=== PATIENT | male | born 1940 | race Caucasian/White ===

== ENCOUNTER → 2017-02-28 | Outpatient (CLI) | payer MEDICARE, BC ==
--- NOTE | 2017-02-28 15:59 | XR ---
EXAMINATION TYPE: XR ribs RT DATE OF EXAM: 02/28/2017 COMPARISON: Chest x-ray March 25, 2013 HISTORY: Right lateral lower rib pain after fall injury. TECHNIQUE: A frontal and oblique images of the right-sided ribs are acquired. FINDINGS: No acute displaced right-sided rib fractures are evident. Visualized right lung is clear. O verlying soft tissue is unremarkable. Abdominal aortic metallic stent graft is partially imaged. IMPRESSION: No acute displaced right-sided rib fractures are seen.
--- NOTE | 2017-03-01 08:18 | XR ---
EXAMINATION TYPE: XR thoracic spine 2V DATE OF EXAM: 02/28/2017 COMPARISON: NONE HISTORY: Low back pain, pain after fall TECHNIQUE: 2 view thoracic spine FINDINGS: Vertebral body alignment appears preserved. Mild narrowing of disc space in the lower thora cic spine is present. Vertebral body heights appear preserved. Spondylosis is present. Some scoliosis is in the frontal projection. There are 12 thoracic type vertebral bodies. The pedicles are intact. IMPRESSION: 1. No acute osseous abnormality. 2. Mild degenerative disc changes.
== END | disposition home or self-care (01) ==
LOC: RADXRMAIN 15:22
PROVIDERS: ATTEND Physical Medicine & Rehabilitation
DX: M51.34 Other intervertebral disc degeneration, thoracic region (principal); M15.9 Polyosteoarthritis, unspecified; Q67.5 Congenital deformity of spine; M47.817 Spondylosis without myelopathy or radiculopathy, lumbosacral region; M54.16 Radiculopathy, lumbar region
CPT/HCPCS: 72070

== ENCOUNTER → 2017-10-02 | Outpatient (CLI) | payer MEDICARE, BC ==
--- NOTE | 2017-10-02 14:52 | XR ---
EXAMINATION TYPE: XR chest 2V DATE OF EXAM: 10/02/2017 COMPARISON: 03/25/2013 HISTORY: Shortness of breath TECHNIQUE: Frontal and lateral views of the chest are obtained. FINDINGS: Scattered senescent parenchymal changes noted. Hyperinflation compatible with COPD. No evidence for infiltrate. No evidence for atelectasis. Heart size is stable. Mediastinal structures are stable and grossly unremarkable. No evidence for hilar prominence. Degenerative changes dorsal spine. IMPRESSION: 1. No evidence for acute pulmonary disease.
== END | disposition home or self-care (01) ==
LOC: RADXRMAIN 14:35
PROVIDERS: ATTEND Pediatrics
DX: R07.82 Intercostal pain (principal)
CPT/HCPCS: 71046

== ENCOUNTER 2018-05-12 21:08 | Observation (INO) | payer MEDICARE, BC ==
[2018-05-12 21:23] LABS: Glucose,Whole Blood 133 mg/dL (75-99)
--- NOTE | 2018-05-12 21:25 | ED ---
Altered Mental Status HPI - General Chief Complaint: Altered Mental Status Stated Complaint: MED REACTION Time Seen by Provider: 05/12/18 21:20 Source: EMS Mode of arrival: EMS Limitations: no limitations - History of Present Illness Initial Comments: Jace is an 78-year-old male who is brought to the emergency department today by his son for evaluation of altered mental status. Son reports that he visited them on and his father was doing well. The patient reports that on Sunday he got in the shower but he got very dizzy and was unable to get out of the shower so he laid down on the bathtub. Son reports that he found his father in the bathtub today, he was covered in his own urine. The son helped him cleanup and brought him to the ER for evaluation. Son reports that his father seems to be very confused, seems to be hallucinating, is saying things that don't make sense and his speech seems very slurred. The patient and his son are also accompanied by the patient's however she has Alzheimer 's and offers no meaningful history. The patient seems confused, he doesn't understand why he is here. He states that he is not wearing his hearing aids but that he can hear all of the sound effects. He also reports that he was seeing people on the belle in his bathroom. - Related Data Home Medications Medication Instructions Recorded Confirmed Cyclobenzaprine [Flexeril] 10 mg PO HS 01/11/14 10/08/14 Glimepiride [Amaryl] 4 mg PO DAILY 01/11/14 10/08/14 Propranolol [Inderal] 40 mg PO BID 01/11/14 10/08/14 Simvastatin [Zocor] 40 mg PO DAILY 01/11/14 10/08/14 traZODone HCL 200 mg PO HS 01/11/14 10/08/14 Fluticasone Propionate [Flonase 1 spray EA NOSTRIL DAILY 10/06/14 10/08/14 Allergy Relief] metFORMIN HCL [Glucophage] 1,000 mg PO BID 10/06/14 10/08/14 Allergies Allergy/AdvReac Type Severity Reaction Status Date / Time amoxicillin [Amoxicillin] Allergy Nausea & Verified 10/06/14 15:42 Vomiting & Diarrhea Review of Systems ROS Statement: Those systems with pertinent positive or pertinent negative responses have been documented in the HPI. ROS Other: All systems not noted in ROS Statement are negative. Limitations: ROS unobtainable due to patients medical condition Past Medical History Past Medical History: Cancer, Diabetes Mellitus, Hearing Disorder / Deafness, Hypertension, Rheumatoid Arthritis (RA) Additional Past Medical History / Comment(s): chronic headaches due to head injury years ago, AAA-dr. gamez, DJD,back pain, skin cancer, blood in stool , History of Any Multi-Drug Resistant Organisms: MRSA, VRE Date of last positivie culture/infection: patient does not know MDRO Source:: patient does not know Past Surgical History: Adenoidectomy, Joint Replacement, Tonsillectomy Additional Past Surgical History / Comment(s): left hip, left knee replaced, Past Anesthesia/Blood Transfusion Reactions: No Reported Reaction Past Psychological History: No Psychological Hx Reported Smoking Status: Former smoker General Exam - General Exam Comments Initial Comments: Physical Exam GENERAL: Elderly male in no acute distress HENT: Normocephalic, Atraumatic. EYES: EOMI Right pupil is approximately 1 mm larger than left however both are reactive to light and accommodation PULMONARY: Unlabored respirations. No audible rales rhonchi or wheezing was noted. CARDIOVASCULAR: Bradycardic, regular, no murmurs Warm and well-perfused extremities ABDOMEN: Soft and nontender with normal bowel sounds. SKIN: Skin is clear with no lesions or rashes and otherwise unremarkable. : Deferred NEUROLOGIC: Patient is alert and oriented x3. Moving all extremities spontaneously MUSCULOSKELETAL: Normal extremities with adequate strength and full range of motion. No lower extremity swelling or edema. No calf tenderness. PSYCHIATRIC: Normal psychiatric evaluation. Limitations: no limitations Limitations: no limitations Course Vital Signs 05/12/18 05/12/18 21:10 22:48 Temperature 97.7 F Pulse Rate 59 L 58 L Respiratory 18 17 Rate Blood Pressure 184/70 144/70 O2 Sat by Pulse 95 100 Oximetry Medical Decision Making - Medical Decision Making The patient was seen and evaluated history is obtained from the patient as well as his son at bedside History is significantly limited as the patient appears to be confused, his with Alzheimer's offers no meaningful history, the son last saw the patient on and it is concerning that the patient may have been laying in a bathtub since Sunday Labs and imaging were ordered Labs with no significant abnormalities, creatinine kinase is mildly elevated which is consistent with the history of the patient laying in a single position for multiple days CT head with no abnormalities suggestive of acute intracranial process Patient has been unable to urinate, patient was straight cathed for urinalysis Urinalysis no evidence of acute infection Considering the patient's altered mental status, slurred speech and don't feel that he is safe to go home, I do feel he does warrant further evaluation. Patient and his son are agreeable to this. Admission orders were placed with a consult to neurology for the slurred speech and altered mental status. - Lab Data Result diagrams: 05/12/18 21:26 05/12/18 21:26 Lab Results 05/12/18 05/12/18 05/12/18 Range/Units 21:22 21:26 21:26 WBC 9.3 (3.8-10.6) k/uL RBC 5.11 (4.30-5.90) m/uL Hgb 15.9 (13.0-17.5) gm/dL Hct 47.6 (39.0-53.0) % MCV 93.2 (80.0-100.0) fL MCH 31.1 (25.0-35.0) pg MCHC 33.3 (31.0-37.0) g/dL RDW 12.4 (11.5-15.5) % Plt Count 235 (150-450) k/uL Neutrophils % 82 % Lymphocytes % 11 % Monocytes % 5 % Eosinophils % 1 % Basophils % 0 % Neutrophils # 7.7 (1.3-7.7) k/uL Lymphocytes # 1.0 (1.0-4.8) k/uL Monocytes # 0.4 (0-1.0) k/uL Eosinophils # 0.1 (0-0.7) k/uL Basophils # 0.0 (0-0.2) k/uL PT (9.0-12.0) sec INR (<1.2) APTT (22.0-30.0) sec Sodium 139 (137-145) mmol/L Potassium 4.3 (3.5-5.1) mmol/L Chloride 101 (98-107) mmol/L Carbon Dioxide 27 (22-30) mmol/L Anion Gap 11 mmol/L BUN 18 (9-20) mg/dL Creatinine 1.07 (0.66-1.25) mg/dL Est GFR (CKD-EPI)AfAm 76 (>60 ml/min/1.73 sqM) Est GFR (CKD-EPI)NonAf 66 (>60 ml/min/1.73 sqM) Glucose 136 H (74-99) mg/dL POC Glucose (mg/dL) 133 H (75-99) mg/dL POC Glu [employer] Marketing Specialist ID Linda Mortensen Plasma Lactic Acid Fredrick (0.7-2.0) mmol/L Calcium 9.5 (8.4-10.2) mg/dL Total Bilirubin 0.7 (0.2-1.3) mg/dL AST 23 (17-59) U/L ALT 17 L (21-72) U/L Alkaline Phosphatase 50 (38-126) U/L Creatine Kinase 279 H (55-170) U/L Troponin I (0.000-0.034) ng/mL Total Protein 7.6 (6.3-8.2) g/dL Albumin 4.4 (3.5-5.0) g/dL Urine Color Urine Appearance (Clear) Urine pH (5.0-8.0) Ur Specific [place] (1.001-1.035) Urine Protein (Negative) Urine Glucose (UA) (Negative) Urine Ketones (Negative) Urine Blood (Negative) Urine Nitrite (Negative) Urine Bilirubin (Negative) Urine Urobilinogen (<2.0) mg/dL Ur Leukocyte Esterase (Negative) 05/12/18 05/12/18 05/12/18 Range/Units 21:26 21:26 22:38 WBC (3.8-10.6) k/uL RBC (4.30-5.90) m/uL Hgb (13.0-17.5) gm/dL Hct (39.0-53.0) % MCV (80.0-100.0) fL MCH (25.0-35.0) pg MCHC (31.0-37.0) g/dL RDW (11.5-15.5) % Plt Count (150-450) k/uL Neutrophils % % Lymphocytes % % Monocytes % % Eosinophils % % Basophils % % Neutrophils # (1.3-7.7) k/uL Lymphocytes # (1.0-4.8) k/uL Monocytes # (0-1.0) k/uL Eosinophils # (0-0.7) k/uL Basophils # (0-0.2) k/uL PT 11.1 (9.0-12.0) sec INR 1.1 (<1.2) APTT 24.5 (22.0-30.0) sec Sodium (137-145) mmol/L Potassium (3.5-5.1) mmol/L Chloride (98-107) mmol/L Carbon Dioxide (22-30) mmol/L Anion Gap mmol/L BUN (9-20) mg/dL Creatinine (0.66-1.25) mg/dL Est GFR (CKD-EPI)AfAm (>60 ml/min/1.73 sqM) Est GFR (CKD-EPI)NonAf (>60 ml/min/1.73 sqM) Glucose (74-99) mg/dL POC Glucose (mg/dL) (75-99) mg/dL POC Glu [employer] Marketing Specialist ID Plasma Lactic Acid Fredrick 1.2 (0.7-2.0) mmol/L Calcium (8.4-10.2) mg/dL Total Bilirubin (0.2-1.3) mg/dL AST (17-59) U/L ALT (21-72) U/L Alkaline Phosphatase (38-126) U/L Creatine Kinase (55-170) U/L Troponin I <0.012 (0.000-0.034) ng/mL Total Protein (6.3-8.2) g/dL Albumin (3.5-5.0) g/dL Urine Color Urine Appearance (Clear) Urine pH (5.0-8.0) Ur Specific [place] (1.001-1.035) Urine Protein (Negative) Urine Glucose (UA) (Negative) Urine Ketones (Negative) Urine Blood (Negative) Urine Nitrite (Negative) Urine Bilirubin (Negative) Urine Urobilinogen (<2.0) mg/dL Ur Leukocyte Esterase (Negative) 05/12/18 Range/Units 23:10 WBC (3.8-10.6) k/uL RBC (4.30-5.90) m/uL Hgb (13.0-17.5) gm/dL Hct (39.0-53.0) % MCV (80.0-100.0) fL MCH (25.0-35.0) pg MCHC (31.0-37.0) g/dL RDW (11.5-15.5) % Plt Count (150-450) k/uL Neutrophils % % Lymphocytes % % Monocytes % % Eosinophils % % Basophils % % Neutrophils # (1.3-7.7) k/uL Lymphocytes # (1.0-4.8) k/uL Monocytes # (0-1.0) k/uL Eosinophils # (0-0.7) k/uL Basophils # (0-0.2) k/uL PT (9.0-12.0) sec INR (<1.2) APTT (22.0-30.0) sec Sodium (137-145) mmol/L Potassium (3.5-5.1) mmol/L Chloride (98-107) mmol/L Carbon Dioxide (22-30) mmol/L Anion Gap mmol/L BUN (9-20) mg/dL Creatinine (0.66-1.25) mg/dL Est GFR (CKD-EPI)AfAm (>60 ml/min/1.73 sqM) Est GFR (CKD-EPI)NonAf (>60 ml/min/1.73 sqM) Glucose (74-99) mg/dL POC Glucose (mg/dL) (75-99) mg/dL POC Glu [employer] Marketing Specialist ID Plasma Lactic Acid Fredrick (0.7-2.0) mmol/L Calcium (8.4-10.2) mg/dL Total Bilirubin (0.2-1.3) mg/dL AST (17-59) U/L ALT (21-72) U/L Alkaline Phosphatase (38-126) U/L Creatine Kinase (55-170) U/L Troponin I (0.000-0.034) ng/mL Total Protein (6.3-8.2) g/dL Albumin (3.5-5.0) g/dL Urine Color Light Yellow Urine Appearance Clear (Clear) Urine pH 5.0 (5.0-8.0) Ur Specific [place] 1.005 (1.001-1.035) Urine Protein Negative (Negative) Urine Glucose (UA) Negative (Negative) Urine Ketones Negative (Negative) Urine Blood Negative (Negative) Urine Nitrite Negative (Negative) Urine Bilirubin Negative (Negative) Urine Urobilinogen <2.0 (<2.0) mg/dL Ur Leukocyte Esterase Negative (Negative) - EKG Data -: EKG Interpreted by Me EKG Comments: EKG obtained at 9:47 PM, rate is 57, rhythm is sinus bradycardia, there is a normal axis, normal intervals, no acute ST elevations or depressions no evidence of acute ischemia or infarction. Disposition Clinical Impression: Hallucination, Altered mental state, Slurred speech, Elevated creatine kinase Disposition: ADMITTED IP TO THIS HOSP Condition: Serious Is patient prescribed a controlled substance at d/c from ED?: No Referrals: Robert Ellis MD [Primary Care Provider] - 1-2 days
[2018-05-12 21:55] LABS: Basophils % (A) 0 %; Eosinophils # (A) 0.1 k/uL (0-0.7); Eosinophils % (A) 1 %; HCT 47.6 % (39.0-53.0); HGB 15.9 gm/dL (13.0-17.5); Lymphocytes % (A) 11 %; MCH 31.1 pg (25.0-35.0); MCHC 33.3 g/dL (31.0-37.0); MCV 93.2 fL (80.0-100.0); Mean Platelet Volume 7.1; Monocytes # (A) 0.4 k/uL (0-1.0); Monocytes % (A) 5 %; Neutrophils # (A) 7.7 k/uL (1.3-7.7); Neutrophils % (A) 82 %; Platelet Count 235 k/uL (150-450); RBC 5.11 m/uL (4.30-5.90); RDW 12.4 % (11.5-15.5); WBC 9.3 k/uL (3.8-10.6)
[2018-05-12 21:59] LABS: INR 1.1 (<1.2); Partial Thromboplastin Time 24.5 sec (22.0-30.0); Prothrombin Time 11.1 sec (9.0-12.0)
[2018-05-12] MEDS: SODIUM CHLORIDE 0.9% 500 ML 500 ML IV SCH ×2 (22:00→22:47)
[2018-05-12 22:17] LABS: Albumin 4.4 g/dL (3.5-5.0); Calcium 9.5 mg/dL (8.4-10.2); Potassium 4.3 mmol/L (3.5-5.1); Total Bilirubin 0.7 mg/dL (0.2-1.3); Total Protein 7.6 g/dL (6.3-8.2)
--- NOTE | 2018-05-12 22:25 | CT ---
EXAMINATION TYPE: CT brain александр regalado DATE OF EXAM: 05/12/2018 COMPARISON: None HISTORY: CT DLP: mGycm Automated exposure control for dose reduction was used. TECHNIQUE: CT scan of the head and cervical spine are performed without contrast. FINDINGS: There is cerebral cortical atrophy. There is no mass effect nor midline shift. There is n o sign of intracranial hemorrhage. Calvarium is intact. There is mild straightening of the cervical spine. There is degenerative disc space narrowing at C5-6 with spurring. Posterior elements are intact. Skull base is intact. There is no evidence of a fractu re. There is no cervical paraspinal mass. IMPRESSION: Cerebral atrophy. No acute intracranial abnormality. Mild spondylotic changes in the cervical spine. No fracture seen.
[2018-05-12] MEDS ORDERED: NALOXONE 0.4 MG/ML 1 ML VIAL IV PRN (23:31)
[2018-05-12 23:40] LABS: Appearance,Urine Clear (Clear); Bilirubin,Urine Negative (Negative); Blood,Urine Negative (Negative); Color,Urine Light Yellow; Glucose,Urine (UA) Negative (Negative); Ketones,Urine Negative (Negative); Leukocyte Esterase,Urine Negative (Negative); Nitrite,Urine Negative (Negative); Protein,Urine Negative (Negative); Specific Gravity,Urine 1.005 (1.001-1.035); Urobilinogen,Urine <2.0 mg/dL (<2.0)
--- NOTE | 2018-05-13 00:28 | XR ---
EXAMINATION TYPE: XR elbow complete LT DATE OF EXAM: 05/13/2018 COMPARISON: NONE HISTORY: Elbow pain TECHNIQUE: 3 views FINDINGS: I see no fracture nor dislocation. There is spurring on the olecranon process of the ulna. There is no sign of elbow joint effusion. There is spurring at the coronoid process. IMPRESSION: No acute abnormality of the left elbow.
[2018-05-13 01:08] VITALS: BMI 22.3
[2018-05-13] MEDS: PROPRANOLOL 40 MG TAB PO SCH ×3 (01:13→20:58)
[2018-05-13] MEDS: SODIUM CHLORIDE 0.9% 1,000 ML IV SCH ×3 (01:14→20:58)
[2018-05-13 07:10] LABS: Glucose,Whole Blood 114 mg/dL (75-99)
[2018-05-13] MEDS: INSULIN ASPART 100 UNIT/ML 1 ML 10 ML VIAL SQ SCH ×4 (09:47→20:46)
[2018-05-13 11:31] LABS: Glucose,Whole Blood 119 mg/dL (75-99)
[2018-05-13 12:13] LABS: Hemoglobin A1C 7.4 % (4.0-6.0)
[2018-05-13 17:25] LABS: Glucose,Whole Blood 109 mg/dL (75-99)
--- NOTE | 2018-05-13 19:40 | P.CNNES ---
History of Present Illness Consult date: 05/13/18 History of Present Illness: The patient is an 78-year-old right-handed white male who was brought to the emergency room by his son for altered mental status. The patient lives at home with his who has Alzheimer's disease. According to the on the patient was found confused with slurred speech. The patient reports that he had fallen and slipped in the bathtub and he called his son with his portable phone to help calm help him. He bruised his elbows on his knees. He denied having had slurred speech. He denied any confusion. Apparently his son reported that he had been very confused and hallucinating. Patient states he did not hurt himself from his fall and he did not hit his head. He states he only bruised his knees and elbows. Owing to the ER record the patient was confused when he presented to the emergency room. He was admitted to the hospital with altered mental status. He had a CAT scan of the brain which showed atrophy. He had a CAT scan of the cervical spine which showed some mild spondylitic changes no fracture. Review of Systems Constitutional: Denies chills, Denies fever Eyes: denies blurred vision, denies pain Ears, nose, mouth and throat: Denies headache, Denies sore throat Cardiovascular: Reports as per HPI Respiratory: Reports as per HPI Gastrointestinal: Reports as per HPI Musculoskeletal: Denies myalgias Neurological: Denies numbness, Denies weakness Past Medical History Past Medical History: Cancer, Diabetes Mellitus, Hearing Disorder / Deafness, Hypertension, Rheumatoid Arthritis (RA) Additional Past Medical History / Comment(s): chronic headaches due to head injury years ago, MAYLIN-dr. gamez, YESENIA,back pain, skin cancer, blood in stool , History of Any Multi-Drug Resistant Organisms: None Reported Date of last positivie culture/infection: None MDRO Source:: None Past Surgical History: Adenoidectomy, Joint Replacement, Tonsillectomy Additional Past Surgical History / Comment(s): left hip, left knee replaced, Past Anesthesia/Blood Transfusion Reactions: No Reported Reaction Past Psychological History: No Psychological Hx Reported Smoking Status: Former smoker Past Alcohol Use History: None Reported Past Drug Use History: None Reported - Past Family History Son(s) Additional Family Medical History / Comment(s): unable to obtain patient not good historian Mother Additional Family Medical History / Comment(s): unable to obtain patient not a good historian Medications and Allergies Home Medications Medication Instructions Recorded Confirmed Type Cyclobenzaprine [Flexeril] 10 mg PO TID 01/11/14 05/13/18 History Propranolol [Inderal] 40 mg PO BID 01/11/14 05/13/18 History DULoxetine HCL [Cymbalta] 60 mg PO DAILY 05/13/18 05/13/18 History Hydrocodone/Acetaminophen [[place] 1 tab PO Q12H 05/13/18 05/13/18 History 10-325] Pregabalin [Lyrica] 100 mg PO TID 05/13/18 05/13/18 History metFORMIN HCL 1,000 mg PO BID 05/13/18 05/13/18 History traZODone HCL 300 mg PO HS 05/13/18 05/13/18 History Allergies Allergy/AdvReac Type Severity Reaction Status Date / Time amoxicillin [Amoxicillin] Allergy Nausea & Verified 05/13/18 10:52 Vomiting & Diarrhea Physical Examination - Vital Signs Vital Signs: Vital Signs Temp Pulse Pulse Resp BP BP BP 05/13/18 15:43 98.8 F 73 18 148/85 05/13/18 15:40 124/69 05/13/18 15:38 05/13/18 15:35 16 05/13/18 07:00 98.1 F 16 05/13/18 00:04 60 18 156/81 05/12/18 22:48 58 L 17 144/70 05/12/18 21:10 97.7 F 59 L 18 184/70 BP BP Pulse Ox 05/13/18 15:43 93 L 05/13/18 15:40 05/13/18 15:38 155/76 05/13/18 15:35 05/13/18 07:00 144/82 97 05/13/18 00:04 95 05/12/18 22:48 100 05/12/18 21:10 95 Intake and Output 05/13/18 05/13/18 05/13/18 06:59 14:59 22:59 Intake Total 400 800 Output Total 200 700 Balance 200 100 Intake: Intake, IV Titration 400 800 Amount Sodium Chloride 0.9% 1, 400 800 000 ml @ 100 mls/hr IV . Q10H [facility] Rx#:[id number] Output: Urine 200 700 Straight 200 Other: # Voids 1 Weight 72.575 kg 72.575 kg - Constitutional General appearance: average body habitus, cooperative - EENT EENT: PERRL - Respiratory Respiratory: lungs clear - Cardiovascular Cardiovascular: regular rate, normal S1 - Neurologic Neurologic examination: Mental status: He was awake he was alert he was oriented to the month and the year and the city and the place. He knew he was in the hospital but he thought it was [facility]. He was able to do simple addition and subtraction. He was able to spell world forward but had missed one letter when spelling it backwards. He was able to give his date of he had short-term memory loss to 2 out of 3 in 1 minute recall asymptomatic Cranial nerve examination pupils were 3 mm equal and reactive there was no facial asymmetry extraocular movements were intact visual flores were full he had reduced hearing Motor examination: 5 out of 5 throughout Sensory examination: Intact to light touch Coordination: Finger to nose intact Gait: Could not be tested Results - Laboratory Findings CBC and BMP: 05/12/18 21:26 05/12/18 21:26 Abnormal Lab Findings: Abnormal Labs 05/12/18 05/12/18 05/12/18 21:22 21:26 21:26 Glucose 136 H POC Glucose (mg/dL) 133 H Hemoglobin A1c 7.4 H ALT 17 L Creatine Kinase 279 H 05/13/18 05/13/18 05/13/18 07:08 11:30 17:21 Glucose POC Glucose (mg/dL) 114 H 119 H 109 H Hemoglobin A1c ALT Creatine Kinase Assessment and Plan (1) Altered mental state Current Visit: Yes Status: Acute SNOMED Code(s): 160705462 Plan: The patient is off 78-year-old man with some cognitive deficit who presents to the hospital with episode of altered mental status. Currently he is alert and oriented 3 but does have some mild cognitive deficit. There is no evidence of delirium or hallucinations at present. It is unclear whether the patient had passed out over the duration of time he had been in the tub. If he has passed out , he should not be operating a motorized vehicle until spell free for 6 months. Recommend EEG. The patient had a CT of the brain which was unremarkable. Recommend carotid ultrasound.
[2018-05-13 20:21] LABS: Glucose,Whole Blood 116 mg/dL (75-99)
[2018-05-13] MEDS: CYCLOBENZAPRINE 10 MG TAB PO SCH (20:59)
[2018-05-13] MEDS ORDERED: traZODone HCL 100 MG TAB PO SCH (21:00)
[2018-05-13] MEDS: PREGABALIN 100 MG CAP PO SCH (21:01)
[2018-05-13] MEDS: ENOXAPARIN 40 MG/0.4 ML SYRINGE SQ SCH (21:01)
[2018-05-13] MEDS: HYDROcodone/APAP 10-325MG 1 EACH TAB PO SCH (21:01)
--- NOTE | 2018-05-13 23:02 | HP ---
HISTORY AND PHYSICAL DATE OF ADMISSION: 05/13/2018. DATE OF SERVICE: 05/13/2018. PRESENTING COMPLAINT: Acute confusion. HISTORY OF PRESENTING COMPLAINT: This is a 78-year-old patient who follows with Dr. Ellis. Chronic stable medical conditions include diabetes, hard of hearing, hypertension, rheumatoid arthritis, osteoarthritis, and AAA that is being followed. History is obtained by the son at the bedside. The patient lives with his at home, latter of which has dementia and the patient is the caregiver. The patient is normally pretty sharp and able to get around. He takes many antipsychotics. The patient presented to the ER yesterday evening. The patient was visited by his son on and the patient does not remember how he got about exactly. The patient told the ER that he got in the shower, got dizzy, and was unable to get out of the shower. He laid down in the bathtub. The son found him in the bathtub on the day of presentation, yesterday. He was covered in his urine. The patient was brought in. Patient was rather confused, was hallucinating and saying things that did not make sense and speech was somewhat slurred. The patient did not know why he was in the ER. He was also seeing people in the bathroom wall. Earlier today when the nurse visited the patient was back to normal and was able to communicate. There was no trouble with swallowing. No focal weakness. No weakness in the arms or legs. Initial CT scan did not show any stroke. The patient's and [id number] were also present in the room. REVIEW OF SYSTEMS: CONSTITUTIONAL: None. HEENT: Decreased hearing. RESPIRATORY: None. CARDIOVASCULAR: None. GASTROINTESTINAL: None. MUSCULOSKELETAL: Arthritic pain in joints. DERMATOLOGICAL: None. HEMATOLOGICAL: None. LYMPHATICS: None. PSYCHIATRY: As above. NEUROLOGIC: As above. PAST MEDICAL HISTORY: Diabetes, hard of hearing, hypertension, rheumatoid arthritis, chronic headaches due to head injury years ago, AAA, being monitored, back pain for DJD. PAST SURGICAL HISTORY: Adenoidectomy, joint replacement, tonsillectomy, left hip surgery, left knee replaced. SOCIAL HISTORY: The patient stopped smoking 10 years ago. Smoked for several years. Alcohol occasionally. 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 Currently living with who has Alzheimer's. Does use a cane. FAMILY HISTORY: Unremarkable. MEDICATIONS: Home medications include: 1. Trazodone 300 mg at bedtime. 2. Metformin 1000 mg b.i.d. 3. Inderal 40 mg b.i.d. 4. Lyrica 100 mg b.i.d. 5. [place] 10 1 tablet every 12 hours. 6. Cymbalta 60 mg p.o. daily. 7. Flexeril 10 mg p.o. t.i.d. ALLERGIES: To AMOXICILLIN. PHYSICAL EXAMINATION: Temperature 98.8, pulse 73, respiratory 18, blood pressure 148/85, pulse ox 93 percent on room air. GENERAL APPEARANCE: Thin build, lying in bed, awake. EYES: Pupils equal. Conjunctivae normal. HEENT: External nose and ears normal. NECK: JVD not raised. Mass not palpable. Respiratory effort normal. LUNGS: Clear. CARDIOVASCULAR: 1st and 2nd heart sounds normal. No edema. ABDOMEN: Soft, nontender. Liver and spleen not palpable. LYMPHATICS: No lymph nodes palpable in the neck or axillae. PSYCHIATRY: Patient is answering questions appropriately. Alert, oriented x3. NEUROLOGIC: Pupils equal. Cranial nerves grossly intact. Power and sensation grossly intact. INVESTIGATIONS: White count 9.3, hemoglobin 15.9, platelets 235,000, potassium 4.3. BUN and creatinine normal. CT scan of the head and cervical spine shows some cerebral atrophy, nil acute. EKG tracing personally reviewed by me shows sinus rhythm. ASSESSMENT: 1. This is a patient who was found down in the tub, rather confused and hallucinating. This could be a side effect of his medications or combination thereof. The patient denies taking any extra medications. No obvious evidence of stroke. There are no focal symptoms. Seizure is still in the differential. 2. Diabetes type 2. 3. Essential hypertension. 4. Abdominal aortic aneurysm, being followed as an outpatient. 5. Primary osteoarthritis. PLAN: At this point, home medications are resumed. Neurology was consulted. EEG was ordered. We will also get a psychiatry opinion to evaluate the patient's antipsychotic medications, to see there is a significant effect from the same. Care was discussed with the patient and the son. Questions were answered. MMODL / IJN: [id number] /
[2018-05-14] MEDS: SODIUM CHLORIDE 0.9% 1,000 ML IV SCH ×2 (05:11→08:40)
[2018-05-14 06:53] LABS: Glucose,Whole Blood 142 mg/dL (75-99)
[2018-05-14] MEDS: metFORMIN 500 MG TAB PO SCH ×2 (08:31→18:16)
[2018-05-14] MEDS: CYCLOBENZAPRINE 10 MG TAB PO SCH (08:32)
[2018-05-14] MEDS: PROPRANOLOL 40 MG TAB PO SCH ×2 (08:32→20:33)
[2018-05-14] MEDS: DULoxetine HCL 60 MG CAPSULE.DR PO SCH (08:32)
[2018-05-14] MEDS: HYDROcodone/APAP 10-325MG 1 EACH TAB PO SCH ×2 (08:32→20:33)
[2018-05-14] MEDS: PREGABALIN 100 MG CAP PO SCH ×3 (08:32→20:33)
[2018-05-14] MEDS: INSULIN ASPART 100 UNIT/ML 1 ML 10 ML VIAL SQ SCH ×4 (08:33→20:29)
[2018-05-14] MEDS: ENOXAPARIN 40 MG/0.4 ML SYRINGE SQ SCH (08:34)
--- NOTE | 2018-05-14 08:45 | US ---
EXAMINATION TYPE: US carotid duplex BILAT DATE OF EXAM: 05/14/2018 COMPARISON: NONE CLINICAL HISTORY: Altered mental status. EXAM MEASUREMENTS: RIGHT: Peak Systolic Velocity (PSV) cm/sec ----- Right CCA: 51.9 ----- Right ICA: 60.1 ----- Right ECA: 116.7 ICA/CCA ratio: 1.2 RIGHT: End Diastole cm/sec ----- Right CCA: 4.6 ----- Right ICA: 16.5 ----- Right ECA: 8.3 LEFT: Peak Systolic Velocity (PSV) cm/sec ----- Left CCA: 64.6 ----- Left ICA: 62.0 ----- Left ECA: 112.7 ICA/CCA ratio: 1.0 LEFT: End Diastole cm/sec ----- Left CCA: 11.6 ----- Left ICA: 9.1 ----- Left ECA: 6.3 VERTEBRALS (direction of flow): Right Vertebral: Antegrade Left Vertebral: Antegrade Rhythm: Normal Moderate/severe amount of plaque visualized in bilateral bulbs. No elevated velocities visualized Grayscale, color Doppler, spectral Doppler imaging performed of the carotid arteries. Waveform analys is does not show significant stenosis of the proximal internal carotid arteries. IMPRESSION: No hemodynamic significant stenosis of the proximal internal carotid arteries bilaterall y by Doppler criteria, an indirect measurement of carotid stenosis.
[2018-05-14 11:29] LABS: Glucose,Whole Blood 164 mg/dL (75-99)
--- NOTE | 2018-05-14 14:30 | P.CN ---
Psychiatric Consult - . Consult date: 05/14/18 Consult:: 05/14/18 09:41 Evaluate psychiatric medication combinations?? Assessment and Plan Assessment: HPI: Jace is an 78-year-old male who is brought to the emergency department today by his son for evaluation of altered mental status. Son reports that he visited them on and his father was doing well. The patient reports that on Sunday he got in the shower but he got very dizzy and was unable to get out of the shower so he laid down on the bathtub. Son reports that he found his father in the bathtub today, he was covered in his own urine. The son helped him cleanup and brought him to the ER for evaluation. Son reports that his father seems to be very confused, seems to be hallucinating, is saying things that don't make sense and his speech seems very slurred. The patient and his son are also accompanied by the patient's however she has Alzheimer 's and offers no meaningful history. The patient seems confused, he doesn't understand why he is here. He states that he is not wearing his hearing aids but that he can hear all of the sound effects. He also reports that he was seeing people on the belle in his bathroom. - Related Data Home Medications Medication Instructions Recorded Confirmed Cyclobenzaprine [Flexeril] 10 mg PO HS 01/11/14 10/08/14 Glimepiride [Amaryl] 4 mg PO DAILY 01/11/14 10/08/14 Propranolol [Inderal] 40 mg PO BID 01/11/14 10/08/14 Simvastatin [Zocor] 40 mg PO DAILY 01/11/14 10/08/14 traZODone HCL 200 mg PO HS 01/11/14 10/08/14 Fluticasone Propionate [Flonase 1 spray EA NOSTRIL DAILY 10/06/14 10/08/14 Allergy Relief] metFORMIN HCL [Glucophage] 1,000 mg PO BID 10/06/14 10/08/14 Allergies Allergy/AdvReac Type Severity Reaction Status Date / Time amoxicillin [Amoxicillin] Allergy Nausea & Verified 10/06/14 15:42 Vomiting & Diarrhea Past Medical History Past Medical History: Cancer, Diabetes Mellitus, Hearing Disorder / Deafness, Hypertension, Rheumatoid Arthritis (RA) Additional Past Medical History / Comment(s): chronic headaches due to head injury years ago, AAA-dr. gamez, JULYD,back pain, skin cancer, blood in stool , History of Any Multi-Drug Resistant Organisms: MRSA, VRE Date of last positivie culture/infection: patient does not know MDRO Source:: patient does not know Past Surgical History: Adenoidectomy, Joint Replacement, Tonsillectomy Additional Past Surgical History / Comment(s): left hip, left knee replaced, Past Anesthesia/Blood Transfusion Reactions: No Reported Reaction Past Psychological History: No Psychological Hx Reported Smoking Status: Former smoker Mental Status Examination - General Appearance: [ casual,appears older than stated age Speech/Language: [slow, slurred, rambled, soft] Attitude/Behavior: [ guarded, irritable Mood: [anxious, elated, irritable, angry, fearful] Affect: incongruent, labile, blunted constricted] Orientation: [not time, person, place situation] Thought Content: [ obsessions] Risk Factors: [he is suicidal (ideations, plan), and/or Homicidal (ideations, plan), other] Perception: [wnl Thought Processes: concrete, circumstantial, tangential Concentration/Attention Span: [ impaired] [Per observation and interview with the patient] Recent Memory: [ impaired] [0 out of 3 in 3 minutes] Remote Memory: [wnl] [past events, as related history] Intelligence: [below average] [based on history, based on vocabulary, syntax, grammar, and content] Judgement: [poor] [per patient's behavior/history of present illness] Insight: [poor] [understanding severity of illness/history of present illness] Psychiatric impression: Combination of trazodone and Flexeril and elderly is on the beers last and not recommended. Especially Flexeril can make an octogenarian dizzy, postural hypertension, and cardiac arrhythmias since it is a tetracyclic compound summary to many of the tricyclic antidepressants.Stopped medications and added aricept. Psychiatric recommendations:he is unable to care himself and or his . He has early dementia and MRI/Neuropsych test for level of dementia Thank you for the consult Julian Cordoba D.O. PhD (1) Major depressive disorder with current active episode Current Visit: Yes Status: Acute Code(s): F32.9 - MAJOR DEPRESSIVE DISORDER , SINGLE EPISODE, UNSPECIFIED SNOMED Code(s): 562227668 (2) Dementia Current Visit: Yes Status: Acute Code(s): F03.90 - UNSPECIFIED DEMENTIA WITHOUT BEHAVIORAL DISTURBANCE SNOMED Code(s): 86777304 Time with Patient: Greater than 30
[2018-05-14 16:42] LABS: Glucose,Whole Blood 110 mg/dL (75-99)
[2018-05-14 20:20] LABS: Glucose,Whole Blood 93 mg/dL (75-99)
[2018-05-14] MEDS ORDERED: DONEPEZIL 5 MG TAB PO SCH (21:00)
--- NOTE | 2018-05-15 00:59 | PN ---
PROGRESS NOTE DATE OF SERVICE: 05/14/2018 PRESENTING COMPLAINT: Acute confusion. INTERVAL HISTORY: This patient presented with acute confusion, hallucinating. It is now felt to be a combination of his primary side effect of his medications, Flexeril and trazodone. The patient was seen by psychiatrist and these 2 medications were discontinued and patient was started on Aricept. The patient is feeling much better and rather normal communicating today. Stroke workup has otherwise been negative. REVIEW OF SYSTEMS: Done for constitutional, cardiovascular, GI, pulmonary; relevant findings as above. CURRENT MEDICATIONS: Reviewed. The patient was started on Aricept and patient's trazodone and Flexeril was discontinued. PHYSICAL EXAMINATION: VITAL SIGNS: Temperature 98, pulse 63, respiratory rate 16, blood pressure 178/82, pulse ox 93 percent on room air. GENERAL APPEARANCE: Lying in bed, more awake and communicative. EYES: Pupils equal. Conjunctivae normal. NECK: JVD not raised. Mass not palpable. RESPIRATORY: Effort normal. LUNGS: Clear. CARDIOVASCULAR: 1st and 2nd sounds, no edema. ABDOMEN: Soft, nontender. Liver and spleen not palpable. PSYCHIATRY: AO x3. Mood appropriate today. NEUROLOGICAL: No focal weakness. INVESTIGATIONS: Accu-Cheks are noted. Carotid Doppler negative. ASSESSMENT: 1. Acute delirium as a side effect of medications. The patient's Flexeril and trazodone was discontinued. 2. Diabetes mellitus type 2 on oral hypoglycemics. 3. Essential hypertension, uncontrolled. 4. Abdominal aortic aneurysm being followed as an outpatient. 5. Primary osteoarthritis. 6. Mild cognitive impairment. PLAN: Patient's trazodone and Flexeril have been discontinued. For better blood pressure control, we will stop the patient's Inderal and start the patient on lisinopril hydrochlorothiazide 20/12.5 one tab twice a day. I had a very lengthy discussion with the patient, his son and and the fact that the patient will have to have probably a more supervised setting and the son and the patient intense long discussion. Many questions were answered. The patient is somewhat adamant to the idea right now. We will see how the new change of medication takes place. Total time spent today was about 40 minutes with over 25 minutes of discussion. MMODL / IJN: [id number] /
[2018-05-15 01:52] VITALS: RESP 16
[2018-05-15] MEDS: LISINOPRIL-HCTZ 20-12.5 MG 1 EACH TAB PO SCH ×2 (05:44→07:45)
[2018-05-15 06:54] LABS: Glucose,Whole Blood 104 mg/dL (75-99)
[2018-05-15 07:25] VITALS: BP 142/78; PULSE 54; TEMP 96.4
[2018-05-15] MEDS: INSULIN ASPART 100 UNIT/ML 1 ML 10 ML VIAL SQ SCH ×2 (07:33→12:04)
[2018-05-15] MEDS: metFORMIN 500 MG TAB PO SCH (07:43)
[2018-05-15] MEDS: PREGABALIN 100 MG CAP PO SCH (07:44)
[2018-05-15] MEDS: DULoxetine HCL 60 MG CAPSULE.DR PO SCH (07:44)
[2018-05-15] MEDS: ENOXAPARIN 40 MG/0.4 ML SYRINGE SQ SCH ×2 (07:46→07:49)
[2018-05-15] MEDS: HYDROcodone/APAP 10-325MG 1 EACH TAB PO SCH (07:46)
[2018-05-15 11:16] LABS: Glucose,Whole Blood 106 mg/dL (75-99)
[2018-05-15 12:15] LABS: T4, Free (Free Thyroxine) 1.49 ng/dL (0.78-2.19)
--- NOTE | 2018-05-15 22:48 | DS ---
DISCHARGE SUMMARY FINAL DIAGNOSES: 1. Acute delirium with side effect of medications. 2. Diabetes mellitus type 2 on oral hypoglycemics. 3. Essential hypertension, uncontrolled. 4. Abdominal aortic aneurysm being followed as an outpatient. 5. Primary osteoarthritis. 6. 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 HOSPITAL COURSE: This patient presented with acute confusion, fell out, hallucinating, somewhat delirious as per the son. Stroke workup was negative. It was felt this is more of a side effect of medications. The patient is seen by Dr. Cordoba from Psychiatry. Patient's Flexeril and trazodone was discontinued. The patient did rather well after that. Small dose of Aricept was started. Care was discussed at length with the patient and the son and the the previous day and today again spoke to the patient at length about how to coordinate things at home with some support, which she is more agreeable to today. On examination, temperature 96.4, pulse 54, respirations 16, blood pressure 142/78, pulse ox 94 percent on room air. Lungs fair entry. CARDIOVASCULAR: First and second sounds normal. Free T4 is normal. UA was negative. The patient's carotid Doppler did not show any significant stenosis. CT scan of the head and spine was negative. CONSULTATION: Dr. Kirkpatrick from Neurology, Dr. Rosario from Psychiatry. DISCHARGE MEDICATIONS: 1. Cymbalta 60 mg p.o. daily. 2. [place] 10 1 tablet q.12h. 3. Lyrica 100 mg p.o. t.i.d. 4. Metformin 1000 mg b.i.d. 5. Aricept 5 mg q.h.s. 6. Zestoretic 30/05.5 one tab p.o. b.i.d. 7. Discontinued was Flexeril, Inderal and trazodone was discontinued. 8. New medications include Zestoretic and Aricept. The patient is cleared by Dr. Kirkpatrick and Dr. Cordoba. FOLLOWUP: Follow up with Dr. Ellis in 3 days, follow up with Dr. Letha Kirkpatrick in 2 weeks. Discussion and discharge planning more than [address] Ellis. MMODL / IJN: [id number] /
--- NOTE | 2018-05-17 17:36 | EEG ---
ELECTROENCEPHALOGRAM REPORT DATE OF EE05/14/2018 ELECTROENCEPHALOGRAPHIC EXAMINATION REPORT: INDICATION FOR EXAMINATION: This patient is an 78-year-old male being evaluated for altered mental status and confusion. Patient presents with slurred speech and weakness. AGE: [age]. EEG FINDINGS: A routine 21-channel awake digital EEG recording was accomplished utilizing the 10-20 international system with bipolar and referential montages. The background activity in the most alert resting state consists of a low to medium amplitude, poorly developed and poorly sustained 5-6 Hz activity over the posterior head regions. This posterior rhythm attenuates to eye opening. There is a small amount of low amplitude 18-20 Hz beta activity seen maximally over the anterior head regions. Muscle and movement artifact was observed on a few occasions during the tracing. Hyperventilation was not performed. Photic stimulation at flash frequencies of 2-30 Hz produced a minimal occipital driving response. No epileptiform discharges were seen. IMPRESSION: This EEG gives evidence of a severe widespread diffuse disturbance in cerebral function. The EEG failed to reveal any focal, lateralized, or epileptiform abnormalities. Clinical correlation is recommended. MMODL / IJN: [id number] /
== END 2018-05-15 15:57 | disposition home or self-care (01) ==
LOC: EC 21:08 → 4SSUR 05-13 00:10
PROVIDERS: ADMIT Hospitalist; ATTEND Hospitalist
DX: R41.0 Disorientation, unspecified (principal); T48.1X5A Adverse effect of skeletal muscle relaxants [neuromuscular blocking agents], initial encounter; M19.91 Primary osteoarthritis, unspecified site; G31.84 Mild cognitive impairment of uncertain or unknown etiology; T43.215A Adverse effect of selective serotonin and norepinephrine reuptake inhibitors, initial encounter; E11.9 Type 2 diabetes mellitus without complications; H91.90 Unspecified hearing loss, unspecified ear; M06.9 Rheumatoid arthritis, unspecified; I10 Essential (primary) hypertension; I71.4 Abdominal aortic aneurysm, without rupture; Z96.652 Presence of left artificial knee joint; Z90.49 Acquired absence of other specified parts of digestive tract; Z79.84 Long term (current) use of oral hypoglycemic drugs; Z79.899 Other long term (current) drug therapy; Z88.0 Allergy status to penicillin; W18.2XXA Fall in (into) shower or empty bathtub, initial encounter; Y92.002 Bathroom of unspecified non-institutional (private) residence as the place of occurrence of the external cause; Z85.828 Personal history of other malignant neoplasm of skin; Z87.891 Personal history of nicotine dependence
CPT/HCPCS: 96361 ×2; 96360; 99285; 36415; 95819; 93005; 84439; 80053; 84443; 82607; 82550; 83605; 84484; 85025; 85610; 85730; 81003; 87040; 87086; 83036; 73080; 93880; 72125; 70450; G0378 ×3

== ENCOUNTER 2018-07-27 12:33 | Observation (INO) | payer MEDICARE, BC ==
[2018-07-27] MEDS ORDERED: SODIUM CHLORIDE 0.9% 1,000 ML IV STA (13:49)
--- NOTE | 2018-07-27 14:14 | ED ---
Arrhythmia/Palpitations HPI - General Chief Complaint: Arrhythmia/Palpitations Stated Complaint: syncope/chest pain/sweats Time Seen by Provider: 07/27/18 13:28 Source: patient, RN notes reviewed Mode of arrival: wheelchair Limitations: no limitations - History of Present Illness Initial Comments: Is a 78-year-old male who states he had the onset yesterday of palpitations sweats. He states today he had a recurrent episode. He states he had difficulty, while trying he breakfast , of swallowing he developed palpitations sweats. He states he try to go the bathroom and trouble getting air neck could not get off the toilet. He believes he may have passed out. He denies any chest pain headache blurry vision. He states he has similar episodes several months ago. Also additionally he's had diarrhea and/or loose stools for past 2 weeks intermittently. This have a history of diabetes hypertension he is hard of hearing. MD Complaint: rapid heart beat, palpitations - Related Data Home Medications Medication Instructions Recorded Confirmed DULoxetine HCL [Cymbalta] 60 mg PO DAILY 05/13/18 07/27/18 Pregabalin [Lyrica] 100 mg PO TID 05/13/18 07/27/18 metFORMIN HCL 1,000 mg PO BID 05/13/18 07/27/18 Cholecalciferol [Vitamin D3] 5,000 unit PO DAILY 07/27/18 07/27/18 Lisinopril-Hctz 20-12.5 mg 1 tab PO BID 07/27/18 07/27/18 [Zestoretic 20-12.5] Tamsulosin [Flomax] 0.4 mg PO DAILY 07/27/18 07/27/18 Zolpidem [Ambien] 10 mg PO HS 07/27/18 07/27/18 Previous Rx's Medication Instructions Recorded Donepezil [Aricept] 5 mg PO HS #30 tab 05/15/18 Allergies Allergy/AdvReac Type Severity Reaction Status Date / Time amoxicillin [Amoxicillin] Allergy Nausea & Verified 07/27/18 13:17 Vomiting & Diarrhea morphine Allergy Unknown Verified 07/27/18 13:17 Review of Systems ROS Statement: Those systems with pertinent positive or pertinent negative responses have been documented in the HPI. ROS Other: All systems not noted in ROS Statement are negative. Past Medical History Past Medical History: Cancer, Diabetes Mellitus, Hearing Disorder / Deafness, Hypertension, Rheumatoid Arthritis (RA) Additional Past Medical History / Comment(s): chronic headaches due to head injury years ago, AAA-dr. gamez, YESENIA,back pain, skin cancer, blood in stool , History of Any Multi-Drug Resistant Organisms: None Reported Date of last positivie culture/infection: None MDRO Source:: None Past Surgical History: Adenoidectomy, Joint Replacement, Tonsillectomy Additional Past Surgical History / Comment(s): left hip, left knee replaced, Past Anesthesia/Blood Transfusion Reactions: No Reported Reaction Past Psychological History: No Psychological Hx Reported Smoking Status: Former smoker Past Alcohol Use History: None Reported Past Drug Use History: None Reported - Past Family History Son(s) Additional Family Medical History / Comment(s): unable to obtain patient not good historian Mother Additional Family Medical History / Comment(s): unable to obtain patient not a good historian General Exam - General Exam Comments Initial Comments: This is a well-developed well-nourished awake alert oriented times 3 male Limitations: no limitations General appearance: alert, in no apparent distress Head exam: Present: atraumatic, normocephalic, normal inspection Eye exam: Present: normal appearance, PERRL, EOMI. Absent: scleral icterus, conjunctival injection, periorbital swelling ENT exam: Present: normal exam, mucous membranes moist Neck exam: Present: normal inspection. Absent: tenderness, meningismus, lymphadenopathy Respiratory exam: Present: normal lung sounds bilaterally. Absent: respiratory distress, wheezes, rales, rhonchi, stridor Cardiovascular Exam: Present: regular rate, normal rhythm, normal heart sounds. Absent: systolic murmur, diastolic murmur, rubs, gallop, clicks GI/Abdominal exam: Present: soft, normal bowel sounds. Absent: distended, tenderness, guarding, rebound, rigid Extremities exam: Present: normal inspection, full ROM, normal capillary refill. Absent: tenderness, pedal edema, joint swelling, calf tenderness Back exam: Present: normal inspection Neurological exam: Present: alert, oriented X3, CN II-XII intact Psychiatric exam: Present: normal affect, normal mood Skin exam: Present: warm, dry, intact, normal color. Absent: rash Course Vital Signs 07/27/18 07/27/18 12:46 14:54 Temperature 97.5 F L Pulse Rate 67 70 Respiratory 18 16 Rate Blood Pressure 102/62 135/74 O2 Sat by Pulse 98 95 Oximetry Medical Decision Making - Medical Decision Making Did discuss [employer] the patient family. Patient's been asymptomatic since he been here the concern is for dysrhythmias. He also does demonstrate an elevated d-dimer but because of the renal insufficiency a VQ scan will be ordered. Patient will be admitted. I did discuss the case with Dr. Wick. - Lab Data Result diagrams: 07/27/18 14:15 07/27/18 14:15 Lab Results 07/27/18 07/27/18 07/27/18 Range/Units 14:15 14:15 14:15 WBC 11.5 H (3.8-10.6) k/uL RBC 5.11 (4.30-5.90) m/uL Hgb 16.0 (13.0-17.5) gm/dL Hct 49.3 (39.0-53.0) % MCV 96.3 (80.0-100.0) fL MCH 31.2 (25.0-35.0) pg MCHC 32.4 (31.0-37.0) g/dL RDW 14.4 (11.5-15.5) % Plt Count 279 (150-450) k/uL Neutrophils % 79 % Lymphocytes % 11 % Monocytes % 7 % Eosinophils % 1 % Basophils % 0 % Neutrophils # 9.1 H (1.3-7.7) k/uL Lymphocytes # 1.3 (1.0-4.8) k/uL Monocytes # 0.8 (0-1.0) k/uL Eosinophils # 0.1 (0-0.7) k/uL Basophils # 0.1 (0-0.2) k/uL PT 10.3 (9.0-12.0) sec INR 1.0 (<1.2) APTT 22.9 (22.0-30.0) sec D-Dimer 6.27 H (<0.60) mg/L FEU Sodium 137 (137-145) mmol/L Potassium 5.3 H (3.5-5.1) mmol/L Chloride 100 (98-107) mmol/L Carbon Dioxide 26 (22-30) mmol/L Anion Gap 11 mmol/L BUN 46 H (9-20) mg/dL Creatinine 1.69 H (0.66-1.25) mg/dL Est GFR (CKD-EPI)AfAm 44 (>60 ml/min/1.73 sqM) Est GFR (CKD-EPI)NonAf 38 (>60 ml/min/1.73 sqM) Glucose 340 H (74-99) mg/dL Calcium 10.2 (8.4-10.2) mg/dL Magnesium 1.6 (1.6-2.3) mg/dL Total Bilirubin 0.8 (0.2-1.3) mg/dL AST 13 L (17-59) U/L ALT 28 (21-72) U/L Alkaline Phosphatase 97 (38-126) U/L Total Creatine Kinase (55-170) U/L CK-MB (CK-2) (0.0-2.4) ng/mL CK-MB (CK-2) Rel Index Troponin I (0.000-0.034) ng/mL Total Protein 7.7 (6.3-8.2) g/dL Albumin 4.6 (3.5-5.0) g/dL TSH 0.592 (0.465-4.680) mIU/L Urine Color Urine Appearance (Clear) Urine pH (5.0-8.0) Ur Specific Bennett (1.001-1.035) Urine Protein (Negative) Urine Glucose (UA) (Negative) Urine Ketones (Negative) Urine Blood (Negative) Urine Nitrite (Negative) Urine Bilirubin (Negative) Urine Urobilinogen (<2.0) mg/dL Ur Leukocyte Esterase (Negative) 07/27/18 07/27/18 Range/Units 14:15 16:40 WBC (3.8-10.6) k/uL RBC (4.30-5.90) m/uL Hgb (13.0-17.5) gm/dL Hct (39.0-53.0) % MCV (80.0-100.0) fL MCH (25.0-35.0) pg MCHC (31.0-37.0) g/dL RDW (11.5-15.5) % Plt Count (150-450) k/uL Neutrophils % % Lymphocytes % % Monocytes % % Eosinophils % % Basophils % % Neutrophils # (1.3-7.7) k/uL Lymphocytes # (1.0-4.8) k/uL Monocytes # (0-1.0) k/uL Eosinophils # (0-0.7) k/uL Basophils # (0-0.2) k/uL PT (9.0-12.0) sec INR (<1.2) APTT (22.0-30.0) sec D-Dimer (<0.60) mg/L FEU Sodium (137-145) mmol/L Potassium (3.5-5.1) mmol/L Chloride (98-107) mmol/L Carbon Dioxide (22-30) mmol/L Anion Gap mmol/L BUN (9-20) mg/dL Creatinine (0.66-1.25) mg/dL Est GFR (CKD-EPI)AfAm (>60 ml/min/1.73 sqM) Est GFR (CKD-EPI)NonAf (>60 ml/min/1.73 sqM) Glucose (74-99) mg/dL Calcium (8.4-10.2) mg/dL Magnesium (1.6-2.3) mg/dL Total Bilirubin (0.2-1.3) mg/dL AST (17-59) U/L ALT (21-72) U/L Alkaline Phosphatase (38-126) U/L Total Creatine Kinase 22 L (55-170) U/L CK-MB (CK-2) 0.4 (0.0-2.4) ng/mL CK-MB (CK-2) Rel Index 1.8 Troponin I <0.012 (0.000-0.034) ng/mL Total Protein (6.3-8.2) g/dL Albumin (3.5-5.0) g/dL TSH (0.465-4.680) mIU/L Urine Color Light Yellow Urine Appearance Clear (Clear) Urine pH 5.0 (5.0-8.0) Ur Specific Bennett 1.009 (1.001-1.035) Urine Protein Negative (Negative) Urine Glucose (UA) 3+ H (Negative) Urine Ketones Negative (Negative) Urine Blood Negative (Negative) Urine Nitrite Negative (Negative) Urine Bilirubin Negative (Negative) Urine Urobilinogen <2.0 (<2.0) mg/dL Ur Leukocyte Esterase Negative (Negative) - EKG Data -: EKG Interpreted by Me EKG shows normal: sinus rhythm (Sinus rhythm a 66. 134 QRS duration 92 QT since QTC 388/406 nonspecific anterior changes.) - Radiology Data Radiology results: report reviewed (I did review the imaging and report no acute findings.), image reviewed Disposition Clinical Impression: Heart palpitations, Renal insufficiency syndrome, Elevated d-dimer Disposition: ADMITTED IP TO THIS [facility] Condition: Stable Referrals: Robert Ellis MD [Primary Care Provider] - 1-2 days
--- NOTE | 2018-07-27 14:43 | XR ---
EXAMINATION TYPE: XR chest 2V DATE OF EXAM: 07/27/2018 COMPARISON: 10/02/2017 HISTORY: Dysrhythmia TECHNIQUE: Frontal and lateral views of the chest are obtained. FINDINGS: There is no heart failure nor confluent pneumonic infiltrate. Costophrenic angles are holly r. There are chest leads. There is minor spurring in the thoracic spine. IMPRESSION: No active cardiopulmonary disease. Normal heart. No change.
[2018-07-27 14:48] LABS: Basophils # (A) 0.1 k/uL (0-0.2); Basophils % (A) 0 %; Eosinophils # (A) 0.1 k/uL (0-0.7); Eosinophils % (A) 1 %; HCT 49.3 % (39.0-53.0); Lymphocytes # (A) 1.3 k/uL (1.0-4.8); Lymphocytes % (A) 11 %; MCH 31.2 pg (25.0-35.0); MCHC 32.4 g/dL (31.0-37.0); MCV 96.3 fL (80.0-100.0); Mean Platelet Volume 7.1; Monocytes # (A) 0.8 k/uL (0-1.0); Monocytes % (A) 7 %; Neutrophils # (A) 9.1 k/uL (1.3-7.7); Neutrophils % (A) 79 %; Platelet Count 279 k/uL (150-450); RBC 5.11 m/uL (4.30-5.90); RDW 14.4 % (11.5-15.5); WBC 11.5 k/uL (3.8-10.6)
[2018-07-27 15:01] LABS: Albumin 4.6 g/dL (3.5-5.0); Calcium 10.2 mg/dL (8.4-10.2); Magnesium 1.6 mg/dL (1.6-2.3); Potassium 5.3 mmol/L (3.5-5.1); Total Bilirubin 0.8 mg/dL (0.2-1.3); Total Protein 7.7 g/dL (6.3-8.2)
[2018-07-27 15:07] LABS: Creatine Kinase 22 U/L (55-170)
[2018-07-27 15:12] LABS: Partial Thromboplastin Time 22.9 sec (22.0-30.0); Prothrombin Time 10.3 sec (9.0-12.0)
[2018-07-27 15:22] LABS: Creatine Kinase MB 0.4 ng/mL (0.0-2.4); Troponin I <0.012 ng/mL (0.000-0.034)
[2018-07-27] MEDS ORDERED: MAGNESIUM SULFATE-D5W PMX 1 GM in DEXTROSE/WATER 1 100ML.BAG IVPB ONE (15:23)
[2018-07-27 15:24] LABS: D-Dimer 6.27 mg/L FEU (<0.60)
--- NOTE | 2018-07-27 16:46 | CT ---
EXAMINATION TYPE: CT brain wo con DATE OF EXAM: 07/27/2018 COMPARISON: May 12, 2020 HISTORY: Syncopal episodes. CT DLP: 1119.4 mGycm Automated exposure control for dose reduction was used. FINDINGS: There is cerebral cortical atrophy. There is no mass effect nor midline shift. There is no sign of in tracranial hemorrhage. Calvarium is intact. IMPRESSION: CEREBRAL ATROPHY. NO ACUTE INTRACRANIAL ABNORMALITY. NO CHANGE.
[2018-07-27 16:54] LABS: Appearance,Urine Clear (Clear); Bilirubin,Urine Negative (Negative); Blood,Urine Negative (Negative); Color,Urine Light Yellow; Glucose,Urine (UA) 3+ (Negative); Ketones,Urine Negative (Negative); Leukocyte Esterase,Urine Negative (Negative); Nitrite,Urine Negative (Negative); Protein,Urine Negative (Negative); Specific Gravity,Urine 1.009 (1.001-1.035); Urobilinogen,Urine <2.0 mg/dL (<2.0)
[2018-07-27] MEDS ORDERED: NALOXONE 0.4 MG/ML 1 ML VIAL IV PRN (17:02)
[2018-07-27] MEDS ORDERED: HEPARIN SODIUM,PORCINE 5,000 UNIT/ML 1 ML VIAL IV PRN (17:05)
[2018-07-27] MEDS ORDERED: HEPARIN SODIUM,PORCINE 10,000 UNIT/ML 1 ML VIAL IV ONE (17:05)
[2018-07-27] MEDS ORDERED: HEPARIN SOD,PORK IN 0.45% NACL 25,000 UNIT in 0.45% NACL 1 250ML.BAG IV SCH (17:15)
[2018-07-27] MEDS ORDERED: metFORMIN 500 MG TAB PO SCH (18:00)
--- NOTE | 2018-07-27 19:02 | NM ---
EXAMINATION TYPE: NM pul vent and perfuse DATE OF EXAM: 07/27/2018 COMPARISON: NONE HISTORY: TECHNIQUE: Utilizing inhalation of 68.3 mCi Tc 99m DTPA aerosol and intravenous injection of 5.29 mC i of Tc 99m MAA, ventilation and perfusion images are acquired post injection in multiple projections . FINDINGS: There are matching segmental type defects in the posterior left lung. There is no ventilation/perfusi on mismatch. There is fairly normal perfusion of the right lung. The remainder of the exam is unremar kable. IMPRESSION: Matching defects in the left lower lobe suggestive of airway disease. There is a low probability of p ulmonary embolism.
[2018-07-27 19:08] LABS: Glucose,Whole Blood 229 mg/dL (75-99)
[2018-07-27 20:18] VITALS: BMI 22.3
[2018-07-27 20:49] LABS: Glucose,Whole Blood 312 mg/dL (75-99)
[2018-07-27] MEDS ORDERED: ALPRAZolam 0.25 MG TAB PO PRN (20:57)
[2018-07-27] MEDS ORDERED: TEMAZEPAM 15 MG CAP PO PRN (20:57)
[2018-07-27] MEDS ORDERED: ACETAMINOPHEN TAB 500 MG TAB PO PRN (20:57)
[2018-07-27] MEDS ORDERED: ZOLPIDEM 10 MG TAB PO SCH (21:00)
[2018-07-27] MEDS ORDERED: DONEPEZIL 5 MG TAB PO SCH (21:00)
[2018-07-27 21:32] LABS: Basophils # (A) 0.1 k/uL (0-0.2); Basophils % (A) 0 %; Eosinophils # (A) 0.2 k/uL (0-0.7); Eosinophils % (A) 1 %; HCT 51.8 % (39.0-53.0); HGB 16.8 gm/dL (13.0-17.5); Lymphocytes # (A) 1.5 k/uL (1.0-4.8); Lymphocytes % (A) 11 %; MCH 31.4 pg (25.0-35.0); MCHC 32.4 g/dL (31.0-37.0); MCV 97.1 fL (80.0-100.0); Mean Platelet Volume 6.6; Monocytes # (A) 0.8 k/uL (0-1.0); Monocytes % (A) 6 %; Neutrophils # (A) 10.7 k/uL (1.3-7.7); Neutrophils % (A) 80 %; Platelet Count 323 k/uL (150-450); RBC 5.34 m/uL (4.30-5.90); RDW 14.6 % (11.5-15.5); WBC 13.4 k/uL (3.8-10.6)
[2018-07-27 21:36] LABS: Anion Gap 9 mmol/L; Blood Urea Nitrogen 46 mg/dL (9-20); Calcium 9.3 mg/dL (8.4-10.2); Carbon Dioxide 26 mmol/L (22-30); Chloride 102 mmol/L (98-107); Glucose 352 mg/dL (74-99); Potassium 5.1 mmol/L (3.5-5.1); Sodium 137 mmol/L (137-145)
[2018-07-27] MEDS: IOPAMIDOL-300 CONTRAST 30 ML VIAL (ORAL USE) PO PRN ×2 (21:42→22:28)
[2018-07-27] MEDS: SODIUM CHLORIDE 0.9% 1,000 ML IV SCH (21:46)
[2018-07-27] MEDS: INSULIN ASPART (NovoLOG) 100 UNIT/ML VIAL SQ SCH (22:29)
--- NOTE | 2018-07-27 22:57 | US ---
EXAM: US Duplex Bilateral Lower Extremity Veins CLINICAL HISTORY: Reason: high d dimer TECHNIQUE: Real-time duplex ultrasound scan of the bilateral lower extremity veins integrating B-mode two-dimensional vascular structure, Doppler spectral analysis, color flow Doppler imaging and compression. COMPARISON: None available FINDINGS: Right deep veins: Unremarkable. No DVT in the right common femoral, femoral, proximal deep femoral or popliteal veins. The veins demonstrate normal color flow, are normally compressible, with normal phasic flow and/or augmentation response. Right superficial veins: Unremarkable. No thrombus in the visualized right great saphenous vein. Left deep veins: Unremarkable. No DVT in the left common femoral, femoral, proximal deep femoral or popliteal veins. The veins demonstrate normal color flow, are normally compressible, with normal phasic flow and/or augmentation response. Left superficial veins: Unremarkable. No thrombus in the visualized left great saphenous vein. IMPRESSION: No evidence of deep venous thrombosis.
--- NOTE | 2018-07-27 23:25 | HP ---
HISTORY AND PHYSICAL DATE OF SERVICE: 07/27/2018 CHIEF COMPLAINT: Syncope, chest pain, palpitations, vomiting. HISTORY OF PRESENT ILLNESS: This 78-year-old gentleman with a past medical history of multiple medical issues including diabetes history, DJD, rheumatoid arthritis, history of adenoidectomy, history of joint replacement, being followed by Dr. Ellis in the outpatient setting, was admitted with multiple symptomatology. The patient apparently tried to eat over the last few days and the patient had palpitations and patient was sweating profusely. The patient was complaining of weakness and the patient might have passed out in the bathroom also. The patient came to [facility] and was admitted for further evaluation and treatment. There is no history of fevers or rigors, no history of headache at this time. The patient also had history of abdominal aortic aneurysm. There is no history of fever, rigors, chills at this time. PAST MEDICAL HISTORY: History of diabetes, hearing defect, hypertension, DJD, rheumatoid arthritis. MEDICATIONS: Prior to admission include: 1. Metformin 1000 mg p.o. b.i.d. 2. Ambien 10 mg at bedtime. 3. Flomax 0.4 daily. 4. Lyrica 200 mg p.o. t.i.d. 6. Aricept 5 mg at bedtime. 7. Cymbalta 60 mg daily. 8. Vitamin D3, 5000 daily. ALLERGIES: AMOXICILLIN, MORPHINE. FAMILY HISTORY: Unable to obtain. SOCIAL HISTORY: Previous history of smoking. No history of current smoking or alcohol intake. REVIEW OF SYSTEMS: ENT: No diminished vision. CARDIOVASCULAR: As mentioned. GI: As mentioned. : No dysuria. ALLERGY/IMMUNOLOGY: No history of asthma or hayfever. MUSCULOSKELETAL: As mentioned. ENDOCRINE: As mentioned. NERVOUS SYSTEM: No numbness or weakness. CONSTITUTIONAL: As mentioned earlier. PHYSICAL EXAM: Patient is alert, oriented x3. The pulse is 73, blood pressure 97/54, respirations 18, temperature 97.4, pulse ox 98% on room air. HEENT: Conjunctivae normal. Oral mucosa moist. NECK: No jugular venous distention. No lymph node enlargement. CARDIOVASCULAR: S1 and S2 muffled. LUNGS: Breat sounds diminished in the bases. Few scattered rhonchi. ABDOMEN: Soft, nontender. No mass palpable. LEGS: No edema. No swelling. NERVOUS SYSTEM: Higher functions as mentioned. Moves all 4 limbs equally. No focal motor deficits. LYMPHATIC: No lymph nodes palpable in the neck, axillae or groin. SKIN: No ulcers or rashes. JOINTS: No active arthropathy. LABS: WBC 7.5, D-dimer 6.27. Sodium is 137, potassium is 5.3 and creatinine is 1.69. Chest x-ray, no acute abnormality. CT brain showing cerebellar atrophy. V/Q scan , low probability. ASSESSMENT: 1. Chest pain and palpitations, for evaluation. Rule out coronary artery disease. 2. Rule out GERD or dysphagia. 3. Increased creatinine with chronic kidney disease stage III. 4. Hypokalemia, mild. 5. Diabetes mellitus type 2. 6. Increased WBC. 7. History of abdominal aortic aneurysm. 8. History of gait deficits. 9. Hypertension. 10.History of rheumatoid arthritis. 11.History of degenerative joint disease. 12.History of joint replacement. 13.History of tonsillectomy. 14.Remote history of nicotine dependence. 15.High D-dimer. 16.FULL CODE. RECOMMENDATIONS: This 78-year-old gentleman presented with multiple complex medical issues as mentioned earlier. Recommend to continue current management and symptomatic treatment. At this time recommend proton pump inhibitors. I would also recommend 2D echo with Doppler and cardiology evaluation. I would also recommend Gastroenterology evaluation to evaluate GI symptoms. A CT scan of the chest and abdomen without any IV contrast because of renal failure is also recommended. Resume the home medications. Cautious IV fluids. The prognosis is guarded because of multiple complex medical issues. IV heparin has been initiated. Further recommendations to follow. There is no evidence of any pulmonary embolism from the V/Q scan, however, overall prognosis extremely guarded. Further recommendations to follow. Blood sugar is elevated. I would also recommend hemoglobin A1c as well. MMODL / IJN: [id number] / JEANIE
[2018-07-27] MEDS: PREGABALIN 100 MG CAP PO SCH (23:43)
[2018-07-27] MEDS: LISINOPRIL-HCTZ 20-12.5 MG 1 EACH TAB PO SCH (23:43)
[2018-07-27] MEDS: PANTOPRAZOLE 40 MG/10 ML VIAL IVP SCH (23:44)
--- NOTE | 2018-07-28 00:32 | CT ---
ADDENDUM - Added by El Chin MD on 07/28/2018 12:34 AM (-05:00) Correction of voice recognition typographical error: Apparent wall thickening involving cecum may be related to incomplete distention BUT cannot exclude cecal mass/neoplasm. Colonoscopy should be considered for further evaluation. No evidence of bowel obstruction or pneumoperitoneum. EXAM: CT Chest Without Intravenous Contrast CLINICAL HISTORY: Reason: abd pain TECHNIQUE: Axial computed tomography images of the chest without intravenous contrast. CTDI is 6.7 mGy and DLP is 495.3 mGy-cm. This CT exam was performed using one or more of the following dose reduction techniques: automated exposure control, adjustment of the mA and/or kV according to patient size, and/or use of iterative reconstruction technique. COMPARISON: None available FINDINGS: Lungs: Mild pleural-parenchymal opacity along posterior right lung apex most suggestive of scarring. 4 mm left upper lobe pulmonary nodule. Scattered mild subsegmental atelectasis or scarring. Right lower lobe opacity which may reflect dependent atelectasis or mild infiltrate. No focal pulmonary consolidations. Pleural space: No evidence of pneumothorax or pleural effusion. Heart: Heart size within normal limits. Coronary arterial calcifications. No evidence of pericardial effusion Bones/joints: Multilevel thoracic spine degenerative changes. Vasculature: No thoracic aortic aneurysm. Lymph nodes: No pathologically enlarged lymphadenopathy. IMPRESSION: Right lower lobe opacity which may reflect dependent atelectasis or possible mild infiltrate. No focal pulmonary consolidations. No thoracic aortic aneurysm. 4 mm left upper lobe pulmonary nodule. Short-term CT follow-up recommended as per Fleischner criteria. EXAM: CT Abdomen and Pelvis Without Intravenous Contrast CLINICAL HISTORY: Reason: abd pain TECHNIQUE: Axial computed tomography images of the abdomen and pelvis without intravenous contrast. CTDI is 6.7 mGy and DLP is 495.3 mGy-cm. This CT exam was performed using one or more of the following dose reduction techniques: automated exposure control, adjustment of the mA and/or kV according to patient size, and/or use of iterative reconstruction technique. COMPARISON: None available FINDINGS: ABDOMEN: Liver: Liver is unremarkable. Gallbladder and bile ducts: Gallbladder radiodensities suggesting very small gallstones or radiodense sludge. No evidence of biliary dilatation. Pancreas: Pancreas is unremarkable. Spleen: Spleen is unremarkable. Adrenals: No adrenal masses. Kidneys and ureters: Small nonobstructing right renal calculus. No evidence of hydronephrosis. Bilateral nonspecific perinephric stranding. Multiple bilateral renal low-density lesions suggesting probable renal cysts, largest of which measuring 3 cm inferior pole right kidney. Stomach and bowel: No evidence of bowel obstruction or pneumoperitoneum. Colonic diverticulosis. Rectosigmoid colon nondistended limiting colonic evaluation. Wall thickening involving cecum may be related to incomplete distention, but cannot exclude cecal mass/neoplasm. PELVIS: Appendix: No evidence of appendicitis. Bladder: Urinary bladder is unremarkable. No bladder calculi. Reproductive: Mild prostatic enlargement. ABDOMEN and PELVIS: Intraperitoneal space: See above. Bones/joints: Status post previous left hip arthroplasty with associated metallic artifact. Advanced right hip osteoarthritis. Multilevel lumbar disc disease and spondylosis. Vasculature: Moderate calcific sclerotic disease. Distal abdominal aortic aneurysm measuring 4.6 cm AP by 4.4 cm transverse extending to aortic bifurcation with dilatation of common iliac arteries bilaterally. Right common artery measures 1.9 cm and left common iliac artery measures 2.1 cm. Indwelling aortobiiliac endoluminal vascular graft. Vascular evaluation limited without IV contrast administration. No periaortic or retroperitoneal hemorrhage. Lymph nodes: No evidence of lymphadenopathy. IMPRESSION: 4.6 cm distal abdominal aortic aneurysm extending to aortic bifurcation and involving common iliac arteries with indwelling aortobiiliac endoluminal stent graft. No evidence of periaortic hemorrhage. Multiple small gallstones or radiodense sludge. Apparent wall thickening involving cecum may be related to incomplete distention cannot exclude cecal mass/neoplasm. Colonoscopy should be considered for further evaluation. No evidence of bowel obstruction or pneumoperitoneum. Small nonobstructing right renal calculus. Multiple probable bilateral renal cysts.
[2018-07-28 04:23] LABS: Basophils # (A) 0.1 k/uL (0-0.2); Basophils % (A) 0 %; Eosinophils # (A) 0.3 k/uL (0-0.7); Eosinophils % (A) 3 %; HCT 46.7 % (39.0-53.0); HGB 15.5 gm/dL (13.0-17.5); Lymphocytes # (A) 2.2 k/uL (1.0-4.8); Lymphocytes % (A) 21 %; MCH 31.7 pg (25.0-35.0); MCHC 33.2 g/dL (31.0-37.0); MCV 95.3 fL (80.0-100.0); Mean Platelet Volume 7.1; Monocytes # (A) 0.6 k/uL (0-1.0); Monocytes % (A) 6 %; Neutrophils % (A) 67 %; Platelet Count 270 k/uL (150-450); RDW 14.4 % (11.5-15.5); WBC 10.4 k/uL (3.8-10.6)
[2018-07-28 04:47] LABS: Albumin 3.8 g/dL (3.5-5.0); Calcium 9.6 mg/dL (8.4-10.2); Potassium 4.1 mmol/L (3.5-5.1); Total Bilirubin 0.9 mg/dL (0.2-1.3); Total Protein 6.8 g/dL (6.3-8.2)
[2018-07-28 04:49] VITALS: RESP 16
[2018-07-28 06:20] LABS: Glucose,Whole Blood 195 mg/dL (75-99)
[2018-07-28] MEDS: INSULIN ASPART (NovoLOG) 100 UNIT/ML VIAL SQ SCH ×2 (06:33→12:16)
[2018-07-28] MEDS: SODIUM CHLORIDE 0.9% 1,000 ML IV SCH (06:33)
[2018-07-28 08:44] VITALS: TEMP 97.6
[2018-07-28] MEDS ORDERED: CHOLECALCIFEROL 1,000 UNIT TAB PO SCH (09:00)
[2018-07-28] MEDS ORDERED: DULoxetine HCL 60 MG CAPSULE.DR PO SCH (09:00)
[2018-07-28] MEDS ORDERED: TAMSULOSIN 0.4 MG CAP.ER.24H PO SCH (09:00)
[2018-07-28] MEDS: LISINOPRIL-HCTZ 20-12.5 MG 1 EACH TAB PO SCH (09:13)
[2018-07-28] MEDS: PANTOPRAZOLE 40 MG/10 ML VIAL IVP SCH (09:13)
[2018-07-28] MEDS: PREGABALIN 100 MG CAP PO SCH (09:14)
[2018-07-28 11:31] VITALS: BP 147/67; PULSE 74
[2018-07-28 12:06] LABS: Glucose,Whole Blood 201 mg/dL (75-99)
--- NOTE | 2018-07-28 12:32 | P.CRDCN ---
History of Present Illness Consult date: 07/28/18 Requesting physician: Jim Wick Reason for Consult (text): Palpitations and syncope Chief complaint: Palpitations and syncope History of present illness: This is an 78-year-old gentleman with history of hypertension, diabetes, rheumatoid arthritis, who presented to the hospital following 2 separate syncopal episodes. According to the patient, he had something to eat, shortly thereafter became profusely diaphoretic and weak, states that he felt his heart racing fast. He passed out. The following day, the exact same symptoms presented themselves, and he again passed out. On both occasions he had just eaten something, again became diaphoretic, developed palpitations and passed out. On his first episode, he did lose bowel and bladder function. 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 According to the patient, he also had 1 episode here after eating a tuna sandwich, he became extremely diaphoretic and developed palpitations, he was lying in bed, he did not pass out. There were no documented tachyarrhythmias on the monitor. Chest x-ray on presentation here did not reveal any active cardiopulmonary disease. CAT scan of the brain revealed cerebral atrophy with no intracranial abnormality. VQ scan was performed which did show matching defects in the left lower lobe suggestive of airway disease with low probability for pulmonary embolism. EKG showed normal sinus rhythm with nonspecific ST-T wave changes. A CAT scan of the abdomen and pelvis was performed which revealed a 4.6 abdominal aortic aneurysm extending to the aortic bifurcation and involving the common iliac arteries with indwelling aorta by iliac stent graft. No evidence of periaortic hemorrhage. Multiple small gallstones. Apparent wall thickening involving the cecum which may be related to incomplete distention, cannot exclude cecal mass or neoplasm. Recommend colonoscopy. Small nonobstructing right renal calculus. 4 mm left upper lobe pulmonary nodule noted. Blood pressure 146/60 with a heart rate in the 70s. Orthostatics were checked here, 176/76 lying down , 133/60 sitting and 140/60 standing. Heart rate remained in the 60s to 70s. White blood cell count on admission 13.4, 10.4 this morning, hemoglobin 15.5, platelet count 270. Sodium 137, potassium 4.1, BUN 42 creatinine 1.3, BUN yesterday was 46 and creatinine 1.5. Magnesium level I.9. Past Medical History Past Medical History: Cancer, Diabetes Mellitus, Hearing Disorder / Deafness, Hypertension, Osteoarthritis (OA), Rheumatoid Arthritis (RA) Additional Past Medical History / Comment(s): chronic headaches due to head injury years ago, MAYLIN-YESENIA maria,back pain, skin cancer, blood in stool , History of Any Multi-Drug Resistant Organisms: None Reported Date of last positivie culture/infection: None MDRO Source:: None Past Surgical History: Adenoidectomy, Joint Replacement, Tonsillectomy Additional Past Surgical History / Comment(s): left hip, left knee replaced, Past Anesthesia/Blood Transfusion Reactions: No Reported Reaction Past Psychological History: No Psychological Hx Reported Smoking Status: Former smoker Past Alcohol Use History: None Reported Past Drug Use History: None Reported - Past Family History Son(s) Additional Family Medical History / Comment(s): unable to obtain patient not good historian Mother Additional Family Medical History / Comment(s): unable to obtain patient not a good historian Medications and Allergies Home Medications Medication Instructions Recorded Confirmed Type DULoxetine HCL [Cymbalta] 60 mg PO DAILY 05/13/18 07/27/18 History Pregabalin [Lyrica] 100 mg PO TID 05/13/18 07/27/18 History metFORMIN HCL 1,000 mg PO BID 05/13/18 07/27/18 History Donepezil [Aricept] 5 mg PO HS #30 tab 05/15/18 07/27/18 Rx Cholecalciferol [Vitamin D3] 5,000 unit PO DAILY 07/27/18 07/27/18 History Lisinopril-Hctz 20-12.5 mg 1 tab PO BID 07/27/18 07/27/18 History [Zestoretic 20-12.5] Tamsulosin [Flomax] 0.4 mg PO DAILY 07/27/18 07/27/18 History Zolpidem [Ambien] 10 mg PO HS 07/27/18 07/27/18 History Allergies Allergy/AdvReac Type Severity Reaction Status Date / Time amoxicillin [Amoxicillin] Allergy Nausea & Verified 07/27/18 13:17 Vomiting & Diarrhea morphine Allergy Unknown Verified 07/27/18 13:17 Physical Exam Vitals: Vital Signs Temp Pulse Pulse Pulse Pulse Pulse Resp 07/28/18 11:20 74 16 07/28/18 07:50 97.6 F 67 80 70 16 07/28/18 04:00 98.4 F 70 16 07/28/18 00:00 98.5 F 61 18 07/27/18 20:00 97.4 F L 73 18 07/27/18 19:48 97.4 F L 73 18 07/27/18 19:23 60 16 07/27/18 17:30 66 16 07/27/18 16:30 61 18 07/27/18 16:00 89 16 07/27/18 15:30 71 16 07/27/18 15:00 63 18 07/27/18 14:54 66 24 07/27/18 12:46 97.5 F L 67 18 BP BP BP BP BP Pulse Ox 07/28/18 11:20 147/67 92 L 07/28/18 07:50 133/67 141/65 176/77 97 07/28/18 04:00 123/59 97 07/28/18 00:00 138/66 96 07/27/18 20:00 97/54 96 07/27/18 19:48 97/54 96 07/27/18 19:23 187/84 95 07/27/18 17:30 158/75 97 07/27/18 16:30 134/74 92 L 07/27/18 16:00 134/74 07/27/18 15:30 124/70 96 07/27/18 15:00 133/80 95 07/27/18 14:54 135/74 93 L 07/27/18 12:46 102/62 98 Intake and Output 07/27/18 07/28/18 07/28/18 22:59 06:59 14:59 Intake Total 80.838 240 Output Total 1 801 Balance -1 -720.162 240 Intake: Intake, IV Titration 80.838 Amount Heparin Sod,Pork in 0.45% 80.838 NaCl 25,000 unit In 0.45 % NaCl 1 250ml.bag @ 18 UNITS/KG/HR 11.83 mls/hr IV .Q21H8M [facility] Rx#: [id number] Oral 240 Output: Urine 800 Stool 1 1 Other: Voiding Method Urinal Urinal Urinal # Voids 1 2 # Bowel Movements 1 PHYSICAL EXAMINATION: GENERAL: 78-year-old gentleman in no acute distress at the time of my examination HEENT: Head is atraumatic, normocephalic. Pupils equal, round. Sclera anicteric. Conjunctiva are clear. Mucous membranes of the mouth are moist. Neck is supple. There is no elevated jugular venous pressure. No carotid bruit is heard. HEART EXAMINATION: S1 and S2 systolic murmur is heard. CHEST EXAMINATION: Lungs are clear to auscultation and precussion. No chest wall tenderness is noted on palpation or with deep breathing. ABDOMEN: Soft, nontender. Bowel sounds are heard. No organomegaly noted. EXTREMITIES: 2+ peripheral pulses with no evidence of peripheral edema and no calf tenderness noted. NEUROLOGIC patient is awake, alert and oriented 3 . . Results 07/28/18 03:55 07/28/18 03:55 Cardiac Enzymes 07/27/18 07/27/18 07/28/18 Range/Units 14:15 14:15 03:55 AST 13 L 12 L (17-59) U/L CK-MB (CK-2) 0.4 (0.0-2.4) ng/mL Troponin I <0.012 (0.000-0.034) ng/mL Coagulation 07/27/18 07/28/18 07/28/18 Range/Units 14:15 03:55 10:26 PT 10.3 (9.0-12.0) sec APTT 22.9 28.6 67.5 H (22.0-30.0) sec CBC 07/27/18 07/27/18 07/28/18 Range/Units 14:15 21:11 03:55 WBC 11.5 H 13.4 H 10.4 (3.8-10.6) k/uL RBC 5.11 5.34 4.90 (4.30-5.90) m/uL Hgb 16.0 16.8 15.5 (13.0-17.5) gm/dL Hct 49.3 51.8 46.7 (39.0-53.0) % Plt Count 279 323 270 (150-450) k/uL Comprehensive Metabolic Panel 07/27/18 07/27/18 07/28/18 Range/Units 14:15 21:11 03:55 Sodium 137 137 137 (137-145) mmol/L Potassium 5.3 H 5.1 4.1 (3.5-5.1) mmol/L Chloride 100 102 104 (98-107) mmol/L Carbon Dioxide 26 26 22 (22-30) mmol/L BUN 46 H 46 H 42 H (9-20) mg/dL Creatinine 1.69 H 1.52 H 1.31 H (0.66-1.25) mg/dL Glucose 340 H 352 H 194 H (74-99) mg/dL Calcium 10.2 9.3 9.6 (8.4-10.2) mg/dL AST 13 L 12 L (17-59) U/L ALT 28 25 (21-72) U/L Alkaline Phosphatase 97 85 (38-126) U/L Total Protein 7.7 6.8 (6.3-8.2) g/dL Albumin 4.6 3.8 (3.5-5.0) g/dL Current Medications Generic Name Dose Route Start Last Admin Trade Name Freq PRN Reason Stop Dose Admin Acetaminophen 500 mg 07/27/18 20:57 Tylenol Tab PO Q6HR PRN Fever and/ or Pain Alprazolam 0.25 mg 07/27/18 20:57 Xanax PO TID PRN Anxiety Cholecalciferol 5,000 unit 07/28/18 09:00 07/28/18 09:13 Vitamin D3 PO 5,000 unit DAILY [facility] Administration Donepezil HCl 5 mg 07/27/18 21:00 07/27/18 23:43 Aricept PO 5 mg HS IN[facility] Administration Duloxetine HCl 60 mg 07/28/18 09:00 07/28/18 09:13 Cymbalta PO 60 mg DAILY [facility] Administration Lisinopril/HCTZ 1 each 07/27/18 21:00 07/28/18 09:13 Zestoretic 20-12.5 PO 1 each BID IN[facility] Administration Heparin Sodium (Porcine) 0 unit 07/27/18 17:05 Heparin IV PER PROTOCOL PRN Low PTT Protocol Heparin Sodium/Sodium Chloride 250 mls @ 11.83 mls/hr 07/27/18 17:15 04:35 25,000 unit/ Sodium Chloride IV 24.07 units/kg/hr .Q21H8M [facility] 15.83 mls/hr Titration Protocol 18 UNITS/KG/HR Sodium Chloride 1,000 mls @ 80 mls/hr 07/27/18 17:15 07/28/18 06:33 Saline 0.9% IV 80 mls/hr .[id number] [facility] Administration Insulin Aspart 0 unit 07/27/18 22:25 07/28/18 06:33 Novolog SQ 2 unit ACHS INDU Administration Protocol Naloxone HCl 0.2 mg 07/27/18 17:02 Narcan IV Q2M PRN Opioid Reversal Pantoprazole Sodium 40 mg 07/27/18 21:00 07/28/18 09:13 Protonix IVP 40 mg BID INDU Administration Pregabalin 100 mg 07/27/18 22:00 07/28/18 09:14 Lyrica PO 100 mg TID IN[facility] Administration Tamsulosin HCl 0.4 mg 07/28/18 09:00 07/28/18 09:13 Flomax PO 0.4 mg DAILY [facility] Administration Temazepam 15 mg 07/27/18 20:57 Restoril PO HS PRN Insomnia Zolpidem Tartrate 10 mg 07/27/18 21:00 07/27/18 23:43 Ambien PO 10 mg HS INDU Administration Intake and Output 07/27/18 07/28/18 07/28/18 22:59 06:59 14:59 Intake Total 80.838 240 Output Total 1 801 Balance -1 -720.162 240 Intake: Intake, IV Titration 80.838 Amount Heparin Sod,Pork in 0.45% 80.838 NaCl 25,000 unit In 0.45 % NaCl 1 250ml.bag @ 18 UNITS/KG/HR 11.83 mls/hr IV .Q21H8M [facility] Rx#: [id number] Oral 240 Output: Urine 800 Stool 1 1 Other: Voiding Method Urinal Urinal Urinal # Voids 1 2 # Bowel Movements 1 07/28/18 03:55 07/28/18 03:55 EKG Interpretations (text) EKG shows a normal sinus rhythm with nonspecific ST-T wave changes Assessment and Plan Plan: Assessment and plan #1 symptoms of palpitations with associated diaphoresis and subsequent syncope. No documentation of any tachycardia arrhythmias noted here. Orthostaticsnegative. Possibly vasovagal. #2 acute on chronic renal insufficiency, could be secondary to dehydration. #3 diabetes #4 history of abdominal aortic aneurysm #5 hypertension #6 history of rheumatoid arthritis Plan We will continue to monitor the patient for any tachycardia or bradycardia arrhythmias continue to monitor orthostatics. Obtain an echocardiogram with Doppler study. If there are no documented arrhythmias here we would recommend discharging the patient home with an event monitor. Further recommendations to follow. DNP note has been reviewed, I agree with a documented findings and plan of care. Patient was seen and examined.
[2018-07-28 12:57] LABS: Basophils # (A) 0.1 k/uL (0-0.2); Basophils % (A) 1 %; Eosinophils # (A) 0.2 k/uL (0-0.7); Eosinophils % (A) 2 %; HCT 48.7 % (39.0-53.0); HGB 15.5 gm/dL (13.0-17.5); Lymphocytes # (A) 1.4 k/uL (1.0-4.8); Lymphocytes % (A) 13 %; MCH 31.1 pg (25.0-35.0); MCHC 31.8 g/dL (31.0-37.0); MCV 97.7 fL (80.0-100.0); Mean Platelet Volume 7.5; Monocytes # (A) 0.7 k/uL (0-1.0); Monocytes % (A) 7 %; Neutrophils # (A) 8.4 k/uL (1.3-7.7); Neutrophils % (A) 77 %; Platelet Count 275 k/uL (150-450); RBC 4.99 m/uL (4.30-5.90); RDW 14.4 % (11.5-15.5); WBC 10.9 k/uL (3.8-10.6)
[2018-07-28 13:38] LABS: Albumin 4.2 g/dL (3.5-5.0); Calcium 9.8 mg/dL (8.4-10.2); Potassium 4.3 mmol/L (3.5-5.1); Total Bilirubin 0.7 mg/dL (0.2-1.3); Total Protein 7.3 g/dL (6.3-8.2)
[2018-07-28] MEDS ORDERED: PANTOPRAZOLE 40 MG TABLET PO SCH (17:30)
--- NOTE | 2018-07-28 17:59 | DS ---
DISCHARGE SUMMARY DATE OF SERVICE: 07/28/2018 FINAL DIAGNOSES: 1. Chest pain, palpitation, myocardial infarction ruled out. 2. Syncope, possibly cardiac arrhythmia. 3. Rule out cardiac arrhythmia. 4. Possible gastroesophageal reflux disease. 5. Increased creatinine with chronic kidney stage III. 6. Hypokalemia, mild. 7. Diabetes mellitus type 2. 8. History of abdominal aortic aneurysm and stenting. 9. Increased WBC. 10.History of gait deficits. 11.Hypertension. 12.History of rheumatoid arthritis. 13.History of degenerative joint disease. 14.History of joint replacement. 15.History of tonsillectomy. 16.Remote history of nicotine dependence. 17.High D-dimer. 18.FULL CODE. DISCHARGE DISPOSITION: The patient is being discharged in stable condition with guarded prognosis. HISTORY OF PRESENT ILLNESS: This 78-year-old gentleman with past medical history of multiple medical problems was admitted with possible syncope, chest pain, palpitation, vomiting. Otherwise, the patient was treated symptomatically. Cardiology saw the patient and CT scan of the abdomen showed abdominal aortic aneurysm as well as stenting with no acute findings and Vascular Surgery and Cardiology were consulted and recommended outpatient followup. The patient is extremely keen on going home because the patient's elderly has dementia and some change in mental status, which is in the text messages as shown to me by the patient. Otherwise, on exam vitals are stable. Cardiovascular: S1, S2. Abdomen: Soft. Nervous System: No focal deficit. DISCHARGE ADVICE: 1. Diet is cardiac. 2. Activity limited until followup. 3. Follow up with Dr. Ellis in 2-3 days. 4. Follow with Gastroenterology and as well as Vascular and Cardiology as mentioned earlier. Dr. Harrison, Dr. Mckeon and Dr. Dickens as mentioned earlier. MEDICATIONS: 1. Vitamin D3 5000 daily. 2. Cymbalta 60 mg. 3. Zestril 10/12.5 mg daily. 4. Metformin 1000 mg p.o. b.i.d. 5. Lyrica 100 mg p.o. t.i.d. 6. Flomax 0.4 daily. 7. Ambien 10 mg at bedtime. 8. Aricept 5 mg q.h.s. 9. Protonix 40 mg p.o. daily. Event monitoring from Cardiology office. MMODL / IJN: [id number] /
[2018-07-29 12:15] LABS: Hemoglobin A1C 8.1 % (4.0-6.0)
[2018-07-30] MEDS ORDERED: metFORMIN 500 MG TAB PO SCH (07:30)
== END 2018-07-28 17:57 | disposition home or self-care (01) ==
LOC: EC 12:33 → 3SCARD 17:05
PROVIDERS: ADMIT Hospitalist; ATTEND Hospitalist
DX: R00.2 Palpitations (principal); R07.9 Chest pain, unspecified; D72.829 Elevated white blood cell count, unspecified; E87.6 Hypokalemia; H91.90 Unspecified hearing loss, unspecified ear; E11.22 Type 2 diabetes mellitus with diabetic chronic kidney disease; I12.9 Hypertensive chronic kidney disease with stage 1 through stage 4 chronic kidney disease, or unspecified chronic kidney disease; I71.4 Abdominal aortic aneurysm, without rupture; K80.20 Calculus of gallbladder without cholecystitis without obstruction; M06.9 Rheumatoid arthritis, unspecified; N18.3 Chronic kidney disease, stage 3 (moderate); N20.0 Calculus of kidney; R91.1 Solitary pulmonary nodule; Z79.84 Long term (current) use of oral hypoglycemic drugs; Z79.899 Other long term (current) drug therapy; Z88.5 Allergy status to narcotic agent; Z88.0 Allergy status to penicillin; R79.1 Abnormal coagulation profile; Z85.828 Personal history of other malignant neoplasm of skin; Z87.891 Personal history of nicotine dependence; Z98.890 Other specified postprocedural states; Z96.652 Presence of left artificial knee joint; Z96.642 Presence of left artificial hip joint
CPT/HCPCS: 96376 ×2; 96366 ×2; 96367; 96375; 96361; 96365; 99285; 36415; 93005; 85379; 80053 ×2; 80048; 82550; 82553; 82009; 83735 ×2; 84443; 84484; 85025 ×2; 85610; 85730 ×2; 82272; 81003; 87324; 83036; 71046; 93970; 70450; 71250; 74176; 78582; G0378 ×2; A9540; A9567; J1644 ×2; J3475; C9113 ×2

== ENCOUNTER → 2019-02-03 | Outpatient (CLI) | payer MEDICARE, BC ==
--- NOTE | 2019-02-03 16:32 | XR ---
EXAMINATION TYPE: XR ribs LT DATE OF EXAM: 02/03/2019 COMPARISON: 07/27/2018 HISTORY: Pain TECHNIQUE: Left ribs are examined in 2 projections. FINDINGS: No displaced rib fractures are evident. No pneumothorax is evident. IMPRESSION: 1. Normal left ribs
== END | disposition home or self-care (01) ==
LOC: RADXRMAIN 15:33
PROVIDERS: ATTEND Internal Medicine
DX: R07.81 Pleurodynia (principal)

== ENCOUNTER 2019-10-21 13:33 | Inpatient (IN) | payer BC, MEDICARE ==
[2019-10-21] MEDS ORDERED: INSULIN REGULAR BOLUS (FROM DRIP BAG) IV ONE (13:40)
[2019-10-21] MEDS ORDERED: Magnesium Replacement Protocol 1 EACH MISC MISCELLANE PRN (13:40)
[2019-10-21] MEDS ORDERED: Potassium Replacement Protocol 1 EACH MISC MISCELLANE PRN ×2 (13:40→23:39)
[2019-10-21] MEDS ORDERED: SODIUM CHLORIDE 0.9% 2,000 ML IV ONE (13:42)
[2019-10-21] MEDS ORDERED: SODIUM CHLORIDE 0.9% 1,000 ML IV SCH ×2 (13:45→17:15)
--- NOTE | 2019-10-21 13:46 | ED ---
General Adult HPI - General Source: EMS, RN notes reviewed, old records reviewed Limitations: altered mental status <Jai Garcia - Last Filed: 10/21/19 15:20> <Keaton Love - Last Filed: 10/21/19 17:11> - General Stated complaint: Altered Mental Time Seen by Provider: 10/21/19 13:33 - History of Present Illness Initial comments: This is an 79-year-old male who is a diabetic. According to the paramedics the family states the patient has been altered for 24 hours and his been drinking a regular pop and quite a bit of it since yesterday. Patient is unable to give any history is unsure whether patient has been taking his insulin or not but they did a blood sugar at the scene and the patient's blood sugar was over 500. Patient is very confused he is oriented to self which is not his baseline. There is no other information at this time from the senior operations manager and no family has arrived currently (Jai Garcia) - Related Data Home Medications Medication Instructions Recorded Confirmed DULoxetine HCL [Cymbalta] 60 mg PO DAILY 05/13/18 07/27/18 Pregabalin [Lyrica] 100 mg PO TID 05/13/18 07/27/18 metFORMIN HCL 1,000 mg PO BID 05/13/18 07/27/18 Cholecalciferol [Vitamin D3 (25 5,000 unit PO DAILY 07/27/18 07/27/18 Mcg = 1000 Iu)] Lisinopril-Hctz 20-12.5 mg 1 tab PO BID 07/27/18 07/27/18 [Zestoretic 20-12.5] Tamsulosin [Flomax] 0.4 mg PO DAILY 07/27/18 07/27/18 Zolpidem [Ambien] 10 mg PO HS 07/27/18 07/27/18 Previous Rx's Medication Instructions Recorded Donepezil [Aricept] 5 mg PO HS #30 tab 05/15/18 Pantoprazole [Protonix] 40 mg PO DAILY #30 tablet. 07/28/18 Allergies Allergy/AdvReac Type Severity Reaction Status Date / Time amoxicillin [Amoxicillin] Allergy Nausea & Verified 07/27/18 13:17 Vomiting & Diarrhea morphine Allergy Unknown Verified 07/27/18 13:17 Review of Systems ROS Other: All systems not noted in ROS Statement are negative. <Jai Garcia - Last Filed: 10/21/19 15:20> ROS Other: All systems not noted in ROS Statement are negative. <IvanKeaton - Last Filed: 10/21/19 17:11> ROS Statement: Those systems with pertinent positive or pertinent negative responses have been documented in the HPI. 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, YESENIA,back pain, skin cancer, blood in stool, History of Any Multi-Drug Resistant Organisms: None Reported Date of last positivie culture/infection: None MDRO Source:: None Past Surgical History: Adenoidectomy, Joint Replacement, Tonsillectomy Additional Past Surgical History / Comment(s): left hip, left knee replaced, Past Anesthesia/Blood Transfusion Reactions: No Reported Reaction Past Psychological History: No Psychological Hx Reported Smoking Status: Former smoker Past Alcohol Use History: None Reported Past Drug Use History: None Reported - Past Family History Son(s) Additional Family Medical History / Comment(s): unable to obtain patient not good historian Mother Additional Family Medical History / Comment(s): unable to obtain patient not a good historian <Jai Garcia - Last Filed: 10/21/19 15:20> General Exam <Jai Garcia - Last Filed: 10/21/19 15:20> - General Exam Comments Initial Comments: GENERAL: Patient is well-developed and well-nourished. Patient is nontoxic and well- hydrated and is in mild distress. ENT: Neck is soft and supple. No significant lymphadenopathy is noted. Oropharynx is clear. Dry mucous membranes. Neck has full range of motion without eliciting any pain. EYES: The sclera were anicteric and conjunctiva were pink and moist. Extraocular movements were intact and pupils were equal round and reactive to light. Eyelids were unremarkable. PULMONARY: Unlabored respirations. Good breath sounds bilaterally. No audible rales rhonchi or wheezing was noted. CARDIOVASCULAR: There is a regular rate and rhythm without any murmurs gallops or rubs. ABDOMEN: Soft and nontender with normal bowel sounds. SKIN: Skin is clear with no lesions or rashes and otherwise unremarkable. NEUROLOGIC: Patient is alert and oriented 1. Cranial nerves II through XII are grossly intact. Motor and sensory are also intact. Normal speech, volume and content. Symmetrical smile. MUSCULOSKELETAL: Normal extremities with adequate strength and full range of motion. No lower extremity swelling or edema. No calf tenderness. LYMPHATICS: No significant lymphadenopathy is noted PSYCHIATRIC: Unable to assess (Jai Garcia) Course Vital Signs 10/21/19 10/21/19 10/21/19 13:43 14:43 15:17 Temperature 97.5 F L Pulse Rate 102 H 101 H 98 Respiratory 26 H 28 H 27 H Rate Blood Pressure 85/49 114/72 115/63 O2 Sat by Pulse 89 L 96 93 L Oximetry 10/21/19 15:58 Temperature Pulse Rate 100 Respiratory 27 H Rate Blood Pressure 110/69 O2 Sat by Pulse 96 Oximetry Medical Decision Making - Lab Data Result diagrams: 10/21/19 14:00 10/21/19 14:00 <Jai Garcia - Last Filed: 10/21/19 15:20> - Lab Data Result diagrams: 10/21/19 14:00 10/21/19 14:00 - Radiology Data Radiology results: report reviewed (Chest x-ray shows right lower lobe infiltrate or atelectasis.), image reviewed (Computed tomography scan of the brain shows no hemorrhage. Degenerative changes. Hyperdense left MCA that may be related to partial volume averaging.) <Keaton Love - Last Filed: 10/21/19 17:11> - Medical Decision Making EKG shows sinus tachycardia at 102 bpm MA interval 264 116 QT Interval 392 QTC Is 510. Patient's EKG Shows No ST Segment Elevation or Depression. Dr. oLve be taking over the care of this patient at 3 PM (Jai Garcia) Patient was reevaluated and reexamined by myself, Dr. Love. Patient was updated on results. Case was discussed in detail with Dr. Russell, who will admit covered for Dr. Hermosillo. Case also discussed with Dr. Shell, who will admit. Patient does have questionable infiltrate on x-ray and antibiotics will be started. Patient will go to ICU. (Keaton Love) - Lab Data Lab Results 10/21/19 10/21/19 10/21/19 Range/Units 14:00 14:00 14:00 WBC 11.0 H (3.8-10.6) k/uL RBC 4.23 L (4.30-5.90) m/uL Hgb 13.7 (13.0-17.5) gm/dL Hct 52.5 (39.0-53.0) % MCV 124.1 H (80.0-100.0) fL MCH 32.5 (25.0-35.0) pg MCHC 26.2 L (31.0-37.0) g/dL RDW 12.9 (11.5-15.5) % Plt Count 383 (150-450) k/uL Neutrophils % 91 % Lymphocytes % 4 % Monocytes % 4 % Eosinophils % 0 % Basophils % 0 % Neutrophils # 10.0 H (1.3-7.7) k/uL Lymphocytes # 0.4 L (1.0-4.8) k/uL Monocytes # 0.5 (0-1.0) k/uL Eosinophils # 0.0 (0-0.7) k/uL Basophils # 0.0 (0-0.2) k/uL Manual Slide Review Performed Hypochromasia Marked Poikilocytosis (manual Present Anisocytosis (manual) Present Macrocytosis Marked A Sample Site ABG pH (7.35-7.45) ABG pCO2 (35-45) mmHg ABG pO2 (83-108) mmHg ABG HCO3 (21-25) mmol/L ABG Total CO2 (19-24) mmol/L ABG O2 Saturation (94-97) % ABG Base Excess mmol/L Raulito Test VBG pH (7.31-7.41) VBG pCO2 (37-51) mmHg VBG HCO3 (24-28) mmol/L FiO2 % Sodium 116 L* (137-145) mmol/L Potassium 5.7 H (3.5-5.1) mmol/L Chloride 74 L* (98-107) mmol/L Carbon Dioxide 8 L* (22-30) mmol/L Anion Gap 34 mmol/L BUN 33 H (9-20) mg/dL Creatinine 2.18 H (0.66-1.25) mg/dL Est GFR (CKD-EPI)AfAm 32 (>60 ml/min/1.73 sqM) Est GFR (CKD-EPI)NonAf 27 (>60 ml/min/1.73 sqM) Glucose >1875 H* (74-99) mg/dL POC Glucose (mg/dL) (75-99) mg/dL POC Glu Silverer ID Phosphorus (2.5-4.5) mg/dL Troponin I 0.881 H* (0.000-0.034) ng/mL Urine Color Urine Appearance (Clear) Urine pH (5.0-8.0) Ur Specific [place] (1.001-1.035) Urine Protein (Negative) Urine Glucose (UA) (Negative) Urine Ketones (Negative) Urine Blood (Negative) Urine Nitrite (Negative) Urine Bilirubin (Negative) Urine Urobilinogen (<2.0) mg/dL Ur Leukocyte Esterase (Negative) Urine RBC (0-5) /hpf Urine WBC (0-5) /hpf Urine Bacteria (None) /hpf Urine Mucus (None) /hpf Acetone, Qual Negative (Negative) 10/21/19 10/21/19 10/21/19 Range/Units 14:00 14:02 14:34 WBC (3.8-10.6) k/uL RBC (4.30-5.90) m/uL Hgb (13.0-17.5) gm/dL Hct (39.0-53.0) % MCV (80.0-100.0) fL MCH (25.0-35.0) pg MCHC (31.0-37.0) g/dL RDW (11.5-15.5) % Plt Count (150-450) k/uL Neutrophils % % Lymphocytes % % Monocytes % % Eosinophils % % Basophils % % Neutrophils # (1.3-7.7) k/uL Lymphocytes # (1.0-4.8) k/uL Monocytes # (0-1.0) k/uL Eosinophils # (0-0.7) k/uL Basophils # (0-0.2) k/uL Manual Slide Review Hypochromasia Poikilocytosis (manual Anisocytosis (manual) Macrocytosis Sample Site ABG pH (7.35-7.45) ABG pCO2 (35-45) mmHg ABG pO2 (83-108) mmHg ABG HCO3 (21-25) mmol/L ABG Total CO2 (19-24) mmol/L ABG O2 Saturation (94-97) % ABG Base Excess mmol/L Raulito Test VBG pH (7.31-7.41) VBG pCO2 (37-51) mmHg VBG HCO3 (24-28) mmol/L FiO2 % Sodium (137-145) mmol/L Potassium (3.5-5.1) mmol/L Chloride (98-107) mmol/L Carbon Dioxide (22-30) mmol/L Anion Gap mmol/L BUN (9-20) mg/dL Creatinine (0.66-1.25) mg/dL Est GFR (CKD-EPI)AfAm (>60 ml/min/1.73 sqM) Est GFR (CKD-EPI)NonAf (>60 ml/min/1.73 sqM) Glucose (74-99) mg/dL POC Glucose (mg/dL) >600 H (75-99) mg/dL POC Glu Silverer ID [place], Linda Phosphorus 8.8 H (2.5-4.5) mg/dL Troponin I (0.000-0.034) ng/mL Urine Color Light Yellow Urine Appearance Clear (Clear) Urine pH 5.0 (5.0-8.0) Ur Specific [place] 1.025 (1.001-1.035) Urine Protein Negative (Negative) Urine Glucose (UA) 4+ H (Negative) Urine Ketones Negative (Negative) Urine Blood Trace H (Negative) Urine Nitrite Negative (Negative) Urine Bilirubin Negative (Negative) Urine Urobilinogen <2.0 (<2.0) mg/dL Ur Leukocyte Esterase Negative (Negative) Urine RBC 1 (0-5) /hpf Urine WBC 1 (0-5) /hpf Urine Bacteria Rare H (None) /hpf Urine Mucus Rare H (None) /hpf Acetone, Qual (Negative) 10/21/19 10/21/19 10/21/19 Range/Units 14:34 15:06 15:25 WBC (3.8-10.6) k/uL RBC (4.30-5.90) m/uL Hgb (13.0-17.5) gm/dL Hct (39.0-53.0) % MCV (80.0-100.0) fL MCH (25.0-35.0) pg MCHC (31.0-37.0) g/dL RDW (11.5-15.5) % Plt Count (150-450) k/uL Neutrophils % % Lymphocytes % % Monocytes % % Eosinophils % % Basophils % % Neutrophils # (1.3-7.7) k/uL Lymphocytes # (1.0-4.8) k/uL Monocytes # (0-1.0) k/uL Eosinophils # (0-0.7) k/uL Basophils # (0-0.2) k/uL Manual Slide Review Hypochromasia Poikilocytosis (manual Anisocytosis (manual) Macrocytosis Sample Site L radial ABG pH 7.00 L* (7.35-7.45) ABG pCO2 19 L* (35-45) mmHg ABG pO2 125 H (83-108) mmHg ABG HCO3 5 L* (21-25) mmol/L ABG Total CO2 5 L (19-24) mmol/L ABG O2 Saturation 97.0 (94-97) % ABG Base Excess -26.4 mmol/L Rauilto Test Yes VBG pH 7.03 L* (7.31-7.41) VBG pCO2 31 L (37-51) mmHg VBG HCO3 8 L* (24-28) mmol/L FiO2 28 % Sodium (137-145) mmol/L Potassium (3.5-5.1) mmol/L Chloride (98-107) mmol/L Carbon Dioxide (22-30) mmol/L Anion Gap mmol/L BUN (9-20) mg/dL Creatinine (0.66-1.25) mg/dL Est GFR (CKD-EPI)AfAm (>60 ml/min/1.73 sqM) Est GFR (CKD-EPI)NonAf (>60 ml/min/1.73 sqM) Glucose (74-99) mg/dL POC Glucose (mg/dL) >600 H (75-99) mg/dL POC Glu Silverer ID [place], Linda Phosphorus (2.5-4.5) mg/dL Troponin I (0.000-0.034) ng/mL Urine Color Urine Appearance (Clear) Urine pH (5.0-8.0) Ur Specific [place] (1.001-1.035) Urine Protein (Negative) Urine Glucose (UA) (Negative) Urine Ketones (Negative) Urine Blood (Negative) Urine Nitrite (Negative) Urine Bilirubin (Negative) Urine Urobilinogen (<2.0) mg/dL Ur Leukocyte Esterase (Negative) Urine RBC (0-5) /hpf Urine WBC (0-5) /hpf Urine Bacteria (None) /hpf Urine Mucus (None) /hpf Acetone, Qual (Negative) 10/21/19 Range/Units 16:02 WBC (3.8-10.6) k/uL RBC (4.30-5.90) m/uL Hgb (13.0-17.5) gm/dL Hct (39.0-53.0) % MCV (80.0-100.0) fL MCH (25.0-35.0) pg MCHC (31.0-37.0) g/dL RDW (11.5-15.5) % Plt Count (150-450) k/uL Neutrophils % % Lymphocytes % % Monocytes % % Eosinophils % % Basophils % % Neutrophils # (1.3-7.7) k/uL Lymphocytes # (1.0-4.8) k/uL Monocytes # (0-1.0) k/uL Eosinophils # (0-0.7) k/uL Basophils # (0-0.2) k/uL Manual Slide Review Hypochromasia Poikilocytosis (manual Anisocytosis (manual) Macrocytosis Sample Site ABG pH (7.35-7.45) ABG pCO2 (35-45) mmHg ABG pO2 (83-108) mmHg ABG HCO3 (21-25) mmol/L ABG Total CO2 (19-24) mmol/L ABG O2 Saturation (94-97) % ABG Base Excess mmol/L Raulito Test VBG pH (7.31-7.41) VBG pCO2 (37-51) mmHg VBG HCO3 (24-28) mmol/L FiO2 % Sodium (137-145) mmol/L Potassium (3.5-5.1) mmol/L Chloride (98-107) mmol/L Carbon Dioxide (22-30) mmol/L Anion Gap mmol/L BUN (9-20) mg/dL Creatinine (0.66-1.25) mg/dL Est GFR (CKD-EPI)AfAm (>60 ml/min/1.73 sqM) Est GFR (CKD-EPI)NonAf (>60 ml/min/1.73 sqM) Glucose (74-99) mg/dL POC Glucose (mg/dL) >600 H (75-99) mg/dL POC Glu Silverer ID [place] Phosphorus (2.5-4.5) mg/dL Troponin I (0.000-0.034) ng/mL Urine Color Urine Appearance (Clear) Urine pH (5.0-8.0) Ur Specific [place] (1.001-1.035) Urine Protein (Negative) Urine Glucose (UA) (Negative) Urine Ketones (Negative) Urine Blood (Negative) Urine Nitrite (Negative) Urine Bilirubin (Negative) Urine Urobilinogen (<2.0) mg/dL Ur Leukocyte Esterase (Negative) Urine RBC (0-5) /hpf Urine WBC (0-5) /hpf Urine Bacteria (None) /hpf Urine Mucus (None) /hpf Acetone, Qual (Negative) Critical Care Time Critical Care Time: Yes Total Critical Care Time: 32 <Keaton Love - Last Filed: 10/21/19 17:11> Disposition <Jai Garcia - Last Filed: 10/21/19 15:20> Is patient prescribed a controlled substance at d/c from ED?: No Decision Time: 17:07 <Keaton Love - Last Filed: 10/21/19 17:11> Clinical Impression: Hyperosmolar syndrome, Pneumonia, Sepsis Narrative: [facility] (Keaton Love) Disposition: ADMITTED IP TO THIS HOSP Referrals: Adelso Riggs MD [Primary Care Provider] - 1-2 days
[2019-10-21 14:04] LABS: Glucose,Whole Blood >600 mg/dL (75-99)
[2019-10-21 14:24] LABS: African American GFR (CKD) 32 (>60 ml/min/1.73 sqM); Anion Gap 34 mmol/L; Blood Urea Nitrogen 33 mg/dL (9-20); Non-African American GFR(CKD) 27 (>60 ml/min/1.73 sqM); Potassium 5.7 mmol/L (3.5-5.1)
--- NOTE | 2019-10-21 14:27 | XR ---
EXAMINATION TYPE: XR chest 1V portable DATE OF EXAM: 10/21/2019 COMPARISON: 07/27/2018 HISTORY: Shortness of breath TECHNIQUE: Single frontal view of the chest is obtained. FINDINGS: Hyperinflation noted. Exam limited due to rotation. Basilar subsegmental consolidation are noted. No pneumothorax. Diffuse osteopenia. Subsegmental consolidation right lower lobe. IMPRESSION: 1. Right lower lobe subsegmental infiltrate or atelectasis. Correlate clinically.
[2019-10-21] MEDS: INSULIN REGULAR 100 UNIT in SODIUM CHLORIDE 0.9% 100 ML IV SCH (14:40)
[2019-10-21 14:43] LABS: VBG PH 7.03 (7.31-7.41)
[2019-10-21] MEDS ORDERED: MIDAZOLAM 1 MG/ML 5 ML VIAL IV STA (14:48)
[2019-10-21 14:52] LABS: Sodium 116 mmol/L (137-145)
[2019-10-21 14:53] LABS: Carbon Dioxide 8 mmol/L (22-30); Chloride 74 mmol/L (98-107)
[2019-10-21 14:55] LABS: Glucose >1875 mg/dL (74-99)
[2019-10-21 15:08] LABS: Glucose,Whole Blood >600 mg/dL (75-99)
[2019-10-21 15:09] LABS: Appearance,Urine Clear (Clear); Bacteria,Urine Rare /hpf; Bilirubin,Urine Negative (Negative); Blood,Urine Trace (Negative); Color,Urine Light Yellow; Glucose,Urine (UA) 4+ (Negative); Ketones,Urine Negative (Negative); Leukocyte Esterase,Urine Negative (Negative); Mucus,Urine Rare /hpf; Nitrite,Urine Negative (Negative); Protein,Urine Negative (Negative); RBC,Urine 1 /hpf (0-5); Specific Gravity,Urine 1.025 (1.001-1.035); Urobilinogen,Urine <2.0 mg/dL (<2.0); WBC,Urine 1 /hpf (0-5)
[2019-10-21 15:13] LABS: Basophils % (A) 0 %; Eosinophils % (A) 0 %; HCT 52.5 % (39.0-53.0); HGB 13.7 gm/dL (13.0-17.5); Hypochromasia Marked; Lymphocytes # (A) 0.4 k/uL (1.0-4.8); Lymphocytes % (A) 4 %; MCH 32.5 pg (25.0-35.0); MCHC 26.2 g/dL (31.0-37.0); MCV 124.1 fL (80.0-100.0); Macrocytosis Marked; Monocytes # (A) 0.5 k/uL (0-1.0); Monocytes % (A) 4 %; Neutrophils % (A) 91 %; Platelet Count 383 k/uL (150-450); RBC 4.23 m/uL (4.30-5.90); RDW 12.9 % (11.5-15.5)
[2019-10-21] MEDS ORDERED: SODIUM CHLORIDE 0.9% 1,000 ML IV ONE (15:19)
[2019-10-21] MEDS ORDERED: SODIUM CHLORIDE 0.9% 500 ML 500 ML IV ONE (15:19)
--- NOTE | 2019-10-21 15:24 | CT ---
EXAMINATION TYPE: CT brain wo con DATE OF EXAM: 10/21/2019 COMPARISON: 07/27/2018 HISTORY: Altered mental status. CT DLP: 1098.4 mGycm Automated exposure control for dose reduction was used. FINDINGS: Moderate degenerative change of the greater frontal lobe component. Low-attenuation the white matter is nonspecific but most typical remote ischemic change. Calvarium intact. No midline shift or mass ef fect. Slightly asymmetric density to the left distal ICA and proximal M1 segment left MCA. IMPRESSION: No acute hemorrhage. DEGENERATIVE AND NONSPECIFIC WHITE MATTER CHANGES MOST TYPICAL REMOTE ISCHEMIA. PROXIMAL LEFT MCA SLIGHTLY HYPERDENSE RELATIVE TO THE RIGHT WHICH COULD BE RELATED TO PARTIAL VOLUME AVERAGING. IF THERE IS RIGHT-SIDED SYMPTOMS CORRELATE WITH POSTCONTRAST EXAM..
[2019-10-21 15:28] LABS: ABG Base Excess -26.4 mmol/L; ABG PO2 125 mmHg (83-108); ABG TCO2 5 mmol/L (19-24); Allen Test Performed? Yes
[2019-10-21 15:32] LABS: ABG HCO3 5 mmol/L (21-25); ABG PCO2 19 mmHg (35-45)
[2019-10-21 15:39] LABS: Anisocytosis (M) Present; Poikilocytosis (M) Present
[2019-10-21 16:04] LABS: Glucose,Whole Blood >600 mg/dL (75-99)
[2019-10-21] MEDS ORDERED: LORazepam 2 MG/ML INJ IV STA (16:05)
[2019-10-21] MEDS ORDERED: PNEUMONIA PROTOCOL UTILIZED 1 EACH MISC PO PRN (17:11)
[2019-10-21] MEDS ORDERED: LEVOFLOXACIN 750MG-D5W PMX 750 MG in DEXTROSE/WATER 1 150ML.BAG IVPB STA (17:11)
[2019-10-21] MEDS ORDERED: NALOXONE 0.4 MG/ML 1 ML VIAL IV PRN (17:11)
[2019-10-21] MEDS ORDERED: ASPIRIN 81 MG PO STA (17:13)
[2019-10-21] MEDS ORDERED: NITROGLYCERIN SL TABS 0.4 MG TAB SUBLINGUAL PRN (17:13)
[2019-10-21] MEDS ORDERED: HEPARIN SODIUM,PORCINE 5,000 UNIT/ML 1 ML VIAL IV PRN (17:13)
[2019-10-21] MEDS ORDERED: HEPARIN SODIUM,PORCINE 5,000 UNIT/ML 1 ML VIAL IV ONE (17:13)
[2019-10-21] MEDS ORDERED: ACETAMINOPHEN TAB 325 MG TAB PO PRN (17:14)
[2019-10-21] MEDS ORDERED: HEPARIN SOD,PORK IN 0.45% NACL 25,000 UNIT in 0.45% NACL 1 250ML.BAG IV SCH (17:15)
[2019-10-21 17:29] LABS: Calcium 7.9 mg/dL (8.4-10.2); Potassium 4.3 mmol/L (3.5-5.1)
--- NOTE | 2019-10-21 18:06 | ED ---
Medical Decision Making - Lab Data Result diagrams: 10/21/19 14:00 10/21/19 16:48 Lab Results 10/21/19 10/21/19 10/21/19 Range/Units 14:00 14:00 14:00 WBC 11.0 H (3.8-10.6) k/uL RBC 4.23 L (4.30-5.90) m/uL Hgb 13.7 (13.0-17.5) gm/dL Hct 52.5 (39.0-53.0) % MCV 124.1 H (80.0-100.0) fL MCH 32.5 (25.0-35.0) pg MCHC 26.2 L (31.0-37.0) g/dL RDW 12.9 (11.5-15.5) % Plt Count 383 (150-450) k/uL Neutrophils % 91 % Lymphocytes % 4 % Monocytes % 4 % Eosinophils % 0 % Basophils % 0 % Neutrophils # 10.0 H (1.3-7.7) k/uL Lymphocytes # 0.4 L (1.0-4.8) k/uL Monocytes # 0.5 (0-1.0) k/uL Eosinophils # 0.0 (0-0.7) k/uL Basophils # 0.0 (0-0.2) k/uL Manual Slide Review Performed Hypochromasia Marked Poikilocytosis (manual Present Anisocytosis (manual) Present Macrocytosis Marked A Sample Site ABG pH (7.35-7.45) ABG pCO2 (35-45) mmHg ABG pO2 (83-108) mmHg ABG HCO3 (21-25) mmol/L ABG Total CO2 (19-24) mmol/L ABG O2 Saturation (94-97) % ABG Base Excess mmol/L Raulito Test VBG pH (7.31-7.41) VBG pCO2 (37-51) mmHg VBG HCO3 (24-28) mmol/L FiO2 % Sodium 116 L* (137-145) mmol/L Potassium 5.7 H (3.5-5.1) mmol/L Chloride 74 L* (98-107) mmol/L Carbon Dioxide 8 L* (22-30) mmol/L Anion Gap 34 mmol/L BUN 33 H (9-20) mg/dL Creatinine 2.18 H (0.66-1.25) mg/dL Est GFR (CKD-EPI)AfAm 32 (>60 ml/min/1.73 sqM) Est GFR (CKD-EPI)NonAf 27 (>60 ml/min/1.73 sqM) Glucose >1875 H* (74-99) mg/dL POC Glucose (mg/dL) (75-99) mg/dL POC Glu Glue Jointer Operator ID Calcium (8.4-10.2) mg/dL Phosphorus (2.5-4.5) mg/dL Troponin I 0.881 H* (0.000-0.034) ng/mL Urine Color Urine Appearance (Clear) Urine pH (5.0-8.0) Ur Specific [place] (1.001-1.035) Urine Protein (Negative) Urine Glucose (UA) (Negative) Urine Ketones (Negative) Urine Blood (Negative) Urine Nitrite (Negative) Urine Bilirubin (Negative) Urine Urobilinogen (<2.0) mg/dL Ur Leukocyte Esterase (Negative) Urine RBC (0-5) /hpf Urine WBC (0-5) /hpf Urine Bacteria (None) /hpf Urine Mucus (None) /hpf Acetone, Qual Negative (Negative) 10/21/19 10/21/19 10/21/19 Range/Units 14:00 14:02 14:34 WBC (3.8-10.6) k/uL RBC (4.30-5.90) m/uL Hgb (13.0-17.5) gm/dL Hct (39.0-53.0) % MCV (80.0-100.0) fL MCH (25.0-35.0) pg MCHC (31.0-37.0) g/dL RDW (11.5-15.5) % Plt Count (150-450) k/uL Neutrophils % % Lymphocytes % % Monocytes % % Eosinophils % % Basophils % % Neutrophils # (1.3-7.7) k/uL Lymphocytes # (1.0-4.8) k/uL Monocytes # (0-1.0) k/uL Eosinophils # (0-0.7) k/uL Basophils # (0-0.2) k/uL Manual Slide Review Hypochromasia Poikilocytosis (manual Anisocytosis (manual) Macrocytosis Sample Site ABG pH (7.35-7.45) ABG pCO2 (35-45) mmHg ABG pO2 (83-108) mmHg ABG HCO3 (21-25) mmol/L ABG Total CO2 (19-24) mmol/L ABG O2 Saturation (94-97) % ABG Base Excess mmol/L Raulito Test VBG pH (7.31-7.41) VBG pCO2 (37-51) mmHg VBG HCO3 (24-28) mmol/L FiO2 % Sodium (137-145) mmol/L Potassium (3.5-5.1) mmol/L Chloride (98-107) mmol/L Carbon Dioxide (22-30) mmol/L Anion Gap mmol/L BUN (9-20) mg/dL Creatinine (0.66-1.25) mg/dL Est GFR (CKD-EPI)AfAm (>60 ml/min/1.73 sqM) Est GFR (CKD-EPI)NonAf (>60 ml/min/1.73 sqM) Glucose (74-99) mg/dL POC Glucose (mg/dL) >600 H (75-99) mg/dL POC Glu Glue Jointer Operator ID [place], Linda Calcium (8.4-10.2) mg/dL Phosphorus 8.8 H (2.5-4.5) mg/dL Troponin I (0.000-0.034) ng/mL Urine Color Light Yellow Urine Appearance Clear (Clear) Urine pH 5.0 (5.0-8.0) Ur Specific [place] 1.025 (1.001-1.035) Urine Protein Negative (Negative) Urine Glucose (UA) 4+ H (Negative) Urine Ketones Negative (Negative) Urine Blood Trace H (Negative) Urine Nitrite Negative (Negative) Urine Bilirubin Negative (Negative) Urine Urobilinogen <2.0 (<2.0) mg/dL Ur Leukocyte Esterase Negative (Negative) Urine RBC 1 (0-5) /hpf Urine WBC 1 (0-5) /hpf Urine Bacteria Rare H (None) /hpf Urine Mucus Rare H (None) /hpf Acetone, Qual (Negative) 10/21/19 10/21/19 10/21/19 Range/Units 14:34 15:06 15:25 WBC (3.8-10.6) k/uL RBC (4.30-5.90) m/uL Hgb (13.0-17.5) gm/dL Hct (39.0-53.0) % MCV (80.0-100.0) fL MCH (25.0-35.0) pg MCHC (31.0-37.0) g/dL RDW (11.5-15.5) % Plt Count (150-450) k/uL Neutrophils % % Lymphocytes % % Monocytes % % Eosinophils % % Basophils % % Neutrophils # (1.3-7.7) k/uL Lymphocytes # (1.0-4.8) k/uL Monocytes # (0-1.0) k/uL Eosinophils # (0-0.7) k/uL Basophils # (0-0.2) k/uL Manual Slide Review Hypochromasia Poikilocytosis (manual Anisocytosis (manual) Macrocytosis Sample Site L radial ABG pH 7.00 L* (7.35-7.45) ABG pCO2 19 L* (35-45) mmHg ABG pO2 125 H (83-108) mmHg ABG HCO3 5 L* (21-25) mmol/L ABG Total CO2 5 L (19-24) mmol/L ABG O2 Saturation 97.0 (94-97) % ABG Base Excess -26.4 mmol/L Raulito Test Yes VBG pH 7.03 L* (7.31-7.41) VBG pCO2 31 L (37-51) mmHg VBG HCO3 8 L* (24-28) mmol/L FiO2 28 % Sodium (137-145) mmol/L Potassium (3.5-5.1) mmol/L Chloride (98-107) mmol/L Carbon Dioxide (22-30) mmol/L Anion Gap mmol/L BUN (9-20) mg/dL Creatinine (0.66-1.25) mg/dL Est GFR (CKD-EPI)AfAm (>60 ml/min/1.73 sqM) Est GFR (CKD-EPI)NonAf (>60 ml/min/1.73 sqM) Glucose (74-99) mg/dL POC Glucose (mg/dL) >600 H (75-99) mg/dL POC Glu Glue Jointer Operator ID Bulgar[place], Linda Calcium (8.4-10.2) mg/dL Phosphorus (2.5-4.5) mg/dL Troponin I (0.000-0.034) ng/mL Urine Color Urine Appearance (Clear) Urine pH (5.0-8.0) Ur Specific [place] (1.001-1.035) Urine Protein (Negative) Urine Glucose (UA) (Negative) Urine Ketones (Negative) Urine Blood (Negative) Urine Nitrite (Negative) Urine Bilirubin (Negative) Urine Urobilinogen (<2.0) mg/dL Ur Leukocyte Esterase (Negative) Urine RBC (0-5) /hpf Urine WBC (0-5) /hpf Urine Bacteria (None) /hpf Urine Mucus (None) /hpf Acetone, Qual (Negative) 10/21/19 10/21/19 Range/Units 16:02 16:48 WBC (3.8-10.6) k/uL RBC (4.30-5.90) m/uL Hgb (13.0-17.5) gm/dL Hct (39.0-53.0) % MCV (80.0-100.0) fL MCH (25.0-35.0) pg MCHC (31.0-37.0) g/dL RDW (11.5-15.5) % Plt Count (150-450) k/uL Neutrophils % % Lymphocytes % % Monocytes % % Eosinophils % % Basophils % % Neutrophils # (1.3-7.7) k/uL Lymphocytes # (1.0-4.8) k/uL Monocytes # (0-1.0) k/uL Eosinophils # (0-0.7) k/uL Basophils # (0-0.2) k/uL Manual Slide Review Hypochromasia Poikilocytosis (manual Anisocytosis (manual) Macrocytosis Sample Site ABG pH (7.35-7.45) ABG pCO2 (35-45) mmHg ABG pO2 (83-108) mmHg ABG HCO3 (21-25) mmol/L ABG Total CO2 (19-24) mmol/L ABG O2 Saturation (94-97) % ABG Base Excess mmol/L [place] Test VBG pH (7.31-7.41) VBG pCO2 (37-51) mmHg VBG HCO3 (24-28) mmol/L FiO2 % Sodium 129 L (137-145) mmol/L Potassium 4.3 (3.5-5.1) mmol/L Chloride 96 L (98-107) mmol/L Carbon Dioxide 6 L* (22-30) mmol/L Anion Gap 27 mmol/L BUN 30 H (9-20) mg/dL Creatinine 1.91 H (0.66-1.25) mg/dL Est GFR (CKD-EPI)AfAm 37 (>60 ml/min/1.73 sqM) Est GFR (CKD-EPI)NonAf 32 (>60 ml/min/1.73 sqM) Glucose 1509 H* (74-99) mg/dL POC Glucose (mg/dL) >600 H (75-99) mg/dL POC Glu Glue Jointer Operator ID BulgarianLinda Calcium 7.9 L (8.4-10.2) mg/dL Phosphorus (2.5-4.5) mg/dL Troponin I (0.000-0.034) ng/mL Urine Color Urine Appearance (Clear) Urine pH (5.0-8.0) Ur Specific [place] (1.001-1.035) Urine Protein (Negative) Urine Glucose (UA) (Negative) Urine Ketones (Negative) Urine Blood (Negative) Urine Nitrite (Negative) Urine Bilirubin (Negative) Urine Urobilinogen (<2.0) mg/dL Ur Leukocyte Esterase (Negative) Urine RBC (0-5) /hpf Urine WBC (0-5) /hpf Urine Bacteria (None) /hpf Urine Mucus (None) /hpf Acetone, Qual (Negative) Disposition Clinical Impression: Hyperosmolar syndrome, Pneumonia, Sepsis Disposition: ADMITTED IP TO THIS HOSP Is patient prescribed a controlled substance at d/c from ED?: No Procedures - [place] Protocol (Time Out) Nurse: Linda Villa R - Sepsis Sepsis Focused Exam #1 Time Sepsis Criteria Met: 17:00 Sepsis Focused Exam Date: 10/21/19 Sepsis Focused Exam Time: 18:05 Sepsis Focused Exam Complete: Yes Vital Signs & RN Notes Reviewed: Yes Capillary Refill: < 2 Seconds: Fingers, Toes Peripheral Pulses: Normal: Radial (R), Radial (L) Skin Color: Normal for Patient Respiratory Exam: normal lung sounds, other (Increased respiratory rate) Cardiovascular Exam: regular rate, normal rhythm
[2019-10-21 18:07] LABS: Glucose,Whole Blood >600 mg/dL (75-99)
[2019-10-21] MEDS ORDERED: SODIUM CHLORIDE 0.9% 1,000 ML with POTASSIUM CHLORIDE 20 MEQ IV SCH ×2 (18:16)
[2019-10-21] MEDS ORDERED: 0.9% NACL WITH KCL 20 MEQ/L 1,000 ML IV SCH (18:30)
[2019-10-21] MEDS ORDERED: ASPIRIN 300 MG SUPP RECTAL STA (18:41)
[2019-10-21] MEDS ORDERED: SODIUM CHLORIDE 0.45% 1,000 ML with POTASSIUM CHLORIDE 40 MEQ IV SCH ×2 (18:45)
[2019-10-21 18:53] LABS: Partial Thromboplastin Time 22.9 sec (22.0-30.0); Prothrombin Time 10.1 sec (9.0-12.0)
[2019-10-21 18:55] LABS: Calcium 8.8 mg/dL (8.4-10.2); Potassium 3.8 mmol/L (3.5-5.1)
[2019-10-21 19:26] LABS: ABG Base Excess -20.8 mmol/L; ABG Oxygen Saturation 98.8 % (94-97); ABG PCO2 26 mmHg (35-45); ABG PO2 138 mmHg (83-108); ABG TCO2 9 mmol/L (19-24); Allen Test Performed? Yes
--- NOTE | 2019-10-21 19:50 | P.HPIM ---
History of Present Illness H&P Date: 10/21/19 Chief Complaint: Altered mentation 79-year-old male with PMH of diabetes mellitus on oral hypoglycemics, hypertension presents the ED for altered mentation. Apparently, patient was visited by his nurse who noted an extremely high blood glucose which prompted his hospital visit. Patient is altered and he is unable to provide any meaningful history. Majority of documentation was obtained from chart review and discussion with his son. Apparently, patient has been confused and disoriented which is progressively been worsening over the past 2 weeks. His son reports that the patient fell a week ago and did not seek medical attention. Patient lives with his who is suffering from advanced Alzheimer's dementia and is currently in hospice. According to the son, patient drinks 4 L of soda on a daily basis. Son reports that patient is noncompliant with her diabetic diet. In the ED, vital signs showed a T low of 97.5 Fahrenheit, pulse of 102, tachypnea with respiratory rate of 28, BP of 85/49 and 89% on room air. CBC showed leukocytosis of 11 and MCV of 124.1. ABG showed pH of 7, pCO2 19, bicarbonate of 8. CMP showed sodium of 116, potassium of 5.7, chloride of 74, bicarbonate of 8, BUN 33, creatinine 2.18, glucose greater than 1875. Troponin was 0.881 with EKG showing sinus tachycardia. Urinalysis shows 4+ glucose and trace blood. Acetone was negative. CT brain was negative for hemorrhage but showed slightly hyperdense left MCA compared to right. Chest x-ray showed possible right lower lobe infiltrate. Patient is admitted to ICU for sepsis, troponin elevation and diabetic ketoacidosis. 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 gamez, YESENIA,back pain, skin cancer, blood in stool, History of Any Multi-Drug Resistant Organisms: None Reported Date of last positivie culture/infection: None MDRO Source:: None Past Surgical History: Adenoidectomy, Joint Replacement, Tonsillectomy Additional Past Surgical History / Comment(s): left hip, left knee replaced, Past Anesthesia/Blood Transfusion Reactions: No Reported Reaction Past Psychological History: No Psychological Hx Reported Smoking Status: Former smoker Past Alcohol Use History: None Reported Past Drug Use History: None Reported - Past Family History Son(s) Additional Family Medical History / Comment(s): unable to obtain patient not good historian Mother Additional Family Medical History / Comment(s): unable to obtain patient not a good historian Medications and Allergies Home Medications Medication Instructions Recorded Confirmed Type DULoxetine HCL [Cymbalta] 60 mg PO DAILY 05/13/18 07/27/18 History Pregabalin [Lyrica] 100 mg PO TID 05/13/18 07/27/18 History metFORMIN HCL 1,000 mg PO BID 05/13/18 07/27/18 History Donepezil [Aricept] 5 mg PO HS #30 tab 05/15/18 07/27/18 Rx Cholecalciferol [Vitamin D3 (25 5,000 unit PO DAILY 07/27/18 07/27/18 History Mcg = 1000 Iu)] Lisinopril-Hctz 20-12.5 mg 1 tab PO BID 07/27/18 07/27/18 History [Zestoretic 20-12.5] Tamsulosin [Flomax] 0.4 mg PO DAILY 07/27/18 07/27/18 History Zolpidem [Ambien] 10 mg PO HS 07/27/18 07/27/18 History Pantoprazole [Protonix] 40 mg PO DAILY #30 tablet. 07/28/18 Rx Allergies Allergy/AdvReac Type Severity Reaction Status Date / Time amoxicillin [Amoxicillin] Allergy Nausea & Verified 07/27/18 13:17 Vomiting & Diarrhea morphine Allergy Unknown Verified 07/27/18 13:17 Physical Exam Vitals: Vital Signs Temp Pulse Resp BP Pulse Ox 10/21/19 15:58 100 27 H 110/69 96 10/21/19 15:17 98 27 H 115/63 93 L 10/21/19 14:43 101 H 28 H 114/72 96 10/21/19 13:43 97.5 F L 102 H 26 H 85/49 89 L Intake and Output 10/21/19 10/21/19 10/21/19 06:59 14:59 22:59 Other: Weight 68.6 kg General: [non toxic], [no distress], [appears at stated age] Derm: [warm], [dry], [mottled skin] Head: [atraumatic], [normocephalic], [symmetric] Eyes: [EOMI], [no lid lag], [anicteric sclera] Mouth: [no lip lesion], [mucus membranes moist] Cardiovascular: [S1S2 reg], [tachycardia], [positive DP pulse bilateral], Lungs: [Decreased breath sounds bilateral], [no rhonchi, no rales] , [no accessory muscle use] Abdominal: [soft], [ nontender to palpation], [no guarding], [no appreciable organomegaly] Ext: [no gross muscle atrophy], [no edema], [no contractures] Neuro: [Unable to determine] Psych: [Unable to determine] Results CBC & Chem 7: 10/21/19 14:00 10/21/19 18:30 Labs: Abnormal Lab Results - Last 24 Hours (Table) 10/21/19 10/21/19 10/21/19 Range/Units 14:00 14:00 14:00 WBC 11.0 H (3.8-10.6) k/uL RBC 4.23 L (4.30-5.90) m/uL MCV 124.1 H (80.0-100.0) fL MCHC 26.2 L (31.0-37.0) g/dL Neutrophils # 10.0 H (1.3-7.7) k/uL Lymphocytes # 0.4 L (1.0-4.8) k/uL Macrocytosis Marked A ABG pH (7.35-7.45) ABG pCO2 (35-45) mmHg ABG pO2 (83-108) mmHg ABG HCO3 (21-25) mmol/L ABG Total CO2 (19-24) mmol/L VBG pH (7.31-7.41) VBG pCO2 (37-51) mmHg VBG HCO3 (24-28) mmol/L Sodium 116 L* (137-145) mmol/L Potassium 5.7 H (3.5-5.1) mmol/L Chloride 74 L* (98-107) mmol/L Carbon Dioxide 8 L* (22-30) mmol/L BUN 33 H (9-20) mg/dL Creatinine 2.18 H (0.66-1.25) mg/dL Glucose >1875 H* (74-99) mg/dL POC Glucose (mg/dL) (75-99) mg/dL Phosphorus (2.5-4.5) mg/dL Troponin I 0.881 H* (0.000-0.034) ng/mL Urine Glucose (UA) (Negative) Urine Blood (Negative) Urine Bacteria (None) /hpf Urine Mucus (None) /hpf 10/21/19 10/21/19 10/21/19 Range/Units 14:00 14:02 14:34 WBC (3.8-10.6) k/uL RBC (4.30-5.90) m/uL MCV (80.0-100.0) fL MCHC (31.0-37.0) g/dL Neutrophils # (1.3-7.7) k/uL Lymphocytes # (1.0-4.8) k/uL Macrocytosis ABG pH (7.35-7.45) ABG pCO2 (35-45) mmHg ABG pO2 (83-108) mmHg ABG HCO3 (21-25) mmol/L ABG Total CO2 (19-24) mmol/L VBG pH (7.31-7.41) VBG pCO2 (37-51) mmHg VBG HCO3 (24-28) mmol/L Sodium (137-145) mmol/L Potassium (3.5-5.1) mmol/L Chloride (98-107) mmol/L Carbon Dioxide (22-30) mmol/L BUN (9-20) mg/dL Creatinine (0.66-1.25) mg/dL Glucose (74-99) mg/dL POC Glucose (mg/dL) >600 H (75-99) mg/dL Phosphorus 8.8 H (2.5-4.5) mg/dL Troponin I (0.000-0.034) ng/mL Urine Glucose (UA) 4+ H (Negative) Urine Blood Trace H (Negative) Urine Bacteria Rare H (None) /hpf Urine Mucus Rare H (None) /hpf 10/21/19 10/21/19 10/21/19 Range/Units 14:34 15:06 15:25 WBC (3.8-10.6) k/uL RBC (4.30-5.90) m/uL MCV (80.0-100.0) fL MCHC (31.0-37.0) g/dL Neutrophils # (1.3-7.7) k/uL Lymphocytes # (1.0-4.8) k/uL Macrocytosis ABG pH 7.00 L* (7.35-7.45) ABG pCO2 19 L* (35-45) mmHg ABG pO2 125 H (83-108) mmHg ABG HCO3 5 L* (21-25) mmol/L ABG Total CO2 5 L (19-24) mmol/L VBG pH 7.03 L* (7.31-7.41) VBG pCO2 31 L (37-51) mmHg VBG HCO3 8 L* (24-28) mmol/L Sodium (137-145) mmol/L Potassium (3.5-5.1) mmol/L Chloride (98-107) mmol/L Carbon Dioxide (22-30) mmol/L BUN (9-20) mg/dL Creatinine (0.66-1.25) mg/dL Glucose (74-99) mg/dL POC Glucose (mg/dL) >600 H (75-99) mg/dL Phosphorus (2.5-4.5) mg/dL Troponin I (0.000-0.034) ng/mL Urine Glucose (UA) (Negative) Urine Blood (Negative) Urine Bacteria (None) /hpf Urine Mucus (None) /hpf 10/21/19 Range/Units 16:02 WBC (3.8-10.6) k/uL RBC (4.30-5.90) m/uL MCV (80.0-100.0) fL MCHC (31.0-37.0) g/dL Neutrophils # (1.3-7.7) k/uL Lymphocytes # (1.0-4.8) k/uL Macrocytosis ABG pH (7.35-7.45) ABG pCO2 (35-45) mmHg ABG pO2 (83-108) mmHg ABG HCO3 (21-25) mmol/L ABG Total CO2 (19-24) mmol/L VBG pH (7.31-7.41) VBG pCO2 (37-51) mmHg VBG HCO3 (24-28) mmol/L Sodium (137-145) mmol/L Potassium (3.5-5.1) mmol/L Chloride (98-107) mmol/L Carbon Dioxide (22-30) mmol/L BUN (9-20) mg/dL Creatinine (0.66-1.25) mg/dL Glucose (74-99) mg/dL POC Glucose (mg/dL) >600 H (75-99) mg/dL Phosphorus (2.5-4.5) mg/dL Troponin I (0.000-0.034) ng/mL Urine Glucose (UA) (Negative) Urine Blood (Negative) Urine Bacteria (None) /hpf Urine Mucus (None) /hpf Assessment and Plan Assessment: Diabetic ketoacidosis Sepsis, possible community acquired pneumonia Metabolic encephalopathy likely due to the above Troponin elevation likely demand ischemia Acute kidney injury and probable chronic kidney disease Hyponatremia Leukocytosis Macrocytosis History of hypertension ABG shows pH 7, pCO2 19, bicarbonate 8. Initial blood glucose > 1875. Suspect dietary non compliance. Plans: Start 1/2 normal saline with 40 mEq potassium chloride at 150 mL per hour. Regular IV insulin at 0.1 unit per kilogram per hour. Repeat serum glucose every hour. Repeat BMP every 4 hours. Patient needs diabetic education. Nothing by mouth. Protonix IV. Patient meets sepsis criteria. He is hypothermic. Patient is tachycardic and tachypneic. He has a leukocytosis of 11 with neutrophilia on admission. He was hypotensive in the ED responded to fluid bolus. Chest x-ray shows possible right lower lobe infiltrate. Plans: Follow blood culture. Follow lactic acid. Follow sputum culture. Tylenol as needed for fever or chills. Levofloxacin by mouth. IVF as above. Repeat chest x-ray tomorrow morning. Follow pulmonology consultation. CT brain shows degenerative and nonspecific white matter changes, left MCA slightly hyperdense relative to right. Plans: Likely due to the above. Follow B12 and folic acid. Troponin 0.881 with EKG showing sinus tachycardia. Plans: Start aspirin. Hold heparin drip pending second troponin. Trend troponin/EKG to rule out ACS. Telemetry monitoring. Follow cardiology recommendations. Creatinine 2.18-1.91. Likely related to the above. Plans: IVF as above. Repea t BMP tomorrow. Sodium 116-129. Likely pseudo-hyponatremia from hyperglycemia. Repeat BMP shows corrected sodium of 152. Plans: IVF as above. Repeat BMP every 4 hours. Leukocytosis of 11 with neutrophilia. Likely reactive. Possible right lower lobe infiltrate on chest x-ray. Plans: Repeat CBC tomorrow morning. Continue antibiotics as above. MCV 124.1. Plans: Follow B12 and folic acid. Plans: Hold all antihypertensive medication. DVT prophylaxis: [Heparin drip] Discussed with: [Patient and son] Anticipated discharge: [3-4 days] Anticipated discharge place: [Home versus [facility]] A total of [45] minutes was spent on the care of this complex patient more than 50% of the time was spent in counseling and care coordination. Case was discussed with his son Jace. Jace is the POA. Jace states that his father would like to be full code. Patient is admitted for anticipated greater than 48 hours admission for diabetic ketoacidosis and sepsis possibly related to community-acquired pneumonia. He also has troponin elevation likely from demand ischemia. Pulmonology/child care director consulted for ICU management. Cardiology on board. Prognosis is guarded.
[2019-10-21 19:53] LABS: Glucose,Whole Blood >600 mg/dL (75-99)
[2019-10-21 20:04] LABS: ABG HCO3 8 mmol/L (21-25); ABG PH 7.13 (7.35-7.45)
[2019-10-21] MEDS ORDERED: SODIUM BICARB 8.4% 50 ML SYR (1 MEQ/ML) IV STA (20:52)
[2019-10-21 20:58] LABS: Glucose,Whole Blood >600 mg/dL (75-99)
[2019-10-21] MEDS: 0.45% NACL WITH KCL 20 MEQ/L 1,000 ML IV SCH (21:30)
[2019-10-21] MEDS ORDERED: FLUCONAZOLE IN NACL,ISO-OSM 100 MG in SALINE 1 50ML.BAG IVPB SCH (22:00)
[2019-10-21 22:06] LABS: Glucose,Whole Blood >600 mg/dL (75-99)
[2019-10-21 22:48] LABS: Calcium 8.9 mg/dL (8.4-10.2); Potassium 3.4 mmol/L (3.5-5.1)
[2019-10-21 23:15] LABS: Glucose,Whole Blood >600 mg/dL (75-99)
[2019-10-22] MEDS: POTASSIUM CHLORIDE 10 MEQ in WATER FOR INJECTION 1 100ML.BAG IVPB SCH ×4 (00:09→03:12)
[2019-10-22] MEDS: HEPARIN SODIUM,PORCINE 5,000 UNIT/ML 1 ML VIAL SQ SCH ×4 (00:11→20:25)
[2019-10-22 00:35] LABS: Glucose,Whole Blood >600 mg/dL (75-99)
[2019-10-22 01:51] LABS: Glucose,Whole Blood >600 mg/dL (75-99)
[2019-10-22 02:42] LABS: Calcium 9.1 mg/dL (8.4-10.2)
[2019-10-22 02:53] LABS: Potassium 4.9 mmol/L (3.5-5.1)
[2019-10-22] MEDS: 0.45% NACL WITH KCL 20 MEQ/L 1,000 ML IV SCH ×2 (03:12→03:15)
[2019-10-22] MEDS: INSULIN REGULAR 100 UNIT in SODIUM CHLORIDE 0.9% 100 ML IV SCH ×2 (03:13→22:37)
[2019-10-22 04:01] LABS: Glucose,Whole Blood 510 mg/dL (75-99)
[2019-10-22] MEDS ORDERED: Phosphorus Replacement Protoco 1 EACH MISC MISCELLANE PRN (04:25)
[2019-10-22] MEDS: POTASSIUM PHOSPHATE 10 MMOL in SODIUM CHLORIDE 0.9% 250 ML IV SCH ×2 (04:59→07:04)
[2019-10-22 05:00] LABS: Glucose,Whole Blood 512 mg/dL (75-99)
[2019-10-22 06:04] LABS: Glucose,Whole Blood 404 mg/dL (75-99)
[2019-10-22 06:33] LABS: Basophils % (A) 0 %; Eosinophils # (A) 0.1 k/uL (0-0.7); Eosinophils % (A) 1 %; HCT 48.4 % (39.0-53.0); HGB 16.3 gm/dL (13.0-17.5); Lymphocytes # (A) 0.7 k/uL (1.0-4.8); Lymphocytes % (A) 4 %; MCHC 33.7 g/dL (31.0-37.0); Mean Platelet Volume 8.3; Monocytes # (A) 0.5 k/uL (0-1.0); Monocytes % (A) 3 %; Neutrophils # (A) 14.1 k/uL (1.3-7.7); Neutrophils % (A) 91 %; Platelet Count 248 k/uL (150-450); RBC 4.93 m/uL (4.30-5.90); RDW 13.4 % (11.5-15.5); WBC 15.4 k/uL (3.8-10.6)
[2019-10-22 06:53] LABS: Glucose,Whole Blood 407 mg/dL (75-99)
[2019-10-22 06:58] LABS: Albumin 3.4 g/dL (3.5-5.0); Calcium 8.9 mg/dL (8.4-10.2); Potassium 4.7 mmol/L (3.5-5.1); Total Bilirubin 0.5 mg/dL (0.2-1.3); Total Protein 6.4 g/dL (6.3-8.2)
--- NOTE | 2019-10-22 07:05 | XR ---
EXAMINATION TYPE: XR chest 1V portable DATE OF EXAM: 10/22/2019 HISTORY: Shortness of breath. COMPARISON: 10/21/2019 TECHNIQUE: Single view of the chest is submitted. FINDINGS: Demonstrated are scattered senescent parenchymal change. Persistent but improving right lower lobe atelectasis and/or infiltrate. The heart is stable. Hilar and mediastinal structures are within normal limits. Degenerative changes are seen of the dorsal spine. IMPRESSION: 1. Persistent but improving right lower lobe atelectasis and/or infiltrate.
[2019-10-22 07:13] LABS: MCV 98.1 fL (80.0-100.0)
[2019-10-22 08:10] LABS: Glucose,Whole Blood 401 mg/dL (75-99)
[2019-10-22] MEDS ORDERED: SODIUM CHLORIDE 0.9% 2,000 ML IV ONE (08:21)
[2019-10-22] MEDS: PANTOPRAZOLE 40 MG/10 ML VIAL IV SCH (08:44)
[2019-10-22] MEDS ORDERED: ASPIRIN 325 MG TAB PO SCH (09:00)
[2019-10-22 09:13] LABS: Glucose,Whole Blood 331 mg/dL (75-99)
[2019-10-22 10:14] LABS: Glucose,Whole Blood 235 mg/dL (75-99)
[2019-10-22 10:29] LABS: Calcium 7.9 mg/dL (8.4-10.2)
--- NOTE | 2019-10-22 11:09 | P.NPCON ---
History of Present Illness - Reason for Consult acute renal failure, hyponatremia - History of Present Illness Reason for consultation: Acute kidney injury and hyponatremia History of present illness: Patient is a 79-year-old male seen in renal consultation for acute kidney injury and hyponatremia. Patient was brought to the hospital but the EMS due to altered mental status. Patient has history of diabetes mellitus. He had been drinking quite a bit of pop for 1-2 days prior to admission. When his blood sugar was checked it was over 500. At the time of presentation in the ER. His blood sugar was greater than 1875. He was initially started on incentive drip. He did receive a total of 5 L of normal saline since admission. He is currently maintained on D5 half-normal saline with potassium supplementation running at 1 50 mL an hour. Most recent blood sugar was 230. Patient is resting in bed. Sitter is present at bedside. He remains confused. No edema. No vomiting or diarrhea. Acidosis has improved. He is not on any vasopressors. Urine output about 50-30 mL an hour for the last few hours. He was on lisinopril, hydrochlorothiazide as well as oral meds for diabetes including metformin at home. I don't see any nonsteroidals and his home medications. Creatinine was 2.18 on admission and is 1.89 this morning. Creatinine in July 2018 was in the range of 1.2-1.5. Vital signs are stable. General: The patient appeared well nourished and normally developed. HEENT: Head exam is unremarkable. Neck is without jugular venous distension. LUNGS: Lungs are clear to auscultation and percussion. Breath sounds decreased. HEART: Rate and Rhythm are regular. ABDOMEN: Soft, nontender. EXTREMITITES: No clubbing, cyanosis, or edema. 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 years ago, AAA-extending to the iliacs measuring 4.6 cm based on the previous computed tomography scan imaging, DJD,back pain, skin cancer, History of Any Multi-Drug Resistant Organisms: None Reported Date of last positivie culture/infection: None MDRO Source:: None Past Surgical History: Adenoidectomy, Joint Replacement, Tonsillectomy Additional Past Surgical History / Comment(s): left hip, left knee replaced, Past Anesthesia/Blood Transfusion Reactions: No Reported Reaction Past Psychological History: No Psychological Hx Reported Smoking Status: Former smoker Past Alcohol Use History: None Reported Past Drug Use History: None Reported - Past Family History Son(s) Additional Family Medical History / Comment(s): unable to obtain patient not good historian Mother Additional Family Medical History / Comment(s): unable to obtain patient not a good historian Medications and Allergies Home Medications Medication Instructions Recorded Confirmed Type DULoxetine HCL [Cymbalta] 60 mg PO DAILY 05/13/18 10/21/19 History Donepezil [Aricept] 5 mg PO HS #30 tab 05/15/18 10/21/19 Rx Cholecalciferol [Vitamin D3 (25 1,000 unit PO DAILY 07/27/18 10/21/19 History Mcg = 1000 Iu)] Lisinopril-Hctz 20-12.5 mg 1 tab PO BID 07/27/18 10/21/19 History [Zestoretic 20-12.5] Pantoprazole [Protonix] 40 mg PO DAILY #30 tablet. 07/28/18 10/21/19 Rx Cyanocobalamin (Vitamin B-12) 1,000 mcg PO DAILY 10/21/19 10/21/19 History [Vitamin B-12] Diclofenac Sodium [Voltaren Gel] 2 gram TOPICAL QID 10/21/19 10/21/19 History HYDROcodone/APAP 5-325MG [[place] 1 tab PO TID PRN 10/21/19 10/21/19 History 5-325] Linagliptin [Tradjenta] 5 mg PO DAILY 10/21/19 10/21/19 History Pravastatin Sodium [Pravachol] 40 mg PO DAILY 10/21/19 10/21/19 History Zolpidem [Ambien] 5 mg PO HS PRN 10/21/19 10/21/19 History glipiZIDE [Glucotrol] 5 mg PO AC-BID 10/21/19 10/21/19 History metFORMIN HCL [metFORMIN HCL ER 500 mg PO BID 10/21/19 10/21/19 History Osmotic] Allergies Allergy/AdvReac Type Severity Reaction Status Date / Time amoxicillin [Amoxicillin] Allergy Nausea & Verified 10/21/19 20:36 Vomiting & Diarrhea morphine Allergy Unknown Verified 10/21/19 20:36 Physical Exam Vitals: Vital Signs Temp Pulse Pulse Resp BP Pulse Ox 10/22/19 09:00 107 H 32 H 104/77 97 10/22/19 08:00 96.3 F L 115 H 34 H 107/72 97 10/22/19 07:00 116 H 17 94/66 94 L 10/22/19 06:00 115 H 47 H 96/65 98 10/22/19 05:00 117 H 11 L 94/61 97 10/22/19 04:00 100 F H 120 H 11 L 98/70 72 L 10/22/19 03:00 117 H 24 92/80 95 10/22/19 02:50 118 H 33 H 92/80 95 10/22/19 02:40 116 H 46 H 92/80 96 10/22/19 02:30 117 H 43 H 90/71 93 L 10/22/19 02:20 116 H 17 90/71 88 L 10/22/19 02:10 115 H 9 L 90/71 91 L 10/22/19 02:00 113 H 45 H 90/60 84 L 10/22/19 01:50 116 H 44 H 90/60 78 L 10/22/19 01:40 116 H 15 90/60 10/22/19 01:30 115 H 40 H 106/74 10/22/19 01:20 114 H 26 H 106/74 10/22/19 01:10 115 H 27 H 106/74 100 10/22/19 01:00 114 H 45 H 88/67 10/22/19 00:50 117 H 44 H 88/67 10/22/19 00:40 114 H 10 L 88/67 82 L 10/22/19 00:30 115 H 29 H 106/69 10/22/19 00:20 115 H 22 106/69 99 10/22/19 00:10 114 H 29 H 106/69 70 L 10/22/19 00:04 113 H 30 H 106/69 95 10/22/19 00:00 114 H 31 H 92/57 10/21/19 23:50 114 H 8 L 92/57 94 L 10/21/19 23:40 114 H 36 H 92/57 98 10/21/19 23:30 116 H 13 92/76 81 L 10/21/19 23:20 116 H 17 92/76 10/21/19 23:10 113 H 36 H 92/76 97 10/21/19 23:00 110 H 42 H 89/65 96 10/21/19 22:50 98.4 F 112 H 31 H 89/65 96 20 22:40 113 H 9 L 89/65 97 10/21/19 22:30 111 H 24 91/65 96 10/21/19 22:20 110 H 42 H 91/65 96 10/21/19 22:10 112 H 47 H 91/65 94 L 10/21/19 22:00 109 H 33 H 96/70 97 10/21/19 21:50 105 H 32 H 96/70 96 10/21/19 21:40 121 H 46 H 96/70 91 L 10/21/19 21:30 105 H 35 H 106/71 98 10/21/19 21:20 95.6 F L 105 H 43 H 106/71 97 10/21/19 21:10 107 H 30 H 106/71 98 10/21/19 21:00 103 H 20 105/64 10/21/19 20:50 105 H 13 105/64 10/21/19 20:40 101 H 37 H 105/64 97 10/21/19 20:30 101 H 17 90/53 99 10/21/19 20:20 100 46 H 90/53 98 10/21/19 20:10 100 42 H 90/53 76 L 10/21/19 20:07 95 10/21/19 20:00 96 110 H 41 H 119/78 10/21/19 19:50 98 28 H 119/78 92 L 10/21/19 19:40 96 32 H 119/78 97 10/21/19 19:30 95 30 H 119/78 88 L 10/21/19 19:20 96 36 H 119/78 98 10/21/19 19:10 96 23 111/73 97 10/21/19 18:15 94.9 F L 80 27 H 133/94 94 L 10/21/19 17:38 95 28 H 123/71 94 L 10/21/19 15:58 100 27 H 110/69 96 10/21/19 15:17 98 27 H 115/63 93 L 10/21/19 14:43 101 H 28 H 114/72 96 05/12/20 13:43 97.5 F L 102 H 26 H 85/49 89 L Intake and Output 10/21/19 10/22/19 10/22/19 22:59 06:59 14:59 Intake Total 706.92 6734.151 4654 Output Total 755 848 60 Balance -48.08 829.004 8512 Intake: IV 600 1200 450 0.45% NaCl with KCl 20 300 1200 450 Meq/l 1,000 ml @ 150 mls/ hr IV .[id number] [facility] Rx#: [id number] Levofloxacin 750Mg-D5w 100 Pmx 750 mg In Dextrose/ Water 1 150ml.bag @ 100 mls/hr IVPB ONCE STA Rx#: [id number] Sodium Chloride 0.9% 1, 200 000 ml @ 200 mls/hr IV . Q5H [facility] Rx#:[id number] Intake, IV Titration 106.92 239.064 8850 Amount Fluconazole in NaCl,Iso- 50 Osm 100 mg In Saline 1 50ml.bag @ 50 mls/hr IVPB Q24H [facility] Rx#:[id number] Insulin Regular 100 unit 6.92 81.701 In Sodium Chloride 0.9% 100 ml @ 0.1 UNITS/KG/HR 6.929 mls/hr IV .[id number] [facility] Rx#:[id number] Potassium Chloride 10 meq 300 In Water For Injection 1 100ml.bag @ 100 mls/hr IVPB Q1HR [facility] Rx#: [id number] Potassium Phosphate 10 200 200 mmol In Sodium Chloride 0 .9% 250 ml @ 125 mls/hr IV Q2H [facility] Rx#:[id number] Sodium Chloride 0.9% 2, 2000 000 ml @ 999 mls/hr IV . Q2H1M [facility] Rx#:[id number] cefTRIAXone 1 gm In 50 Sodium Chloride 0.9% 50 ml @ 100 mls/hr IVPB Q24H [facility] Rx#:[id number] Output: Urine 755 848 60 Other: Voiding Method Indwelling Catheter Indwelling Catheter Indwelling Catheter Weight 67.5 kg 67.5 kg Results - Lab Results Most recent lab results ABG pH 7.13 (7.35-7.45) L* 10/21/19 19:23 ABG pCO2 26 mmHg (35-45) L 10/21/19 19:23 ABG pO2 138 mmHg (83-108) H 10/21/19 19:23 ABG HCO3 8 mmol/L (21-25) L* 10/21/19 19:23 ABG O2 Saturation 98.8 % (94-97) H 10/21/19 19:23 Calcium 7.9 mg/dL (8.4-10.2) L 10/22/19 09:59 Phosphorus 2.0 mg/dL (2.5-4.5) L 10/22/19 02:19 Magnesium 2.0 mg/dL (1.6-2.3) 10/22/19 02:19 10/22/19 06:06 10/22/19 09:59 Assessment and Plan Plan: Assessment: 1. Acute kidney injury secondary to ATN secondary to severe intravascular volume depletion due to hyperglycemia and further worsened with the use of lisinopril and hydrocodone thiazide. Creatinine was 2.1 on admission and is 1.89 today. 2. Rule out chronic any disease. Creatinine was in the range of 1.2-1.5 in July 2018. No proteinuria on UA. 3. Severe metabolic acidosis secondary to DKA. 4. DKA maintained on insulin drip. 5. Hypertonic hyponatremia. Improving with improved blood sugars. In fact patient's corrected sodium was actually 154. 6. Possible pneumonia maintained on antibiotics. Plan: Maintain D5 half-normal saline with potassium supplementation running at 1 50 mL an hour. Monitor electrolytes closely. Avoid nephrotoxins. Continue to hold lisinopril and diuretics at this time. Continue to monitor renal function and urine output. Thank you for the consultation. I will continue to follow the patient with you during his hospital stay.
[2019-10-22 11:11] LABS: Glucose,Whole Blood 226 mg/dL (75-99)
[2019-10-22] MEDS ORDERED: D5-0.45% NACL WITH KCL 20MEQ/L 1,000 ML IV SCH (12:00)
--- NOTE | 2019-10-22 12:00 | ECHOF ---
Referral Reason:Trop elevation MEASUREMENTS -------- HEIGHT: 182.9 cm WEIGHT: 67.1 kg BP: 96/65 IVSd: 0.9 cm (0.6 - 1.1) LVIDd: 3.8 cm (3.9 - 5.3) LVPWd: 1.1 cm (0.6 - 1.1) IVSs: 1.2 cm LVIDs: 1.9 cm LVPWs: 1.0 cm LAESV Index (A-L): 13.97 ml/m Ao Diam: 3.4 cm (2.0 - 3.7) FINDINGS -------- Sinus rhythm. This was a technically difficult study with suboptimal views. Pt. Non Compliant test stopped at api cals. Left ventricular wall thickness is normal. Overall left ventricular systolic function is moderate-s everely impaired with, an EF between 30 - 35 %. Anteroapical septal hypokinesia. The RV was not well visualized. Normal LA size by volume 22+/-6 ml/m2. The right atrium was not well visualized. 5.0mg of Lumason was utilized for enhancement of images The aortic valve was not well visualized. There is no evidence of aortic regurgitation. There is no evidence of aortic stenosis. The mitral valve was not well visualized. No mitral regurgitation. The tricuspid valve was not well visualized. Unable to estimate RVSP due to inadequate TR jet spect ral doppler profile. The pulmonic valve was not well visualized. The aortic root size is normal. IVC Not well visulized. There is no pericardial effusion. CONCLUSIONS -------- 1. Sinus rhythm. 2. This was a technically difficult study with suboptimal views. 3. Pt. Non Compliant test stopped at apicals. 4. Left ventricular wall thickness is normal. 5. The RV was not well visualized. 6. Normal LA size by volume 22+/-6 ml/m2. 7. The right atrium was not well visualized. 8. 5.0mg of Lumason was utilized for enhancement of images 9. The aortic valve was not well visualized. 10. There is no evidence of aortic regurgitation. 11. There is no evidence of aortic stenosis. 12. The mitral valve was not well visualized. 13. No mitral regurgitation. 14. The tricuspid valve was not well visualized. 15. Unable to estimate RVSP due to inadequate TR jet spectral doppler profile. 16. The pulmonic valve was not well visualized. 17. The aortic root size is normal. 18. IVC Not well visulized. 19. There is no pericardial effusion. REHAB SPECIALIST: Jessica Serna RDCS
[2019-10-22 12:02] LABS: Glucose,Whole Blood 375 mg/dL (75-99)
[2019-10-22 12:04] LABS: Creatine Kinase MB 7.3 ng/mL (0.0-2.4)
[2019-10-22 12:06] LABS: Troponin I 2.25 ng/mL (0.000-0.034)
--- NOTE | 2019-10-22 12:35 | P.PN ---
Subjective Progress Note Date: 10/22/19 Principal diagnosis: Diabetic ketoacidosis, metabolic encephalopathy, non-ST elevation MA Patient was seen and examined. No acute events overnight. Sitter is at bedside. Patient is more awake today and more alert but is very confused. He is able to say his name but seems to be confused when answering other questions. Patient reports chronic lower back and hip pain. He continues to be on insulin drip along with D5 half-normal saline at 150 mL per hour. T-max 100 Fahrenheit at 4:00AM today. Objective - Vital Signs Vital signs: Vital Signs Temp 98.8 F 10/22/19 12:00 Pulse 115 H 10/22/19 12:00 Resp 32 H 10/22/19 12:00 BP 94/66 10/22/19 12:00 Pulse Ox 98 10/22/19 12:00 Intake & Output 10/21/19 10/22/19 10/22/19 18:59 06:59 18:59 Intake Total 2488.621 3130.917 Output Total 1603 140 Balance 039.221 5585.917 Weight 67.5 kg 67.5 kg Intake: IV 1800 600 0.45% NaCl with KCl 20 1500 600 Meq/l 1,000 ml @ 150 mls/ hr IV .Q6H40M [facility] Rx#: [id number] Levofloxacin 750Mg-D5w 100 Pmx 750 mg In Dextrose/ Water 1 150ml.bag @ 100 mls/hr IVPB ONCE STA Rx#: [id number] Sodium Chloride 0.9% 1, 200 000 ml @ 200 mls/hr IV . Q5H [facility] Rx#:[id number] Intake, IV Titration 725.469 4077.917 Amount D5-0.45% NaCl with KCl 300 20Meq/l 1,000 ml @ 150 mls/hr IV .Q6H40M [facility] Rx# :[id number] Fluconazole in NaCl,Iso- 50 Osm 100 mg In Saline 1 50ml.bag @ 50 mls/hr IVPB Q24H [facility] Rx#:[id number] Insulin Regular 100 unit 88.621 30.917 In Sodium Chloride 0.9% 100 ml @ 0.1 UNITS/KG/HR 6.929 mls/hr IV .[id number] [facility] Rx#:[id number] Potassium Chloride 10 meq 300 In Water For Injection 1 100ml.bag @ 100 mls/hr IVPB Q1HR [facility] Rx#: [id number] Potassium Phosphate 10 200 200 mmol In Sodium Chloride 0 .9% 250 ml @ 125 mls/hr IV Q2H [facility] Rx#:[id number] Sodium Chloride 0.9% 2, 2000 000 ml @ 999 mls/hr IV . Q2H1M [facility] Rx#:[id number] cefTRIAXone 1 gm In 50 Sodium Chloride 0.9% 50 ml @ 100 mls/hr IVPB Q24H [facility] Rx#:[id number] Output: Urine 1603 140 Other: Voiding Method Indwelling Catheter Indwelling Catheter - Exam General: [non toxic], [no distress bear hugger in place], [appears at stated age] Derm: [warm], [dry], [mottled skin] Head: [atraumatic], [normocephalic], [symmetric] Eyes: [EOMI], [no lid lag], [anicteric sclera] Mouth: [no lip lesion], [mucus membranes moist] Cardiovascular: [S1S2 reg], [tachycardia], [positive DP pulse bilateral], Lungs: [Decreased breath sounds bilateral], [no rhonchi, no rales] , [no accessory muscle use] Abdominal: [soft], [grimace with palapation of the abdomen], [no guarding], [no appreciable organomegaly] Ext: [no gross muscle atrophy], [no edema], [no contractures] Neuro: [Unable to determine] Psych: [Alert and oriented x 1] - Labs CBC & Chem 7: 10/22/19 06:06 10/22/19 09:59 Labs: Abnormal Lab Results - Last 24 Hours (Table) 10/21/19 10/21/19 10/21/19 Range/Units 14:00 14:00 14:00 WBC 11.0 H (3.8-10.6) k/uL RBC 4.23 L (4.30-5.90) m/uL MCV 124.1 H (80.0-100.0) fL MCHC 26.2 L (31.0-37.0) g/dL Neutrophils # 10.0 H (1.3-7.7) k/uL Lymphocytes # 0.4 L (1.0-4.8) k/uL Macrocytosis Marked A ABG pH (7.35-7.45) ABG pCO2 (35-45) mmHg ABG pO2 (83-108) mmHg ABG HCO3 (21-25) mmol/L ABG Total CO2 (19-24) mmol/L ABG O2 Saturation (94-97) % VBG pH (7.31-7.41) VBG pCO2 (37-51) mmHg VBG HCO3 (24-28) mmol/L Sodium 116 L* (137-145) mmol/L Potassium 5.7 H (3.5-5.1) mmol/L Chloride 74 L* (98-107) mmol/L Carbon Dioxide 8 L* (22-30) mmol/L BUN 33 H (9-20) mg/dL Creatinine 2.18 H (0.66-1.25) mg/dL Glucose >1875 H* (74-99) mg/dL POC Glucose (mg/dL) (75-99) mg/dL Plasma Lactic Acid Fredrick (0.7-2.0) mmol/L Calcium (8.4-10.2) mg/dL Phosphorus (2.5-4.5) mg/dL AST (17-59) U/L ALT (4-49) U/L Alkaline Phosphatase (38-126) U/L Total Creatine Kinase (55-170) U/L CK-MB (CK-2) (0.0-2.4) ng/mL Troponin I 0.881 H* (0.000-0.034) ng/mL Albumin (3.5-5.0) g/dL Triglycerides (<150) mg/dL HDL Cholesterol (40-60) mg/dL Urine Glucose (UA) (Negative) Urine Blood (Negative) Urine Bacteria (None) /hpf Urine Mucus (None) /hpf 10/21/19 10/21/19 10/21/19 Range/Units 14:00 14:02 14:34 WBC (3.8-10.6) k/uL RBC (4.30-5.90) m/uL MCV (80.0-100.0) fL MCHC (31.0-37.0) g/dL Neutrophils # (1.3-7.7) k/uL Lymphocytes # (1.0-4.8) k/uL Macrocytosis ABG pH (7.35-7.45) ABG pCO2 (35-45) mmHg ABG pO2 (83-108) mmHg ABG HCO3 (21-25) mmol/L ABG Total CO2 (19-24) mmol/L ABG O2 Saturation (94-97) % VBG pH (7.31-7.41) VBG pCO2 (37-51) mmHg VBG HCO3 (24-28) mmol/L Sodium (137-145) mmol/L Potassium (3.5-5.1) mmol/L Chloride (98-107) mmol/L Carbon Dioxide (22-30) mmol/L BUN (9-20) mg/dL Creatinine (0.66-1.25) mg/dL Glucose (74-99) mg/dL POC Glucose (mg/dL) >600 H (75-99) mg/dL Plasma Lactic Acid Fredrick (0.7-2.0) mmol/L Calcium (8.4-10.2) mg/dL Phosphorus 8.8 H (2.5-4.5) mg/dL AST (17-59) U/L ALT (4-49) U/L Alkaline Phosphatase (38-126) U/L Total Creatine Kinase (55-170) U/L CK-MB (CK-2) (0.0-2.4) ng/mL Troponin I (0.000-0.034) ng/mL Albumin (3.5-5.0) g/dL Triglycerides (<150) mg/dL HDL Cholesterol (40-60) mg/dL Urine Glucose (UA) 4+ H (Negative) Urine Blood Trace H (Negative) Urine Bacteria Rare H (None) /hpf Urine Mucus Rare H (None) /hpf 10/21/19 10/21/19 10/21/19 Range/Units 14:34 15:06 15:25 WBC (3.8-10.6) k/uL RBC (4.30-5.90) m/uL MCV (80.0-100.0) fL MCHC (31.0-37.0) g/dL Neutrophils # (1.3-7.7) k/uL Lymphocytes # (1.0-4.8) k/uL Macrocytosis ABG pH 7.00 L* (7.35-7.45) ABG pCO2 19 L* (35-45) mmHg ABG pO2 125 H (83-108) mmHg ABG HCO3 5 L* (21-25) mmol/L ABG Total CO2 5 L (19-24) mmol/L ABG O2 Saturation (94-97) % VBG pH 7.03 L* (7.31-7.41) VBG pCO2 31 L (37-51) mmHg VBG HCO3 8 L* (24-28) mmol/L Sodium (137-145) mmol/L Potassium (3.5-5.1) mmol/L Chloride (98-107) mmol/L Carbon Dioxide (22-30) mmol/L BUN (9-20) mg/dL Creatinine (0.66-1.25) mg/dL Glucose (74-99) mg/dL POC Glucose (mg/dL) >600 H (75-99) mg/dL Plasma Lactic Acid Fredrick (0.7-2.0) mmol/L Calcium (8.4-10.2) mg/dL Phosphorus (2.5-4.5) mg/dL AST (17-59) U/L ALT (4-49) U/L Alkaline Phosphatase (38-126) U/L Total Creatine Kinase (55-170) U/L CK-MB (CK-2) (0.0-2.4) ng/mL Troponin I (0.000-0.034) ng/mL Albumin (3.5-5.0) g/dL Triglycerides (<150) mg/dL HDL Cholesterol (40-60) mg/dL Urine Glucose (UA) (Negative) Urine Blood (Negative) Urine Bacteria (None) /hpf Urine Mucus (None) /hpf 10/21/19 10/21/19 10/21/19 Range/Units 16:02 16:48 18:06 WBC (3.8-10.6) k/uL RBC (4.30-5.90) m/uL MCV (80.0-100.0) fL MCHC (31.0-37.0) g/dL Neutrophils # (1.3-7.7) k/uL Lymphocytes # (1.0-4.8) k/uL Macrocytosis ABG pH (7.35-7.45) ABG pCO2 (35-45) mmHg ABG pO2 (83-108) mmHg ABG HCO3 (21-25) mmol/L ABG Total CO2 (19-24) mmol/L ABG O2 Saturation (94-97) % VBG pH (7.31-7.41) VBG pCO2 (37-51) mmHg VBG HCO3 (24-28) mmol/L Sodium 129 L (137-145) mmol/L Potassium (3.5-5.1) mmol/L Chloride 96 L (98-107) mmol/L Carbon Dioxide 6 L* (22-30) mmol/L BUN 30 H (9-20) mg/dL Creatinine 1.91 H (0.66-1.25) mg/dL Glucose 1509 H* (74-99) mg/dL POC Glucose (mg/dL) >600 H >600 H (75-99) mg/dL Plasma Lactic Acid Fredrick (0.7-2.0) mmol/L Calcium 7.9 L (8.4-10.2) mg/dL Phosphorus (2.5-4.5) mg/dL AST (17-59) U/L ALT (4-49) U/L Alkaline Phosphatase (38-126) U/L Total Creatine Kinase (55-170) U/L CK-MB (CK-2) (0.0-2.4) ng/mL Troponin I (0.000-0.034) ng/mL Albumin (3.5-5.0) g/dL Triglycerides (<150) mg/dL HDL Cholesterol (40-60) mg/dL Urine Glucose (UA) (Negative) Urine Blood (Negative) Urine Bacteria (None) /hpf Urine Mucus (None) /hpf 10/21/19 10/21/19 10/21/19 Range/Units 18:20 18:30 19:23 WBC (3.8-10.6) k/uL RBC (4.30-5.90) m/uL MCV (80.0-100.0) fL MCHC (31.0-37.0) g/dL Neutrophils # (1.3-7.7) k/uL Lymphocytes # (1.0-4.8) k/uL Macrocytosis ABG pH 7.13 L* (7.35-7.45) ABG pCO2 26 L (35-45) mmHg ABG pO2 138 H (83-108) mmHg ABG HCO3 8 L* (21-25) mmol/L ABG Total CO2 9 L (19-24) mmol/L ABG O2 Saturation 98.8 H (94-97) % VBG pH (7.31-7.41) VBG pCO2 (37-51) mmHg VBG HCO3 (24-28) mmol/L Sodium 131 L (137-145) mmol/L Potassium (3.5-5.1) mmol/L Chloride 95 L (98-107) mmol/L Carbon Dioxide 8 L* (22-30) mmol/L BUN 30 H (9-20) mg/dL Creatinine 2.10 H (0.66-1.25) mg/dL Glucose 1422 H* (74-99) mg/dL POC Glucose (mg/dL) (75-99) mg/dL Plasma Lactic Acid Fredrick 11.7 H* (0.7-2.0) mmol/L Calcium (8.4-10.2) mg/dL Phosphorus (2.5-4.5) mg/dL AST (17-59) U/L ALT (4-49) U/L Alkaline Phosphatase (38-126) U/L Total Creatine Kinase (55-170) U/L CK-MB (CK-2) (0.0-2.4) ng/mL Troponin I (0.000-0.034) ng/mL Albumin (3.5-5.0) g/dL Triglycerides (<150) mg/dL HDL Cholesterol (40-60) mg/dL Urine Glucose (UA) (Negative) Urine Blood (Negative) Urine Bacteria (None) /hpf Urine Mucus (None) /hpf 10/21/19 10/21/19 10/21/19 Range/Units 19:51 20:28 20:28 WBC (3.8-10.6) k/uL RBC (4.30-5.90) m/uL MCV (80.0-100.0) fL MCHC (31.0-37.0) g/dL Neutrophils # (1.3-7.7) k/uL Lymphocytes # (1.0-4.8) k/uL Macrocytosis ABG pH (7.35-7.45) ABG pCO2 (35-45) mmHg ABG pO2 (83-108) mmHg ABG HCO3 (21-25) mmol/L ABG Total CO2 (19-24) mmol/L ABG O2 Saturation (94-97) % VBG pH (7.31-7.41) VBG pCO2 (37-51) mmHg VBG HCO3 (24-28) mmol/L Sodium (137-145) mmol/L Potassium (3.5-5.1) mmol/L Chloride (98-107) mmol/L Carbon Dioxide (22-30) mmol/L BUN (9-20) mg/dL Creatinine (0.66-1.25) mg/dL Glucose 1230 H* (74-99) mg/dL POC Glucose (mg/dL) >600 H (75-99) mg/dL Plasma Lactic Acid Fredrick (0.7-2.0) mmol/L Calcium (8.4-10.2) mg/dL Phosphorus (2.5-4.5) mg/dL AST (17-59) U/L ALT (4-49) U/L Alkaline Phosphatase (38-126) U/L Total Creatine Kinase (55-170) U/L CK-MB (CK-2) (0.0-2.4) ng/mL Troponin I 1.600 H* (0.000-0.034) ng/mL Albumin (3.5-5.0) g/dL Triglycerides (<150) mg/dL HDL Cholesterol (40-60) mg/dL Urine Glucose (UA) (Negative) Urine Blood (Negative) Urine Bacteria (None) /hpf Urine Mucus (None) /hpf 10/21/19 10/21/19 10/21/19 Range/Units 20:56 22:04 22:20 WBC (3.8-10.6) k/uL RBC (4.30-5.90) m/uL MCV (80.0-100.0) fL MCHC (31.0-37.0) g/dL Neutrophils # (1.3-7.7) k/uL Lymphocytes # (1.0-4.8) k/uL Macrocytosis ABG pH (7.35-7.45) ABG pCO2 (35-45) mmHg ABG pO2 (83-108) mmHg ABG HCO3 (21-25) mmol/L ABG Total CO2 (19-24) mmol/L ABG O2 Saturation (94-97) % VBG pH (7.31-7.41) VBG pCO2 (37-51) mmHg VBG HCO3 (24-28) mmol/L Sodium (137-145) mmol/L Potassium 3.4 L (3.5-5.1) mmol/L Chloride (98-107) mmol/L Carbon Dioxide 17 L (22-30) mmol/L BUN 31 H (9-20) mg/dL Creatinine 1.78 H (0.66-1.25) mg/dL Glucose 967 H* (74-99) mg/dL POC Glucose (mg/dL) >600 H >600 H (75-99) mg/dL Plasma Lactic Acid Fredrick (0.7-2.0) mmol/L Calcium (8.4-10.2) mg/dL Phosphorus (2.5-4.5) mg/dL AST (17-59) U/L ALT (4-49) U/L Alkaline Phosphatase (38-126) U/L Total Creatine Kinase (55-170) U/L CK-MB (CK-2) (0.0-2.4) ng/mL Troponin I (0.000-0.034) ng/mL Albumin (3.5-5.0) g/dL Triglycerides (<150) mg/dL HDL Cholesterol (40-60) mg/dL Urine Glucose (UA) (Negative) Urine Blood (Negative) Urine Bacteria (None) /hpf Urine Mucus (None) /hpf 10/21/19 10/21/19 10/22/19 Range/Units 22:20 23:13 00:31 WBC (3.8-10.6) k/uL RBC (4.30-5.90) m/uL MCV (80.0-100.0) fL MCHC (31.0-37.0) g/dL Neutrophils # (1.3-7.7) k/uL Lymphocytes # (1.0-4.8) k/uL Macrocytosis ABG pH (7.35-7.45) ABG pCO2 (35-45) mmHg ABG pO2 (83-108) mmHg ABG HCO3 (21-25) mmol/L ABG Total CO2 (19-24) mmol/L ABG O2 Saturation (94-97) % VBG pH (7.31-7.41) VBG pCO2 (37-51) mmHg VBG HCO3 (24-28) mmol/L Sodium (137-145) mmol/L Potassium (3.5-5.1) mmol/L Chloride (98-107) mmol/L Carbon Dioxide (22-30) mmol/L BUN (9-20) mg/dL Creatinine (0.66-1.25) mg/dL Glucose (74-99) mg/dL POC Glucose (mg/dL) >600 H >600 H (75-99) mg/dL Plasma Lactic Acid Fredrick 8.8 H* (0.7-2.0) mmol/L Calcium (8.4-10.2) mg/dL Phosphorus (2.5-4.5) mg/dL AST (17-59) U/L ALT (4-49) U/L Alkaline Phosphatase (38-126) U/L Total Creatine Kinase (55-170) U/L CK-MB (CK-2) (0.0-2.4) ng/mL Troponin I (0.000-0.034) ng/mL Albumin (3.5-5.0) g/dL Triglycerides (<150) mg/dL HDL Cholesterol (40-60) mg/dL Urine Glucose (UA) (Negative) Urine Blood (Negative) Urine Bacteria (None) /hpf Urine Mucus (None) /hpf 10/22/19 10/22/19 10/22/19 Range/Units 01:49 02:19 02:19 WBC (3.8-10.6) k/uL RBC (4.30-5.90) m/uL MCV (80.0-100.0) fL MCHC (31.0-37.0) g/dL Neutrophils # (1.3-7.7) k/uL Lymphocytes # (1.0-4.8) k/uL Macrocytosis ABG pH (7.35-7.45) ABG pCO2 (35-45) mmHg ABG pO2 (83-108) mmHg ABG HCO3 (21-25) mmol/L ABG Total CO2 (19-24) mmol/L ABG O2 Saturation (94-97) % VBG pH (7.31-7.41) VBG pCO2 (37-51) mmHg VBG HCO3 (24-28) mmol/L Sodium (137-145) mmol/L Potassium (3.5-5.1) mmol/L Chloride (98-107) mmol/L Carbon Dioxide 20 L (22-30) mmol/L BUN 31 H (9-20) mg/dL Creatinine 1.75 H (0.66-1.25) mg/dL Glucose 600 H* (74-99) mg/dL POC Glucose (mg/dL) >600 H (75-99) mg/dL Plasma Lactic Acid Fredrick 6.7 H* (0.7-2.0) mmol/L Calcium (8.4-10.2) mg/dL Phosphorus 2.0 L (2.5-4.5) mg/dL AST (17-59) U/L ALT (4-49) U/L Alkaline Phosphatase (38-126) U/L Total Creatine Kinase (55-170) U/L CK-MB (CK-2) (0.0-2.4) ng/mL Troponin I (0.000-0.034) ng/mL Albumin (3.5-5.0) g/dL Triglycerides (<150) mg/dL HDL Cholesterol (40-60) mg/dL Urine Glucose (UA) (Negative) Urine Blood (Negative) Urine Bacteria (None) /hpf Urine Mucus (None) /hpf 10/22/19 10/22/19 10/22/19 Range/Units 03:58 04:58 06:02 WBC (3.8-10.6) k/uL RBC (4.30-5.90) m/uL MCV (80.0-100.0) fL MCHC (31.0-37.0) g/dL Neutrophils # (1.3-7.7) k/uL Lymphocytes # (1.0-4.8) k/uL Macrocytosis ABG pH (7.35-7.45) ABG pCO2 (35-45) mmHg ABG pO2 (83-108) mmHg ABG HCO3 (21-25) mmol/L ABG Total CO2 (19-24) mmol/L ABG O2 Saturation (94-97) % VBG pH (7.31-7.41) VBG pCO2 (37-51) mmHg VBG HCO3 (24-28) mmol/L Sodium (137-145) mmol/L Potassium (3.5-5.1) mmol/L Chloride (98-107) mmol/L Carbon Dioxide (22-30) mmol/L BUN (9-20) mg/dL Creatinine (0.66-1.25) mg/dL Glucose (74-99) mg/dL POC Glucose (mg/dL) 510 H 512 H 404 H (75-99) mg/dL Plasma Lactic Acid Fredrick (0.7-2.0) mmol/L Calcium (8.4-10.2) mg/dL Phosphorus (2.5-4.5) mg/dL AST (17-59) U/L ALT (4-49) U/L Alkaline Phosphatase (38-126) U/L Total Creatine Kinase (55-170) U/L CK-MB (CK-2) (0.0-2.4) ng/mL Troponin I (0.000-0.034) ng/mL Albumin (3.5-5.0) g/dL Triglycerides (<150) mg/dL HDL Cholesterol (40-60) mg/dL Urine Glucose (UA) (Negative) Urine Blood (Negative) Urine Bacteria (None) /hpf Urine Mucus (None) /hpf 10/22/19 10/22/19 10/22/19 Range/Units 06:06 06:06 06:06 WBC 15.4 H (3.8-10.6) k/uL RBC (4.30-5.90) m/uL MCV (80.0-100.0) fL MCHC (31.0-37.0) g/dL Neutrophils # 14.1 H (1.3-7.7) k/uL Lymphocytes # 0.7 L (1.0-4.8) k/uL Macrocytosis ABG pH (7.35-7.45) ABG pCO2 (35-45) mmHg ABG pO2 (83-108) mmHg ABG HCO3 (21-25) mmol/L ABG Total CO2 (19-24) mmol/L ABG O2 Saturation (94-97) % VBG pH (7.31-7.41) VBG pCO2 (37-51) mmHg VBG HCO3 (24-28) mmol/L Sodium (137-145) mmol/L Potassium (3.5-5.1) mmol/L Chloride 109 H (98-107) mmol/L Carbon Dioxide 19 L (22-30) mmol/L BUN 32 H (9-20) mg/dL Creatinine 1.99 H (0.66-1.25) mg/dL Glucose 390 H (74-99) mg/dL POC Glucose (mg/dL) (75-99) mg/dL Plasma Lactic Acid Fredrick 5.6 H* (0.7-2.0) mmol/L Calcium (8.4-10.2) mg/dL Phosphorus (2.5-4.5) mg/dL AST 143 H (17-59) U/L ALT 76 H (4-49) U/L Alkaline Phosphatase 129 H (38-126) U/L Total Creatine Kinase (55-170) U/L CK-MB (CK-2) (0.0-2.4) ng/mL Troponin I (0.000-0.034) ng/mL Albumin 3.4 L (3.5-5.0) g/dL Triglycerides 512 H (<150) mg/dL HDL Cholesterol 33 L (40-60) mg/dL Urine Glucose (UA) (Negative) Urine Blood (Negative) Urine Bacteria (None) /hpf Urine Mucus (None) /hpf 10/22/19 10/22/19 10/22/19 Range/Units 06:51 08:07 09:12 WBC (3.8-10.6) k/uL RBC (4.30-5.90) m/uL MCV (80.0-100.0) fL MCHC (31.0-37.0) g/dL Neutrophils # (1.3-7.7) k/uL Lymphocytes # (1.0-4.8) k/uL Macrocytosis ABG pH (7.35-7.45) ABG pCO2 (35-45) mmHg ABG pO2 (83-108) mmHg ABG HCO3 (21-25) mmol/L ABG Total CO2 (19-24) mmol/L ABG O2 Saturation (94-97) % VBG pH (7.31-7.41) VBG pCO2 (37-51) mmHg VBG HCO3 (24-28) mmol/L Sodium (137-145) mmol/L Potassium (3.5-5.1) mmol/L Chloride (98-107) mmol/L Carbon Dioxide (22-30) mmol/L BUN (9-20) mg/dL Creatinine (0.66-1.25) mg/dL Glucose (74-99) mg/dL POC Glucose (mg/dL) 407 H 401 H 331 H (75-99) mg/dL Plasma Lactic Acid Fredrick (0.7-2.0) mmol/L Calcium (8.4-10.2) mg/dL Phosphorus (2.5-4.5) mg/dL AST (17-59) U/L ALT (4-49) U/L Alkaline Phosphatase (38-126) U/L Total Creatine Kinase (55-170) U/L CK-MB (CK-2) (0.0-2.4) ng/mL Troponin I (0.000-0.034) ng/mL Albumin (3.5-5.0) g/dL Triglycerides (<150) mg/dL HDL Cholesterol (40-60) mg/dL Urine Glucose (UA) (Negative) Urine Blood (Negative) Urine Bacteria (None) /hpf Urine Mucus (None) /hpf 10/22/19 10/22/19 10/22/19 Range/Units 09:59 09:59 09:59 WBC (3.8-10.6) k/uL RBC (4.30-5.90) m/uL MCV (80.0-100.0) fL MCHC (31.0-37.0) g/dL Neutrophils # (1.3-7.7) k/uL Lymphocytes # (1.0-4.8) k/uL Macrocytosis ABG pH (7.35-7.45) ABG pCO2 (35-45) mmHg ABG pO2 (83-108) mmHg ABG HCO3 (21-25) mmol/L ABG Total CO2 (19-24) mmol/L ABG O2 Saturation (94-97) % VBG pH (7.31-7.41) VBG pCO2 (37-51) mmHg VBG HCO3 (24-28) mmol/L Sodium (137-145) mmol/L Potassium (3.5-5.1) mmol/L Chloride 117 H (98-107) mmol/L Carbon Dioxide 18 L (22-30) mmol/L BUN 32 H (9-20) mg/dL Creatinine 1.89 H (0.66-1.25) mg/dL Glucose 230 H (74-99) mg/dL POC Glucose (mg/dL) (75-99) mg/dL Plasma Lactic Acid Fredrick 6.0 H* (0.7-2.0) mmol/L Calcium 7.9 L (8.4-10.2) mg/dL Phosphorus (2.5-4.5) mg/dL AST (17-59) U/L ALT (4-49) U/L Alkaline Phosphatase (38-126) U/L Total Creatine Kinase 191 H (55-170) U/L CK-MB (CK-2) 7.3 H (0.0-2.4) ng/mL Troponin I 2.250 H* (0.000-0.034) ng/mL Albumin (3.5-5.0) g/dL Triglycerides (<150) mg/dL HDL Cholesterol (40-60) mg/dL Urine Glucose (UA) (Negative) Urine Blood (Negative) Urine Bacteria (None) /hpf Urine Mucus (None) /hpf 10/22/19 10/22/19 10/22/19 Range/Units 10:12 11:10 12:00 WBC (3.8-10.6) k/uL RBC (4.30-5.90) m/uL MCV (80.0-100.0) fL MCHC (31.0-37.0) g/dL Neutrophils # (1.3-7.7) k/uL Lymphocytes # (1.0-4.8) k/uL Macrocytosis ABG pH (7.35-7.45) ABG pCO2 (35-45) mmHg ABG pO2 (83-108) mmHg ABG HCO3 (21-25) mmol/L ABG Total CO2 (19-24) mmol/L ABG O2 Saturation (94-97) % VBG pH (7.31-7.41) VBG pCO2 (37-51) mmHg VBG HCO3 (24-28) mmol/L Sodium (137-145) mmol/L Potassium (3.5-5.1) mmol/L Chloride (98-107) mmol/L Carbon Dioxide (22-30) mmol/L BUN (9-20) mg/dL Creatinine (0.66-1.25) mg/dL Glucose (74-99) mg/dL POC Glucose (mg/dL) 235 H 226 H 375 H (75-99) mg/dL Plasma Lactic Acid Fredrick (0.7-2.0) mmol/L Calcium (8.4-10.2) mg/dL Phosphorus (2.5-4.5) mg/dL AST (17-59) U/L ALT (4-49) U/L Alkaline Phosphatase (38-126) U/L Total Creatine Kinase (55-170) U/L CK-MB (CK-2) (0.0-2.4) ng/mL Troponin I (0.000-0.034) ng/mL Albumin (3.5-5.0) g/dL Triglycerides (<150) mg/dL HDL Cholesterol (40-60) mg/dL Urine Glucose (UA) (Negative) Urine Blood (Negative) Urine Bacteria (None) /hpf Urine Mucus (None) /hpf Assessment and Plan Assessment: Diabetic ketoacidosis Sepsis, possible community acquired pneumonia Metabolic encephalopathy likely due to the above Non-ST elevation MA likely type II from demand ischemia Acute kidney injury and probable chronic kidney disease Leukocytosis Macrocytosis History of hypertension Resolved: Hyponatremia ABG shows pH 7, pCO2 19, bicarbonate 8. Initial blood glucose > 1875. Suspect dietary non compliance. Plans: Continue 1/2 normal saline with 20 mEq potassium chloride at 150 mL per hour (switch to D5 NS when blood glucose < 250). Regular IV insulin at 0.1 unit per kilogram per hour until bicarbonate normalizes. Repeat accucheck every hour. Repeat BMP every 4 hours. Patient needs diabetic education. Nothing by mouth. Protonix IV. Patient meets sepsis criteria. He is hypothermic. Patient is tachycardic and tachypneic. He has a leukocytosis of 11-15.4 with neutrophilia on admission. He was hypotensive in the ED responded to fluid bolus. Chest x-ray shows possible right lower lobe infiltrate. Plans: Follow blood culture. Follow lactic acid. Follow sputum culture. Tylenol as needed for fever or chills. Continue Rocephin and add azithromycin. IVF as above. Repeat chest x-ray tomorrow morning. Follow pulmonology consultation. CT brain shows degenerative and nonspecific white matter changes, left MCA slightly hyperdense relative to right. Plans: Likely due to the above. Follow B12 and folic acid. Troponin 0.881, 1.6, 2.25 with EKG showing sinus tachycardia. Echocardiogram shows EF 30-35% with hypokinetic wall motion. Plans: Start aspirin. Will discuss with cardiology regarding start of heparin drip. Telemetry monitoring. Follow cardiology recommendations. Creatinine 2.18-1.91-1.89. Likely related to the above. Plans: IVF as above. Repeat BMP tomorrow. Leukocytosis of 11-15.4 with neutrophilia. Likely reactive. Possible right lower lobe infiltrate on chest x-ray. Plans: Repeat CBC tomorrow morning. Continue antibiotics as above. MCV 98.1. Plans: Follow B12 and folic acid. Plans: Hold all antihypertensive medication. [Diabetic ketoacidosis resolving. Confusion continued but improved. On IV Abx for pneumonia and sepsis. His Troponins continue to uptrend for which Cardiology is consulted. Pulmonology/hand i blocker consulted for ICU management. Prognosis is guarded.]
--- NOTE | 2019-10-22 13:18 | P.CNPUL ---
History of Present Illness Consult date: 10/21/19 Chief complaint: hyperglycemia, generalized weakness, altered mentation History of present illness: 80-year-old male patient known history of dementia, diabetes hypertension osteoarthritis in addition to abdominal aortic aneurysm, presented to the ED with altered mentation and severe dehydration. The patient's was noted to have elevated blood sugars at home which prompted this hospital visit. He was unable to provide any history at time of admission. He was confused and disoriented and his condition was progressively getting worse over this past few weeks. He apparently had generalized weakness, falls, and he was not seeking any medical attention. He has Alzheimer's dementia. His has Alzheimer's dementia also. Apparently his oral intake has been minimal and the patient was drinking only 4 L of soda on a daily basis. He has been noncompliant his diabetic medications also. A blood sugar of more than 1800. Sodium was 116. Potassium was 5.7 with a chloride of 74 and a serum bicarbonate 8 with an anion gap of 34. Creatinine was 2.4 with a BUN of 33. The serum lactate was 11.7. Troponin was 0.8. Phosphorus was 8.8. Lipase was 229. UA showed +4 glucose and the serum acetone was negative. The patient received a total of 4 L of IV fluids in the emergency department. He was started on an insulin drip. Currently the patient is on half-normal saline with 20 mEq of potassium. The patient metabolic acidosis improving. Based on the follow-up blood gases the pH was 7.0 and septal 7.13. Serum bicarb is also on the rise. The serum pCO2 is 26. Troponin 38. This was done and FiO2 of 36%. Sodium level improved and septal 131 and a potassium level is at 3.8. Anion gap is improving is down to 28. Creatinine is still at 2.1. Most recent blood sugar shows that the sugar is still elevated above 600 with a serum measurement of 1230. The chest x-ray shows some subsegmental atelectasis in the right lower lobe. CAT scan of the brain shows no evidence of any acute hemorrhage. There is some degenerative changes and nonspecific white matter changes consistent with remote ischemia. EKG showing sinus tachycardia along with Q waves over the anteroseptal leads consistent with an old infarct. Heart rate is around 102. Review of Systems ROS unobtainable: due to mental status 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 years ago, AAA-extending to the iliacs measuring 4.6 cm based on the previous computed tomography scan imaging, DJD,back pain, skin cancer, History of Any Multi-Drug Resistant Organisms: None Reported Date of last positivie culture/infection: None MDRO Source:: None Past Surgical History: Adenoidectomy, Joint Replacement, Tonsillectomy Additional Past Surgical History / Comment(s): left hip, left knee replaced, Past Anesthesia/Blood Transfusion Reactions: No Reported Reaction Past Psychological History: No Psychological Hx Reported Smoking Status: Former smoker Past Alcohol Use History: None Reported Past Drug Use History: None Reported - Past Family History Son(s) Additional Family Medical History / Comment(s): unable to obtain patient not good historian Mother Additional Family Medical History / Comment(s): unable to obtain patient not a good historian Medications and Allergies Home Medications Medication Instructions Recorded Confirmed Type DULoxetine HCL [Cymbalta] 60 mg PO DAILY 05/13/18 10/21/19 History Donepezil [Aricept] 5 mg PO HS #30 tab 05/15/18 10/21/19 Rx Cholecalciferol [Vitamin D3 (25 1,000 unit PO DAILY 07/27/18 10/21/19 History Mcg = 1000 Iu)] Lisinopril-Hctz 20-12.5 mg 1 tab PO BID 07/27/18 10/21/19 History [Zestoretic 20-12.5] Pantoprazole [Protonix] 40 mg PO DAILY #30 tablet. 07/28/18 10/21/19 Rx Cyanocobalamin (Vitamin B-12) 1,000 mcg PO DAILY 10/21/19 10/21/19 History [Vitamin B-12] Diclofenac Sodium [Voltaren Gel] 2 gram TOPICAL QID 10/21/19 10/21/19 History HYDROcodone/APAP 5-325MG [[place] 1 tab PO TID PRN 10/21/19 10/21/19 History 5-325] Linagliptin [Tradjenta] 5 mg PO DAILY 10/21/19 10/21/19 History Pravastatin Sodium [Pravachol] 40 mg PO DAILY 10/21/19 10/21/19 History Zolpidem [Ambien] 5 mg PO HS PRN 10/21/19 10/21/19 History glipiZIDE [Glucotrol] 5 mg PO AC-BID 10/21/19 10/21/19 History metFORMIN HCL [metFORMIN HCL ER 500 mg PO BID 10/21/19 10/21/19 History Osmotic] Allergies Allergy/AdvReac Type Severity Reaction Status Date / Time amoxicillin [Amoxicillin] Allergy Nausea & Verified 10/21/19 20:36 Vomiting & Diarrhea morphine Allergy Unknown Verified 10/21/19 20:36 Physical Exam Vitals: Vital Signs Temp Pulse Resp BP Pulse Ox 10/21/19 21:20 95.6 F L 105 H 43 H 106/71 97 10/21/19 21:10 107 H 30 H 106/71 98 10/21/19 21:00 103 H 20 105/64 10/21/19 20:50 105 H 13 105/64 10/21/19 20:40 101 H 37 H 105/64 97 10/21/19 20:30 101 H 17 90/53 99 10/21/19 20:20 100 46 H 90/53 98 10/21/19 20:10 100 42 H 90/53 76 L 10/21/19 20:07 95 10/21/19 20:00 96 41 H 119/78 10/21/19 19:50 98 28 H 119/78 92 L 10/21/19 19:40 96 32 H 119/78 97 10/21/19 19:30 95 30 H 119/78 88 L 10/21/19 19:20 96 36 H 119/78 98 10/21/19 19:10 96 23 111/73 97 10/21/19 18:15 94.9 F L 80 27 H 133/94 94 L 10/21/19 17:38 95 28 H 123/71 94 L 10/21/19 15:58 100 27 H 110/69 96 10/21/19 15:17 98 27 H 115/63 93 L 10/21/19 14:43 101 H 28 H 114/72 96 10/21/19 13:43 97.5 F L 102 H 26 H 85/49 89 L Intake and Output 10/21/19 10/21/19 10/21/19 06:59 14:59 22:59 Intake Total 456.92 Output Total 505 Balance -48.08 Intake: IV 450 0.45% NaCl with KCl 20 150 Meq/l 1,000 ml @ 150 mls/ hr IV .[id number] ON LICENSE OF [facility] Rx#: [id number] Levofloxacin 750Mg-D5w 100 Pmx 750 mg In Dextrose/ Water 1 150ml.bag @ 100 mls/hr IVPB ONCE [facility] Rx#: [id number] Sodium Chloride 0.9% 1, 200 000 ml @ 200 mls/hr IV . Q5H [facility] Rx#:[id number] Intake, IV Titration 6.92 Amount Insulin Regular 100 unit 6.92 In Sodium Chloride 0.9% 100 ml @ 0.1 UNITS/KG/HR 6.929 mls/hr IV .[id number] ON LICENSE OF [facility] Rx#:[id number] Output: Urine 505 Other: Weight 68.6 kg Gen. appearance the patient is lethargic, comfortable no agitation and Acute respiratory distress. Head exam was generally normal. There was no scleral icterus or corneal arcus. Mucous membranes were dry Neck was supple and without jugular venous distension, thyromegaly, or carotid bruits. Carotids were easily palpable bilaterally. There was no adenopathy. Lungs were clear to auscultation and percussion, and with normal diaphragmatic excursion. No wheezes or rales were noted. Cardiac exam revealed the PMI to be normally situated and sized. The rhythm was regular and no extrasystoles were noted during several minutes of auscultation. The first and second heart sounds were normal and physiologic splitting of the second heart sound was noted. There were no murmurs, rubs, clicks, or gallops. Abdominal exam revealed normal bowel sounds. The abdomen was soft, non-tender, and without masses, organomegaly, or appreciable enlargement of the abdominal aorta. The patient is sensitive to touch in his abdominal wall. He has bowel sounds. No organomegaly. Abdomen itself is quite soft. Extremities reveal chronic ulceration lower extremities bilaterally with diminished pulses. No cyanosis or clubbing. Neurologic the patient is confused and oriented 1 only. Cranial nerves are grossly intact. He is moving all 4 extremities. Neurologic exam is nonfocal. Results - Laboratory Findings CBC and BMP: 10/22/19 06:06 10/22/19 09:59 ABG WBC 11.0 k/uL (3.8-10.6) H 10/21/19 14:00 RBC 4.23 m/uL (4.30-5.90) L 10/21/19 14:00 Hgb 13.7 gm/dL (13.0-17.5) 10/21/19 14:00 Hct 52.5 % (39.0-53.0) 10/21/19 14:00 MCV 124.1 fL (80.0-100.0) H 10/21/19 14:00 MCH 32.5 pg (25.0-35.0) 10/21/19 14:00 MCHC 26.2 g/dL (31.0-37.0) L 10/21/19 14:00 RDW 12.9 % (11.5-15.5) 10/21/19 14:00 Plt Count 383 k/uL (150-450) 10/21/19 14:00 Neutrophils % 91 % 10/21/19 14:00 Lymphocytes % 4 % 10/21/19 14:00 Monocytes % 4 % 10/21/19 14:00 Eosinophils % 0 % 10/21/19 14:00 Basophils % 0 % 10/21/19 14:00 Neutrophils # 10.0 k/uL (1.3-7.7) H 10/21/19 14:00 Lymphocytes # 0.4 k/uL (1.0-4.8) L 10/21/19 14:00 Monocytes # 0.5 k/uL (0-1.0) 10/21/19 14:00 Eosinophils # 0.0 k/uL (0-0.7) 10/21/19 14:00 Basophils # 0.0 k/uL (0-0.2) 10/21/19 14:00 Manual Slide Review Performed 10/21/19 14:00 Hypochromasia Marked 10/21/19 14:00 Poikilocytosis (manual Present 10/21/19 14:00 Anisocytosis (manual) Present 10/21/19 14:00 Macrocytosis Marked A 10/21/19 14:00 PT 10.1 sec (9.0-12.0) 10/21/19 14:00 INR 1.0 (<1.2) 10/21/19 14:00 APTT 22.9 sec (22.0-30.0) 10/21/19 14:00 Sample Site L radial 10/21/19 19: ABG pH 7.13 (7.35-7.45) L* 10/21/19 19:23 ABG pCO2 26 mmHg (35-45) L 10/21/19 19: ABG pO2 138 mmHg (83-108) H 10/21/19 19:23 ABG HCO3 8 mmol/L (21-25) L* 10/21/19 19: ABG Total CO2 9 mmol/L (19-24) L 10/21/19 19: ABG O2 Saturation 98.8 % (94-97) H 10/21/19 19: ABG Base Excess -20.8 mmol/L 10/21/19 19: Raulito Test Yes 10/21/19 19: VBG pH 7.03 (7.31-7.41) L* 10/21/19 14:34 VBG pCO2 31 mmHg (37-51) L 10/21/19 14:34 VBG HCO3 8 mmol/L (24-28) L* 10/21/19 14:34 FiO2 36 % 10/21/19 19: Sodium 131 mmol/L (137-145) L 10/21/19 18:30 Potassium 3.8 mmol/L (3.5-5.1) 10/21/19 18:30 Chloride 95 mmol/L (98-107) L 10/21/19 18:30 Carbon Dioxide 8 mmol/L (22-30) L* 10/21/19 18:30 Anion Gap 28 mmol/L 10/21/19 18:30 BUN 30 mg/dL (9-20) H 10/21/19 18:30 Creatinine 2.10 mg/dL (0.66-1.25) H 10/21/19 18:30 Est GFR (CKD-EPI)AfAm 33 (>60 ml/min/1.73 sqM) 10/21/19 18:30 Est GFR (CKD-EPI)NonAf 29 (>60 ml/min/1.73 sqM) 10/21/19 18:30 Glucose 1230 mg/dL (74-99) H* 10/21/19 20:28 POC Glucose (mg/dL) >600 mg/dL (75-99) H 10/21/19 20:56 POC Glu [employer] Teacher ID Marshal Alatorre 10/21/19 20:56 Plasma Lactic Acid Fredrick 11.7 mmol/L (0.7-2.0) H* 10/21/19 18:20 Calcium 8.8 mg/dL (8.4-10.2) 10/21/19 18:30 Phosphorus 8.8 mg/dL (2.5-4.5) H 10/21/19 14:00 Troponin I 1.600 ng/mL (0.000-0.034) H* 10/21/19 20:28 Lipase 229 U/L (23-300) 10/21/19 19:06 Urine Color Light Yellow 10/21/19 14:34 Urine Appearance Clear (Clear) 10/21/19 14:34 Urine pH 5.0 (5.0-8.0) 10/21/19 14:34 Ur Specific [place] 1.025 (1.001-1.035) 10/21/19 14:34 Urine Protein Negative (Negative) 10/21/19 14:34 Urine Glucose (UA) 4+ (Negative) H 10/21/19 14:34 Urine Ketones Negative (Negative) 10/21/19 14:34 Urine Blood Trace (Negative) H 10/21/19 14:34 Urine Nitrite Negative (Negative) 10/21/19 14:34 Urine Bilirubin Negative (Negative) 10/21/19 14:34 Urine Urobilinogen <2.0 mg/dL (<2.0) 10/21/19 14:34 Ur Leukocyte Esterase Negative (Negative) 10/21/19 14:34 Urine RBC 1 /hpf (0-5) 10/21/19 14:34 Urine WBC 1 /hpf (0-5) 10/21/19 14:34 Urine Bacteria Rare /hpf (None) H 10/21/19 14:34 Urine Mucus Rare /hpf (None) H 10/21/19 14:34 Acetone, Qual Negative (Negative) 10/21/19 14:00 PT/INR, D-dimer PT 10.1 sec (9.0-12.0) 10/21/19 14:00 INR 1.0 (<1.2) 10/21/19 14:00 Abnormal lab findings: Abnormal Labs 10/21/19 10/21/19 10/21/19 14:00 14:00 14:00 WBC 11.0 H RBC 4.23 L MCV 124.1 H MCHC 26.2 L Neutrophils # 10.0 H Lymphocytes # 0.4 L Macrocytosis Marked A ABG pH ABG pCO2 ABG pO2 ABG HCO3 ABG Total CO2 ABG O2 Saturation VBG pH VBG pCO2 VBG HCO3 Sodium 116 L* Potassium 5.7 H Chloride 74 L* Carbon Dioxide 8 L* BUN 33 H Creatinine 2.18 H Glucose >1875 H* POC Glucose (mg/dL) Plasma Lactic Acid Fredrick Calcium Phosphorus Troponin I 0.881 H* Urine Glucose (UA) Urine Blood Urine Bacteria Urine Mucus 10/21/19 10/21/19 10/21/19 14:00 14:02 14:34 WBC RBC MCV MCHC Neutrophils # Lymphocytes # Macrocytosis ABG pH ABG pCO2 ABG pO2 ABG HCO3 ABG Total CO2 ABG O2 Saturation VBG pH VBG pCO2 VBG HCO3 Sodium Potassium Chloride Carbon Dioxide BUN Creatinine Glucose POC Glucose (mg/dL) >600 H Plasma Lactic Acid Fredrick Calcium Phosphorus 8.8 H Troponin I Urine Glucose (UA) 4+ H Urine Blood Trace H Urine Bacteria Rare H Urine Mucus Rare H 10/21/19 10/21/19 10/21/19 14:34 15:06 15:25 WBC RBC MCV MCHC Neutrophils # Lymphocytes # Macrocytosis ABG pH 7.00 L* ABG pCO2 19 L* ABG pO2 125 H ABG HCO3 5 L* ABG Total CO2 5 L ABG O2 Saturation VBG pH 7.03 L* VBG pCO2 31 L VBG HCO3 8 L* Sodium Potassium Chloride Carbon Dioxide BUN Creatinine Glucose POC Glucose (mg/dL) >600 H Plasma Lactic Acid Fredrick Calcium Phosphorus Troponin I Urine Glucose (UA) Urine Blood Urine Bacteria Urine Mucus 10/21/19 10/21/19 10/21/19 16:02 16:48 18:06 WBC RBC MCV MCHC Neutrophils # Lymphocytes # Macrocytosis ABG pH ABG pCO2 ABG pO2 ABG HCO3 ABG Total CO2 ABG O2 Saturation VBG pH VBG pCO2 VBG HCO3 Sodium 129 L Potassium Chloride 96 L Carbon Dioxide 6 L* BUN 30 H Creatinine 1.91 H Glucose 1509 H* POC Glucose (mg/dL) >600 H >600 H Plasma Lactic Acid Fredrick Calcium 7.9 L Phosphorus Troponin I Urine Glucose (UA) Urine Blood Urine Bacteria Urine Mucus 10/21/19 10/21/19 10/21/19 18:20 18:30 19:23 WBC RBC MCV MCHC Neutrophils # Lymphocytes # Macrocytosis ABG pH 7.13 L* ABG pCO2 26 L ABG pO2 138 H ABG HCO3 8 L* ABG Total CO2 9 L ABG O2 Saturation 98.8 H VBG pH VBG pCO2 VBG HCO3 Sodium 131 L Potassium Chloride 95 L Carbon Dioxide 8 L* BUN 30 H Creatinine 2.10 H Glucose POC Glucose (mg/dL) Plasma Lactic Acid Fredrick 11.7 H* Calcium Phosphorus Troponin I Urine Glucose (UA) Urine Blood Urine Bacteria Urine Mucus 10/21/19 10/21/19 10/21/19 19:51 20:28 20:28 WBC RBC MCV MCHC Neutrophils # Lymphocytes # Macrocytosis ABG pH ABG pCO2 ABG pO2 ABG HCO3 ABG Total CO2 ABG O2 Saturation VBG pH VBG pCO2 VBG HCO3 Sodium Potassium Chloride Carbon Dioxide BUN Creatinine Glucose 1230 H* POC Glucose (mg/dL) >600 H Plasma Lactic Acid Fredrick Calcium Phosphorus Troponin I 1.600 H* Urine Glucose (UA) Urine Blood Urine Bacteria Urine Mucus 10/21/19 20:56 WBC RBC MCV MCHC Neutrophils # Lymphocytes # Macrocytosis ABG pH ABG pCO2 ABG pO2 ABG HCO3 ABG Total CO2 ABG O2 Saturation VBG pH VBG pCO2 VBG HCO3 Sodium Potassium Chloride Carbon Dioxide BUN Creatinine Glucose POC Glucose (mg/dL) >600 H Plasma Lactic Acid Fredrick Calcium Phosphorus Troponin I Urine Glucose (UA) Urine Blood Urine Bacteria Urine Mucus - Diagnostic Findings Chest x-ray: image reviewed Assessment and Plan Plan: 1 acute hyperosmolar nonketotic diabetic syndrome with severe hyperglycemia and intravascular volume depletion/dehydration 2 severe dehydration 3 severe lactic acidosis secondary to dehydration 4 acute kidney injury secondary to above 5 acute anion gap metabolic acidosis secondary to above 6 altered mentaltatus secondary to above 7 diabetes mellitus maternal hyperglycemics on ount basis with poor compliance he 8 alzheimer's dementia 9 pseudohyponatremia, related to severe hyperglycemia, improved 10 History of hypertension 11 penile erythema, consistent with a fungal infection in the setting of diabetes mellitus,, consider bacterial infection, less likely possibilities are viral infections or dermatitis 12 4.6 cm distal abdominal aortic aneurysm extending to the aortic bifurcation and involving the common iliac arteries with indwelling BILATERAL ILIAC ENDOLUMINAL STENT GRAFT 13 peripheral vascular disease 14 troponin leak, consider Ischemia type 2 15 abdominal pain without evidence of any acute abdomen on evaluation. Plan Continue insulin drip and titrate according to the protocol for [facility]HS Half-normal saline along with 20 mg of potassium Monitor electrolytes every 4 hours Monitor metabolic acidosis Follow-up lactic acid level The antibiotic coverage with a combination of Diflucan and IV Rocephin Silvadene cream to the lower extremities This continued IV heparin and put the patient also DVT prophylaxis Monitor renal function Monitor mental status Keep the patient ICU We'll continue to follow
[2019-10-22 13:22] LABS: Glucose,Whole Blood 278 mg/dL (75-99)
--- NOTE | 2019-10-22 13:26 | P.PN ---
Subjective Progress Note Date: 10/22/19 80-year-old male patient known history of dementia, diabetes hypertension osteoarthritis in addition to abdominal aortic aneurysm, presented to the ED with altered mentation and severe dehydration. The patient's was noted to have elevated blood sugars at home which prompted this hospital visit. He was unable to provide any history at time of admission. He was confused and disoriented and his condition was progressively getting worse over this past few weeks. He apparently had generalized weakness, falls, and he was not seeking any medical attention. He has Alzheimer's dementia. His has Alzheimer's dementia also. Apparently his oral intake has been minimal and the patient was drinking only 4 L of soda on a daily basis. He has been noncompliant his diabetic medications also. A blood sugar of more than 1800. Sodium was 116. Potassium was 5.7 with a chloride of 74 and a serum bicarbonate 8 with an anion gap of 34. Creatinine was 2.4 with a BUN of 33. The serum lactate was 11.7. Troponin was 0.8. Phosphorus was 8.8. Lipase was 229. UA showed +4 glucose and the serum acetone was negative. The patient received a total of 4 L of IV fluids in the emergency department. He was started on an insulin drip. Currently the patient is on half-normal saline with 20 mEq of potassium. The patient metabolic acidosis improving. Based on the follow-up blood gases the pH was 7.0 and septal 7.13. Serum bicarb is also on the rise. The serum pCO2 is 26. Troponin 38. This was done and FiO2 of 36%. Sodium level improved and septal 131 and a potassium level is at 3.8. Anion gap is improving is down to 28. Creatinine is still at 2.1. Most recent blood sugar shows that the sugar is still elevated above 600 with a serum measurement of 1230. The chest x-ray shows some sub segmental atelectasis in the right lower lobe. CAT scan of the brain shows no evidence of any acute hemorrhage. There is some degenerative changes and nonspecific white matter changes consistent with remote ischemia. EKG showing sinus tachycardia along with Q waves over the anteroseptal leads consistent with an old infarct. Heart rate is around 102. On today's evaluation of 10/22/2019, the patient is still lethargic and somnolent and encephalopathic. He is unable to volunteer any history. He has dementia. Furthermore there has been significant metabolic disturbances, leading to his impaired mentation. In terms of his blood sugar control, the patient has been on insulin drip at 3 units an hour. His IV fluids have been running in the form of D5 half-normal saline along with 20 mEq of potassium at the rate of 150 mL an hour. The patient was receiving another 2 L of IV fluid bolus based on the fact that it looks quite dry with very dry mucosal membranes on today's evaluation. In terms of his blood sugar control, the blood sugar was steadily going down and after the blood sugar went down below 300 was switched him to a D5 half-normal saline solution. His anion gap is at 10. The serum bicarb is at 18. His lactic acid level has dropped down to 6.0. His troponin peaked at 2.2. Denies having any chest pain. Note that his based on troponin was at 0.8. His EKG showed old Q-wave changes over the anteroseptal leads and echocardiac Tito was done today and the patient was found to have a ejection fraction estimated to be around 30-35% along with anteroseptal and apical hypokinesis. No evidence of an aortic valve stenosis. Unable to estimate the right-sided pressures. Unable to have a good visualization of the rest of the valves. His white cell count of 15.4. His antibiotic coverage includes a combination of Rocephin and Zithromax and Diflucan for now. There is some erythema along the penile tip and the Maradiaga catheter is in place. Repeat chest x-ray from today shows atelectatic changes in the right lower lobe. No other significant abnormalities have been noted. The patient is currently on 4 L of oxygen by nasal cannula with a pulse ox of 98%. He still has some underlying sinus tachycardia. Objective - Vital Signs Vital signs: Vital Signs Temp 98.8 F 10/22/19 12:00 Pulse 115 H 10/22/19 12:00 Resp 32 H 10/22/19 12:00 BP 94/66 10/22/19 12:00 Pulse Ox 98 10/22/19 12:00 Intake & Output 10/21/19 10/22/19 10/22/19 18:59 06:59 18:59 Intake Total 2488.621 3130.917 Output Total 1603 140 Balance 869.959 3182.917 Weight 67.5 kg 67.5 kg Intake: IV 1800 600 0.45% NaCl with KCl 20 1500 600 Meq/l 1,000 ml @ 150 mls/ hr IV .Q6H40M [facility] Rx#: [id number] Levofloxacin 750Mg-D5w 100 Pmx 750 mg In Dextrose/ Water 1 150ml.bag @ 100 mls/hr IVPB ONCE STA Rx#: [id number] Sodium Chloride 0.9% 1, 200 000 ml @ 200 mls/hr IV . Q5H [facility] Rx#:[id number] Intake, IV Titration 735.819 4085.917 Amount D5-0.45% NaCl with KCl 300 20Meq/l 1,000 ml @ 150 mls/hr IV .Q6H40M [facility] Rx# :[id number] Fluconazole in NaCl,Iso- 50 Osm 100 mg In Saline 1 50ml.bag @ 50 mls/hr IVPB Q24H [facility] Rx#:[id number] Insulin Regular 100 unit 88.621 30.917 In Sodium Chloride 0.9% 100 ml @ 0.1 UNITS/KG/HR 6.929 mls/hr IV .[id number] [facility] Rx#:[id number] Potassium Chloride 10 meq 300 In Water For Injection 1 100ml.bag @ 100 mls/hr IVPB Q1HR [facility] Rx#: [id number] Potassium Phosphate 10 200 200 mmol In Sodium Chloride 0 .9% 250 ml @ 125 mls/hr IV Q2H [facility] Rx#:[id number] Sodium Chloride 0.9% 2, 2000 000 ml @ 999 mls/hr IV . Q2H1M [facility] Rx#:[id number] cefTRIAXone 1 gm In 50 Sodium Chloride 0.9% 50 ml @ 100 mls/hr IVPB Q24H [facility] Rx#:[id number] Output: Urine 1603 140 Other: Voiding Method Indwelling Catheter Indwelling Catheter - Exam Gen. appearance the patient is lethargic, comfortable no agitation and Acute respiratory distress. Head exam was generally normal. There was no scleral icterus or corneal arcus. Mucous membranes were dry Neck was supple and without jugular venous distension, thyromegaly, or carotid bruits. Carotids were easily palpable bilaterally. There was no adenopathy. Lungs were clear to auscultation and percussion, and with normal diaphragmatic excursion. No wheezes or rales were noted. Cardiac exam revealed the PMI to be normally situated and sized. The rhythm was regular and no extrasystoles were noted during several minutes of auscultation. The first and second heart sounds were normal and physiologic splitting of the second heart sound was noted. There were no murmurs, rubs, clicks, or gallops. Abdominal exam revealed normal bowel sounds. The abdomen was soft, non-tender, and without masses, organomegaly, or appreciable enlargement of the abdominal aorta. The patient is sensitive to touch in his abdominal wall. He has bowel sounds. No organomegaly. Abdomen itself is quite soft. Extremities reveal chronic ulceration lower extremities bilaterally with dimin ished pulses. No cyanosis or clubbing. There is no open wounds or cellulitis in the lower extremities. Neurologic the patient is confused and oriented 1 only. Cranial nerves are grossly intact. He is moving all 4 extremities. Neurologic exam is nonfocal. Skin examination of the skin shows some penile tip erythema and a Mraadiaga catheter is in place. - Labs CBC & Chem 7: 10/22/19 06:06 10/22/19 09:59 Labs: Abnormal Lab Results - Last 24 Hours (Table) 10/21/19 10/21/19 10/21/19 Range/Units 14:00 14:00 14:00 WBC 11.0 H (3.8-10.6) k/uL RBC 4.23 L (4.30-5.90) m/uL MCV 124.1 H (80.0-100.0) fL MCHC 26.2 L (31.0-37.0) g/dL Neutrophils # 10.0 H (1.3-7.7) k/uL Lymphocytes # 0.4 L (1.0-4.8) k/uL Macrocytosis Marked A ABG pH (7.35-7.45) ABG pCO2 (35-45) mmHg ABG pO2 (83-108) mmHg ABG HCO3 (21-25) mmol/L ABG Total CO2 (19-24) mmol/L ABG O2 Saturation (94-97) % VBG pH (7.31-7.41) VBG pCO2 (37-51) mmHg VBG HCO3 (24-28) mmol/L Sodium 116 L* (137-145) mmol/L Potassium 5.7 H (3.5-5.1) mmol/L Chloride 74 L* (98-107) mmol/L Carbon Dioxide 8 L* (22-30) mmol/L BUN 33 H (9-20) mg/dL Creatinine 2.18 H (0.66-1.25) mg/dL Glucose >1875 H* (74-99) mg/dL POC Glucose (mg/dL) (75-99) mg/dL Plasma Lactic Acid Fredrick (0.7-2.0) mmol/L Calcium (8.4-10.2) mg/dL Phosphorus (2.5-4.5) mg/dL AST (17-59) U/L ALT (4-49) U/L Alkaline Phosphatase (38-126) U/L Total Creatine Kinase (55-170) U/L CK-MB (CK-2) (0.0-2.4) ng/mL Troponin I 0.881 H* (0.000-0.034) ng/mL Albumin (3.5-5.0) g/dL Triglycerides (<150) mg/dL HDL Cholesterol (40-60) mg/dL Urine Glucose (UA) (Negative) Urine Blood (Negative) Urine Bacteria (None) /hpf Urine Mucus (None) /hpf 10/21/19 10/21/19 10/21/19 Range/Units 14:00 14:02 14:34 WBC (3.8-10.6) k/uL RBC (4.30-5.90) m/uL MCV (80.0-100.0) fL MCHC (31.0-37.0) g/dL Neutrophils # (1.3-7.7) k/uL Lymphocytes # (1.0-4.8) k/uL Macrocytosis ABG pH (7.35-7.45) ABG pCO2 (35-45) mmHg ABG pO2 (83-108) mmHg ABG HCO3 (21-25) mmol/L ABG Total CO2 (19-24) mmol/L ABG O2 Saturation (94-97) % VBG pH (7.31-7.41) VBG pCO2 (37-51) mmHg VBG HCO3 (24-28) mmol/L Sodium (137-145) mmol/L Potassium (3.5-5.1) mmol/L Chloride (98-107) mmol/L Carbon Dioxide (22-30) mmol/L BUN (9-20) mg/dL Creatinine (0.66-1.25) mg/dL Glucose (74-99) mg/dL POC Glucose (mg/dL) >600 H (75-99) mg/dL Plasma Lactic Acid Fredrick (0.7-2.0) mmol/L Calcium (8.4-10.2) mg/dL Phosphorus 8.8 H (2.5-4.5) mg/dL AST (17-59) U/L ALT (4-49) U/L Alkaline Phosphatase (38-126) U/L Total Creatine Kinase (55-170) U/L CK-MB (CK-2) (0.0-2.4) ng/mL Troponin I (0.000-0.034) ng/mL Albumin (3.5-5.0) g/dL Triglycerides (<150) mg/dL HDL Cholesterol (40-60) mg/dL Urine Glucose (UA) 4+ H (Negative) Urine Blood Trace H (Negative) Urine Bacteria Rare H (None) /hpf Urine Mucus Rare H (None) /hpf 10/21/19 10/21/19 10/21/19 Range/Units 14:34 15:06 15:25 WBC (3.8-10.6) k/uL RBC (4.30-5.90) m/uL MCV (80.0-100.0) fL MCHC (31.0-37.0) g/dL Neutrophils # (1.3-7.7) k/uL Lymphocytes # (1.0-4.8) k/uL Macrocytosis ABG pH 7.00 L* (7.35-7.45) ABG pCO2 19 L* (35-45) mmHg ABG pO2 125 H (83-108) mmHg ABG HCO3 5 L* (21-25) mmol/L ABG Total CO2 5 L (19-24) mmol/L ABG O2 Saturation (94-97) % VBG pH 7.03 L* (7.31-7.41) VBG pCO2 31 L (37-51) mmHg VBG HCO3 8 L* (24-28) mmol/L Sodium (137-145) mmol/L Potassium (3.5-5.1) mmol/L Chloride (98-107) mmol/L Carbon Dioxide (22-30) mmol/L BUN (9-20) mg/dL Creatinine (0.66-1.25) mg/dL Glucose (74-99) mg/dL POC Glucose (mg/dL) >600 H (75-99) mg/dL Plasma Lactic Acid Fredrick (0.7-2.0) mmol/L Calcium (8.4-10.2) mg/dL Phosphorus (2.5-4.5) mg/dL AST (17-59) U/L ALT (4-49) U/L Alkaline Phosphatase (38-126) U/L Total Creatine Kinase (55-170) U/L CK-MB (CK-2) (0.0-2.4) ng/mL Troponin I (0.000-0.034) ng/mL Albumin (3.5-5.0) g/dL Triglycerides (<150) mg/dL HDL Cholesterol (40-60) mg/dL Urine Glucose (UA) (Negative) Urine Blood (Negative) Urine Bacteria (None) /hpf Urine Mucus (None) /hpf 10/21/19 10/21/19 10/21/19 Range/Units 16:02 16:48 18:06 WBC (3.8-10.6) k/uL RBC (4.30-5.90) m/uL MCV (80.0-100.0) fL MCHC (31.0-37.0) g/dL Neutrophils # (1.3-7.7) k/uL Lymphocytes # (1.0-4.8) k/uL Macrocytosis ABG pH (7.35-7.45) ABG pCO2 (35-45) mmHg ABG pO2 (83-108) mmHg ABG HCO3 (21-25) mmol/L ABG Total CO2 (19-24) mmol/L ABG O2 Saturation (94-97) % VBG pH (7.31-7.41) VBG pCO2 (37-51) mmHg VBG HCO3 (24-28) mmol/L Sodium 129 L (137-145) mmol/L Potassium (3.5-5.1) mmol/L Chloride 96 L (98-107) mmol/L Carbon Dioxide 6 L* (22-30) mmol/L BUN 30 H (9-20) mg/dL Creatinine 1.91 H (0.66-1.25) mg/dL Glucose 1509 H* (74-99) mg/dL POC Glucose (mg/dL) >600 H >600 H (75-99) mg/dL Plasma Lactic Acid Fredrick (0.7-2.0) mmol/L Calcium 7.9 L (8.4-10.2) mg/dL Phosphorus (2.5-4.5) mg/dL AST (17-59) U/L ALT (4-49) U/L Alkaline Phosphatase (38-126) U/L Total Creatine Kinase (55-170) U/L CK-MB (CK-2) (0.0-2.4) ng/mL Troponin I (0.000-0.034) ng/mL Albumin (3.5-5.0) g/dL Triglycerides (<150) mg/dL HDL Cholesterol (40-60) mg/dL Urine Glucose (UA) (Negative) Urine Blood (Negative) Urine Bacteria (None) /hpf Urine Mucus (None) /hpf 10/21/19 10/21/19 10/21/19 Range/Units 18:20 18:30 19:23 WBC (3.8-10.6) k/uL RBC (4.30-5.90) m/uL MCV (80.0-100.0) fL MCHC (31.0-37.0) g/dL Neutrophils # (1.3-7.7) k/uL Lymphocytes # (1.0-4.8) k/uL Macrocytosis ABG pH 7.13 L* (7.35-7.45) ABG pCO2 26 L (35-45) mmHg ABG pO2 138 H (83-108) mmHg ABG HCO3 8 L* (21-25) mmol/L ABG Total CO2 9 L (19-24) mmol/L ABG O2 Saturation 98.8 H (94-97) % VBG pH (7.31-7.41) VBG pCO2 (37-51) mmHg VBG HCO3 (24-28) mmol/L Sodium 131 L (137-145) mmol/L Potassium (3.5-5.1) mmol/L Chloride 95 L (98-107) mmol/L Carbon Dioxide 8 L* (22-30) mmol/L BUN 30 H (9-20) mg/dL Creatinine 2.10 H (0.66-1.25) mg/dL Glucose 1422 H* (74-99) mg/dL POC Glucose (mg/dL) (75-99) mg/dL Plasma Lactic Acid Fredrick 11.7 H* (0.7-2.0) mmol/L Calcium (8.4-10.2) mg/dL Phosphorus (2.5-4.5) mg/dL AST (17-59) U/L ALT (4-49) U/L Alkaline Phosphatase (38-126) U/L Total Creatine Kinase (55-170) U/L CK-MB (CK-2) (0.0-2.4) ng/mL Troponin I (0.000-0.034) ng/mL Albumin (3.5-5.0) g/dL Triglycerides (<150) mg/dL HDL Cholesterol (40-60) mg/dL Urine Glucose (UA) (Negative) Urine Blood (Negative) Urine Bacteria (None) /hpf Urine Mucus (None) /hpf 10/21/19 10/21/19 10/21/19 Range/Units 19:51 20:28 20:28 WBC (3.8-10.6) k/uL RBC (4.30-5.90) m/uL MCV (80.0-100.0) fL MCHC (31.0-37.0) g/dL Neutrophils # (1.3-7.7) k/uL Lymphocytes # (1.0-4.8) k/uL Macrocytosis ABG pH (7.35-7.45) ABG pCO2 (35-45) mmHg ABG pO2 (83-108) mmHg ABG HCO3 (21-25) mmol/L ABG Total CO2 (19-24) mmol/L ABG O2 Saturation (94-97) % VBG pH (7.31-7.41) VBG pCO2 (37-51) mmHg VBG HCO3 (24-28) mmol/L Sodium (137-145) mmol/L Potassium (3.5-5.1) mmol/L Chloride (98-107) mmol/L Carbon Dioxide (22-30) mmol/L BUN (9-20) mg/dL Creatinine (0.66-1.25) mg/dL Glucose 1230 H* (74-99) mg/dL POC Glucose (mg/dL) >600 H (75-99) mg/dL Plasma Lactic Acid Fredrick (0.7-2.0) mmol/L Calcium (8.4-10.2) mg/dL Phosphorus (2.5-4.5) mg/dL AST (17-59) U/L ALT (4-49) U/L Alkaline Phosphatase (38-126) U/L Total Creatine Kinase (55-170) U/L CK-MB (CK-2) (0.0-2.4) ng/mL Troponin I 1.600 H* (0.000-0.034) ng/mL Albumin (3.5-5.0) g/dL Triglycerides (<150) mg/dL HDL Cholesterol (40-60) mg/dL Urine Glucose (UA) (Negative) Urine Blood (Negative) Urine Bacteria (None) /hpf Urine Mucus (None) /hpf 10/21/19 10/21/19 10/21/19 Range/Units 20:56 22:04 22:20 WBC (3.8-10.6) k/uL RBC (4.30-5.90) m/uL MCV (80.0-100.0) fL MCHC (31.0-37.0) g/dL Neutrophils # (1.3-7.7) k/uL Lymphocytes # (1.0-4.8) k/uL Macrocytosis ABG pH (7.35-7.45) ABG pCO2 (35-45) mmHg ABG pO2 (83-108) mmHg ABG HCO3 (21-25) mmol/L ABG Total CO2 (19-24) mmol/L ABG O2 Saturation (94-97) % VBG pH (7.31-7.41) VBG pCO2 (37-51) mmHg VBG HCO3 (24-28) mmol/L Sodium (137-145) mmol/L Potassium 3.4 L (3.5-5.1) mmol/L Chloride (98-107) mmol/L Carbon Dioxide 17 L (22-30) mmol/L BUN 31 H (9-20) mg/dL Creatinine 1.78 H (0.66-1.25) mg/dL Glucose 967 H* (74-99) mg/dL POC Glucose (mg/dL) >600 H >600 H (75-99) mg/dL Plasma Lactic Acid Fredrick (0.7-2.0) mmol/L Calcium (8.4-10.2) mg/dL Phosphorus (2.5-4.5) mg/dL AST (17-59) U/L ALT (4-49) U/L Alkaline Phosphatase (38-126) U/L Total Creatine Kinase (55-170) U/L CK-MB (CK-2) (0.0-2.4) ng/mL Troponin I (0.000-0.034) ng/mL Albumin (3.5-5.0) g/dL Triglycerides (<150) mg/dL HDL Cholesterol (40-60) mg/dL Urine Glucose (UA) (Negative) Urine Blood (Negative) Urine Bacteria (None) /hpf Urine Mucus (None) /hpf 10/21/19 10/21/19 10/22/19 Range/Units 22:20 23:13 00:31 WBC (3.8-10.6) k/uL RBC (4.30-5.90) m/uL MCV (80.0-100.0) fL MCHC (31.0-37.0) g/dL Neutrophils # (1.3-7.7) k/uL Lymphocytes # (1.0-4.8) k/uL Macrocytosis ABG pH (7.35-7.45) ABG pCO2 (35-45) mmHg ABG pO2 (83-108) mmHg ABG HCO3 (21-25) mmol/L ABG Total CO2 (19-24) mmol/L ABG O2 Saturation (94-97) % VBG pH (7.31-7.41) VBG pCO2 (37-51) mmHg VBG HCO3 (24-28) mmol/L Sodium (137-145) mmol/L Potassium (3.5-5.1) mmol/L Chloride (98-107) mmol/L Carbon Dioxide (22-30) mmol/L BUN (9-20) mg/dL Creatinine (0.66-1.25) mg/dL Glucose (74-99) mg/dL POC Glucose (mg/dL) >600 H >600 H (75-99) mg/dL Plasma Lactic Acid Fredrick 8.8 H* (0.7-2.0) mmol/L Calcium (8.4-10.2) mg/dL Phosphorus (2.5-4.5) mg/dL AST (17-59) U/L ALT (4-49) U/L Alkaline Phosphatase (38-126) U/L Total Creatine Kinase (55-170) U/L CK-MB (CK-2) (0.0-2.4) ng/mL Troponin I (0.000-0.034) ng/mL Albumin (3.5-5.0) g/dL Triglycerides (<150) mg/dL HDL Cholesterol (40-60) mg/dL Urine Glucose (UA) (Negative) Urine Blood (Negative) Urine Bacteria (None) /hpf Urine Mucus (None) /hpf 10/22/19 10/22/19 10/22/19 Range/Units 01:49 02:19 02:19 WBC (3.8-10.6) k/uL RBC (4.30-5.90) m/uL MCV (80.0-100.0) fL MCHC (31.0-37.0) g/dL Neutrophils # (1.3-7.7) k/uL Lymphocytes # (1.0-4.8) k/uL Macrocytosis ABG pH (7.35-7.45) ABG pCO2 (35-45) mmHg ABG pO2 (83-108) mmHg ABG HCO3 (21-25) mmol/L ABG Total CO2 (19-24) mmol/L ABG O2 Saturation (94-97) % VBG pH (7.31-7.41) VBG pCO2 (37-51) mmHg VBG HCO3 (24-28) mmol/L Sodium (137-145) mmol/L Potassium (3.5-5.1) mmol/L Chloride (98-107) mmol/L Carbon Dioxide 20 L (22-30) mmol/L BUN 31 H (9-20) mg/dL Creatinine 1.75 H (0.66-1.25) mg/dL Glucose 600 H* (74-99) mg/dL POC Glucose (mg/dL) >600 H (75-99) mg/dL Plasma Lactic Acid Fredrick 6.7 H* (0.7-2.0) mmol/L Calcium (8.4-10.2) mg/dL Phosphorus 2.0 L (2.5-4.5) mg/dL AST (17-59) U/L ALT (4-49) U/L Alkaline Phosphatase (38-126) U/L Total Creatine Kinase (55-170) U/L CK-MB (CK-2) (0.0-2.4) ng/mL Troponin I (0.000-0.034) ng/mL Albumin (3.5-5.0) g/dL Triglycerides (<150) mg/dL HDL Cholesterol (40-60) mg/dL Urine Glucose (UA) (Negative) Urine Blood (Negative) Urine Bacteria (None) /hpf Urine Mucus (None) /hpf 10/22/19 10/22/19 10/22/19 Range/Units 03:58 04:58 06:02 WBC (3.8-10.6) k/uL RBC (4.30-5.90) m/uL MCV (80.0-100.0) fL MCHC (31.0-37.0) g/dL Neutrophils # (1.3-7.7) k/uL Lymphocytes # (1.0-4.8) k/uL Macrocytosis ABG pH (7.35-7.45) ABG pCO2 (35-45) mmHg ABG pO2 (83-108) mmHg ABG HCO3 (21-25) mmol/L ABG Total CO2 (19-24) mmol/L ABG O2 Saturation (94-97) % VBG pH (7.31-7.41) VBG pCO2 (37-51) mmHg VBG HCO3 (24-28) mmol/L Sodium (137-145) mmol/L Potassium (3.5-5.1) mmol/L Chloride (98-107) mmol/L Carbon Dioxide (22-30) mmol/L BUN (9-20) mg/dL Creatinine (0.66-1.25) mg/dL Glucose (74-99) mg/dL POC Glucose (mg/dL) 510 H 512 H 404 H (75-99) mg/dL Plasma Lactic Acid Fredrick (0.7-2.0) mmol/L Calcium (8.4-10.2) mg/dL Phosphorus (2.5-4.5) mg/dL AST (17-59) U/L ALT (4-49) U/L Alkaline Phosphatase (38-126) U/L Total Creatine Kinase (55-170) U/L CK-MB (CK-2) (0.0-2.4) ng/mL Troponin I (0.000-0.034) ng/mL Albumin (3.5-5.0) g/dL Triglycerides (<150) mg/dL HDL Cholesterol (40-60) mg/dL Urine Glucose (UA) (Negative) Urine Blood (Negative) Urine Bacteria (None) /hpf Urine Mucus (None) /hpf 10/22/19 10/22/19 10/22/19 Range/Units 06:06 06:06 06:06 WBC 15.4 H (3.8-10.6) k/uL RBC (4.30-5.90) m/uL MCV (80.0-100.0) fL MCHC (31.0-37.0) g/dL Neutrophils # 14.1 H (1.3-7.7) k/uL Lymphocytes # 0.7 L (1.0-4.8) k/uL Macrocytosis ABG pH (7.35-7.45) ABG pCO2 (35-45) mmHg ABG pO2 (83-108) mmHg ABG HCO3 (21-25) mmol/L ABG Total CO2 (19-24) mmol/L ABG O2 Saturation (94-97) % VBG pH (7.31-7.41) VBG pCO2 (37-51) mmHg VBG HCO3 (24-28) mmol/L Sodium (137-145) mmol/L Potassium (3.5-5.1) mmol/L Chloride 109 H (98-107) mmol/L Carbon Dioxide 19 L (22-30) mmol/L BUN 32 H (9-20) mg/dL Creatinine 1.99 H (0.66-1.25) mg/dL Glucose 390 H (74-99) mg/dL POC Glucose (mg/dL) (75-99) mg/dL Plasma Lactic Acid Fredrick 5.6 H* (0.7-2.0) mmol/L Calcium (8.4-10.2) mg/dL Phosphorus (2.5-4.5) mg/dL AST 143 H (17-59) U/L ALT 76 H (4-49) U/L Alkaline Phosphatase 129 H (38-126) U/L Total Creatine Kinase (55-170) U/L CK-MB (CK-2) (0.0-2.4) ng/mL Troponin I (0.000-0.034) ng/mL Albumin 3.4 L (3.5-5.0) g/dL Triglycerides 512 H (<150) mg/dL HDL Cholesterol 33 L (40-60) mg/dL Urine Glucose (UA) (Negative) Urine Blood (Negative) Urine Bacteria (None) /hpf Urine Mucus (None) /hpf 10/22/19 10/22/19 10/22/19 Range/Units 06:51 08:07 09:12 WBC (3.8-10.6) k/uL RBC (4.30-5.90) m/uL MCV (80.0-100.0) fL MCHC (31.0-37.0) g/dL Neutrophils # (1.3-7.7) k/uL Lymphocytes # (1.0-4.8) k/uL Macrocytosis ABG pH (7.35-7.45) ABG pCO2 (35-45) mmHg ABG pO2 (83-108) mmHg ABG HCO3 (21-25) mmol/L ABG Total CO2 (19-24) mmol/L ABG O2 Saturation (94-97) % VBG pH (7.31-7.41) VBG pCO2 (37-51) mmHg VBG HCO3 (24-28) mmol/L Sodium (137-145) mmol/L Potassium (3.5-5.1) mmol/L Chloride (98-107) mmol/L Carbon Dioxide (22-30) mmol/L BUN (9-20) mg/dL Creatinine (0.66-1.25) mg/dL Glucose (74-99) mg/dL POC Glucose (mg/dL) 407 H 401 H 331 H (75-99) mg/dL Plasma Lactic Acid Fredrick (0.7-2.0) mmol/L Calcium (8.4-10.2) mg/dL Phosphorus (2.5-4.5) mg/dL AST (17-59) U/L ALT (4-49) U/L Alkaline Phosphatase (38-126) U/L Total Creatine Kinase (55-170) U/L CK-MB (CK-2) (0.0-2.4) ng/mL Troponin I (0.000-0.034) ng/mL Albumin (3.5-5.0) g/dL Triglycerides (<150) mg/dL HDL Cholesterol (40-60) mg/dL Urine Glucose (UA) (Negative) Urine Blood (Negative) Urine Bacteria (None) /hpf Urine Mucus (None) /hpf 10/22/19 10/22/19 10/22/19 Range/Units 09:59 09:59 09:59 WBC (3.8-10.6) k/uL RBC (4.30-5.90) m/uL MCV (80.0-100.0) fL MCHC (31.0-37.0) g/dL Neutrophils # (1.3-7.7) k/uL Lymphocytes # (1.0-4.8) k/uL Macrocytosis ABG pH (7.35-7.45) ABG pCO2 (35-45) mmHg ABG pO2 (83-108) mmHg ABG HCO3 (21-25) mmol/L ABG Total CO2 (19-24) mmol/L ABG O2 Saturation (94-97) % VBG pH (7.31-7.41) VBG pCO2 (37-51) mmHg VBG HCO3 (24-28) mmol/L Sodium (137-145) mmol/L Potassium (3.5-5.1) mmol/L Chloride 117 H (98-107) mmol/L Carbon Dioxide 18 L (22-30) mmol/L BUN 32 H (9-20) mg/dL Creatinine 1.89 H (0.66-1.25) mg/dL Glucose 230 H (74-99) mg/dL POC Glucose (mg/dL) (75-99) mg/dL Plasma Lactic Acid Fredrick 6.0 H* (0.7-2.0) mmol/L Calcium 7.9 L (8.4-10.2) mg/dL Phosphorus (2.5-4.5) mg/dL AST (17-59) U/L ALT (4-49) U/L Alkaline Phosphatase (38-126) U/L Total Creatine Kinase 191 H (55-170) U/L CK-MB (CK-2) 7.3 H (0.0-2.4) ng/mL Troponin I 2.250 H* (0.000-0.034) ng/mL Albumin (3.5-5.0) g/dL Triglycerides (<150) mg/dL HDL Cholesterol (40-60) mg/dL Urine Glucose (UA) (Negative) Urine Blood (Negative) Urine Bacteria (None) /hpf Urine Mucus (None) /hpf 10/22/19 10/22/19 10/22/19 Range/Units 10:12 11:10 12:00 WBC (3.8-10.6) k/uL RBC (4.30-5.90) m/uL MCV (80.0-100.0) fL MCHC (31.0-37.0) g/dL Neutrophils # (1.3-7.7) k/uL Lymphocytes # (1.0-4.8) k/uL Macrocytosis ABG pH (7.35-7.45) ABG pCO2 (35-45) mmHg ABG pO2 (83-108) mmHg ABG HCO3 (21-25) mmol/L ABG Total CO2 (19-24) mmol/L ABG O2 Saturation (94-97) % VBG pH (7.31-7.41) VBG pCO2 (37-51) mmHg VBG HCO3 (24-28) mmol/L Sodium (137-145) mmol/L Potassium (3.5-5.1) mmol/L Chloride (98-107) mmol/L Carbon Dioxide (22-30) mmol/L BUN (9-20) mg/dL Creatinine (0.66-1.25) mg/dL Glucose (74-99) mg/dL POC Glucose (mg/dL) 235 H 226 H 375 H (75-99) mg/dL Plasma Lactic Acid Fredrick (0.7-2.0) mmol/L Calcium (8.4-10.2) mg/dL Phosphorus (2.5-4.5) mg/dL AST (17-59) U/L ALT (4-49) U/L Alkaline Phosphatase (38-126) U/L Total Creatine Kinase (55-170) U/L CK-MB (CK-2) (0.0-2.4) ng/mL Troponin I (0.000-0.034) ng/mL Albumin (3.5-5.0) g/dL Triglycerides (<150) mg/dL HDL Cholesterol (40-60) mg/dL Urine Glucose (UA) (Negative) Urine Blood (Negative) Urine Bacteria (None) /hpf Urine Mucus (None) /hpf Assessment and Plan Plan: 1 acute hyperosmolar nonketotic diabetic syndrome with severe hyperglycemia and intravascular volume depletion/dehydration, improving and the patient was started on an insulin drip in addition to IV fluids and currently is on D5 half- normal with 20 mg of potassium. Additional 2 L of IV fluid bolus was given to him today. 2 severe dehydration, improving 3 severe lactic acidosis secondary to dehydration, improving and the lactic acid level is down to 6 4 acute kidney injury secondary to above versus chronic renal failure 5 acute anion gap metabolic acidosis secondary to above, improving and the anion gap is 10 with a serum bicarb of 18 6 altered mentaltatus secondary to above 7 diabetes mellitus maternal hyperglycemics on ount basis with poor compliance 8 alzheimer's dementia 9 pseudohyponatremia, related to severe hyperglycemia, improved 10 History of hypertension 11 penile erythema, consistent with a fungal infection in the setting of diabetes mellitus,, consider bacterial infection, less likely possibilities are viral infections or dermatitis 12 4.6 cm distal abdominal aortic aneurysm extending to the aortic bifurcation and involving the common iliac arteries with indwelling BILATERAL ILIAC EN DOLUMINAL STENT GRAFT 13 peripheral vascular disease 14 troponin leak, consider Ischemia type 2, the troponin peaked at 2.25 15 abdominal pain without evidence of any acute abdomen on evaluation. 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 Plan Continue insulin drip and titrate according to the protocol for [facility] IV fluids has been switched to D5 half-normal saline along with potassium supplements Monitor electrolytes Monitor lactic acid level Echo of the heart was noted Maintain IV fluids at the rate of 150 mL an hour and watch for any signs of fluid overload Continue same antibiotic coverage Consult nephrology Monitor mental status CAT scan of the abdomen till later stage to follow-up on the abdominal aortic aneurysm and this will be preferred ventilator status once the patient's renal function stabilizes. The patient's creatinine has been ranging to 1.2 and 1.5 in July 2018. No proteinuria on the urinalysis. DVT prophylaxis Monitor renal function Monitor mental status Keep the patient ICU We'll continue to follow
[2019-10-22 14:05] LABS: Glucose,Whole Blood 236 mg/dL (75-99)
--- NOTE | 2019-10-22 14:05 | US ---
EXAMINATION TYPE: US kidneys/renal and bladder DATE OF EXAM: 10/22/2019 COMPARISON: CT 07/27/2018 CLINICAL HISTORY: MITA. Difficult and very limited exam. ICU patient, patient is confused, unable to t urn onto his side, unable to take a deep breath in and hold EXAM MEASUREMENTS: Right Kidney: 8.7 x 3.9 x 4.7 cm Left Kidney: 8.8 x 4.3 x 3.7 cm Right Kidney: Very limited evaluation. No hydronephrosis visualized. Unable to visualize cysts seen on CT previously Left Kidney: Very limited evaluation, possible cystic area visualized mid pole measuring 1.6 cm Bladder: Not distended, patient has goetz IMPRESSION: Suspected cyst left kidney. This cannot be classified as simple based on the limitations due to body habitus.
--- NOTE | 2019-10-22 14:06 | P.CRDCN ---
History of Present Illness History of present illness: HISTORY OF PRESENTING ILLNESS This is a pleasant 79-year-old male past medical history significant for abdominal aortic aneurysm, skin cancer, hypertension, diabetes mellitus and dementia. He is alert however disoriented and mumbling incoherently. Information is obtained from nursing staff and medical record. We have been asked to see in consultation for elevated troponin. He presented to the hospital with family for symptoms of altered mental status and hyperglycemia. Initial laboratory investigation revealed significant abnormalities. Blood sugar greater than 1875, sodium 116, potassium 5.7, chloride 74, bicarb 8 with an anion gap of 34, creatinine 2.4, lactic acid 11.7, troponin 0.8, lipase 229, pH 7 pCO2 26. He received 4 L of fluids in the emergency department and was initiated on an insulin infusion. He is seen and examined resting comfortably in the ICU, he is confused and has a public safety director at the bedside. He has no complaints of chest pain or shortness of breath at this time however he is mildly tachypneic with conversation. He is also complaining of significant abdominal tenderness. Repeat blood work this morning reveals a white count of 15.4, hemoglobin 16.3, platelets 248, sodium 144, potassium 4.7, creatinine 1.99, lactic acid 5.6, AST 143, ALT 76, alkaline phosphate 129, triglycerides 512 and repeat troponin 2.25. Currently maintained on aspirin 325 mg daily, insulin infusion, antibiotics and electrolyte replacement. EKG on arrival r eveals sinus tachycardia with poor R-wave progression. Chest x-ray reveals persistent but improving right lower lobe atelectasis. CT of the brain reveals no acute hemorrhage. Echocardiogram obtained reveals impaired LV systolic function with ejection fraction 30-35% with anterior apical septal hypokinesia. Review of office records reveal back in 2014 he underwent echocardiography and stress test in the office. Echo revealed preserved LV systolic function with ejection fraction 60%, no wall motion abnormalities and grade 1 diastolic dysfunction. Persantine stress test at that time was negative for stress- induced reversible ischemia. Telemetry tracings show intermittent episodes of sinus tachycardia. REVIEW OF SYSTEMS At the time of my exam he is confused, alert and conversing: CONSTITUTIONAL: Denies fever or chills. CARDIOVASCULAR: Denies chest pain, shortness of breath, orthopnea, PND or palpitations. RESPIRATORY: Denies cough. GASTROINTESTINAL: Complains of abdominal pain and tenderness. Denies diarrhea, constipation, nausea or vomiting. MUSCULOSKELETAL: Denies myalgias. NEUROLOGIC: Denies numbness, tingling or weakness. ENDOCRINE: Denies fatigue, weight change, polydipsia or polyurina. GENITOURINARY: Denies burning, hematuria or urgency with micturation. HEMATOLOGIC: Denies history of anemia or bleeding. PHYSICAL EXAMINATION Blood pressure 95/69 heart rate 115 afebrile and maintaining oxygen saturation on nasal cannula. CONSTITUTIONAL: Mildy tachypneic HEENT: Head is normocephalic. Pupils are equal, round. Sclerae anicteric. Mucous membranes of the mouth are dry. Poor dentition. No JVD. No carotid bruit. CHEST EXAMINATION: Lungs are clear to auscultation. No chest wall tenderness is noted on palpation or with deep breathing. HEART EXAMINATION: Regular rate and rhythm. S1, S2 heard. No murmurs, gallops or rub. ABDOMEN: Soft, nontender. Positive bowel sounds. EXTREMITIES: 2+ peripheral pulses, no lower extremity edema and no calf tenderness. NEUROLOGIC EXAMINATION: Patient is awake, alert and disoriented. ASSESSMENT Troponin elevation secondary hypoxia and sepsis. Type II myocardial injury from supply demand mismatch Cardiomyopathy, no history of previous CAD and normal stress test in 2015 Systolic heart failure, clinically not in overt heart failure Abdominal pain/tenderness Hyperglycemia and diabetic syndrome Acute kidney injury Lactic acidosis Febrile illness Hypoxia Metabolic acidosis Encephalopathy Leukocytosis Hyponatremia, resolved Hyperkalemia, resolved History of abdominal aortic aneurysm s/p stent graft Hypertension Diabetes mellitus Dementia Non-compliance secondary to dementia PLAN Decrease aspirin to 81 mg daily. Initiate a small dose of beta duane, will increase if blood pressure can tolerate. Resume pravastatin. Hold BRIDGETT inhibitor given acute kidney injury. We will continue to follow closely. Thank you kindly for this consultation. Nurse Practitioner note has been reviewed, I agree with a documented findings and plan of care. Patient was seen and examined. 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 years ago, AAA-extending to the iliacs measuring 4.6 cm based on the previous computed tomography scan imaging, DJD,back pain, skin cancer, History of Any Multi-Drug Resistant Organisms: None Reported Date of last positivie culture/infection: None MDRO Source:: None Past Surgical History: Adenoidectomy, Joint Replacement, Tonsillectomy Additional Past Surgical History / Comment(s): left hip, left knee replaced, Past Anesthesia/Blood Transfusion Reactions: No Reported Reaction Past Psychological History: No Psychological Hx Reported Smoking Status: Former smoker Past Alcohol Use History: None Reported Past Drug Use History: None Reported - Past Family History Son(s) Additional Family Medical History / Comment(s): unable to obtain patient not good historian Mother Additional Family Medical History / Comment(s): unable to obtain patient not a good historian Medications and Allergies Home Medications Medication Instructions Recorded Confirmed Type DULoxetine HCL [Cymbalta] 60 mg PO DAILY 05/13/18 10/21/19 History Donepezil [Aricept] 5 mg PO HS #30 tab 05/15/18 10/21/19 Rx Cholecalciferol [Vitamin D3 (25 1,000 unit PO DAILY 07/27/18 10/21/19 History Mcg = 1000 Iu)] Lisinopril-Hctz 20-12.5 mg 1 tab PO BID 07/27/18 10/21/19 History [Zestoretic 20-12.5] Pantoprazole [Protonix] 40 mg PO DAILY #30 tablet. 07/28/18 10/21/19 Rx Cyanocobalamin (Vitamin B-12) 1,000 mcg PO DAILY 10/21/19 10/21/19 History [Vitamin B-12] Diclofenac Sodium [Voltaren Gel] 2 gram TOPICAL QID 10/21/19 10/21/19 History HYDROcodone/APAP 5-325MG [[place] 1 tab PO TID PRN 10/21/19 10/21/19 History 5-325] Linagliptin [Tradjenta] 5 mg PO DAILY 10/21/19 10/21/19 History Pravastatin Sodium [Pravachol] 40 mg PO DAILY 10/21/19 10/21/19 History Zolpidem [Ambien] 5 mg PO HS PRN 10/21/19 10/21/19 History glipiZIDE [Glucotrol] 5 mg PO AC-BID 10/21/19 10/21/19 History metFORMIN HCL [metFORMIN HCL ER 500 mg PO BID 05/12/20 05/12/20 History Osmotic] Allergies Allergy/AdvReac Type Severity Reaction Status Date / Time amoxicillin [Amoxicillin] Allergy Nausea & Verified 10/21/19 20:36 Vomiting & Diarrhea morphine Allergy Unknown Verified 10/21/19 20:36 Physical Exam Vitals: Vital Signs Temp Pulse Pulse Resp BP Pulse Ox 10/22/19 12:00 98.8 F 115 H 32 H 94/66 98 10/22/19 11:00 113 H 42 H 100/56 99 10/22/19 10:00 110 H 16 91/74 98 10/22/19 09:00 107 H 32 H 104/77 97 10/22/19 08:00 96.3 F L 115 H 34 H 107/72 97 10/22/19 07:00 116 H 17 94/66 94 L 10/22/19 06:00 115 H 47 H 96/65 98 10/22/19 05:00 117 H 11 L 94/61 97 10/22/19 04:00 100 F H 120 H 11 L 98/70 72 L 10/22/19 03:00 117 H 24 92/80 95 10/22/19 02:50 118 H 33 H 92/80 95 10/22/19 02:40 116 H 46 H 92/80 96 10/22/19 02:30 117 H 43 H 90/71 93 L 10/22/19 02:20 116 H 17 90/71 88 L 10/22/19 02:10 115 H 9 L 90/71 91 L 10/22/19 02:00 113 H 45 H 90/60 84 L 10/22/19 01:50 116 H 44 H 90/60 78 L 10/22/19 01:40 116 H 15 90/60 10/22/19 01:30 115 H 40 H 106/74 10/22/19 01:20 114 H 26 H 106/74 10/22/19 01:10 115 H 27 H 106/74 100 10/22/19 01:00 114 H 45 H 88/67 10/22/19 00:50 117 H 44 H 88/67 10/22/19 00:40 114 H 10 L 88/67 82 L 10/22/19 00:30 115 H 29 H 106/69 10/22/19 00:20 115 H 22 106/69 99 10/22/19 00:10 114 H 29 H 106/69 70 L 10/22/19 00:04 113 H 30 H 106/69 95 10/22/19 00:00 114 H 31 H 92/57 10/21/19 23:50 114 H 8 L 92/57 94 L 10/21/19 23:40 114 H 36 H 92/57 98 10/21/19 23:30 116 H 13 92/76 81 L 10/21/19 23:20 116 H 17 92/76 10/21/19 23:10 113 H 36 H 92/76 97 10/21/19 23:00 110 H 42 H 89/65 96 10/21/19 22:50 98.4 F 112 H 31 H 89/65 96 10/21/19 22:40 113 H 9 L 89/65 97 10/21/19 22:30 111 H 24 91/65 96 10/21/19 22:20 110 H 42 H 91/65 96 10/21/19 22:10 112 H 47 H 91/65 94 L 10/21/19 22:00 109 H 33 H 96/70 97 10/21/19 21:50 105 H 32 H 96/70 96 10/21/19 21:40 121 H 46 H 96/70 91 L 10/21/19 21:30 105 H 35 H 106/71 98 10/21/19 21:20 95.6 F L 105 H 43 H 106/71 97 10/21/19 21:10 107 H 30 H 106/71 98 10/21/19 21:00 103 H 20 105/64 10/21/19 20:50 105 H 13 105/64 10/21/19 20:40 101 H 37 H 105/64 97 10/21/19 20:30 101 H 17 90/53 99 10/21/19 20:20 100 46 H 90/53 98 10/21/19 20:10 100 42 H 90/53 76 L 10/21/19 20:07 95 10/21/19 20:00 96 110 H 41 H 119/78 10/21/19 19:50 98 28 H 119/78 92 L 10/21/19 19:40 96 32 H 119/78 97 10/21/19 19:30 95 30 H 119/78 88 L 10/21/19 19:20 96 36 H 119/78 98 10/21/19 19:10 96 23 111/73 97 10/21/19 18:15 94.9 F L 80 27 H 133/94 94 L 10/21/19 17:38 95 28 H 123/71 94 L 10/21/19 15:58 100 27 H 110/69 96 10/21/19 15:17 98 27 H 115/63 93 L 10/21/19 14:43 101 H 28 H 114/72 96 10/21/19 13:43 97.5 F L 102 H 26 H 85/49 89 L Intake and Output 10/21/19 10/22/19 10/22/19 22:59 06:59 14:59 Intake Total 706.92 8230.094 2980.917 Output Total 755 848 140 Balance -48.08 527.196 8423.917 Intake: IV 600 1200 600 0.45% NaCl with KCl 20 300 1200 600 Meq/l 1,000 ml @ 150 mls/ hr IV .Q6H40M [facility] Rx#: [id number] Levofloxacin 750Mg-D5w 100 Pmx 750 mg In Dextrose/ Water 1 150ml.bag @ 100 mls/hr IVPB ONCE STA Rx#: [id number] Sodium Chloride 0.9% 1, 200 000 ml @ 200 mls/hr IV . Q5H [facility] Rx#:[id number] Intake, IV Titration 106.92 485.996 1085.917 Amount D5-0.45% NaCl with KCl 300 20Meq/l 1,000 ml @ 150 mls/hr IV .Q6H40M [facility] Rx# :[id number] Fluconazole in NaCl,Iso- 50 Osm 100 mg In Saline 1 50ml.bag @ 50 mls/hr IVPB Q24H [facility] Rx#:[id number] Insulin Regular 100 unit 6.92 81.701 30.917 In Sodium Chloride 0.9% 100 ml @ 0.1 UNITS/KG/HR 6.929 mls/hr IV .[id number] [facility] Rx#:[id number] Potassium Chloride 10 meq 300 In Water For Injection 1 100ml.bag @ 100 mls/hr IVPB Q1HR [facility] Rx#: [id number] Potassium Phosphate 10 200 200 mmol In Sodium Chloride 0 .9% 250 ml @ 125 mls/hr IV Q2H [facility] Rx#:[id number] Sodium Chloride 0.9% 2, 2000 000 ml @ 999 mls/hr IV . Q2H1M ONE Rx#:[id number] cefTRIAXone 1 gm In 50 Sodium Chloride 0.9% 50 ml @ 100 mls/hr IVPB Q24H [facility] Rx#:[id number] Output: Urine 755 848 140 Other: Voiding Method Indwelling Catheter Indwelling Catheter Indwelling Catheter Weight 67.5 kg 67.5 kg Results 10/22/19 06:06 10/22/19 09:59 Cardiac Enzymes 10/21/19 10/21/19 10/22/19 Range/Units 14:00 20:28 06:06 AST 143 H (17-59) U/L CK-MB (CK-2) (0.0-2.4) ng/mL Troponin I 0.881 H* 1.600 H* (0.000-0.034) ng/mL 10/22/19 Range/Units 09:59 AST (17-59) U/L CK-MB (CK-2) 7.3 H (0.0-2.4) ng/mL Troponin I 2.250 H* (0.000-0.034) ng/mL Coagulation 10/21/19 Range/Units 14:00 PT 10.1 (9.0-12.0) sec APTT 22.9 (22.0-30.0) sec Lipids 10/22/19 Range/Units 06:06 Triglycerides 512 H (<150) mg/dL Cholesterol 183 (<200) mg/dL HDL Cholesterol 33 L (40-60) mg/dL CBC 10/21/19 10/22/19 Range/Units 14:00 06:06 WBC 11.0 H 15.4 H (3.8-10.6) k/uL RBC 4.23 L 4.93 (4.30-5.90) m/uL Hgb 13.7 16.3 (13.0-17.5) gm/dL Hct 52.5 48.4 (39.0-53.0) % Plt Count 383 248 (150-450) k/uL Comprehensive Metabolic Panel 10/21/19 10/21/19 10/21/19 Range/Units 14:00 16:48 18:30 Sodium 116 L* 129 L 131 L (137-145) mmol/L Potassium 5.7 H 4.3 3.8 (3.5-5.1) mmol/L Chloride 74 L* 96 L 95 L (98-107) mmol/L Carbon Dioxide 8 L* 6 L* 8 L* (22-30) mmol/L BUN 33 H 30 H 30 H (9-20) mg/dL Creatinine 2.18 H 1.91 H 2.10 H (0.66-1.25) mg/dL Glucose >1875 H* 1509 H* 1422 H* (74-99) mg/dL Calcium 7.9 L 8.8 (8.4-10.2) mg/dL AST (17-59) U/L ALT (4-49) U/L Alkaline Phosphatase (38-126) U/L Total Protein (6.3-8.2) g/dL Albumin (3.5-5.0) g/dL 10/21/19 10/21/19 10/22/19 Range/Units 20:28 22:20 02:19 Sodium 139 141 (137-145) mmol/L Potassium 3.4 L 4.9 (3.5-5.1) mmol/L Chloride 101 106 (98-107) mmol/L Carbon Dioxide 17 L 20 L (22-30) mmol/L BUN 31 H 31 H (9-20) mg/dL Creatinine 1.78 H 1.75 H (0.66-1.25) mg/dL Glucose 1230 H* 967 H* 600 H* (74-99) mg/dL Calcium 8.9 9.1 (8.4-10.2) mg/dL AST (17-59) U/L ALT (4-49) U/L Alkaline Phosphatase (38-126) U/L Total Protein (6.3-8.2) g/dL Albumin (3.5-5.0) g/dL 10/22/19 10/22/19 Range/Units 06:06 09:59 Sodium 144 145 (137-145) mmol/L Potassium 4.7 5.0 (3.5-5.1) mmol/L Chloride 109 H 117 H (98-107) mmol/L Carbon Dioxide 19 L 18 L (22-30) mmol/L BUN 32 H 32 H (9-20) mg/dL Creatinine 1.99 H 1.89 H (0.66-1.25) mg/dL Glucose 390 H 230 H (74-99) mg/dL Calcium 8.9 7.9 L (8.4-10.2) mg/dL AST 143 H (17-59) U/L ALT 76 H (4-49) U/L Alkaline Phosphatase 129 H (38-126) U/L Total Protein 6.4 (6.3-8.2) g/dL Albumin 3.4 L (3.5-5.0) g/dL Current Medications Generic Name Dose Route Start Last Admin Trade Name Freq PRN Reason Stop Dose Admin Acetaminophen 650 mg 10/21/19 17:14 Tylenol Tab PO Q6HR PRN Mild Pain or Fever > 100.5 Aspirin 325 mg 10/22/19 09:00 10/22/19 08:44 Aspirin PO 325 mg DAILY [facility] Administration Heparin Sodium (Porcine) 5,000 unit 10/22/19 00:00 10/22/19 08:44 Heparin SQ 5,000 unit Q8HR [facility] Administration Insulin Human Regular 100 unit 101 mls @ 6.929 mls/hr 10/21/19 14:10 10/22/19 12:03 / Sodium Chloride IV 0.06 units/kg/hr .[id number] [facility] 4.5 mls/hr Titration Protocol 0.1 UNITS/KG/HR Fluconazole/Sodium Chloride 50 mls @ 50 mls/hr 10/21/19 22:00 10/21/19 23:20 100 mg/ IV Solution IVPB 50 mls/hr Q24H [facility] Administration Ceftriaxone Sodium 1 gm/ 50 mls @ 100 mls/hr 10/21/19 22:00 10/21/19 22:27 Sodium Chloride IVPB 100 mls/hr Q24H [facility] Administration Potassium Chloride/Dextrose/Sod Cl 1,000 mls @ 150 mls/hr 10/22/19 12:00 10/22/19 11:16 D5%-1/2ns-Kcl 20 Meq/L Iv Solution IV 150 mls/hr .Q6H40M [facility] Administration Miscellaneous Information 1 each 10/21/19 13:40 Magnesium Per Protocol MISCELLANE DAILY PRN Per Protocol Protocol Miscellaneous Information 1 each 10/21/19 17:11 Pneumonia Protocol Utilized PO ONCE PRN Per Protocol Miscellaneous Information 1 each 10/21/19 23:39 Potassium Per Protocol MISCELLANE DAILY PRN Per Protocol Protocol Miscellaneous Information 1 each 10/22/19 04:25 Phosphorus Per Protocol MISCELLANE DAILY PRN Per Protocol Protocol Naloxone HCl 0.2 mg 10/21/19 17:11 Narcan IV Q2M PRN Opioid Reversal Nitroglycerin 0.4 mg 10/21/19 17:13 Nitrostat SUBLINGUAL Q5M PRN Chest Pain Pantoprazole Sodium 40 mg 10/22/19 09:00 10/22/19 08:44 Protonix IV 40 mg DAILY INDU Administration Intake and Output 10/21/19 10/22/19 10/22/19 22:59 06:59 14:59 Intake Total 706.92 0935.785 4343.917 Output Total 755 848 140 Balance -48.08 656.599 8198.917 Intake: IV 600 1200 600 0.45% NaCl with KCl 20 300 1200 600 Meq/l 1,000 ml @ 150 mls/ hr IV .Q6H40M [facility] Rx#: [id number] Levofloxacin 750Mg-D5w 100 Pmx 750 mg In Dextrose/ Water 1 150ml.bag @ 100 mls/hr IVPB ONCE STA Rx#: [id number] Sodium Chloride 0.9% 1, 200 000 ml @ 200 mls/hr IV . Q5H [facility] Rx#:[id number] Intake, IV Titration 106.92 066.710 5497.917 Amount D5-0.45% NaCl with KCl 300 20Meq/l 1,000 ml @ 150 mls/hr IV .Q6H40M [facility] Rx# :[id number] Fluconazole in NaCl,Iso- 50 Osm 100 mg In Saline 1 50ml.bag @ 50 mls/hr IVPB Q24H [facility] Rx#:[id number] Insulin Regular 100 unit 6.92 81.701 30.917 In Sodium Chloride 0.9% 100 ml @ 0.1 UNITS/KG/HR 6.929 mls/hr IV .[id number] [facility] Rx#:[id number] Potassium Chloride 10 meq 300 In Water For Injection 1 100ml.bag @ 100 mls/hr IVPB Q1HR [facility] Rx#: [id number] Potassium Phosphate 10 200 200 mmol In Sodium Chloride 0 .9% 250 ml @ 125 mls/hr IV Q2H [facility] Rx#:[id number] Sodium Chloride 0.9% 2, 2000 000 ml @ 999 mls/hr IV . Q2H1M [facility] Rx#:[id number] cefTRIAXone 1 gm In 50 Sodium Chloride 0.9% 50 ml @ 100 mls/hr IVPB Q24H [facility] Rx#:[id number] Output: Urine 755 848 140 Other: Voiding Method Indwelling Catheter Indwelling Catheter Indwelling Catheter Weight 67.5 kg 67.5 kg 10/22/19 06:06 10/22/19 09:59
[2019-10-22] MEDS: AZITHROMYCIN 500 MG in SODIUM CHLORIDE 0.9% 250 ML IVPB SCH (14:25)
[2019-10-22] MEDS: METOPROLOL TARTRATE 12.5 MG TAB PO SCH ×2 (14:27→22:38)
[2019-10-22 14:43] LABS: Calcium 7.5 mg/dL (8.4-10.2); Potassium 5.7 mmol/L (3.5-5.1)
[2019-10-22 14:55] LABS: Hemoglobin A1C 14.3 % (4.0-6.0)
[2019-10-22 15:06] LABS: Glucose,Whole Blood 193 mg/dL (75-99)
[2019-10-22 16:14] LABS: Glucose,Whole Blood 188 mg/dL (75-99)
[2019-10-22 17:02] LABS: Glucose,Whole Blood 178 mg/dL (75-99)
[2019-10-22] MEDS: DEXTROSE 5%-0.45% NACL 1,000 ML IV SCH (17:05)
[2019-10-22] MEDS ORDERED: LEVOFLOXACIN 750 MG TAB PO SCH (18:00)
[2019-10-22 18:13] LABS: Glucose,Whole Blood 315 mg/dL (75-99)
[2019-10-22] MEDS ORDERED: SODIUM CHLORIDE 0.9% 1,000 ML IV ONE ×2 (18:23→22:09)
[2019-10-22 18:27] LABS: Calcium 7.4 mg/dL (8.4-10.2); Potassium 5.9 mmol/L (3.5-5.1)
[2019-10-22 19:10] LABS: Glucose,Whole Blood 334 mg/dL (75-99)
[2019-10-22] MEDS ORDERED: NOREPINEPHRIN 4 MG-0.9% NS PMX 4 MG/250 ML ML IV ONE (19:51)
[2019-10-22] MEDS: NOREPINEPHRINE 4 MG in SODIUM CHLORIDE 0.9% 250 ML IV SCH (20:05)
[2019-10-22] MEDS ORDERED: FUROSEMIDE 10 MG/ML 10 ML VIAL IV STA (20:10)
--- NOTE | 2019-10-22 20:15 | XR ---
EXAMINATION TYPE: XR chest 1V DATE OF EXAM: 10/22/2019 COMPARISON: Today HISTORY: Check tube placement TECHNIQUE: FINDINGS: There is nasogastric tube in the stomach and the tip is in the distal stomach. There is kal e infiltrate and atelectasis right lung base. There is no heart failure. There is elevated right diap hragm. There are chest leads. There is no heart failure. Heart size is normal. IMPRESSION: There is new infiltrate and atelectasis right lung base compared to exam this morning.
[2019-10-22] MEDS ORDERED: ETOMIDATE 2 MG/ML 10 ML VIAL ONE (20:45)
[2019-10-22] MEDS ORDERED: ROCURONIUM BROMIDE 10 MG/ML 5 ML VIAL IV ONE (20:45)
[2019-10-22] MEDS ORDERED: PHENYLEPHRINE 10 MG/ML VIAL ONE (20:45)
[2019-10-22 20:52] LABS: Glucose,Whole Blood 345 mg/dL (75-99)
[2019-10-22] MEDS: PIPERACILLIN-TAZOBACTAM 3.375 GM in SODIUM CHLORIDE 0.9% 100 ML IVPB SCH (21:06)
--- NOTE | 2019-10-22 21:06 | XR ---
EXAMINATION TYPE: XR chest 1V DATE OF EXAM: 10/22/2019 COMPARISON: Today HISTORY: Check tube placement TECHNIQUE: FINDINGS: There is nasogastric tube in the stomach. There is endotracheal tube with the tip 5 cm from the akbar. There is some mild atelectasis at the lung bases. There is no heart failure. Heart size is normal. IMPRESSION: Mild atelectasis at the lung bases improved compared to exam one hour ago.
[2019-10-22 21:17] LABS: ABG Base Excess -14.5 mmol/L; ABG HCO3 13 mmol/L (21-25); ABG PCO2 27 mmHg (35-45); ABG PH 7.27 (7.35-7.45); ABG PO2 101 mmHg (83-108); ABG TCO2 13 mmol/L (19-24)
[2019-10-22 21:24] LABS: Allen Test Performed? no
--- NOTE | 2019-10-22 22:11 | CT ---
EXAMINATION TYPE: CT abdomen pelvis wo con DATE OF EXAM: 10/22/2019 COMPARISON: 07/27/2018 HISTORY: ABDOMINAL DISTENTION CT DLP: 761.1 mGycm Automated exposure control for dose reduction was used. There is some infiltrate and atelectasis at the posterior lung bases. Heart size is normal. There is no pericardial effusion. There is diffuse fatty infiltration of the liver. Spleen is intact. There is no pancreatic mass. There are multiple calcified gallstones. The bile ducts are not dilated. There i s no adrenal mass. There are multiple cortical cysts in both kidneys that measure up to 3 cm. There i s no hydronephrosis. Ureters are not dilated. There is aorto iliac endograft. There is fusiform 4.4 c m lower abdominal aortic aneurysm. There is no retroperitoneal adenopathy. There is mild fat strandin g in the paracolic gutters and mild free fluid. There is some free fluid in the pelvis. There is Fole y catheter in the urinary bladder. There is no inguinal hernia. There is left hip prosthesis. There are multiple diverticula of the sigmoid colon. There are multiple mildly dilated air and fluid- filled loops of small bowel. Small bowel is dilated up to 4 cm. There is mild wall thickening of the ascending colon. There is minimal fat stranding around the sigmoid colon. The lumbar vertebra have no rmal alignment. There is disc space narrowing. There is no compression fracture. Bony pelvis is intac t. There is osteoarthritis in the right hip joint. IMPRESSION: Dilated multiple loops of small bowel suggestive of ileus or partial mechanical obstruction that is a change compared to old exam. Lower abdominal aortic aneurysm unchanged. There is free fluid in the paracolic gutters and in the pelvis that is a change compared to old exam. There is evidence for some mild sigmoid diverticulitis. No definite abscess seen. Inflammatory butler es are new compared to old exam. There is bilateral lower lobe pulmonary infiltrates and atelectasis significantly increased compared to old exam.
[2019-10-22 22:18] LABS: Glucose,Whole Blood 363 mg/dL (75-99)
[2019-10-22] MEDS: PROPOFOL 1,000 MG in EMPTY BAG 1 BAG IV SCH (22:36)
[2019-10-22 23:06] LABS: HCT 39.1 % (39.0-53.0); MCH 33.6 pg (25.0-35.0); MCHC 33.3 g/dL (31.0-37.0); MCV 100.9 fL (80.0-100.0); Macrocytosis Slight; Mean Platelet Volume 10.2; RBC 3.87 m/uL (4.30-5.90)
[2019-10-22 23:09] LABS: Platelet Count 118 k/uL (150-450)
[2019-10-22 23:46] LABS: Albumin 2.4 g/dL (3.5-5.0); Band Neutrophils % 77 %; Calcium 6.9 mg/dL (8.4-10.2); Lymphocytes # (M) 0.27 k/uL (1.0-4.8); Metamyelocytes # (M) 0.27 k/uL (0); Metamyelocytes % 2 %; Monocytes # (M) 0.27 k/uL (0-1.0); Neutrophils % (M) 17 %; Nucleated Red Blood Cells 2 /100 WBC (0-0); Total Bilirubin 0.5 mg/dL (0.2-1.3); Total Cells Counted 200; Total Protein 4.9 g/dL (6.3-8.2)
[2019-10-22 23:47] LABS: WBC 13.3 k/uL (3.8-10.6)
[2019-10-22 23:48] LABS: Toxic Granulation Present; Toxic Vacuolation Present
[2019-10-22 23:53] LABS: Glucose,Whole Blood 381 mg/dL (75-99)
[2019-10-22 23:59] LABS: Potassium 6.2 mmol/L (3.5-5.1)
[2019-10-23] MEDS ORDERED: SODIUM BICARB 8.4% 50 ML SYR (1 MEQ/ML) IV STA ×3 (00:30→20:48)
[2019-10-23] MEDS: DEXTROSE 5%-0.45% NACL 1,000 ML IV SCH ×2 (00:47→08:07)
[2019-10-23 00:59] LABS: Glucose,Whole Blood 344 mg/dL (75-99)
[2019-10-23] MEDS: PROPOFOL 1,000 MG in EMPTY BAG 1 BAG IV SCH ×4 (00:59→12:49)
[2019-10-23] MEDS: NOREPINEPHRINE 4 MG in SODIUM CHLORIDE 0.9% 250 ML IV SCH ×3 (01:00→05:46)
[2019-10-23 02:01] LABS: Glucose,Whole Blood 328 mg/dL (75-99)
[2019-10-23] MEDS: ACETAMINOPHEN IV (For NPO) 1,000 MG in EMPTY BAG 1 BAG IVPB PRN ×2 (02:17→14:10)
[2019-10-23 03:03] LABS: Glucose,Whole Blood 290 mg/dL (75-99)
[2019-10-23 03:24] LABS: HCT 38.3 % (39.0-53.0); HGB 13.1 gm/dL (13.0-17.5); MCH 34.1 pg (25.0-35.0); MCHC 34.3 g/dL (31.0-37.0); MCV 99.6 fL (80.0-100.0); Macrocytosis Slight; Mean Platelet Volume 10.4; Platelet Count 110 k/uL (150-450); RBC 3.84 m/uL (4.30-5.90); WBC 11.7 k/uL (3.8-10.6)
[2019-10-23 03:30] LABS: Albumin 2.2 g/dL (3.5-5.0); Calcium 6.7 mg/dL (8.4-10.2); Potassium 4.7 mmol/L (3.5-5.1); Total Bilirubin 0.4 mg/dL (0.2-1.3); Total Protein 4.6 g/dL (6.3-8.2)
[2019-10-23] MEDS: PIPERACILLIN-TAZOBACTAM 3.375 GM in SODIUM CHLORIDE 0.9% 100 ML IVPB SCH ×3 (03:46→20:01)
[2019-10-23 04:09] LABS: Glucose,Whole Blood 249 mg/dL (75-99)
[2019-10-23 04:23] LABS: Band Neutrophils % 72 %; Lymphocytes # (M) 0.94 k/uL (1.0-4.8); Metamyelocytes # (M) 1.05 k/uL (0); Metamyelocytes % 9 %; Monocytes # (M) 0.23 k/uL (0-1.0); Neutrophils % (M) 9 %; Nucleated Red Blood Cells 0 /100 WBC (0-0); Total Cells Counted 200; Toxic Granulation Present; Toxic Vacuolation Present
[2019-10-23 05:02] LABS: ABG Base Excess -9.2 mmol/L; ABG HCO3 16 mmol/L (21-25); ABG Oxygen Saturation 99.9 % (94-97); ABG PCO2 26 mmHg (35-45); ABG PH 7.39 (7.35-7.45); ABG PO2 185 mmHg (83-108); ABG TCO2 17 mmol/L (19-24)
[2019-10-23 05:09] LABS: Glucose,Whole Blood 236 mg/dL (75-99)
[2019-10-23 05:09] LABS: Allen Test Performed? no
[2019-10-23] MEDS: INSULIN REGULAR 100 UNIT in SODIUM CHLORIDE 0.9% 100 ML IV SCH ×2 (05:34→13:34)
[2019-10-23 06:06] LABS: Glucose,Whole Blood 341 mg/dL (75-99)
[2019-10-23 07:11] LABS: Glucose,Whole Blood 204 mg/dL (75-99)
[2019-10-23 07:13] LABS: Glucose,Whole Blood 198 mg/dL (75-99)
--- NOTE | 2019-10-23 07:44 | XR ---
EXAMINATION TYPE: XR chest 1V portable DATE OF EXAM: 10/23/2019 COMPARISON: Prior chest x-ray dated 10/22/2019 HISTORY: Intubated TECHNIQUE: Single frontal view of the chest is obtained. FINDINGS: Endotracheal tube and NG tube are overlying appropriate positions. There is been interval development of airspace disease at the right lung base, the right hemidiaphragm is obscured. There is no evident pneumothorax. There are overlying cardiac leads. Aorta is dense. Heart size is stable. Pr ominent pulmonary artery could be indicative of pulmonary artery hypertension. There are overlying ca rdiac leads. IMPRESSION: Correlate for possible basilar pneumonia versus atelectasis. Follow-up recommended.
[2019-10-23] MEDS: SODIUM CHLORIDE 0.9% 1,000 ML IV SCH ×2 (08:07→17:25)
[2019-10-23 08:11] LABS: Glucose,Whole Blood 167 mg/dL (75-99)
[2019-10-23] MEDS: HEPARIN SODIUM,PORCINE 5,000 UNIT/ML 1 ML VIAL SQ SCH ×2 (08:25→16:48)
[2019-10-23] MEDS: AZITHROMYCIN 500 MG in SODIUM CHLORIDE 0.9% 250 ML IVPB SCH (09:38)
[2019-10-23] MEDS: ASPIRIN 81 MG PO SCH (09:43)
[2019-10-23] MEDS: CHLORHEXIDINE GLUCONATE 15 ML CUP MUCOUS MEM SCH ×2 (09:46→20:01)
[2019-10-23] MEDS: PRAVASTATIN SODIUM 40 MG TAB PO SCH (09:47)
[2019-10-23] MEDS: PANTOPRAZOLE 40 MG/10 ML VIAL IV SCH (09:47)
--- NOTE | 2019-10-23 09:54 | XR ---
EXAMINATION TYPE: XR chest 1V portable DATE OF EXAM: 10/23/2019 COMPARISON: Prior chest 10/23/2019 HISTORY: Status post central venous catheter placement TECHNIQUE: Single frontal view of the chest is obtained. FINDINGS: There is been interval placement of a left subclavian central venous catheter, distal tip is overlying the cavoatrial junction. Interval improved aeration in the right lung base, the right he midiaphragm is now better seen. No evident pneumothorax. IMPRESSION: No evident complication status post central venous catheter placement.
[2019-10-23 10:07] LABS: Glucose,Whole Blood 119 mg/dL (75-99)
[2019-10-23] MEDS: NOREPINEPHRINE 32 MG in SODIUM CHLORIDE 0.9% 218 ML IV SCH (10:15)
[2019-10-23 11:05] LABS: Glucose,Whole Blood 97 mg/dL (75-99)
[2019-10-23] MEDS: MIDAZOLAM HCL 50 MG in SODIUM CHLORIDE 0.9% 40 ML IV SCH (11:08)
--- NOTE | 2019-10-23 11:24 | P.PN ---
Subjective Patient is seen in follow-up for acute kidney injury. Patient became hypotensive last night and was started on Levophed. Renal function worsened. He was also quite tachypneic and more restless last night and was subsequently intubated. He is currently on 60% FiO2. Nonoliguric. He is also on 30 mics of Levophed. Vital signs are stable. Currently on Levophed. General: The patient appeared well nourished and normally developed. HEENT: Head exam is unremarkable. Neck is without jugular venous distension.intubated. LUNGS: Lungs are clear to auscultation and percussion. Breath sounds decreased. HEART: Rate and Rhythm are regular. ABDOMEN: Soft. Distention noted. EXTREMITITES: No clubbing, cyanosis, or edema. Objective - Vital Signs Vital signs: Vital Signs Temp 100.3 F H 10/23/19 08:00 Pulse 107 H 10/23/19 11:00 Resp 33 H 10/23/19 11:00 BP 96/68 10/23/19 09:00 Pulse Ox 99 10/23/19 11:00 Intake & Output 10/22/19 10/23/19 10/23/19 18:59 06:59 18:59 Intake Total 5050.506 3346.114 708.244 Output Total 255 2817 830 Balance 4795.506 529.114 -121.756 Weight 75.2 kg Intake: IV 600 2350 600 0.45% NaCl with KCl 20 600 Meq/l 1,000 ml @ 150 mls/ hr IV .Q6H40M [facility] Rx#: [id number] ACETAMINOPHEN IV (For NPO 100 ) 1,000 mg In Empty Bag 1 bag @ 400 mls/hr IVPB Q6H PRN Rx#:[id number] Dextrose 5%-0.45% NaCl 1, 1050 150 000 ml @ 150 mls/hr IV . Q6H40M [facility] Rx#:[id number] Piperacillin-Tazobactam 3 200 .375 gm In Sodium Chloride 0.9% 100 ml @ 25 mls/hr IVPB Q8H [facility] Rx#: [id number] Sodium Chloride 0.9% 1, 1000 450 000 ml @ 999 mls/hr IV . Q1H1M [facility] Rx#:[id number] Intake, IV Titration 4450.506 996.114 108.244 Amount D5-0.45% NaCl with KCl 300 20Meq/l 1,000 ml @ 150 mls/hr IV .Q6H40M [facility] Rx# :[id number] Dextrose 5%-0.45% NaCl 1, 900 150 000 ml @ 150 mls/hr IV . Q6H40M [facility] Rx#:[id number] Insulin Regular 100 unit 50.506 68.697 17.024 In Sodium Chloride 0.9% 100 ml @ 0.1 UNITS/KG/HR 6.929 mls/hr IV .[id number] [facility] Rx#:[id number] Norepinephrine 32 mg In 13.865 Sodium Chloride 0.9% 218 ml @ 0.42 MCG/KG/MIN 14. 805 mls/hr IV .[id number] [facility] Rx#:[id number] Norepinephrine 4 mg In 637.794 Sodium Chloride 0.9% 250 ml @ 0.05 MCG/KG/MIN 12. 859 mls/hr IV .[id number] [facility] Rx#:[id number] Potassium Phosphate 10 200 mmol In Sodium Chloride 0 .9% 250 ml @ 125 mls/hr IV Q2H [facility] Rx#:[id number] Propofol 1,000 mg In 139.623 77.355 Empty Bag 1 bag @ Titrate IV .Q0M [facility] Rx#: [id number] Sodium Chloride 0.9% 1, 1000 000 ml @ 999 mls/hr IV . Q1H1M [facility] Rx#:[id number] Sodium Chloride 0.9% 2, 2000 000 ml @ 999 mls/hr IV . Q2H1M [facility] Rx#:[id number] Output: Gastric Drainage 1300 100 Urine 255 1367 730 Emesis 150 Other: Voiding Method Indwelling Catheter Indwelling Catheter ABP, PAP, CO, CI - Last Documented Arterial Blood Pressure 76/43 - Labs CBC & Chem 7: 10/23/19 03:00 10/23/19 03:00 Labs: Abnormal Lab Results - Last 24 Hours (Table) 10/21/19 10/21/19 10/22/19 Range/Units 18:30 22:20 09:59 WBC (3.8-10.6) k/uL RBC (4.30-5.90) m/uL Hct (39.0-53.0) % MCV (80.0-100.0) fL Plt Count (150-450) k/uL Neutrophils # (Manual) (1.3-7.7) k/uL Lymphocytes # (Manual) (1.0-4.8) k/uL Metamyelocytes # (Man) (0) k/uL Nucleated RBCs (0-0) /100 WBC ABG pH (7.35-7.45) ABG pCO2 (35-45) mmHg ABG pO2 (83-108) mmHg ABG HCO3 (21-25) mmol/L ABG Total CO2 (19-24) mmol/L ABG O2 Saturation (94-97) % Potassium (3.5-5.1) mmol/L Chloride (98-107) mmol/L Carbon Dioxide (22-30) mmol/L BUN (9-20) mg/dL Creatinine (0.66-1.25) mg/dL Glucose 1422 H* (74-99) mg/dL POC Glucose (mg/dL) (75-99) mg/dL Hemoglobin A1c 14.3 H (4.0-6.0) % Plasma Lactic Acid Fredrick (0.7-2.0) mmol/L Calcium (8.4-10.2) mg/dL AST (17-59) U/L ALT (4-49) U/L Total Creatine Kinase 191 H (55-170) U/L CK-MB (CK-2) 7.3 H (0.0-2.4) ng/mL Troponin I 2.250 H* (0.000-0.034) ng/mL Total Protein (6.3-8.2) g/dL Albumin (3.5-5.0) g/dL 10/22/19 10/22/19 10/22/19 Range/Units 12:00 13:20 14:03 WBC (3.8-10.6) k/uL RBC (4.30-5.90) m/uL Hct (39.0-53.0) % MCV (80.0-100.0) fL Plt Count (150-450) k/uL Neutrophils # (Manual) (1.3-7.7) k/uL Lymphocytes # (Manual) (1.0-4.8) k/uL Metamyelocytes # (Man) (0) k/uL Nucleated RBCs (0-0) /100 WBC ABG pH (7.35-7.45) ABG pCO2 (35-45) mmHg ABG pO2 (83-108) mmHg ABG HCO3 (21-25) mmol/L ABG Total CO2 (19-24) mmol/L ABG O2 Saturation (94-97) % Potassium (3.5-5.1) mmol/L Chloride (98-107) mmol/L Carbon Dioxide (22-30) mmol/L BUN (9-20) mg/dL Creatinine (0.66-1.25) mg/dL Glucose (74-99) mg/dL POC Glucose (mg/dL) 375 H 278 H 236 H (75-99) mg/dL Hemoglobin A1c (4.0-6.0) % Plasma Lactic Acid Fredrick (0.7-2.0) mmol/L Calcium (8.4-10.2) mg/dL AST (17-59) U/L ALT (4-49) U/L Total Creatine Kinase (55-170) U/L CK-MB (CK-2) (0.0-2.4) ng/mL Troponin I (0.000-0.034) ng/mL Total Protein (6.3-8.2) g/dL Albumin (3.5-5.0) g/dL 10/22/19 10/22/19 10/22/19 Range/Units 14:21 14:21 15:04 WBC (3.8-10.6) k/uL RBC (4.30-5.90) m/uL Hct (39.0-53.0) % MCV (80.0-100.0) fL Plt Count (150-450) k/uL Neutrophils # (Manual) (1.3-7.7) k/uL Lymphocytes # (Manual) (1.0-4.8) k/uL Metamyelocytes # (Man) (0) k/uL Nucleated RBCs (0-0) /100 WBC ABG pH (7.35-7.45) ABG pCO2 (35-45) mmHg ABG pO2 (83-108) mmHg ABG HCO3 (21-25) mmol/L ABG Total CO2 (19-24) mmol/L ABG O2 Saturation (94-97) % Potassium 5.7 H (3.5-5.1) mmol/L Chloride 115 H (98-107) mmol/L Carbon Dioxide 21 L (22-30) mmol/L BUN 35 H (9-20) mg/dL Creatinine 2.04 H (0.66-1.25) mg/dL Glucose 173 H (74-99) mg/dL POC Glucose (mg/dL) 193 H (75-99) mg/dL Hemoglobin A1c (4.0-6.0) % Plasma Lactic Acid Fredrick 4.0 H* (0.7-2.0) mmol/L Calcium 7.5 L (8.4-10.2) mg/dL AST (17-59) U/L ALT (4-49) U/L Total Creatine Kinase (55-170) U/L CK-MB (CK-2) (0.0-2.4) ng/mL Troponin I (0.000-0.034) ng/mL Total Protein (6.3-8.2) g/dL Albumin (3.5-5.0) g/dL 10/22/19 10/22/19 10/22/19 Range/Units 16:12 17:01 18:05 WBC (3.8-10.6) k/uL RBC (4.30-5.90) m/uL Hct (39.0-53.0) % MCV (80.0-100.0) fL Plt Count (150-450) k/uL Neutrophils # (Manual) (1.3-7.7) k/uL Lymphocytes # (Manual) (1.0-4.8) k/uL Metamyelocytes # (Man) (0) k/uL Nucleated RBCs (0-0) /100 WBC ABG pH (7.35-7.45) ABG pCO2 (35-45) mmHg ABG pO2 (83-108) mmHg ABG HCO3 (21-25) mmol/L ABG Total CO2 (19-24) mmol/L ABG O2 Saturation (94-97) % Potassium 5.9 H (3.5-5.1) mmol/L Chloride 115 H (98-107) mmol/L Carbon Dioxide 21 L (22-30) mmol/L BUN 36 H (9-20) mg/dL Creatinine 2.41 H (0.66-1.25) mg/dL Glucose 288 H (74-99) mg/dL POC Glucose (mg/dL) 188 H 178 H (75-99) mg/dL Hemoglobin A1c (4.0-6.0) % Plasma Lactic Acid Fredrick (0.7-2.0) mmol/L Calcium 7.4 L (8.4-10.2) mg/dL AST (17-59) U/L ALT (4-49) U/L Total Creatine Kinase (55-170) U/L CK-MB (CK-2) (0.0-2.4) ng/mL Troponin I (0.000-0.034) ng/mL Total Protein (6.3-8.2) g/dL Albumin (3.5-5.0) g/dL 10/22/19 10/22/19 10/22/19 Range/Units 18:05 18:12 19:09 WBC (3.8-10.6) k/uL RBC (4.30-5.90) m/uL Hct (39.0-53.0) % MCV (80.0-100.0) fL Plt Count (150-450) k/uL Neutrophils # (Manual) (1.3-7.7) k/uL Lymphocytes # (Manual) (1.0-4.8) k/uL Metamyelocytes # (Man) (0) k/uL Nucleated RBCs (0-0) /100 WBC ABG pH (7.35-7.45) ABG pCO2 (35-45) mmHg ABG pO2 (83-108) mmHg ABG HCO3 (21-25) mmol/L ABG Total CO2 (19-24) mmol/L ABG O2 Saturation (94-97) % Potassium (3.5-5.1) mmol/L Chloride (98-107) mmol/L Carbon Dioxide (22-30) mmol/L BUN (9-20) mg/dL Creatinine (0.66-1.25) mg/dL Glucose (74-99) mg/dL POC Glucose (mg/dL) 315 H 334 H (75-99) mg/dL Hemoglobin A1c (4.0-6.0) % Plasma Lactic Acid Fredrick 3.2 H* (0.7-2.0) mmol/L Calcium (8.4-10.2) mg/dL AST (17-59) U/L ALT (4-49) U/L Total Creatine Kinase (55-170) U/L CK-MB (CK-2) (0.0-2.4) ng/mL Troponin I (0.000-0.034) ng/mL Total Protein (6.3-8.2) g/dL Albumin (3.5-5.0) g/dL 10/22/19 10/22/19 10/22/19 Range/Units 20:50 21:15 22:15 WBC (3.8-10.6) k/uL RBC (4.30-5.90) m/uL Hct (39.0-53.0) % MCV (80.0-100.0) fL Plt Count (150-450) k/uL Neutrophils # (Manual) (1.3-7.7) k/uL Lymphocytes # (Manual) (1.0-4.8) k/uL Metamyelocytes # (Man) (0) k/uL Nucleated RBCs (0-0) /100 WBC ABG pH 7.27 L (7.35-7.45) ABG pCO2 27 L (35-45) mmHg ABG pO2 (83-108) mmHg ABG HCO3 13 L (21-25) mmol/L ABG Total CO2 13 L (19-24) mmol/L ABG O2 Saturation (94-97) % Potassium (3.5-5.1) mmol/L Chloride (98-107) mmol/L Carbon Dioxide (22-30) mmol/L BUN (9-20) mg/dL Creatinine (0.66-1.25) mg/dL Glucose (74-99) mg/dL POC Glucose (mg/dL) 345 H (75-99) mg/dL Hemoglobin A1c (4.0-6.0) % Plasma Lactic Acid Fredrick 3.6 H* (0.7-2.0) mmol/L Calcium (8.4-10.2) mg/dL AST (17-59) U/L ALT (4-49) U/L Total Creatine Kinase (55-170) U/L CK-MB (CK-2) (0.0-2.4) ng/mL Troponin I (0.000-0.034) ng/mL Total Protein (6.3-8.2) g/dL Albumin (3.5-5.0) g/dL 10/22/19 10/22/19 10/22/19 Range/Units 22:15 22:15 22:17 WBC 13.3 H (3.8-10.6) k/uL RBC 3.87 L (4.30-5.90) m/uL Hct (39.0-53.0) % MCV 100.9 H (80.0-100.0) fL Plt Count 118 L D (150-450) k/uL Neutrophils # (Manual) 12.50 H (1.3-7.7) k/uL Lymphocytes # (Manual) 0.27 L (1.0-4.8) k/uL Metamyelocytes # (Man) 0.27 H (0) k/uL Nucleated RBCs 2 H (0-0) /100 WBC ABG pH (7.35-7.45) ABG pCO2 (35-45) mmHg ABG pO2 (83-108) mmHg ABG HCO3 (21-25) mmol/L ABG Total CO2 (19-24) mmol/L ABG O2 Saturation (94-97) % Potassium 6.2 H* (3.5-5.1) mmol/L Chloride 118 H (98-107) mmol/L Carbon Dioxide 13 L (22-30) mmol/L BUN 39 H (9-20) mg/dL Creatinine 2.72 H (0.66-1.25) mg/dL Glucose 368 H (74-99) mg/dL POC Glucose (mg/dL) 363 H (75-99) mg/dL Hemoglobin A1c (4.0-6.0) % Plasma Lactic Acid Fredrick (0.7-2.0) mmol/L Calcium 6.9 L (8.4-10.2) mg/dL AST 3665 H (17-59) U/L ALT 1334 H (4-49) U/L Total Creatine Kinase (55-170) U/L CK-MB (CK-2) (0.0-2.4) ng/mL Troponin I (0.000-0.034) ng/mL Total Protein 4.9 L (6.3-8.2) g/dL Albumin 2.4 L (3.5-5.0) g/dL 10/22/19 10/23/19 10/23/19 Range/Units 23:52 00:58 02:00 WBC (3.8-10.6) k/uL RBC (4.30-5.90) m/uL Hct (39.0-53.0) % MCV (80.0-100.0) fL Plt Count (150-450) k/uL Neutrophils # (Manual) (1.3-7.7) k/uL Lymphocytes # (Manual) (1.0-4.8) k/uL Metamyelocytes # (Man) (0) k/uL Nucleated RBCs (0-0) /100 WBC ABG pH (7.35-7.45) ABG pCO2 (35-45) mmHg ABG pO2 (83-108) mmHg ABG HCO3 (21-25) mmol/L ABG Total CO2 (19-24) mmol/L ABG O2 Saturation (94-97) % Potassium (3.5-5.1) mmol/L Chloride (98-107) mmol/L Carbon Dioxide (22-30) mmol/L BUN (9-20) mg/dL Creatinine (0.66-1.25) mg/dL Glucose (74-99) mg/dL POC Glucose (mg/dL) 381 H 344 H 328 H (75-99) mg/dL Hemoglobin A1c (4.0-6.0) % Plasma Lactic Acid Fredrick (0.7-2.0) mmol/L Calcium (8.4-10.2) mg/dL AST (17-59) U/L ALT (4-49) U/L Total Creatine Kinase (55-170) U/L CK-MB (CK-2) (0.0-2.4) ng/mL Troponin I (0.000-0.034) ng/mL Total Protein (6.3-8.2) g/dL Albumin (3.5-5.0) g/dL 10/23/19 10/23/19 10/23/19 Range/Units 03:00 03:00 03:00 WBC 11.7 H (3.8-10.6) k/uL RBC 3.84 L (4.30-5.90) m/uL Hct 38.3 L (39.0-53.0) % MCV (80.0-100.0) fL Plt Count 110 L (150-450) k/uL Neutrophils # (Manual) 9.40 H (1.3-7.7) k/uL Lymphocytes # (Manual) 0.94 L (1.0-4.8) k/uL Metamyelocytes # (Man) 1.05 H (0) k/uL Nucleated RBCs (0-0) /100 WBC ABG pH (7.35-7.45) ABG pCO2 (35-45) mmHg ABG pO2 (83-108) mmHg ABG HCO3 (21-25) mmol/L ABG Total CO2 (19-24) mmol/L ABG O2 Saturation (94-97) % Potassium (3.5-5.1) mmol/L Chloride 116 H (98-107) mmol/L Carbon Dioxide 16 L (22-30) mmol/L BUN 40 H (9-20) mg/dL Creatinine 2.58 H (0.66-1.25) mg/dL Glucose 287 H (74-99) mg/dL POC Glucose (mg/dL) (75-99) mg/dL Hemoglobin A1c (4.0-6.0) % Plasma Lactic Acid Fredrick 3.7 H* (0.7-2.0) mmol/L Calcium 6.7 L (8.4-10.2) mg/dL AST 3453 H (17-59) U/L ALT 1264 H (4-49) U/L Total Creatine Kinase (55-170) U/L CK-MB (CK-2) (0.0-2.4) ng/mL Troponin I (0.000-0.034) ng/mL Total Protein 4.6 L (6.3-8.2) g/dL Albumin 2.2 L (3.5-5.0) g/dL 10/23/19 10/23/19 10/23/19 Range/Units 03:02 04:08 05:01 WBC (3.8-10.6) k/uL RBC (4.30-5.90) m/uL Hct (39.0-53.0) % MCV (80.0-100.0) fL Plt Count (150-450) k/uL Neutrophils # (Manual) (1.3-7.7) k/uL Lymphocytes # (Manual) (1.0-4.8) k/uL Metamyelocytes # (Man) (0) k/uL Nucleated RBCs (0-0) /100 WBC ABG pH (7.35-7.45) ABG pCO2 26 L (35-45) mmHg ABG pO2 185 H (83-108) mmHg ABG HCO3 16 L (21-25) mmol/L ABG Total CO2 17 L (19-24) mmol/L ABG O2 Saturation 99.9 H (94-97) % Potassium (3.5-5.1) mmol/L Chloride (98-107) mmol/L Carbon Dioxide (22-30) mmol/L BUN (9-20) mg/dL Creatinine (0.66-1.25) mg/dL Glucose (74-99) mg/dL POC Glucose (mg/dL) 290 H 249 H (75-99) mg/dL Hemoglobin A1c (4.0-6.0) % Plasma Lactic Acid Fredrick (0.7-2.0) mmol/L Calcium (8.4-10.2) mg/dL AST (17-59) U/L ALT (4-49) U/L Total Creatine Kinase (55-170) U/L CK-MB (CK-2) (0.0-2.4) ng/mL Troponin I (0.000-0.034) ng/mL Total Protein (6.3-8.2) g/dL Albumin (3.5-5.0) g/dL 10/23/19 10/23/19 10/23/19 Range/Units 05:07 06:05 07:10 WBC (3.8-10.6) k/uL RBC (4.30-5.90) m/uL Hct (39.0-53.0) % MCV (80.0-100.0) fL Plt Count (150-450) k/uL Neutrophils # (Manual) (1.3-7.7) k/uL Lymphocytes # (Manual) (1.0-4.8) k/uL Metamyelocytes # (Man) (0) k/uL Nucleated RBCs (0-0) /100 WBC ABG pH (7.35-7.45) ABG pCO2 (35-45) mmHg ABG pO2 (83-108) mmHg ABG HCO3 (21-25) mmol/L ABG Total CO2 (19-24) mmol/L ABG O2 Saturation (94-97) % Potassium (3.5-5.1) mmol/L Chloride (98-107) mmol/L Carbon Dioxide (22-30) mmol/L BUN (9-20) mg/dL Creatinine (0.66-1.25) mg/dL Glucose (74-99) mg/dL POC Glucose (mg/dL) 236 H 341 H 204 H (75-99) mg/dL Hemoglobin A1c (4.0-6.0) % Plasma Lactic Acid Fredrick (0.7-2.0) mmol/L Calcium (8.4-10.2) mg/dL AST (17-59) U/L ALT (4-49) U/L Total Creatine Kinase (55-170) U/L CK-MB (CK-2) (0.0-2.4) ng/mL Troponin I (0.000-0.034) ng/mL Total Protein (6.3-8.2) g/dL Albumin (3.5-5.0) g/dL 10/23/19 10/23/19 10/23/19 Range/Units 07:12 07:29 08:00 WBC (3.8-10.6) k/uL RBC (4.30-5.90) m/uL Hct (39.0-53.0) % MCV (80.0-100.0) fL Plt Count (150-450) k/uL Neutrophils # (Manual) (1.3-7.7) k/uL Lymphocytes # (Manual) (1.0-4.8) k/uL Metamyelocytes # (Man) (0) k/uL Nucleated RBCs (0-0) /100 WBC ABG pH (7.35-7.45) ABG pCO2 (35-45) mmHg ABG pO2 (83-108) mmHg ABG HCO3 (21-25) mmol/L ABG Total CO2 (19-24) mmol/L ABG O2 Saturation (94-97) % Potassium (3.5-5.1) mmol/L Chloride (98-107) mmol/L Carbon Dioxide (22-30) mmol/L BUN (9-20) mg/dL Creatinine (0.66-1.25) mg/dL Glucose (74-99) mg/dL POC Glucose (mg/dL) 198 H 167 H (75-99) mg/dL Hemoglobin A1c (4.0-6.0) % Plasma Lactic Acid Fredrick 4.8 H* (0.7-2.0) mmol/L Calcium (8.4-10.2) mg/dL AST (17-59) U/L ALT (4-49) U/L Total Creatine Kinase (55-170) U/L CK-MB (CK-2) (0.0-2.4) ng/mL Troponin I (0.000-0.034) ng/mL Total Protein (6.3-8.2) g/dL Albumin (3.5-5.0) g/dL 10/23/19 Range/Units 09:46 WBC (3.8-10.6) k/uL RBC (4.30-5.90) m/uL Hct (39.0-53.0) % MCV (80.0-100.0) fL Plt Count (150-450) k/uL Neutrophils # (Manual) (1.3-7.7) k/uL Lymphocytes # (Manual) (1.0-4.8) k/uL Metamyelocytes # (Man) (0) k/uL Nucleated RBCs (0-0) /100 WBC ABG pH (7.35-7.45) ABG pCO2 (35-45) mmHg ABG pO2 (83-108) mmHg ABG HCO3 (21-25) mmol/L ABG Total CO2 (19-24) mmol/L ABG O2 Saturation (94-97) % Potassium (3.5-5.1) mmol/L Chloride (98-107) mmol/L Carbon Dioxide (22-30) mmol/L BUN (9-20) mg/dL Creatinine (0.66-1.25) mg/dL Glucose (74-99) mg/dL POC Glucose (mg/dL) 119 H (75-99) mg/dL Hemoglobin A1c (4.0-6.0) % Plasma Lactic Acid Fredrick (0.7-2.0) mmol/L Calcium (8.4-10.2) mg/dL AST (17-59) U/L ALT (4-49) U/L Total Creatine Kinase (55-170) U/L CK-MB (CK-2) (0.0-2.4) ng/mL Troponin I (0.000-0.034) ng/mL Total Protein (6.3-8.2) g/dL Albumin (3.5-5.0) g/dL Microbiology - Last 24 Hours (Table) 10/21/19 18:20 Blood Culture - Preliminary Blood No Growth after 24 hours Assessment and Plan Plan: Assessment: 1. Acute kidney injury secondary to ATN secondary to severe intravascular v olume depletion due to hyperglycemia and further worsened with hypotension. Creatinine peaked at 2.7 this admission and is 2.58 today. 2. Rule out chronic any disease. Creatinine was in the range of 1.2-1.5 in July 2018. No proteinuria on UA. 3. Severe metabolic acidosis secondary to DKA. 4. DKA s/p insulin drip. 5. Hypertonic hyponatremia. Improving with improved blood sugars. In fact patient's corrected sodium was actually 154 on admission. Resolved. 6. Possible pneumonia maintained on antibiotics. 7. Hyperkalemia secondary to metabolic acidosis and acute kidney injury. Impro zainab. 8. Ileus. Surgery following. 9. Hypophosphatemia due to poor oral intake. Replace per protocol. Plan: Maintain normal saline at 100 mL an hour. Avoid nephrotoxins. 2 A of sodium bicarbonate IV push now. Wean FiO2 and vasopressors. Repeat BMP this evening.
--- NOTE | 2019-10-23 11:38 | P.GSCN ---
History of Present Illness Consult date: 10/23/19 History of present illness: CHIEF COMPLAINT: Abnormal computed tomography scan HISTORY OF PRESENT ILLNESS: The patient is a 79 year old male who presented acutely to the hospital October 20 with altered mental status changes. He presented with severe metabolic derangements including severe hyponatremia sodium 116, elevated potassium 5.7, glucose greater than 1875 including elevated troponins. Patient has baseline dementia. He was brought to the intensive care unit. He is currently in intensive care unit for mechanical ventilation. He is currently full code. Secondary to leukocytosis and workup for sepsis, abdominal computed tomography scan was obtained. Findings were consistent with ileus versus small bowel obstruction hence general surgery consultation. Additional information obtained from the patient's chart. Pat PAST MEDICAL HISTORY: See list. PAST SURGICAL HISTORY: See list. MEDICATIONS: See list. ALLERGIES: See list. SOCIAL HISTORY: See list. FAMILY HISTORY: See list. REVIEW OF ORGAN SYSTEMS: Unable to obtain due to patient mechanical ventilation and sedation PHYSICAL EXAM: VITALS: Reviewed CONSTITUTIONAL: Well developed and in no acute distress. EYES: Conjuctivae without sclera icterus. Pupils are equally round and reactive to light. Extraocular movements grossly intact. HEAD, EARS, NOSE, THROAT: Moist buccal mucosa. Head is atraumatic, normocephalic. No nasal drainage. Nasogastric tube present and functioning NECK: Supple. No thyroidomegaly. RESPIRATORY: Mechanical ventilation. No gross wheezes. CARDIOVASCULAR: Tachycardic. Extremities without edema. Palpable 2+ radial pulses. ABDOMEN: Soft. Mild distention. No peritonitis. LYMPH: No neck lymphadenopathy. MUSCULOSKELETAL: Nail and fingers with good capillary refill. SKIN: Warm and well perfused with good skin turgor. NEUROLOGIC: Patient sedated. PSYCH: Patient sedated CLINCAL LABS: Reviewed. Lactate on presentation 11.2 down to 4.8. WBC down from 15,400-11 700 IMAGING: Independently reviewed CT of the abdomen and pelvis with diffuse small bowel dilation including air within the colon consistent with ileus. No free air identified. No transition point identified. Evidence of diverticulosis sigmoid colon confirmed. RADIOLOGY: Report reviewed CT of the abdomen and pelvis demonstrating ascites, mild and mild diverticulitis and small bowel dilation as well. ASSESSMENT: 1. Abnormal computed tomography scan 2. Small bowel ileus due to multiple electrolyte dyscrasias 3. Uncontrolled diabetes type 2 with hyperglycemia 4. Lactic acidosis 5. Acute respiratory failure 6. Dementia PLAN: 1. Recommend placement of nasogastric tube for small bowel distention until correction of electrolyte dyscrasias and bowel movements. Ileus, and due to hypernatremia, hypo-or hyperkalemia. 2. Management of hyperglycemia with continuous insulin drip protocol per ICU 3. Clinically abdomen is stable. May repeat abdominal x-ray in 24-48 hours 4. Currently patient started on antibiotics for presumptive mild diverticulitis per computed tomography scan 5. Patient overall high surgical risk with hyperglycemia, vent dependent respi ratory failure, lactic acidosis for any surgical intervention 6. Recommend bowel regimen his abdominal x-rays improved 7. Overall prognosis guarded Thank you for this kind consultation. 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 years ago, AAA-extending to the iliacs measuring 4.6 cm based on the previous computed tomography scan imaging, DJD,back pain, skin cancer, History of Any Multi-Drug Resistant Organisms: None Reported Year Discovered:: None MDRO Source:: None Past Surgical History: Adenoidectomy, Joint Replacement, Tonsillectomy Additional Past Surgical History / Comment(s): left hip, left knee replaced, Past Anesthesia/Blood Transfusion Reactions: No Reported Reaction Past Psychological History: No Psychological Hx Reported Smoking Status: Former smoker Past Alcohol Use History: None Reported Past Drug Use History: None Reported - Past Family History Son(s) Additional Family Medical History / Comment(s): unable to obtain patient not good historian Mother Additional Family Medical History / Comment(s): unable to obtain patient not a good historian Medications and Allergies Home Medications Medication Instructions Recorded Confirmed Type DULoxetine HCL [Cymbalta] 60 mg PO DAILY 05/13/18 10/21/19 History Donepezil [Aricept] 5 mg PO HS #30 tab 05/15/18 10/21/19 Rx Cholecalciferol [Vitamin D3 (25 1,000 unit PO DAILY 07/27/18 10/21/19 History Mcg = 1000 Iu)] Lisinopril-Hctz 20-12.5 mg 1 tab PO BID 07/27/18 10/21/19 History [Zestoretic 20-12.5] Pantoprazole [Protonix] 40 mg PO DAILY #30 tablet. 07/28/18 10/21/19 Rx Cyanocobalamin (Vitamin B-12) 1,000 mcg PO DAILY 10/21/19 10/21/19 History [Vitamin B-12] Diclofenac Sodium [Voltaren Gel] 2 gram TOPICAL QID 10/21/19 10/21/19 History HYDROcodone/APAP 5-325MG [[place] 1 tab PO TID PRN 10/21/19 10/21/19 History 5-325] Linagliptin [Tradjenta] 5 mg PO DAILY 10/21/19 10/21/19 History Pravastatin Sodium [Pravachol] 40 mg PO DAILY 10/21/19 10/21/19 History Zolpidem [Ambien] 5 mg PO HS PRN 10/21/19 10/21/19 History glipiZIDE [Glucotrol] 5 mg PO AC-BID 10/21/19 10/21/19 History metFORMIN HCL [metFORMIN HCL ER 500 mg PO BID 10/21/19 10/21/19 History Osmotic] Allergies Allergy/AdvReac Type Severity Reaction Status Date / Time amoxicillin [Amoxicillin] Allergy Nausea & Verified 10/21/19 20:36 Vomiting & Diarrhea morphine Allergy Unknown Verified 10/21/19 20:36 Surgical - Exam Vital Signs Temp Pulse Resp BP Pulse Ox 97.5 F L 102 H 26 H 85/49 89 L 10/21/19 13:43 10/21/19 13:43 10/21/19 13:43 10/21/19 13:43 10/21/19 13:43 Results - Labs 10/23/19 03:00 10/23/19 03:00 Abnormal Lab Results - Last 24 Hours (Table) 10/21/19 10/21/19 10/22/19 Range/Units 18:30 22:20 09:59 WBC (3.8-10.6) k/uL RBC (4.30-5.90) m/uL Hct (39.0-53.0) % MCV (80.0-100.0) fL Plt Count (150-450) k/uL Neutrophils # (Manual) (1.3-7.7) k/uL Lymphocytes # (Manual) (1.0-4.8) k/uL Metamyelocytes # (Man) (0) k/uL Nucleated RBCs (0-0) /100 WBC ABG pH (7.35-7.45) ABG pCO2 (35-45) mmHg ABG pO2 (83-108) mmHg ABG HCO3 (21-25) mmol/L ABG Total CO2 (19-24) mmol/L ABG O2 Saturation (94-97) % Potassium (3.5-5.1) mmol/L Chloride (98-107) mmol/L Carbon Dioxide (22-30) mmol/L BUN (9-20) mg/dL Creatinine (0.66-1.25) mg/dL Glucose 1422 H* (74-99) mg/dL POC Glucose (mg/dL) (75-99) mg/dL Hemoglobin A1c 14.3 H (4.0-6.0) % Plasma Lactic Acid Fredrick (0.7-2.0) mmol/L Calcium (8.4-10.2) mg/dL AST (17-59) U/L ALT (4-49) U/L Total Creatine Kinase 191 H (55-170) U/L CK-MB (CK-2) 7.3 H (0.0-2.4) ng/mL Troponin I 2.250 H* (0.000-0.034) ng/mL Total Protein (6.3-8.2) g/dL Albumin (3.5-5.0) g/dL 10/22/19 10/22/19 10/22/19 Range/Units 11:10 12:00 13:20 WBC (3.8-10.6) k/uL RBC (4.30-5.90) m/uL Hct (39.0-53.0) % MCV (80.0-100.0) fL Plt Count (150-450) k/uL Neutrophils # (Manual) (1.3-7.7) k/uL Lymphocytes # (Manual) (1.0-4.8) k/uL Metamyelocytes # (Man) (0) k/uL Nucleated RBCs (0-0) /100 WBC ABG pH (7.35-7.45) ABG pCO2 (35-45) mmHg ABG pO2 (83-108) mmHg ABG HCO3 (21-25) mmol/L ABG Total CO2 (19-24) mmol/L ABG O2 Saturation (94-97) % Potassium (3.5-5.1) mmol/L Chloride (98-107) mmol/L Carbon Dioxide (22-30) mmol/L BUN (9-20) mg/dL Creatinine (0.66-1.25) mg/dL Glucose (74-99) mg/dL POC Glucose (mg/dL) 226 H 375 H 278 H (75-99) mg/dL Hemoglobin A1c (4.0-6.0) % Plasma Lactic Acid Fredrick (0.7-2.0) mmol/L Calcium (8.4-10.2) mg/dL AST (17-59) U/L ALT (4-49) U/L Total Creatine Kinase (55-170) U/L CK-MB (CK-2) (0.0-2.4) ng/mL Troponin I (0.000-0.034) ng/mL Total Protein (6.3-8.2) g/dL Albumin (3.5-5.0) g/dL 10/22/19 10/22/19 10/22/19 Range/Units 14:03 14:21 14:21 WBC (3.8-10.6) k/uL RBC (4.30-5.90) m/uL Hct (39.0-53.0) % MCV (80.0-100.0) fL Plt Count (150-450) k/uL Neutrophils # (Manual) (1.3-7.7) k/uL Lymphocytes # (Manual) (1.0-4.8) k/uL Metamyelocytes # (Man) (0) k/uL Nucleated RBCs (0-0) /100 WBC ABG pH (7.35-7.45) ABG pCO2 (35-45) mmHg ABG pO2 (83-108) mmHg ABG HCO3 (21-25) mmol/L ABG Total CO2 (19-24) mmol/L ABG O2 Saturation (94-97) % Potassium 5.7 H (3.5-5.1) mmol/L Chloride 115 H (98-107) mmol/L Carbon Dioxide 21 L (22-30) mmol/L BUN 35 H (9-20) mg/dL Creatinine 2.04 H (0.66-1.25) mg/dL Glucose 173 H (74-99) mg/dL POC Glucose (mg/dL) 236 H (75-99) mg/dL Hemoglobin A1c (4.0-6.0) % Plasma Lactic Acid Fredrick 4.0 H* (0.7-2.0) mmol/L Calcium 7.5 L (8.4-10.2) mg/dL AST (17-59) U/L ALT (4-49) U/L Total Creatine Kinase (55-170) U/L CK-MB (CK-2) (0.0-2.4) ng/mL Troponin I (0.000-0.034) ng/mL Total Protein (6.3-8.2) g/dL Albumin (3.5-5.0) g/dL 10/22/19 10/22/19 10/22/19 Range/Units 15:04 16:12 17:01 WBC (3.8-10.6) k/uL RBC (4.30-5.90) m/uL Hct (39.0-53.0) % MCV (80.0-100.0) fL Plt Count (150-450) k/uL Neutrophils # (Manual) (1.3-7.7) k/uL Lymphocytes # (Manual) (1.0-4.8) k/uL Metamyelocytes # (Man) (0) k/uL Nucleated RBCs (0-0) /100 WBC ABG pH (7.35-7.45) ABG pCO2 (35-45) mmHg ABG pO2 (83-108) mmHg ABG HCO3 (21-25) mmol/L ABG Total CO2 (19-24) mmol/L ABG O2 Saturation (94-97) % Potassium (3.5-5.1) mmol/L Chloride (98-107) mmol/L Carbon Dioxide (22-30) mmol/L BUN (9-20) mg/dL Creatinine (0.66-1.25) mg/dL Glucose (74-99) mg/dL POC Glucose (mg/dL) 193 H 188 H 178 H (75-99) mg/dL Hemoglobin A1c (4.0-6.0) % Plasma Lactic Acid Fredrick (0.7-2.0) mmol/L Calcium (8.4-10.2) mg/dL AST (17-59) U/L ALT (4-49) U/L Total Creatine Kinase (55-170) U/L CK-MB (CK-2) (0.0-2.4) ng/mL Troponin I (0.000-0.034) ng/mL Total Protein (6.3-8.2) g/dL Albumin (3.5-5.0) g/dL 10/22/19 10/22/19 10/22/19 Range/Units 18:05 18:05 18:12 WBC (3.8-10.6) k/uL RBC (4.30-5.90) m/uL Hct (39.0-53.0) % MCV (80.0-100.0) fL Plt Count (150-450) k/uL Neutrophils # (Manual) (1.3-7.7) k/uL Lymphocytes # (Manual) (1.0-4.8) k/uL Metamyelocytes # (Man) (0) k/uL Nucleated RBCs (0-0) /100 WBC ABG pH (7.35-7.45) ABG pCO2 (35-45) mmHg ABG pO2 (83-108) mmHg ABG HCO3 (21-25) mmol/L ABG Total CO2 (19-24) mmol/L ABG O2 Saturation (94-97) % Potassium 5.9 H (3.5-5.1) mmol/L Chloride 115 H (98-107) mmol/L Carbon Dioxide 21 L (22-30) mmol/L BUN 36 H (9-20) mg/dL Creatinine 2.41 H (0.66-1.25) mg/dL Glucose 288 H (74-99) mg/dL POC Glucose (mg/dL) 315 H (75-99) mg/dL Hemoglobin A1c (4.0-6.0) % Plasma Lactic Acid Fredrick 3.2 H* (0.7-2.0) mmol/L Calcium 7.4 L (8.4-10.2) mg/dL AST (17-59) U/L ALT (4-49) U/L Total Creatine Kinase (55-170) U/L CK-MB (CK-2) (0.0-2.4) ng/mL Troponin I (0.000-0.034) ng/mL Total Protein (6.3-8.2) g/dL Albumin (3.5-5.0) g/dL 10/22/19 10/22/19 10/22/19 Range/Units 19:09 20:50 21:15 WBC (3.8-10.6) k/uL RBC (4.30-5.90) m/uL Hct (39.0-53.0) % MCV (80.0-100.0) fL Plt Count (150-450) k/uL Neutrophils # (Manual) (1.3-7.7) k/uL Lymphocytes # (Manual) (1.0-4.8) k/uL Metamyelocytes # (Man) (0) k/uL Nucleated RBCs (0-0) /100 WBC ABG pH 7.27 L (7.35-7.45) ABG pCO2 27 L (35-45) mmHg ABG pO2 (83-108) mmHg ABG HCO3 13 L (21-25) mmol/L ABG Total CO2 13 L (19-24) mmol/L ABG O2 Saturation (94-97) % Potassium (3.5-5.1) mmol/L Chloride (98-107) mmol/L Carbon Dioxide (22-30) mmol/L BUN (9-20) mg/dL Creatinine (0.66-1.25) mg/dL Glucose (74-99) mg/dL POC Glucose (mg/dL) 334 H 345 H (75-99) mg/dL Hemoglobin A1c (4.0-6.0) % Plasma Lactic Acid Fredrick (0.7-2.0) mmol/L Calcium (8.4-10.2) mg/dL AST (17-59) U/L ALT (4-49) U/L Total Creatine Kinase (55-170) U/L CK-MB (CK-2) (0.0-2.4) ng/mL Troponin I (0.000-0.034) ng/mL Total Protein (6.3-8.2) g/dL Albumin (3.5-5.0) g/dL 10/22/19 10/22/19 10/22/19 Range/Units 22:15 22:15 22:15 WBC 13.3 H (3.8-10.6) k/uL RBC 3.87 L (4.30-5.90) m/uL Hct (39.0-53.0) % MCV 100.9 H (80.0-100.0) fL Plt Count 118 L D (150-450) k/uL Neutrophils # (Manual) 12.50 H (1.3-7.7) k/uL Lymphocytes # (Manual) 0.27 L (1.0-4.8) k/uL Metamyelocytes # (Man) 0.27 H (0) k/uL Nucleated RBCs 2 H (0-0) /100 WBC ABG pH (7.35-7.45) ABG pCO2 (35-45) mmHg ABG pO2 (83-108) mmHg ABG HCO3 (21-25) mmol/L ABG Total CO2 (19-24) mmol/L ABG O2 Saturation (94-97) % Potassium 6.2 H* (3.5-5.1) mmol/L Chloride 118 H (98-107) mmol/L Carbon Dioxide 13 L (22-30) mmol/L BUN 39 H (9-20) mg/dL Creatinine 2.72 H (0.66-1.25) mg/dL Glucose 368 H (74-99) mg/dL POC Glucose (mg/dL) (75-99) mg/dL Hemoglobin A1c (4.0-6.0) % Plasma Lactic Acid Fredrick 3.6 H* (0.7-2.0) mmol/L Calcium 6.9 L (8.4-10.2) mg/dL AST 3665 H (17-59) U/L ALT 1334 H (4-49) U/L Total Creatine Kinase (55-170) U/L CK-MB (CK-2) (0.0-2.4) ng/mL Troponin I (0.000-0.034) ng/mL Total Protein 4.9 L (6.3-8.2) g/dL Albumin 2.4 L (3.5-5.0) g/dL 10/22/19 10/22/19 10/23/19 Range/Units 22:17 23:52 00:58 WBC (3.8-10.6) k/uL RBC (4.30-5.90) m/uL Hct (39.0-53.0) % MCV (80.0-100.0) fL Plt Count (150-450) k/uL Neutrophils # (Manual) (1.3-7.7) k/uL Lymphocytes # (Manual) (1.0-4.8) k/uL Metamyelocytes # (Man) (0) k/uL Nucleated RBCs (0-0) /100 WBC ABG pH (7.35-7.45) ABG pCO2 (35-45) mmHg ABG pO2 (83-108) mmHg ABG HCO3 (21-25) mmol/L ABG Total CO2 (19-24) mmol/L ABG O2 Saturation (94-97) % Potassium (3.5-5.1) mmol/L Chloride (98-107) mmol/L Carbon Dioxide (22-30) mmol/L BUN (9-20) mg/dL Creatinine (0.66-1.25) mg/dL Glucose (74-99) mg/dL POC Glucose (mg/dL) 363 H 381 H 344 H (75-99) mg/dL Hemoglobin A1c (4.0-6.0) % Plasma Lactic Acid Fredrick (0.7-2.0) mmol/L Calcium (8.4-10.2) mg/dL AST (17-59) U/L ALT (4-49) U/L Total Creatine Kinase (55-170) U/L CK-MB (CK-2) (0.0-2.4) ng/mL Troponin I (0.000-0.034) ng/mL Total Protein (6.3-8.2) g/dL Albumin (3.5-5.0) g/dL 10/23/19 10/23/19 10/23/19 Range/Units 02:00 03:00 03:00 WBC 11.7 H (3.8-10.6) k/uL RBC 3.84 L (4.30-5.90) m/uL Hct 38.3 L (39.0-53.0) % MCV (80.0-100.0) fL Plt Count 110 L (150-450) k/uL Neutrophils # (Manual) 9.40 H (1.3-7.7) k/uL Lymphocytes # (Manual) 0.94 L (1.0-4.8) k/uL Metamyelocytes # (Man) 1.05 H (0) k/uL Nucleated RBCs (0-0) /100 WBC ABG pH (7.35-7.45) ABG pCO2 (35-45) mmHg ABG pO2 (83-108) mmHg ABG HCO3 (21-25) mmol/L ABG Total CO2 (19-24) mmol/L ABG O2 Saturation (94-97) % Potassium (3.5-5.1) mmol/L Chloride 116 H (98-107) mmol/L Carbon Dioxide 16 L (22-30) mmol/L BUN 40 H (9-20) mg/dL Creatinine 2.58 H (0.66-1.25) mg/dL Glucose 287 H (74-99) mg/dL POC Glucose (mg/dL) 328 H (75-99) mg/dL Hemoglobin A1c (4.0-6.0) % Plasma Lactic Acid Fredrick (0.7-2.0) mmol/L Calcium 6.7 L (8.4-10.2) mg/dL AST 3453 H (17-59) U/L ALT 1264 H (4-49) U/L Total Creatine Kinase (55-170) U/L CK-MB (CK-2) (0.0-2.4) ng/mL Troponin I (0.000-0.034) ng/mL Total Protein 4.6 L (6.3-8.2) g/dL Albumin 2.2 L (3.5-5.0) g/dL 10/23/19 10/23/19 10/23/19 Range/Units 03:00 03:02 04:08 WBC (3.8-10.6) k/uL RBC (4.30-5.90) m/uL Hct (39.0-53.0) % MCV (80.0-100.0) fL Plt Count (150-450) k/uL Neutrophils # (Manual) (1.3-7.7) k/uL Lymphocytes # (Manual) (1.0-4.8) k/uL Metamyelocytes # (Man) (0) k/uL Nucleated RBCs (0-0) /100 WBC ABG pH (7.35-7.45) ABG pCO2 (35-45) mmHg ABG pO2 (83-108) mmHg ABG HCO3 (21-25) mmol/L ABG Total CO2 (19-24) mmol/L ABG O2 Saturation (94-97) % Potassium (3.5-5.1) mmol/L Chloride (98-107) mmol/L Carbon Dioxide (22-30) mmol/L BUN (9-20) mg/dL Creatinine (0.66-1.25) mg/dL Glucose (74-99) mg/dL POC Glucose (mg/dL) 290 H 249 H (75-99) mg/dL Hemoglobin A1c (4.0-6.0) % Plasma Lactic Acid Fredrick 3.7 H* (0.7-2.0) mmol/L Calcium (8.4-10.2) mg/dL AST (17-59) U/L ALT (4-49) U/L Total Creatine Kinase (55-170) U/L CK-MB (CK-2) (0.0-2.4) ng/mL Troponin I (0.000-0.034) ng/mL Total Protein (6.3-8.2) g/dL Albumin (3.5-5.0) g/dL 10/23/19 10/23/19 10/23/19 Range/Units 05:01 05:07 06:05 WBC (3.8-10.6) k/uL RBC (4.30-5.90) m/uL Hct (39.0-53.0) % MCV (80.0-100.0) fL Plt Count (150-450) k/uL Neutrophils # (Manual) (1.3-7.7) k/uL Lymphocytes # (Manual) (1.0-4.8) k/uL Metamyelocytes # (Man) (0) k/uL Nucleated RBCs (0-0) /100 WBC ABG pH (7.35-7.45) ABG pCO2 26 L (35-45) mmHg ABG pO2 185 H (83-108) mmHg ABG HCO3 16 L (21-25) mmol/L ABG Total CO2 17 L (19-24) mmol/L ABG O2 Saturation 99.9 H (94-97) % Potassium (3.5-5.1) mmol/L Chloride (98-107) mmol/L Carbon Dioxide (22-30) mmol/L BUN (9-20) mg/dL Creatinine (0.66-1.25) mg/dL Glucose (74-99) mg/dL POC Glucose (mg/dL) 236 H 341 H (75-99) mg/dL Hemoglobin A1c (4.0-6.0) % Plasma Lactic Acid Fredrick (0.7-2.0) mmol/L Calcium (8.4-10.2) mg/dL AST (17-59) U/L ALT (4-49) U/L Total Creatine Kinase (55-170) U/L CK-MB (CK-2) (0.0-2.4) ng/mL Troponin I (0.000-0.034) ng/mL Total Protein (6.3-8.2) g/dL Albumin (3.5-5.0) g/dL 10/23/19 10/23/19 10/23/19 Range/Units 07:10 07:12 07:29 WBC (3.8-10.6) k/uL RBC (4.30-5.90) m/uL Hct (39.0-53.0) % MCV (80.0-100.0) fL Plt Count (150-450) k/uL Neutrophils # (Manual) (1.3-7.7) k/uL Lymphocytes # (Manual) (1.0-4.8) k/uL Metamyelocytes # (Man) (0) k/uL Nucleated RBCs (0-0) /100 WBC ABG pH (7.35-7.45) ABG pCO2 (35-45) mmHg ABG pO2 (83-108) mmHg ABG HCO3 (21-25) mmol/L ABG Total CO2 (19-24) mmol/L ABG O2 Saturation (94-97) % Potassium (3.5-5.1) mmol/L Chloride (98-107) mmol/L Carbon Dioxide (22-30) mmol/L BUN (9-20) mg/dL Creatinine (0.66-1.25) mg/dL Glucose (74-99) mg/dL POC Glucose (mg/dL) 204 H 198 H (75-99) mg/dL Hemoglobin A1c (4.0-6.0) % Plasma Lactic Acid Fredrick 4.8 H* (0.7-2.0) mmol/L Calcium (8.4-10.2) mg/dL AST (17-59) U/L ALT (4-49) U/L Total Creatine Kinase (55-170) U/L CK-MB (CK-2) (0.0-2.4) ng/mL Troponin I (0.000-0.034) ng/mL Total Protein (6.3-8.2) g/dL Albumin (3.5-5.0) g/dL 10/23/19 10/23/19 Range/Units 08:00 09:46 WBC (3.8-10.6) k/uL RBC (4.30-5.90) m/uL Hct (39.0-53.0) % MCV (80.0-100.0) fL Plt Count (150-450) k/uL Neutrophils # (Manual) (1.3-7.7) k/uL Lymphocytes # (Manual) (1.0-4.8) k/uL Metamyelocytes # (Man) (0) k/uL Nucleated RBCs (0-0) /100 WBC ABG pH (7.35-7.45) ABG pCO2 (35-45) mmHg ABG pO2 (83-108) mmHg ABG HCO3 (21-25) mmol/L ABG Total CO2 (19-24) mmol/L ABG O2 Saturation (94-97) % Potassium (3.5-5.1) mmol/L Chloride (98-107) mmol/L Carbon Dioxide (22-30) mmol/L BUN (9-20) mg/dL Creatinine (0.66-1.25) mg/dL Glucose (74-99) mg/dL POC Glucose (mg/dL) 167 H 119 H (75-99) mg/dL Hemoglobin A1c (4.0-6.0) % Plasma Lactic Acid Fredrick (0.7-2.0) mmol/L Calcium (8.4-10.2) mg/dL AST (17-59) U/L ALT (4-49) U/L Total Creatine Kinase (55-170) U/L CK-MB (CK-2) (0.0-2.4) ng/mL Troponin I (0.000-0.034) ng/mL Total Protein (6.3-8.2) g/dL Albumin (3.5-5.0) g/dL Microbiology - Last 24 Hours (Table) 10/21/19 18:20 Blood Culture - Preliminary Blood No Growth after 24 hours Diabetes panel 10/21/19 10/21/19 10/22/19 Range/Units 18:30 22:20 14:21 Sodium 144 (137-145) mmol/L Potassium 5.7 H (3.5-5.1) mmol/L Chloride 115 H (98-107) mmol/L Carbon Dioxide 21 L (22-30) mmol/L BUN 35 H (9-20) mg/dL Creatinine 2.04 H (0.66-1.25) mg/dL Glucose 1422 H* 173 H (74-99) mg/dL Hemoglobin A1c 14.3 H (4.0-6.0) % Calcium 7.5 L (8.4-10.2) mg/dL AST (17-59) U/L ALT (4-49) U/L Alkaline Phosphatase (38-126) U/L Total Protein (6.3-8.2) g/dL Albumin (3.5-5.0) g/dL 10/22/19 10/22/19 10/23/19 Range/Units 18:05 22:15 03:00 Sodium 142 141 142 (137-145) mmol/L Potassium 5.9 H 6.2 H* 4.7 (3.5-5.1) mmol/L Chloride 115 H 118 H 116 H (98-107) mmol/L Carbon Dioxide 21 L 13 L 16 L (22-30) mmol/L BUN 36 H 39 H 40 H (9-20) mg/dL Creatinine 2.41 H 2.72 H 2.58 H (0.66-1.25) mg/dL Glucose 288 H 368 H 287 H (74-99) mg/dL Hemoglobin A1c (4.0-6.0) % Calcium 7.4 L 6.9 L 6.7 L (8.4-10.2) mg/dL AST 3665 H 3453 H (17-59) U/L ALT 1334 H 1264 H (4-49) U/L Alkaline Phosphatase 81 73 (38-126) U/L Total Protein 4.9 L 4.6 L (6.3-8.2) g/dL Albumin 2.4 L 2.2 L (3.5-5.0) g/dL Calcium panel 10/22/19 10/22/19 10/22/19 Range/Units 14:21 18:05 22:15 Calcium 7.5 L 7.4 L 6.9 L (8.4-10.2) mg/dL Albumin 2.4 L (3.5-5.0) g/dL 10/23/19 Range/Units 03:00 Calcium 6.7 L (8.4-10.2) mg/dL Albumin 2.2 L (3.5-5.0) g/dL Pituitary panel 10/21/19 10/22/19 10/22/19 Range/Units 18:30 14:21 18:05 Sodium 144 142 (137-145) mmol/L Potassium 5.7 H 5.9 H (3.5-5.1) mmol/L Chloride 115 H 115 H (98-107) mmol/L Carbon Dioxide 21 L 21 L (22-30) mmol/L BUN 35 H 36 H (9-20) mg/dL Creatinine 2.04 H 2.41 H (0.66-1.25) mg/dL Glucose 1422 H* 173 H 288 H (74-99) mg/dL Calcium 7.5 L 7.4 L (8.4-10.2) mg/dL 10/22/19 10/23/19 Range/Units 22:15 03:00 Sodium 141 142 (137-145) mmol/L Potassium 6.2 H* 4.7 (3.5-5.1) mmol/L Chloride 118 H 116 H (98-107) mmol/L Carbon Dioxide 13 L 16 L (22-30) mmol/L BUN 39 H 40 H (9-20) mg/dL Creatinine 2.72 H 2.58 H (0.66-1.25) mg/dL Glucose 368 H 287 H (74-99) mg/dL Calcium 6.9 L 6.7 L (8.4-10.2) mg/dL Adrenal panel 10/21/19 10/22/19 10/22/19 Range/Units 18:30 14:21 18:05 Sodium 144 142 (137-145) mmol/L Potassium 5.7 H 5.9 H (3.5-5.1) mmol/L Chloride 115 H 115 H (98-107) mmol/L Carbon Dioxide 21 L 21 L (22-30) mmol/L BUN 35 H 36 H (9-20) mg/dL Creatinine 2.04 H 2.41 H (0.66-1.25) mg/dL Glucose 1422 H* 173 H 288 H (74-99) mg/dL Calcium 7.5 L 7.4 L (8.4-10.2) mg/dL Total Bilirubin (0.2-1.3) mg/dL AST (17-59) U/L ALT (4-49) U/L Alkaline Phosphatase (38-126) U/L Total Protein (6.3-8.2) g/dL Albumin (3.5-5.0) g/dL 10/22/19 10/23/19 Range/Units 22:15 03:00 Sodium 141 142 (137-145) mmol/L Potassium 6.2 H* 4.7 (3.5-5.1) mmol/L Chloride 118 H 116 H (98-107) mmol/L Carbon Dioxide 13 L 16 L (22-30) mmol/L BUN 39 H 40 H (9-20) mg/dL Creatinine 2.72 H 2.58 H (0.66-1.25) mg/dL Glucose 368 H 287 H (74-99) mg/dL Calcium 6.9 L 6.7 L (8.4-10.2) mg/dL Total Bilirubin 0.5 0.4 (0.2-1.3) mg/dL AST 3665 H 3453 H (17-59) U/L ALT 1334 H 1264 H (4-49) U/L Alkaline Phosphatase 81 73 (38-126) U/L Total Protein 4.9 L 4.6 L (6.3-8.2) g/dL Albumin 2.4 L 2.2 L (3.5-5.0) g/dL Assessment and Plan (1) Hyponatremia Current Visit: Yes Status: Acute Code(s): E87.1 - HYPO-OSMOLALITY AND HYPONATREMIA SNOMED Code(s): 09817853 (2) Hyperkalemia Current Visit: Yes Status: Acute Code(s): E87.5 - HYPERKALEMIA SNOMED Code(s): 71995633 (3) Sigmoid diverticulitis Current Visit: Yes Status: Acute Code(s): K57.32 - DVTRCLI OF LG INT W/O PERFORATION OR ABSCESS W/O BLEEDING SNOMED Code(s): 737406287 (4) Dynamic ileus Current Visit: Yes Status: Acute Code(s): K56.7 - ILEUS, UNSPECIFIED SNOMED Code(s): 41653701 (5) Hyperosmolar syndrome Current Visit: Yes Status: Acute Code(s): E87.0 - HYPEROSMOLALITY AND HYPERNATREMIA SNOMED Code(s): 32511175 (6) Hyperosmolarity due to secondary diabetes mellitus Current Visit: Yes Status: Acute Code(s): E13.00 - OTH DIAB W HYPROSM W/O NONKET HYPRGLY-HYPROS COMA ([facility]) SNOMED Code(s): 05327697 (7) Altered mental state Current Visit: No Status: Acute Code(s): R41.82 - ALTERED MENTAL STATUS, UNSPECIFIED SNOMED Code(s): 206199454 (8) Dementia Current Visit: No Status: Acute Code(s): F03.90 - UNSPECIFIED DEMENTIA WITHOUT BEHAVIORAL DISTURBANCE SNOMED Code(s): 37974383 (9) Renal insufficiency syndrome Current Visit: No Status: Acute Code(s): N28.9 - DISORDER OF KIDNEY AND URETER, UNSPECIFIED SNOMED Code(s): 604455868
--- NOTE | 2019-10-23 12:59 | P.PN ---
Subjective Progress Note Date: 10/23/19 80-year-old male patient known history of dementia, diabetes hypertension osteoarthritis in addition to abdominal aortic aneurysm, presented to the ED with altered mentation and severe dehydration. The patient's was noted to have elevated blood sugars at home which prompted this hospital visit. He was unable to provide any history at time of admission. He was confused and disoriented and his condition was progressively getting worse over this past few weeks. He apparently had generalized weakness, falls, and he was not seeking any medical attention. He has Alzheimer's dementia. His has Alzheimer's dementia also. Apparently his oral intake has been minimal and the patient was drinking only 4 L of soda on a daily basis. He has been noncompliant his diabetic medications also. A blood sugar of more than 1800. Sodium was 116. Potassium was 5.7 with a chloride of 74 and a serum bicarbonate 8 with an anion gap of 34. Creatinine was 2.4 with a BUN of 33. The serum lactate was 11.7. Troponin was 0.8. Phosphorus was 8.8. Lipase was 229. UA showed +4 glucose and the serum acetone was negative. The patient received a total of 4 L of IV fluids in the emergency department. He was started on an insulin drip. Currently the patient is on half-normal saline with 20 mEq of potassium. The patient metabolic acidosis improving. Based on the follow-up blood gases the pH was 7.0 and septal 7.13. Serum bicarb is also on the rise. The serum pCO2 is 26. Troponin 38. This was done and FiO2 of 36%. Sodium level improved and septal 131 and a potassium level is at 3.8. Anion gap is improving is down to 28. Creatinine is still at 2.1. Most recent blood sugar shows that the sugar is still elevated above 600 with a serum measurement of 1230. The chest x-ray shows some sub segmental atelectasis in the right lower lobe. CAT scan of the brain shows no evidence of any acute hemorrhage. There is some degenerative changes and nonspecific white matter changes consistent with remote ischemia. EKG showing sinus tachycardia along with Q waves over the anteroseptal leads consistent with an old infarct. Heart rate is around 102. On today's evaluation of 10/22/2019, the patient is still lethargic and somnolent and encephalopathic. He is unable to volunteer any history. He has dementia. Furthermore there has been significant metabolic disturbances, leading to his impaired mentation. In terms of his blood sugar control, the patient has been on insulin drip at 3 units an hour. His IV fluids have been running in the form of D5 half-normal saline along with 20 mEq of potassium at the rate of 150 mL an hour. The patient was receiving another 2 L of IV fluid bolus based on the fact that it looks quite dry with very dry mucosal membranes on today's evaluation. In terms of his blood sugar control, the blood sugar was steadily going down and after the blood sugar went down below 300 was switched him to a D5 half-normal saline solution. His anion gap is at 10. The serum bicarb is at 18. His lactic acid level has dropped down to 6.0. His troponin peaked at 2.2. Denies having any chest pain. Note that his based on troponin was at 0.8. His EKG showed old Q-wave changes over the anteroseptal leads and echocardiac Tito was done today and the patient was found to have a ejection fraction estimated to be around 30-35% along with anteroseptal and apical hypokinesis. No evidence of an aortic valve stenosis. Unable to estimate the right-sided pressures. Unable to have a good visualization of the rest of the valves. His white cell count of 15.4. His antibiotic coverage includes a combination of Rocephin and Zithromax and Diflucan for now. There is some erythema along the penile tip and the Maradiaga catheter is in place. Repeat chest x-ray from today shows atelectatic changes in the right lower lobe. No other significant abnormalities have been noted. The patient is currently on 4 L of oxygen by nasal cannula with a pulse ox of 98%. He still has some underlying sinus tachycardia. On today's evaluation of 10/23/2019 the patient's condition decompensated. I have already contacted the son and updated them on his father's condition. Note that by yesterday afternoon, the patient became progressively more restless, agitated, shortness of breath, and he was also indicating the possibility of abdominal distention and pain. He was hard to communicate with him as the patient was not providing any meaningful information and he was altered mentally. Nevertheless, we suspected that the patient was having increased abdominal pain and discomfort. At that point, decided to insert an NG tube and immediately approximately a liter of gastric juice was obtained as a return. Abdomen remained quite tender and distended. At that point, the patient was also becoming more hypotensive. He was given more IV fluids. He was intubated and placed on a mechanical ventilator. Post intubation, the patient became hypotensive and he was started on IV pressors. Blood gases was noted. Chest x- ray was noted. The patient was developing a right lower lobe pulmonary infiltration. He was taken down for a CAT scan of the abdomen and pelvis and the CAT scan showed evidence of a infiltrate in the right lung base and fatty infiltration of the liver and some multiple calcified gallstones and the bile ducts were not dilated. At the same time, the CAT scan showed a fusiform 4.4 cm lower abdominal aortic aneurysm. There was no evidence of any retroperitoneal lymphadenopathy. There was multiple diverticula in the sigmoid colon and multiple dilated air fluid filled loops of the small bowel and the small bowel was dilated up to 4 cm in size. There was also mild wall thickening of the ascending colon. There was also minimal fat stranding around the sigmoid colon. There was osteoarthritis of the right hip. Antibiotics were modified and the patient was started on IV Zosyn. This morning, the patient is sedated with propofol at 20 g. This is to be switched to Versed at the patient's triglyceride level came up above 500. The patient is receiving IV fluids in the form of normal saline at rate of 100 mL an hour. His urine output is diminished and the patient's creatinine is at 2.5. The neck fluid balance over the past 24 hours has been +5.3 L. The patient is currently on norepinephrine infusion running at 0.4 mcg/kg per minute. The patient is also on insulin drip at 9 units an hour. Noted the blood sugar control is improved and the patient's lactic acid level was also improving it was down to 3.7. During the course of this treatment, the patient developed also a shock liver with elevated AST and ALP. He developed an acute kidney injury on top of his chronic kidney failure with a creatinine maxing at 2.7 down to 2.5. The patient is currently on a mechanical ventilator on assist control mode at the rate of 28 with tidal volume of 500 and FiO2 of 60% with a PEEP of 5. Morning blood gases showed a pH of 7.39 with a pCO2 of 26 and pO2 of 185. Morning chest x-ray showed right lower lobe pulmonary infiltration and subsequently a triple-lumen catheter was inserted and the supportive living catheter was inserted without any complications. Surgical consultation was also obtained regarding the abdominal findings. Objective - Vital Signs Vital signs: Vital Signs Temp 100.3 F H 10/23/19 08:00 Pulse 112 H 10/23/19 11:45 Resp 33 H 10/23/19 11:45 BP 96/68 10/23/19 09:00 Pulse Ox 97 10/23/19 11:45 Intake & Output 10/22/19 10/23/19 10/23/19 18:59 06:59 18:59 Intake Total 5050.506 3346.114 821.712 Output Total 255 2817 830 Balance 4795.506 529.114 -8.288 Weight 75.2 kg 75.2 kg Intake: IV 600 2350 600 0.45% NaCl with KCl 20 600 Meq/l 1,000 ml @ 150 mls/ hr IV .Q6H40M [facility] Rx#: [id number] ACETAMINOPHEN IV (For NPO 100 ) 1,000 mg In Empty Bag 1 bag @ 400 mls/hr IVPB Q6H [facility] Rx#:[id number] Dextrose 5%-0.45% NaCl 1, 1050 150 000 ml @ 150 mls/hr IV . Q6H40M [facility] Rx#:[id number] Piperacillin-Tazobactam 3 200 .375 gm In Sodium Chloride 0.9% 100 ml @ 25 mls/hr IVPB Q8H [facility] Rx#: [id number] Sodium Chloride 0.9% 1, 1000 450 000 ml @ 999 mls/hr IV . Q1H1M [facility] Rx#:[id number] Intake, IV Titration 4450.506 996.114 221.712 Amount D5-0.45% NaCl with KCl 300 20Meq/l 1,000 ml @ 150 mls/hr IV .Q6H40M [facility] Rx# :[id number] Dextrose 5%-0.45% NaCl 1, 900 150 000 ml @ 150 mls/hr IV . Q6H40M [facility] Rx#:[id number] Insulin Regular 100 unit 50.506 68.697 17.024 In Sodium Chloride 0.9% 100 ml @ 0.1 UNITS/KG/HR 6.929 mls/hr IV .[id number] [facility] Rx#:[id number] Midazolam HCl 50 mg In 1.8 Sodium Chloride 0.9% 40 ml @ 1 MG/HR 1 mls/hr IV .Q24H [facility] Rx#:[id number] Norepinephrine 32 mg In 25.533 Sodium Chloride 0.9% 218 ml @ 0.42 MCG/KG/MIN 14. 805 mls/hr IV .[id number] [facility] Rx#:[id number] Norepinephrine 4 mg In 637.794 Sodium Chloride 0.9% 250 ml @ 0.05 MCG/KG/MIN 12. 859 mls/hr IV .[id number] [facility] Rx#:[id number] Potassium Phosphate 10 200 mmol In Sodium Chloride 0 .9% 250 ml @ 125 mls/hr IV Q2H [facility] Rx#:[id number] Propofol 1,000 mg In 139.623 177.355 Empty Bag 1 bag @ Titrate IV .Q0M [facility] Rx#: [id number] Sodium Chloride 0.9% 1, 1000 000 ml @ 999 mls/hr IV . Q1H1M [facility] Rx#:[id number] Sodium Chloride 0.9% 2, 2000 000 ml @ 999 mls/hr IV . Q2H1M [facility] Rx#:[id number] Output: Gastric Drainage 1300 100 Urine 255 1367 730 Emesis 150 Other: Voiding Method Indwelling Catheter Indwelling Catheter ABP, PAP, CO, CI - Last Documented Arterial Blood Pressure 122/56 - Exam Gen. appearance the patient is sedated, comfortable likely distress currently on a propofol drip running at 20 mg per KG per minute. The patient is withdrawing to deep painful stimulation. No signs of respiratory distress. The patient has an orogastric and orotracheal tube are both of them are in place. Head exam was generally normal. There was no scleral icterus or corneal arcus. Mucous membranes were dry Neck was supple and without jugular venous distension, thyromegaly, or carotid bruits. Carotids were easily palpable bilaterally. There was no adenopathy. Lungs were clear to auscultation and percussion, and with normal diaphragmatic excursion. No wheezes or rales were noted. Cardiac exam revealed the PMI to be normally situated and sized. The rhythm was regular and no extrasystoles were noted during several minutes of auscultation. The first and second heart sounds were normal and physiologic splitting of the second heart sound was noted. There were no murmurs, rubs, clicks, or gallops. Abdominal exam revealed normal bowel sounds. The patient has hypoactive bowel sounds. The patient's abdomen is slightly distended. No direct tenderness or rebound tensile guarding at this point in time. NG tube is in place. Organ enlargement cannot be palpated on today's evaluation. Extremities reveal chronic ulceration lower extremities bilaterally with diminished pulses. No cyanosis or clubbing. There is no open wounds or cellulitis in the lower extremities. Neurologic the patient is sedated, comfortable and no focal neurological deficits have been noted. - Labs CBC & Chem 7: 10/23/19 03:00 10/23/19 03:00 Labs: Abnormal Lab Results - Last 24 Hours (Table) 10/21/19 10/22/19 10/22/19 Range/Units 22:20 13:20 14:03 WBC (3.8-10.6) k/uL RBC (4.30-5.90) m/uL Hct (39.0-53.0) % MCV (80.0-100.0) fL Plt Count (150-450) k/uL Neutrophils # (Manual) (1.3-7.7) k/uL Lymphocytes # (Manual) (1.0-4.8) k/uL Metamyelocytes # (Man) (0) k/uL Nucleated RBCs (0-0) /100 WBC ABG pH (7.35-7.45) ABG pCO2 (35-45) mmHg ABG pO2 (83-108) mmHg ABG HCO3 (21-25) mmol/L ABG Total CO2 (19-24) mmol/L ABG O2 Saturation (94-97) % Potassium (3.5-5.1) mmol/L Chloride (98-107) mmol/L Carbon Dioxide (22-30) mmol/L BUN (9-20) mg/dL Creatinine (0.66-1.25) mg/dL Glucose (74-99) mg/dL POC Glucose (mg/dL) 278 H 236 H (75-99) mg/dL Hemoglobin A1c 14.3 H (4.0-6.0) % Plasma Lactic Acid Fredrick (0.7-2.0) mmol/L Calcium (8.4-10.2) mg/dL AST (17-59) U/L ALT (4-49) U/L Total Protein (6.3-8.2) g/dL Albumin (3.5-5.0) g/dL 10/22/19 10/22/19 10/22/19 Range/Units 14:21 14:21 15:04 WBC (3.8-10.6) k/uL RBC (4.30-5.90) m/uL Hct (39.0-53.0) % MCV (80.0-100.0) fL Plt Count (150-450) k/uL Neutrophils # (Manual) (1.3-7.7) k/uL Lymphocytes # (Manual) (1.0-4.8) k/uL Metamyelocytes # (Man) (0) k/uL Nucleated RBCs (0-0) /100 WBC ABG pH (7.35-7.45) ABG pCO2 (35-45) mmHg ABG pO2 (83-108) mmHg ABG HCO3 (21-25) mmol/L ABG Total CO2 (19-24) mmol/L ABG O2 Saturation (94-97) % Potassium 5.7 H (3.5-5.1) mmol/L Chloride 115 H (98-107) mmol/L Carbon Dioxide 21 L (22-30) mmol/L BUN 35 H (9-20) mg/dL Creatinine 2.04 H (0.66-1.25) mg/dL Glucose 173 H (74-99) mg/dL POC Glucose (mg/dL) 193 H (75-99) mg/dL Hemoglobin A1c (4.0-6.0) % Plasma Lactic Acid Fredrick 4.0 H* (0.7-2.0) mmol/L Calcium 7.5 L (8.4-10.2) mg/dL AST (17-59) U/L ALT (4-49) U/L Total Protein (6.3-8.2) g/dL Albumin (3.5-5.0) g/dL 10/22/19 10/22/19 10/22/19 Range/Units 16:12 17:01 18:05 WBC (3.8-10.6) k/uL RBC (4.30-5.90) m/uL Hct (39.0-53.0) % MCV (80.0-100.0) fL Plt Count (150-450) k/uL Neutrophils # (Manual) (1.3-7.7) k/uL Lymphocytes # (Manual) (1.0-4.8) k/uL Metamyelocytes # (Man) (0) k/uL Nucleated RBCs (0-0) /100 WBC ABG pH (7.35-7.45) ABG pCO2 (35-45) mmHg ABG pO2 (83-108) mmHg ABG HCO3 (21-25) mmol/L ABG Total CO2 (19-24) mmol/L ABG O2 Saturation (94-97) % Potassium 5.9 H (3.5-5.1) mmol/L Chloride 115 H (98-107) mmol/L Carbon Dioxide 21 L (22-30) mmol/L BUN 36 H (9-20) mg/dL Creatinine 2.41 H (0.66-1.25) mg/dL Glucose 288 H (74-99) mg/dL POC Glucose (mg/dL) 188 H 178 H (75-99) mg/dL Hemoglobin A1c (4.0-6.0) % Plasma Lactic Acid Fredrick (0.7-2.0) mmol/L Calcium 7.4 L (8.4-10.2) mg/dL AST (17-59) U/L ALT (4-49) U/L Total Protein (6.3-8.2) g/dL Albumin (3.5-5.0) g/dL 10/22/19 10/22/19 10/22/19 Range/Units 18:05 18:12 19:09 WBC (3.8-10.6) k/uL RBC (4.30-5.90) m/uL Hct (39.0-53.0) % MCV (80.0-100.0) fL Plt Count (150-450) k/uL Neutrophils # (Manual) (1.3-7.7) k/uL Lymphocytes # (Manual) (1.0-4.8) k/uL Metamyelocytes # (Man) (0) k/uL Nucleated RBCs (0-0) /100 WBC ABG pH (7.35-7.45) ABG pCO2 (35-45) mmHg ABG pO2 (83-108) mmHg ABG HCO3 (21-25) mmol/L ABG Total CO2 (19-24) mmol/L ABG O2 Saturation (94-97) % Potassium (3.5-5.1) mmol/L Chloride (98-107) mmol/L Carbon Dioxide (22-30) mmol/L BUN (9-20) mg/dL Creatinine (0.66-1.25) mg/dL Glucose (74-99) mg/dL POC Glucose (mg/dL) 315 H 334 H (75-99) mg/dL Hemoglobin A1c (4.0-6.0) % Plasma Lactic Acid Fredrick 3.2 H* (0.7-2.0) mmol/L Calcium (8.4-10.2) mg/dL AST (17-59) U/L ALT (4-49) U/L Total Protein (6.3-8.2) g/dL Albumin (3.5-5.0) g/dL 10/22/19 10/22/19 10/22/19 Range/Units 20:50 21:15 22:15 WBC (3.8-10.6) k/uL RBC (4.30-5.90) m/uL Hct (39.0-53.0) % MCV (80.0-100.0) fL Plt Count (150-450) k/uL Neutrophils # (Manual) (1.3-7.7) k/uL Lymphocytes # (Manual) (1.0-4.8) k/uL Metamyelocytes # (Man) (0) k/uL Nucleated RBCs (0-0) /100 WBC ABG pH 7.27 L (7.35-7.45) ABG pCO2 27 L (35-45) mmHg ABG pO2 (83-108) mmHg ABG HCO3 13 L (21-25) mmol/L ABG Total CO2 13 L (19-24) mmol/L ABG O2 Saturation (94-97) % Potassium (3.5-5.1) mmol/L Chloride (98-107) mmol/L Carbon Dioxide (22-30) mmol/L BUN (9-20) mg/dL Creatinine (0.66-1.25) mg/dL Glucose (74-99) mg/dL POC Glucose (mg/dL) 345 H (75-99) mg/dL Hemoglobin A1c (4.0-6.0) % Plasma Lactic Acid Fredrick 3.6 H* (0.7-2.0) mmol/L Calcium (8.4-10.2) mg/dL AST (17-59) U/L ALT (4-49) U/L Total Protein (6.3-8.2) g/dL Albumin (3.5-5.0) g/dL 10/22/19 10/22/19 10/22/19 Range/Units 22:15 22:15 22:17 WBC 13.3 H (3.8-10.6) k/uL RBC 3.87 L (4.30-5.90) m/uL Hct (39.0-53.0) % MCV 100.9 H (80.0-100.0) fL Plt Count 118 L D (150-450) k/uL Neutrophils # (Manual) 12.50 H (1.3-7.7) k/uL Lymphocytes # (Manual) 0.27 L (1.0-4.8) k/uL Metamyelocytes # (Man) 0.27 H (0) k/uL Nucleated RBCs 2 H (0-0) /100 WBC ABG pH (7.35-7.45) ABG pCO2 (35-45) mmHg ABG pO2 (83-108) mmHg ABG HCO3 (21-25) mmol/L ABG Total CO2 (19-24) mmol/L ABG O2 Saturation (94-97) % Potassium 6.2 H* (3.5-5.1) mmol/L Chloride 118 H (98-107) mmol/L Carbon Dioxide 13 L (22-30) mmol/L BUN 39 H (9-20) mg/dL Creatinine 2.72 H (0.66-1.25) mg/dL Glucose 368 H (74-99) mg/dL POC Glucose (mg/dL) 363 H (75-99) mg/dL Hemoglobin A1c (4.0-6.0) % Plasma Lactic Acid Fredrick (0.7-2.0) mmol/L Calcium 6.9 L (8.4-10.2) mg/dL AST 3665 H (17-59) U/L ALT 1334 H (4-49) U/L Total Protein 4.9 L (6.3-8.2) g/dL Albumin 2.4 L (3.5-5.0) g/dL 10/22/19 10/23/19 10/23/19 Range/Units 23:52 00:58 02:00 WBC (3.8-10.6) k/uL RBC (4.30-5.90) m/uL Hct (39.0-53.0) % MCV (80.0-100.0) fL Plt Count (150-450) k/uL Neutrophils # (Manual) (1.3-7.7) k/uL Lymphocytes # (Manual) (1.0-4.8) k/uL Metamyelocytes # (Man) (0) k/uL Nucleated RBCs (0-0) /100 WBC ABG pH (7.35-7.45) ABG pCO2 (35-45) mmHg ABG pO2 (83-108) mmHg ABG HCO3 (21-25) mmol/L ABG Total CO2 (19-24) mmol/L ABG O2 Saturation (94-97) % Potassium (3.5-5.1) mmol/L Chloride (98-107) mmol/L Carbon Dioxide (22-30) mmol/L BUN (9-20) mg/dL Creatinine (0.66-1.25) mg/dL Glucose (74-99) mg/dL POC Glucose (mg/dL) 381 H 344 H 328 H (75-99) mg/dL Hemoglobin A1c (4.0-6.0) % Plasma Lactic Acid Fredrick (0.7-2.0) mmol/L Calcium (8.4-10.2) mg/dL AST (17-59) U/L ALT (4-49) U/L Total Protein (6.3-8.2) g/dL Albumin (3.5-5.0) g/dL 10/23/19 10/23/19 10/23/19 Range/Units 03:00 03:00 03:00 WBC 11.7 H (3.8-10.6) k/uL RBC 3.84 L (4.30-5.90) m/uL Hct 38.3 L (39.0-53.0) % MCV (80.0-100.0) fL Plt Count 110 L (150-450) k/uL Neutrophils # (Manual) 9.40 H (1.3-7.7) k/uL Lymphocytes # (Manual) 0.94 L (1.0-4.8) k/uL Metamyelocytes # (Man) 1.05 H (0) k/uL Nucleated RBCs (0-0) /100 WBC ABG pH (7.35-7.45) ABG pCO2 (35-45) mmHg ABG pO2 (83-108) mmHg ABG HCO3 (21-25) mmol/L ABG Total CO2 (19-24) mmol/L ABG O2 Saturation (94-97) % Potassium (3.5-5.1) mmol/L Chloride 116 H (98-107) mmol/L Carbon Dioxide 16 L (22-30) mmol/L BUN 40 H (9-20) mg/dL Creatinine 2.58 H (0.66-1.25) mg/dL Glucose 287 H (74-99) mg/dL POC Glucose (mg/dL) (75-99) mg/dL Hemoglobin A1c (4.0-6.0) % Plasma Lactic Acid Fredrick 3.7 H* (0.7-2.0) mmol/L Calcium 6.7 L (8.4-10.2) mg/dL AST 3453 H (17-59) U/L ALT 1264 H (4-49) U/L Total Protein 4.6 L (6.3-8.2) g/dL Albumin 2.2 L (3.5-5.0) g/dL 10/23/19 10/23/19 10/23/19 Range/Units 03:02 04:08 05:01 WBC (3.8-10.6) k/uL RBC (4.30-5.90) m/uL Hct (39.0-53.0) % MCV (80.0-100.0) fL Plt Count (150-450) k/uL Neutrophils # (Manual) (1.3-7.7) k/uL Lymphocytes # (Manual) (1.0-4.8) k/uL Metamyelocytes # (Man) (0) k/uL Nucleated RBCs (0-0) /100 WBC ABG pH (7.35-7.45) ABG pCO2 26 L (35-45) mmHg ABG pO2 185 H (83-108) mmHg ABG HCO3 16 L (21-25) mmol/L ABG Total CO2 17 L (19-24) mmol/L ABG O2 Saturation 99.9 H (94-97) % Potassium (3.5-5.1) mmol/L Chloride (98-107) mmol/L Carbon Dioxide (22-30) mmol/L BUN (9-20) mg/dL Creatinine (0.66-1.25) mg/dL Glucose (74-99) mg/dL POC Glucose (mg/dL) 290 H 249 H (75-99) mg/dL Hemoglobin A1c (4.0-6.0) % Plasma Lactic Acid Fredrick (0.7-2.0) mmol/L Calcium (8.4-10.2) mg/dL AST (17-59) U/L ALT (4-49) U/L Total Protein (6.3-8.2) g/dL Albumin (3.5-5.0) g/dL 10/23/19 10/23/19 10/23/19 Range/Units 05:07 06:05 07:10 WBC (3.8-10.6) k/uL RBC (4.30-5.90) m/uL Hct (39.0-53.0) % MCV (80.0-100.0) fL Plt Count (150-450) k/uL Neutrophils # (Manual) (1.3-7.7) k/uL Lymphocytes # (Manual) (1.0-4.8) k/uL Metamyelocytes # (Man) (0) k/uL Nucleated RBCs (0-0) /100 WBC ABG pH (7.35-7.45) ABG pCO2 (35-45) mmHg ABG pO2 (83-108) mmHg ABG HCO3 (21-25) mmol/L ABG Total CO2 (19-24) mmol/L ABG O2 Saturation (94-97) % Potassium (3.5-5.1) mmol/L Chloride (98-107) mmol/L Carbon Dioxide (22-30) mmol/L BUN (9-20) mg/dL Creatinine (0.66-1.25) mg/dL Glucose (74-99) mg/dL POC Glucose (mg/dL) 236 H 341 H 204 H (75-99) mg/dL Hemoglobin A1c (4.0-6.0) % Plasma Lactic Acid Fredrick (0.7-2.0) mmol/L Calcium (8.4-10.2) mg/dL AST (17-59) U/L ALT (4-49) U/L Total Protein (6.3-8.2) g/dL Albumin (3.5-5.0) g/dL 10/23/19 10/23/19 10/23/19 Range/Units 07:12 07:29 08:00 WBC (3.8-10.6) k/uL RBC (4.30-5.90) m/uL Hct (39.0-53.0) % MCV (80.0-100.0) fL Plt Count (150-450) k/uL Neutrophils # (Manual) (1.3-7.7) k/uL Lymphocytes # (Manual) (1.0-4.8) k/uL Metamyelocytes # (Man) (0) k/uL Nucleated RBCs (0-0) /100 WBC ABG pH (7.35-7.45) ABG pCO2 (35-45) mmHg ABG pO2 (83-108) mmHg ABG HCO3 (21-25) mmol/L ABG Total CO2 (19-24) mmol/L ABG O2 Saturation (94-97) % Potassium (3.5-5.1) mmol/L Chloride (98-107) mmol/L Carbon Dioxide (22-30) mmol/L BUN (9-20) mg/dL Creatinine (0.66-1.25) mg/dL Glucose (74-99) mg/dL POC Glucose (mg/dL) 198 H 167 H (75-99) mg/dL Hemoglobin A1c (4.0-6.0) % Plasma Lactic Acid Fredrick 4.8 H* (0.7-2.0) mmol/L Calcium (8.4-10.2) mg/dL AST (17-59) U/L ALT (4-49) U/L Total Protein (6.3-8.2) g/dL Albumin (3.5-5.0) g/dL 10/23/19 Range/Units 09:46 WBC (3.8-10.6) k/uL RBC (4.30-5.90) m/uL Hct (39.0-53.0) % MCV (80.0-100.0) fL Plt Count (150-450) k/uL Neutrophils # (Manual) (1.3-7.7) k/uL Lymphocytes # (Manual) (1.0-4.8) k/uL Metamyelocytes # (Man) (0) k/uL Nucleated RBCs (0-0) /100 WBC ABG pH (7.35-7.45) ABG pCO2 (35-45) mmHg ABG pO2 (83-108) mmHg ABG HCO3 (21-25) mmol/L ABG Total CO2 (19-24) mmol/L ABG O2 Saturation (94-97) % Potassium (3.5-5.1) mmol/L Chloride (98-107) mmol/L Carbon Dioxide (22-30) mmol/L BUN (9-20) mg/dL Creatinine (0.66-1.25) mg/dL Glucose (74-99) mg/dL POC Glucose (mg/dL) 119 H (75-99) mg/dL Hemoglobin A1c (4.0-6.0) % Plasma Lactic Acid Fredrick (0.7-2.0) mmol/L Calcium (8.4-10.2) mg/dL AST (17-59) U/L ALT (4-49) U/L Total Protein (6.3-8.2) g/dL Albumin (3.5-5.0) g/dL Microbiology - Last 24 Hours (Table) 10/21/19 18:20 Blood Culture - Preliminary Blood No Growth after 24 hours Assessment and Plan Plan: 1 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 The patient was taken off the D5 half-normal solution. The positive fluid balance his daughter of 8 L. 2 acute abdominal distention/pain with further workup indicating small bowel ileus/obstruction in addition the possibility of ascending and sigmoid colitis. The patient is currently on IV Zosyn. NG tube is in place and the patient is placed into a bowel rest. 3 shock with profound hypotension and the patient has been aggressively res uscitated IV fluids and currently patient is also on pressors. Initially, the presentation was mainly hypovolemic shock and subsequently there is concern about septic shock due to the above-mentioned comorbidities. The patient may have an abdominal source of ischemia for which he just surgery This has been obtained and the patient was started on IV Zosyn. The patient has a small bowel obstruction and possible ischemic large bowel involving the ascending and sigmoid colon/colitis. 4 acute kidney injury secondary to above versus chronic renal failure 5 acut hypoxic respiratory failure, currently intubated on a mechanical ventilator. There is a possibility of a developing right lower lobe pneumonia as the patient's most recent chest x-ray and the CAT scan of the abdomen showed infiltration in consult inflammation of the right lower lobe. 6 altered mental status secondary to above, And the patient is currently intubated on a mechanical ventilator and was sedated 7 diabetes mellitusmaintaineds on ount basis with poor compliance 8 alzheimer's dementia 9 pseudohyponatremia, related to severe hyperglycemia, improved 10 History of hypertension 11 penile erythema, consistent with a fungal infection in the setting of diabetes mellitus,, consider bacterial infection, less likely possibilities are viral infections or dermatitis 12 4.6 cm distal abdominal aortic aneurysm extending to the aortic bifurcation and involving the common iliac arteries with indwelling BILATERAL ILIAC ENDOLUMINAL STENT GRAFT, Unchanged in the most recent CAT scan of the abdomen and pelvis 13 peripheral vascular disease 14 troponin leak, consider Ischemia type 2, the troponin peaked at 2.25 15 acute shock liver secondary to hypotension 16 CHF with ischemic cardiomyopathy and ejection fraction of 3035% in addition to old IN involving the anteroseptal and apical segments of the heart and left ventricle consistent with EKG findings. 17 severe lactic acidosis secondary to dehydration, with possible sepsis and the patient's lactic acid level is gradually improving is down to 3.7 Plan Continue IV fluids normal saline at the rate of 100 mL an hour Continue insulin drip and titrate the dose Continue IV Zosyn Keep the patient sedated with propofol Triple lumen catheter was inserted and the a CVP measurement will be done every shift Continue pressors with norepinephrine dose of 0.4 g per KG per minute Monitor lactic acid levels Echocardiogram showed impaired LV function with an ejection fraction of 3035% with segmental wall motion abnormalities CAT scan of the abdomen was noted Chest surgical consultation is pending Keep the patient nothing by mouth and keep the most arrest with an NG tube in place Monitor renal function Wean down the FiO2 as tolerated to maintain a saturation above 90% Chest x-ray was noted Blood gases was noted Monitor liver function tests that the patient is currently shock liver Contacted the son and informed him of the above-mentioned conditions. His condition is critical and this evaluation was on a more than 30 minutes. Time with Patient: Greater than 30
--- NOTE | 2019-10-23 13:05 | P.PCN ---
Date of Procedure: 10/23/19 Preoperative Diagnosis: Shock, hypotension Postoperative Diagnosis: Shock, hypotension Procedure(s) Performed: Triple-lumen catheter insertion Anesthesia: local Surgeon: Bella Shell Estimated Blood Loss (ml): 0 Pathology: none sent Condition: critical Disposition: ICU Operative Findings: Indication: Hemodynamic monitoring/Intravenous access. A time-out was completed verifying correct patient, procedure, site, positioning, and implant(s) or special equipment if applicable. The patient was placed in a dependent position appropriate for central line placement based on the vein to be cannulated. The patient's left shoulder was prepped and draped in sterile fashion. 1% Lidocaine was used to anesthetize the surrounding skin area. A triple lumen 9F Cordis catheter was introduced into the left subclavian vein using Seldinger technique. The catheter was threaded smoothly over the guide wire and appropriate blood return was obtained. Each lumen of the catheter was evacuated of air and flushed with sterile saline. The catheter was then sutured in place to the skin and a sterile dressing applied. Perfusion to the extremity distal to the point of catheter insertion was checked and found to be adequate. The patient tolerated the procedure well and there were no complications.
[2019-10-23 13:24] LABS: Glucose,Whole Blood 164 mg/dL (75-99)
--- NOTE | 2019-10-23 13:34 | PN ---
PROGRESS NOTE Jace is an 79-year-old gentleman who is admitted to the hospital with confusional state, renal insufficiency, lactic acidosis and was in respiratory distress. His echocardiogram shows an ejection fraction of 35%. He has a history of chronic systolic heart failure. He had a recent stress test in the office that was negative for ischemia, had mild troponin elevation that we thought was related to the acute systemic illness. His ejection fraction was normal prior to coming in on this admission. The LV function has deteriorated. The patient developed worsening shortness of breath through yesterday and required to be intubated and placed on vent. PHYSICAL EXAMINATION: On exam today, heart rate is 110 beats a minute. Blood pressure is 73/40. Respiratory rate 35. Chest exam reveals diminished air entry bilaterally. Heart exam reveals first and second heart sounds. No gallop. Exam of extremities did not reveal any edema. LAB: Show that the lactic acid is still elevated. Potassium is high yesterday. Potassium is 4 7, BUN is 40, creatinine is 3.5. AST, ALT are elevated. ASSESSMENT: 1. Elevated troponin secondary to chronic renal failure. 2. The patient is not in congestive heart failure. 3. New onset cardiomyopathy probably secondary to acute illness. 4. Sepsis. PLAN: Continue with supportive care, we will follow the patient with interest. MMODL / IJN: [id number] /
[2019-10-23] MEDS ORDERED: SODIUM CHLORIDE 0.9% 1,000 ML IV ONE ×3 (13:43→20:52)
[2019-10-23 14:14] LABS: Glucose,Whole Blood 163 mg/dL (75-99)
[2019-10-23] MEDS: METOPROLOL TARTRATE 12.5 MG TAB PO SCH (15:05)
[2019-10-23 15:08] LABS: Glucose,Whole Blood 146 mg/dL (75-99)
[2019-10-23] MEDS: SODIUM CHLORIDE 0.9% 150 ML with VASOPRESSIN 60 UNIT IV SCH ×2 (15:14)
--- NOTE | 2019-10-23 15:51 | P.PN ---
Progress Note - Text Progress Note Date: 10/23/19 Interval history: 79-year-old male with PMH of diabetes mellitus on oral hypoglycemics, con pascual presents the ED for altered mentation. Apparently, patient was visited by his nurse who noted an extremely high blood glucose which prompted his hospital visit. Patient is altered and he is unable to provide any meaningful history. Majority of documentation was obtained from chart review and discussion with his son. Apparently, patient has been confused and disoriented which is progressive ly been worsening over the past 2 weeks. His son reports that the patient fell a week ago and did not seek medical attention. Patient lives with his who is suffering from advanced Alzheimer's dementia and is currently in hospice. According to the son, patient drinks 4 L of soda on a daily basis. Son reports that patient is noncompliant with her diabetic diet. In the ED, vital signs showed a T low of 97.5 Fahrenheit, pulse of 102, tachypnea with respiratory rate of 28, BP of 85/49 and 89% on room air. CBC showed leukocytosis of 11 and MCV of 124.1. ABG showed pH of 7, pCO2 19, bica rbonate of 8. CMP showed sodium of 116, potassium of 5.7, chloride of 74, bicarbonate of 8, BUN 33, creatinine 2.18, glucose greater than 1875. Troponin was 0.881 with EKG showing sinus tachycardia. Urinalysis shows 4+ glucose and trace blood. Acetone was negative. CT brain was negative for hemorrhage but showed slightly hyperdense left MCA compared to right. Chest x-ray showed possible right lower lobe infiltrate. Patient is admitted to ICU for sepsis, troponin elevation and diabetic ketoacidosis. today-ICU. On the ventilator. FiO2 50 and PEEP of 5. Has of NG tube and endotracheal tube. Drips include norepinephrine, propofol, insulin, midazolam. Telemetry shows sinus rhythm. Patient is intubated earlier today. Review of systems cannot be done patient intubated Active Medications Aspirin (Aspirin) 81 mg PO DAILY [facility] Last Admin: 10/23/19 09:43 Dose: 81 mg Documented by: Chlorhexidine Gluconate (Peridex) 15 ml MUCOUS MEM BID [facility] Last Admin: 10/23/19 09:46 Dose: 15 ml Documented by: Heparin Sodium (Porcine) (Heparin) 5,000 unit SQ Q8HR [facility] Last Admin: 10/23/19 08:25 Dose: 5,000 unit Documented by: Hydromorphone HCl (Dilaudid) 1 mg IVP Q4HR PRN PRN Reason: Pain Azithromycin 500 mg/ Sodium (Chloride) 250 mls @ 250 mls/hr IVPB DAILY [facility] Last Admin: 10/23/19 09:38 Dose: 250 mls/hr Documented by: Piperacillin Sod/Tazobactam (Sod 3.375 gm/ Sodium Chloride) 100 mls @ 25 mls/hr IVPB Q8H [facility] Last Admin: 10/23/19 12:45 Dose: 25 mls/hr Documented by: Propofol 1,000 mg/ IV Solution 100 mls @ 0 mls/hr IV .Q0M [facility]; Protocol Last Admin: 10/23/19 12:49 Dose: 40 mcg/kg/min, 18.048 mls/hr Documented by: Acetaminophen 1,000 mg/ IV (Solution) 100 mls @ 400 mls/hr IVPB Q6H PRN PRN Reason: Fever Stop: 10/24/19 02:16 Last Admin: 10/23/19 14:10 Dose: 400 mls/hr Documented by: Sodium Chloride (Saline 0.9%) 1,000 mls @ 100 mls/hr IV .Q10H [facility] Last Admin: 10/23/19 08:07 Dose: 100 mls/hr Documented by: Midazolam HCl 50 mg/ Sodium (Chloride) 50 mls @ 1 mls/hr IV .Q24H [facility]; Protocol Last Titration: 10/23/19 12:30 Dose: 5 mg/hr, 5 mls/hr Documented by: Norepinephrine Bitartrate 32 (mg/ Sodium Chloride) 250 mls @ 14.805 mls/hr IV .[id number] [facility]; Protocol Last Titration: 10/23/19 14:35 Dose: 0.48 mcg/kg/min, 16.92 mls/hr Documented by: Insulin Human Regular 100 unit (/ Sodium Chloride) 101 mls @ 0 mls/hr IV .Q0M [facility]; Protocol Last Titration: 10/23/19 15:08 Dose: 1.5 unit/hr, 1.515 mls/hr Documented by: Vasopressin 60 unit/ Sodium (Chloride) 153 mls @ 4.59 mls/hr IV .Q24H [facility] Last Admin: 10/23/19 15:14 Dose: 4.59 mls/hr Documented by: Sodium Chloride (Saline 0.9%) 1,000 mls @ 999 mls/hr IV .Q1H1M [facility] Stop: 10/23/19 16:13 Miscellaneous Information (Magnesium Per Protocol) 1 each MISCELLANE DAILY PRN; Protocol PRN Reason: Per Protocol Miscellaneous Information (Pneumonia Protocol Utilized) 1 each PO ONCE PRN PRN Reason: Per Protocol Miscellaneous Information (Potassium Per Protocol) 1 each MISCELLANE DAILY PRN; Protocol PRN Reason: Per Protocol Miscellaneous Information (Phosphorus Per Protocol) 1 each MISCELLANE DAILY PRN; Protocol PRN Reason: Per Protocol Naloxone HCl (Narcan) 0.2 mg IV Q2M PRN PRN Reason: Opioid Reversal Nitroglycerin (Nitrostat) 0.4 mg SUBLINGUAL Q5M PRN PRN Reason: Chest Pain Pantoprazole Sodium (Protonix) 40 mg IV DAILY [facility] Last Admin: 10/23/19 09:47 Dose: 40 mg Documented by: Pravastatin Sodium (Pravachol) 40 mg PO DAILY [facility] Last Admin: 10/23/19 09:47 Dose: 40 mg Documented by: On examination: VITAL SIGNS: [101.7, 112, 35, 79/52, 98% on the ventilator] GENERAL APPEARANCE: laying in bed, sedated, intubated. HEENT: Normal external appearance of nose and ear. Oral cavity -endotracheal tube EYES: Pupils equal. Conjunctiva normal. NECK: JVD unable to assess. Mass not palpable. RESPIRATORY: Respiratory effort increased. Lungs -decreased breath sounds CARDIOVASCULAR: First and second sounds normal. No edema. ABDOMEN: Soft. Liver and spleen not palpable. No tenderness. No mass palpable. PSYCHIATRY: unable to assess, patient sedated INVESTIGATIONS, reviewed in the clinical context: white count 11.7 hemoglobin 13.1 platelets 110 potassium 4.7 bun 40 creatine 2.58 AST 3453, ALT 1264, albumin 2.2 computed tomography scan of the abdomen and pelvis without contrast-dilated multiple loops of small bowel some free fluid in the paracolic gutter bilateral lower lobe pulmonary infiltrates, fusiform 4.4 cm lower abdominal aortic aneurysm with aortoiliac endograft multiple diverticula of the sigmoid colon. Mild wall thickening of the ascending colon. Previous testing: White count 11 hemoglobin 13.7 platelets 383 Sodium 116, bicarb 8, bun 33, creatinine 2.18 glucose 1875 troponin I 0.88 1 Rusty-19 PCR-not detected computed tomography scan of the brain without contrast-no acute degenerative changes Ultrasound kidney-limited exam 2-D echocardiogram-EF 30-35%, anteroseptal apical hypokinesia Assessment: -acute nonketotic hyperosmolar diabetes with severe hyperglycemia, POA -Acute small bowel obstruction, possibly ileus -Acute hypoxic respiratory failure requiring mechanical ventilator support -Acute metabolic encephalopathy from above -Alzheimer's dementia -Pseudohyponatremia from severe hyperglycemia -4.4 cm distal abdominal aortic aneurysm with the endoluminal stent graft -Peripheral arterial disease -Acute shock liver secondary to hypotensive shock -Chronic congestive heart failure from systolic dysfunction EF 30-35% -Sepsis with septic shock, possible community acquired pneumonia -Metabolic encephalopathy likely due to the above -Non-ST elevation [place] likely type II from demand ischemia, POA -Acute kidney injury likely ATN -Possibly chronic kidney disease -essential hypertension Plan: Patient remains rather ill. In the ICU. Current drips include norepinephrine, propofol, insulin and midazolam.antibiotics include azithromycin, insulin,prognosis guarded.patient has an NG tube. attached to suction.
[2019-10-23 16:39] LABS: Glucose,Whole Blood 170 mg/dL (75-99)
[2019-10-23 17:09] LABS: Glucose,Whole Blood 166 mg/dL (75-99)
[2019-10-23] MEDS ORDERED: LEVOFLOXACIN 750 MG TAB PO SCH (18:00)
[2019-10-23 18:17] LABS: Glucose,Whole Blood 161 mg/dL (75-99)
[2019-10-23 18:53] LABS: Glucose,Whole Blood 160 mg/dL (75-99)
[2019-10-23 19:59] LABS: Potassium 4.8 mmol/L (3.5-5.1)
[2019-10-23] MEDS: HYDROmorphone 1 MG/ML 1 ML SYRINGE IVP PRN (20:06)
[2019-10-23 20:08] LABS: Calcium 6.4 mg/dL (8.4-10.2)
[2019-10-23 20:29] LABS: Glucose,Whole Blood 182 mg/dL (75-99)
[2019-10-23] MEDS ORDERED: CALCIUM GLUCONATE 1 GM in SODIUM CHLORIDE 0.9% 100 ML IVPB ONE (20:48)
[2019-10-23] MEDS ORDERED: VANCOMYCIN 1,000 MG in SODIUM CHLORIDE 0.9% 250 ML IVPB STA (20:53)
[2019-10-23 21:30] LABS: Glucose,Whole Blood 178 mg/dL (75-99)
[2019-10-23 22:16] LABS: Glucose,Whole Blood 173 mg/dL (75-99)
[2019-10-23 23:18] LABS: Glucose,Whole Blood 162 mg/dL (75-99)
[2019-10-23] MEDS: metroNIDAZOLE-NS PMX 500 MG in SALINE 1 100ML.BAG IVPB SCH (23:35)
[2019-10-24] MEDS: HEPARIN SODIUM,PORCINE 5,000 UNIT/ML 1 ML VIAL SQ SCH ×4 (00:05→23:44)
[2019-10-24 00:12] LABS: Glucose,Whole Blood 167 mg/dL (75-99)
[2019-10-24] MEDS: MIDAZOLAM HCL 50 MG in SODIUM CHLORIDE 0.9% 40 ML IV SCH ×4 (00:15→23:42)
[2019-10-24] MEDS: ACETAMINOPHEN IV (For NPO) 1,000 MG in EMPTY BAG 1 BAG IVPB PRN (01:28)
[2019-10-24] MEDS: HYDROmorphone 1 MG/ML 1 ML SYRINGE IVP PRN ×2 (01:40→14:51)
[2019-10-24] MEDS: NOREPINEPHRINE 32 MG in SODIUM CHLORIDE 0.9% 218 ML IV SCH ×2 (02:07→17:26)
[2019-10-24 02:11] LABS: Glucose,Whole Blood 175 mg/dL (75-99)
[2019-10-24] MEDS: SODIUM CHLORIDE 0.9% 1,000 ML IV SCH ×2 (03:22→10:20)
[2019-10-24] MEDS: PIPERACILLIN-TAZOBACTAM 3.375 GM in SODIUM CHLORIDE 0.9% 100 ML IVPB SCH ×3 (03:37→19:52)
[2019-10-24 04:12] LABS: Glucose,Whole Blood 177 mg/dL (75-99)
[2019-10-24 04:35] LABS: HCT 37.4 % (39.0-53.0); HGB 12.5 gm/dL (13.0-17.5); Hypochromasia Slight; MCH 33.9 pg (25.0-35.0); MCHC 33.5 g/dL (31.0-37.0); MCV 101.3 fL (80.0-100.0); Macrocytosis Slight; Mean Platelet Volume 10.4; RDW 13.7 % (11.5-15.5)
[2019-10-24 04:56] LABS: ABG Base Excess -9.9 mmol/L; ABG HCO3 15 mmol/L (21-25); ABG Oxygen Saturation 93.4 % (94-97); ABG PCO2 25 mmHg (35-45); ABG PH 7.39 (7.35-7.45); ABG PO2 67 mmHg (83-108); ABG TCO2 16 mmol/L (19-24)
[2019-10-24 05:05] LABS: Allen Test Performed? no
[2019-10-24 05:26] LABS: Albumin 1.9 g/dL (3.5-5.0); Calcium 6.7 mg/dL (8.4-10.2); Potassium 4.5 mmol/L (3.5-5.1); Total Bilirubin 0.9 mg/dL (0.2-1.3); Total Protein 4.1 g/dL (6.3-8.2)
[2019-10-24 05:43] LABS: Band Neutrophils % 33 %; Lymphocytes # (M) 0.62 k/uL (1.0-4.8); Metamyelocytes # (M) 0.21 k/uL (0); Metamyelocytes % 2 %; Neutrophils % (M) 59 %; Nucleated Red Blood Cells 3 /100 WBC (0-0); Total Cells Counted 200; WBC 10.3 k/uL (3.8-10.6)
[2019-10-24 05:44] LABS: Anisocytosis (M) Present; Polychromasia Present
[2019-10-24 05:47] LABS: Platelet Count 89 k/uL (150-450)
[2019-10-24 05:54] LABS: Glucose,Whole Blood 153 mg/dL (75-99)
[2019-10-24 06:56] LABS: Glucose,Whole Blood 167 mg/dL (75-99)
--- NOTE | 2019-10-24 07:14 | XR ---
EXAMINATION TYPE: XR chest 1V portable DATE OF EXAM: 10/24/2019 COMPARISON: 10/23/2019 HISTORY: Post central line placement TECHNIQUE: Single frontal view of the chest is obtained. FINDINGS: ET and NG tube and central line stable. Bilateral areas of consolidation are unchanged. No sizable pneumothorax. Arthropathy shoulders. Heart size stable. Limited inspiration. IMPRESSION: 1. Stable bilateral infiltrate or atelectasis correlate clinically.
[2019-10-24 07:56] LABS: Glucose,Whole Blood 171 mg/dL (75-99)
[2019-10-24] MEDS: metroNIDAZOLE-NS PMX 500 MG in SALINE 1 100ML.BAG IVPB SCH ×3 (08:12→23:43)
[2019-10-24] MEDS: CHLORHEXIDINE GLUCONATE 15 ML CUP MUCOUS MEM SCH ×2 (08:42→20:28)
[2019-10-24] MEDS: AZITHROMYCIN 500 MG in SODIUM CHLORIDE 0.9% 250 ML IVPB SCH (08:43)
[2019-10-24] MEDS: PANTOPRAZOLE 40 MG/10 ML VIAL IV SCH (08:43)
[2019-10-24] MEDS: PRAVASTATIN SODIUM 40 MG TAB PO SCH (08:43)
[2019-10-24] MEDS: ASPIRIN 81 MG PO SCH (08:43)
[2019-10-24] MEDS: IOPAMIDOL CONTRAST (ORAL USE) VIAL PO PRN ×2 (09:54→10:53)
[2019-10-24 10:10] LABS: Glucose,Whole Blood 182 mg/dL (75-99)
[2019-10-24 11:00] LABS: Glucose,Whole Blood 186 mg/dL (75-99)
--- NOTE | 2019-10-24 12:05 | P.PN ---
Subjective Patient is seen in follow-up for acute kidney injury. Remains intubated on 40% FiO2. Requiring high doses of Levophed and also on vasopressin. Nonoliguric. Renal function a little better today. Going for CAT scan of the abdomen and pelvis today. Vital signs are stable. Currently on vasopressor support. General: The patient appeared well nourished and normally developed. HEENT: Head exam is unremarkable. Neck is without jugular venous distension. Intubated. LUNGS: Lungs are clear to auscultation and percussion. Breath sounds decreased. HEART: Rate and Rhythm are regular. ABDOMEN: Soft. Distention noted. EXTREMITITES: No clubbing, cyanosis, or edema. Objective - Vital Signs Vital signs: Vital Signs Temp 99.8 F H 10/24/19 08:00 Pulse 97 10/24/19 11:00 Resp 34 H 10/24/19 11:00 BP 92/57 10/24/19 11:00 Pulse Ox 94 L 10/24/19 11:00 Intake & Output 10/23/19 10/24/19 10/24/19 18:59 06:59 18:59 Intake Total 4688.155 3475.834 568.611 Output Total 2430 2140 1200 Balance 2258.155 1335.834 -631.389 Weight 75.2 kg 81.9 kg 81.9 kg Intake: IV 4250 1400 ACETAMINOPHEN IV (For NPO 400 100 ) 1,000 mg In Empty Bag 1 bag @ 400 mls/hr IVPB Q6H PRN Rx#:[id number] Dextrose 5%-0.45% NaCl 1, 150 000 ml @ 150 mls/hr IV . Q6H40M [facility] Rx#:[id number] Piperacillin-Tazobactam 3 150 200 .375 gm In Sodium Chloride 0.9% 100 ml @ 25 mls/hr IVPB Q8H [facility] Rx#: [id number] Sodium Bicarb (amps) 100 Sodium Chloride 0.9% 1, 1550 000 ml @ 999 mls/hr IV . Q1H1M [facility] Rx#:[id number] Sodium Chloride 0.9% 1, 1000 000 ml @ 999 mls/hr IV . Q1H1M [facility] Rx#:[id number] Sodium Chloride 0.9% 1, 1000 1000 000 ml @ 999 mls/hr IV . Q1H1M [facility] Rx#:[id number] Intake, IV Titration 100.392 5314.834 568.611 Amount Calcium Gluconate 1 gm In 100 Sodium Chloride 0.9% 100 ml @ 100 mls/hr IVPB ONCE [facility] Rx#:[id number] Insulin Regular 100 unit 17.024 In Sodium Chloride 0.9% 100 ml @ 0.1 UNITS/KG/HR 6.929 mls/hr IV .[id number] [facility] Rx#:[id number] Insulin Regular 100 unit 9.334 30.324 8.164 In Sodium Chloride 0.9% 100 ml @ Per Protocol IV .Q0M [facility] Rx#:[id number] Midazolam HCl 50 mg In 2.4 55.833 37.417 Sodium Chloride 0.9% 40 ml @ 1 MG/HR 1 mls/hr IV .Q24H [facility] Rx#:[id number] Norepinephrine 32 mg In 132.042 139.677 23.03 Sodium Chloride 0.9% 218 ml @ 0.42 MCG/KG/MIN 14. 805 mls/hr IV .[id number] [facility] Rx#:[id number] Piperacillin-Tazobactam 3 100 .375 gm In Sodium Chloride 0.9% 100 ml @ 25 mls/hr IVPB Q8H [facility] Rx#: [id number] Propofol 1,000 mg In 177.355 Empty Bag 1 bag @ Titrate IV .Q0M [facility] Rx#: [id number] Sodium Chloride 0.9% 1, 1400 500 000 ml @ 100 mls/hr IV . Q10H [facility] Rx#:[id number] Vancomycin 1,000 mg In 250 Sodium Chloride 0.9% 250 ml @ 125 mls/hr IVPB ONCE [facility] Rx#:[id number] metroNIDAZOLE-NS PMX 500 100 mg In Saline 1 100ml.bag @ 100 mls/hr IVPB Q8HR [facility] Rx#:[id number] Output: Gastric Drainage 100 450 Urine 2330 2140 750 Other: Voiding Method Indwelling Catheter Indwelling Catheter Indwelling Catheter ABP, PAP, CO, CI - Last Documented Arterial Blood Pressure 102/51 - Labs CBC & Chem 7: 10/24/19 04:10 10/24/19 04:10 Labs: Abnormal Lab Results - Last 24 Hours (Table) 10/23/19 10/23/19 10/23/19 Range/Units 07:29 13:21 14:12 RBC (4.30-5.90) m/uL Hgb (13.0-17.5) gm/dL Hct (39.0-53.0) % MCV (80.0-100.0) fL Plt Count (150-450) k/uL Neutrophils # (Manual) (1.3-7.7) k/uL Lymphocytes # (Manual) (1.0-4.8) k/uL Metamyelocytes # (Man) (0) k/uL Nucleated RBCs (0-0) /100 WBC ABG pCO2 (35-45) mmHg ABG pO2 (83-108) mmHg ABG HCO3 (21-25) mmol/L ABG Total CO2 (19-24) mmol/L ABG O2 Saturation (94-97) % ABG Lactic Acid (0.5-1.6) mmol/L Sodium (137-145) mmol/L Chloride (98-107) mmol/L Carbon Dioxide (22-30) mmol/L BUN (9-20) mg/dL Creatinine (0.66-1.25) mg/dL Glucose (74-99) mg/dL POC Glucose (mg/dL) 164 H 163 H (75-99) mg/dL Plasma Lactic Acid Fredrick (0.7-2.0) mmol/L Calcium (8.4-10.2) mg/dL AST (17-59) U/L ALT (4-49) U/L Total Protein (6.3-8.2) g/dL Albumin (3.5-5.0) g/dL Procalcitonin 10.64 H (0.02-0.09) ng/mL 10/23/19 10/23/19 10/23/19 Range/Units 15:06 16:35 17:07 RBC (4.30-5.90) m/uL Hgb (13.0-17.5) gm/dL Hct (39.0-53.0) % MCV (80.0-100.0) fL Plt Count (150-450) k/uL Neutrophils # (Manual) (1.3-7.7) k/uL Lymphocytes # (Manual) (1.0-4.8) k/uL Metamyelocytes # (Man) (0) k/uL Nucleated RBCs (0-0) /100 WBC ABG pCO2 (35-45) mmHg ABG pO2 (83-108) mmHg ABG HCO3 (21-25) mmol/L ABG Total CO2 (19-24) mmol/L ABG O2 Saturation (94-97) % ABG Lactic Acid (0.5-1.6) mmol/L Sodium (137-145) mmol/L Chloride (98-107) mmol/L Carbon Dioxide (22-30) mmol/L BUN (9-20) mg/dL Creatinine (0.66-1.25) mg/dL Glucose (74-99) mg/dL POC Glucose (mg/dL) 146 H 170 H 166 H (75-99) mg/dL Plasma Lactic Acid Fredrick (0.7-2.0) mmol/L Calcium (8.4-10.2) mg/dL AST (17-59) U/L ALT (4-49) U/L Total Protein (6.3-8.2) g/dL Albumin (3.5-5.0) g/dL Procalcitonin (0.02-0.09) ng/mL 10/23/19 10/23/19 10/23/19 Range/Units 18:15 18:52 19:28 RBC (4.30-5.90) m/uL Hgb (13.0-17.5) gm/dL Hct (39.0-53.0) % MCV (80.0-100.0) fL Plt Count (150-450) k/uL Neutrophils # (Manual) (1.3-7.7) k/uL Lymphocytes # (Manual) (1.0-4.8) k/uL Metamyelocytes # (Man) (0) k/uL Nucleated RBCs (0-0) /100 WBC ABG pCO2 (35-45) mmHg ABG pO2 (83-108) mmHg ABG HCO3 (21-25) mmol/L ABG Total CO2 (19-24) mmol/L ABG O2 Saturation (94-97) % ABG Lactic Acid (0.5-1.6) mmol/L Sodium 146 H (137-145) mmol/L Chloride 119 H (98-107) mmol/L Carbon Dioxide 15 L (22-30) mmol/L BUN 39 H (9-20) mg/dL Creatinine 2.44 H (0.66-1.25) mg/dL Glucose 176 H (74-99) mg/dL POC Glucose (mg/dL) 161 H 160 H (75-99) mg/dL Plasma Lactic Acid Fredrick (0.7-2.0) mmol/L Calcium 6.4 L* (8.4-10.2) mg/dL AST (17-59) U/L ALT (4-49) U/L Total Protein (6.3-8.2) g/dL Albumin (3.5-5.0) g/dL Procalcitonin (0.02-0.09) ng/mL 10/23/19 10/23/19 10/23/19 Range/Units 20:23 20:25 21:28 RBC (4.30-5.90) m/uL Hgb (13.0-17.5) gm/dL Hct (39.0-53.0) % MCV (80.0-100.0) fL Plt Count (150-450) k/uL Neutrophils # (Manual) (1.3-7.7) k/uL Lymphocytes # (Manual) (1.0-4.8) k/uL Metamyelocytes # (Man) (0) k/uL Nucleated RBCs (0-0) /100 WBC ABG pCO2 (35-45) mmHg ABG pO2 (83-108) mmHg ABG HCO3 (21-25) mmol/L ABG Total CO2 (19-24) mmol/L ABG O2 Saturation (94-97) % ABG Lactic Acid (0.5-1.6) mmol/L Sodium (137-145) mmol/L Chloride (98-107) mmol/L Carbon Dioxide (22-30) mmol/L BUN (9-20) mg/dL Creatinine (0.66-1.25) mg/dL Glucose (74-99) mg/dL POC Glucose (mg/dL) 182 H 178 H (75-99) mg/dL Plasma Lactic Acid Fredrick 3.4 H* (0.7-2.0) mmol/L Calcium (8.4-10.2) mg/dL AST (17-59) U/L ALT (4-49) U/L Total Protein (6.3-8.2) g/dL Albumin (3.5-5.0) g/dL Procalcitonin (0.02-0.09) ng/mL 10/23/19 10/23/19 10/24/19 Range/Units 22:15 23:16 00:10 RBC (4.30-5.90) m/uL Hgb (13.0-17.5) gm/dL Hct (39.0-53.0) % MCV (80.0-100.0) fL Plt Count (150-450) k/uL Neutrophils # (Manual) (1.3-7.7) k/uL Lymphocytes # (Manual) (1.0-4.8) k/uL Metamyelocytes # (Man) (0) k/uL Nucleated RBCs (0-0) /100 WBC ABG pCO2 (35-45) mmHg ABG pO2 (83-108) mmHg ABG HCO3 (21-25) mmol/L ABG Total CO2 (19-24) mmol/L ABG O2 Saturation (94-97) % ABG Lactic Acid (0.5-1.6) mmol/L Sodium (137-145) mmol/L Chloride (98-107) mmol/L Carbon Dioxide (22-30) mmol/L BUN (9-20) mg/dL Creatinine (0.66-1.25) mg/dL Glucose (74-99) mg/dL POC Glucose (mg/dL) 173 H 162 H 167 H (75-99) mg/dL Plasma Lactic Acid Fredrick (0.7-2.0) mmol/L Calcium (8.4-10.2) mg/dL AST (17-59) U/L ALT (4-49) U/L Total Protein (6.3-8.2) g/dL Albumin (3.5-5.0) g/dL Procalcitonin (0.02-0.09) ng/mL 10/24/19 10/24/19 10/24/19 Range/Units 00:20 02:09 04:10 RBC 3.70 L (4.30-5.90) m/uL Hgb 12.5 L (13.0-17.5) gm/dL Hct 37.4 L (39.0-53.0) % MCV 101.3 H (80.0-100.0) fL Plt Count 89 L (150-450) k/uL Neutrophils # (Manual) 9.40 H (1.3-7.7) k/uL Lymphocytes # (Manual) 0.62 L (1.0-4.8) k/uL Metamyelocytes # (Man) 0.21 H (0) k/uL Nucleated RBCs 3 H (0-0) /100 WBC ABG pCO2 (35-45) mmHg ABG pO2 (83-108) mmHg ABG HCO3 (21-25) mmol/L ABG Total CO2 (19-24) mmol/L ABG O2 Saturation (94-97) % ABG Lactic Acid (0.5-1.6) mmol/L Sodium (137-145) mmol/L Chloride (98-107) mmol/L Carbon Dioxide (22-30) mmol/L BUN (9-20) mg/dL Creatinine (0.66-1.25) mg/dL Glucose (74-99) mg/dL POC Glucose (mg/dL) 175 H (75-99) mg/dL Plasma Lactic Acid Fredrick 3.2 H* (0.7-2.0) mmol/L Calcium (8.4-10.2) mg/dL AST (17-59) U/L ALT (4-49) U/L Total Protein (6.3-8.2) g/dL Albumin (3.5-5.0) g/dL Procalcitonin (0.02-0.09) ng/mL 10/24/19 10/24/19 10/24/19 Range/Units 04:10 04:10 04:11 RBC (4.30-5.90) m/uL Hgb (13.0-17.5) gm/dL Hct (39.0-53.0) % MCV (80.0-100.0) fL Plt Count (150-450) k/uL Neutrophils # (Manual) (1.3-7.7) k/uL Lymphocytes # (Manual) (1.0-4.8) k/uL Metamyelocytes # (Man) (0) k/uL Nucleated RBCs (0-0) /100 WBC ABG pCO2 (35-45) mmHg ABG pO2 (83-108) mmHg ABG HCO3 (21-25) mmol/L ABG Total CO2 (19-24) mmol/L ABG O2 Saturation (94-97) % ABG Lactic Acid 3.0 H* (0.5-1.6) mmol/L Sodium 146 H (137-145) mmol/L Chloride 120 H (98-107) mmol/L Carbon Dioxide 15 L (22-30) mmol/L BUN 39 H (9-20) mg/dL Creatinine 2.38 H (0.66-1.25) mg/dL Glucose 180 H (74-99) mg/dL POC Glucose (mg/dL) 177 H (75-99) mg/dL Plasma Lactic Acid Fredrick (0.7-2.0) mmol/L Calcium 6.7 L (8.4-10.2) mg/dL AST 2153 H (17-59) U/L ALT 1107 H (4-49) U/L Total Protein 4.1 L (6.3-8.2) g/dL Albumin 1.9 L (3.5-5.0) g/dL Procalcitonin (0.02-0.09) ng/mL 10/24/19 10/24/19 10/24/19 Range/Units 04:55 05:52 06:55 RBC (4.30-5.90) m/uL Hgb (13.0-17.5) gm/dL Hct (39.0-53.0) % MCV (80.0-100.0) fL Plt Count (150-450) k/uL Neutrophils # (Manual) (1.3-7.7) k/uL Lymphocytes # (Manual) (1.0-4.8) k/uL Metamyelocytes # (Man) (0) k/uL Nucleated RBCs (0-0) /100 WBC ABG pCO2 25 L (35-45) mmHg ABG pO2 67 L (83-108) mmHg ABG HCO3 15 L (21-25) mmol/L ABG Total CO2 16 L (19-24) mmol/L ABG O2 Saturation 93.4 L (94-97) % ABG Lactic Acid (0.5-1.6) mmol/L Sodium (137-145) mmol/L Chloride (98-107) mmol/L Carbon Dioxide (22-30) mmol/L BUN (9-20) mg/dL Creatinine (0.66-1.25) mg/dL Glucose (74-99) mg/dL POC Glucose (mg/dL) 153 H 167 H (75-99) mg/dL Plasma Lactic Acid Fredrick (0.7-2.0) mmol/L Calcium (8.4-10.2) mg/dL AST (17-59) U/L ALT (4-49) U/L Total Protein (6.3-8.2) g/dL Albumin (3.5-5.0) g/dL Procalcitonin (0.02-0.09) ng/mL 10/24/19 10/24/19 10/24/19 Range/Units 07:55 10:08 10:59 RBC (4.30-5.90) m/uL Hgb (13.0-17.5) gm/dL Hct (39.0-53.0) % MCV (80.0-100.0) fL Plt Count (150-450) k/uL Neutrophils # (Manual) (1.3-7.7) k/uL Lymphocytes # (Manual) (1.0-4.8) k/uL Metamyelocytes # (Man) (0) k/uL Nucleated RBCs (0-0) /100 WBC ABG pCO2 (35-45) mmHg ABG pO2 (83-108) mmHg ABG HCO3 (21-25) mmol/L ABG Total CO2 (19-24) mmol/L ABG O2 Saturation (94-97) % ABG Lactic Acid (0.5-1.6) mmol/L Sodium (137-145) mmol/L Chloride (98-107) mmol/L Carbon Dioxide (22-30) mmol/L BUN (9-20) mg/dL Creatinine (0.66-1.25) mg/dL Glucose (74-99) mg/dL POC Glucose (mg/dL) 171 H 182 H 186 H (75-99) mg/dL Plasma Lactic Acid Fredrick (0.7-2.0) mmol/L Calcium (8.4-10.2) mg/dL AST (17-59) U/L ALT (4-49) U/L Total Protein (6.3-8.2) g/dL Albumin (3.5-5.0) g/dL Procalcitonin (0.02-0.09) ng/mL Microbiology - Last 24 Hours (Table) 10/21/19 18:20 Blood Culture - Preliminary Blood No Growth after 48 hours Assessment and Plan Plan: Assessment: 1. Acute kidney injury secondary to ATN secondary to severe intravascular volume depletion due to hyperglycemia and further worsened with hypotension. Creatinine peaked at 2.7 this admission and is 2.38 today. 2. Rule out chronic any disease. Creatinine was in the range of 1.2-1.5 in July 2018. No proteinuria on UA. 3. Severe metabolic acidosis secondary to DKA. 4. DKA s/p insulin drip. 5. Hypertonic hyponatremia. Improving with improved blood sugars. In fact patient's corrected sodium was actually 154 on admission. Better. 6. Possible pneumonia maintained on antibiotics. 7. Hyperkalemia secondary to metabolic acidosis and acute kidney injury. Improved. 8. Ileus. Surgery following. Scheduled for CAT scan of the abdomen and pelvis today. 9. Hypophosphatemia due to poor oral intake. Better post replacement. Plan: Discontinue normal saline and start sodium bicarbonate drip to be run at 75 mL an hour for 24 hours. Avoid nephrotoxins. Wean FiO2 and vasopressors. Continue to monitor renal function and urine output. Follow-up CAT scan results.
--- NOTE | 2019-10-24 12:09 | P.PN ---
Subjective Progress Note Date: 10/24/19 80-year-old male patient known history of dementia, diabetes hypertension osteoarthritis in addition to abdominal aortic aneurysm, presented to the ED with altered mentation and severe dehydration. The patient's was noted to have elevated blood sugars at home which prompted this hospital visit. He was unable to provide any history at time of admission. He was confused and disoriented and his condition was progressively getting worse over this past few weeks. He apparently had generalized weakness, falls, and he was not seeking any medical attention. He has Alzheimer's dementia. His has Alzheimer's dementia also. Apparently his oral intake has been minimal and the patient was drinking only 4 L of soda on a daily basis. He has been noncompliant his diabetic medications also. A blood sugar of more than 1800. Sodium was 116. Potassium was 5.7 with a chloride of 74 and a serum bicarbonate 8 with an anion gap of 34. Creatinine was 2.4 with a BUN of 33. The serum lactate was 11.7. Troponin was 0.8. Phosphorus was 8.8. Lipase was 229. UA showed +4 glucose and the serum acetone was negative. The patient received a total of 4 L of IV fluids in the emergency department. He was started on an insulin drip. Currently the patient is on half-normal saline with 20 mEq of potassium. The patient metabolic acidosis improving. Based on the follow-up blood gases the pH was 7.0 and septal 7.13. Serum bicarb is also on the rise. The serum pCO2 is 26. Troponin 38. This was done and FiO2 of 36%. Sodium level improved and septal 131 and a potassium level is at 3.8. Anion gap is improving is down to 28. Creatinine is still at 2.1. Most recent blood sugar shows that the sugar is still elevated above 600 with a serum measurement of 1230. The chest x-ray shows some sub segmental atelectasis in the right lower lobe. CAT scan of the brain shows no evidence of any acute hemorrhage. There is some degenerative changes and nonspecific white matter changes consistent with remote ischemia. EKG showing sinus tachycardia along with Q waves over the anteroseptal leads consistent with an old infarct. Heart rate is around 102. On today's evaluation of 10/22/2019, the patient is still lethargic and somnolent and encephalopathic. He is unable to volunteer any history. He has dementia. Furthermore there has been significant metabolic disturbances, leading to his impaired mentation. In terms of his blood sugar control, the patient has been on insulin drip at 3 units an hour. His IV fluids have been running in the form of D5 half-normal saline along with 20 mEq of potassium at the rate of 150 mL an hour. The patient was receiving another 2 L of IV fluid bolus based on the fact that it looks quite dry with very dry mucosal membranes on today's evaluation. In terms of his blood sugar control, the blood sugar was steadily going down and after the blood sugar went down below 300 was switched him to a D5 half-normal saline solution. His anion gap is at 10. The serum bicarb is at 18. His lactic acid level has dropped down to 6.0. His troponin peaked at 2.2. Denies having any chest pain. Note that his based on troponin was at 0.8. His EKG showed old Q-wave changes over the anteroseptal leads and echocardiac Tito was done today and the patient was found to have a ejection fraction estimated to be around 30-35% along with anteroseptal and apical hypokinesis. No evidence of an aortic valve stenosis. Unable to estimate the right-sided pressures. Unable to have a good visualization of the rest of the valves. His white cell count of 15.4. His antibiotic coverage includes a combination of Rocephin and Zithromax and Diflucan for now. There is some erythema along the penile tip and the Maradiaga catheter is in place. Repeat chest x-ray from today shows atelectatic changes in the right lower lobe. No other significant abnormalities have been noted. The patient is currently on 4 L of oxygen by nasal cannula with a pulse ox of 98%. He still has some underlying sinus tachycardia. On today's evaluation of 10/23/2019 the patient's condition decompensated. I have already contacted the son and updated them on his father's condition. Note that by yesterday afternoon, the patient became progressively more restless, agitated, shortness of breath, and he was also indicating the possibility of abdominal distention and pain. He was hard to communicate with him as the patient was not providing any meaningful information and he was altered mentally. Nevertheless, we suspected that the patient was having increased abdominal pain and discomfort. At that point, decided to insert an NG tube and immediately approximately a liter of gastric juice was obtained as a return. Abdomen remained quite tender and distended. At that point, the patient was also becoming more hypotensive. He was given more IV fluids. He was intubated and placed on a mechanical ventilator. Post intubation, the patient became hypotensive and he was started on IV pressors. Blood gases was noted. Chest x- ray was noted. The patient was developing a right lower lobe pulmonary infiltration. He was taken down for a CAT scan of the abdomen and pelvis and the CAT scan showed evidence of a infiltrate in the right lung base and fatty infiltration of the liver and some multiple calcified gallstones and the bile ducts were not dilated. At the same time, the CAT scan showed a fusiform 4.4 cm lower abdominal aortic aneurysm. There was no evidence of any retroperitoneal lymphadenopathy. There was multiple diverticula in the sigmoid colon and multiple dilated air fluid filled loops of the small bowel and the small bowel was dilated up to 4 cm in size. There was also mild wall thickening of the ascending colon. There was also minimal fat stranding around the sigmoid colon. There was osteoarthritis of the right hip. Antibiotics were modified and the patient was started on IV Zosyn. This morning, the patient is sedated with propofol at 20 g. This is to be switched to Versed at the patient's triglyceride level came up above 500. The patient is receiving IV fluids in the form of normal saline at rate of 100 mL an hour. His urine output is diminished and the patient's creatinine is at 2.5. The neck fluid balance over the past 24 hours has been +5.3 L. The patient is currently on norepinephrine infusion running at 0.4 mcg/kg per minute. The patient is also on insulin drip at 9 units an hour. Noted the blood sugar control is improved and the patient's lactic acid level was also improving it was down to 3.7. During the course of this treatment, the patient developed also a shock liver with elevated AST and ALT. He developed an acute kidney injury on top of his chronic kidney failure with a creatinine maxing at 2.7 down to 2.5. The patient is currently on a mechanical ventilator on assist control mode at the rate of 28 with tidal volume of 500 and FiO2 of 60% with a PEEP of 5. Morning blood gases showed a pH of 7.39 with a pCO2 of 26 and pO2 of 185. Morning chest x-ray showed right lower lobe pulmonary infiltration and subsequently a triple-lumen catheter was inserted and the supportive living catheter was inserted without any complications. Surgical consultation was also obtained regarding the abdominal findings. On 10/24/2019, the patient remains critically ill. The patient remains in shock and this is most likely a septic shock following an acute hypovolemic shock. The patient initially presented with HHS. Subsequently the patient started acting septic and the source is most likely the abdomen. The patient had a elevated TROPONIN level. Lactic acid levels were elevated and the patient had abdominal pain and distention. NG tube was inserted and a CAT scan of the abdomen was done that showed findings suggesting small bowel obstruction and some inflammatory changes involving the ascending colon and the sigmoid. Nevertheless, there was no evidence of any acute abdomen or pneumoperitoneum with ischemic bowel. The patient was kept on Zosyn and Flagyl was added. He did have difficulties with his hemodynamics and the patient was on and off becoming hypotensive and he was getting IV fluids to maintain a CVP above 10. The patient is currently receiving normal saline at the rate of 100 mL an hour. He is also on vasopressin at physiologic dose of 0.03 units per minute and the patient is on norepinephrine running at 0.38 g per KG per minute. Abdomen is still slightly distended and the patient is a bit tender and he can grimace upon abdominal [id number] white him being sedated with Versed which is running at 6 mg an hour. Gen. surgery will be asked to evaluate this patient. NG tube is in place and output over the past 24 hours has been in the order of 400 mL of gastric material. No bowel movements yet. He is having episodes of fever and the patient has had a temperature max of 11.1 and a temperature is down to 99.8. The patient had 2 additional sets of blood cultures sent patient was given a dose of vancomycin yesterday. This was done pending further cultur es. Meanwhile, the patient remains on a mechanical ventilator. This morning, he remained on assist control mode with a tidal volume of 500 and FiO2 of 40% with a PEEP of 5. Chest x-ray is showing stable bilateral pulmonary infiltrates and atelectatic changes in lung bases. ET tube in good location so in the OG- tube. Her blood gases showed a pH of 7.39 with a pCO2 of 25 and pO2 of 67 and this was on above-mentioned ventilator setting. Lactic acid level is gradually dropped down to 3.0. The patient has shock liver. LFTs are considerably abnormal and the numbers are improving. AST is down to 2153 and ALT is down to 1107. As stated, neck yesterday dropped down to 3.2, the creatinine is still elevated at 2.2 with a BUN of 39 and the patient has a mild anion gap metabolic acidosis with a gap of 11 which is improved and his serum bicarbonate of 15. Objective - Vital Signs Vital signs: Vital Signs Temp 99.8 F H 10/24/19 08:00 Pulse 97 10/24/19 11:00 Resp 34 H 10/24/19 11:00 BP 92/57 10/24/19 11:00 Pulse Ox 94 L 10/24/19 11:00 Intake & Output 10/23/19 10/24/19 10/24/19 18:59 06:59 18:59 Intake Total 4688.155 3475.834 568.611 Output Total 2430 2140 1200 Balance 2258.155 1335.834 -631.389 Weight 75.2 kg 81.9 kg 81.9 kg Intake: IV 4250 1400 ACETAMINOPHEN IV (For NPO 400 100 ) 1,000 mg In Empty Bag 1 bag @ 400 mls/hr IVPB Q6H PRN Rx#:[id number] Dextrose 5%-0.45% NaCl 1, 150 000 ml @ 150 mls/hr IV . Q6H40M [facility] Rx#:[id number] Piperacillin-Tazobactam 3 150 200 .375 gm In Sodium Chloride 0.9% 100 ml @ 25 mls/hr IVPB Q8H [facility] Rx#: [id number] Sodium Bicarb (amps) 100 Sodium Chloride 0.9% 1, 1550 000 ml @ 999 mls/hr IV . Q1H1M [facility] Rx#:[id number] Sodium Chloride 0.9% 1, 1000 000 ml @ 999 mls/hr IV . Q1H1M [facility] Rx#:[id number] Sodium Chloride 0.9% 1, 1000 1000 000 ml @ 999 mls/hr IV . Q1H1M [facility] Rx#:[id number] Intake, IV Titration 222.912 2905.834 568.611 Amount Calcium Gluconate 1 gm In 100 Sodium Chloride 0.9% 100 ml @ 100 mls/hr IVPB ONCE ONE Rx#:[id number] Insulin Regular 100 unit 17.024 In Sodium Chloride 0.9% 100 ml @ 0.1 UNITS/KG/HR 6.929 mls/hr IV .[id number] [facility] Rx#:[id number] Insulin Regular 100 unit 9.334 30.324 8.164 In Sodium Chloride 0.9% 100 ml @ Per Protocol IV .Q0M [facility] Rx#:[id number] Midazolam HCl 50 mg In 2.4 55.833 37.417 Sodium Chloride 0.9% 40 ml @ 1 MG/HR 1 mls/hr IV .Q24H [facility] Rx#:[id number] Norepinephrine 32 mg In 132.042 139.677 23.03 Sodium Chloride 0.9% 218 ml @ 0.42 MCG/KG/MIN 14. 805 mls/hr IV .[id number] [facility] Rx#:[id number] Piperacillin-Tazobactam 3 100 .375 gm In Sodium Chloride 0.9% 100 ml @ 25 mls/hr IVPB Q8H [facility] Rx#: [id number] Propofol 1,000 mg In 177.355 Empty Bag 1 bag @ Titrate IV .Q0M [facility] Rx#: [id number] Sodium Chloride 0.9% 1, 1400 500 000 ml @ 100 mls/hr IV . Q10H [facility] Rx#:[id number] Vancomycin 1,000 mg In 250 Sodium Chloride 0.9% 250 ml @ 125 mls/hr IVPB ONCE [facility] Rx#:[id number] metroNIDAZOLE-NS PMX 500 100 mg In Saline 1 100ml.bag @ 100 mls/hr IVPB Q8HR [facility] Rx#:[id number] Output: Gastric Drainage 100 450 Urine 2330 2140 750 Other: Voiding Method Indwelling Catheter Indwelling Catheter Indwelling Catheter ABP, PAP, CO, CI - Last Documented Arterial Blood Pressure 102/51 - Exam Gen. appearance the patient is sedated, comfortable likely distress currently on burst sad running at 6 mg an hour. The patient is withdrawing to deep painful stimulation. No signs of respiratory distress. The patient has an orogastric and orotracheal tube are both of them are in place. Head exam was generally normal. There was no scleral icterus or corneal arcus. Mucous membranes were dry Neck was supple and without jugular venous distension, thyromegaly, or carotid bruits. Carotids were easily palpable bilaterally. There was no adenopathy. The patient has a left subclavian triple-lumen catheter in place Lungs were clear to auscultation and percussion, and with normal diaphragmatic e xcursion. No wheezes or rales were noted. Cardiac exam revealed the PMI to be normally situated and sized. The rhythm was regular and no extrasystoles were noted during several minutes of auscultation. The first and second heart sounds were normal and physiologic splitting of the second heart sound was noted. There were no murmurs, rubs, clicks, or gallops. Abdominal exam revealed normal bowel sounds. The patient has hypoactive bowel sounds. The patient's abdomen is slightly distended. No direct tenderness or rebound tensile guarding at this point in time. NG tube is in place. Organ enlargement cannot be palpated on today's evaluation. I feel that there is some direct tenderness upon examination although the examination itself is limited as the patient is currently sedated with Versed. Extremities reveal chronic ulceration lower extremities bilaterally with diminished pulses. No cyanosis or clubbing. There is no open wounds or cellulitis in the lower extremities. Neurologic the patient is sedated, comfortable and no focal neurological deficits have been noted. - Labs CBC & Chem 7: 10/24/19 04:10 10/24/19 04:10 Labs: Abnormal Lab Results - Last 24 Hours (Table) 10/23/19 10/23/19 10/23/19 Range/Units 07:29 13:21 14:12 RBC (4.30-5.90) m/uL Hgb (13.0-17.5) gm/dL Hct (39.0-53.0) % MCV (80.0-100.0) fL Plt Count (150-450) k/uL Neutrophils # (Manual) (1.3-7.7) k/uL Lymphocytes # (Manual) (1.0-4.8) k/uL Metamyelocytes # (Man) (0) k/uL Nucleated RBCs (0-0) /100 WBC ABG pCO2 (35-45) mmHg ABG pO2 (83-108) mmHg ABG HCO3 (21-25) mmol/L ABG Total CO2 (19-24) mmol/L ABG O2 Saturation (94-97) % ABG Lactic Acid (0.5-1.6) mmol/L Sodium (137-145) mmol/L Chloride (98-107) mmol/L Carbon Dioxide (22-30) mmol/L BUN (9-20) mg/dL Creatinine (0.66-1.25) mg/dL Glucose (74-99) mg/dL POC Glucose (mg/dL) 164 H 163 H (75-99) mg/dL Plasma Lactic Acid Fredrick (0.7-2.0) mmol/L Calcium (8.4-10.2) mg/dL AST (17-59) U/L ALT (4-49) U/L Total Protein (6.3-8.2) g/dL Albumin (3.5-5.0) g/dL Procalcitonin 10.64 H (0.02-0.09) ng/mL 10/23/19 10/23/19 10/23/19 Range/Units 15:06 16:35 17:07 RBC (4.30-5.90) m/uL Hgb (13.0-17.5) gm/dL Hct (39.0-53.0) % MCV (80.0-100.0) fL Plt Count (150-450) k/uL Neutrophils # (Manual) (1.3-7.7) k/uL Lymphocytes # (Manual) (1.0-4.8) k/uL Metamyelocytes # (Man) (0) k/uL Nucleated RBCs (0-0) /100 WBC ABG pCO2 (35-45) mmHg ABG pO2 (83-108) mmHg ABG HCO3 (21-25) mmol/L ABG Total CO2 (19-24) mmol/L ABG O2 Saturation (94-97) % ABG Lactic Acid (0.5-1.6) mmol/L Sodium (137-145) mmol/L Chloride (98-107) mmol/L Carbon Dioxide (22-30) mmol/L BUN (9-20) mg/dL Creatinine (0.66-1.25) mg/dL Glucose (74-99) mg/dL POC Glucose (mg/dL) 146 H 170 H 166 H (75-99) mg/dL Plasma Lactic Acid Fredrick (0.7-2.0) mmol/L Calcium (8.4-10.2) mg/dL AST (17-59) U/L ALT (4-49) U/L Total Protein (6.3-8.2) g/dL Albumin (3.5-5.0) g/dL Procalcitonin (0.02-0.09) ng/mL 10/23/19 10/23/19 10/23/19 Range/Units 18:15 18:52 19:28 RBC (4.30-5.90) m/uL Hgb (13.0-17.5) gm/dL Hct (39.0-53.0) % MCV (80.0-100.0) fL Plt Count (150-450) k/uL Neutrophils # (Manual) (1.3-7.7) k/uL Lymphocytes # (Manual) (1.0-4.8) k/uL Metamyelocytes # (Man) (0) k/uL Nucleated RBCs (0-0) /100 WBC ABG pCO2 (35-45) mmHg ABG pO2 (83-108) mmHg ABG HCO3 (21-25) mmol/L ABG Total CO2 (19-24) mmol/L ABG O2 Saturation (94-97) % ABG Lactic Acid (0.5-1.6) mmol/L Sodium 146 H (137-145) mmol/L Chloride 119 H (98-107) mmol/L Carbon Dioxide 15 L (22-30) mmol/L BUN 39 H (9-20) mg/dL Creatinine 2.44 H (0.66-1.25) mg/dL Glucose 176 H (74-99) mg/dL POC Glucose (mg/dL) 161 H 160 H (75-99) mg/dL Plasma Lactic Acid Fredrick (0.7-2.0) mmol/L Calcium 6.4 L* (8.4-10.2) mg/dL AST (17-59) U/L ALT (4-49) U/L Total Protein (6.3-8.2) g/dL Albumin (3.5-5.0) g/dL Procalcitonin (0.02-0.09) ng/mL 10/23/19 10/23/19 10/23/19 Range/Units 20:23 20:25 21:28 RBC (4.30-5.90) m/uL Hgb (13.0-17.5) gm/dL Hct (39.0-53.0) % MCV (80.0-100.0) fL Plt Count (150-450) k/uL Neutrophils # (Manual) (1.3-7.7) k/uL Lymphocytes # (Manual) (1.0-4.8) k/uL Metamyelocytes # (Man) (0) k/uL Nucleated RBCs (0-0) /100 WBC ABG pCO2 (35-45) mmHg ABG pO2 (83-108) mmHg ABG HCO3 (21-25) mmol/L ABG Total CO2 (19-24) mmol/L ABG O2 Saturation (94-97) % ABG Lactic Acid (0.5-1.6) mmol/L Sodium (137-145) mmol/L Chloride (98-107) mmol/L Carbon Dioxide (22-30) mmol/L BUN (9-20) mg/dL Creatinine (0.66-1.25) mg/dL Glucose (74-99) mg/dL POC Glucose (mg/dL) 182 H 178 H (75-99) mg/dL Plasma Lactic Acid Fredrick 3.4 H* (0.7-2.0) mmol/L Calcium (8.4-10.2) mg/dL AST (17-59) U/L ALT (4-49) U/L Total Protein (6.3-8.2) g/dL Albumin (3.5-5.0) g/dL Procalcitonin (0.02-0.09) ng/mL 10/23/19 10/23/19 10/24/19 Range/Units 22:15 23:16 00:10 RBC (4.30-5.90) m/uL Hgb (13.0-17.5) gm/dL Hct (39.0-53.0) % MCV (80.0-100.0) fL Plt Count (150-450) k/uL Neutrophils # (Manual) (1.3-7.7) k/uL Lymphocytes # (Manual) (1.0-4.8) k/uL Metamyelocytes # (Man) (0) k/uL Nucleated RBCs (0-0) /100 WBC ABG pCO2 (35-45) mmHg ABG pO2 (83-108) mmHg ABG HCO3 (21-25) mmol/L ABG Total CO2 (19-24) mmol/L ABG O2 Saturation (94-97) % ABG Lactic Acid (0.5-1.6) mmol/L Sodium (137-145) mmol/L Chloride (98-107) mmol/L Carbon Dioxide (22-30) mmol/L BUN (9-20) mg/dL Creatinine (0.66-1.25) mg/dL Glucose (74-99) mg/dL POC Glucose (mg/dL) 173 H 162 H 167 H (75-99) mg/dL Plasma Lactic Acid Fredrick (0.7-2.0) mmol/L Calcium (8.4-10.2) mg/dL AST (17-59) U/L ALT (4-49) U/L Total Protein (6.3-8.2) g/dL Albumin (3.5-5.0) g/dL Procalcitonin (0.02-0.09) ng/mL 10/24/19 10/24/19 10/24/19 Range/Units 00:20 02:09 04:10 RBC 3.70 L (4.30-5.90) m/uL Hgb 12.5 L (13.0-17.5) gm/dL Hct 37.4 L (39.0-53.0) % MCV 101.3 H (80.0-100.0) fL Plt Count 89 L (150-450) k/uL Neutrophils # (Manual) 9.40 H (1.3-7.7) k/uL Lymphocytes # (Manual) 0.62 L (1.0-4.8) k/uL Metamyelocytes # (Man) 0.21 H (0) k/uL Nucleated RBCs 3 H (0-0) /100 WBC ABG pCO2 (35-45) mmHg ABG pO2 (83-108) mmHg ABG HCO3 (21-25) mmol/L ABG Total CO2 (19-24) mmol/L ABG O2 Saturation (94-97) % ABG Lactic Acid (0.5-1.6) mmol/L Sodium (137-145) mmol/L Chloride (98-107) mmol/L Carbon Dioxide (22-30) mmol/L BUN (9-20) mg/dL Creatinine (0.66-1.25) mg/dL Glucose (74-99) mg/dL POC Glucose (mg/dL) 175 H (75-99) mg/dL Plasma Lactic Acid Fredrick 3.2 H* (0.7-2.0) mmol/L Calcium (8.4-10.2) mg/dL AST (17-59) U/L ALT (4-49) U/L Total Protein (6.3-8.2) g/dL Albumin (3.5-5.0) g/dL Procalcitonin (0.02-0.09) ng/mL 10/24/19 10/24/19 10/24/19 Range/Units 04:10 04:10 04:11 RBC (4.30-5.90) m/uL Hgb (13.0-17.5) gm/dL Hct (39.0-53.0) % MCV (80.0-100.0) fL Plt Count (150-450) k/uL Neutrophils # (Manual) (1.3-7.7) k/uL Lymphocytes # (Manual) (1.0-4.8) k/uL Metamyelocytes # (Man) (0) k/uL Nucleated RBCs (0-0) /100 WBC ABG pCO2 (35-45) mmHg ABG pO2 (83-108) mmHg ABG HCO3 (21-25) mmol/L ABG Total CO2 (19-24) mmol/L ABG O2 Saturation (94-97) % ABG Lactic Acid 3.0 H* (0.5-1.6) mmol/L Sodium 146 H (137-145) mmol/L Chloride 120 H (98-107) mmol/L Carbon Dioxide 15 L (22-30) mmol/L BUN 39 H (9-20) mg/dL Creatinine 2.38 H (0.66-1.25) mg/dL Glucose 180 H (74-99) mg/dL POC Glucose (mg/dL) 177 H (75-99) mg/dL Plasma Lactic Acid Fredrick (0.7-2.0) mmol/L Calcium 6.7 L (8.4-10.2) mg/dL AST 2153 H (17-59) U/L ALT 1107 H (4-49) U/L Total Protein 4.1 L (6.3-8.2) g/dL Albumin 1.9 L (3.5-5.0) g/dL Procalcitonin (0.02-0.09) ng/mL 10/24/19 10/24/19 10/24/19 Range/Units 04:55 05:52 06:55 RBC (4.30-5.90) m/uL Hgb (13.0-17.5) gm/dL Hct (39.0-53.0) % MCV (80.0-100.0) fL Plt Count (150-450) k/uL Neutrophils # (Manual) (1.3-7.7) k/uL Lymphocytes # (Manual) (1.0-4.8) k/uL Metamyelocytes # (Man) (0) k/uL Nucleated RBCs (0-0) /100 WBC ABG pCO2 25 L (35-45) mmHg ABG pO2 67 L (83-108) mmHg ABG HCO3 15 L (21-25) mmol/L ABG Total CO2 16 L (19-24) mmol/L ABG O2 Saturation 93.4 L (94-97) % ABG Lactic Acid (0.5-1.6) mmol/L Sodium (137-145) mmol/L Chloride (98-107) mmol/L Carbon Dioxide (22-30) mmol/L BUN (9-20) mg/dL Creatinine (0.66-1.25) mg/dL Glucose (74-99) mg/dL POC Glucose (mg/dL) 153 H 167 H (75-99) mg/dL Plasma Lactic Acid Fredrick (0.7-2.0) mmol/L Calcium (8.4-10.2) mg/dL AST (17-59) U/L ALT (4-49) U/L Total Protein (6.3-8.2) g/dL Albumin (3.5-5.0) g/dL Procalcitonin (0.02-0.09) ng/mL 10/24/19 10/24/19 10/24/19 Range/Units 07:55 10:08 10:59 RBC (4.30-5.90) m/uL Hgb (13.0-17.5) gm/dL Hct (39.0-53.0) % MCV (80.0-100.0) fL Plt Count (150-450) k/uL Neutrophils # (Manual) (1.3-7.7) k/uL Lymphocytes # (Manual) (1.0-4.8) k/uL Metamyelocytes # (Man) (0) k/uL Nucleated RBCs (0-0) /100 WBC ABG pCO2 (35-45) mmHg ABG pO2 (83-108) mmHg ABG HCO3 (21-25) mmol/L ABG Total CO2 (19-24) mmol/L ABG O2 Saturation (94-97) % ABG Lactic Acid (0.5-1.6) mmol/L Sodium (137-145) mmol/L Chloride (98-107) mmol/L Carbon Dioxide (22-30) mmol/L BUN (9-20) mg/dL Creatinine (0.66-1.25) mg/dL Glucose (74-99) mg/dL POC Glucose (mg/dL) 171 H 182 H 186 H (75-99) mg/dL Plasma Lactic Acid Fredrick (0.7-2.0) mmol/L Calcium (8.4-10.2) mg/dL AST (17-59) U/L ALT (4-49) U/L Total Protein (6.3-8.2) g/dL Albumin (3.5-5.0) g/dL Procalcitonin (0.02-0.09) ng/mL Microbiology - Last 24 Hours (Table) 10/21/19 18:20 Blood Culture - Preliminary Blood No Growth after 48 hours Assessment and Plan Plan: 1 acute hyperosmolar nonketotic diabetic syndrome with severe hyperglycemia and intravascular volume depletion/dehydration, and the patient was resuscitated aggressively with IV fluids and the patient is currently on insulin drip at 2.5 units an hour and the blood sugars under better control for now. Most recent blood sugars in the order of 118 the patient is currently receiving normal saline. 2 acute abdominal distention/pain with further workup indicating small bowel ileus/obstruction in addition the possibility of ascending and sigmoid colitis. The patient is currently on IV Zosyn. NG tube is in place and the patient is placed into a bowel rest. The abdomen is slightly distended on today's evaluation. I think there is some direct tenderness. I may consider repeating another CAT scan of the abdomen as a follow-up. General surgeries on the case. The patient had developed shock, which is probably septic shock related to an intra-abdominal source of infection/bowel ischemia/bowel obstruction. The patient had shock liver with seems to be improving at this point in time. 3 shock with profound hypotension and the patient has been aggressively resuscitated IV fluids and currently patient is also on pressors. Initially, the presentation was mainly hypovolemic shock and subsequently there is concern about septic shock due to the above-mentioned comorbidities. The patient may have an abdominal source of ischemia for which he just surgery This has been obtained and the patient was started on IV Zosyn. The patient has a small bowel obstruction and possible ischemic large bowel involving the ascending and sigmoid colon/colitis. Note that the lactic acid level is improved. Nevertheless, the patient remains in shock requiring high doses of pressors including norepinephrine and the patient is also physiologic dose of vasopressin. Antibiotic coverage including a combination of Zosyn and Flagyl and the patient was given a dose of vancomycin pending further cultures. Fever is present episodically throughout the day yesterday and the patient does have some bandemia along with some limited leukocytosis on indicating septic shock. 4 acute kidney injury secondary to above versus chronic renal failure, creatinine stable at 2.38 on today's evaluation 5 acut hypoxic respiratory failure, currently intubated on a mechanical ventilator. There is a possibility of a developing right lower lobe pneumonia as the patient's most recent chest x-ray and the CAT scan of the abdomen showed infiltration in consult inflammation of the right lower lobe. 6 altered mental status secondary to above, And the patient is currently intubated on a mechanical ventilator and was sedated 7 diabetes mellitus, maintained oral hypoglycemics with poor compliance 8 alzheimer's dementia 9 pseudohyponatremia, related to severe hyperglycemia, improved 10 History of hypertension 11 penile erythema, consistent with a fungal infection in the setting of diabetes mellitus,, consider bacterial infection, less likely possibilities are viral infections or dermatitis 12 4.6 cm distal abdominal aortic aneurysm extending to the aortic bifurcation and involving the common iliac arteries with indwelling BILATERAL ILIAC ENDOLUMINAL STENT GRAFT, Unchanged in the most recent CAT scan of the abdomen and pelvis 13 peripheral vascular disease 14 troponin leak, consider Ischemia type 2, the troponin peaked at 2.25 15 acute shock liver secondary to hypotension 16 CHF with ischemic cardiomyopathy and ejection fraction of 30-35% in addition to old PA involving the anteroseptal and apical segments of the heart and left ventricle consistent with EKG findings. 17 severe lactic acidosis secondary to dehydration, with possible sepsis and the patient's lactic acid level is gradually improving is down to 3.0 Plan Continue IV fluids normal saline at the rate of 100 mL an hour Continue insulin drip and titrate the dose Continue IV Zosyn and Flagyl was added in addition to a dose of vancomycin. Repeat cultures were sent. Monitor CVP and keep him above 10 Continue physiologic dose of vasopressin Continue pressors with norepinephrine dose of 0.38 g per KG per minute Monitor lactic acid levels, which is improved for now Echocardiogram showed impaired LV function with an ejection fraction of 3035% with segmental wall motion abnormalities CAT scan of the abdomen may be repeated if the patient is stable enough to go to CAT scan Chest surgical consultation has been done and the input is appreciated Keep the patient nothing by mouth and keep the most arrest with an NG tube in place Monitor renal function Chest x-ray was noted Blood gases was noted Monitor liver function tests that the patient is currently shock liver Contacted the son and informed him of the above-mentioned conditions. His condition is critical and this evaluation was on a more than 30 minutes. Time with Patient: Greater than 30
[2019-10-24 12:21] LABS: Glucose,Whole Blood 204 mg/dL (75-99)
--- NOTE | 2019-10-24 12:31 | CT ---
EXAMINATION TYPE: CT abdomen pelvis wo con DATE OF EXAM: 10/24/2019 COMPARISON: 10/22/2019 HISTORY: abdominal pain, septic shock Unenhanced CT abdomen pelvis admitted. GI contrast administered. Examination of the solid viscera is limited given the lack of contrast. FINDINGS: LUNG BASES: Increasing basilar atelectasis and pleural effusions. Underlying infiltrates difficult to exclude. LIVER/GB: Hepatomegaly with underlying hepatic steatosis. Small gallstones are noted. No space-occupy ing hepatic lesion. PANCREAS: No pancreatic mass identified. No inflammatory process seen. SPLEEN: No evidence for splenomegaly. No intrasplenic lesions seen. ADRENALS: No adrenal nodules identified. No evidence for thickening. KIDNEYS: Hypoattenuating right renal lesion may reflect a cyst. 2 mm nonobstructing calculus right ki dney. No hydronephrosis. Maradiaga balloon catheter is noted in place. BOWEL: There are dilated loops of small bowel measuring up to 3.7 cm with normalized loops seen withi n the pelvis. Findings may reflect complete versus partial obstruction. Contrast is not identified wi thin distal small bowel loops were of the colon at this time. Increasing free fluid is about the para colic gutters and within the pelvis. Severe sigmoid diverticulosis. Diverticulitis difficult to exclu de. No visible abscess identified. Lymph nodes: No evidence for adenopathy greater than 1 cm. Abdominal aorta: Aortic stent graft and aneurysm are unchanged. Genital organs: No significant abnorm ality. Other: Streak artifact from left hip prosthesis limits evaluation of the pelvis. No evidence of free air or abscess. IMPRESSION: 1. Gain noted are dilated loops of small bowel without contrast identified within normalized distal s mall bowel loops or colon. The findings may be on the basis of mechanical small bowel obstruction. No evidence for abscess or free air. 2. Increasing basilar atelectasis and/or infiltrates and effusions. 3. Cardiomegaly with underlying hepatic steatosis and cholelithiasis. 4. Increasing ascites. 5. Severe sigmoid diverticulosis. Mild diverticulitis difficult to exclude.
[2019-10-24] MEDS: DEXTROSE 5% IN WATER 1,000 ML with SODIUM BICARB (1 MEQ/ML) 150 ML IV SCH (12:34)
[2019-10-24 13:30] LABS: Glucose,Whole Blood 205 mg/dL (75-99)
[2019-10-24 13:58] LABS: Glucose,Whole Blood 187 mg/dL (75-99)
[2019-10-24] MEDS: SODIUM CHLORIDE 0.9% 150 ML with VASOPRESSIN 60 UNIT IV SCH ×2 (14:40)
--- NOTE | 2019-10-24 14:59 | PN ---
PROGRESS NOTE Jace is an 79-year-old gentleman who was admitted to hospital with confusional state, renal insufficiency, lactic acidosis, and respiratory distress. The patient has a history of chronic systolic heart failure. Developed progressively worsening shortness of breath and confusion and was ultimately intubated and placed on vent. This morning, patient is on large doses of pressors. He is on subcu heparin and antibiotics. On exam, heart rate is 97 beats per minute. Blood pressure is 92/57, respiratory rate is 8. He is mechanically ventilated with an FiO2 of 40%, O2 sat is 94%. Chest exam reveals diminished air entry bilaterally. Heart exam reveals first and second heart sounds. No gallop. Exam of extremities did not reveal any edema. Peripheral pulses are palpable. LABS: Labs show that potassium is 4.5, BUN is 39, creatinine is 2.38, hemoglobin is 12.5. ASSESSMENT: 1. Respiratory failure. 2. Cough. 3. New onset cardiomyopathy. 4. Sepsis. 5. Paroxysmal atrial fibrillation. PLAN: Continue with supportive care. Prognosis is guarded. MMODL / IJN: [id number] /
[2019-10-24 15:54] LABS: Glucose,Whole Blood 226 mg/dL (75-99)
[2019-10-24 17:03] LABS: Glucose,Whole Blood 250 mg/dL (75-99)
--- NOTE | 2019-10-24 17:47 | P.PN ---
Subjective Progress Note Date: 10/24/19 CHIEF COMPLAINT: Sepsis HISTORY OF PRESENT ILLNESS: The patient is a 79 year old male who presented juan dia to the hospital October 20 with altered mental status changes and blood sugar glucose over 1875. He has baseline dementia as well. Since admission, patient's been in intensive care unit on full mechanical ventilation for acute respiratory distress. Separately, patient presents with sepsis with fevers over 101. He did develop liver shock with AST ALT over 1440-1207. Separately, multiple CT of the abdomen and pelvis shows dilated loops of small bowel. He is acute on chronic renal failure. He also presented with elevated troponins. Secondary to abnormal computed tomography scan of dilated small bowel loops, Gen. surgery is following. Patient's overall condition continues to decline w ith need of high-dose pressors. White count is now normal since admission from 15,000-10,000. REVIEW OF ORGAN SYSTEMS: Unable to obtain due to patient mechanical ventilation and sedation PHYSICAL EXAM: VITALS: Reviewed CONSTITUTIONAL: Well developed and in no acute distress. EYES: Conjuctivae without sclera icterus. HEAD, EARS, NOSE, THROAT: Moist buccal mucosa. Head is atraumatic, normocep halic. No nasal drainage. Nasogastric tube present and functioning NECK: Supple. No thyroidomegaly. RESPIRATORY: Mechanical ventilation. No gross wheezes. CARDIOVASCULAR: Tachycardic. Extremities without edema. Palpable 2+ radial pulses. ABDOMEN: Soft. Mild distention. No peritonitis. No guarding or rigidity. Nasogastric tube bilious output, over 500 in 24 hours. MUSCULOSKELETAL: Nail and fingers with good capillary refill. Toes are cool to touch. SKIN: Warm and well perfused with good skin turgor. NEUROLOGIC: Patient sedated. PSYCH: Patient sedated CLINCAL LABS: Reviewed. Lactate on presentation 11.2 down to 2.8. WBC down from 15,400-10,400 IMAGING: Repeat imaging CT of the abdomen and pelvis today also reviewed demonstrating contrast through the mid small intestine. Lack of contrast distally. No transition point identified. No free air identified. No small bowel edema identified. Gallbladder is moderately distended. Intra-abdominal ascites identified. This is my personal interpretation. RADIOLOGY: Report reviewed CT of the abdomen and pelvis confirms graft for abdominal aortic aneurysm. Also bilateral atelectasis. Diverticulosis moderate to severe identified. Small bowel dilation less than 4 cm identified. Also confirms lack of contrast distally in the pelvis. MEDICAL REPORT: Echo report reviewed with ejection fraction 30-35% ASSESSMENT: 1. Abnormal computed tomography scan with small bowel distention 2. Abdominal aortic aneurysm 3. Uncontrolled diabetes type 2 with hyperglycemia 4. Lactic acidosis 5. Acute respiratory failure 6. Dementia PLAN: 1. I personally discussed with intensive care service regarding CT of the abdomen and pelvis findings. Patient is extremely high surgical risk with high chance of mortality for any surgical intervention. 2. For definitive identification of small bowel obstruction, recommend small bowel follow through. Again patient is high surgical risk including risk of mortality for any surgical intervention. 3. Agree with continued IV antibiotics. 4. May benefit from additional consultants such as infectious disease. 5. Continue nasogastric tube. Critical care time 32 minutes. Objective - Vital Signs Vital signs: Vital Signs Temp 101.1 F H 10/24/19 16:00 Pulse 99 10/24/19 17:00 Resp 29 H 10/24/19 17:00 BP 92/57 10/24/19 14:00 Pulse Ox 99 10/24/19 17:00 Intake & Output 10/23/19 10/24/19 10/24/19 18:59 06:59 18:59 Intake Total 4688.155 3475.834 1160.299 Output Total 2430 2140 1925 Balance 2258.155 1335.834 -764.701 Weight 75.2 kg 81.9 kg 81.9 kg Intake: IV 4250 1400 ACETAMINOPHEN IV (For NPO 400 100 ) 1,000 mg In Empty Bag 1 bag @ 400 mls/hr IVPB Q6H PRN Rx#:[id number] Dextrose 5%-0.45% NaCl 1, 150 000 ml @ 150 mls/hr IV . Q6H40M [facility] Rx#:[id number] Piperacillin-Tazobactam 3 150 200 .375 gm In Sodium Chloride 0.9% 100 ml @ 25 mls/hr IVPB Q8H [facility] Rx#: [id number] Sodium Bicarb (amps) 100 Sodium Chloride 0.9% 1, 1550 000 ml @ 999 mls/hr IV . Q1H1M ONE Rx#:[id number] Sodium Chloride 0.9% 1, 1000 000 ml @ 999 mls/hr IV . Q1H1M ONE Rx#:[id number] Sodium Chloride 0.9% 1, 1000 1000 000 ml @ 999 mls/hr IV . Q1H1M ONE Rx#:[id number] Intake, IV Titration 715.509 5048.834 1160.299 Amount Calcium Gluconate 1 gm In 100 Sodium Chloride 0.9% 100 ml @ 100 mls/hr IVPB ONCE ONE Rx#:[id number] Insulin Regular 100 unit 17.024 In Sodium Chloride 0.9% 100 ml @ 0.1 UNITS/KG/HR 6.929 mls/hr IV .[id number] [facility] Rx#:[id number] Insulin Regular 100 unit 9.334 30.324 30.671 In Sodium Chloride 0.9% 100 ml @ Per Protocol IV .Q0M [facility] Rx#:[id number] Midazolam HCl 50 mg In 2.4 55.833 82.517 Sodium Chloride 0.9% 40 ml @ 1 MG/HR 1 mls/hr IV .Q24H [facility] Rx#:[id number] Norepinephrine 32 mg In 132.042 139.677 147.111 Sodium Chloride 0.9% 218 ml @ 0.42 MCG/KG/MIN 14. 805 mls/hr IV .[id number] [facility] Rx#:[id number] Piperacillin-Tazobactam 3 100 .375 gm In Sodium Chloride 0.9% 100 ml @ 25 mls/hr IVPB Q8H [facility] Rx#: [id number] Propofol 1,000 mg In 177.355 Empty Bag 1 bag @ Titrate IV .Q0M [facility] Rx#: [id number] Sodium Chloride 0.9% 1, 1400 900 000 ml @ 100 mls/hr IV . Q10H [facility] Rx#:[id number] Vancomycin 1,000 mg In 250 Sodium Chloride 0.9% 250 ml @ 125 mls/hr IVPB ONCE [facility] Rx#:[id number] metroNIDAZOLE-NS PMX 500 100 mg In Saline 1 100ml.bag @ 100 mls/hr IVPB Q8HR [facility] Rx#:[id number] Output: Gastric Drainage 100 450 Urine 2330 2140 1475 Other: Voiding Method Indwelling Catheter Indwelling Catheter Indwelling Catheter ABP, PAP, CO, CI - Last Documented Arterial Blood Pressure 91/47 - Labs CBC & Chem 7: 10/24/19 04:10 10/24/19 04:10 Labs: Abnormal Lab Results - Last 24 Hours (Table) 05/14/20 05/14/20 05/14/20 Range/Units 18:15 18:52 19:28 RBC (4.30-5.90) m/uL Hgb (13.0-17.5) gm/dL Hct (39.0-53.0) % MCV (80.0-100.0) fL Plt Count (150-450) k/uL Neutrophils # (Manual) (1.3-7.7) k/uL Lymphocytes # (Manual) (1.0-4.8) k/uL Metamyelocytes # (Man) (0) k/uL Nucleated RBCs (0-0) /100 WBC ABG pCO2 (35-45) mmHg ABG pO2 (83-108) mmHg ABG HCO3 (21-25) mmol/L ABG Total CO2 (19-24) mmol/L ABG O2 Saturation (94-97) % ABG Lactic Acid (0.5-1.6) mmol/L Sodium 146 H (137-145) mmol/L Chloride 119 H (98-107) mmol/L Carbon Dioxide 15 L (22-30) mmol/L BUN 39 H (9-20) mg/dL Creatinine 2.44 H (0.66-1.25) mg/dL Glucose 176 H (74-99) mg/dL POC Glucose (mg/dL) 161 H 160 H (75-99) mg/dL Plasma Lactic Acid Fredrick (0.7-2.0) mmol/L Calcium 6.4 L* (8.4-10.2) mg/dL AST (17-59) U/L ALT (4-49) U/L Total Protein (6.3-8.2) g/dL Albumin (3.5-5.0) g/dL Procalcitonin (0.02-0.09) ng/mL 10/23/19 10/23/19 10/23/19 Range/Units 20:23 20:25 21:28 RBC (4.30-5.90) m/uL Hgb (13.0-17.5) gm/dL Hct (39.0-53.0) % MCV (80.0-100.0) fL Plt Count (150-450) k/uL Neutrophils # (Manual) (1.3-7.7) k/uL Lymphocytes # (Manual) (1.0-4.8) k/uL Metamyelocytes # (Man) (0) k/uL Nucleated RBCs (0-0) /100 WBC ABG pCO2 (35-45) mmHg ABG pO2 (83-108) mmHg ABG HCO3 (21-25) mmol/L ABG Total CO2 (19-24) mmol/L ABG O2 Saturation (94-97) % ABG Lactic Acid (0.5-1.6) mmol/L Sodium (137-145) mmol/L Chloride (98-107) mmol/L Carbon Dioxide (22-30) mmol/L BUN (9-20) mg/dL Creatinine (0.66-1.25) mg/dL Glucose (74-99) mg/dL POC Glucose (mg/dL) 182 H 178 H (75-99) mg/dL Plasma Lactic Acid Fredrick 3.4 H* (0.7-2.0) mmol/L Calcium (8.4-10.2) mg/dL AST (17-59) U/L ALT (4-49) U/L Total Protein (6.3-8.2) g/dL Albumin (3.5-5.0) g/dL Procalcitonin (0.02-0.09) ng/mL 10/23/19 10/23/19 10/24/19 Range/Units 22:15 23:16 00:10 RBC (4.30-5.90) m/uL Hgb (13.0-17.5) gm/dL Hct (39.0-53.0) % MCV (80.0-100.0) fL Plt Count (150-450) k/uL Neutrophils # (Manual) (1.3-7.7) k/uL Lymphocytes # (Manual) (1.0-4.8) k/uL Metamyelocytes # (Man) (0) k/uL Nucleated RBCs (0-0) /100 WBC ABG pCO2 (35-45) mmHg ABG pO2 (83-108) mmHg ABG HCO3 (21-25) mmol/L ABG Total CO2 (19-24) mmol/L ABG O2 Saturation (94-97) % ABG Lactic Acid (0.5-1.6) mmol/L Sodium (137-145) mmol/L Chloride (98-107) mmol/L Carbon Dioxide (22-30) mmol/L BUN (9-20) mg/dL Creatinine (0.66-1.25) mg/dL Glucose (74-99) mg/dL POC Glucose (mg/dL) 173 H 162 H 167 H (75-99) mg/dL Plasma Lactic Acid Fredrick (0.7-2.0) mmol/L Calcium (8.4-10.2) mg/dL AST (17-59) U/L ALT (4-49) U/L Total Protein (6.3-8.2) g/dL Albumin (3.5-5.0) g/dL Procalcitonin (0.02-0.09) ng/mL 10/24/19 10/24/19 10/24/19 Range/Units 00:20 02:09 04:10 RBC (4.30-5.90) m/uL Hgb (13.0-17.5) gm/dL Hct (39.0-53.0) % MCV (80.0-100.0) fL Plt Count (150-450) k/uL Neutrophils # (Manual) (1.3-7.7) k/uL Lymphocytes # (Manual) (1.0-4.8) k/uL Metamyelocytes # (Man) (0) k/uL Nucleated RBCs (0-0) /100 WBC ABG pCO2 (35-45) mmHg ABG pO2 (83-108) mmHg ABG HCO3 (21-25) mmol/L ABG Total CO2 (19-24) mmol/L ABG O2 Saturation (94-97) % ABG Lactic Acid (0.5-1.6) mmol/L Sodium (137-145) mmol/L Chloride (98-107) mmol/L Carbon Dioxide (22-30) mmol/L BUN (9-20) mg/dL Creatinine (0.66-1.25) mg/dL Glucose (74-99) mg/dL POC Glucose (mg/dL) 175 H (75-99) mg/dL Plasma Lactic Acid Fredrick 3.2 H* (0.7-2.0) mmol/L Calcium (8.4-10.2) mg/dL AST (17-59) U/L ALT (4-49) U/L Total Protein (6.3-8.2) g/dL Albumin (3.5-5.0) g/dL Procalcitonin 17.88 H (0.02-0.09) ng/mL 10/24/19 10/24/19 10/24/19 Range/Units 04:10 04:10 04:10 RBC 3.70 L (4.30-5.90) m/uL Hgb 12.5 L (13.0-17.5) gm/dL Hct 37.4 L (39.0-53.0) % MCV 101.3 H (80.0-100.0) fL Plt Count 89 L (150-450) k/uL Neutrophils # (Manual) 9.40 H (1.3-7.7) k/uL Lymphocytes # (Manual) 0.62 L (1.0-4.8) k/uL Metamyelocytes # (Man) 0.21 H (0) k/uL Nucleated RBCs 3 H (0-0) /100 WBC ABG pCO2 (35-45) mmHg ABG pO2 (83-108) mmHg ABG HCO3 (21-25) mmol/L ABG Total CO2 (19-24) mmol/L ABG O2 Saturation (94-97) % ABG Lactic Acid 3.0 H* (0.5-1.6) mmol/L Sodium 146 H (137-145) mmol/L Chloride 120 H (98-107) mmol/L Carbon Dioxide 15 L (22-30) mmol/L BUN 39 H (9-20) mg/dL Creatinine 2.38 H (0.66-1.25) mg/dL Glucose 180 H (74-99) mg/dL POC Glucose (mg/dL) (75-99) mg/dL Plasma Lactic Acid Fredrick (0.7-2.0) mmol/L Calcium 6.7 L (8.4-10.2) mg/dL AST 2153 H (17-59) U/L ALT 1107 H (4-49) U/L Total Protein 4.1 L (6.3-8.2) g/dL Albumin 1.9 L (3.5-5.0) g/dL Procalcitonin (0.02-0.09) ng/mL 10/24/19 10/24/1910/23/20 Range/Units 04:11 04:55 05:52 RBC (4.30-5.90) m/uL Hgb (13.0-17.5) gm/dL Hct (39.0-53.0) % MCV (80.0-100.0) fL Plt Count (150-450) k/uL Neutrophils # (Manual) (1.3-7.7) k/uL Lymphocytes # (Manual) (1.0-4.8) k/uL Metamyelocytes # (Man) (0) k/uL Nucleated RBCs (0-0) /100 WBC ABG pCO2 25 L (35-45) mmHg ABG pO2 67 L (83-108) mmHg ABG HCO3 15 L (21-25) mmol/L ABG Total CO2 16 L (19-24) mmol/L ABG O2 Saturation 93.4 L (94-97) % ABG Lactic Acid (0.5-1.6) mmol/L Sodium (137-145) mmol/L Chloride (98-107) mmol/L Carbon Dioxide (22-30) mmol/L BUN (9-20) mg/dL Creatinine (0.66-1.25) mg/dL Glucose (74-99) mg/dL POC Glucose (mg/dL) 177 H 153 H (75-99) mg/dL Plasma Lactic Acid Fredrick (0.7-2.0) mmol/L Calcium (8.4-10.2) mg/dL AST (17-59) U/L ALT (4-49) U/L Total Protein (6.3-8.2) g/dL Albumin (3.5-5.0) g/dL Procalcitonin (0.02-0.09) ng/mL 10/24/19 10/24/19 10/24/19 Range/Units 06:55 07:55 10:08 RBC (4.30-5.90) m/uL Hgb (13.0-17.5) gm/dL Hct (39.0-53.0) % MCV (80.0-100.0) fL Plt Count (150-450) k/uL Neutrophils # (Manual) (1.3-7.7) k/uL Lymphocytes # (Manual) (1.0-4.8) k/uL Metamyelocytes # (Man) (0) k/uL Nucleated RBCs (0-0) /100 WBC ABG pCO2 (35-45) mmHg ABG pO2 (83-108) mmHg ABG HCO3 (21-25) mmol/L ABG Total CO2 (19-24) mmol/L ABG O2 Saturation (94-97) % ABG Lactic Acid (0.5-1.6) mmol/L Sodium (137-145) mmol/L Chloride (98-107) mmol/L Carbon Dioxide (22-30) mmol/L BUN (9-20) mg/dL Creatinine (0.66-1.25) mg/dL Glucose (74-99) mg/dL POC Glucose (mg/dL) 167 H 171 H 182 H (75-99) mg/dL Plasma Lactic Acid Fredrick (0.7-2.0) mmol/L Calcium (8.4-10.2) mg/dL AST (17-59) U/L ALT (4-49) U/L Total Protein (6.3-8.2) g/dL Albumin (3.5-5.0) g/dL Procalcitonin (0.02-0.09) ng/mL 10/24/19 10/24/19 10/24/19 Range/Units 10:59 12:19 13:21 RBC (4.30-5.90) m/uL Hgb (13.0-17.5) gm/dL Hct (39.0-53.0) % MCV (80.0-100.0) fL Plt Count (150-450) k/uL Neutrophils # (Manual) (1.3-7.7) k/uL Lymphocytes # (Manual) (1.0-4.8) k/uL Metamyelocytes # (Man) (0) k/uL Nucleated RBCs (0-0) /100 WBC ABG pCO2 (35-45) mmHg ABG pO2 (83-108) mmHg ABG HCO3 (21-25) mmol/L ABG Total CO2 (19-24) mmol/L ABG O2 Saturation (94-97) % ABG Lactic Acid (0.5-1.6) mmol/L Sodium (137-145) mmol/L Chloride (98-107) mmol/L Carbon Dioxide (22-30) mmol/L BUN (9-20) mg/dL Creatinine (0.66-1.25) mg/dL Glucose (74-99) mg/dL POC Glucose (mg/dL) 186 H 204 H 205 H (75-99) mg/dL Plasma Lactic Acid Fredrick (0.7-2.0) mmol/L Calcium (8.4-10.2) mg/dL AST (17-59) U/L ALT (4-49) U/L Total Protein (6.3-8.2) g/dL Albumin (3.5-5.0) g/dL Procalcitonin (0.02-0.09) ng/mL 10/24/19 10/24/19 10/24/19 Range/Units 13:56 15:52 16:05 RBC (4.30-5.90) m/uL Hgb (13.0-17.5) gm/dL Hct (39.0-53.0) % MCV (80.0-100.0) fL Plt Count (150-450) k/uL Neutrophils # (Manual) (1.3-7.7) k/uL Lymphocytes # (Manual) (1.0-4.8) k/uL Metamyelocytes # (Man) (0) k/uL Nucleated RBCs (0-0) /100 WBC ABG pCO2 (35-45) mmHg ABG pO2 (83-108) mmHg ABG HCO3 (21-25) mmol/L ABG Total CO2 (19-24) mmol/L ABG O2 Saturation (94-97) % ABG Lactic Acid (0.5-1.6) mmol/L Sodium (137-145) mmol/L Chloride (98-107) mmol/L Carbon Dioxide (22-30) mmol/L BUN (9-20) mg/dL Creatinine (0.66-1.25) mg/dL Glucose (74-99) mg/dL POC Glucose (mg/dL) 187 H 226 H (75-99) mg/dL Plasma Lactic Acid Fredrick 2.9 H* (0.7-2.0) mmol/L Calcium (8.4-10.2) mg/dL AST (17-59) U/L ALT (4-49) U/L Total Protein (6.3-8.2) g/dL Albumin (3.5-5.0) g/dL Procalcitonin (0.02-0.09) ng/mL 10/24/19 Range/Units 17:02 RBC (4.30-5.90) m/uL Hgb (13.0-17.5) gm/dL Hct (39.0-53.0) % MCV (80.0-100.0) fL Plt Count (150-450) k/uL Neutrophils # (Manual) (1.3-7.7) k/uL Lymphocytes # (Manual) (1.0-4.8) k/uL Metamyelocytes # (Man) (0) k/uL Nucleated RBCs (0-0) /100 WBC ABG pCO2 (35-45) mmHg ABG pO2 (83-108) mmHg ABG HCO3 (21-25) mmol/L ABG Total CO2 (19-24) mmol/L ABG O2 Saturation (94-97) % ABG Lactic Acid (0.5-1.6) mmol/L Sodium (137-145) mmol/L Chloride (98-107) mmol/L Carbon Dioxide (22-30) mmol/L BUN (9-20) mg/dL Creatinine (0.66-1.25) mg/dL Glucose (74-99) mg/dL POC Glucose (mg/dL) 250 H (75-99) mg/dL Plasma Lactic Acid Fredrick (0.7-2.0) mmol/L Calcium (8.4-10.2) mg/dL AST (17-59) U/L ALT (4-49) U/L Total Protein (6.3-8.2) g/dL Albumin (3.5-5.0) g/dL Procalcitonin (0.02-0.09) ng/mL Microbiology - Last 24 Hours (Table) 10/21/19 18:20 Blood Culture - Preliminary Blood No Growth after 48 hours Assessment and Plan (1) Hyponatremia Current Visit: Yes Status: Acute Code(s): E87.1 - HYPO-OSMOLALITY AND HYPONATREMIA SNOMED Code(s): 96935009 (2) Hyperkalemia Current Visit: Yes Status: Acute Code(s): E87.5 - HYPERKALEMIA SNOMED Code(s): 97163840 (3) Sigmoid diverticulitis Current Visit: Yes Status: Acute Code(s): K57.32 - DVTRCLI OF LG INT W/O PERFORATION OR ABSCESS W/O BLEEDING SNOMED Code(s): 623214780 (4) Dynamic ileus Current Visit: Yes Status: Acute Code(s): K56.7 - ILEUS, UNSPECIFIED SNOMED Code(s): 28547022 (5) Hyperosmolar syndrome Current Visit: Yes Status: Acute Code(s): E87.0 - HYPEROSMOLALITY AND HYPERNATREMIA SNOMED Code(s): 59226718 (6) Hyperosmolarity due to secondary diabetes mellitus Current Visit: Yes Status: Acute Code(s): E13.00 - OTH DIAB W HYPROSM W/O NONKET HYPRGLY-HYPROS COMA ([facility]) SNOMED Code(s): 45228555 (7) Altered mental state Current Visit: No Status: Acute Code(s): R41.82 - ALTERED MENTAL STATUS, UNSPECIFIED SNOMED Code(s): 366839221 (8) Dementia Current Visit: No Status: Acute Code(s): F03.90 - UNSPECIFIED DEMENTIA WITHOUT BEHAVIORAL DISTURBANCE SNOMED Code(s): 72707696 (9) Renal insufficiency syndrome Current Visit: No Status: Acute Code(s): N28.9 - DISORDER OF KIDNEY AND URETER, UNSPECIFIED SNOMED Code(s): 265117207 (10) Shock liver Current Visit: Yes Status: Acute Code(s): K72.00 - ACUTE AND SUBACUTE HEP ATIC FAILURE WITHOUT COMA SNOMED Code(s): 304689113
[2019-10-24 17:56] LABS: Glucose,Whole Blood 256 mg/dL (75-99)
--- NOTE | 2019-10-24 18:05 | P.PN ---
Progress Note - Text Progress Note Date: 10/24/19 Interval history: 79-year-old male with PMH of diabetes mellitus on oral hypoglycemics, con pascual presents the ED for altered mentation. Apparently, patient was visited by his nurse who noted an extremely high blood glucose which prompted his hospital visit. Patient is altered and he is unable to provide any meaningful history. Majority of documentation was obtained from chart review and discussion with his son. Apparently, patient has been confused and disoriented which is progressive ly been worsening over the past 2 weeks. His son reports that the patient fell a week ago and did not seek medical attention. Patient lives with his who is suffering from advanced Alzheimer's dementia and is currently in hospice. According to the son, patient drinks 4 L of soda on a daily basis. Son reports that patient is noncompliant with her diabetic diet. In the ED, vital signs showed a T low of 97.5 Fahrenheit, pulse of 102, tachypnea with respiratory rate of 28, BP of 85/49 and 89% on room air. CBC showed leukocytosis of 11 and MCV of 124.1. ABG showed pH of 7, pCO2 19, bica rbonate of 8. CMP showed sodium of 116, potassium of 5.7, chloride of 74, bicarbonate of 8, BUN 33, creatinine 2.18, glucose greater than 1875. Troponin was 0.881 with EKG showing sinus tachycardia. Urinalysis shows 4+ glucose and trace blood. Acetone was negative. CT brain was negative for hemorrhage but showed slightly hyperdense left MCA compared to right. Chest x-ray showed possible right lower lobe infiltrate. Patient is admitted to ICU for sepsis, troponin elevation and diabetic ketoacidosis. Intubated. today-ICU. Drips include levo fed, vasopressin, insulin, Versed. Also IV bi carbonate drip. FiO2 40% and PEEP of 5. NG tube and last 24 hours as probable 600 mL. Telemetry shows some paroxysmal atrial fibrillation and controlled. -short-lived.. Spiking fevers Review of systems cannot be done patient intubated Active Medications Aspirin (Aspirin) 81 mg PO DAILY [facility] Last Admin: 10/24/19 08:43 Dose: 81 mg Documented by: Chlorhexidine Gluconate (Peridex) 15 ml MUCOUS MEM BID [facility] Last Admin: 10/24/19 08:42 Dose: 15 ml Documented by: Heparin Sodium (Porcine) (Heparin) 5,000 unit SQ Q8HR [facility] Last Admin: 10/24/19 16:37 Dose: 5,000 unit Documented by: Hydromorphone HCl (Dilaudid) 1 mg IVP Q4HR PRN PRN Reason: Pain Last Admin: 10/24/19 14:51 Dose: 1 mg Documented by: Piperacillin Sod/Tazobactam (Sod 3.375 gm/ Sodium Chloride) 100 mls @ 25 mls/hr IVPB Q8H INDU Last Admin: 10/24/19 12:33 Dose: 25 mls/hr Documented by: Midazolam HCl 50 mg/ Sodium (Chloride) 50 mls @ 1 mls/hr IV .Q24H INDU; Protocol Last Admin: 10/24/19 16:16 Dose: 6 mg/hr, 6 mls/hr Documented by: Norepinephrine Bitartrate 32 (mg/ Sodium Chloride) 250 mls @ 14.805 mls/hr IV .[id number] [facility]; Protocol Last Admin: 10/24/19 17:26 Dose: 0.33 mcg/kg/min, 11.633 mls/hr Documented by: Insulin Human Regular 100 unit (/ Sodium Chloride) 101 mls @ 0 mls/hr IV .Q0M [facility]; Protocol Last Titration: 10/24/19 17:03 Dose: 5 unit/hr, 5.05 mls/hr Documented by: Vasopressin 60 unit/ Sodium (Chloride) 153 mls @ 4.59 mls/hr IV .Q24H [facility] Last Admin: 10/24/19 14:40 Dose: 4.59 mls/hr Documented by: Metronidazole 500 mg/ IV (Solution) 100 mls @ 100 mls/hr IVPB Q8HR [facility] Last Admin: 10/24/19 16:37 Dose: 100 mls/hr Documented by: Sodium Bicarbonate 150 ml/ (Dextrose/Water) 1,150 mls @ 75 mls/hr IV .[id number] [facility] Last Admin: 10/24/19 12:34 Dose: 75 mls/hr Documented by: Miscellaneous Information (Magnesium Per Protocol) 1 each MISCELLANE DAILY PRN; Protocol PRN Reason: Per Protocol Miscellaneous Information (Pneumonia Protocol Utilized) 1 each PO ONCE PRN PRN Reason: Per Protocol Miscellaneous Information (Potassium Per Protocol) 1 each MISCELLANE DAILY PRN; Protocol PRN Reason: Per Protocol Miscellaneous Information (Phosphorus Per Protocol) 1 each MISCELLANE DAILY PRN; Protocol PRN Reason: Per Protocol Naloxone HCl (Narcan) 0.2 mg IV Q2M PRN PRN Reason: Opioid Reversal Nitroglycerin (Nitrostat) 0.4 mg SUBLINGUAL Q5M PRN PRN Reason: Chest Pain Pantoprazole Sodium (Protonix) 40 mg IV DAILY [facility] Last Admin: 10/24/19 08:43 Dose: 40 mg Documented by: Pravastatin Sodium (Pravachol) 40 mg PO DAILY [facility] Last Admin: 10/24/19 08:43 Dose: 40 mg Documented by: On examination: VITAL SIGNS: 101.1, 109, 35, 9257, 95% on the ventilator GENERAL APPEARANCE: laying in bed, sedated, intubated. HEENT: Normal external appearance of nose and ear. Oral cavity -endotracheal tube EYES: Pupils equal. Conjunctiva normal. NECK: JVD unable to assess. Mass not palpable. RESPIRATORY: Respiratory effort increased. Lungs -decreased breath sounds CARDIOVASCULAR: First and second sounds normal. No edema. ABDOMEN: Soft. Liver and spleen not palpable. No tenderness. No mass palpable. PSYCHIATRY: unable to assess, patient sedated INVESTIGATIONS, reviewed in the clinical context: White count 10.3 hemoglobin 12.5 platelets 89 potassium 4.5 bun 39 creatinine 2.38. Total bilirubin 0.9 AST 2153 ALT 1107 Chest [id number] bilateral infiltrates Previous testing: White count 11 hemoglobin 13.7 platelets 383 Sodium 116, bicarb 8, bun 33, creatinine 2.18 glucose 1875 troponin I 0.88 1 Rusty-19 PCR-not detected computed tomography scan of the brain without contrast-no acute degenerative changes Ultrasound kidney-limited exam 2-D echocardiogram-EF 30-35%, anteroseptal apical hypokinesia AST 3453, ALT 1264, computed tomography scan of the abdomen and pelvis without contrast-dilated multiple loops of small bowel some free fluid in the paracolic gutter bilateral lower lobe pulmonary infiltrates, fusiform 4.4 cm lower abdominal aortic aneurysm with aortoiliac endograft multiple diverticula of the sigmoid colon. Mild wall thickening of the ascending colon. Blood cultures from October 20-negative Assessment: -acute nonketotic hyperosmolar diabetes with severe hyperglycemia, POA -Acute small bowel obstruction, possibly ileus-NG tube to suction -Acute hypoxic respiratory failure requiring mechanical ventilator support-slow to respond -Acute metabolic encephalopathy from above-slow to respond -Alzheimer's dementia -Pseudohyponatremia from severe hyperglycemia -4.4 cm distal abdominal aortic aneurysm with the endoluminal stent graft -Peripheral arterial disease -Acute shock liver secondary to hypotensive shock-slow to respond -Chronic congestive heart failure from systolic dysfunction EF 30-35% -Sepsis with septic shock, possible community acquired pneumonia -Metabolic encephalopathy likely due to the above -Non-ST elevation TN likely type II from demand ischemia, POA -Acute kidney injury likely ATN -Possibly chronic kidney disease -essential hypertension -Pneumonia suspect gram-negative organism Plan: Patient is on IV heparin, IV Flagyl, IV Versed, IV levo fed, IV Zosyn. Because of ischemic hepatitis greatly elevated LFTs we'll DC Pravachol. Prognosis guarded. Also started and IV Flagyl today.
[2019-10-24 19:20] LABS: Glucose,Whole Blood 265 mg/dL (75-99)
--- NOTE | 2019-10-24 19:48 | US ---
EXAMINATION TYPE: US gallbladder DATE OF EXAM: 10/24/2019 COMPARISON: NONE CLINICAL HISTORY: gallstones. recent CT exam showed gallstones EXAM MEASUREMENTS: Liver Length: 16.0 cm Gallbladder Wall: 0.4 cm Right Kidney: 10.0 x 4.5 x 4.9 cm Extremely limited exam - Intubated ICU patient, unable to rotate from supine position or take breat h in and hold. Large amount of overlying bowel content Pancreas: Obscured by bowel gas Liver: limited evaluation. Attenuating, unable to penetrate, best seen intercostally Gallbladder: multiple stones, thickened wall CBD: Obscured by overlying bowel gas Right Kidney: cystic area lower pole = 3.5 x 2.6 x 3.2cm *Small amount of free fluid adjacent to liver IMPRESSION: 1. Cholelithiasis with thickened gallbladder wall. Correlate for acute cholecystitis. 2. Small amount of free fluid adjacent to the liver. 3. Complex cyst on the right kidney with septations. 4. Exam is limited due to the patient's condition at this time.
[2019-10-24 20:29] LABS: Glucose,Whole Blood 331 mg/dL (75-99)
[2019-10-24 22:01] LABS: Glucose,Whole Blood 256 mg/dL (75-99)
[2019-10-24 23:10] LABS: Glucose,Whole Blood 232 mg/dL (75-99)
[2019-10-25] MEDS: INSULIN REGULAR 100 UNIT in SODIUM CHLORIDE 0.9% 100 ML IV SCH (00:14)
[2019-10-25 00:19] LABS: Glucose,Whole Blood 189 mg/dL (75-99)
[2019-10-25 01:15] LABS: Glucose,Whole Blood 238 mg/dL (75-99)
[2019-10-25 02:05] LABS: Glucose,Whole Blood 221 mg/dL (75-99)
[2019-10-25 02:57] LABS: Basophils % (A) 0 %; Eosinophils # (A) 0.1 k/uL (0-0.7); Eosinophils % (A) 1 %; HCT 37.1 % (39.0-53.0); HGB 12.1 gm/dL (13.0-17.5); Lymphocytes # (A) 0.8 k/uL (1.0-4.8); Lymphocytes % (A) 7 %; MCH 33.1 pg (25.0-35.0); MCHC 32.7 g/dL (31.0-37.0); Macrocytosis Slight; Mean Platelet Volume 10.6; Monocytes # (A) 0.2 k/uL (0-1.0); Monocytes % (A) 2 %; Neutrophils # (A) 9.6 k/uL (1.3-7.7); Neutrophils % (A) 89 %; RBC 3.67 m/uL (4.30-5.90); RDW 14.4 % (11.5-15.5); WBC 10.7 k/uL (3.8-10.6)
[2019-10-25 02:59] LABS: Platelet Count 94 k/uL (150-450)
[2019-10-25 03:10] LABS: Albumin 1.9 g/dL (3.5-5.0); Calcium 6.6 mg/dL (8.4-10.2); Potassium 3.3 mmol/L (3.5-5.1); Total Protein 4.2 g/dL (6.3-8.2)
[2019-10-25 03:17] LABS: Glucose,Whole Blood 259 mg/dL (75-99)
[2019-10-25 04:10] LABS: Glucose,Whole Blood 214 mg/dL (75-99)
[2019-10-25] MEDS: PIPERACILLIN-TAZOBACTAM 3.375 GM in SODIUM CHLORIDE 0.9% 100 ML IVPB SCH ×3 (04:13→20:21)
[2019-10-25] MEDS: DEXTROSE 5% IN WATER 1,000 ML with SODIUM BICARB (1 MEQ/ML) 150 ML IV SCH (04:16)
[2019-10-25] MEDS ORDERED: ACETAMINOPHEN SUPPOSITORY 650 MG SUPP RECTAL STA (04:31)
[2019-10-25 05:21] LABS: ABG Base Excess -0.9 mmol/L; ABG HCO3 22 mmol/L (21-25); ABG Oxygen Saturation 94.7 % (94-97); ABG PCO2 28 mmHg (35-45); ABG PH 7.51 (7.35-7.45); ABG PO2 65 mmHg (83-108); ABG TCO2 23 mmol/L (19-24); Allen Test Performed? Yes
[2019-10-25] MEDS ORDERED: Magnesium Replacement Protocol 1 EACH MISC MISCELLANE PRN (05:27)
[2019-10-25] MEDS ORDERED: Potassium Replacement Protocol 1 EACH MISC MISCELLANE PRN ×2 (05:27→13:10)
[2019-10-25 05:31] LABS: Glucose,Whole Blood 190 mg/dL (75-99)
[2019-10-25] MEDS: POTASSIUM CHLORIDE 20 MEQ in WATER FOR INJECTION 1 100ML.BAG IVPB SCH ×4 (06:02→17:51)
[2019-10-25] MEDS: MAGNESIUM SULFATE-D5W PMX 1 GM in DEXTROSE/WATER 1 100ML.BAG IVPB SCH ×2 (06:04→07:06)
[2019-10-25 06:15] LABS: Glucose,Whole Blood 186 mg/dL (75-99)
--- NOTE | 2019-10-25 06:30 | XR ---
EXAMINATION TYPE: XR chest 1V portable DATE OF EXAM: 10/25/2019 HISTORY: Tube placement. REFERENCE: Previous study dated 10/24/2019. FINDINGS: The patient's ET tube and NG tube remain in place, unchanged in appearance. A left subclavi an catheter remains in place. Its tip is in the superior vena cava. There is apparent elevation of the right hemidiaphragm. There is patchy, bilateral airspace disease. There is blunting of the left CP angle. I could not exclude a small effusion. The heart is not enlarg ed. IMPRESSION: NO SIGNIFICANT INTERVAL CHANGE IN APPEARANCE OF THE CHEST.
[2019-10-25 07:01] LABS: Glucose,Whole Blood 213 mg/dL (75-99)
[2019-10-25] MEDS: MIDAZOLAM HCL 50 MG in SODIUM CHLORIDE 0.9% 40 ML IV SCH (07:17)
[2019-10-25] MEDS ORDERED: SODIUM CHLORIDE 0.9% 1,000 ML IV SCH (08:00)
[2019-10-25] MEDS: HEPARIN SODIUM,PORCINE 5,000 UNIT/ML 1 ML VIAL SQ SCH ×3 (08:20→23:21)
[2019-10-25] MEDS: metroNIDAZOLE-NS PMX 500 MG in SALINE 1 100ML.BAG IVPB SCH ×3 (08:21→23:21)
[2019-10-25 08:27] LABS: Glucose,Whole Blood 196 mg/dL (75-99)
[2019-10-25] MEDS: SODIUM CHLORIDE 0.45% 1,000 ML IV SCH ×2 (08:29→20:09)
[2019-10-25 09:31] LABS: Glucose,Whole Blood 198 mg/dL (75-99)
[2019-10-25 10:11] LABS: Glucose,Whole Blood 184 mg/dL (75-99)
[2019-10-25] MEDS: CHLORHEXIDINE GLUCONATE 15 ML CUP MUCOUS MEM SCH ×2 (10:25→23:21)
[2019-10-25] MEDS: ASPIRIN 81 MG PO SCH (10:25)
[2019-10-25] MEDS: PANTOPRAZOLE 40 MG/10 ML VIAL IV SCH (10:25)
--- NOTE | 2019-10-25 10:45 | P.PN ---
Subjective Progress Note Date: 10/25/19 CHIEF COMPLAINT: Sepsis HISTORY OF PRESENT ILLNESS: The patient is a 79 year old male who presented juan dia to the hospital October 20 with altered mental status changes, dehydration, blood sugar glucose over 1875, baseline dementia and elevated troponins. During hospitalization, he developed vent dependent respiratory failure, acute on chronic renal failure as well as liver shock syndrome and sepsis. He continues to have fevers which is now improved in the last 24 hours from 101.7-100.0. He had additional studies including repeat computed tomography scan for further evaluation of small bowel obstruction. He is presently undergoing a small bowel follow-through to confirm complete versus partial small bowel obstruction. He is currently on pressors however improved. Fever curve is improving. I ordered an ultrasound of the abdomen with presence of gallstones found on CT scan including fevers and elevated LFTs. After 2 hrs, contrast going through the small bowel. He had clearance of contrast from his CT. REVIEW OF ORGAN SYSTEMS: Temperature curve improved from 11.7-100.0. He is on full mechanical ventilation. PHYSICAL EXAM: VITALS: Reviewed CONSTITUTIONAL: Well developed and in no acute distress. EYES: Conjuctivae without sclera icterus. HEAD, EARS, NOSE, THROAT: Moist buccal mucosa. Head is atraumatic, normocephalic. No nasal drainage. Nasogastric tube present and functioning. NECK: Supple. No thyroidomegaly. RESPIRATORY: Mechanical ventilation. No gross wheezes. CARDIOVASCULAR: Tachycardic. Extremities without edema. Palpable 2+ radial pulses. ABDOMEN: Soft. Mild distention. No peritonitis. No guarding or rigidity. Nasogastric tube bilious output, over 850 in 24 hours yesterday. MUSCULOSKELETAL: Nail and fingers with good capillary refill. SKIN: Warm and well perfused with good skin turgor. NEUROLOGIC: Patient sedated. PSYCH: Patient sedated CLINCAL LABS: Reviewed. Lactate on presentation 11.2 down to 2.8. Yesterday lactate was 2.9. WBC down from 15,400-10,700. WBC up from 10,400. Lipase normal. LFTs improving. IMAGING: Small bowel follow-through shows contrast from stomach into small intestine and after 2 hours. Previous contrast and CT cleared. This is my personal interpretation. RADIOLOGY: Full complete small bowel follow-through still pending. MEDICAL REPORT: Echo report reviewed with ejection fraction 30-35% ASSESSMENT: 1. Abnormal computed tomography scan with small bowel distention 2. Abdominal aortic aneurysm 3. Uncontrolled diabetes type 2 with hyperglycemia 4. Lactic acidosis 5. Acute respiratory failure 6. Dementia PLAN: 1. I personally spoke to managed care analyst of small bowel follow-through. With his high surgical risk, small bowel follow-through will help to elucidate closed- loop bowel obstruction versus partial small bowel obstruction. 2. Patient overall in guarded prognosis and high surgical risk for mortality in the intraoperative and perioperative with multiple comorbidities present. 3. Please continue nasogastric tube decompression and interim. 4. Will recheck later on today including poor results for small bowel follow- through. Critical care time 34 minutes. Objective - Vital Signs Vital signs: Vital Signs Temp 100 F H 10/25/19 08:00 Pulse 100 10/25/19 10:00 Resp 30 H 10/25/19 10:00 BP 114/67 10/25/19 08:30 Pulse Ox 96 10/25/19 10:00 Intake & Output 10/24/19 10/25/19 10/25/19 18:59 06:59 18:59 Intake Total 5757.536 4432.169 695.908 Output Total 2150 1855 705 Balance -839.701 -398.831 -9.092 Weight 81.9 kg 80.1 kg Intake: IV 1150 468 Magnesium Sulfate-D5w Pmx 100 1 gm In Dextrose/Water 1 100ml.bag @ 100 mls/hr IVPB Q1H [facility] Rx#: [id number] Piperacillin-Tazobactam 3 200 .375 gm In Sodium Chloride 0.9% 100 ml @ 25 mls/hr IVPB Q8H IN[facility] Rx#: [id number] Potassium Chloride 20 meq 100 In Water For Injection 1 100ml.bag @ 50 mls/hr IVPB Q2H IN[facility] Rx#: [id number] Pressure Bag 18 Sodium Bicarb (amps) 750 150 Sodium Chloride 0.45% 1, 200 000 ml @ 100 mls/hr IV . Q10H INDU Rx#:[id number] metroNIDAZOLE-NS PMX 500 100 mg In Saline 1 100ml.bag @ 100 mls/hr IVPB Q8HR IN[facility] Rx#:[id number] Intake, IV Titration 1310.299 306.169 227.908 Amount Dextrose 5% in Water 1, 75 000 ml @ 75 mls/hr IV . [id number] INDU with Sodium Bicarb (1 Meq/ml) 150 ml Rx#:[id number] Dextrose 5%-0.45% NaCl 1, 150 000 ml @ 150 mls/hr IV . Q6H40M [facility] Rx#:[id number] Insulin Regular 100 unit 30.671 62.334 15.865 In Sodium Chloride 0.9% 100 ml @ Per Protocol IV .Q0M INDU Rx#:[id number] Midazolam HCl 50 mg In 82.517 44.6 63.817 Sodium Chloride 0.9% 40 ml @ 1 MG/HR 1 mls/hr IV .Q24H IN[facility] Rx#:[id number] Norepinephrine 32 mg In 147.111 24.235 148.226 Sodium Chloride 0.9% 218 ml @ 0.42 MCG/KG/MIN 14. 805 mls/hr IV .[id number] [facility] Rx#:[id number] Sodium Chloride 0.9% 1, 900 000 ml @ 100 mls/hr IV . Q10H IN[facility] Rx#:[id number] metroNIDAZOLE-NS PMX 500 100 mg In Saline 1 100ml.bag @ 100 mls/hr IVPB Q8HR [facility] Rx#:[id number] Output: Gastric Drainage 450 750 300 Urine 1700 1105 405 Other: Voiding Method Indwelling Catheter Indwelling Catheter ABP, PAP, CO, CI - Last Documented Arterial Blood Pressure 105/46 - Labs CBC & Chem 7: 10/25/19 02:00 10/25/19 11:35 Labs: Abnormal Lab Results - Last 24 Hours (Table) 10/24/19 10/24/19 10/24/19 Range/Units 04:10 10:59 12:19 WBC (3.8-10.6) k/uL RBC (4.30-5.90) m/uL Hgb (13.0-17.5) gm/dL Hct (39.0-53.0) % MCV (80.0-100.0) fL Plt Count (150-450) k/uL Neutrophils # (1.3-7.7) k/uL Lymphocytes # (1.0-4.8) k/uL ABG pH (7.35-7.45) ABG pCO2 (35-45) mmHg ABG pO2 (83-108) mmHg Sodium (137-145) mmol/L Potassium (3.5-5.1) mmol/L Chloride (98-107) mmol/L Carbon Dioxide (22-30) mmol/L BUN (9-20) mg/dL Creatinine (0.66-1.25) mg/dL Glucose (74-99) mg/dL POC Glucose (mg/dL) 186 H 204 H (75-99) mg/dL Plasma Lactic Acid Fredrick (0.7-2.0) mmol/L Calcium (8.4-10.2) mg/dL Magnesium (1.6-2.3) mg/dL AST (17-59) U/L ALT (4-49) U/L Total Protein (6.3-8.2) g/dL Albumin (3.5-5.0) g/dL Procalcitonin 17.88 H (0.02-0.09) ng/mL 10/24/19 10/24/19 10/24/19 Range/Units 13:21 13:56 15:52 WBC (3.8-10.6) k/uL RBC (4.30-5.90) m/uL Hgb (13.0-17.5) gm/dL Hct (39.0-53.0) % MCV (80.0-100.0) fL Plt Count (150-450) k/uL Neutrophils # (1.3-7.7) k/uL Lymphocytes # (1.0-4.8) k/uL ABG pH (7.35-7.45) ABG pCO2 (35-45) mmHg ABG pO2 (83-108) mmHg Sodium (137-145) mmol/L Potassium (3.5-5.1) mmol/L Chloride (98-107) mmol/L Carbon Dioxide (22-30) mmol/L BUN (9-20) mg/dL Creatinine (0.66-1.25) mg/dL Glucose (74-99) mg/dL POC Glucose (mg/dL) 205 H 187 H 226 H (75-99) mg/dL Plasma Lactic Acid Fredrick (0.7-2.0) mmol/L Calcium (8.4-10.2) mg/dL Magnesium (1.6-2.3) mg/dL AST (17-59) U/L ALT (4-49) U/L Total Protein (6.3-8.2) g/dL Albumin (3.5-5.0) g/dL Procalcitonin (0.02-0.09) ng/mL 10/24/19 10/24/19 10/24/19 Range/Units 16:05 17:02 17:54 WBC (3.8-10.6) k/uL RBC (4.30-5.90) m/uL Hgb (13.0-17.5) gm/dL Hct (39.0-53.0) % MCV (80.0-100.0) fL Plt Count (150-450) k/uL Neutrophils # (1.3-7.7) k/uL Lymphocytes # (1.0-4.8) k/uL ABG pH (7.35-7.45) ABG pCO2 (35-45) mmHg ABG pO2 (83-108) mmHg Sodium (137-145) mmol/L Potassium (3.5-5.1) mmol/L Chloride (98-107) mmol/L Carbon Dioxide (22-30) mmol/L BUN (9-20) mg/dL Creatinine (0.66-1.25) mg/dL Glucose (74-99) mg/dL POC Glucose (mg/dL) 250 H 256 H (75-99) mg/dL Plasma Lactic Acid Fredrick 2.9 H* (0.7-2.0) mmol/L Calcium (8.4-10.2) mg/dL Magnesium (1.6-2.3) mg/dL AST (17-59) U/L ALT (4-49) U/L Total Protein (6.3-8.2) g/dL Albumin (3.5-5.0) g/dL Procalcitonin (0.02-0.09) ng/mL 10/24/19 10/24/19 10/24/19 Range/Units 19:19 20:23 21:58 WBC (3.8-10.6) k/uL RBC (4.30-5.90) m/uL Hgb (13.0-17.5) gm/dL Hct (39.0-53.0) % MCV (80.0-100.0) fL Plt Count (150-450) k/uL Neutrophils # (1.3-7.7) k/uL Lymphocytes # (1.0-4.8) k/uL ABG pH (7.35-7.45) ABG pCO2 (35-45) mmHg ABG pO2 (83-108) mmHg Sodium (137-145) mmol/L Potassium (3.5-5.1) mmol/L Chloride (98-107) mmol/L Carbon Dioxide (22-30) mmol/L BUN (9-20) mg/dL Creatinine (0.66-1.25) mg/dL Glucose (74-99) mg/dL POC Glucose (mg/dL) 265 H 331 H 256 H (75-99) mg/dL Plasma Lactic Acid Fredrick (0.7-2.0) mmol/L Calcium (8.4-10.2) mg/dL Magnesium (1.6-2.3) mg/dL AST (17-59) U/L ALT (4-49) U/L Total Protein (6.3-8.2) g/dL Albumin (3.5-5.0) g/dL Procalcitonin (0.02-0.09) ng/mL 10/24/19 10/25/19 10/25/19 Range/Units 23:08 00:18 01:10 WBC (3.8-10.6) k/uL RBC (4.30-5.90) m/uL Hgb (13.0-17.5) gm/dL Hct (39.0-53.0) % MCV (80.0-100.0) fL Plt Count (150-450) k/uL Neutrophils # (1.3-7.7) k/uL Lymphocytes # (1.0-4.8) k/uL ABG pH (7.35-7.45) ABG pCO2 (35-45) mmHg ABG pO2 (83-108) mmHg Sodium (137-145) mmol/L Potassium (3.5-5.1) mmol/L Chloride (98-107) mmol/L Carbon Dioxide (22-30) mmol/L BUN (9-20) mg/dL Creatinine (0.66-1.25) mg/dL Glucose (74-99) mg/dL POC Glucose (mg/dL) 232 H 189 H 238 H (75-99) mg/dL Plasma Lactic Acid Fredrick (0.7-2.0) mmol/L Calcium (8.4-10.2) mg/dL Magnesium (1.6-2.3) mg/dL AST (17-59) U/L ALT (4-49) U/L Total Protein (6.3-8.2) g/dL Albumin (3.5-5.0) g/dL Procalcitonin (0.02-0.09) ng/mL 10/25/19 10/25/19 10/25/19 Range/Units 02:00 02:00 02:00 WBC 10.7 H (3.8-10.6) k/uL RBC 3.67 L (4.30-5.90) m/uL Hgb 12.1 L (13.0-17.5) gm/dL Hct 37.1 L (39.0-53.0) % MCV 101.0 H (80.0-100.0) fL Plt Count 94 L (150-450) k/uL Neutrophils # 9.6 H (1.3-7.7) k/uL Lymphocytes # 0.8 L (1.0-4.8) k/uL ABG pH (7.35-7.45) ABG pCO2 (35-45) mmHg ABG pO2 (83-108) mmHg Sodium 149 H (137-145) mmol/L Potassium 3.3 L (3.5-5.1) mmol/L Chloride 118 H (98-107) mmol/L Carbon Dioxide 21 L (22-30) mmol/L BUN 43 H (9-20) mg/dL Creatinine 2.19 H (0.66-1.25) mg/dL Glucose 218 H (74-99) mg/dL POC Glucose (mg/dL) (75-99) mg/dL Plasma Lactic Acid Fredrick (0.7-2.0) mmol/L Calcium 6.6 L (8.4-10.2) mg/dL Magnesium 1.5 L (1.6-2.3) mg/dL AST 635 H (17-59) U/L ALT 777 H (4-49) U/L Total Protein 4.2 L (6.3-8.2) g/dL Albumin 1.9 L (3.5-5.0) g/dL Procalcitonin (0.02-0.09) ng/mL 10/25/19 10/25/19 10/25/19 Range/Units 02:04 03:15 04:08 WBC (3.8-10.6) k/uL RBC (4.30-5.90) m/uL Hgb (13.0-17.5) gm/dL Hct (39.0-53.0) % MCV (80.0-100.0) fL Plt Count (150-450) k/uL Neutrophils # (1.3-7.7) k/uL Lymphocytes # (1.0-4.8) k/uL ABG pH (7.35-7.45) ABG pCO2 (35-45) mmHg ABG pO2 (83-108) mmHg Sodium (137-145) mmol/L Potassium (3.5-5.1) mmol/L Chloride (98-107) mmol/L Carbon Dioxide (22-30) mmol/L BUN (9-20) mg/dL Creatinine (0.66-1.25) mg/dL Glucose (74-99) mg/dL POC Glucose (mg/dL) 221 H 259 H 214 H (75-99) mg/dL Plasma Lactic Acid Fredrick (0.7-2.0) mmol/L Calcium (8.4-10.2) mg/dL Magnesium (1.6-2.3) mg/dL AST (17-59) U/L ALT (4-49) U/L Total Protein (6.3-8.2) g/dL Albumin (3.5-5.0) g/dL Procalcitonin (0.02-0.09) ng/mL 10/25/19 10/25/19 10/25/19 Range/Units 05:17 05:29 05:40 WBC (3.8-10.6) k/uL RBC (4.30-5.90) m/uL Hgb (13.0-17.5) gm/dL Hct (39.0-53.0) % MCV (80.0-100.0) fL Plt Count (150-450) k/uL Neutrophils # (1.3-7.7) k/uL Lymphocytes # (1.0-4.8) k/uL ABG pH 7.51 H (7.35-7.45) ABG pCO2 28 L (35-45) mmHg ABG pO2 65 L (83-108) mmHg Sodium (137-145) mmol/L Potassium (3.5-5.1) mmol/L Chloride (98-107) mmol/L Carbon Dioxide (22-30) mmol/L BUN (9-20) mg/dL Creatinine (0.66-1.25) mg/dL Glucose (74-99) mg/dL POC Glucose (mg/dL) 190 H (75-99) mg/dL Plasma Lactic Acid Fredrick 2.8 H* (0.7-2.0) mmol/L Calcium (8.4-10.2) mg/dL Magnesium (1.6-2.3) mg/dL AST (17-59) U/L ALT (4-49) U/L Total Protein (6.3-8.2) g/dL Albumin (3.5-5.0) g/dL Procalcitonin (0.02-0.09) ng/mL 10/25/19 10/25/19 10/25/19 Range/Units 06:13 06:59 08:25 WBC (3.8-10.6) k/uL RBC (4.30-5.90) m/uL Hgb (13.0-17.5) gm/dL Hct (39.0-53.0) % MCV (80.0-100.0) fL Plt Count (150-450) k/uL Neutrophils # (1.3-7.7) k/uL Lymphocytes # (1.0-4.8) k/uL ABG pH (7.35-7.45) ABG pCO2 (35-45) mmHg ABG pO2 (83-108) mmHg Sodium (137-145) mmol/L Potassium (3.5-5.1) mmol/L Chloride (98-107) mmol/L Carbon Dioxide (22-30) mmol/L BUN (9-20) mg/dL Creatinine (0.66-1.25) mg/dL Glucose (74-99) mg/dL POC Glucose (mg/dL) 186 H 213 H 196 H (75-99) mg/dL Plasma Lactic Acid Fredrick (0.7-2.0) mmol/L Calcium (8.4-10.2) mg/dL Magnesium (1.6-2.3) mg/dL AST (17-59) U/L ALT (4-49) U/L Total Protein (6.3-8.2) g/dL Albumin (3.5-5.0) g/dL Procalcitonin (0.02-0.09) ng/mL 10/25/19 10/25/19 Range/Units 09:29 10:10 WBC (3.8-10.6) k/uL RBC (4.30-5.90) m/uL Hgb (13.0-17.5) gm/dL Hct (39.0-53.0) % MCV (80.0-100.0) fL Plt Count (150-450) k/uL Neutrophils # (1.3-7.7) k/uL Lymphocytes # (1.0-4.8) k/uL ABG pH (7.35-7.45) ABG pCO2 (35-45) mmHg ABG pO2 (83-108) mmHg Sodium (137-145) mmol/L Potassium (3.5-5.1) mmol/L Chloride (98-107) mmol/L Carbon Dioxide (22-30) mmol/L BUN (9-20) mg/dL Creatinine (0.66-1.25) mg/dL Glucose (74-99) mg/dL POC Glucose (mg/dL) 198 H 184 H (75-99) mg/dL Plasma Lactic Acid Fredrick (0.7-2.0) mmol/L Calcium (8.4-10.2) mg/dL Magnesium (1.6-2.3) mg/dL AST (17-59) U/L ALT (4-49) U/L Total Protein (6.3-8.2) g/dL Albumin (3.5-5.0) g/dL Procalcitonin (0.02-0.09) ng/mL Microbiology - Last 24 Hours (Table) 10/25/19 04:45 Urine Culture - Preliminary Urine,Catheterized 10/24/19 19:42 Gram Stain - Preliminary Sputum Sputum Culture - Preliminary 10/23/19 21:45 Blood Culture - Preliminary Blood No Growth after 24 hours 10/23/19 21:30 Blood Culture - Preliminary Blood No Growth after 24 hours 10/21/19 18:20 Blood Culture - Preliminary Blood No Growth after 72 hours Assessment and Plan (1) Hyponatremia Current Visit: Yes Status: Acute Code(s): E87.1 - HYPO-OSMOLALITY AND HYPONATREMIA SNOMED Code(s): 01394525 (2) Hyperkalemia Current Visit: Yes Status: Acute Code(s): E87.5 - HYPERKALEMIA SNOMED Code(s): 88284755 (3) Sigmoid diverticulitis Current Visit: Yes Status: Acute Code(s): K57.32 - DVTRCLI OF LG INT W/O PERFORATION OR ABSCESS W/O BLEEDING SNOMED Code(s): 477911950 (4) Dynamic ileus Current Visit: Yes Status: Acute Code(s): K56.7 - ILEUS, UNSPECIFIED SNOMED Code(s): 18705032 (5) Hyperosmolar syndrome Current Visit: Yes Status: Acute Code(s): E87.0 - HYPEROSMOLALITY AND HYPERNATREMIA SNOMED Code(s): 22817967 (6) Hyperosmolarity due to secondary diabetes mellitus Current Visit: Yes Status: Acute Code(s): E13.00 - OTH DIAB W HYPROSM W/O NONKET HYPRGLY-HYPROS COMA ([facility]) SNOMED Code(s): 21611064 (7) Altered mental state Current Visit: No Status: Acute Code(s): R41.82 - ALTERED MENTAL STATUS, UNSPECIFIED SNOMED Code(s): 988528297 (8) Dementia Current Visit: No Status: Acute Code(s): F03.90 - UNSPECIFIED DEMENTIA WITHOUT BEHAVIORAL DISTURBANCE SNOMED Code(s): 93028399 (9) Renal insufficiency syndrome Current Visit: No Status: Acute Code(s): N28.9 - DISORDER OF KIDNEY AND URETER, UNSPECIFIED SNOMED Code(s): 298032512 (10) Shock liver Current Visit: Yes Status: Acute Code(s): K72.00 - ACUTE AND SUBACUTE HEPATIC FAILURE WITHOUT COMA SNOMED Code(s): 146748177 (11) Sepsis Current Visit: Yes Status: Acute Code(s): A41.9 - SEPSIS, UNSPECIFIED ORGANISM SNOMED Code(s): 89837836
--- NOTE | 2019-10-25 11:27 | P.PN ---
Subjective Progress Note Date: 10/25/19 80-year-old male patient known history of dementia, diabetes hypertension osteoarthritis in addition to abdominal aortic aneurysm, presented to the ED with altered mentation and severe dehydration. The patient's was noted to have elevated blood sugars at home which prompted this hospital visit. He was unable to provide any history at time of admission. He was confused and disoriented and his condition was progressively getting worse over this past few weeks. He apparently had generalized weakness, falls, and he was not seeking any medical attention. He has Alzheimer's dementia. His has Alzheimer's dementia also. Apparently his oral intake has been minimal and the patient was drinking only 4 L of soda on a daily basis. He has been noncompliant his diabetic medications also. A blood sugar of more than 1800. Sodium was 116. Potassium was 5.7 with a chloride of 74 and a serum bicarbonate 8 with an anion gap of 34. Creatinine was 2.4 with a BUN of 33. The serum lactate was 11.7. Troponin was 0.8. Phosphorus was 8.8. Lipase was 229. UA showed +4 glucose and the serum acetone was negative. The patient received a total of 4 L of IV fluids in the emergency department. He was started on an insulin drip. Currently the patient is on half-normal saline with 20 mEq of potassium. The patient metabolic acidosis improving. Based on the follow-up blood gases the pH was 7.0 and septal 7.13. Serum bicarb is also on the rise. The serum pCO2 is 26. Troponin 38. This was done and FiO2 of 36%. Sodium level improved and septal 131 and a potassium level is at 3.8. Anion gap is improving is down to 28. Creatinine is still at 2.1. Most recent blood sugar shows that the sugar is still elevated above 600 with a serum measurement of 1230. The chest x-ray shows some sub segmental atelectasis in the right lower lobe. CAT scan of the brain shows no evidence of any acute hemorrhage. There is some degenerative changes and nonspecific white matter changes consistent with remote ischemia. EKG showing sinus tachycardia along with Q waves over the anteroseptal leads consistent with an old infarct. Heart rate is around 102. On today's evaluation of 10/22/2019, the patient is still lethargic and somnolent and encephalopathic. He is unable to volunteer any history. He has dementia. Furthermore there has been significant metabolic disturbances, leading to his impaired mentation. In terms of his blood sugar control, the patient has been on insulin drip at 3 units an hour. His IV fluids have been running in the form of D5 half-normal saline along with 20 mEq of potassium at the rate of 150 mL an hour. The patient was receiving another 2 L of IV fluid bolus based on the fact that it looks quite dry with very dry mucosal membranes on today's evaluation. In terms of his blood sugar control, the blood sugar was steadily going down and after the blood sugar went down below 300 was switched him to a D5 half-normal saline solution. His anion gap is at 10. The serum bicarb is at 18. His lactic acid level has dropped down to 6.0. His troponin peaked at 2.2. Denies having any chest pain. Note that his based on troponin was at 0.8. His EKG showed old Q-wave changes over the anteroseptal leads and echocardiac Tito was done today and the patient was found to have a ejection fraction estimated to be around 30-35% along with anteroseptal and apical hypokinesis. No evidence of an aortic valve stenosis. Unable to estimate the right-sided pressures. Unable to have a good visualization of the rest of the valves. His white cell count of 15.4. His antibiotic coverage includes a combination of Rocephin and Zithromax and Diflucan for now. There is some erythema along the penile tip and the Maradiaga catheter is in place. Repeat chest x-ray from today shows atelectatic changes in the right lower lobe. No other significant abnormalities have been noted. The patient is currently on 4 L of oxygen by nasal cannula with a pulse ox of 98%. He still has some underlying sinus tachycardia. On today's evaluation of 10/23/2019 the patient's condition decompensated. I have already contacted the son and updated them on his father's condition. Note that by yesterday afternoon, the patient became progressively more restless, agitated, shortness of breath, and he was also indicating the possibility of abdominal distention and pain. He was hard to communicate with him as the patient was not providing any meaningful information and he was altered mentally. Nevertheless, we suspected that the patient was having increased abdominal pain and discomfort. At that point, decided to insert an NG tube and immediately approximately a liter of gastric juice was obtained as a return. Abdomen remained quite tender and distended. At that point, the patient was also becoming more hypotensive. He was given more IV fluids. He was intubated and placed on a mechanical ventilator. Post intubation, the patient became hypotensive and he was started on IV pressors. Blood gases was noted. Chest x- ray was noted. The patient was developing a right lower lobe pulmonary infiltration. He was taken down for a CAT scan of the abdomen and pelvis and the CAT scan showed evidence of a infiltrate in the right lung base and fatty infiltration of the liver and some multiple calcified gallstones and the bile ducts were not dilated. At the same time, the CAT scan showed a fusiform 4.4 cm lower abdominal aortic aneurysm. There was no evidence of any retroperitoneal lymphadenopathy. There was multiple diverticula in the sigmoid colon and multiple dilated air fluid filled loops of the small bowel and the small bowel was dilated up to 4 cm in size. There was also mild wall thickening of the ascending colon. There was also minimal fat stranding around the sigmoid colon. There was osteoarthritis of the right hip. Antibiotics were modified and the patient was started on IV Zosyn. This morning, the patient is sedated with propofol at 20 g. This is to be switched to Versed at the patient's triglyceride level came up above 500. The patient is receiving IV fluids in the form of normal saline at rate of 100 mL an hour. His urine output is diminished and the patient's creatinine is at 2.5. The neck fluid balance over the past 24 hours has been +5.3 L. The patient is currently on norepinephrine infusion running at 0.4 mcg/kg per minute. The patient is also on insulin drip at 9 units an hour. Noted the blood sugar control is improved and the patient's lactic acid level was also improving it was down to 3.7. During the course of this treatment, the patient developed also a shock liver with elevated AST and ALT. He developed an acute kidney injury on top of his chronic kidney failure with a creatinine maxing at 2.7 down to 2.5. The patient is currently on a mechanical ventilator on assist control mode at the rate of 28 with tidal volume of 500 and FiO2 of 60% with a PEEP of 5. Morning blood gases showed a pH of 7.39 with a pCO2 of 26 and pO2 of 185. Morning chest x-ray showed right lower lobe pulmonary infiltration and subsequently a triple-lumen catheter was inserted and the supportive living catheter was inserted without any complications. Surgical consultation was also obtained regarding the abdominal findings. On 10/24/2019, the patient remains critically ill. The patient remains in shock and this is most likely a septic shock following an acute hypovolemic shock. The patient initially presented with HHS. Subsequently the patient started acting septic and the source is most likely the abdomen. The patient had a elevated TROPONIN level. Lactic acid levels were elevated and the patient had abdominal pain and distention. NG tube was inserted and a CAT scan of the abdomen was done that showed findings suggesting small bowel obstruction and some inflammatory changes involving the ascending colon and the sigmoid. Nevertheless, there was no evidence of any acute abdomen or pneumoperitoneum with ischemic bowel. The patient was kept on Zosyn and Flagyl was added. He did have difficulties with his hemodynamics and the patient was on and off becoming hypotensive and he was getting IV fluids to maintain a CVP above 10. The patient is currently receiving normal saline at the rate of 100 mL an hour. He is also on vasopressin at physiologic dose of 0.03 units per minute and the patient is on norepinephrine running at 0.38 g per KG per minute. Abdomen is still slightly distended and the patient is a bit tender and he can grimace upon abdominal [id number] white him being sedated with Versed which is running at 6 mg an hour. Gen. surgery will be asked to evaluate this patient. NG tube is in place and output over the past 24 hours has been in the order of 400 mL of gastric material. No bowel movements yet. He is having episodes of fever and the patient has had a temperature max of 11.1 and a temperature is down to 99.8. The patient had 2 additional sets of blood cultures sent patient was given a dose of vancomycin yesterday. This was done pending further cultur es. Meanwhile, the patient remains on a mechanical ventilator. This morning, he remained on assist control mode with a tidal volume of 500 and FiO2 of 40% with a PEEP of 5. Chest x-ray is showing stable bilateral pulmonary infiltrates and atelectatic changes in lung bases. ET tube in good location so in the OG- tube. Her blood gases showed a pH of 7.39 with a pCO2 of 25 and pO2 of 67 and this was on above-mentioned ventilator setting. Lactic acid level is gradually dropped down to 3.0. The patient has shock liver. LFTs are considerably abnormal and the numbers are improving. AST is down to 2153 and ALT is down to 1107. As stated, neck yesterday dropped down to 3.2, the creatinine is still elevated at 2.2 with a BUN of 39 and the patient has a mild anion gap metabolic acidosis with a gap of 11 which is improved and his serum bicarbonate of 15. On today's evaluation of 10/25/2019, the patient remains critically ill. Remains intubated on a mechanical ventilator and remains sedated. On today's evaluation, he had an assist-control mode of ventilation and the patient is at the rate of 28 with a tidal volume of 500 and FiO2 of 50% with a PEEP of 5. The blood gases Show a pH of 7.51 with a pCO2 of 28 and pO2 of 65 and I think this is a essentially respiratory alkalosis as the patient's metabolic acidosis has recovered and the patient's serum bicarbonate was up to 22 while being given a bicarb infusion. The chest x-ray from today shows no significant interval change compared to yesterday's chest x-ray. There is a elevation of the right hemidiaphragm. The ET tube and NG tube remains in place. There is a left subclavian triple-lumen catheter in place. In my opinion, the patient remains quite septic. The patient is still having episodes of fever. The patient rem ains in shock and pressor dependent. Vasopressin is running at physiologic dose and the norepinephrine infusion has been drop down to 0.3 g per KG per minute. I had a discussion with the general surgeon and will going to continue the conservative approach. Patient is considered to be a high surgical risk for even exploration. Meanwhile, NG tube is in place and has drained approximately 900 mL of gastric material over the past 24 hours. Abdomen is slightly improved and less distended compared to yesterday. There is some mild direct tenderness without rebound tenderness. The patient is hypoactive in terms of his bowel sounds. Extremities abdomen is being done for a small bowel follow-through. The patient remains on insulin which is running at 2.5 units an hour for blood sugar control. The patient is on bicarb drip that he'll be taken off and this will decision to half-normal saline as the patient has also developed some hypernatremia. Serum bicarb is up to 21. He is having episodes of fever still. All of the repeat blood cultures came back negative. Hemoglobin is at 12.5. White cell count is at 10.7. Platelet count has dropped down to 94% is stable compared to yesterday. Objective - Vital Signs Vital signs: Vital Signs Temp 100 F H 10/25/19 08:00 Pulse 100 10/25/19 10:00 Resp 30 H 10/25/19 10:00 BP 114/67 10/25/19 08:30 Pulse Ox 96 10/25/19 10:00 Intake & Output 10/24/19 10/25/19 10/25/19 18:59 06:59 18:59 Intake Total 0096.619 7494.169 695.908 Output Total 2150 1855 705 Balance -839.701 -398.831 -9.092 Weight 81.9 kg 80.1 kg Intake: IV 1150 468 Magnesium Sulfate-D5w Pmx 100 1 gm In Dextrose/Water 1 100ml.bag @ 100 mls/hr IVPB Q1H IN[facility] Rx#: [id number] Piperacillin-Tazobactam 3 200 .375 gm In Sodium Chloride 0.9% 100 ml @ 25 mls/hr IVPB Q8H IN[facility] Rx#: [id number] Potassium Chloride 20 meq 100 In Water For Injection 1 100ml.bag @ 50 mls/hr IVPB Q2H IDNU Rx#: [id number] Pressure Bag 18 Sodium Bicarb (amps) 750 150 Sodium Chloride 0.45% 1, 200 000 ml @ 100 mls/hr IV . Q10H INDU Rx#:[id number] metroNIDAZOLE-NS PMX 500 100 mg In Saline 1 100ml.bag @ 100 mls/hr IVPB Q8HR INDU Rx#:[id number] Intake, IV Titration 1310.299 306.169 227.908 Amount Dextrose 5% in Water 1, 75 000 ml @ 75 mls/hr IV . [id number] INDU with Sodium Bicarb (1 Meq/ml) 150 ml Rx#:[id number] Dextrose 5%-0.45% NaCl 1, 150 000 ml @ 150 mls/hr IV . Q6H40M INDU Rx#:[id number] Insulin Regular 100 unit 30.671 62.334 15.865 In Sodium Chloride 0.9% 100 ml @ Per Protocol IV .Q0M INDU Rx#:[id number] Midazolam HCl 50 mg In 82.517 44.6 63.817 Sodium Chloride 0.9% 40 ml @ 1 MG/HR 1 mls/hr IV .Q24H INDU Rx#:[id number] Norepinephrine 32 mg In 147.111 24.235 148.226 Sodium Chloride 0.9% 218 ml @ 0.42 MCG/KG/MIN 14. 805 mls/hr IV .[id number] IN[facility] Rx#:[id number] Sodium Chloride 0.9% 1, 900 000 ml @ 100 mls/hr IV . Q10H INDU Rx#:[id number] metroNIDAZOLE-NS PMX 500 100 mg In Saline 1 100ml.bag @ 100 mls/hr IVPB Q8HR INDU Rx#:[id number] Output: Gastric Drainage 450 750 300 Urine 1700 1105 405 Other: Voiding Method Indwelling Catheter Indwelling Catheter ABP, PAP, CO, CI - Last Documented Arterial Blood Pressure 105/46 - Exam Gen. appearance the patient is sedated, comfortable likely distress currently on versed running at 6 mg an hour. The patient is withdrawing to deep painful stimulation. No signs of respiratory distress. The patient has an orogastric and orotracheal tube are both of them are in place. Head exam was generally normal. There was no scleral icterus or corneal arcus. Mucous membranes were dry Neck was supple and without jugular venous distension, thyromegaly, or carotid bruits. Carotids were easily palpable bilaterally. There was no adenopathy. The patient has a left subclavian triple-lumen catheter in place Lungs were clear to auscultation and percussion, and with normal diaphragmatic excursion. No wheezes or rales were noted. Cardiac exam revealed the PMI to be normally situated and sized. The rhythm was regular and no extrasystoles were noted during several minutes of auscultation. The first and second heart sounds were normal and physiologic splitting of the second heart sound was noted. There were no murmurs, rubs, clicks, or gallops. Abdominal exam revealed normal bowel sounds. The patient has hypoactive bowel sounds. The patient's abdomen is slightly distended. No direct tenderness or rebound tensile guarding at this point in time. NG tube is in place. Organ enlargement cannot be palpated on today's evaluation. I feel that there is some direct tenderness upon examination although the examination itself is limited as the patient is currently sedated with Versed. Extremities reveal chronic ulceration lower extremities bilaterally with diminished pulses. No cyanosis or clubbing. There is no open wounds or cellulitis in the lower extremities. Neurologic the patient is sedated, comfortable and no focal neurological deficits have been noted. - Labs CBC & Chem 7: 10/25/19 02:00 10/25/19 02:00 Labs: Abnormal Lab Results - Last 24 Hours (Table) 10/24/19 10/24/19 10/24/19 Range/Units 04:10 12:19 13:21 WBC (3.8-10.6) k/uL RBC (4.30-5.90) m/uL Hgb (13.0-17.5) gm/dL Hct (39.0-53.0) % MCV (80.0-100.0) fL Plt Count (150-450) k/uL Neutrophils # (1.3-7.7) k/uL Lymphocytes # (1.0-4.8) k/uL ABG pH (7.35-7.45) ABG pCO2 (35-45) mmHg ABG pO2 (83-108) mmHg Sodium (137-145) mmol/L Potassium (3.5-5.1) mmol/L Chloride (98-107) mmol/L Carbon Dioxide (22-30) mmol/L BUN (9-20) mg/dL Creatinine (0.66-1.25) mg/dL Glucose (74-99) mg/dL POC Glucose (mg/dL) 204 H 205 H (75-99) mg/dL Plasma Lactic Acid Fredrick (0.7-2.0) mmol/L Calcium (8.4-10.2) mg/dL Magnesium (1.6-2.3) mg/dL AST (17-59) U/L ALT (4-49) U/L Total Protein (6.3-8.2) g/dL Albumin (3.5-5.0) g/dL Procalcitonin 17.88 H (0.02-0.09) ng/mL 10/24/19 10/24/19 10/24/19 Range/Units 13:56 15:52 16:05 WBC (3.8-10.6) k/uL RBC (4.30-5.90) m/uL Hgb (13.0-17.5) gm/dL Hct (39.0-53.0) % MCV (80.0-100.0) fL Plt Count (150-450) k/uL Neutrophils # (1.3-7.7) k/uL Lymphocytes # (1.0-4.8) k/uL ABG pH (7.35-7.45) ABG pCO2 (35-45) mmHg ABG pO2 (83-108) mmHg Sodium (137-145) mmol/L Potassium (3.5-5.1) mmol/L Chloride (98-107) mmol/L Carbon Dioxide (22-30) mmol/L BUN (9-20) mg/dL Creatinine (0.66-1.25) mg/dL Glucose (74-99) mg/dL POC Glucose (mg/dL) 187 H 226 H (75-99) mg/dL Plasma Lactic Acid Fredrick 2.9 H* (0.7-2.0) mmol/L Calcium (8.4-10.2) mg/dL Magnesium (1.6-2.3) mg/dL AST (17-59) U/L ALT (4-49) U/L Total Protein (6.3-8.2) g/dL Albumin (3.5-5.0) g/dL Procalcitonin (0.02-0.09) ng/mL 10/24/19 10/24/19 10/24/19 Range/Units 17:02 17:54 19:19 WBC (3.8-10.6) k/uL RBC (4.30-5.90) m/uL Hgb (13.0-17.5) gm/dL Hct (39.0-53.0) % MCV (80.0-100.0) fL Plt Count (150-450) k/uL Neutrophils # (1.3-7.7) k/uL Lymphocytes # (1.0-4.8) k/uL ABG pH (7.35-7.45) ABG pCO2 (35-45) mmHg ABG pO2 (83-108) mmHg Sodium (137-145) mmol/L Potassium (3.5-5.1) mmol/L Chloride (98-107) mmol/L Carbon Dioxide (22-30) mmol/L BUN (9-20) mg/dL Creatinine (0.66-1.25) mg/dL Glucose (74-99) mg/dL POC Glucose (mg/dL) 250 H 256 H 265 H (75-99) mg/dL Plasma Lactic Acid Fredrick (0.7-2.0) mmol/L Calcium (8.4-10.2) mg/dL Magnesium (1.6-2.3) mg/dL AST (17-59) U/L ALT (4-49) U/L Total Protein (6.3-8.2) g/dL Albumin (3.5-5.0) g/dL Procalcitonin (0.02-0.09) ng/mL 10/24/19 10/24/19 10/24/19 Range/Units 20:23 21:58 23:08 WBC (3.8-10.6) k/uL RBC (4.30-5.90) m/uL Hgb (13.0-17.5) gm/dL Hct (39.0-53.0) % MCV (80.0-100.0) fL Plt Count (150-450) k/uL Neutrophils # (1.3-7.7) k/uL Lymphocytes # (1.0-4.8) k/uL ABG pH (7.35-7.45) ABG pCO2 (35-45) mmHg ABG pO2 (83-108) mmHg Sodium (137-145) mmol/L Potassium (3.5-5.1) mmol/L Chloride (98-107) mmol/L Carbon Dioxide (22-30) mmol/L BUN (9-20) mg/dL Creatinine (0.66-1.25) mg/dL Glucose (74-99) mg/dL POC Glucose (mg/dL) 331 H 256 H 232 H (75-99) mg/dL Plasma Lactic Acid Fredrick (0.7-2.0) mmol/L Calcium (8.4-10.2) mg/dL Magnesium (1.6-2.3) mg/dL AST (17-59) U/L ALT (4-49) U/L Total Protein (6.3-8.2) g/dL Albumin (3.5-5.0) g/dL Procalcitonin (0.02-0.09) ng/mL 10/25/19 10/25/19 10/25/19 Range/Units 00:18 01:10 02:00 WBC 10.7 H (3.8-10.6) k/uL RBC 3.67 L (4.30-5.90) m/uL Hgb 12.1 L (13.0-17.5) gm/dL Hct 37.1 L (39.0-53.0) % MCV 101.0 H (80.0-100.0) fL Plt Count 94 L (150-450) k/uL Neutrophils # 9.6 H (1.3-7.7) k/uL Lymphocytes # 0.8 L (1.0-4.8) k/uL ABG pH (7.35-7.45) ABG pCO2 (35-45) mmHg ABG pO2 (83-108) mmHg Sodium (137-145) mmol/L Potassium (3.5-5.1) mmol/L Chloride (98-107) mmol/L Carbon Dioxide (22-30) mmol/L BUN (9-20) mg/dL Creatinine (0.66-1.25) mg/dL Glucose (74-99) mg/dL POC Glucose (mg/dL) 189 H 238 H (75-99) mg/dL Plasma Lactic Acid Fredrick (0.7-2.0) mmol/L Calcium (8.4-10.2) mg/dL Magnesium (1.6-2.3) mg/dL AST (17-59) U/L ALT (4-49) U/L Total Protein (6.3-8.2) g/dL Albumin (3.5-5.0) g/dL Procalcitonin (0.02-0.09) ng/mL 10/25/19 10/25/19 10/25/19 Range/Units 02:00 02:00 02:04 WBC (3.8-10.6) k/uL RBC (4.30-5.90) m/uL Hgb (13.0-17.5) gm/dL Hct (39.0-53.0) % MCV (80.0-100.0) fL Plt Count (150-450) k/uL Neutrophils # (1.3-7.7) k/uL Lymphocytes # (1.0-4.8) k/uL ABG pH (7.35-7.45) ABG pCO2 (35-45) mmHg ABG pO2 (83-108) mmHg Sodium 149 H (137-145) mmol/L Potassium 3.3 L (3.5-5.1) mmol/L Chloride 118 H (98-107) mmol/L Carbon Dioxide 21 L (22-30) mmol/L BUN 43 H (9-20) mg/dL Creatinine 2.19 H (0.66-1.25) mg/dL Glucose 218 H (74-99) mg/dL POC Glucose (mg/dL) 221 H (75-99) mg/dL Plasma Lactic Acid Fredrick (0.7-2.0) mmol/L Calcium 6.6 L (8.4-10.2) mg/dL Magnesium 1.5 L (1.6-2.3) mg/dL AST 635 H (17-59) U/L ALT 777 H (4-49) U/L Total Protein 4.2 L (6.3-8.2) g/dL Albumin 1.9 L (3.5-5.0) g/dL Procalcitonin (0.02-0.09) ng/mL 10/25/19 10/25/19 10/25/19 Range/Units 03:15 04:08 05:17 WBC (3.8-10.6) k/uL RBC (4.30-5.90) m/uL Hgb (13.0-17.5) gm/dL Hct (39.0-53.0) % MCV (80.0-100.0) fL Plt Count (150-450) k/uL Neutrophils # (1.3-7.7) k/uL Lymphocytes # (1.0-4.8) k/uL ABG pH 7.51 H (7.35-7.45) ABG pCO2 28 L (35-45) mmHg ABG pO2 65 L (83-108) mmHg Sodium (137-145) mmol/L Potassium (3.5-5.1) mmol/L Chloride (98-107) mmol/L Carbon Dioxide (22-30) mmol/L BUN (9-20) mg/dL Creatinine (0.66-1.25) mg/dL Glucose (74-99) mg/dL POC Glucose (mg/dL) 259 H 214 H (75-99) mg/dL Plasma Lactic Acid Fredrick (0.7-2.0) mmol/L Calcium (8.4-10.2) mg/dL Magnesium (1.6-2.3) mg/dL AST (17-59) U/L ALT (4-49) U/L Total Protein (6.3-8.2) g/dL Albumin (3.5-5.0) g/dL Procalcitonin (0.02-0.09) ng/mL 10/25/19 10/25/19 10/25/19 Range/Units 05:29 05:40 06:13 WBC (3.8-10.6) k/uL RBC (4.30-5.90) m/uL Hgb (13.0-17.5) gm/dL Hct (39.0-53.0) % MCV (80.0-100.0) fL Plt Count (150-450) k/uL Neutrophils # (1.3-7.7) k/uL Lymphocytes # (1.0-4.8) k/uL ABG pH (7.35-7.45) ABG pCO2 (35-45) mmHg ABG pO2 (83-108) mmHg Sodium (137-145) mmol/L Potassium (3.5-5.1) mmol/L Chloride (98-107) mmol/L Carbon Dioxide (22-30) mmol/L BUN (9-20) mg/dL Creatinine (0.66-1.25) mg/dL Glucose (74-99) mg/dL POC Glucose (mg/dL) 190 H 186 H (75-99) mg/dL Plasma Lactic Acid Fredrick 2.8 H* (0.7-2.0) mmol/L Calcium (8.4-10.2) mg/dL Magnesium (1.6-2.3) mg/dL AST (17-59) U/L ALT (4-49) U/L Total Protein (6.3-8.2) g/dL Albumin (3.5-5.0) g/dL Procalcitonin (0.02-0.09) ng/mL 10/25/19 10/25/19 10/25/19 Range/Units 06:59 08:25 09:29 WBC (3.8-10.6) k/uL RBC (4.30-5.90) m/uL Hgb (13.0-17.5) gm/dL Hct (39.0-53.0) % MCV (80.0-100.0) fL Plt Count (150-450) k/uL Neutrophils # (1.3-7.7) k/uL Lymphocytes # (1.0-4.8) k/uL ABG pH (7.35-7.45) ABG pCO2 (35-45) mmHg ABG pO2 (83-108) mmHg Sodium (137-145) mmol/L Potassium (3.5-5.1) mmol/L Chloride (98-107) mmol/L Carbon Dioxide (22-30) mmol/L BUN (9-20) mg/dL Creatinine (0.66-1.25) mg/dL Glucose (74-99) mg/dL POC Glucose (mg/dL) 213 H 196 H 198 H (75-99) mg/dL Plasma Lactic Acid Fredrick (0.7-2.0) mmol/L Calcium (8.4-10.2) mg/dL Magnesium (1.6-2.3) mg/dL AST (17-59) U/L ALT (4-49) U/L Total Protein (6.3-8.2) g/dL Albumin (3.5-5.0) g/dL Procalcitonin (0.02-0.09) ng/mL 10/25/19 Range/Units 10:10 WBC (3.8-10.6) k/uL RBC (4.30-5.90) m/uL Hgb (13.0-17.5) gm/dL Hct (39.0-53.0) % MCV (80.0-100.0) fL Plt Count (150-450) k/uL Neutrophils # (1.3-7.7) k/uL Lymphocytes # (1.0-4.8) k/uL ABG pH (7.35-7.45) ABG pCO2 (35-45) mmHg ABG pO2 (83-108) mmHg Sodium (137-145) mmol/L Potassium (3.5-5.1) mmol/L Chloride (98-107) mmol/L Carbon Dioxide (22-30) mmol/L BUN (9-20) mg/dL Creatinine (0.66-1.25) mg/dL Glucose (74-99) mg/dL POC Glucose (mg/dL) 184 H (75-99) mg/dL Plasma Lactic Acid Fredrick (0.7-2.0) mmol/L Calcium (8.4-10.2) mg/dL Magnesium (1.6-2.3) mg/dL AST (17-59) U/L ALT (4-49) U/L Total Protein (6.3-8.2) g/dL Albumin (3.5-5.0) g/dL Procalcitonin (0.02-0.09) ng/mL Microbiology - Last 24 Hours (Table) 10/25/19 04:45 Urine Culture - Preliminary Urine,Catheterized 10/24/19 19:42 Gram Stain - Preliminary Sputum Sputum Culture - Preliminary 10/23/19 21:45 Blood Culture - Preliminary Blood No Growth after 24 hours 10/23/19 21:30 Blood Culture - Preliminary Blood No Growth after 24 hours 10/21/19 18:20 Blood Culture - Preliminary Blood No Growth after 72 hours Assessment and Plan Plan: 1 shock with profound hypotension and the patient has been aggressively resuscitated IV fluids and currently patient is also on pressors. Initially, the presentation was mainly hypovolemic shock and subsequently there is concern about septic shock due to the above-mentioned comorbidities. The patient may have an abdominal source of ischemia for which he just surgery This has been obtained and the patient was started on IV Zosyn. The patient has a small bowel obstruction and possible ischemic large bowel involving the ascending and sig moid colon/colitis. Note that the lactic acid level is improved. Nevertheless, the patient remains in shock requiring high doses of pressors including norepinephrine and the patient is also physiologic dose of vasopressin. Antibiotic coverage including a combination of Zosyn and Flagyl and the patient was given a dose of vancomycin pending further cultures. The patient remains pressor dependent. The patient remains on a combination of norepinephrine and vasopressin for now. The cultures are all negative. The patient has an NG tube in place and output has been noted. A small bowel follow-through is in progress. He remains hemodynamically unstable. He remains in shock. He remains critically ill. 2 acute abdominal distention/pain with further workup indicating small bowel ileus/obstruction in addition the possibility of ascending and sigmoid colitis. The patient is currently on IV Zosyn and Flagyl.. NG tube is in place and the patient is placed into a bowel rest. The abdomen is slightly distended on today's evaluation. I think there is some direct tenderness. Ultrasound abdomen was done and showed some gallstones with some thickening of the gallbladder. An follow-through abdominal x-rays being done to evaluate the contrast within its passing the small bowel. According to the surgeon, there is a picture of ileus/bowel obstruction and she is going to follow-up on the small bowel follow-through x-ray images. 3 acute hyperosmolar nonketotic diabetic syndrome with severe hyperglycemia and intravascular volume depletion/dehydration, and the patient was resuscitated aggressively with IV fluids and the patient is currently on insulin drip at 2.5 units an hour and the blood sugars under better control for now. 4 acute kidney injury secondary to above versus chronic renal failure, creis slightly improved compared to yesterday 5 acut hypoxic respiratory failure, currently intubated on a mechanical ventilator. 6 altered mental status secondary to above, And the patient is currently intubated on a mechanical ventilator and was sedated 7 diabetes mellitus, maintained oral hypoglycemics with poor compliance, currently on insulin drip 8 alzheimer's dementia 9 pseudohyponatremia, related to severe hyperglycemia, improved 10 History of hypertension 11 penile erythema 12 4.6 cm distal abdominal aortic aneurysm extending to the aortic bifurcation and involving the common iliac arteries with indwelling BILATERAL ILIAC ENDOLUMINAL STENT GRAFT, Unchanged in the most recent CAT scan of the abdomen and pelvis 13 peripheral vascular disease 14 troponin leak, consider Ischemia type 2, the troponin peaked at 2.25 15 acute shock liver secondary to hypotension , improving 16 CHF with ischemic cardiomyopathy and ejection fraction of 30-35% in addition to 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 17 severe lactic acidosis secondary to to above, improving Plan Continue IV fluand switch this patient to half-normal saline at the rate of 100 mL an hour Continue insulin drip and titrate the dose Continue IV Zosyn and Flagyl and the cultures of been negative Monitor CVP and keep him above 10 Continue physiologic dose of vasopressin Continue pressors with norepinephrine dose of 0.3 g per KG per minute Monitor lactic acid levels, which is improved for now Echocardiogram showed impaired LV function with an ejection fraction of 3035% with segmental wall motion abnormalities Awaiting the results of the small bowel follow-through Chest surgical consultation has been done and the input is appreciated Keep the patient nothing by mouth and keep the most arrest with an NG tube in place Monitor renal function Chest x-ray was noted Blood gases was noted Monitor liver function tests that the patient is currently shock liver Carries a high mortality risk Contacted the son and informed him of the above-mentioned conditions. His condition is critical and this evaluation was on a more than 30 minutes. Time with Patient: Greater than 30
[2019-10-25 11:36] LABS: Glucose,Whole Blood 162 mg/dL (75-99)
[2019-10-25 13:08] LABS: Glucose,Whole Blood 159 mg/dL (75-99)
--- NOTE | 2019-10-25 13:22 | FL ---
EXAMINATION TYPE: FL small bowel follow through DATE OF EXAM: 10/25/2019 COMPARISON: CT abdomen 10/24/2019 HISTORY: Small bowel obstruction TECHNIQUE: Oral administration of 200 mL of water-soluble contrast. An additional 50 mL water-soluble contrast was placed at approximately 2 hours. Contrast was placed through the NG tube. Multiple over head radiographs were obtained. FINDINGS: Key Carrier view: Preliminary abdominal film was obtained. Small amount contrast may be within the colon fr om prior exam. Prior abdominal aortic aneurysm repair is evident. There is some air within the colon. Following the oral administration of contrast contrast fills the proximal jejunum. Loops are somewhat prominent. At 35 minutes the area in the right mid abdomen is evident which because of subsequent im ages is likely the obstruction. This is more definitive at 85 minute image and 90 minute image. This area is monitored for severe stenosis versus complete obstruction. This area appears to remain stable without additional contrast passing at 240 minutes. Complete obstruction in the right midabdomen dis david jejunal region is felt to be present. A corresponding abnormality on the CT examination cannot be identified. Contrast passing beyond this level is not identified to suggest high-grade obstruction w hich was likely present previously. Report was called and case discussed with the surgeon, Dr. Brit larios, by Dr. Escobar by telephone at 1305 hours 10/25/2019. IMPRESSION: 1. Early complete obstruction felt to be present in the distal jejunum which is in the right midabdo men just above the iliac crest level on these images.
--- NOTE | 2019-10-25 14:21 | P.PN ---
Progress Note - Text Progress Note Date: 10/25/19 Notified by radiology regarding results of small bowel follow-through. Findings consistent with complete small bowel obstruction within the mid small intestine. I personally spoke to advanced manufacturing engineer Dr. Shell regarding results. Patient overall deemed high surgical risk for mortality with current multiple comorbidities including recent liver shock, lactic acidemia, severe hyperglycemia, acute and chronic renal failure, dementia as well. The patient's nurse contacted his son. Speaker conference performed with nurse as witness. I spoke to the son that complete small bowel obstruction does require surgical intervention with exploratory laparotomy and small bowel resection; however with his father's current condition, the patient is high risk of mortality during intraoperative and perioperative period. Additionally hospice was discussed. He made mention that his mother is also on hospice secondary to severe dementia. His son will also speak to other family members. Surgery on hold today per family wishes. He also voiced understanding that surgery may lead to his father's demise. He is agreeable with repeating studies for tomorrow with final decision. He was made aware that closed loop small bowel obstruction is time sensitive within 24 to 48 hrs and will need surgical intervention during hospital stay not delayed by weeks.
[2019-10-25 15:19] LABS: Glucose,Whole Blood 131 mg/dL (75-99)
[2019-10-25 16:13] LABS: Glucose,Whole Blood 138 mg/dL (75-99)
--- NOTE | 2019-10-25 16:41 | P.PN ---
Progress Note - Text Progress Note Date: 10/25/19 Interval history: 79-year-old male with PMH of diabetes mellitus on oral hypoglycemics, con pascual presents the ED for altered mentation. Apparently, patient was visited by his nurse who noted an extremely high blood glucose which prompted his hospital visit. Patient is altered and he is unable to provide any meaningful history. Majority of documentation was obtained from chart review and discussion with his son. Apparently, patient has been confused and disoriented which is progressive ly been worsening over the past 2 weeks. His son reports that the patient fell a week ago and did not seek medical attention. Patient lives with his who is suffering from advanced Alzheimer's dementia and is currently in hospice. According to the son, patient drinks 4 L of soda on a daily basis. Son reports that patient is noncompliant with her diabetic diet. In the ED, vital signs showed a T low of 97.5 Fahrenheit, pulse of 102, tachypnea with respiratory rate of 28, BP of 85/49 and 89% on room air. CBC showed leukocytosis of 11 and MCV of 124.1. ABG showed pH of 7, pCO2 19, bica rbonate of 8. CMP showed sodium of 116, potassium of 5.7, chloride of 74, bicarbonate of 8, BUN 33, creatinine 2.18, glucose greater than 1875. Troponin was 0.881 with EKG showing sinus tachycardia. Urinalysis shows 4+ glucose and trace blood. Acetone was negative. CT brain was negative for hemorrhage but showed slightly hyperdense left MCA compared to right. Chest x-ray showed possible right lower lobe infiltrate. Patient is admitted to ICU for sepsis, troponin elevation and diabetic ketoacidosis. Intubated. Patient developed ischemic hepatitis. Sepsis. today-ICU. Patient is drips include IV vasopressin, norepinephrine, does 11, insulin. NG tube is still hooked up to suction. For about 100 mL an hour. Patient scheduled for small bowel follow-through this afternoon. Telemetry shows sinus rhythm. Patient sedated Review of systems cannot be done patient intubated Active Medications Aspirin (Aspirin) 81 mg PO DAILY [facility] Last Admin: 10/25/19 10:25 Dose: 81 mg Documented by: Chlorhexidine Gluconate (Peridex) 15 ml MUCOUS MEM BID [facility] Last Admin: 10/25/19 10:25 Dose: 15 ml Documented by: Heparin Sodium (Porcine) (Heparin) 5,000 unit SQ Q8HR INDU Last Admin: 10/25/19 15:39 Dose: 5,000 unit Documented by: Hydromorphone HCl (Dilaudid) 1 mg IVP Q4HR PRN PRN Reason: Pain Last Admin: 10/24/19 14:51 Dose: 1 mg Documented by: Piperacillin Sod/Tazobactam (Sod 3.375 gm/ Sodium Chloride) 100 mls @ 25 mls/hr IVPB Q8H INDU Last Admin: 10/25/19 12:52 Dose: 25 mls/hr Documented by: Midazolam HCl 50 mg/ Sodium (Chloride) 50 mls @ 1 mls/hr IV .Q24H INDU; Protocol Last Titration: 10/25/19 13:08 Dose: 3 mg/hr, 3 mls/hr Documented by: Norepinephrine Bitartrate 32 (mg/ Sodium Chloride) 250 mls @ 14.805 mls/hr IV .[id number] INDU; Protocol Last Titration: 10/25/19 13:30 Dose: 0.23 mcg/kg/min, 8.108 mls/hr Documented by: Insulin Human Regular 100 unit (/ Sodium Chloride) 101 mls @ 0 mls/hr IV .Q0M INDU; Protocol Last Titration: 10/25/19 15:20 Dose: 3 unit/hr, 3.03 mls/hr Documented by: Vasopressin 60 unit/ Sodium (Chloride) 153 mls @ 4.59 mls/hr IV .Q24H INDU Last Admin: 10/24/19 14:40 Dose: 4.59 mls/hr Documented by: Metronidazole 500 mg/ IV (Solution) 100 mls @ 100 mls/hr IVPB Q8HR INDU Last Admin: 10/25/19 15:38 Dose: 100 mls/hr Documented by: Sodium Chloride (Saline 0.45%) 1,000 mls @ 100 mls/hr IV .Q10H INDU Last Admin: 10/25/19 08:29 Dose: 100 mls/hr Documented by: Potassium Chloride 20 meq/ IV (Solution) 100 mls @ 50 mls/hr IVPB Q2H INDU; Protocol Stop: 10/25/19 17:59 Last Admin: 10/25/19 15:38 Dose: 50 mls/hr Documented by: Miscellaneous Information (Pneumonia Protocol Utilized) 1 each PO ONCE PRN PRN Reason: Per Protocol Miscellaneous Information (Phosphorus Per Protocol) 1 each MISCELLANE DAILY PRN; Protocol PRN Reason: Per Protocol Miscellaneous Information (Magnesium Per Protocol) 1 each MISCELLANE DAILY PRN; Protocol PRN Reason: Per Protocol Miscellaneous Information (Potassium Per Protocol) 1 each MISCELLANE DAILY PRN; Protocol PRN Reason: Per Protocol Miscellaneous Information (Potassium Per Protocol) 1 each MISCELLANE DAILY PRN; Protocol PRN Reason: Per Protocol Naloxone HCl (Narcan) 0.2 mg IV Q2M PRN PRN Reason: Opioid Reversal Nitroglycerin (Nitrostat) 0.4 mg SUBLINGUAL Q5M PRN PRN Reason: Chest Pain Pantoprazole Sodium (Protonix) 40 mg IV DAILY INDU Last Admin: 10/25/19 10:25 Dose: 40 mg Documented by: On examination: VITAL SIGNS: r 100, 90, 26, 121/52, 97% GENERAL APPEARANCE: laying in bed, sedated, intubated. HEENT: Normal external appearance of nose and ear. Oral cavity -endotracheal tube, NG tube to suction EYES: Pupils equal. Conjunctiva normal. NECK: JVD unable to assess. Mass not palpable. RESPIRATORY: Respiratory effort increased. Lungs -decreased breath sounds CARDIOVASCULAR: First and second sounds normal. No edema. ABDOMEN: Soft. Liver and spleen not palpable. No tenderness. No mass palpable. PSYCHIATRY: unable to assess, patient sedated INVESTIGATIONS, reviewed in the clinical context: White count 10.7 hemoglobin 12.1 platelets 94 sodium 149 potassium 3.3 bun 43 creatinine 2.19 AST 635 ALT 777 albumin 1.9 Small bowel follow-through showing early complete obstruction in the distal jejunum Previous testing: White count 11 hemoglobin 13.7 platelets 383 Sodium 116, bicarb 8, bun 33, creatinine 2.18 glucose 1875 troponin I 0.88 1 Rusty-19 PCR-not detected computed tomography scan of the brain without contrast-no acute degenerative changes Ultrasound kidney-limited exam 2-D echocardiogram-EF 30-35%, anteroseptal apical hypokinesia AST 3453, ALT 1264, computed tomography scan of the abdomen and pelvis without contrast-dilated multiple loops of small bowel some free fluid in the paracolic gutter bilateral lower lobe pulmonary infiltrates, fusiform 4.4 cm lower abdominal aortic aneurysm with aortoiliac endograft multiple diverticula of the sigmoid colon. Mild wall thickening of the ascending colon. Blood cultures from October 20-negative Assessment: -acute nonketotic hyperosmolar diabetes with severe hyperglycemia, POA -Acute small bowel obstruction, and distal jejunal obstruction-NG tube to suction -Acute hypoxic respiratory failure requiring mechanical ventilator support-slow to respond -Acute metabolic encephalopathy from above-slow to respond -Alzheimer's dementia -Pseudohyponatremia from severe hyperglycemia -4.4 cm distal abdominal aortic aneurysm with the endoluminal stent graft -Peripheral arterial disease -Acute shock liver secondary to hypotensive improving -Chronic congestive heart failure from systolic dysfunction EF 30-35% -Sepsis with septic shock, possible community acquired pneumonia -Metabolic encephalopathy likely due to the above -Non-ST elevation HI likely type II from demand ischemia, POA -Acute kidney injury likely ATN -Possibly chronic kidney disease -essential hypertension -Pneumonia suspect gram-negative organism Plan: Patient's current medications include insulin drip, IV Vasotec present, norepinephrine, midazolam, insulin drip. Antibodies include IV Flagyl and IV Zosyn. Patient now on small bowel shows distal jejunal bowel obstruction. Foll ow with Dr. Dhaliwal.
--- NOTE | 2019-10-25 16:43 | PN ---
PROGRESS NOTE Patient is seen for followup for acute kidney injury. Patient's renal function has been improving. Serum creatinine is down to 2.1 from 2.7 at peak. He currently has good urine output. The patient is on the vent. He is sedated. Levophed is being weaned down. FiO2 is at 40%. Blood pressure this morning was 106/53, heart rate of 102 per minute. Patient is afebrile. Examination shows bilateral breath sounds are heard. Patient is sedated, he is on the vent. Abdomen is soft. Examination of lower extremities shows no significant edema. LIFESTYLE DIRECTOR exam cannot be performed. The patient has an NG tube in place. LAB: Show sodium 149, potassium 3.3, chloride 118, CO2 is 21, BUN 43, creatinine 2.19, calcium 6.6, magnesium 1.5. ASSESSMENT: 1. Acute kidney injury, acute tubular necrosis, nonoliguric. Currently improving. Etiology is hypotension, hypoperfusion. 2. Possible chronic kidney disease with creatinine 1.2-1.5 in July of 2018. 3. Severe metabolic acidosis secondary to diabetic ketoacidosis. 4. Diabetic ketoacidosis status post insulin drip. 5. Ileus, being followed by surgery, currently with an NG tube in place. 6. Acute hypoxic respiratory failure, currently on the vent. 7. Hyperkalemia on initial admission, currently improved, now hypokalemic. 8. Hypernatremia associated with free water deficit, maintained on half-normal saline. PLAN: Continue half-normal saline. If serum sodium does not improve will change to D5W tomorrow. Replace potassium and magnesium. Repeat labs in a.m. Continue to avoid nephrotoxic agents. MMODL / IJN: [id number] /
[2019-10-25 17:11] LABS: Glucose,Whole Blood 138 mg/dL (75-99)
[2019-10-25] MEDS: NOREPINEPHRINE 32 MG in SODIUM CHLORIDE 0.9% 218 ML IV SCH (17:53)
[2019-10-25 17:57] LABS: Glucose,Whole Blood 144 mg/dL (75-99)
[2019-10-25] MEDS: SODIUM CHLORIDE 0.9% 150 ML with VASOPRESSIN 60 UNIT IV SCH ×2 (20:10)
[2019-10-25 20:16] LABS: Glucose,Whole Blood 118 mg/dL (75-99)
[2019-10-25] MEDS: HYDROmorphone 1 MG/ML 1 ML SYRINGE IVP PRN (20:22)
[2019-10-25 21:17] LABS: Glucose,Whole Blood 164 mg/dL (75-99)
[2019-10-25 22:05] LABS: Phosphorus 2.6 mg/dL (2.5-4.5); Potassium 3.6 mmol/L (3.5-5.1)
[2019-10-25 22:45] LABS: Glucose,Whole Blood 157 mg/dL (75-99)
[2019-10-25 23:19] LABS: Glucose,Whole Blood 155 mg/dL (75-99)
[2019-10-26 00:14] LABS: Glucose,Whole Blood 155 mg/dL (75-99)
[2019-10-26] MEDS: POTASSIUM CHLORIDE 10 MEQ in WATER FOR INJECTION 1 100ML.BAG IVPB SCH ×4 (01:06→12:56)
[2019-10-26 01:12] LABS: Glucose,Whole Blood 126 mg/dL (75-99)
[2019-10-26 02:08] LABS: Glucose,Whole Blood 132 mg/dL (75-99)
[2019-10-26] MEDS: HYDROmorphone 1 MG/ML 1 ML SYRINGE IVP PRN ×3 (02:46→18:56)
[2019-10-26 04:19] LABS: Glucose,Whole Blood 210 mg/dL (75-99)
[2019-10-26] MEDS: INSULIN REGULAR 100 UNIT in SODIUM CHLORIDE 0.9% 100 ML IV SCH (04:22)
[2019-10-26 04:58] LABS: Glucose,Whole Blood 196 mg/dL (75-99)
[2019-10-26 05:26] LABS: ABG Base Excess -6.4 mmol/L; ABG HCO3 19 mmol/L (21-25); ABG Oxygen Saturation 95.2 % (94-97); ABG PCO2 32 mmHg (35-45); ABG PH 7.38 (7.35-7.45); ABG PO2 79 mmHg (83-108); ABG TCO2 20 mmol/L (19-24); Allen Test Performed? Yes
[2019-10-26 06:05] LABS: Glucose,Whole Blood 234 mg/dL (75-99)
[2019-10-26] MEDS: PIPERACILLIN-TAZOBACTAM 3.375 GM in SODIUM CHLORIDE 0.9% 100 ML IVPB SCH ×3 (06:26→20:13)
[2019-10-26] MEDS: SODIUM CHLORIDE 0.45% 1,000 ML IV SCH (06:26)
--- NOTE | 2019-10-26 06:39 | XR ---
EXAMINATION TYPE: XR chest 1V portable DATE OF EXAM: 10/26/2019 HISTORY: Tube placement. REFERENCE: Previous study dated 10/25/2019. FINDINGS: There is worsening opacity of both lung bases. I suspect effusions. Heart size is obscured. IMPRESSION: WORSENING BILATERAL PNEUMONIA.
--- NOTE | 2019-10-26 06:41 | XR ---
EXAMINATION TYPE: XR abdomen 2V , 3 VIEWS DATE OF EXAM ORDERED: 10/26/2019 HISTORY: bowel obstruction. COMPARISON: Previous study dated 10/25/2019. FINDINGS: Contrast has dilated and moved into the colon. The abdominal gas pattern is within normal limits. There is no obstruction or free air. There is bibasilar airspace disease. There are small, bi lateral effusions. There is a left hip arthroplasty in place. IMPRESSION: CONTRAST HAS MADE IT INTO THE COLON AND THERE IS NO EVIDENCE OF BOWEL OBSTRUCTION AT THIS TIME.
[2019-10-26 07:14] LABS: Glucose,Whole Blood 156 mg/dL (75-99)
[2019-10-26 07:15] LABS: Phosphorus 2.8 mg/dL (2.5-4.5)
[2019-10-26] MEDS: metroNIDAZOLE-NS PMX 500 MG in SALINE 1 100ML.BAG IVPB SCH ×2 (08:01→17:30)
[2019-10-26] MEDS: HEPARIN SODIUM,PORCINE 5,000 UNIT/ML 1 ML VIAL SQ SCH ×2 (08:05→17:30)
[2019-10-26] MEDS: CHLORHEXIDINE GLUCONATE 15 ML CUP MUCOUS MEM SCH ×2 (08:05→20:13)
[2019-10-26] MEDS: PANTOPRAZOLE 40 MG/10 ML VIAL IV SCH (08:07)
[2019-10-26 08:08] LABS: Calcium 6.6 mg/dL (8.4-10.2); Potassium 3.6 mmol/L (3.5-5.1)
[2019-10-26 08:12] LABS: Glucose,Whole Blood 201 mg/dL (75-99)
[2019-10-26 08:36] LABS: Basophils % (A) 0 %; Eosinophils # (A) 0.1 k/uL (0-0.7); Eosinophils % (A) 1 %; HCT 34.7 % (39.0-53.0); Hypochromasia Slight; Lymphocytes # (A) 0.7 k/uL (1.0-4.8); Lymphocytes % (A) 8 %; MCH 32.8 pg (25.0-35.0); MCHC 31.7 g/dL (31.0-37.0); MCV 103.5 fL (80.0-100.0); Macrocytosis Slight; Monocytes # (A) 0.3 k/uL (0-1.0); Monocytes % (A) 3 %; Neutrophils # (A) 8.4 k/uL (1.3-7.7); Neutrophils % (A) 87 %; RBC 3.35 m/uL (4.30-5.90); WBC 9.6 k/uL (3.8-10.6)
[2019-10-26 08:46] LABS: Platelet Count 84 k/uL (150-450)
[2019-10-26] MEDS ORDERED: Potassium Replacement Protocol 1 EACH MISC MISCELLANE PRN (08:47)
[2019-10-26] MEDS: SODIUM CHLORIDE 0.9% 500 ML 500 ML IV SCH (09:05)
--- NOTE | 2019-10-26 09:27 | P.PN ---
Subjective Progress Note Date: 10/26/19 CHIEF COMPLAINT: Sepsis HISTORY OF PRESENT ILLNESS: The patient is a 79 year old male who presented [facility] [facility] to the hospital October 20 with altered mental status changes, dehydration, blood sugar glucose over 1875, baseline dementia and elevated troponins. During his hospitalization, he developed bowel obstruction per small bowel follow through. He is on less pressors today. Moderate decrease output from his NGT. No bowel movement. NO FEVER OVER 100! REVIEW OF ORGAN SYSTEMS: Temperature curve improved from 101.7 down to 99.2. He is on full mechanical ventilation. PHYSICAL EXAM: VITALS: Reviewed CONSTITUTIONAL: Well developed and in no acute distress. EYES: Conjuctivae without sclera icterus. HEAD, EARS, NOSE, THROAT: Moist buccal mucosa. Head is atraumatic, normocephalic. No nasal drainage. Nasogastric tube present and functioning. NECK: Supple. No thyroidomegaly. RESPIRATORY: Mechanical ventilation. No gross wheezes. CARDIOVASCULAR: Tachycardic. Extremities without edema. Palpable 2+ radial pulses. ABDOMEN: Soft. Mild distention. No peritonitis. No guarding or rigidity. Nasogastric tube bilious output, less than 260 mL today in last 8 hrs. MUSCULOSKELETAL: Nail and fingers with good capillary refill. SKIN: Warm and well perfused with good skin turgor. NEUROLOGIC: Patient sedated. PSYCH: Patient sedated CLINCAL LABS: Reviewed. WBC down from 15,400-9600, now normal. IMAGING: Abdominal xray shows contrast in colon including gas in rectum. This is my personal interpretation. ASSESSMENT: 1. Abnormal computed tomography scan with small bowel distention, resolving 2. Abdominal aortic aneurysm 3. Uncontrolled diabetes type 2 with hyperglycemia 4. Lactic acidosis 5. Acute respiratory failure 6. Dementia PLAN: 1. I personally spoke to his son on the phone with his nurse as witness via speaker conference. Resolution of small bowel confirmed clinically with decrease NGT output and abdominal xray. No surgery needed with resolution of bowel obs truction. 2. Dulcolax suppository today. 3. Please do not start diet until 1st bowel movement. 4. Surgery cancelled for exploratory laparotomy. Objective - Vital Signs Vital signs: Vital Signs Temp 99.2 F 10/26/19 08:00 Pulse 92 10/26/19 09:00 Resp 22 10/26/19 09:00 BP 105/61 10/26/19 09:00 Pulse Ox 98 10/26/19 09:00 Intake & Output 10/25/19 10/26/19 10/26/19 18:59 06:59 18:59 Intake Total 5441.348 8275.335 647.563 Output Total 3005 2087 230 Balance -1029.174 -393.665 417.563 Weight 82.4 kg Intake: IV 1616 1672 527.18 Piperacillin-Tazobactam 3 100 100 100 .375 gm In Sodium Chloride 0.9% 100 ml @ 25 mls/hr IVPB Q8H INDU Rx#: [id number] Potassium Chloride 10 meq 200 In Water For Injection 1 100ml.bag @ 100 mls/hr IVPB Q1H INDU Rx#: [id number] Potassium Chloride 20 meq 100 In Water For Injection 1 100ml.bag @ 50 mls/hr IVPB Q2H INDU Rx#: [id number] Pressure Bag 66 72 18 Sodium Bicarb (amps) 150 Sodium Chloride 0.45% 1, 1000 1200 300 000 ml @ 100 mls/hr IV . Q10H INDU Rx#:[id number] Sodium Chloride 0.9% 150 9.18 ml @ 0.03 UNITS/MIN 4.59 mls/hr IV .Q24H INDU with Vasopressin 60 unit Rx#: [id number] metroNIDAZOLE-NS PMX 500 200 100 100 mg In Saline 1 100ml.bag @ 100 mls/hr IVPB Q8HR INDU Rx#:[id number] Intake, IV Titration 359.826 21.335 120.383 Amount Insulin Regular 100 unit 51.502 21.335 11.042 In Sodium Chloride 0.9% 100 ml @ Per Protocol IV .Q0M INDU Rx#:[id number] Midazolam HCl 50 mg In 86.100 9.4 Sodium Chloride 0.9% 40 ml @ 1 MG/HR 1 mls/hr IV .Q24H INDU Rx#:[id number] Norepinephrine 32 mg In 222.224 99.941 Sodium Chloride 0.9% 218 ml @ 0.42 MCG/KG/MIN 14. 805 mls/hr IV .[id number] INDU Rx#:[id number] Output: Gastric Drainage 2100 1275 40 Urine 905 812 190 Other: Voiding Method Indwelling Catheter Indwelling Catheter Indwelling Catheter ABP, PAP, CO, CI - Last Documented Arterial Blood Pressure 121/51 - Labs CBC & Chem 7: 10/26/19 08:20 10/26/19 06:05 Labs: Abnormal Lab Results - Last 24 Hours (Table) 10/25/19 10/25/19 10/25/19 Range/Units 02:00 09:29 10:10 RBC (4.30-5.90) m/uL Hgb (13.0-17.5) gm/dL Hct (39.0-53.0) % MCV (80.0-100.0) fL Plt Count (150-450) k/uL Neutrophils # (1.3-7.7) k/uL Lymphocytes # (1.0-4.8) k/uL ABG pCO2 (35-45) mmHg ABG pO2 (83-108) mmHg ABG HCO3 (21-25) mmol/L Sodium (137-145) mmol/L Potassium (3.5-5.1) mmol/L Chloride (98-107) mmol/L Carbon Dioxide (22-30) mmol/L BUN (9-20) mg/dL Creatinine (0.66-1.25) mg/dL Glucose (74-99) mg/dL POC Glucose (mg/dL) 198 H 184 H (75-99) mg/dL Calcium (8.4-10.2) mg/dL Procalcitonin 15.24 H (0.02-0.09) ng/mL 10/25/19 10/25/19 10/25/19 Range/Units 11:34 11:35 13:07 RBC (4.30-5.90) m/uL Hgb (13.0-17.5) gm/dL Hct (39.0-53.0) % MCV (80.0-100.0) fL Plt Count (150-450) k/uL Neutrophils # (1.3-7.7) k/uL Lymphocytes # (1.0-4.8) k/uL ABG pCO2 (35-45) mmHg ABG pO2 (83-108) mmHg ABG HCO3 (21-25) mmol/L Sodium (137-145) mmol/L Potassium 3.4 L (3.5-5.1) mmol/L Chloride (98-107) mmol/L Carbon Dioxide (22-30) mmol/L BUN (9-20) mg/dL Creatinine (0.66-1.25) mg/dL Glucose (74-99) mg/dL POC Glucose (mg/dL) 162 H 159 H (75-99) mg/dL Calcium (8.4-10.2) mg/dL Procalcitonin (0.02-0.09) ng/mL 10/25/19 10/25/19 10/25/19 Range/Units 14:59 16:11 17:10 RBC (4.30-5.90) m/uL Hgb (13.0-17.5) gm/dL Hct (39.0-53.0) % MCV (80.0-100.0) fL Plt Count (150-450) k/uL Neutrophils # (1.3-7.7) k/uL Lymphocytes # (1.0-4.8) k/uL ABG pCO2 (35-45) mmHg ABG pO2 (83-108) mmHg ABG HCO3 (21-25) mmol/L Sodium (137-145) mmol/L Potassium (3.5-5.1) mmol/L Chloride (98-107) mmol/L Carbon Dioxide (22-30) mmol/L BUN (9-20) mg/dL Creatinine (0.66-1.25) mg/dL Glucose (74-99) mg/dL POC Glucose (mg/dL) 131 H 138 H 138 H (75-99) mg/dL Calcium (8.4-10.2) mg/dL Procalcitonin (0.02-0.09) ng/mL 10/25/19 10/25/19 10/25/19 Range/Units 17:56 20:15 21:16 RBC (4.30-5.90) m/uL Hgb (13.0-17.5) gm/dL Hct (39.0-53.0) % MCV (80.0-100.0) fL Plt Count (150-450) k/uL Neutrophils # (1.3-7.7) k/uL Lymphocytes # (1.0-4.8) k/uL ABG pCO2 (35-45) mmHg ABG pO2 (83-108) mmHg ABG HCO3 (21-25) mmol/L Sodium (137-145) mmol/L Potassium (3.5-5.1) mmol/L Chloride (98-107) mmol/L Carbon Dioxide (22-30) mmol/L BUN (9-20) mg/dL Creatinine (0.66-1.25) mg/dL Glucose (74-99) mg/dL POC Glucose (mg/dL) 144 H 118 H 164 H (75-99) mg/dL Calcium (8.4-10.2) mg/dL Procalcitonin (0.02-0.09) ng/mL 10/25/19 10/25/19 10/26/19 Range/Units 22:45 23:19 00:12 RBC (4.30-5.90) m/uL Hgb (13.0-17.5) gm/dL Hct (39.0-53.0) % MCV (80.0-100.0) fL Plt Count (150-450) k/uL Neutrophils # (1.3-7.7) k/uL Lymphocytes # (1.0-4.8) k/uL ABG pCO2 (35-45) mmHg ABG pO2 (83-108) mmHg ABG HCO3 (21-25) mmol/L Sodium (137-145) mmol/L Potassium (3.5-5.1) mmol/L Chloride (98-107) mmol/L Carbon Dioxide (22-30) mmol/L BUN (9-20) mg/dL Creatinine (0.66-1.25) mg/dL Glucose (74-99) mg/dL POC Glucose (mg/dL) 157 H 155 H 155 H (75-99) mg/dL Calcium (8.4-10.2) mg/dL Procalcitonin (0.02-0.09) ng/mL 10/26/19 10/26/19 10/26/19 Range/Units 01:11 02:06 04:18 RBC (4.30-5.90) m/uL Hgb (13.0-17.5) gm/dL Hct (39.0-53.0) % MCV (80.0-100.0) fL Plt Count (150-450) k/uL Neutrophils # (1.3-7.7) k/uL Lymphocytes # (1.0-4.8) k/uL ABG pCO2 (35-45) mmHg ABG pO2 (83-108) mmHg ABG HCO3 (21-25) mmol/L Sodium (137-145) mmol/L Potassium (3.5-5.1) mmol/L Chloride (98-107) mmol/L Carbon Dioxide (22-30) mmol/L BUN (9-20) mg/dL Creatinine (0.66-1.25) mg/dL Glucose (74-99) mg/dL POC Glucose (mg/dL) 126 H 132 H 210 H (75-99) mg/dL Calcium (8.4-10.2) mg/dL Procalcitonin (0.02-0.09) ng/mL 10/26/19 10/26/19 10/26/19 Range/Units 04:57 05:15 06:03 RBC (4.30-5.90) m/uL Hgb (13.0-17.5) gm/dL Hct (39.0-53.0) % MCV (80.0-100.0) fL Plt Count (150-450) k/uL Neutrophils # (1.3-7.7) k/uL Lymphocytes # (1.0-4.8) k/uL ABG pCO2 32 L (35-45) mmHg ABG pO2 79 L (83-108) mmHg ABG HCO3 19 L (21-25) mmol/L Sodium (137-145) mmol/L Potassium (3.5-5.1) mmol/L Chloride (98-107) mmol/L Carbon Dioxide (22-30) mmol/L BUN (9-20) mg/dL Creatinine (0.66-1.25) mg/dL Glucose (74-99) mg/dL POC Glucose (mg/dL) 196 H 234 H (75-99) mg/dL Calcium (8.4-10.2) mg/dL Procalcitonin (0.02-0.09) ng/mL 10/26/19 10/26/19 10/26/19 Range/Units 06:05 07:13 08:11 RBC (4.30-5.90) m/uL Hgb (13.0-17.5) gm/dL Hct (39.0-53.0) % MCV (80.0-100.0) fL Plt Count (150-450) k/uL Neutrophils # (1.3-7.7) k/uL Lymphocytes # (1.0-4.8) k/uL ABG pCO2 (35-45) mmHg ABG pO2 (83-108) mmHg ABG HCO3 (21-25) mmol/L Sodium 149 H (137-145) mmol/L Potassium (3.5-5.1) mmol/L Chloride 119 H (98-107) mmol/L Carbon Dioxide 20 L (22-30) mmol/L BUN 44 H (9-20) mg/dL Creatinine 1.83 H (0.66-1.25) mg/dL Glucose 210 H (74-99) mg/dL POC Glucose (mg/dL) 156 H 201 H (75-99) mg/dL Calcium 6.6 L (8.4-10.2) mg/dL Procalcitonin (0.02-0.09) ng/mL 10/26/19 Range/Units 08:20 RBC 3.35 L (4.30-5.90) m/uL Hgb 11.0 L (13.0-17.5) gm/dL Hct 34.7 L (39.0-53.0) % MCV 103.5 H (80.0-100.0) fL Plt Count 84 L (150-450) k/uL Neutrophils # 8.4 H (1.3-7.7) k/uL Lymphocytes # 0.7 L (1.0-4.8) k/uL ABG pCO2 (35-45) mmHg ABG pO2 (83-108) mmHg ABG HCO3 (21-25) mmol/L Sodium (137-145) mmol/L Potassium (3.5-5.1) mmol/L Chloride (98-107) mmol/L Carbon Dioxide (22-30) mmol/L BUN (9-20) mg/dL Creatinine (0.66-1.25) mg/dL Glucose (74-99) mg/dL POC Glucose (mg/dL) (75-99) mg/dL Calcium (8.4-10.2) mg/dL Procalcitonin (0.02-0.09) ng/mL Microbiology - Last 24 Hours (Table) 10/23/19 21:45 Blood Culture - Preliminary Blood No Growth after 48 hours 10/23/19 21:30 Blood Culture - Preliminary Blood No Growth after 48 hours 10/21/19 18:20 Blood Culture - Preliminary Blood No Growth after 96 hours 10/25/19 11:35 Blood Fungal Culture - Preliminary Blood 10/25/19 04:45 Urine Culture - Preliminary Urine,Catheterized Assessment and Plan (1) Hyponatremia Current Visit: Yes Status: Acute Code(s): E87.1 - HYPO-OSMOLALITY AND HYPONATREMIA SNOMED Code(s): 15835462 (2) Hyperkalemia Current Visit: Yes Status: Acute Code(s): E87.5 - HYPERKALEMIA SNOMED Code(s): 85161856 (3) Sigmoid diverticulitis Current Visit: Yes Status: Acute Code(s): K57.32 - DVTRCLI OF LG INT W/O PERFORATION OR ABSCESS W/O BLEEDING SNOMED Code(s): 774081695 (4) Dynamic ileus Current Visit: Yes Status: Acute Code(s): K56.7 - ILEUS, UNSPECIFIED SNOMED Code(s): 06179284 (5) Hyperosmolar syndrome Current Visit: Yes Status: Acute Code(s): E87.0 - HYPEROSMOLALITY AND HYPERNATREMIA SNOMED Code(s): 91141384 (6) Hyperosmolarity due to secondary diabetes mellitus Current Visit: Yes Status: Acute Code(s): E13.00 - OTH DIAB W HYPROSM W/O NONKET HYPRGLY-HYPROS COMA ([facility]) SNOMED Code(s): 57781021 (7) Altered mental state Current Visit: No Status: Acute Code(s): R41.82 - ALTERED MENTAL STATUS, UNS PECIFIED SNOMED Code(s): 112372095 (8) Dementia Current Visit: No Status: Acute Code(s): F03.90 - UNSPECIFIED DEMENTIA WITHOUT BEHAVIORAL DISTURBANCE SNOMED Code(s): 68151478 (9) Renal insufficiency syndrome Current Visit: No Status: Acute Code(s): N28.9 - DISORDER OF KIDNEY AND URETER, UNSPECIFIED SNOMED Code(s): 693450979 (10) Shock liver Current Visit: Yes Status: Acute Code(s): K72.00 - ACUTE AND SUBACUTE HEPATIC FAILURE WITHOUT COMA SNOMED Code(s): 433021272 (11) Sepsis Current Visit: Yes Status: Acute Code(s): A41.9 - SEPSIS, UNSPECIFIED ORGANISM SNOMED Code(s): 39474284
[2019-10-26 10:28] LABS: Glucose,Whole Blood 152 mg/dL (75-99)
[2019-10-26] MEDS: ASPIRIN 300 MG SUPP RECTAL SCH (10:39)
[2019-10-26 11:14] LABS: Glucose,Whole Blood 142 mg/dL (75-99)
--- NOTE | 2019-10-26 12:21 | P.PN ---
Subjective Progress Note Date: 10/26/19 80-year-old male patient known history of dementia, diabetes hypertension osteoarthritis in addition to abdominal aortic aneurysm, presented to the ED with altered mentation and severe dehydration. The patient's was noted to have elevated blood sugars at home which prompted this hospital visit. He was unable to provide any history at time of admission. He was confused and disoriented and his condition was progressively getting worse over this past few weeks. He apparently had generalized weakness, falls, and he was not seeking any medical attention. He has Alzheimer's dementia. His has Alzheimer's dementia also. Apparently his oral intake has been minimal and the patient was drinking only 4 L of soda on a daily basis. He has been noncompliant his diabetic medications also. A blood sugar of more than 1800. Sodium was 116. Potassium was 5.7 with a chloride of 74 and a serum bicarbonate 8 with an anion gap of 34. Creatinine was 2.4 with a BUN of 33. The serum lactate was 11.7. Troponin was 0.8. Phosphorus was 8.8. Lipase was 229. UA showed +4 glucose and the serum acetone was negative. The patient received a total of 4 L of IV fluids in the emergency department. He was started on an insulin drip. Currently the patient is on half-normal saline with 20 mEq of potassium. The patient metabolic acidosis improving. Based on the follow-up blood gases the pH was 7.0 and septal 7.13. Serum bicarb is also on the rise. The serum pCO2 is 26. Troponin 38. This was done and FiO2 of 36%. Sodium level improved and septal 131 and a potassium level is at 3.8. Anion gap is improving is down to 28. Creatinine is still at 2.1. Most recent blood sugar shows that the sugar is still elevated above 600 with a serum measurement of 1230. The chest x-ray shows some sub segmental atelectasis in the right lower lobe. CAT scan of the brain shows no evidence of any acute hemorrhage. There is some degenerative changes and nonspecific white matter changes consistent with remote ischemia. EKG showing sinus tachycardia along with Q waves over the anteroseptal leads consistent with an old infarct. Heart rate is around 102. On today's evaluation of 10/22/2019, the patient is still lethargic and somnolent and encephalopathic. He is unable to volunteer any history. He has dementia. Furthermore there has been significant metabolic disturbances, leading to his impaired mentation. In terms of his blood sugar control, the patient has been on insulin drip at 3 units an hour. His IV fluids have been running in the form of D5 half-normal saline along with 20 mEq of potassium at the rate of 150 mL an hour. The patient was receiving another 2 L of IV fluid bolus based on the fact that it looks quite dry with very dry mucosal membranes on today's evaluation. In terms of his blood sugar control, the blood sugar was steadily going down and after the blood sugar went down below 300 was switched him to a D5 half-normal saline solution. His anion gap is at 10. The serum bicarb is at 18. His lactic acid level has dropped down to 6.0. His troponin peaked at 2.2. Denies having any chest pain. Note that his based on troponin was at 0.8. His EKG showed old Q-wave changes over the anteroseptal leads and echocardiac Tito was done today and the patient was found to have a ejection fraction estimated to be around 30-35% along with anteroseptal and apical hypokinesis. No evidence of an aortic valve stenosis. Unable to estimate the right-sided pressures. Unable to have a good visualization of the rest of the valves. His white cell count of 15.4. His antibiotic coverage includes a combination of Rocephin and Zithromax and Diflucan for now. There is some erythema along the penile tip and the Maradiaga catheter is in place. Repeat chest x-ray from today shows atelectatic changes in the right lower lobe. No other significant abnormalities have been noted. The patient is currently on 4 L of oxygen by nasal cannula with a pulse ox of 98%. He still has some underlying sinus tachycardia. On today's evaluation of 10/23/2019 the patient's condition decompensated. I have already contacted the son and updated them on his father's condition. Note that by yesterday afternoon, the patient became progressively more restless, agitated, shortness of breath, and he was also indicating the possibility of abdominal distention and pain. He was hard to communicate with him as the patient was not providing any meaningful information and he was altered mentally. Nevertheless, we suspected that the patient was having increased abdominal pain and discomfort. At that point, decided to insert an NG tube and immediately approximately a liter of gastric juice was obtained as a return. Abdomen remained quite tender and distended. At that point, the patient was also becoming more hypotensive. He was given more IV fluids. He was intubated and placed on a mechanical ventilator. Post intubation, the patient became hypotensive and he was started on IV pressors. Blood gases was noted. Chest x- ray was noted. The patient was developing a right lower lobe pulmonary infiltration. He was taken down for a CAT scan of the abdomen and pelvis and the CAT scan showed evidence of a infiltrate in the right lung base and fatty infiltration of the liver and some multiple calcified gallstones and the bile ducts were not dilated. At the same time, the CAT scan showed a fusiform 4.4 cm lower abdominal aortic aneurysm. There was no evidence of any retroperitoneal lymphadenopathy. There was multiple diverticula in the sigmoid colon and multiple dilated air fluid filled loops of the small bowel and the small bowel was dilated up to 4 cm in size. There was also mild wall thickening of the ascending colon. There was also minimal fat stranding around the sigmoid colon. There was osteoarthritis of the right hip. Antibiotics were modified and the patient was started on IV Zosyn. This morning, the patient is sedated with propofol at 20 g. This is to be switched to Versed at the patient's triglyceride level came up above 500. The patient is receiving IV fluids in the form of normal saline at rate of 100 mL an hour. His urine output is diminished and the patient's creatinine is at 2.5. The neck fluid balance over the past 24 hours has been +5.3 L. The patient is currently on norepinephrine infusion running at 0.4 mcg/kg per minute. The patient is also on insulin drip at 9 units an hour. Noted the blood sugar control is improved and the patient's lactic acid level was also improving it was down to 3.7. During the course of this treatment, the patient developed also a shock liver with elevated AST and ALT. He developed an acute kidney injury on top of his chronic kidney failure with a creatinine maxing at 2.7 down to 2.5. The patient is currently on a mechanical ventilator on assist control mode at the rate of 28 with tidal volume of 500 and FiO2 of 60% with a PEEP of 5. Morning blood gases showed a pH of 7.39 with a pCO2 of 26 and pO2 of 185. Morning chest x-ray showed right lower lobe pulmonary infiltration and subsequently a triple-lumen catheter was inserted and the supportive living catheter was inserted without any complications. Surgical consultation was also obtained regarding the abdominal findings. On 10/24/2019, the patient remains critically ill. The patient remains in shock and this is most likely a septic shock following an acute hypovolemic shock. The patient initially presented with HHS. Subsequently the patient started acting septic and the source is most likely the abdomen. The patient had a elevated TROPONIN level. Lactic acid levels were elevated and the patient had abdominal pain and distention. NG tube was inserted and a CAT scan of the abdomen was done that showed findings suggesting small bowel obstruction and some inflammatory changes involving the ascending colon and the sigmoid. Nevertheless, there was no evidence of any acute abdomen or pneumoperitoneum with ischemic bowel. The patient was kept on Zosyn and Flagyl was added. He did have difficulties with his hemodynamics and the patient was on and off becoming hypotensive and he was getting IV fluids to maintain a CVP above 10. The patient is currently receiving normal saline at the rate of 100 mL an hour. He is also on vasopressin at physiologic dose of 0.03 units per minute and the patient is on norepinephrine running at 0.38 g per KG per minute. Abdomen is still slightly distended and the patient is a bit tender and he can grimace upon abdominal [id number] white him being sedated with Versed which is running at 6 mg an hour. Gen. surgery will be asked to evaluate this patient. NG tube is in place and output over the past 24 hours has been in the order of 400 mL of gastric material. No bowel movements yet. He is having episodes of fever and the patient has had a temperature max of 11.1 and a temperature is down to 99.8. The patient had 2 additional sets of blood cultures sent patient was given a dose of vancomycin yesterday. This was done pending further cultur es. Meanwhile, the patient remains on a mechanical ventilator. This morning, he remained on assist control mode with a tidal volume of 500 and FiO2 of 40% with a PEEP of 5. Chest x-ray is showing stable bilateral pulmonary infiltrates and atelectatic changes in lung bases. ET tube in good location so in the OG- tube. Her blood gases showed a pH of 7.39 with a pCO2 of 25 and pO2 of 67 and this was on above-mentioned ventilator setting. Lactic acid level is gradually dropped down to 3.0. The patient has shock liver. LFTs are considerably abnormal and the numbers are improving. AST is down to 2153 and ALT is down to 1107. As stated, neck yesterday dropped down to 3.2, the creatinine is still elevated at 2.2 with a BUN of 39 and the patient has a mild anion gap metabolic acidosis with a gap of 11 which is improved and his serum bicarbonate of 15. On today's evaluation of 10/25/2019, the patient remains critically ill. Remains intubated on a mechanical ventilator and remains sedated. On today's evaluation, he had an assist-control mode of ventilation and the patient is at the rate of 28 with a tidal volume of 500 and FiO2 of 50% with a PEEP of 5. The blood gases Show a pH of 7.51 with a pCO2 of 28 and pO2 of 65 and I think this is a essentially respiratory alkalosis as the patient's metabolic acidosis has recovered and the patient's serum bicarbonate was up to 22 while being given a bicarb infusion. The chest x-ray from today shows no significant interval change compared to yesterday's chest x-ray. There is a elevation of the right hemidiaphragm. The ET tube and NG tube remains in place. There is a left subclavian triple-lumen catheter in place. In my opinion, the patient remains quite septic. The patient is still having episodes of fever. The patient rem ains in shock and pressor dependent. Vasopressin is running at physiologic dose and the norepinephrine infusion has been drop down to 0.3 g per KG per minute. I had a discussion with the general surgeon and will going to continue the conservative approach. Patient is considered to be a high surgical risk for even exploration. Meanwhile, NG tube is in place and has drained approximately 900 mL of gastric material over the past 24 hours. Abdomen is slightly improved and less distended compared to yesterday. There is some mild direct tenderness without rebound tenderness. The patient is hypoactive in terms of his bowel sounds. Extremities abdomen is being done for a small bowel follow-through. The patient remains on insulin which is running at 2.5 units an hour for blood sugar control. The patient is on bicarb drip that he'll be taken off and this will decision to half-normal saline as the patient has also developed some hypernatremia. Serum bicarb is up to 21. He is having episodes of fever still. All of the repeat blood cultures came back negative. Hemoglobin is at 12.5. White cell count is at 10.7. Platelet count has dropped down to 94% is stable compared to yesterday. On 10/26/2019, the patient is currently being seen for a follow-up intubated on a mechanical ventilator in the intensive care unit. The patient remains sedated with Versed running at 6 mg an hour. While sedated and calm and comfortable and episodically requiring Dilaudid for pain control. He is on assist control rate of 22 with a tidal volume of 500 and FiO2 of 40% with a PEEP of 5. Blood gases showed a pH of 7.30 with a pCO2 of 32 and pO2 of 79 and the chest x-ray shows moderate-sized bilateral pleural effusions right more than left. ET tube is in a good location. NG tube is in good location. Output from the NG has slowed down and the patient is producing approximately 300-400 mL of NG output over the past 24 hours. The initial small bowel follow-through was consistent with small bowel obstruction as there was no passage of contrast past the jejunum. Subsequent x-ray of the abdomen was done this morning and contrast has made it to the colon and as such there is probably there is no evidence of anatomic obstruction and this could be essentially an ileus. The patient remains nothing by mouth. The patient will be started on TPN for nutritional support. White cell count of 9.6. The sodium is at 149. BNP is 44 with a creatinine of 1.8 which is improved compared to yesterday. Most recent lactic acid level is down to 2.8. The patient was a shock liver and the AST/ALT levels are also improving based on yesterday's lab. No significant fever episodes since yesterday evening and the patient is not spiking any further temperature. Cultures are negative and the patient remains on a combination of Zosyn and Flagyl. Objective - Vital Signs Vital signs: Vital Signs Temp 99.2 F 10/26/19 08:00 Pulse 93 10/26/19 11:00 Resp 22 10/26/19 11:00 BP 101/63 10/26/19 10:30 Pulse Ox 97 10/26/19 11:00 Intake & Output 10/25/19 10/26/19 10/26/19 18:59 06:59 18:59 Intake Total 5696.558 2057.335 923.678 Output Total 3006 0095 365 Balance -1029.174 -393.665 558.678 Weight 82.4 kg Intake: IV 1616 1672 773.36 Piperacillin-Tazobactam 3 100 100 100 .375 gm In Sodium Chloride 0.9% 100 ml @ 25 mls/hr IVPB Q8H INDU Rx#: [id number] Potassium Chloride 10 meq 200 100 In Water For Injection 1 100ml.bag @ 100 mls/hr IVPB Q1H INDU Rx#: [id number] Potassium Chloride 20 meq 100 In Water For Injection 1 100ml.bag @ 50 mls/hr IVPB Q2H INDU Rx#: [id number] Pressure Bag 66 72 30 Sodium Bicarb (amps) 150 Sodium Chloride 0.45% 1, 1000 1200 400 000 ml @ 100 mls/hr IV . Q10H INDU Rx#:[id number] Sodium Chloride 0.9% 150 18.36 ml @ 0.03 UNITS/MIN 4.59 mls/hr IV .Q24H INDU with Vasopressin 60 unit Rx#: [id number] Sodium Chloride 0.9% 500 25 ml 500 ml @ 20 mls/hr IV .Q24H INDU Rx#:[id number] metroNIDAZOLE-NS PMX 500 200 100 100 mg In Saline 1 100ml.bag @ 100 mls/hr IVPB Q8HR INDU Rx#:[id number] Intake, IV Titration 359.826 21.335 150.318 Amount Insulin Regular 100 unit 51.502 21.335 22.236 In Sodium Chloride 0.9% 100 ml @ Per Protocol IV .Q0M INDU Rx#:[id number] Midazolam HCl 50 mg In 86.100 9.4 Sodium Chloride 0.9% 40 ml @ 1 MG/HR 1 mls/hr IV .Q24H INDU Rx#:[id number] Norepinephrine 32 mg In 222.224 118.682 Sodium Chloride 0.9% 218 ml @ 0.42 MCG/KG/MIN 14. 805 mls/hr IV .[id number] INDU Rx#:[id number] Output: Gastric Drainage 2100 1275 40 Urine 905 812 325 Other: Voiding Method Indwelling Catheter Indwelling Catheter Indwelling Catheter ABP, PAP, CO, CI - Last Documented Arterial Blood Pressure 135/58 - Exam Gen. appearance the patient is sedated, comfortable likely distress currently on versed running at 6 mg an hour. The patient is withdrawing to deep painful stimulation. No signs of respiratory distress. The patient has an orogastric and orotracheal tube are both of them are in place. Head exam was generally normal. There was no scleral icterus or corneal arcus. M ucous membranes were dry Neck was supple and without jugular venous distension, thyromegaly, or carotid bruits. Carotids were easily palpable bilaterally. There was no adenopathy. The patient has a left subclavian triple-lumen catheter in place Lungs were clear to auscultation and percussion, and with normal diaphragmatic excursion. No wheezes or rales were noted. Cardiac exam revealed the PMI to be normally situated and sized. The rhythm was regular and no extrasystoles were noted during several minutes of auscultation. The first and second heart sounds were normal and physiologic splitting of the second heart sound was noted. There were no murmurs, rubs, clicks, or gallops. Abdominal exam revealed normal bowel sounds. The patient has hypoactive bowel sounds. The patient's abdomen is slightly distended. No direct tenderness or rebound tensile guarding at this point in time. NG tube is in place. Organ enlargement cannot be palpated on today's evaluation. I feel that there is some direct tenderness upon examination although the examination itself is limited as the patient is currently sedated with Versed. Extremities reveal chronic ulceration lower extremities bilaterally with diminished pulses. No cyanosis or clubbing. There is no open wounds or cellulitis in the lower extremities. Neurologic the patient is sedated, comfortable and no focal neurological deficits have been noted. - Labs CBC & Chem 7: 10/26/19 08:20 10/26/19 06:05 Labs: Abnormal Lab Results - Last 24 Hours (Table) 10/25/19 10/25/19 10/25/19 Range/Units 02:00 11:35 13:07 RBC (4.30-5.90) m/uL Hgb (13.0-17.5) gm/dL Hct (39.0-53.0) % MCV (80.0-100.0) fL Plt Count (150-450) k/uL Neutrophils # (1.3-7.7) k/uL Lymphocytes # (1.0-4.8) k/uL ABG pCO2 (35-45) mmHg ABG pO2 (83-108) mmHg ABG HCO3 (21-25) mmol/L Sodium (137-145) mmol/L Potassium 3.4 L (3.5-5.1) mmol/L Chloride (98-107) mmol/L Carbon Dioxide (22-30) mmol/L BUN (9-20) mg/dL Creatinine (0.66-1.25) mg/dL Glucose (74-99) mg/dL POC Glucose (mg/dL) 159 H (75-99) mg/dL Calcium (8.4-10.2) mg/dL Procalcitonin 15.24 H (0.02-0.09) ng/mL 10/25/19 10/25/19 10/25/19 Range/Units 14:59 16:11 17:10 RBC (4.30-5.90) m/uL Hgb (13.0-17.5) gm/dL Hct (39.0-53.0) % MCV (80.0-100.0) fL Plt Count (150-450) k/uL Neutrophils # (1.3-7.7) k/uL Lymphocytes # (1.0-4.8) k/uL ABG pCO2 (35-45) mmHg ABG pO2 (83-108) mmHg ABG HCO3 (21-25) mmol/L Sodium (137-145) mmol/L Potassium (3.5-5.1) mmol/L Chloride (98-107) mmol/L Carbon Dioxide (22-30) mmol/L BUN (9-20) mg/dL Creatinine (0.66-1.25) mg/dL Glucose (74-99) mg/dL POC Glucose (mg/dL) 131 H 138 H 138 H (75-99) mg/dL Calcium (8.4-10.2) mg/dL Procalcitonin (0.02-0.09) ng/mL 10/25/19 10/25/19 10/25/19 Range/Units 17:56 20:15 21:16 RBC (4.30-5.90) m/uL Hgb (13.0-17.5) gm/dL Hct (39.0-53.0) % MCV (80.0-100.0) fL Plt Count (150-450) k/uL Neutrophils # (1.3-7.7) k/uL Lymphocytes # (1.0-4.8) k/uL ABG pCO2 (35-45) mmHg ABG pO2 (83-108) mmHg ABG HCO3 (21-25) mmol/L Sodium (137-145) mmol/L Potassium (3.5-5.1) mmol/L Chloride (98-107) mmol/L Carbon Dioxide (22-30) mmol/L BUN (9-20) mg/dL Creatinine (0.66-1.25) mg/dL Glucose (74-99) mg/dL POC Glucose (mg/dL) 144 H 118 H 164 H (75-99) mg/dL Calcium (8.4-10.2) mg/dL Procalcitonin (0.02-0.09) ng/mL 10/25/19 10/25/19 10/26/19 Range/Units 22:45 23:19 00:12 RBC (4.30-5.90) m/uL Hgb (13.0-17.5) gm/dL Hct (39.0-53.0) % MCV (80.0-100.0) fL Plt Count (150-450) k/uL Neutrophils # (1.3-7.7) k/uL Lymphocytes # (1.0-4.8) k/uL ABG pCO2 (35-45) mmHg ABG pO2 (83-108) mmHg ABG HCO3 (21-25) mmol/L Sodium (137-145) mmol/L Potassium (3.5-5.1) mmol/L Chloride (98-107) mmol/L Carbon Dioxide (22-30) mmol/L BUN (9-20) mg/dL Creatinine (0.66-1.25) mg/dL Glucose (74-99) mg/dL POC Glucose (mg/dL) 157 H 155 H 155 H (75-99) mg/dL Calcium (8.4-10.2) mg/dL Procalcitonin (0.02-0.09) ng/mL 10/26/19 10/26/19 10/26/19 Range/Units 01:11 02:06 04:18 RBC (4.30-5.90) m/uL Hgb (13.0-17.5) gm/dL Hct (39.0-53.0) % MCV (80.0-100.0) fL Plt Count (150-450) k/uL Neutrophils # (1.3-7.7) k/uL Lymphocytes # (1.0-4.8) k/uL ABG pCO2 (35-45) mmHg ABG pO2 (83-108) mmHg ABG HCO3 (21-25) mmol/L Sodium (137-145) mmol/L Potassium (3.5-5.1) mmol/L Chloride (98-107) mmol/L Carbon Dioxide (22-30) mmol/L BUN (9-20) mg/dL Creatinine (0.66-1.25) mg/dL Glucose (74-99) mg/dL POC Glucose (mg/dL) 126 H 132 H 210 H (75-99) mg/dL Calcium (8.4-10.2) mg/dL Procalcitonin (0.02-0.09) ng/mL 10/26/19 10/26/19 10/26/19 Range/Units 04:57 05:15 06:03 RBC (4.30-5.90) m/uL Hgb (13.0-17.5) gm/dL Hct (39.0-53.0) % MCV (80.0-100.0) fL Plt Count (150-450) k/uL Neutrophils # (1.3-7.7) k/uL Lymphocytes # (1.0-4.8) k/uL ABG pCO2 32 L (35-45) mmHg ABG pO2 79 L (83-108) mmHg ABG HCO3 19 L (21-25) mmol/L Sodium (137-145) mmol/L Potassium (3.5-5.1) mmol/L Chloride (98-107) mmol/L Carbon Dioxide (22-30) mmol/L BUN (9-20) mg/dL Creatinine (0.66-1.25) mg/dL Glucose (74-99) mg/dL POC Glucose (mg/dL) 196 H 234 H (75-99) mg/dL Calcium (8.4-10.2) mg/dL Procalcitonin (0.02-0.09) ng/mL 10/26/19 10/26/19 10/26/19 Range/Units 06:05 07:13 08:11 RBC (4.30-5.90) m/uL Hgb (13.0-17.5) gm/dL Hct (39.0-53.0) % MCV (80.0-100.0) fL Plt Count (150-450) k/uL Neutrophils # (1.3-7.7) k/uL Lymphocytes # (1.0-4.8) k/uL ABG pCO2 (35-45) mmHg ABG pO2 (83-108) mmHg ABG HCO3 (21-25) mmol/L Sodium 149 H (137-145) mmol/L Potassium (3.5-5.1) mmol/L Chloride 119 H (98-107) mmol/L Carbon Dioxide 20 L (22-30) mmol/L BUN 44 H (9-20) mg/dL Creatinine 1.83 H (0.66-1.25) mg/dL Glucose 210 H (74-99) mg/dL POC Glucose (mg/dL) 156 H 201 H (75-99) mg/dL Calcium 6.6 L (8.4-10.2) mg/dL Procalcitonin (0.02-0.09) ng/mL 10/26/19 10/26/19 10/26/19 Range/Units 08:20 10:17 11:04 RBC 3.35 L (4.30-5.90) m/uL Hgb 11.0 L (13.0-17.5) gm/dL Hct 34.7 L (39.0-53.0) % MCV 103.5 H (80.0-100.0) fL Plt Count 84 L (150-450) k/uL Neutrophils # 8.4 H (1.3-7.7) k/uL Lymphocytes # 0.7 L (1.0-4.8) k/uL ABG pCO2 (35-45) mmHg ABG pO2 (83-108) mmHg ABG HCO3 (21-25) mmol/L Sodium (137-145) mmol/L Potassium (3.5-5.1) mmol/L Chloride (98-107) mmol/L Carbon Dioxide (22-30) mmol/L BUN (9-20) mg/dL Creatinine (0.66-1.25) mg/dL Glucose (74-99) mg/dL POC Glucose (mg/dL) 152 H 142 H (75-99) mg/dL Calcium (8.4-10.2) mg/dL Procalcitonin (0.02-0.09) ng/mL Microbiology - Last 24 Hours (Table) 10/25/19 04:45 Urine Culture - Final Urine,Catheterized 10/23/19 21:45 Blood Culture - Preliminary Blood No Growth after 48 hours 10/23/19 21:30 Blood Culture - Preliminary Blood No Growth after 48 hours 10/21/19 18:20 Blood Culture - Preliminary Blood No Growth after 96 hours 10/25/19 11:35 Blood Fungal Culture - Preliminary Blood Assessment and Plan Plan: 1 shock with profound hypotension and the patient has been aggressively resuscitated IV fluids and currently patient is also on pressors. Initially, the presentation was mainly hypovolemic shock and subsequently there is concern about septic shock due to the above-mentioned comorbidities. The patient may have an abdominal source of ischemia. The patient has a small bowel obstruction and possible ischemic large bowel involving the ascending and sigmoid colon/colitis. The patient continues to be on pressors including physiologic dose of vasopressin and norepinephrine 0.28 g per KG per minute. 2 acute abdominal distention/pain with further workup indicating small bowel ileus/obstruction in addition the possibility of ascending and sigmoid colitis. The patient is currently on IV Zosyn and Flagyl. NG tube is in place and the patient is placed into a bowel rest. There was a suspicion for a small bowel obstruction as the patient's small bowel follow-through did not show any passage of contrast material. Subsequent x-ray of the abdomen showed improvement and passage of contrast into the large bowel. Angina with a still elevated and considerably high although improved compared to yesterday. The patient remains on a combination of Zosyn and Flagyl. Lactic acid level is improved. Shock liver is improved. Renal function is also improving. 3 acute hyperosmolar nonketotic diabetic syndrome with severe hyperglycemia and intravascular volume depletion/dehydration, and the patient was resuscitated aggressively with IV fluids and the patient is currently on insulin drip at 2.5 units an hour and the blood sugars under better control for now. 4 acute kidney injury secondary to above versus chronic renal failure, the renal function slightly improved compared to yesterday 5 acut hypoxic respiratory failure, currently intubated on a mechanical ventilator. 6 altered mental status secondary to above, And the patient is currently intubated on a mechanical ventilator and was sedated 7 diabetes mellitus, maintained oral hypoglycemics with poor compliance, currently on insulin drip 8 alzheimer's dementia 9 pseudohyponatremia, related to severe hyperglycemia, improved 10 History of hypertension 11 penile erythema 12 4.6 cm distal abdominal aortic aneurysm extending to the aortic bifurcation and involving the common iliac arteries with indwelling BILATERAL ILIAC ENDOLUMINAL STENT GRAFT, Unchanged in the most recent CAT scan of the abdomen and pelvis 13 peripheral vascular disease 14 troponin leak, consider Ischemia type 2, the troponin peaked at 2.25 15 acute shock liver secondary to hypotension , improving 16 CHF with ischemic cardiomyopathy and ejection fraction of 30-35% in addition to 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 17 severe lactic acidosis secondary to to above, improving Plan Continue ventilator support, no change in the ventilator setting for now Continue insulin drip and titrate the dose Continue IV Zosyn and Flagyl and the cultures of been negative IV fluids to KVO Start TPN for nutritional support Continue physiologic dose of vasopressin Continue pressors with norepinephrine dose of 0.26 g per KG per minute Monitor lactic acid levels, which is improved for now Echocardiogram showed impaired LV function with an ejection fraction of 30-35% with segmental wall motion abnormalities Keep the NG tube in place and the keep the patient nothing by mouth for now. General surgeries on the case regarding bowel obstruction/ileus Chest surgical consultation has been done and the input is appreciated Monitor renal function Chest x-ray was noted Blood gases was noted Monitor liver function tests that the patient is currently shock liver Carries a high mortality risk Surgery Contacted the son and informed him of the above-mentioned conditions. His condition is critical and this evaluation was on a more than 30 minutes. Time with Patient: Greater than 30
[2019-10-26] MEDS ORDERED: BISACODYL 10 MG SUPP RECTAL STA (13:00)
[2019-10-26 13:04] LABS: Glucose,Whole Blood 139 mg/dL (75-99)
[2019-10-26] MEDS ORDERED: MAGNESIUM SULFATE IV ONE ×6 (15:00)
[2019-10-26] MEDS ORDERED: POTASSIUM ACETATE IV ONE ×6 (15:00)
[2019-10-26] MEDS ORDERED: MVI IV ONE ×6 (15:00)
[2019-10-26] MEDS ORDERED: CALCIUM GLUCONATE IV ONE ×6 (15:00)
[2019-10-26] MEDS ORDERED: [UNRECOGNIZED DRUG - OTHER] IV ONE ×6 (15:00)
[2019-10-26] MEDS: FAT EMULSION 20% 250 ML IV SCH (15:14)
--- NOTE | 2019-10-26 15:25 | PN ---
PROGRESS NOTE The patient is seen for followup for acute kidney injury. Renal function continues to improve. Creatinine is down to 1.8 today. Patient has good urine output. He remains on the vent, currently stable with FiO2 at 40%. Levophed is currently being weaned down. PHYSICAL EXAMINATION: On examination today patient is sedated, he is on the vent. Blood pressure this morning was 135/58, he is afebrile. Heart rate about 89 per minute. Examination shows 1+ edema bilateral lower extremities. Abdomen is soft, nontender. A[employer]ICULT[employer] RESEARCH DIRECTOR exam cannot be performed. LABS: Sodium 149, potassium 3.6, chloride 119, CO2 is 20, BUN 44, creatinine 1.83. ASSESSMENT: 1. Acute kidney injury, currently improving, acute tubular necrosis. 2. Hypernatremia associated with free water deficit. Add D5W. Patient is maintained on TPN also. 3. Acute hypoxic respiratory failure, currently on the vent. 4. Possible chronic kidney disease, baseline creatinine 1.2-1.5, July of 2018. 5. Ileus, being followed by Surgery. PLAN: Add D5W and repeat labs in a.m. Continue to avoid nephrotoxic agents. MMODL / IJN: [id number] /
[2019-10-26 15:30] LABS: Glucose,Whole Blood 177 mg/dL (75-99)
--- NOTE | 2019-10-26 15:43 | P.PN ---
Progress Note - Text Progress Note Date: 10/26/19 Interval history: 79-year-old male with PMH of diabetes mellitus on oral hypoglycemics, con pascual presents the ED for altered mentation. Apparently, patient was visited by his nurse who noted an extremely high blood glucose which prompted his hospital visit. Patient is altered and he is unable to provide any meaningful history. Majority of documentation was obtained from chart review and discussion with his son. Apparently, patient has been confused and disoriented which is progressive ly been worsening over the past 2 weeks. His son reports that the patient fell a week ago and did not seek medical attention. Patient lives with his who is suffering from advanced Alzheimer's dementia and is currently in hospice. According to the son, patient drinks 4 L of soda on a daily basis. Son reports that patient is noncompliant with her diabetic diet. In the ED, vital signs showed a T low of 97.5 Fahrenheit, pulse of 102, tachypnea with respiratory rate of 28, BP of 85/49 and 89% on room air. CBC showed leukocytosis of 11 and MCV of 124.1. ABG showed pH of 7, pCO2 19, bica rbonate of 8. CMP showed sodium of 116, potassium of 5.7, chloride of 74, bicarbonate of 8, BUN 33, creatinine 2.18, glucose greater than 1875. Troponin was 0.881 with EKG showing sinus tachycardia. Urinalysis shows 4+ glucose and trace blood. Acetone was negative. CT brain was negative for hemorrhage but showed slightly hyperdense left MCA compared to right. Chest x-ray showed possible right lower lobe infiltrate. Patient is admitted to ICU for sepsis, troponin elevation and diabetic ketoacidosis. Intubated. Patient developed ischemic hepatitis. Sepsis. today-ICU. drips include IV vasopressin, norepinephrine, midazolam, insulin. NG tube is still hooked up to suction-output is decreased. X-ray showed today showed the oral contrast directly passed through. Dulcolax suppositories been ordered. Telemetry shows sinus rhythm. Getting TPN-lipids Review of systems cannot be done patient intubated Active Medications Aspirin (Aspirin) 81 mg RECTAL DAILY [facility] Last Admin: 10/26/19 10:39 Dose: 81 mg Documented by: Chlorhexidine Gluconate (Peridex) 15 ml MUCOUS MEM BID [facility] Last Admin: 05/17/20 08:05 Dose: 15 ml Documented by: Heparin Sodium (Porcine) (Heparin) 5,000 unit SQ Q8HR [facility] Last Admin: 10/26/19 08:05 Dose: 5,000 unit Documented by: Hydromorphone HCl (Dilaudid) 1 mg IVP Q4HR PRN PRN Reason: Pain Last Admin: 10/26/19 10:25 Dose: 1 mg Documented by: Piperacillin Sod/Tazobactam (Sod 3.375 gm/ Sodium Chloride) 100 mls @ 25 mls/hr IVPB Q8H [facility] Last Admin: 10/26/19 06:31 Dose: 25 mls/hr Documented by: Midazolam HCl 50 mg/ Sodium (Chloride) 50 mls @ 1 mls/hr IV .Q24H [facility]; Protocol Last Titration: 10/26/19 07:33 Dose: Infused Documented by: Norepinephrine Bitartrate 32 (mg/ Sodium Chloride) 250 mls @ 14.805 mls/hr IV .[id number] [facility]; Protocol Last Titration: 10/26/19 13:01 Dose: 0.21 mcg/kg/min, 7.403 mls/hr Documented by: Insulin Human Regular 100 unit (/ Sodium Chloride) 101 mls @ 0 mls/hr IV .Q0M [facility]; Protocol Last Titration: 10/26/19 15:29 Dose: 2.5 unit/hr, 2.525 mls/hr Documented by: Vasopressin 60 unit/ Sodium (Chloride) 153 mls @ 4.59 mls/hr IV .Q24H [facility] Last Admin: 10/25/19 20:10 Dose: 4.59 mls/hr Documented by: Metronidazole 500 mg/ IV (Solution) 100 mls @ 100 mls/hr IVPB Q8HR [facility] Last Admin: 10/26/19 08:01 Dose: 100 mls/hr Documented by: Sodium Chloride (Saline 0.9%) 500 mls @ 20 mls/hr IV .Q24H [facility] Last Admin: 10/26/19 09:05 Dose: 20 mls/hr Documented by: Potassium Acetate 30 meq/Magnesium Sulfate 1 gm/Calcium Gluconate 2 gm/Parenteral Vitamin Supplement 10 ml/ Chromium/Copper/Manganese/Seleni/Zn 1 ml/Amino Acids/Dextrose 1,048 mls @ 30 mls/hr IV .Q24H [facility]: 10/27/19 14:59 Last Admin: 10/26/19 15:13 Dose: 30 mls/hr Documented by: Potassium Acetate 20 meq/Magnesium Sulfate 1 gm/Calcium Gluconate 1 gm/Parenteral Vitamin Supplement 10 ml/ Chromium/Copper/Manganese/Seleni/Zn 1 ml/Amino Acids/Dextrose 1,033 mls @ 105 mls/hr IV .BY DURATION [facility] Potassium Acetate 20 meq/Magnesium Sulfate 1 gm/Calcium Gluconate 1 gm/ Amino Acids/Dextrose 1,022 mls @ 105 mls/hr IV .BY DURATION [facility] Fat Emulsion Intravenous (Lipids 20%) 250 mls @ 20.833 mls/hr IV DAILY@1500 [facility] Last Admin: 10/26/19 15:14 Dose: 20.833 mls/hr Documented by: Dextrose/Water (Dextrose 5%-Water Iv Soln) 1,000 mls @ 50 mls/hr IV .Q20H [facility] Miscellaneous Information (Pneumonia Protocol Utilized) 1 each PO ONCE PRN PRN Reason: Per Protocol Miscellaneous Information (Phosphorus Per Protocol) 1 each MISCELLANE DAILY PRN; Protocol PRN Reason: Per Protocol Miscellaneous Information (Magnesium Per Protocol) 1 each MISCELLANE DAILY PRN; Protocol PRN Reason: Per Protocol Miscellaneous Information (Potassium Per Protocol) 1 each MISCELLANE DAILY PRN; Protocol PRN Reason: Per Protocol Naloxone HCl (Narcan) 0.2 mg IV Q2M PRN PRN Reason: Opioid Reversal Nitroglycerin (Nitrostat) 0.4 mg SUBLINGUAL Q5M PRN PRN Reason: Chest Pain Pantoprazole Sodium (Protonix) 40 mg IV DAILY [facility] Last Admin: 10/26/19 08:07 Dose: 40 mg Documented by: On examination: VITAL SIGNS: 99.9, 87, 22, 105/47, 98% GENERAL APPEARANCE: laying in bed, sedated, intubated. HEENT: Normal external appearance of nose and ear. Oral cavity -endotracheal tube, NG tube to suction EYES: Pupils equal. Conjunctiva normal. NECK: JVD unable to assess. Mass not palpable. RESPIRATORY: Respiratory effort increased. Lungs -decreased breath sounds CARDIOVASCULAR: First and second sounds normal. No edema. ABDOMEN: Soft. Liver and spleen not palpable. No tenderness. No mass palpable. PSYCHIATRY: unable to assess, patient sedated INVESTIGATIONS, reviewed in the clinical context: White count 9.6 hemoglobin 11 platelet 84 sodium 149 potassium 3.6 bun 44 creatinine 1.83 Abdominal [id number] has passed through to thecolon Previous testing: White count 11 hemoglobin 13.7 platelets 383 Sodium 116, bicarb 8, bun 33, creatinine 2.18 glucose 1875 troponin I 0.88 1 Rusty-19 PCR-not detected computed tomography scan of the brain without contrast-no acute degenerative changes Ultrasound kidney-limited exam 2-D echocardiogram-EF 30-35%, anteroseptal apical hypokinesia AST 3453, ALT 1264, computed tomography scan of the abdomen and pelvis without contrast-dilated multiple loops of small bowel some free fluid in the paracolic gutter bilateral lower lobe pulmonary infiltrates, fusiform 4.4 cm lower abdominal aortic aneurysm with aortoiliac endograft multiple diverticula of the sigmoid colon. Mild wall thickening of the ascending colon. Blood cultures from October 20-negative Assessment: -acute nonketotic hyperosmolar diabetes with severe hyperglycemia, POA -Acute small bowel obstruction, and distal jejunal obstruction-radiologically improved, NG tube output is coming down -Acute hypoxic respiratory failure requiring mechanical ventilator support-slow to respond -Acute metabolic encephalopathy from above-slow to respond -Alzheimer's dementia -Pseudohyponatremia from severe hyperglycemia -4.4 cm distal abdominal aortic aneurysm with the endoluminal stent graft -Peripheral arterial disease -Acute shock liver secondary to hypotensive improving -Chronic congestive heart failure from systolic dysfunction EF 30-35% -Sepsis with septic shock, possible community acquired pneumonia -Metabolic encephalopathy likely due to the above -Non-ST elevation PR likely type II from demand ischemia, POA -Acute kidney injury likely ATN -Possibly chronic kidney disease -essential hypertension -Pneumonia suspect gram-negative organism Plan: -insulin drip, IV vasopressin, norepinephrine, midazolam,.; IV Flagyl and IV Zosyn. Patient be getting a Dulcolax suppository. Prognosis is guarded.
[2019-10-26 16:32] LABS: Glucose,Whole Blood 200 mg/dL (75-99)
[2019-10-26 17:30] LABS: Glucose,Whole Blood 192 mg/dL (75-99)
[2019-10-26] MEDS: MIDAZOLAM HCL 50 MG in SODIUM CHLORIDE 0.9% 40 ML IV SCH (18:41)
[2019-10-26] MEDS: DEXTROSE 5% IN WATER 1,000 ML IV SCH (18:44)
[2019-10-26 18:53] LABS: Glucose,Whole Blood 204 mg/dL (75-99)
[2019-10-26 19:16] LABS: Glucose,Whole Blood 202 mg/dL (75-99)
[2019-10-26] MEDS: SODIUM CHLORIDE 0.9% 150 ML with VASOPRESSIN 60 UNIT IV SCH ×2 (19:18)
[2019-10-26 19:55] LABS: Glucose,Whole Blood 253 mg/dL (75-99)
[2019-10-26] MEDS: NOREPINEPHRINE 32 MG in SODIUM CHLORIDE 0.9% 218 ML IV SCH (20:14)
[2019-10-26 20:53] LABS: Glucose,Whole Blood 169 mg/dL (75-99)
[2019-10-26 22:04] LABS: Glucose,Whole Blood 249 mg/dL (75-99)
[2019-10-26 23:10] LABS: Glucose,Whole Blood 225 mg/dL (75-99)
[2019-10-26] MEDS: POTASSIUM CHLORIDE 20 MEQ in WATER FOR INJECTION 1 100ML.BAG IVPB SCH (23:23)
[2019-10-27 00:03] LABS: Glucose,Whole Blood 213 mg/dL (75-99)
[2019-10-27] MEDS: HEPARIN SODIUM,PORCINE 5,000 UNIT/ML 1 ML VIAL SQ SCH ×4 (00:25→23:59)
[2019-10-27] MEDS: HYDROmorphone 1 MG/ML 1 ML SYRINGE IVP PRN ×3 (00:25→21:05)
[2019-10-27] MEDS: metroNIDAZOLE-NS PMX 500 MG in SALINE 1 100ML.BAG IVPB SCH ×4 (00:25→23:59)
[2019-10-27] MEDS: INSULIN REGULAR 100 UNIT in SODIUM CHLORIDE 0.9% 100 ML IV SCH ×2 (00:35→20:09)
[2019-10-27 01:07] LABS: Glucose,Whole Blood 222 mg/dL (75-99)
[2019-10-27] MEDS: POTASSIUM CHLORIDE 20 MEQ in WATER FOR INJECTION 1 100ML.BAG IVPB SCH (01:18)
[2019-10-27 02:06] LABS: Glucose,Whole Blood 152 mg/dL (75-99)
[2019-10-27 03:03] LABS: Glucose,Whole Blood 163 mg/dL (75-99)
[2019-10-27 04:02] LABS: Glucose,Whole Blood 173 mg/dL (75-99)
[2019-10-27 05:04] LABS: Glucose,Whole Blood 174 mg/dL (75-99)
[2019-10-27] MEDS: PIPERACILLIN-TAZOBACTAM 3.375 GM in SODIUM CHLORIDE 0.9% 100 ML IVPB SCH ×3 (05:09→20:42)
[2019-10-27 05:24] LABS: ABG Base Excess -1.2 mmol/L; ABG HCO3 23 mmol/L (21-25); ABG Oxygen Saturation 96.8 % (94-97); ABG PCO2 34 mmHg (35-45); ABG PH 7.44 (7.35-7.45); ABG PO2 80 mmHg (83-108); ABG TCO2 24 mmol/L (19-24)
[2019-10-27 05:38] LABS: HGB 10.4 gm/dL (13.0-17.5); Hypochromasia Moderate; MCH 33.5 pg (25.0-35.0); MCHC 32.4 g/dL (31.0-37.0); MCV 103.4 fL (80.0-100.0); Macrocytosis Slight; Mean Platelet Volume 10.4; RDW 13.9 % (11.5-15.5); WBC 10.1 k/uL (3.8-10.6)
[2019-10-27 05:41] LABS: Platelet Count 88 k/uL (150-450)
[2019-10-27 05:53] LABS: Ionized Calcium 4.9 mg/dL (4.5-5.3)
[2019-10-27 05:59] LABS: Glucose,Whole Blood 174 mg/dL (75-99)
[2019-10-27 06:21] LABS: Albumin 1.8 g/dL (3.5-5.0); Magnesium 2.1 mg/dL (1.6-2.3); Potassium 3.7 mmol/L (3.5-5.1); Total Bilirubin 0.6 mg/dL (0.2-1.3); Total Protein 4.1 g/dL (6.3-8.2)
[2019-10-27] MEDS ORDERED: Phosphorus Replacement Protoco 1 EACH MISC MISCELLANE PRN (06:45)
[2019-10-27 06:57] LABS: Glucose,Whole Blood 180 mg/dL (75-99)
[2019-10-27] MEDS: POTASSIUM CHLORIDE 10 MEQ in WATER FOR INJECTION 1 100ML.BAG IVPB SCH ×2 (07:09→08:20)
[2019-10-27 08:11] LABS: Glucose,Whole Blood 140 mg/dL (75-99)
--- NOTE | 2019-10-27 08:14 | XR ---
EXAMINATION TYPE: XR chest 1V portable DATE OF EXAM: 10/27/2019 COMPARISON: 10/26/2019 HISTORY: SOB, Follow Up FINDINGS: Indwelling tubes and catheters are unchanged. No change in bibasilar opacities. Stable appearance of the cardio-mediastinal structures at this time. Pleural effusion unchanged. IMPRESSION: 1. Stable portable chest. Clinical correlation and follow up until resolution is recommended.
[2019-10-27] MEDS: NOREPINEPHRINE 32 MG in SODIUM CHLORIDE 0.9% 218 ML IV SCH ×3 (08:15→20:08)
[2019-10-27] MEDS: CHLORHEXIDINE GLUCONATE 15 ML CUP MUCOUS MEM SCH ×2 (08:22→20:42)
[2019-10-27] MEDS: PANTOPRAZOLE 40 MG/10 ML VIAL IV SCH (08:22)
[2019-10-27 09:21] LABS: Glucose,Whole Blood 170 mg/dL (75-99)
[2019-10-27] MEDS: ASPIRIN 300 MG SUPP RECTAL SCH (09:36)
[2019-10-27] MEDS: POTASSIUM PHOSPHATE 10 MMOL in SODIUM CHLORIDE 0.9% 100 ML IV SCH ×2 (09:48→11:44)
[2019-10-27 10:15] LABS: Glucose,Whole Blood 177 mg/dL (75-99)
[2019-10-27 11:43] LABS: Glucose,Whole Blood 168 mg/dL (75-99)
[2019-10-27] MEDS: SODIUM CHLORIDE 0.9% 500 ML 500 ML IV SCH (11:47)
[2019-10-27] MEDS: DEXTROSE 5% IN WATER 1,000 ML IV SCH (11:47)
[2019-10-27 13:15] LABS: Glucose,Whole Blood 168 mg/dL (75-99)
--- NOTE | 2019-10-27 13:41 | P.PN ---
<Jodie Garcia Melvin - Last Filed: 10/27/19 13:59> Subjective Progress Note Date: 10/27/19 CHIEF COMPLAINT: Sepsis HISTORY OF PRESENT ILLNESS: Patient examined in the intensive care unit with Dr. Quintero. Patient remains sedated on mechanical ventilation. NG tube to low intermittent suction. Patient had a mucousy bowel movement overnight and a small brown bowel movement today per nursing. PHYSICAL EXAM: VITAL SIGNS: Reviewed GENERAL: Well-developed in no acute distress. HEENT: No sclera icterus. Extraocular movements grossly intact. Moist buccal mucosa. Head is atraumatic, normocephalic. No nasal drainage. NECK: Supple without lymphadenopathy. CHEST: Non-labored respirations and equal bilateral excursions. CARDIOVASCULAR: Regular rate with regular rhythm. Palpable 2+ radial pulses. ABDOMEN: Soft. Nondistended. Nontender. NG tube to LIS MUSCULOSKELETAL: No clubbing or cyanosis. NEUROLOGIC: Sedated on mechanical ventilation PSYCH: Sedated on mechanical ventilation SKIN: Well perfused. Good skin turgor. ASSESSMENT: 1. Abnormal computed tomography scan with small bowel distention, resolving PLAN: Patient with a soft brown bowel movement today per nursing May begin tube feedings from a surgical standpoint per Dr. Quintero. Will defer to escalator operator Nurse practitioner note has been reviewed by physician. Signing provider agrees with the documented findings, assessment, and plan of care. Objective - Vital Signs Vital signs: Vital Signs Temp 99.3 F 10/27/19 12:00 Pulse 79 10/27/19 13:00 Resp 22 10/27/19 13:00 BP 130/62 10/27/19 10:00 Pulse Ox 98 10/27/19 13:00 Intake & Output 10/26/19 10/27/19 10/27/19 18:59 06:59 18:59 Intake Total 8425.719 5387.364 847.861 Output Total 1155 995 430 Balance 170.973 454.364 417.861 Weight 82.4 kg 81.7 kg Intake: IV 1092.49 1357.08 650.59 Dextrose 5% in Water 1, 550 300 000 ml @ 50 mls/hr IV . Q20H [facility] Rx#:[id number] Piperacillin-Tazobactam 3 100 150 50 .375 gm In Sodium Chloride 0.9% 100 ml @ 25 mls/hr IVPB Q8H INDU Rx#: [id number] Potassium Chloride 10 meq 200 In Water For Injection 1 100ml.bag @ 100 mls/hr IVPB Q1H INUD Rx#: [id number] Potassium Chloride 20 meq 300 100 In Water For Injection 1 100ml.bag @ 50 mls/hr IVPB Q2H INDU Rx#: [id number] Pressure Bag 72 72 36 Sodium Chloride 0.45% 1, 400 000 ml @ 100 mls/hr IV . Q10H INDU Rx#:[id number] Sodium Chloride 0.9% 150 50.49 55.08 4.59 ml @ 0.03 UNITS/MIN 4.59 mls/hr IV .Q24H INDU with Vasopressin 60 unit Rx#: [id number] Sodium Chloride 0.9% 500 170 130 60 ml 500 ml @ 20 mls/hr IV .Q24H INDU Rx#:[id number] metroNIDAZOLE-NS PMX 500 100 100 100 mg In Saline 1 100ml.bag @ 100 mls/hr IVPB Q8HR [facility] Rx#:[id number] Intake, IV Titration 233.483 92.284 197.271 Amount Insulin Regular 100 unit 39.945 52.319 34.138 In Sodium Chloride 0.9% 100 ml @ Per Protocol IV .Q0M INDU Rx#:[id number] Midazolam HCl 50 mg In 9.4 Sodium Chloride 0.9% 40 ml @ 1 MG/HR 1 mls/hr IV .Q24H INDU Rx#:[id number] Norepinephrine 32 mg In 184.138 39.965 63.133 Sodium Chloride 0.9% 218 ml @ 0.42 MCG/KG/MIN 14. 805 mls/hr IV .[id number] [facility] Rx#:[id number] Potassium Phosphate 10 100 mmol In Sodium Chloride 0 .9% 100 ml @ 50 mls/hr IV Q2H INDU Rx#:[id number] Output: Gastric Drainage 390 250 Urine 765 745 430 Other: Voiding Method Indwelling Catheter Indwelling Catheter # Voids 50 # Bowel Movements 1 ABP, PAP, CO, CI - Last Documented Arterial Blood Pressure 116/47 - Labs CBC & Chem 7: 10/27/19 05:00 10/27/19 05:00 Labs: Abnormal Lab Results - Last 24 Hours (Table) 10/26/19 10/26/19 10/26/19 Range/Units 15:28 16:31 17:29 RBC (4.30-5.90) m/uL Hgb (13.0-17.5) gm/dL Hct (39.0-53.0) % MCV (80.0-100.0) fL Plt Count (150-450) k/uL ABG pCO2 (35-45) mmHg ABG pO2 (83-108) mmHg Sodium (137-145) mmol/L Potassium (3.5-5.1) mmol/L Chloride (98-107) mmol/L BUN (9-20) mg/dL Creatinine (0.66-1.25) mg/dL Glucose (74-99) mg/dL POC Glucose (mg/dL) 177 H 200 H 192 H (75-99) mg/dL Calcium (8.4-10.2) mg/dL Phosphorus (2.5-4.5) mg/dL AST (17-59) U/L ALT (4-49) U/L Total Protein (6.3-8.2) g/dL Albumin (3.5-5.0) g/dL Triglycerides (<150) mg/dL 10/26/19 10/26/19 10/26/19 Range/Units 18:49 19:14 19:33 RBC (4.30-5.90) m/uL Hgb (13.0-17.5) gm/dL Hct (39.0-53.0) % MCV (80.0-100.0) fL Plt Count (150-450) k/uL ABG pCO2 (35-45) mmHg ABG pO2 (83-108) mmHg Sodium (137-145) mmol/L Potassium 3.4 L (3.5-5.1) mmol/L Chloride (98-107) mmol/L BUN (9-20) mg/dL Creatinine (0.66-1.25) mg/dL Glucose (74-99) mg/dL POC Glucose (mg/dL) 204 H 202 H (75-99) mg/dL Calcium (8.4-10.2) mg/dL Phosphorus (2.5-4.5) mg/dL AST (17-59) U/L ALT (4-49) U/L Total Protein (6.3-8.2) g/dL Albumin (3.5-5.0) g/dL Triglycerides (<150) mg/dL 10/26/19 10/26/19 10/26/19 Range/Units 19:54 20:52 22:03 RBC (4.30-5.90) m/uL Hgb (13.0-17.5) gm/dL Hct (39.0-53.0) % MCV (80.0-100.0) fL Plt Count (150-450) k/uL ABG pCO2 (35-45) mmHg ABG pO2 (83-108) mmHg Sodium (137-145) mmol/L Potassium (3.5-5.1) mmol/L Chloride (98-107) mmol/L BUN (9-20) mg/dL Creatinine (0.66-1.25) mg/dL Glucose (74-99) mg/dL POC Glucose (mg/dL) 253 H 169 H 249 H (75-99) mg/dL Calcium (8.4-10.2) mg/dL Phosphorus (2.5-4.5) mg/dL AST (17-59) U/L ALT (4-49) U/L Total Protein (6.3-8.2) g/dL Albumin (3.5-5.0) g/dL Triglycerides (<150) mg/dL 10/26/19 10/27/19 10/27/19 Range/Units 23:09 00:02 01:05 RBC (4.30-5.90) m/uL Hgb (13.0-17.5) gm/dL Hct (39.0-53.0) % MCV (80.0-100.0) fL Plt Count (150-450) k/uL ABG pCO2 (35-45) mmHg ABG pO2 (83-108) mmHg Sodium (137-145) mmol/L Potassium (3.5-5.1) mmol/L Chloride (98-107) mmol/L BUN (9-20) mg/dL Creatinine (0.66-1.25) mg/dL Glucose (74-99) mg/dL POC Glucose (mg/dL) 225 H 213 H 222 H (75-99) mg/dL Calcium (8.4-10.2) mg/dL Phosphorus (2.5-4.5) mg/dL AST (17-59) U/L ALT (4-49) U/L Total Protein (6.3-8.2) g/dL Albumin (3.5-5.0) g/dL Triglycerides (<150) mg/dL 10/27/19 10/27/19 10/27/19 Range/Units 02:04 03:00 04:00 RBC (4.30-5.90) m/uL Hgb (13.0-17.5) gm/dL Hct (39.0-53.0) % MCV (80.0-100.0) fL Plt Count (150-450) k/uL ABG pCO2 (35-45) mmHg ABG pO2 (83-108) mmHg Sodium (137-145) mmol/L Potassium (3.5-5.1) mmol/L Chloride (98-107) mmol/L BUN (9-20) mg/dL Creatinine (0.66-1.25) mg/dL Glucose (74-99) mg/dL POC Glucose (mg/dL) 152 H 163 H 173 H (75-99) mg/dL Calcium (8.4-10.2) mg/dL Phosphorus (2.5-4.5) mg/dL AST (17-59) U/L ALT (4-49) U/L Total Protein (6.3-8.2) g/dL Albumin (3.5-5.0) g/dL Triglycerides (<150) mg/dL 10/27/19 10/27/19 10/27/19 Range/Units 05:00 05:00 05:02 RBC 3.10 L (4.30-5.90) m/uL Hgb 10.4 L (13.0-17.5) gm/dL Hct 32.0 L (39.0-53.0) % MCV 103.4 H (80.0-100.0) fL Plt Count 88 L (150-450) k/uL ABG pCO2 (35-45) mmHg ABG pO2 (83-108) mmHg Sodium 147 H (137-145) mmol/L Potassium (3.5-5.1) mmol/L Chloride 118 H (98-107) mmol/L BUN 42 H (9-20) mg/dL Creatinine 1.54 H (0.66-1.25) mg/dL Glucose 174 H (74-99) mg/dL POC Glucose (mg/dL) 174 H (75-99) mg/dL Calcium 7.0 L (8.4-10.2) mg/dL Phosphorus 2.0 L (2.5-4.5) mg/dL AST 71 H (17-59) U/L ALT 207 H (4-49) U/L Total Protein 4.1 L (6.3-8.2) g/dL Albumin 1.8 L (3.5-5.0) g/dL Triglycerides 337 H (<150) mg/dL 10/27/19 10/27/19 10/27/19 Range/Units 05:21 05:57 06:56 RBC (4.30-5.90) m/uL Hgb (13.0-17.5) gm/dL Hct (39.0-53.0) % MCV (80.0-100.0) fL Plt Count (150-450) k/uL ABG pCO2 34 L (35-45) mmHg ABG pO2 80 L (83-108) mmHg Sodium (137-145) mmol/L Potassium (3.5-5.1) mmol/L Chloride (98-107) mmol/L BUN (9-20) mg/dL Creatinine (0.66-1.25) mg/dL Glucose (74-99) mg/dL POC Glucose (mg/dL) 174 H 180 H (75-99) mg/dL Calcium (8.4-10.2) mg/dL Phosphorus (2.5-4.5) mg/dL AST (17-59) U/L ALT (4-49) U/L Total Protein (6.3-8.2) g/dL Albumin (3.5-5.0) g/dL Triglycerides (<150) mg/dL 10/27/19 10/27/19 10/27/19 Range/Units 08:09 09:19 10:12 RBC (4.30-5.90) m/uL Hgb (13.0-17.5) gm/dL Hct (39.0-53.0) % MCV (80.0-100.0) fL Plt Count (150-450) k/uL ABG pCO2 (35-45) mmHg ABG pO2 (83-108) mmHg Sodium (137-145) mmol/L Potassium (3.5-5.1) mmol/L Chloride (98-107) mmol/L BUN (9-20) mg/dL Creatinine (0.66-1.25) mg/dL Glucose (74-99) mg/dL POC Glucose (mg/dL) 140 H 170 H 177 H (75-99) mg/dL Calcium (8.4-10.2) mg/dL Phosphorus (2.5-4.5) mg/dL AST (17-59) U/L ALT (4-49) U/L Total Protein (6.3-8.2) g/dL Albumin (3.5-5.0) g/dL Triglycerides (<150) mg/dL 10/27/19 10/27/19 Range/Units 11:41 13:13 RBC (4.30-5.90) m/uL Hgb (13.0-17.5) gm/dL Hct (39.0-53.0) % MCV (80.0-100.0) fL Plt Count (150-450) k/uL ABG pCO2 (35-45) mmHg ABG pO2 (83-108) mmHg Sodium (137-145) mmol/L Potassium (3.5-5.1) mmol/L Chloride (98-107) mmol/L BUN (9-20) mg/dL Creatinine (0.66-1.25) mg/dL Glucose (74-99) mg/dL POC Glucose (mg/dL) 168 H 168 H (75-99) mg/dL Calcium (8.4-10.2) mg/dL Phosphorus (2.5-4.5) mg/dL AST (17-59) U/L ALT (4-49) U/L Total Protein (6.3-8.2) g/dL Albumin (3.5-5.0) g/dL Triglycerides (<150) mg/dL Microbiology - Last 24 Hours (Table) 10/24/19 19:42 Gram Stain - Final Sputum Sputum Culture - Final Layne albicans 10/23/19 21:45 Blood Culture - Preliminary Blood No Growth after 72 hours 10/23/19 21:30 Blood Culture - Preliminary Blood No Growth after 72 hours 10/21/19 18:20 Blood Culture - Preliminary Blood No Growth after 120 hours 10/25/19 04:45 Urine Culture - Final Urine,Catheterized <Leon,Bess N - Last Filed: 10/31/19 12:57> Subjective Patient seen and evaluated with nurse practitioner. HISTORY OF PRESENT ILLNESS: The patient is a 79 year old male who presented with multiple medical comorbidities including alternate status, multiple electrolyte dyscrasias as well as bowel obstruction. He is now having bowel movements. He has been intubated beyond 5 days. Pressures requirement has improved. REVIEW OF ORGAN SYSTEMS: Still having temperatures. T-max 100.5. He is on full mechanical ventilation. PHYSICAL EXAM: VITALS: Reviewed CONSTITUTIONAL: Well developed and in no acute distress. EYES: Conjuctivae without sclera icterus. HEAD, EARS, NOSE, THROAT: Moist buccal mucosa. Head is atraumatic, normocephalic. No nasal drainage. Nasogastric tube present and functioning. NECK: Supple. No thyroidomegaly. RESPIRATORY: Mechanical ventilation. No gross wheezes. CARDIOVASCULAR: Regular rate. Regular rhythm. Extremities without edema. Palpable 2+ radial pulses. ABDOMEN: Soft. Mild distention. No peritonitis. MUSCULOSKELETAL: Edema of the bilateral hands and knees 1+. SKIN: Warm and well perfused with good skin turgor. NEUROLOGIC: Patient sedated. PSYCH: Patient sedated CLINCAL LABS: Reviewed. WBC normal, 10,100 from 9600, yesterday. Repeat covert testing negative. IMAGING: Chest x-ray independently reviewed demonstrating bilateral pleural effusions. This is my personal interpretation. ASSESSMENT: 1. Abnormal computed tomography scan with small bowel distention, resolved 2. Abdominal aortic aneurysm 3. Uncontrolled diabetes type 2 with hyperglycemia 4. Lactic acidosis 5. Acute respiratory failure 6. Dementia PLAN: 1. Agree with above with start of tube feeds. 2. Overall improvement and resolution of small bowel obstruction identified Objective - Vital Signs Vital signs: Vital Signs Temp 98.1 F 10/31/19 12:00 Pulse 92 10/31/19 12:00 Resp 26 H 10/31/19 12:00 BP 123/57 10/31/19 12:00 Pulse Ox 98 10/31/19 12:00 Intake & Output 10/30/19 10/31/19 10/31/19 18:59 06:59 18:59 Intake Total 2663.725 3037.237 822 Output Total 2170 1850 390 Balance 237.960 8495.237 432 Weight 87.4 kg Intake: IV 269 256 52 .9 Sodium Chloride @ 10ml 130 120 40 /hr Piperacillin-Tazobactam 3 100 100 .375 gm In Sodium Chloride 0.9% 100 ml @ 25 mls/hr IVPB Q8H INDU Rx#: [id number] Pressure Bag 39 36 12 Intake, IV Titration 414.725 431.237 150 Amount Amiodarone 300 mg In 250 250 Dextrose 5% in Water 250 ml @ 0.5 MG/MIN 25 mls/hr IV .Q10H INDU Rx#: [id number] Insulin Regular 100 unit 64.725 81.237 In Sodium Chloride 0.9% 100 ml @ Per Protocol IV .Q0M INDU Rx#:[id number] metroNIDAZOLE-NS PMX 500 100 100 150 mg In Saline 1 100ml.bag @ 100 mls/hr IVPB Q8HR INDU Rx#:[id number] Tube Feeding 980 1050 420 Other 1000 1300 200 Output: Urine 2170 850 390 Stool 1000 Other: Voiding Method Indwelling Catheter Indwelling Catheter Indwelling Catheter # Voids 1 1 ABP, PAP, CO, CI - Last Documented Arterial Blood Pressure 156/57 - Labs CBC & Chem 7: 10/31/19 04:24 10/31/19 04:24 Labs: Abnormal Lab Results - Last 24 Hours (Table) 10/30/19 10/30/19 10/30/19 Range/Units 13:07 14:18 15:13 WBC (3.8-10.6) k/uL RBC (4.30-5.90) m/uL Hgb (13.0-17.5) gm/dL Hct (39.0-53.0) % MCV (80.0-100.0) fL Plt Count (150-450) k/uL Neutrophils # (Manual) (1.3-7.7) k/uL Lymphocytes # (Manual) (1.0-4.8) k/uL ABG pCO2 (35-45) mmHg ABG HCO3 (21-25) mmol/L ABG O2 Saturation (94-97) % Sodium (137-145) mmol/L Potassium (3.5-5.1) mmol/L Chloride (98-107) mmol/L Carbon Dioxide (22-30) mmol/L BUN (9-20) mg/dL Glucose (74-99) mg/dL POC Glucose (mg/dL) 208 H 194 H 129 H (75-99) mg/dL Calcium (8.4-10.2) mg/dL 10/30/19 10/30/19 10/30/19 Range/Units 16:10 16:58 17:57 WBC (3.8-10.6) k/uL RBC (4.30-5.90) m/uL Hgb (13.0-17.5) gm/dL Hct (39.0-53.0) % MCV (80.0-100.0) fL Plt Count (150-450) k/uL Neutrophils # (Manual) (1.3-7.7) k/uL Lymphocytes # (Manual) (1.0-4.8) k/uL ABG pCO2 (35-45) mmHg ABG HCO3 (21-25) mmol/L ABG O2 Saturation (94-97) % Sodium (137-145) mmol/L Potassium (3.5-5.1) mmol/L Chloride (98-107) mmol/L Carbon Dioxide (22-30) mmol/L BUN (9-20) mg/dL Glucose (74-99) mg/dL POC Glucose (mg/dL) 203 H 196 H 194 H (75-99) mg/dL Calcium (8.4-10.2) mg/dL 10/30/19 10/30/19 10/30/19 Range/Units 18:58 20:09 21:06 WBC (3.8-10.6) k/uL RBC (4.30-5.90) m/uL Hgb (13.0-17.5) gm/dL Hct (39.0-53.0) % MCV (80.0-100.0) fL Plt Count (150-450) k/uL Neutrophils # (Manual) (1.3-7.7) k/uL Lymphocytes # (Manual) (1.0-4.8) k/uL ABG pCO2 (35-45) mmHg ABG HCO3 (21-25) mmol/L ABG O2 Saturation (94-97) % Sodium (137-145) mmol/L Potassium (3.5-5.1) mmol/L Chloride (98-107) mmol/L Carbon Dioxide (22-30) mmol/L BUN (9-20) mg/dL Glucose (74-99) mg/dL POC Glucose (mg/dL) 190 H 201 H 185 H (75-99) mg/dL Calcium (8.4-10.2) mg/dL 10/30/19 10/30/19 10/31/19 Range/Units 21:57 22:59 00:06 WBC (3.8-10.6) k/uL RBC (4.30-5.90) m/uL Hgb (13.0-17.5) gm/dL Hct (39.0-53.0) % MCV (80.0-100.0) fL Plt Count (150-450) k/uL Neutrophils # (Manual) (1.3-7.7) k/uL Lymphocytes # (Manual) (1.0-4.8) k/uL ABG pCO2 (35-45) mmHg ABG HCO3 (21-25) mmol/L ABG O2 Saturation (94-97) % Sodium (137-145) mmol/L Potassium (3.5-5.1) mmol/L Chloride (98-107) mmol/L Carbon Dioxide (22-30) mmol/L BUN (9-20) mg/dL Glucose (74-99) mg/dL POC Glucose (mg/dL) 139 H 144 H 148 H (75-99) mg/dL Calcium (8.4-10.2) mg/dL 10/31/19 10/31/19 10/31/19 Range/Units 01:20 02:08 03:04 WBC (3.8-10.6) k/uL RBC (4.30-5.90) m/uL Hgb (13.0-17.5) gm/dL Hct (39.0-53.0) % MCV (80.0-100.0) fL Plt Count (150-450) k/uL Neutrophils # (Manual) (1.3-7.7) k/uL Lymphocytes # (Manual) (1.0-4.8) k/uL ABG pCO2 (35-45) mmHg ABG HCO3 (21-25) mmol/L ABG O2 Saturation (94-97) % Sodium (137-145) mmol/L Potassium (3.5-5.1) mmol/L Chloride (98-107) mmol/L Carbon Dioxide (22-30) mmol/L BUN (9-20) mg/dL Glucose (74-99) mg/dL POC Glucose (mg/dL) 145 H 155 H 155 H (75-99) mg/dL Calcium (8.4-10.2) mg/dL 10/31/19 10/31/19 10/31/19 Range/Units 03:55 04:24 04:24 WBC 14.4 H (3.8-10.6) k/uL RBC 2.98 L (4.30-5.90) m/uL Hgb 9.8 L (13.0-17.5) gm/dL Hct 30.8 L (39.0-53.0) % MCV 103.5 H (80.0-100.0) fL Plt Count 467 H (150-450) k/uL Neutrophils # (Manual) 12.80 H (1.3-7.7) k/uL Lymphocytes # (Manual) 0.72 L (1.0-4.8) k/uL ABG pCO2 (35-45) mmHg ABG HCO3 (21-25) mmol/L ABG O2 Saturation (94-97) % Sodium 146 H (137-145) mmol/L Potassium 3.3 L (3.5-5.1) mmol/L Chloride 119 H (98-107) mmol/L Carbon Dioxide 21 L (22-30) mmol/L BUN 35 H (9-20) mg/dL Glucose 165 H (74-99) mg/dL POC Glucose (mg/dL) 149 H (75-99) mg/dL Calcium 7.3 L (8.4-10.2) mg/dL 10/31/19 10/31/19 10/31/19 Range/Units 04:57 06:10 06:55 WBC (3.8-10.6) k/uL RBC (4.30-5.90) m/uL Hgb (13.0-17.5) gm/dL Hct (39.0-53.0) % MCV (80.0-100.0) fL Plt Count (150-450) k/uL Neutrophils # (Manual) (1.3-7.7) k/uL Lymphocytes # (Manual) (1.0-4.8) k/uL ABG pCO2 (35-45) mmHg ABG HCO3 (21-25) mmol/L ABG O2 Saturation (94-97) % Sodium (137-145) mmol/L Potassium (3.5-5.1) mmol/L Chloride (98-107) mmol/L Carbon Dioxide (22-30) mmol/L BUN (9-20) mg/dL Glucose (74-99) mg/dL POC Glucose (mg/dL) 167 H 130 H 126 H (75-99) mg/dL Calcium (8.4-10.2) mg/dL 10/31/19 10/31/19 10/31/19 Range/Units 07:39 08:54 10:06 WBC (3.8-10.6) k/uL RBC (4.30-5.90) m/uL Hgb (13.0-17.5) gm/dL Hct (39.0-53.0) % MCV (80.0-100.0) fL Plt Count (150-450) k/uL Neutrophils # (Manual) (1.3-7.7) k/uL Lymphocytes # (Manual) (1.0-4.8) k/uL ABG pCO2 29 L (35-45) mmHg ABG HCO3 20 L (21-25) mmol/L ABG O2 Saturation 98.8 H (94-97) % Sodium (137-145) mmol/L Potassium (3.5-5.1) mmol/L Chloride (98-107) mmol/L Carbon Dioxide (22-30) mmol/L BUN (9-20) mg/dL Glucose (74-99) mg/dL POC Glucose (mg/dL) 183 H 223 H (75-99) mg/dL Calcium (8.4-10.2) mg/dL 10/31/19 10/31/19 Range/Units 11:05 11:59 WBC (3.8-10.6) k/uL RBC (4.30-5.90) m/uL Hgb (13.0-17.5) gm/dL Hct (39.0-53.0) % MCV (80.0-100.0) fL Plt Count (150-450) k/uL Neutrophils # (Manual) (1.3-7.7) k/uL Lymphocytes # (Manual) (1.0-4.8) k/uL ABG pCO2 (35-45) mmHg ABG HCO3 (21-25) mmol/L ABG O2 Saturation (94-97) % Sodium (137-145) mmol/L Potassium (3.5-5.1) mmol/L Chloride (98-107) mmol/L Carbon Dioxide (22-30) mmol/L BUN (9-20) mg/dL Glucose (74-99) mg/dL POC Glucose (mg/dL) 203 H 212 H (75-99) mg/dL Calcium (8.4-10.2) mg/dL Microbiology - Last 24 Hours (Table) 10/28/19 14:00 Blood Culture - Preliminary Blood No Growth after 48 hours 10/28/19 13:55 Gram Stain - Final Sputum Sputum Culture - Final Layne albicans Assessment and Plan (1) Hyponatremia Current Visit: Yes Status: Acute Code(s): E87.1 - HYPO-OSMOLALITY AND HYPONATREMIA SNOMED Code(s): 36159935 (2) Hyperkalemia Current Visit: Yes Status: Acute Code(s): E87.5 - HYPERKALEMIA SNOMED Code(s): 66000535 (3) Sigmoid diverticulitis Current Visit: Yes Status: Acute Code(s): K57.32 - DVTRCLI OF LG INT W/O PERFORATION OR ABSCESS W/O BLEEDING SNOMED Code(s): 730809498 (4) Dynamic ileus Current Visit: Yes Status: Acute Code(s): K56.7 - ILEUS, UNSPECIFIED SNOME D Code(s): 49166365 (5) Hyperosmolar syndrome Current Visit: Yes Status: Acute Code(s): E87.0 - HYPEROSMOLALITY AND HYPERNATREMIA SNOMED Code(s): 45777909 (6) Hyperosmolarity due to secondary diabetes mellitus Current Visit: Yes Status: Acute Code(s): E13.00 - OTH DIAB W HYPROSM W/O NONKET HYPRGLY-HYPROS COMA ([facility]) SNOMED Code(s): 00744052 (7) Altered mental state Current Visit: No Status: Acute Code(s): R41.82 - ALTERED MENTAL STATUS, U NSPECIFIED SNOMED Code(s): 078502014 (8) Dementia Current Visit: No Status: Acute Code(s): F03.90 - UNSPECIFIED DEMENTIA WITHOUT BEHAVIORAL DISTURBANCE SNOMED Code(s): 24456831 (9) Renal insufficiency syndrome Current Visit: No Status: Acute Code(s): N28.9 - DISORDER OF KIDNEY AND URETER, UNSPECIFIED SNOMED Code(s): 484360275 (10) Shock liver Current Visit: Yes Status: Acute Code(s): K72.00 - ACUTE AND SUBACUTE HEPATIC FAILURE WITHOUT COMA SNOMED Code(s): 896361820 (11) Sepsis Current Visit: Yes Status: Acute Code(s): A41.9 - SEPSIS, UNSPECIFIED ORGANISM SNOMED Code(s): 29065525
[2019-10-27 14:08] LABS: Glucose,Whole Blood 168 mg/dL (75-99)
[2019-10-27 15:10] LABS: Glucose,Whole Blood 168 mg/dL (75-99)
--- NOTE | 2019-10-27 15:26 | P.PN ---
Subjective Progress Note Date: 10/27/19 Principal diagnosis: Hypovolemic shock, possible septic shock secondary to abdominal sepsis. 80-year-old male patient known history of dementia, diabetes hypertension osteoarthritis in addition to abdominal aortic aneurysm, presented to the ED with altered mentation and severe dehydration. The patient's was noted to have elevated blood sugars at home which prompted this hospital visit. He was unable to provide any history at time of admission. He was confused and disoriented and his condition was progressively getting worse over this past few weeks. He apparently had generalized weakness, falls, and he was not seeking any medical attention. He has Alzheimer's dementia. His has Alzheimer's dementia also. Apparently his oral intake has been minimal and the patient was drinking only 4 L of soda on a daily basis. He has been noncompliant his diabetic medications also. A blood sugar of more than 1800. Sodium was 116. Potassium was 5.7 with a chloride of 74 and a serum bicarbonate 8 with an anion gap of 34. Creatinine was 2.4 with a BUN of 33. The serum lactate was 11.7. Troponin was 0.8. Phosphorus was 8.8. Lipase was 229. UA showed +4 glucose and the serum acetone was negative. The patient received a total of 4 L of IV fluids in the emergency department. He was started on an insulin drip. Currently the patient is on half-normal saline with 20 mEq of potassium. The patient metabolic acidosis improving. Based on the follow-up blood gases the pH was 7.0 and septal 7.13. Serum bicarb is also on the rise. The serum pCO2 is 26. Troponin 38. This was done and FiO2 of 36%. Sodium level improved and septal 131 and a potassium level is at 3.8. Anion gap is improving is down to 28. Creatinine is still at 2.1. Most recent blood sugar shows that the sugar is still elevated above 600 with a serum measurement of 1230. The chest x-ray shows some subsegmental atelectasis in the right lower lobe. CAT scan of the brain shows no evidence of any acute hemorrhage. There is some degenerative changes and nonspecific white matter changes consistent with remote ischemia. EKG showing sinus tachycardia along with Q waves over the anteroseptal leads consistent with an old infarct. Heart rate is around 102. On today's evaluation of 10/22/2019, the patient is still lethargic and somnolent and encephalopathic. He is unable to volunteer any history. He has dementia. Furthermore there has been significant metabolic disturbances, leading to his impaired mentation. In terms of his blood sugar control, the patient has been on insulin drip at 3 units an hour. His IV fluids have been running in the form of D5 half-normal saline along with 20 mEq of potassium at the rate of 150 mL an hour. The patient was receiving another 2 L of IV fluid bolus based on the fact that it looks quite dry with very dry mucosal membranes on today's evaluation. In terms of his blood sugar control, the blood sugar was steadily going down and after the blood sugar went down below 300 was switched him to a D5 half-normal saline solution. His anion gap is at 10. The serum bicarb is at 18. His lactic acid level has dropped down to 6.0. His troponin peaked at 2.2. Denies having any chest pain. Note that his based on troponin was at 0.8. His EKG showed old Q-wave changes over the anteroseptal leads and echocardiac Tito was done today and the patient was found to have a ejection fraction estimated to be around 30-35% along with anteroseptal and apical hypokinesis. No evidence of an aortic valve stenosis. Unable to estimate the right-sided pressures. Unable to have a good visualization of the rest of the valves. His white cell count of 15.4. His antibiotic coverage includes a combination of Rocephin and Zithromax and Diflucan for now. There is some erythema along the penile tip and the Maradiaga catheter is in place. Repeat chest x-ray from today shows atelectatic changes in the right lower lobe. No other significant abnormalities have been noted. The patient is currently on 4 L of oxygen by nasal cannula with a pulse ox of 98%. He still has some underlying sinus tachycardia. On today's evaluation of 10/23/2019 the patient's condition decompensated. I have already contacted the son and updated them on his father's condition. Note that by yesterday afternoon, the patient became progressively more restless, agitated, shortness of breath, and he was also indicating the possibility of abdominal distention and pain. He was hard to communicate with him as the patient was not providing any meaningful information and he was altered mentally. Nevertheless, we suspected that the patient was having increased abdominal pain and discomfort. At that point, decided to insert an NG tube and immediately approximately a liter of gastric juice was obtained as a return. Abdomen remained quite tender and distended. At that point, the patient was also becoming more hypotensive. He was given more IV fluids. He was intubated and placed on a mechanical ventilator. Post intubation, the patient became hypotensive and he was started on IV pressors. Blood gases was noted. Chest x- ray was noted. The patient was developing a right lower lobe pulmonary infiltration. He was taken down for a CAT scan of the abdomen and pelvis and the CAT scan showed evidence of a infiltrate in the right lung base and fatty i nfiltration of the liver and some multiple calcified gallstones and the bile ducts were not dilated. At the same time, the CAT scan showed a fusiform 4.4 cm lower abdominal aortic aneurysm. There was no evidence of any retroperitoneal lymphadenopathy. There was multiple diverticula in the sigmoid colon and multiple dilated air fluid filled loops of the small bowel and the small bowel was dilated up to 4 cm in size. There was also mild wall thickening of the ascending colon. There was also minimal fat stranding around the sigmoid colon. There was osteoarthritis of the right hip. Antibiotics were modified and the patient was started on IV Zosyn. This morning, the patient is sedated with propofol at 20 g. This is to be switched to Versed at the patient's triglyceride level came up above 500. The patient is receiving IV fluids in the form of normal saline at rate of 100 mL an hour. His urine output is diminished and the patient's creatinine is at 2.5. The neck fluid balance over the past 24 hours has been +5.3 L. The patient is currently on norepinephrine infusion running at 0.4 mcg/kg per minute. The patient is also on insulin drip at 9 units an hour. Noted the blood sugar control is improved and the patient's lactic acid level was also improving it was down to 3.7. During the course of this treatment, the patient developed also a shock liver with elevated AST and ALT. He developed an acute kidney injury on top of his chronic kidney failure with a creatinine maxing at 2.7 down to 2.5. The patient is currently on a mechanical ventilator on assist control mode at the rate of 28 with tidal volume of 500 and FiO2 of 60% with a PEEP of 5. Morning blood gases showed a pH of 7.39 with a pCO2 of 26 and pO2 of 185. Morning chest x-ray showed right lower lobe pulmonary infiltration and subsequently a triple-lumen catheter was inserted and the supportive living catheter was inserted without any complications. Surgical consultation was also obtained regarding the abdominal findings. On 10/24/2019, the patient remains critically ill. The patient remains in shock and this is most likely a septic shock following an acute hypovolemic shock. The patient initially presented with HHS. Subsequently the patient started acting septic and the source is most likely the abdomen. The patient had a elevated TROPONIN level. Lactic acid levels were elevated and the patient had abdominal pain and distention. NG tube was inserted and a CAT scan of the abdomen was done that showed findings suggesting small bowel obstruction and some inflammatory changes involving the ascending colon and the sigmoid. Nevertheless, there was no evidence of any acute abdomen or pneumoperitoneum with ischemic bowel. The patient was kept on Zosyn and Flagyl was added. He did have difficulties with his hemodynamics and the patient was on and off becoming hypotensive and he was getting IV fluids to maintain a CVP above 10. The patient is currently receiving normal saline at the rate of 100 mL an hour. He is also on vasopressin at physiologic dose of 0.03 units per minute and the patient is on norepinephrine running at 0.38 g per KG per minute. Abdomen is still slightly distended and the patient is a bit tender and he can grimace upon abdominal [id number] white him being sedated with Versed which is running at 6 mg an hour. Gen. surgery will be asked to evaluate this patient. NG tube is in place and output over the past 24 hours has been in the order of 400 mL of gastric material. No bowel movements yet. He is having episodes of fever and the patient has had a temperature max of 11.1 and a temperature is down to 99.8. The patient had 2 additional sets of blood cultures sent patient was given a dose of vancomycin yesterday. This was done pending further cultures. Meanwhile, the patient remains on a mechanical ventilator. This morning, he remained on assist control mode with a tidal volume of 500 and FiO2 of 40% with a PEEP of 5. Chest x-ray is showing stable bilateral pulmonary infiltrates and atelectatic changes in lung bases. ET tube in good location so in the OG-tube. Her blood gases showed a pH of 7.39 with a pCO2 of 25 and pO2 of 67 and this was on above-mentioned ventilator setting. Lactic acid level is gradually dropped down to 3.0. The patient has shock liver. LFTs are considerably abnormal and the numbers are improving. AST is down to 2153 and ALT is down to 1107. As stated, neck yesterday dropped down to 3.2, the creatinine is still elevated at 2.2 with a BUN of 39 and the patient has a mild anion gap metabolic acidosis with a gap of 11 which is improved and his serum bicarbonate of 15. On today's evaluation of 10/25/2019, the patient remains critically ill. Remains intubated on a mechanical ventilator and remains sedated. On today's evaluation, he had an assist-control mode of ventilation and the patient is at the rate of 28 with a tidal volume of 500 and FiO2 of 50% with a PEEP of 5. The blood gases Show a pH of 7.51 with a pCO2 of 28 and pO2 of 65 and I think this is a essentially respiratory alkalosis as the patient's metabolic acidosis has recovered and the patient's serum bicarbonate was up to 22 while being given a bicarb infusion. The chest x-ray from today shows no significant interval change compared to yesterday's chest x-ray. There is a elevation of the right hemidiaphragm. The ET tube and NG tube remains in place. There is a left subclavian triple-lumen catheter in place. In my opinion, the patient remains quite septic. The patient is still having episodes of fever. The patient remains in shock and pressor dependent. Vasopressin is running at physiologic dose and the norepinephrine infusion has been drop down to 0.3 g per KG per minute. I had a discussion with the general surgeon and will going to continue the conservative approach. Patient is considered to be a high surgical risk for even exploration. Meanwhile, NG tube is in place and has drained approximately 900 mL of gastric material over the past 24 hours. Abdomen is slightly improved and less distended compared to yesterday. There is some mild direct tenderness without rebound tenderness. The patient is hypoactive in terms of his bowel sounds. Extremities abdomen is being done for a small bowel follow-through. The patient remains on insulin which is running at 2.5 units an hour for blood sugar control. The patient is on bicarb drip that he'll be taken off and this will decision to half-normal saline as the patient has also developed some hypernatremia. Serum bicarb is up to 21. He is having episodes of fever still. All of the repeat blood cultures came back negative. Hemoglobin is at 12.5. White cell count is at 10.7. Platelet count has dropped down to 94% is stable compared to yesterday. On 10/26/2019, the patient is currently being seen for a follow-up intubated on a mechanical ventilator in the intensive care unit. The patient remains sedated with Versed running at 6 mg an hour. While sedated and calm and comfortable and episodically requiring Dilaudid for pain control. He is on assist control rate of 22 with a tidal volume of 500 and FiO2 of 40% with a PEEP of 5. Blood gases showed a pH of 7.30 with a pCO2 of 32 and pO2 of 79 and the chest x-ray shows moderate-sized bilateral pleural effusions right more than left. ET tube is in a good location. NG tube is in good location. Output from the NG has slowed down and the patient is producing approximately 300-400 mL of NG output over the past 24 hours. The initial small bowel follow-through was consistent with small bowel obstruction as there was no passage of contrast past the jejunum. S ubsequent x-ray of the abdomen was done this morning and contrast has made it to the colon and as such there is probably there is no evidence of anatomic obstruction and this could be essentially an ileus. The patient remains nothing by mouth. The patient will be started on TPN for nutritional support. White cell count of 9.6. The sodium is at 149. BNP is 44 with a creatinine of 1.8 which is improved compared to yesterday. Most recent lactic acid level is down to 2.8. The patient was a shock liver and the AST/ALT levels are also improving based on yesterday's lab. No significant fever episodes since yesterday evening and the patient is not spiking any further temperature. Cultures are negative and the patient remains on a combination of Zosyn and Flagyl. Patient was reevaluated today on 10/27/19, remains in the ICU, intubated and mechanically ventilated. Patient's ventilator settings are assist control rate of 22 tidal volume is 500, FiO2 is 40%, PEEP is 5. ABG showed a pO2 of 80 pCO2 of 34 pH of 7.44. His drips include IV fluid at D5W 50 mL/h, TPN, Versed at 2 mg per hour, insulin at 5 units per hour, vasopressin at 0.03 units per minute. He is also on norepinephrine. 13 mcg/kg/m. Patient remains on Flagyl and Zosyn for presumptive abdominal sepsis. His CVP today is 5. Patient did have a mucoid bowel movement last night. Chest x-ray shows bilateral pleural ef fusions, right more so than left. Labs today showed relatively normal CBC, WBC count is 10.1 hemoglobin is 10.4. Electrolytes are normal sodium is improving down to 147 BUN is 42 creatinine is 1.54. Pro-calcitonin remains elevated at 8.54. Liver enzymes are improving. Objective - Vital Signs Vital signs: Vital Signs Temp 99.3 F 10/27/19 12:00 Pulse 80 10/27/19 14:00 Resp 22 10/27/19 14:00 BP 130/62 10/27/19 10:00 Pulse Ox 96 10/27/19 14:00 Intake & Output 10/26/19 10/27/19 10/27/19 18:59 06:59 18:59 Intake Total 0462.624 7287.364 1120.861 Output Total 1155 995 630 Balance 170.973 454.364 490.861 Weight 82.4 kg 81.7 kg 81.7 kg Intake: IV 1092.49 1357.08 873.59 Dextrose 5% in Water 1, 550 450 000 ml @ 50 mls/hr IV . Q20H [facility] Rx#:[id number] Piperacillin-Tazobactam 3 100 150 75 .375 gm In Sodium Chloride 0.9% 100 ml @ 25 mls/hr IVPB Q8H [facility] Rx#: [id number] Potassium Chloride 10 meq 200 In Water For Injection 1 100ml.bag @ 100 mls/hr IVPB Q1H [facility] Rx#: [id number] Potassium Chloride 20 meq 300 100 In Water For Injection 1 100ml.bag @ 50 mls/hr IVPB Q2H IN[facility] Rx#: [id number] Pressure Bag 72 72 54 Sodium Chloride 0.45% 1, 400 000 ml @ 100 mls/hr IV . Q10H IN[facility] Rx#:[id number] Sodium Chloride 0.9% 150 50.49 55.08 4.59 ml @ 0.03 UNITS/MIN 4.59 mls/hr IV .Q24H IN[facility] with Vasopressin 60 unit Rx#: [id number] Sodium Chloride 0.9% 500 170 130 90 ml 500 ml @ 20 mls/hr IV .Q24H IN[facility] Rx#:[id number] metroNIDAZOLE-NS PMX 500 100 100 100 mg In Saline 1 100ml.bag @ 100 mls/hr IVPB Q8HR IN[facility] Rx#:[id number] Intake, IV Titration 233.483 92.284 247.271 Amount Insulin Regular 100 unit 39.945 52.319 34.138 In Sodium Chloride 0.9% 100 ml @ Per Protocol IV .Q0M IN[facility] Rx#:[id number] Midazolam HCl 50 mg In 9.4 Sodium Chloride 0.9% 40 ml @ 1 MG/HR 1 mls/hr IV .Q24H IN[facility] Rx#:[id number] Norepinephrine 32 mg In 184.138 39.965 63.133 Sodium Chloride 0.9% 218 ml @ 0.42 MCG/KG/MIN 14. 805 mls/hr IV .[id number] [facility] Rx#:[id number] Potassium Phosphate 10 150 mmol In Sodium Chloride 0 .9% 100 ml @ 50 mls/hr IV Q2H IN[facility] Rx#:[id number] Output: Gastric Drainage 390 250 Urine 765 745 630 Other: Voiding Method Indwelling Catheter Indwelling Catheter Indwelling Catheter # Voids 50 # Bowel Movements 1 ABP, PAP, CO, CI - Last Documented Arterial Blood Pressure 111/44 - Exam Physical Exam: Revealed an 79-year-old white male sedated, intubated, in no distress. Head: Atraumatic, normocephalic. HEENT:[Neck is supple.] [No neck masses.] [No thyromegaly.] [No JVD.] PERRLA, EOMI, no icterus, intact orogastric tube and endotracheal tube. Chest: [Symmetrical chest expansion, diminished breath sounds at the bases, no rhonchi and no wheezes.] Cardiac Exam: [Normal S1 and S2, no S3 gallop, no murmur.] Abdomen: [Flat, soft, nontender, diminished bowel sounds. No rebound, no guarding.] Extremities: [No clubbing, 1+ bipedal edema and chronic venous stasis changes bilaterally. Chronic superficial ulcerations of lower extremities noted. Neurological Exam: Could not be assessed, patient is intubated mechanically ventilated and on versed Skin: Superficial ulcerations lower extremities and chronic venous stasis changes. - Labs CBC & Chem 7: 10/27/19 05:00 10/27/19 05:00 Labs: Abnormal Lab Results - Last 24 Hours (Table) 10/26/19 10/26/19 10/26/19 Range/Units 06:05 15:28 16:31 RBC (4.30-5.90) m/uL Hgb (13.0-17.5) gm/dL Hct (39.0-53.0) % MCV (80.0-100.0) fL Plt Count (150-450) k/uL ABG pCO2 (35-45) mmHg ABG pO2 (83-108) mmHg Sodium (137-145) mmol/L Potassium (3.5-5.1) mmol/L Chloride (98-107) mmol/L BUN (9-20) mg/dL Creatinine (0.66-1.25) mg/dL Glucose (74-99) mg/dL POC Glucose (mg/dL) 177 H 200 H (75-99) mg/dL Calcium (8.4-10.2) mg/dL Phosphorus (2.5-4.5) mg/dL AST (17-59) U/L ALT (4-49) U/L Total Protein (6.3-8.2) g/dL Albumin (3.5-5.0) g/dL Triglycerides (<150) mg/dL Procalcitonin 8.54 H (0.02-0.09) ng/mL 10/26/19 10/26/19 10/26/19 Range/Units 17:29 18:49 19:14 RBC (4.30-5.90) m/uL Hgb (13.0-17.5) gm/dL Hct (39.0-53.0) % MCV (80.0-100.0) fL Plt Count (150-450) k/uL ABG pCO2 (35-45) mmHg ABG pO2 (83-108) mmHg Sodium (137-145) mmol/L Potassium (3.5-5.1) mmol/L Chloride (98-107) mmol/L BUN (9-20) mg/dL Creatinine (0.66-1.25) mg/dL Glucose (74-99) mg/dL POC Glucose (mg/dL) 192 H 204 H 202 H (75-99) mg/dL Calcium (8.4-10.2) mg/dL Phosphorus (2.5-4.5) mg/dL AST (17-59) U/L ALT (4-49) U/L Total Protein (6.3-8.2) g/dL Albumin (3.5-5.0) g/dL Triglycerides (<150) mg/dL Procalcitonin (0.02-0.09) ng/mL 10/26/19 10/26/19 10/26/19 Range/Units 19:33 19:54 20:52 RBC (4.30-5.90) m/uL Hgb (13.0-17.5) gm/dL Hct (39.0-53.0) % MCV (80.0-100.0) fL Plt Count (150-450) k/uL ABG pCO2 (35-45) mmHg ABG pO2 (83-108) mmHg Sodium (137-145) mmol/L Potassium 3.4 L (3.5-5.1) mmol/L Chloride (98-107) mmol/L BUN (9-20) mg/dL Creatinine (0.66-1.25) mg/dL Glucose (74-99) mg/dL POC Glucose (mg/dL) 253 H 169 H (75-99) mg/dL Calcium (8.4-10.2) mg/dL Phosphorus (2.5-4.5) mg/dL AST (17-59) U/L ALT (4-49) U/L Total Protein (6.3-8.2) g/dL Albumin (3.5-5.0) g/dL Triglycerides (<150) mg/dL Procalcitonin (0.02-0.09) ng/mL 10/26/19 10/26/19 10/27/19 Range/Units 22:03 23:09 00:02 RBC (4.30-5.90) m/uL Hgb (13.0-17.5) gm/dL Hct (39.0-53.0) % MCV (80.0-100.0) fL Plt Count (150-450) k/uL ABG pCO2 (35-45) mmHg ABG pO2 (83-108) mmHg Sodium (137-145) mmol/L Potassium (3.5-5.1) mmol/L Chloride (98-107) mmol/L BUN (9-20) mg/dL Creatinine (0.66-1.25) mg/dL Glucose (74-99) mg/dL POC Glucose (mg/dL) 249 H 225 H 213 H (75-99) mg/dL Calcium (8.4-10.2) mg/dL Phosphorus (2.5-4.5) mg/dL AST (17-59) U/L ALT (4-49) U/L Total Protein (6.3-8.2) g/dL Albumin (3.5-5.0) g/dL Triglycerides (<150) mg/dL Procalcitonin (0.02-0.09) ng/mL 10/27/19 10/27/19 10/27/19 Range/Units 01:05 02:04 03:00 RBC (4.30-5.90) m/uL Hgb (13.0-17.5) gm/dL Hct (39.0-53.0) % MCV (80.0-100.0) fL Plt Count (150-450) k/uL ABG pCO2 (35-45) mmHg ABG pO2 (83-108) mmHg Sodium (137-145) mmol/L Potassium (3.5-5.1) mmol/L Chloride (98-107) mmol/L BUN (9-20) mg/dL Creatinine (0.66-1.25) mg/dL Glucose (74-99) mg/dL POC Glucose (mg/dL) 222 H 152 H 163 H (75-99) mg/dL Calcium (8.4-10.2) mg/dL Phosphorus (2.5-4.5) mg/dL AST (17-59) U/L ALT (4-49) U/L Total Protein (6.3-8.2) g/dL Albumin (3.5-5.0) g/dL Triglycerides (<150) mg/dL Procalcitonin (0.02-0.09) ng/mL 10/27/19 10/27/19 10/27/19 Range/Units 04:00 05:00 05:00 RBC 3.10 L (4.30-5.90) m/uL Hgb 10.4 L (13.0-17.5) gm/dL Hct 32.0 L (39.0-53.0) % MCV 103.4 H (80.0-100.0) fL Plt Count 88 L (150-450) k/uL ABG pCO2 (35-45) mmHg ABG pO2 (83-108) mmHg Sodium 147 H (137-145) mmol/L Potassium (3.5-5.1) mmol/L Chloride 118 H (98-107) mmol/L BUN 42 H (9-20) mg/dL Creatinine 1.54 H (0.66-1.25) mg/dL Glucose 174 H (74-99) mg/dL POC Glucose (mg/dL) 173 H (75-99) mg/dL Calcium 7.0 L (8.4-10.2) mg/dL Phosphorus 2.0 L (2.5-4.5) mg/dL AST 71 H (17-59) U/L ALT 207 H (4-49) U/L Total Protein 4.1 L (6.3-8.2) g/dL Albumin 1.8 L (3.5-5.0) g/dL Triglycerides 337 H (<150) mg/dL Procalcitonin (0.02-0.09) ng/mL 10/27/19 10/27/19 10/27/19 Range/Units 05:02 05:21 05:57 RBC (4.30-5.90) m/uL Hgb (13.0-17.5) gm/dL Hct (39.0-53.0) % MCV (80.0-100.0) fL Plt Count (150-450) k/uL ABG pCO2 34 L (35-45) mmHg ABG pO2 80 L (83-108) mmHg Sodium (137-145) mmol/L Potassium (3.5-5.1) mmol/L Chloride (98-107) mmol/L BUN (9-20) mg/dL Creatinine (0.66-1.25) mg/dL Glucose (74-99) mg/dL POC Glucose (mg/dL) 174 H 174 H (75-99) mg/dL Calcium (8.4-10.2) mg/dL Phosphorus (2.5-4.5) mg/dL AST (17-59) U/L ALT (4-49) U/L Total Protein (6.3-8.2) g/dL Albumin (3.5-5.0) g/dL Triglycerides (<150) mg/dL Procalcitonin (0.02-0.09) ng/mL 10/27/19 10/27/19 10/27/19 Range/Units 06:56 08:09 09:19 RBC (4.30-5.90) m/uL Hgb (13.0-17.5) gm/dL Hct (39.0-53.0) % MCV (80.0-100.0) fL Plt Count (150-450) k/uL ABG pCO2 (35-45) mmHg ABG pO2 (83-108) mmHg Sodium (137-145) mmol/L Potassium (3.5-5.1) mmol/L Chloride (98-107) mmol/L BUN (9-20) mg/dL Creatinine (0.66-1.25) mg/dL Glucose (74-99) mg/dL POC Glucose (mg/dL) 180 H 140 H 170 H (75-99) mg/dL Calcium (8.4-10.2) mg/dL Phosphorus (2.5-4.5) mg/dL AST (17-59) U/L ALT (4-49) U/L Total Protein (6.3-8.2) g/dL Albumin (3.5-5.0) g/dL Triglycerides (<150) mg/dL Procalcitonin (0.02-0.09) ng/mL 10/27/19 10/27/19 10/27/19 Range/Units 10:12 11:41 13:13 RBC (4.30-5.90) m/uL Hgb (13.0-17.5) gm/dL Hct (39.0-53.0) % MCV (80.0-100.0) fL Plt Count (150-450) k/uL ABG pCO2 (35-45) mmHg ABG pO2 (83-108) mmHg Sodium (137-145) mmol/L Potassium (3.5-5.1) mmol/L Chloride (98-107) mmol/L BUN (9-20) mg/dL Creatinine (0.66-1.25) mg/dL Glucose (74-99) mg/dL POC Glucose (mg/dL) 177 H 168 H 168 H (75-99) mg/dL Calcium (8.4-10.2) mg/dL Phosphorus (2.5-4.5) mg/dL AST (17-59) U/L ALT (4-49) U/L Total Protein (6.3-8.2) g/dL Albumin (3.5-5.0) g/dL Triglycerides (<150) mg/dL Procalcitonin (0.02-0.09) ng/mL 10/27/19 10/27/19 Range/Units 14:06 15:08 RBC (4.30-5.90) m/uL Hgb (13.0-17.5) gm/dL Hct (39.0-53.0) % MCV (80.0-100.0) fL Plt Count (150-450) k/uL ABG pCO2 (35-45) mmHg ABG pO2 (83-108) mmHg Sodium (137-145) mmol/L Potassium (3.5-5.1) mmol/L Chloride (98-107) mmol/L BUN (9-20) mg/dL Creatinine (0.66-1.25) mg/dL Glucose (74-99) mg/dL POC Glucose (mg/dL) 168 H 168 H (75-99) mg/dL Calcium (8.4-10.2) mg/dL Phosphorus (2.5-4.5) mg/dL AST (17-59) U/L ALT (4-49) U/L Total Protein (6.3-8.2) g/dL Albumin (3.5-5.0) g/dL Triglycerides (<150) mg/dL Procalcitonin (0.02-0.09) ng/mL Microbiology - Last 24 Hours (Table) 10/24/19 19:42 Gram Stain - Final Sputum Sputum Culture - Final Layne albicans 10/23/19 21:45 Blood Culture - Preliminary Blood No Growth after 72 hours 10/23/19 21:30 Blood Culture - Preliminary Blood No Growth after 72 hours 10/21/19 18:20 Blood Culture - Preliminary Blood No Growth after 120 hours 10/25/19 04:45 Urine Culture - Final Urine,Catheterized Assessment and Plan Assessment: Impression: Acute hypoxic respiratory failure secondary to hypovolemic and septic shock. Acute abdominal sepsis, small bowel ileus/obstruction, remains on Zosyn and Flagyl. Acute hyperosmolar nonketotic diabetic syndrome with profound hypovolemia and volume depletion/dehydration. Acute kidney injury secondary to hypovolemia and possible septic shock with acute tubular necrosis. Altered mental status on presentation secondary to hyperosmolar nonketotic state. History of Alzheimer's dementia Type 2 diabetes Pseudohyponatremia on presentation secondary to severe hyperglycemia. Benign essential hypertension Peripheral vessel occlusive disease mostly involving lower extremities. History of 4.6 cm distal abdominal aortic aneurysm and previous iliac stent the graft placement. Acute shock liver secondary to hypotension on presentation. History of ischemic cardiomyopathy and LV dysfunction, ejection fraction of 30%. Severe lactic acidosis on presentation most likely secondary to abdominal sepsis and ischemic bowel. Recommendation: Continue ventilatory support. Continue GI and DVT prophylaxis. Continue insulin. Continue antibiotics/Zosyn and Flagyl. Continue IV fluid at KVO. Continue TPN. Consider thoracentesis if no improvement with the pleural effusions by medical treatment. Continue to monitor liver enzymes. Overall prognosis is extremely poor and guarded. Critical care time is 40 minutes. We'll continue to follow Time with Patient: Greater than 30
[2019-10-27] MEDS: FAT EMULSION 20% 250 ML IV SCH (15:34)
[2019-10-27] MEDS: SODIUM CHLORIDE 0.9% 150 ML with VASOPRESSIN 60 UNIT IV SCH ×4 (15:54→20:09)
[2019-10-27 15:55] LABS: Glucose,Whole Blood 171 mg/dL (75-99)
[2019-10-27 17:01] LABS: Glucose,Whole Blood 136 mg/dL (75-99)
[2019-10-27 17:03] LABS: Glucose,Whole Blood 212 mg/dL (75-99)
[2019-10-27] MEDS: MAGNESIUM SULFATE IV SCH ×6 (17:55)
[2019-10-27] MEDS: [UNRECOGNIZED DRUG - OTHER] IV SCH ×6 (17:55)
[2019-10-27] MEDS: POTASSIUM ACETATE IV SCH ×6 (17:55)
[2019-10-27] MEDS: CALCIUM GLUCONATE IV SCH ×6 (17:55)
[2019-10-27] MEDS: MVI IV SCH ×6 (17:55)
[2019-10-27] MEDS: MIDAZOLAM HCL 50 MG in SODIUM CHLORIDE 0.9% 40 ML IV SCH (17:56)
[2019-10-27 18:04] LABS: Glucose,Whole Blood 229 mg/dL (75-99)
--- NOTE | 2019-10-27 18:14 | P.PN ---
Progress Note - Text Progress Note Date: 10/27/19 Interval history: 79-year-old male with PMH of diabetes mellitus on oral hypoglycemics, con pascual presents the ED for altered mentation. Apparently, patient was visited by his nurse who noted an extremely high blood glucose which prompted his hospital visit. Patient is altered and he is unable to provide any meaningful history. Majority of documentation was obtained from chart review and discussion with his son. Apparently, patient has been confused and disoriented which is progressive ly been worsening over the past 2 weeks. His son reports that the patient fell a week ago and did not seek medical attention. Patient lives with his who is suffering from advanced Alzheimer's dementia and is currently in hospice. According to the son, patient drinks 4 L of soda on a daily basis. Son reports that patient is noncompliant with her diabetic diet. In the ED, vital signs showed a T low of 97.5 Fahrenheit, pulse of 102, tachypnea with respiratory rate of 28, BP of 85/49 and 89% on room air. CBC showed leukocytosis of 11 and MCV of 124.1. ABG showed pH of 7, pCO2 19, bica rbonate of 8. CMP showed sodium of 116, potassium of 5.7, chloride of 74, bicarbonate of 8, BUN 33, creatinine 2.18, glucose greater than 1875. Troponin was 0.881 with EKG showing sinus tachycardia. Urinalysis shows 4+ glucose and trace blood. Acetone was negative. CT brain was negative for hemorrhage but showed slightly hyperdense left MCA compared to right. Chest x-ray showed possible right lower lobe infiltrate. Patient is admitted to ICU for sepsis, troponin elevation and diabetic ketoacidosis. Intubated. Patient developed ischemic hepatitis. Sepsis. today-ICU. drips include IV vasopressin, norepinephrine, midazolam, insulin. Patient is a small bowel movement yesterday and also this morning. Tube feeding is being started. Review of systems cannot be done patient intubated Active Medications Aspirin (Aspirin) 81 mg RECTAL DAILY [facility] Last Admin: 10/27/19 09:36 Dose: 81 mg Documented by: Chlorhexidine Gluconate (Peridex) 15 ml MUCOUS MEM BID [facility] Last Admin: 10/27/19 08:22 Dose: 15 ml Documented by: Heparin Sodium (Porcine) (Heparin) 5,000 unit SQ Q8HR [facility] Last Admin: 10/27/19 16:43 Dose: 5,000 unit Documented by: Hydromorphone HCl (Dilaudid) 1 mg IVP Q4HR PRN PRN Reason: Pain Last Admin: 10/27/19 06:16 Dose: 1 mg Documented by: Piperacillin Sod/Tazobactam (Sod 3.375 gm/ Sodium Chloride) 100 mls @ 25 mls/hr IVPB Q8H [facility] Last Admin: 10/27/19 12:23 Dose: 25 mls/hr Documented by: Midazolam HCl 50 mg/ Sodium (Chloride) 50 mls @ 1 mls/hr IV .Q24H [facility]; Protocol Last Admin: 10/27/19 17:56 Dose: 2 mg/hr, 2 mls/hr Documented by: Norepinephrine Bitartrate 32 (mg/ Sodium Chloride) 250 mls @ 14.805 mls/hr IV .[id number] [facility]; Protocol Last Titration: 10/27/19 15:00 Dose: 0.12 mcg/kg/min, 4.23 mls/hr Documented by: Insulin Human Regular 100 unit (/ Sodium Chloride) 101 mls @ 0 mls/hr IV .Q0M [facility]; Protocol Last Titration: 10/27/19 18:04 Dose: 7 unit/hr, 7.07 mls/hr Documented by: Vasopressin 60 unit/ Sodium (Chloride) 153 mls @ 4.59 mls/hr IV .Q24H [facility] Last Admin: 10/27/19 15:54 Dose: Not Given Documented by: Metronidazole 500 mg/ IV (Solution) 100 mls @ 100 mls/hr IVPB Q8HR [facility] Last Admin: 10/27/19 15:34 Dose: 100 mls/hr Documented by: Sodium Chloride (Saline 0.9%) 500 mls @ 20 mls/hr IV .Q24H [facility] Last Admin: 10/27/19 11:47 Dose: 20 mls/hr Documented by: Potassium Acetate 20 meq/Magnesium Sulfate 1 gm/Calcium Gluconate 1 gm/Parenteral Vitamin Supplement 10 ml/ Chromium/Copper/Manganese/Seleni/Zn 1 ml/Amino Acids/Dextrose 1,033 mls @ 105 mls/hr IV .BY DURATION [facility] Last Admin: 10/27/19 17:55 Dose: 105 mls/hr Documented by: Potassium Acetate 20 meq/Magnesium Sulfate 1 gm/Calcium Gluconate 1 gm/ Amino Acids/Dextrose 1,022 mls @ 105 mls/hr IV .BY DURATION [facility] Fat Emulsion Intravenous (Lipids 20%) 250 mls @ 20.833 mls/hr IV DAILY@1500 [facility] Last Admin: 10/27/19 15:34 Dose: 20.833 mls/hr Documented by: Dextrose/Water (Dextrose 5%-Water Iv Soln) 1,000 mls @ 25 mls/hr IV .Q24H [facility] Last Admin: 10/27/19 11:47 Dose: 50 mls/hr Documented by: Miscellaneous Information (Pneumonia Protocol Utilized) 1 each PO ONCE PRN PRN Reason: Per Protocol Miscellaneous Information (Magnesium Per Protocol) 1 each MISCELLANE DAILY PRN; Protocol PRN Reason: Per Protocol Miscellaneous Information (Potassium Per Protocol) 1 each MISCELLANE DAILY PRN; Protocol PRN Reason: Per Protocol Miscellaneous Information (Phosphorus Per Protocol) 1 each MISCELLANE DAILY PRN; Protocol PRN Reason: Per Protocol Naloxone HCl (Narcan) 0.2 mg IV Q2M PRN PRN Reason: Opioid Reversal Nitroglycerin (Nitrostat) 0.4 mg SUBLINGUAL Q5M PRN PRN Reason: Chest Pain Pantoprazole Sodium (Protonix) 40 mg IV DAILY [facility] Last Admin: 10/27/19 08:22 Dose: 40 mg Documented by: On examination: VITAL SIGNS: T-max 100.5, 80, 22, 127/50, 97% on the ventilator GENERAL APPEARANCE: laying in bed, sedated, intubated. HEENT: Normal external appearance of nose and ear. Oral cavity -endotracheal tube, NG tube to suction EYES: Pupils equal. Conjunctiva normal. NECK: JVD unable to assess. Mass not palpable. RESPIRATORY: Respiratory effort increased. Lungs -decreased breath sounds CARDIOVASCULAR: First and second sounds normal. No edema. ABDOMEN: Soft. Liver and spleen not palpable. No tenderness. No mass palpable. PSYCHIATRY: unable to assess, patient sedated INVESTIGATIONS, reviewed in the clinical context: White count 10.1 hemoglobin 10.4 potassium 3.7 bun 42 creatinine 1.54 Previous testing: White count 11 hemoglobin 13.7 platelets 383 Sodium 116, bicarb 8, bun 33, creatinine 2.18 glucose 1875 troponin I 0.88 1 Rusty-19 PCR-not detected computed tomography scan of the brain without contrast-no acute degenerative changes Ultrasound kidney-limited exam 2-D echocardiogram-EF 30-35%, anteroseptal apical hypokinesia AST 3453, ALT 1264, computed tomography scan of the abdomen and pelvis without contrast-dilated multiple loops of small bowel some free fluid in the paracolic gutter bilateral lower lobe pulmonary infiltrates, fusiform 4.4 cm lower abdominal aortic aneurysm with aortoiliac endograft multiple diverticula of the sigmoid colon. Mild wall thickening of the ascending colon. Blood cultures from October 20-negative Abdominal x-ray-October 25--contrast has passed through to thecolon Assessment: -acute nonketotic hyperosmolar diabetes with severe hyperglycemia, POA -Acute small bowel obstruction, and distal jejunal obstruction-radiologically improved, NG tube suction discontinued.-2 feeding started -Acute hypoxic respiratory failure requiring mechanical ventilator support-slow to respond -Acute metabolic encephalopathy from above-slow to respond -Alzheimer's dementia -Pseudohyponatremia from severe hyperglycemia -4.4 cm distal abdominal aortic aneurysm with the endoluminal stent graft -Peripheral arterial disease -Acute shock liver secondary to hypotensive improving -Chronic congestive heart failure from systolic dysfunction EF 30-35% -Sepsis with septic shock, possible community acquired pneumonia -Metabolic encephalopathy likely due to the above -Non-ST elevation GA likely type II from demand ischemia, POA -Acute kidney injury likely ATN -Possibly chronic kidney disease -essential hypertension -Pneumonia suspect gram-negative organism Plan: -insulin drip, IV vasopressin, norepinephrine, midazolam,.; IV Flagyl and IV Zosyn. On TPN. 2 feeding being started. Prognosis guarded.
[2019-10-27 19:08] LABS: Glucose,Whole Blood 247 mg/dL (75-99)
[2019-10-27 20:00] LABS: Glucose,Whole Blood 283 mg/dL (75-99)
--- NOTE | 2019-10-27 20:27 | PN ---
PROGRESS NOTE Patient is seen for followup for acute kidney injury. He currently remains on the vent. FiO2 is at 40%. Patient did have a bowel movement. His urine output is adequate. Serum creatinine continues to improve. He is maintained on TPN. Patient was started on D5W for hypernatremia and sodium has improved to 147. On examination today, patient remains on the vent. Blood pressure 123/45, heart rate 87 per minute. He has low-grade temperature at 99.8. He had a temperature of 100.5 earlier this morning. EXAMINATION OF THE HEART: Heart sounds are heard. EXAMINATION OF LUNGS: Bilateral breath sounds are heard. ABDOMEN: Soft, non-tender. Examination of lower extremities shows edema 1+ bilaterally. [employer] exam cannot be performed. Labs show sodium 147, potassium 3.7, chloride 118, BUN 42, creatinine 1.54. ASSESSMENT: 1. Acute kidney injury, acute tubular necrosis, currently improving. 2. Hypernatremia associated with free water deficit, now improved, maintained on D5W at 50 mL/hour, which we can continue for now. 3. Bowel obstruction from ileus, currently with a bowel movement. 4. Diabetic ketoacidosis initially, status post insulin drip. 5. Possible chronic kidney disease; creatinine baseline 1.2 to 1.5 in July of 2018. 6. Hyperkalemia on initial admission, currently improved. 7. Acute hypoxic respiratory failure, maintained on the vent. PLAN: Continue D5W. Repeat labs in a.m. MMSOULEYMANEL / GRICELN: [id number] /
[2019-10-27 20:59] LABS: Glucose,Whole Blood 310 mg/dL (75-99)
[2019-10-27 22:04] LABS: Glucose,Whole Blood 314 mg/dL (75-99)
[2019-10-27 22:54] LABS: Glucose,Whole Blood 326 mg/dL (75-99)
[2019-10-27 23:52] LABS: Glucose,Whole Blood 315 mg/dL (75-99)
[2019-10-28] MEDS: HYDROmorphone 1 MG/ML 1 ML SYRINGE IVP PRN ×3 (00:15→21:52)
[2019-10-28 00:56] LABS: Glucose,Whole Blood 299 mg/dL (75-99)
[2019-10-28 01:53] LABS: Glucose,Whole Blood 295 mg/dL (75-99)
[2019-10-28 02:57] LABS: Glucose,Whole Blood 295 mg/dL (75-99)
[2019-10-28] MEDS: CALCIUM GLUCONATE IV SCH ×12 (03:53→15:36)
[2019-10-28] MEDS: MVI IV SCH ×12 (03:53→15:36)
[2019-10-28] MEDS: POTASSIUM ACETATE IV SCH ×12 (03:53→15:36)
[2019-10-28] MEDS: MAGNESIUM SULFATE IV SCH ×12 (03:53→15:36)
[2019-10-28] MEDS: [UNRECOGNIZED DRUG - OTHER] IV SCH ×12 (03:53→15:36)
[2019-10-28] MEDS: INSULIN REGULAR 100 UNIT in SODIUM CHLORIDE 0.9% 100 ML IV SCH ×3 (03:54→13:41)
[2019-10-28] MEDS: PIPERACILLIN-TAZOBACTAM 3.375 GM in SODIUM CHLORIDE 0.9% 100 ML IVPB SCH ×3 (03:57→21:47)
[2019-10-28 04:04] LABS: Glucose,Whole Blood 290 mg/dL (75-99)
[2019-10-28 04:12] LABS: HCT 29.9 % (39.0-53.0); HGB 9.5 gm/dL (13.0-17.5); Hypochromasia Marked; MCH 33.2 pg (25.0-35.0); MCHC 31.7 g/dL (31.0-37.0); MCV 104.9 fL (80.0-100.0); Macrocytosis Moderate; Mean Platelet Volume 10.6; RBC 2.85 m/uL (4.30-5.90); RDW 14.1 % (11.5-15.5); WBC 11.8 k/uL (3.8-10.6)
[2019-10-28 04:35] LABS: Albumin 1.7 g/dL (3.5-5.0); Calcium 7.2 mg/dL (8.4-10.2); Phosphorus 1.6 mg/dL (2.5-4.5); Potassium 3.4 mmol/L (3.5-5.1); Total Bilirubin 0.7 mg/dL (0.2-1.3); Total Protein 3.9 g/dL (6.3-8.2)
[2019-10-28] MEDS ORDERED: Potassium Replacement Protocol 1 EACH MISC MISCELLANE PRN (04:45)
[2019-10-28 04:58] LABS: Glucose,Whole Blood 296 mg/dL (75-99)
[2019-10-28] MEDS: POTASSIUM BICARBONATE/CIT AC 20 MEQ TABLET.EFF NG-TUBE SCH ×2 (04:59→06:08)
[2019-10-28] MEDS: MAGNESIUM SULFATE-D5W PMX 1 GM in DEXTROSE/WATER 1 100ML.BAG IVPB SCH ×2 (05:00→06:08)
[2019-10-28 05:01] LABS: Platelet Count 144 k/uL (150-450)
[2019-10-28 06:05] LABS: Glucose,Whole Blood 283 mg/dL (75-99)
[2019-10-28] MEDS: DEXTROSE 5% IN WATER 1,000 ML IV SCH (06:14)
--- NOTE | 2019-10-28 06:20 | XR ---
EXAMINATION TYPE: XR chest 1V portable DATE OF EXAM: 10/28/2019 CLINICAL HISTORY: Difficulty breathing progress study. TECHNIQUE: Single AP portable semiupright view of the chest is obtained. COMPARISON: Chest x-ray from one day earlier and older studies. CT July 27, 2018. FINDINGS: Stable-appearing endotracheal and orogastric tubes along with left subclavian central veno us catheter. Persistent slight elevated right hemidiaphragm and bibasilar opacities. Overlying device left midlung region redemonstrated causing central density and surrounding lucency in region of the left posterior seventh rib. Osseous structures remain demineralized cardiac silhouette size remains w ithin normal limits. Some persistent right-sided rotation redemonstrated. IMPRESSION: Overall stable findings, low lung volumes with bibasilar acute infiltrate and/or atelec tasis and likely tiny bilateral pleural effusions are all redemonstrated.
[2019-10-28 06:53] LABS: Glucose,Whole Blood 287 mg/dL (75-99)
[2019-10-28 07:34] LABS: ABG Base Excess -3.3 mmol/L; ABG HCO3 21 mmol/L (21-25); ABG Oxygen Saturation 96.2 % (94-97); ABG PCO2 31 mmHg (35-45); ABG PH 7.44 (7.35-7.45); ABG PO2 74 mmHg (83-108); ABG TCO2 22 mmol/L (19-24); Allen Test Performed? Yes
[2019-10-28] MEDS: metroNIDAZOLE-NS PMX 500 MG in SALINE 1 100ML.BAG IVPB SCH ×2 (07:52→15:38)
[2019-10-28] MEDS: HEPARIN SODIUM,PORCINE 5,000 UNIT/ML 1 ML VIAL SQ SCH ×2 (07:52→15:39)
[2019-10-28 07:56] LABS: Glucose,Whole Blood 233 mg/dL (75-99)
[2019-10-28] MEDS: PANTOPRAZOLE 40 MG/10 ML VIAL IV SCH (08:41)
[2019-10-28] MEDS: SODIUM CHLORIDE 0.9% 500 ML 500 ML IV SCH (08:42)
[2019-10-28] MEDS: CHLORHEXIDINE GLUCONATE 15 ML CUP MUCOUS MEM SCH ×2 (08:42→21:47)
[2019-10-28 09:06] LABS: Glucose,Whole Blood 244 mg/dL (75-99)
[2019-10-28] MEDS ORDERED: ASPIRIN 81 MG PO STA (09:11)
--- NOTE | 2019-10-28 10:30 | P.PN ---
<Jodie Garcia Melvin - Last Filed: 10/28/19 10:27> Subjective Progress Note Date: 10/28/19 CHIEF COMPLAINT: Sepsis HISTORY OF PRESENT ILLNESS: Patient examined in the intensive care. Patient remains sedated on mechanical ventilation. Nursing reports patient is having bowel movements. Tube feedings have been started. Currently infusing at 20cc/hr. PHYSICAL EXAM: VITAL SIGNS: Reviewed GENERAL: Well-developed in no acute distress. HEENT: No sclera icterus. Extraocular movements grossly intact. Moist buccal mucosa. Head is atraumatic, normocephalic. No nasal drainage. NECK: Supple without lymphadenopathy. CHEST: Non-labored respirations and equal bilateral excursions. CARDIOVASCULAR: Regular rate with regular rhythm. Palpable 2+ radial pulses. ABDOMEN: Soft. Nondistended. Nontender. NG tube noted with tube feeding infusing. MUSCULOSKELETAL: No clubbing or cyanosis. NEUROLOGIC: Sedated on mechanical ventilation PSYCH: Sedated on mechanical ventilation SKIN: Well perfused. Good skin turgor. ASSESSMENT: 1. Abnormal computed tomography scan with small bowel distention, resolving PLAN: Continue tube feedings as tolerated. Advance per dietary recommendations. Nurse practitioner note has been reviewed by physician. Signing provider agrees with the documented findings, assessment, and plan of care. Objective - Vital Signs Vital signs: Vital Signs Temp 101.3 F H 10/28/19 08:00 Pulse 105 H 10/28/19 09:30 Resp 35 H 10/28/19 09:30 BP 101/52 10/28/19 09:30 Pulse Ox 95 10/28/19 09:30 Intake & Output 10/27/19 10/28/19 10/28/19 18:59 06:59 18:59 Intake Total 0104.870 0468.095 122.267 Output Total 785 1400 150 Balance 1933.237 4096.095 -27.733 Weight 81.7 kg 84 kg Intake: IV 1071.59 2461 41 .9 Sodium Chloride @ 10ml 120 10 /hr Dextrose 5% in Water 1, 550 325 25 000 ml @ 25 mls/hr IV . Q24H [facility] Rx#:[id number] Fat Emulsion 20% 250 ml @ 168 20.833 mls/hr IV DAILY@ 1500 [facility] Rx#:[id number] Magnesium Sulfate-D5w Pmx 200 1 gm In Dextrose/Water 1 100ml.bag @ 100 mls/hr IVPB Q1H [facility] Rx#: [id number] Piperacillin-Tazobactam 3 125 200 .375 gm In Sodium Chloride 0.9% 100 ml @ 25 mls/hr IVPB Q8H [facility] Rx#: [id number] Potassium Acetate 20 meq 1260 Magnesium Sulfate gm 1 gm Calcium Gluconate 1 gm In Amino Acid 5%-D15w 1, 000 ml @ 105 mls/hr IV . BY DURATION [facility] Rx#: [id number] Potassium Chloride 20 meq 100 In Water For Injection 1 100ml.bag @ 50 mls/hr IVPB Q2H [facility] Rx#: [id number] Pressure Bag 72 78 6 Sodium Chloride 0.9% 150 4.59 ml @ 0.03 UNITS/MIN 4.59 mls/hr IV .Q24H [facility] with Vasopressin 60 unit Rx#: [id number] Sodium Chloride 0.9% 500 120 10 ml 500 ml @ 20 mls/hr IV .Q24H [facility] Rx#:[id number] metroNIDAZOLE-NS PMX 500 100 100 mg In Saline 1 100ml.bag @ 100 mls/hr IVPB Q8HR [facility] Rx#:[id number] Intake, IV Titration 890.078 325.095 61.267 Amount Fat Emulsion 20% 250 ml @ 21 21 20.833 mls/hr IV DAILY@ 1500 [facility] Rx#:[id number] Insulin Regular 100 unit 64.084 179.082 30.334 In Sodium Chloride 0.9% 100 ml @ Per Protocol IV .Q0M [facility] Rx#:[id number] Midazolam HCl 50 mg In 46.5 30.933 Sodium Chloride 0.9% 40 ml @ 1 MG/HR 1 mls/hr IV .Q24H [facility] Rx#:[id number] Norepinephrine 32 mg In 103.494 20.013 Sodium Chloride 0.9% 218 ml @ 0.42 MCG/KG/MIN 14. 805 mls/hr IV .[id number] [facility] Rx#:[id number] Potassium Acetate 20 meq 105 Magnesium Sulfate gm 1 gm Calcium Gluconate 1 gm Mvi, Adult No.4 with Vit K 10 ml Trace (Conc-1Ml/ Dose) 1 ml In Amino Acid 5%-D15w 1,000 ml @ 105 mls/hr IV .BY DURATION [facility] Rx#:[id number] Potassium Acetate 30 meq 405 Magnesium Sulfate gm 1 gm Calcium Gluconate 2 gm Mvi, Adult No.4 with Vit K 10 ml Trace (Conc-1Ml/ Dose) 1 ml In Amino Acid 5%-D15w 1,000 ml @ 30 mls /hr IV .Q24H [facility] Rx#: [id number] Potassium Phosphate 10 150 mmol In Sodium Chloride 0 .9% 100 ml @ 50 mls/hr IV Q2H [facility] Rx#:[id number] metroNIDAZOLE-NS PMX 500 100 mg In Saline 1 100ml.bag @ 100 mls/hr IVPB Q8HR [facility] Rx#:[id number] Tube Feeding 180 20 Other 90 Output: Urine 785 1400 150 Other: Voiding Method Indwelling Catheter Indwelling Catheter # Bowel Movements 1 ABP, PAP, CO, CI - Last Documented Arterial Blood Pressure 147/49 - Labs CBC & Chem 7: 10/28/19 04:00 10/28/19 04:00 Labs: Abnormal Lab Results - Last 24 Hours (Table) 10/26/19 10/27/19 10/27/19 Range/Units 06:05 11:41 13:13 WBC (3.8-10.6) k/uL RBC (4.30-5.90) m/uL Hgb (13.0-17.5) gm/dL Hct (39.0-53.0) % MCV (80.0-100.0) fL Plt Count (150-450) k/uL ABG pCO2 (35-45) mmHg ABG pO2 (83-108) mmHg Potassium (3.5-5.1) mmol/L Chloride (98-107) mmol/L Carbon Dioxide (22-30) mmol/L BUN (9-20) mg/dL Creatinine (0.66-1.25) mg/dL Glucose (74-99) mg/dL POC Glucose (mg/dL) 168 H 168 H (75-99) mg/dL Calcium (8.4-10.2) mg/dL Phosphorus (2.5-4.5) mg/dL ALT (4-49) U/L Total Protein (6.3-8.2) g/dL Albumin (3.5-5.0) g/dL Procalcitonin 8.54 H (0.02-0.09) ng/mL 10/27/19 10/27/19 10/27/19 Range/Units 14:06 15:08 15:52 WBC (3.8-10.6) k/uL RBC (4.30-5.90) m/uL Hgb (13.0-17.5) gm/dL Hct (39.0-53.0) % MCV (80.0-100.0) fL Plt Count (150-450) k/uL ABG pCO2 (35-45) mmHg ABG pO2 (83-108) mmHg Potassium (3.5-5.1) mmol/L Chloride (98-107) mmol/L Carbon Dioxide (22-30) mmol/L BUN (9-20) mg/dL Creatinine (0.66-1.25) mg/dL Glucose (74-99) mg/dL POC Glucose (mg/dL) 168 H 168 H 171 H (75-99) mg/dL Calcium (8.4-10.2) mg/dL Phosphorus (2.5-4.5) mg/dL ALT (4-49) U/L Total Protein (6.3-8.2) g/dL Albumin (3.5-5.0) g/dL Procalcitonin (0.02-0.09) ng/mL 10/27/19 10/27/19 10/27/19 Range/Units 16:59 17:01 18:03 WBC (3.8-10.6) k/uL RBC (4.30-5.90) m/uL Hgb (13.0-17.5) gm/dL Hct (39.0-53.0) % MCV (80.0-100.0) fL Plt Count (150-450) k/uL ABG pCO2 (35-45) mmHg ABG pO2 (83-108) mmHg Potassium (3.5-5.1) mmol/L Chloride (98-107) mmol/L Carbon Dioxide (22-30) mmol/L BUN (9-20) mg/dL Creatinine (0.66-1.25) mg/dL Glucose (74-99) mg/dL POC Glucose (mg/dL) 136 H 212 H 229 H (75-99) mg/dL Calcium (8.4-10.2) mg/dL Phosphorus (2.5-4.5) mg/dL ALT (4-49) U/L Total Protein (6.3-8.2) g/dL Albumin (3.5-5.0) g/dL Procalcitonin (0.02-0.09) ng/mL 10/27/19 10/27/19 10/27/19 Range/Units 19:06 19:59 20:57 WBC (3.8-10.6) k/uL RBC (4.30-5.90) m/uL Hgb (13.0-17.5) gm/dL Hct (39.0-53.0) % MCV (80.0-100.0) fL Plt Count (150-450) k/uL ABG pCO2 (35-45) mmHg ABG pO2 (83-108) mmHg Potassium (3.5-5.1) mmol/L Chloride (98-107) mmol/L Carbon Dioxide (22-30) mmol/L BUN (9-20) mg/dL Creatinine (0.66-1.25) mg/dL Glucose (74-99) mg/dL POC Glucose (mg/dL) 247 H 283 H 310 H (75-99) mg/dL Calcium (8.4-10.2) mg/dL Phosphorus (2.5-4.5) mg/dL ALT (4-49) U/L Total Protein (6.3-8.2) g/dL Albumin (3.5-5.0) g/dL Procalcitonin (0.02-0.09) ng/mL 10/27/19 10/27/19 10/27/19 Range/Units 22:02 22:53 23:50 WBC (3.8-10.6) k/uL RBC (4.30-5.90) m/uL Hgb (13.0-17.5) gm/dL Hct (39.0-53.0) % MCV (80.0-100.0) fL Plt Count (150-450) k/uL ABG pCO2 (35-45) mmHg ABG pO2 (83-108) mmHg Potassium (3.5-5.1) mmol/L Chloride (98-107) mmol/L Carbon Dioxide (22-30) mmol/L BUN (9-20) mg/dL Creatinine (0.66-1.25) mg/dL Glucose (74-99) mg/dL POC Glucose (mg/dL) 314 H 326 H 315 H (75-99) mg/dL Calcium (8.4-10.2) mg/dL Phosphorus (2.5-4.5) mg/dL ALT (4-49) U/L Total Protein (6.3-8.2) g/dL Albumin (3.5-5.0) g/dL Procalcitonin (0.02-0.09) ng/mL 10/28/19 10/28/19 10/28/19 Range/Units 00:54 01:52 02:55 WBC (3.8-10.6) k/uL RBC (4.30-5.90) m/uL Hgb (13.0-17.5) gm/dL Hct (39.0-53.0) % MCV (80.0-100.0) fL Plt Count (150-450) k/uL ABG pCO2 (35-45) mmHg ABG pO2 (83-108) mmHg Potassium (3.5-5.1) mmol/L Chloride (98-107) mmol/L Carbon Dioxide (22-30) mmol/L BUN (9-20) mg/dL Creatinine (0.66-1.25) mg/dL Glucose (74-99) mg/dL POC Glucose (mg/dL) 299 H 295 H 295 H (75-99) mg/dL Calcium (8.4-10.2) mg/dL Phosphorus (2.5-4.5) mg/dL ALT (4-49) U/L Total Protein (6.3-8.2) g/dL Albumin (3.5-5.0) g/dL Procalcitonin (0.02-0.09) ng/mL 10/28/19 10/28/19 10/28/19 Range/Units 04:00 04:00 04:02 WBC 11.8 H (3.8-10.6) k/uL RBC 2.85 L (4.30-5.90) m/uL Hgb 9.5 L (13.0-17.5) gm/dL Hct 29.9 L (39.0-53.0) % MCV 104.9 H (80.0-100.0) fL Plt Count 144 L D (150-450) k/uL ABG pCO2 (35-45) mmHg ABG pO2 (83-108) mmHg Potassium 3.4 L (3.5-5.1) mmol/L Chloride 117 H (98-107) mmol/L Carbon Dioxide 21 L (22-30) mmol/L BUN 43 H (9-20) mg/dL Creatinine 1.38 H (0.66-1.25) mg/dL Glucose 259 H (74-99) mg/dL POC Glucose (mg/dL) 290 H (75-99) mg/dL Calcium 7.2 L (8.4-10.2) mg/dL Phosphorus 1.6 L (2.5-4.5) mg/dL ALT 107 H (4-49) U/L Total Protein 3.9 L (6.3-8.2) g/dL Albumin 1.7 L (3.5-5.0) g/dL Procalcitonin (0.02-0.09) ng/mL 10/28/19 10/28/19 10/28/19 Range/Units 04:56 06:03 06:51 WBC (3.8-10.6) k/uL RBC (4.30-5.90) m/uL Hgb (13.0-17.5) gm/dL Hct (39.0-53.0) % MCV (80.0-100.0) fL Plt Count (150-450) k/uL ABG pCO2 (35-45) mmHg ABG pO2 (83-108) mmHg Potassium (3.5-5.1) mmol/L Chloride (98-107) mmol/L Carbon Dioxide (22-30) mmol/L BUN (9-20) mg/dL Creatinine (0.66-1.25) mg/dL Glucose (74-99) mg/dL POC Glucose (mg/dL) 296 H 283 H 287 H (75-99) mg/dL Calcium (8.4-10.2) mg/dL Phosphorus (2.5-4.5) mg/dL ALT (4-49) U/L Total Protein (6.3-8.2) g/dL Albumin (3.5-5.0) g/dL Procalcitonin (0.02-0.09) ng/mL 10/28/19 10/28/19 10/28/19 Range/Units 07:28 07:55 09:04 WBC (3.8-10.6) k/uL RBC (4.30-5.90) m/uL Hgb (13.0-17.5) gm/dL Hct (39.0-53.0) % MCV (80.0-100.0) fL Plt Count (150-450) k/uL ABG pCO2 31 L (35-45) mmHg ABG pO2 74 L (83-108) mmHg Potassium (3.5-5.1) mmol/L Chloride (98-107) mmol/L Carbon Dioxide (22-30) mmol/L BUN (9-20) mg/dL Creatinine (0.66-1.25) mg/dL Glucose (74-99) mg/dL POC Glucose (mg/dL) 233 H 244 H (75-99) mg/dL Calcium (8.4-10.2) mg/dL Phosphorus (2.5-4.5) mg/dL ALT (4-49) U/L Total Protein (6.3-8.2) g/dL Albumin (3.5-5.0) g/dL Procalcitonin (0.02-0.09) ng/mL Microbiology - Last 24 Hours (Table) 10/23/19 21:45 Blood Culture - Preliminary Blood No Growth after 96 hours 10/23/19 21:30 Blood Culture - Preliminary Blood No Growth after 96 hours 10/21/19 18:20 Blood Culture - Final Blood No Growth after 144 hours 10/24/19 19:42 Gram Stain - Final Sputum Sputum Culture - Final Layne albicans <Bess Quintero N - Last Filed: 10/31/19 12:59> Subjective Agree with above. Overall patient presented with small bowel obstruction that is now resolving. Patient had presented with altered mental status. Imaging studies initially showed possible small bowel obstruction that resolved. Will likely need further evaluation of mental status. Overall he has clinical improvement regarding gastrointestinal systems. Recommend continued intensive care unit assessment. Overall, prognosis guarded Objective - Vital Signs Vital signs: Vital Signs Temp 98.1 F 10/31/19 12:00 Pulse 92 10/31/19 12:00 Resp 26 H 10/31/19 12:00 BP 123/57 05/22/20 12:00 Pulse Ox 98 10/31/19 12:00 Intake & Output 10/30/19 10/31/19 10/31/19 18:59 06:59 18:59 Intake Total 2663.725 3037.237 948 Output Total 2170 1850 550 Balance 557.871 2701.237 398 Weight 87.4 kg Intake: IV 269 256 178 .9 Sodium Chloride @ 10ml 130 120 60 /hr Piperacillin-Tazobactam 3 100 100 100 .375 gm In Sodium Chloride 0.9% 100 ml @ 25 mls/hr IVPB Q8H [facility] Rx#: [id number] Pressure Bag 39 36 18 Intake, IV Titration 414.725 431.237 150 Amount Amiodarone 300 mg In 250 250 Dextrose 5% in Water 250 ml @ 0.5 MG/MIN 25 mls/hr IV .Q10H [facility] Rx#: [id number] Insulin Regular 100 unit 64.725 81.237 In Sodium Chloride 0.9% 100 ml @ Per Protocol IV .Q0M [facility] Rx#:[id number] metroNIDAZOLE-NS PMX 500 100 100 150 mg In Saline 1 100ml.bag @ 100 mls/hr IVPB Q8HR [facility] Rx#:[id number] Tube Feeding 980 1050 420 Other 1000 1300 200 Output: Urine 2170 850 550 Stool 1000 Other: Voiding Method Indwelling Catheter Indwelling Catheter Indwelling Catheter # Voids 1 1 ABP, PAP, CO, CI - Last Documented Arterial Blood Pressure 156/57 - Labs CBC & Chem 7: 10/31/19 04:24 10/31/19 04:24 Labs: Abnormal Lab Results - Last 24 Hours (Table) 10/30/19 10/30/19 10/30/19 Range/Units 13:07 14:18 15:13 WBC (3.8-10.6) k/uL RBC (4.30-5.90) m/uL Hgb (13.0-17.5) gm/dL Hct (39.0-53.0) % MCV (80.0-100.0) fL Plt Count (150-450) k/uL Neutrophils # (Manual) (1.3-7.7) k/uL Lymphocytes # (Manual) (1.0-4.8) k/uL ABG pCO2 (35-45) mmHg ABG HCO3 (21-25) mmol/L ABG O2 Saturation (94-97) % Sodium (137-145) mmol/L Potassium (3.5-5.1) mmol/L Chloride (98-107) mmol/L Carbon Dioxide (22-30) mmol/L BUN (9-20) mg/dL Glucose (74-99) mg/dL POC Glucose (mg/dL) 208 H 194 H 129 H (75-99) mg/dL Calcium (8.4-10.2) mg/dL 10/30/19 10/30/19 10/30/19 Range/Units 16:10 16:58 17:57 WBC (3.8-10.6) k/uL RBC (4.30-5.90) m/uL Hgb (13.0-17.5) gm/dL Hct (39.0-53.0) % MCV (80.0-100.0) fL Plt Count (150-450) k/uL Neutrophils # (Manual) (1.3-7.7) k/uL Lymphocytes # (Manual) (1.0-4.8) k/uL ABG pCO2 (35-45) mmHg ABG HCO3 (21-25) mmol/L ABG O2 Saturation (94-97) % Sodium (137-145) mmol/L Potassium (3.5-5.1) mmol/L Chloride (98-107) mmol/L Carbon Dioxide (22-30) mmol/L BUN (9-20) mg/dL Glucose (74-99) mg/dL POC Glucose (mg/dL) 203 H 196 H 194 H (75-99) mg/dL Calcium (8.4-10.2) mg/dL 10/30/19 10/30/19 10/30/19 Range/Units 18:58 20:09 21:06 WBC (3.8-10.6) k/uL RBC (4.30-5.90) m/uL Hgb (13.0-17.5) gm/dL Hct (39.0-53.0) % MCV (80.0-100.0) fL Plt Count (150-450) k/uL Neutrophils # (Manual) (1.3-7.7) k/uL Lymphocytes # (Manual) (1.0-4.8) k/uL ABG pCO2 (35-45) mmHg ABG HCO3 (21-25) mmol/L ABG O2 Saturation (94-97) % Sodium (137-145) mmol/L Potassium (3.5-5.1) mmol/L Chloride (98-107) mmol/L Carbon Dioxide (22-30) mmol/L BUN (9-20) mg/dL Glucose (74-99) mg/dL POC Glucose (mg/dL) 190 H 201 H 185 H (75-99) mg/dL Calcium (8.4-10.2) mg/dL 10/30/19 10/30/19 10/31/19 Range/Units 21:57 22:59 00:06 WBC (3.8-10.6) k/uL RBC (4.30-5.90) m/uL Hgb (13.0-17.5) gm/dL Hct (39.0-53.0) % MCV (80.0-100.0) fL Plt Count (150-450) k/uL Neutrophils # (Manual) (1.3-7.7) k/uL Lymphocytes # (Manual) (1.0-4.8) k/uL ABG pCO2 (35-45) mmHg ABG HCO3 (21-25) mmol/L ABG O2 Saturation (94-97) % Sodium (137-145) mmol/L Potassium (3.5-5.1) mmol/L Chloride (98-107) mmol/L Carbon Dioxide (22-30) mmol/L BUN (9-20) mg/dL Glucose (74-99) mg/dL POC Glucose (mg/dL) 139 H 144 H 148 H (75-99) mg/dL Calcium (8.4-10.2) mg/dL 10/31/19 10/31/19 10/31/19 Range/Units 01:20 02:08 03:04 WBC (3.8-10.6) k/uL RBC (4.30-5.90) m/uL Hgb (13.0-17.5) gm/dL Hct (39.0-53.0) % MCV (80.0-100.0) fL Plt Count (150-450) k/uL Neutrophils # (Manual) (1.3-7.7) k/uL Lymphocytes # (Manual) (1.0-4.8) k/uL ABG pCO2 (35-45) mmHg ABG HCO3 (21-25) mmol/L ABG O2 Saturation (94-97) % Sodium (137-145) mmol/L Potassium (3.5-5.1) mmol/L Chloride (98-107) mmol/L Carbon Dioxide (22-30) mmol/L BUN (9-20) mg/dL Glucose (74-99) mg/dL POC Glucose (mg/dL) 145 H 155 H 155 H (75-99) mg/dL Calcium (8.4-10.2) mg/dL 10/31/19 10/31/19 10/31/19 Range/Units 03:55 04:24 04:24 WBC 14.4 H (3.8-10.6) k/uL RBC 2.98 L (4.30-5.90) m/uL Hgb 9.8 L (13.0-17.5) gm/dL Hct 30.8 L (39.0-53.0) % MCV 103.5 H (80.0-100.0) fL Plt Count 467 H (150-450) k/uL Neutrophils # (Manual) 12.80 H (1.3-7.7) k/uL Lymphocytes # (Manual) 0.72 L (1.0-4.8) k/uL ABG pCO2 (35-45) mmHg ABG HCO3 (21-25) mmol/L ABG O2 Saturation (94-97) % Sodium 146 H (137-145) mmol/L Potassium 3.3 L (3.5-5.1) mmol/L Chloride 119 H (98-107) mmol/L Carbon Dioxide 21 L (22-30) mmol/L BUN 35 H (9-20) mg/dL Glucose 165 H (74-99) mg/dL POC Glucose (mg/dL) 149 H (75-99) mg/dL Calcium 7.3 L (8.4-10.2) mg/dL 10/31/19 10/31/19 10/31/19 Range/Units 04:57 06:10 06:55 WBC (3.8-10.6) k/uL RBC (4.30-5.90) m/uL Hgb (13.0-17.5) gm/dL Hct (39.0-53.0) % MCV (80.0-100.0) fL Plt Count (150-450) k/uL Neutrophils # (Manual) (1.3-7.7) k/uL Lymphocytes # (Manual) (1.0-4.8) k/uL ABG pCO2 (35-45) mmHg ABG HCO3 (21-25) mmol/L ABG O2 Saturation (94-97) % Sodium (137-145) mmol/L Potassium (3.5-5.1) mmol/L Chloride (98-107) mmol/L Carbon Dioxide (22-30) mmol/L BUN (9-20) mg/dL Glucose (74-99) mg/dL POC Glucose (mg/dL) 167 H 130 H 126 H (75-99) mg/dL Calcium (8.4-10.2) mg/dL 10/31/19 10/31/19 10/31/19 Range/Units 07:39 08:54 10:06 WBC (3.8-10.6) k/uL RBC (4.30-5.90) m/uL Hgb (13.0-17.5) gm/dL Hct (39.0-53.0) % MCV (80.0-100.0) fL Plt Count (150-450) k/uL Neutrophils # (Manual) (1.3-7.7) k/uL Lymphocytes # (Manual) (1.0-4.8) k/uL ABG pCO2 29 L (35-45) mmHg ABG HCO3 20 L (21-25) mmol/L ABG O2 Saturation 98.8 H (94-97) % Sodium (137-145) mmol/L Potassium (3.5-5.1) mmol/L Chloride (98-107) mmol/L Carbon Dioxide (22-30) mmol/L BUN (9-20) mg/dL Glucose (74-99) mg/dL POC Glucose (mg/dL) 183 H 223 H (75-99) mg/dL Calcium (8.4-10.2) mg/dL 10/31/19 10/31/19 Range/Units 11:05 11:59 WBC (3.8-10.6) k/uL RBC (4.30-5.90) m/uL Hgb (13.0-17.5) gm/dL Hct (39.0-53.0) % MCV (80.0-100.0) fL Plt Count (150-450) k/uL Neutrophils # (Manual) (1.3-7.7) k/uL Lymphocytes # (Manual) (1.0-4.8) k/uL ABG pCO2 (35-45) mmHg ABG HCO3 (21-25) mmol/L ABG O2 Saturation (94-97) % Sodium (137-145) mmol/L Potassium (3.5-5.1) mmol/L Chloride (98-107) mmol/L Carbon Dioxide (22-30) mmol/L BUN (9-20) mg/dL Glucose (74-99) mg/dL POC Glucose (mg/dL) 203 H 212 H (75-99) mg/dL Calcium (8.4-10.2) mg/dL Microbiology - Last 24 Hours (Table) 10/28/19 14:00 Blood Culture - Preliminary Blood No Growth after 48 hours 10/28/19 13:55 Gram Stain - Final Sputum Sputum Culture - Final Layne albicans Assessment and Plan (1) Hyponatremia Current Visit: Yes Status: Acute Code(s): E87.1 - HYPO-OSMOLALITY AND HYPONATREMIA SNOMED Code(s): 99135149 (2) Hyperkalemia Current Visit: Yes Status: Acute Code(s): E87.5 - HYPERKALEMIA SNOMED Code(s): 44895416 (3) Sigmoid diverticulitis Current Visit: Yes Status: Acute Code(s): K57.32 - DVTRCLI OF LG INT W/O PERFORATION OR ABSCESS W/O BLEEDING SNOMED Code(s): 975334162 (4) Dynamic ileus Current Visit: Yes Status: Acute Code(s): K56.7 - ILEUS, UNSPECIFIED SNOMED Code(s): 40733916 (5) Hyperosmolar syndrome Current Visit: Yes Status: Acute Code(s): E87.0 - HYPEROSMOLALITY AND HYPERNATREMIA SNOMED Code(s): 19128959 (6) Hyperosmolarity due to secondary diabetes mellitus Current Visit: Yes Status: Acute Code(s): E13.00 - OTH DIAB W HYPROSM W/O NONKET HYPRGLY-HYPROS COMA ([facility]) SNOMED Code(s): 59428902 (7) Altered mental state Current Visit: No Status: Acute Code(s): R41.82 - ALTERED MENTAL STATUS, UNSPECIFIED SNOMED Code(s): 530400460 (8) Dementia Current Visit: No Status: Acute Code(s): F03.90 - UNSPECIFIED DEMENTIA WITHOUT BEHAVIORAL DISTURBANCE SNOMED Code(s): 39779119 (9) Renal insufficiency syndrome Current Visit: No Status: Acute Code(s): N28.9 - DISORDER OF KIDNEY AND URETER, UNSPECIFIED SNOMED Code(s): 827866043 (10) Shock liver Current Visit: Yes Status: Acute Code(s): K72.00 - ACUTE AND SUBACUTE HEPATIC FAILURE WITHOUT COMA SNOMED Code(s): 771387384 (11) Sepsis Current Visit: Yes Status: Acute Code(s): A41.9 - SEPSIS, UNSPECIFIED ORGANI SM SNOMED Code(s): 15624871
[2019-10-28 10:47] LABS: Glucose,Whole Blood 195 mg/dL (75-99)
[2019-10-28] MEDS: POTASSIUM PHOSPHATE 10 MMOL in SODIUM CHLORIDE 0.9% 100 ML IV SCH ×2 (11:02→11:59)
[2019-10-28 11:49] LABS: Glucose,Whole Blood 184 mg/dL (75-99)
[2019-10-28] MEDS ORDERED: ACETAMINOPHEN IV (For NPO) 1,000 MG in EMPTY BAG 1 BAG IVPB PRN (12:37)
[2019-10-28 13:03] LABS: Glucose,Whole Blood 177 mg/dL (75-99)
[2019-10-28 13:21] LABS: Basophils # (A) 0.1 k/uL (0-0.2); Basophils % (A) 1 %; Eosinophils # (A) 0.1 k/uL (0-0.7); Eosinophils % (A) 1 %; HCT 30.1 % (39.0-53.0); HGB 9.4 gm/dL (13.0-17.5); Hypochromasia Moderate; Lymphocytes # (A) 0.6 k/uL (1.0-4.8); Lymphocytes % (A) 5 %; MCH 32.5 pg (25.0-35.0); MCHC 31.2 g/dL (31.0-37.0); MCV 104.4 fL (80.0-100.0); Macrocytosis Moderate; Mean Platelet Volume 10.5; Monocytes # (A) 0.4 k/uL (0-1.0); Monocytes % (A) 3 %; Neutrophils # (A) 11.4 k/uL (1.3-7.7); Neutrophils % (A) 90 %; Platelet Count 166 k/uL (150-450); RBC 2.88 m/uL (4.30-5.90); RDW 14.1 % (11.5-15.5); WBC 12.7 k/uL (3.8-10.6)
--- NOTE | 2019-10-28 13:45 | P.PN ---
Subjective Progress Note Date: 10/28/19 Principal diagnosis: Hypovolemic shock, possible septic shock secondary to abdominal sepsis. 80-year-old male patient known history of dementia, diabetes hypertension osteoarthritis in addition to abdominal aortic aneurysm, presented to the ED with altered mentation and severe dehydration. The patient's was noted to have elevated blood sugars at home which prompted this hospital visit. He was unable to provide any history at time of admission. He was confused and disoriented and his condition was progressively getting worse over this past few weeks. He apparently had generalized weakness, falls, and he was not seeking any medical attention. He has Alzheimer's dementia. His has Alzheimer's dementia also. Apparently his oral intake has been minimal and the patient was drinking only 4 L of soda on a daily basis. He has been noncompliant his diabetic medications also. A blood sugar of more than 1800. Sodium was 116. Potassium was 5.7 with a chloride of 74 and a serum bicarbonate 8 with an anion gap of 34. Creatinine was 2.4 with a BUN of 33. The serum lactate was 11.7. Troponin was 0.8. Phosphorus was 8.8. Lipase was 229. UA showed +4 glucose and the serum acetone was negative. The patient received a total of 4 L of IV fluids in the emergency department. He was started on an insulin drip. Currently the patient is on half-normal saline with 20 mEq of potassium. The patient metabolic acidosis improving. Based on the follow-up blood gases the pH was 7.0 and septal 7.13. Serum bicarb is also on the rise. The serum pCO2 is 26. Troponin 38. This was done and FiO2 of 36%. Sodium level improved and septal 131 and a potassium level is at 3.8. Anion gap is improving is down to 28. Creatinine is still at 2.1. Most recent blood sugar shows that the sugar is still elevated above 600 with a serum measurement of 1230. The chest x-ray shows some subsegmental atelectasis in the right lower lobe. CAT scan of the brain shows no evidence of any acute hemorrhage. There is some degenerative changes and nonspecific white matter changes consistent with remote ischemia. EKG showing sinus tachycardia along with Q waves over the anteroseptal leads consistent with an old infarct. Heart rate is around 102. On today's evaluation of 10/22/2019, the patient is still lethargic and somnolent and encephalopathic. He is unable to volunteer any history. He has dementia. Furthermore there has been significant metabolic disturbances, leading to his impaired mentation. In terms of his blood sugar control, the patient has been on insulin drip at 3 units an hour. His IV fluids have been running in the form of D5 half-normal saline along with 20 mEq of potassium at the rate of 150 mL an hour. The patient was receiving another 2 L of IV fluid bolus based on the fact that it looks quite dry with very dry mucosal membranes on today's evaluation. In terms of his blood sugar control, the blood sugar was steadily going down and after the blood sugar went down below 300 was switched him to a D5 half-normal saline solution. His anion gap is at 10. The serum bicarb is at 18. His lactic acid level has dropped down to 6.0. His troponin peaked at 2.2. Denies having any chest pain. Note that his based on troponin was at 0.8. His EKG showed old Q-wave changes over the anteroseptal leads and echocardiac Tito was done today and the patient was found to have a ejection fraction estimated to be around 30-35% along with anteroseptal and apical hypokinesis. No evidence of an aortic valve stenosis. Unable to estimate the right-sided pressures. Unable to have a good visualization of the rest of the valves. His white cell count of 15.4. His antibiotic coverage includes a combination of Rocephin and Zithromax and Diflucan for now. There is some erythema along the penile tip and the Maradiaga catheter is in place. Repeat chest x-ray from today shows atelectatic changes in the right lower lobe. No other significant abnormalities have been noted. The patient is currently on 4 L of oxygen by nasal cannula with a pulse ox of 98%. He still has some underlying sinus tachycardia. On today's evaluation of 10/23/2019 the patient's condition decompensated. I have already contacted the son and updated them on his father's condition. Note that by yesterday afternoon, the patient became progressively more restless, agitated, shortness of breath, and he was also indicating the possibility of abdominal distention and pain. He was hard to communicate with him as the patient was not providing any meaningful information and he was altered mentally. Nevertheless, we suspected that the patient was having increased abdominal pain and discomfort. At that point, decided to insert an NG tube and immediately approximately a liter of gastric juice was obtained as a return. Abdomen remained quite tender and distended. At that point, the patient was also becoming more hypotensive. He was given more IV fluids. He was intubated and placed on a mechanical ventilator. Post intubation, the patient became hypotensive and he was started on IV pressors. Blood gases was noted. Chest x- ray was noted. The patient was developing a right lower lobe pulmonary infiltration. He was taken down for a CAT scan of the abdomen and pelvis and the CAT scan showed evidence of a infiltrate in the right lung base and fatty i nfiltration of the liver and some multiple calcified gallstones and the bile ducts were not dilated. At the same time, the CAT scan showed a fusiform 4.4 cm lower abdominal aortic aneurysm. There was no evidence of any retroperitoneal lymphadenopathy. There was multiple diverticula in the sigmoid colon and multiple dilated air fluid filled loops of the small bowel and the small bowel was dilated up to 4 cm in size. There was also mild wall thickening of the ascending colon. There was also minimal fat stranding around the sigmoid colon. There was osteoarthritis of the right hip. Antibiotics were modified and the patient was started on IV Zosyn. This morning, the patient is sedated with propofol at 20 g. This is to be switched to Versed at the patient's triglyceride level came up above 500. The patient is receiving IV fluids in the form of normal saline at rate of 100 mL an hour. His urine output is diminished and the patient's creatinine is at 2.5. The neck fluid balance over the past 24 hours has been +5.3 L. The patient is currently on norepinephrine infusion running at 0.4 mcg/kg per minute. The patient is also on insulin drip at 9 units an hour. Noted the blood sugar control is improved and the patient's lactic acid level was also improving it was down to 3.7. During the course of this treatment, the patient developed also a shock liver with elevated AST and ALT. He developed an acute kidney injury on top of his chronic kidney failure with a creatinine maxing at 2.7 down to 2.5. The patient is currently on a mechanical ventilator on assist control mode at the rate of 28 with tidal volume of 500 and FiO2 of 60% with a PEEP of 5. Morning blood gases showed a pH of 7.39 with a pCO2 of 26 and pO2 of 185. Morning chest x-ray showed right lower lobe pulmonary infiltration and subsequently a triple-lumen catheter was inserted and the supportive living catheter was inserted without any complications. Surgical consultation was also obtained regarding the abdominal findings. On 10/24/2019, the patient remains critically ill. The patient remains in shock and this is most likely a septic shock following an acute hypovolemic shock. The patient initially presented with HHS. Subsequently the patient started acting septic and the source is most likely the abdomen. The patient had a elevated TROPONIN level. Lactic acid levels were elevated and the patient had abdominal pain and distention. NG tube was inserted and a CAT scan of the abdomen was done that showed findings suggesting small bowel obstruction and some inflammatory changes involving the ascending colon and the sigmoid. Nevertheless, there was no evidence of any acute abdomen or pneumoperitoneum with ischemic bowel. The patient was kept on Zosyn and Flagyl was added. He did have difficulties with his hemodynamics and the patient was on and off becoming hypotensive and he was getting IV fluids to maintain a CVP above 10. The patient is currently receiving normal saline at the rate of 100 mL an hour. He is also on vasopressin at physiologic dose of 0.03 units per minute and the patient is on norepinephrine running at 0.38 g per KG per minute. Abdomen is still slightly distended and the patient is a bit tender and he can grimace upon abdominal [id number] white him being sedated with Versed which is running at 6 mg an hour. Gen. surgery will be asked to evaluate this patient. NG tube is in place and output over the past 24 hours has been in the order of 400 mL of gastric material. No bowel movements yet. He is having episodes of fever and the patient has had a temperature max of 11.1 and a temperature is down to 99.8. The patient had 2 additional sets of blood cultures sent patient was given a dose of vancomycin yesterday. This was done pending further cultures. Meanwhile, the patient remains on a mechanical ventilator. This morning, he remained on assist control mode with a tidal volume of 500 and FiO2 of 40% with a PEEP of 5. Chest x-ray is showing stable bilateral pulmonary infiltrates and atelectatic changes in lung bases. ET tube in good location so in the OG-tube. Her blood gases showed a pH of 7.39 with a pCO2 of 25 and pO2 of 67 and this was on above-mentioned ventilator setting. Lactic acid level is gradually dropped down to 3.0. The patient has shock liver. LFTs are considerably abnormal and the numbers are improving. AST is down to 2153 and ALT is down to 1107. As stated, neck yesterday dropped down to 3.2, the creatinine is still elevated at 2.2 with a BUN of 39 and the patient has a mild anion gap metabolic acidosis with a gap of 11 which is improved and his serum bicarbonate of 15. On today's evaluation of 10/25/2019, the patient remains critically ill. Remains intubated on a mechanical ventilator and remains sedated. On today's evaluation, he had an assist-control mode of ventilation and the patient is at the rate of 28 with a tidal volume of 500 and FiO2 of 50% with a PEEP of 5. The blood gases Show a pH of 7.51 with a pCO2 of 28 and pO2 of 65 and I think this is a essentially respiratory alkalosis as the patient's metabolic acidosis has recovered and the patient's serum bicarbonate was up to 22 while being given a bicarb infusion. The chest x-ray from today shows no significant interval change compared to yesterday's chest x-ray. There is a elevation of the right hemidiaphragm. The ET tube and NG tube remains in place. There is a left subclavian triple-lumen catheter in place. In my opinion, the patient remains quite septic. The patient is still having episodes of fever. The patient remains in shock and pressor dependent. Vasopressin is running at physiologic dose and the norepinephrine infusion has been drop down to 0.3 g per KG per minute. I had a discussion with the general surgeon and will going to continue the conservative approach. Patient is considered to be a high surgical risk for even exploration. Meanwhile, NG tube is in place and has drained approximately 900 mL of gastric material over the past 24 hours. Abdomen is slightly improved and less distended compared to yesterday. There is some mild direct tenderness without rebound tenderness. The patient is hypoactive in terms of his bowel sounds. Extremities abdomen is being done for a small bowel follow-through. The patient remains on insulin which is running at 2.5 units an hour for blood sugar control. The patient is on bicarb drip that he'll be taken off and this will decision to half-normal saline as the patient has also developed some hypernatremia. Serum bicarb is up to 21. He is having episodes of fever still. All of the repeat blood cultures came back negative. Hemoglobin is at 12.5. White cell count is at 10.7. Platelet count has dropped down to 94% is stable compared to yesterday. On 10/26/2019, the patient is currently being seen for a follow-up intubated on a mechanical ventilator in the intensive care unit. The patient remains sedated with Versed running at 6 mg an hour. While sedated and calm and comfortable and episodically requiring Dilaudid for pain control. He is on assist control rate of 22 with a tidal volume of 500 and FiO2 of 40% with a PEEP of 5. Blood gases showed a pH of 7.30 with a pCO2 of 32 and pO2 of 79 and the chest x-ray shows moderate-sized bilateral pleural effusions right more than left. ET tube is in a good location. NG tube is in good location. Output from the NG has slowed down and the patient is producing approximately 300-400 mL of NG output over the past 24 hours. The initial small bowel follow-through was consistent with small bowel obstruction as there was no passage of contrast past the jejunum. S ubsequent x-ray of the abdomen was done this morning and contrast has made it to the colon and as such there is probably there is no evidence of anatomic obstruction and this could be essentially an ileus. The patient remains nothing by mouth. The patient will be started on TPN for nutritional support. White cell count of 9.6. The sodium is at 149. BNP is 44 with a creatinine of 1.8 which is improved compared to yesterday. Most recent lactic acid level is down to 2.8. The patient was a shock liver and the AST/ALT levels are also improving based on yesterday's lab. No significant fever episodes since yesterday evening and the patient is not spiking any further temperature. Cultures are negative and the patient remains on a combination of Zosyn and Flagyl. Patient was reevaluated today on 10/27/19, remains in the ICU, intubated and mechanically ventilated. Patient's ventilator settings are assist control rate of 22 tidal volume is 500, FiO2 is 40%, PEEP is 5. ABG showed a pO2 of 80 pCO2 of 34 pH of 7.44. His drips include IV fluid at D5W 50 mL/h, TPN, Versed at 2 mg per hour, insulin at 5 units per hour, vasopressin at 0.03 units per minute. He is also on norepinephrine. 13 mcg/kg/m. Patient remains on Flagyl and Zosyn for presumptive abdominal sepsis. His CVP today is 5. Patient did have a mucoid bowel movement last night. Chest x-ray shows bilateral pleural ef fusions, right more so than left. Labs today showed relatively normal CBC, WBC count is 10.1 hemoglobin is 10.4. Electrolytes are normal sodium is improving down to 147 BUN is 42 creatinine is 1.54. Pro-calcitonin remains elevated at 8.54. Liver enzymes are improving. Patient was reevaluated today on 10/28/19, remains in the ICU, intubated and mechanically ventilated. His ventilator settings are assist control rate of 22 tidal volume is 500 FiO2 is 40% PEEP is 5. ABG showed a pO2 of 76 pCO2 of 31 and pH of 7.44 patient is on multiple drips including TPN at 10 5 mL per hour, and I cut it down to 80 mL per hour. He is on D5W which I have discontinued. He is also on insulin 21 units per hour. Vasopressin at 0.03 units per minute. Norepinephrine at 0.03 mcg/kg/MIN. Renal functioning is improving. And his urine output seems to be about 100 mL per hour. Chest x-ray continues to show right lower lobe atelectasis, consolidation, and possibly a small right-sided pleural effusion. Patient is sedated, however I have instructed the nurses to hold Versed, and assess his mental status today. Patient remains on Versed at 2 mg per hour. CBC is basically unremarkable hemoglobin is 9.4 WBC count is 12.7. BUN is 43 creatinine 1.38, steadily improving. Potassium is a bit low at 3.4, being corrected as per protocol. Pro-calcitonin remains high, and his chest x- ray is suggestive of right lower lobe consolidation. Blood cultures and urine cultures remain negative so far. Objective - Vital Signs Vital signs: Vital Signs Temp 101.1 F H 10/28/19 12:00 Pulse 92 10/28/19 13:00 Resp 31 H 10/28/19 13:00 BP 120/56 10/28/19 12:30 Pulse Ox 97 10/28/19 13:00 Intake & Output 10/27/19 10/28/19 10/28/19 18:59 06:59 18:59 Intake Total 2871.464 2462.095 1093.135 Output Total 785 1400 870 Balance 2609.919 7385.095 223.135 Weight 81.7 kg 84 kg 84 kg Intake: IV 1071.59 2461 206 .9 Sodium Chloride @ 10ml 120 120 /hr Dextrose 5% in Water 1, 550 325 50 000 ml @ 25 mls/hr IV . Q24H [facility] Rx#:[id number] Fat Emulsion 20% 250 ml @ 168 20.833 mls/hr IV DAILY@ 1500 [facility] Rx#:[id number] Magnesium Sulfate-D5w Pmx 200 1 gm In Dextrose/Water 1 100ml.bag @ 100 mls/hr IVPB Q1H [facility] Rx#: [id number] Piperacillin-Tazobactam 3 125 200 .375 gm In Sodium Chloride 0.9% 100 ml @ 25 mls/hr IVPB Q8H [facility] Rx#: [id number] Potassium Acetate 20 meq 1260 Magnesium Sulfate gm 1 gm Calcium Gluconate 1 gm In Amino Acid 5%-D15w 1, 000 ml @ 105 mls/hr IV . BY DURATION INDU Rx#: [id number] Potassium Chloride 20 meq 100 In Water For Injection 1 100ml.bag @ 50 mls/hr IVPB Q2H [facility] Rx#: [id number] Pressure Bag 72 78 36 Sodium Chloride 0.9% 150 4.59 ml @ 0.03 UNITS/MIN 4.59 mls/hr IV .Q24H IN[facility] with Vasopressin 60 unit Rx#: [id number] Sodium Chloride 0.9% 500 120 10 ml 500 ml @ 20 mls/hr IV .Q24H [facility] Rx#:[id number] metroNIDAZOLE-NS PMX 500 100 100 mg In Saline 1 100ml.bag @ 100 mls/hr IVPB Q8HR [facility] Rx#:[id number] Intake, IV Titration 890.078 325.095 667.135 Amount ACETAMINOPHEN IV (For NPO 400 ) 1,000 mg In Empty Bag 1 bag @ 400 mls/hr IVPB Q6HR PRN Rx#:[id number] Fat Emulsion 20% 250 ml @ 21 21 20.833 mls/hr IV DAILY@ 1500 [facility] Rx#:[id number] Insulin Regular 100 unit 64.084 179.082 127.598 In Sodium Chloride 0.9% 100 ml @ Per Protocol IV .Q0M [facility] Rx#:[id number] Midazolam HCl 50 mg In 46.5 30.933 Sodium Chloride 0.9% 40 ml @ 1 MG/HR 1 mls/hr IV .Q24H [facility] Rx#:[id number] Norepinephrine 32 mg In 103.494 20.013 8.604 Sodium Chloride 0.9% 218 ml @ 0.42 MCG/KG/MIN 14. 805 mls/hr IV .[id number] [facility] Rx#:[id number] Piperacillin-Tazobactam 3 100 .375 gm In Sodium Chloride 0.9% 100 ml @ 25 mls/hr IVPB Q8H [facility] Rx#: [id number] Potassium Acetate 20 meq 105 Magnesium Sulfate gm 1 gm Calcium Gluconate 1 gm Mvi, Adult No.4 with Vit K 10 ml Trace (Conc-1Ml/ Dose) 1 ml In Amino Acid 5%-D15w 1,000 ml @ 105 mls/hr IV .BY DURATION [facility] Rx#:[id number] Potassium Acetate 30 meq 405 Magnesium Sulfate gm 1 gm Calcium Gluconate 2 gm Mvi, Adult No.4 with Vit K 10 ml Trace (Conc-1Ml/ Dose) 1 ml In Amino Acid 5%-D15w 1,000 ml @ 30 mls /hr IV .Q24H ONE Rx#: [id number] Potassium Phosphate 10 150 mmol In Sodium Chloride 0 .9% 100 ml @ 50 mls/hr IV Q2H [facility] Rx#:[id number] metroNIDAZOLE-NS PMX 500 100 mg In Saline 1 100ml.bag @ 100 mls/hr IVPB Q8HR [facility] Rx#:[id number] Tube Feeding 180 220 Other 90 Output: Urine 785 1400 870 Other: Voiding Method Indwelling Catheter Indwelling Catheter Indwelling Catheter # Voids 50 # Bowel Movements 1 ABP, PAP, CO, CI - Last Documented Arterial Blood Pressure 104/47 - Exam Physical Exam: Revealed an 79-year-old white male sedated, intubated, in no distress. Head: Atraumatic, normocephalic. HEENT:[Neck is supple.] [No neck masses.] [No thyromegaly.] [No JVD.] PERRLA, EOMI, no icterus, intact orogastric tube and endotracheal tube. Chest: [Symmetrical chest expansion, diminished breath sounds at the bases, no rhonchi and no wheezes.] Cardiac Exam: [Normal S1 and S2, no S3 gallop, no murmur.] Abdomen: [Flat, soft, nontender, diminished bowel sounds. No rebound, no guarding.] Extremities: [No clubbing, 1+ bipedal edema and chronic venous stasis changes bilaterally. Chronic superficial ulcerations of lower extremities noted. Neurological Exam: Could not be assessed, patient is intubated mechanically ventilated and on versed, plan to hold Versed and assess mental status if possib le today. Skin: Superficial ulcerations lower extremities and chronic venous stasis changes. - Labs CBC & Chem 7: 10/28/19 12:50 10/28/19 04:00 Labs: Abnormal Lab Results - Last 24 Hours (Table) 10/26/19 10/27/19 10/27/19 Range/Units 06:05 14:06 15:08 WBC (3.8-10.6) k/uL RBC (4.30-5.90) m/uL Hgb (13.0-17.5) gm/dL Hct (39.0-53.0) % MCV (80.0-100.0) fL Plt Count (150-450) k/uL Neutrophils # (1.3-7.7) k/uL Lymphocytes # (1.0-4.8) k/uL ABG pCO2 (35-45) mmHg ABG pO2 (83-108) mmHg Potassium (3.5-5.1) mmol/L Chloride (98-107) mmol/L Carbon Dioxide (22-30) mmol/L BUN (9-20) mg/dL Creatinine (0.66-1.25) mg/dL Glucose (74-99) mg/dL POC Glucose (mg/dL) 168 H 168 H (75-99) mg/dL Calcium (8.4-10.2) mg/dL Phosphorus (2.5-4.5) mg/dL ALT (4-49) U/L Total Protein (6.3-8.2) g/dL Albumin (3.5-5.0) g/dL Procalcitonin 8.54 H (0.02-0.09) ng/mL 10/27/19 10/27/19 10/27/19 Range/Units 15:52 16:59 17:01 WBC (3.8-10.6) k/uL RBC (4.30-5.90) m/uL Hgb (13.0-17.5) gm/dL Hct (39.0-53.0) % MCV (80.0-100.0) fL Plt Count (150-450) k/uL Neutrophils # (1.3-7.7) k/uL Lymphocytes # (1.0-4.8) k/uL ABG pCO2 (35-45) mmHg ABG pO2 (83-108) mmHg Potassium (3.5-5.1) mmol/L Chloride (98-107) mmol/L Carbon Dioxide (22-30) mmol/L BUN (9-20) mg/dL Creatinine (0.66-1.25) mg/dL Glucose (74-99) mg/dL POC Glucose (mg/dL) 171 H 136 H 212 H (75-99) mg/dL Calcium (8.4-10.2) mg/dL Phosphorus (2.5-4.5) mg/dL ALT (4-49) U/L Total Protein (6.3-8.2) g/dL Albumin (3.5-5.0) g/dL Procalcitonin (0.02-0.09) ng/mL 10/27/19 10/27/19 10/27/19 Range/Units 18:03 19:06 19:59 WBC (3.8-10.6) k/uL RBC (4.30-5.90) m/uL Hgb (13.0-17.5) gm/dL Hct (39.0-53.0) % MCV (80.0-100.0) fL Plt Count (150-450) k/uL Neutrophils # (1.3-7.7) k/uL Lymphocytes # (1.0-4.8) k/uL ABG pCO2 (35-45) mmHg ABG pO2 (83-108) mmHg Potassium (3.5-5.1) mmol/L Chloride (98-107) mmol/L Carbon Dioxide (22-30) mmol/L BUN (9-20) mg/dL Creatinine (0.66-1.25) mg/dL Glucose (74-99) mg/dL POC Glucose (mg/dL) 229 H 247 H 283 H (75-99) mg/dL Calcium (8.4-10.2) mg/dL Phosphorus (2.5-4.5) mg/dL ALT (4-49) U/L Total Protein (6.3-8.2) g/dL Albumin (3.5-5.0) g/dL Procalcitonin (0.02-0.09) ng/mL 10/27/19 10/27/19 10/27/19 Range/Units 20:57 22:02 22:53 WBC (3.8-10.6) k/uL RBC (4.30-5.90) m/uL Hgb (13.0-17.5) gm/dL Hct (39.0-53.0) % MCV (80.0-100.0) fL Plt Count (150-450) k/uL Neutrophils # (1.3-7.7) k/uL Lymphocytes # (1.0-4.8) k/uL ABG pCO2 (35-45) mmHg ABG pO2 (83-108) mmHg Potassium (3.5-5.1) mmol/L Chloride (98-107) mmol/L Carbon Dioxide (22-30) mmol/L BUN (9-20) mg/dL Creatinine (0.66-1.25) mg/dL Glucose (74-99) mg/dL POC Glucose (mg/dL) 310 H 314 H 326 H (75-99) mg/dL Calcium (8.4-10.2) mg/dL Phosphorus (2.5-4.5) mg/dL ALT (4-49) U/L Total Protein (6.3-8.2) g/dL Albumin (3.5-5.0) g/dL Procalcitonin (0.02-0.09) ng/mL 10/27/19 10/28/19 10/28/19 Range/Units 23:50 00:54 01:52 WBC (3.8-10.6) k/uL RBC (4.30-5.90) m/uL Hgb (13.0-17.5) gm/dL Hct (39.0-53.0) % MCV (80.0-100.0) fL Plt Count (150-450) k/uL Neutrophils # (1.3-7.7) k/uL Lymphocytes # (1.0-4.8) k/uL ABG pCO2 (35-45) mmHg ABG pO2 (83-108) mmHg Potassium (3.5-5.1) mmol/L Chloride (98-107) mmol/L Carbon Dioxide (22-30) mmol/L BUN (9-20) mg/dL Creatinine (0.66-1.25) mg/dL Glucose (74-99) mg/dL POC Glucose (mg/dL) 315 H 299 H 295 H (75-99) mg/dL Calcium (8.4-10.2) mg/dL Phosphorus (2.5-4.5) mg/dL ALT (4-49) U/L Total Protein (6.3-8.2) g/dL Albumin (3.5-5.0) g/dL Procalcitonin (0.02-0.09) ng/mL 10/28/19 10/28/19 10/28/19 Range/Units 02:55 04:00 04:00 WBC 11.8 H (3.8-10.6) k/uL RBC 2.85 L (4.30-5.90) m/uL Hgb 9.5 L (13.0-17.5) gm/dL Hct 29.9 L (39.0-53.0) % MCV 104.9 H (80.0-100.0) fL Plt Count 144 L D (150-450) k/uL Neutrophils # (1.3-7.7) k/uL Lymphocytes # (1.0-4.8) k/uL ABG pCO2 (35-45) mmHg ABG pO2 (83-108) mmHg Potassium 3.4 L (3.5-5.1) mmol/L Chloride 117 H (98-107) mmol/L Carbon Dioxide 21 L (22-30) mmol/L BUN 43 H (9-20) mg/dL Creatinine 1.38 H (0.66-1.25) mg/dL Glucose 259 H (74-99) mg/dL POC Glucose (mg/dL) 295 H (75-99) mg/dL Calcium 7.2 L (8.4-10.2) mg/dL Phosphorus 1.6 L (2.5-4.5) mg/dL ALT 107 H (4-49) U/L Total Protein 3.9 L (6.3-8.2) g/dL Albumin 1.7 L (3.5-5.0) g/dL Procalcitonin (0.02-0.09) ng/mL 10/28/19 10/28/19 10/28/19 Range/Units 04:02 04:56 06:03 WBC (3.8-10.6) k/uL RBC (4.30-5.90) m/uL Hgb (13.0-17.5) gm/dL Hct (39.0-53.0) % MCV (80.0-100.0) fL Plt Count (150-450) k/uL Neutrophils # (1.3-7.7) k/uL Lymphocytes # (1.0-4.8) k/uL ABG pCO2 (35-45) mmHg ABG pO2 (83-108) mmHg Potassium (3.5-5.1) mmol/L Chloride (98-107) mmol/L Carbon Dioxide (22-30) mmol/L BUN (9-20) mg/dL Creatinine (0.66-1.25) mg/dL Glucose (74-99) mg/dL POC Glucose (mg/dL) 290 H 296 H 283 H (75-99) mg/dL Calcium (8.4-10.2) mg/dL Phosphorus (2.5-4.5) mg/dL ALT (4-49) U/L Total Protein (6.3-8.2) g/dL Albumin (3.5-5.0) g/dL Procalcitonin (0.02-0.09) ng/mL 10/28/19 10/28/19 10/28/19 Range/Units 06:51 07:28 07:55 WBC (3.8-10.6) k/uL RBC (4.30-5.90) m/uL Hgb (13.0-17.5) gm/dL Hct (39.0-53.0) % MCV (80.0-100.0) fL Plt Count (150-450) k/uL Neutrophils # (1.3-7.7) k/uL Lymphocytes # (1.0-4.8) k/uL ABG pCO2 31 L (35-45) mmHg ABG pO2 74 L (83-108) mmHg Potassium (3.5-5.1) mmol/L Chloride (98-107) mmol/L Carbon Dioxide (22-30) mmol/L BUN (9-20) mg/dL Creatinine (0.66-1.25) mg/dL Glucose (74-99) mg/dL POC Glucose (mg/dL) 287 H 233 H (75-99) mg/dL Calcium (8.4-10.2) mg/dL Phosphorus (2.5-4.5) mg/dL ALT (4-49) U/L Total Protein (6.3-8.2) g/dL Albumin (3.5-5.0) g/dL Procalcitonin (0.02-0.09) ng/mL 10/28/19 10/28/19 10/28/19 Range/Units 09:04 10:46 11:47 WBC (3.8-10.6) k/uL RBC (4.30-5.90) m/uL Hgb (13.0-17.5) gm/dL Hct (39.0-53.0) % MCV (80.0-100.0) fL Plt Count (150-450) k/uL Neutrophils # (1.3-7.7) k/uL Lymphocytes # (1.0-4.8) k/uL ABG pCO2 (35-45) mmHg ABG pO2 (83-108) mmHg Potassium (3.5-5.1) mmol/L Chloride (98-107) mmol/L Carbon Dioxide (22-30) mmol/L BUN (9-20) mg/dL Creatinine (0.66-1.25) mg/dL Glucose (74-99) mg/dL POC Glucose (mg/dL) 244 H 195 H 184 H (75-99) mg/dL Calcium (8.4-10.2) mg/dL Phosphorus (2.5-4.5) mg/dL ALT (4-49) U/L Total Protein (6.3-8.2) g/dL Albumin (3.5-5.0) g/dL Procalcitonin (0.02-0.09) ng/mL 10/28/19 10/28/19 Range/Units 12:50 12:56 WBC 12.7 H (3.8-10.6) k/uL RBC 2.88 L (4.30-5.90) m/uL Hgb 9.4 L (13.0-17.5) gm/dL Hct 30.1 L (39.0-53.0) % MCV 104.4 H (80.0-100.0) fL Plt Count (150-450) k/uL Neutrophils # 11.4 H (1.3-7.7) k/uL Lymphocytes # 0.6 L (1.0-4.8) k/uL ABG pCO2 (35-45) mmHg ABG pO2 (83-108) mmHg Potassium (3.5-5.1) mmol/L Chloride (98-107) mmol/L Carbon Dioxide (22-30) mmol/L BUN (9-20) mg/dL Creatinine (0.66-1.25) mg/dL Glucose (74-99) mg/dL POC Glucose (mg/dL) 177 H (75-99) mg/dL Calcium (8.4-10.2) mg/dL Phosphorus (2.5-4.5) mg/dL ALT (4-49) U/L Total Protein (6.3-8.2) g/dL Albumin (3.5-5.0) g/dL Procalcitonin (0.02-0.09) ng/mL Microbiology - Last 24 Hours (Table) 10/23/19 21:45 Blood Culture - Preliminary Blood No Growth after 96 hours 10/23/19 21:30 Blood Culture - Preliminary Blood No Growth after 96 hours 10/21/19 18:20 Blood Culture - Final Blood No Growth after 144 hours Assessment and Plan Assessment: Impression: Acute hypoxic respiratory failure secondary to hypovolemic and septic shock. Acute abdominal sepsis, small bowel ileus/obstruction, remains on Zosyn and Flagyl. Possible right lower lobe pneumonia, hospital-acquired or could be aspiration related. Acute hyperosmolar nonketotic diabetic syndrome with profound hypovolemia and volume depletion/dehydration. Acute kidney injury secondary to hypovolemia and possible septic shock with acute tubular necrosis. Improving. Altered mental status on presentation secondary to hyperosmolar nonketotic state. History of Alzheimer's dementia Type 2 diabetes Pseudohyponatremia on presentation secondary to severe hyperglycemia. 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 History of 4.6 cm distal abdominal aortic aneurysm and previous iliac stent the graft placement. Acute shock liver secondary to hypotension on presentation. Improving. History of ischemic cardiomyopathy and LV dysfunction, ejection fraction of 30%. Severe lactic acidosis on presentation most likely secondary to abdominal sepsis and ischemic bowel. Recommendation: Continue ventilatory support. Continue GI and DVT prophylaxis. Continue insulin. Continue antibiotics/Zosyn and Flagyl. Continue IV fluid at KVO. Continue TPN. In the meantime advanced enteral feeding as tolerated. Sedation interruption and assessment of mental status daily. Continue to monitor liver enzymes. Overall prognosis is extremely poor and guarded. Critical care time is 33 minutes. We'll continue to follow Time with Patient: Greater than 30
[2019-10-28] MEDS ORDERED: [UNRECOGNIZED DRUG - OTHER] IV SCH ×7 (14:00)
[2019-10-28] MEDS ORDERED: MAGNESIUM SULFATE IV SCH ×7 (14:00)
[2019-10-28] MEDS ORDERED: POTASSIUM ACETATE IV SCH ×7 (14:00)
[2019-10-28] MEDS ORDERED: CALCIUM GLUCONATE IV SCH ×7 (14:00)
[2019-10-28 14:10] LABS: Glucose,Whole Blood 152 mg/dL (75-99)
[2019-10-28 15:02] LABS: Glucose,Whole Blood 118 mg/dL (75-99)
--- NOTE | 2019-10-28 15:18 | PN ---
PROGRESS NOTE Patient is seen for followup for acute kidney injury. His renal function continues to improve. Patient has been having bowel movements. Levophed is significantly decreased. Patient remains on TPN. FiO2 is at 40%. On examination today, blood pressure was 120/56, heart rate about 90 per minute. He is afebrile. Examination shows edema 1+ bilaterally. Abdomen is soft, nontender. Bilateral breath sounds are heard. Patient remains on the vent. FiO2 is at 40%. Labs show sodium 143, potassium 3.4, chloride 117. CO2 is 21, BUN 43, creatinine 1.38, phosphorus 1.6. ASSESSMENT: 1. Acute kidney injury associated with hypotension, hypoperfusion, acute tubular necrosis, currently nonoliguric and improving. 2. Hypernatremia, now resolved. We can discontinue the D5W. 3. Bowel obstruction with ileus, currently improved. 4. Hypophosphatemia, currently being replaced. 5. Possible chronic kidney disease with baseline creatinine 1.2 to 1.5 as of July of 2018; etiology likely nephrosclerosis. 6. Acute hypoxic respiratory failure, currently maintained on the vent. PLAN: Discontinue D5W. Continue to monitor labs. Continue to avoid nephrotoxic agents. MMODL / IJN: [id number] /
[2019-10-28] MEDS: ASPIRIN 300 MG SUPP RECTAL SCH (15:48)
[2019-10-28 16:01] LABS: Glucose,Whole Blood 107 mg/dL (75-99)
[2019-10-28 17:08] LABS: Glucose,Whole Blood 91 mg/dL (75-99)
[2019-10-28 18:01] LABS: Glucose,Whole Blood 137 mg/dL (75-99)
[2019-10-28 18:53] LABS: Glucose,Whole Blood 116 mg/dL (75-99)
--- NOTE | 2019-10-28 19:44 | P.PN ---
Progress Note - Text Progress Note Date: 10/28/19 Interval history: 79-year-old male with PMH of diabetes mellitus on oral hypoglycemics, con pascual presents the ED for altered mentation. Apparently, patient was visited by his nurse who noted an extremely high blood glucose which prompted his hospital visit. Patient is altered and he is unable to provide any meaningful history. Majority of documentation was obtained from chart review and discussion with his son. Apparently, patient has been confused and disoriented which is progressive ly been worsening over the past 2 weeks. His son reports that the patient fell a week ago and did not seek medical attention. Patient lives with his who is suffering from advanced Alzheimer's dementia and is currently in hospice. According to the son, patient drinks 4 L of soda on a daily basis. Son reports that patient is noncompliant with her diabetic diet. In the ED, vital signs showed a T low of 97.5 Fahrenheit, pulse of 102, tachypnea with respiratory rate of 28, BP of 85/49 and 89% on room air. CBC showed leukocytosis of 11 and MCV of 124.1. ABG showed pH of 7, pCO2 19, bica rbonate of 8. CMP showed sodium of 116, potassium of 5.7, chloride of 74, bicarbonate of 8, BUN 33, creatinine 2.18, glucose greater than 1875. Troponin was 0.881 with EKG showing sinus tachycardia. Urinalysis shows 4+ glucose and trace blood. Acetone was negative. CT brain was negative for hemorrhage but showed slightly hyperdense left MCA compared to right. Chest x-ray showed possible right lower lobe infiltrate. Patient is admitted to ICU for sepsis, troponin elevation and diabetic ketoacidosis. Intubated. Patient developed ischemic hepatitis. Sepsis. Also developed bowel obstruction-that corrected on its own. today-ICU. Having good bowel movements. FiO2 14 and PEEP of 5. Telemetry shows sinus rhythm. 2 feeding at 30 mL an hour. TPN been weaned off. Patient would IV vasopressin, norepinephrine. Patient's been taken off Versed Review of systems cannot be done patient intubated Active Medications Aspirin (Aspirin) 81 mg PO DAILY [facility] Chlorhexidine Gluconate (Peridex) 15 ml MUCOUS MEM BID [facility] Last Admin: 10/28/19 08:42 Dose: 15 ml Documented by: Heparin Sodium (Porcine) (Heparin) 5,000 unit SQ Q8HR [facility] Last Admin: 10/28/19 15:39 Dose: 5,000 unit Documented by: Hydromorphone HCl (Dilaudid) 1 mg IVP Q4HR PRN PRN Reason: Pain Last Admin: 10/28/19 12:33 Dose: 1 mg Documented by: Piperacillin Sod/Tazobactam (Sod 3.375 gm/ Sodium Chloride) 100 mls @ 25 mls/hr IVPB Q8H [facility] Last Admin: 10/28/19 11:35 Dose: 25 mls/hr Documented by: Midazolam HCl 50 mg/ Sodium (Chloride) 50 mls @ 1 mls/hr IV .Q24H [facility]; Protocol Last Titration: 10/28/19 09:24 Dose: 0 mg/hr, 0 mls/hr Documented by: Norepinephrine Bitartrate 32 (mg/ Sodium Chloride) 250 mls @ 14.805 mls/hr IV .[id number] [facility]; Protocol Last Titration: 10/28/19 18:05 Dose: 0.1 mcg/kg/min, 3.525 mls/hr Documented by: Insulin Human Regular 100 unit (/ Sodium Chloride) 101 mls @ 0 mls/hr IV .Q0M [facility]; Protocol Last Titration: 10/28/19 18:52 Dose: 15.5 unit/hr, 15.655 mls/hr Documented by: Vasopressin 60 unit/ Sodium (Chloride) 153 mls @ 4.59 mls/hr IV .Q24H [facility] Last Admin: 10/27/19 20:09 Dose: 4.59 mls/hr Documented by: Metronidazole 500 mg/ IV (Solution) 100 mls @ 100 mls/hr IVPB Q8HR [facility] Last Admin: 10/28/19 15:38 Dose: 100 mls/hr Documented by: Sodium Chloride (Saline 0.9%) 500 mls @ 20 mls/hr IV .Q24H [facility] Last Admin: 10/28/19 08:42 Dose: 20 mls/hr Documented by: Acetaminophen 1,000 mg/ IV (Solution) 100 mls @ 400 mls/hr IVPB Q6HR PRN PRN Reason: Fever Stop: 10/29/19 12:14 Last Admin: 10/28/19 12:52 Dose: 400 mls/hr Documented by: Miscellaneous Information (Pneumonia Protocol Utilized) 1 each PO ONCE PRN PRN Reason: Per Protocol Miscellaneous Information (Magnesium Per Protocol) 1 each MISCELLANE DAILY PRN; Protocol PRN Reason: Per Protocol Miscellaneous Information (Phosphorus Per Protocol) 1 each MISCELLANE DAILY PRN; Protocol PRN Reason: Per Protocol Miscellaneous Information (Potassium Per Protocol) 1 each MISCELLANE DAILY PRN; Protocol PRN Reason: Per Protocol Naloxone HCl (Narcan) 0.2 mg IV Q2M PRN PRN Reason: Opioid Reversal Nitroglycerin (Nitrostat) 0.4 mg SUBLINGUAL Q5M PRN PRN Reason: Chest Pain Pantoprazole Sodium (Protonix) 40 mg IV DAILY [facility] Last Admin: 10/28/19 08:41 Dose: 40 mg Documented by: On examination: VITAL SIGNS: At 8.9, 78, 26, 106/54, 98% on the ventilator GENERAL APPEARANCE: laying in bed, sedated, intubated. HEENT: Normal external appearance of nose and ear. Oral cavity -endotracheal tube, NG tube to suction EYES: Pupils equal. Conjunctiva normal. NECK: JVD unable to assess. Mass not palpable. RESPIRATORY: Respiratory effort increased. Lungs -decreased breath sounds CARDIOVASCULAR: First and second sounds normal. No edema. ABDOMEN: Soft. Liver and spleen not palpable. No tenderness. No mass palpable. PSYCHIATRY: unable to assess, patient sedated INVESTIGATIONS, reviewed in the clinical context: White count 11.8 hemoglobin 9.5 potassium 3.4 bun 43 creatinine 1.38 Previous testing: White count 11 hemoglobin 13.7 platelets 383 Sodium 116, bicarb 8, bun 33, creatinine 2.18 glucose 1875 troponin I 0.88 1 Rusty-19 PCR-not detected computed tomography scan of the brain without contrast-no acute degenerative changes Ultrasound kidney-limited exam 2-D echocardiogram-EF 30-35%, anteroseptal apical hypokinesia AST 3453, ALT 1264, computed tomography scan of the abdomen and pelvis without contrast-dilated multiple loops of small bowel some free fluid in the paracolic gutter bilateral lower lobe pulmonary infiltrates, fusiform 4.4 cm lower abdominal aortic aneurysm with aortoiliac endograft multiple diverticula of the sigmoid colon. Mild wall thickening of the ascending colon. Blood cultures from October 20-negative Abdominal x-ray-October 25--contrast has passed through to thecolon Assessment: -acute nonketotic hyperosmolar diabetes with severe hyperglycemia, POA -Acute small bowel obstruction, and distal jejunal clinically improved, NG tube suction discontinued.- tube feeding started -Acute hypoxic respiratory failure requiring mechanical ventilator support-slow to respond -Acute metabolic encephalopathy from above-slow to respond -Alzheimer's dementia -Pseudohyponatremia from severe hyperglycemia -4.4 cm distal abdominal aortic aneurysm with the endoluminal stent graft -Peripheral arterial disease -Acute shock liver secondary to hypotensive improving -Chronic congestive heart failure from systolic dysfunction EF 30-35% -Sepsis with septic shock, possible community acquired pneumonia -Metabolic encephalopathy likely due to the above -Non-ST elevation AL likely type II from demand ischemia, POA -Acute kidney injury likely ATN-some improvement -Possibly chronic kidney disease -essential hypertension -Pneumonia suspect gram-negative organism Plan: -insulin drip, IV vasopressin, norepinephrine,. Taken off midazolam,. Also on IV Flagyl and IV Zosyn. On TPN-being weaned off. Prognosis guarded.
[2019-10-28 20:44] LABS: Glucose,Whole Blood 104 mg/dL (75-99)
[2019-10-28 21:04] LABS: Glucose,Whole Blood 84 mg/dL (75-99)
[2019-10-28 21:40] LABS: Glucose,Whole Blood 102 mg/dL (75-99)
[2019-10-28 22:49] LABS: Glucose,Whole Blood 138 mg/dL (75-99)
[2019-10-29 00:04] LABS: Glucose,Whole Blood 190 mg/dL (75-99)
[2019-10-29] MEDS: INSULIN REGULAR 100 UNIT in SODIUM CHLORIDE 0.9% 100 ML IV SCH ×3 (00:04→18:22)
[2019-10-29] MEDS: HEPARIN SODIUM,PORCINE 5,000 UNIT/ML 1 ML VIAL SQ SCH ×3 (00:06→17:33)
[2019-10-29] MEDS: metroNIDAZOLE-NS PMX 500 MG in SALINE 1 100ML.BAG IVPB SCH ×3 (00:12→18:06)
[2019-10-29 01:05] LABS: Glucose,Whole Blood 194 mg/dL (75-99)
[2019-10-29 02:05] LABS: Glucose,Whole Blood 172 mg/dL (75-99)
[2019-10-29 03:03] LABS: Glucose,Whole Blood 146 mg/dL (75-99)
[2019-10-29] MEDS: PIPERACILLIN-TAZOBACTAM 3.375 GM in SODIUM CHLORIDE 0.9% 100 ML IVPB SCH ×3 (03:32→21:06)
[2019-10-29] MEDS: SODIUM CHLORIDE 0.9% 150 ML with VASOPRESSIN 60 UNIT IV SCH ×2 (03:49)
[2019-10-29 03:56] LABS: Glucose,Whole Blood 113 mg/dL (75-99)
[2019-10-29 04:07] LABS: HCT 29.8 % (39.0-53.0); HGB 9.5 gm/dL (13.0-17.5); Hypochromasia Moderate; MCH 33.2 pg (25.0-35.0); MCHC 31.8 g/dL (31.0-37.0); MCV 104.4 fL (80.0-100.0); Macrocytosis Moderate; Mean Platelet Volume 11.1; Platelet Count 230 k/uL (150-450); RBC 2.86 m/uL (4.30-5.90); WBC 14.2 k/uL (3.8-10.6)
[2019-10-29 04:16] LABS: Albumin 1.7 g/dL (3.5-5.0); Calcium 7.2 mg/dL (8.4-10.2); Magnesium 2.2 mg/dL (1.6-2.3); Phosphorus 1.7 mg/dL (2.5-4.5); Potassium 3.6 mmol/L (3.5-5.1); Total Bilirubin 1.1 mg/dL (0.2-1.3); Total Protein 4.2 g/dL (6.3-8.2)
[2019-10-29] MEDS: POTASSIUM PHOSPHATE 10 MMOL in SODIUM CHLORIDE 0.9% 250 ML IV SCH ×2 (04:35→06:46)
[2019-10-29 05:12] LABS: Glucose,Whole Blood 153 mg/dL (75-99)
[2019-10-29 06:01] LABS: Glucose,Whole Blood 148 mg/dL (75-99)
[2019-10-29 06:49] LABS: Glucose,Whole Blood 138 mg/dL (75-99)
[2019-10-29] MEDS: HYDROmorphone 1 MG/ML 1 ML SYRINGE IVP PRN (07:18)
--- NOTE | 2019-10-29 07:18 | XR ---
EXAMINATION TYPE: XR chest 1V DATE OF EXAM: 10/29/2019 COMPARISON: 10/28/2019 HISTORY: Ventilatory dependent respiratory failure. TECHNIQUE: Single frontal view of the chest is obtained. FINDINGS: Endotracheal and enteric tubes as well as left-sided PICC line are similar in position. Ri ght hemidiaphragm elevation is redemonstrated. Minimal bibasilar patchy airspace disease. Partially o bscured but overall stable cardiomediastinal silhouette. Diffuse osseous demineralization. Trace pleu ral effusions. IMPRESSION: Persistent and overall stable trace pleural effusions and bibasilar airspace disease, at electasis versus pneumonia.
[2019-10-29 07:48] LABS: ABG Base Excess -4.1 mmol/L; ABG HCO3 21 mmol/L (21-25); ABG Oxygen Saturation 96.7 % (94-97); ABG PCO2 33 mmHg (35-45); ABG PO2 78 mmHg (83-108); ABG TCO2 22 mmol/L (19-24); Allen Test Performed? Yes
[2019-10-29 08:09] LABS: Glucose,Whole Blood 126 mg/dL (75-99)
[2019-10-29] MEDS: NOREPINEPHRINE 32 MG in SODIUM CHLORIDE 0.9% 218 ML IV SCH ×2 (08:20→17:33)
[2019-10-29] MEDS: ASPIRIN 81 MG PO SCH (08:21)
[2019-10-29] MEDS: PANTOPRAZOLE 40 MG/10 ML VIAL IV SCH (08:26)
[2019-10-29] MEDS: CHLORHEXIDINE GLUCONATE 15 ML CUP MUCOUS MEM SCH ×2 (08:26→21:06)
[2019-10-29] MEDS: SODIUM CHLORIDE 0.9% 500 ML 500 ML IV SCH (08:26)
[2019-10-29] MEDS: MIDAZOLAM HCL 50 MG in SODIUM CHLORIDE 0.9% 40 ML IV SCH (08:27)
--- NOTE | 2019-10-29 09:24 | CDI ---
Documentation Clarification Form Date: 10/29/2019 08:35:12 AM From: Cristiane Bermudez RN, CCDS Admit Date: 10/21/2019 05:11:00 PM Patient Name: Jace Hernandez Visit Number: [id number] Discharge Date: ATTENTION: The Clinical Documentation Specialists (CDI) and [facility] Coding Staff appreciate your assistance in clarifying documentation. Please respond to the clarification below the line at the bottom and electronically sign. The CDI & [facility] Coding staff will review the response and follow-up if needed. Please note: Queries are made part of the Legal Health Record. If you have any questions, please contact the author of this message via ITS. Dr. Mony Jhaveri Please render your opinion on the clinical significance of the patients BUN/Creatinine/GFR levels. History/Risk Factors: Diabetes Mellitus, Hypertension Alzheimers dementia, 07/28/18 Baseline: BUN 42, CR 1.31, GFR 51 (in your ongoing progress notes starting 10/21 baseline Cr 1.2-1.5 July 2018) 10/21/19 BUN 34, Cr 2.18, GFR 32 Clinical Indicators: 79 year-old male present on 10/20 with confusion, elevated blood sugar. Nephrology consult for acute kidney injury and hyponatremia. Possible chronic kidney disease in documented and further clarification is requested. 10/28/19 Current: BUN 43, Cr 1.38 GFR 48 Treatment: 10/20 .9 Saline bolus x 3 10/21D51/2 normal saline with potassium supplementation running at 150 hr on initial admission (dc 10/22) 10/25 TPN (per orders) dc 10/27 Monitor electrolytes closely Aviod nephrotoxins Monitor renal function and urine output In order to capture the severity of condition, please clarify if the labs/clinical indicators signify: CKD Stage 1 (GFR > 90) CKD Stage 2 (GFR 60-89) CKD Stage 3 (GFR 30-59) CKD Stage 4 (GFR 15-29) CKD Stage 5 (GFR <15) Other, please specify Unable to determine (Last Revision: July 2019) Stage 3 MTDD
--- NOTE | 2019-10-29 10:10 | P.PN ---
<Jodie Garcia Melvin - Last Filed: 10/29/19 10:09> Subjective Progress Note Date: 10/29/19 CHIEF COMPLAINT: Sepsis HISTORY OF PRESENT ILLNESS: Patient examined in the intensive care. Patient remains on mechanical ventilation. Nursing reports patient is having bowel movements. Tube feedings are infusing at 50 mL an hour. Patient's goal is 70 mL. He is tolerating well with minimal residuals. PHYSICAL EXAM: VITAL SIGNS: Reviewed GENERAL: Well-developed in no acute distress. HEENT: No sclera icterus. Extraocular movements grossly intact. Moist buccal mucosa. Head is atraumatic, normocephalic. No nasal drainage. NECK: Supple without lymphadenopathy. CHEST: Non-labored respirations and equal bilateral excursions. CARDIOVASCULAR: Regular rate with regular rhythm. Palpable 2+ radial pulses. ABDOMEN: Soft. Nondistended. Nontender. NG tube noted with tube feeding infusing. MUSCULOSKELETAL: No clubbing or cyanosis. NEUROLOGIC: Remains on mechanical ventilation PSYCH: Remains on mechanical ventilation. Sedation has been turned off. SKIN: Well perfused. Good skin turgor. ASSESSMENT: 1. Abnormal computed tomography scan with small bowel distention, resolving PLAN: Continue tube feedings as tolerated. Advance per dietary recommendations. Nurse practitioner note has been reviewed by physician. Signing provider agrees with the documented findings, assessment, and plan of care. Objective - Vital Signs Vital signs: Vital Signs Temp 98.6 F 10/29/19 08:00 Pulse 89 10/29/19 09:00 Resp 22 10/29/19 09:00 BP 94/49 10/29/19 09:00 Pulse Ox 98 10/29/19 09:00 Intake & Output 10/28/19 10/29/19 10/29/19 18:59 06:59 18:59 Intake Total 8836.602 4907.664 205.287 Output Total 1305 1005 205 Balance 650.055 901.664 0.287 Weight 84 kg 86.6 kg Intake: IV 512 1175 54 .9 Sodium Chloride @ 10ml 270 310 40 /hr Dextrose 5% in Water 1, 50 000 ml @ 25 mls/hr IV . Q24H [facility] Rx#:[id number] Fat Emulsion 20% 250 ml @ 120 20.833 mls/hr IV DAILY@ 1500 [facility] Rx#:[id number] Piperacillin-Tazobactam 3 200 .375 gm In Sodium Chloride 0.9% 100 ml @ 25 mls/hr IVPB Q8H [facility] Rx#: [id number] Potassium Phosphate 10 500 mmol In Sodium Chloride 0 .9% 250 ml @ 125 mls/hr IV Q2H [facility] Rx#:[id number] Pressure Bag 72 65 9 Sodium Chloride 0.9% 150 5 ml @ 0.03 UNITS/MIN 4.59 mls/hr IV .Q24H [facility] with Vasopressin 60 unit Rx#: [id number] metroNIDAZOLE-NS PMX 500 100 mg In Saline 1 100ml.bag @ 100 mls/hr IVPB Q8HR [facility] Rx#:[id number] Intake, IV Titration 1053.055 151.664 1.287 Amount ACETAMINOPHEN IV (For NPO 400 ) 1,000 mg In Empty Bag 1 bag @ 400 mls/hr IVPB Q6HR PRN Rx#:[id number] Insulin Regular 100 unit 185.782 122.075 0 In Sodium Chloride 0.9% 100 ml @ Per Protocol IV .Q0M [facility] Rx#:[id number] Midazolam HCl 50 mg In 30.933 Sodium Chloride 0.9% 40 ml @ 1 MG/HR 1 mls/hr IV .Q24H [facility] Rx#:[id number] Norepinephrine 32 mg In 36.340 29.589 1.287 Sodium Chloride 0.9% 218 ml @ 0.42 MCG/KG/MIN 14. 805 mls/hr IV .[id number] [facility] Rx#:[id number] Piperacillin-Tazobactam 3 200 .375 gm In Sodium Chloride 0.9% 100 ml @ 25 mls/hr IVPB Q8H [facility] Rx#: [id number] Potassium Phosphate 10 100 mmol In Sodium Chloride 0 .9% 100 ml @ 50 mls/hr IV Q2H [facility] Rx#:[id number] metroNIDAZOLE-NS PMX 500 100 mg In Saline 1 100ml.bag @ 100 mls/hr IVPB Q8HR [facility] Rx#:[id number] Tube Feeding 390 490 150 Other 90 Output: Urine 1305 1005 205 Other: Voiding Method Indwelling Catheter Indwelling Catheter Indwelling Catheter # Voids 50 ABP, PAP, CO, CI - Last Documented Arterial Blood Pressure 116/42 - Labs CBC & Chem 7: 10/29/19 04:00 10/29/19 04:00 Labs: Abnormal Lab Results - Last 24 Hours (Table) 10/28/19 10/28/19 10/28/19 Range/Units 10:46 11:47 12:50 WBC 12.7 H (3.8-10.6) k/uL RBC 2.88 L (4.30-5.90) m/uL Hgb 9.4 L (13.0-17.5) gm/dL Hct 30.1 L (39.0-53.0) % MCV 104.4 H (80.0-100.0) fL Neutrophils # 11.4 H (1.3-7.7) k/uL Lymphocytes # 0.6 L (1.0-4.8) k/uL ABG pCO2 (35-45) mmHg ABG pO2 (83-108) mmHg Sodium (137-145) mmol/L Chloride (98-107) mmol/L BUN (9-20) mg/dL Creatinine (0.66-1.25) mg/dL Glucose (74-99) mg/dL POC Glucose (mg/dL) 195 H 184 H (75-99) mg/dL Calcium (8.4-10.2) mg/dL Phosphorus (2.5-4.5) mg/dL ALT (4-49) U/L Total Protein (6.3-8.2) g/dL Albumin (3.5-5.0) g/dL 10/28/19 10/28/19 10/28/19 Range/Units 12:56 14:07 15:00 WBC (3.8-10.6) k/uL RBC (4.30-5.90) m/uL Hgb (13.0-17.5) gm/dL Hct (39.0-53.0) % MCV (80.0-100.0) fL Neutrophils # (1.3-7.7) k/uL Lymphocytes # (1.0-4.8) k/uL ABG pCO2 (35-45) mmHg ABG pO2 (83-108) mmHg Sodium (137-145) mmol/L Chloride (98-107) mmol/L BUN (9-20) mg/dL Creatinine (0.66-1.25) mg/dL Glucose (74-99) mg/dL POC Glucose (mg/dL) 177 H 152 H 118 H (75-99) mg/dL Calcium (8.4-10.2) mg/dL Phosphorus (2.5-4.5) mg/dL ALT (4-49) U/L Total Protein (6.3-8.2) g/dL Albumin (3.5-5.0) g/dL 10/28/19 10/28/19 10/28/19 Range/Units 15:59 18:00 18:51 WBC (3.8-10.6) k/uL RBC (4.30-5.90) m/uL Hgb (13.0-17.5) gm/dL Hct (39.0-53.0) % MCV (80.0-100.0) fL Neutrophils # (1.3-7.7) k/uL Lymphocytes # (1.0-4.8) k/uL ABG pCO2 (35-45) mmHg ABG pO2 (83-108) mmHg Sodium (137-145) mmol/L Chloride (98-107) mmol/L BUN (9-20) mg/dL Creatinine (0.66-1.25) mg/dL Glucose (74-99) mg/dL POC Glucose (mg/dL) 107 H 137 H 116 H (75-99) mg/dL Calcium (8.4-10.2) mg/dL Phosphorus (2.5-4.5) mg/dL ALT (4-49) U/L Total Protein (6.3-8.2) g/dL Albumin (3.5-5.0) g/dL 10/28/19 10/28/19 10/28/19 Range/Units 20:42 21:38 22:47 WBC (3.8-10.6) k/uL RBC (4.30-5.90) m/uL Hgb (13.0-17.5) gm/dL Hct (39.0-53.0) % MCV (80.0-100.0) fL Neutrophils # (1.3-7.7) k/uL Lymphocytes # (1.0-4.8) k/uL ABG pCO2 (35-45) mmHg ABG pO2 (83-108) mmHg Sodium (137-145) mmol/L Chloride (98-107) mmol/L BUN (9-20) mg/dL Creatinine (0.66-1.25) mg/dL Glucose (74-99) mg/dL POC Glucose (mg/dL) 104 H 102 H 138 H (75-99) mg/dL Calcium (8.4-10.2) mg/dL Phosphorus (2.5-4.5) mg/dL ALT (4-49) U/L Total Protein (6.3-8.2) g/dL Albumin (3.5-5.0) g/dL 10/29/19 10/29/19 10/29/19 Range/Units 00:03 01:03 02:04 WBC (3.8-10.6) k/uL RBC (4.30-5.90) m/uL Hgb (13.0-17.5) gm/dL Hct (39.0-53.0) % MCV (80.0-100.0) fL Neutrophils # (1.3-7.7) k/uL Lymphocytes # (1.0-4.8) k/uL ABG pCO2 (35-45) mmHg ABG pO2 (83-108) mmHg Sodium (137-145) mmol/L Chloride (98-107) mmol/L BUN (9-20) mg/dL Creatinine (0.66-1.25) mg/dL Glucose (74-99) mg/dL POC Glucose (mg/dL) 190 H 194 H 172 H (75-99) mg/dL Calcium (8.4-10.2) mg/dL Phosphorus (2.5-4.5) mg/dL ALT (4-49) U/L Total Protein (6.3-8.2) g/dL Albumin (3.5-5.0) g/dL 10/29/19 10/29/19 10/29/19 Range/Units 03:01 03:54 04:00 WBC (3.8-10.6) k/uL RBC (4.30-5.90) m/uL Hgb (13.0-17.5) gm/dL Hct (39.0-53.0) % MCV (80.0-100.0) fL Neutrophils # (1.3-7.7) k/uL Lymphocytes # (1.0-4.8) k/uL ABG pCO2 (35-45) mmHg ABG pO2 (83-108) mmHg Sodium 146 H (137-145) mmol/L Chloride 118 H (98-107) mmol/L BUN 45 H (9-20) mg/dL Creatinine 1.30 H (0.66-1.25) mg/dL Glucose 116 H (74-99) mg/dL POC Glucose (mg/dL) 146 H 113 H (75-99) mg/dL Calcium 7.2 L (8.4-10.2) mg/dL Phosphorus 1.7 L (2.5-4.5) mg/dL ALT 68 H (4-49) U/L Total Protein 4.2 L (6.3-8.2) g/dL Albumin 1.7 L (3.5-5.0) g/dL 10/29/19 10/29/19 10/29/19 Range/Units 04:00 05:11 05:59 WBC 14.2 H (3.8-10.6) k/uL RBC 2.86 L (4.30-5.90) m/uL Hgb 9.5 L (13.0-17.5) gm/dL Hct 29.8 L (39.0-53.0) % MCV 104.4 H (80.0-100.0) fL Neutrophils # (1.3-7.7) k/uL Lymphocytes # (1.0-4.8) k/uL ABG pCO2 (35-45) mmHg ABG pO2 (83-108) mmHg Sodium (137-145) mmol/L Chloride (98-107) mmol/L BUN (9-20) mg/dL Creatinine (0.66-1.25) mg/dL Glucose (74-99) mg/dL POC Glucose (mg/dL) 153 H 148 H (75-99) mg/dL Calcium (8.4-10.2) mg/dL Phosphorus (2.5-4.5) mg/dL ALT (4-49) U/L Total Protein (6.3-8.2) g/dL Albumin (3.5-5.0) g/dL 10/29/19 10/29/19 10/29/19 Range/Units 06:48 07:46 08:07 WBC (3.8-10.6) k/uL RBC (4.30-5.90) m/uL Hgb (13.0-17.5) gm/dL Hct (39.0-53.0) % MCV (80.0-100.0) fL Neutrophils # (1.3-7.7) k/uL Lymphocytes # (1.0-4.8) k/uL ABG pCO2 33 L (35-45) mmHg ABG pO2 78 L (83-108) mmHg Sodium (137-145) mmol/L Chloride (98-107) mmol/L BUN (9-20) mg/dL Creatinine (0.66-1.25) mg/dL Glucose (74-99) mg/dL POC Glucose (mg/dL) 138 H 126 H (75-99) mg/dL Calcium (8.4-10.2) mg/dL Phosphorus (2.5-4.5) mg/dL ALT (4-49) U/L Total Protein (6.3-8.2) g/dL Albumin (3.5-5.0) g/dL Microbiology - Last 24 Hours (Table) 10/28/19 13:55 Gram Stain - Preliminary Sputum Sputum Culture - Preliminary 10/23/19 21:45 Blood Culture - Preliminary Blood No Growth after 120 hours 10/23/19 21:30 Blood Culture - Preliminary Blood No Growth after 120 hours 10/28/19 12:10 Urine Culture - Preliminary Urine,Catheterized <Bess Quintero N - Last Filed: 10/31/19 13:07> Subjective Patient seen and evaluated with nurse practitioner and agree with above. HISTORY OF PRESENT ILLNESS: The patient is a 79 year old male who presented with altered mental status changes, small bowel obstruction, liver shock, hypovolemic shock who has been on full mechanical ventilatory support. In the last 2-3 days, small bowel obstruction had resolved. He is currently on tube feeds. He is stooling. REVIEW OF ORGAN SYSTEMS: He had multiple bouts of fevers yesterday. Earlier, T- max 100.5. He is still on full mechanical support. He is off sedation. PHYSICAL EXAM: VITALS: Reviewed CONSTITUTIONAL: Well developed and in no acute distress. EYES: Conjuctivae without sclera icterus. HEAD, EARS, NOSE, THROAT: Moist buccal mucosa. Head is atraumatic, normocephalic. No nasal drainage. NECK: Supple. No thyroidomegaly. RESPIRATORY: Mechanical ventilation. No gross wheezes. CARDIOVASCULAR: Intermittent tachycardia. Extremities with edema. Palpable 2+ radial pulses. ABDOMEN: Soft. Mild distention. No peritonitis. MUSCULOSKELETAL: Toes cool to touch. No gross abnormalities. SKIN: Warm and well perfused with good skin turgor. NEUROLOGIC: Patient sedated. PSYCH: Patient sedated CLINCAL LABS: Reviewed. WBC elevated to over 14,000. RADIOLOGY: Chest x-ray report confirms bilateral pleural effusions, atelectasis versus pneumonia. ASSESSMENT: 1. Small bowel obstruction resolved 2. Abdominal aortic aneurysm 3. Uncontrolled diabetes type 2 with hyperglycemia 4. Lactic acidosis 5. Acute respiratory failure 6. Dementia PLAN: 1. Agree with tube feeds as described. 2. May benefit from C. diff study regarding diarrhea, fevers and elevated white count 3. Agree with neurology consultation Objective - Vital Signs Vital signs: Vital Signs Temp 98.1 F 10/31/19 12:00 Pulse 92 10/31/19 12:00 Resp 26 H 10/31/19 12:00 BP 123/57 10/31/19 12:00 Pulse Ox 98 10/31/19 12:00 Intake & Output 10/30/19 10/31/19 10/31/19 18:59 06:59 18:59 Intake Total 2663.725 3037.237 1488 Output Total 2170 1850 550 Balance 555.375 1514.237 938 Weight 87.4 kg Intake: IV 269 256 178 .9 Sodium Chloride @ 10ml 130 120 60 /hr Piperacillin-Tazobactam 3 100 100 100 .375 gm In Sodium Chloride 0.9% 100 ml @ 25 mls/hr IVPB Q8H [facility] Rx#: [id number] Pressure Bag 39 36 18 Intake, IV Titration 414.725 431.237 150 Amount Amiodarone 300 mg In 250 250 Dextrose 5% in Water 250 ml @ 0.5 MG/MIN 25 mls/hr IV .Q10H [facility] Rx#: [id number] Insulin Regular 100 unit 64.725 81.237 In Sodium Chloride 0.9% 100 ml @ Per Protocol IV .Q0M [facility] Rx#:[id number] metroNIDAZOLE-NS PMX 500 100 100 150 mg In Saline 1 100ml.bag @ 100 mls/hr IVPB Q8HR [facility] Rx#:[id number] Tube Feeding 980 1050 560 Other 1000 1300 600 Output: Urine 2170 850 550 Stool 1000 Other: Voiding Method Indwelling Catheter Indwelling Catheter Indwelling Catheter # Voids 1 1 ABP, PAP, CO, CI - Last Documented Arterial Blood Pressure 156/57 - Labs CBC & Chem 7: 10/31/19 04:24 10/31/19 04:24 Labs: Abnormal Lab Results - Last 24 Hours (Table) 10/30/19 10/30/19 10/30/19 Range/Units 13:07 14:18 15:13 WBC (3.8-10.6) k/uL RBC (4.30-5.90) m/uL Hgb (13.0-17.5) gm/dL Hct (39.0-53.0) % MCV (80.0-100.0) fL Plt Count (150-450) k/uL Neutrophils # (Manual) (1.3-7.7) k/uL Lymphocytes # (Manual) (1.0-4.8) k/uL ABG pCO2 (35-45) mmHg ABG HCO3 (21-25) mmol/L ABG O2 Saturation (94-97) % Sodium (137-145) mmol/L Potassium (3.5-5.1) mmol/L Chloride (98-107) mmol/L Carbon Dioxide (22-30) mmol/L BUN (9-20) mg/dL Glucose (74-99) mg/dL POC Glucose (mg/dL) 208 H 194 H 129 H (75-99) mg/dL Calcium (8.4-10.2) mg/dL 10/30/19 10/30/19 10/30/19 Range/Units 16:10 16:58 17:57 WBC (3.8-10.6) k/uL RBC (4.30-5.90) m/uL Hgb (13.0-17.5) gm/dL Hct (39.0-53.0) % MCV (80.0-100.0) fL Plt Count (150-450) k/uL Neutrophils # (Manual) (1.3-7.7) k/uL Lymphocytes # (Manual) (1.0-4.8) k/uL ABG pCO2 (35-45) mmHg ABG HCO3 (21-25) mmol/L ABG O2 Saturation (94-97) % Sodium (137-145) mmol/L Potassium (3.5-5.1) mmol/L Chloride (98-107) mmol/L Carbon Dioxide (22-30) mmol/L BUN (9-20) mg/dL Glucose (74-99) mg/dL POC Glucose (mg/dL) 203 H 196 H 194 H (75-99) mg/dL Calcium (8.4-10.2) mg/dL 10/30/19 10/30/19 10/30/19 Range/Units 18:58 20:09 21:06 WBC (3.8-10.6) k/uL RBC (4.30-5.90) m/uL Hgb (13.0-17.5) gm/dL Hct (39.0-53.0) % MCV (80.0-100.0) fL Plt Count (150-450) k/uL Neutrophils # (Manual) (1.3-7.7) k/uL Lymphocytes # (Manual) (1.0-4.8) k/uL ABG pCO2 (35-45) mmHg ABG HCO3 (21-25) mmol/L ABG O2 Saturation (94-97) % Sodium (137-145) mmol/L Potassium (3.5-5.1) mmol/L Chloride (98-107) mmol/L Carbon Dioxide (22-30) mmol/L BUN (9-20) mg/dL Glucose (74-99) mg/dL POC Glucose (mg/dL) 190 H 201 H 185 H (75-99) mg/dL Calcium (8.4-10.2) mg/dL 10/30/19 10/30/19 10/31/19 Range/Units 21:57 22:59 00:06 WBC (3.8-10.6) k/uL RBC (4.30-5.90) m/uL Hgb (13.0-17.5) gm/dL Hct (39.0-53.0) % MCV (80.0-100.0) fL Plt Count (150-450) k/uL Neutrophils # (Manual) (1.3-7.7) k/uL Lymphocytes # (Manual) (1.0-4.8) k/uL ABG pCO2 (35-45) mmHg ABG HCO3 (21-25) mmol/L ABG O2 Saturation (94-97) % Sodium (137-145) mmol/L Potassium (3.5-5.1) mmol/L Chloride (98-107) mmol/L Carbon Dioxide (22-30) mmol/L BUN (9-20) mg/dL Glucose (74-99) mg/dL POC Glucose (mg/dL) 139 H 144 H 148 H (75-99) mg/dL Calcium (8.4-10.2) mg/dL 10/31/19 10/31/19 10/31/19 Range/Units 01:20 02:08 03:04 WBC (3.8-10.6) k/uL RBC (4.30-5.90) m/uL Hgb (13.0-17.5) gm/dL Hct (39.0-53.0) % MCV (80.0-100.0) fL Plt Count (150-450) k/uL Neutrophils # (Manual) (1.3-7.7) k/uL Lymphocytes # (Manual) (1.0-4.8) k/uL ABG pCO2 (35-45) mmHg ABG HCO3 (21-25) mmol/L ABG O2 Saturation (94-97) % Sodium (137-145) mmol/L Potassium (3.5-5.1) mmol/L Chloride (98-107) mmol/L Carbon Dioxide (22-30) mmol/L BUN (9-20) mg/dL Glucose (74-99) mg/dL POC Glucose (mg/dL) 145 H 155 H 155 H (75-99) mg/dL Calcium (8.4-10.2) mg/dL 10/31/19 10/31/19 10/31/19 Range/Units 03:55 04:24 04:24 WBC 14.4 H (3.8-10.6) k/uL RBC 2.98 L (4.30-5.90) m/uL Hgb 9.8 L (13.0-17.5) gm/dL Hct 30.8 L (39.0-53.0) % MCV 103.5 H (80.0-100.0) fL Plt Count 467 H (150-450) k/uL Neutrophils # (Manual) 12.80 H (1.3-7.7) k/uL Lymphocytes # (Manual) 0.72 L (1.0-4.8) k/uL ABG pCO2 (35-45) mmHg ABG HCO3 (21-25) mmol/L ABG O2 Saturation (94-97) % Sodium 146 H (137-145) mmol/L Potassium 3.3 L (3.5-5.1) mmol/L Chloride 119 H (98-107) mmol/L Carbon Dioxide 21 L (22-30) mmol/L BUN 35 H (9-20) mg/dL Glucose 165 H (74-99) mg/dL POC Glucose (mg/dL) 149 H (75-99) mg/dL Calcium 7.3 L (8.4-10.2) mg/dL 10/31/19 10/31/19 10/31/19 Range/Units 04:57 06:10 06:55 WBC (3.8-10.6) k/uL RBC (4.30-5.90) m/uL Hgb (13.0-17.5) gm/dL Hct (39.0-53.0) % MCV (80.0-100.0) fL Plt Count (150-450) k/uL Neutrophils # (Manual) (1.3-7.7) k/uL Lymphocytes # (Manual) (1.0-4.8) k/uL ABG pCO2 (35-45) mmHg ABG HCO3 (21-25) mmol/L ABG O2 Saturation (94-97) % Sodium (137-145) mmol/L Potassium (3.5-5.1) mmol/L Chloride (98-107) mmol/L Carbon Dioxide (22-30) mmol/L BUN (9-20) mg/dL Glucose (74-99) mg/dL POC Glucose (mg/dL) 167 H 130 H 126 H (75-99) mg/dL Calcium (8.4-10.2) mg/dL 10/31/19 10/31/19 10/31/19 Range/Units 07:39 08:54 10:06 WBC (3.8-10.6) k/uL RBC (4.30-5.90) m/uL Hgb (13.0-17.5) gm/dL Hct (39.0-53.0) % MCV (80.0-100.0) fL Plt Count (150-450) k/uL Neutrophils # (Manual) (1.3-7.7) k/uL Lymphocytes # (Manual) (1.0-4.8) k/uL ABG pCO2 29 L (35-45) mmHg ABG HCO3 20 L (21-25) mmol/L ABG O2 Saturation 98.8 H (94-97) % Sodium (137-145) mmol/L Potassium (3.5-5.1) mmol/L Chloride (98-107) mmol/L Carbon Dioxide (22-30) mmol/L BUN (9-20) mg/dL Glucose (74-99) mg/dL POC Glucose (mg/dL) 183 H 223 H (75-99) mg/dL Calcium (8.4-10.2) mg/dL 10/31/19 10/31/19 Range/Units 11:05 11:59 WBC (3.8-10.6) k/uL RBC (4.30-5.90) m/uL Hgb (13.0-17.5) gm/dL Hct (39.0-53.0) % MCV (80.0-100.0) fL Plt Count (150-450) k/uL Neutrophils # (Manual) (1.3-7.7) k/uL Lymphocytes # (Manual) (1.0-4.8) k/uL ABG pCO2 (35-45) mmHg ABG HCO3 (21-25) mmol/L ABG O2 Saturation (94-97) % Sodium (137-145) mmol/L Potassium (3.5-5.1) mmol/L Chloride (98-107) mmol/L Carbon Dioxide (22-30) mmol/L BUN (9-20) mg/dL Glucose (74-99) mg/dL POC Glucose (mg/dL) 203 H 212 H (75-99) mg/dL Calcium (8.4-10.2) mg/dL Microbiology - Last 24 Hours (Table) 10/28/19 14:00 Blood Culture - Preliminary Blood No Growth after 48 hours 10/28/19 13:55 Gram Stain - Final Sputum Sputum Culture - Final Layne albicans Assessment and Plan (1) Hyponatremia Current Visit: Yes Status: Acute Code(s): E87.1 - HYPO-OSMOLALITY AND HYPONATREMIA SNOMED Code(s): 70971128 (2) Hyperkalemia Current Visit: Yes Status: Acute Code(s): E87.5 - HYPERKALEMIA SNOMED Code(s): 01361074 (3) Sigmoid diverticulitis Current Visit: Yes Status: Acute Code(s): K57.32 - DVTRCLI OF LG INT W/O PERFORATION OR ABSCESS W/O BLEEDING SNOMED Code(s): 374438945 (4) Dynamic ileus Current Visit: Yes Status: Acute Code(s): K56.7 - ILEUS, UNSPECIFIED SNOMED Code(s): 16581290 (5) Hyperosmolar syndrome Current Visit: Yes Status: Acute Code(s): E87.0 - HYPEROSMOLALITY AND HYPERNATREMIA SNOMED Code(s): 41047347 (6) Hyperosmolarity due to secondary diabetes mellitus Current Visit: Yes Status: Acute Code(s): E13.00 - OTH DIAB W HYPROSM W/O NONKET HYPRGLY-HYPROS COMA ([facility]) SNOMED Code(s): 03428652 (7) Altered mental state Current Visit: No Status: Acute Code(s): R41.82 - ALTERED MENTAL STATUS, UNSPECIFIED SNOMED Code(s): 476099589 (8) Dementia Current Visit: No Status: Acute Code(s): F03.90 - UNSPECIFIED DEMENTIA WITHOUT BEHAVIORAL DISTURBANCE SNOMED Code(s): 19254539 (9) Renal insufficiency syndrome Current Visit: No Status: Acute Code(s): N28.9 - DISORDER OF KIDNEY AND URETER, UNSPECIFIED SNOMED Code(s): 271819051 (10) Shock liver Current Visit: Yes Status: Acute Code(s): K72.00 - ACUTE AND SUBACUTE HEPATIC FAILURE WITHOUT COMA SNOMED Code(s): 416519756 (11) Sepsis Current Visit: Yes Status: Acute Code(s): A41.9 - SEPSIS, UNSPECIFIED ORGANISM SNOMED Code(s): 16542739
[2019-10-29 10:29] LABS: Glucose,Whole Blood 210 mg/dL (75-99)
[2019-10-29 11:30] LABS: Glucose,Whole Blood 209 mg/dL (75-99)
--- NOTE | 2019-10-29 13:21 | P.PN ---
Subjective Progress Note Date: 10/29/19 Principal diagnosis: Hypovolemic shock, possible septic shock secondary to abdominal sepsis. 80-year-old male patient known history of dementia, diabetes hypertension osteoarthritis in addition to abdominal aortic aneurysm, presented to the ED with altered mentation and severe dehydration. The patient's was noted to have elevated blood sugars at home which prompted this hospital visit. He was unable to provide any history at time of admission. He was confused and disoriented and his condition was progressively getting worse over this past few weeks. He apparently had generalized weakness, falls, and he was not seeking any medical attention. He has Alzheimer's dementia. His has Alzheimer's dementia also. Apparently his oral intake has been minimal and the patient was drinking only 4 L of soda on a daily basis. He has been noncompliant his diabetic medications also. A blood sugar of more than 1800. Sodium was 116. Potassium was 5.7 with a chloride of 74 and a serum bicarbonate 8 with an anion gap of 34. Creatinine was 2.4 with a BUN of 33. The serum lactate was 11.7. Troponin was 0.8. Phosphorus was 8.8. Lipase was 229. UA showed +4 glucose and the serum acetone was negative. The patient received a total of 4 L of IV fluids in the emergency department. He was started on an insulin drip. Currently the patient is on half-normal saline with 20 mEq of potassium. The patient metabolic acidosis improving. Based on the follow-up blood gases the pH was 7.0 and septal 7.13. Serum bicarb is also on the rise. The serum pCO2 is 26. Troponin 38. This was done and FiO2 of 36%. Sodium level improved and septal 131 and a potassium level is at 3.8. Anion gap is improving is down to 28. Creatinine is still at 2.1. Most recent blood sugar shows that the sugar is still elevated above 600 with a serum measurement of 1230. The chest x-ray shows some subsegmental atelectasis in the right lower lobe. CAT scan of the brain shows no evidence of any acute hemorrhage. There is some degenerative changes and nonspecific white matter changes consistent with remote ischemia. EKG showing sinus tachycardia along with Q waves over the anteroseptal leads consistent with an old infarct. Heart rate is around 102. On today's evaluation of 10/22/2019, the patient is still lethargic and somnolent and encephalopathic. He is unable to volunteer any history. He has dementia. Furthermore there has been significant metabolic disturbances, leading to his impaired mentation. In terms of his blood sugar control, the patient has been on insulin drip at 3 units an hour. His IV fluids have been running in the form of D5 half-normal saline along with 20 mEq of potassium at the rate of 150 mL an hour. The patient was receiving another 2 L of IV fluid bolus based on the fact that it looks quite dry with very dry mucosal membranes on today's evaluation. In terms of his blood sugar control, the blood sugar was steadily going down and after the blood sugar went down below 300 was switched him to a D5 half-normal saline solution. His anion gap is at 10. The serum bicarb is at 18. His lactic acid level has dropped down to 6.0. His troponin peaked at 2.2. Denies having any chest pain. Note that his based on troponin was at 0.8. His EKG showed old Q-wave changes over the anteroseptal leads and echocardiac Tito was done today and the patient was found to have a ejection fraction estimated to be around 30-35% along with anteroseptal and apical hypokinesis. No evidence of an aortic valve stenosis. Unable to estimate the right-sided pressures. Unable to have a good visualization of the rest of the valves. His white cell count of 15.4. His antibiotic coverage includes a combination of Rocephin and Zithromax and Diflucan for now. There is some erythema along the penile tip and the Maradiaga catheter is in place. Repeat chest x-ray from today shows atelectatic changes in the right lower lobe. No other significant abnormalities have been noted. The patient is currently on 4 L of oxygen by nasal cannula with a pulse ox of 98%. He still has some underlying sinus tachycardia. On today's evaluation of 10/23/2019 the patient's condition decompensated. I have already contacted the son and updated them on his father's condition. Note that by yesterday afternoon, the patient became progressively more restless, agitated, shortness of breath, and he was also indicating the possibility of abdominal distention and pain. He was hard to communicate with him as the patient was not providing any meaningful information and he was altered mentally. Nevertheless, we suspected that the patient was having increased abdominal pain and discomfort. At that point, decided to insert an NG tube and immediately approximately a liter of gastric juice was obtained as a return. Abdomen remained quite tender and distended. At that point, the patient was also becoming more hypotensive. He was given more IV fluids. He was intubated and placed on a mechanical ventilator. Post intubation, the patient became hypotensive and he was started on IV pressors. Blood gases was noted. Chest x- ray was noted. The patient was developing a right lower lobe pulmonary infiltration. He was taken down for a CAT scan of the abdomen and pelvis and the CAT scan showed evidence of a infiltrate in the right lung base and fatty i nfiltration of the liver and some multiple calcified gallstones and the bile ducts were not dilated. At the same time, the CAT scan showed a fusiform 4.4 cm lower abdominal aortic aneurysm. There was no evidence of any retroperitoneal lymphadenopathy. There was multiple diverticula in the sigmoid colon and multiple dilated air fluid filled loops of the small bowel and the small bowel was dilated up to 4 cm in size. There was also mild wall thickening of the ascending colon. There was also minimal fat stranding around the sigmoid colon. There was osteoarthritis of the right hip. Antibiotics were modified and the patient was started on IV Zosyn. This morning, the patient is sedated with propofol at 20 g. This is to be switched to Versed at the patient's triglyceride level came up above 500. The patient is receiving IV fluids in the form of normal saline at rate of 100 mL an hour. His urine output is diminished and the patient's creatinine is at 2.5. The neck fluid balance over the past 24 hours has been +5.3 L. The patient is currently on norepinephrine infusion running at 0.4 mcg/kg per minute. The patient is also on insulin drip at 9 units an hour. Noted the blood sugar control is improved and the patient's lactic acid level was also improving it was down to 3.7. During the course of this treatment, the patient developed also a shock liver with elevated AST and ALT. He developed an acute kidney injury on top of his chronic kidney failure with a creatinine maxing at 2.7 down to 2.5. The patient is currently on a mechanical ventilator on assist control mode at the rate of 28 with tidal volume of 500 and FiO2 of 60% with a PEEP of 5. Morning blood gases showed a pH of 7.39 with a pCO2 of 26 and pO2 of 185. Morning chest x-ray showed right lower lobe pulmonary infiltration and subsequently a triple-lumen catheter was inserted and the supportive living catheter was inserted without any complications. Surgical consultation was also obtained regarding the abdominal findings. On 10/24/2019, the patient remains critically ill. The patient remains in shock and this is most likely a septic shock following an acute hypovolemic shock. The patient initially presented with HHS. Subsequently the patient started acting septic and the source is most likely the abdomen. The patient had a elevated TROPONIN level. Lactic acid levels were elevated and the patient had abdominal pain and distention. NG tube was inserted and a CAT scan of the abdomen was done that showed findings suggesting small bowel obstruction and some inflammatory changes involving the ascending colon and the sigmoid. Nevertheless, there was no evidence of any acute abdomen or pneumoperitoneum with ischemic bowel. The patient was kept on Zosyn and Flagyl was added. He did have difficulties with his hemodynamics and the patient was on and off becoming hypotensive and he was getting IV fluids to maintain a CVP above 10. The patient is currently receiving normal saline at the rate of 100 mL an hour. He is also on vasopressin at physiologic dose of 0.03 units per minute and the patient is on norepinephrine running at 0.38 g per KG per minute. Abdomen is still slightly distended and the patient is a bit tender and he can grimace upon abdominal [id number] white him being sedated with Versed which is running at 6 mg an hour. Gen. surgery will be asked to evaluate this patient. NG tube is in place and output over the past 24 hours has been in the order of 400 mL of gastric material. No bowel movements yet. He is having episodes of fever and the patient has had a temperature max of 11.1 and a temperature is down to 99.8. The patient had 2 additional sets of blood cultures sent patient was given a dose of vancomycin yesterday. This was done pending further cultures. Meanwhile, the patient remains on a mechanical ventilator. This morning, he remained on assist control mode with a tidal volume of 500 and FiO2 of 40% with a PEEP of 5. Chest x-ray is showing stable bilateral pulmonary infiltrates and atelectatic changes in lung bases. ET tube in good location so in the OG-tube. Her blood gases showed a pH of 7.39 with a pCO2 of 25 and pO2 of 67 and this was on above-mentioned ventilator setting. Lactic acid level is gradually dropped down to 3.0. The patient has shock liver. LFTs are considerably abnormal and the numbers are improving. AST is down to 2153 and ALT is down to 1107. As stated, neck yesterday dropped down to 3.2, the creatinine is still elevated at 2.2 with a BUN of 39 and the patient has a mild anion gap metabolic acidosis with a gap of 11 which is improved and his serum bicarbonate of 15. On today's evaluation of 10/25/2019, the patient remains critically ill. Remains intubated on a mechanical ventilator and remains sedated. On today's evaluation, he had an assist-control mode of ventilation and the patient is at the rate of 28 with a tidal volume of 500 and FiO2 of 50% with a PEEP of 5. The blood gases Show a pH of 7.51 with a pCO2 of 28 and pO2 of 65 and I think this is a essentially respiratory alkalosis as the patient's metabolic acidosis has recovered and the patient's serum bicarbonate was up to 22 while being given a bicarb infusion. The chest x-ray from today shows no significant interval change compared to yesterday's chest x-ray. There is a elevation of the right hemidiaphragm. The ET tube and NG tube remains in place. There is a left subclavian triple-lumen catheter in place. In my opinion, the patient remains quite septic. The patient is still having episodes of fever. The patient remains in shock and pressor dependent. Vasopressin is running at physiologic dose and the norepinephrine infusion has been drop down to 0.3 g per KG per minute. I had a discussion with the general surgeon and will going to continue the conservative approach. Patient is considered to be a high surgical risk for even exploration. Meanwhile, NG tube is in place and has drained approximately 900 mL of gastric material over the past 24 hours. Abdomen is slightly improved and less distended compared to yesterday. There is some mild direct tenderness without rebound tenderness. The patient is hypoactive in terms of his bowel sounds. Extremities abdomen is being done for a small bowel follow-through. The patient remains on insulin which is running at 2.5 units an hour for blood sugar control. The patient is on bicarb drip that he'll be taken off and this will decision to half-normal saline as the patient has also developed some hypernatremia. Serum bicarb is up to 21. He is having episodes of fever still. All of the repeat blood cultures came back negative. Hemoglobin is at 12.5. White cell count is at 10.7. Platelet count has dropped down to 94% is stable compared to yesterday. On 10/26/2019, the patient is currently being seen for a follow-up intubated on a mechanical ventilator in the intensive care unit. The patient remains sedated with Versed running at 6 mg an hour. While sedated and calm and comfortable and episodically requiring Dilaudid for pain control. He is on assist control rate of 22 with a tidal volume of 500 and FiO2 of 40% with a PEEP of 5. Blood gases showed a pH of 7.30 with a pCO2 of 32 and pO2 of 79 and the chest x-ray shows moderate-sized bilateral pleural effusions right more than left. ET tube is in a good location. NG tube is in good location. Output from the NG has slowed down and the patient is producing approximately 300-400 mL of NG output over the past 24 hours. The initial small bowel follow-through was consistent with small bowel obstruction as there was no passage of contrast past the jejunum. S ubsequent x-ray of the abdomen was done this morning and contrast has made it to the colon and as such there is probably there is no evidence of anatomic obstruction and this could be essentially an ileus. The patient remains nothing by mouth. The patient will be started on TPN for nutritional support. White cell count of 9.6. The sodium is at 149. BNP is 44 with a creatinine of 1.8 which is improved compared to yesterday. Most recent lactic acid level is down to 2.8. The patient was a shock liver and the AST/ALT levels are also improving based on yesterday's lab. No significant fever episodes since yesterday evening and the patient is not spiking any further temperature. Cultures are negative and the patient remains on a combination of Zosyn and Flagyl. Patient was reevaluated today on 10/27/19, remains in the ICU, intubated and mechanically ventilated. Patient's ventilator settings are assist control rate of 22 tidal volume is 500, FiO2 is 40%, PEEP is 5. ABG showed a pO2 of 80 pCO2 of 34 pH of 7.44. His drips include IV fluid at D5W 50 mL/h, TPN, Versed at 2 mg per hour, insulin at 5 units per hour, vasopressin at 0.03 units per minute. He is also on norepinephrine. 13 mcg/kg/m. Patient remains on Flagyl and Zosyn for presumptive abdominal sepsis. His CVP today is 5. Patient did have a mucoid bowel movement last night. Chest x-ray shows bilateral pleural ef fusions, right more so than left. Labs today showed relatively normal CBC, WBC count is 10.1 hemoglobin is 10.4. Electrolytes are normal sodium is improving down to 147 BUN is 42 creatinine is 1.54. Pro-calcitonin remains elevated at 8.54. Liver enzymes are improving. Patient was reevaluated today on 10/28/19, remains in the ICU, intubated and mechanically ventilated. His ventilator settings are assist control rate of 22 tidal volume is 500 FiO2 is 40% PEEP is 5. ABG showed a pO2 of 76 pCO2 of 31 and pH of 7.44 patient is on multiple drips including TPN at 10 5 mL per hour, and I cut it down to 80 mL per hour. He is on D5W which I have discontinued. He is also on insulin 21 units per hour. Vasopressin at 0.03 units per minute. Norepinephrine at 0.03 mcg/kg/MIN. Renal functioning is improving. And his urine output seems to be about 100 mL per hour. Chest x-ray continues to show right lower lobe atelectasis, consolidation, and possibly a small right-sided pleural effusion. Patient is sedated, however I have instructed the nurses to hold Versed, and assess his mental status today. Patient remains on Versed at 2 mg per hour. CBC is basically unremarkable hemoglobin is 9.4 WBC count is 12.7. BUN is 43 creatinine 1.38, steadily improving. Potassium is a bit low at 3.4, being corrected as per protocol. Pro-calcitonin remains high, and his chest x- ray is suggestive of right lower lobe consolidation. Blood cultures and urine cultures remain negative so far. Reevaluated today on 10/29/19, patient remains in the ICU, intubated and mechanically ventilated. Patient is on assist control rate of 22 tidal volume is 500 FiO2 is 40% and PEEP is 5. ABG showed a pO2 of 78 pCO2 of 33 and pH of 7.40. Patient has been off sedation for the last 24 hours. He only received 2 doses of Dilaudid last night, and he is off propofol. Remains on vasopressin at 0.03 units per minute, he is off norepinephrine, and his blood pressures seems to be holding nicely. IV fluid is at KVO. Patient is now on enteral feeding and off TPN completely. Patient had some bloody mucoid bowel movement, and it could be tested for C. diff, chest x-ray continues to show stable bibasilar ate lectasis or airspace disease with pleural effusions/small . Labs were reviewed WBC count is 14.2 hemoglobin is 9.5 electrolytes are relatively normal except for slight elevated sodium of 146. BUN continues to improve it is 45 today, and creatinine is 1.30 better compared to the last few days. Last pro-calcitonin was 8.54. Objective - Vital Signs Vital signs: Vital Signs Temp 98.6 F 10/29/19 08:00 Pulse 99 10/29/19 12:00 Resp 29 H 10/29/19 12:00 BP 105/55 10/29/19 12:00 Pulse Ox 95 10/29/19 12:00 Intake & Output 10/28/19 10/29/19 10/29/19 18:59 06:59 18:59 Intake Total 8586.076 8442.664 527.287 Output Total 1305 1005 565 Balance 650.055 901.664 -37.713 Weight 84 kg 86.6 kg Intake: IV 512 1175 326 .9 Sodium Chloride @ 10ml 270 310 80 /hr Dextrose 5% in Water 1, 50 000 ml @ 25 mls/hr IV . Q24H [facility] Rx#:[id number] Fat Emulsion 20% 250 ml @ 120 20.833 mls/hr IV DAILY@ 1500 [facility] Rx#:[id number] Piperacillin-Tazobactam 3 200 100 .375 gm In Sodium Chloride 0.9% 100 ml @ 25 mls/hr IVPB Q8H [facility] Rx#: [id number] Potassium Phosphate 10 500 mmol In Sodium Chloride 0 .9% 250 ml @ 125 mls/hr IV Q2H [facility] Rx#:[id number] Pressure Bag 72 65 21 Sodium Chloride 0.9% 150 25 ml @ 0.03 UNITS/MIN 4.59 mls/hr IV .Q24H [facility] with Vasopressin 60 unit Rx#: [id number] metroNIDAZOLE-NS PMX 500 100 100 mg In Saline 1 100ml.bag @ 100 mls/hr IVPB Q8HR [facility] Rx#:[id number] Intake, IV Titration 1053.055 151.664 1.287 Amount ACETAMINOPHEN IV (For NPO 400 ) 1,000 mg In Empty Bag 1 bag @ 400 mls/hr IVPB Q6HR PRN Rx#:[id number] Insulin Regular 100 unit 185.782 122.075 0 In Sodium Chloride 0.9% 100 ml @ Per Protocol IV .Q0M [facility] Rx#:[id number] Midazolam HCl 50 mg In 30.933 Sodium Chloride 0.9% 40 ml @ 1 MG/HR 1 mls/hr IV .Q24H [facility] Rx#:[id number] Norepinephrine 32 mg In 36.340 29.589 1.287 Sodium Chloride 0.9% 218 ml @ 0.42 MCG/KG/MIN 14. 805 mls/hr IV .[id number] [facility] Rx#:[id number] Piperacillin-Tazobactam 3 200 .375 gm In Sodium Chloride 0.9% 100 ml @ 25 mls/hr IVPB Q8H [facility] Rx#: [id number] Potassium Phosphate 10 100 mmol In Sodium Chloride 0 .9% 100 ml @ 50 mls/hr IV Q2H [facility] Rx#:[id number] metroNIDAZOLE-NS PMX 500 100 mg In Saline 1 100ml.bag @ 100 mls/hr IVPB Q8HR [facility] Rx#:[id number] Tube Feeding 390 490 200 Other 90 Output: Urine 1305 1005 565 Other: Voiding Method Indwelling Catheter Indwelling Catheter Indwelling Catheter # Voids 50 ABP, PAP, CO, CI - Last Documented Arterial Blood Pressure 103/50 - Exam Physical Exam: Revealed an 79-year-old white male sedated, intubated, not responding to any deep painful stimuli. Head: Atraumatic, normocephalic. Endotracheal tube and orogastric tube are intact. HEENT:[Neck is supple.] [No neck masses.] [No thyromegaly.] [No JVD.] PERRLA, EOMI, no icterus, intact orogastric tube and endotracheal tube. Chest: [Symmetrical chest expansion, diminished breath sounds at the bases, no rhonchi and no wheezes.] Cardiac Exam: [Normal S1 and S2, no S3 gallop, no murmur.] Abdomen: [Flat, soft, nontender, positive bowel sounds. No rebound, no guarding.] Extremities: [No clubbing, 1+ bipedal edema and chronic venous stasis changes bilaterally. Chronic superficial ulcerations of lower extremities noted. Neurological Exam: Patient is comatose, on responsive to deep painful stimuli, pupils are equally reactive to light. Patient has been off propofol for the last 24 hours. Psychiatric: Could not be assessed. Skin: Superficial ulcerations lower extremities and chronic venous stasis changes. - Labs CBC & Chem 7: 10/29/19 04:00 10/29/19 04:00 Labs: Abnormal Lab Results - Last 24 Hours (Table) 10/28/19 10/28/19 10/28/19 Range/Units 12:50 14:07 15:00 WBC 12.7 H (3.8-10.6) k/uL RBC 2.88 L (4.30-5.90) m/uL Hgb 9.4 L (13.0-17.5) gm/dL Hct 30.1 L (39.0-53.0) % MCV 104.4 H (80.0-100.0) fL Neutrophils # 11.4 H (1.3-7.7) k/uL Lymphocytes # 0.6 L (1.0-4.8) k/uL ABG pCO2 (35-45) mmHg ABG pO2 (83-108) mmHg Sodium (137-145) mmol/L Chloride (98-107) mmol/L BUN (9-20) mg/dL Creatinine (0.66-1.25) mg/dL Glucose (74-99) mg/dL POC Glucose (mg/dL) 152 H 118 H (75-99) mg/dL Calcium (8.4-10.2) mg/dL Phosphorus (2.5-4.5) mg/dL ALT (4-49) U/L Total Protein (6.3-8.2) g/dL Albumin (3.5-5.0) g/dL 10/28/19 10/28/19 10/28/19 Range/Units 15:59 18:00 18:51 WBC (3.8-10.6) k/uL RBC (4.30-5.90) m/uL Hgb (13.0-17.5) gm/dL Hct (39.0-53.0) % MCV (80.0-100.0) fL Neutrophils # (1.3-7.7) k/uL Lymphocytes # (1.0-4.8) k/uL ABG pCO2 (35-45) mmHg ABG pO2 (83-108) mmHg Sodium (137-145) mmol/L Chloride (98-107) mmol/L BUN (9-20) mg/dL Creatinine (0.66-1.25) mg/dL Glucose (74-99) mg/dL POC Glucose (mg/dL) 107 H 137 H 116 H (75-99) mg/dL Calcium (8.4-10.2) mg/dL Phosphorus (2.5-4.5) mg/dL ALT (4-49) U/L Total Protein (6.3-8.2) g/dL Albumin (3.5-5.0) g/dL 10/28/19 10/28/19 10/28/19 Range/Units 20:42 21:38 22:47 WBC (3.8-10.6) k/uL RBC (4.30-5.90) m/uL Hgb (13.0-17.5) gm/dL Hct (39.0-53.0) % MCV (80.0-100.0) fL Neutrophils # (1.3-7.7) k/uL Lymphocytes # (1.0-4.8) k/uL ABG pCO2 (35-45) mmHg ABG pO2 (83-108) mmHg Sodium (137-145) mmol/L Chloride (98-107) mmol/L BUN (9-20) mg/dL Creatinine (0.66-1.25) mg/dL Glucose (74-99) mg/dL POC Glucose (mg/dL) 104 H 102 H 138 H (75-99) mg/dL Calcium (8.4-10.2) mg/dL Phosphorus (2.5-4.5) mg/dL ALT (4-49) U/L Total Protein (6.3-8.2) g/dL Albumin (3.5-5.0) g/dL 10/29/19 10/29/19 10/29/19 Range/Units 00:03 01:03 02:04 WBC (3.8-10.6) k/uL RBC (4.30-5.90) m/uL Hgb (13.0-17.5) gm/dL Hct (39.0-53.0) % MCV (80.0-100.0) fL Neutrophils # (1.3-7.7) k/uL Lymphocytes # (1.0-4.8) k/uL ABG pCO2 (35-45) mmHg ABG pO2 (83-108) mmHg Sodium (137-145) mmol/L Chloride (98-107) mmol/L BUN (9-20) mg/dL Creatinine (0.66-1.25) mg/dL Glucose (74-99) mg/dL POC Glucose (mg/dL) 190 H 194 H 172 H (75-99) mg/dL Calcium (8.4-10.2) mg/dL Phosphorus (2.5-4.5) mg/dL ALT (4-49) U/L Total Protein (6.3-8.2) g/dL Albumin (3.5-5.0) g/dL 10/29/19 10/29/19 10/29/19 Range/Units 03:01 03:54 04:00 WBC (3.8-10.6) k/uL RBC (4.30-5.90) m/uL Hgb (13.0-17.5) gm/dL Hct (39.0-53.0) % MCV (80.0-100.0) fL Neutrophils # (1.3-7.7) k/uL Lymphocytes # (1.0-4.8) k/uL ABG pCO2 (35-45) mmHg ABG pO2 (83-108) mmHg Sodium 146 H (137-145) mmol/L Chloride 118 H (98-107) mmol/L BUN 45 H (9-20) mg/dL Creatinine 1.30 H (0.66-1.25) mg/dL Glucose 116 H (74-99) mg/dL POC Glucose (mg/dL) 146 H 113 H (75-99) mg/dL Calcium 7.2 L (8.4-10.2) mg/dL Phosphorus 1.7 L (2.5-4.5) mg/dL ALT 68 H (4-49) U/L Total Protein 4.2 L (6.3-8.2) g/dL Albumin 1.7 L (3.5-5.0) g/dL 10/29/19 10/29/19 10/29/19 Range/Units 04:00 05:11 05:59 WBC 14.2 H (3.8-10.6) k/uL RBC 2.86 L (4.30-5.90) m/uL Hgb 9.5 L (13.0-17.5) gm/dL Hct 29.8 L (39.0-53.0) % MCV 104.4 H (80.0-100.0) fL Neutrophils # (1.3-7.7) k/uL Lymphocytes # (1.0-4.8) k/uL ABG pCO2 (35-45) mmHg ABG pO2 (83-108) mmHg Sodium (137-145) mmol/L Chloride (98-107) mmol/L BUN (9-20) mg/dL Creatinine (0.66-1.25) mg/dL Glucose (74-99) mg/dL POC Glucose (mg/dL) 153 H 148 H (75-99) mg/dL Calcium (8.4-10.2) mg/dL Phosphorus (2.5-4.5) mg/dL ALT (4-49) U/L Total Protein (6.3-8.2) g/dL Albumin (3.5-5.0) g/dL 10/29/19 10/29/19 10/29/19 Range/Units 06:48 07:46 08:07 WBC (3.8-10.6) k/uL RBC (4.30-5.90) m/uL Hgb (13.0-17.5) gm/dL Hct (39.0-53.0) % MCV (80.0-100.0) fL Neutrophils # (1.3-7.7) k/uL Lymphocytes # (1.0-4.8) k/uL ABG pCO2 33 L (35-45) mmHg ABG pO2 78 L (83-108) mmHg Sodium (137-145) mmol/L Chloride (98-107) mmol/L BUN (9-20) mg/dL Creatinine (0.66-1.25) mg/dL Glucose (74-99) mg/dL POC Glucose (mg/dL) 138 H 126 H (75-99) mg/dL Calcium (8.4-10.2) mg/dL Phosphorus (2.5-4.5) mg/dL ALT (4-49) U/L Total Protein (6.3-8.2) g/dL Albumin (3.5-5.0) g/dL 10/29/19 10/29/19 Range/Units 10:27 11:28 WBC (3.8-10.6) k/uL RBC (4.30-5.90) m/uL Hgb (13.0-17.5) gm/dL Hct (39.0-53.0) % MCV (80.0-100.0) fL Neutrophils # (1.3-7.7) k/uL Lymphocytes # (1.0-4.8) k/uL ABG pCO2 (35-45) mmHg ABG pO2 (83-108) mmHg Sodium (137-145) mmol/L Chloride (98-107) mmol/L BUN (9-20) mg/dL Creatinine (0.66-1.25) mg/dL Glucose (74-99) mg/dL POC Glucose (mg/dL) 210 H 209 H (75-99) mg/dL Calcium (8.4-10.2) mg/dL Phosphorus (2.5-4.5) mg/dL ALT (4-49) U/L Total Protein (6.3-8.2) g/dL Albumin (3.5-5.0) g/dL Microbiology - Last 24 Hours (Table) 10/28/19 13:55 Gram Stain - Preliminary Sputum Sputum Culture - Preliminary 10/23/19 21:45 Blood Culture - Preliminary Blood No Growth after 120 hours 10/23/19 21:30 Blood Culture - Preliminary Blood No Growth after 120 hours 10/28/19 12:10 Urine Culture - Preliminary Urine,Catheterized Assessment and Plan Assessment: Impression: Acute hypoxic respiratory failure secondary to hypovolemic and septic shock. Acute abdominal sepsis, small bowel ileus/obstruction, remains on Zosyn and Flagyl. Possible right lower lobe pneumonia, hospital-acquired or could be aspiration related. Acute hyperosmolar nonketotic diabetic syndrome with profound hypovolemia and volume depletion/dehydration. Acute kidney injury secondary to hypovolemia and possible septic shock with acute tubular necrosis. Improving. Altered mental status on presentation secondary to hyperosmolar nonketotic sta te. History of Alzheimer's dementia Type 2 diabetes Pseudohyponatremia on presentation secondary to severe hyperglycemia. 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 History of 4.6 cm distal abdominal aortic aneurysm and previous iliac stent the graft placement. Acute shock liver secondary to hypotension on presentation. Improving. History of ischemic cardiomyopathy and LV dysfunction, ejection fraction of 30%. Severe lactic acidosis on presentation most likely secondary to abdominal sepsis and ischemic bowel. Recommendation: Continue ventilatory support. Continue to hold sedatives and narcotics as much as possible CT of the brain is to be considered, his last CT was done about a week ago, and it was unremarkable. Neurological consultation. To assess mental status and his comatose state. Continue GI and DVT prophylaxis. Continue insulin. Continue antibiotics/Zosyn and Flagyl. Continue IV fluid at KVO. Continue enteral feeding, discontinue TPN. Overall prognosis is extremely poor and guarded. Critical care time is 35 minutes. We'll continue to follow Time with Patient: Greater than 30
[2019-10-29 13:52] LABS: Glucose,Whole Blood 176 mg/dL (75-99)
[2019-10-29 15:30] LABS: Glucose,Whole Blood 146 mg/dL (75-99)
--- NOTE | 2019-10-29 15:45 | PN ---
PROGRESS NOTE Patient is seen for followup for acute kidney injury. Patient's renal function has been improving. However, he is not waking up, after sedation has been held. Neurology consult has been placed. Patient continues to have good urine output. He has had some bowel movements which have been mucusy and slightly bloody. FiO2 remains at 40%. Patient is off of pressors. PHYSICAL EXAMINATION: Blood pressure was 103/50, heart rate 99 per minute, he is afebrile. Examination of the heart S1, S2. Examination of the lungs, bilateral breath sounds are heard. Abdomen is soft, nontender. Examination of the lower extremities shows edema 1+ bilaterally. [employer] exam cannot be performed. LABS: Show sodium 146, potassium 3.6, chloride 118, CO2 is 22, BUN 45, creatinine 1.3. ASSESSMENT: 1. Acute kidney injury, ATN currently improved. 2. Bowel obstruction, ileus with improvement and ongoing bowel movements. 3. Hypernatremia associated with free water deficit, improved. D5W has been discontinued. Patient is now maintained on tube feedings and the free water has been increased. 4. Hypoxic respiratory failure. Patient is maintained on the vent. 5. Encephalopathy. Patient has been off sedation with no improvement in mentation. Neurology has been consulted. 6. Acute hyperosmolar non ketotic diabetic state on admission, currently resolved. 7. Ischemic cardiomyopathy with ejection fraction 30%. PLAN: Continue the D5. Continue the free water down the feeding tube. Repeat labs in a.m. MMODL / IJN: [id number] /
[2019-10-29] MEDS ORDERED: AMIODARONE 360 MG in DEXTROSE 5% IN WATER 200 ML IV ONE ×2 (17:52)
[2019-10-29] MEDS ORDERED: DEXTROSE 5% IN WATER 100 ML with AMIODARONE 150 MG IV ONE (17:52)
[2019-10-29 17:57] LABS: Glucose,Whole Blood 133 mg/dL (75-99)
[2019-10-29 18:19] LABS: Calcium 7.2 mg/dL (8.4-10.2); Potassium 3.9 mmol/L (3.5-5.1)
[2019-10-29 18:46] LABS: Basophils # (A) 0.1 k/uL (0-0.2); Basophils % (A) 1 %; Eosinophils # (A) 0.1 k/uL (0-0.7); Eosinophils % (A) 1 %; HCT 31.6 % (39.0-53.0); HGB 10.1 gm/dL (13.0-17.5); Hypochromasia Moderate; Lymphocytes # (A) 0.9 k/uL (1.0-4.8); Lymphocytes % (A) 6 %; MCH 33.3 pg (25.0-35.0); MCHC 31.9 g/dL (31.0-37.0); MCV 104.4 fL (80.0-100.0); Macrocytosis Slight; Mean Platelet Volume 10.2; Monocytes # (A) 0.3 k/uL (0-1.0); Monocytes % (A) 2 %; Neutrophils # (A) 13.8 k/uL (1.3-7.7); Neutrophils % (A) 90 %; Platelet Count 320 k/uL (150-450); RBC 3.03 m/uL (4.30-5.90); RDW 14.1 % (11.5-15.5); WBC 15.4 k/uL (3.8-10.6)
[2019-10-29 19:59] LABS: Glucose,Whole Blood 164 mg/dL (75-99)
--- NOTE | 2019-10-29 19:59 | P.PN ---
Progress Note - Text Progress Note Date: 10/29/19 Interval history: 79-year-old male with PMH of diabetes mellitus on oral hypoglycemics, con pascual presents the ED for altered mentation. Apparently, patient was visited by his nurse who noted an extremely high blood glucose which prompted his hospital visit. Patient is altered and he is unable to provide any meaningful history. Majority of documentation was obtained from chart review and discussion with his son. Apparently, patient has been confused and disoriented which is progressive ly been worsening over the past 2 weeks. His son reports that the patient fell a week ago and did not seek medical attention. Patient lives with his who is suffering from advanced Alzheimer's dementia and is currently in hospice. According to the son, patient drinks 4 L of soda on a daily basis. Son reports that patient is noncompliant with her diabetic diet. In the ED, vital signs showed a T low of 97.5 Fahrenheit, pulse of 102, tachypnea with respiratory rate of 28, BP of 85/49 and 89% on room air. CBC showed leukocytosis of 11 and MCV of 124.1. ABG showed pH of 7, pCO2 19, bica rbonate of 8. CMP showed sodium of 116, potassium of 5.7, chloride of 74, bicarbonate of 8, BUN 33, creatinine 2.18, glucose greater than 1875. Troponin was 0.881 with EKG showing sinus tachycardia. Urinalysis shows 4+ glucose and trace blood. Acetone was negative. CT brain was negative for hemorrhage but showed slightly hyperdense left MCA compared to right. Chest x-ray showed possible right lower lobe infiltrate. Patient is admitted to ICU for sepsis, troponin elevation and diabetic ketoacidosis. Intubated. Patient developed ischemic hepatitis. Sepsis. Also developed bowel obstruction-that corrected on its own. today-ICU. Patient remains off sedation since yesterday. Taken off levo fed earlier today. Drips include vasopressin and insulin. 2 feeding at 50 mL an hour. Telemetry shows sinus rhythm. Nurse reports the stool more like a gel a bit of blood mucousy. Went into atrial fibrillation today. Started on IV amiodarone. Review of systems cannot be done patient intubated Active Medications Aspirin (Aspirin) 81 mg PO DAILY [facility] Last Admin: 10/29/19 08:21 Dose: Not Given Documented by: Chlorhexidine Gluconate (Peridex) 15 ml MUCOUS MEM BID [facility] Last Admin: 10/29/19 08:26 Dose: 15 ml Documented by: Heparin Sodium (Porcine) (Heparin) 5,000 unit SQ Q8HR [facility] Last Admin: 10/29/19 17:33 Dose: Not Given Documented by: Piperacillin Sod/Tazobactam (Sod 3.375 gm/ Sodium Chloride) 100 mls @ 25 mls/hr IVPB Q8H [facility] Last Admin: 10/29/19 11:20 Dose: 25 mls/hr Documented by: Midazolam HCl 50 mg/ Sodium (Chloride) 50 mls @ 1 mls/hr IV .Q24H [facility]; Protocol Last Admin: 10/29/19 08:27 Dose: Not Given Documented by: Norepinephrine Bitartrate 32 (mg/ Sodium Chloride) 250 mls @ 14.805 mls/hr IV .[id number] [facility]; Protocol Last Admin: 10/29/19 17:33 Dose: Not Given Documented by: Insulin Human Regular 100 unit (/ Sodium Chloride) 101 mls @ 0 mls/hr IV .Q0M [facility]; Protocol Last Admin: 10/29/19 18:22 Dose: 7.92 unit/hr, 8 mls/hr Documented by: Vasopressin 60 unit/ Sodium (Chloride) 153 mls @ 4.59 mls/hr IV .Q24H [facility] Last Admin: 10/29/19 03:49 Dose: 4.59 mls/hr Documented by: Metronidazole 500 mg/ IV (Solution) 100 mls @ 100 mls/hr IVPB Q8HR [facility] Last Admin: 10/29/19 18:06 Dose: 100 mls/hr Documented by: Sodium Chloride (Saline 0.9%) 500 mls @ 20 mls/hr IV .Q24H [facility] Last Admin: 10/29/19 08:26 Dose: 20 mls/hr Documented by: Amiodarone HCl 360 mg/ (Dextrose/Water) 200 mls @ 33.333 mls/hr IV .Q6H [facility]; Protocol Stop: 10/29/19 23:51 Last Admin: 10/29/19 18:09 Dose: 1 mg/min, 33.333 mls/hr Documented by: Amiodarone HCl 300 mg/ (Dextrose/Water) 250 mls @ 25 mls/hr IV .Q10H [facility]; Protocol Stop: 10/30/19 17:52 Miscellaneous Information (Pneumonia Protocol Utilized) 1 each PO ONCE PRN PRN Reason: Per Protocol Miscellaneous Information (Magnesium Per Protocol) 1 each MISCELLANE DAILY PRN; Protocol PRN Reason: Per Protocol Miscellaneous Information (Phosphorus Per Protocol) 1 each MISCELLANE DAILY PRN; Protocol PRN Reason: Per Protocol Miscellaneous Information (Potassium Per Protocol) 1 each MISCELLANE DAILY PRN; Protocol PRN Reason: Per Protocol Naloxone HCl (Narcan) 0.2 mg IV Q2M PRN PRN Reason: Opioid Reversal Nitroglycerin (Nitrostat) 0.4 mg SUBLINGUAL Q5M PRN PRN Reason: Chest Pain Pantoprazole Sodium (Protonix) 40 mg IV DAILY [facility] Last Admin: 10/29/19 08:26 Dose: 40 mg Documented by: On examination: VITAL SIGNS: 98.6, 93, 22, 100 and several 34, 97% on the ventilator GENERAL APPEARANCE: laying in bed, sedated, intubated. HEENT: Normal external appearance of nose and ear. Oral cavity -endotracheal tube, NG tube to suction EYES: Pupils equal. Conjunctiva normal. NECK: JVD unable to assess. Mass not palpable. RESPIRATORY: Respiratory effort increased. Lungs -decreased breath sounds CARDIOVASCULAR: First and second sounds normal. No edema. ABDOMEN: Soft. Liver and spleen not palpable. No tenderness. No mass palpable. PSYCHIATRY: unable to assess, patient sedated INVESTIGATIONS, reviewed in the clinical context: White count 15.4 hemoglobin 10.1 platelets 320 potassium 3.9 bun 45% creatinine 1.19 Previous testing: White count 11 hemoglobin 13.7 platelets 383 Sodium 116, bicarb 8, bun 33, creatinine 2.18 glucose 1875 troponin I 0.88 1 Rusty-19 PCR-not detected computed tomography scan of the brain without contrast-no acute degenerative ch anges Ultrasound kidney-limited exam 2-D echocardiogram-EF 30-35%, anteroseptal apical hypokinesia AST 3453, ALT 1264, computed tomography scan of the abdomen and pelvis without contrast-dilated multiple loops of small bowel some free fluid in the paracolic gutter bilateral lower lobe pulmonary infiltrates, fusiform 4.4 cm lower abdominal aortic aneurysm with aortoiliac endograft multiple diverticula of the sigmoid colon. Mild wall thickening of the ascending colon. Blood cultures from October 20-negative Abdominal x-ray-October 25--contrast has passed through to thecolon Assessment: -acute nonketotic hyperosmolar diabetes with severe hyperglycemia, POA -Acute small bowel obstruction, and distal jejunal clinically improved, NG tube suction discontinued.- tube feeding started -Acute hypoxic respiratory failure requiring mechanical ventilator support-slow to respond -Acute metabolic encephalopathy from above-slow to respond -Alzheimer's dementia -Pseudohyponatremia from severe hyperglycemia -4.4 cm distal abdominal aortic aneurysm with the endoluminal stent graft -Peripheral arterial disease -Acute shock liver secondary to hypotensive improving -Chronic congestive heart failure from systolic dysfunction EF 30-35% -Sepsis with septic shock, possible community acquired pneumonia -Metabolic encephalopathy likely due to the above -Non-ST elevation MO likely type II from demand ischemia, POA -Acute kidney injury likely ATN-some improvement -Possibly chronic kidney disease -essential hypertension -Pneumonia suspect gram-negative organism -New onset atrial fibrillation today uncontrolled Plan: -insulin drip, IV vasopressin, patient is off norepinephrine, and midazolam,. Also on IV Flagyl and IV Zosyn. TPN was discontinued yesterday.. Started on IV amiodarone
--- NOTE | 2019-10-29 20:32 | P.CNNES ---
History of Present Illness Consult date: 10/29/19 Reason for Consult: Not responding to being off sedation from ventilator. Chief complaint: Coma History of Present Illness: This is a new neurology consult requested for further advice and recommendations for an elderly 79-year-old gentleman who came in with acute nonketotic hyperosmolar diabetes with severe hyperglycemia and POA. This patient lives with his elderly who is in hospice. He has been the sole caregiver for her and according to the history his son reports he has been hav ing increasing episodes of altered mental status prior to admission. One week prior to admission he reportedly also fell. His son describes the diabetes is very poorly controlled, his father will drink excessive amounts of soda through the day. The patient required intubation and now is not responding to being off sedation. There is concern that the patient could have undergone anoxic brain injury. Review of his chart indicates that he had a computed tomography scan on admission which did not show any area of acute infarct but hyperdense sign possibly in the left MCA. No further imaging studies have been since this initial computed tomography scan. The current problems involve: Sepsis Troponin elevation,. Ischemic Hepatitis. Bowel obstruction which has converted on its own. Today he went into atrial fibrillation controlled. EEG was attempted today but there was excessive technical artifact that will be repeated tomorrow. 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 years ago, AAA-extending to the iliacs measuring 4.6 cm based on the previous computed tomography scan imaging, DJD,back pain, skin cancer, History of Any Multi-Drug Resistant Organisms: None Reported Date of last positivie culture/infection: None MDRO Source:: None Past Surgical History: Adenoidectomy, Joint Replacement, Tonsillectomy Additional Past Surgical History / Comment(s): left hip, left knee replaced, Past Anesthesia/Blood Transfusion Reactions: No Reported Reaction Past Psychological History: No Psychological Hx Reported Smoking Status: Former smoker Past Alcohol Use History: None Reported Past Drug Use History: None Reported - Past Family History Son(s) Additional Family Medical History / Comment(s): unable to obtain patient not good historian Mother Additional Family Medical History / Comment(s): unable to obtain patient not a good historian Medications and Allergies Home Medications Medication Instructions Recorded Confirmed Type DULoxetine HCL [Cymbalta] 60 mg PO DAILY 05/13/18 10/21/19 History Donepezil [Aricept] 5 mg PO HS #30 tab 05/15/18 10/21/19 Rx Cholecalciferol [Vitamin D3 (25 1,000 unit PO DAILY 07/27/18 10/21/19 History Mcg = 1000 Iu)] Lisinopril-Hctz 20-12.5 mg 1 tab PO BID 07/27/18 10/21/19 History [Zestoretic 20-12.5] Pantoprazole [Protonix] 40 mg PO DAILY #30 tablet.dr 07/28/18 10/21/19 Rx Cyanocobalamin (Vitamin B-12) 1,000 mcg PO DAILY 10/21/19 10/21/19 History [Vitamin B-12] Diclofenac Sodium [Voltaren Gel] 2 gram TOPICAL QID 10/21/19 10/21/19 History HYDROcodone/APAP 5-325MG [Stevens 1 tab PO TID PRN 10/21/19 10/21/19 History 5-325] Linagliptin [Tradjenta] 5 mg PO DAILY 10/21/19 10/21/19 History Pravastatin Sodium [Pravachol] 40 mg PO DAILY 10/21/19 10/21/19 History Zolpidem [Ambien] 5 mg PO HS PRN 10/21/19 10/21/19 History glipiZIDE [Glucotrol] 5 mg PO AC-BID 10/21/19 10/21/19 History metFORMIN HCL [metFORMIN HCL ER 500 mg PO BID 10/21/19 10/21/19 History Osmotic] Allergies Allergy/AdvReac Type Severity Reaction Status Date / Time amoxicillin [Amoxicillin] Allergy Nausea & Verified 10/21/19 20:36 Vomiting & Diarrhea morphine Allergy Unknown Verified 10/21/19 20:36 Physical Examination - Vital Signs Vital Signs: Vital Signs Temp Pulse Resp BP Pulse Ox 10/29/19 19:00 101 H 30 H 138/56 96 10/29/19 18:30 103 H 20 112/62 96 10/29/19 18:00 110 H 28 H 110/58 96 10/29/19 17:30 120 H 29 H 116/56 98 10/29/19 17:00 102 H 31 H 115/61 98 05/20/20 16:30 105 H 33 H 102/50 97 05/20/20 16:00 106 H 31 H 119/60 97 05/20/20 15:30 103 H 33 H 110/59 96 05/20/20 15:00 101 H 22 107/60 96 05/20/20 14:30 99 31 H 98/55 96 05/20/20 14:00 101 H 32 H 112/54 96 05/20/20 13:30 99 26 H 104/58 96 05/20/20 13:00 99 31 H 99/54 96 05/20/20 12:30 108 H 30 H 93/56 96 05/20/20 12:00 99 29 H 105/55 95 05/20/20 11:30 101 H 22 102/50 95 05/20/20 11:00 93 25 H 107/53 96 05/20/20 10:30 90 22 107/55 98 05/20/20 10:00 85 22 99/54 97 05/20/20 09:30 90 22 96/51 96 05/20/20 09:00 89 22 94/49 98 05/20/20 08:30 89 22 107/34 97 05/20/20 08:00 98.6 F 93 6 L 90/56 94 L 05/20/20 07:30 91 22 114/59 99 05/20/20 07:00 96 26 H 110/59 98 05/20/20 06:30 92 23 116/54 99 05/20/20 06:00 92 24 127/58 99 05/20/20 05:30 90 28 H 112/50 100 05/20/20 05:00 89 25 H 112/54 100 05/20/20 04:30 90 25 H 110/52 100 05/20/20 04:00 98.7 F 88 25 H 110/58 100 05/20/20 03:30 93 25 H 105/48 100 05/20/20 03:00 93 25 H 107/52 99 05/20/20 02:30 85 28 H 102/57 100 05/20/20 02:00 87 25 H 101/55 100 05/20/20 01:30 94 28 H 99/50 100 05/20/20 01:00 99 26 H 100/50 99 05/20/20 00:30 99 25 H 104/53 99 05/20/20 00:16 100 24 104/53 98 10/29/19 00:00 100.5 F H 98 25 H 117/63 99 10/28/19 23:30 100 27 H 116/65 99 10/28/19 23:00 95 22 96/51 98 10/28/19 22:30 92 22 102/56 98 10/28/19 22:00 90 22 98 10/28/19 21:30 98 40 H 98/53 10/28/19 21:00 84 24 113/54 97 10/28/19 20:30 84 25 H 115/53 98 Intake and Output 10/29/19 10/29/19 10/29/19 06:59 14:59 22:59 Intake Total 7694.631 3317.287 823.341 Output Total 705 705 370 Balance 802.325 458.287 453.341 Intake: IV 967 362 85 .9 Sodium Chloride @ 10ml 220 100 50 /hr Piperacillin-Tazobactam 3 100 100 .375 gm In Sodium Chloride 0.9% 100 ml @ 25 mls/hr IVPB Q8H INDU Rx#: [id number] Potassium Phosphate 10 500 mmol In Sodium Chloride 0 .9% 250 ml @ 125 mls/hr IV Q2H INDU Rx#:[id number] Pressure Bag 47 27 15 Sodium Chloride 0.9% 150 35 20 ml @ 0.03 UNITS/MIN 4.59 mls/hr IV .Q24H INDU with Vasopressin 60 unit Rx#: [id number] [id number]-NS PMX 500 100 100 mg In Saline 1 100ml.bag @ 100 mls/hr IVPB Q8HR INDU Rx#:[id number] Intake, IV Titration 110.325 1.287 88.341 Amount Insulin Regular 100 unit 93.896 0 88.341 In Sodium Chloride 0.9% 100 ml @ Per Protocol IV .Q0M INDU Rx#:[id number] Norepinephrine 32 mg In 16.429 1.287 Sodium Chloride 0.9% 218 ml @ 0.42 MCG/KG/MIN 14. 805 mls/hr IV .[id number] INDU Rx#:[id number] Tube Feeding 370 600 450 Other 60 200 200 Output: Urine 705 705 370 Other: Voiding Method Indwelling Catheter Indwelling Catheter Indwelling Catheter Weight 86.6 kg ABP, PAP, CO, CI - Last 8 Hours Arterial Blood Pressure 146/50 Arterial Blood Pressure 137/54 Arterial Blood Pressure 137/55 Arterial Blood Pressure 131/47 Arterial Blood Pressure 62/51 Arterial Blood Pressure 139/51 Arterial Blood Pressure 121/50 Arterial Blood Pressure 137/56 Arterial Blood Pressure 127/52 Arterial Blood Pressure 121/50 Arterial Blood Pressure 109/49 Arterial Blood Pressure 131/51 Arterial Blood Pressure 68/56 Arterial Blood Pressure 100/50 Examination: 1. No withdrawal to tactile stimulation. 2. Grimacing noted with infrequent eye twitching when the endotracheal tube was moved around and suctioning occurred. 3. Pupils are asymmetric 3 mm on the right 2 mm on the left minimally reactive to light 4. Severely diminished gag reflex 5. No corneal eye reflex noted. 6. Absent deep tendon reflexes. 7. Plantar response mute bilaterally. No ankle clonus is elicited. 8. +2 nonpitting edema noted in the hands bilaterally. MONTY COMA SCALE (3) Eye opening response: No response (one point) Verbal response: No response (one point) Motor response: No response (one point) Results - Laboratory Findings CBC and BMP: 10/29/19 17:55 10/29/19 17:55 Abnormal Lab Findings: Abnormal Labs 10/21/19 10/21/19 10/21/19 14:00 14:00 14:00 WBC 11.0 H RBC 4.23 L Hgb Hct MCV 124.1 H MCHC 26.2 L Plt Count Neutrophils # 10.0 H Neutrophils # (Manual) Lymphocytes # 0.4 L Lymphocytes # (Manual) Metamyelocytes # (Man) Nucleated RBCs Macrocytosis Marked A ABG pH ABG pCO2 ABG pO2 ABG HCO3 ABG Total CO2 ABG O2 Saturation ABG Lactic Acid VBG pH VBG pCO2 VBG HCO3 Sodium 116 L* Potassium 5.7 H Chloride 74 L* Carbon Dioxide 8 L* BUN 33 H Creatinine 2.18 H Glucose >1875 H* POC Glucose (mg/dL) Hemoglobin A1c Plasma Lactic Acid Fredrick Calcium Phosphorus Magnesium AST ALT Alkaline Phosphatase Total Creatine Kinase CK-MB (CK-2) Troponin I 0.881 H* Total Protein Albumin Triglycerides HDL Cholesterol Procalcitonin Urine Glucose (UA) Urine Blood Urine Bacteria Urine Mucus 10/21/19 10/21/19 10/21/19 14:00 14:02 14:34 WBC RBC Hgb Hct MCV MCHC Plt Count Neutrophils # Neutrophils # (Manual) Lymphocytes # Lymphocytes # (Manual) Metamyelocytes # (Man) Nucleated RBCs Macrocytosis ABG pH ABG pCO2 ABG pO2 ABG HCO3 ABG Total CO2 ABG O2 Saturation ABG Lactic Acid VBG pH VBG pCO2 VBG HCO3 Sodium Potassium Chloride Carbon Dioxide BUN Creatinine Glucose POC Glucose (mg/dL) >600 H Hemoglobin A1c Plasma Lactic Acid Fredrick Calcium Phosphorus 8.8 H Magnesium AST ALT Alkaline Phosphatase Total Creatine Kinase CK-MB (CK-2) Troponin I Total Protein Albumin Triglycerides HDL Cholesterol Procalcitonin Urine Glucose (UA) 4+ H Urine Blood Trace H Urine Bacteria Rare H Urine Mucus Rare H 10/21/19 10/21/19 10/21/19 14:34 15:06 15:25 WBC RBC Hgb Hct MCV MCHC Plt Count Neutrophils # Neutrophils # (Manual) Lymphocytes # Lymphocytes # (Manual) Metamyelocytes # (Man) Nucleated RBCs Macrocytosis ABG pH 7.00 L* ABG pCO2 19 L* ABG pO2 125 H ABG HCO3 5 L* ABG Total CO2 5 L ABG O2 Saturation ABG Lactic Acid VBG pH 7.03 L* VBG pCO2 31 L VBG HCO3 8 L* Sodium Potassium Chloride Carbon Dioxide BUN Creatinine Glucose POC Glucose (mg/dL) >600 H Hemoglobin A1c Plasma Lactic Acid Fredrick Calcium Phosphorus Magnesium AST ALT Alkaline Phosphatase Total Creatine Kinase CK-MB (CK-2) Troponin I Total Protein Albumin Triglycerides HDL Cholesterol Procalcitonin Urine Glucose (UA) Urine Blood Urine Bacteria Urine Mucus 10/21/19 10/21/19 10/21/19 16:02 16:48 18:06 WBC RBC Hgb Hct MCV MCHC Plt Count Neutrophils # Neutrophils # (Manual) Lymphocytes # Lymphocytes # (Manual) Metamyelocytes # (Man) Nucleated RBCs Macrocytosis ABG pH ABG pCO2 ABG pO2 ABG HCO3 ABG Total CO2 ABG O2 Saturation ABG Lactic Acid VBG pH VBG pCO2 VBG HCO3 Sodium 129 L Potassium Chloride 96 L Carbon Dioxide 6 L* BUN 30 H Creatinine 1.91 H Glucose 1509 H* POC Glucose (mg/dL) >600 H >600 H Hemoglobin A1c Plasma Lactic Acid Fredrick Calcium 7.9 L Phosphorus Magnesium AST ALT Alkaline Phosphatase Total Creatine Kinase CK-MB (CK-2) Troponin I Total Protein Albumin Triglycerides HDL Cholesterol Procalcitonin Urine Glucose (UA) Urine Blood Urine Bacteria Urine Mucus 10/21/19 10/21/19 10/21/19 18:20 18:30 19:23 WBC RBC Hgb Hct MCV MCHC Plt Count Neutrophils # Neutrophils # (Manual) Lymphocytes # Lymphocytes # (Manual) Metamyelocytes # (Man) Nucleated RBCs Macrocytosis ABG pH 7.13 L* ABG pCO2 26 L ABG pO2 138 H ABG HCO3 8 L* ABG Total CO2 9 L ABG O2 Saturation 98.8 H ABG Lactic Acid VBG pH VBG pCO2 VBG HCO3 Sodium 131 L Potassium Chloride 95 L Carbon Dioxide 8 L* BUN 30 H Creatinine 2.10 H Glucose 1422 H* POC Glucose (mg/dL) Hemoglobin A1c Plasma Lactic Acid Fredrick 11.7 H* Calcium Phosphorus Magnesium AST ALT Alkaline Phosphatase Total Creatine Kinase CK-MB (CK-2) Troponin I Total Protein Albumin Triglycerides HDL Cholesterol Procalcitonin Urine Glucose (UA) Urine Blood Urine Bacteria Urine Mucus 10/21/19 10/21/19 10/21/19 19:51 20:28 20:28 WBC RBC Hgb Hct MCV MCHC Plt Count Neutrophils # Neutrophils # (Manual) Lymphocytes # Lymphocytes # (Manual) Metamyelocytes # (Man) Nucleated RBCs Macrocytosis ABG pH ABG pCO2 ABG pO2 ABG HCO3 ABG Total CO2 ABG O2 Saturation ABG Lactic Acid VBG pH VBG pCO2 VBG HCO3 Sodium Potassium Chloride Carbon Dioxide BUN Creatinine Glucose 1230 H* POC Glucose (mg/dL) >600 H Hemoglobin A1c Plasma Lactic Acid Fredrick Calcium Phosphorus Magnesium AST ALT Alkaline Phosphatase Total Creatine Kinase CK-MB (CK-2) Troponin I 1.600 H* Total Protein Albumin Triglycerides HDL Cholesterol Procalcitonin Urine Glucose (UA) Urine Blood Urine Bacteria Urine Mucus 10/21/19 10/21/19 10/21/19 20:56 22:04 22:20 WBC RBC Hgb Hct MCV MCHC Plt Count Neutrophils # Neutrophils # (Manual) Lymphocytes # Lymphocytes # (Manual) Metamyelocytes # (Man) Nucleated RBCs Macrocytosis ABG pH ABG pCO2 ABG pO2 ABG HCO3 ABG Total CO2 ABG O2 Saturation ABG Lactic Acid VBG pH VBG pCO2 VBG HCO3 Sodium Potassium 3.4 L Chloride Carbon Dioxide 17 L BUN 31 H Creatinine 1.78 H Glucose 967 H* POC Glucose (mg/dL) >600 H >600 H Hemoglobin A1c Plasma Lactic Acid Fredrick Calcium Phosphorus Magnesium AST ALT Alkaline Phosphatase Total Creatine Kinase CK-MB (CK-2) Troponin I Total Protein Albumin Triglycerides HDL Cholesterol Procalcitonin Urine Glucose (UA) Urine Blood Urine Bacteria Urine Mucus 10/21/19 10/21/19 10/21/19 22:20 22:20 23:13 WBC RBC Hgb Hct MCV MCHC Plt Count Neutrophils # Neutrophils # (Manual) Lymphocytes # Lymphocytes # (Manual) Metamyelocytes # (Man) Nucleated RBCs Macrocytosis ABG pH ABG pCO2 ABG pO2 ABG HCO3 ABG Total CO2 ABG O2 Saturation ABG Lactic Acid VBG pH VBG pCO2 VBG HCO3 Sodium Potassium Chloride Carbon Dioxide BUN Creatinine Glucose POC Glucose (mg/dL) >600 H Hemoglobin A1c 14.3 H Plasma Lactic Acid Fredrick 8.8 H* Calcium Phosphorus Magnesium AST ALT Alkaline Phosphatase Total Creatine Kinase CK-MB (CK-2) Troponin I Total Protein Albumin Triglycerides HDL Cholesterol Procalcitonin Urine Glucose (UA) Urine Blood Urine Bacteria Urine Mucus 10/22/19 10/22/19 10/22/19 00:31 01:49 02:19 WBC RBC Hgb Hct MCV MCHC Plt Count Neutrophils # Neutrophils # (Manual) Lymphocytes # Lymphocytes # (Manual) Metamyelocytes # (Man) Nucleated RBCs Macrocytosis ABG pH ABG pCO2 ABG pO2 ABG HCO3 ABG Total CO2 ABG O2 Saturation ABG Lactic Acid VBG pH VBG pCO2 VBG HCO3 Sodium Potassium Chloride Carbon Dioxide 20 L BUN 31 H Creatinine 1.75 H Glucose 600 H* POC Glucose (mg/dL) >600 H >600 H Hemoglobin A1c Plasma Lactic Acid Fredrick Calcium Phosphorus 2.0 L Magnesium AST ALT Alkaline Phosphatase Total Creatine Kinase CK-MB (CK-2) Troponin I Total Protein Albumin Triglycerides HDL Cholesterol Procalcitonin Urine Glucose (UA) Urine Blood Urine Bacteria Urine Mucus 10/22/19 10/22/19 10/22/19 02:19 03:58 04:58 WBC RBC Hgb Hct MCV MCHC Plt Count Neutrophils # Neutrophils # (Manual) Lymphocytes # Lymphocytes # (Manual) Metamyelocytes # (Man) Nucleated RBCs Macrocytosis ABG pH ABG pCO2 ABG pO2 ABG HCO3 ABG Total CO2 ABG O2 Saturation ABG Lactic Acid VBG pH VBG pCO2 VBG HCO3 Sodium Potassium Chloride Carbon Dioxide BUN Creatinine Glucose POC Glucose (mg/dL) 510 H 512 H Hemoglobin A1c Plasma Lactic Acid Fredrick 6.7 H* Calcium Phosphorus Magnesium AST ALT Alkaline Phosphatase Total Creatine Kinase CK-MB (CK-2) Troponin I Total Protein Albumin Triglycerides HDL Cholesterol Procalcitonin Urine Glucose (UA) Urine Blood Urine Bacteria Urine Mucus 10/22/19 10/22/19 10/22/19 06:02 06:06 06:06 WBC 15.4 H RBC Hgb Hct MCV MCHC Plt Count Neutrophils # 14.1 H Neutrophils # (Manual) Lymphocytes # 0.7 L Lymphocytes # (Manual) Metamyelocytes # (Man) Nucleated RBCs Macrocytosis ABG pH ABG pCO2 ABG pO2 ABG HCO3 ABG Total CO2 ABG O2 Saturation ABG Lactic Acid VBG pH VBG pCO2 VBG HCO3 Sodium Potassium Chloride 109 H Carbon Dioxide 19 L BUN 32 H Creatinine 1.99 H Glucose 390 H POC Glucose (mg/dL) 404 H Hemoglobin A1c Plasma Lactic Acid Fredrick Calcium Phosphorus Magnesium AST 143 H ALT 76 H Alkaline Phosphatase 129 H Total Creatine Kinase CK-MB (CK-2) Troponin I Total Protein Albumin 3.4 L Triglycerides 512 H HDL Cholesterol 33 L Procalcitonin Urine Glucose (UA) Urine Blood Urine Bacteria Urine Mucus 10/22/19 10/22/19 10/22/19 06:06 06:51 08:07 WBC RBC Hgb Hct MCV MCHC Plt Count Neutrophils # Neutrophils # (Manual) Lymphocytes # Lymphocytes # (Manual) Metamyelocytes # (Man) Nucleated RBCs Macrocytosis ABG pH ABG pCO2 ABG pO2 ABG HCO3 ABG Total CO2 ABG O2 Saturation ABG Lactic Acid VBG pH VBG pCO2 VBG HCO3 Sodium Potassium Chloride Carbon Dioxide BUN Creatinine Glucose POC Glucose (mg/dL) 407 H 401 H Hemoglobin A1c Plasma Lactic Acid Fredrick 5.6 H* Calcium Phosphorus Magnesium AST ALT Alkaline Phosphatase Total Creatine Kinase CK-MB (CK-2) Troponin I Total Protein Albumin Triglycerides HDL Cholesterol Procalcitonin Urine Glucose (UA) Urine Blood Urine Bacteria Urine Mucus 10/22/19 10/22/19 10/22/19 09:12 09:59 09:59 WBC RBC Hgb Hct MCV MCHC Plt Count Neutrophils # Neutrophils # (Manual) Lymphocytes # Lymphocytes # (Manual) Metamyelocytes # (Man) Nucleated RBCs Macrocytosis ABG pH ABG pCO2 ABG pO2 ABG HCO3 ABG Total CO2 ABG O2 Saturation ABG Lactic Acid VBG pH VBG pCO2 VBG HCO3 Sodium Potassium Chloride 117 H Carbon Dioxide 18 L BUN 32 H Creatinine 1.89 H Glucose 230 H POC Glucose (mg/dL) 331 H Hemoglobin A1c Plasma Lactic Acid Fredrick 6.0 H* Calcium 7.9 L Phosphorus Magnesium AST ALT Alkaline Phosphatase Total Creatine Kinase CK-MB (CK-2) Troponin I Total Protein Albumin Triglycerides HDL Cholesterol Procalcitonin Urine Glucose (UA) Urine Blood Urine Bacteria Urine Mucus 10/22/19 10/22/19 10/22/19 09:59 10:12 11:10 WBC RBC Hgb Hct MCV MCHC Plt Count Neutrophils # Neutrophils # (Manual) Lymphocytes # Lymphocytes # (Manual) Metamyelocytes # (Man) Nucleated RBCs Macrocytosis ABG pH ABG pCO2 ABG pO2 ABG HCO3 ABG Total CO2 ABG O2 Saturation ABG Lactic Acid VBG pH VBG pCO2 VBG HCO3 Sodium Potassium Chloride Carbon Dioxide BUN Creatinine Glucose POC Glucose (mg/dL) 235 H 226 H Hemoglobin A1c Plasma Lactic Acid Fredrick Calcium Phosphorus Magnesium AST ALT Alkaline Phosphatase Total Creatine Kinase 191 H CK-MB (CK-2) 7.3 H Troponin I 2.250 H* Total Protein Albumin Triglycerides HDL Cholesterol Procalcitonin Urine Glucose (UA) Urine Blood Urine Bacteria Urine Mucus 10/22/19 10/22/19 10/22/19 12:00 13:20 14:03 WBC RBC Hgb Hct MCV MCHC Plt Count Neutrophils # Neutrophils # (Manual) Lymphocytes # Lymphocytes # (Manual) Metamyelocytes # (Man) Nucleated RBCs Macrocytosis ABG pH ABG pCO2 ABG pO2 ABG HCO3 ABG Total CO2 ABG O2 Saturation ABG Lactic Acid VBG pH VBG pCO2 VBG HCO3 Sodium Potassium Chloride Carbon Dioxide BUN Creatinine Glucose POC Glucose (mg/dL) 375 H 278 H 236 H Hemoglobin A1c Plasma Lactic Acid Fredrick Calcium Phosphorus Magnesium AST ALT Alkaline Phosphatase Total Creatine Kinase CK-MB (CK-2) Troponin I Total Protein Albumin Triglycerides HDL Cholesterol Procalcitonin Urine Glucose (UA) Urine Blood Urine Bacteria Urine Mucus 10/22/19 10/22/19 10/22/19 14:21 14:21 15:04 WBC RBC Hgb Hct MCV MCHC Plt Count Neutrophils # Neutrophils # (Manual) Lymphocytes # Lymphocytes # (Manual) Metamyelocytes # (Man) Nucleated RBCs Macrocytosis ABG pH ABG pCO2 ABG pO2 ABG HCO3 ABG Total CO2 ABG O2 Saturation ABG Lactic Acid VBG pH VBG pCO2 VBG HCO3 Sodium Potassium 5.7 H Chloride 115 H Carbon Dioxide 21 L BUN 35 H Creatinine 2.04 H Glucose 173 H POC Glucose (mg/dL) 193 H Hemoglobin A1c Plasma Lactic Acid Fredrick 4.0 H* Calcium 7.5 L Phosphorus Magnesium AST ALT Alkaline Phosphatase Total Creatine Kinase CK-MB (CK-2) Troponin I Total Protein Albumin Triglycerides HDL Cholesterol Procalcitonin Urine Glucose (UA) Urine Blood Urine Bacteria Urine Mucus 10/22/19 10/22/19 10/22/19 16:12 17:01 18:05 WBC RBC Hgb Hct MCV MCHC Plt Count Neutrophils # Neutrophils # (Manual) Lymphocytes # Lymphocytes # (Manual) Metamyelocytes # (Man) Nucleated RBCs Macrocytosis ABG pH ABG pCO2 ABG pO2 ABG HCO3 ABG Total CO2 ABG O2 Saturation ABG Lactic Acid VBG pH VBG pCO2 VBG HCO3 Sodium Potassium 5.9 H Chloride 115 H Carbon Dioxide 21 L BUN 36 H Creatinine 2.41 H Glucose 288 H POC Glucose (mg/dL) 188 H 178 H Hemoglobin A1c Plasma Lactic Acid Fredrick Calcium 7.4 L Phosphorus Magnesium AST ALT Alkaline Phosphatase Total Creatine Kinase CK-MB (CK-2) Troponin I Total Protein Albumin Triglycerides HDL Cholesterol Procalcitonin Urine Glucose (UA) Urine Blood Urine Bacteria Urine Mucus 10/22/19 10/22/19 10/22/19 18:05 18:12 19:09 WBC RBC Hgb Hct MCV MCHC Plt Count Neutrophils # Neutrophils # (Manual) Lymphocytes # Lymphocytes # (Manual) Metamyelocytes # (Man) Nucleated RBCs Macrocytosis ABG pH ABG pCO2 ABG pO2 ABG HCO3 ABG Total CO2 ABG O2 Saturation ABG Lactic Acid VBG pH VBG pCO2 VBG HCO3 Sodium Potassium Chloride Carbon Dioxide BUN Creatinine Glucose POC Glucose (mg/dL) 315 H 334 H Hemoglobin A1c Plasma Lactic Acid Fredrick 3.2 H* Calcium Phosphorus Magnesium AST ALT Alkaline Phosphatase Total Creatine Kinase CK-MB (CK-2) Troponin I Total Protein Albumin Triglycerides HDL Cholesterol Procalcitonin Urine Glucose (UA) Urine Blood Urine Bacteria Urine Mucus 10/22/19 10/22/19 10/22/19 20:50 21:15 22:15 WBC RBC Hgb Hct MCV MCHC Plt Count Neutrophils # Neutrophils # (Manual) Lymphocytes # Lymphocytes # (Manual) Metamyelocytes # (Man) Nucleated RBCs Macrocytosis ABG pH 7.27 L ABG pCO2 27 L ABG pO2 ABG HCO3 13 L ABG Total CO2 13 L ABG O2 Saturation ABG Lactic Acid VBG pH VBG pCO2 VBG HCO3 Sodium Potassium Chloride Carbon Dioxide BUN Creatinine Glucose POC Glucose (mg/dL) 345 H Hemoglobin A1c Plasma Lactic Acid Fredrick 3.6 H* Calcium Phosphorus Magnesium AST ALT Alkaline Phosphatase Total Creatine Kinase CK-MB (CK-2) Troponin I Total Protein Albumin Triglycerides HDL Cholesterol Procalcitonin Urine Glucose (UA) Urine Blood Urine Bacteria Urine Mucus 10/22/19 10/22/19 10/22/19 22:15 22:15 22:17 WBC 13.3 H RBC 3.87 L Hgb Hct MCV 100.9 H MCHC Plt Count 118 L D Neutrophils # Neutrophils # (Manual) 12.50 H Lymphocytes # Lymphocytes # (Manual) 0.27 L Metamyelocytes # (Man) 0.27 H Nucleated RBCs 2 H Macrocytosis ABG pH ABG pCO2 ABG pO2 ABG HCO3 ABG Total CO2 ABG O2 Saturation ABG Lactic Acid VBG pH VBG pCO2 VBG HCO3 Sodium Potassium 6.2 H* Chloride 118 H Carbon Dioxide 13 L BUN 39 H Creatinine 2.72 H Glucose 368 H POC Glucose (mg/dL) 363 H Hemoglobin A1c Plasma Lactic Acid Fredrick Calcium 6.9 L Phosphorus Magnesium AST 3665 H ALT 1334 H Alkaline Phosphatase Total Creatine Kinase CK-MB (CK-2) Troponin I Total Protein 4.9 L Albumin 2.4 L Triglycerides HDL Cholesterol Procalcitonin Urine Glucose (UA) Urine Blood Urine Bacteria Urine Mucus 10/22/19 10/23/19 10/23/19 23:52 00:58 02:00 WBC RBC Hgb Hct MCV MCHC Plt Count Neutrophils # Neutrophils # (Manual) Lymphocytes # Lymphocytes # (Manual) Metamyelocytes # (Man) Nucleated RBCs Macrocytosis ABG pH ABG pCO2 ABG pO2 ABG HCO3 ABG Total CO2 ABG O2 Saturation ABG Lactic Acid VBG pH VBG pCO2 VBG HCO3 Sodium Potassium Chloride Carbon Dioxide BUN Creatinine Glucose POC Glucose (mg/dL) 381 H 344 H 328 H Hemoglobin A1c Plasma Lactic Acid Fredrick Calcium Phosphorus Magnesium AST ALT Alkaline Phosphatase Total Creatine Kinase CK-MB (CK-2) Troponin I Total Protein Albumin Triglycerides HDL Cholesterol Procalcitonin Urine Glucose (UA) Urine Blood Urine Bacteria Urine Mucus 10/23/19 10/23/19 10/23/19 03:00 03:00 03:00 WBC 11.7 H RBC 3.84 L Hgb Hct 38.3 L MCV MCHC Plt Count 110 L Neutrophils # Neutrophils # (Manual) 9.40 H Lymphocytes # Lymphocytes # (Manual) 0.94 L Metamyelocytes # (Man) 1.05 H Nucleated RBCs Macrocytosis ABG pH ABG pCO2 ABG pO2 ABG HCO3 ABG Total CO2 ABG O2 Saturation ABG Lactic Acid VBG pH VBG pCO2 VBG HCO3 Sodium Potassium Chloride 116 H Carbon Dioxide 16 L BUN 40 H Creatinine 2.58 H Glucose 287 H POC Glucose (mg/dL) Hemoglobin A1c Plasma Lactic Acid Fredrick 3.7 H* Calcium 6.7 L Phosphorus Magnesium AST 3453 H ALT 1264 H Alkaline Phosphatase Total Creatine Kinase CK-MB (CK-2) Troponin I Total Protein 4.6 L Albumin 2.2 L Triglycerides HDL Cholesterol Procalcitonin Urine Glucose (UA) Urine Blood Urine Bacteria Urine Mucus 10/23/19 10/23/19 10/23/19 03:02 04:08 05:01 WBC RBC Hgb Hct MCV MCHC Plt Count Neutrophils # Neutrophils # (Manual) Lymphocytes # Lymphocytes # (Manual) Metamyelocytes # (Man) Nucleated RBCs Macrocytosis ABG pH ABG pCO2 26 L ABG pO2 185 H ABG HCO3 16 L ABG Total CO2 17 L ABG O2 Saturation 99.9 H ABG Lactic Acid VBG pH VBG pCO2 VBG HCO3 Sodium Potassium Chloride Carbon Dioxide BUN Creatinine Glucose POC Glucose (mg/dL) 290 H 249 H Hemoglobin A1c Plasma Lactic Acid Fredrick Calcium Phosphorus Magnesium AST ALT Alkaline Phosphatase Total Creatine Kinase CK-MB (CK-2) Troponin I Total Protein Albumin Triglycerides HDL Cholesterol Procalcitonin Urine Glucose (UA) Urine Blood Urine Bacteria Urine Mucus 10/23/19 10/23/19 10/23/19 05:07 06:05 07:10 WBC RBC Hgb Hct MCV MCHC Plt Count Neutrophils # Neutrophils # (Manual) Lymphocytes # Lymphocytes # (Manual) Metamyelocytes # (Man) Nucleated RBCs Macrocytosis ABG pH ABG pCO2 ABG pO2 ABG HCO3 ABG Total CO2 ABG O2 Saturation ABG Lactic Acid VBG pH VBG pCO2 VBG HCO3 Sodium Potassium Chloride Carbon Dioxide BUN Creatinine Glucose POC Glucose (mg/dL) 236 H 341 H 204 H Hemoglobin A1c Plasma Lactic Acid Fredrick Calcium Phosphorus Magnesium AST ALT Alkaline Phosphatase Total Creatine Kinase CK-MB (CK-2) Troponin I Total Protein Albumin Triglycerides HDL Cholesterol Procalcitonin Urine Glucose (UA) Urine Blood Urine Bacteria Urine Mucus 10/23/19 10/23/19 10/23/19 07:12 07:29 07:29 WBC RBC Hgb Hct MCV MCHC Plt Count Neutrophils # Neutrophils # (Manual) Lymphocytes # Lymphocytes # (Manual) Metamyelocytes # (Man) Nucleated RBCs Macrocytosis ABG pH ABG pCO2 ABG pO2 ABG HCO3 ABG Total CO2 ABG O2 Saturation ABG Lactic Acid VBG pH VBG pCO2 VBG HCO3 Sodium Potassium Chloride Carbon Dioxide BUN Creatinine Glucose POC Glucose (mg/dL) 198 H Hemoglobin A1c Plasma Lactic Acid Fredrick 4.8 H* Calcium Phosphorus Magnesium AST ALT Alkaline Phosphatase Total Creatine Kinase CK-MB (CK-2) Troponin I Total Protein Albumin Triglycerides HDL Cholesterol Procalcitonin 10.64 H Urine Glucose (UA) Urine Blood Urine Bacteria Urine Mucus 10/23/19 10/23/19 10/23/19 08:00 09:46 13:21 WBC RBC Hgb Hct MCV MCHC Plt Count Neutrophils # Neutrophils # (Manual) Lymphocytes # Lymphocytes # (Manual) Metamyelocytes # (Man) Nucleated RBCs Macrocytosis ABG pH ABG pCO2 ABG pO2 ABG HCO3 ABG Total CO2 ABG O2 Saturation ABG Lactic Acid VBG pH VBG pCO2 VBG HCO3 Sodium Potassium Chloride Carbon Dioxide BUN Creatinine Glucose POC Glucose (mg/dL) 167 H 119 H 164 H Hemoglobin A1c Plasma Lactic Acid Fredrick Calcium Phosphorus Magnesium AST ALT Alkaline Phosphatase Total Creatine Kinase CK-MB (CK-2) Troponin I Total Protein Albumin Triglycerides HDL Cholesterol Procalcitonin Urine Glucose (UA) Urine Blood Urine Bacteria Urine Mucus 10/23/19 10/23/19 10/23/19 14:12 15:06 16:35 WBC RBC Hgb Hct MCV MCHC Plt Count Neutrophils # Neutrophils # (Manual) Lymphocytes # Lymphocytes # (Manual) Metamyelocytes # (Man) Nucleated RBCs Macrocytosis ABG pH ABG pCO2 ABG pO2 ABG HCO3 ABG Total CO2 ABG O2 Saturation ABG Lactic Acid VBG pH VBG pCO2 VBG HCO3 Sodium Potassium Chloride Carbon Dioxide BUN Creatinine Glucose POC Glucose (mg/dL) 163 H 146 H 170 H Hemoglobin A1c Plasma Lactic Acid Fredrick Calcium Phosphorus Magnesium AST ALT Alkaline Phosphatase Total Creatine Kinase CK-MB (CK-2) Troponin I Total Protein Albumin Triglycerides HDL Cholesterol Procalcitonin Urine Glucose (UA) Urine Blood Urine Bacteria Urine Mucus 10/23/19 10/23/19 10/23/19 17:07 18:15 18:52 WBC RBC Hgb Hct MCV MCHC Plt Count Neutrophils # Neutrophils # (Manual) Lymphocytes # Lymphocytes # (Manual) Metamyelocytes # (Man) Nucleated RBCs Macrocytosis ABG pH ABG pCO2 ABG pO2 ABG HCO3 ABG Total CO2 ABG O2 Saturation ABG Lactic Acid VBG pH VBG pCO2 VBG HCO3 Sodium Potassium Chloride Carbon Dioxide BUN Creatinine Glucose POC Glucose (mg/dL) 166 H 161 H 160 H Hemoglobin A1c Plasma Lactic Acid Fredrick Calcium Phosphorus Magnesium AST ALT Alkaline Phosphatase Total Creatine Kinase CK-MB (CK-2) Troponin I Total Protein Albumin Triglycerides HDL Cholesterol Procalcitonin Urine Glucose (UA) Urine Blood Urine Bacteria Urine Mucus 10/23/19 10/23/19 10/23/19 19:28 20:23 20:25 WBC RBC Hgb Hct MCV MCHC Plt Count Neutrophils # Neutrophils # (Manual) Lymphocytes # Lymphocytes # (Manual) Metamyelocytes # (Man) Nucleated RBCs Macrocytosis ABG pH ABG pCO2 ABG pO2 ABG HCO3 ABG Total CO2 ABG O2 Saturation ABG Lactic Acid VBG pH VBG pCO2 VBG HCO3 Sodium 146 H Potassium Chloride 119 H Carbon Dioxide 15 L BUN 39 H Creatinine 2.44 H Glucose 176 H POC Glucose (mg/dL) 182 H Hemoglobin A1c Plasma Lactic Acid Fredrick 3.4 H* Calcium 6.4 L* Phosphorus Magnesium AST ALT Alkaline Phosphatase Total Creatine Kinase CK-MB (CK-2) Troponin I Total Protein Albumin Triglycerides HDL Cholesterol Procalcitonin Urine Glucose (UA) Urine Blood Urine Bacteria Urine Mucus 10/23/19 10/23/19 10/23/19 21:28 22:15 23:16 WBC RBC Hgb Hct MCV MCHC Plt Count Neutrophils # Neutrophils # (Manual) Lymphocytes # Lymphocytes # (Manual) Metamyelocytes # (Man) Nucleated RBCs Macrocytosis ABG pH ABG pCO2 ABG pO2 ABG HCO3 ABG Total CO2 ABG O2 Saturation ABG Lactic Acid VBG pH VBG pCO2 VBG HCO3 Sodium Potassium Chloride Carbon Dioxide BUN Creatinine Glucose POC Glucose (mg/dL) 178 H 173 H 162 H Hemoglobin A1c Plasma Lactic Acid Fredrick Calcium Phosphorus Magnesium AST ALT Alkaline Phosphatase Total Creatine Kinase CK-MB (CK-2) Troponin I Total Protein Albumin Triglycerides HDL Cholesterol Procalcitonin Urine Glucose (UA) Urine Blood Urine Bacteria Urine Mucus 10/24/19 10/24/19 10/24/19 00:10 00:20 02:09 WBC RBC Hgb Hct MCV MCHC Plt Count Neutrophils # Neutrophils # (Manual) Lymphocytes # Lymphocytes # (Manual) Metamyelocytes # (Man) Nucleated RBCs Macrocytosis ABG pH ABG pCO2 ABG pO2 ABG HCO3 ABG Total CO2 ABG O2 Saturation ABG Lactic Acid VBG pH VBG pCO2 VBG HCO3 Sodium Potassium Chloride Carbon Dioxide BUN Creatinine Glucose POC Glucose (mg/dL) 167 H 175 H Hemoglobin A1c Plasma Lactic Acid Fredrick 3.2 H* Calcium Phosphorus Magnesium AST ALT Alkaline Phosphatase Total Creatine Kinase CK-MB (CK-2) Troponin I Total Protein Albumin Triglycerides HDL Cholesterol Procalcitonin Urine Glucose (UA) Urine Blood Urine Bacteria Urine Mucus 10/24/19 10/24/19 10/24/19 04:10 04:10 04:10 WBC RBC 3.70 L Hgb 12.5 L Hct 37.4 L MCV 101.3 H MCHC Plt Count 89 L Neutrophils # Neutrophils # (Manual) 9.40 H Lymphocytes # Lymphocytes # (Manual) 0.62 L Metamyelocytes # (Man) 0.21 H Nucleated RBCs 3 H Macrocytosis ABG pH ABG pCO2 ABG pO2 ABG HCO3 ABG Total CO2 ABG O2 Saturation ABG Lactic Acid VBG pH VBG pCO2 VBG HCO3 Sodium 146 H Potassium Chloride 120 H Carbon Dioxide 15 L BUN 39 H Creatinine 2.38 H Glucose 180 H POC Glucose (mg/dL) Hemoglobin A1c Plasma Lactic Acid Fredrick Calcium 6.7 L Phosphorus Magnesium AST 2153 H ALT 1107 H Alkaline Phosphatase Total Creatine Kinase CK-MB (CK-2) Troponin I Total Protein 4.1 L Albumin 1.9 L Triglycerides HDL Cholesterol Procalcitonin 17.88 H Urine Glucose (UA) Urine Blood Urine Bacteria Urine Mucus 10/24/19 10/24/19 10/24/19 04:10 04:11 04:55 WBC RBC Hgb Hct MCV MCHC Plt Count Neutrophils # Neutrophils # (Manual) Lymphocytes # Lymphocytes # (Manual) Metamyelocytes # (Man) Nucleated RBCs Macrocytosis ABG pH ABG pCO2 25 L ABG pO2 67 L ABG HCO3 15 L ABG Total CO2 16 L ABG O2 Saturation 93.4 L ABG Lactic Acid 3.0 H* VBG pH VBG pCO2 VBG HCO3 Sodium Potassium Chloride Carbon Dioxide BUN Creatinine Glucose POC Glucose (mg/dL) 177 H Hemoglobin A1c Plasma Lactic Acid Fredrick Calcium Phosphorus Magnesium AST ALT Alkaline Phosphatase Total Creatine Kinase CK-MB (CK-2) Troponin I Total Protein Albumin Triglycerides HDL Cholesterol Procalcitonin Urine Glucose (UA) Urine Blood Urine Bacteria Urine Mucus 10/24/19 10/24/19 10/24/19 05:52 06:55 07:55 WBC RBC Hgb Hct MCV MCHC Plt Count Neutrophils # Neutrophils # (Manual) Lymphocytes # Lymphocytes # (Manual) Metamyelocytes # (Man) Nucleated RBCs Macrocytosis ABG pH ABG pCO2 ABG pO2 ABG HCO3 ABG Total CO2 ABG O2 Saturation ABG Lactic Acid VBG pH VBG pCO2 VBG HCO3 Sodium Potassium Chloride Carbon Dioxide BUN Creatinine Glucose POC Glucose (mg/dL) 153 H 167 H 171 H Hemoglobin A1c Plasma Lactic Acid Fredrick Calcium Phosphorus Magnesium AST ALT Alkaline Phosphatase Total Creatine Kinase CK-MB (CK-2) Troponin I Total Protein Albumin Triglycerides HDL Cholesterol Procalcitonin Urine Glucose (UA) Urine Blood Urine Bacteria Urine Mucus 10/24/19 10/24/19 10/24/19 10:08 10:59 12:19 WBC RBC Hgb Hct MCV MCHC Plt Count Neutrophils # Neutrophils # (Manual) Lymphocytes # Lymphocytes # (Manual) Metamyelocytes # (Man) Nucleated RBCs Macrocytosis ABG pH ABG pCO2 ABG pO2 ABG HCO3 ABG Total CO2 ABG O2 Saturation ABG Lactic Acid VBG pH VBG pCO2 VBG HCO3 Sodium Potassium Chloride Carbon Dioxide BUN Creatinine Glucose POC Glucose (mg/dL) 182 H 186 H 204 H Hemoglobin A1c Plasma Lactic Acid Fredrick Calcium Phosphorus Magnesium AST ALT Alkaline Phosphatase Total Creatine Kinase CK-MB (CK-2) Troponin I Total Protein Albumin Triglycerides HDL Cholesterol Procalcitonin Urine Glucose (UA) Urine Blood Urine Bacteria Urine Mucus 10/24/19 10/24/19 10/24/19 13:21 13:56 15:52 WBC RBC Hgb Hct MCV MCHC Plt Count Neutrophils # Neutrophils # (Manual) Lymphocytes # Lymphocytes # (Manual) Metamyelocytes # (Man) Nucleated RBCs Macrocytosis ABG pH ABG pCO2 ABG pO2 ABG HCO3 ABG Total CO2 ABG O2 Saturation ABG Lactic Acid VBG pH VBG pCO2 VBG HCO3 Sodium Potassium Chloride Carbon Dioxide BUN Creatinine Glucose POC Glucose (mg/dL) 205 H 187 H 226 H Hemoglobin A1c Plasma Lactic Acid Fredrick Calcium Phosphorus Magnesium AST ALT Alkaline Phosphatase Total Creatine Kinase CK-MB (CK-2) Troponin I Total Protein Albumin Triglycerides HDL Cholesterol Procalcitonin Urine Glucose (UA) Urine Blood Urine Bacteria Urine Mucus 10/24/19 10/24/19 10/24/19 16:05 17:02 17:54 WBC RBC Hgb Hct MCV MCHC Plt Count Neutrophils # Neutrophils # (Manual) Lymphocytes # Lymphocytes # (Manual) Metamyelocytes # (Man) Nucleated RBCs Macrocytosis ABG pH ABG pCO2 ABG pO2 ABG HCO3 ABG Total CO2 ABG O2 Saturation ABG Lactic Acid VBG pH VBG pCO2 VBG HCO3 Sodium Potassium Chloride Carbon Dioxide BUN Creatinine Glucose POC Glucose (mg/dL) 250 H 256 H Hemoglobin A1c Plasma Lactic Acid Fredrick 2.9 H* Calcium Phosphorus Magnesium AST ALT Alkaline Phosphatase Total Creatine Kinase CK-MB (CK-2) Troponin I Total Protein Albumin Triglycerides HDL Cholesterol Procalcitonin Urine Glucose (UA) Urine Blood Urine Bacteria Urine Mucus 10/24/19 10/24/19 10/24/19 19:19 20:23 21:58 WBC RBC Hgb Hct MCV MCHC Plt Count Neutrophils # Neutrophils # (Manual) Lymphocytes # Lymphocytes # (Manual) Metamyelocytes # (Man) Nucleated RBCs Macrocytosis ABG pH ABG pCO2 ABG pO2 ABG HCO3 ABG Total CO2 ABG O2 Saturation ABG Lactic Acid VBG pH VBG pCO2 VBG HCO3 Sodium Potassium Chloride Carbon Dioxide BUN Creatinine Glucose POC Glucose (mg/dL) 265 H 331 H 256 H Hemoglobin A1c Plasma Lactic Acid Fredrick Calcium Phosphorus Magnesium AST ALT Alkaline Phosphatase Total Creatine Kinase CK-MB (CK-2) Troponin I Total Protein Albumin Triglycerides HDL Cholesterol Procalcitonin Urine Glucose (UA) Urine Blood Urine Bacteria Urine Mucus 10/24/19 10/25/19 10/25/19 23:08 00:18 01:10 WBC RBC Hgb Hct MCV MCHC Plt Count Neutrophils # Neutrophils # (Manual) Lymphocytes # Lymphocytes # (Manual) Metamyelocytes # (Man) Nucleated RBCs Macrocytosis ABG pH ABG pCO2 ABG pO2 ABG HCO3 ABG Total CO2 ABG O2 Saturation ABG Lactic Acid VBG pH VBG pCO2 VBG HCO3 Sodium Potassium Chloride Carbon Dioxide BUN Creatinine Glucose POC Glucose (mg/dL) 232 H 189 H 238 H Hemoglobin A1c Plasma Lactic Acid Fredrick Calcium Phosphorus Magnesium AST ALT Alkaline Phosphatase Total Creatine Kinase CK-MB (CK-2) Troponin I Total Protein Albumin Triglycerides HDL Cholesterol Procalcitonin Urine Glucose (UA) Urine Blood Urine Bacteria Urine Mucus 10/25/19 10/25/19 10/25/19 02:00 02:00 02:00 WBC 10.7 H RBC 3.67 L Hgb 12.1 L Hct 37.1 L MCV 101.0 H MCHC Plt Count 94 L Neutrophils # 9.6 H Neutrophils # (Manual) Lymphocytes # 0.8 L Lymphocytes # (Manual) Metamyelocytes # (Man) Nucleated RBCs Macrocytosis ABG pH ABG pCO2 ABG pO2 ABG HCO3 ABG Total CO2 ABG O2 Saturation ABG Lactic Acid VBG pH VBG pCO2 VBG HCO3 Sodium 149 H Potassium 3.3 L Chloride 118 H Carbon Dioxide 21 L BUN 43 H Creatinine 2.19 H Glucose 218 H POC Glucose (mg/dL) Hemoglobin A1c Plasma Lactic Acid Fredrick Calcium 6.6 L Phosphorus Magnesium AST 635 H ALT 777 H Alkaline Phosphatase Total Creatine Kinase CK-MB (CK-2) Troponin I Total Protein 4.2 L Albumin 1.9 L Triglycerides HDL Cholesterol Procalcitonin 15.24 H Urine Glucose (UA) Urine Blood Urine Bacteria Urine Mucus 10/25/19 10/25/19 10/25/19 02:00 02:04 03:15 WBC RBC Hgb Hct MCV MCHC Plt Count Neutrophils # Neutrophils # (Manual) Lymphocytes # Lymphocytes # (Manual) Metamyelocytes # (Man) Nucleated RBCs Macrocytosis ABG pH ABG pCO2 ABG pO2 ABG HCO3 ABG Total CO2 ABG O2 Saturation ABG Lactic Acid VBG pH VBG pCO2 VBG HCO3 Sodium Potassium Chloride Carbon Dioxide BUN Creatinine Glucose POC Glucose (mg/dL) 221 H 259 H Hemoglobin A1c Plasma Lactic Acid Fredrick Calcium Phosphorus Magnesium 1.5 L AST ALT Alkaline Phosphatase Total Creatine Kinase CK-MB (CK-2) Troponin I Total Protein Albumin Triglycerides HDL Cholesterol Procalcitonin Urine Glucose (UA) Urine Blood Urine Bacteria Urine Mucus 10/25/19 10/25/19 10/25/19 04:08 05:17 05:29 WBC RBC Hgb Hct MCV MCHC Plt Count Neutrophils # Neutrophils # (Manual) Lymphocytes # Lymphocytes # (Manual) Metamyelocytes # (Man) Nucleated RBCs Macrocytosis ABG pH 7.51 H ABG pCO2 28 L ABG pO2 65 L ABG HCO3 ABG Total CO2 ABG O2 Saturation ABG Lactic Acid VBG pH VBG pCO2 VBG HCO3 Sodium Potassium Chloride Carbon Dioxide BUN Creatinine Glucose POC Glucose (mg/dL) 214 H 190 H Hemoglobin A1c Plasma Lactic Acid Fredrick Calcium Phosphorus Magnesium AST ALT Alkaline Phosphatase Total Creatine Kinase CK-MB (CK-2) Troponin I Total Protein Albumin Triglycerides HDL Cholesterol Procalcitonin Urine Glucose (UA) Urine Blood Urine Bacteria Urine Mucus 10/25/19 10/25/19 10/25/19 05:40 06:13 06:59 WBC RBC Hgb Hct MCV MCHC Plt Count Neutrophils # Neutrophils # (Manual) Lymphocytes # Lymphocytes # (Manual) Metamyelocytes # (Man) Nucleated RBCs Macrocytosis ABG pH ABG pCO2 ABG pO2 ABG HCO3 ABG Total CO2 ABG O2 Saturation ABG Lactic Acid VBG pH VBG pCO2 VBG HCO3 Sodium Potassium Chloride Carbon Dioxide BUN Creatinine Glucose POC Glucose (mg/dL) 186 H 213 H Hemoglobin A1c Plasma Lactic Acid Fredrick 2.8 H* Calcium Phosphorus Magnesium AST ALT Alkaline Phosphatase Total Creatine Kinase CK-MB (CK-2) Troponin I Total Protein Albumin Triglycerides HDL Cholesterol Procalcitonin Urine Glucose (UA) Urine Blood Urine Bacteria Urine Mucus 10/25/19 10/25/19 10/25/19 08:25 09:29 10:10 WBC RBC Hgb Hct MCV MCHC Plt Count Neutrophils # Neutrophils # (Manual) Lymphocytes # Lymphocytes # (Manual) Metamyelocytes # (Man) Nucleated RBCs Macrocytosis ABG pH ABG pCO2 ABG pO2 ABG HCO3 ABG Total CO2 ABG O2 Saturation ABG Lactic Acid VBG pH VBG pCO2 VBG HCO3 Sodium Potassium Chloride Carbon Dioxide BUN Creatinine Glucose POC Glucose (mg/dL) 196 H 198 H 184 H Hemoglobin A1c Plasma Lactic Acid Fredrick Calcium Phosphorus Magnesium AST ALT Alkaline Phosphatase Total Creatine Kinase CK-MB (CK-2) Troponin I Total Protein Albumin Triglycerides HDL Cholesterol Procalcitonin Urine Glucose (UA) Urine Blood Urine Bacteria Urine Mucus 10/25/19 10/25/19 10/25/19 11:34 11:35 13:07 WBC RBC Hgb Hct MCV MCHC Plt Count Neutrophils # Neutrophils # (Manual) Lymphocytes # Lymphocytes # (Manual) Metamyelocytes # (Man) Nucleated RBCs Macrocytosis ABG pH ABG pCO2 ABG pO2 ABG HCO3 ABG Total CO2 ABG O2 Saturation ABG Lactic Acid VBG pH VBG pCO2 VBG HCO3 Sodium Potassium 3.4 L Chloride Carbon Dioxide BUN Creatinine Glucose POC Glucose (mg/dL) 162 H 159 H Hemoglobin A1c Plasma Lactic Acid Fredrick Calcium Phosphorus Magnesium AST ALT Alkaline Phosphatase Total Creatine Kinase CK-MB (CK-2) Troponin I Total Protein Albumin Triglycerides HDL Cholesterol Procalcitonin Urine Glucose (UA) Urine Blood Urine Bacteria Urine Mucus 10/25/19 10/25/19 10/25/19 14:59 16:11 17:10 WBC RBC Hgb Hct MCV MCHC Plt Count Neutrophils # Neutrophils # (Manual) Lymphocytes # Lymphocytes # (Manual) Metamyelocytes # (Man) Nucleated RBCs Macrocytosis ABG pH ABG pCO2 ABG pO2 ABG HCO3 ABG Total CO2 ABG O2 Saturation ABG Lactic Acid VBG pH VBG pCO2 VBG HCO3 Sodium Potassium Chloride Carbon Dioxide BUN Creatinine Glucose POC Glucose (mg/dL) 131 H 138 H 138 H Hemoglobin A1c Plasma Lactic Acid Fredrick Calcium Phosphorus Magnesium AST ALT Alkaline Phosphatase Total Creatine Kinase CK-MB (CK-2) Troponin I Total Protein Albumin Triglycerides HDL Cholesterol Procalcitonin Urine Glucose (UA) Urine Blood Urine Bacteria Urine Mucus 10/25/19 10/25/19 10/25/19 17:56 20:15 21:16 WBC RBC Hgb Hct MCV MCHC Plt Count Neutrophils # Neutrophils # (Manual) Lymphocytes # Lymphocytes # (Manual) Metamyelocytes # (Man) Nucleated RBCs Macrocytosis ABG pH ABG pCO2 ABG pO2 ABG HCO3 ABG Total CO2 ABG O2 Saturation ABG Lactic Acid VBG pH VBG pCO2 VBG HCO3 Sodium Potassium Chloride Carbon Dioxide BUN Creatinine Glucose POC Glucose (mg/dL) 144 H 118 H 164 H Hemoglobin A1c Plasma Lactic Acid Fredrick Calcium Phosphorus Magnesium AST ALT Alkaline Phosphatase Total Creatine Kinase CK-MB (CK-2) Troponin I Total Protein Albumin Triglycerides HDL Cholesterol Procalcitonin Urine Glucose (UA) Urine Blood Urine Bacteria Urine Mucus 10/25/19 10/25/19 10/26/19 22:45 23:19 00:12 WBC RBC Hgb Hct MCV MCHC Plt Count Neutrophils # Neutrophils # (Manual) Lymphocytes # Lymphocytes # (Manual) Metamyelocytes # (Man) Nucleated RBCs Macrocytosis ABG pH ABG pCO2 ABG pO2 ABG HCO3 ABG Total CO2 ABG O2 Saturation ABG Lactic Acid VBG pH VBG pCO2 VBG HCO3 Sodium Potassium Chloride Carbon Dioxide BUN Creatinine Glucose POC Glucose (mg/dL) 157 H 155 H 155 H Hemoglobin A1c Plasma Lactic Acid Fredrick Calcium Phosphorus Magnesium AST ALT Alkaline Phosphatase Total Creatine Kinase CK-MB (CK-2) Troponin I Total Protein Albumin Triglycerides HDL Cholesterol Procalcitonin Urine Glucose (UA) Urine Blood Urine Bacteria Urine Mucus 10/26/19 10/26/19 10/26/19 01:11 02:06 04:18 WBC RBC Hgb Hct MCV MCHC Plt Count Neutrophils # Neutrophils # (Manual) Lymphocytes # Lymphocytes # (Manual) Metamyelocytes # (Man) Nucleated RBCs Macrocytosis ABG pH ABG pCO2 ABG pO2 ABG HCO3 ABG Total CO2 ABG O2 Saturation ABG Lactic Acid VBG pH VBG pCO2 VBG HCO3 Sodium Potassium Chloride Carbon Dioxide BUN Creatinine Glucose POC Glucose (mg/dL) 126 H 132 H 210 H Hemoglobin A1c Plasma Lactic Acid Fredrick Calcium Phosphorus Magnesium AST ALT Alkaline Phosphatase Total Creatine Kinase CK-MB (CK-2) Troponin I Total Protein Albumin Triglycerides HDL Cholesterol Procalcitonin Urine Glucose (UA) Urine Blood Urine Bacteria Urine Mucus 10/26/19 10/26/19 10/26/19 04:57 05:15 06:03 WBC RBC Hgb Hct MCV MCHC Plt Count Neutrophils # Neutrophils # (Manual) Lymphocytes # Lymphocytes # (Manual) Metamyelocytes # (Man) Nucleated RBCs Macrocytosis ABG pH ABG pCO2 32 L ABG pO2 79 L ABG HCO3 19 L ABG Total CO2 ABG O2 Saturation ABG Lactic Acid VBG pH VBG pCO2 VBG HCO3 Sodium Potassium Chloride Carbon Dioxide BUN Creatinine Glucose POC Glucose (mg/dL) 196 H 234 H Hemoglobin A1c Plasma Lactic Acid Fredrick Calcium Phosphorus Magnesium AST ALT Alkaline Phosphatase Total Creatine Kinase CK-MB (CK-2) Troponin I Total Protein Albumin Triglycerides HDL Cholesterol Procalcitonin Urine Glucose (UA) Urine Blood Urine Bacteria Urine Mucus 10/26/19 10/26/19 10/26/19 06:05 06:05 07:13 WBC RBC Hgb Hct MCV MCHC Plt Count Neutrophils # Neutrophils # (Manual) Lymphocytes # Lymphocytes # (Manual) Metamyelocytes # (Man) Nucleated RBCs Macrocytosis ABG pH ABG pCO2 ABG pO2 ABG HCO3 ABG Total CO2 ABG O2 Saturation ABG Lactic Acid VBG pH VBG pCO2 VBG HCO3 Sodium 149 H Potassium Chloride 119 H Carbon Dioxide 20 L BUN 44 H Creatinine 1.83 H Glucose 210 H POC Glucose (mg/dL) 156 H Hemoglobin A1c Plasma Lactic Acid Fredrick Calcium 6.6 L Phosphorus Magnesium AST ALT Alkaline Phosphatase Total Creatine Kinase CK-MB (CK-2) Troponin I Total Protein Albumin Triglycerides HDL Cholesterol Procalcitonin 8.54 H Urine Glucose (UA) Urine Blood Urine Bacteria Urine Mucus 10/26/19 10/26/19 10/26/19 08:11 08:20 10:17 WBC RBC 3.35 L Hgb 11.0 L Hct 34.7 L MCV 103.5 H MCHC Plt Count 84 L Neutrophils # 8.4 H Neutrophils # (Manual) Lymphocytes # 0.7 L Lymphocytes # (Manual) Metamyelocytes # (Man) Nucleated RBCs Macrocytosis ABG pH ABG pCO2 ABG pO2 ABG HCO3 ABG Total CO2 ABG O2 Saturation ABG Lactic Acid VBG pH VBG pCO2 VBG HCO3 Sodium Potassium Chloride Carbon Dioxide BUN Creatinine Glucose POC Glucose (mg/dL) 201 H 152 H Hemoglobin A1c Plasma Lactic Acid Fredrick Calcium Phosphorus Magnesium AST ALT Alkaline Phosphatase Total Creatine Kinase CK-MB (CK-2) Troponin I Total Protein Albumin Triglycerides HDL Cholesterol Procalcitonin Urine Glucose (UA) Urine Blood Urine Bacteria Urine Mucus 10/26/19 10/26/19 10/26/19 11:04 13:03 15:28 WBC RBC Hgb Hct MCV MCHC Plt Count Neutrophils # Neutrophils # (Manual) Lymphocytes # Lymphocytes # (Manual) Metamyelocytes # (Man) Nucleated RBCs Macrocytosis ABG pH ABG pCO2 ABG pO2 ABG HCO3 ABG Total CO2 ABG O2 Saturation ABG Lactic Acid VBG pH VBG pCO2 VBG HCO3 Sodium Potassium Chloride Carbon Dioxide BUN Creatinine Glucose POC Glucose (mg/dL) 142 H 139 H 177 H Hemoglobin A1c Plasma Lactic Acid Fredrick Calcium Phosphorus Magnesium AST ALT Alkaline Phosphatase Total Creatine Kinase CK-MB (CK-2) Troponin I Total Protein Albumin Triglycerides HDL Cholesterol Procalcitonin Urine Glucose (UA) Urine Blood Urine Bacteria Urine Mucus 10/26/19 10/26/19 10/26/19 16:31 17:29 18:49 WBC RBC Hgb Hct MCV MCHC Plt Count Neutrophils # Neutrophils # (Manual) Lymphocytes # Lymphocytes # (Manual) Metamyelocytes # (Man) Nucleated RBCs Macrocytosis ABG pH ABG pCO2 ABG pO2 ABG HCO3 ABG Total CO2 ABG O2 Saturation ABG Lactic Acid VBG pH VBG pCO2 VBG HCO3 Sodium Potassium Chloride Carbon Dioxide BUN Creatinine Glucose POC Glucose (mg/dL) 200 H 192 H 204 H Hemoglobin A1c Plasma Lactic Acid Fredrick Calcium Phosphorus Magnesium AST ALT Alkaline Phosphatase Total Creatine Kinase CK-MB (CK-2) Troponin I Total Protein Albumin Triglycerides HDL Cholesterol Procalcitonin Urine Glucose (UA) Urine Blood Urine Bacteria Urine Mucus 10/26/19 10/26/19 10/26/19 19:14 19:33 19:54 WBC RBC Hgb Hct MCV MCHC Plt Count Neutrophils # Neutrophils # (Manual) Lymphocytes # Lymphocytes # (Manual) Metamyelocytes # (Man) Nucleated RBCs Macrocytosis ABG pH ABG pCO2 ABG pO2 ABG HCO3 ABG Total CO2 ABG O2 Saturation ABG Lactic Acid VBG pH VBG pCO2 VBG HCO3 Sodium Potassium 3.4 L Chloride Carbon Dioxide BUN Creatinine Glucose POC Glucose (mg/dL) 202 H 253 H Hemoglobin A1c Plasma Lactic Acid Fredrick Calcium Phosphorus Magnesium AST ALT Alkaline Phosphatase Total Creatine Kinase CK-MB (CK-2) Troponin I Total Protein Albumin Triglycerides HDL Cholesterol Procalcitonin Urine Glucose (UA) Urine Blood Urine Bacteria Urine Mucus 10/26/19 10/26/19 10/26/19 20:52 22:03 23:09 WBC RBC Hgb Hct MCV MCHC Plt Count Neutrophils # Neutrophils # (Manual) Lymphocytes # Lymphocytes # (Manual) Metamyelocytes # (Man) Nucleated RBCs Macrocytosis ABG pH ABG pCO2 ABG pO2 ABG HCO3 ABG Total CO2 ABG O2 Saturation ABG Lactic Acid VBG pH VBG pCO2 VBG HCO3 Sodium Potassium Chloride Carbon Dioxide BUN Creatinine Glucose POC Glucose (mg/dL) 169 H 249 H 225 H Hemoglobin A1c Plasma Lactic Acid Fredrick Calcium Phosphorus Magnesium AST ALT Alkaline Phosphatase Total Creatine Kinase CK-MB (CK-2) Troponin I Total Protein Albumin Triglycerides HDL Cholesterol Procalcitonin Urine Glucose (UA) Urine Blood Urine Bacteria Urine Mucus 10/27/19 10/27/19 10/27/19 00:02 01:05 02:04 WBC RBC Hgb Hct MCV MCHC Plt Count Neutrophils # Neutrophils # (Manual) Lymphocytes # Lymphocytes # (Manual) Metamyelocytes # (Man) Nucleated RBCs Macrocytosis ABG pH ABG pCO2 ABG pO2 ABG HCO3 ABG Total CO2 ABG O2 Saturation ABG Lactic Acid VBG pH VBG pCO2 VBG HCO3 Sodium Potassium Chloride Carbon Dioxide BUN Creatinine Glucose POC Glucose (mg/dL) 213 H 222 H 152 H Hemoglobin A1c Plasma Lactic Acid Fredrick Calcium Phosphorus Magnesium AST ALT Alkaline Phosphatase Total Creatine Kinase CK-MB (CK-2) Troponin I Total Protein Albumin Triglycerides HDL Cholesterol Procalcitonin Urine Glucose (UA) Urine Blood Urine Bacteria Urine Mucus 10/27/19 10/27/19 10/27/19 03:00 04:00 05:00 WBC RBC Hgb Hct MCV MCHC Plt Count Neutrophils # Neutrophils # (Manual) Lymphocytes # Lymphocytes # (Manual) Metamyelocytes # (Man) Nucleated RBCs Macrocytosis ABG pH ABG pCO2 ABG pO2 ABG HCO3 ABG Total CO2 ABG O2 Saturation ABG Lactic Acid VBG pH VBG pCO2 VBG HCO3 Sodium 147 H Potassium Chloride 118 H Carbon Dioxide BUN 42 H Creatinine 1.54 H Glucose 174 H POC Glucose (mg/dL) 163 H 173 H Hemoglobin A1c Plasma Lactic Acid Fredrick Calcium 7.0 L Phosphorus 2.0 L Magnesium AST 71 H ALT 207 H Alkaline Phosphatase Total Creatine Kinase CK-MB (CK-2) Troponin I Total Protein 4.1 L Albumin 1.8 L Triglycerides 337 H HDL Cholesterol Procalcitonin Urine Glucose (UA) Urine Blood Urine Bacteria Urine Mucus 10/27/19 10/27/19 10/27/19 05:00 05:02 05:21 WBC RBC 3.10 L Hgb 10.4 L Hct 32.0 L MCV 103.4 H MCHC Plt Count 88 L Neutrophils # Neutrophils # (Manual) Lymphocytes # Lymphocytes # (Manual) Metamyelocytes # (Man) Nucleated RBCs Macrocytosis ABG pH ABG pCO2 34 L ABG pO2 80 L ABG HCO3 ABG Total CO2 ABG O2 Saturation ABG Lactic Acid VBG pH VBG pCO2 VBG HCO3 Sodium Potassium Chloride Carbon Dioxide BUN Creatinine Glucose POC Glucose (mg/dL) 174 H Hemoglobin A1c Plasma Lactic Acid Fredrick Calcium Phosphorus Magnesium AST ALT Alkaline Phosphatase Total Creatine Kinase CK-MB (CK-2) Troponin I Total Protein Albumin Triglycerides HDL Cholesterol Procalcitonin Urine Glucose (UA) Urine Blood Urine Bacteria Urine Mucus 10/27/19 10/27/19 10/27/19 05:57 06:56 08:09 WBC RBC Hgb Hct MCV MCHC Plt Count Neutrophils # Neutrophils # (Manual) Lymphocytes # Lymphocytes # (Manual) Metamyelocytes # (Man) Nucleated RBCs Macrocytosis ABG pH ABG pCO2 ABG pO2 ABG HCO3 ABG Total CO2 ABG O2 Saturation ABG Lactic Acid VBG pH VBG pCO2 VBG HCO3 Sodium Potassium Chloride Carbon Dioxide BUN Creatinine Glucose POC Glucose (mg/dL) 174 H 180 H 140 H Hemoglobin A1c Plasma Lactic Acid Fredrick Calcium Phosphorus Magnesium AST ALT Alkaline Phosphatase Total Creatine Kinase CK-MB (CK-2) Troponin I Total Protein Albumin Triglycerides HDL Cholesterol Procalcitonin Urine Glucose (UA) Urine Blood Urine Bacteria Urine Mucus 10/27/19 10/27/19 10/27/19 09:19 10:12 11:41 WBC RBC Hgb Hct MCV MCHC Plt Count Neutrophils # Neutrophils # (Manual) Lymphocytes # Lymphocytes # (Manual) Metamyelocytes # (Man) Nucleated RBCs Macrocytosis ABG pH ABG pCO2 ABG pO2 ABG HCO3 ABG Total CO2 ABG O2 Saturation ABG Lactic Acid VBG pH VBG pCO2 VBG HCO3 Sodium Potassium Chloride Carbon Dioxide BUN Creatinine Glucose POC Glucose (mg/dL) 170 H 177 H 168 H Hemoglobin A1c Plasma Lactic Acid Fredrick Calcium Phosphorus Magnesium AST ALT Alkaline Phosphatase Total Creatine Kinase CK-MB (CK-2) Troponin I Total Protein Albumin Triglycerides HDL Cholesterol Procalcitonin Urine Glucose (UA) Urine Blood Urine Bacteria Urine Mucus 10/27/19 10/27/19 10/27/19 13:13 14:06 15:08 WBC RBC Hgb Hct MCV MCHC Plt Count Neutrophils # Neutrophils # (Manual) Lymphocytes # Lymphocytes # (Manual) Metamyelocytes # (Man) Nucleated RBCs Macrocytosis ABG pH ABG pCO2 ABG pO2 ABG HCO3 ABG Total CO2 ABG O2 Saturation ABG Lactic Acid VBG pH VBG pCO2 VBG HCO3 Sodium Potassium Chloride Carbon Dioxide BUN Creatinine Glucose POC Glucose (mg/dL) 168 H 168 H 168 H Hemoglobin A1c Plasma Lactic Acid Fredrick Calcium Phosphorus Magnesium AST ALT Alkaline Phosphatase Total Creatine Kinase CK-MB (CK-2) Troponin I Total Protein Albumin Triglycerides HDL Cholesterol Procalcitonin Urine Glucose (UA) Urine Blood Urine Bacteria Urine Mucus 10/27/19 10/27/19 10/27/19 15:52 16:59 17:01 WBC RBC Hgb Hct MCV MCHC Plt Count Neutrophils # Neutrophils # (Manual) Lymphocytes # Lymphocytes # (Manual) Metamyelocytes # (Man) Nucleated RBCs Macrocytosis ABG pH ABG pCO2 ABG pO2 ABG HCO3 ABG Total CO2 ABG O2 Saturation ABG Lactic Acid VBG pH VBG pCO2 VBG HCO3 Sodium Potassium Chloride Carbon Dioxide BUN Creatinine Glucose POC Glucose (mg/dL) 171 H 136 H 212 H Hemoglobin A1c Plasma Lactic Acid Fredrick Calcium Phosphorus Magnesium AST ALT Alkaline Phosphatase Total Creatine Kinase CK-MB (CK-2) Troponin I Total Protein Albumin Triglycerides HDL Cholesterol Procalcitonin Urine Glucose (UA) Urine Blood Urine Bacteria Urine Mucus 10/27/19 10/27/19 10/27/19 18:03 19:06 19:59 WBC RBC Hgb Hct MCV MCHC Plt Count Neutrophils # Neutrophils # (Manual) Lymphocytes # Lymphocytes # (Manual) Metamyelocytes # (Man) Nucleated RBCs Macrocytosis ABG pH ABG pCO2 ABG pO2 ABG HCO3 ABG Total CO2 ABG O2 Saturation ABG Lactic Acid VBG pH VBG pCO2 VBG HCO3 Sodium Potassium Chloride Carbon Dioxide BUN Creatinine Glucose POC Glucose (mg/dL) 229 H 247 H 283 H Hemoglobin A1c Plasma Lactic Acid Fredrick Calcium Phosphorus Magnesium AST ALT Alkaline Phosphatase Total Creatine Kinase CK-MB (CK-2) Troponin I Total Protein Albumin Triglycerides HDL Cholesterol Procalcitonin Urine Glucose (UA) Urine Blood Urine Bacteria Urine Mucus 10/27/19 10/27/19 10/27/19 20:57 22:02 22:53 WBC RBC Hgb Hct MCV MCHC Plt Count Neutrophils # Neutrophils # (Manual) Lymphocytes # Lymphocytes # (Manual) Metamyelocytes # (Man) Nucleated RBCs Macrocytosis ABG pH ABG pCO2 ABG pO2 ABG HCO3 ABG Total CO2 ABG O2 Saturation ABG Lactic Acid VBG pH VBG pCO2 VBG HCO3 Sodium Potassium Chloride Carbon Dioxide BUN Creatinine Glucose POC Glucose (mg/dL) 310 H 314 H 326 H Hemoglobin A1c Plasma Lactic Acid Fredrick Calcium Phosphorus Magnesium AST ALT Alkaline Phosphatase Total Creatine Kinase CK-MB (CK-2) Troponin I Total Protein Albumin Triglycerides HDL Cholesterol Procalcitonin Urine Glucose (UA) Urine Blood Urine Bacteria Urine Mucus 10/27/19 10/28/19 10/28/19 23:50 00:54 01:52 WBC RBC Hgb Hct MCV MCHC Plt Count Neutrophils # Neutrophils # (Manual) Lymphocytes # Lymphocytes # (Manual) Metamyelocytes # (Man) Nucleated RBCs Macrocytosis ABG pH ABG pCO2 ABG pO2 ABG HCO3 ABG Total CO2 ABG O2 Saturation ABG Lactic Acid VBG pH VBG pCO2 VBG HCO3 Sodium Potassium Chloride Carbon Dioxide BUN Creatinine Glucose POC Glucose (mg/dL) 315 H 299 H 295 H Hemoglobin A1c Plasma Lactic Acid Fredrick Calcium Phosphorus Magnesium AST ALT Alkaline Phosphatase Total Creatine Kinase CK-MB (CK-2) Troponin I Total Protein Albumin Triglycerides HDL Cholesterol Procalcitonin Urine Glucose (UA) Urine Blood Urine Bacteria Urine Mucus 10/28/19 10/28/19 10/28/19 02:55 04:00 04:00 WBC 11.8 H RBC 2.85 L Hgb 9.5 L Hct 29.9 L MCV 104.9 H MCHC Plt Count 144 L D Neutrophils # Neutrophils # (Manual) Lymphocytes # Lymphocytes # (Manual) Metamyelocytes # (Man) Nucleated RBCs Macrocytosis ABG pH ABG pCO2 ABG pO2 ABG HCO3 ABG Total CO2 ABG O2 Saturation ABG Lactic Acid VBG pH VBG pCO2 VBG HCO3 Sodium Potassium 3.4 L Chloride 117 H Carbon Dioxide 21 L BUN 43 H Creatinine 1.38 H Glucose 259 H POC Glucose (mg/dL) 295 H Hemoglobin A1c Plasma Lactic Acid Fredrick Calcium 7.2 L Phosphorus 1.6 L Magnesium AST ALT 107 H Alkaline Phosphatase Total Creatine Kinase CK-MB (CK-2) Troponin I Total Protein 3.9 L Albumin 1.7 L Triglycerides HDL Cholesterol Procalcitonin Urine Glucose (UA) Urine Blood Urine Bacteria Urine Mucus 10/28/19 10/28/19 10/28/19 04:02 04:56 06:03 WBC RBC Hgb Hct MCV MCHC Plt Count Neutrophils # Neutrophils # (Manual) Lymphocytes # Lymphocytes # (Manual) Metamyelocytes # (Man) Nucleated RBCs Macrocytosis ABG pH ABG pCO2 ABG pO2 ABG HCO3 ABG Total CO2 ABG O2 Saturation ABG Lactic Acid VBG pH VBG pCO2 VBG HCO3 Sodium Potassium Chloride Carbon Dioxide BUN Creatinine Glucose POC Glucose (mg/dL) 290 H 296 H 283 H Hemoglobin A1c Plasma Lactic Acid Fredrick Calcium Phosphorus Magnesium AST ALT Alkaline Phosphatase Total Creatine Kinase CK-MB (CK-2) Troponin I Total Protein Albumin Triglycerides HDL Cholesterol Procalcitonin Urine Glucose (UA) Urine Blood Urine Bacteria Urine Mucus 10/28/19 10/28/19 10/28/19 06:51 07:28 07:55 WBC RBC Hgb Hct MCV MCHC Plt Count Neutrophils # Neutrophils # (Manual) Lymphocytes # Lymphocytes # (Manual) Metamyelocytes # (Man) Nucleated RBCs Macrocytosis ABG pH ABG pCO2 31 L ABG pO2 74 L ABG HCO3 ABG Total CO2 ABG O2 Saturation ABG Lactic Acid VBG pH VBG pCO2 VBG HCO3 Sodium Potassium Chloride Carbon Dioxide BUN Creatinine Glucose POC Glucose (mg/dL) 287 H 233 H Hemoglobin A1c Plasma Lactic Acid Fredrick Calcium Phosphorus Magnesium AST ALT Alkaline Phosphatase Total Creatine Kinase CK-MB (CK-2) Troponin I Total Protein Albumin Triglycerides HDL Cholesterol Procalcitonin Urine Glucose (UA) Urine Blood Urine Bacteria Urine Mucus 10/28/19 10/28/19 10/28/19 09:04 10:46 11:47 WBC RBC Hgb Hct MCV MCHC Plt Count Neutrophils # Neutrophils # (Manual) Lymphocytes # Lymphocytes # (Manual) Metamyelocytes # (Man) Nucleated RBCs Macrocytosis ABG pH ABG pCO2 ABG pO2 ABG HCO3 ABG Total CO2 ABG O2 Saturation ABG Lactic Acid VBG pH VBG pCO2 VBG HCO3 Sodium Potassium Chloride Carbon Dioxide BUN Creatinine Glucose POC Glucose (mg/dL) 244 H 195 H 184 H Hemoglobin A1c Plasma Lactic Acid Fredrick Calcium Phosphorus Magnesium AST ALT Alkaline Phosphatase Total Creatine Kinase CK-MB (CK-2) Troponin I Total Protein Albumin Triglycerides HDL Cholesterol Procalcitonin Urine Glucose (UA) Urine Blood Urine Bacteria Urine Mucus 10/28/19 10/28/19 10/28/19 12:50 12:56 14:07 WBC 12.7 H RBC 2.88 L Hgb 9.4 L Hct 30.1 L MCV 104.4 H MCHC Plt Count Neutrophils # 11.4 H Neutrophils # (Manual) Lymphocytes # 0.6 L Lymphocytes # (Manual) Metamyelocytes # (Man) Nucleated RBCs Macrocytosis ABG pH ABG pCO2 ABG pO2 ABG HCO3 ABG Total CO2 ABG O2 Saturation ABG Lactic Acid VBG pH VBG pCO2 VBG HCO3 Sodium Potassium Chloride Carbon Dioxide BUN Creatinine Glucose POC Glucose (mg/dL) 177 H 152 H Hemoglobin A1c Plasma Lactic Acid Fredrick Calcium Phosphorus Magnesium AST ALT Alkaline Phosphatase Total Creatine Kinase CK-MB (CK-2) Troponin I Total Protein Albumin Triglycerides HDL Cholesterol Procalcitonin Urine Glucose (UA) Urine Blood Urine Bacteria Urine Mucus 10/28/19 10/28/19 10/28/19 15:00 15:59 18:00 WBC RBC Hgb Hct MCV MCHC Plt Count Neutrophils # Neutrophils # (Manual) Lymphocytes # Lymphocytes # (Manual) Metamyelocytes # (Man) Nucleated RBCs Macrocytosis ABG pH ABG pCO2 ABG pO2 ABG HCO3 ABG Total CO2 ABG O2 Saturation ABG Lactic Acid VBG pH VBG pCO2 VBG HCO3 Sodium Potassium Chloride Carbon Dioxide BUN Creatinine Glucose POC Glucose (mg/dL) 118 H 107 H 137 H Hemoglobin A1c Plasma Lactic Acid Fredrick Calcium Phosphorus Magnesium AST ALT Alkaline Phosphatase Total Creatine Kinase CK-MB (CK-2) Troponin I Total Protein Albumin Triglycerides HDL Cholesterol Procalcitonin Urine Glucose (UA) Urine Blood Urine Bacteria Urine Mucus 10/28/19 10/28/19 10/28/19 18:51 20:42 21:38 WBC RBC Hgb Hct MCV MCHC Plt Count Neutrophils # Neutrophils # (Manual) Lymphocytes # Lymphocytes # (Manual) Metamyelocytes # (Man) Nucleated RBCs Macrocytosis ABG pH ABG pCO2 ABG pO2 ABG HCO3 ABG Total CO2 ABG O2 Saturation ABG Lactic Acid VBG pH VBG pCO2 VBG HCO3 Sodium Potassium Chloride Carbon Dioxide BUN Creatinine Glucose POC Glucose (mg/dL) 116 H 104 H 102 H Hemoglobin A1c Plasma Lactic Acid Fredrick Calcium Phosphorus Magnesium AST ALT Alkaline Phosphatase Total Creatine Kinase CK-MB (CK-2) Troponin I Total Protein Albumin Triglycerides HDL Cholesterol Procalcitonin Urine Glucose (UA) Urine Blood Urine Bacteria Urine Mucus 10/28/19 10/29/19 10/29/19 22:47 00:03 01:03 WBC RBC Hgb Hct MCV MCHC Plt Count Neutrophils # Neutrophils # (Manual) Lymphocytes # Lymphocytes # (Manual) Metamyelocytes # (Man) Nucleated RBCs Macrocytosis ABG pH ABG pCO2 ABG pO2 ABG HCO3 ABG Total CO2 ABG O2 Saturation ABG Lactic Acid VBG pH VBG pCO2 VBG HCO3 Sodium Potassium Chloride Carbon Dioxide BUN Creatinine Glucose POC Glucose (mg/dL) 138 H 190 H 194 H Hemoglobin A1c Plasma Lactic Acid Fredrick Calcium Phosphorus Magnesium AST ALT Alkaline Phosphatase Total Creatine Kinase CK-MB (CK-2) Troponin I Total Protein Albumin Triglycerides HDL Cholesterol Procalcitonin Urine Glucose (UA) Urine Blood Urine Bacteria Urine Mucus 10/29/19 10/29/19 10/29/19 02:04 03:01 03:54 WBC RBC Hgb Hct MCV MCHC Plt Count Neutrophils # Neutrophils # (Manual) Lymphocytes # Lymphocytes # (Manual) Metamyelocytes # (Man) Nucleated RBCs Macrocytosis ABG pH ABG pCO2 ABG pO2 ABG HCO3 ABG Total CO2 ABG O2 Saturation ABG Lactic Acid VBG pH VBG pCO2 VBG HCO3 Sodium Potassium Chloride Carbon Dioxide BUN Creatinine Glucose POC Glucose (mg/dL) 172 H 146 H 113 H Hemoglobin A1c Plasma Lactic Acid Fredrick Calcium Phosphorus Magnesium AST ALT Alkaline Phosphatase Total Creatine Kinase CK-MB (CK-2) Troponin I Total Protein Albumin Triglycerides HDL Cholesterol Procalcitonin Urine Glucose (UA) Urine Blood Urine Bacteria Urine Mucus 10/29/19 10/29/19 10/29/19 04:00 04:00 05:11 WBC 14.2 H RBC 2.86 L Hgb 9.5 L Hct 29.8 L MCV 104.4 H MCHC Plt Count Neutrophils # Neutrophils # (Manual) Lymphocytes # Lymphocytes # (Manual) Metamyelocytes # (Man) Nucleated RBCs Macrocytosis ABG pH ABG pCO2 ABG pO2 ABG HCO3 ABG Total CO2 ABG O2 Saturation ABG Lactic Acid VBG pH VBG pCO2 VBG HCO3 Sodium 146 H Potassium Chloride 118 H Carbon Dioxide BUN 45 H Creatinine 1.30 H Glucose 116 H POC Glucose (mg/dL) 153 H Hemoglobin A1c Plasma Lactic Acid Fredrick Calcium 7.2 L Phosphorus 1.7 L Magnesium AST ALT 68 H Alkaline Phosphatase Total Creatine Kinase CK-MB (CK-2) Troponin I Total Protein 4.2 L Albumin 1.7 L Triglycerides HDL Cholesterol Procalcitonin Urine Glucose (UA) Urine Blood Urine Bacteria Urine Mucus 10/29/19 10/29/19 10/29/19 05:59 06:48 07:46 WBC RBC Hgb Hct MCV MCHC Plt Count Neutrophils # Neutrophils # (Manual) Lymphocytes # Lymphocytes # (Manual) Metamyelocytes # (Man) Nucleated RBCs Macrocytosis ABG pH ABG pCO2 33 L ABG pO2 78 L ABG HCO3 ABG Total CO2 ABG O2 Saturation ABG Lactic Acid VBG pH VBG pCO2 VBG HCO3 Sodium Potassium Chloride Carbon Dioxide BUN Creatinine Glucose POC Glucose (mg/dL) 148 H 138 H Hemoglobin A1c Plasma Lactic Acid Fredrick Calcium Phosphorus Magnesium AST ALT Alkaline Phosphatase Total Creatine Kinase CK-MB (CK-2) Troponin I Total Protein Albumin Triglycerides HDL Cholesterol Procalcitonin Urine Glucose (UA) Urine Blood Urine Bacteria Urine Mucus 05/10/29/19 10/29/19 08:07 10:27 11:28 WBC RBC Hgb Hct MCV MCHC Plt Count Neutrophils # Neutrophils # (Manual) Lymphocytes # Lymphocytes # (Manual) Metamyelocytes # (Man) Nucleated RBCs Macrocytosis ABG pH ABG pCO2 ABG pO2 ABG HCO3 ABG Total CO2 ABG O2 Saturation ABG Lactic Acid VBG pH VBG pCO2 VBG HCO3 Sodium Potassium Chloride Carbon Dioxide BUN Creatinine Glucose POC Glucose (mg/dL) 126 H 210 H 209 H Hemoglobin A1c Plasma Lactic Acid Fredrick Calcium Phosphorus Magnesium AST ALT Alkaline Phosphatase Total Creatine Kinase CK-MB (CK-2) Troponin I Total Protein Albumin Triglycerides HDL Cholesterol Procalcitonin Urine Glucose (UA) Urine Blood Urine Bacteria Urine Mucus 10/29/19 10/29/19 10/29/19 13:32 15:29 17:54 WBC RBC Hgb Hct MCV MCHC Plt Count Neutrophils # Neutrophils # (Manual) Lymphocytes # Lymphocytes # (Manual) Metamyelocytes # (Man) Nucleated RBCs Macrocytosis ABG pH ABG pCO2 ABG pO2 ABG HCO3 ABG Total CO2 ABG O2 Saturation ABG Lactic Acid VBG pH VBG pCO2 VBG HCO3 Sodium Potassium Chloride Carbon Dioxide BUN Creatinine Glucose POC Glucose (mg/dL) 176 H 146 H 133 H Hemoglobin A1c Plasma Lactic Acid Fredrick Calcium Phosphorus Magnesium AST ALT Alkaline Phosphatase Total Creatine Kinase CK-MB (CK-2) Troponin I Total Protein Albumin Triglycerides HDL Cholesterol Procalcitonin Urine Glucose (UA) Urine Blood Urine Bacteria Urine Mucus 10/29/19 10/29/19 10/29/19 17:55 17:55 19:57 WBC 15.4 H RBC 3.03 L Hgb 10.1 L Hct 31.6 L MCV 104.4 H MCHC Plt Count Neutrophils # 13.8 H Neutrophils # (Manual) Lymphocytes # 0.9 L Lymphocytes # (Manual) Metamyelocytes # (Man) Nucleated RBCs Macrocytosis ABG pH ABG pCO2 ABG pO2 ABG HCO3 ABG Total CO2 ABG O2 Saturation ABG Lactic Acid VBG pH VBG pCO2 VBG HCO3 Sodium 146 H Potassium Chloride 120 H Carbon Dioxide 21 L BUN 45 H Creatinine Glucose 131 H POC Glucose (mg/dL) 164 H Hemoglobin A1c Plasma Lactic Acid Fredrick Calcium 7.2 L Phosphorus Magnesium AST ALT Alkaline Phosphatase Total Creatine Kinase CK-MB (CK-2) Troponin I Total Protein Albumin Triglycerides HDL Cholesterol Procalcitonin Urine Glucose (UA) Urine Blood Urine Bacteria Urine Mucus Assessment and Plan Assessment: This is a 79-year-old gentleman poorly controlled diabetic admitted in acute nonketotic hyperosmolar diabetes with severe hyperglycemia POA. The patient carr ffered acute hypoxic respiratory failure requiring intubation and now not responding off sedation. His course was complicated with sepsis and septic shock along with kidney failure and ischemic hepatitis. Today he went into atrial fibrillation/ controlled. His examination shows a very poor prognosis with only a [place] Coma Scale of 3. This patient however did receive DILAUDID this morning at 6 AM. Would strongly recommend that all types of opioids narcotics medications that can cause sedation be avoided if at all possible. The patient only had a minimal grimacing noted when the ET tube was moved around with some eye twitching. Other than this there was very minimal on his examination. We will repeat the EEG morning due to technical problems and a stat computed tomography scan of the head will be obtained today to see if there is any progression or evidence that the patient has had an ischemic infarct. I would recommend we have family meeting tomorrow to discuss long-term pepe gement and care. Overall this patient's prognosis remains very poor in light of all his comorbidities. Plan: 1. Repeat EEG tomorrow morning. 2. Computed tomography scan of the head tonight. 3. JAEL Orozco Thank you for this consultation. Neurology will follow closely throughout this admission. Further recommendations will be made as this case evolves.
[2019-10-29 21:07] LABS: Glucose,Whole Blood 172 mg/dL (75-99)
[2019-10-29 22:01] LABS: Glucose,Whole Blood 202 mg/dL (75-99)
[2019-10-29 23:14] LABS: Glucose,Whole Blood 211 mg/dL (75-99)
--- NOTE | 2019-10-29 23:14 | CT ---
EXAMINATION TYPE: CT brain wo con DATE OF EXAM: 10/29/2019 COMPARISON: 10/21/2019 HISTORY: AMS CT DLP: 1142.4 mGycm Automated exposure control for dose reduction was used. There is cerebral atrophy. There is no mass effect nor midline shift. There is no sign of intracrania l hemorrhage. There is enlargement of the ventricles. The calvarium is intact. IMPRESSION: Cerebral atrophy. No acute intracranial abnormality. No change compared to old exam.
[2019-10-29 23:56] LABS: Glucose,Whole Blood 232 mg/dL (75-99)
[2019-10-30] MEDS: AMIODARONE 300 MG in DEXTROSE 5% IN WATER 250 ML IV SCH ×8 (00:03→20:26)
[2019-10-30] MEDS: metroNIDAZOLE-NS PMX 500 MG in SALINE 1 100ML.BAG IVPB SCH ×4 (00:06→23:08)
[2019-10-30] MEDS: HEPARIN SODIUM,PORCINE 5,000 UNIT/ML 1 ML VIAL SQ SCH ×4 (00:06→23:08)
[2019-10-30 00:59] LABS: Glucose,Whole Blood 228 mg/dL (75-99)
[2019-10-30 02:07] LABS: Glucose,Whole Blood 188 mg/dL (75-99)
[2019-10-30 03:06] LABS: Glucose,Whole Blood 164 mg/dL (75-99)
[2019-10-30 04:18] LABS: Glucose,Whole Blood 151 mg/dL (75-99)
[2019-10-30] MEDS: PIPERACILLIN-TAZOBACTAM 3.375 GM in SODIUM CHLORIDE 0.9% 100 ML IVPB SCH ×3 (04:18→20:22)
[2019-10-30 05:12] LABS: Glucose,Whole Blood 149 mg/dL (75-99)
[2019-10-30 05:39] LABS: Calcium 7.2 mg/dL (8.4-10.2); Magnesium 1.9 mg/dL (1.6-2.3); Phosphorus 2.5 mg/dL (2.5-4.5); Potassium 3.4 mmol/L (3.5-5.1)
[2019-10-30] MEDS ORDERED: POTASSIUM CHLORIDE ER 20 MEQ TAB.ER PO SCH (06:00)
[2019-10-30 06:09] LABS: Glucose,Whole Blood 129 mg/dL (75-99)
[2019-10-30] MEDS: POTASSIUM BICARBONATE/CIT AC 20 MEQ TABLET.EFF NG-TUBE SCH ×2 (06:14→08:03)
[2019-10-30 06:51] LABS: Glucose,Whole Blood 160 mg/dL (75-99)
[2019-10-30] MEDS: INSULIN REGULAR 100 UNIT in SODIUM CHLORIDE 0.9% 100 ML IV SCH ×2 (06:53→20:23)
[2019-10-30 07:37] LABS: ABG Base Excess -4.6 mmol/L; ABG HCO3 20 mmol/L (21-25); ABG Oxygen Saturation 98.8 % (94-97); ABG PCO2 30 mmHg (35-45); ABG PH 7.43 (7.35-7.45); ABG PO2 108 mmHg (83-108); ABG TCO2 21 mmol/L (19-24); Allen Test Performed? Yes
[2019-10-30 08:07] LABS: Glucose,Whole Blood 172 mg/dL (75-99)
--- NOTE | 2019-10-30 08:15 | XR ---
EXAMINATION TYPE: XR chest 1V DATE OF EXAM: 10/30/2019 COMPARISON: 10/29/2019 INDICATION: Tube placement TECHNIQUE: Single frontal view of the chest is obtained. FINDINGS: The heart size is normal. The pulmonary vasculature is normal. Mild platelike atelectasis at the right base. Endotracheal tube tip is above akbar. Nasogastric tube transverses the thorax. Left central venous c atheter is tip in the superior vena cava region IMPRESSION: 1. Mild right basilar plate atelectasis, lung infiltrates are improving from comparison. 2. Lines and catheters discussed above.
[2019-10-30] MEDS ORDERED: FUROSEMIDE 10 MG/ML 2 ML VIAL IV ONE (08:30)
[2019-10-30] MEDS: CHLORHEXIDINE GLUCONATE 15 ML CUP MUCOUS MEM SCH ×2 (08:50→20:22)
[2019-10-30] MEDS: PANTOPRAZOLE 40 MG/10 ML VIAL IV SCH (08:50)
[2019-10-30] MEDS: ASPIRIN 81 MG PO SCH (08:50)
[2019-10-30 09:39] LABS: Glucose,Whole Blood 176 mg/dL (75-99)
[2019-10-30 10:58] LABS: Glucose,Whole Blood 123 mg/dL (75-99)
[2019-10-30 12:04] LABS: Glucose,Whole Blood 170 mg/dL (75-99)
--- NOTE | 2019-10-30 12:40 | P.PN ---
Subjective Progress Note Date: 10/30/19 Principal diagnosis: Hypovolemic shock, possible septic shock secondary to abdominal sepsis. 80-year-old male patient known history of dementia, diabetes hypertension osteoarthritis in addition to abdominal aortic aneurysm, presented to the ED with altered mentation and severe dehydration. The patient's was noted to have elevated blood sugars at home which prompted this hospital visit. He was unable to provide any history at time of admission. He was confused and disoriented and his condition was progressively getting worse over this past few weeks. He apparently had generalized weakness, falls, and he was not seeking any medical attention. He has Alzheimer's dementia. His has Alzheimer's dementia also. Apparently his oral intake has been minimal and the patient was drinking only 4 L of soda on a daily basis. He has been noncompliant his diabetic medications also. A blood sugar of more than 1800. Sodium was 116. Potassium was 5.7 with a chloride of 74 and a serum bicarbonate 8 with an anion gap of 34. Creatinine was 2.4 with a BUN of 33. The serum lactate was 11.7. Troponin was 0.8. Phosphorus was 8.8. Lipase was 229. UA showed +4 glucose and the serum acetone was negative. The patient received a total of 4 L of IV fluids in the emergency department. He was started on an insulin drip. Currently the patient is on half-normal saline with 20 mEq of potassium. The patient metabolic acidosis improving. Based on the follow-up blood gases the pH was 7.0 and septal 7.13. Serum bicarb is also on the rise. The serum pCO2 is 26. Troponin 38. This was done and FiO2 of 36%. Sodium level improved and septal 131 and a potassium level is at 3.8. Anion gap is improving is down to 28. Creatinine is still at 2.1. Most recent blood sugar shows that the sugar is still elevated above 600 with a serum measurement of 1230. The chest x-ray shows some subsegmental atelectasis in the right lower lobe. CAT scan of the brain shows no evidence of any acute hemorrhage. There is some degenerative changes and nonspecific white matter changes consistent with remote ischemia. EKG showing sinus tachycardia along with Q waves over the anteroseptal leads consistent with an old infarct. Heart rate is around 102. On today's evaluation of 10/22/2019, the patient is still lethargic and somnolent and encephalopathic. He is unable to volunteer any history. He has dementia. Furthermore there has been significant metabolic disturbances, leading to his impaired mentation. In terms of his blood sugar control, the patient has been on insulin drip at 3 units an hour. His IV fluids have been running in the form of D5 half-normal saline along with 20 mEq of potassium at the rate of 150 mL an hour. The patient was receiving another 2 L of IV fluid bolus based on the fact that it looks quite dry with very dry mucosal membranes on today's evaluation. In terms of his blood sugar control, the blood sugar was steadily going down and after the blood sugar went down below 300 was switched him to a D5 half-normal saline solution. His anion gap is at 10. The serum bicarb is at 18. His lactic acid level has dropped down to 6.0. His troponin peaked at 2.2. Denies having any chest pain. Note that his based on troponin was at 0.8. His EKG showed old Q-wave changes over the anteroseptal leads and echocardiac Tito was done today and the patient was found to have a ejection fraction estimated to be around 30-35% along with anteroseptal and apical hypokinesis. No evidence of an aortic valve stenosis. Unable to estimate the right-sided pressures. Unable to have a good visualization of the rest of the valves. His white cell count of 15.4. His antibiotic coverage includes a combination of Rocephin and Zithromax and Diflucan for now. There is some erythema along the penile tip and the Maradiaga catheter is in place. Repeat chest x-ray from today shows atelectatic changes in the right lower lobe. No other significant abnormalities have been noted. The patient is currently on 4 L of oxygen by nasal cannula with a pulse ox of 98%. He still has some underlying sinus tachycardia. On today's evaluation of 10/23/2019 the patient's condition decompensated. I have already contacted the son and updated them on his father's condition. Note that by yesterday afternoon, the patient became progressively more restless, agitated, shortness of breath, and he was also indicating the possibility of abdominal distention and pain. He was hard to communicate with him as the patient was not providing any meaningful information and he was altered mentally. Nevertheless, we suspected that the patient was having increased abdominal pain and discomfort. At that point, decided to insert an NG tube and immediately approximately a liter of gastric juice was obtained as a return. Abdomen remained quite tender and distended. At that point, the patient was also becoming more hypotensive. He was given more IV fluids. He was intubated and placed on a mechanical ventilator. Post intubation, the patient became hypotensive and he was started on IV pressors. Blood gases was noted. Chest x- ray was noted. The patient was developing a right lower lobe pulmonary infiltration. He was taken down for a CAT scan of the abdomen and pelvis and the CAT scan showed evidence of a infiltrate in the right lung base and fatty i nfiltration of the liver and some multiple calcified gallstones and the bile ducts were not dilated. At the same time, the CAT scan showed a fusiform 4.4 cm lower abdominal aortic aneurysm. There was no evidence of any retroperitoneal lymphadenopathy. There was multiple diverticula in the sigmoid colon and multiple dilated air fluid filled loops of the small bowel and the small bowel was dilated up to 4 cm in size. There was also mild wall thickening of the ascending colon. There was also minimal fat stranding around the sigmoid colon. There was osteoarthritis of the right hip. Antibiotics were modified and the patient was started on IV Zosyn. This morning, the patient is sedated with propofol at 20 g. This is to be switched to Versed at the patient's triglyceride level came up above 500. The patient is receiving IV fluids in the form of normal saline at rate of 100 mL an hour. His urine output is diminished and the patient's creatinine is at 2.5. The neck fluid balance over the past 24 hours has been +5.3 L. The patient is currently on norepinephrine infusion running at 0.4 mcg/kg per minute. The patient is also on insulin drip at 9 units an hour. Noted the blood sugar control is improved and the patient's lactic acid level was also improving it was down to 3.7. During the course of this treatment, the patient developed also a shock liver with elevated AST and ALT. He developed an acute kidney injury on top of his chronic kidney failure with a creatinine maxing at 2.7 down to 2.5. The patient is currently on a mechanical ventilator on assist control mode at the rate of 28 with tidal volume of 500 and FiO2 of 60% with a PEEP of 5. Morning blood gases showed a pH of 7.39 with a pCO2 of 26 and pO2 of 185. Morning chest x-ray showed right lower lobe pulmonary infiltration and subsequently a triple-lumen catheter was inserted and the supportive living catheter was inserted without any complications. Surgical consultation was also obtained regarding the abdominal findings. On 10/24/2019, the patient remains critically ill. The patient remains in shock and this is most likely a septic shock following an acute hypovolemic shock. The patient initially presented with HHS. Subsequently the patient started acting septic and the source is most likely the abdomen. The patient had a elevated TROPONIN level. Lactic acid levels were elevated and the patient had abdominal pain and distention. NG tube was inserted and a CAT scan of the abdomen was done that showed findings suggesting small bowel obstruction and some inflammatory changes involving the ascending colon and the sigmoid. Nevertheless, there was no evidence of any acute abdomen or pneumoperitoneum with ischemic bowel. The patient was kept on Zosyn and Flagyl was added. He did have difficulties with his hemodynamics and the patient was on and off becoming hypotensive and he was getting IV fluids to maintain a CVP above 10. The patient is currently receiving normal saline at the rate of 100 mL an hour. He is also on vasopressin at physiologic dose of 0.03 units per minute and the patient is on norepinephrine running at 0.38 g per KG per minute. Abdomen is still slightly distended and the patient is a bit tender and he can grimace upon abdominal [id number] white him being sedated with Versed which is running at 6 mg an hour. Gen. surgery will be asked to evaluate this patient. NG tube is in place and output over the past 24 hours has been in the order of 400 mL of gastric material. No bowel movements yet. He is having episodes of fever and the patient has had a temperature max of 11.1 and a temperature is down to 99.8. The patient had 2 additional sets of blood cultures sent patient was given a dose of vancomycin yesterday. This was done pending further cultures. Meanwhile, the patient remains on a mechanical ventilator. This morning, he remained on assist control mode with a tidal volume of 500 and FiO2 of 40% with a PEEP of 5. Chest x-ray is showing stable bilateral pulmonary infiltrates and atelectatic changes in lung bases. ET tube in good location so in the OG-tube. Her blood gases showed a pH of 7.39 with a pCO2 of 25 and pO2 of 67 and this was on above-mentioned ventilator setting. Lactic acid level is gradually dropped down to 3.0. The patient has shock liver. LFTs are considerably abnormal and the numbers are improving. AST is down to 2153 and ALT is down to 1107. As stated, neck yesterday dropped down to 3.2, the creatinine is still elevated at 2.2 with a BUN of 39 and the patient has a mild anion gap metabolic acidosis with a gap of 11 which is improved and his serum bicarbonate of 15. On today's evaluation of 10/25/2019, the patient remains critically ill. Remains intubated on a mechanical ventilator and remains sedated. On today's evaluation, he had an assist-control mode of ventilation and the patient is at the rate of 28 with a tidal volume of 500 and FiO2 of 50% with a PEEP of 5. The blood gases Show a pH of 7.51 with a pCO2 of 28 and pO2 of 65 and I think this is a essentially respiratory alkalosis as the patient's metabolic acidosis has recovered and the patient's serum bicarbonate was up to 22 while being given a bicarb infusion. The chest x-ray from today shows no significant interval change compared to yesterday's chest x-ray. There is a elevation of the right hemidiaphragm. The ET tube and NG tube remains in place. There is a left subclavian triple-lumen catheter in place. In my opinion, the patient remains quite septic. The patient is still having episodes of fever. The patient remains in shock and pressor dependent. Vasopressin is running at physiologic dose and the norepinephrine infusion has been drop down to 0.3 g per KG per minute. I had a discussion with the general surgeon and will going to continue the conservative approach. Patient is considered to be a high surgical risk for even exploration. Meanwhile, NG tube is in place and has drained approximately 900 mL of gastric material over the past 24 hours. Abdomen is slightly improved and less distended compared to yesterday. There is some mild direct tenderness without rebound tenderness. The patient is hypoactive in terms of his bowel sounds. Extremities abdomen is being done for a small bowel follow-through. The patient remains on insulin which is running at 2.5 units an hour for blood sugar control. The patient is on bicarb drip that he'll be taken off and this will decision to half-normal saline as the patient has also developed some hypernatremia. Serum bicarb is up to 21. He is having episodes of fever still. All of the repeat blood cultures came back negative. Hemoglobin is at 12.5. White cell count is at 10.7. Platelet count has dropped down to 94% is stable compared to yesterday. On 10/26/2019, the patient is currently being seen for a follow-up intubated on a mechanical ventilator in the intensive care unit. The patient remains sedated with Versed running at 6 mg an hour. While sedated and calm and comfortable and episodically requiring Dilaudid for pain control. He is on assist control rate of 22 with a tidal volume of 500 and FiO2 of 40% with a PEEP of 5. Blood gases showed a pH of 7.30 with a pCO2 of 32 and pO2 of 79 and the chest x-ray shows moderate-sized bilateral pleural effusions right more than left. ET tube is in a good location. NG tube is in good location. Output from the NG has slowed down and the patient is producing approximately 300-400 mL of NG output over the past 24 hours. The initial small bowel follow-through was consistent with small bowel obstruction as there was no passage of contrast past the jejunum. S ubsequent x-ray of the abdomen was done this morning and contrast has made it to the colon and as such there is probably there is no evidence of anatomic obstruction and this could be essentially an ileus. The patient remains nothing by mouth. The patient will be started on TPN for nutritional support. White cell count of 9.6. The sodium is at 149. BNP is 44 with a creatinine of 1.8 which is improved compared to yesterday. Most recent lactic acid level is down to 2.8. The patient was a shock liver and the AST/ALT levels are also improving based on yesterday's lab. No significant fever episodes since yesterday evening and the patient is not spiking any further temperature. Cultures are negative and the patient remains on a combination of Zosyn and Flagyl. Patient was reevaluated today on 10/27/19, remains in the ICU, intubated and mechanically ventilated. Patient's ventilator settings are assist control rate of 22 tidal volume is 500, FiO2 is 40%, PEEP is 5. ABG showed a pO2 of 80 pCO2 of 34 pH of 7.44. His drips include IV fluid at D5W 50 mL/h, TPN, Versed at 2 mg per hour, insulin at 5 units per hour, vasopressin at 0.03 units per minute. He is also on norepinephrine. 13 mcg/kg/m. Patient remains on Flagyl and Zosyn for presumptive abdominal sepsis. His CVP today is 5. Patient did have a mucoid bowel movement last night. Chest x-ray shows bilateral pleural ef fusions, right more so than left. Labs today showed relatively normal CBC, WBC count is 10.1 hemoglobin is 10.4. Electrolytes are normal sodium is improving down to 147 BUN is 42 creatinine is 1.54. Pro-calcitonin remains elevated at 8.54. Liver enzymes are improving. Patient was reevaluated today on 10/28/19, remains in the ICU, intubated and mechanically ventilated. His ventilator settings are assist control rate of 22 tidal volume is 500 FiO2 is 40% PEEP is 5. ABG showed a pO2 of 76 pCO2 of 31 and pH of 7.44 patient is on multiple drips including TPN at 10 5 mL per hour, and I cut it down to 80 mL per hour. He is on D5W which I have discontinued. He is also on insulin 21 units per hour. Vasopressin at 0.03 units per minute. Norepinephrine at 0.03 mcg/kg/MIN. Renal functioning is improving. And his urine output seems to be about 100 mL per hour. Chest x-ray continues to show right lower lobe atelectasis, consolidation, and possibly a small right-sided pleural effusion. Patient is sedated, however I have instructed the nurses to hold Versed, and assess his mental status today. Patient remains on Versed at 2 mg per hour. CBC is basically unremarkable hemoglobin is 9.4 WBC count is 12.7. BUN is 43 creatinine 1.38, steadily improving. Potassium is a bit low at 3.4, being corrected as per protocol. Pro-calcitonin remains high, and his chest x- ray is suggestive of right lower lobe consolidation. Blood cultures and urine cultures remain negative so far. Reevaluated today on 10/29/19, patient remains in the ICU, intubated and mechanically ventilated. Patient is on assist control rate of 22 tidal volume is 500 FiO2 is 40% and PEEP is 5. ABG showed a pO2 of 78 pCO2 of 33 and pH of 7.40. Patient has been off sedation for the last 24 hours. He only received 2 doses of Dilaudid last night, and he is off propofol. Remains on vasopressin at 0.03 units per minute, he is off norepinephrine, and his blood pressures seems to be holding nicely. IV fluid is at KVO. Patient is now on enteral feeding and off TPN completely. Patient had some bloody mucoid bowel movement, and it could be tested for C. diff, chest x-ray continues to show stable bibasilar ate lectasis or airspace disease with pleural effusions/small . Labs were reviewed WBC count is 14.2 hemoglobin is 9.5 electrolytes are relatively normal except for slight elevated sodium of 146. BUN continues to improve it is 45 today, and creatinine is 1.30 better compared to the last few days. Last pro-calcitonin was 8.54. Patient was reevaluated today on 10/30/19, remains in the intensive care unit, off sedation for the last 48 hours, continues to have no significant neurological response. CT of the brain was nondiagnostic. EEG was attempted yesterday, but there was excessive technical artifact. Hence it would be repeated today. Patient has a Glascow coma scale of 3. Obviously the patient is in profound coma. His narcotics and sedatives remain on hold, and he'll be reassessed again by neurology, may have to consider comfort care measures on this patient if he continues to have no significant neurological recovery. Patient is on assist control rate of 22 tidal volume is 500 FiO2 is 40% PEEP is 5. ABG showed a pO2 of 108 pCO2 of 30 pH of 7.43. Drips-medrano he is on insulin at 7.5 units per hour, he is off vasopressin and off norepinephrine he is on amiodarone 0.5 mg/m. WBC count is 15.4 hemoglobin is 10.1, BUN is 40 creatinine is 1.15 steadily improving. Objective - Vital Signs Vital signs: Vital Signs Temp 98.0 F 10/30/19 08:00 Pulse 98 10/30/19 12:00 Resp 28 H 10/30/19 12:00 BP 104/63 10/30/19 12:00 Pulse Ox 100 10/30/19 12:00 Intake & Output 10/29/19 10/30/19 10/30/19 18:59 06:59 18:59 Intake Total 8722.991 3966.000 416.058 Output Total 1025 1425 1120 Balance 818.628 903.000 -703.942 Weight 85.9 kg Intake: IV 434 347 65 .9 Sodium Chloride @ 10ml 140 111 50 /hr Piperacillin-Tazobactam 3 100 200 .375 gm In Sodium Chloride 0.9% 100 ml @ 25 mls/hr IVPB Q8H [facility] Rx#: [id number] Pressure Bag 39 36 15 Sodium Chloride 0.9% 150 55 ml @ 0.03 UNITS/MIN 4.59 mls/hr IV .Q24H INDU with Vasopressin 60 unit Rx#: [id number] metroNIDAZOLE-NS PMX 500 100 mg In Saline 1 100ml.bag @ 100 mls/hr IVPB Q8HR [facility] Rx#:[id number] Intake, IV Titration 89.628 201.000 281.058 Amount Amiodarone 300 mg In 250 Dextrose 5% in Water 250 ml @ 0.5 MG/MIN 25 mls/hr IV .Q10H [facility] Rx#: [id number] Insulin Regular 100 unit 88.341 101.000 31.058 In Sodium Chloride 0.9% 100 ml @ Per Protocol IV .Q0M [facility] Rx#:[id number] Norepinephrine 32 mg In 1.287 Sodium Chloride 0.9% 218 ml @ 0.42 MCG/KG/MIN 14. 805 mls/hr IV .[id number] [facility] Rx#:[id number] metroNIDAZOLE-NS PMX 500 100 mg In Saline 1 100ml.bag @ 100 mls/hr IVPB Q8HR [facility] Rx#:[id number] Tube Feeding 920 1180 70 Other 400 600 Output: Urine 1025 1425 1120 Other: Voiding Method Indwelling Catheter Indwelling Catheter ABP, PAP, CO, CI - Last Documented Arterial Blood Pressure 114/47 - Exam Physical Exam: Revealed an 79-year-old white male on responsive to any stimuli. Comatose. On mechanical ventilation. Head: Atraumatic, normocephalic. Endotracheal tube and orogastric tube are intact. HEENT:[Neck is supple.] [No neck masses.] [No thyromegaly.] [No JVD.] Left pupil is pinpoint, right pupil is 3 mm, reactive to light. Chest: [Symmetrical chest expansion, diminished breath sounds at the bases, no rhonchi and no wheezes.] Cardiac Exam: [Normal S1 and S2, no S3 gallop, no murmur.] Abdomen: [Flat, soft, nontender, positive bowel sounds. No rebound, no guarding.] Extremities: [No clubbing, 1+ bipedal edema and chronic venous stasis changes bilaterally. Chronic superficial ulcerations of lower extremities noted. Neurological Exam: Patient is comatose, on responsive to deep painful stimuli, pupils as noted above.. Felisha Coma Scale score is 3 Psychiatric: Could not be assessed. Skin: Superficial ulcerations lower extremities and chronic venous stasis changes. - Labs CBC & Chem 7: 10/29/19 17:55 10/30/19 05:15 Labs: Abnormal Lab Results - Last 24 Hours (Table) 10/29/19 10/29/19 10/29/19 Range/Units 13:32 15:29 17:54 WBC (3.8-10.6) k/uL RBC (4.30-5.90) m/uL Hgb (13.0-17.5) gm/dL Hct (39.0-53.0) % MCV (80.0-100.0) fL Neutrophils # (1.3-7.7) k/uL Lymphocytes # (1.0-4.8) k/uL ABG pCO2 (35-45) mmHg ABG HCO3 (21-25) mmol/L ABG O2 Saturation (94-97) % Sodium (137-145) mmol/L Potassium (3.5-5.1) mmol/L Chloride (98-107) mmol/L Carbon Dioxide (22-30) mmol/L BUN (9-20) mg/dL Glucose (74-99) mg/dL POC Glucose (mg/dL) 176 H 146 H 133 H (75-99) mg/dL Calcium (8.4-10.2) mg/dL 10/29/19 10/29/19 10/29/19 Range/Units 17:55 17:55 19:57 WBC 15.4 H (3.8-10.6) k/uL RBC 3.03 L (4.30-5.90) m/uL Hgb 10.1 L (13.0-17.5) gm/dL Hct 31.6 L (39.0-53.0) % MCV 104.4 H (80.0-100.0) fL Neutrophils # 13.8 H (1.3-7.7) k/uL Lymphocytes # 0.9 L (1.0-4.8) k/uL ABG pCO2 (35-45) mmHg ABG HCO3 (21-25) mmol/L ABG O2 Saturation (94-97) % Sodium 146 H (137-145) mmol/L Potassium (3.5-5.1) mmol/L Chloride 120 H (98-107) mmol/L Carbon Dioxide 21 L (22-30) mmol/L BUN 45 H (9-20) mg/dL Glucose 131 H (74-99) mg/dL POC Glucose (mg/dL) 164 H (75-99) mg/dL Calcium 7.2 L (8.4-10.2) mg/dL 10/29/19 10/29/19 10/29/19 Range/Units 21:06 21:59 23:13 WBC (3.8-10.6) k/uL RBC (4.30-5.90) m/uL Hgb (13.0-17.5) gm/dL Hct (39.0-53.0) % MCV (80.0-100.0) fL Neutrophils # (1.3-7.7) k/uL Lymphocytes # (1.0-4.8) k/uL ABG pCO2 (35-45) mmHg ABG HCO3 (21-25) mmol/L ABG O2 Saturation (94-97) % Sodium (137-145) mmol/L Potassium (3.5-5.1) mmol/L Chloride (98-107) mmol/L Carbon Dioxide (22-30) mmol/L BUN (9-20) mg/dL Glucose (74-99) mg/dL POC Glucose (mg/dL) 172 H 202 H 211 H (75-99) mg/dL Calcium (8.4-10.2) mg/dL 10/29/19 10/30/19 10/30/19 Range/Units 23:54 00:58 02:05 WBC (3.8-10.6) k/uL RBC (4.30-5.90) m/uL Hgb (13.0-17.5) gm/dL Hct (39.0-53.0) % MCV (80.0-100.0) fL Neutrophils # (1.3-7.7) k/uL Lymphocytes # (1.0-4.8) k/uL ABG pCO2 (35-45) mmHg ABG HCO3 (21-25) mmol/L ABG O2 Saturation (94-97) % Sodium (137-145) mmol/L Potassium (3.5-5.1) mmol/L Chloride (98-107) mmol/L Carbon Dioxide (22-30) mmol/L BUN (9-20) mg/dL Glucose (74-99) mg/dL POC Glucose (mg/dL) 232 H 228 H 188 H (75-99) mg/dL Calcium (8.4-10.2) mg/dL 10/30/19 10/30/19 10/30/19 Range/Units 03:04 04:16 05:10 WBC (3.8-10.6) k/uL RBC (4.30-5.90) m/uL Hgb (13.0-17.5) gm/dL Hct (39.0-53.0) % MCV (80.0-100.0) fL Neutrophils # (1.3-7.7) k/uL Lymphocytes # (1.0-4.8) k/uL ABG pCO2 (35-45) mmHg ABG HCO3 (21-25) mmol/L ABG O2 Saturation (94-97) % Sodium (137-145) mmol/L Potassium (3.5-5.1) mmol/L Chloride (98-107) mmol/L Carbon Dioxide (22-30) mmol/L BUN (9-20) mg/dL Glucose (74-99) mg/dL POC Glucose (mg/dL) 164 H 151 H 149 H (75-99) mg/dL Calcium (8.4-10.2) mg/dL 10/30/19 10/30/19 10/30/19 Range/Units 05:15 06:07 06:49 WBC (3.8-10.6) k/uL RBC (4.30-5.90) m/uL Hgb (13.0-17.5) gm/dL Hct (39.0-53.0) % MCV (80.0-100.0) fL Neutrophils # (1.3-7.7) k/uL Lymphocytes # (1.0-4.8) k/uL ABG pCO2 (35-45) mmHg ABG HCO3 (21-25) mmol/L ABG O2 Saturation (94-97) % Sodium 148 H (137-145) mmol/L Potassium 3.4 L (3.5-5.1) mmol/L Chloride 122 H (98-107) mmol/L Carbon Dioxide 20 L (22-30) mmol/L BUN 40 H (9-20) mg/dL Glucose 158 H (74-99) mg/dL POC Glucose (mg/dL) 129 H 160 H (75-99) mg/dL Calcium 7.2 L (8.4-10.2) mg/dL 10/30/19 10/30/19 10/30/19 Range/Units 07:26 08:06 09:38 WBC (3.8-10.6) k/uL RBC (4.30-5.90) m/uL Hgb (13.0-17.5) gm/dL Hct (39.0-53.0) % MCV (80.0-100.0) fL Neutrophils # (1.3-7.7) k/uL Lymphocytes # (1.0-4.8) k/uL ABG pCO2 30 L (35-45) mmHg ABG HCO3 20 L (21-25) mmol/L ABG O2 Saturation 98.8 H (94-97) % Sodium (137-145) mmol/L Potassium (3.5-5.1) mmol/L Chloride (98-107) mmol/L Carbon Dioxide (22-30) mmol/L BUN (9-20) mg/dL Glucose (74-99) mg/dL POC Glucose (mg/dL) 172 H 176 H (75-99) mg/dL Calcium (8.4-10.2) mg/dL 10/30/19 10/30/19 Range/Units 10:57 12:03 WBC (3.8-10.6) k/uL RBC (4.30-5.90) m/uL Hgb (13.0-17.5) gm/dL Hct (39.0-53.0) % MCV (80.0-100.0) fL Neutrophils # (1.3-7.7) k/uL Lymphocytes # (1.0-4.8) k/uL ABG pCO2 (35-45) mmHg ABG HCO3 (21-25) mmol/L ABG O2 Saturation (94-97) % Sodium (137-145) mmol/L Potassium (3.5-5.1) mmol/L Chloride (98-107) mmol/L Carbon Dioxide (22-30) mmol/L BUN (9-20) mg/dL Glucose (74-99) mg/dL POC Glucose (mg/dL) 123 H 170 H (75-99) mg/dL Calcium (8.4-10.2) mg/dL Microbiology - Last 24 Hours (Table) 10/28/19 13:55 Gram Stain - Final Sputum Sputum Culture - Final Layne albicans 10/23/19 21:30 Blood Culture - Final Blood No Growth after 144 hours 10/23/19 21:45 Blood Culture - Final Blood No Growth after 144 hours 10/28/19 12:10 Urine Culture - Final Urine,Catheterized 10/28/19 14:00 Blood Culture - Preliminary Blood No Growth after 24 hours Assessment and Plan Assessment: Impression: Acute hypoxic respiratory failure secondary to hypovolemic and septic shock. Acute abdominal sepsis, small bowel ileus/obstruction, remains on Zosyn and Flagyl. Possible right lower lobe pneumonia, hospital-acquired or could be aspiration related. Acute hyperosmolar nonketotic diabetic syndrome with profound hypovolemia and volume depletion/dehydration. Acute kidney injury secondary to hypovolemia and possible septic shock with acute tubular necrosis. Improving. Altered mental status on presentation secondary to hyperosmolar nonketotic state. History of Alzheimer's dementia Type 2 diabetes Pseudohyponatremia on presentation secondary to severe hyperglycemia. 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 History of 4.6 cm distal abdominal aortic aneurysm and previous iliac stent the graft placement. Acute shock liver secondary to hypotension on presentation. Improving. History of ischemic cardiomyopathy and LV dysfunction, ejection fraction of 30%. Severe lactic acidosis on presentation most likely secondary to abdominal sepsis and ischemic bowel. Coma with a Baldwin scale of 3, EEG is pending, CT of the brain is nondiagnostic. Recommendation: Continue ventilatory support. Continue to hold sedatives and narcotics Awaiting further neurological input, may have to consider comfort care measures on this patient. Continue GI and DVT prophylaxis. Continue insulin. Continue antibiotics/Zosyn and Flagyl. Continue IV fluid at KVO. Continue enteral feeding Overall prognosis is extremely poor and guarded. May have to seriously consider addressing his condition with the family and proceed with comfort care measures if family is agreeable. Critical care time is 33 minutes. We'll continue to follow Time with Patient: Greater than 30
--- NOTE | 2019-10-30 12:56 | PN ---
PROGRESS NOTE Patient is seen for followup for acute kidney injury and hypernatremia. His sodium is again edging up. Patient is maintained on free water down the feeding tube. Sedation has been off since 10/26. Patient has not been waking up. Neurology has been consulted. An EEG is planned for today. Patient is off of Levophed. His urine output is at about 100-150 mL an hour. Renal function continues to improve with serum creatinine down to 1.15 now. PHYSICAL EXAMINATION: Today, patient remains on the vent. Blood pressure was 122/62 this morning, heart rate 93 per minute, he is afebrile. FiO2 is at 40%. Examination of the heart S1, S2. Examination of the lungs, bilateral breath sounds are heard. Abdomen is soft. Examination of the lower extremities shows edema 2+ bilaterally upper and lower extremities. LABS: Show sodium 148, potassium 3.4, chloride 122, CO2 is 20, BUN 40, creatinine 1.15, calcium 7.2. ASSESSMENT: 1. Acute kidney injury secondary to hypotension, hypoperfusion, ATN nonoliguric, currently improved. 2. Mild hypervolemia. I will give a dose of IV Lasix. 3. Hypokalemia, currently being replaced. 4. Hypernatremia associated with free water deficit, maintained on free water down the feeding tube, increased to 400 mL q.4 hours. 5. Bowel obstruction, ileus currently improved. 6. Encephalopathy. EEG to be performed today. 7. Acute hypoxic respiratory failure. Patient remains on the vent. 8. Ischemic cardiomyopathy, ejection fraction 30%. 9. Acute hyperosmolar nonketotic diabetic state on admission, now resolved. PLAN: Increase free water orally. Replace potassium. Lasix 20 mg IV push x1 today. MMODL / IJN: [id number] /
[2019-10-30 13:09] LABS: Glucose,Whole Blood 208 mg/dL (75-99)
[2019-10-30 14:23] LABS: Glucose,Whole Blood 194 mg/dL (75-99)
--- NOTE | 2019-10-30 14:23 | EEG ---
ELECTROENCEPHALOGRAM REPORT DATE OF SERVICE: 10/30/2019 This is an EEG performed on an 79-year-old gentleman who was admitted with a nonketotic hyperosmolar diabetes and has been unresponsive on the ventilator. This EEG is performed to rule out possible subclinical seizure activity. The CT scan of the head does not show any evidence of ischemic infarct, cerebral edema. TECHNICAL REPORT: This is an inpatient EEG performed on the [employer] EEG monitor with electrodes placed according to the International 10-20 system and a single EKG channel. Simultaneous video EEG monitoring was performed. This EEG was reviewed in both the longitudinal bipolar, common average referential and transverse montages. Photic stimulation was performed. Hyperventilation was not performed. The recording begins with the background suppressed with intermittent periods of 5-10 seconds of a low-voltage background rhythm that appears at 7-8 Hz and appears symmetric. Often during the EEG, initially the T4 electrode placement was interfering causing muscle artifact. At 10:11:30 tactile stimulation is provided. There is reactivity to the background. There is minimal movement noted of the patient spontaneously by video EEG. Photic stimulation was performed at various flash frequencies and failed to elicit a consistent driving response. During photic stimulation, the background continued to be suppressed with intermittent periods of up to 6 - 10 seconds of a background rhythm consistent with an alpha rhythm appearing symmetrically in the posterior head region. The EKG electrode appeared to have difficulty technically, but at times did appear irregular. It is noted that when the nurse is in the room that there is increased activity occurring in the T4 electrode placement to do with muscle artifact. The maximum frequencies of the posterior dominant rhythm appears to achieve it is up to 9 Hz and appears symmetric. IMPRESSION: This is an abnormal EEG due to prolonged periods of background suppression intermixed with 3 of the 10 seconds of electrographically wake architecture. The background during the periods of suppression is prolonged without any reactivity. During the periods where the patient assumes an 8 to maximum 10 hertz posterior dominant rhythm this background is reactive. Clinically, the patient still is not moving, maintains eyes closed. No electrographic seizures were noted. No evidence of focal slowing or clinical seizures was observed. CLINICAL CORRELATION: The overall EEG does suggest cerebral dysfunction consistent with encephalopathy. These periods described as brief wakefulness, however, could represent the patient having episodes of breakthrough wakefulness/ alerting response. However, in his setting in history of potentially anoxic brain injury this could also represent an alpha coma. This does not exclude what is termed as an alpha coma. This EEG does not rule out underlying seizure tendency thus further clinical correlation is needed. Serial EEGs are recommended and/or clinically available at a more prolonged overnight study. This EEG does suggest there are episodes throughout the recording where there is generalized suppression consistent with generalized diffuse cerebral dysfunction. However, there are also brief periods where the patient may be alerting and could be showing normal wakefulness versus an alpha coma. Further clinical correlation is needed. MMSOULEYMANEL / IJN: [id number] / JEANIE
[2019-10-30 15:15] LABS: Glucose,Whole Blood 129 mg/dL (75-99)
--- NOTE | 2019-10-30 15:53 | P.PN ---
Progress Note - Text Progress Note Date: 10/30/19 Interval history: 79-year-old male with PMH of diabetes mellitus on oral hypoglycemics, hyperte nsion presents the ED for altered mentation. Apparently, patient was visited by his nurse who noted an extremely high blood glucose which prompted his hospital visit. Patient is altered and he is unable to provide any meaningful history. Majority of documentation was obtained from chart review and discussion with his son. Apparently, patient has been confused and disoriented which is progressiv ifeoma been worsening over the past 2 weeks. His son reports that the patient fell a week ago and did not seek medical attention. Patient lives with his who is suffering from advanced Alzheimer's dementia and is currently in hospice. According to the son, patient drinks 4 L of soda on a daily basis. Son reports that patient is noncompliant with her diabetic diet. In the ED, vital signs showed a T low of 97.5 Fahrenheit, pulse of 102, tachypnea with respiratory rate of 28, BP of 85/49 and 89% on room air. CBC showed leukocytosis of 11 and MCV of 124.1. ABG showed pH of 7, pCO2 19, bic arbonate of 8. CMP showed sodium of 116, potassium of 5.7, chloride of 74, bicarbonate of 8, BUN 33, creatinine 2.18, glucose greater than 1875. Troponin was 0.881 with EKG showing sinus tachycardia. Urinalysis shows 4+ glucose and trace blood. Acetone was negative. CT brain was negative for hemorrhage but showed slightly hyperdense left MCA compared to right. Chest x-ray showed possible right lower lobe infiltrate. Patient is admitted to ICU for sepsis, troponin elevation and diabetic ketoacidosis. Intubated. Patient developed ischemic hepatitis. Sepsis. Also developed bowel obstruction-that corrected on its own. today-ICU. Patient remains rather sedated even after propofol and sedation has been off. Not really waking up. EKG was done that was pending. FiO2 40 and PEEP of 5. Telemetry shows atrial fibrillation and patient remains on IV amiodarone. Stool was negative for C. diff. Remains on IV insulin. Patient has unstageable sacral decubitus ulcer. Neurology was consulted.. Review of systems cannot be done patient intubated Active Medications Aspirin (Aspirin) 81 mg PO DAILY [facility] Last Admin: 10/30/19 08:50 Dose: 81 mg Documented by: Chlorhexidine Gluconate (Peridex) 15 ml MUCOUS MEM BID [facility] Last Admin: 10/30/19 08:50 Dose: 15 ml Documented by: Heparin Sodium (Porcine) (Heparin) 5,000 unit SQ Q8HR [facility] Last Admin: 10/30/19 07:49 Dose: 5,000 unit Documented by: Piperacillin Sod/Tazobactam (Sod 3.375 gm/ Sodium Chloride) 100 mls @ 25 mls/hr IVPB Q8H [facility] Last Admin: 10/30/19 12:34 Dose: 25 mls/hr Documented by: Norepinephrine Bitartrate 32 (mg/ Sodium Chloride) 250 mls @ 14.805 mls/hr IV .[id number] [facility]; Protocol Last Admin: 10/29/19 17:33 Dose: Not Given Documented by: Insulin Human Regular 100 unit (/ Sodium Chloride) 101 mls @ 0 mls/hr IV .Q0M [facility]; Protocol Last Titration: 10/30/19 15:20 Dose: 0 unit/hr, 0 mls/hr Documented by: Vasopressin 60 unit/ Sodium (Chloride) 153 mls @ 4.59 mls/hr IV .Q24H [facility] Last Admin: 10/29/19 03:49 Dose: 4.59 mls/hr Documented by: Metronidazole 500 mg/ IV (Solution) 100 mls @ 100 mls/hr IVPB Q8HR [facility] Last Admin: 10/30/19 07:49 Dose: 100 mls/hr Documented by: Sodium Chloride (Saline 0.9%) 500 mls @ 20 mls/hr IV .Q24H [facility] Last Admin: 10/29/19 08:26 Dose: 20 mls/hr Documented by: Amiodarone HCl 300 mg/ (Dextrose/Water) 250 mls @ 25 mls/hr IV .Q10H [facility]; Protocol Stop: 10/30/19 17:52 Last Admin: 10/30/19 10:23 Dose: 0.5 mg/min, 25 mls/hr Documented by: Miscellaneous Information (Pneumonia Protocol Utilized) 1 each PO ONCE PRN PRN Reason: Per Protocol Miscellaneous Information (Magnesium Per Protocol) 1 each MISCELLANE DAILY PRN; Protocol PRN Reason: Per Protocol Miscellaneous Information (Phosphorus Per Protocol) 1 each MISCELLANE DAILY PRN; Protocol PRN Reason: Per Protocol Miscellaneous Information (Potassium Per Protocol) 1 each MISCELLANE DAILY PRN; Protocol PRN Reason: Per Protocol Naloxone HCl (Narcan) 0.2 mg IV Q2M PRN PRN Reason: Opioid Reversal Nitroglycerin (Nitrostat) 0.4 mg SUBLINGUAL Q5M PRN PRN Reason: Chest Pain Pantoprazole Sodium (Protonix) 40 mg IV DAILY IN[facility] Last Admin: 10/30/19 08:50 Dose: 40 mg Documented by: On examination: VITAL SIGNS: 97.9, 99, 33, 118/61, 96% on the ventilator GENERAL APPEARANCE: laying in bed, sedated, intubated. HEENT: Normal external appearance of nose and ear. Oral cavity -endotracheal tube, NG tube to suction EYES: Pupils equal. Conjunctiva normal. NECK: JVD unable to assess. Mass not palpable. RESPIRATORY: Respiratory effort increased. Lungs -decreased breath sounds CARDIOVASCULAR: First and second sounds normal. No edema. ABDOMEN: Soft. Liver and spleen not palpable. No tenderness. No mass palpable. PSYCHIATRY: unable to assess, patient sedated INVESTIGATIONS, reviewed in the clinical context: Sodium 148 potassium 3.4 creatinine 1.15 EEG suggestive of encephalopathy, computed tomography scan of the brain-on October 28-chronic changes Previous testing: White count 11 hemoglobin 13.7 platelets 383 Sodium 116, bicarb 8, bun 33, creatinine 2.18 glucose 1875 troponin I 0.88 1 Rusty-19 PCR-not detected computed tomography scan of the brain without contrast-no acute degenerative changes Ultrasound kidney-limited exam 2-D echocardiogram-EF 30-35%, anteroseptal apical hypokinesia AST 3453, ALT 1264, computed tomography scan of the abdomen and pelvis without contrast-dilated multiple loops of small bowel some free fluid in the paracolic gutter bilateral lower lobe pulmonary infiltrates, fusiform 4.4 cm lower abdominal aortic aneurysm with aortoiliac endograft multiple diverticula of the sigmoid colon. Mild wall thickening of the ascending colon. Blood cultures from October 20-negative Abdominal x-ray-October 25--contrast has passed through to thecolon Assessment: -acute nonketotic hyperosmolar diabetes with severe hyperglycemia, POA -Acute small bowel obstruction, and distal jejunal clinically improved, NG tube suction discontinued.- tube feeding started -Acute hypoxic respiratory failure requiring mechanical ventilator support-slow to respond -Acute metabolic encephalopathy from above-slow to respond -Alzheimer's dementia -Pseudohyponatremia from severe hyperglycemia -4.4 cm distal abdominal aortic aneurysm with the endoluminal stent graft -Peripheral arterial disease -Acute shock liver secondary to hypotensive improving -Chronic congestive heart failure from systolic dysfunction EF 30-35% -Sepsis with septic shock, possible community acquired pneumonia -Metabolic encephalopathy likely due to the above -Non-ST elevation CA likely type II from demand ischemia, POA -Acute kidney injury likely ATN-some improvement -Possibly chronic kidney disease -essential hypertension -Pneumonia suspect gram-negative organism -New onset atrial fibrillation today uncontrolled Plan: Patient IV amiodarone, IV insulin drip, IV Flagyl, IV levo fed, IV Zosyn. No obvious seizure activity on EEG. Prognosis guarded.
--- NOTE | 2019-10-30 16:02 | P.PN ---
Subjective Progress Note Date: 10/30/19 Principal diagnosis: hyperosmolar nonketotic acidosis possible anoxic brain injury Metabolic encephalopathy no acute events overnight. Nursing describes no evidence of any clinical seizures. Patient still isn't comatose no spontaneous movement or spontaneous eye opening. Patient appears to still be totally dependent on the ventilator. Objective - Vital Signs Vital signs: Vital Signs Temp 97.9 F 10/30/19 13:00 Pulse 93 10/30/19 15:00 Resp 39 H 10/30/19 15:00 BP 123/64 10/30/19 14:30 Pulse Ox 97 10/30/19 15:00 Intake & Output 10/29/19 10/30/19 10/30/19 18:59 06:59 18:59 Intake Total 2587.825 4793.000 731.389 Output Total 1025 1425 1695 Balance 818.628 903.000 -963.611 Weight 85.9 kg Intake: IV 434 347 217 .9 Sodium Chloride @ 10ml 140 111 90 /hr Piperacillin-Tazobactam 3 100 200 100 .375 gm In Sodium Chloride 0.9% 100 ml @ 25 mls/hr IVPB Q8H INDU Rx#: [id number] Pressure Bag 39 36 27 Sodium Chloride 0.9% 150 55 ml @ 0.03 UNITS/MIN 4.59 mls/hr IV .Q24H INDU with Vasopressin 60 unit Rx#: [id number] metroNIDAZOLE-NS PMX 500 100 mg In Saline 1 100ml.bag @ 100 mls/hr IVPB Q8HR IDNU Rx#:[id number] Intake, IV Titration 89.628 201.000 304.389 Amount Amiodarone 300 mg In 250 Dextrose 5% in Water 250 ml @ 0.5 MG/MIN 25 mls/hr IV .Q10H INDU Rx#: [id number] Insulin Regular 100 unit 88.341 101.000 54.389 In Sodium Chloride 0.9% 100 ml @ Per Protocol IV .Q0M INDU Rx#:[id number] Norepinephrine 32 mg In 1.287 Sodium Chloride 0.9% 218 ml @ 0.42 MCG/KG/MIN 14. 805 mls/hr IV .[id number] INDU Rx#:[id number] metroNIDAZOLE-NS PMX 500 100 mg In Saline 1 100ml.bag @ 100 mls/hr IVPB Q8HR [facility] Rx#:[id number] Tube Feeding 920 1180 210 Other 400 600 Output: Urine 1025 1425 1695 Other: Voiding Method Indwelling Catheter Indwelling Catheter Indwelling Catheter # Voids 50 ABP, PAP, CO, CI - Last Documented Arterial Blood Pressure 138/62 - Exam patient examined chart reviewed. Pertinent labs: Positive for Layne in the sputum Gen. exam: No acute distress ventilator. HEENT: Clear sclera pupils 2 mm millimeter minimally reactive to light but symmetric. Oropharynx shows poor dental hygiene. Neck supple. Chest clear to auscultation throughout. Pulses: Radial pedal pulses equal and symmetric. Neurologic exam mental status: No spontaneous eye opening nonverbal. Cranial nerves: L5 movement intact. Occasional twitching of the eyelids noted. With stimulation. Face appears symmetric. Gag reflex is severely depressed. Motor examination: No movement noted no spontaneous movement noted no fasciculations or tremor noted. Deep tendon reflexes: Absent throughout. Plantar responses are mute bilaterally. No ankle clonus is elicited. Glascow coma scale (3) - Labs CBC & Chem 7: 10/29/19 17:55 10/30/19 05:15 Labs: Abnormal Lab Results - Last 24 Hours (Table) 10/29/19 10/29/19 10/29/19 Range/Units 15:29 17:54 17:55 WBC (3.8-10.6) k/uL RBC (4.30-5.90) m/uL Hgb (13.0-17.5) gm/dL Hct (39.0-53.0) % MCV (80.0-100.0) fL Neutrophils # (1.3-7.7) k/uL Lymphocytes # (1.0-4.8) k/uL ABG pCO2 (35-45) mmHg ABG HCO3 (21-25) mmol/L ABG O2 Saturation (94-97) % Sodium 146 H (137-145) mmol/L Potassium (3.5-5.1) mmol/L Chloride 120 H (98-107) mmol/L Carbon Dioxide 21 L (22-30) mmol/L BUN 45 H (9-20) mg/dL Glucose 131 H (74-99) mg/dL POC Glucose (mg/dL) 146 H 133 H (75-99) mg/dL Calcium 7.2 L (8.4-10.2) mg/dL 10/29/19 10/29/19 10/29/19 Range/Units 17:55 19:57 21:06 WBC 15.4 H (3.8-10.6) k/uL RBC 3.03 L (4.30-5.90) m/uL Hgb 10.1 L (13.0-17.5) gm/dL Hct 31.6 L (39.0-53.0) % MCV 104.4 H (80.0-100.0) fL Neutrophils # 13.8 H (1.3-7.7) k/uL Lymphocytes # 0.9 L (1.0-4.8) k/uL ABG pCO2 (35-45) mmHg ABG HCO3 (21-25) mmol/L ABG O2 Saturation (94-97) % Sodium (137-145) mmol/L Potassium (3.5-5.1) mmol/L Chloride (98-107) mmol/L Carbon Dioxide (22-30) mmol/L BUN (9-20) mg/dL Glucose (74-99) mg/dL POC Glucose (mg/dL) 164 H 172 H (75-99) mg/dL Calcium (8.4-10.2) mg/dL 10/29/19 10/29/19 10/29/19 Range/Units 21:59 23:13 23:54 WBC (3.8-10.6) k/uL RBC (4.30-5.90) m/uL Hgb (13.0-17.5) gm/dL Hct (39.0-53.0) % MCV (80.0-100.0) fL Neutrophils # (1.3-7.7) k/uL Lymphocytes # (1.0-4.8) k/uL ABG pCO2 (35-45) mmHg ABG HCO3 (21-25) mmol/L ABG O2 Saturation (94-97) % Sodium (137-145) mmol/L Potassium (3.5-5.1) mmol/L Chloride (98-107) mmol/L Carbon Dioxide (22-30) mmol/L BUN (9-20) mg/dL Glucose (74-99) mg/dL POC Glucose (mg/dL) 202 H 211 H 232 H (75-99) mg/dL Calcium (8.4-10.2) mg/dL 10/30/19 10/30/19 10/30/19 Range/Units 00:58 02:05 03:04 WBC (3.8-10.6) k/uL RBC (4.30-5.90) m/uL Hgb (13.0-17.5) gm/dL Hct (39.0-53.0) % MCV (80.0-100.0) fL Neutrophils # (1.3-7.7) k/uL Lymphocytes # (1.0-4.8) k/uL ABG pCO2 (35-45) mmHg ABG HCO3 (21-25) mmol/L ABG O2 Saturation (94-97) % Sodium (137-145) mmol/L Potassium (3.5-5.1) mmol/L Chloride (98-107) mmol/L Carbon Dioxide (22-30) mmol/L BUN (9-20) mg/dL Glucose (74-99) mg/dL POC Glucose (mg/dL) 228 H 188 H 164 H (75-99) mg/dL Calcium (8.4-10.2) mg/dL 10/30/19 10/30/19 10/30/19 Range/Units 04:16 05:10 05:15 WBC (3.8-10.6) k/uL RBC (4.30-5.90) m/uL Hgb (13.0-17.5) gm/dL Hct (39.0-53.0) % MCV (80.0-100.0) fL Neutrophils # (1.3-7.7) k/uL Lymphocytes # (1.0-4.8) k/uL ABG pCO2 (35-45) mmHg ABG HCO3 (21-25) mmol/L ABG O2 Saturation (94-97) % Sodium 148 H (137-145) mmol/L Potassium 3.4 L (3.5-5.1) mmol/L Chloride 122 H (98-107) mmol/L Carbon Dioxide 20 L (22-30) mmol/L BUN 40 H (9-20) mg/dL Glucose 158 H (74-99) mg/dL POC Glucose (mg/dL) 151 H 149 H (75-99) mg/dL Calcium 7.2 L (8.4-10.2) mg/dL 10/30/19 10/30/19 10/30/19 Range/Units 06:07 06:49 07:26 WBC (3.8-10.6) k/uL RBC (4.30-5.90) m/uL Hgb (13.0-17.5) gm/dL Hct (39.0-53.0) % MCV (80.0-100.0) fL Neutrophils # (1.3-7.7) k/uL Lymphocytes # (1.0-4.8) k/uL ABG pCO2 30 L (35-45) mmHg ABG HCO3 20 L (21-25) mmol/L ABG O2 Saturation 98.8 H (94-97) % Sodium (137-145) mmol/L Potassium (3.5-5.1) mmol/L Chloride (98-107) mmol/L Carbon Dioxide (22-30) mmol/L BUN (9-20) mg/dL Glucose (74-99) mg/dL POC Glucose (mg/dL) 129 H 160 H (75-99) mg/dL Calcium (8.4-10.2) mg/dL 10/30/19 10/30/19 10/30/19 Range/Units 08:06 09:38 10:57 WBC (3.8-10.6) k/uL RBC (4.30-5.90) m/uL Hgb (13.0-17.5) gm/dL Hct (39.0-53.0) % MCV (80.0-100.0) fL Neutrophils # (1.3-7.7) k/uL Lymphocytes # (1.0-4.8) k/uL ABG pCO2 (35-45) mmHg ABG HCO3 (21-25) mmol/L ABG O2 Saturation (94-97) % Sodium (137-145) mmol/L Potassium (3.5-5.1) mmol/L Chloride (98-107) mmol/L Carbon Dioxide (22-30) mmol/L BUN (9-20) mg/dL Glucose (74-99) mg/dL POC Glucose (mg/dL) 172 H 176 H 123 H (75-99) mg/dL Calcium (8.4-10.2) mg/dL 10/30/19 10/30/19 10/30/19 Range/Units 12:03 13:07 14:18 WBC (3.8-10.6) k/uL RBC (4.30-5.90) m/uL Hgb (13.0-17.5) gm/dL Hct (39.0-53.0) % MCV (80.0-100.0) fL Neutrophils # (1.3-7.7) k/uL Lymphocytes # (1.0-4.8) k/uL ABG pCO2 (35-45) mmHg ABG HCO3 (21-25) mmol/L ABG O2 Saturation (94-97) % Sodium (137-145) mmol/L Potassium (3.5-5.1) mmol/L Chloride (98-107) mmol/L Carbon Dioxide (22-30) mmol/L BUN (9-20) mg/dL Glucose (74-99) mg/dL POC Glucose (mg/dL) 170 H 208 H 194 H (75-99) mg/dL Calcium (8.4-10.2) mg/dL 10/30/19 Range/Units 15:13 WBC (3.8-10.6) k/uL RBC (4.30-5.90) m/uL Hgb (13.0-17.5) gm/dL Hct (39.0-53.0) % MCV (80.0-100.0) fL Neutrophils # (1.3-7.7) k/uL Lymphocytes # (1.0-4.8) k/uL ABG pCO2 (35-45) mmHg ABG HCO3 (21-25) mmol/L ABG O2 Saturation (94-97) % Sodium (137-145) mmol/L Potassium (3.5-5.1) mmol/L Chloride (98-107) mmol/L Carbon Dioxide (22-30) mmol/L BUN (9-20) mg/dL Glucose (74-99) mg/dL POC Glucose (mg/dL) 129 H (75-99) mg/dL Calcium (8.4-10.2) mg/dL Microbiology - Last 24 Hours (Table) 10/28/19 13:55 Gram Stain - Final Sputum Sputum Culture - Final Layne albicans 10/23/19 21:30 Blood Culture - Final Blood No Growth after 144 hours 10/23/19 21:45 Blood Culture - Final Blood No Growth after 144 hours 10/28/19 12:10 Urine Culture - Final Urine,Catheterized 10/28/19 14:00 Blood Culture - Preliminary Blood No Growth after 24 hours Assessment and Plan Assessment: This is a 79-year-old gentleman poorly controlled diabetic admitted in acute nonketotic hyperosmolar diabetes with severe hyperglycemia POA. The patient suffered acute hypoxic respiratory failure requiring intubation and now not responding off sedation. His course was complicated with sepsis and septic shock along with kidney failure and ischemic hepatitis. Now the patient has been found to have layne growth in sputum. The EEG study today showed periods of severe suppression intermixed with periods of what could be alerting response close to and awake background rhythm versus an alpha coma. His neurological exam is unchanged. There was only minimum eye twitching noted when cold icepack was placed to his face. Otherwise he has no spontaneous eye opening movement or response to pain such as withdrawal. I would recommend we have family meeting tomorrow to discuss long-term management and care. Overall this patient's prognosis remains very poor in light of all his co-morbidities. Plan: 1. Continue with supportive care and neuro checks every 2 hours while awake. 2. Consider a follow-up computed tomography scan by the end of the week or early next week. 3. No reason at this time to consider antiepileptic medications. No electrographic seizures or clinical seizures have been observed. 4. Plan for family meeting to discuss long-term prognosis. 5. Avoid all narcotics and sedatives such as Diludid, benzos This patient's prognosis remains very poor due to the extensive comorbidities this patient had before the event. Neurology will continue to follow on a daily basis providing recommendations as this case evolves. Thank you for allowing me to participate in the care of your patient. Please note that there will not be neurology reproduction order processor officially this weekend but if there are any questions please fill free to contact me at [phone] Thank you for this consultation. Neurology will follow closely throughout this admission. Further recommendations will be made as this case evolves. Shilpa Jose M.D. Board Certified in Neurology and Sleep Medicine
[2019-10-30 16:12] LABS: Glucose,Whole Blood 203 mg/dL (75-99)
[2019-10-30 16:59] LABS: Glucose,Whole Blood 196 mg/dL (75-99)
[2019-10-30 17:59] LABS: Glucose,Whole Blood 194 mg/dL (75-99)
[2019-10-30 18:59] LABS: Glucose,Whole Blood 190 mg/dL (75-99)
[2019-10-30 20:10] LABS: Glucose,Whole Blood 201 mg/dL (75-99)
[2019-10-30] MEDS: NOREPINEPHRINE 32 MG in SODIUM CHLORIDE 0.9% 218 ML IV SCH (20:13)
[2019-10-30] MEDS: SODIUM CHLORIDE 0.9% 500 ML 500 ML IV SCH (20:13)
[2019-10-30 21:07] LABS: Glucose,Whole Blood 185 mg/dL (75-99)
[2019-10-30 21:58] LABS: Glucose,Whole Blood 139 mg/dL (75-99)
[2019-10-30 23:01] LABS: Glucose,Whole Blood 144 mg/dL (75-99)
[2019-10-31 00:08] LABS: Glucose,Whole Blood 148 mg/dL (75-99)
[2019-10-31 01:23] LABS: Glucose,Whole Blood 145 mg/dL (75-99)
[2019-10-31 02:10] LABS: Glucose,Whole Blood 155 mg/dL (75-99)
[2019-10-31 03:06] LABS: Glucose,Whole Blood 155 mg/dL (75-99)
[2019-10-31 03:56] LABS: Glucose,Whole Blood 149 mg/dL (75-99)
[2019-10-31] MEDS: PIPERACILLIN-TAZOBACTAM 3.375 GM in SODIUM CHLORIDE 0.9% 100 ML IVPB SCH ×3 (04:04→20:24)
[2019-10-31 04:53] LABS: Calcium 7.3 mg/dL (8.4-10.2); Magnesium 1.7 mg/dL (1.6-2.3); Phosphorus 2.8 mg/dL (2.5-4.5); Potassium 3.3 mmol/L (3.5-5.1)
[2019-10-31 04:58] LABS: Glucose,Whole Blood 167 mg/dL (75-99)
[2019-10-31 05:00] LABS: HCT 30.8 % (39.0-53.0); HGB 9.8 gm/dL (13.0-17.5); Hypochromasia Moderate; MCH 32.9 pg (25.0-35.0); MCHC 31.8 g/dL (31.0-37.0); MCV 103.5 fL (80.0-100.0); Macrocytosis Slight; Mean Platelet Volume 10.2; Platelet Count 467 k/uL (150-450); RBC 2.98 m/uL (4.30-5.90); RDW 14.3 % (11.5-15.5); WBC 14.4 k/uL (3.8-10.6)
[2019-10-31 05:20] LABS: Band Neutrophils % 3 %; Eosinophils # (M) 0.14 k/uL (0-0.7); Lymphocytes # (M) 0.72 k/uL (1.0-4.8); Monocytes # (M) 0.72 k/uL (0-1.0); Neutrophils % (M) 86 %; Nucleated Red Blood Cells 0 /100 WBC (0-0); Polychromasia Present; Total Cells Counted 100
[2019-10-31] MEDS: AMIODARONE 300 MG in DEXTROSE 5% IN WATER 250 ML IV SCH ×2 (06:04)
[2019-10-31] MEDS: NOREPINEPHRINE 32 MG in SODIUM CHLORIDE 0.9% 218 ML IV SCH (06:04)
[2019-10-31 06:11] LABS: Glucose,Whole Blood 130 mg/dL (75-99)
[2019-10-31] MEDS: POTASSIUM BICARBONATE/CIT AC 20 MEQ TABLET.EFF NG-TUBE SCH ×2 (06:20→07:57)
[2019-10-31 06:57] LABS: Glucose,Whole Blood 126 mg/dL (75-99)
--- NOTE | 2019-10-31 07:25 | XR ---
EXAMINATION TYPE: XR chest 1V DATE OF EXAM: 10/31/2019 COMPARISON: 10/30/2019 HISTORY: Ventilatory dependent respiratory failure TECHNIQUE: Single frontal view of the chest is obtained. FINDINGS: Endotracheal tube, enteric tube, and left subclavian approach central venous catheter are similar in position to the prior. There is redemonstration of right hemidiaphragm elevation and small right pleural effusion with bibasilar platelike atelectasis. Cardiomediastinal silhouette is nonenla rged and rotated secondary to patient positioning. Diffuse osseous demineralization. IMPRESSION: Stable small right pleural effusion and bibasilar atelectasis.
[2019-10-31 07:42] LABS: ABG Base Excess -4.4 mmol/L; ABG HCO3 20 mmol/L (21-25); ABG Oxygen Saturation 98.8 % (94-97); ABG PCO2 29 mmHg (35-45); ABG PH 7.44 (7.35-7.45); ABG PO2 104 mmHg (83-108); ABG TCO2 21 mmol/L (19-24)
[2019-10-31 07:44] LABS: Allen Test Performed? no
--- NOTE | 2019-10-31 07:44 | P.PN ---
<Jodie Garcia Melvin - Last Filed: 10/31/19 07:43> Subjective Progress Note Date: 10/30/19 CHIEF COMPLAINT: Sepsis HISTORY OF PRESENT ILLNESS: Patient examined in the intensive care. Patient remains on mechanical ventilation. Tube feedings are infusing. He is tolerating well. PHYSICAL EXAM: VITAL SIGNS: Reviewed GENERAL: Well-developed in no acute distress. HEENT: No sclera icterus. Extraocular movements grossly intact. Moist buccal mucosa. Head is atraumatic, normocephalic. No nasal drainage. NECK: Supple without lymphadenopathy. CHEST: Non-labored respirations and equal bilateral excursions. CARDIOVASCULAR: Regular rate with regular rhythm. Palpable 2+ radial pulses. ABDOMEN: Soft. Nondistended. Nontender. NG tube noted with tube feeding infusing. MUSCULOSKELETAL: No clubbing or cyanosis. NEUROLOGIC: Remains on mechanical ventilation PSYCH: Remains on mechanical ventilation. Sedation has been turned off. SKIN: Well perfused. Good skin turgor. ASSESSMENT: 1. Abnormal computed tomography scan with small bowel distention, resolving PLAN: Continue tube feedings as tolerated Nurse practitioner note has been reviewed by physician. Signing provider agrees with the documented findings, assessment, and plan of care. Objective - Vital Signs Vital signs: Vital Signs Temp 97.9 F 10/30/19 13:00 Pulse 99 10/30/19 13:00 Resp 33 H 10/30/19 13:00 BP 118/61 10/30/19 13:00 Pulse Ox 96 10/30/19 13:00 Intake & Output 10/29/19 10/30/19 10/30/19 18:59 06:59 18:59 Intake Total 3647.902 7551.000 689.061 Output Total 1025 1425 1520 Balance 818.628 903.000 -830.939 Weight 85.9 kg Intake: IV 434 347 191 .9 Sodium Chloride @ 10ml 140 111 70 /hr Piperacillin-Tazobactam 3 100 200 100 .375 gm In Sodium Chloride 0.9% 100 ml @ 25 mls/hr IVPB Q8H INDU Rx#: [id number] Pressure Bag 39 36 21 Sodium Chloride 0.9% 150 55 ml @ 0.03 UNITS/MIN 4.59 mls/hr IV .Q24H INDU with Vasopressin 60 unit Rx#: [id number] metroNIDAZOLE-NS PMX 500 100 mg In Saline 1 100ml.bag @ 100 mls/hr IVPB Q8HR INDU Rx#:[id number] Intake, IV Titration 89.628 201.000 288.061 Amount Amiodarone 300 mg In 250 Dextrose 5% in Water 250 ml @ 0.5 MG/MIN 25 mls/hr IV .Q10H INDU Rx#: [id number] Insulin Regular 100 unit 88.341 101.000 38.061 In Sodium Chloride 0.9% 100 ml @ Per Protocol IV .Q0M INDU Rx#:[id number] Norepinephrine 32 mg In 1.287 Sodium Chloride 0.9% 218 ml @ 0.42 MCG/KG/MIN 14. 805 mls/hr IV .[id number] INDU Rx#:[id number] metroNIDAZOLE-NS PMX 500 100 mg In Saline 1 100ml.bag @ 100 mls/hr IVPB Q8HR INDU Rx#:[id number] Tube Feeding 920 1180 210 Other 400 600 Output: Urine 1025 1425 1520 Other: Voiding Method Indwelling Catheter Indwelling Catheter Indwelling Catheter # Voids 50 ABP, PAP, CO, CI - Last Documented Arterial Blood Pressure 140/55 - Labs CBC & Chem 7: 10/29/19 17:55 10/30/19 05:15 Labs: Abnormal Lab Results - Last 24 Hours (Table) 10/29/19 10/29/19 10/29/19 Range/Units 15:29 17:54 17:55 WBC (3.8-10.6) k/uL RBC (4.30-5.90) m/uL Hgb (13.0-17.5) gm/dL Hct (39.0-53.0) % MCV (80.0-100.0) fL Neutrophils # (1.3-7.7) k/uL Lymphocytes # (1.0-4.8) k/uL ABG pCO2 (35-45) mmHg ABG HCO3 (21-25) mmol/L ABG O2 Saturation (94-97) % Sodium 146 H (137-145) mmol/L Potassium (3.5-5.1) mmol/L Chloride 120 H (98-107) mmol/L Carbon Dioxide 21 L (22-30) mmol/L BUN 45 H (9-20) mg/dL Glucose 131 H (74-99) mg/dL POC Glucose (mg/dL) 146 H 133 H (75-99) mg/dL Calcium 7.2 L (8.4-10.2) mg/dL 10/29/19 10/29/19 10/29/19 Range/Units 17:55 19:57 21:06 WBC 15.4 H (3.8-10.6) k/uL RBC 3.03 L (4.30-5.90) m/uL Hgb 10.1 L (13.0-17.5) gm/dL Hct 31.6 L (39.0-53.0) % MCV 104.4 H (80.0-100.0) fL Neutrophils # 13.8 H (1.3-7.7) k/uL Lymphocytes # 0.9 L (1.0-4.8) k/uL ABG pCO2 (35-45) mmHg ABG HCO3 (21-25) mmol/L ABG O2 Saturation (94-97) % Sodium (137-145) mmol/L Potassium (3.5-5.1) mmol/L Chloride (98-107) mmol/L Carbon Dioxide (22-30) mmol/L BUN (9-20) mg/dL Glucose (74-99) mg/dL POC Glucose (mg/dL) 164 H 172 H (75-99) mg/dL Calcium (8.4-10.2) mg/dL 10/29/19 10/29/19 10/29/19 Range/Units 21:59 23:13 23:54 WBC (3.8-10.6) k/uL RBC (4.30-5.90) m/uL Hgb (13.0-17.5) gm/dL Hct (39.0-53.0) % MCV (80.0-100.0) fL Neutrophils # (1.3-7.7) k/uL Lymphocytes # (1.0-4.8) k/uL ABG pCO2 (35-45) mmHg ABG HCO3 (21-25) mmol/L ABG O2 Saturation (94-97) % Sodium (137-145) mmol/L Potassium (3.5-5.1) mmol/L Chloride (98-107) mmol/L Carbon Dioxide (22-30) mmol/L BUN (9-20) mg/dL Glucose (74-99) mg/dL POC Glucose (mg/dL) 202 H 211 H 232 H (75-99) mg/dL Calcium (8.4-10.2) mg/dL 10/30/19 10/30/19 10/30/19 Range/Units 00:58 02:05 03:04 WBC (3.8-10.6) k/uL RBC (4.30-5.90) m/uL Hgb (13.0-17.5) gm/dL Hct (39.0-53.0) % MCV (80.0-100.0) fL Neutrophils # (1.3-7.7) k/uL Lymphocytes # (1.0-4.8) k/uL ABG pCO2 (35-45) mmHg ABG HCO3 (21-25) mmol/L ABG O2 Saturation (94-97) % Sodium (137-145) mmol/L Potassium (3.5-5.1) mmol/L Chloride (98-107) mmol/L Carbon Dioxide (22-30) mmol/L BUN (9-20) mg/dL Glucose (74-99) mg/dL POC Glucose (mg/dL) 228 H 188 H 164 H (75-99) mg/dL Calcium (8.4-10.2) mg/dL 10/30/19 10/30/19 10/30/19 Range/Units 04:16 05:10 05:15 WBC (3.8-10.6) k/uL RBC (4.30-5.90) m/uL Hgb (13.0-17.5) gm/dL Hct (39.0-53.0) % MCV (80.0-100.0) fL Neutrophils # (1.3-7.7) k/uL Lymphocytes # (1.0-4.8) k/uL ABG pCO2 (35-45) mmHg ABG HCO3 (21-25) mmol/L ABG O2 Saturation (94-97) % Sodium 148 H (137-145) mmol/L Potassium 3.4 L (3.5-5.1) mmol/L Chloride 122 H (98-107) mmol/L Carbon Dioxide 20 L (22-30) mmol/L BUN 40 H (9-20) mg/dL Glucose 158 H (74-99) mg/dL POC Glucose (mg/dL) 151 H 149 H (75-99) mg/dL Calcium 7.2 L (8.4-10.2) mg/dL 10/30/19 10/30/19 10/30/19 Range/Units 06:07 06:49 07:26 WBC (3.8-10.6) k/uL RBC (4.30-5.90) m/uL Hgb (13.0-17.5) gm/dL Hct (39.0-53.0) % MCV (80.0-100.0) fL Neutrophils # (1.3-7.7) k/uL Lymphocytes # (1.0-4.8) k/uL ABG pCO2 30 L (35-45) mmHg ABG HCO3 20 L (21-25) mmol/L ABG O2 Saturation 98.8 H (94-97) % Sodium (137-145) mmol/L Potassium (3.5-5.1) mmol/L Chloride (98-107) mmol/L Carbon Dioxide (22-30) mmol/L BUN (9-20) mg/dL Glucose (74-99) mg/dL POC Glucose (mg/dL) 129 H 160 H (75-99) mg/dL Calcium (8.4-10.2) mg/dL 10/30/19 10/30/19 10/30/19 Range/Units 08:06 09:38 10:57 WBC (3.8-10.6) k/uL RBC (4.30-5.90) m/uL Hgb (13.0-17.5) gm/dL Hct (39.0-53.0) % MCV (80.0-100.0) fL Neutrophils # (1.3-7.7) k/uL Lymphocytes # (1.0-4.8) k/uL ABG pCO2 (35-45) mmHg ABG HCO3 (21-25) mmol/L ABG O2 Saturation (94-97) % Sodium (137-145) mmol/L Potassium (3.5-5.1) mmol/L Chloride (98-107) mmol/L Carbon Dioxide (22-30) mmol/L BUN (9-20) mg/dL Glucose (74-99) mg/dL POC Glucose (mg/dL) 172 H 176 H 123 H (75-99) mg/dL Calcium (8.4-10.2) mg/dL 10/30/19 10/30/19 Range/Units 12:03 13:07 WBC (3.8-10.6) k/uL RBC (4.30-5.90) m/uL Hgb (13.0-17.5) gm/dL Hct (39.0-53.0) % MCV (80.0-100.0) fL Neutrophils # (1.3-7.7) k/uL Lymphocytes # (1.0-4.8) k/uL ABG pCO2 (35-45) mmHg ABG HCO3 (21-25) mmol/L ABG O2 Saturation (94-97) % Sodium (137-145) mmol/L Potassium (3.5-5.1) mmol/L Chloride (98-107) mmol/L Carbon Dioxide (22-30) mmol/L BUN (9-20) mg/dL Glucose (74-99) mg/dL POC Glucose (mg/dL) 170 H 208 H (75-99) mg/dL Calcium (8.4-10.2) mg/dL Microbiology - Last 24 Hours (Table) 10/28/19 13:55 Gram Stain - Final Sputum Sputum Culture - Final Layne albicans 10/23/19 21:30 Blood Culture - Final Blood No Growth after 144 hours 10/23/19 21:45 Blood Culture - Final Blood No Growth after 144 hours 10/28/19 12:10 Urine Culture - Final Urine,Catheterized 10/28/19 14:00 Blood Culture - Preliminary Blood No Growth after 24 hours <Bess Quintero N - Last Filed: 10/31/19 13:13> Subjective Agree with nurse practitioner's note. Patient still in the intensive care unit on full ventilatory support. He is off sedation. Neurology is assessing. In the interim, no further reports of abdominal pain or bowel obstruction. Overall prognosis guarded Objective - Vital Signs Vital signs: Vital Signs Temp 98.1 F 10/31/19 12:00 Pulse 93 10/31/19 13:00 Resp 24 10/31/19 13:00 BP 134/62 10/31/19 13:00 Pulse Ox 100 10/31/19 13:00 Intake & Output 10/30/19 10/31/19 10/31/19 18:59 06:59 18:59 Intake Total 2663.725 3037.237 1488 Output Total 2170 1850 550 Balance 335.259 6253.237 938 Weight 87.4 kg Intake: IV 269 256 178 .9 Sodium Chloride @ 10ml 130 120 60 /hr Piperacillin-Tazobactam 3 100 100 100 .375 gm In Sodium Chloride 0.9% 100 ml @ 25 mls/hr IVPB Q8H INDU Rx#: [id number] Pressure Bag 39 36 18 Intake, IV Titration 414.725 431.237 150 Amount Amiodarone 300 mg In 250 250 Dextrose 5% in Water 250 ml @ 0.5 MG/MIN 25 mls/hr IV .Q10H INDU Rx#: [id number] Insulin Regular 100 unit 64.725 81.237 In Sodium Chloride 0.9% 100 ml @ Per Protocol IV .Q0M INDU Rx#:[id number] metroNIDAZOLE-NS PMX 500 100 100 150 mg In Saline 1 100ml.bag @ 100 mls/hr IVPB Q8HR INDU Rx#:[id number] Tube Feeding 980 1050 560 Other 1000 1300 600 Output: Urine 2170 850 550 Stool 1000 Other: Voiding Method Indwelling Catheter Indwelling Catheter Indwelling Catheter # Voids 1 1 ABP, PAP, CO, CI - Last Documented Arterial Blood Pressure 154/56 - Labs CBC & Chem 7: 10/31/19 04:24 10/31/19 04:24 Labs: Abnormal Lab Results - Last 24 Hours (Table) 10/30/19 10/30/19 10/30/19 Range/Units 14:18 15:13 16:10 WBC (3.8-10.6) k/uL RBC (4.30-5.90) m/uL Hgb (13.0-17.5) gm/dL Hct (39.0-53.0) % MCV (80.0-100.0) fL Plt Count (150-450) k/uL Neutrophils # (Manual) (1.3-7.7) k/uL Lymphocytes # (Manual) (1.0-4.8) k/uL ABG pCO2 (35-45) mmHg ABG HCO3 (21-25) mmol/L ABG O2 Saturation (94-97) % Sodium (137-145) mmol/L Potassium (3.5-5.1) mmol/L Chloride (98-107) mmol/L Carbon Dioxide (22-30) mmol/L BUN (9-20) mg/dL Glucose (74-99) mg/dL POC Glucose (mg/dL) 194 H 129 H 203 H (75-99) mg/dL Calcium (8.4-10.2) mg/dL 10/30/19 10/30/19 10/30/19 Range/Units 16:58 17:57 18:58 WBC (3.8-10.6) k/uL RBC (4.30-5.90) m/uL Hgb (13.0-17.5) gm/dL Hct (39.0-53.0) % MCV (80.0-100.0) fL Plt Count (150-450) k/uL Neutrophils # (Manual) (1.3-7.7) k/uL Lymphocytes # (Manual) (1.0-4.8) k/uL ABG pCO2 (35-45) mmHg ABG HCO3 (21-25) mmol/L ABG O2 Saturation (94-97) % Sodium (137-145) mmol/L Potassium (3.5-5.1) mmol/L Chloride (98-107) mmol/L Carbon Dioxide (22-30) mmol/L BUN (9-20) mg/dL Glucose (74-99) mg/dL POC Glucose (mg/dL) 196 H 194 H 190 H (75-99) mg/dL Calcium (8.4-10.2) mg/dL 10/30/19 10/30/19 10/30/19 Range/Units 20:09 21:06 21:57 WBC (3.8-10.6) k/uL RBC (4.30-5.90) m/uL Hgb (13.0-17.5) gm/dL Hct (39.0-53.0) % MCV (80.0-100.0) fL Plt Count (150-450) k/uL Neutrophils # (Manual) (1.3-7.7) k/uL Lymphocytes # (Manual) (1.0-4.8) k/uL ABG pCO2 (35-45) mmHg ABG HCO3 (21-25) mmol/L ABG O2 Saturation (94-97) % Sodium (137-145) mmol/L Potassium (3.5-5.1) mmol/L Chloride (98-107) mmol/L Carbon Dioxide (22-30) mmol/L BUN (9-20) mg/dL Glucose (74-99) mg/dL POC Glucose (mg/dL) 201 H 185 H 139 H (75-99) mg/dL Calcium (8.4-10.2) mg/dL 10/30/19 10/31/19 10/31/19 Range/Units 22:59 00:06 01:20 WBC (3.8-10.6) k/uL RBC (4.30-5.90) m/uL Hgb (13.0-17.5) gm/dL Hct (39.0-53.0) % MCV (80.0-100.0) fL Plt Count (150-450) k/uL Neutrophils # (Manual) (1.3-7.7) k/uL Lymphocytes # (Manual) (1.0-4.8) k/uL ABG pCO2 (35-45) mmHg ABG HCO3 (21-25) mmol/L ABG O2 Saturation (94-97) % Sodium (137-145) mmol/L Potassium (3.5-5.1) mmol/L Chloride (98-107) mmol/L Carbon Dioxide (22-30) mmol/L BUN (9-20) mg/dL Glucose (74-99) mg/dL POC Glucose (mg/dL) 144 H 148 H 145 H (75-99) mg/dL Calcium (8.4-10.2) mg/dL 10/31/19 10/31/19 10/31/19 Range/Units 02:08 03:04 03:55 WBC (3.8-10.6) k/uL RBC (4.30-5.90) m/uL Hgb (13.0-17.5) gm/dL Hct (39.0-53.0) % MCV (80.0-100.0) fL Plt Count (150-450) k/uL Neutrophils # (Manual) (1.3-7.7) k/uL Lymphocytes # (Manual) (1.0-4.8) k/uL ABG pCO2 (35-45) mmHg ABG HCO3 (21-25) mmol/L ABG O2 Saturation (94-97) % Sodium (137-145) mmol/L Potassium (3.5-5.1) mmol/L Chloride (98-107) mmol/L Carbon Dioxide (22-30) mmol/L BUN (9-20) mg/dL Glucose (74-99) mg/dL POC Glucose (mg/dL) 155 H 155 H 149 H (75-99) mg/dL Calcium (8.4-10.2) mg/dL 10/31/19 10/31/19 10/31/19 Range/Units 04:24 04:24 04:57 WBC 14.4 H (3.8-10.6) k/uL RBC 2.98 L (4.30-5.90) m/uL Hgb 9.8 L (13.0-17.5) gm/dL Hct 30.8 L (39.0-53.0) % MCV 103.5 H (80.0-100.0) fL Plt Count 467 H (150-450) k/uL Neutrophils # (Manual) 12.80 H (1.3-7.7) k/uL Lymphocytes # (Manual) 0.72 L (1.0-4.8) k/uL ABG pCO2 (35-45) mmHg ABG HCO3 (21-25) mmol/L ABG O2 Saturation (94-97) % Sodium 146 H (137-145) mmol/L Potassium 3.3 L (3.5-5.1) mmol/L Chloride 119 H (98-107) mmol/L Carbon Dioxide 21 L (22-30) mmol/L BUN 35 H (9-20) mg/dL Glucose 165 H (74-99) mg/dL POC Glucose (mg/dL) 167 H (75-99) mg/dL Calcium 7.3 L (8.4-10.2) mg/dL 10/31/19 10/31/19 10/31/19 Range/Units 06:10 06:55 07:39 WBC (3.8-10.6) k/uL RBC (4.30-5.90) m/uL Hgb (13.0-17.5) gm/dL Hct (39.0-53.0) % MCV (80.0-100.0) fL Plt Count (150-450) k/uL Neutrophils # (Manual) (1.3-7.7) k/uL Lymphocytes # (Manual) (1.0-4.8) k/uL ABG pCO2 29 L (35-45) mmHg ABG HCO3 20 L (21-25) mmol/L ABG O2 Saturation 98.8 H (94-97) % Sodium (137-145) mmol/L Potassium (3.5-5.1) mmol/L Chloride (98-107) mmol/L Carbon Dioxide (22-30) mmol/L BUN (9-20) mg/dL Glucose (74-99) mg/dL POC Glucose (mg/dL) 130 H 126 H (75-99) mg/dL Calcium (8.4-10.2) mg/dL 10/31/19 10/31/19 10/31/19 Range/Units 08:54 10:06 11:05 WBC (3.8-10.6) k/uL RBC (4.30-5.90) m/uL Hgb (13.0-17.5) gm/dL Hct (39.0-53.0) % MCV (80.0-100.0) fL Plt Count (150-450) k/uL Neutrophils # (Manual) (1.3-7.7) k/uL Lymphocytes # (Manual) (1.0-4.8) k/uL ABG pCO2 (35-45) mmHg ABG HCO3 (21-25) mmol/L ABG O2 Saturation (94-97) % Sodium (137-145) mmol/L Potassium (3.5-5.1) mmol/L Chloride (98-107) mmol/L Carbon Dioxide (22-30) mmol/L BUN (9-20) mg/dL Glucose (74-99) mg/dL POC Glucose (mg/dL) 183 H 223 H 203 H (75-99) mg/dL Calcium (8.4-10.2) mg/dL 10/31/19 10/31/19 Range/Units 11:59 13:01 WBC (3.8-10.6) k/uL RBC (4.30-5.90) m/uL Hgb (13.0-17.5) gm/dL Hct (39.0-53.0) % MCV (80.0-100.0) fL Plt Count (150-450) k/uL Neutrophils # (Manual) (1.3-7.7) k/uL Lymphocytes # (Manual) (1.0-4.8) k/uL ABG pCO2 (35-45) mmHg ABG HCO3 (21-25) mmol/L ABG O2 Saturation (94-97) % Sodium (137-145) mmol/L Potassium (3.5-5.1) mmol/L Chloride (98-107) mmol/L Carbon Dioxide (22-30) mmol/L BUN (9-20) mg/dL Glucose (74-99) mg/dL POC Glucose (mg/dL) 212 H 199 H (75-99) mg/dL Calcium (8.4-10.2) mg/dL Microbiology - Last 24 Hours (Table) 10/28/19 14:00 Blood Culture - Preliminary Blood No Growth after 48 hours 10/28/19 13:55 Gram Stain - Final Sputum Sputum Culture - Final Layne albicans Assessment and Plan (1) Hyponatremia Current Visit: Yes Status: Acute Code(s): E87.1 - HYPO-OSMOLALITY AND HYPONATREMIA SNOMED Code(s): 77974458 (2) Hyperkalemia Current Visit: Yes Status: Acute Code(s): E87.5 - HYPERKALEMIA SNOMED Code(s): 69308454 (3) Sigmoid diverticulitis Current Visit: Yes Status: Acute Code(s): K57.32 - DVTRCLI OF LG INT W/O PERFORATION OR ABSCESS W/O BLEEDING SNOMED Code(s): 720371193 (4) Dynamic ileus Current Visit: Yes Status: Acute Code(s): K56.7 - ILEUS, UNSPECIFIED SNOMED Code(s): 49688854 (5) Hyperosmolar syndrome Current Visit: Yes Status: Acute Code(s): E87.0 - HYPEROSMOLALITY AND HYPERNATREMIA SNOMED Code(s): 64827366 (6) Hyperosmolarity due to secondary diabetes mellitus Current Visit: Yes Status: Acute Code(s): E13.00 - OTH DIAB W HYPROSM W/O NONKET HYPRGLY-HYPROS COMA ([facility]) SNOMED Code(s): 09711885 (7) Altered mental state Current Visit: No Status: Acute Code(s): R41.82 - ALTERED MENTAL STATUS, UNSPECIFIED SNOMED Code(s): 255043539 (8) Dementia Current Visit: No Status: Acute Code(s): F03.90 - UNSPECIFIED DEMENTIA WIT HOUT BEHAVIORAL DISTURBANCE SNOMED Code(s): 33180898 (9) Renal insufficiency syndrome Current Visit: No Status: Acute Code(s): N28.9 - DISORDER OF KIDNEY AND URETER, UNSPECIFIED SNOMED Code(s): 994396874 (10) Shock liver Current Visit: Yes Status: Acute Code(s): K72.00 - ACUTE AND SUBACUTE HEPATIC FAILURE WITHOUT COMA SNOMED Code(s): 570967249 (11) Sepsis Current Visit: Yes Status: Acute Code(s): A41.9 - SEPSIS, UNSPECIFIED ORGANISM SNOMED Code(s): 89443672
[2019-10-31] MEDS: metroNIDAZOLE-NS PMX 500 MG in SALINE 1 100ML.BAG IVPB SCH ×2 (07:57→16:21)
[2019-10-31] MEDS: HEPARIN SODIUM,PORCINE 5,000 UNIT/ML 1 ML VIAL SQ SCH ×2 (07:57→16:21)
[2019-10-31 08:55] LABS: Glucose,Whole Blood 183 mg/dL (75-99)
[2019-10-31] MEDS: CHLORHEXIDINE GLUCONATE 15 ML CUP MUCOUS MEM SCH ×2 (09:57→21:59)
[2019-10-31] MEDS: PANTOPRAZOLE 40 MG/10 ML VIAL IV SCH (09:57)
[2019-10-31] MEDS: ASPIRIN 81 MG PO SCH (09:57)
[2019-10-31 10:08] LABS: Glucose,Whole Blood 223 mg/dL (75-99)
[2019-10-31 11:06] LABS: Glucose,Whole Blood 203 mg/dL (75-99)
[2019-10-31 12:00] LABS: Glucose,Whole Blood 212 mg/dL (75-99)
[2019-10-31] MEDS: AMIODARONE 200 MG TAB PO SCH ×2 (12:40→21:59)
--- NOTE | 2019-10-31 12:57 | P.PN ---
Subjective Progress Note Date: 10/31/19 Principal diagnosis: Hypovolemic shock, possible septic shock secondary to abdominal sepsis. 80-year-old male patient known history of dementia, diabetes hypertension osteoarthritis in addition to abdominal aortic aneurysm, presented to the ED with altered mentation and severe dehydration. The patient's was noted to have elevated blood sugars at home which prompted this hospital visit. He was unable to provide any history at time of admission. He was confused and disoriented and his condition was progressively getting worse over this past few weeks. He apparently had generalized weakness, falls, and he was not seeking any medical attention. He has Alzheimer's dementia. His has Alzheimer's dementia also. Apparently his oral intake has been minimal and the patient was drinking only 4 L of soda on a daily basis. He has been noncompliant his diabetic medications also. A blood sugar of more than 1800. Sodium was 116. Potassium was 5.7 with a chloride of 74 and a serum bicarbonate 8 with an anion gap of 34. Creatinine was 2.4 with a BUN of 33. The serum lactate was 11.7. Troponin was 0.8. Phosphorus was 8.8. Lipase was 229. UA showed +4 glucose and the serum acetone was negative. The patient received a total of 4 L of IV fluids in the emergency department. He was started on an insulin drip. Currently the patient is on half-normal saline with 20 mEq of potassium. The patient metabolic acidosis improving. Based on the follow-up blood gases the pH was 7.0 and septal 7.13. Serum bicarb is also on the rise. The serum pCO2 is 26. Troponin 38. This was done and FiO2 of 36%. Sodium level improved and septal 131 and a potassium level is at 3.8. Anion gap is improving is down to 28. Creatinine is still at 2.1. Most recent blood sugar shows that the sugar is still elevated above 600 with a serum measurement of 1230. The chest x-ray shows some subsegmental atelectasis in the right lower lobe. CAT scan of the brain shows no evidence of any acute hemorrhage. There is some degenerative changes and nonspecific white matter changes consistent with remote ischemia. EKG showing sinus tachycardia along with Q waves over the anteroseptal leads consistent with an old infarct. Heart rate is around 102. On today's evaluation of 10/22/2019, the patient is still lethargic and somnolent and encephalopathic. He is unable to volunteer any history. He has dementia. Furthermore there has been significant metabolic disturbances, leading to his impaired mentation. In terms of his blood sugar control, the patient has been on insulin drip at 3 units an hour. His IV fluids have been running in the form of D5 half-normal saline along with 20 mEq of potassium at the rate of 150 mL an hour. The patient was receiving another 2 L of IV fluid bolus based on the fact that it looks quite dry with very dry mucosal membranes on today's evaluation. In terms of his blood sugar control, the blood sugar was steadily going down and after the blood sugar went down below 300 was switched him to a D5 half-normal saline solution. His anion gap is at 10. The serum bicarb is at 18. His lactic acid level has dropped down to 6.0. His troponin peaked at 2.2. Denies having any chest pain. Note that his based on troponin was at 0.8. His EKG showed old Q-wave changes over the anteroseptal leads and echocardiac Tito was done today and the patient was found to have a ejection fraction estimated to be around 30-35% along with anteroseptal and apical hypokinesis. No evidence of an aortic valve stenosis. Unable to estimate the right-sided pressures. Unable to have a good visualization of the rest of the valves. His white cell count of 15.4. His antibiotic coverage includes a combination of Rocephin and Zithromax and Diflucan for now. There is some erythema along the penile tip and the Maradiaga catheter is in place. Repeat chest x-ray from today shows atelectatic changes in the right lower lobe. No other significant abnormalities have been noted. The patient is currently on 4 L of oxygen by nasal cannula with a pulse ox of 98%. He still has some underlying sinus tachycardia. On today's evaluation of 10/23/2019 the patient's condition decompensated. I have already contacted the son and updated them on his father's condition. Note that by yesterday afternoon, the patient became progressively more restless, agitated, shortness of breath, and he was also indicating the possibility of abdominal distention and pain. He was hard to communicate with him as the patient was not providing any meaningful information and he was altered mentally. Nevertheless, we suspected that the patient was having increased abdominal pain and discomfort. At that point, decided to insert an NG tube and immediately approximately a liter of gastric juice was obtained as a return. Abdomen remained quite tender and distended. At that point, the patient was also becoming more hypotensive. He was given more IV fluids. He was intubated and placed on a mechanical ventilator. Post intubation, the patient became hypotensive and he was started on IV pressors. Blood gases was noted. Chest x- ray was noted. The patient was developing a right lower lobe pulmonary infiltration. He was taken down for a CAT scan of the abdomen and pelvis and the CAT scan showed evidence of a infiltrate in the right lung base and fatty i nfiltration of the liver and some multiple calcified gallstones and the bile ducts were not dilated. At the same time, the CAT scan showed a fusiform 4.4 cm lower abdominal aortic aneurysm. There was no evidence of any retroperitoneal lymphadenopathy. There was multiple diverticula in the sigmoid colon and multiple dilated air fluid filled loops of the small bowel and the small bowel was dilated up to 4 cm in size. There was also mild wall thickening of the ascending colon. There was also minimal fat stranding around the sigmoid colon. There was osteoarthritis of the right hip. Antibiotics were modified and the patient was started on IV Zosyn. This morning, the patient is sedated with propofol at 20 g. This is to be switched to Versed at the patient's triglyceride level came up above 500. The patient is receiving IV fluids in the form of normal saline at rate of 100 mL an hour. His urine output is diminished and the patient's creatinine is at 2.5. The neck fluid balance over the past 24 hours has been +5.3 L. The patient is currently on norepinephrine infusion running at 0.4 mcg/kg per minute. The patient is also on insulin drip at 9 units an hour. Noted the blood sugar control is improved and the patient's lactic acid level was also improving it was down to 3.7. During the course of this treatment, the patient developed also a shock liver with elevated AST and ALT. He developed an acute kidney injury on top of his chronic kidney failure with a creatinine maxing at 2.7 down to 2.5. The patient is currently on a mechanical ventilator on assist control mode at the rate of 28 with tidal volume of 500 and FiO2 of 60% with a PEEP of 5. Morning blood gases showed a pH of 7.39 with a pCO2 of 26 and pO2 of 185. Morning chest x-ray showed right lower lobe pulmonary infiltration and subsequently a triple-lumen catheter was inserted and the supportive living catheter was inserted without any complications. Surgical consultation was also obtained regarding the abdominal findings. On 10/24/2019, the patient remains critically ill. The patient remains in shock and this is most likely a septic shock following an acute hypovolemic shock. The patient initially presented with HHS. Subsequently the patient started acting septic and the source is most likely the abdomen. The patient had a elevated TROPONIN level. Lactic acid levels were elevated and the patient had abdominal pain and distention. NG tube was inserted and a CAT scan of the abdomen was done that showed findings suggesting small bowel obstruction and some inflammatory changes involving the ascending colon and the sigmoid. Nevertheless, there was no evidence of any acute abdomen or pneumoperitoneum with ischemic bowel. The patient was kept on Zosyn and Flagyl was added. He did have difficulties with his hemodynamics and the patient was on and off becoming hypotensive and he was getting IV fluids to maintain a CVP above 10. The patient is currently receiving normal saline at the rate of 100 mL an hour. He is also on vasopressin at physiologic dose of 0.03 units per minute and the patient is on norepinephrine running at 0.38 g per KG per minute. Abdomen is still slightly distended and the patient is a bit tender and he can grimace upon abdominal [id number] white him being sedated with Versed which is running at 6 mg an hour. Gen. surgery will be asked to evaluate this patient. NG tube is in place and output over the past 24 hours has been in the order of 400 mL of gastric material. No bowel movements yet. He is having episodes of fever and the patient has had a temperature max of 11.1 and a temperature is down to 99.8. The patient had 2 additional sets of blood cultures sent patient was given a dose of vancomycin yesterday. This was done pending further cultures. Meanwhile, the patient remains on a mechanical ventilator. This morning, he remained on assist control mode with a tidal volume of 500 and FiO2 of 40% with a PEEP of 5. Chest x-ray is showing stable bilateral pulmonary infiltrates and atelectatic changes in lung bases. ET tube in good location so in the OG-tube. Her blood gases showed a pH of 7.39 with a pCO2 of 25 and pO2 of 67 and this was on above-mentioned ventilator setting. Lactic acid level is gradually dropped down to 3.0. The patient has shock liver. LFTs are considerably abnormal and the numbers are improving. AST is down to 2153 and ALT is down to 1107. As stated, neck yesterday dropped down to 3.2, the creatinine is still elevated at 2.2 with a BUN of 39 and the patient has a mild anion gap metabolic acidosis with a gap of 11 which is improved and his serum bicarbonate of 15. On today's evaluation of 10/25/2019, the patient remains critically ill. Remains intubated on a mechanical ventilator and remains sedated. On today's evaluation, he had an assist-control mode of ventilation and the patient is at the rate of 28 with a tidal volume of 500 and FiO2 of 50% with a PEEP of 5. The blood gases Show a pH of 7.51 with a pCO2 of 28 and pO2 of 65 and I think this is a essentially respiratory alkalosis as the patient's metabolic acidosis has recovered and the patient's serum bicarbonate was up to 22 while being given a bicarb infusion. The chest x-ray from today shows no significant interval change compared to yesterday's chest x-ray. There is a elevation of the right hemidiaphragm. The ET tube and NG tube remains in place. There is a left subclavian triple-lumen catheter in place. In my opinion, the patient remains quite septic. The patient is still having episodes of fever. The patient remains in shock and pressor dependent. Vasopressin is running at physiologic dose and the norepinephrine infusion has been drop down to 0.3 g per KG per minute. I had a discussion with the general surgeon and will going to continue the conservative approach. Patient is considered to be a high surgical risk for even exploration. Meanwhile, NG tube is in place and has drained approximately 900 mL of gastric material over the past 24 hours. Abdomen is slightly improved and less distended compared to yesterday. There is some mild direct tenderness without rebound tenderness. The patient is hypoactive in terms of his bowel sounds. Extremities abdomen is being done for a small bowel follow-through. The patient remains on insulin which is running at 2.5 units an hour for blood sugar control. The patient is on bicarb drip that he'll be taken off and this will decision to half-normal saline as the patient has also developed some hypernatremia. Serum bicarb is up to 21. He is having episodes of fever still. All of the repeat blood cultures came back negative. Hemoglobin is at 12.5. White cell count is at 10.7. Platelet count has dropped down to 94% is stable compared to yesterday. On 10/26/2019, the patient is currently being seen for a follow-up intubated on a mechanical ventilator in the intensive care unit. The patient remains sedated with Versed running at 6 mg an hour. While sedated and calm and comfortable and episodically requiring Dilaudid for pain control. He is on assist control rate of 22 with a tidal volume of 500 and FiO2 of 40% with a PEEP of 5. Blood gases showed a pH of 7.30 with a pCO2 of 32 and pO2 of 79 and the chest x-ray shows moderate-sized bilateral pleural effusions right more than left. ET tube is in a good location. NG tube is in good location. Output from the NG has slowed down and the patient is producing approximately 300-400 mL of NG output over the past 24 hours. The initial small bowel follow-through was consistent with small bowel obstruction as there was no passage of contrast past the jejunum. S ubsequent x-ray of the abdomen was done this morning and contrast has made it to the colon and as such there is probably there is no evidence of anatomic obstruction and this could be essentially an ileus. The patient remains nothing by mouth. The patient will be started on TPN for nutritional support. White cell count of 9.6. The sodium is at 149. BNP is 44 with a creatinine of 1.8 which is improved compared to yesterday. Most recent lactic acid level is down to 2.8. The patient was a shock liver and the AST/ALT levels are also improving based on yesterday's lab. No significant fever episodes since yesterday evening and the patient is not spiking any further temperature. Cultures are negative and the patient remains on a combination of Zosyn and Flagyl. Patient was reevaluated today on 10/27/19, remains in the ICU, intubated and mechanically ventilated. Patient's ventilator settings are assist control rate of 22 tidal volume is 500, FiO2 is 40%, PEEP is 5. ABG showed a pO2 of 80 pCO2 of 34 pH of 7.44. His drips include IV fluid at D5W 50 mL/h, TPN, Versed at 2 mg per hour, insulin at 5 units per hour, vasopressin at 0.03 units per minute. He is also on norepinephrine. 13 mcg/kg/m. Patient remains on Flagyl and Zosyn for presumptive abdominal sepsis. His CVP today is 5. Patient did have a mucoid bowel movement last night. Chest x-ray shows bilateral pleural ef fusions, right more so than left. Labs today showed relatively normal CBC, WBC count is 10.1 hemoglobin is 10.4. Electrolytes are normal sodium is improving down to 147 BUN is 42 creatinine is 1.54. Pro-calcitonin remains elevated at 8.54. Liver enzymes are improving. Patient was reevaluated today on 10/28/19, remains in the ICU, intubated and mechanically ventilated. His ventilator settings are assist control rate of 22 tidal volume is 500 FiO2 is 40% PEEP is 5. ABG showed a pO2 of 76 pCO2 of 31 and pH of 7.44 patient is on multiple drips including TPN at 10 5 mL per hour, and I cut it down to 80 mL per hour. He is on D5W which I have discontinued. He is also on insulin 21 units per hour. Vasopressin at 0.03 units per minute. Norepinephrine at 0.03 mcg/kg/MIN. Renal functioning is improving. And his urine output seems to be about 100 mL per hour. Chest x-ray continues to show right lower lobe atelectasis, consolidation, and possibly a small right-sided pleural effusion. Patient is sedated, however I have instructed the nurses to hold Versed, and assess his mental status today. Patient remains on Versed at 2 mg per hour. CBC is basically unremarkable hemoglobin is 9.4 WBC count is 12.7. BUN is 43 creatinine 1.38, steadily improving. Potassium is a bit low at 3.4, being corrected as per protocol. Pro-calcitonin remains high, and his chest x- ray is suggestive of right lower lobe consolidation. Blood cultures and urine cultures remain negative so far. Reevaluated today on 10/29/19, patient remains in the ICU, intubated and mechanically ventilated. Patient is on assist control rate of 22 tidal volume is 500 FiO2 is 40% and PEEP is 5. ABG showed a pO2 of 78 pCO2 of 33 and pH of 7.40. Patient has been off sedation for the last 24 hours. He only received 2 doses of Dilaudid last night, and he is off propofol. Remains on vasopressin at 0.03 units per minute, he is off norepinephrine, and his blood pressures seems to be holding nicely. IV fluid is at KVO. Patient is now on enteral feeding and off TPN completely. Patient had some bloody mucoid bowel movement, and it could be tested for C. diff, chest x-ray continues to show stable bibasilar ate lectasis or airspace disease with pleural effusions/small . Labs were reviewed WBC count is 14.2 hemoglobin is 9.5 electrolytes are relatively normal except for slight elevated sodium of 146. BUN continues to improve it is 45 today, and creatinine is 1.30 better compared to the last few days. Last pro-calcitonin was 8.54. Patient was reevaluated today on 10/30/19, remains in the intensive care unit, off sedation for the last 48 hours, continues to have no significant neurological response. CT of the brain was nondiagnostic. EEG was attempted yesterday, but there was excessive technical artifact. Hence it would be repeated today. Patient has a Glascow coma scale of 3. Obviously the patient is in profound coma. His narcotics and sedatives remain on hold, and he'll be reassessed again by neurology, may have to consider comfort care measures on this patient if he continues to have no significant neurological recovery. Patient is on assist control rate of 22 tidal volume is 500 FiO2 is 40% PEEP is 5. ABG showed a pO2 of 108 pCO2 of 30 pH of 7.43. Drips-medrano he is on insulin at 7.5 units per hour, he is off vasopressin and off norepinephrine he is on amiodarone 0.5 mg/m. WBC count is 15.4 hemoglobin is 10.1, BUN is 40 creatinine is 1.15 steadily improving. Reevaluated today on 10/31/19, patient remains in the intensive care unit. Remains intubated and mechanically ventilated. He is on assist control rate of 22, tidal volume is 500 FiO2 is 40% PEEP is 5. Patient remains comatose, unresponsive to any stimuli. Sedation and narcotics have been on hold for the last 3 days. And again no evidence of any neurological recovery noted in this patient. Pupils remain reactive. And sluggish. Patient does not respond to pain except occasional grimacing. Remains on insulin drip at 9 units per hour he is also on amiodarone 0.5 mg/m, and his IV fluid at KVO. WBC count is 14.4 hemoglobin is 9.8. ABG showed a pO2 of 104 pCO2 of 29 pH of 7.44 Objective - Vital Signs Vital signs: Vital Signs Temp 98.1 F 10/31/19 12:00 Pulse 92 10/31/19 12:00 Resp 26 H 10/31/19 12:00 BP 123/57 10/31/19 12:00 Pulse Ox 98 10/31/19 12:00 Intake & Output 10/30/19 10/31/19 10/31/19 18:59 06:59 18:59 Intake Total 2663.725 3037.237 935 Output Total 2170 1850 480 Balance 992.029 9430.237 455 Weight 87.4 kg Intake: IV 269 256 165 .9 Sodium Chloride @ 10ml 130 120 50 /hr Piperacillin-Tazobactam 3 100 100 100 .375 gm In Sodium Chloride 0.9% 100 ml @ 25 mls/hr IVPB Q8H INDU Rx#: [id number] Pressure Bag 39 36 15 Intake, IV Titration 414.725 431.237 150 Amount Amiodarone 300 mg In 250 250 Dextrose 5% in Water 250 ml @ 0.5 MG/MIN 25 mls/hr IV .Q10H INDU Rx#: [id number] Insulin Regular 100 unit 64.725 81.237 In Sodium Chloride 0.9% 100 ml @ Per Protocol IV .Q0M INDU Rx#:[id number] metroNIDAZOLE-NS PMX 500 100 100 150 mg In Saline 1 100ml.bag @ 100 mls/hr IVPB Q8HR INDU Rx#:[id number] Tube Feeding 980 1050 420 Other 1000 1300 200 Output: Urine 2170 850 480 Stool 1000 Other: Voiding Method Indwelling Catheter Indwelling Catheter Indwelling Catheter # Voids 1 1 ABP, PAP, CO, CI - Last Documented Arterial Blood Pressure 156/57 - Exam Physical Exam: Revealed an 79-year-old white male on responsive to any stimuli. Comatose. On mechanical ventilation. Head: Atraumatic, normocephalic. Endotracheal tube and orogastric tube are intact. HEENT:[Neck is supple.] [No neck masses.] [No thyromegaly.] [No JVD.] Left pupil is pinpoint, right pupil is 3 mm, reactive to light. Chest: [Symmetrical chest expansion, diminished breath sounds at the bases, no rhonchi and no wheezes.] Cardiac Exam: [Normal S1 and S2, no S3 gallop, no murmur.] Abdomen: [Flat, soft, nontender, positive bowel sounds. No rebound, no guarding.] Extremities: [No clubbing, 1+ bipedal edema and chronic venous stasis changes bilaterally. Chronic superficial ulcerations of lower extremities noted. Neurological Exam: Patient is comatose, grimaces to deep painful stimuli.. Glas wendy Coma Scale score is 3 Psychiatric: Could not be assessed. Skin: Superficial ulcerations lower extremities and chronic venous stasis changes. - Labs CBC & Chem 7: 10/31/19 04:24 10/31/19 04:24 Labs: Abnormal Lab Results - Last 24 Hours (Table) 10/30/19 10/30/19 10/30/19 Range/Units 13:07 14:18 15:13 WBC (3.8-10.6) k/uL RBC (4.30-5.90) m/uL Hgb (13.0-17.5) gm/dL Hct (39.0-53.0) % MCV (80.0-100.0) fL Plt Count (150-450) k/uL Neutrophils # (Manual) (1.3-7.7) k/uL Lymphocytes # (Manual) (1.0-4.8) k/uL ABG pCO2 (35-45) mmHg ABG HCO3 (21-25) mmol/L ABG O2 Saturation (94-97) % Sodium (137-145) mmol/L Potassium (3.5-5.1) mmol/L Chloride (98-107) mmol/L Carbon Dioxide (22-30) mmol/L BUN (9-20) mg/dL Glucose (74-99) mg/dL POC Glucose (mg/dL) 208 H 194 H 129 H (75-99) mg/dL Calcium (8.4-10.2) mg/dL 10/30/19 10/30/19 10/30/19 Range/Units 16:10 16:58 17:57 WBC (3.8-10.6) k/uL RBC (4.30-5.90) m/uL Hgb (13.0-17.5) gm/dL Hct (39.0-53.0) % MCV (80.0-100.0) fL Plt Count (150-450) k/uL Neutrophils # (Manual) (1.3-7.7) k/uL Lymphocytes # (Manual) (1.0-4.8) k/uL ABG pCO2 (35-45) mmHg ABG HCO3 (21-25) mmol/L ABG O2 Saturation (94-97) % Sodium (137-145) mmol/L Potassium (3.5-5.1) mmol/L Chloride (98-107) mmol/L Carbon Dioxide (22-30) mmol/L BUN (9-20) mg/dL Glucose (74-99) mg/dL POC Glucose (mg/dL) 203 H 196 H 194 H (75-99) mg/dL Calcium (8.4-10.2) mg/dL 10/30/19 10/30/19 10/30/19 Range/Units 18:58 20:09 21:06 WBC (3.8-10.6) k/uL RBC (4.30-5.90) m/uL Hgb (13.0-17.5) gm/dL Hct (39.0-53.0) % MCV (80.0-100.0) fL Plt Count (150-450) k/uL Neutrophils # (Manual) (1.3-7.7) k/uL Lymphocytes # (Manual) (1.0-4.8) k/uL ABG pCO2 (35-45) mmHg ABG HCO3 (21-25) mmol/L ABG O2 Saturation (94-97) % Sodium (137-145) mmol/L Potassium (3.5-5.1) mmol/L Chloride (98-107) mmol/L Carbon Dioxide (22-30) mmol/L BUN (9-20) mg/dL Glucose (74-99) mg/dL POC Glucose (mg/dL) 190 H 201 H 185 H (75-99) mg/dL Calcium (8.4-10.2) mg/dL 10/30/19 10/30/19 10/31/19 Range/Units 21:57 22:59 00:06 WBC (3.8-10.6) k/uL RBC (4.30-5.90) m/uL Hgb (13.0-17.5) gm/dL Hct (39.0-53.0) % MCV (80.0-100.0) fL Plt Count (150-450) k/uL Neutrophils # (Manual) (1.3-7.7) k/uL Lymphocytes # (Manual) (1.0-4.8) k/uL ABG pCO2 (35-45) mmHg ABG HCO3 (21-25) mmol/L ABG O2 Saturation (94-97) % Sodium (137-145) mmol/L Potassium (3.5-5.1) mmol/L Chloride (98-107) mmol/L Carbon Dioxide (22-30) mmol/L BUN (9-20) mg/dL Glucose (74-99) mg/dL POC Glucose (mg/dL) 139 H 144 H 148 H (75-99) mg/dL Calcium (8.4-10.2) mg/dL 10/31/19 10/31/19 10/31/19 Range/Units 01:20 02:08 03:04 WBC (3.8-10.6) k/uL RBC (4.30-5.90) m/uL Hgb (13.0-17.5) gm/dL Hct (39.0-53.0) % MCV (80.0-100.0) fL Plt Count (150-450) k/uL Neutrophils # (Manual) (1.3-7.7) k/uL Lymphocytes # (Manual) (1.0-4.8) k/uL ABG pCO2 (35-45) mmHg ABG HCO3 (21-25) mmol/L ABG O2 Saturation (94-97) % Sodium (137-145) mmol/L Potassium (3.5-5.1) mmol/L Chloride (98-107) mmol/L Carbon Dioxide (22-30) mmol/L BUN (9-20) mg/dL Glucose (74-99) mg/dL POC Glucose (mg/dL) 145 H 155 H 155 H (75-99) mg/dL Calcium (8.4-10.2) mg/dL 10/31/19 10/31/19 10/31/19 Range/Units 03:55 04:24 04:24 WBC 14.4 H (3.8-10.6) k/uL RBC 2.98 L (4.30-5.90) m/uL Hgb 9.8 L (13.0-17.5) gm/dL Hct 30.8 L (39.0-53.0) % MCV 103.5 H (80.0-100.0) fL Plt Count 467 H (150-450) k/uL Neutrophils # (Manual) 12.80 H (1.3-7.7) k/uL Lymphocytes # (Manual) 0.72 L (1.0-4.8) k/uL ABG pCO2 (35-45) mmHg ABG HCO3 (21-25) mmol/L ABG O2 Saturation (94-97) % Sodium 146 H (137-145) mmol/L Potassium 3.3 L (3.5-5.1) mmol/L Chloride 119 H (98-107) mmol/L Carbon Dioxide 21 L (22-30) mmol/L BUN 35 H (9-20) mg/dL Glucose 165 H (74-99) mg/dL POC Glucose (mg/dL) 149 H (75-99) mg/dL Calcium 7.3 L (8.4-10.2) mg/dL 10/31/19 10/31/19 10/31/19 Range/Units 04:57 06:10 06:55 WBC (3.8-10.6) k/uL RBC (4.30-5.90) m/uL Hgb (13.0-17.5) gm/dL Hct (39.0-53.0) % MCV (80.0-100.0) fL Plt Count (150-450) k/uL Neutrophils # (Manual) (1.3-7.7) k/uL Lymphocytes # (Manual) (1.0-4.8) k/uL ABG pCO2 (35-45) mmHg ABG HCO3 (21-25) mmol/L ABG O2 Saturation (94-97) % Sodium (137-145) mmol/L Potassium (3.5-5.1) mmol/L Chloride (98-107) mmol/L Carbon Dioxide (22-30) mmol/L BUN (9-20) mg/dL Glucose (74-99) mg/dL POC Glucose (mg/dL) 167 H 130 H 126 H (75-99) mg/dL Calcium (8.4-10.2) mg/dL 10/31/19 10/31/19 10/31/19 Range/Units 07:39 08:54 10:06 WBC (3.8-10.6) k/uL RBC (4.30-5.90) m/uL Hgb (13.0-17.5) gm/dL Hct (39.0-53.0) % MCV (80.0-100.0) fL Plt Count (150-450) k/uL Neutrophils # (Manual) (1.3-7.7) k/uL Lymphocytes # (Manual) (1.0-4.8) k/uL ABG pCO2 29 L (35-45) mmHg ABG HCO3 20 L (21-25) mmol/L ABG O2 Saturation 98.8 H (94-97) % Sodium (137-145) mmol/L Potassium (3.5-5.1) mmol/L Chloride (98-107) mmol/L Carbon Dioxide (22-30) mmol/L BUN (9-20) mg/dL Glucose (74-99) mg/dL POC Glucose (mg/dL) 183 H 223 H (75-99) mg/dL Calcium (8.4-10.2) mg/dL 10/31/19 10/31/19 Range/Units 11:05 11:59 WBC (3.8-10.6) k/uL RBC (4.30-5.90) m/uL Hgb (13.0-17.5) gm/dL Hct (39.0-53.0) % MCV (80.0-100.0) fL Plt Count (150-450) k/uL Neutrophils # (Manual) (1.3-7.7) k/uL Lymphocytes # (Manual) (1.0-4.8) k/uL ABG pCO2 (35-45) mmHg ABG HCO3 (21-25) mmol/L ABG O2 Saturation (94-97) % Sodium (137-145) mmol/L Potassium (3.5-5.1) mmol/L Chloride (98-107) mmol/L Carbon Dioxide (22-30) mmol/L BUN (9-20) mg/dL Glucose (74-99) mg/dL POC Glucose (mg/dL) 203 H 212 H (75-99) mg/dL Calcium (8.4-10.2) mg/dL Microbiology - Last 24 Hours (Table) 10/28/19 14:00 Blood Culture - Preliminary Blood No Growth after 48 hours 10/28/19 13:55 Gram Stain - Final Sputum Sputum Culture - Final Layne albicans Assessment and Plan Assessment: Impression: Acute hypoxic respiratory failure secondary to hypovolemic and septic shock. Acute abdominal sepsis, small bowel ileus/obstruction, remains on Zosyn and Flagyl. Possible right lower lobe pneumonia, hospital-acquired or could be aspiration related. Acute hyperosmolar nonketotic diabetic syndrome with profound hypovolemia and volume depletion/dehydration. Acute kidney injury secondary to hypovolemia and possible septic shock with acute tubular necrosis. Improving. Altered mental status on presentation secondary to hyperosmolar nonketotic state. History of Alzheimer's dementia Type 2 diabetes Pseudohyponatremia on presentation secondary to severe hyperglycemia. 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 History of 4.6 cm distal abdominal aortic aneurysm and previous iliac stent the graft placement. Acute shock liver secondary to hypotension on presentation. Improving. History of ischemic cardiomyopathy and LV dysfunction, ejection fraction of 30%. Severe lactic acidosis on presentation most likely secondary to abdominal sepsis and ischemic bowel. Coma with a Felisha scale of 3, EEG is pending, CT of the brain is nondiagnostic. Recommendation: Continue ventilatory support. Continue to hold sedatives and narcotics Based on the neurological input, may have to approach family about comfort care measures. Continue GI and DVT prophylaxis. Continue insulin. Continue antibiotics/Zosyn and Flagyl. Continue IV fluid at KVO. Continue enteral feeding Overall prognosis is extremely poor and guarded. Critical care time is 34 minutes. We'll continue to follow Time with Patient: Greater than 30
[2019-10-31 13:02] LABS: Glucose,Whole Blood 199 mg/dL (75-99)
--- NOTE | 2019-10-31 13:19 | P.PN ---
<Jodie Garcia A - Last Filed: 10/31/19 13:17> Subjective Progress Note Date: 10/31/19 CHIEF COMPLAINT: Sepsis HISTORY OF PRESENT ILLNESS: Patient examined in the intensive care. Patient remains on mechanical ventilation. Tube feedings are infusing. He is tolerating well. Patient has a FMS which brown liquid stool. PHYSICAL EXAM: VITAL SIGNS: Reviewed GENERAL: Well-developed in no acute distress. HEENT: No sclera icterus. Extraocular movements grossly intact. Moist buccal mucosa. Head is atraumatic, normocephalic. No nasal drainage. NECK: Supple without lymphadenopathy. CHEST: Non-labored respirations and equal bilateral excursions. CARDIOVASCULAR: Regular rate with regular rhythm. Palpable 2+ radial pulses. ABDOMEN: Soft. Nondistended. Nontender. NG tube noted with tube feeding infusing. MUSCULOSKELETAL: No clubbing or cyanosis. NEUROLOGIC: Remains on mechanical ventilation PSYCH: Remains on mechanical ventilation. Sedation has been turned off. SKIN: Well perfused. Good skin turgor. ASSESSMENT: 1. Abnormal computed tomography scan with small bowel distention, resolving PLAN: Continue tube feedings as tolerated Patient has been off sedation with no meaningful neurological response. Patient not a candidate for trach/peg. Possible comfort care measures if family agreeabl e. Nurse practitioner note has been reviewed by physician. Signing provider agrees with the documented findings, assessment, and plan of care. Objective - Vital Signs Vital signs: Vital Signs Temp 98.1 F 10/31/19 12:00 Pulse 93 10/31/19 13:00 Resp 24 10/31/19 13:00 BP 134/62 10/31/19 13:00 Pulse Ox 100 10/31/19 13:00 Intake & Output 10/30/19 10/31/19 10/31/19 18:59 06:59 18:59 Intake Total 2663.725 3037.237 1497.62 Output Total 2170 1850 550 Balance 466.018 2361.237 947.62 Weight 87.4 kg Intake: IV 269 256 178 .9 Sodium Chloride @ 10ml 130 120 60 /hr Piperacillin-Tazobactam 3 100 100 100 .375 gm In Sodium Chloride 0.9% 100 ml @ 25 mls/hr IVPB Q8H [facility] Rx#: [id number] Pressure Bag 39 36 18 Intake, IV Titration 414.725 431.237 159.62 Amount Amiodarone 300 mg In 250 250 Dextrose 5% in Water 250 ml @ 0.5 MG/MIN 25 mls/hr IV .Q10H [facility] Rx#: [id number] Insulin Regular 100 unit 64.725 81.237 9.62 In Sodium Chloride 0.9% 100 ml @ Per Protocol IV .Q0M [facility] Rx#:[id number] metroNIDAZOLE-NS PMX 500 100 100 150 mg In Saline 1 100ml.bag @ 100 mls/hr IVPB Q8HR [facility] Rx#:[id number] Tube Feeding 980 1050 560 Other 1000 1300 600 Output: Urine 2170 850 550 Stool 1000 Other: Voiding Method Indwelling Catheter Indwelling Catheter Indwelling Catheter # Voids 1 1 ABP, PAP, CO, CI - Last Documented Arterial Blood Pressure 154/56 - Labs CBC & Chem 7: 10/31/19 04:24 10/31/19 04:24 Labs: Abnormal Lab Results - Last 24 Hours (Table) 10/30/19 10/30/19 10/30/19 Range/Units 14:18 15:13 16:10 WBC (3.8-10.6) k/uL RBC (4.30-5.90) m/uL Hgb (13.0-17.5) gm/dL Hct (39.0-53.0) % MCV (80.0-100.0) fL Plt Count (150-450) k/uL Neutrophils # (Manual) (1.3-7.7) k/uL Lymphocytes # (Manual) (1.0-4.8) k/uL ABG pCO2 (35-45) mmHg ABG HCO3 (21-25) mmol/L ABG O2 Saturation (94-97) % Sodium (137-145) mmol/L Potassium (3.5-5.1) mmol/L Chloride (98-107) mmol/L Carbon Dioxide (22-30) mmol/L BUN (9-20) mg/dL Glucose (74-99) mg/dL POC Glucose (mg/dL) 194 H 129 H 203 H (75-99) mg/dL Calcium (8.4-10.2) mg/dL 10/30/19 10/30/19 10/30/19 Range/Units 16:58 17:57 18:58 WBC (3.8-10.6) k/uL RBC (4.30-5.90) m/uL Hgb (13.0-17.5) gm/dL Hct (39.0-53.0) % MCV (80.0-100.0) fL Plt Count (150-450) k/uL Neutrophils # (Manual) (1.3-7.7) k/uL Lymphocytes # (Manual) (1.0-4.8) k/uL ABG pCO2 (35-45) mmHg ABG HCO3 (21-25) mmol/L ABG O2 Saturation (94-97) % Sodium (137-145) mmol/L Potassium (3.5-5.1) mmol/L Chloride (98-107) mmol/L Carbon Dioxide (22-30) mmol/L BUN (9-20) mg/dL Glucose (74-99) mg/dL POC Glucose (mg/dL) 196 H 194 H 190 H (75-99) mg/dL Calcium (8.4-10.2) mg/dL 10/30/19 10/30/19 10/30/19 Range/Units 20:09 21:06 21:57 WBC (3.8-10.6) k/uL RBC (4.30-5.90) m/uL Hgb (13.0-17.5) gm/dL Hct (39.0-53.0) % MCV (80.0-100.0) fL Plt Count (150-450) k/uL Neutrophils # (Manual) (1.3-7.7) k/uL Lymphocytes # (Manual) (1.0-4.8) k/uL ABG pCO2 (35-45) mmHg ABG HCO3 (21-25) mmol/L ABG O2 Saturation (94-97) % Sodium (137-145) mmol/L Potassium (3.5-5.1) mmol/L Chloride (98-107) mmol/L Carbon Dioxide (22-30) mmol/L BUN (9-20) mg/dL Glucose (74-99) mg/dL POC Glucose (mg/dL) 201 H 185 H 139 H (75-99) mg/dL Calcium (8.4-10.2) mg/dL 10/30/19 10/31/19 10/31/19 Range/Units 22:59 00:06 01:20 WBC (3.8-10.6) k/uL RBC (4.30-5.90) m/uL Hgb (13.0-17.5) gm/dL Hct (39.0-53.0) % MCV (80.0-100.0) fL Plt Count (150-450) k/uL Neutrophils # (Manual) (1.3-7.7) k/uL Lymphocytes # (Manual) (1.0-4.8) k/uL ABG pCO2 (35-45) mmHg ABG HCO3 (21-25) mmol/L ABG O2 Saturation (94-97) % Sodium (137-145) mmol/L Potassium (3.5-5.1) mmol/L Chloride (98-107) mmol/L Carbon Dioxide (22-30) mmol/L BUN (9-20) mg/dL Glucose (74-99) mg/dL POC Glucose (mg/dL) 144 H 148 H 145 H (75-99) mg/dL Calcium (8.4-10.2) mg/dL 10/31/19 10/31/19 10/31/19 Range/Units 02:08 03:04 03:55 WBC (3.8-10.6) k/uL RBC (4.30-5.90) m/uL Hgb (13.0-17.5) gm/dL Hct (39.0-53.0) % MCV (80.0-100.0) fL Plt Count (150-450) k/uL Neutrophils # (Manual) (1.3-7.7) k/uL Lymphocytes # (Manual) (1.0-4.8) k/uL ABG pCO2 (35-45) mmHg ABG HCO3 (21-25) mmol/L ABG O2 Saturation (94-97) % Sodium (137-145) mmol/L Potassium (3.5-5.1) mmol/L Chloride (98-107) mmol/L Carbon Dioxide (22-30) mmol/L BUN (9-20) mg/dL Glucose (74-99) mg/dL POC Glucose (mg/dL) 155 H 155 H 149 H (75-99) mg/dL Calcium (8.4-10.2) mg/dL 10/31/19 10/31/19 10/31/19 Range/Units 04:24 04:24 04:57 WBC 14.4 H (3.8-10.6) k/uL RBC 2.98 L (4.30-5.90) m/uL Hgb 9.8 L (13.0-17.5) gm/dL Hct 30.8 L (39.0-53.0) % MCV 103.5 H (80.0-100.0) fL Plt Count 467 H (150-450) k/uL Neutrophils # (Manual) 12.80 H (1.3-7.7) k/uL Lymphocytes # (Manual) 0.72 L (1.0-4.8) k/uL ABG pCO2 (35-45) mmHg ABG HCO3 (21-25) mmol/L ABG O2 Saturation (94-97) % Sodium 146 H (137-145) mmol/L Potassium 3.3 L (3.5-5.1) mmol/L Chloride 119 H (98-107) mmol/L Carbon Dioxide 21 L (22-30) mmol/L BUN 35 H (9-20) mg/dL Glucose 165 H (74-99) mg/dL POC Glucose (mg/dL) 167 H (75-99) mg/dL Calcium 7.3 L (8.4-10.2) mg/dL 10/31/19 10/31/19 10/31/19 Range/Units 06:10 06:55 07:39 WBC (3.8-10.6) k/uL RBC (4.30-5.90) m/uL Hgb (13.0-17.5) gm/dL Hct (39.0-53.0) % MCV (80.0-100.0) fL Plt Count (150-450) k/uL Neutrophils # (Manual) (1.3-7.7) k/uL Lymphocytes # (Manual) (1.0-4.8) k/uL ABG pCO2 29 L (35-45) mmHg ABG HCO3 20 L (21-25) mmol/L ABG O2 Saturation 98.8 H (94-97) % Sodium (137-145) mmol/L Potassium (3.5-5.1) mmol/L Chloride (98-107) mmol/L Carbon Dioxide (22-30) mmol/L BUN (9-20) mg/dL Glucose (74-99) mg/dL POC Glucose (mg/dL) 130 H 126 H (75-99) mg/dL Calcium (8.4-10.2) mg/dL 10/31/19 10/31/19 10/31/19 Range/Units 08:54 10:06 11:05 WBC (3.8-10.6) k/uL RBC (4.30-5.90) m/uL Hgb (13.0-17.5) gm/dL Hct (39.0-53.0) % MCV (80.0-100.0) fL Plt Count (150-450) k/uL Neutrophils # (Manual) (1.3-7.7) k/uL Lymphocytes # (Manual) (1.0-4.8) k/uL ABG pCO2 (35-45) mmHg ABG HCO3 (21-25) mmol/L ABG O2 Saturation (94-97) % Sodium (137-145) mmol/L Potassium (3.5-5.1) mmol/L Chloride (98-107) mmol/L Carbon Dioxide (22-30) mmol/L BUN (9-20) mg/dL Glucose (74-99) mg/dL POC Glucose (mg/dL) 183 H 223 H 203 H (75-99) mg/dL Calcium (8.4-10.2) mg/dL 10/31/19 10/31/19 Range/Units 11:59 13:01 WBC (3.8-10.6) k/uL RBC (4.30-5.90) m/uL Hgb (13.0-17.5) gm/dL Hct (39.0-53.0) % MCV (80.0-100.0) fL Plt Count (150-450) k/uL Neutrophils # (Manual) (1.3-7.7) k/uL Lymphocytes # (Manual) (1.0-4.8) k/uL ABG pCO2 (35-45) mmHg ABG HCO3 (21-25) mmol/L ABG O2 Saturation (94-97) % Sodium (137-145) mmol/L Potassium (3.5-5.1) mmol/L Chloride (98-107) mmol/L Carbon Dioxide (22-30) mmol/L BUN (9-20) mg/dL Glucose (74-99) mg/dL POC Glucose (mg/dL) 212 H 199 H (75-99) mg/dL Calcium (8.4-10.2) mg/dL Microbiology - Last 24 Hours (Table) 10/28/19 14:00 Blood Culture - Preliminary Blood No Growth after 48 hours 10/28/19 13:55 Gram Stain - Final Sputum Sputum Culture - Final Layne albicans <Bess Quintero - Last Filed: 11/03/19 21:22> Subjective Patient seen and evaluated with nurse practitioner and agree with above. HISTORY OF PRESENT ILLNESS: The patient is a 79 year old male who has been intubated for over 2 weeks. He had multiple comorbidities including liver shock, sepsis, small bowel obstruction now resolved, elevated troponins, uncontrolled diabetes, dehydration, and now little neurological activity. He is tolerating tube feeds and having bowel movements. REVIEW OF ORGAN SYSTEMS: He is still on full mechanical support. No blood in stools. PHYSICAL EXAM: VITALS: Reviewed CONSTITUTIONAL: Well developed and in no acute distress. EYES: Conjuctivae without sclera icterus. HEAD, EARS, NOSE, THROAT: Moist buccal mucosa. Head is atraumatic, normocephalic. No nasal drainage. NECK: Supple. No thyroidomegaly. RESPIRATORY: Mechanical ventilation. No gross wheezes. CARDIOVASCULAR: Palpable 2+ radial pulses. ABDOMEN: Soft. No peritonitis. MUSCULOSKELETAL: Toes cool to touch. No gross abnormalities. SKIN: Warm and well perfused with good skin turgor. NEUROLOGIC: No focal or lateralizing signs. PSYCH: Impaired CLINCAL LABS: Reviewed. ASSESSMENT: 1. Small bowel obstruction resolved 2. Abdominal aortic aneurysm 3. Uncontrolled diabetes type 2 with hyperglycemia 4. Lactic acidosis 5. Acute respiratory failure 6. Dementia PLAN: 1. With the patient's poor neurological status, recommend evaluation for comfort care 2. No surgical intervention advised Objective - Vital Signs Vital signs: Vital Signs Temp 100.2 F H 11/03/19 20:00 Pulse 98 11/03/19 20:00 Resp 25 H 11/03/19 20:00 BP 121/65 10/31/19 23:00 Pulse Ox 96 11/03/19 20:00 Intake & Output 11/03/19 11/03/19 11/04/19 06:59 18:59 06:59 Intake Total 2427.126 2371.111 113 Output Total 1950 1840 125 Balance 477.126 531.111 -12 Weight 88.2 kg Intake: IV 248 181 13 .9 Sodium Chloride @ 10ml 40 120 10 /hr Piperacillin-Tazobactam 3 175 25 .375 gm In Sodium Chloride 0.9% 100 ml @ 25 mls/hr IVPB Q8H [facility] Rx#: [id number] Pressure Bag 33 36 3 Intake, IV Titration 69.126 80.111 Amount Insulin Regular 100 unit 69.126 80.111 In Sodium Chloride 0.9% 100 ml @ Per Protocol IV .Q0M [facility] Rx#:[id number] Tube Feeding 910 910 70 Other 1200 1200 30 Output: Urine 750 840 125 Stool 1200 1000 Other: Voiding Method Indwelling Catheter Indwelling Catheter ABP, PAP, CO, CI - Last Documented Arterial Blood Pressure 146/41 - Labs CBC & Chem 7: 11/03/19 04:10 11/03/19 13:00 Labs: Abnormal Lab Results - Last 24 Hours (Table) 11/02/19 11/02/19 11/02/19 Range/Units 21:23 22:15 23:20 WBC (3.8-10.6) k/uL RBC (4.30-5.90) m/uL Hgb (13.0-17.5) gm/dL Hct (39.0-53.0) % MCV (80.0-100.0) fL MCHC (31.0-37.0) g/dL Plt Count (150-450) k/uL ABG pCO2 (35-45) mmHg ABG pO2 (83-108) mmHg ABG HCO3 (21-25) mmol/L ABG Total CO2 (19-24) mmol/L ABG O2 Saturation (94-97) % Potassium (3.5-5.1) mmol/L Chloride (98-107) mmol/L Carbon Dioxide (22-30) mmol/L BUN (9-20) mg/dL Glucose (74-99) mg/dL POC Glucose (mg/dL) 218 H 224 H 181 H (75-99) mg/dL Calcium (8.4-10.2) mg/dL 11/03/19 11/03/19 11/03/19 Range/Units 00:02 00:59 02:55 WBC (3.8-10.6) k/uL RBC (4.30-5.90) m/uL Hgb (13.0-17.5) gm/dL Hct (39.0-53.0) % MCV (80.0-100.0) fL MCHC (31.0-37.0) g/dL Plt Count (150-450) k/uL ABG pCO2 (35-45) mmHg ABG pO2 (83-108) mmHg ABG HCO3 (21-25) mmol/L ABG Total CO2 (19-24) mmol/L ABG O2 Saturation (94-97) % Potassium (3.5-5.1) mmol/L Chloride (98-107) mmol/L Carbon Dioxide (22-30) mmol/L BUN (9-20) mg/dL Glucose (74-99) mg/dL POC Glucose (mg/dL) 178 H 195 H 142 H (75-99) mg/dL Calcium (8.4-10.2) mg/dL 11/03/19 11/03/19 11/03/19 Range/Units 04:10 04:10 04:15 WBC 11.4 H (3.8-10.6) k/uL RBC 2.60 L (4.30-5.90) m/uL Hgb 8.3 L (13.0-17.5) gm/dL Hct 27.1 L (39.0-53.0) % MCV 104.4 H (80.0-100.0) fL MCHC 30.6 L (31.0-37.0) g/dL Plt Count 783 H (150-450) k/uL ABG pCO2 (35-45) mmHg ABG pO2 (83-108) mmHg ABG HCO3 (21-25) mmol/L ABG Total CO2 (19-24) mmol/L ABG O2 Saturation (94-97) % Potassium 3.3 L (3.5-5.1) mmol/L Chloride 121 H (98-107) mmol/L Carbon Dioxide 18 L (22-30) mmol/L BUN 25 H (9-20) mg/dL Glucose 123 H (74-99) mg/dL POC Glucose (mg/dL) 130 H (75-99) mg/dL Calcium 7.0 L (8.4-10.2) mg/dL 11/03/19 11/03/19 11/03/19 Range/Units 05:07 06:18 07:11 WBC (3.8-10.6) k/uL RBC (4.30-5.90) m/uL Hgb (13.0-17.5) gm/dL Hct (39.0-53.0) % MCV (80.0-100.0) fL MCHC (31.0-37.0) g/dL Plt Count (150-450) k/uL ABG pCO2 (35-45) mmHg ABG pO2 (83-108) mmHg ABG HCO3 (21-25) mmol/L ABG Total CO2 (19-24) mmol/L ABG O2 Saturation (94-97) % Potassium (3.5-5.1) mmol/L Chloride (98-107) mmol/L Carbon Dioxide (22-30) mmol/L BUN (9-20) mg/dL Glucose (74-99) mg/dL POC Glucose (mg/dL) 140 H 197 H 193 H (75-99) mg/dL Calcium (8.4-10.2) mg/dL 11/03/19 11/03/19 11/03/19 Range/Units 07:16 08:01 10:40 WBC (3.8-10.6) k/uL RBC (4.30-5.90) m/uL Hgb (13.0-17.5) gm/dL Hct (39.0-53.0) % MCV (80.0-100.0) fL MCHC (31.0-37.0) g/dL Plt Count (150-450) k/uL ABG pCO2 24 L (35-45) mmHg ABG pO2 128 H (83-108) mmHg ABG HCO3 16 L (21-25) mmol/L ABG Total CO2 16 L (19-24) mmol/L ABG O2 Saturation 99.1 H (94-97) % Potassium (3.5-5.1) mmol/L Chloride (98-107) mmol/L Carbon Dioxide (22-30) mmol/L BUN (9-20) mg/dL Glucose (74-99) mg/dL POC Glucose (mg/dL) 203 H 129 H (75-99) mg/dL Calcium (8.4-10.2) mg/dL 11/03/19 11/03/19 11/03/19 Range/Units 12:09 12:27 13:00 WBC (3.8-10.6) k/uL RBC (4.30-5.90) m/uL Hgb (13.0-17.5) gm/dL Hct (39.0-53.0) % MCV (80.0-100.0) fL MCHC (31.0-37.0) g/dL Plt Count (150-450) k/uL ABG pCO2 28 L (35-45) mmHg ABG pO2 (83-108) mmHg ABG HCO3 18 L (21-25) mmol/L ABG Total CO2 (19-24) mmol/L ABG O2 Saturation 97.8 H (94-97) % Potassium 3.4 L (3.5-5.1) mmol/L Chloride (98-107) mmol/L Carbon Dioxide (22-30) mmol/L BUN (9-20) mg/dL Glucose (74-99) mg/dL POC Glucose (mg/dL) 179 H (75-99) mg/dL Calcium (8.4-10.2) mg/dL 11/03/19 11/03/19 11/03/19 Range/Units 13:06 15:18 16:01 WBC (3.8-10.6) k/uL RBC (4.30-5.90) m/uL Hgb (13.0-17.5) gm/dL Hct (39.0-53.0) % MCV (80.0-100.0) fL MCHC (31.0-37.0) g/dL Plt Count (150-450) k/uL ABG pCO2 (35-45) mmHg ABG pO2 (83-108) mmHg ABG HCO3 (21-25) mmol/L ABG Total CO2 (19-24) mmol/L ABG O2 Saturation (94-97) % Potassium (3.5-5.1) mmol/L Chloride (98-107) mmol/L Carbon Dioxide (22-30) mmol/L BUN (9-20) mg/dL Glucose (74-99) mg/dL POC Glucose (mg/dL) 225 H 140 H 136 H (75-99) mg/dL Calcium (8.4-10.2) mg/dL 11/03/19 11/03/19 11/03/19 Range/Units 17:04 18:08 18:56 WBC (3.8-10.6) k/uL RBC (4.30-5.90) m/uL Hgb (13.0-17.5) gm/dL Hct (39.0-53.0) % MCV (80.0-100.0) fL MCHC (31.0-37.0) g/dL Plt Count (150-450) k/uL ABG pCO2 (35-45) mmHg ABG pO2 (83-108) mmHg ABG HCO3 (21-25) mmol/L ABG Total CO2 (19-24) mmol/L ABG O2 Saturation (94-97) % Potassium (3.5-5.1) mmol/L Chloride (98-107) mmol/L Carbon Dioxide (22-30) mmol/L BUN (9-20) mg/dL Glucose (74-99) mg/dL POC Glucose (mg/dL) 150 H 127 H 147 H (75-99) mg/dL Calcium (8.4-10.2) mg/dL 11/03/19 Range/Units 20:25 WBC (3.8-10.6) k/uL RBC (4.30-5.90) m/uL Hgb (13.0-17.5) gm/dL Hct (39.0-53.0) % MCV (80.0-100.0) fL MCHC (31.0-37.0) g/dL Plt Count (150-450) k/uL ABG pCO2 (35-45) mmHg ABG pO2 (83-108) mmHg ABG HCO3 (21-25) mmol/L ABG Total CO2 (19-24) mmol/L ABG O2 Saturation (94-97) % Potassium (3.5-5.1) mmol/L Chloride (98-107) mmol/L Carbon Dioxide (22-30) mmol/L BUN (9-20) mg/dL Glucose (74-99) mg/dL POC Glucose (mg/dL) 153 H (75-99) mg/dL Calcium (8.4-10.2) mg/dL Microbiology - Last 24 Hours (Table) 10/28/19 14:00 Blood Culture - Final Blood No Growth after 144 hours Assessment and Plan (1) Hyponatremia Current Visit: Yes Status: Acute Code(s): E87.1 - HYPO-OSMOLALITY AND HYPONATREMIA SNOMED Code(s): 77580866 (2) Hyperkalemia Current Visit: Yes Status: Acute Code(s): E87.5 - HYPERKALEMIA SNOMED Code(s): 78798478 (3) Sigmoid diverticulitis Current Visit: Yes Status: Acute Code(s): K57.32 - DVTRCLI OF LG INT W/O PERFORATION OR ABSCESS W/O BLEEDING SNOMED Code(s): 775944059 (4) Dynamic ileus Current Visit: Yes Status: Acute Code(s): K56.7 - ILEUS, UNSPECIFIED S NOMED Code(s): 71711812 (5) Hyperosmolar syndrome Current Visit: Yes Status: Acute Code(s): E87.0 - HYPEROSMOLALITY AND HYPERNATREMIA SNOMED Code(s): 84272333 (6) Hyperosmolarity due to secondary diabetes mellitus Current Visit: Yes Status: Acute Code(s): E13.00 - OTH DIAB W HYPROSM W/O NONKET HYPRGLY-HYPROS COMA ([facility]) SNOMED Code(s): 10807064 (7) Altered mental state Current Visit: No Status: Acute Code(s): R41.82 - ALTERED MENTAL STATUS, UNSPECIFIED SNOMED Code(s): 136472875 (8) Dementia Current Visit: No Status: Acute Code(s): F03.90 - UNSPECIFIED DEMENTIA WITHOUT BEHAVIORAL DISTURBANCE SNOMED Code(s): 67782402 (9) Renal insufficiency syndrome Current Visit: No Status: Acute Code(s): N28.9 - DISORDER OF KIDNEY AND URETER, UNSPECIFIED SNOMED Code(s): 553207337 (10) Shock liver Current Visit: Yes Status: Acute Code(s): K72.00 - ACUTE AND SUBACUTE HEPATIC FAILURE WITHOUT COMA SNOMED Code(s): 414897930 (11) Sepsis Current Visit: Yes Status: Acute Code(s): A41.9 - SEPSIS, UNSPECIFIED ORGANISM SNOMED Code(s): 00979873
[2019-10-31 14:04] LABS: Glucose,Whole Blood 178 mg/dL (75-99)
[2019-10-31] MEDS: INSULIN REGULAR 100 UNIT in SODIUM CHLORIDE 0.9% 100 ML IV SCH (14:10)
--- NOTE | 2019-10-31 14:42 | P.PN ---
Progress Note - Text Progress Note Date: 10/31/19 Interval history: 79-year-old male with PMH of diabetes mellitus on oral hypoglycemics, con pascual presents the ED for altered mentation. Apparently, patient was visited by his nurse who noted an extremely high blood glucose which prompted his hospital visit. Patient is altered and he is unable to provide any meaningful history. Majority of documentation was obtained from chart review and discussion with his son. Apparently, patient has been confused and disoriented which is progressive ly been worsening over the past 2 weeks. His son reports that the patient fell a week ago and did not seek medical attention. Patient lives with his who is suffering from advanced Alzheimer's dementia and is currently in hospice. According to the son, patient drinks 4 L of soda on a daily basis. Son reports that patient is noncompliant with her diabetic diet. In the ED, vital signs showed a T low of 97.5 Fahrenheit, pulse of 102, tachypnea with respiratory rate of 28, BP of 85/49 and 89% on room air. CBC showed leukocytosis of 11 and MCV of 124.1. ABG showed pH of 7, pCO2 19, bica rbonate of 8. CMP showed sodium of 116, potassium of 5.7, chloride of 74, bicarbonate of 8, BUN 33, creatinine 2.18, glucose greater than 1875. Troponin was 0.881 with EKG showing sinus tachycardia. Urinalysis shows 4+ glucose and trace blood. Acetone was negative. CT brain was negative for hemorrhage but showed slightly hyperdense left MCA compared to right. Chest x-ray showed possible right lower lobe infiltrate. Patient is admitted to ICU for sepsis, troponin elevation and diabetic ketoacidosis. Intubated. Patient developed ischemic hepatitis. Sepsis. Also developed bowel obstruction-that corrected on its own. Seen by neurology. Patient's felt to have anoxic brain injury. today-ICU. Patient showing minimal response. On the ventilator. FiO2 40 and PEEP of 5. Drips include insulin and amiodarone. Patient has a fecal management system with liquid stools... Review of systems cannot be done patient intubated Active Medications Amiodarone HCl (Cordarone) 200 mg PO BID [facility] Last Admin: 10/31/19 12:40 Dose: 200 mg Documented by: Aspirin (Aspirin) 81 mg PO DAILY [facility] Last Admin: 10/31/19 09:57 Dose: 81 mg Documented by: Chlorhexidine Gluconate (Peridex) 15 ml MUCOUS MEM BID [facility] Last Admin: 10/31/19 09:57 Dose: 15 ml Documented by: Heparin Sodium (Porcine) (Heparin) 5,000 unit SQ Q8HR [facility] Last Admin: 10/31/19 07:57 Dose: 5,000 unit Documented by: Piperacillin Sod/Tazobactam (Sod 3.375 gm/ Sodium Chloride) 100 mls @ 25 mls/hr IVPB Q8H [facility] Last Admin: 10/31/19 12:39 Dose: 25 mls/hr Documented by: Norepinephrine Bitartrate 32 (mg/ Sodium Chloride) 250 mls @ 14.805 mls/hr IV .[id number] [facility]; Protocol Last Admin: 10/31/19 06:04 Dose: Not Given Documented by: Insulin Human Regular 100 unit (/ Sodium Chloride) 101 mls @ 0 mls/hr IV .Q0M [facility]; Protocol Last Admin: 10/31/19 14:10 Dose: 6 unit/hr, 6.06 mls/hr Documented by: Metronidazole 500 mg/ IV (Solution) 100 mls @ 100 mls/hr IVPB Q8HR [facility] Last Admin: 10/31/19 07:57 Dose: 100 mls/hr Documented by: Sodium Chloride (Saline 0.9%) 500 mls @ 20 mls/hr IV .Q24H [facility] Last Admin: 10/30/19 20:13 Dose: Not Given Documented by: Miscellaneous Information (Pneumonia Protocol Utilized) 1 each PO ONCE PRN PRN Reason: Per Protocol Miscellaneous Information (Magnesium Per Protocol) 1 each MISCELLANE DAILY PRN; Protocol PRN Reason: Per Protocol Miscellaneous Information (Phosphorus Per Protocol) 1 each MISCELLANE DAILY PRN; Protocol PRN Reason: Per Protocol Miscellaneous Information (Potassium Per Protocol) 1 each MISCELLANE DAILY PRN; Protocol PRN Reason: Per Protocol Naloxone HCl (Narcan) 0.2 mg IV Q2M PRN PRN Reason: Opioid Reversal Nitroglycerin (Nitrostat) 0.4 mg SUBLINGUAL Q5M PRN PRN Reason: Chest Pain Pantoprazole Sodium (Protonix) 40 mg IV DAILY [facility] Last Admin: 10/31/19 09:57 Dose: 40 mg Documented by: On examination: VITAL SIGNS: 98.1, 92, 26, 123/57 98% on the ventilator GENERAL APPEARANCE: laying in bed, sedated, intubated. HEENT: Normal external appearance of nose and ear. Oral cavity -endotracheal tube, NG tube to suction EYES: Pupils equal. Conjunctiva normal. NECK: JVD unable to assess. Mass not palpable. RESPIRATORY: Respiratory effort increased. Lungs -decreased breath sounds CARDIOVASCULAR: First and second sounds normal. No edema. ABDOMEN: Soft. Liver and spleen not palpable. No tenderness. No mass palpable. PSYCHIATRY: unable to assess, patient sedated NEUROLOGICAL: No response to pain INVESTIGATIONS, reviewed in the clinical context: White count 14.4 hemoglobin 9.8 potassium 3.3 creatinine 1.14 Previous testing: White count 11 hemoglobin 13.7 platelets 383 Sodium 116, bicarb 8, bun 33, creatinine 2.18 glucose 1875 troponin I 0.88 1 Rusty-19 PCR-not detected computed tomography scan of the brain without contrast-no acute degenerative changes Ultrasound kidney-limited exam 2-D echocardiogram-EF 30-35%, anteroseptal apical hypokinesia AST 3453, ALT 1264, computed tomography scan of the abdomen and pelvis without contrast-dilated multiple loops of small bowel some free fluid in the paracolic gutter bilateral lower lobe pulmonary infiltrates, fusiform 4.4 cm lower abdominal aortic aneurysm with aortoiliac endograft multiple diverticula of the sigmoid colon. Mild wall thickening of the ascending colon. Blood cultures from October 20-negative Abdominal x-ray-October 25--contrast has passed through to thecolon EEG suggestive of encephalopathy, computed tomography scan of the brain-on October 28-chronic changes Assessment: -acute nonketotic hyperosmolar diabetes with severe hyperglycemia, POA -Acute small bowel obstruction, and distal jejunal clinically improved, NG tube suction discontinued.- tube feeding started -Acute hypoxic respiratory failure requiring mechanical ventilator support-slow to respond -Acute metabolic encephalopathy from above-slow to respond -Alzheimer's dementia -Pseudohyponatremia from severe hyperglycemia -4.4 cm distal abdominal aortic aneurysm with the endoluminal stent graft -Peripheral arterial disease -Acute shock liver secondary to hypotensive improving -Chronic congestive heart failure from systolic dysfunction EF 30-35% -Sepsis with septic shock, possible community acquired pneumonia -Metabolic encephalopathy likely due to the above -Non-ST elevation [place] likely type II from demand ischemia, POA -Acute kidney injury likely ATN-some improvement -Possibly chronic kidney disease -essential hypertension -Pneumonia suspect gram-negative organism -New onset atrial fibrillation. -Anoxic brain injury Plan: Patient remains critically ill on the ventilator in the ICU. Drips include insulin, IV Flagyl, IV Zosyn. Also on insulin. Prognosis is not good.
[2019-10-31 15:18] LABS: Glucose,Whole Blood 145 mg/dL (75-99)
--- NOTE | 2019-10-31 15:49 | CONS ---
CONSULTATION Patient is seen for followup for acute kidney injury and hypernatremia. His serum sodium has improved to some degree. Patient is maintained on free water flushes down his feeding tube. He remains off of pressors. Urine output is at 50 to 70 mL/hour. Renal function continues to improve, with serum creatinine down to 1.1 now. The patient has not been following commands. His sedation has been discontinued for more than 3 days. He was evaluated by Neurology, and the EEG showed severe suppression of response. On examination today, patient remains on the vent. Blood pressure was 125/57, heart rate 93 per minute. He is afebrile. EXAMINATION OF THE HEART: S1 and S2. EXAMINATION OF LUNGS: Bilateral breath sounds are heard. ABDOMEN: Soft, non-tender. Examination of lower extremities shows edema 2+ bilaterally. 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 Labs show sodium 146, potassium 3.3, chloride 119. CO2 is 21, BUN 35, creatinine 1.14, hemoglobin of 9.8 g/dL. ASSESSMENT: 1. Acute kidney injury, acute tubular necrosis, nonoliguric, secondary to hypotension, hypoperfusion and sepsis, currently improved. 2. Hypernatremia associated with free water deficit, improving with free water flushes down the feeding tube. 3. Hypokalemia, currently being replaced. 4. Severe metabolic encephalopathy. 5. Acute hypoxic respiratory failure. 6. Sputum culture growing Layne albicans. 7. Atrial fibrillation, status post amiodarone drip. PLAN: Continue free water flushes down the feeding tube. Replace potassium. Overall prognosis is poor. MMODL / IJN: [id number] /
[2019-10-31 16:11] LABS: Glucose,Whole Blood 179 mg/dL (75-99)
--- NOTE | 2019-10-31 16:35 | PN ---
PROGRESS NOTE CARDIOLOGY FOLLOW-UP NOTE: This patient is an 79-year-old gentleman who was admitted to hospital with pneumonia, sepsis, respiratory failure. I have been asked to see him because of atrial fibrillation. The patient was started on intravenous amiodarone and has converted to sinus rhythm. On exam, heart rate is 90 beats per minute. Blood pressure respiratory rate is 18. Chest exam reveals diminished air entry at the bases with occasional rhonchi. Heart exam reveals first and second heart sounds. No gallop. No murmur. Examination of extremities reveals mild edema. Peripheral pulses are felt. Labs show hemoglobin is 9.8, creatinine is 1.1. ASSESSMENT: 1. Paroxysmal atrial fibrillation. 2. Respiratory failure. PLAN: Patient is not a candidate for anticoagulation. I will stop the IV amiodarone and put him on oral amiodarone. MMODL / GRICELN: [id number] /
[2019-10-31 17:08] LABS: Glucose,Whole Blood 164 mg/dL (75-99)
[2019-10-31 18:01] LABS: Glucose,Whole Blood 166 mg/dL (75-99)
--- NOTE | 2019-10-31 18:36 | P.PN ---
Subjective Progress Note Date: 10/31/19 Principal diagnosis: hyperosmolar nonketotic acidosis possible anoxic brain injury Metabolic encephalopathy Subjective: Patient has not had any improvement neurologically according to nursing staff. There is still no spontaneous movements no spontaneous eye opening. He has remained afebrile now for 24 hours. No acute hemodynamic changes reported overnight. Objective - Vital Signs Vital signs: Vital Signs Temp 98.6 F 10/31/19 16:00 Pulse 96 10/31/19 18:00 Resp 20 10/31/19 18:00 BP 122/61 10/31/19 18:00 Pulse Ox 97 10/31/19 18:00 Intake & Output 10/30/19 10/31/19 10/31/19 18:59 06:59 18:59 Intake Total 2663.725 3037.237 2609.639 Output Total 2170 1850 1055 Balance 244.883 1808.237 1554.639 Weight 87.4 kg 87.4 kg Intake: IV 269 256 243 .9 Sodium Chloride @ 10ml 130 120 110 /hr Piperacillin-Tazobactam 3 100 100 100 .375 gm In Sodium Chloride 0.9% 100 ml @ 25 mls/hr IVPB Q8H [facility] Rx#: [id number] Pressure Bag 39 36 33 Intake, IV Titration 414.725 431.237 286.639 Amount Amiodarone 300 mg In 250 250 Dextrose 5% in Water 250 ml @ 0.5 MG/MIN 25 mls/hr IV .Q10H [facility] Rx#: [id number] Insulin Regular 100 unit 64.725 81.237 36.639 In Sodium Chloride 0.9% 100 ml @ Per Protocol IV .Q0M [facility] Rx#:[id number] metroNIDAZOLE-NS PMX 500 100 100 250 mg In Saline 1 100ml.bag @ 100 mls/hr IVPB Q8HR [facility] Rx#:[id number] Tube Feeding 980 1050 980 Other 1000 1300 1100 Output: Urine 2170 850 1055 Stool 1000 Other: Voiding Method Indwelling Catheter Indwelling Catheter Indwelling Catheter # Voids 1 1 ABP, PAP, CO, CI - Last Documented Arterial Blood Pressure 125/46 - Exam Neurological exam Pupils: Remain asymmetric 3 mm on the right 2 mm on the left symmetric. Nonreactive fixed. Gag is decreased with suctioning. Some symmetric shoulder movements are noted but no strong gag reflex present. Corneal blink reflexes are intact bilaterally. Motor response to tactile stimulation none. No response to plantar stimulation. Glascow coma scale 3 Review of pertinent labs: Blood culture now negative for 72 hours EEG performed on October 29 shows generalized slowing with some periods of cortical arousals versus questionable alpha coma October 28 brain computed tomography scan of the head noncontrast shows no acute intercranial pathology - Labs CBC & Chem 7: 10/31/19 04:24 10/31/19 04:24 Labs: Abnormal Lab Results - Last 24 Hours (Table) 10/30/19 10/30/19 10/30/19 Range/Units 18:58 20:09 21:06 WBC (3.8-10.6) k/uL RBC (4.30-5.90) m/uL Hgb (13.0-17.5) gm/dL Hct (39.0-53.0) % MCV (80.0-100.0) fL Plt Count (150-450) k/uL Neutrophils # (Manual) (1.3-7.7) k/uL Lymphocytes # (Manual) (1.0-4.8) k/uL ABG pCO2 (35-45) mmHg ABG HCO3 (21-25) mmol/L ABG O2 Saturation (94-97) % Sodium (137-145) mmol/L Potassium (3.5-5.1) mmol/L Chloride (98-107) mmol/L Carbon Dioxide (22-30) mmol/L BUN (9-20) mg/dL Glucose (74-99) mg/dL POC Glucose (mg/dL) 190 H 201 H 185 H (75-99) mg/dL Calcium (8.4-10.2) mg/dL 10/30/19 10/30/19 10/31/19 Range/Units 21:57 22:59 00:06 WBC (3.8-10.6) k/uL RBC (4.30-5.90) m/uL Hgb (13.0-17.5) gm/dL Hct (39.0-53.0) % MCV (80.0-100.0) fL Plt Count (150-450) k/uL Neutrophils # (Manual) (1.3-7.7) k/uL Lymphocytes # (Manual) (1.0-4.8) k/uL ABG pCO2 (35-45) mmHg ABG HCO3 (21-25) mmol/L ABG O2 Saturation (94-97) % Sodium (137-145) mmol/L Potassium (3.5-5.1) mmol/L Chloride (98-107) mmol/L Carbon Dioxide (22-30) mmol/L BUN (9-20) mg/dL Glucose (74-99) mg/dL POC Glucose (mg/dL) 139 H 144 H 148 H (75-99) mg/dL Calcium (8.4-10.2) mg/dL 10/31/19 10/31/19 10/31/19 Range/Units 01:20 02:08 03:04 WBC (3.8-10.6) k/uL RBC (4.30-5.90) m/uL Hgb (13.0-17.5) gm/dL Hct (39.0-53.0) % MCV (80.0-100.0) fL Plt Count (150-450) k/uL Neutrophils # (Manual) (1.3-7.7) k/uL Lymphocytes # (Manual) (1.0-4.8) k/uL ABG pCO2 (35-45) mmHg ABG HCO3 (21-25) mmol/L ABG O2 Saturation (94-97) % Sodium (137-145) mmol/L Potassium (3.5-5.1) mmol/L Chloride (98-107) mmol/L Carbon Dioxide (22-30) mmol/L BUN (9-20) mg/dL Glucose (74-99) mg/dL POC Glucose (mg/dL) 145 H 155 H 155 H (75-99) mg/dL Calcium (8.4-10.2) mg/dL 10/31/19 10/31/19 10/31/19 Range/Units 03:55 04:24 04:24 WBC 14.4 H (3.8-10.6) k/uL RBC 2.98 L (4.30-5.90) m/uL Hgb 9.8 L (13.0-17.5) gm/dL Hct 30.8 L (39.0-53.0) % MCV 103.5 H (80.0-100.0) fL Plt Count 467 H (150-450) k/uL Neutrophils # (Manual) 12.80 H (1.3-7.7) k/uL Lymphocytes # (Manual) 0.72 L (1.0-4.8) k/uL ABG pCO2 (35-45) mmHg ABG HCO3 (21-25) mmol/L ABG O2 Saturation (94-97) % Sodium 146 H (137-145) mmol/L Potassium 3.3 L (3.5-5.1) mmol/L Chloride 119 H (98-107) mmol/L Carbon Dioxide 21 L (22-30) mmol/L BUN 35 H (9-20) mg/dL Glucose 165 H (74-99) mg/dL POC Glucose (mg/dL) 149 H (75-99) mg/dL Calcium 7.3 L (8.4-10.2) mg/dL 10/31/19 10/31/19 10/31/19 Range/Units 04:57 06:10 06:55 WBC (3.8-10.6) k/uL RBC (4.30-5.90) m/uL Hgb (13.0-17.5) gm/dL Hct (39.0-53.0) % MCV (80.0-100.0) fL Plt Count (150-450) k/uL Neutrophils # (Manual) (1.3-7.7) k/uL Lymphocytes # (Manual) (1.0-4.8) k/uL ABG pCO2 (35-45) mmHg ABG HCO3 (21-25) mmol/L ABG O2 Saturation (94-97) % Sodium (137-145) mmol/L Potassium (3.5-5.1) mmol/L Chloride (98-107) mmol/L Carbon Dioxide (22-30) mmol/L BUN (9-20) mg/dL Glucose (74-99) mg/dL POC Glucose (mg/dL) 167 H 130 H 126 H (75-99) mg/dL Calcium (8.4-10.2) mg/dL 10/31/19 10/31/19 10/31/19 Range/Units 07:39 08:54 10:06 WBC (3.8-10.6) k/uL RBC (4.30-5.90) m/uL Hgb (13.0-17.5) gm/dL Hct (39.0-53.0) % MCV (80.0-100.0) fL Plt Count (150-450) k/uL Neutrophils # (Manual) (1.3-7.7) k/uL Lymphocytes # (Manual) (1.0-4.8) k/uL ABG pCO2 29 L (35-45) mmHg ABG HCO3 20 L (21-25) mmol/L ABG O2 Saturation 98.8 H (94-97) % Sodium (137-145) mmol/L Potassium (3.5-5.1) mmol/L Chloride (98-107) mmol/L Carbon Dioxide (22-30) mmol/L BUN (9-20) mg/dL Glucose (74-99) mg/dL POC Glucose (mg/dL) 183 H 223 H (75-99) mg/dL Calcium (8.4-10.2) mg/dL 10/31/19 10/31/19 10/31/19 Range/Units 11:05 11:59 13:01 WBC (3.8-10.6) k/uL RBC (4.30-5.90) m/uL Hgb (13.0-17.5) gm/dL Hct (39.0-53.0) % MCV (80.0-100.0) fL Plt Count (150-450) k/uL Neutrophils # (Manual) (1.3-7.7) k/uL Lymphocytes # (Manual) (1.0-4.8) k/uL ABG pCO2 (35-45) mmHg ABG HCO3 (21-25) mmol/L ABG O2 Saturation (94-97) % Sodium (137-145) mmol/L Potassium (3.5-5.1) mmol/L Chloride (98-107) mmol/L Carbon Dioxide (22-30) mmol/L BUN (9-20) mg/dL Glucose (74-99) mg/dL POC Glucose (mg/dL) 203 H 212 H 199 H (75-99) mg/dL Calcium (8.4-10.2) mg/dL 10/31/19 10/31/19 10/31/19 Range/Units 14:02 15:16 16:11 WBC (3.8-10.6) k/uL RBC (4.30-5.90) m/uL Hgb (13.0-17.5) gm/dL Hct (39.0-53.0) % MCV (80.0-100.0) fL Plt Count (150-450) k/uL Neutrophils # (Manual) (1.3-7.7) k/uL Lymphocytes # (Manual) (1.0-4.8) k/uL ABG pCO2 (35-45) mmHg ABG HCO3 (21-25) mmol/L ABG O2 Saturation (94-97) % Sodium (137-145) mmol/L Potassium (3.5-5.1) mmol/L Chloride (98-107) mmol/L Carbon Dioxide (22-30) mmol/L BUN (9-20) mg/dL Glucose (74-99) mg/dL POC Glucose (mg/dL) 178 H 145 H 179 H (75-99) mg/dL Calcium (8.4-10.2) mg/dL 10/31/19 10/31/19 Range/Units 17:07 17:59 WBC (3.8-10.6) k/uL RBC (4.30-5.90) m/uL Hgb (13.0-17.5) gm/dL Hct (39.0-53.0) % MCV (80.0-100.0) fL Plt Count (150-450) k/uL Neutrophils # (Manual) (1.3-7.7) k/uL Lymphocytes # (Manual) (1.0-4.8) k/uL ABG pCO2 (35-45) mmHg ABG HCO3 (21-25) mmol/L ABG O2 Saturation (94-97) % Sodium (137-145) mmol/L Potassium (3.5-5.1) mmol/L Chloride (98-107) mmol/L Carbon Dioxide (22-30) mmol/L BUN (9-20) mg/dL Glucose (74-99) mg/dL POC Glucose (mg/dL) 164 H 166 H (75-99) mg/dL Calcium (8.4-10.2) mg/dL Microbiology - Last 24 Hours (Table) 10/28/19 14:00 Blood Culture - Preliminary Blood No Growth after 72 hours Assessment and Plan Assessment: This is a 79-year-old gentleman poorly controlled diabetic admitted in acute nonketotic hyperosmolar diabetes with severe hyperglycemia POA. The patient suffered acute hypoxic respiratory failure requiring intubation and now not responding off sedation. His course was complicated with sepsis and septic shock along with kidney failure and ischemic hepatitis. Now the patient has been found to have lizabeth growth in sputum. His neurological exam is unchanged. His Glascow's coma scale remained 0. There is minimum gag reflex with suctioning however corneal blink reflexes are intact. I would recommend we have family meeting to discuss long-term management and care. Overall this patient's prognosis remains very poor in light of all his co-morbidities. Plan: 1. Continue with supportive care and neuro checks every 2 hours while awake. 2. Consider a MRI of the brain without contrast to better assess the degree of anoxic brain injury most likely that is occurred. 3. Plan for family meeting to discuss long-term prognosis. 4. Avoid all narcotics and sedatives such as Diludid, benzos This patient's prognosis remains very poor due to the extensive comorbidities this patient had before the event. Neurology will continue to follow on a daily basis providing recommendations as this case evolves. Thank you for allowing me to participate in the care of your patient. Please note that there will not be neurology instrumentation fitter officially this weekend but if there are any questions please fill free to contact me at [phone] Thank you for this consultation. Neurology will follow closely throughout this admission. Further recommendations will be made as this case evolves. Shilpa Jose M.D. Board Certified in Neurology and Sleep Medicine
[2019-10-31 19:07] LABS: Glucose,Whole Blood 132 mg/dL (75-99)
[2019-10-31] MEDS ORDERED: Potassium Replacement Protocol 1 EACH MISC MISCELLANE PRN (19:36)
[2019-10-31] MEDS ORDERED: POTASSIUM BICARBONATE/CIT AC 20 MEQ TABLET.EFF NG-TUBE SCH (20:00)
[2019-10-31 20:12] LABS: Glucose,Whole Blood 164 mg/dL (75-99)
[2019-10-31 22:04] LABS: Glucose,Whole Blood 204 mg/dL (75-99)
[2019-10-31 23:13] LABS: Glucose,Whole Blood 192 mg/dL (75-99)
[2019-11-01] MEDS ORDERED: POTASSIUM BICARBONATE/CIT AC 20 MEQ TABLET.EFF NG-TUBE SCH
[2019-11-01 00:29] LABS: Glucose,Whole Blood 165 mg/dL (75-99)
[2019-11-01] MEDS: NOREPINEPHRINE 32 MG in SODIUM CHLORIDE 0.9% 218 ML IV SCH ×2 (00:44→14:09)
[2019-11-01] MEDS: metroNIDAZOLE-NS PMX 500 MG in SALINE 1 100ML.BAG IVPB SCH ×3 (00:49→15:38)
[2019-11-01] MEDS: HYDROmorphone 0.5 MG/0.5 ML SYRINGE IVP PRN ×3 (00:49→22:30)
[2019-11-01] MEDS: HEPARIN SODIUM,PORCINE 5,000 UNIT/ML 1 ML VIAL SQ SCH ×3 (00:50→15:38)
[2019-11-01 01:22] LABS: Glucose,Whole Blood 178 mg/dL (75-99)
[2019-11-01 02:49] LABS: Glucose,Whole Blood 183 mg/dL (75-99)
[2019-11-01 04:07] LABS: Glucose,Whole Blood 175 mg/dL (75-99)
[2019-11-01] MEDS: PIPERACILLIN-TAZOBACTAM 3.375 GM in SODIUM CHLORIDE 0.9% 100 ML IVPB SCH ×3 (04:17→20:27)
[2019-11-01 04:33] LABS: Magnesium 1.7 mg/dL (1.6-2.3); Phosphorus 3.2 mg/dL (2.5-4.5)
[2019-11-01 05:15] LABS: Glucose,Whole Blood 164 mg/dL (75-99)
[2019-11-01 06:14] LABS: Basophils % (A) 0 %; Eosinophils # (A) 0.2 k/uL (0-0.7); Eosinophils % (A) 1 %; HCT 30.5 % (39.0-53.0); HGB 9.5 gm/dL (13.0-17.5); Hypochromasia Moderate; Lymphocytes # (A) 0.9 k/uL (1.0-4.8); Lymphocytes % (A) 8 %; MCH 32.7 pg (25.0-35.0); MCV 105.5 fL (80.0-100.0); Macrocytosis Moderate; Mean Platelet Volume 9.8; Monocytes # (A) 0.3 k/uL (0-1.0); Monocytes % (A) 3 %; Neutrophils # (A) 9.9 k/uL (1.3-7.7); Neutrophils % (A) 86 %; Platelet Count 622 k/uL (150-450); RBC 2.89 m/uL (4.30-5.90); RDW 14.5 % (11.5-15.5); WBC 11.4 k/uL (3.8-10.6)
[2019-11-01 06:18] LABS: Calcium 7.4 mg/dL (8.4-10.2)
[2019-11-01 06:19] LABS: Glucose,Whole Blood 165 mg/dL (75-99)
[2019-11-01 07:09] LABS: Glucose,Whole Blood 137 mg/dL (75-99)
[2019-11-01 07:49] LABS: ABG Base Excess -4.1 mmol/L; ABG HCO3 20 mmol/L (21-25); ABG Oxygen Saturation 97.4 % (94-97); ABG PCO2 29 mmHg (35-45); ABG PH 7.44 (7.35-7.45); ABG PO2 90 mmHg (83-108); ABG TCO2 21 mmol/L (19-24)
[2019-11-01] MEDS: SODIUM CHLORIDE 0.9% 500 ML 500 ML IV SCH ×2 (09:30→11:40)
[2019-11-01] MEDS: MAGNESIUM SULFATE-D5W PMX 1 GM in DEXTROSE/WATER 1 100ML.BAG IVPB SCH ×2 (09:47→11:38)
[2019-11-01] MEDS: ASPIRIN 81 MG PO SCH (09:47)
[2019-11-01] MEDS: CHLORHEXIDINE GLUCONATE 15 ML CUP MUCOUS MEM SCH ×2 (09:47→20:27)
[2019-11-01] MEDS: PANTOPRAZOLE 40 MG/10 ML VIAL IV SCH (09:47)
[2019-11-01] MEDS: AMIODARONE 200 MG TAB PO SCH ×2 (09:47→20:27)
[2019-11-01 09:57] LABS: Glucose,Whole Blood 226 mg/dL (75-99)
--- NOTE | 2019-11-01 10:33 | P.PN ---
Subjective Patient is seen in follow-up for acute kidney injury. Remains intubated on 40% FiO2. Renal function is stable. Sodium level CXLIV. He is receiving tube feeding. Vital signs are stable. General: The patient appeared well nourished and normally developed. HEENT: Head exam is unremarkable. Neck is without jugular venous distension. Intubated. LUNGS: Breath sounds decreased. HEART: Rate and Rhythm are regular. ABDOMEN: Soft, no distention noted. EXTREMITITES: No edema. Objective - Vital Signs Vital signs: Vital Signs Temp 98.1 F 11/01/19 04:00 Pulse 98 11/01/19 07:00 Resp 32 H 11/01/19 07:00 BP 121/65 10/31/19 23:00 Pulse Ox 100 11/01/19 07:00 Intake & Output 10/31/19 11/01/19 11/01/19 18:59 06:59 18:59 Intake Total 2633.290 2460.635 142.003 Output Total 1055 935 75 Balance 5159.287 7720.635 67.003 Weight 87.4 kg Intake: IV 243 291 38 .9 Sodium Chloride @ 10ml 110 80 10 /hr Piperacillin-Tazobactam 3 100 175 25 .375 gm In Sodium Chloride 0.9% 100 ml @ 25 mls/hr IVPB Q8H INDU Rx#: [id number] Pressure Bag 33 36 3 Intake, IV Titration 310.290 129.635 34.003 Amount Insulin Regular 100 unit 60.290 29.635 34.003 In Sodium Chloride 0.9% 100 ml @ Per Protocol IV .Q0M INDU Rx#:[id number] metroNIDAZOLE-NS PMX 500 250 100 mg In Saline 1 100ml.bag @ 100 mls/hr IVPB Q8HR INDU Rx#:[id number] Tube Feeding 980 840 70 Other 1100 1200 Output: Urine 1055 935 75 Other: Voiding Method Indwelling Catheter Indwelling Catheter # Voids 1 ABP, PAP, CO, CI - Last Documented Arterial Blood Pressure 150/55 - Labs CBC & Chem 7: 11/01/19 04:10 11/01/19 04:10 Labs: Abnormal Lab Results - Last 24 Hours (Table) 10/31/19 10/31/19 10/31/19 Range/Units 11:05 11:59 13:01 WBC (3.8-10.6) k/uL RBC (4.30-5.90) m/uL Hgb (13.0-17.5) gm/dL Hct (39.0-53.0) % MCV (80.0-100.0) fL Plt Count (150-450) k/uL Neutrophils # (1.3-7.7) k/uL Lymphocytes # (1.0-4.8) k/uL ABG pCO2 (35-45) mmHg ABG HCO3 (21-25) mmol/L ABG O2 Saturation (94-97) % Chloride (98-107) mmol/L Carbon Dioxide (22-30) mmol/L BUN (9-20) mg/dL Glucose (74-99) mg/dL POC Glucose (mg/dL) 203 H 212 H 199 H (75-99) mg/dL Calcium (8.4-10.2) mg/dL 10/31/19 10/31/19 10/31/19 Range/Units 14:02 15:16 16:11 WBC (3.8-10.6) k/uL RBC (4.30-5.90) m/uL Hgb (13.0-17.5) gm/dL Hct (39.0-53.0) % MCV (80.0-100.0) fL Plt Count (150-450) k/uL Neutrophils # (1.3-7.7) k/uL Lymphocytes # (1.0-4.8) k/uL ABG pCO2 (35-45) mmHg ABG HCO3 (21-25) mmol/L ABG O2 Saturation (94-97) % Chloride (98-107) mmol/L Carbon Dioxide (22-30) mmol/L BUN (9-20) mg/dL Glucose (74-99) mg/dL POC Glucose (mg/dL) 178 H 145 H 179 H (75-99) mg/dL Calcium (8.4-10.2) mg/dL 10/31/19 10/31/19 10/31/19 Range/Units 17:07 17:59 19:06 WBC (3.8-10.6) k/uL RBC (4.30-5.90) m/uL Hgb (13.0-17.5) gm/dL Hct (39.0-53.0) % MCV (80.0-100.0) fL Plt Count (150-450) k/uL Neutrophils # (1.3-7.7) k/uL Lymphocytes # (1.0-4.8) k/uL ABG pCO2 (35-45) mmHg ABG HCO3 (21-25) mmol/L ABG O2 Saturation (94-97) % Chloride (98-107) mmol/L Carbon Dioxide (22-30) mmol/L BUN (9-20) mg/dL Glucose (74-99) mg/dL POC Glucose (mg/dL) 164 H 166 H 132 H (75-99) mg/dL Calcium (8.4-10.2) mg/dL 10/31/19 10/31/19 10/31/19 Range/Units 20:11 22:02 23:11 WBC (3.8-10.6) k/uL RBC (4.30-5.90) m/uL Hgb (13.0-17.5) gm/dL Hct (39.0-53.0) % MCV (80.0-100.0) fL Plt Count (150-450) k/uL Neutrophils # (1.3-7.7) k/uL Lymphocytes # (1.0-4.8) k/uL ABG pCO2 (35-45) mmHg ABG HCO3 (21-25) mmol/L ABG O2 Saturation (94-97) % Chloride (98-107) mmol/L Carbon Dioxide (22-30) mmol/L BUN (9-20) mg/dL Glucose (74-99) mg/dL POC Glucose (mg/dL) 164 H 204 H 192 H (75-99) mg/dL Calcium (8.4-10.2) mg/dL 11/01/19 11/01/19 11/01/19 Range/Units 00:27 01:21 02:47 WBC (3.8-10.6) k/uL RBC (4.30-5.90) m/uL Hgb (13.0-17.5) gm/dL Hct (39.0-53.0) % MCV (80.0-100.0) fL Plt Count (150-450) k/uL Neutrophils # (1.3-7.7) k/uL Lymphocytes # (1.0-4.8) k/uL ABG pCO2 (35-45) mmHg ABG HCO3 (21-25) mmol/L ABG O2 Saturation (94-97) % Chloride (98-107) mmol/L Carbon Dioxide (22-30) mmol/L BUN (9-20) mg/dL Glucose (74-99) mg/dL POC Glucose (mg/dL) 165 H 178 H 183 H (75-99) mg/dL Calcium (8.4-10.2) mg/dL 11/01/19 11/01/19 11/01/19 Range/Units 04:04 04:10 04:10 WBC 11.4 H (3.8-10.6) k/uL RBC 2.89 L (4.30-5.90) m/uL Hgb 9.5 L (13.0-17.5) gm/dL Hct 30.5 L (39.0-53.0) % MCV 105.5 H (80.0-100.0) fL Plt Count 622 H (150-450) k/uL Neutrophils # 9.9 H (1.3-7.7) k/uL Lymphocytes # 0.9 L (1.0-4.8) k/uL ABG pCO2 (35-45) mmHg ABG HCO3 (21-25) mmol/L ABG O2 Saturation (94-97) % Chloride 118 H (98-107) mmol/L Carbon Dioxide 20 L (22-30) mmol/L BUN 35 H (9-20) mg/dL Glucose 175 H (74-99) mg/dL POC Glucose (mg/dL) 175 H (75-99) mg/dL Calcium 7.4 L (8.4-10.2) mg/dL 11/01/19 11/01/19 11/01/19 Range/Units 05:13 06:18 07:08 WBC (3.8-10.6) k/uL RBC (4.30-5.90) m/uL Hgb (13.0-17.5) gm/dL Hct (39.0-53.0) % MCV (80.0-100.0) fL Plt Count (150-450) k/uL Neutrophils # (1.3-7.7) k/uL Lymphocytes # (1.0-4.8) k/uL ABG pCO2 (35-45) mmHg ABG HCO3 (21-25) mmol/L ABG O2 Saturation (94-97) % Chloride (98-107) mmol/L Carbon Dioxide (22-30) mmol/L BUN (9-20) mg/dL Glucose (74-99) mg/dL POC Glucose (mg/dL) 164 H 165 H 137 H (75-99) mg/dL Calcium (8.4-10.2) mg/dL 11/01/19 11/01/19 Range/Units 07:45 09:55 WBC (3.8-10.6) k/uL RBC (4.30-5.90) m/uL Hgb (13.0-17.5) gm/dL Hct (39.0-53.0) % MCV (80.0-100.0) fL Plt Count (150-450) k/uL Neutrophils # (1.3-7.7) k/uL Lymphocytes # (1.0-4.8) k/uL ABG pCO2 29 L (35-45) mmHg ABG HCO3 20 L (21-25) mmol/L ABG O2 Saturation 97.4 H (94-97) % Chloride (98-107) mmol/L Carbon Dioxide (22-30) mmol/L BUN (9-20) mg/dL Glucose (74-99) mg/dL POC Glucose (mg/dL) 226 H (75-99) mg/dL Calcium (8.4-10.2) mg/dL Microbiology - Last 24 Hours (Table) 10/28/19 14:00 Blood Culture - Preliminary Blood No Growth after 72 hours Assessment and Plan Plan: Assessment: 1. Acute kidney injury secondary to ATN secondary to severe intravascular volume depletion due to hyperglycemia and further worsened with hypotension. Creatinine peaked at 2.7 this admission and is 1.13 today. 2. Rule out chronic kidney disease. Creatinine was in the range of 1.2-1.5 in July 2018. No proteinuria on UA. 3. Severe metabolic acidosis secondary to DKA. Improved. 4. DKA s/p insulin drip. 5. Hypernatremia secondary to lack of oral water intake. Better. 6. Possible pneumonia maintained on antibiotics. 7. Anoxic brain injury. Plan: Maintain free water flushes. Currently receiving 100 mL per hour. Repeat sodium level at 5 PM today. Overall prognosis poor.
[2019-11-01 11:23] LABS: Glucose,Whole Blood 256 mg/dL (75-99)
[2019-11-01 12:10] LABS: Glucose,Whole Blood 269 mg/dL (75-99)
[2019-11-01] MEDS: INSULIN REGULAR 100 UNIT in SODIUM CHLORIDE 0.9% 100 ML IV SCH (12:10)
--- NOTE | 2019-11-01 13:36 | P.PN ---
Subjective Progress Note Date: 11/01/19 Principal diagnosis: Hypovolemic shock, possible septic shock secondary to abdominal sepsis. 80-year-old male patient known history of dementia, diabetes hypertension osteoarthritis in addition to abdominal aortic aneurysm, presented to the ED with altered mentation and severe dehydration. The patient's was noted to have elevated blood sugars at home which prompted this hospital visit. He was unable to provide any history at time of admission. He was confused and disoriented and his condition was progressively getting worse over this past few weeks. He apparently had generalized weakness, falls, and he was not seeking any medical attention. He has Alzheimer's dementia. His has Alzheimer's dementia also. Apparently his oral intake has been minimal and the patient was drinking only 4 L of soda on a daily basis. He has been noncompliant his diabetic medications also. A blood sugar of more than 1800. Sodium was 116. Potassium was 5.7 with a chloride of 74 and a serum bicarbonate 8 with an anion gap of 34. Creatinine was 2.4 with a BUN of 33. The serum lactate was 11.7. Troponin was 0.8. Phosphorus was 8.8. Lipase was 229. UA showed +4 glucose and the serum acetone was negative. The patient received a total of 4 L of IV fluids in the emergency department. He was started on an insulin drip. Currently the patient is on half-normal saline with 20 mEq of potassium. The patient metabolic acidosis improving. Based on the follow-up blood gases the pH was 7.0 and septal 7.13. Serum bicarb is also on the rise. The serum pCO2 is 26. Troponin 38. This was done and FiO2 of 36%. Sodium level improved and septal 131 and a potassium level is at 3.8. Anion gap is improving is down to 28. Creatinine is still at 2.1. Most recent blood sugar shows that the sugar is still elevated above 600 with a serum measurement of 1230. The chest x-ray shows some subsegmental atelectasis in the right lower lobe. CAT scan of the brain shows no evidence of any acute hemorrhage. There is some degenerative changes and nonspecific white matter changes consistent with remote ischemia. EKG showing sinus tachycardia along with Q waves over the anteroseptal leads consistent with an old infarct. Heart rate is around 102. On today's evaluation of 10/22/2019, the patient is still lethargic and somnolent and encephalopathic. He is unable to volunteer any history. He has dementia. Furthermore there has been significant metabolic disturbances, leading to his impaired mentation. In terms of his blood sugar control, the patient has been on insulin drip at 3 units an hour. His IV fluids have been running in the form of D5 half-normal saline along with 20 mEq of potassium at the rate of 150 mL an hour. The patient was receiving another 2 L of IV fluid bolus based on the fact that it looks quite dry with very dry mucosal membranes on today's evaluation. In terms of his blood sugar control, the blood sugar was steadily going down and after the blood sugar went down below 300 was switched him to a D5 half-normal saline solution. His anion gap is at 10. The serum bicarb is at 18. His lactic acid level has dropped down to 6.0. His troponin peaked at 2.2. Denies having any chest pain. Note that his based on troponin was at 0.8. His EKG showed old Q-wave changes over the anteroseptal leads and echocardiac Tito was done today and the patient was found to have a ejection fraction estimated to be around 30-35% along with anteroseptal and apical hypokinesis. No evidence of an aortic valve stenosis. Unable to estimate the right-sided pressures. Unable to have a good visualization of the rest of the valves. His white cell count of 15.4. His antibiotic coverage includes a combination of Rocephin and Zithromax and Diflucan for now. There is some erythema along the penile tip and the Maradiaga catheter is in place. Repeat chest x-ray from today shows atelectatic changes in the right lower lobe. No other significant abnormalities have been noted. The patient is currently on 4 L of oxygen by nasal cannula with a pulse ox of 98%. He still has some underlying sinus tachycardia. On today's evaluation of 10/23/2019 the patient's condition decompensated. I have already contacted the son and updated them on his father's condition. Note that by yesterday afternoon, the patient became progressively more restless, agitated, shortness of breath, and he was also indicating the possibility of abdominal distention and pain. He was hard to communicate with him as the patient was not providing any meaningful information and he was altered mentally. Nevertheless, we suspected that the patient was having increased abdominal pain and discomfort. At that point, decided to insert an NG tube and immediately approximately a liter of gastric juice was obtained as a return. Abdomen remained quite tender and distended. At that point, the patient was also becoming more hypotensive. He was given more IV fluids. He was intubated and placed on a mechanical ventilator. Post intubation, the patient became hypotensive and he was started on IV pressors. Blood gases was noted. Chest x- ray was noted. The patient was developing a right lower lobe pulmonary infiltration. He was taken down for a CAT scan of the abdomen and pelvis and the CAT scan showed evidence of a infiltrate in the right lung base and fatty i nfiltration of the liver and some multiple calcified gallstones and the bile ducts were not dilated. At the same time, the CAT scan showed a fusiform 4.4 cm lower abdominal aortic aneurysm. There was no evidence of any retroperitoneal lymphadenopathy. There was multiple diverticula in the sigmoid colon and multiple dilated air fluid filled loops of the small bowel and the small bowel was dilated up to 4 cm in size. There was also mild wall thickening of the ascending colon. There was also minimal fat stranding around the sigmoid colon. There was osteoarthritis of the right hip. Antibiotics were modified and the patient was started on IV Zosyn. This morning, the patient is sedated with propofol at 20 g. This is to be switched to Versed at the patient's triglyceride level came up above 500. The patient is receiving IV fluids in the form of normal saline at rate of 100 mL an hour. His urine output is diminished and the patient's creatinine is at 2.5. The neck fluid balance over the past 24 hours has been +5.3 L. The patient is currently on norepinephrine infusion running at 0.4 mcg/kg per minute. The patient is also on insulin drip at 9 units an hour. Noted the blood sugar control is improved and the patient's lactic acid level was also improving it was down to 3.7. During the course of this treatment, the patient developed also a shock liver with elevated AST and ALT. He developed an acute kidney injury on top of his chronic kidney failure with a creatinine maxing at 2.7 down to 2.5. The patient is currently on a mechanical ventilator on assist control mode at the rate of 28 with tidal volume of 500 and FiO2 of 60% with a PEEP of 5. Morning blood gases showed a pH of 7.39 with a pCO2 of 26 and pO2 of 185. Morning chest x-ray showed right lower lobe pulmonary infiltration and subsequently a triple-lumen catheter was inserted and the supportive living catheter was inserted without any complications. Surgical consultation was also obtained regarding the abdominal findings. On 10/24/2019, the patient remains critically ill. The patient remains in shock and this is most likely a septic shock following an acute hypovolemic shock. The patient initially presented with HHS. Subsequently the patient started acting septic and the source is most likely the abdomen. The patient had a elevated TROPONIN level. Lactic acid levels were elevated and the patient had abdominal pain and distention. NG tube was inserted and a CAT scan of the abdomen was done that showed findings suggesting small bowel obstruction and some inflammatory changes involving the ascending colon and the sigmoid. Nevertheless, there was no evidence of any acute abdomen or pneumoperitoneum with ischemic bowel. The patient was kept on Zosyn and Flagyl was added. He did have difficulties with his hemodynamics and the patient was on and off becoming hypotensive and he was getting IV fluids to maintain a CVP above 10. The patient is currently receiving normal saline at the rate of 100 mL an hour. He is also on vasopressin at physiologic dose of 0.03 units per minute and the patient is on norepinephrine running at 0.38 g per KG per minute. Abdomen is still slightly distended and the patient is a bit tender and he can grimace upon abdominal [id number] white him being sedated with Versed which is running at 6 mg an hour. Gen. surgery will be asked to evaluate this patient. NG tube is in place and output over the past 24 hours has been in the order of 400 mL of gastric material. No bowel movements yet. He is having episodes of fever and the patient has had a temperature max of 11.1 and a temperature is down to 99.8. The patient had 2 additional sets of blood cultures sent patient was given a dose of vancomycin yesterday. This was done pending further cultures. Meanwhile, the patient remains on a mechanical ventilator. This morning, he remained on assist control mode with a tidal volume of 500 and FiO2 of 40% with a PEEP of 5. Chest x-ray is showing stable bilateral pulmonary infiltrates and atelectatic changes in lung bases. ET tube in good location so in the OG-tube. Her blood gases showed a pH of 7.39 with a pCO2 of 25 and pO2 of 67 and this was on above-mentioned ventilator setting. Lactic acid level is gradually dropped down to 3.0. The patient has shock liver. LFTs are considerably abnormal and the numbers are improving. AST is down to 2153 and ALT is down to 1107. As stated, neck yesterday dropped down to 3.2, the creatinine is still elevated at 2.2 with a BUN of 39 and the patient has a mild anion gap metabolic acidosis with a gap of 11 which is improved and his serum bicarbonate of 15. On today's evaluation of 10/25/2019, the patient remains critically ill. Remains intubated on a mechanical ventilator and remains sedated. On today's evaluation, he had an assist-control mode of ventilation and the patient is at the rate of 28 with a tidal volume of 500 and FiO2 of 50% with a PEEP of 5. The blood gases Show a pH of 7.51 with a pCO2 of 28 and pO2 of 65 and I think this is a essentially respiratory alkalosis as the patient's metabolic acidosis has recovered and the patient's serum bicarbonate was up to 22 while being given a bicarb infusion. The chest x-ray from today shows no significant interval change compared to yesterday's chest x-ray. There is a elevation of the right hemidiaphragm. The ET tube and NG tube remains in place. There is a left subclavian triple-lumen catheter in place. In my opinion, the patient remains quite septic. The patient is still having episodes of fever. The patient remains in shock and pressor dependent. Vasopressin is running at physiologic dose and the norepinephrine infusion has been drop down to 0.3 g per KG per minute. I had a discussion with the general surgeon and will going to continue the conservative approach. Patient is considered to be a high surgical risk for even exploration. Meanwhile, NG tube is in place and has drained approximately 900 mL of gastric material over the past 24 hours. Abdomen is slightly improved and less distended compared to yesterday. There is some mild direct tenderness without rebound tenderness. The patient is hypoactive in terms of his bowel sounds. Extremities abdomen is being done for a small bowel follow-through. The patient remains on insulin which is running at 2.5 units an hour for blood sugar control. The patient is on bicarb drip that he'll be taken off and this will decision to half-normal saline as the patient has also developed some hypernatremia. Serum bicarb is up to 21. He is having episodes of fever still. All of the repeat blood cultures came back negative. Hemoglobin is at 12.5. White cell count is at 10.7. Platelet count has dropped down to 94% is stable compared to yesterday. On 10/26/2019, the patient is currently being seen for a follow-up intubated on a mechanical ventilator in the intensive care unit. The patient remains sedated with Versed running at 6 mg an hour. While sedated and calm and comfortable and episodically requiring Dilaudid for pain control. He is on assist control rate of 22 with a tidal volume of 500 and FiO2 of 40% with a PEEP of 5. Blood gases showed a pH of 7.30 with a pCO2 of 32 and pO2 of 79 and the chest x-ray shows moderate-sized bilateral pleural effusions right more than left. ET tube is in a good location. NG tube is in good location. Output from the NG has slowed down and the patient is producing approximately 300-400 mL of NG output over the past 24 hours. The initial small bowel follow-through was consistent with small bowel obstruction as there was no passage of contrast past the jejunum. S ubsequent x-ray of the abdomen was done this morning and contrast has made it to the colon and as such there is probably there is no evidence of anatomic obstruction and this could be essentially an ileus. The patient remains nothing by mouth. The patient will be started on TPN for nutritional support. White cell count of 9.6. The sodium is at 149. BNP is 44 with a creatinine of 1.8 which is improved compared to yesterday. Most recent lactic acid level is down to 2.8. The patient was a shock liver and the AST/ALT levels are also improving based on yesterday's lab. No significant fever episodes since yesterday evening and the patient is not spiking any further temperature. Cultures are negative and the patient remains on a combination of Zosyn and Flagyl. Patient was reevaluated today on 10/27/19, remains in the ICU, intubated and mechanically ventilated. Patient's ventilator settings are assist control rate of 22 tidal volume is 500, FiO2 is 40%, PEEP is 5. ABG showed a pO2 of 80 pCO2 of 34 pH of 7.44. His drips include IV fluid at D5W 50 mL/h, TPN, Versed at 2 mg per hour, insulin at 5 units per hour, vasopressin at 0.03 units per minute. He is also on norepinephrine. 13 mcg/kg/m. Patient remains on Flagyl and Zosyn for presumptive abdominal sepsis. His CVP today is 5. Patient did have a mucoid bowel movement last night. Chest x-ray shows bilateral pleural ef fusions, right more so than left. Labs today showed relatively normal CBC, WBC count is 10.1 hemoglobin is 10.4. Electrolytes are normal sodium is improving down to 147 BUN is 42 creatinine is 1.54. Pro-calcitonin remains elevated at 8.54. Liver enzymes are improving. Patient was reevaluated today on 10/28/19, remains in the ICU, intubated and mechanically ventilated. His ventilator settings are assist control rate of 22 tidal volume is 500 FiO2 is 40% PEEP is 5. ABG showed a pO2 of 76 pCO2 of 31 and pH of 7.44 patient is on multiple drips including TPN at 10 5 mL per hour, and I cut it down to 80 mL per hour. He is on D5W which I have discontinued. He is also on insulin 21 units per hour. Vasopressin at 0.03 units per minute. Norepinephrine at 0.03 mcg/kg/MIN. Renal functioning is improving. And his urine output seems to be about 100 mL per hour. Chest x-ray continues to show right lower lobe atelectasis, consolidation, and possibly a small right-sided pleural effusion. Patient is sedated, however I have instructed the nurses to hold Versed, and assess his mental status today. Patient remains on Versed at 2 mg per hour. CBC is basically unremarkable hemoglobin is 9.4 WBC count is 12.7. BUN is 43 creatinine 1.38, steadily improving. Potassium is a bit low at 3.4, being corrected as per protocol. Pro-calcitonin remains high, and his chest x- ray is suggestive of right lower lobe consolidation. Blood cultures and urine cultures remain negative so far. Reevaluated today on 10/29/19, patient remains in the ICU, intubated and mechanically ventilated. Patient is on assist control rate of 22 tidal volume is 500 FiO2 is 40% and PEEP is 5. ABG showed a pO2 of 78 pCO2 of 33 and pH of 7.40. Patient has been off sedation for the last 24 hours. He only received 2 doses of Dilaudid last night, and he is off propofol. Remains on vasopressin at 0.03 units per minute, he is off norepinephrine, and his blood pressures seems to be holding nicely. IV fluid is at KVO. Patient is now on enteral feeding and off TPN completely. Patient had some bloody mucoid bowel movement, and it could be tested for C. diff, chest x-ray continues to show stable bibasilar ate lectasis or airspace disease with pleural effusions/small . Labs were reviewed WBC count is 14.2 hemoglobin is 9.5 electrolytes are relatively normal except for slight elevated sodium of 146. BUN continues to improve it is 45 today, and creatinine is 1.30 better compared to the last few days. Last pro-calcitonin was 8.54. Patient was reevaluated today on 10/30/19, remains in the intensive care unit, off sedation for the last 48 hours, continues to have no significant neurological response. CT of the brain was nondiagnostic. EEG was attempted yesterday, but there was excessive technical artifact. Hence it would be repeated today. Patient has a Glascow coma scale of 3. Obviously the patient is in profound coma. His narcotics and sedatives remain on hold, and he'll be reassessed again by neurology, may have to consider comfort care measures on this patient if he continues to have no significant neurological recovery. Patient is on assist control rate of 22 tidal volume is 500 FiO2 is 40% PEEP is 5. ABG showed a pO2 of 108 pCO2 of 30 pH of 7.43. Drips-medrano he is on insulin at 7.5 units per hour, he is off vasopressin and off norepinephrine he is on amiodarone 0.5 mg/m. WBC count is 15.4 hemoglobin is 10.1, BUN is 40 creatinine is 1.15 steadily improving. Reevaluated today on 10/31/19, patient remains in the intensive care unit. Remains intubated and mechanically ventilated. He is on assist control rate of 22, tidal volume is 500 FiO2 is 40% PEEP is 5. Patient remains comatose, unresponsive to any stimuli. Sedation and narcotics have been on hold for the last 3 days. And again no evidence of any neurological recovery noted in this patient. Pupils remain reactive. And sluggish. Patient does not respond to pain except occasional grimacing. Remains on insulin drip at 9 units per hour he is also on amiodarone 0.5 mg/m, and his IV fluid at KVO. WBC count is 14.4 hemoglobin is 9.8. ABG showed a pO2 of 104 pCO2 of 29 pH of 7.44 Reevaluated today on 11/01/19, patient remains in the ICU, remains intubated and mechanically ventilated. Ventilator settings are assist control rate of 22 tidal volume 500 FiO2 40% PEEP of 5 ABG showed a pO2 of 90 pCO2 29 pH of 7.44 patient is not requiring any drips at present except insulin drip at 6 units per hour. Patient remains unresponsive, grimaces only to deep painful stimuli. All his labs including CBC, basic metabolic profile, ABG, were all reviewed and they seem to be basically unremarkable. However the patient continues to have no neurological recovery and remains comatose, no change in the last 24 hours. Today I recommended stopping even Dilaudid which is a minimal dose given every 6 hours when necessary for pain but the patient is obviously not in pain. Objective - Vital Signs Vital signs: Vital Signs Temp 98.6 F 11/01/19 12:00 Pulse 101 H 11/01/19 12:00 Resp 31 H 11/01/19 12:00 BP 121/65 10/31/19 23:00 Pulse Ox 96 11/01/19 12:00 Intake & Output 10/31/19 11/01/19 11/01/19 18:59 06:59 18:59 Intake Total 2633.290 2460.635 1270.714 Output Total 1055 935 955 Balance 7481.088 5380.635 315.714 Weight 87.4 kg 87.4 kg Intake: IV 243 291 203 .9 Sodium Chloride @ 10ml 110 80 60 /hr Piperacillin-Tazobactam 3 100 175 125 .375 gm In Sodium Chloride 0.9% 100 ml @ 25 mls/hr IVPB Q8H INDU Rx#: [id number] Pressure Bag 33 36 18 Intake, IV Titration 310.290 129.635 47.714 Amount Insulin Regular 100 unit 60.290 29.635 47.714 In Sodium Chloride 0.9% 100 ml @ Per Protocol IV .Q0M INUD Rx#:[id number] metroNIDAZOLE-NS PMX 500 250 100 mg In Saline 1 100ml.bag @ 100 mls/hr IVPB Q8HR [facility] Rx#:[id number] Tube Feeding 980 840 420 Other 1100 1200 600 Output: Urine 1055 935 455 Stool 500 Other: Voiding Method Indwelling Catheter Indwelling Catheter Indwelling Catheter # Voids 1 ABP, PAP, CO, CI - Last Documented Arterial Blood Pressure 157/61 - Exam Physical Exam: Revealed an 79-year-old white male on responsive to any stimuli. Comatose. On mechanical ventilation. Grimaces to deep painful stimuli Head: Atraumatic, normocephalic. Endotracheal tube and orogastric tube are intact. HEENT:[Neck is supple.] [No neck masses.] [No thyromegaly.] [No JVD.] Left pupil is pinpoint, right pupil is 3 mm, reactive to light. Pupils are about the same. Chest: [Symmetrical chest expansion, diminished breath sounds at the bases, no rhonchi and no wheezes.] Cardiac Exam: [Normal S1 and S2, no S3 gallop, no murmur.] Abdomen: [Flat, soft, nontender, positive bowel sounds. No rebound, no guarding.] Extremities: [No clubbing, 1+ bipedal edema and chronic venous stasis changes bilaterally. Chronic superficial ulcerations of lower extremities noted. Neurological Exam: Patient is comatose, grimaces to deep painful stimuli.. Felisha Coma Scale score is 3 Psychiatric: Could not be assessed. Skin: Superficial ulcerations lower extremities and chronic venous stasis changes. - Labs CBC & Chem 7: 11/01/19 04:10 11/01/19 04:10 Labs: Abnormal Lab Results - Last 24 Hours (Table) 10/31/19 10/31/19 10/31/19 Range/Units 14:02 15:16 16:11 WBC (3.8-10.6) k/uL RBC (4.30-5.90) m/uL Hgb (13.0-17.5) gm/dL Hct (39.0-53.0) % MCV (80.0-100.0) fL Plt Count (150-450) k/uL Neutrophils # (1.3-7.7) k/uL Lymphocytes # (1.0-4.8) k/uL ABG pCO2 (35-45) mmHg ABG HCO3 (21-25) mmol/L ABG O2 Saturation (94-97) % Chloride (98-107) mmol/L Carbon Dioxide (22-30) mmol/L BUN (9-20) mg/dL Glucose (74-99) mg/dL POC Glucose (mg/dL) 178 H 145 H 179 H (75-99) mg/dL Calcium (8.4-10.2) mg/dL 10/31/19 10/31/19 10/31/19 Range/Units 17:07 17:59 19:06 WBC (3.8-10.6) k/uL RBC (4.30-5.90) m/uL Hgb (13.0-17.5) gm/dL Hct (39.0-53.0) % MCV (80.0-100.0) fL Plt Count (150-450) k/uL Neutrophils # (1.3-7.7) k/uL Lymphocytes # (1.0-4.8) k/uL ABG pCO2 (35-45) mmHg ABG HCO3 (21-25) mmol/L ABG O2 Saturation (94-97) % Chloride (98-107) mmol/L Carbon Dioxide (22-30) mmol/L BUN (9-20) mg/dL Glucose (74-99) mg/dL POC Glucose (mg/dL) 164 H 166 H 132 H (75-99) mg/dL Calcium (8.4-10.2) mg/dL 10/31/19 10/31/19 10/31/19 Range/Units 20:11 22:02 23:11 WBC (3.8-10.6) k/uL RBC (4.30-5.90) m/uL Hgb (13.0-17.5) gm/dL Hct (39.0-53.0) % MCV (80.0-100.0) fL Plt Count (150-450) k/uL Neutrophils # (1.3-7.7) k/uL Lymphocytes # (1.0-4.8) k/uL ABG pCO2 (35-45) mmHg ABG HCO3 (21-25) mmol/L ABG O2 Saturation (94-97) % Chloride (98-107) mmol/L Carbon Dioxide (22-30) mmol/L BUN (9-20) mg/dL Glucose (74-99) mg/dL POC Glucose (mg/dL) 164 H 204 H 192 H (75-99) mg/dL Calcium (8.4-10.2) mg/dL 11/01/19 11/01/19 11/01/19 Range/Units 00:27 01:21 02:47 WBC (3.8-10.6) k/uL RBC (4.30-5.90) m/uL Hgb (13.0-17.5) gm/dL Hct (39.0-53.0) % MCV (80.0-100.0) fL Plt Count (150-450) k/uL Neutrophils # (1.3-7.7) k/uL Lymphocytes # (1.0-4.8) k/uL ABG pCO2 (35-45) mmHg ABG HCO3 (21-25) mmol/L ABG O2 Saturation (94-97) % Chloride (98-107) mmol/L Carbon Dioxide (22-30) mmol/L BUN (9-20) mg/dL Glucose (74-99) mg/dL POC Glucose (mg/dL) 165 H 178 H 183 H (75-99) mg/dL Calcium (8.4-10.2) mg/dL 11/01/19 11/01/19 11/01/19 Range/Units 04:04 04:10 04:10 WBC 11.4 H (3.8-10.6) k/uL RBC 2.89 L (4.30-5.90) m/uL Hgb 9.5 L (13.0-17.5) gm/dL Hct 30.5 L (39.0-53.0) % MCV 105.5 H (80.0-100.0) fL Plt Count 622 H (150-450) k/uL Neutrophils # 9.9 H (1.3-7.7) k/uL Lymphocytes # 0.9 L (1.0-4.8) k/uL ABG pCO2 (35-45) mmHg ABG HCO3 (21-25) mmol/L ABG O2 Saturation (94-97) % Chloride 118 H (98-107) mmol/L Carbon Dioxide 20 L (22-30) mmol/L BUN 35 H (9-20) mg/dL Glucose 175 H (74-99) mg/dL POC Glucose (mg/dL) 175 H (75-99) mg/dL Calcium 7.4 L (8.4-10.2) mg/dL 11/01/19 11/01/19 11/01/19 Range/Units 05:13 06:18 07:08 WBC (3.8-10.6) k/uL RBC (4.30-5.90) m/uL Hgb (13.0-17.5) gm/dL Hct (39.0-53.0) % MCV (80.0-100.0) fL Plt Count (150-450) k/uL Neutrophils # (1.3-7.7) k/uL Lymphocytes # (1.0-4.8) k/uL ABG pCO2 (35-45) mmHg ABG HCO3 (21-25) mmol/L ABG O2 Saturation (94-97) % Chloride (98-107) mmol/L Carbon Dioxide (22-30) mmol/L BUN (9-20) mg/dL Glucose (74-99) mg/dL POC Glucose (mg/dL) 164 H 165 H 137 H (75-99) mg/dL Calcium (8.4-10.2) mg/dL 11/01/19 11/01/19 11/01/19 Range/Units 07:45 09:55 11:22 WBC (3.8-10.6) k/uL RBC (4.30-5.90) m/uL Hgb (13.0-17.5) gm/dL Hct (39.0-53.0) % MCV (80.0-100.0) fL Plt Count (150-450) k/uL Neutrophils # (1.3-7.7) k/uL Lymphocytes # (1.0-4.8) k/uL ABG pCO2 29 L (35-45) mmHg ABG HCO3 20 L (21-25) mmol/L ABG O2 Saturation 97.4 H (94-97) % Chloride (98-107) mmol/L Carbon Dioxide (22-30) mmol/L BUN (9-20) mg/dL Glucose (74-99) mg/dL POC Glucose (mg/dL) 226 H 256 H (75-99) mg/dL Calcium (8.4-10.2) mg/dL 11/01/19 Range/Units 12:08 WBC (3.8-10.6) k/uL RBC (4.30-5.90) m/uL Hgb (13.0-17.5) gm/dL Hct (39.0-53.0) % MCV (80.0-100.0) fL Plt Count (150-450) k/uL Neutrophils # (1.3-7.7) k/uL Lymphocytes # (1.0-4.8) k/uL ABG pCO2 (35-45) mmHg ABG HCO3 (21-25) mmol/L ABG O2 Saturation (94-97) % Chloride (98-107) mmol/L Carbon Dioxide (22-30) mmol/L BUN (9-20) mg/dL Glucose (74-99) mg/dL POC Glucose (mg/dL) 269 H (75-99) mg/dL Calcium (8.4-10.2) mg/dL Microbiology - Last 24 Hours (Table) 10/28/19 14:00 Blood Culture - Preliminary Blood No Growth after 72 hours Assessment and Plan Assessment: Impression: Acute hypoxic respiratory failure secondary to hypovolemic and septic shock. Acute abdominal sepsis, small bowel ileus/obstruction, remains on Zosyn and Flagyl. Resolved. Possible right lower lobe pneumonia, hospital-acquired or could be aspiration related. Acute hyperosmolar nonketotic diabetic syndrome with profound hypovolemia and volume depletion/dehydration. Acute kidney injury secondary to hypovolemia and possible septic shock with acute tubular necrosis. Resolved Altered mental status on presentation secondary to hyperosmolar nonketotic state. Mental status is not showing any improvement. History of Alzheimer's dementia Type 2 diabetes Pseudohyponatremia on presentation secondary to severe hyperglycemia. 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 History of 4.6 cm distal abdominal aortic aneurysm and previous iliac stent the graft placement. Acute shock liver secondary to hypotension on presentation. Improving. History of ischemic cardiomyopathy and LV dysfunction, ejection fraction of 30%. Severe lactic acidosis on presentation most likely secondary to abdominal sepsis and ischemic bowel. Coma with a [place] scale of 3 Recommendation: Continue ventilatory support. Continue to hold sedatives and narcotics , no more Dilaudid to be given. Will discuss his condition with the family early next week and decide on possibly comfort care measures.. Continue GI and DVT prophylaxis. Continue insulin. Presently on 6 units per hour. Continue antibiotics/Zosyn and Flagyl. Continue IV fluid at KVO. Continue enteral feeding Overall prognosis is extremely poor and guarded. Remains critically ill, prognosis is extremely poor, critical care time is 32 minutes. Time with Patient: Greater than 30
[2019-11-01 14:10] LABS: Glucose,Whole Blood 176 mg/dL (75-99)
[2019-11-01 15:10] LABS: Glucose,Whole Blood 177 mg/dL (75-99)
--- NOTE | 2019-11-01 16:22 | P.PN ---
Subjective Progress Note Date: 11/01/19 The patient is seen in neurologic follow-up via teleneurology, on November 01, 2019. Per the patient's nurse, he is no longer sedated. He continues to be intubated. Per RN, there has been focal shaking/spasm type movement of the right pectoralis region. This abnormal movement only lasts for 1 minute at the most. There has been no generalization of abnormal movements. There has been no seizure-like activity. Objective - Vital Signs Vital signs: Vital Signs Temp 98.6 F 11/01/19 12:00 Pulse 101 H 11/01/19 15:00 Resp 32 H 11/01/19 15:00 BP 121/65 10/31/19 23:00 Pulse Ox 97 11/01/19 15:00 Intake & Output 10/31/19 11/01/19 11/01/19 18:59 06:59 18:59 Intake Total 2633.290 2460.635 1540.747 Output Total 8385 847 2031 Balance 0651.548 0925.635 335.747 Weight 87.4 kg 87.4 kg Intake: IV 243 291 242 .9 Sodium Chloride @ 10ml 110 80 90 /hr Piperacillin-Tazobactam 3 100 175 125 .375 gm In Sodium Chloride 0.9% 100 ml @ 25 mls/hr IVPB Q8H INDU Rx#: [id number] Pressure Bag 33 36 27 Intake, IV Titration 310.290 129.635 68.747 Amount Insulin Regular 100 unit 60.290 29.635 68.747 In Sodium Chloride 0.9% 100 ml @ Per Protocol IV .Q0M INDU Rx#:[id number] metroNIDAZOLE-NS PMX 500 250 100 mg In Saline 1 100ml.bag @ 100 mls/hr IVPB Q8HR INDU Rx#:[id number] Tube Feeding 980 840 630 Other 1100 1200 600 Output: Urine 1055 935 705 Stool 500 Other: Voiding Method Indwelling Catheter Indwelling Catheter Indwelling Catheter # Voids 1 ABP, PAP, CO, CI - Last Documented Arterial Blood Pressure 124/48 - Exam Gen.: The patient is supine in the bed. He is intubated. He is breathing over the vent. Heart: Regular rate and rhythm Neurological exam Mental status: The patient is comatose. There is no response to verbal st imulation. The patient follows no commands. There is grimace in response to noxious stimulation, however there is no withdrawal. There are no spontaneous movements. The patient does not open his eyes. Cranial nerves: Pupils are unequal, with the right being 3 mm and the left being 2 mm. Both are reactive. Corneal reflexes are present bilaterally. Cough and gag reflexes are present. Motor: There are no spontaneous movements. - Labs CBC & Chem 7: 11/01/19 04:10 11/01/19 04:10 Labs: Abnormal Lab Results - Last 24 Hours (Table) 10/31/19 10/31/19 10/31/19 Range/Units 16:11 17:07 17:59 WBC (3.8-10.6) k/uL RBC (4.30-5.90) m/uL Hgb (13.0-17.5) gm/dL Hct (39.0-53.0) % MCV (80.0-100.0) fL Plt Count (150-450) k/uL Neutrophils # (1.3-7.7) k/uL Lymphocytes # (1.0-4.8) k/uL ABG pCO2 (35-45) mmHg ABG HCO3 (21-25) mmol/L ABG O2 Saturation (94-97) % Chloride (98-107) mmol/L Carbon Dioxide (22-30) mmol/L BUN (9-20) mg/dL Glucose (74-99) mg/dL POC Glucose (mg/dL) 179 H 164 H 166 H (75-99) mg/dL Calcium (8.4-10.2) mg/dL 10/31/19 10/31/19 10/31/19 Range/Units 19:06 20:11 22:02 WBC (3.8-10.6) k/uL RBC (4.30-5.90) m/uL Hgb (13.0-17.5) gm/dL Hct (39.0-53.0) % MCV (80.0-100.0) fL Plt Count (150-450) k/uL Neutrophils # (1.3-7.7) k/uL Lymphocytes # (1.0-4.8) k/uL ABG pCO2 (35-45) mmHg ABG HCO3 (21-25) mmol/L ABG O2 Saturation (94-97) % Chloride (98-107) mmol/L Carbon Dioxide (22-30) mmol/L BUN (9-20) mg/dL Glucose (74-99) mg/dL POC Glucose (mg/dL) 132 H 164 H 204 H (75-99) mg/dL Calcium (8.4-10.2) mg/dL 10/31/19 11/01/19 11/01/19 Range/Units 23:11 00:27 01:21 WBC (3.8-10.6) k/uL RBC (4.30-5.90) m/uL Hgb (13.0-17.5) gm/dL Hct (39.0-53.0) % MCV (80.0-100.0) fL Plt Count (150-450) k/uL Neutrophils # (1.3-7.7) k/uL Lymphocytes # (1.0-4.8) k/uL ABG pCO2 (35-45) mmHg ABG HCO3 (21-25) mmol/L ABG O2 Saturation (94-97) % Chloride (98-107) mmol/L Carbon Dioxide (22-30) mmol/L BUN (9-20) mg/dL Glucose (74-99) mg/dL POC Glucose (mg/dL) 192 H 165 H 178 H (75-99) mg/dL Calcium (8.4-10.2) mg/dL 11/01/19 11/01/19 11/01/19 Range/Units 02:47 04:04 04:10 WBC 11.4 H (3.8-10.6) k/uL RBC 2.89 L (4.30-5.90) m/uL Hgb 9.5 L (13.0-17.5) gm/dL Hct 30.5 L (39.0-53.0) % MCV 105.5 H (80.0-100.0) fL Plt Count 622 H (150-450) k/uL Neutrophils # 9.9 H (1.3-7.7) k/uL Lymphocytes # 0.9 L (1.0-4.8) k/uL ABG pCO2 (35-45) mmHg ABG HCO3 (21-25) mmol/L ABG O2 Saturation (94-97) % Chloride (98-107) mmol/L Carbon Dioxide (22-30) mmol/L BUN (9-20) mg/dL Glucose (74-99) mg/dL POC Glucose (mg/dL) 183 H 175 H (75-99) mg/dL Calcium (8.4-10.2) mg/dL 11/01/19 11/01/19 11/01/19 Range/Units 04:10 05:13 06:18 WBC (3.8-10.6) k/uL RBC (4.30-5.90) m/uL Hgb (13.0-17.5) gm/dL Hct (39.0-53.0) % MCV (80.0-100.0) fL Plt Count (150-450) k/uL Neutrophils # (1.3-7.7) k/uL Lymphocytes # (1.0-4.8) k/uL ABG pCO2 (35-45) mmHg ABG HCO3 (21-25) mmol/L ABG O2 Saturation (94-97) % Chloride 118 H (98-107) mmol/L Carbon Dioxide 20 L (22-30) mmol/L BUN 35 H (9-20) mg/dL Glucose 175 H (74-99) mg/dL POC Glucose (mg/dL) 164 H 165 H (75-99) mg/dL Calcium 7.4 L (8.4-10.2) mg/dL 11/01/19 11/01/19 11/01/19 Range/Units 07:08 07:45 09:55 WBC (3.8-10.6) k/uL RBC (4.30-5.90) m/uL Hgb (13.0-17.5) gm/dL Hct (39.0-53.0) % MCV (80.0-100.0) fL Plt Count (150-450) k/uL Neutrophils # (1.3-7.7) k/uL Lymphocytes # (1.0-4.8) k/uL ABG pCO2 29 L (35-45) mmHg ABG HCO3 20 L (21-25) mmol/L ABG O2 Saturation 97.4 H (94-97) % Chloride (98-107) mmol/L Carbon Dioxide (22-30) mmol/L BUN (9-20) mg/dL Glucose (74-99) mg/dL POC Glucose (mg/dL) 137 H 226 H (75-99) mg/dL Calcium (8.4-10.2) mg/dL 11/01/19 11/01/19 11/01/19 Range/Units 11:22 12:08 14:08 WBC (3.8-10.6) k/uL RBC (4.30-5.90) m/uL Hgb (13.0-17.5) gm/dL Hct (39.0-53.0) % MCV (80.0-100.0) fL Plt Count (150-450) k/uL Neutrophils # (1.3-7.7) k/uL Lymphocytes # (1.0-4.8) k/uL ABG pCO2 (35-45) mmHg ABG HCO3 (21-25) mmol/L ABG O2 Saturation (94-97) % Chloride (98-107) mmol/L Carbon Dioxide (22-30) mmol/L BUN (9-20) mg/dL Glucose (74-99) mg/dL POC Glucose (mg/dL) 256 H 269 H 176 H (75-99) mg/dL Calcium (8.4-10.2) mg/dL 11/01/19 Range/Units 15:09 WBC (3.8-10.6) k/uL RBC (4.30-5.90) m/uL Hgb (13.0-17.5) gm/dL Hct (39.0-53.0) % MCV (80.0-100.0) fL Plt Count (150-450) k/uL Neutrophils # (1.3-7.7) k/uL Lymphocytes # (1.0-4.8) k/uL ABG pCO2 (35-45) mmHg ABG HCO3 (21-25) mmol/L ABG O2 Saturation (94-97) % Chloride (98-107) mmol/L Carbon Dioxide (22-30) mmol/L BUN (9-20) mg/dL Glucose (74-99) mg/dL POC Glucose (mg/dL) 177 H (75-99) mg/dL Calcium (8.4-10.2) mg/dL Microbiology - Last 24 Hours (Table) 10/28/19 14:00 Blood Culture - Preliminary Blood No Growth after 72 hours Assessment and Plan Assessment: 1. Hyperosmotic nonketotic hypoglycemia 2. metabolic encephalopathy with probable component of cerebral anoxia Plan: 1. Continue supportive care at this time 2. Limit sedative meds Time with Patient: Less than 30 (spent 25 minutes with patient via teleneurology)
[2019-11-01 16:59] LABS: Glucose,Whole Blood 197 mg/dL (75-99)
[2019-11-01 18:33] LABS: Glucose,Whole Blood 176 mg/dL (75-99)
[2019-11-01 20:18] LABS: Glucose,Whole Blood 199 mg/dL (75-99)
[2019-11-01 21:02] LABS: Glucose,Whole Blood 179 mg/dL (75-99)
--- NOTE | 2019-11-01 21:35 | PN ---
PROGRESS NOTE DATE OF SERVICE: 11/01/2019 This 79-year-old gentleman who was admitted with abdominal sepsis and bowel obstruction, also had acute hypoxic respiratory failure. Patient mechanically intubated at this time. The patient being closely monitored by multiple consultants including Neurology, Nephrology and Cardiology. The white count is 11.4, and creatinine is improved at 1.13. The culture showed Layne albicans from the sputum x2. The patient is being followed by in the outpatient setting. Most recent chest x-ray which was personally reviewed by me showed stable right pleural effusion and bibasilar atelectasis. PAST MEDICAL HISTORY: Reviewed. REVIEW OF SYMPTOMS: Could not be taken. CURRENT MEDICATIONS: Reviewed and include: 1. Cordarone 200 mg b.i.d. 2. Aspirin. 3. Peridex. 4. Heparin. 5. Replacement protocols. 6. Narcan. 7. Nitrostat. 8. Protonix. 9. Zosyn 3.375 IV q.8. PHYSICAL EXAMINATION: Patient is mechanically sedated. Pulse 105, blood pressure 120/50. Respirations 13, temperature 98.2, pulse ox 94% on mechanical ventilation, 40% FiO2. HEENT: Conjunctivae normal. NECK: No JVD. CARDIOVASCULAR: S1, S2 muffled. RESPIRATIONS: Breath sounds diminished in the bases. A few scattered rhonchi and crackles. ABDOMEN: Soft, nontender. LEGS are no edema. No swelling. CENTRAL NERVOUS SYSTEM: Diffusely weak. LABS: WBC 11.4, hemoglobin 9.5, other labs are noted. ASSESSMENT: 1. Acute abdominal sepsis with acute small intestinal obstruction with distal jejunum. 2. Acute hypoxic respiratory failure secondary to hypovolemia and septic shock. 3. Acute nonketotic hyperosmolar diabetes mellitus with severe hypoglycemia. 4. Acute metabolic encephalopathy multifactorial. 5. Dementia. 6. Pseudohyponatremia. 7. 4.4 cm distal abdominal aortic aneurysm. 8. Layne albicans from the sputum. 9. Peripheral artery disease. 10.Acute shock liver. 11.Congestive heart failure with chronic systolic dysfunction, ejection fraction 30 to 35%. 12.Sepsis and septic shock, severe sepsis with possible community-acquired pneumonia. 13.Acute [id number]-[id number]-elevation myocardial infarction, likely type 2 from demand ischemia. Present on admission. 14.Acute kidney injury acute tubular necrosis. 15.Possible chronic kidney disease stage III. 16.Hypertension. 17.History of pneumonia. 18.New-onset atrial fibrillation. 19.Anoxic brain injury, possibly. 20.FULL CODE. RECOMMENDATIONS AND DISCUSSION: This 79-year-old gentleman who presented with multiple complex medical issues, we will monitor the patient closely, continue the current medications, management and symptomatic treatment. Continue with mechanical ventilation. Continue with the pressor support. Continue with empiric antibiotics. Follow the cultures. Closely follow with multiple consultants including Dr. Qiu. Guarded prognosis because of multiple complex medical issues. Further recommendations to follow. MMODL / IJN: [id number] / [email or web address]
[2019-11-01 22:02] LABS: Glucose,Whole Blood 178 mg/dL (75-99)
--- NOTE | 2019-11-01 23:04 | P.PN ---
Subjective Patient is still intubated. He was admitted to the hospital pneumonitis sepsis and respiratory failure. Cardiac he was asked to see him for atrial fibrillation. He is now in sinus rhythm. He was deemed an unsuitable candidate for anticoagulation. IV amiodarone was discontinued Labs reviewed white count 11.4, hemoglobin 9.5 platelet count 622,000 Sodium 144 potassium 4.0 BUN 35 creatinine 1.13 magnesium 1.7 Blood pressure 111/51 and his mercury pulse rate 107 beats a minute temperature 100.1F Breath sounds are reduced bilaterally some crackles abdomen soft heart sounds irregular heart rates elevated No edema Suggest Continue oral amiodarone I see management of acute respiratory failure Currently patient is on pressors Objective - Vital Signs Vital signs: Vital Signs Temp 100.1 F H 11/01/19 22:00 Pulse 103 H 11/01/19 22:00 Resp 31 H 11/01/19 22:00 BP 121/65 10/31/19 23:00 Pulse Ox 100 11/01/19 22:00 Intake & Output 11/01/19 11/01/19 11/02/19 06:59 18:59 06:59 Intake Total 2460.635 2223.296 863.657 Output Total 935 2340 1405 Balance 1525.635 -116.704 -541.343 Weight 87.4 kg Intake: IV 291 281 97 .9 Sodium Chloride @ 10ml 80 120 10 /hr Piperacillin-Tazobactam 3 175 125 75 .375 gm In Sodium Chloride 0.9% 100 ml @ 25 mls/hr IVPB Q8H INDU Rx#: [id number] Pressure Bag 36 36 12 Intake, IV Titration 129.635 102.296 16.657 Amount Insulin Regular 100 unit 29.635 102.296 16.657 In Sodium Chloride 0.9% 100 ml @ Per Protocol IV .Q0M INDU Rx#:[id number] metroNIDAZOLE-NS PMX 500 100 mg In Saline 1 100ml.bag @ 100 mls/hr IVPB Q8HR INDU Rx#:[id number] Tube Feeding 840 840 350 Other 1200 1000 400 Output: Urine 935 840 405 Stool 1500 1000 Other: Voiding Method Indwelling Catheter Indwelling Catheter ABP, PAP, CO, CI - Last Documented Arterial Blood Pressure 97/46 - Labs CBC & Chem 7: 11/01/19 04:10 11/01/19 17:00 Labs: Abnormal Lab Results - Last 24 Hours (Table) 10/31/19 11/01/19 11/01/19 Range/Units 23:11 00:27 01:21 WBC (3.8-10.6) k/uL RBC (4.30-5.90) m/uL Hgb (13.0-17.5) gm/dL Hct (39.0-53.0) % MCV (80.0-100.0) fL Plt Count (150-450) k/uL Neutrophils # (1.3-7.7) k/uL Lymphocytes # (1.0-4.8) k/uL ABG pCO2 (35-45) mmHg ABG HCO3 (21-25) mmol/L ABG O2 Saturation (94-97) % Chloride (98-107) mmol/L Carbon Dioxide (22-30) mmol/L BUN (9-20) mg/dL Glucose (74-99) mg/dL POC Glucose (mg/dL) 192 H 165 H 178 H (75-99) mg/dL Calcium (8.4-10.2) mg/dL 11/01/19 11/01/19 11/01/19 Range/Units 02:47 04:04 04:10 WBC 11.4 H (3.8-10.6) k/uL RBC 2.89 L (4.30-5.90) m/uL Hgb 9.5 L (13.0-17.5) gm/dL Hct 30.5 L (39.0-53.0) % MCV 105.5 H (80.0-100.0) fL Plt Count 622 H (150-450) k/uL Neutrophils # 9.9 H (1.3-7.7) k/uL Lymphocytes # 0.9 L (1.0-4.8) k/uL ABG pCO2 (35-45) mmHg ABG HCO3 (21-25) mmol/L ABG O2 Saturation (94-97) % Chloride (98-107) mmol/L Carbon Dioxide (22-30) mmol/L BUN (9-20) mg/dL Glucose (74-99) mg/dL POC Glucose (mg/dL) 183 H 175 H (75-99) mg/dL Calcium (8.4-10.2) mg/dL 05/23/20 05/23/20 05/23/20 Range/Units 04:10 05:13 06:18 WBC (3.8-10.6) k/uL RBC (4.30-5.90) m/uL Hgb (13.0-17.5) gm/dL Hct (39.0-53.0) % MCV (80.0-100.0) fL Plt Count (150-450) k/uL Neutrophils # (1.3-7.7) k/uL Lymphocytes # (1.0-4.8) k/uL ABG pCO2 (35-45) mmHg ABG HCO3 (21-25) mmol/L ABG O2 Saturation (94-97) % Chloride 118 H (98-107) mmol/L Carbon Dioxide 20 L (22-30) mmol/L BUN 35 H (9-20) mg/dL Glucose 175 H (74-99) mg/dL POC Glucose (mg/dL) 164 H 165 H (75-99) mg/dL Calcium 7.4 L (8.4-10.2) mg/dL 11/01/19 11/01/19 11/01/19 Range/Units 07:08 07:45 09:55 WBC (3.8-10.6) k/uL RBC (4.30-5.90) m/uL Hgb (13.0-17.5) gm/dL Hct (39.0-53.0) % MCV (80.0-100.0) fL Plt Count (150-450) k/uL Neutrophils # (1.3-7.7) k/uL Lymphocytes # (1.0-4.8) k/uL ABG pCO2 29 L (35-45) mmHg ABG HCO3 20 L (21-25) mmol/L ABG O2 Saturation 97.4 H (94-97) % Chloride (98-107) mmol/L Carbon Dioxide (22-30) mmol/L BUN (9-20) mg/dL Glucose (74-99) mg/dL POC Glucose (mg/dL) 137 H 226 H (75-99) mg/dL Calcium (8.4-10.2) mg/dL 11/01/19 11/01/19 11/01/19 Range/Units 11:22 12:08 14:08 WBC (3.8-10.6) k/uL RBC (4.30-5.90) m/uL Hgb (13.0-17.5) gm/dL Hct (39.0-53.0) % MCV (80.0-100.0) fL Plt Count (150-450) k/uL Neutrophils # (1.3-7.7) k/uL Lymphocytes # (1.0-4.8) k/uL ABG pCO2 (35-45) mmHg ABG HCO3 (21-25) mmol/L ABG O2 Saturation (94-97) % Chloride (98-107) mmol/L Carbon Dioxide (22-30) mmol/L BUN (9-20) mg/dL Glucose (74-99) mg/dL POC Glucose (mg/dL) 256 H 269 H 176 H (75-99) mg/dL Calcium (8.4-10.2) mg/dL 11/01/19 11/01/19 11/01/19 Range/Units 15:09 16:58 18:32 WBC (3.8-10.6) k/uL RBC (4.30-5.90) m/uL Hgb (13.0-17.5) gm/dL Hct (39.0-53.0) % MCV (80.0-100.0) fL Plt Count (150-450) k/uL Neutrophils # (1.3-7.7) k/uL Lymphocytes # (1.0-4.8) k/uL ABG pCO2 (35-45) mmHg ABG HCO3 (21-25) mmol/L ABG O2 Saturation (94-97) % Chloride (98-107) mmol/L Carbon Dioxide (22-30) mmol/L BUN (9-20) mg/dL Glucose (74-99) mg/dL POC Glucose (mg/dL) 177 H 197 H 176 H (75-99) mg/dL Calcium (8.4-10.2) mg/dL 11/01/19 11/01/19 11/01/19 Range/Units 20:16 21:01 22:00 WBC (3.8-10.6) k/uL RBC (4.30-5.90) m/uL Hgb (13.0-17.5) gm/dL Hct (39.0-53.0) % MCV (80.0-100.0) fL Plt Count (150-450) k/uL Neutrophils # (1.3-7.7) k/uL Lymphocytes # (1.0-4.8) k/uL ABG pCO2 (35-45) mmHg ABG HCO3 (21-25) mmol/L ABG O2 Saturation (94-97) % Chloride (98-107) mmol/L Carbon Dioxide (22-30) mmol/L BUN (9-20) mg/dL Glucose (74-99) mg/dL POC Glucose (mg/dL) 199 H 179 H 178 H (75-99) mg/dL Calcium (8.4-10.2) mg/dL Microbiology - Last 24 Hours (Table) 10/28/19 14:00 Blood Culture - Preliminary Blood No Growth after 96 hours
[2019-11-01 23:10] LABS: Glucose,Whole Blood 155 mg/dL (75-99)
[2019-11-02 00:13] LABS: Glucose,Whole Blood 194 mg/dL (75-99)
[2019-11-02] MEDS: INSULIN REGULAR 100 UNIT in SODIUM CHLORIDE 0.9% 100 ML IV SCH ×3 (00:28→20:57)
[2019-11-02] MEDS: metroNIDAZOLE-NS PMX 500 MG in SALINE 1 100ML.BAG IVPB SCH ×3 (00:30→15:28)
[2019-11-02] MEDS: HEPARIN SODIUM,PORCINE 5,000 UNIT/ML 1 ML VIAL SQ SCH ×3 (00:30→15:28)
[2019-11-02] MEDS: ACETAMINOPHEN TAB 325 MG TAB PO PRN ×2 (00:35→08:37)
[2019-11-02 02:07] LABS: Glucose,Whole Blood 164 mg/dL (75-99)
[2019-11-02 02:58] LABS: Glucose,Whole Blood 168 mg/dL (75-99)
[2019-11-02] MEDS: PIPERACILLIN-TAZOBACTAM 3.375 GM in SODIUM CHLORIDE 0.9% 100 ML IVPB SCH ×3 (04:38→20:51)
[2019-11-02 04:44] LABS: Glucose,Whole Blood 137 mg/dL (75-99)
[2019-11-02 05:29] LABS: Basophils % (A) 0 %; Eosinophils # (A) 0.1 k/uL (0-0.7); Eosinophils % (A) 1 %; HGB 8.2 gm/dL (13.0-17.5); Hypochromasia Slight; Lymphocytes % (A) 9 %; MCH 31.2 pg (25.0-35.0); MCHC 30.4 g/dL (31.0-37.0); MCV 102.4 fL (80.0-100.0); Macrocytosis Slight; Mean Platelet Volume 9.2; Monocytes # (A) 0.3 k/uL (0-1.0); Monocytes % (A) 3 %; Neutrophils # (A) 9.1 k/uL (1.3-7.7); Neutrophils % (A) 85 %; Platelet Count 711 k/uL (150-450); RBC 2.64 m/uL (4.30-5.90); RDW 14.3 % (11.5-15.5); WBC 10.8 k/uL (3.8-10.6)
[2019-11-02 05:33] LABS: Glucose,Whole Blood 154 mg/dL (75-99)
[2019-11-02 05:37] LABS: Calcium 7.2 mg/dL (8.4-10.2); Magnesium 1.9 mg/dL (1.6-2.3); Potassium 3.4 mmol/L (3.5-5.1)
[2019-11-02 06:36] LABS: Glucose,Whole Blood 170 mg/dL (75-99)
[2019-11-02] MEDS: POTASSIUM BICARBONATE/CIT AC 20 MEQ TABLET.EFF NG-TUBE SCH ×2 (06:52→08:28)
[2019-11-02] MEDS: MAGNESIUM SULFATE-D5W PMX 1 GM in DEXTROSE/WATER 1 100ML.BAG IVPB SCH ×2 (06:52→08:29)
[2019-11-02] MEDS: NOREPINEPHRINE 32 MG in SODIUM CHLORIDE 0.9% 218 ML IV SCH ×2 (06:55→23:58)
[2019-11-02 07:39] LABS: ABG Base Excess -5.7 mmol/L; ABG HCO3 18 mmol/L (21-25); ABG Oxygen Saturation 97.8 % (94-97); ABG PCO2 27 mmHg (35-45); ABG PH 7.45 (7.35-7.45); ABG PO2 98 mmHg (83-108); ABG TCO2 19 mmol/L (19-24)
[2019-11-02] MEDS: HYDROmorphone 0.5 MG/0.5 ML SYRINGE IVP PRN ×2 (08:10→15:27)
[2019-11-02] MEDS: CHLORHEXIDINE GLUCONATE 15 ML CUP MUCOUS MEM SCH ×2 (08:28→20:57)
[2019-11-02] MEDS: ASPIRIN 81 MG PO SCH (08:29)
[2019-11-02] MEDS: PANTOPRAZOLE 40 MG/10 ML VIAL IV SCH (08:29)
[2019-11-02] MEDS: AMIODARONE 200 MG TAB PO SCH ×2 (08:29→20:57)
[2019-11-02] MEDS: SODIUM CHLORIDE 0.9% 500 ML 500 ML IV SCH (08:30)
[2019-11-02 08:49] LABS: Glucose,Whole Blood 192 mg/dL (75-99)
--- NOTE | 2019-11-02 10:08 | XR ---
EXAMINATION TYPE: XR chest 1V portable DATE OF EXAM: 11/02/2019 COMPARISON: 10/31/2019 HISTORY: Ventilatory dependent respiratory failure. TECHNIQUE: Single frontal view of the chest is obtained. FINDINGS: Chronic right hemidiaphragm elevation. Similar small right pleural effusion and bibasilar airspace disease. Platelike left basilar atelectasis. Left clavian approach central venous catheter, enteric tube and endotracheal tube are similar in position. IMPRESSION: Stable exam from the prior of 10/31/2019 with small right pleural effusion and bibasilar airspace disease.
--- NOTE | 2019-11-02 10:48 | P.PN ---
Subjective Patient is seen in follow-up for acute kidney injury. Remains intubated on 40% FiO2. Renal function is fairly stable. Sodium level 145. He is receiving tube feeding. Vital signs are stable. General: The patient appeared well nourished and normally developed. HEENT: Head exam is unremarkable. Neck is without jugular venous distension. Intubated. LUNGS: Breath sounds decreased. HEART: Rate and Rhythm are regular. ABDOMEN: Soft, no distention noted. EXTREMITITES: No edema. Objective - Vital Signs Vital signs: Vital Signs Temp 102.1 F H 11/02/19 08:00 Pulse 101 H 11/02/19 08:00 Resp 35 H 11/02/19 08:00 BP 121/65 10/31/19 23:00 Pulse Ox 99 11/02/19 08:00 Intake & Output 11/01/19 11/02/19 11/02/19 18:59 06:59 18:59 Intake Total 2223.296 2870.214 678.524 Output Total 2340 3555 150 Balance -116.704 -684.786 528.524 Weight 87.4 kg 87 kg Intake: IV 281 524 26 .9 Sodium Chloride @ 10ml 120 60 20 /hr Magnesium Sulfate-D5w Pmx 100 1 gm In Dextrose/Water 1 100ml.bag @ 100 mls/hr IVPB Q1H [facility] Rx#: [id number] Piperacillin-Tazobactam 3 125 225 .375 gm In Sodium Chloride 0.9% 100 ml @ 25 mls/hr IVPB Q8H [facility] Rx#: [id number] Pressure Bag 36 39 6 metroNIDAZOLE-NS PMX 500 100 mg In Saline 1 100ml.bag @ 100 mls/hr IVPB Q8HR [facility] Rx#:[id number] Intake, IV Titration 102.296 76.214 12.524 Amount Insulin Regular 100 unit 102.296 76.214 12.524 In Sodium Chloride 0.9% 100 ml @ Per Protocol IV .Q0M IN[facility] Rx#:[id number] Tube Feeding 840 1070 140 Other 1000 1200 500 Output: Urine 840 1055 150 Stool 1500 2500 Other: Voiding Method Indwelling Catheter Indwelling Catheter Indwelling Catheter ABP, PAP, CO, CI - Last Documented Arterial Blood Pressure 137/59 - Labs CBC & Chem 7: 11/02/19 04:40 11/02/19 04:40 Labs: Abnormal Lab Results - Last 24 Hours (Table) 11/01/19 11/01/19 11/01/19 Range/Units 11:22 12:08 14:08 WBC (3.8-10.6) k/uL RBC (4.30-5.90) m/uL Hgb (13.0-17.5) gm/dL Hct (39.0-53.0) % MCV (80.0-100.0) fL MCHC (31.0-37.0) g/dL Plt Count (150-450) k/uL Neutrophils # (1.3-7.7) k/uL ABG pCO2 (35-45) mmHg ABG HCO3 (21-25) mmol/L ABG O2 Saturation (94-97) % Potassium (3.5-5.1) mmol/L Chloride (98-107) mmol/L Carbon Dioxide (22-30) mmol/L BUN (9-20) mg/dL Glucose (74-99) mg/dL POC Glucose (mg/dL) 256 H 269 H 176 H (75-99) mg/dL Calcium (8.4-10.2) mg/dL 11/01/19 11/01/19 11/01/19 Range/Units 15:09 16:58 18:32 WBC (3.8-10.6) k/uL RBC (4.30-5.90) m/uL Hgb (13.0-17.5) gm/dL Hct (39.0-53.0) % MCV (80.0-100.0) fL MCHC (31.0-37.0) g/dL Plt Count (150-450) k/uL Neutrophils # (1.3-7.7) k/uL ABG pCO2 (35-45) mmHg ABG HCO3 (21-25) mmol/L ABG O2 Saturation (94-97) % Potassium (3.5-5.1) mmol/L Chloride (98-107) mmol/L Carbon Dioxide (22-30) mmol/L BUN (9-20) mg/dL Glucose (74-99) mg/dL POC Glucose (mg/dL) 177 H 197 H 176 H (75-99) mg/dL Calcium (8.4-10.2) mg/dL 11/01/19 11/01/19 11/01/19 Range/Units 20:16 21:01 22:00 WBC (3.8-10.6) k/uL RBC (4.30-5.90) m/uL Hgb (13.0-17.5) gm/dL Hct (39.0-53.0) % MCV (80.0-100.0) fL MCHC (31.0-37.0) g/dL Plt Count (150-450) k/uL Neutrophils # (1.3-7.7) k/uL ABG pCO2 (35-45) mmHg ABG HCO3 (21-25) mmol/L ABG O2 Saturation (94-97) % Potassium (3.5-5.1) mmol/L Chloride (98-107) mmol/L Carbon Dioxide (22-30) mmol/L BUN (9-20) mg/dL Glucose (74-99) mg/dL POC Glucose (mg/dL) 199 H 179 H 178 H (75-99) mg/dL Calcium (8.4-10.2) mg/dL 11/01/19 11/02/19 11/02/19 Range/Units 23:08 00:12 02:05 WBC (3.8-10.6) k/uL RBC (4.30-5.90) m/uL Hgb (13.0-17.5) gm/dL Hct (39.0-53.0) % MCV (80.0-100.0) fL MCHC (31.0-37.0) g/dL Plt Count (150-450) k/uL Neutrophils # (1.3-7.7) k/uL ABG pCO2 (35-45) mmHg ABG HCO3 (21-25) mmol/L ABG O2 Saturation (94-97) % Potassium (3.5-5.1) mmol/L Chloride (98-107) mmol/L Carbon Dioxide (22-30) mmol/L BUN (9-20) mg/dL Glucose (74-99) mg/dL POC Glucose (mg/dL) 155 H 194 H 164 H (75-99) mg/dL Calcium (8.4-10.2) mg/dL 11/02/19 11/02/19 11/02/19 Range/Units 02:56 04:40 04:40 WBC 10.8 H (3.8-10.6) k/uL RBC 2.64 L (4.30-5.90) m/uL Hgb 8.2 L (13.0-17.5) gm/dL Hct 27.0 L (39.0-53.0) % MCV 102.4 H (80.0-100.0) fL MCHC 30.4 L (31.0-37.0) g/dL Plt Count 711 H (150-450) k/uL Neutrophils # 9.1 H (1.3-7.7) k/uL ABG pCO2 (35-45) mmHg ABG HCO3 (21-25) mmol/L ABG O2 Saturation (94-97) % Potassium 3.4 L (3.5-5.1) mmol/L Chloride 119 H (98-107) mmol/L Carbon Dioxide 18 L (22-30) mmol/L BUN 30 H (9-20) mg/dL Glucose 130 H (74-99) mg/dL POC Glucose (mg/dL) 168 H (75-99) mg/dL Calcium 7.2 L (8.4-10.2) mg/dL 11/02/19 11/02/19 11/02/19 Range/Units 04:41 05:31 06:35 WBC (3.8-10.6) k/uL RBC (4.30-5.90) m/uL Hgb (13.0-17.5) gm/dL Hct (39.0-53.0) % MCV (80.0-100.0) fL MCHC (31.0-37.0) g/dL Plt Count (150-450) k/uL Neutrophils # (1.3-7.7) k/uL ABG pCO2 (35-45) mmHg ABG HCO3 (21-25) mmol/L ABG O2 Saturation (94-97) % Potassium (3.5-5.1) mmol/L Chloride (98-107) mmol/L Carbon Dioxide (22-30) mmol/L BUN (9-20) mg/dL Glucose (74-99) mg/dL POC Glucose (mg/dL) 137 H 154 H 170 H (75-99) mg/dL Calcium (8.4-10.2) mg/dL 11/02/19 11/02/19 Range/Units 07:35 08:47 WBC (3.8-10.6) k/uL RBC (4.30-5.90) m/uL Hgb (13.0-17.5) gm/dL Hct (39.0-53.0) % MCV (80.0-100.0) fL MCHC (31.0-37.0) g/dL Plt Count (150-450) k/uL Neutrophils # (1.3-7.7) k/uL ABG pCO2 27 L (35-45) mmHg ABG HCO3 18 L (21-25) mmol/L ABG O2 Saturation 97.8 H (94-97) % Potassium (3.5-5.1) mmol/L Chloride (98-107) mmol/L Carbon Dioxide (22-30) mmol/L BUN (9-20) mg/dL Glucose (74-99) mg/dL POC Glucose (mg/dL) 192 H (75-99) mg/dL Calcium (8.4-10.2) mg/dL Microbiology - Last 24 Hours (Table) 10/28/19 14:00 Blood Culture - Preliminary Blood No Growth after 96 hours Assessment and Plan Plan: Assessment: 1. Acute kidney injury secondary to ATN secondary to severe intravascular volume depletion due to hyperglycemia and further worsened with hypotension. Creatinine peaked at 2.7 this admission and is 1.21 today. 2. Rule out chronic kidney disease. Creatinine was in the range of 1.2-1.5 in July 2018. No proteinuria on UA. 3. Severe metabolic acidosis secondary to DKA. Improved. 4. DKA s/p insulin drip. 5. Hypernatremia secondary to lack of oral water intake. Better. 6. Possible pneumonia maintained on antibiotics. 7. Anoxic brain injury. 8. Hypokalemia from poor intake. 9. Respiratory alkalosis with metabolic compensation. Plan: Maintain free water flushes. Currently receiving 100 mL per hour. Potassium being replaced. Overall prognosis poor.
[2019-11-02 11:15] LABS: Glucose,Whole Blood 224 mg/dL (75-99)
[2019-11-02 11:57] LABS: Glucose,Whole Blood 212 mg/dL (75-99)
--- NOTE | 2019-11-02 13:20 | P.PN ---
Subjective Progress Note Date: 11/02/19 Principal diagnosis: Hypovolemic shock, possible septic shock secondary to abdominal sepsis. 80-year-old male patient known history of dementia, diabetes hypertension osteoarthritis in addition to abdominal aortic aneurysm, presented to the ED with altered mentation and severe dehydration. The patient's was noted to have elevated blood sugars at home which prompted this hospital visit. He was unable to provide any history at time of admission. He was confused and disoriented and his condition was progressively getting worse over this past few weeks. He apparently had generalized weakness, falls, and he was not seeking any medical attention. He has Alzheimer's dementia. His has Alzheimer's dementia also. Apparently his oral intake has been minimal and the patient was drinking only 4 L of soda on a daily basis. He has been noncompliant his diabetic medications also. A blood sugar of more than 1800. Sodium was 116. Potassium was 5.7 with a chloride of 74 and a serum bicarbonate 8 with an anion gap of 34. Creatinine was 2.4 with a BUN of 33. The serum lactate was 11.7. Troponin was 0.8. Phosphorus was 8.8. Lipase was 229. UA showed +4 glucose and the serum acetone was negative. The patient received a total of 4 L of IV fluids in the emergency department. He was started on an insulin drip. Currently the patient is on half-normal saline with 20 mEq of potassium. The patient metabolic acidosis improving. Based on the follow-up blood gases the pH was 7.0 and septal 7.13. Serum bicarb is also on the rise. The serum pCO2 is 26. Troponin 38. This was done and FiO2 of 36%. Sodium level improved and septal 131 and a potassium level is at 3.8. Anion gap is improving is down to 28. Creatinine is still at 2.1. Most recent blood sugar shows that the sugar is still elevated above 600 with a serum measurement of 1230. The chest x-ray shows some subsegmental atelectasis in the right lower lobe. CAT scan of the brain shows no evidence of any acute hemorrhage. There is some degenerative changes and nonspecific white matter changes consistent with remote ischemia. EKG showing sinus tachycardia along with Q waves over the anteroseptal leads consistent with an old infarct. Heart rate is around 102. On today's evaluation of 10/22/2019, the patient is still lethargic and somnolent and encephalopathic. He is unable to volunteer any history. He has dementia. Furthermore there has been significant metabolic disturbances, leading to his impaired mentation. In terms of his blood sugar control, the patient has been on insulin drip at 3 units an hour. His IV fluids have been running in the form of D5 half-normal saline along with 20 mEq of potassium at the rate of 150 mL an hour. The patient was receiving another 2 L of IV fluid bolus based on the fact that it looks quite dry with very dry mucosal membranes on today's evaluation. In terms of his blood sugar control, the blood sugar was steadily going down and after the blood sugar went down below 300 was switched him to a D5 half-normal saline solution. His anion gap is at 10. The serum bicarb is at 18. His lactic acid level has dropped down to 6.0. His troponin peaked at 2.2. Denies having any chest pain. Note that his based on troponin was at 0.8. His EKG showed old Q-wave changes over the anteroseptal leads and echocardiac Tito was done today and the patient was found to have a ejection fraction estimated to be around 30-35% along with anteroseptal and apical hypokinesis. No evidence of an aortic valve stenosis. Unable to estimate the right-sided pressures. Unable to have a good visualization of the rest of the valves. His white cell count of 15.4. His antibiotic coverage includes a combination of Rocephin and Zithromax and Diflucan for now. There is some erythema along the penile tip and the Maradiaga catheter is in place. Repeat chest x-ray from today shows atelectatic changes in the right lower lobe. No other significant abnormalities have been noted. The patient is currently on 4 L of oxygen by nasal cannula with a pulse ox of 98%. He still has some underlying sinus tachycardia. On today's evaluation of 10/23/2019 the patient's condition decompensated. I have already contacted the son and updated them on his father's condition. Note that by yesterday afternoon, the patient became progressively more restless, agitated, shortness of breath, and he was also indicating the possibility of abdominal distention and pain. He was hard to communicate with him as the patient was not providing any meaningful information and he was altered mentally. Nevertheless, we suspected that the patient was having increased abdominal pain and discomfort. At that point, decided to insert an NG tube and immediately approximately a liter of gastric juice was obtained as a return. Abdomen remained quite tender and distended. At that point, the patient was also becoming more hypotensive. He was given more IV fluids. He was intubated and placed on a mechanical ventilator. Post intubation, the patient became hypotensive and he was started on IV pressors. Blood gases was noted. Chest x- ray was noted. The patient was developing a right lower lobe pulmonary infiltration. He was taken down for a CAT scan of the abdomen and pelvis and the CAT scan showed evidence of a infiltrate in the right lung base and fatty i nfiltration of the liver and some multiple calcified gallstones and the bile ducts were not dilated. At the same time, the CAT scan showed a fusiform 4.4 cm lower abdominal aortic aneurysm. There was no evidence of any retroperitoneal lymphadenopathy. There was multiple diverticula in the sigmoid colon and multiple dilated air fluid filled loops of the small bowel and the small bowel was dilated up to 4 cm in size. There was also mild wall thickening of the ascending colon. There was also minimal fat stranding around the sigmoid colon. There was osteoarthritis of the right hip. Antibiotics were modified and the patient was started on IV Zosyn. This morning, the patient is sedated with propofol at 20 g. This is to be switched to Versed at the patient's triglyceride level came up above 500. The patient is receiving IV fluids in the form of normal saline at rate of 100 mL an hour. His urine output is diminished and the patient's creatinine is at 2.5. The neck fluid balance over the past 24 hours has been +5.3 L. The patient is currently on norepinephrine infusion running at 0.4 mcg/kg per minute. The patient is also on insulin drip at 9 units an hour. Noted the blood sugar control is improved and the patient's lactic acid level was also improving it was down to 3.7. During the course of this treatment, the patient developed also a shock liver with elevated AST and ALT. He developed an acute kidney injury on top of his chronic kidney failure with a creatinine maxing at 2.7 down to 2.5. The patient is currently on a mechanical ventilator on assist control mode at the rate of 28 with tidal volume of 500 and FiO2 of 60% with a PEEP of 5. Morning blood gases showed a pH of 7.39 with a pCO2 of 26 and pO2 of 185. Morning chest x-ray showed right lower lobe pulmonary infiltration and subsequently a triple-lumen catheter was inserted and the supportive living catheter was inserted without any complications. Surgical consultation was also obtained regarding the abdominal findings. On 10/24/2019, the patient remains critically ill. The patient remains in shock and this is most likely a septic shock following an acute hypovolemic shock. The patient initially presented with HHS. Subsequently the patient started acting septic and the source is most likely the abdomen. The patient had a elevated TROPONIN level. Lactic acid levels were elevated and the patient had abdominal pain and distention. NG tube was inserted and a CAT scan of the abdomen was done that showed findings suggesting small bowel obstruction and some inflammatory changes involving the ascending colon and the sigmoid. Nevertheless, there was no evidence of any acute abdomen or pneumoperitoneum with ischemic bowel. The patient was kept on Zosyn and Flagyl was added. He did have difficulties with his hemodynamics and the patient was on and off becoming hypotensive and he was getting IV fluids to maintain a CVP above 10. The patient is currently receiving normal saline at the rate of 100 mL an hour. He is also on vasopressin at physiologic dose of 0.03 units per minute and the patient is on norepinephrine running at 0.38 g per KG per minute. Abdomen is still slightly distended and the patient is a bit tender and he can grimace upon abdominal [id number] white him being sedated with Versed which is running at 6 mg an hour. Gen. surgery will be asked to evaluate this patient. NG tube is in place and output over the past 24 hours has been in the order of 400 mL of gastric material. No bowel movements yet. He is having episodes of fever and the patient has had a temperature max of 11.1 and a temperature is down to 99.8. The patient had 2 additional sets of blood cultures sent patient was given a dose of vancomycin yesterday. This was done pending further cultures. Meanwhile, the patient remains on a mechanical ventilator. This morning, he remained on assist control mode with a tidal volume of 500 and FiO2 of 40% with a PEEP of 5. Chest x-ray is showing stable bilateral pulmonary infiltrates and atelectatic changes in lung bases. ET tube in good location so in the OG-tube. Her blood gases showed a pH of 7.39 with a pCO2 of 25 and pO2 of 67 and this was on above-mentioned ventilator setting. Lactic acid level is gradually dropped down to 3.0. The patient has shock liver. LFTs are considerably abnormal and the numbers are improving. AST is down to 2153 and ALT is down to 1107. As stated, neck yesterday dropped down to 3.2, the creatinine is still elevated at 2.2 with a BUN of 39 and the patient has a mild anion gap metabolic acidosis with a gap of 11 which is improved and his serum bicarbonate of 15. On today's evaluation of 10/25/2019, the patient remains critically ill. Remains intubated on a mechanical ventilator and remains sedated. On today's evaluation, he had an assist-control mode of ventilation and the patient is at the rate of 28 with a tidal volume of 500 and FiO2 of 50% with a PEEP of 5. The blood gases Show a pH of 7.51 with a pCO2 of 28 and pO2 of 65 and I think this is a essentially respiratory alkalosis as the patient's metabolic acidosis has recovered and the patient's serum bicarbonate was up to 22 while being given a bicarb infusion. The chest x-ray from today shows no significant interval change compared to yesterday's chest x-ray. There is a elevation of the right hemidiaphragm. The ET tube and NG tube remains in place. There is a left subclavian triple-lumen catheter in place. In my opinion, the patient remains quite septic. The patient is still having episodes of fever. The patient remains in shock and pressor dependent. Vasopressin is running at physiologic dose and the norepinephrine infusion has been drop down to 0.3 g per KG per minute. I had a discussion with the general surgeon and will going to continue the conservative approach. Patient is considered to be a high surgical risk for even exploration. Meanwhile, NG tube is in place and has drained approximately 900 mL of gastric material over the past 24 hours. Abdomen is slightly improved and less distended compared to yesterday. There is some mild direct tenderness without rebound tenderness. The patient is hypoactive in terms of his bowel sounds. Extremities abdomen is being done for a small bowel follow-through. The patient remains on insulin which is running at 2.5 units an hour for blood sugar control. The patient is on bicarb drip that he'll be taken off and this will decision to half-normal saline as the patient has also developed some hypernatremia. Serum bicarb is up to 21. He is having episodes of fever still. All of the repeat blood cultures came back negative. Hemoglobin is at 12.5. White cell count is at 10.7. Platelet count has dropped down to 94% is stable compared to yesterday. On 10/26/2019, the patient is currently being seen for a follow-up intubated on a mechanical ventilator in the intensive care unit. The patient remains sedated with Versed running at 6 mg an hour. While sedated and calm and comfortable and episodically requiring Dilaudid for pain control. He is on assist control rate of 22 with a tidal volume of 500 and FiO2 of 40% with a PEEP of 5. Blood gases showed a pH of 7.30 with a pCO2 of 32 and pO2 of 79 and the chest x-ray shows moderate-sized bilateral pleural effusions right more than left. ET tube is in a good location. NG tube is in good location. Output from the NG has slowed down and the patient is producing approximately 300-400 mL of NG output over the past 24 hours. The initial small bowel follow-through was consistent with small bowel obstruction as there was no passage of contrast past the jejunum. S ubsequent x-ray of the abdomen was done this morning and contrast has made it to the colon and as such there is probably there is no evidence of anatomic obstruction and this could be essentially an ileus. The patient remains nothing by mouth. The patient will be started on TPN for nutritional support. White cell count of 9.6. The sodium is at 149. BNP is 44 with a creatinine of 1.8 which is improved compared to yesterday. Most recent lactic acid level is down to 2.8. The patient was a shock liver and the AST/ALT levels are also improving based on yesterday's lab. No significant fever episodes since yesterday evening and the patient is not spiking any further temperature. Cultures are negative and the patient remains on a combination of Zosyn and Flagyl. Patient was reevaluated today on 10/27/19, remains in the ICU, intubated and mechanically ventilated. Patient's ventilator settings are assist control rate of 22 tidal volume is 500, FiO2 is 40%, PEEP is 5. ABG showed a pO2 of 80 pCO2 of 34 pH of 7.44. His drips include IV fluid at D5W 50 mL/h, TPN, Versed at 2 mg per hour, insulin at 5 units per hour, vasopressin at 0.03 units per minute. He is also on norepinephrine. 13 mcg/kg/m. Patient remains on Flagyl and Zosyn for presumptive abdominal sepsis. His CVP today is 5. Patient did have a mucoid bowel movement last night. Chest x-ray shows bilateral pleural ef fusions, right more so than left. Labs today showed relatively normal CBC, WBC count is 10.1 hemoglobin is 10.4. Electrolytes are normal sodium is improving down to 147 BUN is 42 creatinine is 1.54. Pro-calcitonin remains elevated at 8.54. Liver enzymes are improving. Patient was reevaluated today on 10/28/19, remains in the ICU, intubated and mechanically ventilated. His ventilator settings are assist control rate of 22 tidal volume is 500 FiO2 is 40% PEEP is 5. ABG showed a pO2 of 76 pCO2 of 31 and pH of 7.44 patient is on multiple drips including TPN at 10 5 mL per hour, and I cut it down to 80 mL per hour. He is on D5W which I have discontinued. He is also on insulin 21 units per hour. Vasopressin at 0.03 units per minute. Norepinephrine at 0.03 mcg/kg/MIN. Renal functioning is improving. And his urine output seems to be about 100 mL per hour. Chest x-ray continues to show right lower lobe atelectasis, consolidation, and possibly a small right-sided pleural effusion. Patient is sedated, however I have instructed the nurses to hold Versed, and assess his mental status today. Patient remains on Versed at 2 mg per hour. CBC is basically unremarkable hemoglobin is 9.4 WBC count is 12.7. BUN is 43 creatinine 1.38, steadily improving. Potassium is a bit low at 3.4, being corrected as per protocol. Pro-calcitonin remains high, and his chest x- ray is suggestive of right lower lobe consolidation. Blood cultures and urine cultures remain negative so far. Reevaluated today on 10/29/19, patient remains in the ICU, intubated and mechanically ventilated. Patient is on assist control rate of 22 tidal volume is 500 FiO2 is 40% and PEEP is 5. ABG showed a pO2 of 78 pCO2 of 33 and pH of 7.40. Patient has been off sedation for the last 24 hours. He only received 2 doses of Dilaudid last night, and he is off propofol. Remains on vasopressin at 0.03 units per minute, he is off norepinephrine, and his blood pressures seems to be holding nicely. IV fluid is at KVO. Patient is now on enteral feeding and off TPN completely. Patient had some bloody mucoid bowel movement, and it could be tested for C. diff, chest x-ray continues to show stable bibasilar ate lectasis or airspace disease with pleural effusions/small . Labs were reviewed WBC count is 14.2 hemoglobin is 9.5 electrolytes are relatively normal except for slight elevated sodium of 146. BUN continues to improve it is 45 today, and creatinine is 1.30 better compared to the last few days. Last pro-calcitonin was 8.54. Patient was reevaluated today on 10/30/19, remains in the intensive care unit, off sedation for the last 48 hours, continues to have no significant neurological response. CT of the brain was nondiagnostic. EEG was attempted yesterday, but there was excessive technical artifact. Hence it would be repeated today. Patient has a Glascow coma scale of 3. Obviously the patient is in profound coma. His narcotics and sedatives remain on hold, and he'll be reassessed again by neurology, may have to consider comfort care measures on this patient if he continues to have no significant neurological recovery. Patient is on assist control rate of 22 tidal volume is 500 FiO2 is 40% PEEP is 5. ABG showed a pO2 of 108 pCO2 of 30 pH of 7.43. Drips-medrano he is on insulin at 7.5 units per hour, he is off vasopressin and off norepinephrine he is on amiodarone 0.5 mg/m. WBC count is 15.4 hemoglobin is 10.1, BUN is 40 creatinine is 1.15 steadily improving. Reevaluated today on 10/31/19, patient remains in the intensive care unit. Remains intubated and mechanically ventilated. He is on assist control rate of 22, tidal volume is 500 FiO2 is 40% PEEP is 5. Patient remains comatose, unresponsive to any stimuli. Sedation and narcotics have been on hold for the last 3 days. And again no evidence of any neurological recovery noted in this patient. Pupils remain reactive. And sluggish. Patient does not respond to pain except occasional grimacing. Remains on insulin drip at 9 units per hour he is also on amiodarone 0.5 mg/m, and his IV fluid at KVO. WBC count is 14.4 hemoglobin is 9.8. ABG showed a pO2 of 104 pCO2 of 29 pH of 7.44 Reevaluated today on 11/01/19, patient remains in the ICU, remains intubated and mechanically ventilated. Ventilator settings are assist control rate of 22 tidal volume 500 FiO2 40% PEEP of 5 ABG showed a pO2 of 90 pCO2 29 pH of 7.44 patient is not requiring any drips at present except insulin drip at 6 units per hour. Patient remains unresponsive, grimaces only to deep painful stimuli. All his labs including CBC, basic metabolic profile, ABG, were all reviewed and they seem to be basically unremarkable. However the patient continues to have no neurological recovery and remains comatose, no change in the last 24 hours. Today I recommended stopping even Dilaudid which is a minimal dose given every 6 hours when necessary for pain but the patient is obviously not in pain. Reevaluated today on 11/02/19, patient remains in the ICU. Remains intubated and mechanically ventilated. He is presently requiring a bit of Dilaudid for intermittent episodes of biting on the tube and gets agitated but unresponsive. Dilaudid seems to help, and is given only once every 4 hours as needed. Patient is on assist control rate of mechanical ventilation 22 tidal volume is 500 FiO2 is 40% and PEEP of 5. His ABG showed a pO2 of 97 pCO2 of 26 pH of 7.44. Patient remains on insulin drip at 6 units per hour, and his IV fluid at KVO. Again he is receiving Dilaudid every 4 hours as needed for extreme agitation and biting on the tube with seems to calm him down. Otherwise his overall neurological status is about the same. CBC is relatively normal hemoglobin is down to 8.2. Basic metabolic profile is normal, bicarb is 18. BUN is 30 creatinine is 1.21. Hence I will cautiously hydrate the patient. Chest x-ray continues to show small right-sided pleural effusion and bibasilar atelectasis or airspace disease Objective - Vital Signs Vital signs: Vital Signs Temp 102.1 F H 11/02/19 08:00 Pulse 89 11/02/19 11:00 Resp 25 H 11/02/19 11:00 BP 121/65 05/22/20 23:00 Pulse Ox 99 11/02/19 11:00 Intake & Output 11/01/19 11/02/19 11/02/19 18:59 06:59 18:59 Intake Total 2223.296 2870.214 860.718 Output Total 2340 3555 325 Balance -116.704 -684.786 535.718 Weight 87.4 kg 87 kg Intake: IV 281 524 52 .9 Sodium Chloride @ 10ml 120 60 40 /hr Magnesium Sulfate-D5w Pmx 100 1 gm In Dextrose/Water 1 100ml.bag @ 100 mls/hr IVPB Q1H [facility] Rx#: [id number] Piperacillin-Tazobactam 3 125 225 .375 gm In Sodium Chloride 0.9% 100 ml @ 25 mls/hr IVPB Q8H IN[facility] Rx#: [id number] Pressure Bag 36 39 12 metroNIDAZOLE-NS PMX 500 100 mg In Saline 1 100ml.bag @ 100 mls/hr IVPB Q8HR IN[facility] Rx#:[id number] Intake, IV Titration 102.296 76.214 28.718 Amount Insulin Regular 100 unit 102.296 76.214 28.718 In Sodium Chloride 0.9% 100 ml @ Per Protocol IV .Q0M INDU Rx#:[id number] Tube Feeding 840 1070 280 Other 1000 1200 500 Output: Urine 840 1055 325 Stool 1500 2500 Other: Voiding Method Indwelling Catheter Indwelling Catheter Indwelling Catheter ABP, PAP, CO, CI - Last Documented Arterial Blood Pressure 117/50 - Exam Physical Exam: Revealed an 79-year-old white male on responsive to any stimuli. Except grimacing to pain. Head: Atraumatic, normocephalic. Endotracheal tube and orogastric tube are intact. Intermittently noted to be biting on the endotracheal tube HEENT:[Neck is supple.] [No neck masses.] [No thyromegaly.] [No JVD.] Pinpoint pupils. Chest: [Symmetrical chest expansion, diminished breath sounds at the bases, no rhonchi and no wheezes.] Cardiac Exam: [Normal S1 and S2, no S3 gallop, no murmur.] Abdomen: [Flat, soft, nontender, positive bowel sounds. No rebound, no guarding.] Extremities: [No clubbing, 1+ bipedal edema and chronic venous stasis changes bilaterally. Chronic superficial ulcerations of lower extremities noted. Neurological Exam: Patient is comatose, grimaces to deep painful stimuli.. Felisha Coma Scale score is 3 Psychiatric: Could not be assessed. Skin: Superficial ulcerations lower extremities and chronic venous stasis changes. Coccygeal ulceration and equal but his ulcer is noted. - Labs CBC & Chem 7: 11/02/19 04:40 11/02/19 04:40 Labs: Abnormal Lab Results - Last 24 Hours (Table) 11/01/19 11/01/19 11/01/19 Range/Units 14:08 15:09 16:58 WBC (3.8-10.6) k/uL RBC (4.30-5.90) m/uL Hgb (13.0-17.5) gm/dL Hct (39.0-53.0) % MCV (80.0-100.0) fL MCHC (31.0-37.0) g/dL Plt Count (150-450) k/uL Neutrophils # (1.3-7.7) k/uL ABG pCO2 (35-45) mmHg ABG HCO3 (21-25) mmol/L ABG O2 Saturation (94-97) % Potassium (3.5-5.1) mmol/L Chloride (98-107) mmol/L Carbon Dioxide (22-30) mmol/L BUN (9-20) mg/dL Glucose (74-99) mg/dL POC Glucose (mg/dL) 176 H 177 H 197 H (75-99) mg/dL Calcium (8.4-10.2) mg/dL 11/01/19 11/01/19 11/01/19 Range/Units 18:32 20:16 21:01 WBC (3.8-10.6) k/uL RBC (4.30-5.90) m/uL Hgb (13.0-17.5) gm/dL Hct (39.0-53.0) % MCV (80.0-100.0) fL MCHC (31.0-37.0) g/dL Plt Count (150-450) k/uL Neutrophils # (1.3-7.7) k/uL ABG pCO2 (35-45) mmHg ABG HCO3 (21-25) mmol/L ABG O2 Saturation (94-97) % Potassium (3.5-5.1) mmol/L Chloride (98-107) mmol/L Carbon Dioxide (22-30) mmol/L BUN (9-20) mg/dL Glucose (74-99) mg/dL POC Glucose (mg/dL) 176 H 199 H 179 H (75-99) mg/dL Calcium (8.4-10.2) mg/dL 11/01/19 11/01/19 11/02/19 Range/Units 22:00 23:08 00:12 WBC (3.8-10.6) k/uL RBC (4.30-5.90) m/uL Hgb (13.0-17.5) gm/dL Hct (39.0-53.0) % MCV (80.0-100.0) fL MCHC (31.0-37.0) g/dL Plt Count (150-450) k/uL Neutrophils # (1.3-7.7) k/uL ABG pCO2 (35-45) mmHg ABG HCO3 (21-25) mmol/L ABG O2 Saturation (94-97) % Potassium (3.5-5.1) mmol/L Chloride (98-107) mmol/L Carbon Dioxide (22-30) mmol/L BUN (9-20) mg/dL Glucose (74-99) mg/dL POC Glucose (mg/dL) 178 H 155 H 194 H (75-99) mg/dL Calcium (8.4-10.2) mg/dL 11/02/19 11/02/19 11/02/19 Range/Units 02:05 02:56 04:40 WBC (3.8-10.6) k/uL RBC (4.30-5.90) m/uL Hgb (13.0-17.5) gm/dL Hct (39.0-53.0) % MCV (80.0-100.0) fL MCHC (31.0-37.0) g/dL Plt Count (150-450) k/uL Neutrophils # (1.3-7.7) k/uL ABG pCO2 (35-45) mmHg ABG HCO3 (21-25) mmol/L ABG O2 Saturation (94-97) % Potassium 3.4 L (3.5-5.1) mmol/L Chloride 119 H (98-107) mmol/L Carbon Dioxide 18 L (22-30) mmol/L BUN 30 H (9-20) mg/dL Glucose 130 H (74-99) mg/dL POC Glucose (mg/dL) 164 H 168 H (75-99) mg/dL Calcium 7.2 L (8.4-10.2) mg/dL 11/02/19 11/02/19 11/02/19 Range/Units 04:40 04:41 05:31 WBC 10.8 H (3.8-10.6) k/uL RBC 2.64 L (4.30-5.90) m/uL Hgb 8.2 L (13.0-17.5) gm/dL Hct 27.0 L (39.0-53.0) % MCV 102.4 H (80.0-100.0) fL MCHC 30.4 L (31.0-37.0) g/dL Plt Count 711 H (150-450) k/uL Neutrophils # 9.1 H (1.3-7.7) k/uL ABG pCO2 (35-45) mmHg ABG HCO3 (21-25) mmol/L ABG O2 Saturation (94-97) % Potassium (3.5-5.1) mmol/L Chloride (98-107) mmol/L Carbon Dioxide (22-30) mmol/L BUN (9-20) mg/dL Glucose (74-99) mg/dL POC Glucose (mg/dL) 137 H 154 H (75-99) mg/dL Calcium (8.4-10.2) mg/dL 11/02/19 11/02/19 11/02/19 Range/Units 06:35 07:35 08:47 WBC (3.8-10.6) k/uL RBC (4.30-5.90) m/uL Hgb (13.0-17.5) gm/dL Hct (39.0-53.0) % MCV (80.0-100.0) fL MCHC (31.0-37.0) g/dL Plt Count (150-450) k/uL Neutrophils # (1.3-7.7) k/uL ABG pCO2 27 L (35-45) mmHg ABG HCO3 18 L (21-25) mmol/L ABG O2 Saturation 97.8 H (94-97) % Potassium (3.5-5.1) mmol/L Chloride (98-107) mmol/L Carbon Dioxide (22-30) mmol/L BUN (9-20) mg/dL Glucose (74-99) mg/dL POC Glucose (mg/dL) 170 H 192 H (75-99) mg/dL Calcium (8.4-10.2) mg/dL 11/02/19 11/02/19 Range/Units 11:13 11:55 WBC (3.8-10.6) k/uL RBC (4.30-5.90) m/uL Hgb (13.0-17.5) gm/dL Hct (39.0-53.0) % MCV (80.0-100.0) fL MCHC (31.0-37.0) g/dL Plt Count (150-450) k/uL Neutrophils # (1.3-7.7) k/uL ABG pCO2 (35-45) mmHg ABG HCO3 (21-25) mmol/L ABG O2 Saturation (94-97) % Potassium (3.5-5.1) mmol/L Chloride (98-107) mmol/L Carbon Dioxide (22-30) mmol/L BUN (9-20) mg/dL Glucose (74-99) mg/dL POC Glucose (mg/dL) 224 H 212 H (75-99) mg/dL Calcium (8.4-10.2) mg/dL Microbiology - Last 24 Hours (Table) 10/28/19 14:00 Blood Culture - Preliminary Blood No Growth after 96 hours Assessment and Plan Assessment: Impression: Acute hypoxic respiratory failure secondary to hypovolemic and septic shock. Acute abdominal sepsis, small bowel ileus/obstruction, remains on Zosyn and Flagyl. Resolved. Possible right lower lobe pneumonia, hospital-acquired or could be aspiration related. Acute hyperosmolar nonketotic diabetic syndrome with profound hypovolemia and volume depletion/dehydration. Acute kidney injury secondary to hypovolemia and possible septic shock with acute tubular necrosis. Resolved Altered mental status on presentation secondary to hyperosmolar nonketotic state. Mental status is not showing any improvement. History of Alzheimer's dementia Type 2 diabetes Pseudohyponatremia on presentation secondary to severe hyperglycemia. 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 History of 4.6 cm distal abdominal aortic aneurysm and previous iliac stent the graft placement. Acute shock liver secondary to hypotension on presentation. Improving. History of ischemic cardiomyopathy and LV dysfunction, ejection fraction of 30%. Severe lactic acidosis on presentation most likely secondary to abdominal sepsis and ischemic bowel. Coma with a Olivet scale of 3 Recommendation: Continue ventilatory support. Not ready for any form of weaning considering his overall neurological status. Resume Dilaudid only as needed and try to minimize as much as possible giving narcotics. Increase IV fluid 0.9 normal saline to 75 mL per hour Continue GI and DVT prophylaxis. Continue insulin. Presently on 6 units per hour. Continue antibiotics/Zosyn and Flagyl. Continue enteral feeding Overall prognosis is extremely poor and guarded. Family will be approached next week about possibly comfort care measures. Remains critically ill, prognosis is extremely poor, critical care time is 33 minutes. Time with Patient: Greater than 30
[2019-11-02 14:16] LABS: Glucose,Whole Blood 156 mg/dL (75-99)
[2019-11-02 16:07] LABS: Glucose,Whole Blood 161 mg/dL (75-99)
[2019-11-02 17:17] LABS: Glucose,Whole Blood 175 mg/dL (75-99)
[2019-11-02 18:06] LABS: Glucose,Whole Blood 168 mg/dL (75-99)
[2019-11-02 18:50] LABS: Glucose,Whole Blood 156 mg/dL (75-99)
--- NOTE | 2019-11-02 19:14 | PN ---
PROGRESS NOTE DATE OF SERVICE: 11/02/2019 This 79-year-old gentleman admitted with abdominal sepsis and large bowel obstruction, also had acute hypoxic respiratory failure. The patient also possibly had a septic shock also. The patient on broad spectrum IV antibiotics. Patient also had multiple electrolytes abnormalities also. The patient is also growing Layne albicans in the sputum. Multiple consultants are following the patient closely at this time. The most recent chest x-ray which was personally reviewed by me showed bilateral lesions, right more the left and nephrology also following the patient closely. The patient started on insulin drip at 8 units/hour for control of the blood sugars at this time. Potassium 3.4. The patient is on 40% FiO2 with 5 of PEEP at this time. Dr. Qiu is following the patient closely. The patient also receiving some Dilaudid for agitation as well. The patient closely monitored. A CT scan of the brain done on 10/29/2019 showed only cerebral atrophy. Past medical history reviewed. Review of systems could not be taken. The patient mechanically ventilated and sedated. CURRENT MEDICATIONS: 1. Tylenol 650 q.6 p.r.n. 2. Cordarone 200 mg b.i.d. 3. Aspirin 81 mg daily. 4. Peridex. 5. Heparin 5000 subcu q.8h. 6. Dilaudid p.r.n. 7. Flagyl 500 mg IV q.8. 8. P.r.n. medications. 9. Narcan. 10.Nitrostat. 11.Levophed. 12.Zosyn 3.375 IV q.6. PHYSICAL EXAMINATION: Patient is mechanically ventilated and sedated. Pulse 94, blood pressure 145/51, respiration 31, temperature normal, pulse ox 97% on mechanical ventilation. Vent settings are noted, 40% FiO2, 5 PEEP. HEENT: Conjunctivae normal. Oral mucosa moist. NECK is no jugular venous distention. No carotid bruit. No lymph node enlargement. CARDIOVASCULAR systems: S1, S2 muffled. RESPIRATION: Breath sounds diminished in the bases. Bilateral scattered rhonchi and crackles. Expiratory wheezing. ABDOMEN: Soft, nontender. LEGS: No edema. No swelling. NERVOUS SYSTEM: Diffusely weak. LABS: WBC 10.8, hemoglobin is 8.2 and sodium is 145, potassium 4.5. The culture showed Layne albicans. ASSESSMENT: 1. Acute abdominal sepsis with acute small bowel obstruction. 2. Acute hypoxic respiratory failure secondary from hypovolemia and septic shock on mechanical ventilation. 3. Acute nonketotic hyperosmolar diabetes mellitus with severe hyperglycemia on insulin drip. 4. Acute metabolic encephalopathy and change in mental status, multifactorial. 5. Dementia. 6. Layne albicans from the sputum. 7. Pseudohyponatremia. 8. 4.4 cm distal abdominal aortic aneurysm. 9. Peripheral artery disease. 10.Acute shock liver. 11.Congestive heart failure with chronic systolic dysfunction ejection fraction 30- 35%. 12.Prolonged QTc at 510. Will repeat an EKG. 13.Sepsis, septic shock with severe sepsis with possible community-acquired pneumonia. 14.Acute ivi-SQ-gmtctii-elevation myocardial infarction, likely type 2 from demand ischemia present on admission. 15.Acute kidney injury with acute tubular necrosis, prerenal factors. 16.Possible chronic kidney stage III baseline. 17.Hypertension. 18.History of pneumonia. 19.New onset atrial fibrillation, paroxysmal. 20.Anoxic brain injury possibly. 21.FULL CODE. RECOMMENDATIONS AND DISCUSSION: Recommend to continue current medications, symptomatic treatment. Otherwise at this time I recommend continue with supplement vitamins and I would also recommend a course of Diflucan as well. We will continue to monitor. Guarded prognosis. We will hold off the Diflucan at this time because of the prolonged QT interval. MMODL / IJN: [id number] /
[2019-11-02 20:43] LABS: Glucose,Whole Blood 227 mg/dL (75-99)
[2019-11-02 21:24] LABS: Glucose,Whole Blood 218 mg/dL (75-99)
[2019-11-02 22:17] LABS: Glucose,Whole Blood 224 mg/dL (75-99)
[2019-11-02 23:21] LABS: Glucose,Whole Blood 181 mg/dL (75-99)
[2019-11-03 00:03] LABS: Glucose,Whole Blood 178 mg/dL (75-99)
[2019-11-03] MEDS: ACETAMINOPHEN TAB 325 MG TAB PO PRN (00:20)
[2019-11-03] MEDS: HEPARIN SODIUM,PORCINE 5,000 UNIT/ML 1 ML VIAL SQ SCH ×4 (00:20→23:51)
[2019-11-03] MEDS: metroNIDAZOLE-NS PMX 500 MG in SALINE 1 100ML.BAG IVPB SCH ×4 (00:20→23:51)
[2019-11-03 01:00] LABS: Glucose,Whole Blood 195 mg/dL (75-99)
[2019-11-03 02:56] LABS: Glucose,Whole Blood 142 mg/dL (75-99)
[2019-11-03] MEDS: PIPERACILLIN-TAZOBACTAM 3.375 GM in SODIUM CHLORIDE 0.9% 100 ML IVPB SCH ×3 (04:07→20:01)
[2019-11-03 04:17] LABS: Glucose,Whole Blood 130 mg/dL (75-99)
[2019-11-03 04:45] LABS: HCT 27.1 % (39.0-53.0); HGB 8.3 gm/dL (13.0-17.5); Hypochromasia Moderate; MCHC 30.6 g/dL (31.0-37.0); MCV 104.4 fL (80.0-100.0); Macrocytosis Moderate; Mean Platelet Volume 8.8; Platelet Count 783 k/uL (150-450); RDW 14.7 % (11.5-15.5); WBC 11.4 k/uL (3.8-10.6)
[2019-11-03 05:00] LABS: Magnesium 1.9 mg/dL (1.6-2.3); Potassium 3.3 mmol/L (3.5-5.1)
[2019-11-03 05:07] LABS: Glucose,Whole Blood 140 mg/dL (75-99)
[2019-11-03 06:20] LABS: Glucose,Whole Blood 197 mg/dL (75-99)
[2019-11-03 07:12] LABS: Glucose,Whole Blood 193 mg/dL (75-99)
[2019-11-03 07:19] LABS: ABG HCO3 16 mmol/L (21-25); ABG Oxygen Saturation 99.1 % (94-97); ABG PCO2 24 mmHg (35-45); ABG PH 7.42 (7.35-7.45); ABG PO2 128 mmHg (83-108); ABG TCO2 16 mmol/L (19-24)
[2019-11-03 07:24] LABS: Allen Test Performed? no
[2019-11-03 08:03] LABS: Glucose,Whole Blood 203 mg/dL (75-99)
--- NOTE | 2019-11-03 08:54 | CT ---
EXAMINATION TYPE: CT brain wo con DATE OF EXAM: 11/03/2019 COMPARISON: Prior head CT 10/29/2019 HISTORY: altered mental status CT DLP: 1154.4 mGycm Automated exposure control for dose reduction was used. CT brain performed utilizing departmental pro tocol FINDINGS: No interval change. Some inflammatory change suspected within the mastoid air cells. IMPRESSION: STABLE EXAM, NO ACUTE ABNORMALITY. AGE-RELATED CHANGES OF ATROPHY AND PROBABLE CHRONIC SMALL VESSEL I SCHEMIA. Mild inflammatory changes mastoid air cells
[2019-11-03] MEDS: CHLORHEXIDINE GLUCONATE 15 ML CUP MUCOUS MEM SCH (10:08)
[2019-11-03] MEDS: MAGNESIUM SULFATE-D5W PMX 1 GM in DEXTROSE/WATER 1 100ML.BAG IVPB SCH ×2 (10:09→10:11)
[2019-11-03] MEDS: PANTOPRAZOLE 40 MG/10 ML VIAL IV SCH (10:09)
[2019-11-03] MEDS: AMIODARONE 200 MG TAB PO SCH ×2 (10:09→20:02)
[2019-11-03] MEDS: ASPIRIN 81 MG PO SCH (10:09)
[2019-11-03] MEDS: POTASSIUM BICARBONATE/CIT AC 20 MEQ TABLET.EFF NG-TUBE SCH ×4 (10:09→14:24)
[2019-11-03] MEDS: SODIUM CHLORIDE 0.9% 500 ML 500 ML IV SCH ×3 (10:11→23:10)
--- NOTE | 2019-11-03 10:13 | P.PN ---
Subjective Patient is seen in follow-up for acute kidney injury. Remains intubated on 40% FiO2. Renal function is fairly stable. Sodium level 145. He is receiving tube feeding with free water flushes at 100 mL per hour. Currently undergoing an EEG. Vital signs are stable. General: The patient appeared well nourished and normally developed. HEENT: Head exam is unremarkable. Neck is without jugular venous distension. Intubated. LUNGS: Breath sounds decreased. HEART: Rate and Rhythm are regular. ABDOMEN: Soft, no distention noted. EXTREMITITES: No edema. Objective - Vital Signs Vital signs: Vital Signs Temp 100.8 F H 11/03/19 08:00 Pulse 96 11/03/19 09:00 Resp 33 H 11/03/19 09:00 BP 121/65 10/31/19 23:00 Pulse Ox 99 11/03/19 09:00 Intake & Output 11/02/19 11/03/19 11/03/19 18:59 06:59 18:59 Intake Total 2277.168 2427.126 590.255 Output Total 850 1950 1080 Balance 1427.168 477.126 -489.745 Intake: IV 143 248 38 .9 Sodium Chloride @ 10ml 110 40 10 /hr Piperacillin-Tazobactam 3 175 25 .375 gm In Sodium Chloride 0.9% 100 ml @ 25 mls/hr IVPB Q8H IN[facility] Rx#: [id number] Pressure Bag 33 33 3 Intake, IV Titration 64.168 69.126 12.255 Amount Insulin Regular 100 unit 64.168 69.126 12.255 In Sodium Chloride 0.9% 100 ml @ Per Protocol IV .Q0M INDU Rx#:[id number] Tube Feeding 770 910 140 Other 1300 1200 400 Output: Urine 850 750 80 Stool 1200 1000 Other: Voiding Method Indwelling Catheter Indwelling Catheter ABP, PAP, CO, CI - Last Documented Arterial Blood Pressure 98/51 - Labs CBC & Chem 7: 11/03/19 04:10 11/03/19 04:10 Labs: Abnormal Lab Results - Last 24 Hours (Table) 11/02/19 11/02/19 11/02/19 Range/Units 11:13 11:55 14:14 WBC (3.8-10.6) k/uL RBC (4.30-5.90) m/uL Hgb (13.0-17.5) gm/dL Hct (39.0-53.0) % MCV (80.0-100.0) fL MCHC (31.0-37.0) g/dL Plt Count (150-450) k/uL ABG pCO2 (35-45) mmHg ABG pO2 (83-108) mmHg ABG HCO3 (21-25) mmol/L ABG Total CO2 (19-24) mmol/L ABG O2 Saturation (94-97) % Potassium (3.5-5.1) mmol/L Chloride (98-107) mmol/L Carbon Dioxide (22-30) mmol/L BUN (9-20) mg/dL Glucose (74-99) mg/dL POC Glucose (mg/dL) 224 H 212 H 156 H (75-99) mg/dL Calcium (8.4-10.2) mg/dL 11/02/19 11/02/19 11/02/19 Range/Units 16:06 17:15 18:05 WBC (3.8-10.6) k/uL RBC (4.30-5.90) m/uL Hgb (13.0-17.5) gm/dL Hct (39.0-53.0) % MCV (80.0-100.0) fL MCHC (31.0-37.0) g/dL Plt Count (150-450) k/uL ABG pCO2 (35-45) mmHg ABG pO2 (83-108) mmHg ABG HCO3 (21-25) mmol/L ABG Total CO2 (19-24) mmol/L ABG O2 Saturation (94-97) % Potassium (3.5-5.1) mmol/L Chloride (98-107) mmol/L Carbon Dioxide (22-30) mmol/L BUN (9-20) mg/dL Glucose (74-99) mg/dL POC Glucose (mg/dL) 161 H 175 H 168 H (75-99) mg/dL Calcium (8.4-10.2) mg/dL 11/02/19 11/02/19 11/02/19 Range/Units 18:48 20:41 21:23 WBC (3.8-10.6) k/uL RBC (4.30-5.90) m/uL Hgb (13.0-17.5) gm/dL Hct (39.0-53.0) % MCV (80.0-100.0) fL MCHC (31.0-37.0) g/dL Plt Count (150-450) k/uL ABG pCO2 (35-45) mmHg ABG pO2 (83-108) mmHg ABG HCO3 (21-25) mmol/L ABG Total CO2 (19-24) mmol/L ABG O2 Saturation (94-97) % Potassium (3.5-5.1) mmol/L Chloride (98-107) mmol/L Carbon Dioxide (22-30) mmol/L BUN (9-20) mg/dL Glucose (74-99) mg/dL POC Glucose (mg/dL) 156 H 227 H 218 H (75-99) mg/dL Calcium (8.4-10.2) mg/dL 11/02/19 11/02/19 11/03/19 Range/Units 22:15 23:20 00:02 WBC (3.8-10.6) k/uL RBC (4.30-5.90) m/uL Hgb (13.0-17.5) gm/dL Hct (39.0-53.0) % MCV (80.0-100.0) fL MCHC (31.0-37.0) g/dL Plt Count (150-450) k/uL ABG pCO2 (35-45) mmHg ABG pO2 (83-108) mmHg ABG HCO3 (21-25) mmol/L ABG Total CO2 (19-24) mmol/L ABG O2 Saturation (94-97) % Potassium (3.5-5.1) mmol/L Chloride (98-107) mmol/L Carbon Dioxide (22-30) mmol/L BUN (9-20) mg/dL Glucose (74-99) mg/dL POC Glucose (mg/dL) 224 H 181 H 178 H (75-99) mg/dL Calcium (8.4-10.2) mg/dL 11/03/19 11/03/19 11/03/19 Range/Units 00:59 02:55 04:10 WBC 11.4 H (3.8-10.6) k/uL RBC 2.60 L (4.30-5.90) m/uL Hgb 8.3 L (13.0-17.5) gm/dL Hct 27.1 L (39.0-53.0) % MCV 104.4 H (80.0-100.0) fL MCHC 30.6 L (31.0-37.0) g/dL Plt Count 783 H (150-450) k/uL ABG pCO2 (35-45) mmHg ABG pO2 (83-108) mmHg ABG HCO3 (21-25) mmol/L ABG Total CO2 (19-24) mmol/L ABG O2 Saturation (94-97) % Potassium (3.5-5.1) mmol/L Chloride (98-107) mmol/L Carbon Dioxide (22-30) mmol/L BUN (9-20) mg/dL Glucose (74-99) mg/dL POC Glucose (mg/dL) 195 H 142 H (75-99) mg/dL Calcium (8.4-10.2) mg/dL 11/03/19 11/03/19 11/03/19 Range/Units 04:10 04:15 05:07 WBC (3.8-10.6) k/uL RBC (4.30-5.90) m/uL Hgb (13.0-17.5) gm/dL Hct (39.0-53.0) % MCV (80.0-100.0) fL MCHC (31.0-37.0) g/dL Plt Count (150-450) k/uL ABG pCO2 (35-45) mmHg ABG pO2 (83-108) mmHg ABG HCO3 (21-25) mmol/L ABG Total CO2 (19-24) mmol/L ABG O2 Saturation (94-97) % Potassium 3.3 L (3.5-5.1) mmol/L Chloride 121 H (98-107) mmol/L Carbon Dioxide 18 L (22-30) mmol/L BUN 25 H (9-20) mg/dL Glucose 123 H (74-99) mg/dL POC Glucose (mg/dL) 130 H 140 H (75-99) mg/dL Calcium 7.0 L (8.4-10.2) mg/dL 11/03/19 11/03/19 11/03/19 Range/Units 06:18 07:11 07:16 WBC (3.8-10.6) k/uL RBC (4.30-5.90) m/uL Hgb (13.0-17.5) gm/dL Hct (39.0-53.0) % MCV (80.0-100.0) fL MCHC (31.0-37.0) g/dL Plt Count (150-450) k/uL ABG pCO2 24 L (35-45) mmHg ABG pO2 128 H (83-108) mmHg ABG HCO3 16 L (21-25) mmol/L ABG Total CO2 16 L (19-24) mmol/L ABG O2 Saturation 99.1 H (94-97) % Potassium (3.5-5.1) mmol/L Chloride (98-107) mmol/L Carbon Dioxide (22-30) mmol/L BUN (9-20) mg/dL Glucose (74-99) mg/dL POC Glucose (mg/dL) 197 H 193 H (75-99) mg/dL Calcium (8.4-10.2) mg/dL 11/03/19 Range/Units 08:01 WBC (3.8-10.6) k/uL RBC (4.30-5.90) m/uL Hgb (13.0-17.5) gm/dL Hct (39.0-53.0) % MCV (80.0-100.0) fL MCHC (31.0-37.0) g/dL Plt Count (150-450) k/uL ABG pCO2 (35-45) mmHg ABG pO2 (83-108) mmHg ABG HCO3 (21-25) mmol/L ABG Total CO2 (19-24) mmol/L ABG O2 Saturation (94-97) % Potassium (3.5-5.1) mmol/L Chloride (98-107) mmol/L Carbon Dioxide (22-30) mmol/L BUN (9-20) mg/dL Glucose (74-99) mg/dL POC Glucose (mg/dL) 203 H (75-99) mg/dL Calcium (8.4-10.2) mg/dL Microbiology - Last 24 Hours (Table) 10/28/19 14:00 Blood Culture - Preliminary Blood No Growth after 120 hours Assessment and Plan Plan: Assessment: 1. Acute kidney injury secondary to ATN secondary to severe intravascular volume depletion due to hyperglycemia and further worsened with hypotension. Creatinine peaked at 2.7 this admission and is 1.07 today. 2. Rule out chronic kidney disease. Creatinine was in the range of 1.2-1.5 in July 2018. No proteinuria on UA. 3. Severe metabolic acidosis secondary to DKA. Improved. 4. DKA s/p insulin drip. 5. Hypernatremia secondary to lack of oral water intake. Stable. 6. Possible pneumonia maintained on antibiotics. 7. Anoxic brain injury. 8. Hypokalemia from poor intake. Being replaced. 9. Respiratory alkalosis with metabolic compensation. Plan: Maintain free water flushes. Currently receiving 100 mL per hour. Potassium being replaced. Overall prognosis poor.
[2019-11-03 10:42] LABS: Glucose,Whole Blood 129 mg/dL (75-99)
[2019-11-03] MEDS: HYDROmorphone 0.5 MG/0.5 ML SYRINGE IVP PRN ×4 (10:57→22:45)
[2019-11-03 12:11] LABS: Glucose,Whole Blood 179 mg/dL (75-99)
[2019-11-03 12:29] LABS: ABG Base Excess -6.6 mmol/L; ABG HCO3 18 mmol/L (21-25); ABG Oxygen Saturation 97.8 % (94-97); ABG PCO2 28 mmHg (35-45); ABG PH 7.42 (7.35-7.45); ABG PO2 92 mmHg (83-108); ABG TCO2 19 mmol/L (19-24)
[2019-11-03 12:31] LABS: Allen Test Performed? no
[2019-11-03 13:07] LABS: Glucose,Whole Blood 225 mg/dL (75-99)
[2019-11-03] MEDS: INSULIN REGULAR 100 UNIT in SODIUM CHLORIDE 0.9% 100 ML IV SCH (13:07)
--- NOTE | 2019-11-03 14:45 | P.PN ---
Subjective Progress Note Date: 11/03/19 Principal diagnosis: Hypovolemic shock, possible septic shock secondary to abdominal sepsis. 80-year-old male patient known history of dementia, diabetes hypertension osteoarthritis in addition to abdominal aortic aneurysm, presented to the ED with altered mentation and severe dehydration. The patient's was noted to have elevated blood sugars at home which prompted this hospital visit. He was unable to provide any history at time of admission. He was confused and disoriented and his condition was progressively getting worse over this past few weeks. He apparently had generalized weakness, falls, and he was not seeking any medical attention. He has Alzheimer's dementia. His has Alzheimer's dementia also. Apparently his oral intake has been minimal and the patient was drinking only 4 L of soda on a daily basis. He has been noncompliant his diabetic medications also. A blood sugar of more than 1800. Sodium was 116. Potassium was 5.7 with a chloride of 74 and a serum bicarbonate 8 with an anion gap of 34. Creatinine was 2.4 with a BUN of 33. The serum lactate was 11.7. Troponin was 0.8. Phosphorus was 8.8. Lipase was 229. UA showed +4 glucose and the serum acetone was negative. The patient received a total of 4 L of IV fluids in the emergency department. He was started on an insulin drip. Currently the patient is on half-normal saline with 20 mEq of potassium. The patient metabolic acidosis improving. Based on the follow-up blood gases the pH was 7.0 and septal 7.13. Serum bicarb is also on the rise. The serum pCO2 is 26. Troponin 38. This was done and FiO2 of 36%. Sodium level improved and septal 131 and a potassium level is at 3.8. Anion gap is improving is down to 28. Creatinine is still at 2.1. Most recent blood sugar shows that the sugar is still elevated above 600 with a serum measurement of 1230. The chest x-ray shows some subsegmental atelectasis in the right lower lobe. CAT scan of the brain shows no evidence of any acute hemorrhage. There is some degenerative changes and nonspecific white matter changes consistent with remote ischemia. EKG showing sinus tachycardia along with Q waves over the anteroseptal leads consistent with an old infarct. Heart rate is around 102. On today's evaluation of 10/22/2019, the patient is still lethargic and somnolent and encephalopathic. He is unable to volunteer any history. He has dementia. Furthermore there has been significant metabolic disturbances, leading to his impaired mentation. In terms of his blood sugar control, the patient has been on insulin drip at 3 units an hour. His IV fluids have been running in the form of D5 half-normal saline along with 20 mEq of potassium at the rate of 150 mL an hour. The patient was receiving another 2 L of IV fluid bolus based on the fact that it looks quite dry with very dry mucosal membranes on today's evaluation. In terms of his blood sugar control, the blood sugar was steadily going down and after the blood sugar went down below 300 was switched him to a D5 half-normal saline solution. His anion gap is at 10. The serum bicarb is at 18. His lactic acid level has dropped down to 6.0. His troponin peaked at 2.2. Denies having any chest pain. Note that his based on troponin was at 0.8. His EKG showed old Q-wave changes over the anteroseptal leads and echocardiac Tito was done today and the patient was found to have a ejection fraction estimated to be around 30-35% along with anteroseptal and apical hypokinesis. No evidence of an aortic valve stenosis. Unable to estimate the right-sided pressures. Unable to have a good visualization of the rest of the valves. His white cell count of 15.4. His antibiotic coverage includes a combination of Rocephin and Zithromax and Diflucan for now. There is some erythema along the penile tip and the Maradiaga catheter is in place. Repeat chest x-ray from today shows atelectatic changes in the right lower lobe. No other significant abnormalities have been noted. The patient is currently on 4 L of oxygen by nasal cannula with a pulse ox of 98%. He still has some underlying sinus tachycardia. On today's evaluation of 10/23/2019 the patient's condition decompensated. I have already contacted the son and updated them on his father's condition. Note that by yesterday afternoon, the patient became progressively more restless, agitated, shortness of breath, and he was also indicating the possibility of abdominal distention and pain. He was hard to communicate with him as the patient was not providing any meaningful information and he was altered mentally. Nevertheless, we suspected that the patient was having increased abdominal pain and discomfort. At that point, decided to insert an NG tube and immediately approximately a liter of gastric juice was obtained as a return. Abdomen remained quite tender and distended. At that point, the patient was also becoming more hypotensive. He was given more IV fluids. He was intubated and placed on a mechanical ventilator. Post intubation, the patient became hypotensive and he was started on IV pressors. Blood gases was noted. Chest x- ray was noted. The patient was developing a right lower lobe pulmonary infiltration. He was taken down for a CAT scan of the abdomen and pelvis and the CAT scan showed evidence of a infiltrate in the right lung base and fatty i nfiltration of the liver and some multiple calcified gallstones and the bile ducts were not dilated. At the same time, the CAT scan showed a fusiform 4.4 cm lower abdominal aortic aneurysm. There was no evidence of any retroperitoneal lymphadenopathy. There was multiple diverticula in the sigmoid colon and multiple dilated air fluid filled loops of the small bowel and the small bowel was dilated up to 4 cm in size. There was also mild wall thickening of the ascending colon. There was also minimal fat stranding around the sigmoid colon. There was osteoarthritis of the right hip. Antibiotics were modified and the patient was started on IV Zosyn. This morning, the patient is sedated with propofol at 20 g. This is to be switched to Versed at the patient's triglyceride level came up above 500. The patient is receiving IV fluids in the form of normal saline at rate of 100 mL an hour. His urine output is diminished and the patient's creatinine is at 2.5. The neck fluid balance over the past 24 hours has been +5.3 L. The patient is currently on norepinephrine infusion running at 0.4 mcg/kg per minute. The patient is also on insulin drip at 9 units an hour. Noted the blood sugar control is improved and the patient's lactic acid level was also improving it was down to 3.7. During the course of this treatment, the patient developed also a shock liver with elevated AST and ALT. He developed an acute kidney injury on top of his chronic kidney failure with a creatinine maxing at 2.7 down to 2.5. The patient is currently on a mechanical ventilator on assist control mode at the rate of 28 with tidal volume of 500 and FiO2 of 60% with a PEEP of 5. Morning blood gases showed a pH of 7.39 with a pCO2 of 26 and pO2 of 185. Morning chest x-ray showed right lower lobe pulmonary infiltration and subsequently a triple-lumen catheter was inserted and the supportive living catheter was inserted without any complications. Surgical consultation was also obtained regarding the abdominal findings. On 10/24/2019, the patient remains critically ill. The patient remains in shock and this is most likely a septic shock following an acute hypovolemic shock. The patient initially presented with HHS. Subsequently the patient started acting septic and the source is most likely the abdomen. The patient had a elevated TROPONIN level. Lactic acid levels were elevated and the patient had abdominal pain and distention. NG tube was inserted and a CAT scan of the abdomen was done that showed findings suggesting small bowel obstruction and some inflammatory changes involving the ascending colon and the sigmoid. Nevertheless, there was no evidence of any acute abdomen or pneumoperitoneum with ischemic bowel. The patient was kept on Zosyn and Flagyl was added. He did have difficulties with his hemodynamics and the patient was on and off becoming hypotensive and he was getting IV fluids to maintain a CVP above 10. The patient is currently receiving normal saline at the rate of 100 mL an hour. He is also on vasopressin at physiologic dose of 0.03 units per minute and the patient is on norepinephrine running at 0.38 g per KG per minute. Abdomen is still slightly distended and the patient is a bit tender and he can grimace upon abdominal [id number] white him being sedated with Versed which is running at 6 mg an hour. Gen. surgery will be asked to evaluate this patient. NG tube is in place and output over the past 24 hours has been in the order of 400 mL of gastric material. No bowel movements yet. He is having episodes of fever and the patient has had a temperature max of 11.1 and a temperature is down to 99.8. The patient had 2 additional sets of blood cultures sent patient was given a dose of vancomycin yesterday. This was done pending further cultures. Meanwhile, the patient remains on a mechanical ventilator. This morning, he remained on assist control mode with a tidal volume of 500 and FiO2 of 40% with a PEEP of 5. Chest x-ray is showing stable bilateral pulmonary infiltrates and atelectatic changes in lung bases. ET tube in good location so in the OG-tube. Her blood gases showed a pH of 7.39 with a pCO2 of 25 and pO2 of 67 and this was on above-mentioned ventilator setting. Lactic acid level is gradually dropped down to 3.0. The patient has shock liver. LFTs are considerably abnormal and the numbers are improving. AST is down to 2153 and ALT is down to 1107. As stated, neck yesterday dropped down to 3.2, the creatinine is still elevated at 2.2 with a BUN of 39 and the patient has a mild anion gap metabolic acidosis with a gap of 11 which is improved and his serum bicarbonate of 15. On today's evaluation of 10/25/2019, the patient remains critically ill. Remains intubated on a mechanical ventilator and remains sedated. On today's evaluation, he had an assist-control mode of ventilation and the patient is at the rate of 28 with a tidal volume of 500 and FiO2 of 50% with a PEEP of 5. The blood gases Show a pH of 7.51 with a pCO2 of 28 and pO2 of 65 and I think this is a essentially respiratory alkalosis as the patient's metabolic acidosis has recovered and the patient's serum bicarbonate was up to 22 while being given a bicarb infusion. The chest x-ray from today shows no significant interval change compared to yesterday's chest x-ray. There is a elevation of the right hemidiaphragm. The ET tube and NG tube remains in place. There is a left subclavian triple-lumen catheter in place. In my opinion, the patient remains quite septic. The patient is still having episodes of fever. The patient remains in shock and pressor dependent. Vasopressin is running at physiologic dose and the norepinephrine infusion has been drop down to 0.3 g per KG per minute. I had a discussion with the general surgeon and will going to continue the conservative approach. Patient is considered to be a high surgical risk for even exploration. Meanwhile, NG tube is in place and has drained approximately 900 mL of gastric material over the past 24 hours. Abdomen is slightly improved and less distended compared to yesterday. There is some mild direct tenderness without rebound tenderness. The patient is hypoactive in terms of his bowel sounds. Extremities abdomen is being done for a small bowel follow-through. The patient remains on insulin which is running at 2.5 units an hour for blood sugar control. The patient is on bicarb drip that he'll be taken off and this will decision to half-normal saline as the patient has also developed some hypernatremia. Serum bicarb is up to 21. He is having episodes of fever still. All of the repeat blood cultures came back negative. Hemoglobin is at 12.5. White cell count is at 10.7. Platelet count has dropped down to 94% is stable compared to yesterday. On 10/26/2019, the patient is currently being seen for a follow-up intubated on a mechanical ventilator in the intensive care unit. The patient remains sedated with Versed running at 6 mg an hour. While sedated and calm and comfortable and episodically requiring Dilaudid for pain control. He is on assist control rate of 22 with a tidal volume of 500 and FiO2 of 40% with a PEEP of 5. Blood gases showed a pH of 7.30 with a pCO2 of 32 and pO2 of 79 and the chest x-ray shows moderate-sized bilateral pleural effusions right more than left. ET tube is in a good location. NG tube is in good location. Output from the NG has slowed down and the patient is producing approximately 300-400 mL of NG output over the past 24 hours. The initial small bowel follow-through was consistent with small bowel obstruction as there was no passage of contrast past the jejunum. S ubsequent x-ray of the abdomen was done this morning and contrast has made it to the colon and as such there is probably there is no evidence of anatomic obstruction and this could be essentially an ileus. The patient remains nothing by mouth. The patient will be started on TPN for nutritional support. White cell count of 9.6. The sodium is at 149. BNP is 44 with a creatinine of 1.8 which is improved compared to yesterday. Most recent lactic acid level is down to 2.8. The patient was a shock liver and the AST/ALT levels are also improving based on yesterday's lab. No significant fever episodes since yesterday evening and the patient is not spiking any further temperature. Cultures are negative and the patient remains on a combination of Zosyn and Flagyl. Patient was reevaluated today on 10/27/19, remains in the ICU, intubated and mechanically ventilated. Patient's ventilator settings are assist control rate of 22 tidal volume is 500, FiO2 is 40%, PEEP is 5. ABG showed a pO2 of 80 pCO2 of 34 pH of 7.44. His drips include IV fluid at D5W 50 mL/h, TPN, Versed at 2 mg per hour, insulin at 5 units per hour, vasopressin at 0.03 units per minute. He is also on norepinephrine. 13 mcg/kg/m. Patient remains on Flagyl and Zosyn for presumptive abdominal sepsis. His CVP today is 5. Patient did have a mucoid bowel movement last night. Chest x-ray shows bilateral pleural ef fusions, right more so than left. Labs today showed relatively normal CBC, WBC count is 10.1 hemoglobin is 10.4. Electrolytes are normal sodium is improving down to 147 BUN is 42 creatinine is 1.54. Pro-calcitonin remains elevated at 8.54. Liver enzymes are improving. Patient was reevaluated today on 10/28/19, remains in the ICU, intubated and mechanically ventilated. His ventilator settings are assist control rate of 22 tidal volume is 500 FiO2 is 40% PEEP is 5. ABG showed a pO2 of 76 pCO2 of 31 and pH of 7.44 patient is on multiple drips including TPN at 10 5 mL per hour, and I cut it down to 80 mL per hour. He is on D5W which I have discontinued. He is also on insulin 21 units per hour. Vasopressin at 0.03 units per minute. Norepinephrine at 0.03 mcg/kg/MIN. Renal functioning is improving. And his urine output seems to be about 100 mL per hour. Chest x-ray continues to show right lower lobe atelectasis, consolidation, and possibly a small right-sided pleural effusion. Patient is sedated, however I have instructed the nurses to hold Versed, and assess his mental status today. Patient remains on Versed at 2 mg per hour. CBC is basically unremarkable hemoglobin is 9.4 WBC count is 12.7. BUN is 43 creatinine 1.38, steadily improving. Potassium is a bit low at 3.4, being corrected as per protocol. Pro-calcitonin remains high, and his chest x- ray is suggestive of right lower lobe consolidation. Blood cultures and urine cultures remain negative so far. Reevaluated today on 10/29/19, patient remains in the ICU, intubated and mechanically ventilated. Patient is on assist control rate of 22 tidal volume is 500 FiO2 is 40% and PEEP is 5. ABG showed a pO2 of 78 pCO2 of 33 and pH of 7.40. Patient has been off sedation for the last 24 hours. He only received 2 doses of Dilaudid last night, and he is off propofol. Remains on vasopressin at 0.03 units per minute, he is off norepinephrine, and his blood pressures seems to be holding nicely. IV fluid is at KVO. Patient is now on enteral feeding and off TPN completely. Patient had some bloody mucoid bowel movement, and it could be tested for C. diff, chest x-ray continues to show stable bibasilar ate lectasis or airspace disease with pleural effusions/small . Labs were reviewed WBC count is 14.2 hemoglobin is 9.5 electrolytes are relatively normal except for slight elevated sodium of 146. BUN continues to improve it is 45 today, and creatinine is 1.30 better compared to the last few days. Last pro-calcitonin was 8.54. Patient was reevaluated today on 10/30/19, remains in the intensive care unit, off sedation for the last 48 hours, continues to have no significant neurological response. CT of the brain was nondiagnostic. EEG was attempted yesterday, but there was excessive technical artifact. Hence it would be repeated today. Patient has a Glascow coma scale of 3. Obviously the patient is in profound coma. His narcotics and sedatives remain on hold, and he'll be reassessed again by neurology, may have to consider comfort care measures on this patient if he continues to have no significant neurological recovery. Patient is on assist control rate of 22 tidal volume is 500 FiO2 is 40% PEEP is 5. ABG showed a pO2 of 108 pCO2 of 30 pH of 7.43. Drips-medrano he is on insulin at 7.5 units per hour, he is off vasopressin and off norepinephrine he is on amiodarone 0.5 mg/m. WBC count is 15.4 hemoglobin is 10.1, BUN is 40 creatinine is 1.15 steadily improving. Reevaluated today on 10/31/19, patient remains in the intensive care unit. Remains intubated and mechanically ventilated. He is on assist control rate of 22, tidal volume is 500 FiO2 is 40% PEEP is 5. Patient remains comatose, unresponsive to any stimuli. Sedation and narcotics have been on hold for the last 3 days. And again no evidence of any neurological recovery noted in this patient. Pupils remain reactive. And sluggish. Patient does not respond to pain except occasional grimacing. Remains on insulin drip at 9 units per hour he is also on amiodarone 0.5 mg/m, and his IV fluid at KVO. WBC count is 14.4 hemoglobin is 9.8. ABG showed a pO2 of 104 pCO2 of 29 pH of 7.44 Reevaluated today on 11/01/19, patient remains in the ICU, remains intubated and mechanically ventilated. Ventilator settings are assist control rate of 22 tidal volume 500 FiO2 40% PEEP of 5 ABG showed a pO2 of 90 pCO2 29 pH of 7.44 patient is not requiring any drips at present except insulin drip at 6 units per hour. Patient remains unresponsive, grimaces only to deep painful stimuli. All his labs including CBC, basic metabolic profile, ABG, were all reviewed and they seem to be basically unremarkable. However the patient continues to have no neurological recovery and remains comatose, no change in the last 24 hours. Today I recommended stopping even Dilaudid which is a minimal dose given every 6 hours when necessary for pain but the patient is obviously not in pain. Reevaluated today on 11/02/19, patient remains in the ICU. Remains intubated and mechanically ventilated. He is presently requiring a bit of Dilaudid for intermittent episodes of biting on the tube and gets agitated but unresponsive. Dilaudid seems to help, and is given only once every 4 hours as needed. Patient is on assist control rate of mechanical ventilation 22 tidal volume is 500 FiO2 is 40% and PEEP of 5. His ABG showed a pO2 of 97 pCO2 of 26 pH of 7.44. Patient remains on insulin drip at 6 units per hour, and his IV fluid at KVO. Again he is receiving Dilaudid every 4 hours as needed for extreme agitation and biting on the tube with seems to calm him down. Otherwise his overall neurological status is about the same. CBC is relatively normal hemoglobin is down to 8.2. Basic metabolic profile is normal, bicarb is 18. BUN is 30 creatinine is 1.21. Hence I will cautiously hydrate the patient. Chest x-ray continues to show small right-sided pleural effusion and bibasilar atelectasis or airspace disease Reevaluated today on 11/03/19. Patient remains in the ICU, however, I was quite surprised to see the patient awake, a bit agitated on the ventilator, however I was able to communicate with the patient and he was following simple instructions like squeezing hands, wiggling toes, closing eyes, and I went ahead and recommended that the patient goes on a trial of pressure support of 8 and CPAP. His follow-up ABG after 45 minutes on this mode seem to be quite reasonable, and his weaning parameters were also reasonable, hence I recommended extubation on this patient. Of course his overall status is marginal, but I felt this is our window to extubate the patient and liberalize from mechanical ventilation otherwise he will end up with more sedation medications, and more mental status change. His ventilator settings with assist control rate of 22 tidal volume is 500 FiO2 40% and PEEP is 5. Chest x-ray continues to show right lower lobe atelectasis/opacity. CT of the brain was negative again. His urine output was excellent. Patient is stooling. And his labs were noted to be relatively unremarkable. With significant improvement in his renal profile over the last few days. CPAP ABG showed a pO2 of 92 pCO2 of 28 pH of 7.42. Objective - Vital Signs Vital signs: Vital Signs Temp 100.4 F H 11/03/19 12:00 Pulse 100 11/03/19 14:00 Resp 32 H 11/03/19 14:00 BP 121/65 10/31/19 23:00 Pulse Ox 99 11/03/19 14:00 Intake & Output 11/02/19 11/03/19 11/03/19 18:59 06:59 18:59 Intake Total 2277.168 2427.126 1353.372 Output Total 850 1950 1355 Balance 1427.168 477.126 -1.628 Weight 88.2 kg Intake: IV 143 248 90 .9 Sodium Chloride @ 10ml 110 40 50 /hr Piperacillin-Tazobactam 3 175 25 .375 gm In Sodium Chloride 0.9% 100 ml @ 25 mls/hr IVPB Q8H INDU Rx#: [id number] Pressure Bag 33 33 15 Intake, IV Titration 64.168 69.126 43.372 Amount Insulin Regular 100 unit 64.168 69.126 43.372 In Sodium Chloride 0.9% 100 ml @ Per Protocol IV .Q0M INDU Rx#:[id number] Tube Feeding 770 910 420 Other 1300 1200 800 Output: Urine 850 750 355 Stool 1200 1000 Other: Voiding Method Indwelling Catheter Indwelling Catheter Indwelling Catheter ABP, PAP, CO, CI - Last Documented Arterial Blood Pressure 155/54 - Exam Physical Exam: Revealed an 79-year-old white male, awake, bit agitated, but able to follow instructions. Head: Atraumatic, normocephalic. Endotracheal tube and orogastric tube are intact. HEENT:[Neck is supple.] [No neck masses.] [No thyromegaly.] [No JVD.] Pinpoint pupils. Chest: [Symmetrical chest expansion, diminished breath sounds at the bases, no rhonchi and no wheezes.] Cardiac Exam: [Normal S1 and S2, no S3 gallop, no murmur.] Abdomen: [Flat, soft, nontender, positive bowel sounds. No rebound, no guarding.] Extremities: [No clubbing, 1+ bipedal edema and chronic venous stasis changes bilaterally. Chronic superficial ulcerations of lower extremities noted. Neurological Exam: Awake, follows simple instructions, patient able to close eyes, wiggle toes, squeezing hands. Seems to be quite appropriate. Psychiatric: Blunted affect, otherwise could not be assessed.. Skin: Superficial ulcerations lower extremities and chronic venous stasis changes. Coccygeal ulceration present - Labs CBC & Chem 7: 11/03/19 04:10 11/03/19 13:00 Labs: Abnormal Lab Results - Last 24 Hours (Table) 11/02/19 11/02/19 11/02/19 Range/Units 16:06 17:15 18:05 WBC (3.8-10.6) k/uL RBC (4.30-5.90) m/uL Hgb (13.0-17.5) gm/dL Hct (39.0-53.0) % MCV (80.0-100.0) fL MCHC (31.0-37.0) g/dL Plt Count (150-450) k/uL ABG pCO2 (35-45) mmHg ABG pO2 (83-108) mmHg ABG HCO3 (21-25) mmol/L ABG Total CO2 (19-24) mmol/L ABG O2 Saturation (94-97) % Potassium (3.5-5.1) mmol/L Chloride (98-107) mmol/L Carbon Dioxide (22-30) mmol/L BUN (9-20) mg/dL Glucose (74-99) mg/dL POC Glucose (mg/dL) 161 H 175 H 168 H (75-99) mg/dL Calcium (8.4-10.2) mg/dL 11/02/19 11/02/19 11/02/19 Range/Units 18:48 20:41 21:23 WBC (3.8-10.6) k/uL RBC (4.30-5.90) m/uL Hgb (13.0-17.5) gm/dL Hct (39.0-53.0) % MCV (80.0-100.0) fL MCHC (31.0-37.0) g/dL Plt Count (150-450) k/uL ABG pCO2 (35-45) mmHg ABG pO2 (83-108) mmHg ABG HCO3 (21-25) mmol/L ABG Total CO2 (19-24) mmol/L ABG O2 Saturation (94-97) % Potassium (3.5-5.1) mmol/L Chloride (98-107) mmol/L Carbon Dioxide (22-30) mmol/L BUN (9-20) mg/dL Glucose (74-99) mg/dL POC Glucose (mg/dL) 156 H 227 H 218 H (75-99) mg/dL Calcium (8.4-10.2) mg/dL 11/02/19 11/02/19 11/03/19 Range/Units 22:15 23:20 00:02 WBC (3.8-10.6) k/uL RBC (4.30-5.90) m/uL Hgb (13.0-17.5) gm/dL Hct (39.0-53.0) % MCV (80.0-100.0) fL MCHC (31.0-37.0) g/dL Plt Count (150-450) k/uL ABG pCO2 (35-45) mmHg ABG pO2 (83-108) mmHg ABG HCO3 (21-25) mmol/L ABG Total CO2 (19-24) mmol/L ABG O2 Saturation (94-97) % Potassium (3.5-5.1) mmol/L Chloride (98-107) mmol/L Carbon Dioxide (22-30) mmol/L BUN (9-20) mg/dL Glucose (74-99) mg/dL POC Glucose (mg/dL) 224 H 181 H 178 H (75-99) mg/dL Calcium (8.4-10.2) mg/dL 11/03/19 11/03/19 11/03/19 Range/Units 00:59 02:55 04:10 WBC 11.4 H (3.8-10.6) k/uL RBC 2.60 L (4.30-5.90) m/uL Hgb 8.3 L (13.0-17.5) gm/dL Hct 27.1 L (39.0-53.0) % MCV 104.4 H (80.0-100.0) fL MCHC 30.6 L (31.0-37.0) g/dL Plt Count 783 H (150-450) k/uL ABG pCO2 (35-45) mmHg ABG pO2 (83-108) mmHg ABG HCO3 (21-25) mmol/L ABG Total CO2 (19-24) mmol/L ABG O2 Saturation (94-97) % Potassium (3.5-5.1) mmol/L Chloride (98-107) mmol/L Carbon Dioxide (22-30) mmol/L BUN (9-20) mg/dL Glucose (74-99) mg/dL POC Glucose (mg/dL) 195 H 142 H (75-99) mg/dL Calcium (8.4-10.2) mg/dL 11/03/19 11/03/19 11/03/19 Range/Units 04:10 04:15 05:07 WBC (3.8-10.6) k/uL RBC (4.30-5.90) m/uL Hgb (13.0-17.5) gm/dL Hct (39.0-53.0) % MCV (80.0-100.0) fL MCHC (31.0-37.0) g/dL Plt Count (150-450) k/uL ABG pCO2 (35-45) mmHg ABG pO2 (83-108) mmHg ABG HCO3 (21-25) mmol/L ABG Total CO2 (19-24) mmol/L ABG O2 Saturation (94-97) % Potassium 3.3 L (3.5-5.1) mmol/L Chloride 121 H (98-107) mmol/L Carbon Dioxide 18 L (22-30) mmol/L BUN 25 H (9-20) mg/dL Glucose 123 H (74-99) mg/dL POC Glucose (mg/dL) 130 H 140 H (75-99) mg/dL Calcium 7.0 L (8.4-10.2) mg/dL 11/03/19 11/03/19 11/03/19 Range/Units 06:18 07:11 07:16 WBC (3.8-10.6) k/uL RBC (4.30-5.90) m/uL Hgb (13.0-17.5) gm/dL Hct (39.0-53.0) % MCV (80.0-100.0) fL MCHC (31.0-37.0) g/dL Plt Count (150-450) k/uL ABG pCO2 24 L (35-45) mmHg ABG pO2 128 H (83-108) mmHg ABG HCO3 16 L (21-25) mmol/L ABG Total CO2 16 L (19-24) mmol/L ABG O2 Saturation 99.1 H (94-97) % Potassium (3.5-5.1) mmol/L Chloride (98-107) mmol/L Carbon Dioxide (22-30) mmol/L BUN (9-20) mg/dL Glucose (74-99) mg/dL POC Glucose (mg/dL) 197 H 193 H (75-99) mg/dL Calcium (8.4-10.2) mg/dL 11/03/19 11/03/19 11/03/19 Range/Units 08:01 10:40 12:09 WBC (3.8-10.6) k/uL RBC (4.30-5.90) m/uL Hgb (13.0-17.5) gm/dL Hct (39.0-53.0) % MCV (80.0-100.0) fL MCHC (31.0-37.0) g/dL Plt Count (150-450) k/uL ABG pCO2 (35-45) mmHg ABG pO2 (83-108) mmHg ABG HCO3 (21-25) mmol/L ABG Total CO2 (19-24) mmol/L ABG O2 Saturation (94-97) % Potassium (3.5-5.1) mmol/L Chloride (98-107) mmol/L Carbon Dioxide (22-30) mmol/L BUN (9-20) mg/dL Glucose (74-99) mg/dL POC Glucose (mg/dL) 203 H 129 H 179 H (75-99) mg/dL Calcium (8.4-10.2) mg/dL 11/03/19 11/03/19 11/03/19 Range/Units 12:27 13:00 13:06 WBC (3.8-10.6) k/uL RBC (4.30-5.90) m/uL Hgb (13.0-17.5) gm/dL Hct (39.0-53.0) % MCV (80.0-100.0) fL MCHC (31.0-37.0) g/dL Plt Count (150-450) k/uL ABG pCO2 28 L (35-45) mmHg ABG pO2 (83-108) mmHg ABG HCO3 18 L (21-25) mmol/L ABG Total CO2 (19-24) mmol/L ABG O2 Saturation 97.8 H (94-97) % Potassium 3.4 L (3.5-5.1) mmol/L Chloride (98-107) mmol/L Carbon Dioxide (22-30) mmol/L BUN (9-20) mg/dL Glucose (74-99) mg/dL POC Glucose (mg/dL) 225 H (75-99) mg/dL Calcium (8.4-10.2) mg/dL Microbiology - Last 24 Hours (Table) 10/28/19 14:00 Blood Culture - Preliminary Blood No Growth after 120 hours Assessment and Plan Assessment: Impression: Acute hypoxic respiratory failure secondary to hypovolemic and septic shock. Acute abdominal sepsis, small bowel ileus/obstruction, remains on Zosyn and Flagyl. Resolved. Possible right lower lobe pneumonia, hospital-acquired or could be aspiration related. Acute hyperosmolar nonketotic diabetic syndrome with profound hypovolemia and volume depletion/dehydration. Acute kidney injury secondary to hypovolemia and possible septic shock with acute tubular necrosis. Resolved Altered mental status on presentation secondary to hyperosmolar nonketotic state. Mental status is not showing any improvement. History of Alzheimer's dementia Type 2 diabetes Pseudohyponatremia on presentation secondary to severe hyperglycemia. 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 History of 4.6 cm distal abdominal aortic aneurysm and previous iliac stent the graft placement. Acute shock liver secondary to hypotension on presentation. Improving. History of ischemic cardiomyopathy and LV dysfunction, ejection fraction of 30%. Severe lactic acidosis on presentation most likely secondary to abdominal sepsis and ischemic bowel. Coma, resolved Recommendation: Patient will be given a trial of pressure support and CPAP, and we'll likely proceed to extubation. Depending on his weaning parameters, and depending on CPAP ABG. Minimize sedation and sedative medications as much as possible.. Continue IV fluids. Hold enteral feeding postextubation. Continue GI and DVT prophylaxis. Continue insulin. Continue antibiotics/Zosyn and Flagyl. Neurologically, it was surprising to see the patient is more awake today and responsive, and as of yesterday the patient was unresponsive whatsoever. We will continue to follow and we'll closely monitor in the ICU even if extubated today. Critical care time is 35 minutes Time with Patient: Greater than 30
[2019-11-03 15:20] LABS: Glucose,Whole Blood 140 mg/dL (75-99)
[2019-11-03] MEDS: FLUCONAZOLE IN NACL,ISO-OSM 200 MG in SALINE 1 100ML.BAG IVPB SCH (15:41)
[2019-11-03 16:03] LABS: Glucose,Whole Blood 136 mg/dL (75-99)
--- NOTE | 2019-11-03 16:30 | EEG ---
ELECTROENCEPHALOGRAM REPORT DATE OF SERVICE: 11/03/2019 HISTORY: This is a followup EEG performed on an 79-year-old gentleman who came in with nonketotic hyperosmolar coma. He was being unresponsive to stimulation and off sedation from the ventilator. Over the interim of time he has now had a definite improvement clinically where he has spontaneous eye opening and tracks. TECHNICAL REPORT: This is an inpatient EEG performed on the [employer] EEG monitor with electrodes placed according to the International 10-20 system and a single EKG channel. Simultaneous video EEG monitoring was performed. This EEG was reviewed in both longitudinal bipolar common average referential and transverse montages. The recording begins with the patient appears awake. There is excessive muscle artifact prominent over the frontal temporal head region on the left. The awake background appears low-voltage between 6-7 hertz initially and then as the study progresses the posterior dominant rhythm increases up to maximum 9 Hz. Throughout the study the EKG is noted to be very irregular, occasionally with sinus pauses. At 09:20:21 the patient is not responding to verbal command to close his eyes, but the background remains consistent with wakefulness. At 09:43:03 tactile stimulation is applied. The background is reactive. Motion and movement artifact is noted. This is again repeated at 09:49:03 with an increase in activity to the background. The EEG contained frequent eye blinking artifacts which required the technologist to put a cloth over his eyes. However, this did not appear to correlate with any epileptiform activity. Deeper stages of sleep were not achieved. IMPRESSION: This EEG is considered abnormal due to the abnormal EKG tracing. The EEG overall consisted primarily only awake study. The wake background does appear normal for the patient's stated age. No clear electrographic seizure activity or epileptiform activity was noted. A wake only EEG does not preclude an underlying seizure tendency, thus further clinical correlation is needed. If clinically indicated, a more prolonged overnight study could provide additional information. The EKG, however, was abnormal as noted in the report. MMODL / IJN: [id number] / JEANIE
[2019-11-03 17:06] LABS: Glucose,Whole Blood 150 mg/dL (75-99)
--- NOTE | 2019-11-03 17:42 | PN ---
PROGRESS NOTE DATE OF SERVICE: 11/03/2019 This 79-year-old gentleman who was admitted with acute abdominal sepsis and acute small- bowel obstruction is being closely monitored. Patient on mechanical ventilation. Patient seems to be waking up at this time. A CT scan of the brain was done today which showed stable exam, age-related atrophy. A chest x-ray was done yesterday which was personally reviewed by me, showed significant improvement but persistent of the shadows. The patient also seen by multiple consultants including Dr. Madrigal and Dr. Qiu also. Currently the patient is on tidal volume of 500 and 40% FiO2 and PEEP of 5. The chest x-ray showed lesions and Dr. Qiu is planning further weaning at this time. PAST MEDICAL HISTORY: Reviewed. REVIEW OF SYSTEMS: Could not be taken because patient is mechanically sedated. CURRENT MEDICATIONS: 1. Tylenol p.r.n. 2. Cordarone 200 mg p.o. b.i.d. 3. Aspirin 81 mg p.o. daily. 4. Peridex. 5. Heparin 5000 subcu q.8h. 6. Dilaudid 0.2 q.2h p.r.n. 7. Flagyl. 8. Replacement protocols. 9. Zosyn 3.375 IV q8. PHYSICAL EXAM: Patient alert. The patient is mechanically sedated. Pulse is 100, blood pressure is 150/83, respiration 32, temperature 100.4, pulse ox 99% on mechanical ventilation. HEENT: Conjunctivae normal. Oral mucosa moist. NECK: No jugular venous distention. No lymph node enlargement. CARDIOVASCULAR: S1, S2. RESPIRATORY: Diminished breath sounds at the bases. Bilateral scattered rhonchi and crackles. ABDOMEN: Soft, nontender. LEGS: No edema, no swelling. NERVOUS SYSTEM: No focal deficits. LABS: WBC 7.2, hemoglobin 8.3, sodium 140, potassium 3.4. ASSESSMENT: 1. Acute abdominal sepsis with acute small-bowel obstruction, present on admission. 2. Continued fever. 3. Acute hypoxic respiratory failure secondary to hypovolemia, septic shock and mechanical ventilation. 4. Acute right-sided pneumonia, possibly aspiration with sepsis. 5. Acute nonketotic hyperosmolar diabetes mellitus with severe hyperglycemia on IV insulin drip. 6. Acute metabolic encephalopathy, mental status changes, multifactorial. 7. Dementia. 8. Layne albicans in the sputum. 9. Pseudohyponatremia. 10.4.4 cm distal abdominal aortic aneurysm. 11.Peripheral vascular disease. 12.Acute shock liver. 13.Congestive heart failure with chronic systolic dysfunction, ejection fraction 30- 35%. 14.Prolonged QTc of 510. 15.Acute rbz-MC-[id number]-elevation myocardial infarction, likely type 2 from demand ischemia, present on admission. 16.Acute kidney injury with acute tubular necrosis with prerenal factors. 17.Possible chronic kidney disease, stage 2, baseline. 18.Hypertension. 19.History of pneumonia. 20.New-onset atrial fibrillation, paroxysmal. 21.FULL CODE. RECOMMENDATIONS AND DISCUSSION: Recommend to continue current medications, symptomatic treatment. Otherwise, I would recommend anderson cultures and continue to monitor. We will check repeat EKG for any QT prolongation. Otherwise, the prognosis guarded because of multiple complex medical. Further weaning attempts per Dr. Qiu. Further recommendations to follow. MMODL / IJN: [id number] /
[2019-11-03 18:09] LABS: Glucose,Whole Blood 127 mg/dL (75-99)
[2019-11-03] MEDS: NOREPINEPHRINE 32 MG in SODIUM CHLORIDE 0.9% 218 ML IV SCH (18:13)
[2019-11-03 18:58] LABS: Glucose,Whole Blood 147 mg/dL (75-99)
[2019-11-03 20:26] LABS: Glucose,Whole Blood 153 mg/dL (75-99)
[2019-11-03 21:19] LABS: Glucose,Whole Blood 151 mg/dL (75-99)
[2019-11-03 22:09] LABS: Glucose,Whole Blood 150 mg/dL (75-99)
[2019-11-03 23:10] LABS: Glucose,Whole Blood 153 mg/dL (75-99)
[2019-11-04 00:06] LABS: Glucose,Whole Blood 157 mg/dL (75-99)
[2019-11-04 00:57] LABS: Glucose,Whole Blood 145 mg/dL (75-99)
[2019-11-04 02:08] LABS: Glucose,Whole Blood 150 mg/dL (75-99)
[2019-11-04 03:00] LABS: Glucose,Whole Blood 142 mg/dL (75-99)
[2019-11-04] MEDS: HYDROmorphone 0.5 MG/0.5 ML SYRINGE IVP PRN ×4 (03:01→23:07)
[2019-11-04] MEDS: INSULIN REGULAR 100 UNIT in SODIUM CHLORIDE 0.9% 100 ML IV SCH ×2 (03:05→22:59)
[2019-11-04 04:06] LABS: Glucose,Whole Blood 148 mg/dL (75-99)
[2019-11-04 04:15] LABS: HGB 7.8 gm/dL (13.0-17.5); Hypochromasia Moderate; MCH 30.7 pg (25.0-35.0); MCHC 29.8 g/dL (31.0-37.0); MCV 102.9 fL (80.0-100.0); Macrocytosis Slight; Mean Platelet Volume 9.5; Platelet Count 834 k/uL (150-450); RBC 2.53 m/uL (4.30-5.90); RDW 14.6 % (11.5-15.5); WBC 11.2 k/uL (3.8-10.6)
[2019-11-04 04:36] LABS: Calcium 7.2 mg/dL (8.4-10.2); Magnesium 1.9 mg/dL (1.6-2.3); Potassium 3.4 mmol/L (3.5-5.1)
[2019-11-04] MEDS: SODIUM CHLORIDE 0.9% 500 ML 500 ML IV SCH ×2 (04:44→20:00)
[2019-11-04] MEDS: PIPERACILLIN-TAZOBACTAM 3.375 GM in SODIUM CHLORIDE 0.9% 100 ML IVPB SCH ×3 (04:54→20:04)
[2019-11-04] MEDS: MAGNESIUM SULFATE-D5W PMX 1 GM in DEXTROSE/WATER 1 100ML.BAG IVPB SCH ×2 (04:54→05:49)
[2019-11-04] MEDS: POTASSIUM BICARBONATE/CIT AC 20 MEQ TABLET.EFF NG-TUBE SCH ×2 (04:54→05:49)
[2019-11-04 05:04] LABS: Glucose,Whole Blood 142 mg/dL (75-99)
[2019-11-04 06:01] LABS: Glucose,Whole Blood 96 mg/dL (75-99)
--- NOTE | 2019-11-04 06:08 | P.PN ---
Subjective Progress Note Date: 11/03/19 Patient evaluated on 02 of November 79-year-old male patient who remained intubated for several days for abdominal sepsis with small bowel obstruction and acute hypoxia risk-free failure He was successfully extubated yesterday While his eyes are open he still appears confused From a cardiac standpoint he has congestive heart failure within the LV systolic function of about 30-35% He had abnormal cardiac enzymes consistent with type II [place] He also had acute kidney injury Known peripheral vascular disease However here overriding medical issues including sepsis number respiratory failure, possible aspiration pneumonitis, and a shocked liver and acute kidney injury Hemoglobin 7.8, white count 11.2 Sodium 141 potassium 3.4 BUN 22 and creatinine 0.99 On examination breath sounds are reduced his very poor respiratory effort Heart sounds are soft Blood pressure 133/39, shallow respirations and pulse rate 94 Temperature 99.6 Suggest Continue amiodarone 200 mg twice daily aspirin Patient remains on norepinephrine Reintroduce cardiac medications once blood pressure improves Overall condition is guarded Objective - Vital Signs Vital signs: Vital Signs Temp 99.8 F H 11/04/19 04:00 Pulse 95 11/04/19 05:00 Resp 32 H 11/04/19 05:00 BP 121/65 10/31/19 23:00 Pulse Ox 95 11/04/19 05:00 Intake & Output 11/03/19 11/03/19 11/04/19 06:59 18:59 06:59 Intake Total 2427.126 2371.111 2374.996 Output Total 1950 1840 885 Balance 477.126 487.180 4365.996 Weight 88.2 kg Intake: IV 248 181 430 .9 Sodium Chloride @ 10ml 40 120 100 /hr Magnesium Sulfate-D5w Pmx 100 1 gm In Dextrose/Water 1 100ml.bag @ 100 mls/hr IVPB Q1H [facility] Rx#: [id number] Piperacillin-Tazobactam 3 175 25 100 .375 gm In Sodium Chloride 0.9% 100 ml @ 25 mls/hr IVPB Q8H [facility] Rx#: [id number] Pressure Bag 33 36 30 metroNIDAZOLE-NS PMX 500 100 mg In Saline 1 100ml.bag @ 100 mls/hr IVPB Q8HR [facility] Rx#:[id number] Intake, IV Titration 69.126 80.111 44.996 Amount Insulin Regular 100 unit 69.126 80.111 44.996 In Sodium Chloride 0.9% 100 ml @ Per Protocol IV .Q0M [facility] Rx#:[id number] Tube Feeding 910 910 700 Other 1200 1200 1200 Output: Urine 750 840 885 Stool 1200 1000 Other: Voiding Method Indwelling Catheter Indwelling Catheter Indwelling Catheter ABP, PAP, CO, CI - Last Documented Arterial Blood Pressure 129/49 - Labs CBC & Chem 7: 11/04/19 04:00 11/04/19 04:00 Labs: Abnormal Lab Results - Last 24 Hours (Table) 11/03/19 11/03/19 11/03/19 Range/Units 06:18 07:11 07:16 WBC (3.8-10.6) k/uL RBC (4.30-5.90) m/uL Hgb (13.0-17.5) gm/dL Hct (39.0-53.0) % MCV (80.0-100.0) fL MCHC (31.0-37.0) g/dL Plt Count (150-450) k/uL ABG pCO2 24 L (35-45) mmHg ABG pO2 128 H (83-108) mmHg ABG HCO3 16 L (21-25) mmol/L ABG Total CO2 16 L (19-24) mmol/L ABG O2 Saturation 99.1 H (94-97) % Potassium (3.5-5.1) mmol/L Chloride (98-107) mmol/L Carbon Dioxide (22-30) mmol/L BUN (9-20) mg/dL Glucose (74-99) mg/dL POC Glucose (mg/dL) 197 H 193 H (75-99) mg/dL Calcium (8.4-10.2) mg/dL 11/03/19 11/03/19 11/03/19 Range/Units 08:01 10:40 12:09 WBC (3.8-10.6) k/uL RBC (4.30-5.90) m/uL Hgb (13.0-17.5) gm/dL Hct (39.0-53.0) % MCV (80.0-100.0) fL MCHC (31.0-37.0) g/dL Plt Count (150-450) k/uL ABG pCO2 (35-45) mmHg ABG pO2 (83-108) mmHg ABG HCO3 (21-25) mmol/L ABG Total CO2 (19-24) mmol/L ABG O2 Saturation (94-97) % Potassium (3.5-5.1) mmol/L Chloride (98-107) mmol/L Carbon Dioxide (22-30) mmol/L BUN (9-20) mg/dL Glucose (74-99) mg/dL POC Glucose (mg/dL) 203 H 129 H 179 H (75-99) mg/dL Calcium (8.4-10.2) mg/dL 11/03/19 11/03/19 11/03/19 Range/Units 12:27 13:00 13:06 WBC (3.8-10.6) k/uL RBC (4.30-5.90) m/uL Hgb (13.0-17.5) gm/dL Hct (39.0-53.0) % MCV (80.0-100.0) fL MCHC (31.0-37.0) g/dL Plt Count (150-450) k/uL ABG pCO2 28 L (35-45) mmHg ABG pO2 (83-108) mmHg ABG HCO3 18 L (21-25) mmol/L ABG Total CO2 (19-24) mmol/L ABG O2 Saturation 97.8 H (94-97) % Potassium 3.4 L (3.5-5.1) mmol/L Chloride (98-107) mmol/L Carbon Dioxide (22-30) mmol/L BUN (9-20) mg/dL Glucose (74-99) mg/dL POC Glucose (mg/dL) 225 H (75-99) mg/dL Calcium (8.4-10.2) mg/dL 11/03/19 11/03/19 11/03/19 Range/Units 15:18 16:01 17:04 WBC (3.8-10.6) k/uL RBC (4.30-5.90) m/uL Hgb (13.0-17.5) gm/dL Hct (39.0-53.0) % MCV (80.0-100.0) fL MCHC (31.0-37.0) g/dL Plt Count (150-450) k/uL ABG pCO2 (35-45) mmHg ABG pO2 (83-108) mmHg ABG HCO3 (21-25) mmol/L ABG Total CO2 (19-24) mmol/L ABG O2 Saturation (94-97) % Potassium (3.5-5.1) mmol/L Chloride (98-107) mmol/L Carbon Dioxide (22-30) mmol/L BUN (9-20) mg/dL Glucose (74-99) mg/dL POC Glucose (mg/dL) 140 H 136 H 150 H (75-99) mg/dL Calcium (8.4-10.2) mg/dL 11/03/19 11/03/19 11/03/19 Range/Units 18:08 18:56 20:25 WBC (3.8-10.6) k/uL RBC (4.30-5.90) m/uL Hgb (13.0-17.5) gm/dL Hct (39.0-53.0) % MCV (80.0-100.0) fL MCHC (31.0-37.0) g/dL Plt Count (150-450) k/uL ABG pCO2 (35-45) mmHg ABG pO2 (83-108) mmHg ABG HCO3 (21-25) mmol/L ABG Total CO2 (19-24) mmol/L ABG O2 Saturation (94-97) % Potassium (3.5-5.1) mmol/L Chloride (98-107) mmol/L Carbon Dioxide (22-30) mmol/L BUN (9-20) mg/dL Glucose (74-99) mg/dL POC Glucose (mg/dL) 127 H 147 H 153 H (75-99) mg/dL Calcium (8.4-10.2) mg/dL 11/03/19 11/03/19 11/03/19 Range/Units 21:18 22:08 23:09 WBC (3.8-10.6) k/uL RBC (4.30-5.90) m/uL Hgb (13.0-17.5) gm/dL Hct (39.0-53.0) % MCV (80.0-100.0) fL MCHC (31.0-37.0) g/dL Plt Count (150-450) k/uL ABG pCO2 (35-45) mmHg ABG pO2 (83-108) mmHg ABG HCO3 (21-25) mmol/L ABG Total CO2 (19-24) mmol/L ABG O2 Saturation (94-97) % Potassium (3.5-5.1) mmol/L Chloride (98-107) mmol/L Carbon Dioxide (22-30) mmol/L BUN (9-20) mg/dL Glucose (74-99) mg/dL POC Glucose (mg/dL) 151 H 150 H 153 H (75-99) mg/dL Calcium (8.4-10.2) mg/dL 11/04/19 11/04/19 11/04/19 Range/Units 00:03 00:56 02:07 WBC (3.8-10.6) k/uL RBC (4.30-5.90) m/uL Hgb (13.0-17.5) gm/dL Hct (39.0-53.0) % MCV (80.0-100.0) fL MCHC (31.0-37.0) g/dL Plt Count (150-450) k/uL ABG pCO2 (35-45) mmHg ABG pO2 (83-108) mmHg ABG HCO3 (21-25) mmol/L ABG Total CO2 (19-24) mmol/L ABG O2 Saturation (94-97) % Potassium (3.5-5.1) mmol/L Chloride (98-107) mmol/L Carbon Dioxide (22-30) mmol/L BUN (9-20) mg/dL Glucose (74-99) mg/dL POC Glucose (mg/dL) 157 H 145 H 150 H (75-99) mg/dL Calcium (8.4-10.2) mg/dL 11/04/19 11/04/19 11/04/19 Range/Units 02:59 04:00 04:00 WBC 11.2 H (3.8-10.6) k/uL RBC 2.53 L (4.30-5.90) m/uL Hgb 7.8 L (13.0-17.5) gm/dL Hct 26.0 L (39.0-53.0) % MCV 102.9 H (80.0-100.0) fL MCHC 29.8 L (31.0-37.0) g/dL Plt Count 834 H (150-450) k/uL ABG pCO2 (35-45) mmHg ABG pO2 (83-108) mmHg ABG HCO3 (21-25) mmol/L ABG Total CO2 (19-24) mmol/L ABG O2 Saturation (94-97) % Potassium 3.4 L (3.5-5.1) mmol/L Chloride 117 H (98-107) mmol/L Carbon Dioxide 19 L (22-30) mmol/L BUN 22 H (9-20) mg/dL Glucose 137 H (74-99) mg/dL POC Glucose (mg/dL) 142 H (75-99) mg/dL Calcium 7.2 L (8.4-10.2) mg/dL 11/04/19 11/04/19 Range/Units 04:05 05:02 WBC (3.8-10.6) k/uL RBC (4.30-5.90) m/uL Hgb (13.0-17.5) gm/dL Hct (39.0-53.0) % MCV (80.0-100.0) fL MCHC (31.0-37.0) g/dL Plt Count (150-450) k/uL ABG pCO2 (35-45) mmHg ABG pO2 (83-108) mmHg ABG HCO3 (21-25) mmol/L ABG Total CO2 (19-24) mmol/L ABG O2 Saturation (94-97) % Potassium (3.5-5.1) mmol/L Chloride (98-107) mmol/L Carbon Dioxide (22-30) mmol/L BUN (9-20) mg/dL Glucose (74-99) mg/dL POC Glucose (mg/dL) 148 H 142 H (75-99) mg/dL Calcium (8.4-10.2) mg/dL Microbiology - Last 24 Hours (Table) 10/28/19 14:00 Blood Culture - Final Blood No Growth after 144 hours
[2019-11-04 06:56] LABS: Glucose,Whole Blood 120 mg/dL (75-99)
--- NOTE | 2019-11-04 07:15 | XR ---
EXAMINATION TYPE: XR chest 1V portable DATE OF EXAM: 11/04/2019 COMPARISON: Prior chest x-ray 11/02/2019 HISTORY: Pneumonia TECHNIQUE: Single frontal view of the chest is obtained. FINDINGS: Endotracheal tube has been removed. NG tube remains in place, distal tip is not included o n the exam. Left subclavian central venous catheter is stable with the distal tip over the superior v harry cava region. No evident pneumothorax. Bibasilar increased attenuation is noted within the lungs. Heart is stable. Prominence of pulmonary artery. There are overlying artifacts, leads. IMPRESSION: There is not a significant interval change. Correlate for pneumonia versus edema, atelec tasis, there may be underlying pulmonary artery hypertension. Interval extubation.
[2019-11-04] MEDS ORDERED: FUROSEMIDE 10 MG/ML 4 ML VIAL IV STA (07:40)
--- NOTE | 2019-11-04 07:49 | P.PN ---
Subjective Progress Note Date: 11/04/19 Principal diagnosis: hypovolemic shock, small bowel ileus/obstruction, right lower lobe pneumonia on 11/04/2019 patient is seen in follow-up in the intensive care unit. Patient was successfully weaned and extubated from the mechanical ventilator yesterday on 11/03/2019, this morning patient is on 5 L per nasal cannula his pulse ox is 92-95%. he is awake, his speech is difficult to understand, as he is following basic commands, he is able to squeeze hands on command and wiggle his toes. his been having low-grade fevers, his T-max in the last 24 hours was 100.2F. remains on a combination of Diflucan, Flagyl and Zosyn. microbiology data reviewed, and all his cultures are negative except for Layne albicans in the sputum. Abdomen is nontender, patient has NG tube in place with tube feeds infusing with the formula vital a half at a rate of 70 with a goal of 70. IV fl uids include 0.9 normal saline at a rate of 10, insulin drip at 5.5 units per hour. No other drips. Lung sounds are positive for diffuse rhonchi bilaterally. Patient is also audibly congested, and his mucous membranes are extremely dry with bleeding from his mouth. family symptoms or has been reviewed showing increased bibasilar densities. patient remains in atrial fibrillation with a controlled rate at 95 BPM. Hemodynamically patient is stable. today's labs have been reviewed showing white blood cell count of 11.2, hemoglobin of 7.8, sodium is 141, potassium is 3.4, chloride is 117, CO2 is 19, B1 is 22, creatinine 0.99. generally patient is extremely weak, consult physical therapy. Objective - Vital Signs Vital signs: Vital Signs Temp 99.8 F H 11/04/19 04:00 Pulse 95 11/04/19 07:00 Resp 26 H 11/04/19 07:00 BP 121/65 10/31/19 23:00 Pulse Ox 92 L 11/04/19 07:00 Intake & Output 11/03/19 11/04/19 11/04/19 18:59 06:59 18:59 Intake Total 2371.111 2589.513 Output Total 1840 1335 Balance 370.911 2165.513 Weight 88.2 kg Intake: IV 181 556 .9 Sodium Chloride @ 10ml 120 120 /hr Magnesium Sulfate-D5w Pmx 200 1 gm In Dextrose/Water 1 100ml.bag @ 100 mls/hr IVPB Q1H INDU Rx#: [id number] Piperacillin-Tazobactam 3 25 100 .375 gm In Sodium Chloride 0.9% 100 ml @ 25 mls/hr IVPB Q8H INDU Rx#: [id number] Pressure Bag 36 36 metroNIDAZOLE-NS PMX 500 100 mg In Saline 1 100ml.bag @ 100 mls/hr IVPB Q8HR INDU Rx#:[id number] Intake, IV Titration 80.111 63.513 Amount Insulin Regular 100 unit 80.111 63.513 In Sodium Chloride 0.9% 100 ml @ Per Protocol IV .Q0M INDU Rx#:[id number] Tube Feeding 910 770 Other 1200 1200 Output: Urine 840 1335 Stool 1000 Other: Voiding Method Indwelling Catheter Indwelling Catheter ABP, PAP, CO, CI - Last Documented Arterial Blood Pressure 145/43 - Exam GENERAL EXAM: Alert, 79-year-old white male, on 5 L of oxygen with a pulse ox of 92%, with NG tube in place and tube feedings infusing, patient mumbles his speech is difficult to understand, but follows basic commands HEAD: Normocephalic/atraumatic. EYES: Normal reaction of pupils, equal size. Conjunctiva pink, sclera white. NOSE: Clear with pink turbinates. THROAT: No erythema or exudates. NECK: No masses, no JVD, no thyroid enlargement, no adenopathy. CHEST: No chest wall deformity. Symmetrical expansion. LUNGS: Equal air entry with no crackles, wheeze, rhonchi or dullness. CVS: Irregular rate and rhythm, normal S1 and S2, no gallops, no murmurs, no rubs ABDOMEN: Soft, nontender. No hepatosplenomegaly, normal bowel sounds, no guarding or rigidity. EXTREMITIES: No clubbing, 1+ edema in upper extremities, mild pretibial edema, no cyanosis, 2+ pulses and upper and lower extremities. MUSCULOSKELETAL: Muscle strength and tone normal. SPINE: No scoliosis or deformity SKIN: No rashes CENTRAL NERVOUS SYSTEM: patient is alert, but unable to assess orientation as the patient is difficult to understand. No focal deficits, tone is normal in all 4 extremities. - Labs CBC & Chem 7: 11/04/19 04:00 11/04/19 04:00 Labs: Abnormal Lab Results - Last 24 Hours (Table) 11/03/19 11/03/19 11/03/19 Range/Units 08:01 10:40 12:09 WBC (3.8-10.6) k/uL RBC (4.30-5.90) m/uL Hgb (13.0-17.5) gm/dL Hct (39.0-53.0) % MCV (80.0-100.0) fL MCHC (31.0-37.0) g/dL Plt Count (150-450) k/uL ABG pCO2 (35-45) mmHg ABG HCO3 (21-25) mmol/L ABG O2 Saturation (94-97) % Potassium (3.5-5.1) mmol/L Chloride (98-107) mmol/L Carbon Dioxide (22-30) mmol/L BUN (9-20) mg/dL Glucose (74-99) mg/dL POC Glucose (mg/dL) 203 H 129 H 179 H (75-99) mg/dL Calcium (8.4-10.2) mg/dL 11/03/19 11/03/19 11/03/19 Range/Units 12:27 13:00 13:06 WBC (3.8-10.6) k/uL RBC (4.30-5.90) m/uL Hgb (13.0-17.5) gm/dL Hct (39.0-53.0) % MCV (80.0-100.0) fL MCHC (31.0-37.0) g/dL Plt Count (150-450) k/uL ABG pCO2 28 L (35-45) mmHg ABG HCO3 18 L (21-25) mmol/L ABG O2 Saturation 97.8 H (94-97) % Potassium 3.4 L (3.5-5.1) mmol/L Chloride (98-107) mmol/L Carbon Dioxide (22-30) mmol/L BUN (9-20) mg/dL Glucose (74-99) mg/dL POC Glucose (mg/dL) 225 H (75-99) mg/dL Calcium (8.4-10.2) mg/dL 11/03/19 11/03/19 11/03/19 Range/Units 15:18 16:01 17:04 WBC (3.8-10.6) k/uL RBC (4.30-5.90) m/uL Hgb (13.0-17.5) gm/dL Hct (39.0-53.0) % MCV (80.0-100.0) fL MCHC (31.0-37.0) g/dL Plt Count (150-450) k/uL ABG pCO2 (35-45) mmHg ABG HCO3 (21-25) mmol/L ABG O2 Saturation (94-97) % Potassium (3.5-5.1) mmol/L Chloride (98-107) mmol/L Carbon Dioxide (22-30) mmol/L BUN (9-20) mg/dL Glucose (74-99) mg/dL POC Glucose (mg/dL) 140 H 136 H 150 H (75-99) mg/dL Calcium (8.4-10.2) mg/dL 11/03/19 11/03/19 11/03/19 Range/Units 18:08 18:56 20:25 WBC (3.8-10.6) k/uL RBC (4.30-5.90) m/uL Hgb (13.0-17.5) gm/dL Hct (39.0-53.0) % MCV (80.0-100.0) fL MCHC (31.0-37.0) g/dL Plt Count (150-450) k/uL ABG pCO2 (35-45) mmHg ABG HCO3 (21-25) mmol/L ABG O2 Saturation (94-97) % Potassium (3.5-5.1) mmol/L Chloride (98-107) mmol/L Carbon Dioxide (22-30) mmol/L BUN (9-20) mg/dL Glucose (74-99) mg/dL POC Glucose (mg/dL) 127 H 147 H 153 H (75-99) mg/dL Calcium (8.4-10.2) mg/dL 11/03/19 11/03/19 11/03/19 Range/Units 21:18 22:08 23:09 WBC (3.8-10.6) k/uL RBC (4.30-5.90) m/uL Hgb (13.0-17.5) gm/dL Hct (39.0-53.0) % MCV (80.0-100.0) fL MCHC (31.0-37.0) g/dL Plt Count (150-450) k/uL ABG pCO2 (35-45) mmHg ABG HCO3 (21-25) mmol/L ABG O2 Saturation (94-97) % Potassium (3.5-5.1) mmol/L Chloride (98-107) mmol/L Carbon Dioxide (22-30) mmol/L BUN (9-20) mg/dL Glucose (74-99) mg/dL POC Glucose (mg/dL) 151 H 150 H 153 H (75-99) mg/dL Calcium (8.4-10.2) mg/dL 11/04/19 11/04/19 11/04/19 Range/Units 00:03 00:56 02:07 WBC (3.8-10.6) k/uL RBC (4.30-5.90) m/uL Hgb (13.0-17.5) gm/dL Hct (39.0-53.0) % MCV (80.0-100.0) fL MCHC (31.0-37.0) g/dL Plt Count (150-450) k/uL ABG pCO2 (35-45) mmHg ABG HCO3 (21-25) mmol/L ABG O2 Saturation (94-97) % Potassium (3.5-5.1) mmol/L Chloride (98-107) mmol/L Carbon Dioxide (22-30) mmol/L BUN (9-20) mg/dL Glucose (74-99) mg/dL POC Glucose (mg/dL) 157 H 145 H 150 H (75-99) mg/dL Calcium (8.4-10.2) mg/dL 11/04/19 11/04/19 11/04/19 Range/Units 02:59 04:00 04:00 WBC 11.2 H (3.8-10.6) k/uL RBC 2.53 L (4.30-5.90) m/uL Hgb 7.8 L (13.0-17.5) gm/dL Hct 26.0 L (39.0-53.0) % MCV 102.9 H (80.0-100.0) fL MCHC 29.8 L (31.0-37.0) g/dL Plt Count 834 H (150-450) k/uL ABG pCO2 (35-45) mmHg ABG HCO3 (21-25) mmol/L ABG O2 Saturation (94-97) % Potassium 3.4 L (3.5-5.1) mmol/L Chloride 117 H (98-107) mmol/L Carbon Dioxide 19 L (22-30) mmol/L BUN 22 H (9-20) mg/dL Glucose 137 H (74-99) mg/dL POC Glucose (mg/dL) 142 H (75-99) mg/dL Calcium 7.2 L (8.4-10.2) mg/dL 11/04/19 11/04/19 11/04/19 Range/Units 04:05 05:02 06:55 WBC (3.8-10.6) k/uL RBC (4.30-5.90) m/uL Hgb (13.0-17.5) gm/dL Hct (39.0-53.0) % MCV (80.0-100.0) fL MCHC (31.0-37.0) g/dL Plt Count (150-450) k/uL ABG pCO2 (35-45) mmHg ABG HCO3 (21-25) mmol/L ABG O2 Saturation (94-97) % Potassium (3.5-5.1) mmol/L Chloride (98-107) mmol/L Carbon Dioxide (22-30) mmol/L BUN (9-20) mg/dL Glucose (74-99) mg/dL POC Glucose (mg/dL) 148 H 142 H 120 H (75-99) mg/dL Calcium (8.4-10.2) mg/dL Microbiology - Last 24 Hours (Table) 10/28/19 14:00 Blood Culture - Final Blood No Growth after 144 hours Assessment and Plan Plan: Acute hypoxic respiratory failure secondary to hypovolemic and septic shock, patient was intubated on 10/22/2019, and weaned and extubated on 11/04/2019 Acute abdominal sepsis, small bowel ileus/obstruction, remains on Zosyn and Flagyl. Resolved. Possible right lower lobe pneumonia, hospital-acquired or could be aspiration related. Acute hyperosmolar nonketotic diabetic syndrome with profound hypovolemia and volume depletion/dehydration, improved Acute kidney injury secondary to hypovolemia and possible septic shock with acute tubular necrosis. Resolved Altered mental status on presentation secondary to hyperosmolar nonketotic state. Mental status is not showing any improvement. History of Alzheimer's dementia Type 2 diabetes Pseudohyponatremia on presentation secondary to severe hyperglycemia. 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 History of 4.6 cm distal abdominal aortic aneurysm and previous iliac stent the graft placement. Acute shock liver secondary to hypotension on presentation. Improving. History of ischemic cardiomyopathy and LV dysfunction, ejection fraction of 30%. Severe lactic acidosis on presentation most likely secondary to abdominal sepsis and ischemic bowel. Coma, resolved Plan: Decrease the fluids to KVO, we'll give the patient a dose of Lasix, today's chest x-ray shows increased bibasilar densities, likely related to atelectasis and pulmonary edema. Patient continues to have low-grade fevers, continue current antibiotics, culture data remains negative to date. Maintain aspiration precautions, maintain tube feedings. continue insulin infusion. consult physical therapy. continue monitoring patient's neurological status, patient is following basic commands today. continue to follow with neurology, GI and DVT prophylaxis, continue to closely monitor in the intensive care unit I performed a history & physical examination of the patient and discussed their management with my nurse practitioner, Roshni Francis. I reviewed the nurse practitioner's note and agree with the documented findings and plan of care. Lung sounds are positive for diffuse rhonchi throughout the lung flores. The findings and the impression was discussed with the patient. I attest to the documentation by the nurse practitioner. Time with Patient: Less than 30
[2019-11-04] MEDS: metroNIDAZOLE-NS PMX 500 MG in SALINE 1 100ML.BAG IVPB SCH ×3 (09:03→23:04)
[2019-11-04] MEDS: HEPARIN SODIUM,PORCINE 5,000 UNIT/ML 1 ML VIAL SQ SCH ×3 (09:03→23:04)
[2019-11-04] MEDS: AMIODARONE 200 MG TAB PO SCH ×2 (09:04→20:04)
[2019-11-04] MEDS: ASPIRIN 81 MG PO SCH (09:04)
--- NOTE | 2019-11-04 09:04 | P.PN ---
Subjective Progress Note Date: 11/04/19 Principal diagnosis: cardiomyopathy This is an 79-year-old gentleman with extensive past medical history who was admitted to the hospital initially with intra-abdominal sepsis and small bowel obstruction and developed acute hypoxic respiratory failure. The patient was seen today, 11/04/2019. He is somewhat poor historian. Hemodynamically he remains is stable. He did have an episode of atrial fibrillation but he has been in normal sinus mechanism. He is on oral amiodaron e. I'm going to start the patient on small dose of lisinopril at 2.5 mg by mouth daily for the cardiomyopathy. His echo in the hospital showed severe cardiomyopathy. He is hemodynamically stable and not on any vasopressors at this point. Objective - Vital Signs Vital signs: Vital Signs Temp 99.8 F H 11/04/19 04:00 Pulse 95 11/04/19 07:00 Resp 26 H 11/04/19 07:00 BP 121/65 10/31/19 23:00 Pulse Ox 92 L 11/04/19 07:00 Intake & Output 11/03/19 11/04/19 11/04/19 18:59 06:59 18:59 Intake Total 2371.111 2589.513 483 Output Total 1840 1335 275 Balance 681.838 8846.513 208 Weight 88.2 kg Intake: IV 181 556 13 .9 Sodium Chloride @ 10ml 120 120 10 /hr Magnesium Sulfate-D5w Pmx 200 1 gm In Dextrose/Water 1 100ml.bag @ 100 mls/hr IVPB Q1H INDU Rx#: [id number] Piperacillin-Tazobactam 3 25 100 .375 gm In Sodium Chloride 0.9% 100 ml @ 25 mls/hr IVPB Q8H INDU Rx#: [id number] Pressure Bag 36 36 3 metroNIDAZOLE-NS PMX 500 100 mg In Saline 1 100ml.bag @ 100 mls/hr IVPB Q8HR INDU Rx#:[id number] Intake, IV Titration 80.111 63.513 Amount Insulin Regular 100 unit 80.111 63.513 In Sodium Chloride 0.9% 100 ml @ Per Protocol IV .Q0M INDU Rx#:[id number] Tube Feeding 910 770 70 Other 1200 1200 400 Output: Urine 840 1335 275 Stool 1000 Other: Voiding Method Indwelling Catheter Indwelling Catheter ABP, PAP, CO, CI - Last Documented Arterial Blood Pressure 145/43 - Constitutional General appearance: Present: no acute distress - Respiratory Respiratory: bilateral: diminished - Cardiovascular Rhythm: regular Heart sounds: normal: S1, S2 - Labs CBC & Chem 7: 11/04/19 04:00 11/04/19 04:00 Labs: Abnormal Lab Results - Last 24 Hours (Table) 11/03/19 11/03/19 11/03/19 Range/Units 10:40 12:09 12:27 WBC (3.8-10.6) k/uL RBC (4.30-5.90) m/uL Hgb (13.0-17.5) gm/dL Hct (39.0-53.0) % MCV (80.0-100.0) fL MCHC (31.0-37.0) g/dL Plt Count (150-450) k/uL ABG pCO2 28 L (35-45) mmHg ABG HCO3 18 L (21-25) mmol/L ABG O2 Saturation 97.8 H (94-97) % Potassium (3.5-5.1) mmol/L Chloride (98-107) mmol/L Carbon Dioxide (22-30) mmol/L BUN (9-20) mg/dL Glucose (74-99) mg/dL POC Glucose (mg/dL) 129 H 179 H (75-99) mg/dL Calcium (8.4-10.2) mg/dL 11/03/19 11/03/19 11/03/19 Range/Units 13:00 13:06 15:18 WBC (3.8-10.6) k/uL RBC (4.30-5.90) m/uL Hgb (13.0-17.5) gm/dL Hct (39.0-53.0) % MCV (80.0-100.0) fL MCHC (31.0-37.0) g/dL Plt Count (150-450) k/uL ABG pCO2 (35-45) mmHg ABG HCO3 (21-25) mmol/L ABG O2 Saturation (94-97) % Potassium 3.4 L (3.5-5.1) mmol/L Chloride (98-107) mmol/L Carbon Dioxide (22-30) mmol/L BUN (9-20) mg/dL Glucose (74-99) mg/dL POC Glucose (mg/dL) 225 H 140 H (75-99) mg/dL Calcium (8.4-10.2) mg/dL 11/03/19 11/03/19 11/03/19 Range/Units 16:01 17:04 18:08 WBC (3.8-10.6) k/uL RBC (4.30-5.90) m/uL Hgb (13.0-17.5) gm/dL Hct (39.0-53.0) % MCV (80.0-100.0) fL MCHC (31.0-37.0) g/dL Plt Count (150-450) k/uL ABG pCO2 (35-45) mmHg ABG HCO3 (21-25) mmol/L ABG O2 Saturation (94-97) % Potassium (3.5-5.1) mmol/L Chloride (98-107) mmol/L Carbon Dioxide (22-30) mmol/L BUN (9-20) mg/dL Glucose (74-99) mg/dL POC Glucose (mg/dL) 136 H 150 H 127 H (75-99) mg/dL Calcium (8.4-10.2) mg/dL 11/03/19 11/03/19 11/03/19 Range/Units 18:56 20:25 21:18 WBC (3.8-10.6) k/uL RBC (4.30-5.90) m/uL Hgb (13.0-17.5) gm/dL Hct (39.0-53.0) % MCV (80.0-100.0) fL MCHC (31.0-37.0) g/dL Plt Count (150-450) k/uL ABG pCO2 (35-45) mmHg ABG HCO3 (21-25) mmol/L ABG O2 Saturation (94-97) % Potassium (3.5-5.1) mmol/L Chloride (98-107) mmol/L Carbon Dioxide (22-30) mmol/L BUN (9-20) mg/dL Glucose (74-99) mg/dL POC Glucose (mg/dL) 147 H 153 H 151 H (75-99) mg/dL Calcium (8.4-10.2) mg/dL 0511/03/19 11/04/19 Range/Units 22:08 23:09 00:03 WBC (3.8-10.6) k/uL RBC (4.30-5.90) m/uL Hgb (13.0-17.5) gm/dL Hct (39.0-53.0) % MCV (80.0-100.0) fL MCHC (31.0-37.0) g/dL Plt Count (150-450) k/uL ABG pCO2 (35-45) mmHg ABG HCO3 (21-25) mmol/L ABG O2 Saturation (94-97) % Potassium (3.5-5.1) mmol/L Chloride (98-107) mmol/L Carbon Dioxide (22-30) mmol/L BUN (9-20) mg/dL Glucose (74-99) mg/dL POC Glucose (mg/dL) 150 H 153 H 157 H (75-99) mg/dL Calcium (8.4-10.2) mg/dL 11/04/19 11/04/19 11/04/19 Range/Units 00:56 02:07 02:59 WBC (3.8-10.6) k/uL RBC (4.30-5.90) m/uL Hgb (13.0-17.5) gm/dL Hct (39.0-53.0) % MCV (80.0-100.0) fL MCHC (31.0-37.0) g/dL Plt Count (150-450) k/uL ABG pCO2 (35-45) mmHg ABG HCO3 (21-25) mmol/L ABG O2 Saturation (94-97) % Potassium (3.5-5.1) mmol/L Chloride (98-107) mmol/L Carbon Dioxide (22-30) mmol/L BUN (9-20) mg/dL Glucose (74-99) mg/dL POC Glucose (mg/dL) 145 H 150 H 142 H (75-99) mg/dL Calcium (8.4-10.2) mg/dL 11/04/19 11/04/19 11/04/19 Range/Units 04:00 04:00 04:05 WBC 11.2 H (3.8-10.6) k/uL RBC 2.53 L (4.30-5.90) m/uL Hgb 7.8 L (13.0-17.5) gm/dL Hct 26.0 L (39.0-53.0) % MCV 102.9 H (80.0-100.0) fL MCHC 29.8 L (31.0-37.0) g/dL Plt Count 834 H (150-450) k/uL ABG pCO2 (35-45) mmHg ABG HCO3 (21-25) mmol/L ABG O2 Saturation (94-97) % Potassium 3.4 L (3.5-5.1) mmol/L Chloride 117 H (98-107) mmol/L Carbon Dioxide 19 L (22-30) mmol/L BUN 22 H (9-20) mg/dL Glucose 137 H (74-99) mg/dL POC Glucose (mg/dL) 148 H (75-99) mg/dL Calcium 7.2 L (8.4-10.2) mg/dL 11/04/19 11/04/19 Range/Units 05:02 06:55 WBC (3.8-10.6) k/uL RBC (4.30-5.90) m/uL Hgb (13.0-17.5) gm/dL Hct (39.0-53.0) % MCV (80.0-100.0) fL MCHC (31.0-37.0) g/dL Plt Count (150-450) k/uL ABG pCO2 (35-45) mmHg ABG HCO3 (21-25) mmol/L ABG O2 Saturation (94-97) % Potassium (3.5-5.1) mmol/L Chloride (98-107) mmol/L Carbon Dioxide (22-30) mmol/L BUN (9-20) mg/dL Glucose (74-99) mg/dL POC Glucose (mg/dL) 142 H 120 H (75-99) mg/dL Calcium (8.4-10.2) mg/dL Microbiology - Last 24 Hours (Table) 10/28/19 14:00 Blood Culture - Final Blood No Growth after 144 hours Assessment and Plan Assessment: assessment #1 acute hypoxic respiratory failure which has improved #2 paroxysmal atrial fibrillation #3 severe cardiomyopathy #4 peripheral arterial disease #5 multiple comorbid conditions Plan #1 continue the current medical regimen including the current dose of amiodarone #2 start the patient on small dose of lisinopril #3 down the line, add metoprolol as well as Aldactone #4 follow-up with the patient
[2019-11-04] MEDS: PANTOPRAZOLE 40 MG/10 ML VIAL IV SCH (09:09)
[2019-11-04 09:22] LABS: Glucose,Whole Blood 179 mg/dL (75-99)
[2019-11-04 10:33] LABS: Glucose,Whole Blood 152 mg/dL (75-99)
[2019-11-04 11:09] LABS: Glucose,Whole Blood 118 mg/dL (75-99)
[2019-11-04] MEDS: FLUCONAZOLE IN NACL,ISO-OSM 200 MG in SALINE 1 100ML.BAG IVPB SCH (11:19)
[2019-11-04] MEDS: LISINOPRIL 2.5 MG TAB PO SCH (11:23)
--- NOTE | 2019-11-04 11:32 | P.PN ---
Subjective Patient is seen in follow-up for acute kidney injury. Patient extubated on November 02. Receiving tube feedings. Renal function is fairly stable. Sodium level 141. He received a dose of Lasix 40 mg IV this morning. Vital signs are stable. General: The patient appeared well nourished and normally developed. HEENT: Head exam is unremarkable. Neck is without jugular venous distension. LUNGS: Breath sounds decreased. HEART: Rate and Rhythm are regular. ABDOMEN: Soft, no distention noted. EXTREMITITES: 1+ edema. Objective - Vital Signs Vital signs: Vital Signs Temp 100.6 F H 11/04/19 09:00 Pulse 101 H 11/04/19 11:00 Resp 28 H 11/04/19 11:00 BP 121/65 10/31/19 23:00 Pulse Ox 94 L 11/04/19 11:00 Intake & Output 11/03/19 11/04/19 11/04/19 18:59 06:59 18:59 Intake Total 2371.111 2589.513 773.362 Output Total 1840 1335 1300 Balance 324.893 7156.513 -526.638 Weight 88.2 kg Intake: IV 181 556 52 .9 Sodium Chloride @ 10ml 120 120 40 /hr Magnesium Sulfate-D5w Pmx 200 1 gm In Dextrose/Water 1 100ml.bag @ 100 mls/hr IVPB Q1H INDU Rx#: [id number] Piperacillin-Tazobactam 3 25 100 .375 gm In Sodium Chloride 0.9% 100 ml @ 25 mls/hr IVPB Q8H INDU Rx#: [id number] Pressure Bag 36 36 12 metroNIDAZOLE-NS PMX 500 100 mg In Saline 1 100ml.bag @ 100 mls/hr IVPB Q8HR INDU Rx#:[id number] Intake, IV Titration 80.111 63.513 11.362 Amount Insulin Regular 100 unit 80.111 63.513 11.362 In Sodium Chloride 0.9% 100 ml @ Per Protocol IV .Q0M INDU Rx#:[id number] Tube Feeding 910 770 280 Other 1200 1200 430 Output: Urine 840 1335 1300 Stool 1000 Other: Voiding Method Indwelling Catheter Indwelling Catheter ABP, PAP, CO, CI - Last Documented Arterial Blood Pressure 120/65 - Labs CBC & Chem 7: 11/04/19 04:00 11/04/19 04:00 Labs: Abnormal Lab Results - Last 24 Hours (Table) 11/03/19 11/03/19 11/03/19 Range/Units 12:09 12:27 13:00 WBC (3.8-10.6) k/uL RBC (4.30-5.90) m/uL Hgb (13.0-17.5) gm/dL Hct (39.0-53.0) % MCV (80.0-100.0) fL MCHC (31.0-37.0) g/dL Plt Count (150-450) k/uL ABG pCO2 28 L (35-45) mmHg ABG HCO3 18 L (21-25) mmol/L ABG O2 Saturation 97.8 H (94-97) % Potassium 3.4 L (3.5-5.1) mmol/L Chloride (98-107) mmol/L Carbon Dioxide (22-30) mmol/L BUN (9-20) mg/dL Glucose (74-99) mg/dL POC Glucose (mg/dL) 179 H (75-99) mg/dL Calcium (8.4-10.2) mg/dL 11/03/19 11/03/19 11/03/19 Range/Units 13:06 15:18 16:01 WBC (3.8-10.6) k/uL RBC (4.30-5.90) m/uL Hgb (13.0-17.5) gm/dL Hct (39.0-53.0) % MCV (80.0-100.0) fL MCHC (31.0-37.0) g/dL Plt Count (150-450) k/uL ABG pCO2 (35-45) mmHg ABG HCO3 (21-25) mmol/L ABG O2 Saturation (94-97) % Potassium (3.5-5.1) mmol/L Chloride (98-107) mmol/L Carbon Dioxide (22-30) mmol/L BUN (9-20) mg/dL Glucose (74-99) mg/dL POC Glucose (mg/dL) 225 H 140 H 136 H (75-99) mg/dL Calcium (8.4-10.2) mg/dL 05/25/20 05/25/20 05/25/20 Range/Units 17:04 18:08 18:56 WBC (3.8-10.6) k/uL RBC (4.30-5.90) m/uL Hgb (13.0-17.5) gm/dL Hct (39.0-53.0) % MCV (80.0-100.0) fL MCHC (31.0-37.0) g/dL Plt Count (150-450) k/uL ABG pCO2 (35-45) mmHg ABG HCO3 (21-25) mmol/L ABG O2 Saturation (94-97) % Potassium (3.5-5.1) mmol/L Chloride (98-107) mmol/L Carbon Dioxide (22-30) mmol/L BUN (9-20) mg/dL Glucose (74-99) mg/dL POC Glucose (mg/dL) 150 H 127 H 147 H (75-99) mg/dL Calcium (8.4-10.2) mg/dL 11/03/19 11/03/19 11/03/19 Range/Units 20:25 21:18 22:08 WBC (3.8-10.6) k/uL RBC (4.30-5.90) m/uL Hgb (13.0-17.5) gm/dL Hct (39.0-53.0) % MCV (80.0-100.0) fL MCHC (31.0-37.0) g/dL Plt Count (150-450) k/uL ABG pCO2 (35-45) mmHg ABG HCO3 (21-25) mmol/L ABG O2 Saturation (94-97) % Potassium (3.5-5.1) mmol/L Chloride (98-107) mmol/L Carbon Dioxide (22-30) mmol/L BUN (9-20) mg/dL Glucose (74-99) mg/dL POC Glucose (mg/dL) 153 H 151 H 150 H (75-99) mg/dL Calcium (8.4-10.2) mg/dL 11/03/19 11/04/19 11/04/19 Range/Units 23:09 00:03 00:56 WBC (3.8-10.6) k/uL RBC (4.30-5.90) m/uL Hgb (13.0-17.5) gm/dL Hct (39.0-53.0) % MCV (80.0-100.0) fL MCHC (31.0-37.0) g/dL Plt Count (150-450) k/uL ABG pCO2 (35-45) mmHg ABG HCO3 (21-25) mmol/L ABG O2 Saturation (94-97) % Potassium (3.5-5.1) mmol/L Chloride (98-107) mmol/L Carbon Dioxide (22-30) mmol/L BUN (9-20) mg/dL Glucose (74-99) mg/dL POC Glucose (mg/dL) 153 H 157 H 145 H (75-99) mg/dL Calcium (8.4-10.2) mg/dL 11/04/19 11/04/19 11/04/19 Range/Units 02:07 02:59 04:00 WBC 11.2 H (3.8-10.6) k/uL RBC 2.53 L (4.30-5.90) m/uL Hgb 7.8 L (13.0-17.5) gm/dL Hct 26.0 L (39.0-53.0) % MCV 102.9 H (80.0-100.0) fL MCHC 29.8 L (31.0-37.0) g/dL Plt Count 834 H (150-450) k/uL ABG pCO2 (35-45) mmHg ABG HCO3 (21-25) mmol/L ABG O2 Saturation (94-97) % Potassium (3.5-5.1) mmol/L Chloride (98-107) mmol/L Carbon Dioxide (22-30) mmol/L BUN (9-20) mg/dL Glucose (74-99) mg/dL POC Glucose (mg/dL) 150 H 142 H (75-99) mg/dL Calcium (8.4-10.2) mg/dL 11/04/19 11/04/19 11/04/19 Range/Units 04:00 04:05 05:02 WBC (3.8-10.6) k/uL RBC (4.30-5.90) m/uL Hgb (13.0-17.5) gm/dL Hct (39.0-53.0) % MCV (80.0-100.0) fL MCHC (31.0-37.0) g/dL Plt Count (150-450) k/uL ABG pCO2 (35-45) mmHg ABG HCO3 (21-25) mmol/L ABG O2 Saturation (94-97) % Potassium 3.4 L (3.5-5.1) mmol/L Chloride 117 H (98-107) mmol/L Carbon Dioxide 19 L (22-30) mmol/L BUN 22 H (9-20) mg/dL Glucose 137 H (74-99) mg/dL POC Glucose (mg/dL) 148 H 142 H (75-99) mg/dL Calcium 7.2 L (8.4-10.2) mg/dL 11/04/19 11/04/19 11/04/19 Range/Units 06:55 09:20 10:31 WBC (3.8-10.6) k/uL RBC (4.30-5.90) m/uL Hgb (13.0-17.5) gm/dL Hct (39.0-53.0) % MCV (80.0-100.0) fL MCHC (31.0-37.0) g/dL Plt Count (150-450) k/uL ABG pCO2 (35-45) mmHg ABG HCO3 (21-25) mmol/L ABG O2 Saturation (94-97) % Potassium (3.5-5.1) mmol/L Chloride (98-107) mmol/L Carbon Dioxide (22-30) mmol/L BUN (9-20) mg/dL Glucose (74-99) mg/dL POC Glucose (mg/dL) 120 H 179 H 152 H (75-99) mg/dL Calcium (8.4-10.2) mg/dL 11/04/19 Range/Units 11:08 WBC (3.8-10.6) k/uL RBC (4.30-5.90) m/uL Hgb (13.0-17.5) gm/dL Hct (39.0-53.0) % MCV (80.0-100.0) fL MCHC (31.0-37.0) g/dL Plt Count (150-450) k/uL ABG pCO2 (35-45) mmHg ABG HCO3 (21-25) mmol/L ABG O2 Saturation (94-97) % Potassium (3.5-5.1) mmol/L Chloride (98-107) mmol/L Carbon Dioxide (22-30) mmol/L BUN (9-20) mg/dL Glucose (74-99) mg/dL POC Glucose (mg/dL) 118 H (75-99) mg/dL Calcium (8.4-10.2) mg/dL Microbiology - Last 24 Hours (Table) 10/28/19 14:00 Blood Culture - Final Blood No Growth after 144 hours Assessment and Plan Plan: Assessment: 1. Acute kidney injury secondary to ATN secondary to severe intravascular volume depletion due to hyperglycemia and further worsened with hypotension. Creatinine peaked at 2.7 this admission and is 0.99 today. 2. Rule out chronic kidney disease. Creatinine was in the range of 1.2-1.5 in July 2018. No proteinuria on UA. 3. Severe metabolic acidosis secondary to DKA. Improved. 4. DKA s/p insulin drip. 5. Hypernatremia secondary to lack of oral water intake. Better. 6. Possible pneumonia maintained on antibiotics. 7. Anoxic brain injury. 8. Hypokalemia from poor intake. Being replaced. Plan: Maintain tube feeding. Resume free water flushes at a rate of 200 mL every 4 hours. Potassium being replaced. Repeat sodium level this evening.
[2019-11-04 12:10] LABS: Glucose,Whole Blood 145 mg/dL (75-99)
[2019-11-04] MEDS: NOREPINEPHRINE 32 MG in SODIUM CHLORIDE 0.9% 218 ML IV SCH (12:12)
[2019-11-04 13:26] LABS: Glucose,Whole Blood 170 mg/dL (75-99)
--- NOTE | 2019-11-04 14:18 | P.CONS ---
History of Present Illness - Reason for Consult Consult date: 11/04/19 Wound care - History of Present Illness His is an 79-year-old gentleman being seen in the ICU for nonhealing ulceration to the coccyx. Patient lives extubated on 11/03/2019. He has been in the hospital since 10/21/2019. Patient developed a deep tissue injury to the coccyx. A foam sacrum border dressing was applied to the site. At this time the area has opened with fat layer exposure with a small amount of serosanguineous drainage noted. Patient's past medical history includes dementia, diabetes mellitus, hypertension, osteoarthritis, rheumatoid arthritis AAA and skin cancer. Patient was a former smoker. Review of Systems Review Of Systems: Constitutional: No fever, no chills, no night sweats. No weight change. No weakness, fatigue or lethargy. No daytime sleepiness. Integumentary:reports wounds, no lesions. No rash or pruritus. No unusual bruising. No change in hair or nails. 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 years ago, AAA-extending to the iliacs measuring 4.6 cm based on the previous computed tomography scan imaging, DJD,back pain, skin cancer, History of Any Multi-Drug Resistant Organisms: None Reported Year Discovered:: None MDRO Source:: None Past Surgical History: Adenoidectomy, Joint Replacement, Tonsillectomy Additional Past Surgical History / Comment(s): left hip, left knee replaced, Past Anesthesia/Blood Transfusion Reactions: No Reported Reaction Past Psychological History: No Psychological Hx Reported Smoking Status: Former smoker Past Alcohol Use History: None Reported Past Drug Use History: None Reported - Past Family History Son(s) Additional Family Medical History / Comment(s): unable to obtain patient not good historian Mother Additional Family Medical History / Comment(s): unable to obtain patient not a good historian Medications and Allergies Home Medications Medication Instructions Recorded Confirmed Type DULoxetine HCL [Cymbalta] 60 mg PO DAILY 05/13/18 10/21/19 History Donepezil [Aricept] 5 mg PO HS #30 tab 05/15/18 10/21/19 Rx Cholecalciferol [Vitamin D3 (25 1,000 unit PO DAILY 07/27/18 10/21/19 History Mcg = 1000 Iu)] Lisinopril-Hctz 20-12.5 mg 1 tab PO BID 07/27/18 10/21/19 History [Zestoretic 20-12.5] Pantoprazole [Protonix] 40 mg PO DAILY #30 tablet. 07/28/18 10/21/19 Rx Cyanocobalamin (Vitamin B-12) 1,000 mcg PO DAILY 10/21/19 10/21/19 History [Vitamin B-12] Diclofenac Sodium [Voltaren Gel] 2 gram TOPICAL QID 10/21/19 10/21/19 History HYDROcodone/APAP 5-325MG [[place] 1 tab PO TID PRN 10/21/19 10/21/19 History 5-325] Linagliptin [Tradjenta] 5 mg PO DAILY 10/21/19 10/21/19 History Pravastatin Sodium [Pravachol] 40 mg PO DAILY 10/21/19 10/21/19 History Zolpidem [Ambien] 5 mg PO HS PRN 10/21/19 10/21/19 History glipiZIDE [Glucotrol] 5 mg PO AC-BID 10/21/19 10/21/19 History metFORMIN HCL [metFORMIN HCL ER 500 mg PO BID 10/21/19 10/21/19 History Osmotic] Allergies Allergy/AdvReac Type Severity Reaction Status Date / Time amoxicillin [Amoxicillin] Allergy Nausea & Verified 10/21/19 20:36 Vomiting & Diarrhea morphine Allergy Unknown Verified 10/21/19 20:36 Physical Exam Vitals: Vital Signs Temp Pulse Resp Pulse Ox 11/04/19 13:00 95 29 H 96 11/04/19 12:10 29 H 11/04/19 12:00 100.3 F H 95 22 98 11/04/19 11:00 101 H 28 H 94 L 11/04/19 10:00 104 H 27 H 92 L 11/04/19 09:00 100.6 F H 99 31 H 92 L 11/04/19 08:25 27 H 11/04/19 08:00 98 30 H 92 L 11/04/19 07:00 95 26 H 92 L 11/04/19 06:00 97 32 H 93 L 11/04/19 05:00 95 32 H 95 11/04/19 04:00 99.8 F H 98 23 95 11/04/19 03:00 95 31 H 93 L 11/04/19 02:00 92 22 95 11/04/19 01:00 96 32 H 93 L 11/04/19 00:05 97 26 H 93 L 11/04/19 00:00 100.8 F H 101 H 25 H 93 L 11/03/19 23:00 96 32 H 95 11/03/19 22:00 94 28 H 94 L 11/03/19 21:00 94 27 H 96 11/03/19 20:00 100.2 F H 98 25 H 96 11/03/19 19:00 93 27 H 94 L 11/03/19 18:00 91 21 96 11/03/19 17:00 92 23 97 11/03/19 16:00 99.6 F 94 22 96 11/03/19 15:00 97 30 H 96 Intake and Output 11/03/19 11/04/19 11/04/19 22:59 06:59 14:59 Intake Total 7632.414 7239.513 1265.043 Output Total 735 1085 3000 Balance 765.739 855.513 -1734.957 Intake: IV 104 517 78 .9 Sodium Chloride @ 10ml 80 90 60 /hr Magnesium Sulfate-D5w Pmx 200 1 gm In Dextrose/Water 1 100ml.bag @ 100 mls/hr IVPB Q1H INDU Rx#: [id number] Piperacillin-Tazobactam 3 100 .375 gm In Sodium Chloride 0.9% 100 ml @ 25 mls/hr IVPB Q8H INDU Rx#: [id number] Pressure Bag 24 27 18 metroNIDAZOLE-NS PMX 500 100 mg In Saline 1 100ml.bag @ 100 mls/hr IVPB Q8HR INDU Rx#:[id number] Intake, IV Titration 36.739 63.513 17.043 Amount Insulin Regular 100 unit 36.739 63.513 17.043 In Sodium Chloride 0.9% 100 ml @ Per Protocol IV .Q0M INDU Rx#:[id number] Tube Feeding 560 560 420 Other 800 800 750 Output: Urine 735 1085 2000 Stool 1000 Other: Voiding Method Indwelling Catheter Indwelling Catheter Indwelling Catheter ABP, PAP, CO, CI - Last 8 Hours Arterial Blood Pressure 120/42 Arterial Blood Pressure 140/51 Arterial Blood Pressure 120/65 Arterial Blood Pressure 127/49 Arterial Blood Pressure 149/52 Arterial Blood Pressure 126/64 Arterial Blood Pressure 145/43 Physical exam: General Appearance: Alert, cooperative, no distress, appears stated age. Skin: Stage II pressure injury noted to the coccyx, measuring approximately 1 x 1.5 x 0.1 minimal granulation noted within the wound bed moderate slough no tunneling or undermining noted, ecchymosis noted to the 10:00 to 1:00 spot to the periwound, all other Skin color, texture, tugor normal, no rashes or lesions. Neurologic: Alert oriented x3 Results CBC & Chem 7: 11/04/19 04:00 11/04/19 04:00 Labs: Abnormal Lab Results - Last 24 Hours (Table) 11/03/19 11/03/19 11/03/19 Range/Units 15:18 16:01 17:04 WBC (3.8-10.6) k/uL RBC (4.30-5.90) m/uL Hgb (13.0-17.5) gm/dL Hct (39.0-53.0) % MCV (80.0-100.0) fL MCHC (31.0-37.0) g/dL Plt Count (150-450) k/uL Potassium (3.5-5.1) mmol/L Chloride (98-107) mmol/L Carbon Dioxide (22-30) mmol/L BUN (9-20) mg/dL Glucose (74-99) mg/dL POC Glucose (mg/dL) 140 H 136 H 150 H (75-99) mg/dL Calcium (8.4-10.2) mg/dL 11/03/19 11/03/19 11/03/19 Range/Units 18:08 18:56 20:25 WBC (3.8-10.6) k/uL RBC (4.30-5.90) m/uL Hgb (13.0-17.5) gm/dL Hct (39.0-53.0) % MCV (80.0-100.0) fL MCHC (31.0-37.0) g/dL Plt Count (150-450) k/uL Potassium (3.5-5.1) mmol/L Chloride (98-107) mmol/L Carbon Dioxide (22-30) mmol/L BUN (9-20) mg/dL Glucose (74-99) mg/dL POC Glucose (mg/dL) 127 H 147 H 153 H (75-99) mg/dL Calcium (8.4-10.2) mg/dL 11/03/19 11/03/19 11/03/19 Range/Units 21:18 22:08 23:09 WBC (3.8-10.6) k/uL RBC (4.30-5.90) m/uL Hgb (13.0-17.5) gm/dL Hct (39.0-53.0) % MCV (80.0-100.0) fL MCHC (31.0-37.0) g/dL Plt Count (150-450) k/uL Potassium (3.5-5.1) mmol/L Chloride (98-107) mmol/L Carbon Dioxide (22-30) mmol/L BUN (9-20) mg/dL Glucose (74-99) mg/dL POC Glucose (mg/dL) 151 H 150 H 153 H (75-99) mg/dL Calcium (8.4-10.2) mg/dL 11/04/19 11/04/19 11/04/19 Range/Units 00:03 00:56 02:07 WBC (3.8-10.6) k/uL RBC (4.30-5.90) m/uL Hgb (13.0-17.5) gm/dL Hct (39.0-53.0) % MCV (80.0-100.0) fL MCHC (31.0-37.0) g/dL Plt Count (150-450) k/uL Potassium (3.5-5.1) mmol/L Chloride (98-107) mmol/L Carbon Dioxide (22-30) mmol/L BUN (9-20) mg/dL Glucose (74-99) mg/dL POC Glucose (mg/dL) 157 H 145 H 150 H (75-99) mg/dL Calcium (8.4-10.2) mg/dL 11/04/19 11/04/19 11/04/19 Range/Units 02:59 04:00 04:00 WBC 11.2 H (3.8-10.6) k/uL RBC 2.53 L (4.30-5.90) m/uL Hgb 7.8 L (13.0-17.5) gm/dL Hct 26.0 L (39.0-53.0) % MCV 102.9 H (80.0-100.0) fL MCHC 29.8 L (31.0-37.0) g/dL Plt Count 834 H (150-450) k/uL Potassium 3.4 L (3.5-5.1) mmol/L Chloride 117 H (98-107) mmol/L Carbon Dioxide 19 L (22-30) mmol/L BUN 22 H (9-20) mg/dL Glucose 137 H (74-99) mg/dL POC Glucose (mg/dL) 142 H (75-99) mg/dL Calcium 7.2 L (8.4-10.2) mg/dL 11/04/19 11/04/19 11/04/19 Range/Units 04:05 05:02 06:55 WBC (3.8-10.6) k/uL RBC (4.30-5.90) m/uL Hgb (13.0-17.5) gm/dL Hct (39.0-53.0) % MCV (80.0-100.0) fL MCHC (31.0-37.0) g/dL Plt Count (150-450) k/uL Potassium (3.5-5.1) mmol/L Chloride (98-107) mmol/L Carbon Dioxide (22-30) mmol/L BUN (9-20) mg/dL Glucose (74-99) mg/dL POC Glucose (mg/dL) 148 H 142 H 120 H (75-99) mg/dL Calcium (8.4-10.2) mg/dL 11/04/19 11/04/19 11/04/19 Range/Units 09:20 10:31 11:08 WBC (3.8-10.6) k/uL RBC (4.30-5.90) m/uL Hgb (13.0-17.5) gm/dL Hct (39.0-53.0) % MCV (80.0-100.0) fL MCHC (31.0-37.0) g/dL Plt Count (150-450) k/uL Potassium (3.5-5.1) mmol/L Chloride (98-107) mmol/L Carbon Dioxide (22-30) mmol/L BUN (9-20) mg/dL Glucose (74-99) mg/dL POC Glucose (mg/dL) 179 H 152 H 118 H (75-99) mg/dL Calcium (8.4-10.2) mg/dL 11/04/19 11/04/19 Range/Units 12:08 13:24 WBC (3.8-10.6) k/uL RBC (4.30-5.90) m/uL Hgb (13.0-17.5) gm/dL Hct (39.0-53.0) % MCV (80.0-100.0) fL MCHC (31.0-37.0) g/dL Plt Count (150-450) k/uL Potassium (3.5-5.1) mmol/L Chloride (98-107) mmol/L Carbon Dioxide (22-30) mmol/L BUN (9-20) mg/dL Glucose (74-99) mg/dL POC Glucose (mg/dL) 145 H 170 H (75-99) mg/dL Calcium (8.4-10.2) mg/dL Microbiology - Last 24 Hours (Table) 10/25/19 11:35 Blood Fungal Culture - Preliminary Blood 10/28/19 14:00 Blood Culture - Final Blood No Growth after 144 hours Assessment and Plan (1) Pressure ulcer of coccygeal region, stage 2 Current Visit: Yes Status: Acute Code(s): L89.152 - PRESSURE ULCER OF SACRAL REGION, STAGE 2 SNOMED Code(s): 307651579 Plan: Apply honey alginate, saline moistened gauze and a sacral foam border gauze. Change Sunday once a . Continue with turning every 2 hours. Consult nutrition. May consider outpatient wound care once discharged. Thank you for the consultation any questions please contact the wound care center DNP note has been reviewed and discussed with Dr. Merritt and the impression and plan of care has been directed as dictated.
[2019-11-04 15:21] LABS: Glucose,Whole Blood 139 mg/dL (75-99)
[2019-11-04 16:45] LABS: Glucose,Whole Blood 123 mg/dL (75-99)
--- NOTE | 2019-11-04 17:25 | PN ---
PROGRESS NOTE DATE OF SERVICE: 11/04/2019 This 79-year-old gentleman who was admitted with acute abdominal sepsis with acute small-bowel obstruction is being closely monitored. The patient had continued fever. The patient had acute hypoxic respiratory failure. The patient is extubated at this time. The patient had a coccygeal pressure ulcer stage II as well. Past medical history reviewed. Review of systems could not be taken; the patient is confused at this time. CURRENT MEDICATIONS: Reviewed. They include: 1. Tylenol p.r.n. 2. Cordarone 200 mg p.o. b.i.d. 3. Aspirin 81 mg p.o. daily. 4. Fluconazole 100 mg p.o. daily. 5. Dilaudid. 6. Heparin. 7. Zestril. 8. Flagyl. 9. P.r.n. medications. 10.Narcan. 11.Nitrostat. 12.Zosyn 3.375 IV q.6. PHYSICAL EXAMINATION: Patient is alert, oriented 2. Pulse is 95, blood pressure 124/48, respiration 29, temperature 100.3, pulse ox 96% on 4 L. HEENT: Conjunctivae normal. NECK: No jugular venous distention. CARDIOVASCULAR SYSTEM: S1, S2 muffled. RESPIRATORY SYSTEM: Breath sounds diminished at the bases. Bilateral scattered rhonchi and crackles. ABDOMEN: Soft, non-tender. LEGS: No edema. No swelling. NERVOUS SYSTEM: Diffusely weak. LABS: WBC 11.2, hemoglobin 7.8. Otherwise, potassium is 3.4. Sputum cultures have Layne albicans. ASSESSMENT: 1. Acute abdominal sepsis with acute small-bowel obstruction, present on admission. 2. Continued fever. 3. Acute hypoxic respiratory failure secondary to hypovolemia and septic shock, status post mechanical ventilation. 4. Change in mental status, metabolic encephalopathy, multifactorial. 5. Acute right-sided pneumonia, possibly aspiration with sepsis. 6. Acute nonketotic hyperosmolar diabetic state with severe hyperglycemia, status post IV insulin drip. 7. Acute metabolic encephalopathy with mental status changes, multifactorial. 8. Dementia. 9. Layne albicans in the sputum. 10.Pseudohyponatremia. 11.Distal abdominal aortic aneurysm measuring 4.4 cm. 12.Peripheral vascular disease. 13.Acute shock liver. 14.Congestive heart failure with chronic systolic, dysfunction ejection fraction 30% to 35%. 15.Prolonged QTc of 510, improved. 16.Acute [id number]-elevation myocardial infarction, likely type 2, from demand ischemia, present on admission. 17.Acute kidney injury, acute tubular necrosis, with prerenal factors. 18.Possible chronic kidney disease, stage II baseline. 19.Hypertension. 20.History of pneumonia. 21.New-onset atrial fibrillation, paroxysmal. 22.FULL CODE. RECOMMENDATIONS AND DISCUSSION: In this 79-year-old gentleman who presented with multiple complex medical issues, we will monitor the patient closely, continue the current medications, continue with symptomatic treatment. The patient has been extubated change in mental status. Patient is currently FULL CODE. I would recommend to continue the IV antibiotics. The patient had continued fever. I would recommend panculture at this time. Otherwise, we will monitor the electrolytes closely. Closely follow with Pulmonary. Guarded prognosis. Further recommendations to follow. PARK / SALVADOR: [id number] / MTDD
--- NOTE | 2019-11-04 18:18 | P.PN ---
Subjective Progress Note Date: 11/04/19 CHIEF COMPLAINT: Sepsis of vent dependent respiratory failure HISTORY OF PRESENT ILLNESS: The patient is a 79 year old male who presented to the hospital with severe dehydration, hyperglycemia over 1800, shock due to vascular hypotension, small bowel obstruction, liver shock as well as acute kidney injury and elevated troponins over 2 weeks ago. He has been intubated for over 2 weeks and recently extubated in the last 24 to 48 hrs. He had prolonged limited neurological activity however he has woken up. He is having bowel movements daily. He has baseline dementia. No reports of blood in his stools. He is in the intensive care unit. REVIEW OF ORGAN SYSTEMS: No chest pain. History of fevers, T-max 100.8. No productive sputum PHYSICAL EXAM: VITALS: Reviewed CONSTITUTIONAL: Well developed and in no acute distress. EYES: Conjuctivae without sclera icterus. Extraocular movements grossly intact. HEAD, EARS, NOSE, THROAT: Moist buccal mucosa. Head is atraumatic, normocephalic. No nasal drainage. NECK: Supple. No thyroidomegaly. RESPIRATORY: Nonlabored respirations. No gross wheezes. CARDIOVASCULAR: Palpable 2+ radial pulses. ABDOMEN: Soft. Nontender. Nondistended. MUSCULOSKELETAL: No clubbing, cyanosis. SKIN: Warm and well perfused with good skin turgor. NEUROLOGIC: No focal or lateralizing signs. PSYCH: Alert to self. CLINCAL LABS: Reviewed. WBC down from 15.4-11.2 STUDIES: Chest x-ray independent review without evidence of free air. Right greater than left atelectasis. REPORT: Findings consistent with vascular congestion on chest x-ray. ASSESSMENT: 1. Small bowel obstruction resolved 2. Abdominal aortic aneurysm 3. Uncontrolled diabetes type 2 with hyperglycemia 4. Lactic acidosis 5. Acute respiratory failure 6. Dementia 7. Acute kidney injury PLAN: 1. He has made marked recovery in the last 3 days, and now is awake. 2. With his prolonged ventilatory status, may benefit from swallowing evaluation prior to oral feeds 3. Pulmonary toilet for atelectasis Objective - Vital Signs Vital signs: Vital Signs Temp 99.1 F 11/04/19 16:00 Pulse 88 11/04/19 17:00 Resp 33 H 11/04/19 17:00 BP 121/65 10/31/19 23:00 Pulse Ox 93 L 11/04/19 17:00 Intake & Output 11/03/19 11/04/19 11/04/19 18:59 06:59 18:59 Intake Total 2371.111 2589.513 1614.222 Output Total 1840 1335 4475 Balance 001.175 7204.513 -2860.778 Weight 88.2 kg Intake: IV 181 556 130 .9 Sodium Chloride @ 10ml 120 120 100 /hr Magnesium Sulfate-D5w Pmx 200 1 gm In Dextrose/Water 1 100ml.bag @ 100 mls/hr IVPB Q1H INDU Rx#: [id number] Piperacillin-Tazobactam 3 25 100 .375 gm In Sodium Chloride 0.9% 100 ml @ 25 mls/hr IVPB Q8H INDU Rx#: [id number] Pressure Bag 36 36 30 metroNIDAZOLE-NS PMX 500 100 mg In Saline 1 100ml.bag @ 100 mls/hr IVPB Q8HR INDU Rx#:[id number] Intake, IV Titration 80.111 63.513 34.222 Amount Insulin Regular 100 unit 80.111 63.513 34.222 In Sodium Chloride 0.9% 100 ml @ Per Protocol IV .Q0M INDU Rx#:[id number] Tube Feeding 910 770 700 Other 1200 1200 750 Output: Urine 840 1335 2475 Stool 1000 2000 Other: Voiding Method Indwelling Catheter Indwelling Catheter Indwelling Catheter ABP, PAP, CO, CI - Last Documented Arterial Blood Pressure 111/40 - Labs CBC & Chem 7: 11/04/19 04:00 11/04/19 16:44 Labs: Abnormal Lab Results - Last 24 Hours (Table) 11/03/19 11/03/19 11/03/19 Range/Units 18:08 18:56 20:25 WBC (3.8-10.6) k/uL RBC (4.30-5.90) m/uL Hgb (13.0-17.5) gm/dL Hct (39.0-53.0) % MCV (80.0-100.0) fL MCHC (31.0-37.0) g/dL Plt Count (150-450) k/uL Potassium (3.5-5.1) mmol/L Chloride (98-107) mmol/L Carbon Dioxide (22-30) mmol/L BUN (9-20) mg/dL Glucose (74-99) mg/dL POC Glucose (mg/dL) 127 H 147 H 153 H (75-99) mg/dL Calcium (8.4-10.2) mg/dL 11/03/19 11/03/19 11/03/19 Range/Units 21:18 22:08 23:09 WBC (3.8-10.6) k/uL RBC (4.30-5.90) m/uL Hgb (13.0-17.5) gm/dL Hct (39.0-53.0) % MCV (80.0-100.0) fL MCHC (31.0-37.0) g/dL Plt Count (150-450) k/uL Potassium (3.5-5.1) mmol/L Chloride (98-107) mmol/L Carbon Dioxide (22-30) mmol/L BUN (9-20) mg/dL Glucose (74-99) mg/dL POC Glucose (mg/dL) 151 H 150 H 153 H (75-99) mg/dL Calcium (8.4-10.2) mg/dL 11/04/19 11/04/19 11/04/19 Range/Units 00:03 00:56 02:07 WBC (3.8-10.6) k/uL RBC (4.30-5.90) m/uL Hgb (13.0-17.5) gm/dL Hct (39.0-53.0) % MCV (80.0-100.0) fL MCHC (31.0-37.0) g/dL Plt Count (150-450) k/uL Potassium (3.5-5.1) mmol/L Chloride (98-107) mmol/L Carbon Dioxide (22-30) mmol/L BUN (9-20) mg/dL Glucose (74-99) mg/dL POC Glucose (mg/dL) 157 H 145 H 150 H (75-99) mg/dL Calcium (8.4-10.2) mg/dL 11/04/19 11/04/19 11/04/19 Range/Units 02:59 04:00 04:00 WBC 11.2 H (3.8-10.6) k/uL RBC 2.53 L (4.30-5.90) m/uL Hgb 7.8 L (13.0-17.5) gm/dL Hct 26.0 L (39.0-53.0) % MCV 102.9 H (80.0-100.0) fL MCHC 29.8 L (31.0-37.0) g/dL Plt Count 834 H (150-450) k/uL Potassium 3.4 L (3.5-5.1) mmol/L Chloride 117 H (98-107) mmol/L Carbon Dioxide 19 L (22-30) mmol/L BUN 22 H (9-20) mg/dL Glucose 137 H (74-99) mg/dL POC Glucose (mg/dL) 142 H (75-99) mg/dL Calcium 7.2 L (8.4-10.2) mg/dL 11/04/19 11/04/19 11/04/19 Range/Units 04:05 05:02 06:55 WBC (3.8-10.6) k/uL RBC (4.30-5.90) m/uL Hgb (13.0-17.5) gm/dL Hct (39.0-53.0) % MCV (80.0-100.0) fL MCHC (31.0-37.0) g/dL Plt Count (150-450) k/uL Potassium (3.5-5.1) mmol/L Chloride (98-107) mmol/L Carbon Dioxide (22-30) mmol/L BUN (9-20) mg/dL Glucose (74-99) mg/dL POC Glucose (mg/dL) 148 H 142 H 120 H (75-99) mg/dL Calcium (8.4-10.2) mg/dL 11/04/19 11/04/19 11/04/19 Range/Units 09:20 10:31 11:08 WBC (3.8-10.6) k/uL RBC (4.30-5.90) m/uL Hgb (13.0-17.5) gm/dL Hct (39.0-53.0) % MCV (80.0-100.0) fL MCHC (31.0-37.0) g/dL Plt Count (150-450) k/uL Potassium (3.5-5.1) mmol/L Chloride (98-107) mmol/L Carbon Dioxide (22-30) mmol/L BUN (9-20) mg/dL Glucose (74-99) mg/dL POC Glucose (mg/dL) 179 H 152 H 118 H (75-99) mg/dL Calcium (8.4-10.2) mg/dL 11/04/19 11/04/19 11/04/19 Range/Units 12:08 13:24 15:20 WBC (3.8-10.6) k/uL RBC (4.30-5.90) m/uL Hgb (13.0-17.5) gm/dL Hct (39.0-53.0) % MCV (80.0-100.0) fL MCHC (31.0-37.0) g/dL Plt Count (150-450) k/uL Potassium (3.5-5.1) mmol/L Chloride (98-107) mmol/L Carbon Dioxide (22-30) mmol/L BUN (9-20) mg/dL Glucose (74-99) mg/dL POC Glucose (mg/dL) 145 H 170 H 139 H (75-99) mg/dL Calcium (8.4-10.2) mg/dL 11/04/19 Range/Units 16:43 WBC (3.8-10.6) k/uL RBC (4.30-5.90) m/uL Hgb (13.0-17.5) gm/dL Hct (39.0-53.0) % MCV (80.0-100.0) fL MCHC (31.0-37.0) g/dL Plt Count (150-450) k/uL Potassium (3.5-5.1) mmol/L Chloride (98-107) mmol/L Carbon Dioxide (22-30) mmol/L BUN (9-20) mg/dL Glucose (74-99) mg/dL POC Glucose (mg/dL) 123 H (75-99) mg/dL Calcium (8.4-10.2) mg/dL Microbiology - Last 24 Hours (Table) 10/25/19 11:35 Blood Fungal Culture - Preliminary Blood 10/28/19 14:00 Blood Culture - Final Blood No Growth after 144 hours Assessment and Plan (1) Hyponatremia Current Visit: Yes Status: Acute Code(s): E87.1 - HYPO-OSMOLALITY AND HYPONATREMIA SNOMED Code(s): 81405185 (2) Hyperkalemia Current Visit: Yes Status: Acute Code(s): E87.5 - HYPERKALEMIA SNOMED Code(s): 64123581 (3) Sigmoid diverticulitis Current Visit: Yes Status: Acute Code(s): K57.32 - DVTRCLI OF LG INT W/O PERFORATION OR ABSCESS W/O BLEEDING SNOMED Code(s): 821656694 (4) Dynamic ileus Current Visit: Yes Status: Acute Code(s): K56.7 - ILEUS, UNSPECIFIED SNOMED Code(s): 75921271 (5) Hyperosmolar syndrome Current Visit: Yes Status: Acute Code(s): E87.0 - HYPEROSMOLALITY AND HYPERNATREMIA SNOMED Code(s): 62532940 (6) Hyperosmolarity due to secondary diabetes mellitus Current Visit: Yes Status: Acute Code(s): E13.00 - OTH DIAB W HYPROSM W/O NONKET HYPRGLY-HYPROS COMA ([facility]) SNOMED Code(s): 22255618 (7) Altered mental state Current Visit: No Status: Acute Code(s): R41.82 - ALTERED MENTAL STATUS, UNSPECIFIED SNOMED Code(s): 222323724 (8) Dementia Current Visit: No Status: Acute Code(s): F03.90 - UNSPECIFIED DEMENTIA WITHOUT BEHAVIORAL DISTURBANCE SNOMED Code(s): 69197308 (9) Renal insufficiency syndrome Current Visit: No Status: Acute Code(s): N28.9 - DISORDER OF KIDNEY AND URETER, UNSPECIFIED SNOMED Code(s): 519469036 (10) Shock liver Current Visit: Yes Status: Acute Code(s): K72.00 - ACUTE AND SUBACUTE HEPATIC FAILURE WITHOUT COMA SNOMED Code(s): 436533820 (11) Sepsis Current Visit: Yes Status: Acute Code(s): A41.9 - SEPSIS, UNSPECIFIED ORGANISM SNOMED Code(s): 10205374
[2019-11-04 18:56] LABS: Glucose,Whole Blood 203 mg/dL (75-99)
[2019-11-04 19:58] LABS: Glucose,Whole Blood 191 mg/dL (75-99)
--- NOTE | 2019-11-04 21:02 | P.PN ---
Subjective Progress Note Date: 11/04/19 Principal diagnosis: hyperosmolar nonketotic acidosis possible anoxic brain injury Metabolic encephalopathy Subjective: Over the interim this past weekend the patient has now begun to be more responsive with spontaneous eye opening and attempts at verbalizing. He still however is unable to follow commands clearly. The EEG has improved with showing less likely evidence of any a left graphic seizure activity. Nursing staff reports that they have not seen anything that would be suspicious for seizures. He does track but is unable to speak clearly. He appears to be trying to make conversation but his words were garbled and non-comprehensible. Objective - Vital Signs Vital signs: Vital Signs Temp 99.1 F 11/04/19 16:00 Pulse 96 11/04/19 19:00 Resp 29 H 11/04/19 19:00 BP 121/65 10/31/19 23:00 Pulse Ox 95 11/04/19 19:00 Intake & Output 11/04/19 11/04/19 11/05/19 06:59 18:59 06:59 Intake Total 2589.513 1697.222 89.262 Output Total 1335 4550 50 Balance 1254.513 -2852.778 39.262 Intake: IV 556 143 13 .9 Sodium Chloride @ 10ml 120 110 10 /hr Magnesium Sulfate-D5w Pmx 200 1 gm In Dextrose/Water 1 100ml.bag @ 100 mls/hr IVPB Q1H INDU Rx#: [id number] Piperacillin-Tazobactam 3 100 .375 gm In Sodium Chloride 0.9% 100 ml @ 25 mls/hr IVPB Q8H INDU Rx#: [id number] Pressure Bag 36 33 3 metroNIDAZOLE-NS PMX 500 100 mg In Saline 1 100ml.bag @ 100 mls/hr IVPB Q8HR INDU Rx#:[id number] Intake, IV Titration 63.513 34.222 6.262 Amount Insulin Regular 100 unit 63.513 34.222 6.262 In Sodium Chloride 0.9% 100 ml @ Per Protocol IV .Q0M INDU Rx#:[id number] Tube Feeding 770 770 70 Other 1200 750 Output: Urine 1335 2550 50 Stool 2000 Other: Voiding Method Indwelling Catheter Indwelling Catheter ABP, PAP, CO, CI - Last Documented Arterial Blood Pressure 119/43 - Exam Neurological exam Mental status: Patient initially had eyes closed but when spoken to he awakens and his eyes open. He tracked he was unable to follow any commands he speech was garbled and dysarthric. Next line pupils: Asymmetry persists 3 mm on the right 2 mm on the left sluggishly reactive to light neck sign cranial nerves: No facial asymmetry noted. Gag reflex is present but somewhat diminished. No fasciculations noted in the face. Motor examination generalized hope hypotonia throughout. There is minimal spontaneous movement in the legs. There is some spontaneous movement in the arms left greater than right. Due to the patient's mental status unable to fully do for full neuro exam. Deep tendon reflexes are trace throughout. Sensory examination unable to formally assess. Coordination and gait deferred. 4 score scale (14) GSC coma scale; (10) - Labs CBC & Chem 7: 11/04/19 04:00 11/04/19 16:44 Labs: Abnormal Lab Results - Last 24 Hours (Table) 11/03/19 11/03/19 11/03/19 Range/Units 21:18 22:08 23:09 WBC (3.8-10.6) k/uL RBC (4.30-5.90) m/uL Hgb (13.0-17.5) gm/dL Hct (39.0-53.0) % MCV (80.0-100.0) fL MCHC (31.0-37.0) g/dL Plt Count (150-450) k/uL Potassium (3.5-5.1) mmol/L Chloride (98-107) mmol/L Carbon Dioxide (22-30) mmol/L BUN (9-20) mg/dL Glucose (74-99) mg/dL POC Glucose (mg/dL) 151 H 150 H 153 H (75-99) mg/dL Calcium (8.4-10.2) mg/dL 11/04/19 11/04/19 11/04/19 Range/Units 00:03 00:56 02:07 WBC (3.8-10.6) k/uL RBC (4.30-5.90) m/uL Hgb (13.0-17.5) gm/dL Hct (39.0-53.0) % MCV (80.0-100.0) fL MCHC (31.0-37.0) g/dL Plt Count (150-450) k/uL Potassium (3.5-5.1) mmol/L Chloride (98-107) mmol/L Carbon Dioxide (22-30) mmol/L BUN (9-20) mg/dL Glucose (74-99) mg/dL POC Glucose (mg/dL) 157 H 145 H 150 H (75-99) mg/dL Calcium (8.4-10.2) mg/dL 11/04/19 11/04/19 11/04/19 Range/Units 02:59 04:00 04:00 WBC 11.2 H (3.8-10.6) k/uL RBC 2.53 L (4.30-5.90) m/uL Hgb 7.8 L (13.0-17.5) gm/dL Hct 26.0 L (39.0-53.0) % MCV 102.9 H (80.0-100.0) fL MCHC 29.8 L (31.0-37.0) g/dL Plt Count 834 H (150-450) k/uL Potassium 3.4 L (3.5-5.1) mmol/L Chloride 117 H (98-107) mmol/L Carbon Dioxide 19 L (22-30) mmol/L BUN 22 H (9-20) mg/dL Glucose 137 H (74-99) mg/dL POC Glucose (mg/dL) 142 H (75-99) mg/dL Calcium 7.2 L (8.4-10.2) mg/dL 11/04/19 11/04/19 11/04/19 Range/Units 04:05 05:02 06:55 WBC (3.8-10.6) k/uL RBC (4.30-5.90) m/uL Hgb (13.0-17.5) gm/dL Hct (39.0-53.0) % MCV (80.0-100.0) fL MCHC (31.0-37.0) g/dL Plt Count (150-450) k/uL Potassium (3.5-5.1) mmol/L Chloride (98-107) mmol/L Carbon Dioxide (22-30) mmol/L BUN (9-20) mg/dL Glucose (74-99) mg/dL POC Glucose (mg/dL) 148 H 142 H 120 H (75-99) mg/dL Calcium (8.4-10.2) mg/dL 11/04/19 11/04/19 11/04/19 Range/Units 09:20 10:31 11:08 WBC (3.8-10.6) k/uL RBC (4.30-5.90) m/uL Hgb (13.0-17.5) gm/dL Hct (39.0-53.0) % MCV (80.0-100.0) fL MCHC (31.0-37.0) g/dL Plt Count (150-450) k/uL Potassium (3.5-5.1) mmol/L Chloride (98-107) mmol/L Carbon Dioxide (22-30) mmol/L BUN (9-20) mg/dL Glucose (74-99) mg/dL POC Glucose (mg/dL) 179 H 152 H 118 H (75-99) mg/dL Calcium (8.4-10.2) mg/dL 11/04/19 11/04/19 11/04/19 Range/Units 12:08 13:24 15:20 WBC (3.8-10.6) k/uL RBC (4.30-5.90) m/uL Hgb (13.0-17.5) gm/dL Hct (39.0-53.0) % MCV (80.0-100.0) fL MCHC (31.0-37.0) g/dL Plt Count (150-450) k/uL Potassium (3.5-5.1) mmol/L Chloride (98-107) mmol/L Carbon Dioxide (22-30) mmol/L BUN (9-20) mg/dL Glucose (74-99) mg/dL POC Glucose (mg/dL) 145 H 170 H 139 H (75-99) mg/dL Calcium (8.4-10.2) mg/dL 11/04/19 11/04/19 11/04/19 Range/Units 16:43 18:54 19:56 WBC (3.8-10.6) k/uL RBC (4.30-5.90) m/uL Hgb (13.0-17.5) gm/dL Hct (39.0-53.0) % MCV (80.0-100.0) fL MCHC (31.0-37.0) g/dL Plt Count (150-450) k/uL Potassium (3.5-5.1) mmol/L Chloride (98-107) mmol/L Carbon Dioxide (22-30) mmol/L BUN (9-20) mg/dL Glucose (74-99) mg/dL POC Glucose (mg/dL) 123 H 203 H 191 H (75-99) mg/dL Calcium (8.4-10.2) mg/dL Microbiology - Last 24 Hours (Table) 10/25/19 11:35 Blood Fungal Culture - Preliminary Blood Assessment and Plan Assessment: This is a 79-year-old gentleman poorly controlled diabetic admitted in acute nonketotic hyperosmolar diabetes with severe hyperglycemia POA. The patient suffered acute hypoxic respiratory failure requiring intubation and now not responding off sedation. His course was complicated with sepsis and septic shock along with kidney failure and ischemic hepatitis. Over this past weekend there has been a considerable impossible improvement neurologically arm his prior assessments. He now drinks on a [place] Coma Scale of 10 and a for score scale of 14. The patient's overall condition however still remains very guarded. He is unable to speak comprehensively or follow any commands. Thus far in serial EEGs we've not seen any indication of any electrographic seizure activity, epileptiform activity or focal slowing. Summary: 1. Acute abdominal sepsis with acute small bowel obstruction on admission. 2. Intermittent fevers. 3. Acute hypoxic respiratory failure secondary to hypovolemia, septic shock status post mechanical ventilation. 4. Altered mental status due to metabolic encephalopathy 5. Acute right sided pneumonia most likely due to aspiration and sepsis 6. Acute nonketotic hyperosmolar diabetic state with severe hyperglycemia, status post IV insulin drip 7. History of dementia prior to admission. 8. Sputum positive for [place] 9. Pseudohyponatremia 10. Distal abdominal aortic aneurysm measuring 4.4 cm 11. Peripheral vascular disease 12. Acute shock liver 13. Congestive heart failure chronic systolic and diastolic ejection fraction now at 30-35%. 14. Acute non-STEMI present on admission 15. Acute kidney injury jury, acute tubular necrosis, chronic kidney disease stage II baseline. 16. Hypertension. 17. New onset atrial fibrillation paroxysmal. Plan: 1. Continue with supportive and medical management, neuro checks every 2 hours while awake. 2. Consider a MRI of the brain without contrast to better assess the degree of anoxic brain injury most likely that is occurred. 3. Plan for family meeting to discuss long-term prognosis. Anticipate this patient will require long-term acuity care. 4. Avoid all narcotics and sedatives such as Diludid, benzos 5. Consider follow-up CT within the next 2 weeks if MRI of the brain is not possible. This patient's prognosis remains very poor due to the extensive comorbidities this patient had before the event. Neurology will continue to follow on a daily basis providing recommendations as this case evolves. Thank you for allowing me to participate in the care of your patient. Please note that there will not be neurology senior contract specialist officially this weekend but if there are any questions please fill free to contact me at [phone] Thank you for this consultation. Neurology will follow closely throughout this admission. Further recommendations will be made as this case evolves. Shilpa Jose M.D. Board Certified in Neurology and Sleep Medicine
[2019-11-04 21:10] LABS: Glucose,Whole Blood 224 mg/dL (75-99)
[2019-11-04 21:59] LABS: Glucose,Whole Blood 201 mg/dL (75-99)
[2019-11-04 22:59] LABS: Glucose,Whole Blood 144 mg/dL (75-99)
[2019-11-04 23:56] LABS: Glucose,Whole Blood 149 mg/dL (75-99)
[2019-11-05 00:56] LABS: Glucose,Whole Blood 144 mg/dL (75-99)
[2019-11-05 01:59] LABS: Glucose,Whole Blood 138 mg/dL (75-99)
[2019-11-05 03:09] LABS: Glucose,Whole Blood 156 mg/dL (75-99)
[2019-11-05] MEDS: NOREPINEPHRINE 32 MG in SODIUM CHLORIDE 0.9% 218 ML IV SCH (03:19)
[2019-11-05 04:12] LABS: Glucose,Whole Blood 143 mg/dL (75-99)
[2019-11-05 04:34] LABS: HCT 25.4 % (39.0-53.0); HGB 7.9 gm/dL (13.0-17.5); Hypochromasia Moderate; MCHC 31.3 g/dL (31.0-37.0); MCV 102.4 fL (80.0-100.0); Macrocytosis Slight; Mean Platelet Volume 8.3; Platelet Count 932 k/uL (150-450); Poikilocytosis Slight; RBC 2.48 m/uL (4.30-5.90); RDW 14.8 % (11.5-15.5); WBC 12.7 k/uL (3.8-10.6)
[2019-11-05 04:35] LABS: Calcium 7.2 mg/dL (8.4-10.2); Magnesium 1.8 mg/dL (1.6-2.3); Potassium 3.2 mmol/L (3.5-5.1)
[2019-11-05] MEDS: PIPERACILLIN-TAZOBACTAM 3.375 GM in SODIUM CHLORIDE 0.9% 100 ML IVPB SCH ×3 (04:47→21:18)
[2019-11-05] MEDS: MAGNESIUM SULFATE-D5W PMX 1 GM in DEXTROSE/WATER 1 100ML.BAG IVPB SCH ×2 (04:48→05:52)
[2019-11-05] MEDS: POTASSIUM BICARBONATE/CIT AC 20 MEQ TABLET.EFF NG-TUBE SCH ×2 (04:48→05:52)
[2019-11-05 05:00] LABS: Glucose,Whole Blood 155 mg/dL (75-99)
[2019-11-05 06:03] LABS: Glucose,Whole Blood 143 mg/dL (75-99)
[2019-11-05 06:54] LABS: Glucose,Whole Blood 180 mg/dL (75-99)
--- NOTE | 2019-11-05 06:59 | XR ---
EXAMINATION TYPE: XR chest 1V DATE OF EXAM: 11/05/2019 CLINICAL HISTORY: Difficulty breathing progress study. TECHNIQUE: Single AP portable semiupright view of the chest is obtained. COMPARISON: Chest x-ray from one day earlier and older studies. FINDINGS: Stable oral gastric tube and left subclavian central venous catheter. Persistent low lung volumes and bibasilar opacities along with central vascular congestion. Cardiac silhouette size stabl e and within normal limits with atherosclerotic thoracic aorta. Multilevel spurring in thoracic spine seen. Degenerative change right glenohumeral joint. IMPRESSION: Overall stable findings, persistent low lung volumes and central vascular congestion wi th patchy bibasilar acute infiltrate and/or atelectasis are all redemonstrated. No significant change from one day earlier.
--- NOTE | 2019-11-05 07:37 | P.PN ---
Subjective Progress Note Date: 11/05/19 Principal diagnosis: cardiomyopathy This is an 79-year-old gentleman with extensive past medical history who was admitted to the hospital initially with intra-abdominal sepsis and small bowel obstruction and developed acute hypoxic respiratory failure. The patient was seen today, 11/05/2019. He is somewhat poor historian. Hemodynamically he remains is stable. He did have an episode of atrial fibrillation but he has been in normal sinus mechanism. He is on oral amiodaron e. I'm going to start the patient on small dose of lisinopril at 2.5 mg by mouth daily for the cardiomyopathy. His echo in the hospital showed severe cardiomyopathy. He is hemodynamically stable and not on any vasopressors at this point. Objective - Vital Signs Vital signs: Vital Signs Temp 100.2 F H 11/05/19 04:00 Pulse 97 11/05/19 07:00 Resp 35 H 11/05/19 07:00 BP 121/65 10/31/19 23:00 Pulse Ox 95 11/05/19 07:00 Intake & Output 11/04/19 11/05/19 11/05/19 18:59 06:59 18:59 Intake Total 4407.799 9822.684 Output Total 4550 1775 Balance -2852.778 129.684 Weight 87.1 kg Intake: IV 143 369 .9 Sodium Chloride @ 10ml 110 130 /hr Pressure Bag 33 39 metroNIDAZOLE-NS PMX 500 200 mg In Saline 1 100ml.bag @ 100 mls/hr IVPB Q8HR INDU Rx#:[id number] Intake, IV Titration 34.222 55.684 Amount Insulin Regular 100 unit 34.222 55.684 In Sodium Chloride 0.9% 100 ml @ Per Protocol IV .Q0M INDU Rx#:[id number] Tube Feeding 770 880 Other 750 600 Output: Urine 2550 1275 Stool 2000 500 Other: Voiding Method Indwelling Catheter Indwelling Catheter ABP, PAP, CO, CI - Last Documented Arterial Blood Pressure 119/53 - Constitutional General appearance: Present: no acute distress - Respiratory Respiratory: bilateral: diminished - Cardiovascular Rhythm: regular Heart sounds: normal: S1, S2 - Labs CBC & Chem 7: 11/05/19 04:10 11/05/19 04:10 Labs: Abnormal Lab Results - Last 24 Hours (Table) 11/04/19 11/04/1920 Range/Units 09:20 10:31 11:08 WBC (3.8-10.6) k/uL RBC (4.30-5.90) m/uL Hgb (13.0-17.5) gm/dL Hct (39.0-53.0) % MCV (80.0-100.0) fL Plt Count (150-450) k/uL Potassium (3.5-5.1) mmol/L Chloride (98-107) mmol/L Carbon Dioxide (22-30) mmol/L BUN (9-20) mg/dL Glucose (74-99) mg/dL POC Glucose (mg/dL) 179 H 152 H 118 H (75-99) mg/dL Calcium (8.4-10.2) mg/dL 11/04/19 11/04/19 11/04/19 Range/Units 12:08 13:24 15:20 WBC (3.8-10.6) k/uL RBC (4.30-5.90) m/uL Hgb (13.0-17.5) gm/dL Hct (39.0-53.0) % MCV (80.0-100.0) fL Plt Count (150-450) k/uL Potassium (3.5-5.1) mmol/L Chloride (98-107) mmol/L Carbon Dioxide (22-30) mmol/L BUN (9-20) mg/dL Glucose (74-99) mg/dL POC Glucose (mg/dL) 145 H 170 H 139 H (75-99) mg/dL Calcium (8.4-10.2) mg/dL 11/04/19 11/04/19 11/04/19 Range/Units 16:43 18:54 19:56 WBC (3.8-10.6) k/uL RBC (4.30-5.90) m/uL Hgb (13.0-17.5) gm/dL Hct (39.0-53.0) % MCV (80.0-100.0) fL Plt Count (150-450) k/uL Potassium (3.5-5.1) mmol/L Chloride (98-107) mmol/L Carbon Dioxide (22-30) mmol/L BUN (9-20) mg/dL Glucose (74-99) mg/dL POC Glucose (mg/dL) 123 H 203 H 191 H (75-99) mg/dL Calcium (8.4-10.2) mg/dL 11/04/19 11/04/19 11/04/19 Range/Units 21:08 21:58 22:58 WBC (3.8-10.6) k/uL RBC (4.30-5.90) m/uL Hgb (13.0-17.5) gm/dL Hct (39.0-53.0) % MCV (80.0-100.0) fL Plt Count (150-450) k/uL Potassium (3.5-5.1) mmol/L Chloride (98-107) mmol/L Carbon Dioxide (22-30) mmol/L BUN (9-20) mg/dL Glucose (74-99) mg/dL POC Glucose (mg/dL) 224 H 201 H 144 H (75-99) mg/dL Calcium (8.4-10.2) mg/dL 11/04/19 11/05/19 11/05/19 Range/Units 23:55 00:55 01:58 WBC (3.8-10.6) k/uL RBC (4.30-5.90) m/uL Hgb (13.0-17.5) gm/dL Hct (39.0-53.0) % MCV (80.0-100.0) fL Plt Count (150-450) k/uL Potassium (3.5-5.1) mmol/L Chloride (98-107) mmol/L Carbon Dioxide (22-30) mmol/L BUN (9-20) mg/dL Glucose (74-99) mg/dL POC Glucose (mg/dL) 149 H 144 H 138 H (75-99) mg/dL Calcium (8.4-10.2) mg/dL 11/05/19 11/05/19 11/05/19 Range/Units 03:08 04:10 04:10 WBC 12.7 H (3.8-10.6) k/uL RBC 2.48 L (4.30-5.90) m/uL Hgb 7.9 L (13.0-17.5) gm/dL Hct 25.4 L (39.0-53.0) % MCV 102.4 H (80.0-100.0) fL Plt Count 932 H (150-450) k/uL Potassium 3.2 L (3.5-5.1) mmol/L Chloride 117 H (98-107) mmol/L Carbon Dioxide 20 L (22-30) mmol/L BUN 24 H (9-20) mg/dL Glucose 133 H (74-99) mg/dL POC Glucose (mg/dL) 156 H (75-99) mg/dL Calcium 7.2 L (8.4-10.2) mg/dL 11/05/19 11/05/19 11/05/19 Range/Units 04:11 04:58 06:01 WBC (3.8-10.6) k/uL RBC (4.30-5.90) m/uL Hgb (13.0-17.5) gm/dL Hct (39.0-53.0) % MCV (80.0-100.0) fL Plt Count (150-450) k/uL Potassium (3.5-5.1) mmol/L Chloride (98-107) mmol/L Carbon Dioxide (22-30) mmol/L BUN (9-20) mg/dL Glucose (74-99) mg/dL POC Glucose (mg/dL) 143 H 155 H 143 H (75-99) mg/dL Calcium (8.4-10.2) mg/dL 11/05/19 Range/Units 06:52 WBC (3.8-10.6) k/uL RBC (4.30-5.90) m/uL Hgb (13.0-17.5) gm/dL Hct (39.0-53.0) % MCV (80.0-100.0) fL Plt Count (150-450) k/uL Potassium (3.5-5.1) mmol/L Chloride (98-107) mmol/L Carbon Dioxide (22-30) mmol/L BUN (9-20) mg/dL Glucose (74-99) mg/dL POC Glucose (mg/dL) 180 H (75-99) mg/dL Calcium (8.4-10.2) mg/dL Microbiology - Last 24 Hours (Table) 11/04/19 15:56 Urine Culture - Preliminary Urine,Catheterized 10/25/19 11:35 Blood Fungal Culture - Preliminary Blood Assessment and Plan Assessment: assessment #1 acute hypoxic respiratory failure which has improved #2 paroxysmal atrial fibrillation #3 severe cardiomyopathy #4 peripheral arterial disease #5 multiple comorbid conditions Plan #1 continue the current medical regimen including the current dose of amiodarone #2 possible start the patient on small dose of metoprolol in the next 24 hours #3 follow-up with the patient
[2019-11-05 08:03] LABS: Glucose,Whole Blood 184 mg/dL (75-99)
[2019-11-05] MEDS: metroNIDAZOLE-NS PMX 500 MG in SALINE 1 100ML.BAG IVPB SCH (08:28)
[2019-11-05] MEDS: HEPARIN SODIUM,PORCINE 5,000 UNIT/ML 1 ML VIAL SQ SCH ×3 (08:28→23:36)
[2019-11-05 10:05] LABS: Glucose,Whole Blood 154 mg/dL (75-99)
[2019-11-05] MEDS: HYDROmorphone 0.5 MG/0.5 ML SYRINGE IVP PRN (10:15)
[2019-11-05] MEDS: ASPIRIN 81 MG PO SCH (10:17)
[2019-11-05] MEDS: PANTOPRAZOLE 40 MG/10 ML VIAL IV SCH (10:17)
[2019-11-05] MEDS: AMIODARONE 200 MG TAB PO SCH ×2 (10:18→21:19)
[2019-11-05] MEDS: LISINOPRIL 2.5 MG TAB PO SCH (10:18)
[2019-11-05] MEDS: FLUCONAZOLE IN NACL,ISO-OSM 200 MG in SALINE 1 100ML.BAG IVPB SCH (10:18)
--- NOTE | 2019-11-05 10:35 | P.PN ---
Subjective Progress Note Date: 11/05/19 Principal diagnosis: hypovolemic shock, small bowel ileus/obstruction, right lower lobe pneumonia on 11/04/2019 patient is seen in follow-up in the intensive care unit. Patient was successfully weaned and extubated from the mechanical ventilator yesterday on 11/03/2019, this morning patient is on 5 L per nasal cannula his pulse ox is 92-95%. he is awake, his speech is difficult to understand, as he is following basic commands, he is able to squeeze hands on command and wiggle his toes. his been having low-grade fevers, his T-max in the last 24 hours was 100.2F. remains on a combination of Diflucan, Flagyl and Zosyn. microbiology data reviewed, and all his cultures are negative except for Layne albicans in the sputum. Abdomen is nontender, patient has NG tube in place with tube feeds infusing with the formula vital a half at a rate of 70 with a goal of 70. IV fl uids include 0.9 normal saline at a rate of 10, insulin drip at 5.5 units per hour. No other drips. Lung sounds are positive for diffuse rhonchi bilaterally. Patient is also audibly congested, and his mucous membranes are extremely dry with bleeding from his mouth. family symptoms or has been reviewed showing increased bibasilar densities. patient remains in atrial fibrillation with a controlled rate at 95 BPM. Hemodynamically patient is stable. today's labs have been reviewed showing white blood cell count of 11.2, hemoglobin of 7.8, sodium is 141, potassium is 3.4, chloride is 117, CO2 is 19, B1 is 22, creatinine 0.99. generally patient is extremely weak, consult physical therapy. On 11/05/2019 patient seen in follow-up in the intensive care unit. He is awake, following commands, however his orientation is difficult to assess related to his extremely garbled speech. appears to be in no acute distress, he was successfully weaned and extubated on 11/03/2019. Currently oon 4 L of oxygen his pulse ox is 96-99%, still running a low-grade fevers, T-max in the last 24 hours is 100.6F, culture data has been reviewed, blood, sputum, and urine cultures are negative. Remains on fluconazole and Zosyn for antibiotic coverage. He is receiving tube feedings, with the formula of vital AF at a rate of 70, with a goal of 70. Receiving free water flushes 200 ML every 4 hours. IV fluids infusing at a rate of 20 ml/hr, insulin infusion is at 5.5 units per hour. Yesterday we administered 1 dose of IV Lasix, patient produced 3.8 liters in urine output in addition to 2.5 L in liquid diarrhea. Stool for C. diff was negative. today's chest x-ray has been reviewed with Dr. Garcia, showing stable findings, persistent low lung volumes and central vascular congestion with patchy bibasilar Infiltrates and/or atelectasis. today's labs have been reviewed showing white blood cell count of 12.7, hemoglobin of 7.9, sodium is 141, potassium is 3.2, chloride is 117, CO2 is 20, B1 is 24 creatinine is 1.01. Patient abdomen is slightly more distended but soft, and nontender. Lung sounds reveal diffuse rhonchi Objective - Vital Signs Vital signs: Vital Signs Temp 100.6 F H 11/05/19 08:00 Pulse 95 11/05/19 10:00 Resp 40 H 11/05/19 10:00 BP 121/65 10/31/19 23:00 Pulse Ox 99 11/05/19 10:00 Intake & Output 11/04/19 11/05/19 11/05/19 18:59 06:59 18:59 Intake Total 3596.805 8601.684 313.683 Output Total 4550 1775 115 Balance -2852.778 129.684 198.683 Weight 87.1 kg Intake: IV 143 369 26 .9 Sodium Chloride @ 10ml 110 130 20 /hr Pressure Bag 33 39 6 metroNIDAZOLE-NS PMX 500 200 mg In Saline 1 100ml.bag @ 100 mls/hr IVPB Q8HR INDU Rx#:[id number] Intake, IV Titration 34.222 55.684 17.683 Amount Insulin Regular 100 unit 34.222 55.684 17.683 In Sodium Chloride 0.9% 100 ml @ Per Protocol IV .Q0M INDU Rx#:[id number] Tube Feeding 770 880 70 Other 750 600 200 Output: Urine 2550 1275 115 Stool 2000 500 Other: Voiding Method Indwelling Catheter Indwelling Catheter ABP, PAP, CO, CI - Last Documented Arterial Blood Pressure 148/54 - Exam GENERAL EXAM: Alert, 79-year-old white male, on 4 L of oxygen with a pulse ox of 99%, with NG tube in place and tube feedings infusing, patient mumbles his speech is difficult to understand, but follows basic commands HEAD: Normocephalic/atraumatic. EYES: Normal reaction of pupils, equal size. Conjunctiva pink, sclera white. NOSE: Clear with pink turbinates. THROAT: No erythema or exudates. NECK: No masses, no JVD, no thyroid enlargement, no adenopathy. CHEST: No chest wall deformity. Symmetrical expansion. LUNGS: Equal air entry with no crackles, wheeze, rhonchi or dullness. CVS: Irregular rate and rhythm, normal S1 and S2, no gallops, no murmurs, no rubs ABDOMEN: Soft, nontender, slightly more distended on today's exam, but nontender No hepatosplenomegaly, normal bowel sounds, no guarding or rigidity. EXTREMITIES: No clubbing, 1+ edema in upper extremities, mild pretibial edema, no cyanosis, 2+ pulses and upper and lower extremities. MUSCULOSKELETAL: Muscle strength and tone normal. SPINE: No scoliosis or deformity SKIN: No rashes CENTRAL NERVOUS SYSTEM: patient is alert, but unable to assess orientation as the patient is difficult to understand. No focal deficits, tone is normal in all 4 extremities. - Labs CBC & Chem 7: 11/05/19 04:10 11/05/19 04:10 Labs: Abnormal Lab Results - Last 24 Hours (Table) 11/04/19 11/04/19 11/04/19 Range/Units 10:31 11:08 12:08 WBC (3.8-10.6) k/uL RBC (4.30-5.90) m/uL Hgb (13.0-17.5) gm/dL Hct (39.0-53.0) % MCV (80.0-100.0) fL Plt Count (150-450) k/uL Potassium (3.5-5.1) mmol/L Chloride (98-107) mmol/L Carbon Dioxide (22-30) mmol/L BUN (9-20) mg/dL Glucose (74-99) mg/dL POC Glucose (mg/dL) 152 H 118 H 145 H (75-99) mg/dL Calcium (8.4-10.2) mg/dL 11/04/19 11/04/19 11/04/19 Range/Units 13:24 15:20 16:43 WBC (3.8-10.6) k/uL RBC (4.30-5.90) m/uL Hgb (13.0-17.5) gm/dL Hct (39.0-53.0) % MCV (80.0-100.0) fL Plt Count (150-450) k/uL Potassium (3.5-5.1) mmol/L Chloride (98-107) mmol/L Carbon Dioxide (22-30) mmol/L BUN (9-20) mg/dL Glucose (74-99) mg/dL POC Glucose (mg/dL) 170 H 139 H 123 H (75-99) mg/dL Calcium (8.4-10.2) mg/dL 11/04/19 11/04/19 11/04/19 Range/Units 18:54 19:56 21:08 WBC (3.8-10.6) k/uL RBC (4.30-5.90) m/uL Hgb (13.0-17.5) gm/dL Hct (39.0-53.0) % MCV (80.0-100.0) fL Plt Count (150-450) k/uL Potassium (3.5-5.1) mmol/L Chloride (98-107) mmol/L Carbon Dioxide (22-30) mmol/L BUN (9-20) mg/dL Glucose (74-99) mg/dL POC Glucose (mg/dL) 203 H 191 H 224 H (75-99) mg/dL Calcium (8.4-10.2) mg/dL 11/04/19 11/04/19 11/04/19 Range/Units 21:58 22:58 23:55 WBC (3.8-10.6) k/uL RBC (4.30-5.90) m/uL Hgb (13.0-17.5) gm/dL Hct (39.0-53.0) % MCV (80.0-100.0) fL Plt Count (150-450) k/uL Potassium (3.5-5.1) mmol/L Chloride (98-107) mmol/L Carbon Dioxide (22-30) mmol/L BUN (9-20) mg/dL Glucose (74-99) mg/dL POC Glucose (mg/dL) 201 H 144 H 149 H (75-99) mg/dL Calcium (8.4-10.2) mg/dL 11/05/19 11/05/19 11/05/19 Range/Units 00:55 01:58 03:08 WBC (3.8-10.6) k/uL RBC (4.30-5.90) m/uL Hgb (13.0-17.5) gm/dL Hct (39.0-53.0) % MCV (80.0-100.0) fL Plt Count (150-450) k/uL Potassium (3.5-5.1) mmol/L Chloride (98-107) mmol/L Carbon Dioxide (22-30) mmol/L BUN (9-20) mg/dL Glucose (74-99) mg/dL POC Glucose (mg/dL) 144 H 138 H 156 H (75-99) mg/dL Calcium (8.4-10.2) mg/dL 11/05/19 11/05/19 11/05/19 Range/Units 04:10 04:10 04:11 WBC 12.7 H (3.8-10.6) k/uL RBC 2.48 L (4.30-5.90) m/uL Hgb 7.9 L (13.0-17.5) gm/dL Hct 25.4 L (39.0-53.0) % MCV 102.4 H (80.0-100.0) fL Plt Count 932 H (150-450) k/uL Potassium 3.2 L (3.5-5.1) mmol/L Chloride 117 H (98-107) mmol/L Carbon Dioxide 20 L (22-30) mmol/L BUN 24 H (9-20) mg/dL Glucose 133 H (74-99) mg/dL POC Glucose (mg/dL) 143 H (75-99) mg/dL Calcium 7.2 L (8.4-10.2) mg/dL 11/05/19 11/05/19 11/05/19 Range/Units 04:58 06:01 06:52 WBC (3.8-10.6) k/uL RBC (4.30-5.90) m/uL Hgb (13.0-17.5) gm/dL Hct (39.0-53.0) % MCV (80.0-100.0) fL Plt Count (150-450) k/uL Potassium (3.5-5.1) mmol/L Chloride (98-107) mmol/L Carbon Dioxide (22-30) mmol/L BUN (9-20) mg/dL Glucose (74-99) mg/dL POC Glucose (mg/dL) 155 H 143 H 180 H (75-99) mg/dL Calcium (8.4-10.2) mg/dL 11/05/19 11/05/19 Range/Units 08:01 10:03 WBC (3.8-10.6) k/uL RBC (4.30-5.90) m/uL Hgb (13.0-17.5) gm/dL Hct (39.0-53.0) % MCV (80.0-100.0) fL Plt Count (150-450) k/uL Potassium (3.5-5.1) mmol/L Chloride (98-107) mmol/L Carbon Dioxide (22-30) mmol/L BUN (9-20) mg/dL Glucose (74-99) mg/dL POC Glucose (mg/dL) 184 H 154 H (75-99) mg/dL Calcium (8.4-10.2) mg/dL Microbiology - Last 24 Hours (Table) 11/04/19 15:56 Urine Culture - Preliminary Urine,Catheterized 10/25/19 11:35 Blood Fungal Culture - Preliminary Blood Assessment and Plan Plan: #1. Acute hypoxic respiratory failure secondary to hypovolemic and septic shock, patient was intubated on 10/22/2019, and weaned and extubated on 11/04/2019 #2. Acute abdominal sepsis, small bowel ileus/obstruction, remains on Zosyn and Flagyl. Resolved. #3. Possible right lower lobe pneumonia, hospital-acquired or could be aspiration related. #4. Acute hyperosmolar nonketotic diabetic syndrome with profound hypovolemia and volume depletion/dehydration, improved #5. Acute kidney injury secondary to hypovolemia and possible septic shock with acute tubular necrosis. Resolved #6. Altered mental status on presentation secondary to hyperosmolar nonketotic state. Mental status is not showing any improvement. #7. History of Alzheimer's dementia #8. Type 2 diabetes #9. Pseudohyponatremia on presentation secondary to severe hyperglycemia. Resolved #10. Benign essential hypertension #11. Peripheral vessel occlusive disease mostly involving lower extremities. #12. History of 4.6 cm distal abdominal aortic aneurysm and previous iliac stent the graft placement. #13. Acute shock liver secondary to hypotension on presentation. Improving. #14. History of ischemic cardiomyopathy and LV dysfunction, ejection fraction of 30%. #15. Severe lactic acidosis on presentation most likely secondary to abdominal sepsis and ischemic bowel, significantly improved #16. Coma, resolved #17. Large volume liquid diarrhea, C. diff negative Plan: Maintain aspiration precautions, continue with current antibiotics, patient continues to have low-grade fevers, we will remove his heart fluttering and central line, we'll send the tips for culture. Obtain peripheral IV access, midline catheter. Patient continues to have large volume liquid diarrhea, C. diff was negative, send a stool for culture. Abdomen is slightly more distended but non-tender, will obtain KUB of the abdomen today. No Lasix today, pulmonary toileting, sit patient up in the chair position, increase activity, consult physical therapy. Encourage deep breathing and coughing. Tolerating tube feedings. Continue GI and DVT prophylaxis, today's labs have been reviewed,chest x-ray has been reviewed. Patient will continue to monitor the intensive care unit. I performed a history & physical examination of the patient and discussed their management with my nurse practitioner, Roshni Francis. I reviewed the nurse practitioner's note and agree with the documented findings and plan of care. Lung sounds are positive for diffuse rhonchi throughout the lung flores. The findings and the impression was discussed with the patient. I attest to the documentation by the nurse practitioner. Time with Patient: Less than 30
--- NOTE | 2019-11-05 10:39 | P.PN ---
Subjective Patient is seen in follow-up for acute kidney injury. Patient extubated on November 02. Receiving tube feedings. Renal function is fairly stable. Sodium level 141. Having quite a bit of diarrhea. Vital signs are stable. General: The patient appeared well nourished and normally developed. HEENT: Head exam is unremarkable. Neck is without jugular venous distension. LUNGS: Breath sounds decreased. HEART: Rate and Rhythm are regular. ABDOMEN: Soft, moderate distention noted. EXTREMITITES: 1+ edema. Objective - Vital Signs Vital signs: Vital Signs Temp 100.6 F H 11/05/19 08:00 Pulse 95 11/05/19 10:00 Resp 40 H 11/05/19 10:00 BP 121/65 10/31/19 23:00 Pulse Ox 99 11/05/19 10:00 Intake & Output 11/04/19 11/05/19 11/05/19 18:59 06:59 18:59 Intake Total 2780.092 9879.684 313.683 Output Total 4550 1775 115 Balance -2852.778 129.684 198.683 Weight 87.1 kg Intake: IV 143 369 26 .9 Sodium Chloride @ 10ml 110 130 20 /hr Pressure Bag 33 39 6 metroNIDAZOLE-NS PMX 500 200 mg In Saline 1 100ml.bag @ 100 mls/hr IVPB Q8HR INDU Rx#:[id number] Intake, IV Titration 34.222 55.684 17.683 Amount Insulin Regular 100 unit 34.222 55.684 17.683 In Sodium Chloride 0.9% 100 ml @ Per Protocol IV .Q0M INDU Rx#:[id number] Tube Feeding 770 880 70 Other 750 600 200 Output: Urine 2550 1275 115 Stool 2000 500 Other: Voiding Method Indwelling Catheter Indwelling Catheter ABP, PAP, CO, CI - Last Documented Arterial Blood Pressure 148/54 - Labs CBC & Chem 7: 11/05/19 04:10 11/05/19 04:10 Labs: Abnormal Lab Results - Last 24 Hours (Table) 11/04/19 11/04/19 11/04/19 Range/Units 11:08 12:08 13:24 WBC (3.8-10.6) k/uL RBC (4.30-5.90) m/uL Hgb (13.0-17.5) gm/dL Hct (39.0-53.0) % MCV (80.0-100.0) fL Plt Count (150-450) k/uL Potassium (3.5-5.1) mmol/L Chloride (98-107) mmol/L Carbon Dioxide (22-30) mmol/L BUN (9-20) mg/dL Glucose (74-99) mg/dL POC Glucose (mg/dL) 118 H 145 H 170 H (75-99) mg/dL Calcium (8.4-10.2) mg/dL 11/04/19 11/04/19 11/04/19 Range/Units 15:20 16:43 18:54 WBC (3.8-10.6) k/uL RBC (4.30-5.90) m/uL Hgb (13.0-17.5) gm/dL Hct (39.0-53.0) % MCV (80.0-100.0) fL Plt Count (150-450) k/uL Potassium (3.5-5.1) mmol/L Chloride (98-107) mmol/L Carbon Dioxide (22-30) mmol/L BUN (9-20) mg/dL Glucose (74-99) mg/dL POC Glucose (mg/dL) 139 H 123 H 203 H (75-99) mg/dL Calcium (8.4-10.2) mg/dL 11/04/19 11/04/19 11/04/19 Range/Units 19:56 21:08 21:58 WBC (3.8-10.6) k/uL RBC (4.30-5.90) m/uL Hgb (13.0-17.5) gm/dL Hct (39.0-53.0) % MCV (80.0-100.0) fL Plt Count (150-450) k/uL Potassium (3.5-5.1) mmol/L Chloride (98-107) mmol/L Carbon Dioxide (22-30) mmol/L BUN (9-20) mg/dL Glucose (74-99) mg/dL POC Glucose (mg/dL) 191 H 224 H 201 H (75-99) mg/dL Calcium (8.4-10.2) mg/dL 11/04/19 11/04/19 11/05/19 Range/Units 22:58 23:55 00:55 WBC (3.8-10.6) k/uL RBC (4.30-5.90) m/uL Hgb (13.0-17.5) gm/dL Hct (39.0-53.0) % MCV (80.0-100.0) fL Plt Count (150-450) k/uL Potassium (3.5-5.1) mmol/L Chloride (98-107) mmol/L Carbon Dioxide (22-30) mmol/L BUN (9-20) mg/dL Glucose (74-99) mg/dL POC Glucose (mg/dL) 144 H 149 H 144 H (75-99) mg/dL Calcium (8.4-10.2) mg/dL 11/05/19 11/05/19 11/05/19 Range/Units 01:58 03:08 04:10 WBC 12.7 H (3.8-10.6) k/uL RBC 2.48 L (4.30-5.90) m/uL Hgb 7.9 L (13.0-17.5) gm/dL Hct 25.4 L (39.0-53.0) % MCV 102.4 H (80.0-100.0) fL Plt Count 932 H (150-450) k/uL Potassium (3.5-5.1) mmol/L Chloride (98-107) mmol/L Carbon Dioxide (22-30) mmol/L BUN (9-20) mg/dL Glucose (74-99) mg/dL POC Glucose (mg/dL) 138 H 156 H (75-99) mg/dL Calcium (8.4-10.2) mg/dL 11/05/19 11/05/19 11/05/19 Range/Units 04:10 04:11 04:58 WBC (3.8-10.6) k/uL RBC (4.30-5.90) m/uL Hgb (13.0-17.5) gm/dL Hct (39.0-53.0) % MCV (80.0-100.0) fL Plt Count (150-450) k/uL Potassium 3.2 L (3.5-5.1) mmol/L Chloride 117 H (98-107) mmol/L Carbon Dioxide 20 L (22-30) mmol/L BUN 24 H (9-20) mg/dL Glucose 133 H (74-99) mg/dL POC Glucose (mg/dL) 143 H 155 H (75-99) mg/dL Calcium 7.2 L (8.4-10.2) mg/dL 11/05/19 11/05/19 11/05/19 Range/Units 06:01 06:52 08:01 WBC (3.8-10.6) k/uL RBC (4.30-5.90) m/uL Hgb (13.0-17.5) gm/dL Hct (39.0-53.0) % MCV (80.0-100.0) fL Plt Count (150-450) k/uL Potassium (3.5-5.1) mmol/L Chloride (98-107) mmol/L Carbon Dioxide (22-30) mmol/L BUN (9-20) mg/dL Glucose (74-99) mg/dL POC Glucose (mg/dL) 143 H 180 H 184 H (75-99) mg/dL Calcium (8.4-10.2) mg/dL 11/05/19 Range/Units 10:03 WBC (3.8-10.6) k/uL RBC (4.30-5.90) m/uL Hgb (13.0-17.5) gm/dL Hct (39.0-53.0) % MCV (80.0-100.0) fL Plt Count (150-450) k/uL Potassium (3.5-5.1) mmol/L Chloride (98-107) mmol/L Carbon Dioxide (22-30) mmol/L BUN (9-20) mg/dL Glucose (74-99) mg/dL POC Glucose (mg/dL) 154 H (75-99) mg/dL Calcium (8.4-10.2) mg/dL Microbiology - Last 24 Hours (Table) 11/04/19 15:56 Urine Culture - Preliminary Urine,Catheterized 10/25/19 11:35 Blood Fungal Culture - Preliminary Blood Assessment and Plan Plan: Assessment: 1. Acute kidney injury secondary to ATN secondary to severe intravascular volume depletion due to hyperglycemia and further worsened with hypotension. Creatinine peaked at 2.7 this admission and is stable near 1 today. 2. Rule out chronic kidney disease. Creatinine was in the range of 1.2-1.5 in July 2018. No proteinuria on UA. 3. Severe metabolic acidosis secondary to DKA. Improved. 4. DKA s/p insulin drip. 5. Hypernatremia secondary to lack of oral water intake. Better. 6. Possible pneumonia maintained on antibiotics. 7. Anoxic brain injury. 8. Hypokalemia secondary to diuresis. Being replaced. Magnesium normal. 9. Volume overload. 10. Abdominal distention. Likely due to ileus versus small bowel obstruction. Surgery following. Plan: Maintain tube feeding. Continue free water flushes at a rate of 200 mL every 4 hours. Potassium being replaced. Lasix 40 mg IV once today.
[2019-11-05] MEDS ORDERED: FUROSEMIDE 10 MG/ML 4 ML VIAL IV STA (11:17)
--- NOTE | 2019-11-05 11:40 | XR ---
EXAMINATION TYPE: XR abdomen 2V DATE OF EXAM: 11/05/2019 CLINICAL HISTORY: Abdominal distention. TECHNIQUE: Supine and upright views of the abdomen are obtained. COMPARISON: CT abdomen and pelvis 12 days ago. Abdominal x-ray 10 days ago. FINDINGS: New nasogastric tube extends into the duodenal sweep with decompression of stomach. Gas pro minent and distended small bowel loops in the mid to lower abdomen somewhat stepladder fashion remain present. Gas seen in nondistended colon along the periphery. Fairly moderate subcutaneous edema over lies the left abdomen and pelvis. Aortobiiliac stent graft noted. Lung bases are clear. No pneumoperi toneum. IMPRESSION: Findings consistent with persistent mid to distal small bowel obstruction are felt presen t without interval resolution.
[2019-11-05 12:00] LABS: Glucose,Whole Blood 229 mg/dL (75-99)
--- NOTE | 2019-11-05 13:14 | P.PN ---
<Jodie Garcia Melvin - Last Filed: 11/05/19 13:11> Subjective Progress Note Date: 11/05/19 CHIEF COMPLAINT: Sepsis HISTORY OF PRESENT ILLNESS: Patient examined in the intensive care. He has been extubated. NG tube remains intact and tube feedings are infusing. He is tolerating well. Patient has a FMS which brown liquid stool. PHYSICAL EXAM: VITAL SIGNS: Reviewed GENERAL: Well-developed in no acute distress. HEENT: No sclera icterus. Extraocular movements grossly intact. Moist buccal mucosa. Head is atraumatic, normocephalic. No nasal drainage. NECK: Supple without lymphadenopathy. CHEST: Non-labored respirations and equal bilateral excursions. CARDIOVASCULAR: Regular rate with regular rhythm. Palpable 2+ radial pulses. ABDOMEN: Soft. Mildly distended. Nontender. NG tube noted with tube feeding infusing. MUSCULOSKELETAL: No clubbing or cyanosis. NEUROLOGIC: Awake and alert. SKIN: Well perfused. Good skin turgor. ASSESSMENT: 1. Abnormal computed tomography scan with small bowel distention, resolving PLAN: Continue tube feedings as tolerated Consult speech for bedside swallow evaluation. If patient passes, may begin diet from a surgical standpoint Nurse practitioner note has been reviewed by physician. Signing provider agrees with the documented findings, assessment, and plan of care. Objective - Vital Signs Vital signs: Vital Signs Temp 100.3 F H 11/05/19 12:00 Pulse 92 11/05/19 13:00 Resp 28 H 11/05/19 13:00 BP 105/64 11/05/19 13:00 Pulse Ox 100 11/05/19 13:00 Intake & Output 11/04/19 11/05/19 11/05/19 18:59 06:59 18:59 Intake Total 2696.864 2432.684 772.244 Output Total 4550 1775 850 Balance -2852.778 129.684 -77.756 Weight 87.1 kg Intake: IV 143 369 65 .9 Sodium Chloride @ 10ml 110 130 50 /hr Pressure Bag 33 39 15 metroNIDAZOLE-NS PMX 500 200 mg In Saline 1 100ml.bag @ 100 mls/hr IVPB Q8HR [facility] Rx#:[id number] Intake, IV Titration 34.222 55.684 27.244 Amount Insulin Regular 100 unit 34.222 55.684 27.244 In Sodium Chloride 0.9% 100 ml @ Per Protocol IV .Q0M [facility] Rx#:[id number] Tube Feeding 770 880 280 Other 750 600 400 Output: Urine 2550 1275 450 Stool 2000 500 400 Other: Voiding Method Indwelling Catheter Indwelling Catheter Indwelling Catheter ABP, PAP, CO, CI - Last Documented Arterial Blood Pressure 145/58 - Labs CBC & Chem 7: 11/05/19 04:10 11/05/19 04:10 Labs: Abnormal Lab Results - Last 24 Hours (Table) 11/04/19 11/04/19 11/04/19 Range/Units 13:24 15:20 16:43 WBC (3.8-10.6) k/uL RBC (4.30-5.90) m/uL Hgb (13.0-17.5) gm/dL Hct (39.0-53.0) % MCV (80.0-100.0) fL Plt Count (150-450) k/uL Potassium (3.5-5.1) mmol/L Chloride (98-107) mmol/L Carbon Dioxide (22-30) mmol/L BUN (9-20) mg/dL Glucose (74-99) mg/dL POC Glucose (mg/dL) 170 H 139 H 123 H (75-99) mg/dL Calcium (8.4-10.2) mg/dL 11/04/19 11/04/19 11/04/19 Range/Units 18:54 19:56 21:08 WBC (3.8-10.6) k/uL RBC (4.30-5.90) m/uL Hgb (13.0-17.5) gm/dL Hct (39.0-53.0) % MCV (80.0-100.0) fL Plt Count (150-450) k/uL Potassium (3.5-5.1) mmol/L Chloride (98-107) mmol/L Carbon Dioxide (22-30) mmol/L BUN (9-20) mg/dL Glucose (74-99) mg/dL POC Glucose (mg/dL) 203 H 191 H 224 H (75-99) mg/dL Calcium (8.4-10.2) mg/dL 11/04/19 11/04/19 11/04/19 Range/Units 21:58 22:58 23:55 WBC (3.8-10.6) k/uL RBC (4.30-5.90) m/uL Hgb (13.0-17.5) gm/dL Hct (39.0-53.0) % MCV (80.0-100.0) fL Plt Count (150-450) k/uL Potassium (3.5-5.1) mmol/L Chloride (98-107) mmol/L Carbon Dioxide (22-30) mmol/L BUN (9-20) mg/dL Glucose (74-99) mg/dL POC Glucose (mg/dL) 201 H 144 H 149 H (75-99) mg/dL Calcium (8.4-10.2) mg/dL 11/05/19 11/05/19 11/05/19 Range/Units 00:55 01:58 03:08 WBC (3.8-10.6) k/uL RBC (4.30-5.90) m/uL Hgb (13.0-17.5) gm/dL Hct (39.0-53.0) % MCV (80.0-100.0) fL Plt Count (150-450) k/uL Potassium (3.5-5.1) mmol/L Chloride (98-107) mmol/L Carbon Dioxide (22-30) mmol/L BUN (9-20) mg/dL Glucose (74-99) mg/dL POC Glucose (mg/dL) 144 H 138 H 156 H (75-99) mg/dL Calcium (8.4-10.2) mg/dL 11/05/19 11/05/19 11/05/19 Range/Units 04:10 04:10 04:11 WBC 12.7 H (3.8-10.6) k/uL RBC 2.48 L (4.30-5.90) m/uL Hgb 7.9 L (13.0-17.5) gm/dL Hct 25.4 L (39.0-53.0) % MCV 102.4 H (80.0-100.0) fL Plt Count 932 H (150-450) k/uL Potassium 3.2 L (3.5-5.1) mmol/L Chloride 117 H (98-107) mmol/L Carbon Dioxide 20 L (22-30) mmol/L BUN 24 H (9-20) mg/dL Glucose 133 H (74-99) mg/dL POC Glucose (mg/dL) 143 H (75-99) mg/dL Calcium 7.2 L (8.4-10.2) mg/dL 11/05/19 11/05/19 11/05/19 Range/Units 04:58 06:01 06:52 WBC (3.8-10.6) k/uL RBC (4.30-5.90) m/uL Hgb (13.0-17.5) gm/dL Hct (39.0-53.0) % MCV (80.0-100.0) fL Plt Count (150-450) k/uL Potassium (3.5-5.1) mmol/L Chloride (98-107) mmol/L Carbon Dioxide (22-30) mmol/L BUN (9-20) mg/dL Glucose (74-99) mg/dL POC Glucose (mg/dL) 155 H 143 H 180 H (75-99) mg/dL Calcium (8.4-10.2) mg/dL 11/05/19 11/05/19 11/05/19 Range/Units 08:01 10:03 11:58 WBC (3.8-10.6) k/uL RBC (4.30-5.90) m/uL Hgb (13.0-17.5) gm/dL Hct (39.0-53.0) % MCV (80.0-100.0) fL Plt Count (150-450) k/uL Potassium (3.5-5.1) mmol/L Chloride (98-107) mmol/L Carbon Dioxide (22-30) mmol/L BUN (9-20) mg/dL Glucose (74-99) mg/dL POC Glucose (mg/dL) 184 H 154 H 229 H (75-99) mg/dL Calcium (8.4-10.2) mg/dL Microbiology - Last 24 Hours (Table) 11/04/19 15:56 Urine Culture - Preliminary Urine,Catheterized 10/25/19 11:35 Blood Fungal Culture - Preliminary Blood <Bess Quintero N - Last Filed: 11/05/19 18:10> Subjective Patient seen and evaluated with nurse practitioner and agree with above. HISTORY OF PRESENT ILLNESS: The patient is a 79 year old male with baseline dementia including uncontrolled diabetes, liver shock now resolved, small bowel obstruction resolved, sepsis on presentation who recently was extubated in the last 2-3 days. He is awake and more alert. He is having moderate stools. He has intermittent fevers. He still has a nasogastric tube. REVIEW OF ORGAN SYSTEMS: No chest pain. No productive sputum. T-max 100.6 PHYSICAL EXAM: VITALS: Reviewed CONSTITUTIONAL: Well developed and in no acute distress. EYES: Conjuctivae without sclera icterus. Extraocular movements grossly intact. HEAD, EARS, NOSE, THROAT: Moist buccal mucosa. Head is atraumatic, normoc ephalic. No nasal drainage. NECK: Supple. No thyroidomegaly. RESPIRATORY: Nonlabored respirations. No gross wheezes. CARDIOVASCULAR: Palpable 2+ radial pulses. ABDOMEN: Soft. Nontender. Nondistended. MUSCULOSKELETAL: No clubbing, cyanosis. SKIN: Warm and well perfused with good skin turgor. NEUROLOGIC: No focal or lateralizing signs. PSYCH: Alert to self. CLINCAL LABS: Reviewed. WBC down from 15.4-11.2, now 12.7 ASSESSMENT: 1. Small bowel obstruction resolved 2. Abdominal aortic aneurysm 3. Uncontrolled diabetes type 2 with hyperglycemia 4. Lactic acidosis 5. Acute respiratory failure 6. Dementia 7. Acute kidney injury PLAN: 1. He had prolonged intubation which puts him at risk for aspiration as well as dysphagia. Recommend swallow study evaluation. 2. He has ongoing fevers. May also benefit from CT of the sinuses as this may also be a cause for chronic fevers from sinusitis secondary to prolonged NG tube status. Objective - Vital Signs Vital signs: Vital Signs Temp 100.5 F H 11/05/19 16:00 Pulse 98 11/05/19 17:00 Resp 29 H 11/05/19 17:00 BP 93/41 11/05/19 17:00 Pulse Ox 85 L 11/05/19 17:00 Intake & Output 11/04/19 11/05/19 11/05/19 18:59 06:59 18:59 Intake Total 7645.634 5058.684 1349.446 Output Total 8710 1585 2315 Balance -2852.778 129.684 -965.554 Weight 87.1 kg 87.1 kg Intake: IV 143 369 205 .9 Sodium Chloride @ 10ml 110 130 90 /hr Piperacillin-Tazobactam 3 100 .375 gm In Sodium Chloride 0.9% 100 ml @ 25 mls/hr IVPB Q8H [facility] Rx#: [id number] Pressure Bag 33 39 15 metroNIDAZOLE-NS PMX 500 200 mg In Saline 1 100ml.bag @ 100 mls/hr IVPB Q8HR [facility] Rx#:[id number] Intake, IV Titration 34.222 55.684 54.446 Amount Insulin Regular 100 unit 34.222 55.684 54.446 In Sodium Chloride 0.9% 100 ml @ Per Protocol IV .Q0M [facility] Rx#:[id number] Tube Feeding 770 880 490 Other 750 600 600 Output: Urine 2550 1275 1665 Stool 2000 500 650 Other: Voiding Method Indwelling Catheter Indwelling Catheter Indwelling Catheter ABP, PAP, CO, CI - Last Documented Arterial Blood Pressure 145/58 - Labs CBC & Chem 7: 11/05/19 04:10 11/05/19 16:51 Labs: Abnormal Lab Results - Last 24 Hours (Table) 11/04/19 11/04/19 11/04/19 Range/Units 18:54 19:56 21:08 WBC (3.8-10.6) k/uL RBC (4.30-5.90) m/uL Hgb (13.0-17.5) gm/dL Hct (39.0-53.0) % MCV (80.0-100.0) fL Plt Count (150-450) k/uL Potassium (3.5-5.1) mmol/L Chloride (98-107) mmol/L Carbon Dioxide (22-30) mmol/L BUN (9-20) mg/dL Glucose (74-99) mg/dL POC Glucose (mg/dL) 203 H 191 H 224 H (75-99) mg/dL Calcium (8.4-10.2) mg/dL 11/04/19 11/04/19 11/04/19 Range/Units 21:58 22:58 23:55 WBC (3.8-10.6) k/uL RBC (4.30-5.90) m/uL Hgb (13.0-17.5) gm/dL Hct (39.0-53.0) % MCV (80.0-100.0) fL Plt Count (150-450) k/uL Potassium (3.5-5.1) mmol/L Chloride (98-107) mmol/L Carbon Dioxide (22-30) mmol/L BUN (9-20) mg/dL Glucose (74-99) mg/dL POC Glucose (mg/dL) 201 H 144 H 149 H (75-99) mg/dL Calcium (8.4-10.2) mg/dL 11/05/19 11/05/19 11/05/19 Range/Units 00:55 01:58 03:08 WBC (3.8-10.6) k/uL RBC (4.30-5.90) m/uL Hgb (13.0-17.5) gm/dL Hct (39.0-53.0) % MCV (80.0-100.0) fL Plt Count (150-450) k/uL Potassium (3.5-5.1) mmol/L Chloride (98-107) mmol/L Carbon Dioxide (22-30) mmol/L BUN (9-20) mg/dL Glucose (74-99) mg/dL POC Glucose (mg/dL) 144 H 138 H 156 H (75-99) mg/dL Calcium (8.4-10.2) mg/dL 11/05/19 11/05/19 11/05/19 Range/Units 04:10 04:10 04:11 WBC 12.7 H (3.8-10.6) k/uL RBC 2.48 L (4.30-5.90) m/uL Hgb 7.9 L (13.0-17.5) gm/dL Hct 25.4 L (39.0-53.0) % MCV 102.4 H (80.0-100.0) fL Plt Count 932 H (150-450) k/uL Potassium 3.2 L (3.5-5.1) mmol/L Chloride 117 H (98-107) mmol/L Carbon Dioxide 20 L (22-30) mmol/L BUN 24 H (9-20) mg/dL Glucose 133 H (74-99) mg/dL POC Glucose (mg/dL) 143 H (75-99) mg/dL Calcium 7.2 L (8.4-10.2) mg/dL 11/05/19 11/05/19 11/05/19 Range/Units 04:58 06:01 06:52 WBC (3.8-10.6) k/uL RBC (4.30-5.90) m/uL Hgb (13.0-17.5) gm/dL Hct (39.0-53.0) % MCV (80.0-100.0) fL Plt Count (150-450) k/uL Potassium (3.5-5.1) mmol/L Chloride (98-107) mmol/L Carbon Dioxide (22-30) mmol/L BUN (9-20) mg/dL Glucose (74-99) mg/dL POC Glucose (mg/dL) 155 H 143 H 180 H (75-99) mg/dL Calcium (8.4-10.2) mg/dL 11/05/19 11/05/19 11/05/19 Range/Units 08:01 10:03 11:58 WBC (3.8-10.6) k/uL RBC (4.30-5.90) m/uL Hgb (13.0-17.5) gm/dL Hct (39.0-53.0) % MCV (80.0-100.0) fL Plt Count (150-450) k/uL Potassium (3.5-5.1) mmol/L Chloride (98-107) mmol/L Carbon Dioxide (22-30) mmol/L BUN (9-20) mg/dL Glucose (74-99) mg/dL POC Glucose (mg/dL) 184 H 154 H 229 H (75-99) mg/dL Calcium (8.4-10.2) mg/dL 11/05/19 11/05/19 11/05/19 Range/Units 13:17 14:42 16:28 WBC (3.8-10.6) k/uL RBC (4.30-5.90) m/uL Hgb (13.0-17.5) gm/dL Hct (39.0-53.0) % MCV (80.0-100.0) fL Plt Count (150-450) k/uL Potassium (3.5-5.1) mmol/L Chloride (98-107) mmol/L Carbon Dioxide (22-30) mmol/L BUN (9-20) mg/dL Glucose (74-99) mg/dL POC Glucose (mg/dL) 197 H 193 H 170 H (75-99) mg/dL Calcium (8.4-10.2) mg/dL 11/05/19 Range/Units 17:16 WBC (3.8-10.6) k/uL RBC (4.30-5.90) m/uL Hgb (13.0-17.5) gm/dL Hct (39.0-53.0) % MCV (80.0-100.0) fL Plt Count (150-450) k/uL Potassium (3.5-5.1) mmol/L Chloride (98-107) mmol/L Carbon Dioxide (22-30) mmol/L BUN (9-20) mg/dL Glucose (74-99) mg/dL POC Glucose (mg/dL) 182 H (75-99) mg/dL Calcium (8.4-10.2) mg/dL Microbiology - Last 24 Hours (Table) 11/05/19 10:30 Stool Culture - Preliminary Stool 11/04/19 15:56 Urine Culture - Preliminary Urine,Catheterized Assessment and Plan (1) Hyponatremia Current Visit: Yes Status: Acute Code(s): E87.1 - HYPO-OSMOLALITY AND HYPONATREMIA SNOMED Code(s): 64874945 (2) Hyperkalemia Current Visit: Yes Status: Acute Code(s): E87.5 - HYPERKALEMIA SNOMED Code(s): 38359004 (3) Sigmoid diverticulitis Current Visit: Yes Status: Acute Code(s): K57.32 - DVTRCLI OF LG INT W/O PERFORATION OR ABSCESS W/O BLEEDING SNOMED Code(s): 647409464 (4) Dynamic ileus Current Visit: Yes Status: Acute Code(s): K56.7 - ILEUS, UNSPECIFIED SNOMED Code(s): 95513019 (5) Hyperosmolar syndrome Current Visit: Yes Status: Acute Code(s): E87.0 - HYPEROSMOLALITY AND HYPERNATREMIA SNOMED Code(s): 67966887 (6) Hyperosmolarity due to secondary diabetes mellitus Current Visit: Yes Status: Acute Code(s): E13.00 - OTH DIAB W HYPROSM W/O NONKET HYPRGLY-HYPROS COMA ([facility]) SNOMED Code(s): 64822795 (7) Altered mental state Current Visit: No Status: Acute Code(s): R41.82 - ALTERED MENTAL STATUS, UNSPECIFIED SNOMED Code(s): 317650967 (8) Dementia Current Visit: No Status: Acute Code(s): F03.90 - UNSPECIFIED DEMENTIA WITHOUT BEHAVIORAL DISTURBANCE SNOMED Code(s): 77382052 (9) Renal insufficiency syndrome Current Visit: No Status: Acute Code(s): N28.9 - DISORDER OF KIDNEY AND URETER, UNSPECIFIED SNOMED Code(s): 797480246 (10) Shock liver Current Visit: Yes Status: Acute Code(s): K72.00 - ACUTE AND SUBACUTE HEPATIC FAILURE WITHOUT COMA SNOMED Code(s): 336048054 (11) Sepsis Current Visit: Yes Status: Acute Code(s): A41.9 - SEPSIS, UNSPECIFIED ORGANISM SNOMED Code(s): 99998744
[2019-11-05 13:18] LABS: Glucose,Whole Blood 197 mg/dL (75-99)
[2019-11-05 14:44] LABS: Glucose,Whole Blood 193 mg/dL (75-99)
[2019-11-05 16:29] LABS: Glucose,Whole Blood 170 mg/dL (75-99)
[2019-11-05] MEDS: NYSTATIN 100,000 UNIT/ML SUSP 500,000 UNIT/5 ML CUP PO SCH ×2 (16:32→23:38)
[2019-11-05 17:17] LABS: Glucose,Whole Blood 182 mg/dL (75-99)
[2019-11-05 18:22] LABS: Glucose,Whole Blood 203 mg/dL (75-99)
--- NOTE | 2019-11-05 18:29 | PN ---
PROGRESS NOTE DATE OF SERVICE: 11/05/2019 This 79-year-old gentleman who was admitted with acute abdominal sepsis and small-bowel obstruction also had continued fever. The patient had respiratory failure. Patient is currently mechanically ventilated and extubated. Patient is currently slightly confused. Patient also has significant difficulties with the mouth and bleeding and swelling also. The patient is on broad-spectrum antifungals and antibiotics. The patient also had some abdominal distention. The most recent abdominal x-ray, which was reviewed by me, showed features of some ileus. The patient is being closely followed by multiple consultants. Neurologically the patient has made some recovery. Past medical history reviewed. Review of systems could not be taken; the patient is confused. The patient is re-intubated because of respiratory difficulties. CURRENT MEDICATIONS: Reviewed. They include: 1. Tylenol p.r.n. 2. Cordarone 200 mg p.o. b.i.d. 3. Aspirin 81 mg p.o. daily. 4. Fluconazole 200 mg daily. 5. Heparin. 6. Dilaudid 0.25 mg p.r.n. 7. Zestril 2.5 mg daily. 8. P.r.n. medications. 9. Narcan. 10.Nitrostat. 11.Protonix. 12.Zosyn 3.375 IV q.6. PHYSICAL EXAMINATION: Patient is conscious but confused. Pulse is 94, blood pressure 90/51, respiration 35, temperature normal, pulse ox 95% on mechanical ventilation. HEENT: Conjunctivae normal. NECK: No jugular venous distention. CARDIOVASCULAR SYSTEM: S1, S2 muffled. RESPIRATORY SYSTEM: Breath sounds diminished at the bases. Bilateral scattered rhonchi and crackles. ABDOMEN: Soft, nontender. LEGS: No edema. No swelling. NERVOUS SYSTEM: Diffusely weak. LAB INVESTIGATIONS: Lab investigations at this time show glucose 229, 197, 193. Otherwise, the creatinine is 1.01. BUN is improving at 24. The creatinine was elevated earlier. Otherwise, the chest x-ray, which was reviewed personally by me, showed some bilateral lesions. Intake/output shows mostly positive balances for the last several days. ASSESSMENT: 1. Acute abdominal sepsis with acute small-bowel obstruction, present on admission, with continued fever and sepsis. 2. Acute hypoxic respiratory failure secondary to hypovolemic and severe sepsis and septic shock, status post mechanical ventilation and re-intubation. 3. Change in mental status, metabolic encephalopathy, multifactorial. 4. Severe mucositis. 5. Acute right-sided pneumonia, possibly aspiration, with sepsis. 6. Acute nonketotic hyperosmolar diabetic state with severe hyperglycemia, status post IV insulin drip. 7. Acute metabolic encephalopathy with mental status changes, multifactorial. 8. Dementia. 9. Layne albicans from the sputum. 10.Pseudohyponatremia. 11.History of abdominal aortic aneurysm measuring 4.4 cm. 12.Peripheral vascular disease. 13.History of acute shock liver. 14.Congestive heart failure with chronic systolic dysfunction, ejection fraction 30% to 35%, acute on chronic. 15.Prolonged QTc 510, improved. 16.Acute [id number]-dwtkbbc-elevation myocardial infarction, likely type 2, from demand ischemia, present on admission. 17.Acute kidney injury, acute tubular necrosis with prerenal factors. 18.Possible chronic kidney disease, stage III baseline. 19.Hypertension. 20.History of pneumonia. 21.New-onset atrial fibrillation, paroxysmal. 22.FULL CODE. 23.NO CODE, NO CPR, NO VENT. RECOMMENDATIONS AND DISCUSSION: In this 79-year-old gentleman who presented with multiple complex medical issues, we will monitor the patient closely, continue the current medications, continue symptomatic treatment. Otherwise at this time we will closely monitor with Dr. Garcia as well as Surgery. X-ray findings are noted. Continue the antibiotics. One dose of IV Lasix also will be given. We will continue to monitor. Continue the rest of the medications. The prognosis is guarded because of multiple complex medical issues. Further recommendations to follow. MMODL / IJN: [id number] /
[2019-11-05 19:09] LABS: Glucose,Whole Blood 187 mg/dL (75-99)
[2019-11-05] MEDS ORDERED: POTASSIUM BICARBONATE/CIT AC 20 MEQ TABLET.EFF NG-TUBE SCH (20:00)
[2019-11-05 20:01] LABS: Glucose,Whole Blood 182 mg/dL (75-99)
[2019-11-05] MEDS: SODIUM CHLORIDE 0.9% 500 ML 500 ML IV SCH (20:02)
[2019-11-05 21:09] LABS: Glucose,Whole Blood 172 mg/dL (75-99)
[2019-11-05] MEDS: INSULIN REGULAR 100 UNIT in SODIUM CHLORIDE 0.9% 100 ML IV SCH (21:13)
[2019-11-05 21:55] LABS: Glucose,Whole Blood 177 mg/dL (75-99)
[2019-11-06 00:45] LABS: Glucose,Whole Blood 178 mg/dL (75-99)
[2019-11-06 02:32] LABS: Glucose,Whole Blood 177 mg/dL (75-99)
[2019-11-06 02:32] LABS: Glucose,Whole Blood 232 mg/dL (75-99)
[2019-11-06] MEDS: PIPERACILLIN-TAZOBACTAM 3.375 GM in SODIUM CHLORIDE 0.9% 100 ML IVPB SCH (04:07)
[2019-11-06 06:14] LABS: Basophils # (A) 0.1 k/uL (0-0.2); Basophils % (A) 0 %; Eosinophils # (A) 0.2 k/uL (0-0.7); Eosinophils % (A) 1 %; HCT 28.5 % (39.0-53.0); HGB 8.6 gm/dL (13.0-17.5); Hypochromasia Marked; Lymphocytes # (A) 1.3 k/uL (1.0-4.8); Lymphocytes % (A) 10 %; MCHC 30.4 g/dL (31.0-37.0); MCV 105.3 fL (80.0-100.0); Macrocytosis Moderate; Mean Platelet Volume 8.3; Monocytes # (A) 0.7 k/uL (0-1.0); Monocytes % (A) 6 %; Neutrophils # (A) 10.4 k/uL (1.3-7.7); Neutrophils % (A) 80 %; Platelet Count 887 k/uL (150-450); Poikilocytosis Slight; RDW 15.4 % (11.5-15.5)
[2019-11-06] MEDS: ACETAMINOPHEN TAB 325 MG TAB PO PRN (06:19)
[2019-11-06 06:31] LABS: Calcium 7.3 mg/dL (8.4-10.2); Magnesium 1.8 mg/dL (1.6-2.3); Phosphorus 3.3 mg/dL (2.5-4.5); Potassium 4.1 mmol/L (3.5-5.1)
--- NOTE | 2019-11-06 07:12 | XR ---
EXAMINATION TYPE: XR chest 1V DATE OF EXAM: 11/06/2019 COMPARISON: 11/05/2019 HISTORY: Pneumonia. Follow-up exam. TECHNIQUE: Single frontal view of the chest is obtained. FINDINGS: Enteric tube courses of the distal [id number] and appears appropriately placed. Left-si ded central venous catheter has been removed. Platelike left basilar atelectasis is seen with hazy ri ght basilar opacity over the hemidiaphragm, also likely atelectasis as this was not present on 020. Mild central pulmonary vascular congestion remains. Stable low lung volumes. Stable cardiomedias tinal silhouette size. Very trace pleural effusions. IMPRESSION: Interval removal of the left subclavian approach central venous catheter and development of right basilar probable atelectasis, otherwise stable exam.
[2019-11-06 08:55] LABS: Glucose,Whole Blood 192 mg/dL (75-99)
[2019-11-06] MEDS ORDERED: FUROSEMIDE 10 MG/ML 4 ML VIAL IV STA (09:17)
--- NOTE | 2019-11-06 09:19 | P.PN ---
Subjective Progress Note Date: 11/06/19 Principal diagnosis: cardiomyopathy This is an 79-year-old gentleman with extensive past medical history who was admitted to the hospital initially with intra-abdominal sepsis and small bowel obstruction and developed acute hypoxic respiratory failure. the patient was seen today, 11/06/2019. Hemodynamically he continues to be stable. Unfortunately has been in and out of atrial fibrillation with RVR. He is on amiodarone JAMES which we will continue with I am going to a small dose of metoprolol 12.5 mg by mouth twice a day. He is not on any oral anticoagulation because of GI bleeding. Objective - Vital Signs Vital signs: Vital Signs Temp 99.1 F 11/06/19 08:00 Pulse 96 11/06/19 09:00 Resp 32 H 11/06/19 09:00 BP 103/50 11/06/19 09:00 Pulse Ox 97 11/06/19 09:00 Intake & Output 11/05/19 11/06/19 11/06/19 18:59 06:59 18:59 Intake Total 6286.427 5850.072 325 Output Total 2390 2300 85 Balance -954.536 -330.928 240 Weight 87.1 kg Intake: IV 215 430 20 .9 Sodium Chloride @ 10ml 100 130 20 /hr Magnesium Sulfate-D5w Pmx 100 1 gm In Dextrose/Water 1 100ml.bag @ 100 mls/hr IVPB Q1H [facility] Rx#: [id number] Piperacillin-Tazobactam 3 100 200 .375 gm In Sodium Chloride 0.9% 100 ml @ 25 mls/hr IVPB Q8H [facility] Rx#: [id number] Pressure Bag 15 Intake, IV Titration 60.464 29.072 Amount Insulin Regular 100 unit 60.464 29.072 In Sodium Chloride 0.9% 100 ml @ Per Protocol IV .Q0M [facility] Rx#:[id number] Tube Feeding 560 910 105 Other 600 600 200 Output: Urine 1740 1300 85 Stool 650 1000 Other: Voiding Method Indwelling Catheter Indwelling Catheter Indwelling Catheter ABP, PAP, CO, CI - Last Documented Arterial Blood Pressure 145/58 - Constitutional General appearance: Present: no acute distress - Respiratory Respiratory: bilateral: CTA - Cardiovascular Rhythm: regular Heart sounds: normal: S1, S2 - Labs CBC & Chem 7: 11/06/19 05:40 11/06/19 05:40 Labs: Abnormal Lab Results - Last 24 Hours (Table) 11/05/19 11/05/19 11/05/19 Range/Units 10:03 11:58 13:17 WBC (3.8-10.6) k/uL RBC (4.30-5.90) m/uL Hgb (13.0-17.5) gm/dL Hct (39.0-53.0) % MCV (80.0-100.0) fL MCHC (31.0-37.0) g/dL Plt Count (150-450) k/uL Neutrophils # (1.3-7.7) k/uL Chloride (98-107) mmol/L Carbon Dioxide (22-30) mmol/L BUN (9-20) mg/dL Glucose (74-99) mg/dL POC Glucose (mg/dL) 154 H 229 H 197 H (75-99) mg/dL Calcium (8.4-10.2) mg/dL 11/05/19 11/05/19 11/05/19 Range/Units 14:42 16:28 17:16 WBC (3.8-10.6) k/uL RBC (4.30-5.90) m/uL Hgb (13.0-17.5) gm/dL Hct (39.0-53.0) % MCV (80.0-100.0) fL MCHC (31.0-37.0) g/dL Plt Count (150-450) k/uL Neutrophils # (1.3-7.7) k/uL Chloride (98-107) mmol/L Carbon Dioxide (22-30) mmol/L BUN (9-20) mg/dL Glucose (74-99) mg/dL POC Glucose (mg/dL) 193 H 170 H 182 H (75-99) mg/dL Calcium (8.4-10.2) mg/dL 11/05/19 11/05/19 11/05/19 Range/Units 18:21 19:08 19:59 WBC (3.8-10.6) k/uL RBC (4.30-5.90) m/uL Hgb (13.0-17.5) gm/dL Hct (39.0-53.0) % MCV (80.0-100.0) fL MCHC (31.0-37.0) g/dL Plt Count (150-450) k/uL Neutrophils # (1.3-7.7) k/uL Chloride (98-107) mmol/L Carbon Dioxide (22-30) mmol/L BUN (9-20) mg/dL Glucose (74-99) mg/dL POC Glucose (mg/dL) 203 H 187 H 182 H (75-99) mg/dL Calcium (8.4-10.2) mg/dL 11/05/19 11/05/19 11/06/19 Range/Units 21:07 21:53 00:44 WBC (3.8-10.6) k/uL RBC (4.30-5.90) m/uL Hgb (13.0-17.5) gm/dL Hct (39.0-53.0) % MCV (80.0-100.0) fL MCHC (31.0-37.0) g/dL Plt Count (150-450) k/uL Neutrophils # (1.3-7.7) k/uL Chloride (98-107) mmol/L Carbon Dioxide (22-30) mmol/L BUN (9-20) mg/dL Glucose (74-99) mg/dL POC Glucose (mg/dL) 172 H 177 H 178 H (75-99) mg/dL Calcium (8.4-10.2) mg/dL 11/06/19 11/06/19 11/06/19 Range/Units 02:29 02:30 05:40 WBC 13.0 H (3.8-10.6) k/uL RBC 2.70 L (4.30-5.90) m/uL Hgb 8.6 L (13.0-17.5) gm/dL Hct 28.5 L (39.0-53.0) % MCV 105.3 H (80.0-100.0) fL MCHC 30.4 L (31.0-37.0) g/dL Plt Count 887 H (150-450) k/uL Neutrophils # 10.4 H (1.3-7.7) k/uL Chloride (98-107) mmol/L Carbon Dioxide (22-30) mmol/L BUN (9-20) mg/dL Glucose (74-99) mg/dL POC Glucose (mg/dL) 232 H 177 H (75-99) mg/dL Calcium (8.4-10.2) mg/dL 11/06/19 11/06/19 Range/Units 05:40 08:54 WBC (3.8-10.6) k/uL RBC (4.30-5.90) m/uL Hgb (13.0-17.5) gm/dL Hct (39.0-53.0) % MCV (80.0-100.0) fL MCHC (31.0-37.0) g/dL Plt Count (150-450) k/uL Neutrophils # (1.3-7.7) k/uL Chloride 117 H (98-107) mmol/L Carbon Dioxide 20 L (22-30) mmol/L BUN 22 H (9-20) mg/dL Glucose 176 H (74-99) mg/dL POC Glucose (mg/dL) 192 H (75-99) mg/dL Calcium 7.3 L (8.4-10.2) mg/dL Microbiology - Last 24 Hours (Table) 11/05/19 12:50 Catheter Tip Culture - Preliminary Catheter Tip 11/05/19 12:50 Catheter Tip Culture - Preliminary Catheter Tip 11/04/19 15:56 Urine Culture - Final Urine,Catheterized 11/04/19 20:24 Blood Culture - Preliminary Blood No Growth after 24 hours 11/05/19 10:30 Stool Culture - Preliminary Stool Assessment and Plan Assessment: assessment #1 acute hypoxic respiratory failure which has improved #2 paroxysmal atrial fibrillation #3 severe cardiomyopathy #4 peripheral arterial disease #5 multiple comorbid conditions Plan #1 continue the current medical regimen including the current dose of amiodarone #2 start the patient on metoprolol at 12.5 mg by mouth twice a day #3 follow-up with the patient
--- NOTE | 2019-11-06 09:22 | P.PN ---
Subjective Patient is seen in follow-up for acute kidney injury. Patient extubated on November 02. Renal function is stable. Sodium level 145. No improvement in mentation. Tube feedings discontinued this morning as he is having significant diarrhea. Vital signs are stable. General: The patient appeared well nourished and normally developed. HEENT: Head exam is unremarkable. Neck is without jugular venous distension. LUNGS: Breath sounds decreased. HEART: Rate and Rhythm are regular. ABDOMEN: Soft, moderate distention noted. EXTREMITITES: 1+ edema. Objective - Vital Signs Vital signs: Vital Signs Temp 99.1 F 11/06/19 08:00 Pulse 96 11/06/19 09:00 Resp 32 H 11/06/19 09:00 BP 103/50 11/06/19 09:00 Pulse Ox 97 11/06/19 09:00 Intake & Output 11/05/19 11/06/19 11/06/19 18:59 06:59 18:59 Intake Total 4488.198 9228.072 325 Output Total 2390 2300 85 Balance -954.536 -330.928 240 Weight 87.1 kg Intake: IV 215 430 20 .9 Sodium Chloride @ 10ml 100 130 20 /hr Magnesium Sulfate-D5w Pmx 100 1 gm In Dextrose/Water 1 100ml.bag @ 100 mls/hr IVPB Q1H INDU Rx#: [id number] Piperacillin-Tazobactam 3 100 200 .375 gm In Sodium Chloride 0.9% 100 ml @ 25 mls/hr IVPB Q8H INDU Rx#: [id number] Pressure Bag 15 Intake, IV Titration 60.464 29.072 Amount Insulin Regular 100 unit 60.464 29.072 In Sodium Chloride 0.9% 100 ml @ Per Protocol IV .Q0M INDU Rx#:[id number] Tube Feeding 560 910 105 Other 600 600 200 Output: Urine 1740 1300 85 Stool 650 1000 Other: Voiding Method Indwelling Catheter Indwelling Catheter Indwelling Catheter ABP, PAP, CO, CI - Last Documented Arterial Blood Pressure 145/58 - Labs CBC & Chem 7: 11/06/19 05:40 11/06/19 05:40 Labs: Abnormal Lab Results - Last 24 Hours (Table) 11/05/19 11/05/19 11/05/19 Range/Units 10:03 11:58 13:17 WBC (3.8-10.6) k/uL RBC (4.30-5.90) m/uL Hgb (13.0-17.5) gm/dL Hct (39.0-53.0) % MCV (80.0-100.0) fL MCHC (31.0-37.0) g/dL Plt Count (150-450) k/uL Neutrophils # (1.3-7.7) k/uL Chloride (98-107) mmol/L Carbon Dioxide (22-30) mmol/L BUN (9-20) mg/dL Glucose (74-99) mg/dL POC Glucose (mg/dL) 154 H 229 H 197 H (75-99) mg/dL Calcium (8.4-10.2) mg/dL 11/05/19 11/05/19 11/05/19 Range/Units 14:42 16:28 17:16 WBC (3.8-10.6) k/uL RBC (4.30-5.90) m/uL Hgb (13.0-17.5) gm/dL Hct (39.0-53.0) % MCV (80.0-100.0) fL MCHC (31.0-37.0) g/dL Plt Count (150-450) k/uL Neutrophils # (1.3-7.7) k/uL Chloride (98-107) mmol/L Carbon Dioxide (22-30) mmol/L BUN (9-20) mg/dL Glucose (74-99) mg/dL POC Glucose (mg/dL) 193 H 170 H 182 H (75-99) mg/dL Calcium (8.4-10.2) mg/dL 11/05/19 11/05/19 11/05/19 Range/Units 18:21 19:08 19:59 WBC (3.8-10.6) k/uL RBC (4.30-5.90) m/uL Hgb (13.0-17.5) gm/dL Hct (39.0-53.0) % MCV (80.0-100.0) fL MCHC (31.0-37.0) g/dL Plt Count (150-450) k/uL Neutrophils # (1.3-7.7) k/uL Chloride (98-107) mmol/L Carbon Dioxide (22-30) mmol/L BUN (9-20) mg/dL Glucose (74-99) mg/dL POC Glucose (mg/dL) 203 H 187 H 182 H (75-99) mg/dL Calcium (8.4-10.2) mg/dL 11/05/19 11/05/19 11/06/19 Range/Units 21:07 21:53 00:44 WBC (3.8-10.6) k/uL RBC (4.30-5.90) m/uL Hgb (13.0-17.5) gm/dL Hct (39.0-53.0) % MCV (80.0-100.0) fL MCHC (31.0-37.0) g/dL Plt Count (150-450) k/uL Neutrophils # (1.3-7.7) k/uL Chloride (98-107) mmol/L Carbon Dioxide (22-30) mmol/L BUN (9-20) mg/dL Glucose (74-99) mg/dL POC Glucose (mg/dL) 172 H 177 H 178 H (75-99) mg/dL Calcium (8.4-10.2) mg/dL 11/06/19 11/06/19 11/06/19 Range/Units 02:29 02:30 05:40 WBC 13.0 H (3.8-10.6) k/uL RBC 2.70 L (4.30-5.90) m/uL Hgb 8.6 L (13.0-17.5) gm/dL Hct 28.5 L (39.0-53.0) % MCV 105.3 H (80.0-100.0) fL MCHC 30.4 L (31.0-37.0) g/dL Plt Count 887 H (150-450) k/uL Neutrophils # 10.4 H (1.3-7.7) k/uL Chloride (98-107) mmol/L Carbon Dioxide (22-30) mmol/L BUN (9-20) mg/dL Glucose (74-99) mg/dL POC Glucose (mg/dL) 232 H 177 H (75-99) mg/dL Calcium (8.4-10.2) mg/dL 11/06/19 11/06/19 Range/Units 05:40 08:54 WBC (3.8-10.6) k/uL RBC (4.30-5.90) m/uL Hgb (13.0-17.5) gm/dL Hct (39.0-53.0) % MCV (80.0-100.0) fL MCHC (31.0-37.0) g/dL Plt Count (150-450) k/uL Neutrophils # (1.3-7.7) k/uL Chloride 117 H (98-107) mmol/L Carbon Dioxide 20 L (22-30) mmol/L BUN 22 H (9-20) mg/dL Glucose 176 H (74-99) mg/dL POC Glucose (mg/dL) 192 H (75-99) mg/dL Calcium 7.3 L (8.4-10.2) mg/dL Microbiology - Last 24 Hours (Table) 11/05/19 12:50 Catheter Tip Culture - Preliminary Catheter Tip 11/05/19 12:50 Catheter Tip Culture - Preliminary Catheter Tip 11/04/19 15:56 Urine Culture - Final Urine,Catheterized 11/04/19 20:24 Blood Culture - Preliminary Blood No Growth after 24 hours 11/05/19 10:30 Stool Culture - Preliminary Stool Assessment and Plan Plan: Assessment: 1. Acute kidney injury secondary to ATN secondary to severe intravascular volume depletion due to hyperglycemia and further worsened with hypotension. Creatinine peaked at 2.7 this admission and is stable near 1 today. 2. Rule out chronic kidney disease. Creatinine was in the range of 1.2-1.5 in July 2018. No proteinuria on UA. 3. Severe metabolic acidosis secondary to DKA. Improved. 4. DKA s/p insulin drip. 5. Hypernatremia secondary to lack of oral water intake and diuresis. 6. Possible pneumonia s/p antibiotics. 7. Anoxic brain injury. 8. Hypokalemia secondary to diuresis. Being replaced. Magnesium normal. 9. Volume overload. Status post IV Lasix on November 04. 10. Abdominal distention. Likely due to ileus versus small bowel obstruction. Surgery following. Plan: Start D5W at 75 mL an hour. Repeat Lasix 40 mg IV once today. Repeat sodium level this evening. GI consulted for the significant diarrhea.
--- NOTE | 2019-11-06 10:03 | P.PN ---
Subjective Progress Note Date: 11/06/19 Principal diagnosis: hypovolemic shock, small bowel ileus/obstruction, right lower lobe pneumonia on 11/04/2019 patient is seen in follow-up in the intensive care unit. Patient was successfully weaned and extubated from the mechanical ventilator yesterday on 11/03/2019, this morning patient is on 5 L per nasal cannula his pulse ox is 92-95%. he is awake, his speech is difficult to understand, as he is following basic commands, he is able to squeeze hands on command and wiggle his toes. his been having low-grade fevers, his T-max in the last 24 hours was 100.2F. remains on a combination of Diflucan, Flagyl and Zosyn. microbiology data reviewed, and all his cultures are negative except for Layne albicans in the sputum. Abdomen is nontender, patient has NG tube in place with tube feeds infusing with the formula vital a half at a rate of 70 with a goal of 70. IV fl uids include 0.9 normal saline at a rate of 10, insulin drip at 5.5 units per hour. No other drips. Lung sounds are positive for diffuse rhonchi bilaterally. Patient is also audibly congested, and his mucous membranes are extremely dry with bleeding from his mouth. family symptoms or has been reviewed showing increased bibasilar densities. patient remains in atrial fibrillation with a controlled rate at 95 BPM. Hemodynamically patient is stable. today's labs have been reviewed showing white blood cell count of 11.2, hemoglobin of 7.8, sodium is 141, potassium is 3.4, chloride is 117, CO2 is 19, B1 is 22, creatinine 0.99. generally patient is extremely weak, consult physical therapy. On 11/05/2019 patient seen in follow-up in the intensive care unit. He is awake, following commands, however his orientation is difficult to assess related to his extremely garbled speech. appears to be in no acute distress, he was successfully weaned and extubated on 11/03/2019. Currently oon 4 L of oxygen his pulse ox is 96-99%, still running a low-grade fevers, T-max in the last 24 hours is 100.6F, culture data has been reviewed, blood, sputum, and urine cultures are negative. Remains on fluconazole and Zosyn for antibiotic coverage. He is receiving tube feedings, with the formula of vital AF at a rate of 70, with a goal of 70. Receiving free water flushes 200 ML every 4 hours. IV fluids infusing at a rate of 20 ml/hr, insulin infusion is at 5.5 units per hour. Yesterday we administered 1 dose of IV Lasix, patient produced 3.8 liters in urine output in addition to 2.5 L in liquid diarrhea. Stool for C. diff was negative. today's chest x-ray has been reviewed with Dr. Garcia, showing stable findings, persistent low lung volumes and central vascular congestion with patchy bibasilar Infiltrates and/or atelectasis. today's labs have been reviewed showing white blood cell count of 12.7, hemoglobin of 7.9, sodium is 141, potassium is 3.2, chloride is 117, CO2 is 20, B1 is 24 creatinine is 1.01. Patient abdomen is slightly more distended but soft, and nontender. Lung sounds reveal diffuse rhonchi On 11/06/2019 patient seen in follow-up in the intensive care. Patient is awake, confused, but following basic commands, appears to be in no acute distress. he currently on 2 L of oxygen his pulse ox is 97%, sounds much is congested on today's exam, with only scattered rhonchi bilaterally. Stable oxygenation on 2 L of oxygen. Remains nothing by mouth, he has an NG tube in place, with tube feedings infusing in the form of vital a cuff at a rate of 70, and with a goal of 70 with free water flushes. patient is still having large volume diarrhea, C. diff was negative, stool was sent for cultures, however diarrhea volume seems to have improved somewhat, and patient produced 1.6 L in liquid diarrhea over the last 24 hours, continues to have adequate urine output, he produced over 3 L in urine output in the last 24 hours. Yesterday we discontinued his Artline and subclavian triple-lumen catheter, and catheter tips were sent for culture.patient still has a low-grade fevers, and the last 24 hours his T-max was 100.6F. Low-grade fever with a temp of 99.1F this morning. patient has received 14 days of Flagyl and 15 days of Zosyn. all culture data remains negative to date. today's chest x-ray has been reviewed showing interval removal of the left subclavian central venous catheter and right basilar probable atelectasis. patient had a KUB of the abdomen which showed prominent gas and distended small bowel loops in the mid to lower abdomen the possibility of persistent mid to distal small bowel obstruction without interval resolution.surgical services are following. Objective - Vital Signs Vital signs: Vital Signs Temp 99.1 F 11/06/19 08:00 Pulse 96 11/06/19 09:00 Resp 32 H 11/06/19 09:00 BP 103/50 11/06/19 09:00 Pulse Ox 97 11/06/19 09:00 Intake & Output 11/05/19 11/06/19 11/06/19 18:59 06:59 18:59 Intake Total 2785.742 1517.072 325 Output Total 2390 2300 85 Balance -954.536 -330.928 240 Weight 87.1 kg Intake: IV 215 430 20 .9 Sodium Chloride @ 10ml 100 130 20 /hr Magnesium Sulfate-D5w Pmx 100 1 gm In Dextrose/Water 1 100ml.bag @ 100 mls/hr IVPB Q1H INDU Rx#: [id number] Piperacillin-Tazobactam 3 100 200 .375 gm In Sodium Chloride 0.9% 100 ml @ 25 mls/hr IVPB Q8H INDU Rx#: [id number] Pressure Bag 15 Intake, IV Titration 60.464 29.072 Amount Insulin Regular 100 unit 60.464 29.072 In Sodium Chloride 0.9% 100 ml @ Per Protocol IV .Q0M INDU Rx#:[id number] Tube Feeding 560 910 105 Other 600 600 200 Output: Urine 1740 1300 85 Stool 650 1000 Other: Voiding Method Indwelling Catheter Indwelling Catheter Indwelling Catheter ABP, PAP, CO, CI - Last Documented Arterial Blood Pressure 145/58 - Exam GENERAL EXAM: Alert, 79-year-old white male, on 2 L of oxygen with a pulse ox of 97%, with NG tube in place and tube feedings infusing, patient mumbles his speech is difficult to understand, but follows basic commands HEAD: Normocephalic/atraumatic. EYES: Normal reaction of pupils, equal size. Conjunctiva pink, sclera white. NOSE: Clear with pink turbinates. THROAT: No erythema or exudates. NECK: No masses, no JVD, no thyroid enlargement, no adenopathy. CHEST: No chest wall deformity. Symmetrical expansion. LUNGS: Equal air entry with no crackles, wheeze, rhonchi or dullness. CVS: Irregular rate and rhythm, normal S1 and S2, no gallops, no murmurs, no rubs ABDOMEN: Soft, nontender, slightly more distended on today's exam, but nontender No hepatosplenomegaly, normal bowel sounds, no guarding or rigidity. EXTREMITIES: No clubbing, 1+ edema in upper extremities, mild pretibial edema, no cyanosis, 2+ pulses and upper and lower extremities. MUSCULOSKELETAL: Muscle strength and tone normal. SPINE: No scoliosis or deformity SKIN: No rashes CENTRAL NERVOUS SYSTEM: patient is alert, but unable to assess orientation as the patient is difficult to understand. No focal deficits, tone is normal in all 4 extremities. - Labs CBC & Chem 7: 11/06/19 05:40 11/06/19 05:40 Labs: Abnormal Lab Results - Last 24 Hours (Table) 11/05/19 11/05/19 11/05/19 Range/Units 10:03 11:58 13:17 WBC (3.8-10.6) k/uL RBC (4.30-5.90) m/uL Hgb (13.0-17.5) gm/dL Hct (39.0-53.0) % MCV (80.0-100.0) fL MCHC (31.0-37.0) g/dL Plt Count (150-450) k/uL Neutrophils # (1.3-7.7) k/uL Chloride (98-107) mmol/L Carbon Dioxide (22-30) mmol/L BUN (9-20) mg/dL Glucose (74-99) mg/dL POC Glucose (mg/dL) 154 H 229 H 197 H (75-99) mg/dL Calcium (8.4-10.2) mg/dL 11/05/19 11/05/19 11/05/19 Range/Units 14:42 16:28 17:16 WBC (3.8-10.6) k/uL RBC (4.30-5.90) m/uL Hgb (13.0-17.5) gm/dL Hct (39.0-53.0) % MCV (80.0-100.0) fL MCHC (31.0-37.0) g/dL Plt Count (150-450) k/uL Neutrophils # (1.3-7.7) k/uL Chloride (98-107) mmol/L Carbon Dioxide (22-30) mmol/L BUN (9-20) mg/dL Glucose (74-99) mg/dL POC Glucose (mg/dL) 193 H 170 H 182 H (75-99) mg/dL Calcium (8.4-10.2) mg/dL 11/05/19 11/05/19 11/05/19 Range/Units 18:21 19:08 19:59 WBC (3.8-10.6) k/uL RBC (4.30-5.90) m/uL Hgb (13.0-17.5) gm/dL Hct (39.0-53.0) % MCV (80.0-100.0) fL MCHC (31.0-37.0) g/dL Plt Count (150-450) k/uL Neutrophils # (1.3-7.7) k/uL Chloride (98-107) mmol/L Carbon Dioxide (22-30) mmol/L BUN (9-20) mg/dL Glucose (74-99) mg/dL POC Glucose (mg/dL) 203 H 187 H 182 H (75-99) mg/dL Calcium (8.4-10.2) mg/dL 11/05/19 11/05/19 11/06/19 Range/Units 21:07 21:53 00:44 WBC (3.8-10.6) k/uL RBC (4.30-5.90) m/uL Hgb (13.0-17.5) gm/dL Hct (39.0-53.0) % MCV (80.0-100.0) fL MCHC (31.0-37.0) g/dL Plt Count (150-450) k/uL Neutrophils # (1.3-7.7) k/uL Chloride (98-107) mmol/L Carbon Dioxide (22-30) mmol/L BUN (9-20) mg/dL Glucose (74-99) mg/dL POC Glucose (mg/dL) 172 H 177 H 178 H (75-99) mg/dL Calcium (8.4-10.2) mg/dL 11/06/19 11/06/19 11/06/19 Range/Units 02:29 02:30 05:40 WBC 13.0 H (3.8-10.6) k/uL RBC 2.70 L (4.30-5.90) m/uL Hgb 8.6 L (13.0-17.5) gm/dL Hct 28.5 L (39.0-53.0) % MCV 105.3 H (80.0-100.0) fL MCHC 30.4 L (31.0-37.0) g/dL Plt Count 887 H (150-450) k/uL Neutrophils # 10.4 H (1.3-7.7) k/uL Chloride (98-107) mmol/L Carbon Dioxide (22-30) mmol/L BUN (9-20) mg/dL Glucose (74-99) mg/dL POC Glucose (mg/dL) 232 H 177 H (75-99) mg/dL Calcium (8.4-10.2) mg/dL 11/06/19 11/06/19 Range/Units 05:40 08:54 WBC (3.8-10.6) k/uL RBC (4.30-5.90) m/uL Hgb (13.0-17.5) gm/dL Hct (39.0-53.0) % MCV (80.0-100.0) fL MCHC (31.0-37.0) g/dL Plt Count (150-450) k/uL Neutrophils # (1.3-7.7) k/uL Chloride 117 H (98-107) mmol/L Carbon Dioxide 20 L (22-30) mmol/L BUN 22 H (9-20) mg/dL Glucose 176 H (74-99) mg/dL POC Glucose (mg/dL) 192 H (75-99) mg/dL Calcium 7.3 L (8.4-10.2) mg/dL Microbiology - Last 24 Hours (Table) 11/05/19 12:50 Catheter Tip Culture - Preliminary Catheter Tip 11/05/19 12:50 Catheter Tip Culture - Preliminary Catheter Tip 11/04/19 15:56 Urine Culture - Final Urine,Catheterized 11/04/19 20:24 Blood Culture - Preliminary Blood No Growth after 24 hours 11/05/19 10:30 Stool Culture - Preliminary Stool Assessment and Plan Plan: #1. Acute hypoxic respiratory failure secondary to hypovolemic and septic shock, patient was intubated on 10/22/2019, and weaned and extubated on 11/04/2019 #2. Acute abdominal sepsis, small bowel ileus/obstruction, remains on Zosyn and Flagyl. Resolved. #3. Possible right lower lobe pneumonia, hospital-acquired or could be aspiration related. #4. Acute hyperosmolar nonketotic diabetic syndrome with profound hypovolemia and volume depletion/dehydration, improved #5. Acute kidney injury secondary to hypovolemia and possible septic shock with acute tubular necrosis. Resolved #6. Altered mental status on presentation secondary to hyperosmolar nonketotic state. Mental status is improved, although patient remains confused, but alert, and following basic commands #7. History of Alzheimer's dementia #8. Type 2 diabetes #9. Pseudohyponatremia on presentation secondary to severe hyperglycemia. Resolved #10. Benign essential hypertension #11. Peripheral vessel occlusive disease mostly involving lower extremities. #12. History of 4.6 cm distal abdominal aortic aneurysm and previous iliac stent the graft placement. #13. Acute shock liver secondary to hypotension on presentation. Improving. #14. History of ischemic cardiomyopathy and LV dysfunction, ejection fraction of 30%. #15. Severe lactic acidosis on presentation most likely secondary to abdominal sepsis and ischemic bowel, significantly improved #16. Coma, resolved #17. Large volume liquid diarrhea, C. diff negative #18. Possibility of persistent mid to distal small bowel obstruction seen on the KUB abdomen on 11/05/2019, surgical services are following. Plan: patient has received 14 days of Flagyl, and 15 days of IV Zosyn, culture data remains negative to date, still having low-grade fevers, however patient received sufficient course of antibiotics, we will discontinue the antibiotics, continue monitoring fever pattern, triple-lumen central venous catheter and arterial line have been removed, patient had a midline placed. Maintain aspiration precautions, patient remains nothing by mouth, tolerating tube feedings, still having large volume diarrhea which is somewhat improved compared to yesterday, KUB abdomen results have been reviewed showing possibility of mid to distal small bowel obstruction without resolution, surgical services are following. we'll consult GI services for persistent diarrhea. Stool culture has been sent, C. diff has been negative. we'll stop the tube feedings for 24 hours to see if it improves the abdominal distention, and the diarrhea. Continue with IV fluids, and insulin infusion. Patient was unable to complete a swallow evaluation related to follow command, still remains very confused but awake and alert. Weaning FiO2, encourage pulmonary toileting, increase activity as tolerated, physical therapy has been consulted. GI and DVT prophylaxis, we'll continue to closely monitor in the intensive care unit. I performed a history & physical examination of the patient and discussed their management with my nurse practitioner, Roshni Francis. I reviewed the nurse practitioner's note and agree with the documented findings and plan of care. Lung sounds are positive for diffuse rhonchi throughout the lung flores. The findings and the impression was discussed with the patient. I attest to the documentation by the nurse practitioner. Time with Patient: Less than 30
[2019-11-06] MEDS: HEPARIN SODIUM,PORCINE 5,000 UNIT/ML 1 ML VIAL SQ SCH ×2 (10:41→16:43)
[2019-11-06] MEDS: PANTOPRAZOLE 40 MG/10 ML VIAL IV SCH (10:41)
[2019-11-06] MEDS: MAGNESIUM SULFATE-D5W PMX 1 GM in DEXTROSE/WATER 1 100ML.BAG IVPB SCH ×2 (10:41→12:08)
[2019-11-06] MEDS: ASPIRIN 81 MG PO SCH (10:45)
[2019-11-06] MEDS: METOPROLOL TARTRATE 12.5 MG TAB PO SCH ×2 (10:45→21:35)
[2019-11-06] MEDS: AMIODARONE 200 MG TAB PO SCH ×2 (10:45→21:35)
[2019-11-06] MEDS: NYSTATIN 100,000 UNIT/ML SUSP 500,000 UNIT/5 ML CUP PO SCH ×4 (10:45→21:35)
[2019-11-06] MEDS: SODIUM CHLORIDE 0.9% 500 ML 500 ML IV SCH (10:46)
[2019-11-06] MEDS: DEXTROSE 5% IN WATER 1,000 ML IV SCH ×2 (10:55→23:17)
[2019-11-06 11:04] LABS: Glucose,Whole Blood 153 mg/dL (75-99)
[2019-11-06] MEDS: LISINOPRIL 2.5 MG TAB PO SCH (12:08)
[2019-11-06 12:14] LABS: Glucose,Whole Blood 184 mg/dL (75-99)
[2019-11-06 13:08] LABS: Glucose,Whole Blood 181 mg/dL (75-99)
--- NOTE | 2019-11-06 13:56 | P.PN ---
<Jodie Garcia Melvin - Last Filed: 11/06/19 13:55> Subjective Progress Note Date: 11/06/19 CHIEF COMPLAINT: Sepsis HISTORY OF PRESENT ILLNESS: Patient examined in the intensive care. He remains extubated. Patient unable to complete swallow evaluation yesterday. He remains NPO. Patient has NG and had tube feedings infusing. However, patient has produced over 1.5L of liquid stool over the last 24 hours. His tube feedings were stopped this morning per Dr. Garcia. PHYSICAL EXAM: VITAL SIGNS: Reviewed GENERAL: Well-developed in no acute distress. HEENT: No sclera icterus. Extraocular movements grossly intact. Moist buccal mucosa. Head is atraumatic, normocephalic. No nasal drainage. NECK: Supple without lymphadenopathy. CHEST: Non-labored respirations and equal bilateral excursions. CARDIOVASCULAR: Regular rate with regular rhythm. Palpable 2+ radial pulses. ABDOMEN: Soft. Mildly distended. Nontender. NG tube noted. Tube feedings have been stopped. MUSCULOSKELETAL: No clubbing or cyanosis. NEUROLOGIC: Awake and alert. SKIN: Well perfused. Good skin turgor. ASSESSMENT: 1. Abnormal computed tomography scan with small bowel distention, resolving PLAN: Tube feedings stopped per Dr. Garcia this morning to see if diarrhea improves. Continue to monitor output Recommend consult with dietary about possibly changing tube feeding formula Continue NPO status as patient unable to complete swallow evaluation Stool studies ordered. Await results If family wants to continue aggressive medical treatment, may require PEG tube placement if patient unable to tolerate PO intake in the future Dr. Quintero recommends CT of the sinuses as this may be a cause of fevers secondary to sinusitis from prolonged NG tube. Will defer to internal medicine Nurse practitioner note has been reviewed by physician. Signing provider agrees with the documented findings, assessment, and plan of care. Objective - Vital Signs Vital signs: Vital Signs Temp 99.2 F 11/06/19 12:00 Pulse 90 11/06/19 13:00 Resp 25 H 11/06/19 13:00 BP 92/44 11/06/19 13:00 Pulse Ox 97 11/06/19 13:00 Intake & Output 11/05/19 11/06/19 11/06/19 18:59 06:59 18:59 Intake Total 6243.320 4701.072 658.958 Output Total 2390 2300 1205 Balance -954.536 -330.928 -546.042 Weight 87.1 kg Intake: IV 215 430 290 .9 Sodium Chloride @ 10ml 100 130 40 /hr Dextrose 5% in Water 1, 150 000 ml @ 75 mls/hr IV . [id number] [facility] Rx#:[id number] Magnesium Sulfate-D5w Pmx 100 100 1 gm In Dextrose/Water 1 100ml.bag @ 100 mls/hr IVPB Q1H [facility] Rx#: [id number] Piperacillin-Tazobactam 3 100 200 .375 gm In Sodium Chloride 0.9% 100 ml @ 25 mls/hr IVPB Q8H [facility] Rx#: [id number] Pressure Bag 15 Intake, IV Titration 60.464 29.072 63.958 Amount Insulin Regular 100 unit 60.464 29.072 63.958 In Sodium Chloride 0.9% 100 ml @ Per Protocol IV .Q0M IN[facility] Rx#:[id number] Tube Feeding 560 910 105 Other 600 600 200 Output: Urine 1740 1300 1205 Stool 650 1000 Other: Voiding Method Indwelling Catheter Indwelling Catheter Indwelling Catheter ABP, PAP, CO, CI - Last Documented Arterial Blood Pressure 145/58 - Labs CBC & Chem 7: 11/06/19 05:40 11/06/19 05:40 Labs: Abnormal Lab Results - Last 24 Hours (Table) 11/05/19 11/05/19 11/05/19 Range/Units 13:17 14:42 16:28 WBC (3.8-10.6) k/uL RBC (4.30-5.90) m/uL Hgb (13.0-17.5) gm/dL Hct (39.0-53.0) % MCV (80.0-100.0) fL MCHC (31.0-37.0) g/dL Plt Count (150-450) k/uL Neutrophils # (1.3-7.7) k/uL Chloride (98-107) mmol/L Carbon Dioxide (22-30) mmol/L BUN (9-20) mg/dL Glucose (74-99) mg/dL POC Glucose (mg/dL) 197 H 193 H 170 H (75-99) mg/dL Calcium (8.4-10.2) mg/dL 11/05/19 11/05/19 11/05/19 Range/Units 17:16 18:21 19:08 WBC (3.8-10.6) k/uL RBC (4.30-5.90) m/uL Hgb (13.0-17.5) gm/dL Hct (39.0-53.0) % MCV (80.0-100.0) fL MCHC (31.0-37.0) g/dL Plt Count (150-450) k/uL Neutrophils # (1.3-7.7) k/uL Chloride (98-107) mmol/L Carbon Dioxide (22-30) mmol/L BUN (9-20) mg/dL Glucose (74-99) mg/dL POC Glucose (mg/dL) 182 H 203 H 187 H (75-99) mg/dL Calcium (8.4-10.2) mg/dL 11/05/19 11/05/19 11/05/19 Range/Units 19:59 21:07 21:53 WBC (3.8-10.6) k/uL RBC (4.30-5.90) m/uL Hgb (13.0-17.5) gm/dL Hct (39.0-53.0) % MCV (80.0-100.0) fL MCHC (31.0-37.0) g/dL Plt Count (150-450) k/uL Neutrophils # (1.3-7.7) k/uL Chloride (98-107) mmol/L Carbon Dioxide (22-30) mmol/L BUN (9-20) mg/dL Glucose (74-99) mg/dL POC Glucose (mg/dL) 182 H 172 H 177 H (75-99) mg/dL Calcium (8.4-10.2) mg/dL 11/06/19 11/06/19 11/06/19 Range/Units 00:44 02:29 02:30 WBC (3.8-10.6) k/uL RBC (4.30-5.90) m/uL Hgb (13.0-17.5) gm/dL Hct (39.0-53.0) % MCV (80.0-100.0) fL MCHC (31.0-37.0) g/dL Plt Count (150-450) k/uL Neutrophils # (1.3-7.7) k/uL Chloride (98-107) mmol/L Carbon Dioxide (22-30) mmol/L BUN (9-20) mg/dL Glucose (74-99) mg/dL POC Glucose (mg/dL) 178 H 232 H 177 H (75-99) mg/dL Calcium (8.4-10.2) mg/dL 11/06/19 11/06/19 11/06/19 Range/Units 05:40 05:40 08:54 WBC 13.0 H (3.8-10.6) k/uL RBC 2.70 L (4.30-5.90) m/uL Hgb 8.6 L (13.0-17.5) gm/dL Hct 28.5 L (39.0-53.0) % MCV 105.3 H (80.0-100.0) fL MCHC 30.4 L (31.0-37.0) g/dL Plt Count 887 H (150-450) k/uL Neutrophils # 10.4 H (1.3-7.7) k/uL Chloride 117 H (98-107) mmol/L Carbon Dioxide 20 L (22-30) mmol/L BUN 22 H (9-20) mg/dL Glucose 176 H (74-99) mg/dL POC Glucose (mg/dL) 192 H (75-99) mg/dL Calcium 7.3 L (8.4-10.2) mg/dL 11/06/19 11/06/19 Range/Units 11:03 12:12 WBC (3.8-10.6) k/uL RBC (4.30-5.90) m/uL Hgb (13.0-17.5) gm/dL Hct (39.0-53.0) % MCV (80.0-100.0) fL MCHC (31.0-37.0) g/dL Plt Count (150-450) k/uL Neutrophils # (1.3-7.7) k/uL Chloride (98-107) mmol/L Carbon Dioxide (22-30) mmol/L BUN (9-20) mg/dL Glucose (74-99) mg/dL POC Glucose (mg/dL) 153 H 184 H (75-99) mg/dL Calcium (8.4-10.2) mg/dL Microbiology - Last 24 Hours (Table) 11/05/19 12:50 Catheter Tip Culture - Preliminary Catheter Tip 11/05/19 12:50 Catheter Tip Culture - Preliminary Catheter Tip 11/04/19 15:56 Urine Culture - Final Urine,Catheterized 11/04/19 20:24 Blood Culture - Preliminary Blood No Growth after 24 hours 11/05/19 10:30 Stool Culture - Preliminary Stool <Bess Quintero N - Last Filed: 11/08/19 11:14> Subjective Patient seen and evaluated with nurse practitioner and agree with above. HISTORY OF PRESENT ILLNESS: The patient is a 79 year old male with complicated medical history including baseline dementia including uncontrolled diabetes, liver shock now resolved, small bowel obstruction resolved, sepsis on presentation. He had prolonged intubation recently extubated in the last 4+ days. His initial swallow study was performed and failed. Separately, patient continues to have diarrhea. He is on tube feeds. He can now verbalize his res ponses. REVIEW OF ORGAN SYSTEMS: No chest pain. No hematuria. T-max 100.0. PHYSICAL EXAM: VITALS: Reviewed CONSTITUTIONAL: Well developed and in no acute distress. EYES: Conjuctivae without sclera icterus. Extraocular movements grossly intact. HEAD, EARS, NOSE, THROAT: Moist buccal mucosa. Head is atraumatic, normocephalic. No nasal drainage. NECK: Supple. No thyroidomegaly. RESPIRATORY: Nonlabored respirations. No gross wheezes. CARDIOVASCULAR: Palpable 2+ radial pulses. ABDOMEN: Soft. Nontender. Nondistended. Has fecal stool system with brown liquid stools MUSCULOSKELETAL: No clubbing, cyanosis. Edema bilateral upper extremity 2+ SKIN: Warm and well perfused with good skin turgor. NEUROLOGIC: No focal or lateralizing signs. PSYCH: Alert to self. CLINCAL LABS: Reviewed. WBC down from 15.4-12.7, now 13.0 MICROBIOLOGY: Cultures growing Layne in sputum, stool, urine. SEROLOGY: C. diff negative. Coronavirus negative. STUDIES: Abdominal x-ray dependently reviewed and unchanged from previous abdominal x-rays days ago. Diffuse bowel gas pattern. Per radiology report, persistent small bowel obstruction however disconcordant with previous abdominal x-ray results demonstrating resolution of bowel obstruction ASSESSMENT: 1. Chronic diarrhea 2. Abdominal aortic aneurysm 3. Uncontrolled diabetes type 2 with hyperglycemia 4. Lactic acidosis 5. Acute respiratory failure 6. Dementia 7. Acute kidney injury 8. Sepsis 9. Candidiasis PLAN: 1. Recommend adjustment of tube feeds from elemental to fiber based to address chronic diarrhea 2. Also, patient has persistent nasogastric tube which puts him at risk for chronic sinusitis and potential fevers. May benefit from CT of the face/sinuses to evaluate for chronic sinusitis 3. May need gastrostomy tube over persistent nasogastric tube Objective - Vital Signs Vital signs: Vital Signs Temp 98.3 F 11/08/19 08:00 Pulse 85 11/08/19 10:00 Resp 15 11/08/19 10:00 BP 114/54 11/08/19 10:00 Pulse Ox 94 L 11/08/19 10:00 Intake & Output 11/07/19 11/08/19 11/08/19 18:59 06:59 18:59 Intake Total 896.804 635.459 211.076 Output Total 1370 1315 140 Balance -473.196 -679.541 71.076 Weight 83.5 kg Intake: IV 850 600 200 Dextrose 5% in Water 1, 750 000 ml @ 75 mls/hr IV . [id number] [facility] Rx#:[id number] Lactated Ringers 1,000 ml 100 600 200 @ 50 mls/hr IV .Q20H [facility] Rx#:[id number] Intake, IV Titration 46.804 35.459 11.076 Amount Insulin Regular 100 unit 46.804 35.459 11.076 In Sodium Chloride 0.9% 100 ml @ Per Protocol IV .Q0M [facility] Rx#:[id number] Output: Urine 570 515 140 Stool 800 800 Other: Voiding Method Indwelling Catheter Indwelling Catheter ABP, PAP, CO, CI - Last Documented Arterial Blood Pressure 145/58 - Labs CBC & Chem 7: 11/08/19 05:16 11/08/19 05:16 Labs: Abnormal Lab Results - Last 24 Hours (Table) 11/07/19 11/07/19 11/07/19 Range/Units 11:25 13:35 14:58 WBC (3.8-10.6) k/uL RBC (4.30-5.90) m/uL Hgb (13.0-17.5) gm/dL Hct (39.0-53.0) % MCV (80.0-100.0) fL MCHC (31.0-37.0) g/dL Plt Count (150-450) k/uL Neutrophils # (1.3-7.7) k/uL Chloride (98-107) mmol/L Carbon Dioxide (22-30) mmol/L Glucose (74-99) mg/dL POC Glucose (mg/dL) 167 H 139 H 135 H (75-99) mg/dL Calcium (8.4-10.2) mg/dL 11/07/19 11/07/19 11/07/19 Range/Units 16:33 18:04 21:52 WBC (3.8-10.6) k/uL RBC (4.30-5.90) m/uL Hgb (13.0-17.5) gm/dL Hct (39.0-53.0) % MCV (80.0-100.0) fL MCHC (31.0-37.0) g/dL Plt Count (150-450) k/uL Neutrophils # (1.3-7.7) k/uL Chloride (98-107) mmol/L Carbon Dioxide (22-30) mmol/L Glucose (74-99) mg/dL POC Glucose (mg/dL) 116 H 116 H 155 H (75-99) mg/dL Calcium (8.4-10.2) mg/dL 11/07/19 11/08/19 11/08/19 Range/Units 23:23 01:59 03:29 WBC (3.8-10.6) k/uL RBC (4.30-5.90) m/uL Hgb (13.0-17.5) gm/dL Hct (39.0-53.0) % MCV (80.0-100.0) fL MCHC (31.0-37.0) g/dL Plt Count (150-450) k/uL Neutrophils # (1.3-7.7) k/uL Chloride (98-107) mmol/L Carbon Dioxide (22-30) mmol/L Glucose (74-99) mg/dL POC Glucose (mg/dL) 177 H 121 H 133 H (75-99) mg/dL Calcium (8.4-10.2) mg/dL 11/08/19 11/08/19 11/08/19 Range/Units 05:07 05:16 05:16 WBC 13.3 H (3.8-10.6) k/uL RBC 2.63 L (4.30-5.90) m/uL Hgb 8.3 L (13.0-17.5) gm/dL Hct 27.3 L (39.0-53.0) % MCV 104.0 H (80.0-100.0) fL MCHC 30.5 L (31.0-37.0) g/dL Plt Count 910 H (150-450) k/uL Neutrophils # 11.0 H (1.3-7.7) k/uL Chloride 110 H (98-107) mmol/L Carbon Dioxide 20 L (22-30) mmol/L Glucose 181 H (74-99) mg/dL POC Glucose (mg/dL) 200 H (75-99) mg/dL Calcium 7.6 L (8.4-10.2) mg/dL 11/08/19 11/08/19 11/08/19 Range/Units 07:06 08:11 09:21 WBC (3.8-10.6) k/uL RBC (4.30-5.90) m/uL Hgb (13.0-17.5) gm/dL Hct (39.0-53.0) % MCV (80.0-100.0) fL MCHC (31.0-37.0) g/dL Plt Count (150-450) k/uL Neutrophils # (1.3-7.7) k/uL Chloride (98-107) mmol/L Carbon Dioxide (22-30) mmol/L Glucose (74-99) mg/dL POC Glucose (mg/dL) 197 H 175 H 213 H (75-99) mg/dL Calcium (8.4-10.2) mg/dL 11/08/19 Range/Units 10:13 WBC (3.8-10.6) k/uL RBC (4.30-5.90) m/uL Hgb (13.0-17.5) gm/dL Hct (39.0-53.0) % MCV (80.0-100.0) fL MCHC (31.0-37.0) g/dL Plt Count (150-450) k/uL Neutrophils # (1.3-7.7) k/uL Chloride (98-107) mmol/L Carbon Dioxide (22-30) mmol/L Glucose (74-99) mg/dL POC Glucose (mg/dL) 189 H (75-99) mg/dL Calcium (8.4-10.2) mg/dL Microbiology - Last 24 Hours (Table) 11/05/19 10:30 Stool Culture - Final Stool Layne albicans 11/04/19 20:24 Blood Culture - Preliminary Blood No Growth after 72 hours 11/05/19 12:50 Catheter Tip Culture - Final Catheter Tip 11/05/19 12:50 Catheter Tip Culture - Final Catheter Tip 11/07/19 04:21 Gram Stain - Preliminary Sputum Assessment and Plan (1) Hyponatremia Current Visit: Yes Status: Acute Code(s): E87.1 - HYPO-OSMOLALITY AND HYPONATREMIA SNOMED Code(s): 53412954 (2) Hyperkalemia Current Visit: Yes Status: Acute Code(s): E87.5 - HYPERKALEMIA SNOMED Code(s): 25138420 (3) Sigmoid diverticulitis Current Visit: Yes Status: Acute Code(s): K57.32 - DVTRCLI OF LG INT W/O PERFORATION OR ABSCESS W/O BLEEDING SNOMED Code(s): 563608840 (4) Dynamic ileus Current Visit: Yes Status: Acute Code(s): K56.7 - ILEUS, UNSPECIFIED SNOMED Code(s): 70471914 (5) Hyperosmolar syndrome Current Visit: Yes Status: Acute Code(s): E87.0 - HYPEROSMOLALITY AND HYPERNATREMIA SNOMED Code(s): 54001406 (6) Hyperosmolarity due to secondary diabetes mellitus Current Visit: Yes Status: Acute Code(s): E13.00 - OTH DIAB W HYPROSM W/O NONKET HYPRGLY-HYPROS COMA ([facility]) SNOMED Code(s): 25914895 (7) Altered mental state Current Visit: No Status: Acute Code(s): R41.82 - ALTERED MENTAL STATUS, UNSPECIFIED SNOMED Code(s): 135601606 (8) Dementia Current Visit: No Status: Acute Code(s): F03.90 - UNSPECIFIED DEMENTIA WITHOUT BEHAVIORAL DISTURBANCE SNOMED Code(s): 43033805 (9) Renal insufficiency syndrome Current Visit: No Status: Acute Code(s): N28.9 - DISORDER OF KIDNEY AND URETER, UNSPECIFIED SNOMED Code(s): 899138402 (10) Shock liver Current Visit: Yes Status: Acute Code(s): K72.00 - ACUTE AND SUBACUTE HEPATIC FAILURE WITHOUT COMA SNOMED Code(s): 690922389 (11) Sepsis Current Visit: Yes Status: Acute Code(s): A41.9 - SEPSIS, UNSPECIFIED ORGANISM SNOMED Code(s): 17380435
[2019-11-06] MEDS: HYDROmorphone 0.5 MG/0.5 ML SYRINGE IVP PRN (14:13)
[2019-11-06 14:20] LABS: Glucose,Whole Blood 180 mg/dL (75-99)
[2019-11-06 16:35] LABS: Glucose,Whole Blood 190 mg/dL (75-99)
[2019-11-06] MEDS: INSULIN REGULAR 100 UNIT in SODIUM CHLORIDE 0.9% 100 ML IV SCH (16:43)
--- NOTE | 2019-11-06 17:15 | P.PN ---
Progress Note - Text Progress Note Date: 11/06/19 Interval history: 79-year-old male with PMH of diabetes mellitus on oral hypoglycemics, con pascual presents the ED for altered mentation. Apparently, patient was visited by his nurse who noted an extremely high blood glucose which prompted his hospital visit. Patient is altered and he is unable to provide any meaningful history. Majority of documentation was obtained from chart review and discussion with his son. Apparently, patient has been confused and disoriented which is progressive ly been worsening over the past 2 weeks. His son reports that the patient fell a week ago and did not seek medical attention. Patient lives with his who is suffering from advanced Alzheimer's dementia and is currently in hospice. According to the son, patient drinks 4 L of soda on a daily basis. Son reports that patient is noncompliant with her diabetic diet. In the ED, vital signs showed a T low of 97.5 Fahrenheit, pulse of 102, tachypnea with respiratory rate of 28, BP of 85/49 and 89% on room air. CBC showed leukocytosis of 11 and MCV of 124.1. ABG showed pH of 7, pCO2 19, bica rbonate of 8. CMP showed sodium of 116, potassium of 5.7, chloride of 74, bicarbonate of 8, BUN 33, creatinine 2.18, glucose greater than 1875. Troponin was 0.881 with EKG showing sinus tachycardia. Urinalysis shows 4+ glucose and trace blood. Acetone was negative. CT brain was negative for hemorrhage but showed slightly hyperdense left MCA compared to right. Chest x-ray showed possible right lower lobe infiltrate. Patient is admitted to ICU for sepsis, troponin elevation and diabetic ketoacidosis. Intubated. Patient developed ischemic hepatitis. Sepsis. Also developed bowel obstruction-that corrected on its own. Seen by neurology. Patient's felt to have anoxic brain injury. Patient was extubated on November 01 today-ICU. Patient is slender. Has NG tube. Lethargic but arousable. Did communicate a bit with the nurse. Having significant amount of loose stools. Review of systems cannot be done as patient is barely speaking. Active Medications Acetaminophen (Tylenol Tab) 650 mg PO Q6HR PRN PRN Reason: Fever and/ or Pain Last Admin: 11/06/19 06:19 Dose: 650 mg Documented by: Amiodarone HCl (Cordarone) 200 mg PO BID [facility] Last Admin: 11/06/19 10:45 Dose: 200 mg Documented by: Aspirin (Aspirin) 81 mg PO DAILY [facility] Last Admin: 11/06/19 10:45 Dose: 81 mg Documented by: Heparin Sodium (Porcine) (Heparin) 5,000 unit SQ Q8HR [facility] Last Admin: 11/06/19 16:43 Dose: 5,000 unit Documented by: Hydromorphone HCl (Dilaudid) 0.5 mg IVP Q2HR PRN PRN Reason: Pain Last Admin: 11/06/19 14:13 Dose: 0.5 mg Documented by: Insulin Human Regular 100 unit (/ Sodium Chloride) 101 mls @ 0 mls/hr IV .Q0M [facility]; Protocol Last Admin: 11/06/19 16:43 Dose: 7 unit/hr, 7.07 mls/hr Documented by: Sodium Chloride (Saline 0.9%) 500 mls @ 10 mls/hr IV .Q24H [facility] Last Admin: 11/06/19 10:46 Dose: Not Given Documented by: Dextrose/Water (Dextrose 5%-Water Iv Soln) 1,000 mls @ 75 mls/hr IV .[id number] [facility] Last Admin: 11/06/19 10:55 Dose: 75 mls/hr Documented by: Lisinopril (Zestril) 2.5 mg PO DAILY [facility] Last Admin: 11/06/19 12:08 Dose: Not Given Documented by: Metoprolol Tartrate (Lopressor) 12.5 mg PO BID [facility] Last Admin: 11/06/19 10:45 Dose: 12.5 mg Documented by: Miscellaneous Information (Pneumonia Protocol Utilized) 1 each PO ONCE PRN PRN Reason: Per Protocol Miscellaneous Information (Magnesium Per Protocol) 1 each MISCELLANE DAILY PRN; Protocol PRN Reason: Per Protocol Miscellaneous Information (Phosphorus Per Protocol) 1 each MISCELLANE DAILY PRN; Protocol PRN Reason: Per Protocol Miscellaneous Information (Potassium Per Protocol) 1 each MISCELLANE DAILY PRN; Protocol PRN Reason: Per Protocol Naloxone HCl (Narcan) 0.2 mg IV Q2M PRN PRN Reason: Opioid Reversal Nystatin (Mycostatin Oral Susp) 500,000 unit PO QID [facility] Last Admin: 11/06/19 14:13 Dose: 500,000 unit Documented by: Pantoprazole Sodium (Protonix) 40 mg IV DAILY [facility] Last Admin: 11/06/19 10:41 Dose: 40 mg Documented by: On examination: VITAL SIGNS: 99.2, 85, 25, 103/46 96% on 2 L GENERAL APPEARANCE: laying in bed, lethargic, arousable HEENT: Normal external appearance of nose and ear. Oral cavity -endotracheal tube, NG tube to suction EYES: Pupils equal. Conjunctiva normal. NECK: JVD unable to assess. Mass not palpable. RESPIRATORY: Respiratory effort increased. Lungs -decreased breath sounds CARDIOVASCULAR: First and second sounds normal. No edema. ABDOMEN: Soft. Liver and spleen not palpable. No tenderness. No mass palpable. PSYCHIATRY: unable to assess, patient lethargic NEUROLOGICAL: Patient does open his eyes. Does attempt to talk. INVESTIGATIONS, reviewed in the clinical context: White count 13 hemoglobin 8.6 platelets 87 potassium 4.1 creatinine 0.94 Previous testing: White count 11 hemoglobin 13.7 platelets 383 Sodium 116, bicarb 8, bun 33, creatinine 2.18 glucose 1875 troponin I 0.88 1 Rusty-19 PCR-not detected computed tomography scan of the brain without contrast-no acute degenerative changes Ultrasound kidney-limited exam 2-D echocardiogram-EF 30-35%, anteroseptal apical hypokinesia AST 3453, ALT 1264, computed tomography scan of the abdomen and pelvis without contrast-dilated mul tiple loops of small bowel some free fluid in the paracolic gutter bilateral lower lobe pulmonary infiltrates, fusiform 4.4 cm lower abdominal aortic aneurysm with aortoiliac endograft multiple diverticula of the sigmoid colon. Mild wall thickening of the ascending colon. Blood cultures from October 20-negative Abdominal x-ray-October 25--contrast has passed through to thecolon EEG suggestive of encephalopathy, computed tomography scan of the brain-on October 28-chronic changes Assessment: -acute nonketotic hyperosmolar diabetes with severe hyperglycemia, POA -Acute small bowel obstruction, and distal jejunal clinically improved, NG tube suction discontinued.- tube feeding started -Acute hypoxic respiratory failure requiring mechanical ventilator extubated on November 01 -Acute metabolic encephalopathy from improving slowly -Alzheimer's dementia -Pseudohyponatremia from severe hyperglycemia -4.4 cm distal abdominal aortic aneurysm with the endoluminal stent graft -Peripheral arterial disease -Acute shock liver secondary to hypotensive-corrected -Chronic congestive heart failure from systolic dysfunction EF 30-35% -Sepsis with septic shock, possible community acquired pneumonia -Metabolic encephalopathy likely due to the above -Non-ST elevation IA likely type II from demand ischemia, POA -Acute kidney injury likely corrected -Possibly chronic kidney disease -essential hypertension -Pneumonia suspect gram-negative organism -New onset atrial fibrillation. -Anoxic brain injury-slow improvement -Stage II pressure ulcer on the coccyx -Severe diarrhea-negative for C. diff Plan: Patient currently on by mouth amiodarone, D5W IV fluids, Zestril, Lopressor,. 2 feeding has been held because of the diarrhea. We'll add Metamucil. To control the diarrhea.
[2019-11-06 17:25] LABS: Glucose,Whole Blood 164 mg/dL (75-99)
[2019-11-06] MEDS: PSYLLIUM HUSK 100% 6 GM PACKET PO SCH ×2 (17:36→21:46)
[2019-11-06 19:05] LABS: Glucose,Whole Blood 127 mg/dL (75-99)
[2019-11-06 20:00] LABS: Glucose,Whole Blood 140 mg/dL (75-99)
--- NOTE | 2019-11-06 20:12 | CONS ---
CONSULTATION DATE OF DICTATION: 11/06/2019 REASON FOR CONSULTATION: Severe diarrhea for the last 3 days' duration. HISTORY OF PRESENT ILLNESS: The patient is an 79-year-old white male admitted to the hospital with severe hypovolemic shock, subsequently diagnosed with small-bowel obstruction as well as right lower lobe pneumonia. He has been in the intensive care unit for the last one week's duration. He was just extubated about 3 or 4 days ago. We are consulted for severe diarrhea for the last 3-4 days. The patient apparently had an NG tube in place because of small bowel obstruction and about 3 days ago the obstruction resolved; and since then he started having profuse diarrhea. He had an NG tube with tube feeds that were started about 3 days ago when he started having diarrhea with at least 1600 mL of loose watery bowel movements. He had C difficile toxin done on 3 different occasions that were negative. Stool cultures were negative. Because of the persistent diarrhea, we are consulted in regards to this issue. As per the nursing staff, the oral feeds have been held for suspicion for osmotic induced diarrhea, and since this morning he only had about 100 mL in the bag. The patient complains of mild abdominal pain. He reports no nausea, vomiting. He never had diarrhea in the past. He continues to have a low-grade fever, and Pulmonary is following the patient closely. His T-max was 100.6 last night. He remains on Flagyl and Zosyn. All cultures so far have been negative. He did have pneumonia at the time of admission to the hospital. Abdominal x-ray today showed prominent gas and distended small bowel loops consistent with mild ileus. PAST MEDICAL HISTORY: Diabetes mellitus, hypertension, hyperlipidemia, degenerative joint disease, rheumatoid arthritis, deafness. PAST SURGICAL HISTORY: Adenoidectomy, tonsillectomy, left hip replacement, left knee replacement. SOCIAL HISTORY: Former smoker. No alcohol use. FAMILY HISTORY: Family history could not be obtained. MEDICATIONS: Medications at home include Cymbalta, Lyrica, metformin, vitamin D3, Zestoretic, Flomax, Ambien. ALLERGIES: AMOXICILLIN and MORPHINE. REVIEW OF SYSTEMS: The patient is a very poor historian, and hence review of systems could not be obtained, but he denied any chest pain or shortness of breath. He does complain of some abdominal pain. NEUROLOGY: Unremarkable. ENT: Deafness. CONSTITUTIONAL: Weight loss. No fever, chills, night sweats. PHYSICAL EXAMINATION: He appears comfortable. No apparent distress. VITAL SIGNS: Stable. Blood pressure is 112/49, pulse rate 80, temperature 99.7. HEENT examination unremarkable. Conjunctivae pink. Sclerae anicteric. Oral cavity no lesions. NECK: No JVD or lymph node enlargement. CHEST: Clear to auscultation. HEART: Regular rate and rhythm. ABDOMEN: Soft. There was mild diffuse tenderness noted. It was slightly distended. EXTREMITIES: No pedal edema. SKIN: No rashes. NEUROLOGIC: Alert and oriented x3. No focal deficits. LABS: Labs from today show WBC 13, hemoglobin 8.6, platelets 887. Basic metabolic panel shows BUN 22, creatinine 0.94. Sodium 145, potassium 4.1, chloride 117, CO2 20. C difficile toxin yesterday was negative. Stool occult blood was positive. IMPRESSION: 1. Severe acute diarrhea for the last 4 days' duration. Patient has been having at least 1.5 to 1.6 L of stool output every day which is loose to watery in consistency. Stool C difficile toxin done on 2 different occasions was negative. Stool cultures were also negative. The patient started having diarrhea only for the last days and hence it is very likely that we are dealing with osmotic induced diarrhea or medication-induced diarrhea. As per the nursing staff, the diarrhea started after the tube feeds were initiated about 4 days ago. The tube feeds have been on hold since early this morning and the diarrhea has significantly decreased. There was only 100 mL so far since morning. Causes of osmotic diarrhea/ diarrhea need to be considered; also medication. 2. Small bowel obstruction with small bowel distention, resolving. Abdominal x-rays from today still show mild dilation of small bowel loops suggestive of ileus. 3. Sepsis. Remains on broad-spectrum antibiotics. He continues to have a low-grade fever on Flagyl and Zosyn. 4. Right lower lobe pneumonia, on antibiotics. 5. Acute kidney injury. 6. History of diabetes mellitus and hypertension and hyperlipidemia. RECOMMENDATIONS: 1. In regards to the diarrhea, will obtain stool electrolytes to calculate the osmotic gap and see if we are dealing with osmotic diarrhea. 2. Agree with holding off on the tube feeds for now and see how he does. 3. Will obtain stool for lactoferrin as well as calprotectin. 4. Continue with antibiotics. 5. If the stool studies are negative and if the small bowel obstruction is resolved, we can consider starting him on antimotility agents in the near future, in the next 1 or 2 days. At this time we will follow with you closely. Thank you for this consultation. PARK / SALVADOR: [id number] /
[2019-11-06 20:58] LABS: Glucose,Whole Blood 130 mg/dL (75-99)
[2019-11-06] MEDS: FAMOTIDINE 20 MG TAB PO SCH (21:35)
[2019-11-06 22:02] LABS: Glucose,Whole Blood 143 mg/dL (75-99)
[2019-11-06 23:13] LABS: Glucose,Whole Blood 114 mg/dL (75-99)
[2019-11-07 00:07] LABS: Glucose,Whole Blood 130 mg/dL (75-99)
[2019-11-07 01:11] LABS: Glucose,Whole Blood 159 mg/dL (75-99)
[2019-11-07] MEDS: HEPARIN SODIUM,PORCINE 5,000 UNIT/ML 1 ML VIAL SQ SCH ×4 (01:11→23:43)
[2019-11-07 03:13] LABS: Glucose,Whole Blood 139 mg/dL (75-99)
[2019-11-07 04:31] LABS: Glucose,Whole Blood 151 mg/dL (75-99)
[2019-11-07 05:09] LABS: Glucose,Whole Blood 139 mg/dL (75-99)
[2019-11-07 05:43] LABS: Basophils # (A) 0.1 k/uL (0-0.2); Basophils % (A) 1 %; Eosinophils # (A) 0.2 k/uL (0-0.7); Eosinophils % (A) 1 %; HCT 26.6 % (39.0-53.0); Hypochromasia Moderate; Lymphocytes # (A) 1.5 k/uL (1.0-4.8); Lymphocytes % (A) 13 %; MCH 30.8 pg (25.0-35.0); MCHC 30.1 g/dL (31.0-37.0); MCV 102.1 fL (80.0-100.0); Macrocytosis Slight; Monocytes # (A) 0.6 k/uL (0-1.0); Monocytes % (A) 6 %; Neutrophils # (A) 8.7 k/uL (1.3-7.7); Neutrophils % (A) 78 %; Platelet Count 902 k/uL (150-450); Poikilocytosis Slight; RDW 15.4 % (11.5-15.5); WBC 11.2 k/uL (3.8-10.6)
[2019-11-07 06:04] LABS: African American GFR (CKD) >90 (>60 ml/min/1.73 sqM); Anion Gap 6 mmol/L; Blood Urea Nitrogen 17 mg/dL (9-20); Calcium 7.5 mg/dL (8.4-10.2); Carbon Dioxide 22 mmol/L (22-30); Chloride 110 mmol/L (98-107); Glucose 130 mg/dL (74-99); Magnesium 1.9 mg/dL (1.6-2.3); Non-African American GFR(CKD) 81 (>60 ml/min/1.73 sqM); Potassium 3.2 mmol/L (3.5-5.1); Sodium 138 mmol/L (137-145)
[2019-11-07 06:46] LABS: Glucose,Whole Blood 153 mg/dL (75-99)
--- NOTE | 2019-11-07 07:39 | XR ---
EXAMINATION TYPE: XR chest 1V DATE OF EXAM: 11/07/2019 COMPARISON: 11/06/2019 HISTORY: 79-year-old male pneumonia, shortness of breath TECHNIQUE: Single frontal view of the chest is obtained. FINDINGS: NG tube courses below the diaphragm. Heart normal size. Patchy bibasilar opacities persist without si gnificant change. Trace effusions difficult to exclude. IMPRESSION: Continued patchy bibasilar infiltrates. Possible underlying trace effusions.
[2019-11-07 08:18] LABS: Glucose,Whole Blood 178 mg/dL (75-99)
[2019-11-07] MEDS: MAGNESIUM SULFATE-D5W PMX 1 GM in DEXTROSE/WATER 1 100ML.BAG IVPB SCH ×2 (08:33→12:09)
[2019-11-07] MEDS: LISINOPRIL 2.5 MG TAB PO SCH (08:33)
[2019-11-07] MEDS: POTASSIUM BICARBONATE/CIT AC 20 MEQ TABLET.EFF NG-TUBE SCH ×2 (08:33→12:08)
[2019-11-07] MEDS: METOPROLOL TARTRATE 12.5 MG TAB PO SCH ×2 (08:33→20:20)
[2019-11-07] MEDS: FAMOTIDINE 20 MG TAB PO SCH ×2 (08:33→20:20)
[2019-11-07] MEDS: ASPIRIN 81 MG PO SCH (08:33)
[2019-11-07] MEDS: AMIODARONE 200 MG TAB PO SCH ×2 (08:33→20:21)
[2019-11-07] MEDS: PSYLLIUM HUSK 100% 6 GM PACKET PO SCH (08:33)
--- NOTE | 2019-11-07 08:45 | P.PN ---
Subjective Progress Note Date: 11/07/19 Principal diagnosis: cardiomyopathy This is an 79-year-old gentleman with extensive past medical history who was admitted to the hospital initially with intra-abdominal sepsis and small bowel obstruction and developed acute hypoxic respiratory failure. The patient was seen today, November 062019. Overall he seems to be stable. Hemodynamically he is stable. Since he wasn't started on metoprolol he has been maintaining normal sinus mechanism. Beside that he is on amiodarone by mouth. He is not on any anticoagulation in view of history of GI bleeding. From the cardiac vascular standpoint of view, the patient can be transferred out of the ICU. Objective - Vital Signs Vital signs: Vital Signs Temp 98.1 F 11/07/19 08:00 Pulse 90 11/07/19 08:00 Resp 28 H 11/07/19 08:00 BP 109/45 11/07/19 08:00 Pulse Ox 93 L 11/07/19 08:00 Intake & Output 11/06/19 11/07/19 11/07/19 18:59 06:59 18:59 Intake Total 1056.633 950.139 150 Output Total 2575 525 90 Balance -1518.367 425.139 60 Weight 83.5 kg Intake: IV 665 900 150 .9 Sodium Chloride @ 10ml 40 /hr Dextrose 5% in Water 1, 525 900 150 000 ml @ 75 mls/hr IV . [id number] [facility] Rx#:[id number] Magnesium Sulfate-D5w Pmx 100 1 gm In Dextrose/Water 1 100ml.bag @ 100 mls/hr IVPB Q1H [facility] Rx#: [id number] Intake, IV Titration 86.633 50.139 Amount Insulin Regular 100 unit 86.633 50.139 In Sodium Chloride 0.9% 100 ml @ Per Protocol IV .Q0M [facility] Rx#:[id number] Tube Feeding 105 Other 200 Output: Urine 2175 525 90 Stool 400 Other: Voiding Method Indwelling Catheter Indwelling Catheter Indwelling Catheter ABP, PAP, CO, CI - Last Documented Arterial Blood Pressure 145/58 - Constitutional General appearance: Present: no acute distress - Respiratory Respiratory: bilateral: CTA - Cardiovascular Rhythm: regular Heart sounds: normal: S1, S2 - Labs CBC & Chem 7: 11/07/19 05:04 11/07/19 05:04 Labs: Abnormal Lab Results - Last 24 Hours (Table) 11/06/19 11/06/19 11/06/19 Range/Units 08:54 11:03 12:12 WBC (3.8-10.6) k/uL RBC (4.30-5.90) m/uL Hgb (13.0-17.5) gm/dL Hct (39.0-53.0) % MCV (80.0-100.0) fL MCHC (31.0-37.0) g/dL Plt Count (150-450) k/uL Neutrophils # (1.3-7.7) k/uL Potassium (3.5-5.1) mmol/L Chloride (98-107) mmol/L Glucose (74-99) mg/dL POC Glucose (mg/dL) 192 H 153 H 184 H (75-99) mg/dL Calcium (8.4-10.2) mg/dL Stool Lactoferrin (NEGATIVE) 11/06/19 11/06/19 11/06/19 Range/Units 13:06 14:18 16:23 WBC (3.8-10.6) k/uL RBC (4.30-5.90) m/uL Hgb (13.0-17.5) gm/dL Hct (39.0-53.0) % MCV (80.0-100.0) fL MCHC (31.0-37.0) g/dL Plt Count (150-450) k/uL Neutrophils # (1.3-7.7) k/uL Potassium (3.5-5.1) mmol/L Chloride (98-107) mmol/L Glucose (74-99) mg/dL POC Glucose (mg/dL) 181 H 180 H 190 H (75-99) mg/dL Calcium (8.4-10.2) mg/dL Stool Lactoferrin (NEGATIVE) 11/06/19 11/06/19 11/06/19 Range/Units 17:03 17:23 19:03 WBC (3.8-10.6) k/uL RBC (4.30-5.90) m/uL Hgb (13.0-17.5) gm/dL Hct (39.0-53.0) % MCV (80.0-100.0) fL MCHC (31.0-37.0) g/dL Plt Count (150-450) k/uL Neutrophils # (1.3-7.7) k/uL Potassium (3.5-5.1) mmol/L Chloride (98-107) mmol/L Glucose (74-99) mg/dL POC Glucose (mg/dL) 164 H 127 H (75-99) mg/dL Calcium (8.4-10.2) mg/dL Stool Lactoferrin POSITIVE H (NEGATIVE) 11/06/19 11/06/19 11/06/19 Range/Units 19:58 20:56 22:00 WBC (3.8-10.6) k/uL RBC (4.30-5.90) m/uL Hgb (13.0-17.5) gm/dL Hct (39.0-53.0) % MCV (80.0-100.0) fL MCHC (31.0-37.0) g/dL Plt Count (150-450) k/uL Neutrophils # (1.3-7.7) k/uL Potassium (3.5-5.1) mmol/L Chloride (98-107) mmol/L Glucose (74-99) mg/dL POC Glucose (mg/dL) 140 H 130 H 143 H (75-99) mg/dL Calcium (8.4-10.2) mg/dL Stool Lactoferrin (NEGATIVE) 11/06/19 11/07/19 11/07/19 Range/Units 23:11 00:06 01:10 WBC (3.8-10.6) k/uL RBC (4.30-5.90) m/uL Hgb (13.0-17.5) gm/dL Hct (39.0-53.0) % MCV (80.0-100.0) fL MCHC (31.0-37.0) g/dL Plt Count (150-450) k/uL Neutrophils # (1.3-7.7) k/uL Potassium (3.5-5.1) mmol/L Chloride (98-107) mmol/L Glucose (74-99) mg/dL POC Glucose (mg/dL) 114 H 130 H 159 H (75-99) mg/dL Calcium (8.4-10.2) mg/dL Stool Lactoferrin (NEGATIVE) 11/07/19 11/07/19 11/07/19 Range/Units 03:11 04:29 05:04 WBC 11.2 H (3.8-10.6) k/uL RBC 2.60 L (4.30-5.90) m/uL Hgb 8.0 L (13.0-17.5) gm/dL Hct 26.6 L (39.0-53.0) % MCV 102.1 H (80.0-100.0) fL MCHC 30.1 L (31.0-37.0) g/dL Plt Count 902 H (150-450) k/uL Neutrophils # 8.7 H (1.3-7.7) k/uL Potassium (3.5-5.1) mmol/L Chloride (98-107) mmol/L Glucose (74-99) mg/dL POC Glucose (mg/dL) 139 H 151 H (75-99) mg/dL Calcium (8.4-10.2) mg/dL Stool Lactoferrin (NEGATIVE) 11/07/19 11/07/19 11/07/19 Range/Units 05:04 05:08 06:45 WBC (3.8-10.6) k/uL RBC (4.30-5.90) m/uL Hgb (13.0-17.5) gm/dL Hct (39.0-53.0) % MCV (80.0-100.0) fL MCHC (31.0-37.0) g/dL Plt Count (150-450) k/uL Neutrophils # (1.3-7.7) k/uL Potassium 3.2 L (3.5-5.1) mmol/L Chloride 110 H (98-107) mmol/L Glucose 130 H (74-99) mg/dL POC Glucose (mg/dL) 139 H 153 H (75-99) mg/dL Calcium 7.5 L (8.4-10.2) mg/dL Stool Lactoferrin (NEGATIVE) 11/07/19 Range/Units 08:16 WBC (3.8-10.6) k/uL RBC (4.30-5.90) m/uL Hgb (13.0-17.5) gm/dL Hct (39.0-53.0) % MCV (80.0-100.0) fL MCHC (31.0-37.0) g/dL Plt Count (150-450) k/uL Neutrophils # (1.3-7.7) k/uL Potassium (3.5-5.1) mmol/L Chloride (98-107) mmol/L Glucose (74-99) mg/dL POC Glucose (mg/dL) 178 H (75-99) mg/dL Calcium (8.4-10.2) mg/dL Stool Lactoferrin (NEGATIVE) Microbiology - Last 24 Hours (Table) 11/04/19 15:56 Urine Culture - Final Urine,Catheterized [place] albicans 11/04/19 20:24 Blood Culture - Preliminary Blood No Growth after 48 hours 11/05/19 12:50 Catheter Tip Culture - Preliminary Catheter Tip 11/05/19 12:50 Catheter Tip Culture - Preliminary Catheter Tip Assessment and Plan Assessment: assessment #1 acute hypoxic respiratory failure which has improved #2 paroxysmal atrial fibrillation #3 severe cardiomyopathy #4 peripheral arterial disease #5 multiple comorbid conditions Plan #1 continue the current medical regimen including the current dose of amiodarone #2 follow-up with the patient
--- NOTE | 2019-11-07 10:24 | P.PN ---
Subjective Progress Note Date: 11/07/19 Principal diagnosis: hypovolemic shock, small bowel ileus/obstruction, right lower lobe pneumonia on 11/04/2019 patient is seen in follow-up in the intensive care unit. Patient was successfully weaned and extubated from the mechanical ventilator yesterday on 11/03/2019, this morning patient is on 5 L per nasal cannula his pulse ox is 92-95%. he is awake, his speech is difficult to understand, as he is following basic commands, he is able to squeeze hands on command and wiggle his toes. his been having low-grade fevers, his T-max in the last 24 hours was 100.2F. remains on a combination of Diflucan, Flagyl and Zosyn. microbiology data reviewed, and all his cultures are negative except for Layne albicans in the sputum. Abdomen is nontender, patient has NG tube in place with tube feeds infusing with the formula vital a half at a rate of 70 with a goal of 70. IV fl uids include 0.9 normal saline at a rate of 10, insulin drip at 5.5 units per hour. No other drips. Lung sounds are positive for diffuse rhonchi bilaterally. Patient is also audibly congested, and his mucous membranes are extremely dry with bleeding from his mouth. family symptoms or has been reviewed showing increased bibasilar densities. patient remains in atrial fibrillation with a controlled rate at 95 BPM. Hemodynamically patient is stable. today's labs have been reviewed showing white blood cell count of 11.2, hemoglobin of 7.8, sodium is 141, potassium is 3.4, chloride is 117, CO2 is 19, B1 is 22, creatinine 0.99. generally patient is extremely weak, consult physical therapy. On 11/05/2019 patient seen in follow-up in the intensive care unit. He is awake, following commands, however his orientation is difficult to assess related to his extremely garbled speech. appears to be in no acute distress, he was successfully weaned and extubated on 11/03/2019. Currently oon 4 L of oxygen his pulse ox is 96-99%, still running a low-grade fevers, T-max in the last 24 hours is 100.6F, culture data has been reviewed, blood, sputum, and urine cultures are negative. Remains on fluconazole and Zosyn for antibiotic coverage. He is receiving tube feedings, with the formula of vital AF at a rate of 70, with a goal of 70. Receiving free water flushes 200 ML every 4 hours. IV fluids infusing at a rate of 20 ml/hr, insulin infusion is at 5.5 units per hour. Yesterday we administered 1 dose of IV Lasix, patient produced 3.8 liters in urine output in addition to 2.5 L in liquid diarrhea. Stool for C. diff was negative. today's chest x-ray has been reviewed with Dr. Garcia, showing stable findings, persistent low lung volumes and central vascular congestion with patchy bibasilar Infiltrates and/or atelectasis. today's labs have been reviewed showing white blood cell count of 12.7, hemoglobin of 7.9, sodium is 141, potassium is 3.2, chloride is 117, CO2 is 20, B1 is 24 creatinine is 1.01. Patient abdomen is slightly more distended but soft, and nontender. Lung sounds reveal diffuse rhonchi On 11/06/2019 patient seen in follow-up in the intensive care. Patient is awake, confused, but following basic commands, appears to be in no acute distress. he currently on 2 L of oxygen his pulse ox is 97%, sounds much is congested on today's exam, with only scattered rhonchi bilaterally. Stable oxygenation on 2 L of oxygen. Remains nothing by mouth, he has an NG tube in place, with tube feedings infusing in the form of vital a cuff at a rate of 70, and with a goal of 70 with free water flushes. patient is still having large volume diarrhea, C. diff was negative, stool was sent for cultures, however diarrhea volume seems to have improved somewhat, and patient produced 1.6 L in liquid diarrhea over the last 24 hours, continues to have adequate urine output, he produced over 3 L in urine output in the last 24 hours. Yesterday we discontinued his Artline and subclavian triple-lumen catheter, and catheter tips were sent for culture.patient still has a low-grade fevers, and the last 24 hours his T-max was 100.6F. Low-grade fever with a temp of 99.1F this morning. patient has received 14 days of Flagyl and 15 days of Zosyn. all culture data remains negative to date. today's chest x-ray has been reviewed showing interval removal of the left subclavian central venous catheter and right basilar probable atelectasis. patient had a KUB of the abdomen which showed prominent gas and distended small bowel loops in the mid to lower abdomen the possibility of persistent mid to distal small bowel obstruction without interval resolution.surgical services are following. On 11/07/2019 patient seen in follow-up in the intensive care unit. Remains confused, but he is awake, alert, following basic commands. Appears to be in no acute distress, speech is less garbled today, and is actually understandable. Appears to be in no acute respiratory distress, breathing is comfortable, is on 2 L of oxygen and the pulse ox of 93%, his fever pattern seems to have improved, did have some low-grade fevers with the T-max of 99.7F overnight, afebrile this morning. His left subclavian triple-lumen and arterial line had been discontinued, catheter tips were sent for cultures, are showing no growth, stool culture is pending, but the patient's enteral feedings on hold for 24 hours, and his diarrhea has significantly improved suggesting osmotic diarrhea. Patient only had 400 mL of liquid diarrhea in last 24 hours, urine output is adequate, patient made 2.7 L in urine output in last 24 hours. Currently on IV D5W at a rate of 75 ML per hour, and insulin drip is up 4.5 units per hour, no other drips. Lung sounds are diminished, no rhonchi, there is some audible congestion in the upper airways which seems to have significantly improved. Abdomen is slightly distended but nontender, and soft. It is labs have been reviewed, showing white blood cell count of 11.2, hemoglobin of 8.0, sodium is 138, potassium is 3.2, chloride is 110, CO2 is 22, BUN is 17 and creatinine 0.88. Objective - Vital Signs Vital signs: Vital Signs Temp 98.1 F 11/07/19 08:00 Pulse 90 11/07/19 08:00 Resp 28 H 11/07/19 08:00 BP 109/45 11/07/19 08:00 Pulse Ox 93 L 11/07/19 08:00 Intake & Output 11/06/19 11/07/19 11/07/19 18:59 06:59 18:59 Intake Total 1056.633 950.139 150 Output Total 2575 525 90 Balance -1518.367 425.139 60 Weight 83.5 kg Intake: IV 665 900 150 .9 Sodium Chloride @ 10ml 40 /hr Dextrose 5% in Water 1, 525 900 150 000 ml @ 75 mls/hr IV . [id number] [facility] Rx#:[id number] Magnesium Sulfate-D5w Pmx 100 1 gm In Dextrose/Water 1 100ml.bag @ 100 mls/hr IVPB Q1H [facility] Rx#: [id number] Intake, IV Titration 86.633 50.139 Amount Insulin Regular 100 unit 86.633 50.139 In Sodium Chloride 0.9% 100 ml @ Per Protocol IV .Q0M [facility] Rx#:[id number] Tube Feeding 105 Other 200 Output: Urine 2175 525 90 Stool 400 Other: Voiding Method Indwelling Catheter Indwelling Catheter Indwelling Catheter ABP, PAP, CO, CI - Last Documented Arterial Blood Pressure 145/58 - Exam GENERAL EXAM: Alert, 79-year-old white male, on 2 L of oxygen with a pulse ox of 97%, with NG tube in place and tube feedings are currently on hold, patient speech is less mumbled and garbled, and is actually understandable on today's exam, but follows basic commands HEAD: Normocephalic/atraumatic. EYES: Normal reaction of pupils, equal size. Conjunctiva pink, sclera white. NOSE: Clear with pink turbinates. THROAT: No erythema or exudates. NECK: No masses, no JVD, no thyroid enlargement, no adenopathy. CHEST: No chest wall deformity. Symmetrical expansion. LUNGS: Equal air entry with no crackles, wheeze, rhonchi or dullness. CVS: Irregular rate and rhythm, normal S1 and S2, no gallops, no murmurs, no rubs ABDOMEN: Soft, nontender, slightly more distended on today's exam, but nontender No hepatosplenomegaly, normal bowel sounds, no guarding or rigidity. EXTREMITIES: No clubbing, 1+ edema in upper extremities, mild pretibial edema, no cyanosis, 2+ pulses and upper and lower extremities. MUSCULOSKELETAL: Muscle strength and tone normal. SPINE: No scoliosis or deformity SKIN: No rashes CENTRAL NERVOUS SYSTEM: patient is alert, confused. No focal deficits, tone is normal in all 4 extremities. - Labs CBC & Chem 7: 11/07/19 05:04 11/07/19 05:04 Labs: Abnormal Lab Results - Last 24 Hours (Table) 11/06/19 11/06/19 11/06/19 Range/Units 11:03 12:12 13:06 WBC (3.8-10.6) k/uL RBC (4.30-5.90) m/uL Hgb (13.0-17.5) gm/dL Hct (39.0-53.0) % MCV (80.0-100.0) fL MCHC (31.0-37.0) g/dL Plt Count (150-450) k/uL Neutrophils # (1.3-7.7) k/uL Potassium (3.5-5.1) mmol/L Chloride (98-107) mmol/L Glucose (74-99) mg/dL POC Glucose (mg/dL) 153 H 184 H 181 H (75-99) mg/dL Calcium (8.4-10.2) mg/dL Stool Lactoferrin (NEGATIVE) 11/06/19 11/06/19 11/06/19 Range/Units 14:18 16:23 17:03 WBC (3.8-10.6) k/uL RBC (4.30-5.90) m/uL Hgb (13.0-17.5) gm/dL Hct (39.0-53.0) % MCV (80.0-100.0) fL MCHC (31.0-37.0) g/dL Plt Count (150-450) k/uL Neutrophils # (1.3-7.7) k/uL Potassium (3.5-5.1) mmol/L Chloride (98-107) mmol/L Glucose (74-99) mg/dL POC Glucose (mg/dL) 180 H 190 H (75-99) mg/dL Calcium (8.4-10.2) mg/dL Stool Lactoferrin POSITIVE H (NEGATIVE) 11/06/19 11/06/19 11/06/19 Range/Units 17:23 19:03 19:58 WBC (3.8-10.6) k/uL RBC (4.30-5.90) m/uL Hgb (13.0-17.5) gm/dL Hct (39.0-53.0) % MCV (80.0-100.0) fL MCHC (31.0-37.0) g/dL Plt Count (150-450) k/uL Neutrophils # (1.3-7.7) k/uL Potassium (3.5-5.1) mmol/L Chloride (98-107) mmol/L Glucose (74-99) mg/dL POC Glucose (mg/dL) 164 H 127 H 140 H (75-99) mg/dL Calcium (8.4-10.2) mg/dL Stool Lactoferrin (NEGATIVE) 11/06/19 11/06/19 11/06/19 Range/Units 20:56 22:00 23:11 WBC (3.8-10.6) k/uL RBC (4.30-5.90) m/uL Hgb (13.0-17.5) gm/dL Hct (39.0-53.0) % MCV (80.0-100.0) fL MCHC (31.0-37.0) g/dL Plt Count (150-450) k/uL Neutrophils # (1.3-7.7) k/uL Potassium (3.5-5.1) mmol/L Chloride (98-107) mmol/L Glucose (74-99) mg/dL POC Glucose (mg/dL) 130 H 143 H 114 H (75-99) mg/dL Calcium (8.4-10.2) mg/dL Stool Lactoferrin (NEGATIVE) 11/07/19 11/07/19 11/07/19 Range/Units 00:06 01:10 03:11 WBC (3.8-10.6) k/uL RBC (4.30-5.90) m/uL Hgb (13.0-17.5) gm/dL Hct (39.0-53.0) % MCV (80.0-100.0) fL MCHC (31.0-37.0) g/dL Plt Count (150-450) k/uL Neutrophils # (1.3-7.7) k/uL Potassium (3.5-5.1) mmol/L Chloride (98-107) mmol/L Glucose (74-99) mg/dL POC Glucose (mg/dL) 130 H 159 H 139 H (75-99) mg/dL Calcium (8.4-10.2) mg/dL Stool Lactoferrin (NEGATIVE) 11/07/19 11/07/19 11/07/19 Range/Units 04:29 05:04 05:04 WBC 11.2 H (3.8-10.6) k/uL RBC 2.60 L (4.30-5.90) m/uL Hgb 8.0 L (13.0-17.5) gm/dL Hct 26.6 L (39.0-53.0) % MCV 102.1 H (80.0-100.0) fL MCHC 30.1 L (31.0-37.0) g/dL Plt Count 902 H (150-450) k/uL Neutrophils # 8.7 H (1.3-7.7) k/uL Potassium 3.2 L (3.5-5.1) mmol/L Chloride 110 H (98-107) mmol/L Glucose 130 H (74-99) mg/dL POC Glucose (mg/dL) 151 H (75-99) mg/dL Calcium 7.5 L (8.4-10.2) mg/dL Stool Lactoferrin (NEGATIVE) 11/07/19 11/07/19 11/07/19 Range/Units 05:08 06:45 08:16 WBC (3.8-10.6) k/uL RBC (4.30-5.90) m/uL Hgb (13.0-17.5) gm/dL Hct (39.0-53.0) % MCV (80.0-100.0) fL MCHC (31.0-37.0) g/dL Plt Count (150-450) k/uL Neutrophils # (1.3-7.7) k/uL Potassium (3.5-5.1) mmol/L Chloride (98-107) mmol/L Glucose (74-99) mg/dL POC Glucose (mg/dL) 139 H 153 H 178 H (75-99) mg/dL Calcium (8.4-10.2) mg/dL Stool Lactoferrin (NEGATIVE) Microbiology - Last 24 Hours (Table) 11/04/19 15:56 Urine Culture - Final Urine,Catheterized Layne albicans 11/04/19 20:24 Blood Culture - Preliminary Blood No Growth after 48 hours 11/05/19 12:50 Catheter Tip Culture - Preliminary Catheter Tip 11/05/19 12:50 Catheter Tip Culture - Preliminary Catheter Tip Assessment and Plan Plan: #1. Acute hypoxic respiratory failure secondary to hypovolemic and septic shock, patient was intubated on 10/22/2019, and weaned and extubated on 11/04/2019 #2. Acute abdominal sepsis, small bowel ileus/obstruction, remains on Zosyn and Flagyl. Resolved. #3. Possible right lower lobe pneumonia, hospital-acquired or could be aspiration related, patient completed a course of Zosyn, Flagyl and did receive vancomycin, improved #4. Acute hyperosmolar nonketotic diabetic syndrome with profound hypovolemia and volume depletion/dehydration, improved #5. Acute kidney injury secondary to hypovolemia and possible septic shock with acute tubular necrosis. Resolved #6. Altered mental status on presentation secondary to hyperosmolar nonketotic state. Mental status is improved, although patient remains confused, but alert, and following basic commands #7. History of Alzheimer's dementia #8. Type 2 diabetes #9. Pseudohyponatremia on presentation secondary to severe hyperglycemia. Resolved #10. Benign essential hypertension #11. Peripheral vessel occlusive disease mostly involving lower extremities. #12. History of 4.6 cm distal abdominal aortic aneurysm and previous iliac stent the graft placement. #13. Acute shock liver secondary to hypotension on presentation. Improving. #14. History of ischemic cardiomyopathy and LV dysfunction, ejection fraction of 30%. #15. Severe lactic acidosis on presentation most likely secondary to abdominal sepsis and ischemic bowel, significantly improved #16. Coma, resolved #17. Large volume liquid diarrhea, C. diff negative #18. Possibility of persistent mid to distal small bowel obstruction seen on the KUB abdomen on 11/05/2019, surgical services are following. Plan: Continue current medical treatment, will obtain a swallow evaluation today for possibility of oral feedings, Maintain aspiration precautions. Vital signs are stable, hemodynamically stable, abiotic 7 discontinued, few pattern seems to be improving, culture dated remains negative to date. Abdomen is nontender, soft, diarrhea seems to have improved since the tube feedings have been held for 24 hours suggesting hyperosmolar diarrhea. No difficulty breathing, today's chest x-ray has been reviewed showing stable findings of patchy bibasilar infiltrates and trace pleural effusions. Encouraged her breathing and coughing, pulmonary toileting, physical therapy to increase activity as tolerated. We'll continue to monitor the patient in the intensive care unit. Patient is severely generally weak, will likely need ECF placement for rehabilitation after discharge. I performed a history & physical examination of the patient and discussed their management with my nurse practitioner, Roshni Francis. I reviewed the nurse practitioner's note and agree with the documented findings and plan of care. Lung sounds are positive for diffuse rhonchi throughout the lung flores. The findings and the impression was discussed with the patient. I attest to the documentation by the nurse practitioner. Time with Patient: Less than 30
--- NOTE | 2019-11-07 11:10 | P.PN ---
<Jodie Garcia Melvin - Last Filed: 11/07/19 11:08> Subjective Progress Note Date: 11/07/19 CHIEF COMPLAINT: Sepsis HISTORY OF PRESENT ILLNESS: Patient examined in the intensive care. He remains extubated. Tube feedings have been stopped for 24 hours. Diarrhea has improved. Patient denies abdominal pain during examination. He is more awake and alert today. Nursing reports patient had a repeat swallow evaluation this morning and failed. PHYSICAL EXAM: VITAL SIGNS: Reviewed GENERAL: Well-developed in no acute distress. HEENT: No sclera icterus. Extraocular movements grossly intact. Moist buccal mucosa. Head is atraumatic, normocephalic. No nasal drainage. NECK: Supple without lymphadenopathy. CHEST: Non-labored respirations and equal bilateral excursions. CARDIOVASCULAR: Regular rate with regular rhythm. Palpable 2+ radial pulses. ABDOMEN: Soft. Mildly distended. Nontender. NG tube noted. MUSCULOSKELETAL: No clubbing or cyanosis. NEUROLOGIC: Awake and alert. SKIN: Well perfused. Good skin turgor. ASSESSMENT: 1. Abnormal computed tomography scan with small bowel distention, resolving PLAN: Continue NPO status as patient failed swallow evaluation If family wants to continue aggressive medical treatment, may require PEG tube placement if patient unable to tolerate PO intake in the future Recommend resuming tube feeding. Dr. Quintero recommends that dietitian evaluate tube feeding formula and possibly change formula to one which will make the patient less prone to diarrhea Dr. Quintero recommends CT of the sinuses as this may be a cause of fevers secondary to sinusitis from prolonged NG tube. Will defer to internal medicine Nurse practitioner note has been reviewed by physician. Signing provider agrees with the documented findings, assessment, and plan of care. Objective - Vital Signs Vital signs: Vital Signs Temp 98.1 F 11/07/19 08:00 Pulse 90 11/07/19 08:00 Resp 28 H 11/07/19 08:00 BP 109/45 11/07/19 08:00 Pulse Ox 93 L 11/07/19 08:00 Intake & Output 11/06/19 11/07/19 11/07/19 18:59 06:59 18:59 Intake Total 1056.633 950.139 150 Output Total 2575 525 90 Balance -1518.367 425.139 60 Weight 83.5 kg 83.5 kg Intake: IV 665 900 150 .9 Sodium Chloride @ 10ml 40 /hr Dextrose 5% in Water 1, 525 900 150 000 ml @ 75 mls/hr IV . [id number] INDU Rx#:[id number] Magnesium Sulfate-D5w Pmx 100 1 gm In Dextrose/Water 1 100ml.bag @ 100 mls/hr IVPB Q1H INDU Rx#: [id number] Intake, IV Titration 86.633 50.139 Amount Insulin Regular 100 unit 86.633 50.139 In Sodium Chloride 0.9% 100 ml @ Per Protocol IV .Q0M INDU Rx#:[id number] Tube Feeding 105 Other 200 Output: Urine 2175 525 90 Stool 400 Other: Voiding Method Indwelling Catheter Indwelling Catheter Indwelling Catheter ABP, PAP, CO, CI - Last Documented Arterial Blood Pressure 145/58 - Labs CBC & Chem 7: 11/07/19 05:04 11/07/19 05:04 Labs: Abnormal Lab Results - Last 24 Hours (Table) 11/06/19 11/06/19 11/06/19 Range/Units 12:12 13:06 14:18 WBC (3.8-10.6) k/uL RBC (4.30-5.90) m/uL Hgb (13.0-17.5) gm/dL Hct (39.0-53.0) % MCV (80.0-100.0) fL MCHC (31.0-37.0) g/dL Plt Count (150-450) k/uL Neutrophils # (1.3-7.7) k/uL Potassium (3.5-5.1) mmol/L Chloride (98-107) mmol/L Glucose (74-99) mg/dL POC Glucose (mg/dL) 184 H 181 H 180 H (75-99) mg/dL Calcium (8.4-10.2) mg/dL Stool Lactoferrin (NEGATIVE) 11/06/19 11/06/19 11/06/19 Range/Units 16:23 17:03 17:23 WBC (3.8-10.6) k/uL RBC (4.30-5.90) m/uL Hgb (13.0-17.5) gm/dL Hct (39.0-53.0) % MCV (80.0-100.0) fL MCHC (31.0-37.0) g/dL Plt Count (150-450) k/uL Neutrophils # (1.3-7.7) k/uL Potassium (3.5-5.1) mmol/L Chloride (98-107) mmol/L Glucose (74-99) mg/dL POC Glucose (mg/dL) 190 H 164 H (75-99) mg/dL Calcium (8.4-10.2) mg/dL Stool Lactoferrin POSITIVE H (NEGATIVE) 11/06/19 11/06/19 11/06/19 Range/Units 19:03 19:58 20:56 WBC (3.8-10.6) k/uL RBC (4.30-5.90) m/uL Hgb (13.0-17.5) gm/dL Hct (39.0-53.0) % MCV (80.0-100.0) fL MCHC (31.0-37.0) g/dL Plt Count (150-450) k/uL Neutrophils # (1.3-7.7) k/uL Potassium (3.5-5.1) mmol/L Chloride (98-107) mmol/L Glucose (74-99) mg/dL POC Glucose (mg/dL) 127 H 140 H 130 H (75-99) mg/dL Calcium (8.4-10.2) mg/dL Stool Lactoferrin (NEGATIVE) 11/06/19 11/06/19 11/07/19 Range/Units 22:00 23:11 00:06 WBC (3.8-10.6) k/uL RBC (4.30-5.90) m/uL Hgb (13.0-17.5) gm/dL Hct (39.0-53.0) % MCV (80.0-100.0) fL MCHC (31.0-37.0) g/dL Plt Count (150-450) k/uL Neutrophils # (1.3-7.7) k/uL Potassium (3.5-5.1) mmol/L Chloride (98-107) mmol/L Glucose (74-99) mg/dL POC Glucose (mg/dL) 143 H 114 H 130 H (75-99) mg/dL Calcium (8.4-10.2) mg/dL Stool Lactoferrin (NEGATIVE) 11/07/19 11/07/19 11/07/19 Range/Units 01:10 03:11 04:29 WBC (3.8-10.6) k/uL RBC (4.30-5.90) m/uL Hgb (13.0-17.5) gm/dL Hct (39.0-53.0) % MCV (80.0-100.0) fL MCHC (31.0-37.0) g/dL Plt Count (150-450) k/uL Neutrophils # (1.3-7.7) k/uL Potassium (3.5-5.1) mmol/L Chloride (98-107) mmol/L Glucose (74-99) mg/dL POC Glucose (mg/dL) 159 H 139 H 151 H (75-99) mg/dL Calcium (8.4-10.2) mg/dL Stool Lactoferrin (NEGATIVE) 11/07/19 11/07/19 11/07/19 Range/Units 05:04 05:04 05:08 WBC 11.2 H (3.8-10.6) k/uL RBC 2.60 L (4.30-5.90) m/uL Hgb 8.0 L (13.0-17.5) gm/dL Hct 26.6 L (39.0-53.0) % MCV 102.1 H (80.0-100.0) fL MCHC 30.1 L (31.0-37.0) g/dL Plt Count 902 H (150-450) k/uL Neutrophils # 8.7 H (1.3-7.7) k/uL Potassium 3.2 L (3.5-5.1) mmol/L Chloride 110 H (98-107) mmol/L Glucose 130 H (74-99) mg/dL POC Glucose (mg/dL) 139 H (75-99) mg/dL Calcium 7.5 L (8.4-10.2) mg/dL Stool Lactoferrin (NEGATIVE) 11/07/19 11/07/19 Range/Units 06:45 08:16 WBC (3.8-10.6) k/uL RBC (4.30-5.90) m/uL Hgb (13.0-17.5) gm/dL Hct (39.0-53.0) % MCV (80.0-100.0) fL MCHC (31.0-37.0) g/dL Plt Count (150-450) k/uL Neutrophils # (1.3-7.7) k/uL Potassium (3.5-5.1) mmol/L Chloride (98-107) mmol/L Glucose (74-99) mg/dL POC Glucose (mg/dL) 153 H 178 H (75-99) mg/dL Calcium (8.4-10.2) mg/dL Stool Lactoferrin (NEGATIVE) Microbiology - Last 24 Hours (Table) 11/04/19 15:56 Urine Culture - Final Urine,Catheterized Layne albicans 11/04/19 20:24 Blood Culture - Preliminary Blood No Growth after 48 hours 11/05/19 12:50 Catheter Tip Culture - Preliminary Catheter Tip 11/05/19 12:50 Catheter Tip Culture - Preliminary Catheter Tip <Bess Quintero N - Last Filed: 11/08/19 11:23> Subjective Patient seen and evaluated with nurse practitioner and agree with above. HISTORY OF PRESENT ILLNESS: The patient is a 79 year old male in the intensive care unit over 3 weeks secondary to presentation of sepsis, uncontrolled hyperglycemia, sepsis, small bowel obstruction resolved and acute kidney injury. He continues to have chronic diarrhea over the past 4+ days. No reports of blood in stools. C. diff is negative. He is more awake today. REVIEW OF ORGAN SYSTEMS: No chest pain. Chronic diarrhea. No hematuria. T-max 99.9. PHYSICAL EXAM: VITALS: Reviewed CONSTITUTIONAL: Well developed and in no acute distress. EYES: Conjuctivae without sclera icterus. Extraocular movements grossly intact. HEAD, EARS, NOSE, THROAT: Moist buccal mucosa. Head is atraumatic, normocephalic. Nasogastric tube present. Cor dentition. NECK: Supple. No thyroidomegaly. RESPIRATORY: Nonlabored respirations. CARDIOVASCULAR: Palpable 2+ radial pulses. Regular rate. Regular rhythm. ABDOMEN: Soft. Nontender. Has brown liquid stools.. MUSCULOSKELETAL: No clubbing, cyanosis. Edema bilateral upper extremity 2+ SKIN: Warm and well perfused with good skin turgor. NEUROLOGIC: No focal or lateralizing signs. PSYCH: Alert to self. Garbled speech improved from yesterday. CLINCAL LABS: Reviewed. WBC down from 15.4-13.0, now 11.2 STUDIES: Bilateral chest x-ray patchy infiltrates ASSESSMENT: 1. Chronic diarrhea 2. Abdominal aortic aneurysm 3. Uncontrolled diabetes type 2 with hyperglycemia 4. Lactic acidosis 5. Acute respiratory failure 6. Dementia 7. Acute kidney injury 8. Sepsis 9. Candidiasis 10. Fevers PLAN: 1. Although diarrhea has improved, may consider adjustment of tube feeds to minimize diarrhea upon restart of tube feeds 2. As he continues to have persistent fevers, this may be linked to candidiasis systemic infection. Alternatively, with risk factors of prolonged nasogastric to placement, should benefit from CT sinuses 3. Also, patient has bilateral upper extremity edema and may benefit from DVT evaluation which may also cause low-grade fevers. Objective - Vital Signs Vital signs: Vital Signs Temp 98.3 F 11/08/19 08:00 Pulse 85 11/08/19 10:00 Resp 15 11/08/19 10:00 BP 114/54 11/08/19 10:00 Pulse Ox 94 L 11/08/19 10:00 Intake & Output 11/07/19 11/08/19 11/08/19 18:59 06:59 18:59 Intake Total 896.804 635.459 211.076 Output Total 1370 1315 140 Balance -473.196 -679.541 71.076 Weight 83.5 kg Intake: IV 850 600 200 Dextrose 5% in Water 1, 750 000 ml @ 75 mls/hr IV . [id number] INDU Rx#:[id number] Lactated Ringers 1,000 ml 100 600 200 @ 50 mls/hr IV .Q20H INDU Rx#:[id number] Intake, IV Titration 46.804 35.459 11.076 Amount Insulin Regular 100 unit 46.804 35.459 11.076 In Sodium Chloride 0.9% 100 ml @ Per Protocol IV .Q0M INDU Rx#:[id number] Output: Urine 570 515 140 Stool 800 800 Other: Voiding Method Indwelling Catheter Indwelling Catheter ABP, PAP, CO, CI - Last Documented Arterial Blood Pressure 145/58 - Labs CBC & Chem 7: 11/08/19 05:16 11/08/19 05:16 Labs: Abnormal Lab Results - Last 24 Hours (Table) 11/07/19 11/07/1911/06/20 Range/Units 11:25 13:35 14:58 WBC (3.8-10.6) k/uL RBC (4.30-5.90) m/uL Hgb (13.0-17.5) gm/dL Hct (39.0-53.0) % MCV (80.0-100.0) fL MCHC (31.0-37.0) g/dL Plt Count (150-450) k/uL Neutrophils # (1.3-7.7) k/uL Chloride (98-107) mmol/L Carbon Dioxide (22-30) mmol/L Glucose (74-99) mg/dL POC Glucose (mg/dL) 167 H 139 H 135 H (75-99) mg/dL Calcium (8.4-10.2) mg/dL 11/07/19 11/07/19 11/07/19 Range/Units 16:33 18:04 21:52 WBC (3.8-10.6) k/uL RBC (4.30-5.90) m/uL Hgb (13.0-17.5) gm/dL Hct (39.0-53.0) % MCV (80.0-100.0) fL MCHC (31.0-37.0) g/dL Plt Count (150-450) k/uL Neutrophils # (1.3-7.7) k/uL Chloride (98-107) mmol/L Carbon Dioxide (22-30) mmol/L Glucose (74-99) mg/dL POC Glucose (mg/dL) 116 H 116 H 155 H (75-99) mg/dL Calcium (8.4-10.2) mg/dL 11/07/19 11/08/19 11/08/19 Range/Units 23:23 01:59 03:29 WBC (3.8-10.6) k/uL RBC (4.30-5.90) m/uL Hgb (13.0-17.5) gm/dL Hct (39.0-53.0) % MCV (80.0-100.0) fL MCHC (31.0-37.0) g/dL Plt Count (150-450) k/uL Neutrophils # (1.3-7.7) k/uL Chloride (98-107) mmol/L Carbon Dioxide (22-30) mmol/L Glucose (74-99) mg/dL POC Glucose (mg/dL) 177 H 121 H 133 H (75-99) mg/dL Calcium (8.4-10.2) mg/dL 11/08/19 11/08/19 11/08/19 Range/Units 05:07 05:16 05:16 WBC 13.3 H (3.8-10.6) k/uL RBC 2.63 L (4.30-5.90) m/uL Hgb 8.3 L (13.0-17.5) gm/dL Hct 27.3 L (39.0-53.0) % MCV 104.0 H (80.0-100.0) fL MCHC 30.5 L (31.0-37.0) g/dL Plt Count 910 H (150-450) k/uL Neutrophils # 11.0 H (1.3-7.7) k/uL Chloride 110 H (98-107) mmol/L Carbon Dioxide 20 L (22-30) mmol/L Glucose 181 H (74-99) mg/dL POC Glucose (mg/dL) 200 H (75-99) mg/dL Calcium 7.6 L (8.4-10.2) mg/dL 11/08/19 11/08/19 11/08/19 Range/Units 07:06 08:11 09:21 WBC (3.8-10.6) k/uL RBC (4.30-5.90) m/uL Hgb (13.0-17.5) gm/dL Hct (39.0-53.0) % MCV (80.0-100.0) fL MCHC (31.0-37.0) g/dL Plt Count (150-450) k/uL Neutrophils # (1.3-7.7) k/uL Chloride (98-107) mmol/L Carbon Dioxide (22-30) mmol/L Glucose (74-99) mg/dL POC Glucose (mg/dL) 197 H 175 H 213 H (75-99) mg/dL Calcium (8.4-10.2) mg/dL 11/08/19 Range/Units 10:13 WBC (3.8-10.6) k/uL RBC (4.30-5.90) m/uL Hgb (13.0-17.5) gm/dL Hct (39.0-53.0) % MCV (80.0-100.0) fL MCHC (31.0-37.0) g/dL Plt Count (150-450) k/uL Neutrophils # (1.3-7.7) k/uL Chloride (98-107) mmol/L Carbon Dioxide (22-30) mmol/L Glucose (74-99) mg/dL POC Glucose (mg/dL) 189 H (75-99) mg/dL Calcium (8.4-10.2) mg/dL Microbiology - Last 24 Hours (Table) 11/05/19 10:30 Stool Culture - Final Stool Layne albicans 11/04/19 20:24 Blood Culture - Preliminary Blood No Growth after 72 hours 11/05/19 12:50 Catheter Tip Culture - Final Catheter Tip 11/05/19 12:50 Catheter Tip Culture - Final Catheter Tip 11/07/19 04:21 Gram Stain - Preliminary Sputum Assessment and Plan (1) Hyponatremia Current Visit: Yes Status: Acute Code(s): E87.1 - HYPO-OSMOLALITY AND HYPONATREMIA SNOMED Code(s): 92166369 (2) Hyperkalemia Current Visit: Yes Status: Acute Code(s): E87.5 - HYPERKALEMIA SNOMED Code(s): 36151235 (3) Sigmoid diverticulitis Current Visit: Yes Status: Acute Code(s): K57.32 - DVTRCLI OF LG INT W/O PERFORATION OR ABSCESS W/O BLEEDING SNOMED Code(s): 853200994 (4) Dynamic ileus Current Visit: Yes Status: Acute Code(s): K56.7 - ILEUS, UNSPECIFIED SNOMED Code(s): 16343823 (5) Hyperosmolar syndrome Current Visit: Yes Status: Acute Code(s): E87.0 - HYPEROSMOLALITY AND HYPERNATREMIA SNOMED Code(s): 67904196 (6) Hyperosmolarity due to secondary diabetes mellitus Current Visit: Yes Status: Acute Code(s): E13.00 - OTH DIAB W HYPROSM W/O NONKET HYPRGLY-HYPROS COMA ([facility]) SNOMED Code(s): 54078525 (7) Altered mental state Current Visit: No Status: Acute Code(s): R41.82 - ALTERED MENTAL STATUS, UNSPECIFIED SNOMED Code(s): 739655084 (8) Dementia Current Visit: No Status: Acute Code(s): F03.90 - UNSPECIFIED DEMENTIA WITHOUT BEHAVIORAL DISTURBANCE SNOMED Code(s): 12963242 (9) Renal insufficiency syndrome Current Visit: No Status: Acute Code(s): N28.9 - DISORDER OF KIDNEY AND URETER, UNSPECIFIED SNOMED Code(s): 152326419 (10) Shock liver Current Visit: Yes Status: Acute Code(s): K72.00 - ACUTE AND SUBACUTE HEPATIC FAILURE WITHOUT COMA SNOMED Code(s): 675520792 (11) Sepsis Current Visit: Yes Status: Acute Code(s): A41.9 - SEPSIS, UNSPECIFIED ORGANISM SNOMED Code(s): 49202782
[2019-11-07 11:27] LABS: Glucose,Whole Blood 167 mg/dL (75-99)
--- NOTE | 2019-11-07 11:44 | P.PN ---
Subjective Patient is seen in follow-up for acute kidney injury. Patient extubated on November 02. Renal function is stable. Sodium level 138. No improvement in mentation. Tube feedings currently on hold. Urine output about 50 mL an hour. Vital signs are stable. General: The patient appeared well nourished and normally developed. HEENT: Head exam is unremarkable. Neck is without jugular venous distension. LUNGS: Breath sounds decreased. HEART: Rate and Rhythm are regular. ABDOMEN: Soft, moderate distention noted. EXTREMITITES: Trace edema. Objective - Vital Signs Vital signs: Vital Signs Temp 98.1 F 11/07/19 08:00 Pulse 90 11/07/19 08:00 Resp 28 H 11/07/19 08:00 BP 109/45 11/07/19 08:00 Pulse Ox 93 L 11/07/19 08:00 Intake & Output 11/06/19 11/07/19 11/07/19 18:59 06:59 18:59 Intake Total 1056.633 950.139 150 Output Total 2575 525 90 Balance -1518.367 425.139 60 Weight 83.5 kg 83.5 kg Intake: IV 665 900 150 .9 Sodium Chloride @ 10ml 40 /hr Dextrose 5% in Water 1, 525 900 150 000 ml @ 75 mls/hr IV . [id number] INDU Rx#:[id number] Magnesium Sulfate-D5w Pmx 100 1 gm In Dextrose/Water 1 100ml.bag @ 100 mls/hr IVPB Q1H IDNU Rx#: [id number] Intake, IV Titration 86.633 50.139 Amount Insulin Regular 100 unit 86.633 50.139 In Sodium Chloride 0.9% 100 ml @ Per Protocol IV .Q0M INDU Rx#:[id number] Tube Feeding 105 Other 200 Output: Urine 2175 525 90 Stool 400 Other: Voiding Method Indwelling Catheter Indwelling Catheter Indwelling Catheter ABP, PAP, CO, CI - Last Documented Arterial Blood Pressure 145/58 - Labs CBC & Chem 7: 11/07/19 05:04 11/07/19 05:04 Labs: Abnormal Lab Results - Last 24 Hours (Table) 11/06/19 11/06/19 11/06/19 Range/Units 12:12 13:06 14:18 WBC (3.8-10.6) k/uL RBC (4.30-5.90) m/uL Hgb (13.0-17.5) gm/dL Hct (39.0-53.0) % MCV (80.0-100.0) fL MCHC (31.0-37.0) g/dL Plt Count (150-450) k/uL Neutrophils # (1.3-7.7) k/uL Potassium (3.5-5.1) mmol/L Chloride (98-107) mmol/L Glucose (74-99) mg/dL POC Glucose (mg/dL) 184 H 181 H 180 H (75-99) mg/dL Calcium (8.4-10.2) mg/dL Stool Lactoferrin (NEGATIVE) 11/06/19 11/06/19 11/06/19 Range/Units 16:23 17:03 17:23 WBC (3.8-10.6) k/uL RBC (4.30-5.90) m/uL Hgb (13.0-17.5) gm/dL Hct (39.0-53.0) % MCV (80.0-100.0) fL MCHC (31.0-37.0) g/dL Plt Count (150-450) k/uL Neutrophils # (1.3-7.7) k/uL Potassium (3.5-5.1) mmol/L Chloride (98-107) mmol/L Glucose (74-99) mg/dL POC Glucose (mg/dL) 190 H 164 H (75-99) mg/dL Calcium (8.4-10.2) mg/dL Stool Lactoferrin POSITIVE H (NEGATIVE) 11/06/19 11/06/19 11/06/19 Range/Units 19:03 19:58 20:56 WBC (3.8-10.6) k/uL RBC (4.30-5.90) m/uL Hgb (13.0-17.5) gm/dL Hct (39.0-53.0) % MCV (80.0-100.0) fL MCHC (31.0-37.0) g/dL Plt Count (150-450) k/uL Neutrophils # (1.3-7.7) k/uL Potassium (3.5-5.1) mmol/L Chloride (98-107) mmol/L Glucose (74-99) mg/dL POC Glucose (mg/dL) 127 H 140 H 130 H (75-99) mg/dL Calcium (8.4-10.2) mg/dL Stool Lactoferrin (NEGATIVE) 11/06/19 11/06/19 11/07/19 Range/Units 22:00 23:11 00:06 WBC (3.8-10.6) k/uL RBC (4.30-5.90) m/uL Hgb (13.0-17.5) gm/dL Hct (39.0-53.0) % MCV (80.0-100.0) fL MCHC (31.0-37.0) g/dL Plt Count (150-450) k/uL Neutrophils # (1.3-7.7) k/uL Potassium (3.5-5.1) mmol/L Chloride (98-107) mmol/L Glucose (74-99) mg/dL POC Glucose (mg/dL) 143 H 114 H 130 H (75-99) mg/dL Calcium (8.4-10.2) mg/dL Stool Lactoferrin (NEGATIVE) 11/07/19 11/07/19 11/07/19 Range/Units 01:10 03:11 04:29 WBC (3.8-10.6) k/uL RBC (4.30-5.90) m/uL Hgb (13.0-17.5) gm/dL Hct (39.0-53.0) % MCV (80.0-100.0) fL MCHC (31.0-37.0) g/dL Plt Count (150-450) k/uL Neutrophils # (1.3-7.7) k/uL Potassium (3.5-5.1) mmol/L Chloride (98-107) mmol/L Glucose (74-99) mg/dL POC Glucose (mg/dL) 159 H 139 H 151 H (75-99) mg/dL Calcium (8.4-10.2) mg/dL Stool Lactoferrin (NEGATIVE) 11/07/19 11/07/19 11/07/19 Range/Units 05:04 05:04 05:08 WBC 11.2 H (3.8-10.6) k/uL RBC 2.60 L (4.30-5.90) m/uL Hgb 8.0 L (13.0-17.5) gm/dL Hct 26.6 L (39.0-53.0) % MCV 102.1 H (80.0-100.0) fL MCHC 30.1 L (31.0-37.0) g/dL Plt Count 902 H (150-450) k/uL Neutrophils # 8.7 H (1.3-7.7) k/uL Potassium 3.2 L (3.5-5.1) mmol/L Chloride 110 H (98-107) mmol/L Glucose 130 H (74-99) mg/dL POC Glucose (mg/dL) 139 H (75-99) mg/dL Calcium 7.5 L (8.4-10.2) mg/dL Stool Lactoferrin (NEGATIVE) 11/07/19 11/07/19 11/07/19 Range/Units 06:45 08:16 11:25 WBC (3.8-10.6) k/uL RBC (4.30-5.90) m/uL Hgb (13.0-17.5) gm/dL Hct (39.0-53.0) % MCV (80.0-100.0) fL MCHC (31.0-37.0) g/dL Plt Count (150-450) k/uL Neutrophils # (1.3-7.7) k/uL Potassium (3.5-5.1) mmol/L Chloride (98-107) mmol/L Glucose (74-99) mg/dL POC Glucose (mg/dL) 153 H 178 H 167 H (75-99) mg/dL Calcium (8.4-10.2) mg/dL Stool Lactoferrin (NEGATIVE) Microbiology - Last 24 Hours (Table) 11/05/19 10:30 Stool Culture - Preliminary Stool Layne albicans 11/04/19 15:56 Urine Culture - Final Urine,Catheterized Layne albicans 11/04/19 20:24 Blood Culture - Preliminary Blood No Growth after 48 hours 11/05/19 12:50 Catheter Tip Culture - Preliminary Catheter Tip 11/05/19 12:50 Catheter Tip Culture - Preliminary Catheter Tip Assessment and Plan Plan: Assessment: 1. Acute kidney injury secondary to ATN secondary to severe intravascular volume depletion due to hyperglycemia and further worsened with hypotension. Creatinine peaked at 2.7 this admission and is stable near 1 today. 2. Rule out chronic kidney disease. Creatinine was in the range of 1.2-1.5 in July 2018. No proteinuria on UA. 3. Severe metabolic acidosis secondary to DKA. Improved. 4. DKA s/p insulin drip. 5. Hypernatremia secondary to lack of oral water intake and diuresis. Better. 6. Possible pneumonia s/p antibiotics. 7. Anoxic brain injury. 8. Hypokalemia secondary to diuresis. Being replaced. Magnesium normal. 9. Volume overload. Status post IV Lasix on November 04 and . 10. Abdominal distention. Likely due to ileus versus small bowel obstruction. Surgery following. Plan: Discontinue D5W. Hold diuretics today. Repeat electrolytes in the morning. Potassium being replaced.
[2019-11-07] MEDS: NYSTATIN 100,000 UNIT/ML SUSP 500,000 UNIT/5 ML CUP PO SCH ×4 (12:09→21:49)
[2019-11-07] MEDS: SODIUM CHLORIDE 0.9% 500 ML 500 ML IV SCH (12:11)
[2019-11-07 13:36] LABS: Glucose,Whole Blood 139 mg/dL (75-99)
[2019-11-07 15:00] LABS: Glucose,Whole Blood 135 mg/dL (75-99)
[2019-11-07] MEDS: INSULIN REGULAR 100 UNIT in SODIUM CHLORIDE 0.9% 100 ML IV SCH (16:18)
[2019-11-07] MEDS: LACTATED RINGERS 1,000 ML IV SCH (16:22)
[2019-11-07 16:34] LABS: Glucose,Whole Blood 116 mg/dL (75-99)
[2019-11-07] MEDS: HYDROmorphone 0.5 MG/0.5 ML SYRINGE IVP PRN (16:35)
--- NOTE | 2019-11-07 17:49 | P.PN ---
Subjective Progress Note Date: 11/07/19 Principal diagnosis: Ileus, acute diarrhea Patient is seen lying in bed today. Nasogastric tube feeds currently being held with much improved his stool output since that time. No nausea or vomiting. Objective - Vital Signs Vital signs: Vital Signs Temp 98.1 F 11/07/19 08:00 Pulse 87 11/07/19 11:00 Resp 27 H 11/07/19 11:00 BP 118/53 11/07/19 11:00 Pulse Ox 96 11/07/19 11:00 Intake & Output 11/06/19 11/07/19 11/07/19 18:59 06:59 18:59 Intake Total 1056.633 950.139 450 Output Total 2575 525 695 Balance -1518.367 425.139 -245 Weight 83.5 kg 83.5 kg Intake: IV 665 900 450 .9 Sodium Chloride @ 10ml 40 /hr Dextrose 5% in Water 1, 525 900 450 000 ml @ 75 mls/hr IV . [id number] [facility] Rx#:[id number] Magnesium Sulfate-D5w Pmx 100 1 gm In Dextrose/Water 1 100ml.bag @ 100 mls/hr IVPB Q1H [facility] Rx#: [id number] Intake, IV Titration 86.633 50.139 Amount Insulin Regular 100 unit 86.633 50.139 In Sodium Chloride 0.9% 100 ml @ Per Protocol IV .Q0M IN[facility] Rx#:[id number] Tube Feeding 105 Other 200 Output: Urine 2175 525 295 Stool 400 400 Other: Voiding Method Indwelling Catheter Indwelling Catheter Indwelling Catheter ABP, PAP, CO, CI - Last Documented Arterial Blood Pressure 145/58 - Exam On physical examination, patient appears comfortable in no apparent distress. HEAD: Normocephalic, atraumatic. EYES: No scleral icterus. No conjunctival injection. MOUTH: No lesions, tongue midline. NECK: Trachea midline, no gross abnormalities. ABDOMEN: Soft, moderately distended. Bowel sounds are positive. No organomegaly. No guarding or rigidity. EXTREMITIES: No pedal edema. SKIN: No rashes, no jaundice. NEUROLOGIC: Alert and oriented only to person. - Labs CBC & Chem 7: 11/07/19 05:04 11/07/19 05:04 Labs: Abnormal Lab Results - Last 24 Hours (Table) 11/06/19 11/06/19 11/06/19 Range/Units 12:12 13:06 14:18 WBC (3.8-10.6) k/uL RBC (4.30-5.90) m/uL Hgb (13.0-17.5) gm/dL Hct (39.0-53.0) % MCV (80.0-100.0) fL MCHC (31.0-37.0) g/dL Plt Count (150-450) k/uL Neutrophils # (1.3-7.7) k/uL Potassium (3.5-5.1) mmol/L Chloride (98-107) mmol/L Glucose (74-99) mg/dL POC Glucose (mg/dL) 184 H 181 H 180 H (75-99) mg/dL Calcium (8.4-10.2) mg/dL Stool Lactoferrin (NEGATIVE) 11/06/19 11/06/19 11/06/19 Range/Units 16:23 17:03 17:23 WBC (3.8-10.6) k/uL RBC (4.30-5.90) m/uL Hgb (13.0-17.5) gm/dL Hct (39.0-53.0) % MCV (80.0-100.0) fL MCHC (31.0-37.0) g/dL Plt Count (150-450) k/uL Neutrophils # (1.3-7.7) k/uL Potassium (3.5-5.1) mmol/L Chloride (98-107) mmol/L Glucose (74-99) mg/dL POC Glucose (mg/dL) 190 H 164 H (75-99) mg/dL Calcium (8.4-10.2) mg/dL Stool Lactoferrin POSITIVE H (NEGATIVE) 11/06/19 11/06/19 11/06/19 Range/Units 19:03 19:58 20:56 WBC (3.8-10.6) k/uL RBC (4.30-5.90) m/uL Hgb (13.0-17.5) gm/dL Hct (39.0-53.0) % MCV (80.0-100.0) fL MCHC (31.0-37.0) g/dL Plt Count (150-450) k/uL Neutrophils # (1.3-7.7) k/uL Potassium (3.5-5.1) mmol/L Chloride (98-107) mmol/L Glucose (74-99) mg/dL POC Glucose (mg/dL) 127 H 140 H 130 H (75-99) mg/dL Calcium (8.4-10.2) mg/dL Stool Lactoferrin (NEGATIVE) 11/06/19 11/06/19 11/07/19 Range/Units 22:00 23:11 00:06 WBC (3.8-10.6) k/uL RBC (4.30-5.90) m/uL Hgb (13.0-17.5) gm/dL Hct (39.0-53.0) % MCV (80.0-100.0) fL MCHC (31.0-37.0) g/dL Plt Count (150-450) k/uL Neutrophils # (1.3-7.7) k/uL Potassium (3.5-5.1) mmol/L Chloride (98-107) mmol/L Glucose (74-99) mg/dL POC Glucose (mg/dL) 143 H 114 H 130 H (75-99) mg/dL Calcium (8.4-10.2) mg/dL Stool Lactoferrin (NEGATIVE) 11/07/19 11/07/19 11/07/19 Range/Units 01:10 03:11 04:29 WBC (3.8-10.6) k/uL RBC (4.30-5.90) m/uL Hgb (13.0-17.5) gm/dL Hct (39.0-53.0) % MCV (80.0-100.0) fL MCHC (31.0-37.0) g/dL Plt Count (150-450) k/uL Neutrophils # (1.3-7.7) k/uL Potassium (3.5-5.1) mmol/L Chloride (98-107) mmol/L Glucose (74-99) mg/dL POC Glucose (mg/dL) 159 H 139 H 151 H (75-99) mg/dL Calcium (8.4-10.2) mg/dL Stool Lactoferrin (NEGATIVE) 11/07/19 11/07/19 11/07/19 Range/Units 05:04 05:04 05:08 WBC 11.2 H (3.8-10.6) k/uL RBC 2.60 L (4.30-5.90) m/uL Hgb 8.0 L (13.0-17.5) gm/dL Hct 26.6 L (39.0-53.0) % MCV 102.1 H (80.0-100.0) fL MCHC 30.1 L (31.0-37.0) g/dL Plt Count 902 H (150-450) k/uL Neutrophils # 8.7 H (1.3-7.7) k/uL Potassium 3.2 L (3.5-5.1) mmol/L Chloride 110 H (98-107) mmol/L Glucose 130 H (74-99) mg/dL POC Glucose (mg/dL) 139 H (75-99) mg/dL Calcium 7.5 L (8.4-10.2) mg/dL Stool Lactoferrin (NEGATIVE) 11/07/19 11/07/19 11/07/19 Range/Units 06:45 08:16 11:25 WBC (3.8-10.6) k/uL RBC (4.30-5.90) m/uL Hgb (13.0-17.5) gm/dL Hct (39.0-53.0) % MCV (80.0-100.0) fL MCHC (31.0-37.0) g/dL Plt Count (150-450) k/uL Neutrophils # (1.3-7.7) k/uL Potassium (3.5-5.1) mmol/L Chloride (98-107) mmol/L Glucose (74-99) mg/dL POC Glucose (mg/dL) 153 H 178 H 167 H (75-99) mg/dL Calcium (8.4-10.2) mg/dL Stool Lactoferrin (NEGATIVE) Microbiology - Last 24 Hours (Table) 11/05/19 10:30 Stool Culture - Preliminary Stool Layne albicans 11/04/19 15:56 Urine Culture - Final Urine,Catheterized Layne albicans 11/04/19 20:24 Blood Culture - Preliminary Blood No Growth after 48 hours 11/05/19 12:50 Catheter Tip Culture - Preliminary Catheter Tip 11/05/19 12:50 Catheter Tip Culture - Preliminary Catheter Tip Assessment and Plan (1) Diarrhea Narrative/Plan: 79-year-old male with multiple medical comorbidities admitted for nonketotic hyperosmolar hyperglycemia, sepsis, ileus versus obstruction with suspicion for intra-abdominal sepsis who had severe diarrhea occur during his hospitalization. Diarrhea markedly improved after tube feeds have been held, with suspicion for diarrhea secondary to the tube feeds. Testing for Clostridium difficile has b een negative on 2 occasions with decreased stool output today. Current Visit: No Status: Acute Code(s): R19.7 - DIARRHEA, UNSPECIFIED SNOMED Code(s): 59307539 (2) Dynamic ileus Current Visit: Yes Status: Acute Code(s): K56.7 - ILEUS, UNSPECIFIED SNOMED Code(s): 30322903 Plan: Supportive care Continue ICU management Continue broad-spectrum antibiotic therapy Surgical service following Continue to hold tube feeds Would recommend initiation of alternate tube feed formulation if necessary otherwise if patient is able to pass a swallow evaluation would benefit from oral nutrition Continue to monitor stool output No plans for endoscopic evaluation at this time Thank you for allowing us to participate in the care of the patient
[2019-11-07 18:05] LABS: Glucose,Whole Blood 116 mg/dL (75-99)
[2019-11-07 19:59] LABS: Glucose,Whole Blood 92 mg/dL (75-99)
[2019-11-07] MEDS: ACETAMINOPHEN TAB 325 MG TAB PO PRN (20:20)
[2019-11-07 21:54] LABS: Glucose,Whole Blood 155 mg/dL (75-99)
--- NOTE | 2019-11-07 22:11 | P.PN ---
Progress Note - Text Progress Note Date: 11/07/19 Interval history: 79-year-old male with PMH of diabetes mellitus on oral hypoglycemics, con pascual presents the ED for altered mentation. Apparently, patient was visited by his nurse who noted an extremely high blood glucose which prompted his hospital visit. Patient is altered and he is unable to provide any meaningful history. Majority of documentation was obtained from chart review and discussion with his son. Apparently, patient has been confused and disoriented which is progressive ly been worsening over the past 2 weeks. His son reports that the patient fell a week ago and did not seek medical attention. Patient lives with his who is suffering from advanced Alzheimer's dementia and is currently in hospice. According to the son, patient drinks 4 L of soda on a daily basis. Son reports that patient is noncompliant with her diabetic diet. In the ED, vital signs showed a T low of 97.5 Fahrenheit, pulse of 102, tachypnea with respiratory rate of 28, BP of 85/49 and 89% on room air. CBC showed leukocytosis of 11 and MCV of 124.1. ABG showed pH of 7, pCO2 19, bica rbonate of 8. CMP showed sodium of 116, potassium of 5.7, chloride of 74, bicarbonate of 8, BUN 33, creatinine 2.18, glucose greater than 1875. Troponin was 0.881 with EKG showing sinus tachycardia. Urinalysis shows 4+ glucose and trace blood. Acetone was negative. CT brain was negative for hemorrhage but showed slightly hyperdense left MCA compared to right. Chest x-ray showed possible right lower lobe infiltrate. Patient is admitted to ICU for sepsis, troponin elevation and diabetic ketoacidosis. Intubated. Patient developed ischemic hepatitis. Sepsis. Also developed bowel obstruction-that corrected on its own. Seen by neurology. Patient's felt to have anoxic brain injury. Patient was extubated on November 01 Today-ICU. Was started on Metamucil yesterday. To formal to stool. The quantity is decreased. Patient a bit more awake. Talking a bit. Sometimes confused. 2 feeding has been on hold Review of systems cannot be done as patient is still somewhat confused Active Medications Acetaminophen (Tylenol Tab) 650 mg PO Q6HR PRN PRN Reason: Fever and/ or Pain Last Admin: 11/07/19 20:20 Dose: 650 mg Documented by: Amiodarone HCl (Cordarone) 200 mg PO BID [facility] Last Admin: 11/07/19 20:21 Dose: 200 mg Documented by: Aspirin (Aspirin) 81 mg PO DAILY [facility] Last Admin: 11/07/19 08:33 Dose: 81 mg Documented by: Famotidine (Pepcid) 20 mg PO BID [facility] Last Admin: 11/07/19 20:20 Dose: 20 mg Documented by: Heparin Sodium (Porcine) (Heparin) 5,000 unit SQ Q8HR [facility] Last Admin: 11/07/19 16:21 Dose: 5,000 unit Documented by: Hydromorphone HCl (Dilaudid) 0.5 mg IVP Q2HR PRN PRN Reason: Pain Last Admin: 11/07/19 16:35 Dose: 0.5 mg Documented by: Insulin Human Regular 100 unit (/ Sodium Chloride) 101 mls @ 0 mls/hr IV .Q0M [facility]; Protocol Last Titration: 11/07/19 21:52 Dose: 4.5 unit/hr, 4.545 mls/hr Documented by: Sodium Chloride (Saline 0.9%) 500 mls @ 10 mls/hr IV .Q24H [facility] Last Admin: 11/07/19 12:11 Dose: Not Given Documented by: Lactated Ringer's (Lactated Ringers) 1,000 mls @ 50 mls/hr IV .Q20H [facility] Last Admin: 11/07/19 16:22 Dose: 50 mls/hr Documented by: Lisinopril (Zestril) 2.5 mg PO DAILY [facility] Last Admin: 11/07/19 08:33 Dose: 2.5 mg Documented by: Metoprolol Tartrate (Lopressor) 12.5 mg PO BID [facility] Last Admin: 11/07/19 20:20 Dose: 12.5 mg Documented by: Miscellaneous Information (Pneumonia Protocol Utilized) 1 each PO ONCE PRN PRN Reason: Per Protocol Miscellaneous Information (Magnesium Per Protocol) 1 each MISCELLANE DAILY PRN; Protocol PRN Reason: Per Protocol Miscellaneous Information (Phosphorus Per Protocol) 1 each MISCELLANE DAILY PRN; Protocol PRN Reason: Per Protocol Miscellaneous Information (Potassium Per Protocol) 1 each MISCELLANE DAILY PRN; Protocol PRN Reason: Per Protocol Naloxone HCl (Narcan) 0.2 mg IV Q2M PRN PRN Reason: Opioid Reversal Nystatin (Mycostatin Oral Susp) 500,000 unit PO QID [facility] Last Admin: 11/07/19 21:49 Dose: 500,000 unit Documented by: On examination: VITAL SIGNS: 99.6, 88, 26, 110 00 49, 96% on 2 L GENERAL APPEARANCE: laying in bed, lethargic, arousable HEENT: Normal external appearance of nose and ear. Oral cavity -endotracheal tube, NG tube to suction EYES: Pupils equal. Conjunctiva normal. NECK: JVD unable to assess. Mass not palpable. RESPIRATORY: Respiratory effort increased. Lungs -decreased breath sounds CARDIOVASCULAR: First and second sounds normal. No edema. ABDOMEN: Soft. Liver and spleen not palpable. No tenderness. No mass palpable. PSYCHIATRY: unable to assess, patient lethargic NEUROLOGICAL: Patient is attempting to talk. Sometimes confused.. INVESTIGATIONS, reviewed in the clinical context: White count 11.2 hemoglobin 8 potassium 3.2 creatinine 0.88 Previous testing: White count 11 hemoglobin 13.7 platelets 383 Sodium 116, bicarb 8, bun 33, creatinine 2.18 glucose 1875 troponin I 0.88 1 Rusty-19 PCR-not detected computed tomography scan of the brain without contrast-no acute degenerative changes Ultrasound kidney-limited exam 2-D echocardiogram-EF 30-35%, anteroseptal apical hypokinesia AST 3453, ALT 1264, computed tomography scan of the abdomen and pelvis without contrast-dilated multiple loops of small bowel some free fluid in the paracolic gutter bilateral lower lobe pulmonary infiltrates, fusiform 4.4 cm lower abdominal aortic aneurysm with aortoiliac endograft multiple diverticula of the sigmoid colon. Mild wall thickening of the ascending colon. Blood cultures from October 20-negative Abdominal x-ray-October 25--contrast has passed through to thecolon EEG suggestive of encephalopathy, computed tomography scan of the brain-on October 28-chronic changes Assessment: -acute nonketotic hyperosmolar diabetes with severe hyperglycemia, POA -Acute small bowel obstruction, and distal jejunal clinically improved, NG tube suction discontinued.- tube feeding started -Acute hypoxic respiratory failure requiring mechanical ventilator extubated on November 01 -Acute metabolic encephalopathy from-slow to improve -Alzheimer's dementia -Pseudohyponatremia from severe hyperglycemia -4.4 cm distal abdominal aortic aneurysm with the endoluminal stent graft -Peripheral arterial disease -Acute shock liver secondary to hypotensive-corrected -Chronic congestive heart failure from systolic dysfunction EF 30-35% -Sepsis with septic shock, possible community acquired pneumonia -Metabolic encephalopathy likely due to the above -Non-ST elevation IN likely type II from demand ischemia, POA -Acute kidney injury likely corrected -Possibly chronic kidney disease -essential hypertension -Pneumonia suspect gram-negative organism -New onset atrial fibrillation. -Anoxic brain injury-some improvement -Stage II pressure ulcer on the coccyx -Severe diarrhea-negative for C. diff. Could be from 2 feeding. Which has been held. Metamucil added. Plan: Patient currently on by mouth amiodarone, D5W IV fluids, Zestril, Lopressor,. We'll try a different type of 2 feeding. Continue Metamucil.
[2019-11-07 23:24] LABS: Glucose,Whole Blood 177 mg/dL (75-99)
[2019-11-08 02:01] LABS: Glucose,Whole Blood 121 mg/dL (75-99)
[2019-11-08 03:31] LABS: Glucose,Whole Blood 133 mg/dL (75-99)
[2019-11-08 05:09] LABS: Glucose,Whole Blood 200 mg/dL (75-99)
[2019-11-08 05:41] LABS: Basophils # (A) 0.1 k/uL (0-0.2); Basophils % (A) 0 %; Eosinophils # (A) 0.1 k/uL (0-0.7); Eosinophils % (A) 1 %; HCT 27.3 % (39.0-53.0); HGB 8.3 gm/dL (13.0-17.5); Hypochromasia Marked; Lymphocytes # (A) 1.2 k/uL (1.0-4.8); Lymphocytes % (A) 9 %; MCH 31.7 pg (25.0-35.0); MCHC 30.5 g/dL (31.0-37.0); Macrocytosis Moderate; Mean Platelet Volume 7.5; Monocytes # (A) 0.6 k/uL (0-1.0); Monocytes % (A) 5 %; Neutrophils % (A) 83 %; Platelet Count 910 k/uL (150-450); Poikilocytosis Slight; RBC 2.63 m/uL (4.30-5.90); RDW 15.5 % (11.5-15.5); WBC 13.3 k/uL (3.8-10.6)
--- NOTE | 2019-11-08 06:18 | XR ---
EXAMINATION TYPE: XR chest 1V portable DATE OF EXAM: 11/08/2019 CLINICAL HISTORY: Difficulty breathing progress study. TECHNIQUE: Single AP portable upright view of the chest is obtained. COMPARISON: Chest x-ray from one day earlier and older studies. FINDINGS: Patient more rotated on current study. Stable orogastric tube . Persistent low lung volumes and bibasilar opacities along with central vascular congestion. Cardiac silhouette size stable and w ithin normal limits with atherosclerotic and ectatic thoracic aorta. Osseous structures are intact. IMPRESSION: Overall stable findings, low lung volumes and mild central vascular congestion with pat olivia bibasilar acute atelectasis and/or infiltrates.
[2019-11-08 06:25] LABS: African American GFR (CKD) >90 (>60 ml/min/1.73 sqM); Anion Gap 10 mmol/L; Blood Urea Nitrogen 15 mg/dL (9-20); Calcium 7.6 mg/dL (8.4-10.2); Carbon Dioxide 20 mmol/L (22-30); Chloride 110 mmol/L (98-107); Glucose 181 mg/dL (74-99); Magnesium 1.9 mg/dL (1.6-2.3); Non-African American GFR(CKD) 79 (>60 ml/min/1.73 sqM); Sodium 140 mmol/L (137-145)
[2019-11-08 07:07] LABS: Glucose,Whole Blood 197 mg/dL (75-99)
--- NOTE | 2019-11-08 07:16 | P.PN ---
Subjective Progress Note Date: 11/08/19 Principal diagnosis: cardiomyopathy This is an 79-year-old gentleman with extensive past medical history who was admitted to the hospital initially with intra-abdominal sepsis and small bowel obstruction and developed acute hypoxic respiratory failure. The patient was seen today, 11/08/2019. Overall he is stable. He is in normal sinus rhythm that he has been having a burst of atrial fibrillation. I am going to increase the dose of metoprolol to 25 mg by mouth twice a day. Continue holding oral anticoagulation because of history of GI bleeding. Objective - Vital Signs Vital signs: Vital Signs Temp 98.4 F 11/08/19 04:00 Pulse 95 11/08/19 07:00 Resp 14 11/08/19 07:00 BP 115/54 11/08/19 07:00 Pulse Ox 95 11/08/19 07:00 Intake & Output 11/07/19 11/08/19 11/08/19 18:59 06:59 18:59 Intake Total 896.804 635.459 50 Output Total 1370 1315 30 Balance -473.196 -679.541 20 Weight 83.5 kg Intake: IV 850 600 50 Dextrose 5% in Water 1, 750 000 ml @ 75 mls/hr IV . [id number] [facility] Rx#:[id number] Lactated Ringers 1,000 ml 100 600 50 @ 50 mls/hr IV .Q20H [facility] Rx#:[id number] Intake, IV Titration 46.804 35.459 Amount Insulin Regular 100 unit 46.804 35.459 In Sodium Chloride 0.9% 100 ml @ Per Protocol IV .Q0M [facility] Rx#:[id number] Output: Urine 570 515 30 Stool 800 800 Other: Voiding Method Indwelling Catheter Indwelling Catheter ABP, PAP, CO, CI - Last Documented Arterial Blood Pressure 145/58 - Constitutional General appearance: Present: no acute distress - Respiratory Respiratory: bilateral: CTA - Cardiovascular Rhythm: regular Heart sounds: normal: S1, S2 - Labs CBC & Chem 7: 11/08/19 05:16 11/08/19 05:16 Labs: Abnormal Lab Results - Last 24 Hours (Table) 11/07/19 11/07/19 11/07/19 Range/Units 08:16 11:25 13:35 WBC (3.8-10.6) k/uL RBC (4.30-5.90) m/uL Hgb (13.0-17.5) gm/dL Hct (39.0-53.0) % MCV (80.0-100.0) fL MCHC (31.0-37.0) g/dL Plt Count (150-450) k/uL Neutrophils # (1.3-7.7) k/uL Chloride (98-107) mmol/L Carbon Dioxide (22-30) mmol/L Glucose (74-99) mg/dL POC Glucose (mg/dL) 178 H 167 H 139 H (75-99) mg/dL Calcium (8.4-10.2) mg/dL 11/07/19 11/07/19 11/07/19 Range/Units 14:58 16:33 18:04 WBC (3.8-10.6) k/uL RBC (4.30-5.90) m/uL Hgb (13.0-17.5) gm/dL Hct (39.0-53.0) % MCV (80.0-100.0) fL MCHC (31.0-37.0) g/dL Plt Count (150-450) k/uL Neutrophils # (1.3-7.7) k/uL Chloride (98-107) mmol/L Carbon Dioxide (22-30) mmol/L Glucose (74-99) mg/dL POC Glucose (mg/dL) 135 H 116 H 116 H (75-99) mg/dL Calcium (8.4-10.2) mg/dL 11/07/19 11/07/19 11/08/19 Range/Units 21:52 23:23 01:59 WBC (3.8-10.6) k/uL RBC (4.30-5.90) m/uL Hgb (13.0-17.5) gm/dL Hct (39.0-53.0) % MCV (80.0-100.0) fL MCHC (31.0-37.0) g/dL Plt Count (150-450) k/uL Neutrophils # (1.3-7.7) k/uL Chloride (98-107) mmol/L Carbon Dioxide (22-30) mmol/L Glucose (74-99) mg/dL POC Glucose (mg/dL) 155 H 177 H 121 H (75-99) mg/dL Calcium (8.4-10.2) mg/dL 11/08/19 11/08/19 11/08/19 Range/Units 03:29 05:07 05:16 WBC 13.3 H (3.8-10.6) k/uL RBC 2.63 L (4.30-5.90) m/uL Hgb 8.3 L (13.0-17.5) gm/dL Hct 27.3 L (39.0-53.0) % MCV 104.0 H (80.0-100.0) fL MCHC 30.5 L (31.0-37.0) g/dL Plt Count 910 H (150-450) k/uL Neutrophils # 11.0 H (1.3-7.7) k/uL Chloride (98-107) mmol/L Carbon Dioxide (22-30) mmol/L Glucose (74-99) mg/dL POC Glucose (mg/dL) 133 H 200 H (75-99) mg/dL Calcium (8.4-10.2) mg/dL 11/08/19 11/08/19 Range/Units 05:16 07:06 WBC (3.8-10.6) k/uL RBC (4.30-5.90) m/uL Hgb (13.0-17.5) gm/dL Hct (39.0-53.0) % MCV (80.0-100.0) fL MCHC (31.0-37.0) g/dL Plt Count (150-450) k/uL Neutrophils # (1.3-7.7) k/uL Chloride 110 H (98-107) mmol/L Carbon Dioxide 20 L (22-30) mmol/L Glucose 181 H (74-99) mg/dL POC Glucose (mg/dL) 197 H (75-99) mg/dL Calcium 7.6 L (8.4-10.2) mg/dL Microbiology - Last 24 Hours (Table) 11/04/19 20:24 Blood Culture - Preliminary Blood No Growth after 72 hours 11/05/19 12:50 Catheter Tip Culture - Final Catheter Tip 11/05/19 12:50 Catheter Tip Culture - Final Catheter Tip 11/07/19 04:21 Gram Stain - Preliminary Sputum 11/05/19 10:30 Stool Culture - Preliminary Stool Layne albicans 11/04/19 15:56 Urine Culture - Final Urine,Catheterized Layne albicans Assessment and Plan Assessment: assessment #1 acute hypoxic respiratory failure which has improved #2 paroxysmal atrial fibrillation #3 severe cardiomyopathy #4 peripheral arterial disease #5 multiple comorbid conditions Plan #1 continue the current medical regimen including the current dose of amiodarone #2 increase the dose of metoprolol to 25 mg by mouth twice a day #3 follow-up with the patient
[2019-11-08 08:14] LABS: Glucose,Whole Blood 175 mg/dL (75-99)
[2019-11-08] MEDS: NYSTATIN 100,000 UNIT/ML SUSP 500,000 UNIT/5 ML CUP PO SCH ×4 (09:10→19:51)
[2019-11-08 09:22] LABS: Glucose,Whole Blood 213 mg/dL (75-99)
[2019-11-08] MEDS: HEPARIN SODIUM,PORCINE 5,000 UNIT/ML 1 ML VIAL SQ SCH ×2 (09:26→18:16)
[2019-11-08] MEDS: AMIODARONE 200 MG TAB PO SCH ×2 (09:26→19:50)
[2019-11-08] MEDS: METOPROLOL TARTRATE 25 MG TAB PO SCH ×2 (09:27→19:50)
[2019-11-08] MEDS: FAMOTIDINE 20 MG TAB PO SCH ×2 (09:27→19:50)
[2019-11-08] MEDS: ASPIRIN 81 MG PO SCH (09:27)
[2019-11-08] MEDS: LISINOPRIL 2.5 MG TAB PO SCH (09:27)
[2019-11-08 10:13] LABS: Glucose,Whole Blood 189 mg/dL (75-99)
--- NOTE | 2019-11-08 10:30 | P.PN ---
Subjective Progress Note Date: 11/08/19 Principal diagnosis: Diarrhea 79-year-old male being followed by Dr. Dhaliwal. Remains in the ICU. Tolerating tube feeds. Denies abdominal pain. T-max 100.5. White blood cell count 13.3. No nausea or vomiting. Objective - Vital Signs Vital signs: Vital Signs Temp 98.4 F 11/08/19 04:00 Pulse 95 11/08/19 07:00 Resp 14 11/08/19 07:00 BP 115/54 11/08/19 07:00 Pulse Ox 95 11/08/19 07:00 Intake & Output 11/07/19 11/08/19 11/08/19 18:59 06:59 18:59 Intake Total 896.804 635.459 61.076 Output Total 1370 1315 30 Balance -473.196 -679.541 31.076 Weight 83.5 kg Intake: IV 850 600 50 Dextrose 5% in Water 1, 750 000 ml @ 75 mls/hr IV . [id number] [facility] Rx#:[id number] Lactated Ringers 1,000 ml 100 600 50 @ 50 mls/hr IV .Q20H [facility] Rx#:[id number] Intake, IV Titration 46.804 35.459 11.076 Amount Insulin Regular 100 unit 46.804 35.459 11.076 In Sodium Chloride 0.9% 100 ml @ Per Protocol IV .Q0M [facility] Rx#:[id number] Output: Urine 570 515 30 Stool 800 800 Other: Voiding Method Indwelling Catheter Indwelling Catheter ABP, PAP, CO, CI - Last Documented Arterial Blood Pressure 145/58 - Exam Abdomen: Soft, mild distention, nontender - Labs CBC & Chem 7: 11/08/19 05:16 11/08/19 05:16 Labs: Abnormal Lab Results - Last 24 Hours (Table) 11/07/19 11/07/19 11/07/19 Range/Units 11:25 13:35 14:58 WBC (3.8-10.6) k/uL RBC (4.30-5.90) m/uL Hgb (13.0-17.5) gm/dL Hct (39.0-53.0) % MCV (80.0-100.0) fL MCHC (31.0-37.0) g/dL Plt Count (150-450) k/uL Neutrophils # (1.3-7.7) k/uL Chloride (98-107) mmol/L Carbon Dioxide (22-30) mmol/L Glucose (74-99) mg/dL POC Glucose (mg/dL) 167 H 139 H 135 H (75-99) mg/dL Calcium (8.4-10.2) mg/dL 11/07/19 11/07/19 11/07/19 Range/Units 16:33 18:04 21:52 WBC (3.8-10.6) k/uL RBC (4.30-5.90) m/uL Hgb (13.0-17.5) gm/dL Hct (39.0-53.0) % MCV (80.0-100.0) fL MCHC (31.0-37.0) g/dL Plt Count (150-450) k/uL Neutrophils # (1.3-7.7) k/uL Chloride (98-107) mmol/L Carbon Dioxide (22-30) mmol/L Glucose (74-99) mg/dL POC Glucose (mg/dL) 116 H 116 H 155 H (75-99) mg/dL Calcium (8.4-10.2) mg/dL 11/07/19 11/08/19 11/08/19 Range/Units 23:23 01:59 03:29 WBC (3.8-10.6) k/uL RBC (4.30-5.90) m/uL Hgb (13.0-17.5) gm/dL Hct (39.0-53.0) % MCV (80.0-100.0) fL MCHC (31.0-37.0) g/dL Plt Count (150-450) k/uL Neutrophils # (1.3-7.7) k/uL Chloride (98-107) mmol/L Carbon Dioxide (22-30) mmol/L Glucose (74-99) mg/dL POC Glucose (mg/dL) 177 H 121 H 133 H (75-99) mg/dL Calcium (8.4-10.2) mg/dL 11/08/19 11/08/19 11/08/19 Range/Units 05:07 05:16 05:16 WBC 13.3 H (3.8-10.6) k/uL RBC 2.63 L (4.30-5.90) m/uL Hgb 8.3 L (13.0-17.5) gm/dL Hct 27.3 L (39.0-53.0) % MCV 104.0 H (80.0-100.0) fL MCHC 30.5 L (31.0-37.0) g/dL Plt Count 910 H (150-450) k/uL Neutrophils # 11.0 H (1.3-7.7) k/uL Chloride 110 H (98-107) mmol/L Carbon Dioxide 20 L (22-30) mmol/L Glucose 181 H (74-99) mg/dL POC Glucose (mg/dL) 200 H (75-99) mg/dL Calcium 7.6 L (8.4-10.2) mg/dL 11/08/19 11/08/19 11/08/19 Range/Units 07:06 08:11 09:21 WBC (3.8-10.6) k/uL RBC (4.30-5.90) m/uL Hgb (13.0-17.5) gm/dL Hct (39.0-53.0) % MCV (80.0-100.0) fL MCHC (31.0-37.0) g/dL Plt Count (150-450) k/uL Neutrophils # (1.3-7.7) k/uL Chloride (98-107) mmol/L Carbon Dioxide (22-30) mmol/L Glucose (74-99) mg/dL POC Glucose (mg/dL) 197 H 175 H 213 H (75-99) mg/dL Calcium (8.4-10.2) mg/dL 11/08/19 Range/Units 10:13 WBC (3.8-10.6) k/uL RBC (4.30-5.90) m/uL Hgb (13.0-17.5) gm/dL Hct (39.0-53.0) % MCV (80.0-100.0) fL MCHC (31.0-37.0) g/dL Plt Count (150-450) k/uL Neutrophils # (1.3-7.7) k/uL Chloride (98-107) mmol/L Carbon Dioxide (22-30) mmol/L Glucose (74-99) mg/dL POC Glucose (mg/dL) 189 H (75-99) mg/dL Calcium (8.4-10.2) mg/dL Microbiology - Last 24 Hours (Table) 11/05/19 10:30 Stool Culture - Final Stool [place] albicans 11/04/19 20:24 Blood Culture - Preliminary Blood No Growth after 72 hours 11/05/19 12:50 Catheter Tip Culture - Final Catheter Tip 11/05/19 12:50 Catheter Tip Culture - Final Catheter Tip 11/07/19 04:21 Gram Stain - Preliminary Sputum Assessment and Plan (1) Dynamic ileus Narrative/Plan: Patient's diarrhea is persisting. Monitor change in tube feeds. Denies abdominal pain. Keep nasogastric tube in place for the administration of supplemental feeds. Current Visit: Yes Status: Acute Code(s): K56.7 - ILEUS, UNSPECIFIED SNOMED Code(s): 02236440
[2019-11-08 11:24] LABS: Glucose,Whole Blood 179 mg/dL (75-99)
[2019-11-08 11:58] LABS: Glucose,Whole Blood 166 mg/dL (75-99)
[2019-11-08] MEDS: SODIUM CHLORIDE 0.9% 500 ML 500 ML IV SCH (12:05)
--- NOTE | 2019-11-08 12:49 | PN ---
PROGRESS NOTE Patient is seen for followup for acute kidney injury. The patient is doing fairly well. He is currently lying in bed. He is comfortable. He is not in any acute distress. Blood pressure was 111/55, heart rate 89 per minute, he is afebrile. Examination of the heart S1, S2. Examination of the lungs, decreased breath sounds at bases. Abdomen is soft, nontender. Examination of lower extremities shows no significant edema. LAB: Show sodium 140, potassium 4.0, chloride 110, BUN 15, serum creatinine 0.9, hemoglobin 8.3 g/dL. ASSESSMENT: 1. Acute kidney injury, currently improved. The etiology was acute tubular necrosis and intervascular volume depletion. 2. Possible chronic kidney disease, stage 3. Previous creatinine 1.2-1.5 July of 2018, most likely secondary to nephrosclerosis. 3. Severe metabolic acidosis secondary to diabetic ketoacidosis. 4. Diabetic ketoacidosis, maintained on insulin drip. 5. Possible anoxic brain injury. 6. Possible pneumonia status post antibiotics. PLAN: May continue low-dose BRIDGETT inhibitors. Continue off IV fluids and diuretics for now. Repeat chest x-ray in a.m. MMODL / IJN: [id number] /
--- NOTE | 2019-11-08 13:12 | P.PN ---
Subjective Progress Note Date: 11/08/19 Principal diagnosis: Hypovolemic shock, small bowel ileus/obstruction, right lower lobe pneumonia The patient is seen today 11/08/2019 in follow-up in the intensive care unit. He is currently awake and alert following simple commands. Speech of less garbled today compared to yesterday. Easier to understand. He did however fail a swallow evaluation. His tube feeds have been on hold due to questionable osmotic diarrhea which did improve. Dietary working on a different formula. He remains on lactated Ringer's at 50 MLS per hour. Insulin drip at 3 units per hour. Maintain O2 saturations in the 90s on 2 L/m per nasal cannula. Sputum, urine and stool cultures all positive for Layne. Stool lactoferrin was positive. C. difficile screen was negative. White count 13.3. Hemoglobin 8.3. Platelet count 910,000. Sodium 140. Potassium 4.0. Bicarb 20. Creatinine 0.91. Glucose 166. Chest x-ray revealed stable findings, low lung volumes and mild central venous congestion with patchy bibasilar atelectasis. Objective - Vital Signs Vital signs: Vital Signs Temp 98.3 F 11/08/19 08:00 Pulse 85 11/08/19 10:00 Resp 15 11/08/19 10:00 BP 114/54 11/08/19 10:00 Pulse Ox 94 L 11/08/19 10:00 Intake & Output 11/07/19 11/08/19 11/08/19 18:59 06:59 18:59 Intake Total 896.804 635.459 219.542 Output Total 1370 1315 140 Balance -473.196 -679.541 79.542 Weight 83.5 kg Intake: IV 850 600 200 Dextrose 5% in Water 1, 750 000 ml @ 75 mls/hr IV . [id number] IN[facility] Rx#:[id number] Lactated Ringers 1,000 ml 100 600 200 @ 50 mls/hr IV .Q20H IN[facility] Rx#:[id number] Intake, IV Titration 46.804 35.459 19.542 Amount Insulin Regular 100 unit 46.804 35.459 19.542 In Sodium Chloride 0.9% 100 ml @ Per Protocol IV .Q0M INDU Rx#:[id number] Output: Urine 570 515 140 Stool 800 800 Other: Voiding Method Indwelling Catheter Indwelling Catheter ABP, PAP, CO, CI - Last Documented Arterial Blood Pressure 145/58 - Exam GENERAL EXAM: Alert, 79-year-old male patient, on 2 L, with NG tube in place and tube feedings are currently on hold, speech is less garbled, and is actually understandable, failed swallow evaluation, follows basic commands HEAD: Normocephalic/atraumatic. EYES: Normal reaction of pupils, equal size. Conjunctiva pink, sclera white. NOSE: Clear with pink turbinates. THROAT: No erythema or exudates. NECK: No masses, no JVD, no thyroid enlargement, no adenopathy. CHEST: No chest wall deformity. Symmetrical expansion. LUNGS: Equal air entry with bilateral scattered rhonchi. CVS: Irregular rate and rhythm, normal S1 and S2, no gallops, no murmurs, no rubs ABDOMEN: Soft, nontender, slightly more distended on today's exam, but nontender No hepatosplenomegaly, normal bowel sounds, no guarding or rigidity. EXTREMITIES: No clubbing, 1+ edema in upper extremities, mild pretibial edema, no cyanosis, 2+ pulses and upper and lower extremities. MUSCULOSKELETAL: Muscle strength and tone normal. SPINE: No scoliosis or deformity SKIN: No rashes CENTRAL NERVOUS SYSTEM: Alert, confused. No focal deficits, tone is normal in all 4 extremities. - Labs CBC & Chem 7: 11/08/19 05:16 11/08/19 05:16 Labs: Abnormal Lab Results - Last 24 Hours (Table) 11/07/19 11/07/19 11/07/19 Range/Units 13:35 14:58 16:33 WBC (3.8-10.6) k/uL RBC (4.30-5.90) m/uL Hgb (13.0-17.5) gm/dL Hct (39.0-53.0) % MCV (80.0-100.0) fL MCHC (31.0-37.0) g/dL Plt Count (150-450) k/uL Neutrophils # (1.3-7.7) k/uL Chloride (98-107) mmol/L Carbon Dioxide (22-30) mmol/L Glucose (74-99) mg/dL POC Glucose (mg/dL) 139 H 135 H 116 H (75-99) mg/dL Calcium (8.4-10.2) mg/dL 11/07/19 11/07/19 11/07/19 Range/Units 18:04 21:52 23:23 WBC (3.8-10.6) k/uL RBC (4.30-5.90) m/uL Hgb (13.0-17.5) gm/dL Hct (39.0-53.0) % MCV (80.0-100.0) fL MCHC (31.0-37.0) g/dL Plt Count (150-450) k/uL Neutrophils # (1.3-7.7) k/uL Chloride (98-107) mmol/L Carbon Dioxide (22-30) mmol/L Glucose (74-99) mg/dL POC Glucose (mg/dL) 116 H 155 H 177 H (75-99) mg/dL Calcium (8.4-10.2) mg/dL 11/08/19 11/08/19 11/08/19 Range/Units 01:59 03:29 05:07 WBC (3.8-10.6) k/uL RBC (4.30-5.90) m/uL Hgb (13.0-17.5) gm/dL Hct (39.0-53.0) % MCV (80.0-100.0) fL MCHC (31.0-37.0) g/dL Plt Count (150-450) k/uL Neutrophils # (1.3-7.7) k/uL Chloride (98-107) mmol/L Carbon Dioxide (22-30) mmol/L Glucose (74-99) mg/dL POC Glucose (mg/dL) 121 H 133 H 200 H (75-99) mg/dL Calcium (8.4-10.2) mg/dL 11/08/19 11/08/19 11/08/19 Range/Units 05:16 05:16 07:06 WBC 13.3 H (3.8-10.6) k/uL RBC 2.63 L (4.30-5.90) m/uL Hgb 8.3 L (13.0-17.5) gm/dL Hct 27.3 L (39.0-53.0) % MCV 104.0 H (80.0-100.0) fL MCHC 30.5 L (31.0-37.0) g/dL Plt Count 910 H (150-450) k/uL Neutrophils # 11.0 H (1.3-7.7) k/uL Chloride 110 H (98-107) mmol/L Carbon Dioxide 20 L (22-30) mmol/L Glucose 181 H (74-99) mg/dL POC Glucose (mg/dL) 197 H (75-99) mg/dL Calcium 7.6 L (8.4-10.2) mg/dL 11/08/19 11/08/19 11/08/19 Range/Units 08:11 09:21 10:13 WBC (3.8-10.6) k/uL RBC (4.30-5.90) m/uL Hgb (13.0-17.5) gm/dL Hct (39.0-53.0) % MCV (80.0-100.0) fL MCHC (31.0-37.0) g/dL Plt Count (150-450) k/uL Neutrophils # (1.3-7.7) k/uL Chloride (98-107) mmol/L Carbon Dioxide (22-30) mmol/L Glucose (74-99) mg/dL POC Glucose (mg/dL) 175 H 213 H 189 H (75-99) mg/dL Calcium (8.4-10.2) mg/dL 11/08/19 11/08/19 Range/Units 11:23 11:57 WBC (3.8-10.6) k/uL RBC (4.30-5.90) m/uL Hgb (13.0-17.5) gm/dL Hct (39.0-53.0) % MCV (80.0-100.0) fL MCHC (31.0-37.0) g/dL Plt Count (150-450) k/uL Neutrophils # (1.3-7.7) k/uL Chloride (98-107) mmol/L Carbon Dioxide (22-30) mmol/L Glucose (74-99) mg/dL POC Glucose (mg/dL) 179 H 166 H (75-99) mg/dL Calcium (8.4-10.2) mg/dL Microbiology - Last 24 Hours (Table) 05/29/20 04:21 Gram Stain - Preliminary Sputum Sputum Culture - Preliminary Layne albicans 11/05/19 10:30 Stool Culture - Final Stool Layne albicans 11/04/19 20:24 Blood Culture - Preliminary Blood No Growth after 72 hours 11/05/19 12:50 Catheter Tip Culture - Final Catheter Tip 11/05/19 12:50 Catheter Tip Culture - Final Catheter Tip Assessment and Plan Assessment: #1. Acute hypoxic respiratory failure secondary to hypovolemic and septic shock, patient was intubated on 10/22/2019, and weaned and extubated on 11/04/2019 #2. Acute abdominal sepsis, small bowel ileus/obstruction, remains on Zosyn and Flagyl. Resolved. #3. Possible right lower lobe pneumonia, hospital-acquired or could be aspirati on related, patient completed a course of Zosyn, Flagyl and did receive vancomycin, improved #4. Acute hyperosmolar nonketotic diabetic syndrome with profound hypovolemia and volume depletion/dehydration, improved #5. Acute kidney injury secondary to hypovolemia and possible septic shock with acute tubular necrosis. Resolved #6. Altered mental status on presentation secondary to hyperosmolar nonketotic state. Mental status is improved, although patient remains confused, but alert, and following basic commands #7. History of Alzheimer's dementia #8. Type 2 diabetes #9. Pseudohyponatremia on presentation secondary to severe hyperglycemia. Resolved #10. Benign essential hypertension #11. Peripheral vessel occlusive disease mostly involving lower extremities. #12. History of 4.6 cm distal abdominal aortic aneurysm and previous iliac stent the graft placement. #13. Acute shock liver secondary to hypotension on presentation. Improving. #14. History of ischemic cardiomyopathy and LV dysfunction, ejection fraction of 30%. #15. Severe lactic acidosis on presentation most likely secondary to abdominal sepsis and ischemic bowel, significantly improved #16. Coma, resolved #17. Large volume liquid diarrhea, C. diff negative. Suspect osmotic diarrhea as it did improve after holding tube feedings. #18. Possibility of persistent mid to distal small bowel obstruction seen on the KUB abdomen on 11/05/2019, surgical services are following. Plan: The patient was seen and evaluated by Dr. Garcia Chest x-ray and labs reviewed Reconsult dietary for other to be formulations The patient failed a swallow evaluation We'll continue to follow make further recommendations based on his clinical status He is a DO NOT RESUSCITATE/DO NOT INTUBATE CODE STATUS I, the cosigning physician, performed a history & physical examination of the patient. Lungs sounds with few scattered rhonchi. Maintaining good O2 saturations in the 90s on 2 L/m per nasal cannula. I discussed the assessment and plan of care with my nurse practitioner, Bing Cota. I attest to the above note as dictated by her.
[2019-11-08 13:15] LABS: Glucose,Whole Blood 181 mg/dL (75-99)
[2019-11-08 13:15] LABS: Glucose,Whole Blood 210 mg/dL (75-99)
[2019-11-08 14:14] LABS: Glucose,Whole Blood 186 mg/dL (75-99)
[2019-11-08 16:22] LABS: Glucose,Whole Blood 179 mg/dL (75-99)
[2019-11-08 16:54] LABS: Glucose,Whole Blood 200 mg/dL (75-99)
[2019-11-08 18:09] LABS: Glucose,Whole Blood 201 mg/dL (75-99)
[2019-11-08] MEDS: LACTATED RINGERS 1,000 ML IV SCH (18:15)
[2019-11-08 18:56] LABS: Glucose,Whole Blood 201 mg/dL (75-99)
[2019-11-08] MEDS: ACETAMINOPHEN TAB 325 MG TAB PO PRN (19:50)
[2019-11-08 20:46] LABS: Glucose,Whole Blood 219 mg/dL (75-99)
--- NOTE | 2019-11-08 21:57 | P.PN ---
Subjective Progress Note Date: 11/08/19 Principal diagnosis: Ileus, acute diarrhea Patient is seen lying in bed today. Nasogastric tube feeds still being held, with plan to resume alternate to feed at lower rate today. Objective - Vital Signs Vital signs: Vital Signs Temp 98.0 F 11/08/19 12:00 Pulse 83 11/08/19 13:00 Resp 24 11/08/19 13:00 BP 113/57 11/08/19 13:00 Pulse Ox 95 11/08/19 13:00 Intake & Output 11/07/19 11/08/19 11/08/19 18:59 06:59 18:59 Intake Total 896.804 635.459 519.542 Output Total 1370 1315 820 Balance -473.196 -679.541 -300.458 Weight 83.5 kg 83.5 kg Intake: IV 850 600 500 Dextrose 5% in Water 1, 750 000 ml @ 75 mls/hr IV . [id number] IN[facility] Rx#:[id number] Lactated Ringers 1,000 ml 100 600 500 @ 50 mls/hr IV .Q20H IN[facility] Rx#:[id number] Intake, IV Titration 46.804 35.459 19.542 Amount Insulin Regular 100 unit 46.804 35.459 19.542 In Sodium Chloride 0.9% 100 ml @ Per Protocol IV .Q0M IN[facility] Rx#:[id number] Output: Urine 570 515 420 Stool 800 800 400 Other: Voiding Method Indwelling Catheter Indwelling Catheter Indwelling Catheter ABP, PAP, CO, CI - Last Documented Arterial Blood Pressure 145/58 - Exam On physical examination, patient appears comfortable in no apparent distress. HEAD: Normocephalic, atraumatic. EYES: No scleral icterus. No conjunctival injection. MOUTH: No lesions, tongue midline. NECK: Trachea midline, no gross abnormalities. ABDOMEN: Soft, moderately distended. Bowel sounds are positive. No organomegaly. No guarding or rigidity. EXTREMITIES: No pedal edema. SKIN: No rashes, no jaundice. NEUROLOGIC: Alert and oriented only to person. - Labs CBC & Chem 7: 11/08/19 05:16 11/08/19 05:16 Labs: Abnormal Lab Results - Last 24 Hours (Table) 11/07/19 11/07/19 11/07/19 Range/Units 14:58 16:33 18:04 WBC (3.8-10.6) k/uL RBC (4.30-5.90) m/uL Hgb (13.0-17.5) gm/dL Hct (39.0-53.0) % MCV (80.0-100.0) fL MCHC (31.0-37.0) g/dL Plt Count (150-450) k/uL Neutrophils # (1.3-7.7) k/uL Chloride (98-107) mmol/L Carbon Dioxide (22-30) mmol/L Glucose (74-99) mg/dL POC Glucose (mg/dL) 135 H 116 H 116 H (75-99) mg/dL Calcium (8.4-10.2) mg/dL 11/07/19 11/07/19 11/08/19 Range/Units 21:52 23:23 01:59 WBC (3.8-10.6) k/uL RBC (4.30-5.90) m/uL Hgb (13.0-17.5) gm/dL Hct (39.0-53.0) % MCV (80.0-100.0) fL MCHC (31.0-37.0) g/dL Plt Count (150-450) k/uL Neutrophils # (1.3-7.7) k/uL Chloride (98-107) mmol/L Carbon Dioxide (22-30) mmol/L Glucose (74-99) mg/dL POC Glucose (mg/dL) 155 H 177 H 121 H (75-99) mg/dL Calcium (8.4-10.2) mg/dL 11/08/19 11/08/19 11/08/19 Range/Units 03:29 05:07 05:16 WBC 13.3 H (3.8-10.6) k/uL RBC 2.63 L (4.30-5.90) m/uL Hgb 8.3 L (13.0-17.5) gm/dL Hct 27.3 L (39.0-53.0) % MCV 104.0 H (80.0-100.0) fL MCHC 30.5 L (31.0-37.0) g/dL Plt Count 910 H (150-450) k/uL Neutrophils # 11.0 H (1.3-7.7) k/uL Chloride (98-107) mmol/L Carbon Dioxide (22-30) mmol/L Glucose (74-99) mg/dL POC Glucose (mg/dL) 133 H 200 H (75-99) mg/dL Calcium (8.4-10.2) mg/dL 11/08/19 11/08/19 11/08/19 Range/Units 05:16 07:06 08:11 WBC (3.8-10.6) k/uL RBC (4.30-5.90) m/uL Hgb (13.0-17.5) gm/dL Hct (39.0-53.0) % MCV (80.0-100.0) fL MCHC (31.0-37.0) g/dL Plt Count (150-450) k/uL Neutrophils # (1.3-7.7) k/uL Chloride 110 H (98-107) mmol/L Carbon Dioxide 20 L (22-30) mmol/L Glucose 181 H (74-99) mg/dL POC Glucose (mg/dL) 197 H 175 H (75-99) mg/dL Calcium 7.6 L (8.4-10.2) mg/dL 11/08/19 11/08/19 11/08/19 Range/Units 09:21 10:13 11:23 WBC (3.8-10.6) k/uL RBC (4.30-5.90) m/uL Hgb (13.0-17.5) gm/dL Hct (39.0-53.0) % MCV (80.0-100.0) fL MCHC (31.0-37.0) g/dL Plt Count (150-450) k/uL Neutrophils # (1.3-7.7) k/uL Chloride (98-107) mmol/L Carbon Dioxide (22-30) mmol/L Glucose (74-99) mg/dL POC Glucose (mg/dL) 213 H 189 H 179 H (75-99) mg/dL Calcium (8.4-10.2) mg/dL 11/08/19 11/08/19 11/08/19 Range/Units 11:57 13:12 13:13 WBC (3.8-10.6) k/uL RBC (4.30-5.90) m/uL Hgb (13.0-17.5) gm/dL Hct (39.0-53.0) % MCV (80.0-100.0) fL MCHC (31.0-37.0) g/dL Plt Count (150-450) k/uL Neutrophils # (1.3-7.7) k/uL Chloride (98-107) mmol/L Carbon Dioxide (22-30) mmol/L Glucose (74-99) mg/dL POC Glucose (mg/dL) 166 H 210 H 181 H (75-99) mg/dL Calcium (8.4-10.2) mg/dL 11/08/19 Range/Units 14:12 WBC (3.8-10.6) k/uL RBC (4.30-5.90) m/uL Hgb (13.0-17.5) gm/dL Hct (39.0-53.0) % MCV (80.0-100.0) fL MCHC (31.0-37.0) g/dL Plt Count (150-450) k/uL Neutrophils # (1.3-7.7) k/uL Chloride (98-107) mmol/L Carbon Dioxide (22-30) mmol/L Glucose (74-99) mg/dL POC Glucose (mg/dL) 186 H (75-99) mg/dL Calcium (8.4-10.2) mg/dL Microbiology - Last 24 Hours (Table) 11/07/19 04:21 Gram Stain - Preliminary Sputum Sputum Culture - Preliminary Layne albicans 11/05/19 10:30 Stool Culture - Final Stool Layne albicans 11/04/19 20:24 Blood Culture - Preliminary Blood No Growth after 72 hours 11/05/19 12:50 Catheter Tip Culture - Final Catheter Tip 11/05/19 12:50 Catheter Tip Culture - Final Catheter Tip Assessment and Plan (1) Diarrhea Narrative/Plan: 79-year-old male with multiple medical comorbidities admitted for nonketotic hyperosmolar hyperglycemia, sepsis, ileus versus obstruction with suspicion for intra-abdominal sepsis who had severe diarrhea occur during his hospitalization. Diarrhea markedly improved after tube feeds have been held, with suspicion for diarrhea secondary to the tube feeds. Testing for Clostridium difficile has been negative on 2 occasions with decreased stool output yesterday and today. Current Visit: No Status: Acute Code(s): R19.7 - DIARRHEA, UNSPECIFIED SNOMED Code(s): 73904247 (2) Dynamic ileus Current Visit: Yes Status: Acute Code(s): K56.7 - ILEUS, UNSPECIFIED SNOMED Code(s): 42299350 Plan: Supportive care Continue ICU management Continue broad-spectrum antibiotic therapy Surgical service following Would recommend initiation of alternate tube feed formulation with plan to initiate jevity today, okay for oral feeding when patient passes swallow evaluation Continue to monitor stool output No plans for endoscopic evaluation at this time Thank you for allowing us to participate in the care of the patient
[2019-11-08 22:12] LABS: Glucose,Whole Blood 188 mg/dL (75-99)
--- NOTE | 2019-11-08 22:29 | P.PN ---
Progress Note - Text Progress Note Date: 11/08/19 Interval history: 79-year-old male with PMH of diabetes mellitus on oral hypoglycemics, con pascual presents the ED for altered mentation. Apparently, patient was visited by his nurse who noted an extremely high blood glucose which prompted his hospital visit. Patient is altered and he is unable to provide any meaningful history. Majority of documentation was obtained from chart review and discussion with his son. Apparently, patient has been confused and disoriented which is progressive ly been worsening over the past 2 weeks. His son reports that the patient fell a week ago and did not seek medical attention. Patient lives with his who is suffering from advanced Alzheimer's dementia and is currently in hospice. According to the son, patient drinks 4 L of soda on a daily basis. Son reports that patient is noncompliant with her diabetic diet. In the ED, vital signs showed a T low of 97.5 Fahrenheit, pulse of 102, tachypnea with respiratory rate of 28, BP of 85/49 and 89% on room air. CBC showed leukocytosis of 11 and MCV of 124.1. ABG showed pH of 7, pCO2 19, bica rbonate of 8. CMP showed sodium of 116, potassium of 5.7, chloride of 74, bicarbonate of 8, BUN 33, creatinine 2.18, glucose greater than 1875. Troponin was 0.881 with EKG showing sinus tachycardia. Urinalysis shows 4+ glucose and trace blood. Acetone was negative. CT brain was negative for hemorrhage but showed slightly hyperdense left MCA compared to right. Chest x-ray showed possible right lower lobe infiltrate. Patient is admitted to ICU for sepsis, troponin elevation and diabetic ketoacidosis. Intubated. Patient developed ischemic hepatitis. Sepsis. Also developed bowel obstruction-that corrected on its own. Seen by neurology. Patient's felt to have anoxic brain injury. Patient was extubated on November 01 Today-ICU. Still is the fecal management system. New 2 feeding will be started today. Patient is talking better. Still tired. NG tube in place. Weakness in all the 4 limbs. Some movement in the upper limbs. Following simple commands. Review of systems cannot be done as patient is still somewhat confused Active Medications Acetaminophen (Tylenol Tab) 650 mg PO Q6HR PRN PRN Reason: Fever and/ or Pain Last Admin: 11/08/19 19:50 Dose: 650 mg Documented by: Amiodarone HCl (Cordarone) 200 mg PO BID [facility] Last Admin: 11/08/19 19:50 Dose: 200 mg Documented by: Aspirin (Aspirin) 81 mg PO DAILY [facility] Last Admin: 11/08/19 09:27 Dose: 81 mg Documented by: Famotidine (Pepcid) 20 mg PO BID [facility] Last Admin: 11/08/19 19:50 Dose: 20 mg Documented by: Heparin Sodium (Porcine) (Heparin) 5,000 unit SQ Q8HR [facility] Last Admin: 11/08/19 18:16 Dose: 5,000 unit Documented by: Hydromorphone HCl (Dilaudid) 0.5 mg IVP Q2HR PRN PRN Reason: Pain Last Admin: 11/07/19 16:35 Dose: 0.5 mg Documented by: Insulin Human Regular 100 unit (/ Sodium Chloride) 101 mls @ 0 mls/hr IV .Q0M [facility]; Protocol Last Titration: 11/08/19 19:13 Dose: 4 unit/hr, 4.04 mls/hr Documented by: Sodium Chloride (Saline 0.9%) 500 mls @ 10 mls/hr IV .Q24H [facility] Last Admin: 11/08/19 12:05 Dose: Not Given Documented by: Lactated Ringer's (Lactated Ringers) 1,000 mls @ 50 mls/hr IV .Q20H [facility] Last Admin: 11/08/19 18:15 Dose: 50 mls/hr Documented by: Lisinopril (Zestril) 2.5 mg PO DAILY [facility] Last Admin: 11/08/19 09:27 Dose: 2.5 mg Documented by: Metoprolol Tartrate (Lopressor) 25 mg PO BID [facility] Last Admin: 11/08/19 19:50 Dose: 25 mg Documented by: Miscellaneous Information (Pneumonia Protocol Utilized) 1 each PO ONCE PRN PRN Reason: Per Protocol Miscellaneous Information (Magnesium Per Protocol) 1 each MISCELLANE DAILY PRN; Protocol PRN Reason: Per Protocol Miscellaneous Information (Phosphorus Per Protocol) 1 each MISCELLANE DAILY PRN; Protocol PRN Reason: Per Protocol Miscellaneous Information (Potassium Per Protocol) 1 each MISCELLANE DAILY PRN; Protocol PRN Reason: Per Protocol Naloxone HCl (Narcan) 0.2 mg IV Q2M PRN PRN Reason: Opioid Reversal Nystatin (Mycostatin Oral Susp) 500,000 unit PO QID [facility] Last Admin: 11/08/19 19:51 Dose: 500,000 unit Documented by: On examination: VITAL SIGNS: 98, 80, 23, 108/58, 95% GENERAL APPEARANCE: laying in bed, more awake today, speech is improving HEENT: Normal external appearance of nose and ear. , NG tube. Oral cavity deposits EYES: Pupils equal. Conjunctiva normal. NECK: JVD unable to assess. Mass not palpable. RESPIRATORY: Respiratory effort increased. Lungs -decreased breath sounds CARDIOVASCULAR: First and second sounds normal. No edema. ABDOMEN: Soft. Liver and spleen not palpable. No tenderness. No mass palpable. PSYCHIATRY: Patient more awake today NEUROLOGICAL: Speech is more clear today. Some movement of the upper extremity. Less so in the lower extremity... INVESTIGATIONS, reviewed in the clinical context: White count 13.3 hemoglobin 8.3 platelets 910 potassium 4.0 crit 0.91 Previous testing: White count 11 hemoglobin 13.7 platelets 383 Sodium 116, bicarb 8, bun 33, creatinine 2.18 glucose 1875 troponin I 0.88 1 Rusty-19 PCR-not detected computed tomography scan of the brain without contrast-no acute degenerative changes Ultrasound kidney-limited exam 2-D echocardiogram-EF 30-35%, anteroseptal apical hypokinesia AST 3453, ALT 1264, computed tomography scan of the abdomen and pelvis without contrast-dilated multiple loops of small bowel some free fluid in the paracolic gutter bilateral lower lobe pulmonary infiltrates, fusiform 4.4 cm lower abdominal aortic aneurysm with aortoiliac endograft multiple diverticula of the sigmoid colon. Mild wall thickening of the ascending colon. Blood cultures from October 20-negative Abdominal x-ray-October 25--contrast has passed through to thecolon EEG suggestive of encephalopathy, computed tomography scan of the brain-on October 28-chronic changes Assessment: -acute nonketotic hyperosmolar diabetes with severe hyperglycemia, POA -Acute small bowel obstruction, and distal jejunal clinically improved, NG tube suction discontinued.- tube feeding started -Acute hypoxic respiratory failure requiring mechanical ventilator extubated on November 01 -Acute metabolic encephalopathy-improving -Alzheimer's dementia -Pseudohyponatremia from severe hyperglycemia -4.4 cm distal abdominal aortic aneurysm with the endoluminal stent graft -Peripheral arterial disease -Acute shock liver secondary to hypotensive-corrected -Chronic congestive heart failure from systolic dysfunction EF 30-35% -Sepsis with septic shock, possible community acquired pneumonia -Non-ST elevation PR likely type II from demand ischemia, POA -Acute kidney injury likely ATN and prerenal- corrected -Possibly chronic kidney disease -essential hypertension -Pneumonia suspect gram-negative organism -New onset atrial fibrillation. -Anoxic brain slow improvement -Stage II pressure ulcer on the coccyx -Severe diarrhea-negative for C. diff. Could be from 2 feeding. Which is being changed -Bilateral critical care myopathy Plan: Patient currently on Lopressor, Zestril, lactated Ringer's 150 mL an hour, insulin drip, oral Cordarone. Different 2 feeding will be starting today.
[2019-11-09] MEDS: HEPARIN SODIUM,PORCINE 5,000 UNIT/ML 1 ML VIAL SQ SCH ×3 (00:28→16:37)
[2019-11-09 00:34] LABS: Glucose,Whole Blood 167 mg/dL (75-99)
[2019-11-09 01:30] LABS: Glucose,Whole Blood 173 mg/dL (75-99)
[2019-11-09 03:56] LABS: Glucose,Whole Blood 201 mg/dL (75-99)
[2019-11-09] MEDS: ACETAMINOPHEN TAB 325 MG TAB PO PRN ×3 (04:50→20:23)
[2019-11-09] MEDS: LACTATED RINGERS 1,000 ML IV SCH (04:51)
[2019-11-09 04:59] LABS: Basophils % (A) 0 %; Eosinophils # (A) 0.1 k/uL (0-0.7); Eosinophils % (A) 1 %; HCT 26.4 % (39.0-53.0); HGB 8.1 gm/dL (13.0-17.5); Hypochromasia Marked; Lymphocytes # (A) 1.3 k/uL (1.0-4.8); Lymphocytes % (A) 12 %; MCH 31.9 pg (25.0-35.0); MCHC 30.5 g/dL (31.0-37.0); MCV 104.5 fL (80.0-100.0); Macrocytosis Moderate; Mean Platelet Volume 7.7; Monocytes # (A) 0.6 k/uL (0-1.0); Monocytes % (A) 5 %; Neutrophils # (A) 9.2 k/uL (1.3-7.7); Neutrophils % (A) 81 %; Platelet Count 843 k/uL (150-450); Poikilocytosis Slight; RBC 2.53 m/uL (4.30-5.90); RDW 15.2 % (11.5-15.5); WBC 11.4 k/uL (3.8-10.6)
[2019-11-09 05:26] LABS: ALT 14 U/L (4-49); AST 26 U/L (17-59); African American GFR (CKD) >90 (>60 ml/min/1.73 sqM); Albumin 2.2 g/dL (3.5-5.0); Alkaline Phosphatase 171 U/L (38-126); Anion Gap 7 mmol/L; Blood Urea Nitrogen 14 mg/dL (9-20); Calcium 7.7 mg/dL (8.4-10.2); Carbon Dioxide 22 mmol/L (22-30); Chloride 110 mmol/L (98-107); Glucose 199 mg/dL (74-99); Non-African American GFR(CKD) 80 (>60 ml/min/1.73 sqM); Sodium 139 mmol/L (137-145); Total Bilirubin 0.4 mg/dL (0.2-1.3); Total Protein 5.7 g/dL (6.3-8.2)
[2019-11-09 07:00] LABS: Glucose,Whole Blood 186 mg/dL (75-99)
--- NOTE | 2019-11-09 07:03 | P.PN ---
Subjective Progress Note Date: 11/09/19 Principal diagnosis: cardiomyopathy This is an 79-year-old gentleman with extensive past medical history who was admitted to the hospital initially with intra-abdominal sepsis and small bowel obstruction and developed acute hypoxic respiratory failure. The patient was seen today, 11/09/2019. Overall he is stable. Because he was having a burst of atrial fibrillation with RVR and the night before I did increase the dose of metoprolol at home yesterday and since then he has been maintaining normal sinus mechanism. Otherwise hemodynamically he is stable. No anticoagulation in view of history of GI bleeding. Objective - Vital Signs Vital signs: Vital Signs Temp 101.2 F H 11/09/19 04:00 Pulse 93 11/09/19 07:00 Resp 30 H 11/09/19 07:00 BP 121/57 11/09/19 07:00 Pulse Ox 94 L 11/09/19 07:00 Intake & Output 11/08/19 11/09/19 11/09/19 18:59 06:59 18:59 Intake Total 729.541 874.519 75 Output Total 1445 1030 40 Balance -715.459 -155.481 35 Weight 83.5 kg Intake: IV 700 600 50 Lactated Ringers 1,000 ml 700 600 50 @ 50 mls/hr IV .Q20H INDU Rx#:[id number] Intake, IV Titration 29.541 34.519 Amount Insulin Regular 100 unit 29.541 34.519 In Sodium Chloride 0.9% 100 ml @ Per Protocol IV .Q0M INDU Rx#:[id number] Tube Feeding 180 25 Other 60 Output: Urine 645 630 40 Stool 800 400 Other: Voiding Method Indwelling Catheter Indwelling Catheter ABP, PAP, CO, CI - Last Documented Arterial Blood Pressure 145/58 - Constitutional General appearance: Present: no acute distress - Respiratory Respiratory: bilateral: CTA - Cardiovascular Rhythm: regular Heart sounds: normal: S1, S2 - Labs CBC & Chem 7: 11/09/19 04:00 11/09/19 04:00 Labs: Abnormal Lab Results - Last 24 Hours (Table) 11/08/19 11/08/19 11/08/19 Range/Units 07:06 08:11 09:21 WBC (3.8-10.6) k/uL RBC (4.30-5.90) m/uL Hgb (13.0-17.5) gm/dL Hct (39.0-53.0) % MCV (80.0-100.0) fL MCHC (31.0-37.0) g/dL Plt Count (150-450) k/uL Neutrophils # (1.3-7.7) k/uL Chloride (98-107) mmol/L Glucose (74-99) mg/dL POC Glucose (mg/dL) 197 H 175 H 213 H (75-99) mg/dL Calcium (8.4-10.2) mg/dL Alkaline Phosphatase (38-126) U/L Total Protein (6.3-8.2) g/dL Albumin (3.5-5.0) g/dL 11/08/19 11/08/19 11/08/19 Range/Units 10:13 11:23 11:57 WBC (3.8-10.6) k/uL RBC (4.30-5.90) m/uL Hgb (13.0-17.5) gm/dL Hct (39.0-53.0) % MCV (80.0-100.0) fL MCHC (31.0-37.0) g/dL Plt Count (150-450) k/uL Neutrophils # (1.3-7.7) k/uL Chloride (98-107) mmol/L Glucose (74-99) mg/dL POC Glucose (mg/dL) 189 H 179 H 166 H (75-99) mg/dL Calcium (8.4-10.2) mg/dL Alkaline Phosphatase (38-126) U/L Total Protein (6.3-8.2) g/dL Albumin (3.5-5.0) g/dL 11/08/19 11/08/19 11/08/19 Range/Units 13:12 13:13 14:12 WBC (3.8-10.6) k/uL RBC (4.30-5.90) m/uL Hgb (13.0-17.5) gm/dL Hct (39.0-53.0) % MCV (80.0-100.0) fL MCHC (31.0-37.0) g/dL Plt Count (150-450) k/uL Neutrophils # (1.3-7.7) k/uL Chloride (98-107) mmol/L Glucose (74-99) mg/dL POC Glucose (mg/dL) 210 H 181 H 186 H (75-99) mg/dL Calcium (8.4-10.2) mg/dL Alkaline Phosphatase (38-126) U/L Total Protein (6.3-8.2) g/dL Albumin (3.5-5.0) g/dL 11/08/19 11/08/19 11/08/19 Range/Units 16:20 16:51 18:08 WBC (3.8-10.6) k/uL RBC (4.30-5.90) m/uL Hgb (13.0-17.5) gm/dL Hct (39.0-53.0) % MCV (80.0-100.0) fL MCHC (31.0-37.0) g/dL Plt Count (150-450) k/uL Neutrophils # (1.3-7.7) k/uL Chloride (98-107) mmol/L Glucose (74-99) mg/dL POC Glucose (mg/dL) 179 H 200 H 201 H (75-99) mg/dL Calcium (8.4-10.2) mg/dL Alkaline Phosphatase (38-126) U/L Total Protein (6.3-8.2) g/dL Albumin (3.5-5.0) g/dL 11/08/19 11/08/19 11/08/19 Range/Units 18:54 20:44 22:10 WBC (3.8-10.6) k/uL RBC (4.30-5.90) m/uL Hgb (13.0-17.5) gm/dL Hct (39.0-53.0) % MCV (80.0-100.0) fL MCHC (31.0-37.0) g/dL Plt Count (150-450) k/uL Neutrophils # (1.3-7.7) k/uL Chloride (98-107) mmol/L Glucose (74-99) mg/dL POC Glucose (mg/dL) 201 H 219 H 188 H (75-99) mg/dL Calcium (8.4-10.2) mg/dL Alkaline Phosphatase (38-126) U/L Total Protein (6.3-8.2) g/dL Albumin (3.5-5.0) g/dL 11/09/19 11/09/19 11/09/19 Range/Units 00:32 01:28 03:52 WBC (3.8-10.6) k/uL RBC (4.30-5.90) m/uL Hgb (13.0-17.5) gm/dL Hct (39.0-53.0) % MCV (80.0-100.0) fL MCHC (31.0-37.0) g/dL Plt Count (150-450) k/uL Neutrophils # (1.3-7.7) k/uL Chloride (98-107) mmol/L Glucose (74-99) mg/dL POC Glucose (mg/dL) 167 H 173 H 201 H (75-99) mg/dL Calcium (8.4-10.2) mg/dL Alkaline Phosphatase (38-126) U/L Total Protein (6.3-8.2) g/dL Albumin (3.5-5.0) g/dL 11/09/19 11/09/19 11/09/19 Range/Units 04:00 04:00 06:58 WBC 11.4 H (3.8-10.6) k/uL RBC 2.53 L (4.30-5.90) m/uL Hgb 8.1 L (13.0-17.5) gm/dL Hct 26.4 L (39.0-53.0) % MCV 104.5 H (80.0-100.0) fL MCHC 30.5 L (31.0-37.0) g/dL Plt Count 843 H (150-450) k/uL Neutrophils # 9.2 H (1.3-7.7) k/uL Chloride 110 H (98-107) mmol/L Glucose 199 H (74-99) mg/dL POC Glucose (mg/dL) 186 H (75-99) mg/dL Calcium 7.7 L (8.4-10.2) mg/dL Alkaline Phosphatase 171 H (38-126) U/L Total Protein 5.7 L (6.3-8.2) g/dL Albumin 2.2 L (3.5-5.0) g/dL Microbiology - Last 24 Hours (Table) 11/04/19 20:24 Blood Culture - Preliminary Blood No Growth after 96 hours 11/07/19 04:21 Gram Stain - Preliminary Sputum Sputum Culture - Preliminary Layne albicans 11/05/19 10:30 Stool Culture - Final Stool Layne albicans Assessment and Plan Assessment: assessment #1 acute hypoxic respiratory failure which has improved #2 paroxysmal atrial fibrillation #3 severe cardiomyopathy #4 peripheral arterial disease #5 multiple comorbid conditions Plan #1 continue the current medical regimen including the current dose of amiodarone #2 continue the current dose of metoprolol #3 follow-up with the patient
[2019-11-09] MEDS: INSULIN REGULAR 100 UNIT in SODIUM CHLORIDE 0.9% 100 ML IV SCH (07:05)
--- NOTE | 2019-11-09 07:25 | XR ---
EXAMINATION TYPE: XR chest 1V portable DATE OF EXAM: 11/09/2019 COMPARISON: 11/08/2019 HISTORY: Shortness of breath TECHNIQUE: Single frontal view of the chest is obtained. FINDINGS: Enteric tube is again appropriately placed. Rounded right infrahilar opacity remains. Righ t basilar consolidation and linear left platelike atelectasis are stable. Chronic interstitial promin ence throughout the lungs. Diffuse osseous demineralization. Trace pleural effusions blunt the costop hrenic angles. Stable size of the cardiomediastinal silhouette. Partially visualized abdominal aortic stent graft. IMPRESSION: Stable right basilar consolidation and left basilar atelectasis. Rounded density in the right infrahilar region also appears stable could represent pulmonary artery hypertension, atelectasi s or pulmonary nodule. Follow-up to resolution.
[2019-11-09 08:00] LABS: Glucose,Whole Blood 128 mg/dL (75-99)
[2019-11-09] MEDS: FAMOTIDINE 20 MG TAB PO SCH ×2 (08:50→20:07)
[2019-11-09] MEDS: NYSTATIN 100,000 UNIT/ML SUSP 500,000 UNIT/5 ML CUP PO SCH ×4 (08:50→20:07)
[2019-11-09] MEDS: AMIODARONE 200 MG TAB PO SCH ×2 (08:50→20:07)
[2019-11-09] MEDS: ASPIRIN 81 MG PO SCH (08:50)
[2019-11-09] MEDS: METOPROLOL TARTRATE 25 MG TAB PO SCH ×2 (08:50→20:07)
[2019-11-09] MEDS: LISINOPRIL 2.5 MG TAB PO SCH (08:51)
[2019-11-09 09:13] LABS: Glucose,Whole Blood 182 mg/dL (75-99)
[2019-11-09 09:55] LABS: Glucose,Whole Blood 187 mg/dL (75-99)
[2019-11-09 11:08] LABS: Glucose,Whole Blood 206 mg/dL (75-99)
[2019-11-09 12:00] LABS: Glucose,Whole Blood 195 mg/dL (75-99)
--- NOTE | 2019-11-09 12:34 | P.PN ---
Subjective Progress Note Date: 11/09/19 Principal diagnosis: Hypovolemic shock, small bowel ileus/obstruction, right lower lobe pneumonia The patient is seen today 11/09/2019 in follow-up in the intensive care unit. He is currently resting fairly comfortably in bed. He is down to 2 L/m per nasal cannula and maintaining O2 saturations in the 90s. Chest x-ray continued to show shows stable right basilar consolidation left basilar atelectasis. Rounded density in the right infrahilar appears stable. Possible pulmonary artery hypertension, atelectasis or pulmonary nodule. Follow-up sputum culture positive for Layne only. The patient is having significant oral thrush. Stool and urine cultures are positive for Layne as well. White count 11.4. Hemoglobin 8.1. Platelet 843. Sodium 139. Potassium 4.0. Creatinine 0.90. Glucose 195. He remains on insulin drip at 3.5 units per hour. Lactated Ringer 's at 50 MLS per hour. His feedings have been changed to Jevity 1.5 currently at 35 with a goal of 55. He continues to attempt currently 101.1 axillary. Catheter tip cultures reveal no growth. Repeat blood cultures revealed no growth. Not currently on antibiotics. Objective - Vital Signs Vital signs: Vital Signs Temp 100.2 F H 11/09/19 12:00 Pulse 86 11/09/19 12:00 Resp 24 11/09/19 12:00 BP 100/49 11/09/19 12:00 Pulse Ox 95 11/09/19 12:00 Intake & Output 11/08/19 11/09/19 11/09/19 18:59 06:59 18:59 Intake Total 729.541 874.519 566.751 Output Total 1445 1030 295 Balance -715.459 -155.481 271.751 Weight 83.5 kg Intake: IV 700 600 300 Lactated Ringers 1,000 ml 700 600 300 @ 50 mls/hr IV .Q20H INDU Rx#:[id number] Intake, IV Titration 29.541 34.519 6.751 Amount Insulin Regular 100 unit 29.541 34.519 6.751 In Sodium Chloride 0.9% 100 ml @ Per Protocol IV .Q0M INDU Rx#:[id number] Tube Feeding 180 230 Other 60 30 Output: Urine 645 630 295 Stool 800 400 Other: Voiding Method Indwelling Catheter Indwelling Catheter Indwelling Catheter ABP, PAP, CO, CI - Last Documented Arterial Blood Pressure 145/58 - Exam GENERAL EXAM: Alert, 79-year-old male patient, on 2 L, failed swallow evaluation, with NG tube in place and tube feedings are resumed with Jevity, speech is less garbled, follows basic commands HEAD: Normocephalic/atraumatic. EYES: Normal reaction of pupils, equal size. Conjunctiva pink, sclera white. NOSE: Clear with pink turbinates. THROAT: No erythema or exudates. NECK: No masses, no JVD, no thyroid enlargement, no adenopathy. CHEST: No chest wall deformity. Symmetrical expansion. LUNGS: Equal air entry with bilateral scattered rhonchi. CVS: Irregular rate and rhythm, normal S1 and S2, no gallops, no murmurs, no rubs ABDOMEN: FMS in place. Less diarrhea. soft, nontender, No hepatosplenomegaly, normal bowel sounds, no guarding or rigidity. EXTREMITIES: No clubbing, 1+ edema in upper extremities, mild pretibial edema, no cyanosis, 2+ pulses and upper and lower extremities. MUSCULOSKELETAL: Muscle strength and tone normal. SPINE: No scoliosis or deformity SKIN: No rashes CENTRAL NERVOUS SYSTEM: Alert, confused. No focal deficits, tone is normal in all 4 extremities. - Labs CBC & Chem 7: 11/09/19 04:00 11/09/19 04:00 Labs: Abnormal Lab Results - Last 24 Hours (Table) 11/08/19 11/08/19 11/08/19 Range/Units 13:12 13:13 14:12 WBC (3.8-10.6) k/uL RBC (4.30-5.90) m/uL Hgb (13.0-17.5) gm/dL Hct (39.0-53.0) % MCV (80.0-100.0) fL MCHC (31.0-37.0) g/dL Plt Count (150-450) k/uL Neutrophils # (1.3-7.7) k/uL Chloride (98-107) mmol/L Glucose (74-99) mg/dL POC Glucose (mg/dL) 210 H 181 H 186 H (75-99) mg/dL Calcium (8.4-10.2) mg/dL Alkaline Phosphatase (38-126) U/L Total Protein (6.3-8.2) g/dL Albumin (3.5-5.0) g/dL 11/08/19 11/08/19 11/08/19 Range/Units 16:20 16:51 18:08 WBC (3.8-10.6) k/uL RBC (4.30-5.90) m/uL Hgb (13.0-17.5) gm/dL Hct (39.0-53.0) % MCV (80.0-100.0) fL MCHC (31.0-37.0) g/dL Plt Count (150-450) k/uL Neutrophils # (1.3-7.7) k/uL Chloride (98-107) mmol/L Glucose (74-99) mg/dL POC Glucose (mg/dL) 179 H 200 H 201 H (75-99) mg/dL Calcium (8.4-10.2) mg/dL Alkaline Phosphatase (38-126) U/L Total Protein (6.3-8.2) g/dL Albumin (3.5-5.0) g/dL 11/08/19 11/08/19 11/08/19 Range/Units 18:54 20:44 22:10 WBC (3.8-10.6) k/uL RBC (4.30-5.90) m/uL Hgb (13.0-17.5) gm/dL Hct (39.0-53.0) % MCV (80.0-100.0) fL MCHC (31.0-37.0) g/dL Plt Count (150-450) k/uL Neutrophils # (1.3-7.7) k/uL Chloride (98-107) mmol/L Glucose (74-99) mg/dL POC Glucose (mg/dL) 201 H 219 H 188 H (75-99) mg/dL Calcium (8.4-10.2) mg/dL Alkaline Phosphatase (38-126) U/L Total Protein (6.3-8.2) g/dL Albumin (3.5-5.0) g/dL 11/09/19 11/09/19 11/09/19 Range/Units 00:32 01:28 03:52 WBC (3.8-10.6) k/uL RBC (4.30-5.90) m/uL Hgb (13.0-17.5) gm/dL Hct (39.0-53.0) % MCV (80.0-100.0) fL MCHC (31.0-37.0) g/dL Plt Count (150-450) k/uL Neutrophils # (1.3-7.7) k/uL Chloride (98-107) mmol/L Glucose (74-99) mg/dL POC Glucose (mg/dL) 167 H 173 H 201 H (75-99) mg/dL Calcium (8.4-10.2) mg/dL Alkaline Phosphatase (38-126) U/L Total Protein (6.3-8.2) g/dL Albumin (3.5-5.0) g/dL 11/09/19 11/09/19 11/09/19 Range/Units 04:00 04:00 06:58 WBC 11.4 H (3.8-10.6) k/uL RBC 2.53 L (4.30-5.90) m/uL Hgb 8.1 L (13.0-17.5) gm/dL Hct 26.4 L (39.0-53.0) % MCV 104.5 H (80.0-100.0) fL MCHC 30.5 L (31.0-37.0) g/dL Plt Count 843 H (150-450) k/uL Neutrophils # 9.2 H (1.3-7.7) k/uL Chloride 110 H (98-107) mmol/L Glucose 199 H (74-99) mg/dL POC Glucose (mg/dL) 186 H (75-99) mg/dL Calcium 7.7 L (8.4-10.2) mg/dL Alkaline Phosphatase 171 H (38-126) U/L Total Protein 5.7 L (6.3-8.2) g/dL Albumin 2.2 L (3.5-5.0) g/dL 11/09/19 11/09/19 11/09/19 Range/Units 07:57 09:12 09:52 WBC (3.8-10.6) k/uL RBC (4.30-5.90) m/uL Hgb (13.0-17.5) gm/dL Hct (39.0-53.0) % MCV (80.0-100.0) fL MCHC (31.0-37.0) g/dL Plt Count (150-450) k/uL Neutrophils # (1.3-7.7) k/uL Chloride (98-107) mmol/L Glucose (74-99) mg/dL POC Glucose (mg/dL) 128 H 182 H 187 H (75-99) mg/dL Calcium (8.4-10.2) mg/dL Alkaline Phosphatase (38-126) U/L Total Protein (6.3-8.2) g/dL Albumin (3.5-5.0) g/dL 11/09/19 11/09/19 Range/Units 11:08 11:59 WBC (3.8-10.6) k/uL RBC (4.30-5.90) m/uL Hgb (13.0-17.5) gm/dL Hct (39.0-53.0) % MCV (80.0-100.0) fL MCHC (31.0-37.0) g/dL Plt Count (150-450) k/uL Neutrophils # (1.3-7.7) k/uL Chloride (98-107) mmol/L Glucose (74-99) mg/dL POC Glucose (mg/dL) 206 H 195 H (75-99) mg/dL Calcium (8.4-10.2) mg/dL Alkaline Phosphatase (38-126) U/L Total Protein (6.3-8.2) g/dL Albumin (3.5-5.0) g/dL Microbiology - Last 24 Hours (Table) 11/07/19 04:21 Gram Stain - Final Sputum Sputum Culture - Final Layne albicans 11/04/19 20:24 Blood Culture - Preliminary Blood No Growth after 96 hours 11/05/19 10:30 Stool Culture - Final Stool Layne albicans Assessment and Plan Assessment: #1. Acute hypoxic respiratory failure secondary to hypovolemic and septic shock, patient was intubated on 10/22/2019, and weaned and extubated on 11/04/2019 #2. Acute abdominal sepsis, small bowel ileus/obstruction, completed a course of Zosyn and Flagyl. Resolved. #3. Possible right lower lobe pneumonia, hospital-acquired or could be aspiration related, patient completed a course of Zosyn, Flagyl and did receive vancomycin, stable #4. Acute hyperosmolar nonketotic diabetic syndrome with profound hypovolemia and volume depletion/dehydration, improved #5. Acute kidney injury secondary to hypovolemia and possible septic shock with acute tubular necrosis. Resolved #6. Altered mental status on presentation secondary to hyperosmolar nonketotic state. Mental status is improved, although patient remains confused, but alert, and following basic commands #7. History of Alzheimer's dementia #8. Type 2 diabetes #9. Pseudohyponatremia on presentation secondary to severe hyperglycemia. Resolved #10. Benign essential hypertension #11. Peripheral vessel occlusive disease mostly involving lower extremities. #12. History of 4.6 cm distal abdominal aortic aneurysm and previous iliac stent the graft placement. #13. Acute shock liver secondary to hypotension on presentation. Improving. #14. History of ischemic cardiomyopathy and LV dysfunction, ejection fraction of 30%. #15. Severe lactic acidosis on presentation most likely secondary to abdominal sepsis and ischemic bowel, significantly improved #16. Coma, resolved #17. Large volume liquid diarrhea, C. diff negative. Suspect osmotic diarrhea as it did improve after holding tube feedings. Jevity has now been initiated #18. Possibility of persistent mid to distal small bowel obstruction seen on the KUB abdomen on 11/05/2019, surgical services are following. #19. Layne albicans in sputum, urine, stool. #20. Ongoing febrile illness Plan: The patient was seen and evaluated by Dr. Garcia Chest x-ray and labs, cultures reviewed Add andilufungin The patient had been on Zosyn from 10/22/2019 through 11/06/2019 He has received multiple other antibiotics and antifungals this admission His overall prognosis remains quite guarded He is a DO NOT RESUSCITATE/DO NOT INTUBATE CODE STATUS We'll continue to follow and make further recommendations based on his clinical status I, the cosigning physician, performed a history & physical examination of the patient. Lungs sounds with few scattered rhonchi. Maintaining good O2 saturations in the 90s on 2 L/m per nasal cannula. I discussed the assessment and plan of care with my nurse practitioner, Bing Cota. I attest to the above note as dictated by her.
[2019-11-09 13:22] LABS: Glucose,Whole Blood 190 mg/dL (75-99)
[2019-11-09] MEDS: ANIDULAFUNGIN 100 MG in SODIUM CHLORIDE 0.9% 100 ML IVPB SCH (13:41)
[2019-11-09] MEDS: SODIUM CHLORIDE 0.9% 500 ML 500 ML IV SCH (13:42)
--- NOTE | 2019-11-09 13:55 | P.PN ---
Subjective Progress Note Date: 11/09/19 Principal diagnosis: Diarrhea Patient slightly confused. T-max last night 1 and 1.2. Slightly tachypneic. White blood cell count 11.4, hemoglobin 8.1. Tube feeds were switched to Jevity 1.5 early tolerating at 35 mL per hour. No vomiting. No elevated residuals. Objective - Vital Signs Vital signs: Vital Signs Temp 100.2 F H 11/09/19 12:00 Pulse 84 11/09/19 13:30 Resp 25 H 11/09/19 13:30 BP 91/48 11/09/19 13:30 Pulse Ox 95 11/09/19 13:30 Intake & Output 11/08/19 11/09/19 11/09/19 18:59 06:59 18:59 Intake Total 729.541 874.519 651.751 Output Total 1445 1030 370 Balance -715.459 -155.481 281.751 Weight 83.5 kg Intake: IV 700 600 350 Lactated Ringers 1,000 ml 700 600 350 @ 50 mls/hr IV .Q20H INDU Rx#:[id number] Intake, IV Titration 29.541 34.519 6.751 Amount Insulin Regular 100 unit 29.541 34.519 6.751 In Sodium Chloride 0.9% 100 ml @ Per Protocol IV .Q0M INDU Rx#:[id number] Tube Feeding 180 265 Other 60 30 Output: Urine 645 630 370 Stool 800 400 Other: Voiding Method Indwelling Catheter Indwelling Catheter Indwelling Catheter ABP, PAP, CO, CI - Last Documented Arterial Blood Pressure 145/58 - Exam Abdomen: Soft, mild distention, mild diffuse tenderness - Labs CBC & Chem 7: 11/09/19 04:00 11/09/19 04:00 Labs: Abnormal Lab Results - Last 24 Hours (Table) 11/08/19 11/08/19 11/08/19 Range/Units 14:12 16:20 16:51 WBC (3.8-10.6) k/uL RBC (4.30-5.90) m/uL Hgb (13.0-17.5) gm/dL Hct (39.0-53.0) % MCV (80.0-100.0) fL MCHC (31.0-37.0) g/dL Plt Count (150-450) k/uL Neutrophils # (1.3-7.7) k/uL Chloride (98-107) mmol/L Glucose (74-99) mg/dL POC Glucose (mg/dL) 186 H 179 H 200 H (75-99) mg/dL Calcium (8.4-10.2) mg/dL Alkaline Phosphatase (38-126) U/L Total Protein (6.3-8.2) g/dL Albumin (3.5-5.0) g/dL 11/08/19 11/08/19 11/08/19 Range/Units 18:08 18:54 20:44 WBC (3.8-10.6) k/uL RBC (4.30-5.90) m/uL Hgb (13.0-17.5) gm/dL Hct (39.0-53.0) % MCV (80.0-100.0) fL MCHC (31.0-37.0) g/dL Plt Count (150-450) k/uL Neutrophils # (1.3-7.7) k/uL Chloride (98-107) mmol/L Glucose (74-99) mg/dL POC Glucose (mg/dL) 201 H 201 H 219 H (75-99) mg/dL Calcium (8.4-10.2) mg/dL Alkaline Phosphatase (38-126) U/L Total Protein (6.3-8.2) g/dL Albumin (3.5-5.0) g/dL 11/08/19 11/09/19 11/09/19 Range/Units 22:10 00:32 01:28 WBC (3.8-10.6) k/uL RBC (4.30-5.90) m/uL Hgb (13.0-17.5) gm/dL Hct (39.0-53.0) % MCV (80.0-100.0) fL MCHC (31.0-37.0) g/dL Plt Count (150-450) k/uL Neutrophils # (1.3-7.7) k/uL Chloride (98-107) mmol/L Glucose (74-99) mg/dL POC Glucose (mg/dL) 188 H 167 H 173 H (75-99) mg/dL Calcium (8.4-10.2) mg/dL Alkaline Phosphatase (38-126) U/L Total Protein (6.3-8.2) g/dL Albumin (3.5-5.0) g/dL 11/09/19 11/09/19 11/09/19 Range/Units 03:52 04:00 04:00 WBC 11.4 H (3.8-10.6) k/uL RBC 2.53 L (4.30-5.90) m/uL Hgb 8.1 L (13.0-17.5) gm/dL Hct 26.4 L (39.0-53.0) % MCV 104.5 H (80.0-100.0) fL MCHC 30.5 L (31.0-37.0) g/dL Plt Count 843 H (150-450) k/uL Neutrophils # 9.2 H (1.3-7.7) k/uL Chloride 110 H (98-107) mmol/L Glucose 199 H (74-99) mg/dL POC Glucose (mg/dL) 201 H (75-99) mg/dL Calcium 7.7 L (8.4-10.2) mg/dL Alkaline Phosphatase 171 H (38-126) U/L Total Protein 5.7 L (6.3-8.2) g/dL Albumin 2.2 L (3.5-5.0) g/dL 11/09/19 11/09/19 11/09/19 Range/Units 06:58 07:57 09:12 WBC (3.8-10.6) k/uL RBC (4.30-5.90) m/uL Hgb (13.0-17.5) gm/dL Hct (39.0-53.0) % MCV (80.0-100.0) fL MCHC (31.0-37.0) g/dL Plt Count (150-450) k/uL Neutrophils # (1.3-7.7) k/uL Chloride (98-107) mmol/L Glucose (74-99) mg/dL POC Glucose (mg/dL) 186 H 128 H 182 H (75-99) mg/dL Calcium (8.4-10.2) mg/dL Alkaline Phosphatase (38-126) U/L Total Protein (6.3-8.2) g/dL Albumin (3.5-5.0) g/dL 11/09/19 11/09/19 11/09/19 Range/Units 09:52 11:08 11:59 WBC (3.8-10.6) k/uL RBC (4.30-5.90) m/uL Hgb (13.0-17.5) gm/dL Hct (39.0-53.0) % MCV (80.0-100.0) fL MCHC (31.0-37.0) g/dL Plt Count (150-450) k/uL Neutrophils # (1.3-7.7) k/uL Chloride (98-107) mmol/L Glucose (74-99) mg/dL POC Glucose (mg/dL) 187 H 206 H 195 H (75-99) mg/dL Calcium (8.4-10.2) mg/dL Alkaline Phosphatase (38-126) U/L Total Protein (6.3-8.2) g/dL Albumin (3.5-5.0) g/dL 11/09/19 Range/Units 13:19 WBC (3.8-10.6) k/uL RBC (4.30-5.90) m/uL Hgb (13.0-17.5) gm/dL Hct (39.0-53.0) % MCV (80.0-100.0) fL MCHC (31.0-37.0) g/dL Plt Count (150-450) k/uL Neutrophils # (1.3-7.7) k/uL Chloride (98-107) mmol/L Glucose (74-99) mg/dL POC Glucose (mg/dL) 190 H (75-99) mg/dL Calcium (8.4-10.2) mg/dL Alkaline Phosphatase (38-126) U/L Total Protein (6.3-8.2) g/dL Albumin (3.5-5.0) g/dL Microbiology - Last 24 Hours (Table) 11/07/19 04:21 Gram Stain - Final Sputum Sputum Culture - Final [place]ne albicans 11/04/19 20:24 Blood Culture - Preliminary Blood No Growth after 96 hours 11/05/19 10:30 Stool Culture - Final Stool Layne albicans Assessment and Plan (1) Dynamic ileus Narrative/Plan: Continue tube feeds at goal. Monitor for residuals. Pulmonary toilet. Patient may require PEG tube placement if family desires. Current Visit: Yes Status: Acute Code(s): K56.7 - ILEUS, UNSPECIFIED SNOMED Code(s): 88240241
[2019-11-09 14:23] LABS: Glucose,Whole Blood 143 mg/dL (75-99)
[2019-11-09 14:23] LABS: Glucose,Whole Blood 138 mg/dL (75-99)
[2019-11-09 15:24] LABS: Glucose,Whole Blood 133 mg/dL (75-99)
[2019-11-09 16:06] LABS: Glucose,Whole Blood 201 mg/dL (75-99)
[2019-11-09] MEDS: IOPAMIDOL CONTRAST (ORAL USE) VIAL PO PRN ×2 (16:27→17:40)
[2019-11-09 16:59] LABS: Glucose,Whole Blood 167 mg/dL (75-99)
[2019-11-09 18:19] LABS: Glucose,Whole Blood 210 mg/dL (75-99)
--- NOTE | 2019-11-09 18:37 | CT ---
EXAMINATION TYPE: CT abdomen pelvis wo con DATE OF EXAM: 11/09/2019 COMPARISON: 10/24/2019 HISTORY: Abdominal distention with diarrhea CT DLP: 1012.4 mGycm Automated exposure control for dose reduction was used. Images were obtained from the diaphragm to the floor the pelvis with oral contrast only. There are bilateral pleural effusions with bilateral lower lobe pulmonary airspace consolidation and atelectasis. There is no pericardial effusion. There are multiple hypodense irregular areas in the periphery of the liver that measure up to 5 cm in maximum dimension. This could be multiple infarcts. There is similar 5 x 3 cm hypodensity in the pos terior spleen. The bile ducts are not dilated. There is nasogastric tube in the stomach. There is no evidence of pancreatic mass. There are multiple small calcified gallstones. There are multiple fluid-filled distended loops of small bowel. The oral contrast extends to the ileu m. Small amount of contrast extends into the cecum at the ileocecal valve. I see no transition point. There is mild wall thickening of the sigmoid colon. 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 There is no retroperitoneal adenopathy. There is no adrenal mass. Kidneys show no hydronephrosis. There are bilateral multiple renal cortical cysts that measure up to 3 cm. Ureters are not dilated. There is abdominal ascites. There is no evidence of free air. Lumbar spine is intact. There is no com pression fracture. Posterior elements are intact. Bony pelvis is intact. There is left hip prosthesis . There is narrowing and spurring of the right hip joint. IMPRESSION: Bilateral lower lobe pulmonary airspace consolidation and atelectasis with pleural fluid slightly inc reased compared to old exam. Multiple peripheral hepatic irregular hypodensity areas suggestive of multiple infarcts appear new co mpared to old exam. Splenic hypodensity also consistent with infarct unchanged. Distended small bowel consistent with small bowel ileus unchanged. There is abdominal ascites increased compared to old exam. Mild sigmoid colon wall thickening suggest lia of nonspecific colitis unchanged.
[2019-11-09 18:54] LABS: Glucose,Whole Blood 228 mg/dL (75-99)
--- NOTE | 2019-11-09 19:19 | P.PN ---
Subjective Progress Note Date: 11/09/19 Principal diagnosis: Ileus, acute diarrhea Patient is seen lying in bed today. Nasogastric tube feeds have been restarted with alternative formulation used for which the patient is tolerating without recurrence of diarrhea. Objective - Vital Signs Vital signs: Vital Signs Temp 101.1 F H 11/09/19 09:00 Pulse 96 11/09/19 09:00 Resp 26 H 11/09/19 09:00 BP 119/58 11/09/19 09:00 Pulse Ox 94 L 11/09/19 09:00 Intake & Output 11/08/19 11/09/19 11/09/19 18:59 06:59 18:59 Intake Total 729.541 874.519 209.226 Output Total 1445 1030 75 Balance -715.459 -155.481 134.226 Weight 83.5 kg Intake: IV 700 600 100 Lactated Ringers 1,000 ml 700 600 100 @ 50 mls/hr IV .Q20H [facility] Rx#:[id number] Intake, IV Titration 29.541 34.519 4.226 Amount Insulin Regular 100 unit 29.541 34.519 4.226 In Sodium Chloride 0.9% 100 ml @ Per Protocol IV .Q0M IN[facility] Rx#:[id number] Tube Feeding 180 75 Other 60 30 Output: Urine 645 630 75 Stool 800 400 Other: Voiding Method Indwelling Catheter Indwelling Catheter Indwelling Catheter ABP, PAP, CO, CI - Last Documented Arterial Blood Pressure 145/58 - Exam On physical examination, patient appears comfortable in no apparent distress. HEAD: Normocephalic, atraumatic. EYES: No scleral icterus. No conjunctival injection. MOUTH: No lesions, tongue midline. NECK: Trachea midline, no gross abnormalities. ABDOMEN: Soft, moderately distended. Bowel sounds are positive. No organomegaly. No guarding or rigidity. EXTREMITIES: No pedal edema. SKIN: No rashes, no jaundice. NEUROLOGIC: Alert and oriented only to person. - Labs CBC & Chem 7: 11/09/19 04:00 11/09/19 04:00 Labs: Abnormal Lab Results - Last 24 Hours (Table) 11/08/19 11/08/19 11/08/19 Range/Units 10:13 11:23 11:57 WBC (3.8-10.6) k/uL RBC (4.30-5.90) m/uL Hgb (13.0-17.5) gm/dL Hct (39.0-53.0) % MCV (80.0-100.0) fL MCHC (31.0-37.0) g/dL Plt Count (150-450) k/uL Neutrophils # (1.3-7.7) k/uL Chloride (98-107) mmol/L Glucose (74-99) mg/dL POC Glucose (mg/dL) 189 H 179 H 166 H (75-99) mg/dL Calcium (8.4-10.2) mg/dL Alkaline Phosphatase (38-126) U/L Total Protein (6.3-8.2) g/dL Albumin (3.5-5.0) g/dL 11/08/19 11/08/19 11/08/19 Range/Units 13:12 13:13 14:12 WBC (3.8-10.6) k/uL RBC (4.30-5.90) m/uL Hgb (13.0-17.5) gm/dL Hct (39.0-53.0) % MCV (80.0-100.0) fL MCHC (31.0-37.0) g/dL Plt Count (150-450) k/uL Neutrophils # (1.3-7.7) k/uL Chloride (98-107) mmol/L Glucose (74-99) mg/dL POC Glucose (mg/dL) 210 H 181 H 186 H (75-99) mg/dL Calcium (8.4-10.2) mg/dL Alkaline Phosphatase (38-126) U/L Total Protein (6.3-8.2) g/dL Albumin (3.5-5.0) g/dL 11/08/19 11/08/19 11/08/19 Range/Units 16:20 16:51 18:08 WBC (3.8-10.6) k/uL RBC (4.30-5.90) m/uL Hgb (13.0-17.5) gm/dL Hct (39.0-53.0) % MCV (80.0-100.0) fL MCHC (31.0-37.0) g/dL Plt Count (150-450) k/uL Neutrophils # (1.3-7.7) k/uL Chloride (98-107) mmol/L Glucose (74-99) mg/dL POC Glucose (mg/dL) 179 H 200 H 201 H (75-99) mg/dL Calcium (8.4-10.2) mg/dL Alkaline Phosphatase (38-126) U/L Total Protein (6.3-8.2) g/dL Albumin (3.5-5.0) g/dL 11/08/19 11/08/19 11/08/19 Range/Units 18:54 20:44 22:10 WBC (3.8-10.6) k/uL RBC (4.30-5.90) m/uL Hgb (13.0-17.5) gm/dL Hct (39.0-53.0) % MCV (80.0-100.0) fL MCHC (31.0-37.0) g/dL Plt Count (150-450) k/uL Neutrophils # (1.3-7.7) k/uL Chloride (98-107) mmol/L Glucose (74-99) mg/dL POC Glucose (mg/dL) 201 H 219 H 188 H (75-99) mg/dL Calcium (8.4-10.2) mg/dL Alkaline Phosphatase (38-126) U/L Total Protein (6.3-8.2) g/dL Albumin (3.5-5.0) g/dL 11/09/19 11/09/19 11/09/19 Range/Units 00:32 01:28 03:52 WBC (3.8-10.6) k/uL RBC (4.30-5.90) m/uL Hgb (13.0-17.5) gm/dL Hct (39.0-53.0) % MCV (80.0-100.0) fL MCHC (31.0-37.0) g/dL Plt Count (150-450) k/uL Neutrophils # (1.3-7.7) k/uL Chloride (98-107) mmol/L Glucose (74-99) mg/dL POC Glucose (mg/dL) 167 H 173 H 201 H (75-99) mg/dL Calcium (8.4-10.2) mg/dL Alkaline Phosphatase (38-126) U/L Total Protein (6.3-8.2) g/dL Albumin (3.5-5.0) g/dL 11/09/19 11/09/19 11/09/19 Range/Units 04:00 04:00 06:58 WBC 11.4 H (3.8-10.6) k/uL RBC 2.53 L (4.30-5.90) m/uL Hgb 8.1 L (13.0-17.5) gm/dL Hct 26.4 L (39.0-53.0) % MCV 104.5 H (80.0-100.0) fL MCHC 30.5 L (31.0-37.0) g/dL Plt Count 843 H (150-450) k/uL Neutrophils # 9.2 H (1.3-7.7) k/uL Chloride 110 H (98-107) mmol/L Glucose 199 H (74-99) mg/dL POC Glucose (mg/dL) 186 H (75-99) mg/dL Calcium 7.7 L (8.4-10.2) mg/dL Alkaline Phosphatase 171 H (38-126) U/L Total Protein 5.7 L (6.3-8.2) g/dL Albumin 2.2 L (3.5-5.0) g/dL 11/09/19 11/09/19 11/09/19 Range/Units 07:57 09:12 09:52 WBC (3.8-10.6) k/uL RBC (4.30-5.90) m/uL Hgb (13.0-17.5) gm/dL Hct (39.0-53.0) % MCV (80.0-100.0) fL MCHC (31.0-37.0) g/dL Plt Count (150-450) k/uL Neutrophils # (1.3-7.7) k/uL Chloride (98-107) mmol/L Glucose (74-99) mg/dL POC Glucose (mg/dL) 128 H 182 H 187 H (75-99) mg/dL Calcium (8.4-10.2) mg/dL Alkaline Phosphatase (38-126) U/L Total Protein (6.3-8.2) g/dL Albumin (3.5-5.0) g/dL Microbiology - Last 24 Hours (Table) 11/07/19 04:21 Gram Stain - Final Sputum Sputum Culture - Final Layne albicans 11/04/19 20:24 Blood Culture - Preliminary Blood No Growth after 96 hours 11/05/19 10:30 Stool Culture - Final Stool Layne albicans Assessment and Plan (1) Diarrhea Narrative/Plan: 79-year-old male with multiple medical comorbidities admitted for nonketotic hyperosmolar hyperglycemia, sepsis, ileus versus obstruction with suspicion for intra-abdominal sepsis who had severe diarrhea occur during his hospitalization. Diarrhea markedly improved after tube feeds have been held, with suspicion for diarrhea secondary to the tube feeds. Testing for Clostridium difficile has been negative on 2 occasions with decreased stool output after his tube feeds were held. They were resumed with alternate formulation and the patient seems to be tolerating with no recurrence of diarrhea. Current Visit: No Status: Acute Code(s): R19.7 - DIARRHEA, UNSPECIFIED SNOMED Code(s): 64616057 (2) Dynamic ileus Current Visit: Yes Status: Acute Code(s): K56.7 - ILEUS, UNSPECIFIED SNOMED Code(s): 44971718 Plan: Supportive care Continue ICU management Continue broad-spectrum antibiotic therapy Surgical service following Tolerating alternate tube feed today with no increased diarrhea Continue to monitor stool output No plans for endoscopic evaluation at this time Thank you for allowing us to participate in the care of the patient, the GI service will stand by please call us back with any questions or concerns
[2019-11-09 20:01] LABS: Glucose,Whole Blood 194 mg/dL (75-99)
[2019-11-09] MEDS: CEFEPIME 2 GM in SODIUM CHLORIDE 0.9% 100 ML IVPB SCH (20:08)
--- NOTE | 2019-11-09 20:10 | P.PN ---
Progress Note - Text Progress Note Date: 11/09/19 Interval history: 79-year-old male with PMH of diabetes mellitus on oral hypoglycemics, con pascual presents the ED for altered mentation. Apparently, patient was visited by his nurse who noted an extremely high blood glucose which prompted his hospital visit. Patient is altered and he is unable to provide any meaningful history. Majority of documentation was obtained from chart review and discussion with his son. Apparently, patient has been confused and disoriented which is progressive ly been worsening over the past 2 weeks. His son reports that the patient fell a week ago and did not seek medical attention. Patient lives with his who is suffering from advanced Alzheimer's dementia and is currently in hospice. According to the son, patient drinks 4 L of soda on a daily basis. Son reports that patient is noncompliant with her diabetic diet. In the ED, vital signs showed a T low of 97.5 Fahrenheit, pulse of 102, tachypnea with respiratory rate of 28, BP of 85/49 and 89% on room air. CBC showed leukocytosis of 11 and MCV of 124.1. ABG showed pH of 7, pCO2 19, bica rbonate of 8. CMP showed sodium of 116, potassium of 5.7, chloride of 74, bicarbonate of 8, BUN 33, creatinine 2.18, glucose greater than 1875. Troponin was 0.881 with EKG showing sinus tachycardia. Urinalysis shows 4+ glucose and trace blood. Acetone was negative. CT brain was negative for hemorrhage but showed slightly hyperdense left MCA compared to right. Chest x-ray showed possible right lower lobe infiltrate. Patient is admitted to ICU for sepsis, troponin elevation and diabetic ketoacidosis. Intubated. Patient developed ischemic hepatitis. Sepsis. Also developed bowel obstruction-that corrected on its own. Seen by neurology. Patient's felt to have anoxic brain injury. Patient was extubated on November 01 Today-ICU. FMS in place-stool output was gone down.. On insulin drip. IV and anidulafungin started by Dr. Wilkinson today. Patient started spiking fever earlier today. Patient is more lethargic today. Review of systems cannot be done as patient is lethargic Active Medications Acetaminophen (Tylenol Tab) 650 mg PO Q6HR PRN PRN Reason: Fever and/ or Pain Last Admin: 11/09/19 10:21 Dose: 650 mg Documented by: Amiodarone HCl (Cordarone) 200 mg PO BID [facility] Last Admin: 11/09/19 08:50 Dose: 200 mg Documented by: Aspirin (Aspirin) 81 mg PO DAILY [facility] Last Admin: 11/09/19 08:50 Dose: 81 mg Documented by: Famotidine (Pepcid) 20 mg PO BID [facility] Last Admin: 11/09/19 08:50 Dose: 20 mg Documented by: Heparin Sodium (Porcine) (Heparin) 5,000 unit SQ Q8HR [facility] Last Admin: 11/09/19 16:37 Dose: 5,000 unit Documented by: Hydromorphone HCl (Dilaudid) 0.5 mg IVP Q2HR PRN PRN Reason: Pain Last Admin: 11/07/19 16:35 Dose: 0.5 mg Documented by: Insulin Human Regular 100 unit (/ Sodium Chloride) 101 mls @ 0 mls/hr IV .Q0M [facility]; Protocol Last Titration: 11/09/19 19:10 Dose: 3.5 unit/hr, 3.535 mls/hr Documented by: Sodium Chloride (Saline 0.9%) 500 mls @ 10 mls/hr IV .Q24H [facility] Last Admin: 11/09/19 13:42 Dose: Not Given Documented by: Lactated Ringer's (Lactated Ringers) 1,000 mls @ 50 mls/hr IV .Q20H [facility] Last Admin: 11/09/19 04:51 Dose: 50 mls/hr Documented by: Anidulafungin 100 mg/ Sodium (Chloride) 100 mls @ 84 mls/hr IVPB DAILY [facility] Last Admin: 11/09/19 13:41 Dose: 84 mls/hr Documented by: Cefepime HCl 2 gm/ Sodium (Chloride) 100 mls @ 200 mls/hr IVPB Q12H [facility] Lisinopril (Zestril) 2.5 mg PO DAILY [facility] Last Admin: 11/09/19 08:51 Dose: 2.5 mg Documented by: Metoprolol Tartrate (Lopressor) 25 mg PO BID [facility] Last Admin: 11/09/19 08:50 Dose: 25 mg Documented by: Miscellaneous Information (Pneumonia Protocol Utilized) 1 each PO ONCE PRN PRN Reason: Per Protocol Miscellaneous Information (Magnesium Per Protocol) 1 each MISCELLANE DAILY PRN; Protocol PRN Reason: Per Protocol Miscellaneous Information (Phosphorus Per Protocol) 1 each MISCELLANE DAILY PRN; Protocol PRN Reason: Per Protocol Miscellaneous Information (Potassium Per Protocol) 1 each MISCELLANE DAILY PRN; Protocol PRN Reason: Per Protocol Naloxone HCl (Narcan) 0.2 mg IV Q2M PRN PRN Reason: Opioid Reversal Nystatin (Mycostatin Oral Susp) 500,000 unit PO QID [facility] Last Admin: 11/09/19 17:08 Dose: 500,000 unit Documented by: On examination: VITAL SIGNS: 101.1, 96, 26, 119/58, 94% on 2 L GENERAL APPEARANCE: laying in bed, more lethargic today HEENT: Normal external appearance of nose and ear. , NG tube. Oral cavity dry EYES: Pupils equal. Conjunctiva normal. NECK: JVD unable to assess. Mass not palpable. RESPIRATORY: Respiratory effort increased. Lungs -decreased breath sounds CARDIOVASCULAR: First and second sounds normal. No edema. ABDOMEN: Soft. Liver and spleen not palpable. No tenderness. No mass palpable. PSYCHIATRY: Unable to assess patient more lethargic NEUROLOGICAL: Unable to assess more lethargic today to arousable... INVESTIGATIONS, reviewed in the clinical context: White count 11.4 hemoglobin 8.1 potassium 4 creatinine 0.90 Computed tomography scan abdomen and pelvis-November 08-bilateral lower lobe airspace consolidation slightly increased, multiple peripheral hepatic irregular hypodensity areas, splenic hypodensity unchanged, distended small bowel Previous testing: White count 11 hemoglobin 13.7 platelets 383 Sodium 116, bicarb 8, bun 33, creatinine 2.18 glucose 1875 troponin I 0.88 1 COVID-19 PCR-not detected computed tomography scan of the brain without contrast-no acute degenerative changes Ultrasound kidney-limited exam 2-D echocardiogram-EF 30-35%, anteroseptal apical hypokinesia AST 3453, ALT 1264, computed tomography scan of the abdomen and pelvis without contrast-dilated multiple loops of small bowel some free fluid in the paracolic gutter bilateral lower lobe pulmonary infiltrates, fusiform 4.4 cm lower abdominal aortic aneurysm with aortoiliac endograft multiple diverticula of the sigmoid colon. Mild wall thickening of the ascending colon. Blood cultures from October 20-negative Abdominal x-ray-October 25--contrast has passed through to thecolon EEG suggestive of encephalopathy, computed tomography scan of the brain-on October 28-chronic changes Sputum culture from November 06, stool culture from November 04, urine culture from November 03 and sputum culture from October 27 all growing Layne albicans Assessment: -acute nonketotic hyperosmolar diabetes with severe hyperglycemia, POA -Acute small bowel obstruction, and distal jejunal clinically improved, NG tube suction discontinued.- tube feeding started -Acute hypoxic respiratory failure requiring mechanical ventilator extubated on November 01 -Acute metabolic encephalopathy-improving -Alzheimer's dementia -Pseudohyponatremia from severe hyperglycemia -4.4 cm distal abdominal aortic aneurysm with the endoluminal stent graft -Peripheral arterial disease -Acute shock liver secondary to hypotensive-corrected -Chronic congestive heart failure from systolic dysfunction EF 30-35% -Sepsis with septic shock, possible community acquired pneumonia -Non-ST elevation [place] likely type II from demand ischemia, POA -Acute kidney injury likely ATN and prerenal- corrected -Possibly chronic kidney disease -essential hypertension -Pneumonia suspect gram-negative organism -New onset atrial fibrillation. -Anoxic brain slow improvement -Stage II pressure ulcer on the coccyx -Severe diarrhea-negative for C. diff. possibly from 2 feeding improved -Bilateral critical care myopathy -Patient's febrile again. Started on antifungal today November 08. Dr. Garcia. Plan: Patient started on IV antifungal Dr. Garcia. ID is consulted. Patient more lethargic. Possibly from infection. There is no started on Jevity tube feeding. Prognosis guarded.
[2019-11-09 21:03] LABS: Glucose,Whole Blood 186 mg/dL (75-99)
[2019-11-09 22:19] LABS: Glucose,Whole Blood 128 mg/dL (75-99)
[2019-11-09 22:21] LABS: Glucose,Whole Blood 127 mg/dL (75-99)
--- NOTE | 2019-11-09 22:40 | P.CONS ---
History of Present Illness - Reason for Consult Consult date: 11/09/19 Fever persistant for last 9 days Requesting physician: Kaiden Fernandes - Chief Complaint Fever and mental status changes x days - History of Present Illness Patient is 79-year-old male who presented to [facility] about 3 weeks ago apparently with elevated blood sugars and some mental status changes this patient was diagnosed with acute hypoxic respiratory failure with possible small bowel ileus and aspiration pneumonia patient was intubated from 11/08/2019 and was extubated on 11/04/2019 this patient has completed course of vancomycin Zosyn and Flagyl per pulmonary patient has been running a fever throughout his hospital stay except that he has little bit of Between 520 and 523 however since 523 the patient has been spiking fever on a daily basis of 102 to 101 F infectious disease has been consulted today with concern for his fever after 3 weeks in the hospital this patient has been patient is currently lethargic and is unable provide any history patient already remains to be poor no vomiting has been reported patient did have diarrhea for the patient did have a fecal management system in and the patient did have stool for C. difficile check on the and and those has been negative patient did have an outline of peripheral IV Zosyn has been discontinued currently did have 2 peripheral IVs and no signs of inflammation at those sites he did have a sputum done on the showing Layne albicans Eraxis has been added today per pulmonary and the patient had catheter cultures done on the 11/05/19 has been negative as well last blood culture has been on 11/04/19 which are negative so far, patient did have a deep tissue injury to his sacral area but RN mentioned no evidence of any purulent drainage or redness. Review of Systems Positive point has been mentioned in HPI complete review could not be obtained because of underlying mental status 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 years ago, AAA-extending to the iliacs measuring 4.6 cm based on the previous computed tomography scan imaging, DJD,back pain, skin cancer, History of Any Multi-Drug Resistant Organisms: None Reported Year Discovered:: None MDRO Source:: None Past Surgical History: Adenoidectomy, Joint Replacement, Tonsillectomy Additional Past Surgical History / Comment(s): left hip, left knee replaced, Past Anesthesia/Blood Transfusion Reactions: No Reported Reaction Past Psychological History: No Psychological Hx Reported Smoking Status: Former smoker Past Alcohol Use History: None Reported Past Drug Use History: None Reported - Past Family History Son(s) Additional Family Medical History / Comment(s): unable to obtain patient not go od historian Mother Additional Family Medical History / Comment(s): unable to obtain patient not a good historian Medications and Allergies Home Medications Medication Instructions Recorded Confirmed Type DULoxetine HCL [Cymbalta] 60 mg PO DAILY 05/13/18 10/21/19 History Donepezil [Aricept] 5 mg PO HS #30 tab 05/15/18 10/21/19 Rx Cholecalciferol [Vitamin D3 (25 1,000 unit PO DAILY 07/27/18 10/21/19 History Mcg = 1000 Iu)] Lisinopril-Hctz 20-12.5 mg 1 tab PO BID 07/27/18 10/21/19 History [Zestoretic 20-12.5] Pantoprazole [Protonix] 40 mg PO DAILY #30 tablet. 07/28/18 10/21/19 Rx Cyanocobalamin (Vitamin B-12) 1,000 mcg PO DAILY 10/21/19 10/21/19 History [Vitamin B-12] Diclofenac Sodium [Voltaren Gel] 2 gram TOPICAL QID 10/21/19 10/21/19 History HYDROcodone/APAP 5-325MG [[place] 1 tab PO TID PRN 10/21/19 10/21/19 History 5-325] Linagliptin [Tradjenta] 5 mg PO DAILY 10/21/19 10/21/19 History Pravastatin Sodium [Pravachol] 40 mg PO DAILY 10/21/19 10/21/19 History Zolpidem [Ambien] 5 mg PO HS PRN 10/21/19 10/21/19 History glipiZIDE [Glucotrol] 5 mg PO AC-BID 10/21/19 10/21/19 History metFORMIN HCL [metFORMIN HCL ER 500 mg PO BID 10/21/19 10/21/19 History Osmotic] Allergies Allergy/AdvReac Type Severity Reaction Status Date / Time amoxicillin [Amoxicillin] Allergy Nausea & Verified 10/21/19 20:36 Vomiting & Diarrhea morphine Allergy Unknown Verified 10/21/19 20:36 Physical Exam Vitals: Vital Signs Temp Pulse Resp BP Pulse Ox 11/09/19 15:00 89 26 H 99/45 95 11/09/19 14:30 82 25 H 102/48 95 11/09/19 14:00 81 25 H 95/45 96 11/09/19 13:30 84 25 H 91/48 95 11/09/19 13:00 85 24 90/43 96 11/09/19 12:30 80 21 97/56 96 11/09/19 12:00 100.2 F H 86 24 100/49 95 11/09/19 11:00 87 25 H 108/50 95 11/09/19 10:00 90 29 H 120/54 95 11/09/19 09:00 101.1 F H 96 26 H 119/58 94 L 11/09/19 08:00 90 26 H 121/57 95 11/09/19 07:00 93 30 H 121/57 94 L 11/09/19 06:00 88 28 H 112/53 93 L 11/09/19 05:00 92 23 116/60 95 11/09/19 04:00 101.2 F H 91 29 H 117/55 93 L 11/09/19 03:00 89 27 H 115/53 93 L 11/09/19 02:00 89 27 H 98/67 93 L 11/09/19 01:00 88 28 H 104/54 94 L 11/09/19 00:25 88 28 H 101/79 93 L 11/09/19 00:00 100.1 F H 86 22 114/54 94 L 11/08/19 23:00 87 27 H 115/56 93 L 11/08/19 22:00 83 23 110/54 95 11/08/19 21:00 78 27 H 118/57 95 11/08/19 20:00 99.7 F H 92 32 H 118/60 95 11/08/19 19:00 91 22 115/58 95 11/08/19 18:00 94 21 119/58 96 11/08/19 17:00 93 27 H 121/73 93 L Intake and Output 11/09/19 11/09/19 11/09/19 06:59 14:59 22:59 Intake Total 592.802 748.181 85.993 Output Total 830 420 50 Balance -237.198 328.181 35.993 Intake: IV 400 400 50 Lactated Ringers 1,000 ml 400 400 50 @ 50 mls/hr IV .Q20H INDU Rx#:[id number] Intake, IV Titration 27.802 18.181 0.993 Amount Insulin Regular 100 unit 27.802 18.181 0.993 In Sodium Chloride 0.9% 100 ml @ Per Protocol IV .Q0M INDU Rx#:[id number] Tube Feeding 135 300 35 Other 30 30 Output: Urine 430 420 50 Stool 400 Other: Voiding Method Indwelling Catheter Indwelling Catheter GENERAL DESCRIPTION: Elderly male lying in bed, no distress. No tachypnea or accessory muscle of respiration use. HEENT: Shows Pallor , no scleral icterus. Oral mucous membrane is dry. NECK: Trachea central, no thyromegaly. LUNGS: Unlabored breathing. Decreased breath sound at the base. No wheeze or crackle. HEART: S1, S2, regular rate and rhythm. ABDOMEN: Soft, distended and mildly tender no guarding or rigidity EXTREMITIES: No edema of feet. SKIN: No rash, no masses palpable. NEUROLOGICAL: The patient is lethargic and orientation could not be determined Results CBC & Chem 7: 11/09/19 04:00 11/09/19 04:00 Labs: Abnormal Lab Results - Last 24 Hours (Table) 11/08/19 11/08/19 11/08/19 Range/Units 16:20 16:51 18:08 WBC (3.8-10.6) k/uL RBC (4.30-5.90) m/uL Hgb (13.0-17.5) gm/dL Hct (39.0-53.0) % MCV (80.0-100.0) fL MCHC (31.0-37.0) g/dL Plt Count (150-450) k/uL Neutrophils # (1.3-7.7) k/uL Chloride (98-107) mmol/L Glucose (74-99) mg/dL POC Glucose (mg/dL) 179 H 200 H 201 H (75-99) mg/dL Calcium (8.4-10.2) mg/dL Alkaline Phosphatase (38-126) U/L Total Protein (6.3-8.2) g/dL Albumin (3.5-5.0) g/dL 11/08/19 11/08/19 11/08/19 Range/Units 18:54 20:44 22:10 WBC (3.8-10.6) k/uL RBC (4.30-5.90) m/uL Hgb (13.0-17.5) gm/dL Hct (39.0-53.0) % MCV (80.0-100.0) fL MCHC (31.0-37.0) g/dL Plt Count (150-450) k/uL Neutrophils # (1.3-7.7) k/uL Chloride (98-107) mmol/L Glucose (74-99) mg/dL POC Glucose (mg/dL) 201 H 219 H 188 H (75-99) mg/dL Calcium (8.4-10.2) mg/dL Alkaline Phosphatase (38-126) U/L Total Protein (6.3-8.2) g/dL Albumin (3.5-5.0) g/dL 11/09/19 11/09/19 11/09/19 Range/Units 00:32 01:28 03:52 WBC (3.8-10.6) k/uL RBC (4.30-5.90) m/uL Hgb (13.0-17.5) gm/dL Hct (39.0-53.0) % MCV (80.0-100.0) fL MCHC (31.0-37.0) g/dL Plt Count (150-450) k/uL Neutrophils # (1.3-7.7) k/uL Chloride (98-107) mmol/L Glucose (74-99) mg/dL POC Glucose (mg/dL) 167 H 173 H 201 H (75-99) mg/dL Calcium (8.4-10.2) mg/dL Alkaline Phosphatase (38-126) U/L Total Protein (6.3-8.2) g/dL Albumin (3.5-5.0) g/dL 11/09/19 11/09/19 11/09/19 Range/Units 04:00 04:00 06:58 WBC 11.4 H (3.8-10.6) k/uL RBC 2.53 L (4.30-5.90) m/uL Hgb 8.1 L (13.0-17.5) gm/dL Hct 26.4 L (39.0-53.0) % MCV 104.5 H (80.0-100.0) fL MCHC 30.5 L (31.0-37.0) g/dL Plt Count 843 H (150-450) k/uL Neutrophils # 9.2 H (1.3-7.7) k/uL Chloride 110 H (98-107) mmol/L Glucose 199 H (74-99) mg/dL POC Glucose (mg/dL) 186 H (75-99) mg/dL Calcium 7.7 L (8.4-10.2) mg/dL Alkaline Phosphatase 171 H (38-126) U/L Total Protein 5.7 L (6.3-8.2) g/dL Albumin 2.2 L (3.5-5.0) g/dL 11/09/19 11/09/19 11/09/19 Range/Units 07:57 09:12 09:52 WBC (3.8-10.6) k/uL RBC (4.30-5.90) m/uL Hgb (13.0-17.5) gm/dL Hct (39.0-53.0) % MCV (80.0-100.0) fL MCHC (31.0-37.0) g/dL Plt Count (150-450) k/uL Neutrophils # (1.3-7.7) k/uL Chloride (98-107) mmol/L Glucose (74-99) mg/dL POC Glucose (mg/dL) 128 H 182 H 187 H (75-99) mg/dL Calcium (8.4-10.2) mg/dL Alkaline Phosphatase (38-126) U/L Total Protein (6.3-8.2) g/dL Albumin (3.5-5.0) g/dL 11/09/19 11/09/19 11/09/19 Range/Units 11:08 11:59 13:19 WBC (3.8-10.6) k/uL RBC (4.30-5.90) m/uL Hgb (13.0-17.5) gm/dL Hct (39.0-53.0) % MCV (80.0-100.0) fL MCHC (31.0-37.0) g/dL Plt Count (150-450) k/uL Neutrophils # (1.3-7.7) k/uL Chloride (98-107) mmol/L Glucose (74-99) mg/dL POC Glucose (mg/dL) 206 H 195 H 190 H (75-99) mg/dL Calcium (8.4-10.2) mg/dL Alkaline Phosphatase (38-126) U/L Total Protein (6.3-8.2) g/dL Albumin (3.5-5.0) g/dL 11/09/19 11/09/19 11/09/19 Range/Units 14:20 14:21 15:21 WBC (3.8-10.6) k/uL RBC (4.30-5.90) m/uL Hgb (13.0-17.5) gm/dL Hct (39.0-53.0) % MCV (80.0-100.0) fL MCHC (31.0-37.0) g/dL Plt Count (150-450) k/uL Neutrophils # (1.3-7.7) k/uL Chloride (98-107) mmol/L Glucose (74-99) mg/dL POC Glucose (mg/dL) 138 H 143 H 133 H (75-99) mg/dL Calcium (8.4-10.2) mg/dL Alkaline Phosphatase (38-126) U/L Total Protein (6.3-8.2) g/dL Albumin (3.5-5.0) g/dL 11/09/19 Range/Units 16:03 WBC (3.8-10.6) k/uL RBC (4.30-5.90) m/uL Hgb (13.0-17.5) gm/dL Hct (39.0-53.0) % MCV (80.0-100.0) fL MCHC (31.0-37.0) g/dL Plt Count (150-450) k/uL Neutrophils # (1.3-7.7) k/uL Chloride (98-107) mmol/L Glucose (74-99) mg/dL POC Glucose (mg/dL) 201 H (75-99) mg/dL Calcium (8.4-10.2) mg/dL Alkaline Phosphatase (38-126) U/L Total Protein (6.3-8.2) g/dL Albumin (3.5-5.0) g/dL Microbiology - Last 24 Hours (Table) 11/07/19 04:21 Gram Stain - Final Sputum Sputum Culture - Final Layne albicans 11/04/19 20:24 Blood Culture - Preliminary Blood No Growth after 96 hours Assessment and Plan Assessment: 1-patient with fever and this patient has been in the hospital for almost 3 weeks now and has been spiking a fever on a daily basis since 31 October this patient apparently has not been an antibiotic for the last week or so and Eraxis has been added today as the sputum is showing Layne albicans patient was noted to have more abdominal distention with initial concern for abdominal source of sepsis may be the likely source of this persistent fever versus a component of pneumonia. 2-penicillin allergy there will be thrombophlebitis safety use apparently the patient has tolerated Zosyn as per pulmonary notes making his penicillin allergy questionable (1) Sepsis Current Visit: Yes Status: Acute Code(s): A41.9 - SEPSIS, UNSPECIFIED ORGANISM SNOMED Code(s): 22316892 Plan: 1-we will obtain a CT of abdominal pelvis with oral contrast only that should evaluate the lung bases as well 2 blood cultures will be repeated in addition to UA and a CRP- 3-we will add cefepime 2 g every 12hr and Flagyl and continue with Eraxis We will follow on clinical condition and cultures to further adjust medication if needed Thank you for this consultation we will follow the patient along with you time spent 65 mins reviewing his 3 weeks chart Time with Patient: Greater than 30
[2019-11-09 22:56] LABS: Glucose,Whole Blood 133 mg/dL (75-99)
[2019-11-09] MEDS: HYDROmorphone 0.5 MG/0.5 ML SYRINGE IVP PRN (23:04)
[2019-11-10 00:13] LABS: Glucose,Whole Blood 175 mg/dL (75-99)
[2019-11-10] MEDS: HEPARIN SODIUM,PORCINE 5,000 UNIT/ML 1 ML VIAL SQ SCH ×3 (00:17→18:15)
[2019-11-10 00:40] LABS: Appearance,Urine Clear (Clear); Bacteria,Urine Rare /hpf; Bilirubin,Urine Negative (Negative); Blood,Urine Small (Negative); Budding Yeast,Urine Occasional /hpf; Color,Urine Yellow; Glucose,Urine (UA) 1+ (Negative); Ketones,Urine Negative (Negative); Leukocyte Esterase,Urine Moderate (Negative); Mucus,Urine Rare /hpf; Nitrite,Urine Negative (Negative); Protein,Urine 1+ (Negative); RBC,Urine 20 /hpf (0-5); Specific Gravity,Urine 1.023 (1.001-1.035); Squamous Epithelial Cell,Urine <1 /hpf (0-4); Urobilinogen,Urine <2.0 mg/dL (<2.0); WBC,Urine 27 /hpf (0-5)
[2019-11-10 01:01] LABS: Glucose,Whole Blood 191 mg/dL (75-99)
[2019-11-10 02:03] LABS: Glucose,Whole Blood 234 mg/dL (75-99)
[2019-11-10 03:09] LABS: Glucose,Whole Blood 213 mg/dL (75-99)
[2019-11-10] MEDS: HYDROmorphone 0.5 MG/0.5 ML SYRINGE IVP PRN (03:10)
[2019-11-10 03:58] LABS: Glucose,Whole Blood 180 mg/dL (75-99)
[2019-11-10] MEDS: CEFEPIME 2 GM in SODIUM CHLORIDE 0.9% 100 ML IVPB SCH ×2 (04:43→18:15)
[2019-11-10 04:55] LABS: Basophils # (A) 0.1 k/uL (0-0.2); Basophils % (A) 0 %; Eosinophils # (A) 0.1 k/uL (0-0.7); Eosinophils % (A) 1 %; HGB 8.6 gm/dL (13.0-17.5); Hypochromasia Marked; Lymphocytes # (A) 1.4 k/uL (1.0-4.8); Lymphocytes % (A) 10 %; MCH 32.5 pg (25.0-35.0); MCHC 30.8 g/dL (31.0-37.0); MCV 105.3 fL (80.0-100.0); Macrocytosis Moderate; Mean Platelet Volume 7.2; Monocytes # (A) 0.8 k/uL (0-1.0); Monocytes % (A) 6 %; Neutrophils # (A) 11.7 k/uL (1.3-7.7); Neutrophils % (A) 82 %; Platelet Count 745 k/uL (150-450); Poikilocytosis Slight; RBC 2.66 m/uL (4.30-5.90); WBC 14.2 k/uL (3.8-10.6)
[2019-11-10 05:08] LABS: Glucose,Whole Blood 150 mg/dL (75-99)
[2019-11-10 05:09] LABS: ALT 13 U/L (4-49); AST 22 U/L (17-59); African American GFR (CKD) >90 (>60 ml/min/1.73 sqM); Albumin 2.2 g/dL (3.5-5.0); Alkaline Phosphatase 166 U/L (38-126); Anion Gap 6 mmol/L; Blood Urea Nitrogen 13 mg/dL (9-20); Calcium 7.8 mg/dL (8.4-10.2); Carbon Dioxide 25 mmol/L (22-30); Chloride 109 mmol/L (98-107); Glucose 157 mg/dL (74-99); Non-African American GFR(CKD) 83 (>60 ml/min/1.73 sqM); Sodium 140 mmol/L (137-145); Total Bilirubin 0.3 mg/dL (0.2-1.3); Total Protein 5.8 g/dL (6.3-8.2)
[2019-11-10] MEDS: LACTATED RINGERS 1,000 ML IV SCH (05:16)
[2019-11-10] MEDS: ACETAMINOPHEN TAB 325 MG TAB PO PRN ×3 (05:22→18:15)
[2019-11-10 05:58] LABS: Glucose,Whole Blood 154 mg/dL (75-99)
[2019-11-10 07:06] LABS: Glucose,Whole Blood 176 mg/dL (75-99)
--- NOTE | 2019-11-10 07:21 | XR ---
EXAMINATION TYPE: XR chest 1V portable DATE OF EXAM: 11/10/2019 Comparison: 11/09/2019 Clinical History: 79-year-old male Shortness of breath Findings: NG tube courses below the diaphragm. Abdominal aortic stent graft is partially visualized. Heart norm al size. Patchy interstitial density remains. Impression: Mild patchy interstitial infiltrate remains.
--- NOTE | 2019-11-10 07:31 | P.PN ---
Subjective Progress Note Date: 11/10/19 Principal diagnosis: cardiomyopathy This is an 79-year-old gentleman with extensive past medical history who was admitted to the hospital initially with intra-abdominal sepsis and small bowel obstruction and developed acute hypoxic respiratory failure. The patient was seen today, October [id number]. Overall he is stable. Hemodynamically he continues to be stable. No acute or major issues overnight. We'll continue to hold any oral anticoagulation in view of history of GI blee ding. Objective - Vital Signs Vital signs: Vital Signs Temp 100.6 F H 11/10/19 03:00 Pulse 87 11/10/19 07:00 Resp 23 11/10/19 07:00 BP 96/47 11/10/19 07:00 Pulse Ox 96 11/10/19 07:00 Intake & Output 11/09/19 11/10/19 11/10/19 18:59 06:59 18:59 Intake Total 3500.250 8297.792 197.98 Output Total 795 675 35 Balance 226.624 472.792 162.98 Weight 81 kg Intake: IV 600 600 50 Lactated Ringers 1,000 ml 600 600 50 @ 50 mls/hr IV .Q20H INDU Rx#:[id number] Intake, IV Titration 21.624 127.792 102.98 Amount Cefepime 2 gm In Sodium 100 100 Chloride 0.9% 100 ml @ 200 mls/hr IVPB Q12H INDU Rx#:[id number] Insulin Regular 100 unit 21.624 27.792 2.98 In Sodium Chloride 0.9% 100 ml @ Per Protocol IV .Q0M INDU Rx#:[id number] Tube Feeding 370 360 45 Other 30 60 Output: Urine 795 675 35 Other: Voiding Method Indwelling Catheter Indwelling Catheter ABP, PAP, CO, CI - Last Documented Arterial Blood Pressure 145/58 - Constitutional General appearance: Present: no acute distress - Labs CBC & Chem 7: 11/10/19 04:17 11/10/19 04:17 Labs: Abnormal Lab Results - Last 24 Hours (Table) 11/09/19 11/09/19 11/09/19 Range/Units 07:57 09:12 09:52 WBC (3.8-10.6) k/uL RBC (4.30-5.90) m/uL Hgb (13.0-17.5) gm/dL Hct (39.0-53.0) % MCV (80.0-100.0) fL MCHC (31.0-37.0) g/dL Plt Count (150-450) k/uL Neutrophils # (1.3-7.7) k/uL Chloride (98-107) mmol/L Glucose (74-99) mg/dL POC Glucose (mg/dL) 128 H 182 H 187 H (75-99) mg/dL Calcium (8.4-10.2) mg/dL Alkaline Phosphatase (38-126) U/L C-Reactive Protein (<10.0) mg/L Total Protein (6.3-8.2) g/dL Albumin (3.5-5.0) g/dL Urine Protein (Negative) Urine Glucose (UA) (Negative) Urine Blood (Negative) Ur Leukocyte Esterase (Negative) Urine RBC (0-5) /hpf Urine WBC (0-5) /hpf Urine Bacteria (None) /hpf Urine Mucus (None) /hpf Urine Yeast (Budding) (None) /hpf 11/09/19 11/09/19 11/09/19 Range/Units 11:08 11:59 13:19 WBC (3.8-10.6) k/uL RBC (4.30-5.90) m/uL Hgb (13.0-17.5) gm/dL Hct (39.0-53.0) % MCV (80.0-100.0) fL MCHC (31.0-37.0) g/dL Plt Count (150-450) k/uL Neutrophils # (1.3-7.7) k/uL Chloride (98-107) mmol/L Glucose (74-99) mg/dL POC Glucose (mg/dL) 206 H 195 H 190 H (75-99) mg/dL Calcium (8.4-10.2) mg/dL Alkaline Phosphatase (38-126) U/L C-Reactive Protein (<10.0) mg/L Total Protein (6.3-8.2) g/dL Albumin (3.5-5.0) g/dL Urine Protein (Negative) Urine Glucose (UA) (Negative) Urine Blood (Negative) Ur Leukocyte Esterase (Negative) Urine RBC (0-5) /hpf Urine WBC (0-5) /hpf Urine Bacteria (None) /hpf Urine Mucus (None) /hpf Urine Yeast (Budding) (None) /hpf 11/09/19 11/09/19 11/09/19 Range/Units 14:20 14:21 15:21 WBC (3.8-10.6) k/uL RBC (4.30-5.90) m/uL Hgb (13.0-17.5) gm/dL Hct (39.0-53.0) % MCV (80.0-100.0) fL MCHC (31.0-37.0) g/dL Plt Count (150-450) k/uL Neutrophils # (1.3-7.7) k/uL Chloride (98-107) mmol/L Glucose (74-99) mg/dL POC Glucose (mg/dL) 138 H 143 H 133 H (75-99) mg/dL Calcium (8.4-10.2) mg/dL Alkaline Phosphatase (38-126) U/L C-Reactive Protein (<10.0) mg/L Total Protein (6.3-8.2) g/dL Albumin (3.5-5.0) g/dL Urine Protein (Negative) Urine Glucose (UA) (Negative) Urine Blood (Negative) Ur Leukocyte Esterase (Negative) Urine RBC (0-5) /hpf Urine WBC (0-5) /hpf Urine Bacteria (None) /hpf Urine Mucus (None) /hpf Urine Yeast (Budding) (None) /hpf 11/09/19 11/09/19 11/09/19 Range/Units 16:03 16:29 16:57 WBC (3.8-10.6) k/uL RBC (4.30-5.90) m/uL Hgb (13.0-17.5) gm/dL Hct (39.0-53.0) % MCV (80.0-100.0) fL MCHC (31.0-37.0) g/dL Plt Count (150-450) k/uL Neutrophils # (1.3-7.7) k/uL Chloride (98-107) mmol/L Glucose (74-99) mg/dL POC Glucose (mg/dL) 201 H 167 H (75-99) mg/dL Calcium (8.4-10.2) mg/dL Alkaline Phosphatase (38-126) U/L C-Reactive Protein 79.2 H (<10.0) mg/L Total Protein (6.3-8.2) g/dL Albumin (3.5-5.0) g/dL Urine Protein (Negative) Urine Glucose (UA) (Negative) Urine Blood (Negative) Ur Leukocyte Esterase (Negative) Urine RBC (0-5) /hpf Urine WBC (0-5) /hpf Urine Bacteria (None) /hpf Urine Mucus (None) /hpf Urine Yeast (Budding) (None) /hpf 11/09/19 11/09/19 11/09/19 Range/Units 18:16 18:52 20:00 WBC (3.8-10.6) k/uL RBC (4.30-5.90) m/uL Hgb (13.0-17.5) gm/dL Hct (39.0-53.0) % MCV (80.0-100.0) fL MCHC (31.0-37.0) g/dL Plt Count (150-450) k/uL Neutrophils # (1.3-7.7) k/uL Chloride (98-107) mmol/L Glucose (74-99) mg/dL POC Glucose (mg/dL) 210 H 228 H 194 H (75-99) mg/dL Calcium (8.4-10.2) mg/dL Alkaline Phosphatase (38-126) U/L C-Reactive Protein (<10.0) mg/L Total Protein (6.3-8.2) g/dL Albumin (3.5-5.0) g/dL Urine Protein (Negative) Urine Glucose (UA) (Negative) Urine Blood (Negative) Ur Leukocyte Esterase (Negative) Urine RBC (0-5) /hpf Urine WBC (0-5) /hpf Urine Bacteria (None) /hpf Urine Mucus (None) /hpf Urine Yeast (Budding) (None) /hpf 11/09/19 11/09/19 11/09/19 Range/Units 21:02 22:17 22:19 WBC (3.8-10.6) k/uL RBC (4.30-5.90) m/uL Hgb (13.0-17.5) gm/dL Hct (39.0-53.0) % MCV (80.0-100.0) fL MCHC (31.0-37.0) g/dL Plt Count (150-450) k/uL Neutrophils # (1.3-7.7) k/uL Chloride (98-107) mmol/L Glucose (74-99) mg/dL POC Glucose (mg/dL) 186 H 128 H 127 H (75-99) mg/dL Calcium (8.4-10.2) mg/dL Alkaline Phosphatase (38-126) U/L C-Reactive Protein (<10.0) mg/L Total Protein (6.3-8.2) g/dL Albumin (3.5-5.0) g/dL Urine Protein (Negative) Urine Glucose (UA) (Negative) Urine Blood (Negative) Ur Leukocyte Esterase (Negative) Urine RBC (0-5) /hpf Urine WBC (0-5) /hpf Urine Bacteria (None) /hpf Urine Mucus (None) /hpf Urine Yeast (Budding) (None) /hpf 11/09/19 11/10/19 11/10/19 Range/Units 22:55 00:12 00:20 WBC (3.8-10.6) k/uL RBC (4.30-5.90) m/uL Hgb (13.0-17.5) gm/dL Hct (39.0-53.0) % MCV (80.0-100.0) fL MCHC (31.0-37.0) g/dL Plt Count (150-450) k/uL Neutrophils # (1.3-7.7) k/uL Chloride (98-107) mmol/L Glucose (74-99) mg/dL POC Glucose (mg/dL) 133 H 175 H (75-99) mg/dL Calcium (8.4-10.2) mg/dL Alkaline Phosphatase (38-126) U/L C-Reactive Protein (<10.0) mg/L Total Protein (6.3-8.2) g/dL Albumin (3.5-5.0) g/dL Urine Protein 1+ H (Negative) Urine Glucose (UA) 1+ H (Negative) Urine Blood Small H (Negative) Ur Leukocyte Esterase Moderate H (Negative) Urine RBC 20 H (0-5) /hpf Urine WBC 27 H (0-5) /hpf Urine Bacteria Rare H (None) /hpf Urine Mucus Rare H (None) /hpf Urine Yeast (Budding) Occasional H (None) /hpf 11/10/19 11/10/19 11/10/19 Range/Units 00:59 02:01 03:07 WBC (3.8-10.6) k/uL RBC (4.30-5.90) m/uL Hgb (13.0-17.5) gm/dL Hct (39.0-53.0) % MCV (80.0-100.0) fL MCHC (31.0-37.0) g/dL Plt Count (150-450) k/uL Neutrophils # (1.3-7.7) k/uL Chloride (98-107) mmol/L Glucose (74-99) mg/dL POC Glucose (mg/dL) 191 H 234 H 213 H (75-99) mg/dL Calcium (8.4-10.2) mg/dL Alkaline Phosphatase (38-126) U/L C-Reactive Protein (<10.0) mg/L Total Protein (6.3-8.2) g/dL Albumin (3.5-5.0) g/dL Urine Protein (Negative) Urine Glucose (UA) (Negative) Urine Blood (Negative) Ur Leukocyte Esterase (Negative) Urine RBC (0-5) /hpf Urine WBC (0-5) /hpf Urine Bacteria (None) /hpf Urine Mucus (None) /hpf Urine Yeast (Budding) (None) /hpf 11/10/19 11/10/19 11/10/19 Range/Units 03:57 04:17 04:17 WBC 14.2 H (3.8-10.6) k/uL RBC 2.66 L (4.30-5.90) m/uL Hgb 8.6 L (13.0-17.5) gm/dL Hct 28.0 L (39.0-53.0) % MCV 105.3 H (80.0-100.0) fL MCHC 30.8 L (31.0-37.0) g/dL Plt Count 745 H (150-450) k/uL Neutrophils # 11.7 H (1.3-7.7) k/uL Chloride 109 H (98-107) mmol/L Glucose 157 H (74-99) mg/dL POC Glucose (mg/dL) 180 H (75-99) mg/dL Calcium 7.8 L (8.4-10.2) mg/dL Alkaline Phosphatase 166 H (38-126) U/L C-Reactive Protein (<10.0) mg/L Total Protein 5.8 L (6.3-8.2) g/dL Albumin 2.2 L (3.5-5.0) g/dL Urine Protein (Negative) Urine Glucose (UA) (Negative) Urine Blood (Negative) Ur Leukocyte Esterase (Negative) Urine RBC (0-5) /hpf Urine WBC (0-5) /hpf Urine Bacteria (None) /hpf Urine Mucus (None) /hpf Urine Yeast (Budding) (None) /hpf 11/10/19 11/10/19 11/10/19 Range/Units 05:06 05:56 07:05 WBC (3.8-10.6) k/uL RBC (4.30-5.90) m/uL Hgb (13.0-17.5) gm/dL Hct (39.0-53.0) % MCV (80.0-100.0) fL MCHC (31.0-37.0) g/dL Plt Count (150-450) k/uL Neutrophils # (1.3-7.7) k/uL Chloride (98-107) mmol/L Glucose (74-99) mg/dL POC Glucose (mg/dL) 150 H 154 H 176 H (75-99) mg/dL Calcium (8.4-10.2) mg/dL Alkaline Phosphatase (38-126) U/L C-Reactive Protein (<10.0) mg/L Total Protein (6.3-8.2) g/dL Albumin (3.5-5.0) g/dL Urine Protein (Negative) Urine Glucose (UA) (Negative) Urine Blood (Negative) Ur Leukocyte Esterase (Negative) Urine RBC (0-5) /hpf Urine WBC (0-5) /hpf Urine Bacteria (None) /hpf Urine Mucus (None) /hpf Urine Yeast (Budding) (None) /hpf Microbiology - Last 24 Hours (Table) 11/04/19 20:24 Blood Culture - Preliminary Blood No Growth after 120 hours 11/07/19 04:21 Gram Stain - Final Sputum Sputum Culture - Final [place] albicans Assessment and Plan Assessment: assessment #1 acute hypoxic respiratory failure which has improved #2 paroxysmal atrial fibrillation #3 severe cardiomyopathy #4 peripheral arterial disease #5 multiple comorbid conditions Plan #1 continue the current medical regimen including the current dose of amiodarone #2 continue the current dose of metoprolol #3 follow-up with the patient
[2019-11-10 07:55] LABS: Glucose,Whole Blood 188 mg/dL (75-99)
[2019-11-10 09:02] LABS: Glucose,Whole Blood 191 mg/dL (75-99)
--- NOTE | 2019-11-10 10:07 | P.PN ---
<Jodie Garcia A - Last Filed: 11/10/19 10:02> Subjective Progress Note Date: 11/10/19 CHIEF COMPLAINT: Sepsis HISTORY OF PRESENT ILLNESS: Patient examined in the intensive care. He remains extubated. Tube feedings have been resumed. Patient with FMS. Nursing reports approximately 800cc over the past 24 hours of liquid stool. Temperature overnight 100.6. WBC 14.2. PHYSICAL EXAM: VITAL SIGNS: Reviewed GENERAL: Well-developed in no acute distress. HEENT: No sclera icterus. Extraocular movements grossly intact. Moist buccal mucosa. Head is atraumatic, normocephalic. No nasal drainage. NECK: Supple without lymphadenopathy. CHEST: Non-labored respirations and equal bilateral excursions. CARDIOVASCULAR: Regular rate with regular rhythm. Palpable 2+ radial pulses. ABDOMEN: Soft. Minimal distention. Nontender. NG tube noted. MUSCULOSKELETAL: No clubbing or cyanosis. NEUROLOGIC: Awake and alert. SKIN: Well perfused. Good skin turgor. ASSESSMENT: 1. Abnormal computed tomography scan with small bowel distention, resolving PLAN: Continue NPO status as patient failed swallow evaluation. Speech following. If family wants to continue aggressive medical treatment, may require PEG tube placement if patient unable to tolerate PO intake in the future Continue tube feedings Dr. Quintero recommends US of the extremities to rule out DVT as cause of fevers and/or CT of the sinuses as this may be a cause of fevers secondary to sinusitis from prolonged NG tube. Will defer to internal medicine Nurse practitioner note has been reviewed by physician. Signing provider agrees with the documented findings, assessment, and plan of care. Objective - Vital Signs Vital signs: Vital Signs Temp 100.6 F H 11/10/19 03:00 Pulse 87 11/10/19 07:00 Resp 23 11/10/19 07:00 BP 96/47 11/10/19 07:00 Pulse Ox 96 11/10/19 07:00 Intake & Output 11/09/19 11/10/19 11/10/19 18:59 06:59 18:59 Intake Total 2807.715 5991.792 203.704 Output Total 795 675 35 Balance 226.624 472.792 168.704 Weight 81 kg Intake: IV 600 600 50 Lactated Ringers 1,000 ml 600 600 50 @ 50 mls/hr IV .Q20H INDU Rx#:[id number] Intake, IV Titration 21.624 127.792 108.704 Amount Cefepime 2 gm In Sodium 100 100 Chloride 0.9% 100 ml @ 200 mls/hr IVPB Q12H INDU Rx#:[id number] Insulin Regular 100 unit 21.624 27.792 8.704 In Sodium Chloride 0.9% 100 ml @ Per Protocol IV .Q0M INDU Rx#:[id number] Tube Feeding 370 360 45 Other 30 60 Output: Urine 795 675 35 Other: Voiding Method Indwelling Catheter Indwelling Catheter ABP, PAP, CO, CI - Last Documented Arterial Blood Pressure 145/58 - Labs CBC & Chem 7: 11/10/19 04:17 11/10/19 04:17 Labs: Abnormal Lab Results - Last 24 Hours (Table) 11/09/19 11/09/19 11/09/19 Range/Units 11:08 11:59 13:19 WBC (3.8-10.6) k/uL RBC (4.30-5.90) m/uL Hgb (13.0-17.5) gm/dL Hct (39.0-53.0) % MCV (80.0-100.0) fL MCHC (31.0-37.0) g/dL Plt Count (150-450) k/uL Neutrophils # (1.3-7.7) k/uL Chloride (98-107) mmol/L Glucose (74-99) mg/dL POC Glucose (mg/dL) 206 H 195 H 190 H (75-99) mg/dL Calcium (8.4-10.2) mg/dL Alkaline Phosphatase (38-126) U/L C-Reactive Protein (<10.0) mg/L Total Protein (6.3-8.2) g/dL Albumin (3.5-5.0) g/dL Urine Protein (Negative) Urine Glucose (UA) (Negative) Urine Blood (Negative) Ur Leukocyte Esterase (Negative) Urine RBC (0-5) /hpf Urine WBC (0-5) /hpf Urine Bacteria (None) /hpf Urine Mucus (None) /hpf Urine Yeast (Budding) (None) /hpf 11/09/19 11/09/19 11/09/19 Range/Units 14:20 14:21 15:21 WBC (3.8-10.6) k/uL RBC (4.30-5.90) m/uL Hgb (13.0-17.5) gm/dL Hct (39.0-53.0) % MCV (80.0-100.0) fL MCHC (31.0-37.0) g/dL Plt Count (150-450) k/uL Neutrophils # (1.3-7.7) k/uL Chloride (98-107) mmol/L Glucose (74-99) mg/dL POC Glucose (mg/dL) 138 H 143 H 133 H (75-99) mg/dL Calcium (8.4-10.2) mg/dL Alkaline Phosphatase (38-126) U/L C-Reactive Protein (<10.0) mg/L Total Protein (6.3-8.2) g/dL Albumin (3.5-5.0) g/dL Urine Protein (Negative) Urine Glucose (UA) (Negative) Urine Blood (Negative) Ur Leukocyte Esterase (Negative) Urine RBC (0-5) /hpf Urine WBC (0-5) /hpf Urine Bacteria (None) /hpf Urine Mucus (None) /hpf Urine Yeast (Budding) (None) /hpf 11/09/19 11/09/19 11/09/19 Range/Units 16:03 16:29 16:57 WBC (3.8-10.6) k/uL RBC (4.30-5.90) m/uL Hgb (13.0-17.5) gm/dL Hct (39.0-53.0) % MCV (80.0-100.0) fL MCHC (31.0-37.0) g/dL Plt Count (150-450) k/uL Neutrophils # (1.3-7.7) k/uL Chloride (98-107) mmol/L Glucose (74-99) mg/dL POC Glucose (mg/dL) 201 H 167 H (75-99) mg/dL Calcium (8.4-10.2) mg/dL Alkaline Phosphatase (38-126) U/L C-Reactive Protein 79.2 H (<10.0) mg/L Total Protein (6.3-8.2) g/dL Albumin (3.5-5.0) g/dL Urine Protein (Negative) Urine Glucose (UA) (Negative) Urine Blood (Negative) Ur Leukocyte Esterase (Negative) Urine RBC (0-5) /hpf Urine WBC (0-5) /hpf Urine Bacteria (None) /hpf Urine Mucus (None) /hpf Urine Yeast (Budding) (None) /hpf 11/09/19 11/09/19 11/09/19 Range/Units 18:16 18:52 20:00 WBC (3.8-10.6) k/uL RBC (4.30-5.90) m/uL Hgb (13.0-17.5) gm/dL Hct (39.0-53.0) % MCV (80.0-100.0) fL MCHC (31.0-37.0) g/dL Plt Count (150-450) k/uL Neutrophils # (1.3-7.7) k/uL Chloride (98-107) mmol/L Glucose (74-99) mg/dL POC Glucose (mg/dL) 210 H 228 H 194 H (75-99) mg/dL Calcium (8.4-10.2) mg/dL Alkaline Phosphatase (38-126) U/L C-Reactive Protein (<10.0) mg/L Total Protein (6.3-8.2) g/dL Albumin (3.5-5.0) g/dL Urine Protein (Negative) Urine Glucose (UA) (Negative) Urine Blood (Negative) Ur Leukocyte Esterase (Negative) Urine RBC (0-5) /hpf Urine WBC (0-5) /hpf Urine Bacteria (None) /hpf Urine Mucus (None) /hpf Urine Yeast (Budding) (None) /hpf 11/09/19 11/09/19 11/09/19 Range/Units 21:02 22:17 22:19 WBC (3.8-10.6) k/uL RBC (4.30-5.90) m/uL Hgb (13.0-17.5) gm/dL Hct (39.0-53.0) % MCV (80.0-100.0) fL MCHC (31.0-37.0) g/dL Plt Count (150-450) k/uL Neutrophils # (1.3-7.7) k/uL Chloride (98-107) mmol/L Glucose (74-99) mg/dL POC Glucose (mg/dL) 186 H 128 H 127 H (75-99) mg/dL Calcium (8.4-10.2) mg/dL Alkaline Phosphatase (38-126) U/L C-Reactive Protein (<10.0) mg/L Total Protein (6.3-8.2) g/dL Albumin (3.5-5.0) g/dL Urine Protein (Negative) Urine Glucose (UA) (Negative) Urine Blood (Negative) Ur Leukocyte Esterase (Negative) Urine RBC (0-5) /hpf Urine WBC (0-5) /hpf Urine Bacteria (None) /hpf Urine Mucus (None) /hpf Urine Yeast (Budding) (None) /hpf 11/09/19 11/10/19 11/10/19 Range/Units 22:55 00:12 00:20 WBC (3.8-10.6) k/uL RBC (4.30-5.90) m/uL Hgb (13.0-17.5) gm/dL Hct (39.0-53.0) % MCV (80.0-100.0) fL MCHC (31.0-37.0) g/dL Plt Count (150-450) k/uL Neutrophils # (1.3-7.7) k/uL Chloride (98-107) mmol/L Glucose (74-99) mg/dL POC Glucose (mg/dL) 133 H 175 H (75-99) mg/dL Calcium (8.4-10.2) mg/dL Alkaline Phosphatase (38-126) U/L C-Reactive Protein (<10.0) mg/L Total Protein (6.3-8.2) g/dL Albumin (3.5-5.0) g/dL Urine Protein 1+ H (Negative) Urine Glucose (UA) 1+ H (Negative) Urine Blood Small H (Negative) Ur Leukocyte Esterase Moderate H (Negative) Urine RBC 20 H (0-5) /hpf Urine WBC 27 H (0-5) /hpf Urine Bacteria Rare H (None) /hpf Urine Mucus Rare H (None) /hpf Urine Yeast (Budding) Occasional H (None) /hpf 11/10/19 11/10/19 11/10/19 Range/Units 00:59 02:01 03:07 WBC (3.8-10.6) k/uL RBC (4.30-5.90) m/uL Hgb (13.0-17.5) gm/dL Hct (39.0-53.0) % MCV (80.0-100.0) fL MCHC (31.0-37.0) g/dL Plt Count (150-450) k/uL Neutrophils # (1.3-7.7) k/uL Chloride (98-107) mmol/L Glucose (74-99) mg/dL POC Glucose (mg/dL) 191 H 234 H 213 H (75-99) mg/dL Calcium (8.4-10.2) mg/dL Alkaline Phosphatase (38-126) U/L C-Reactive Protein (<10.0) mg/L Total Protein (6.3-8.2) g/dL Albumin (3.5-5.0) g/dL Urine Protein (Negative) Urine Glucose (UA) (Negative) Urine Blood (Negative) Ur Leukocyte Esterase (Negative) Urine RBC (0-5) /hpf Urine WBC (0-5) /hpf Urine Bacteria (None) /hpf Urine Mucus (None) /hpf Urine Yeast (Budding) (None) /hpf 11/10/19 11/10/19 11/10/19 Range/Units 03:57 04:17 04:17 WBC 14.2 H (3.8-10.6) k/uL RBC 2.66 L (4.30-5.90) m/uL Hgb 8.6 L (13.0-17.5) gm/dL Hct 28.0 L (39.0-53.0) % MCV 105.3 H (80.0-100.0) fL MCHC 30.8 L (31.0-37.0) g/dL Plt Count 745 H (150-450) k/uL Neutrophils # 11.7 H (1.3-7.7) k/uL Chloride 109 H (98-107) mmol/L Glucose 157 H (74-99) mg/dL POC Glucose (mg/dL) 180 H (75-99) mg/dL Calcium 7.8 L (8.4-10.2) mg/dL Alkaline Phosphatase 166 H (38-126) U/L C-Reactive Protein (<10.0) mg/L Total Protein 5.8 L (6.3-8.2) g/dL Albumin 2.2 L (3.5-5.0) g/dL Urine Protein (Negative) Urine Glucose (UA) (Negative) Urine Blood (Negative) Ur Leukocyte Esterase (Negative) Urine RBC (0-5) /hpf Urine WBC (0-5) /hpf Urine Bacteria (None) /hpf Urine Mucus (None) /hpf Urine Yeast (Budding) (None) /hpf 11/10/19 11/10/19 11/10/19 Range/Units 05:06 05:56 07:05 WBC (3.8-10.6) k/uL RBC (4.30-5.90) m/uL Hgb (13.0-17.5) gm/dL Hct (39.0-53.0) % MCV (80.0-100.0) fL MCHC (31.0-37.0) g/dL Plt Count (150-450) k/uL Neutrophils # (1.3-7.7) k/uL Chloride (98-107) mmol/L Glucose (74-99) mg/dL POC Glucose (mg/dL) 150 H 154 H 176 H (75-99) mg/dL Calcium (8.4-10.2) mg/dL Alkaline Phosphatase (38-126) U/L C-Reactive Protein (<10.0) mg/L Total Protein (6.3-8.2) g/dL Albumin (3.5-5.0) g/dL Urine Protein (Negative) Urine Glucose (UA) (Negative) Urine Blood (Negative) Ur Leukocyte Esterase (Negative) Urine RBC (0-5) /hpf Urine WBC (0-5) /hpf Urine Bacteria (None) /hpf Urine Mucus (None) /hpf Urine Yeast (Budding) (None) /hpf 11/10/19 11/10/19 Range/Units 07:53 09:00 WBC (3.8-10.6) k/uL RBC (4.30-5.90) m/uL Hgb (13.0-17.5) gm/dL Hct (39.0-53.0) % MCV (80.0-100.0) fL MCHC (31.0-37.0) g/dL Plt Count (150-450) k/uL Neutrophils # (1.3-7.7) k/uL Chloride (98-107) mmol/L Glucose (74-99) mg/dL POC Glucose (mg/dL) 188 H 191 H (75-99) mg/dL Calcium (8.4-10.2) mg/dL Alkaline Phosphatase (38-126) U/L C-Reactive Protein (<10.0) mg/L Total Protein (6.3-8.2) g/dL Albumin (3.5-5.0) g/dL Urine Protein (Negative) Urine Glucose (UA) (Negative) Urine Blood (Negative) Ur Leukocyte Esterase (Negative) Urine RBC (0-5) /hpf Urine WBC (0-5) /hpf Urine Bacteria (None) /hpf Urine Mucus (None) /hpf Urine Yeast (Budding) (None) /hpf Microbiology - Last 24 Hours (Table) 11/04/19 20:24 Blood Culture - Preliminary Blood No Growth after 120 hours 11/07/19 04:21 Gram Stain - Final Sputum Sputum Culture - Final Layne albicans <Bess Quintero N - Last Filed: 11/10/19 15:38> Subjective Patient seen and evaluated with nurse practitioner and agree with above. HISTORY OF PRESENT ILLNESS: The patient is a 79 year old male in the intensive care unit over 3+ weeks secondary to presentation of sepsis, uncontrolled hyperglycemia, sepsis, small bowel obstruction resolved and acute kidney injury. He had persistent fevers over the weekend. He has been off antibiotics for over 5 days. Infectious disease is now consulted and following. As a result, additional studies including abdominal CT were obtained. REVIEW OF ORGAN SYSTEMS: Over the weekend, chronic diarrhea. Has pneumonia. PHYSICAL EXAM: VITALS: Reviewed CONSTITUTIONAL: Well developed and in no acute distress. EYES: Conjuctivae without sclera icterus. Extraocular movements grossly intact. HEAD, EARS, NOSE, THROAT: Moist buccal mucosa. Head is atraumatic, normoce phalic. Nasogastric tube present. NECK: Supple. No thyroidomegaly. RESPIRATORY: Nonlabored respirations. CARDIOVASCULAR: Palpable 2+ radial pulses. ABDOMEN: Soft. Mild distention. No peritonitis. MUSCULOSKELETAL: No clubbing, cyanosis. Edema bilateral upper extremity 2+ SKIN: Warm and well perfused with good skin turgor. NEUROLOGIC: No focal or lateralizing signs. PSYCH: Alert to self. CLINCAL LABS: Reviewed. LFTs within normal limits. WBC elevated at 14,000 MICROBIOLOGY: Candidiasis in urine, sputum, stool, STUDIES: CT of the abdomen and pelvis and independently reviewed demonstrating new multiple peripheral areas of liver infarction which is new compared to 3 weeks ago. Also, oral contrast goes past the terminal ileum. No evidence of complete small bowel obstruction identified. No evidence of active colitis, small bowel perforation or free air. Presence of ascites identified ASSESSMENT: 1. Chronic diarrhea 2. Abdominal aortic aneurysm 3. Uncontrolled diabetes type 2 with hyperglycemia 4. Lactic acidosis 5. Acute respiratory failure 6. Dementia 7. Acute kidney injury 8. Sepsis 9. Candidiasis 10. Fevers PLAN: 1. CT of the abdomen and pelvis independently reviewed without features of abdominal sepsis. New liver infarct identified. 2. Separately, blood cultures have been negative for growth to date. 3. At some point, may benefit from CT sinuses including DVT assessment for persistent fevers as well. 4. Patient prognosis overall guarded with multiple medical comorbidities Objective - Vital Signs Vital signs: Vital Signs Temp 99.1 F 11/10/19 12:00 Pulse 85 11/10/19 14:00 Resp 23 11/10/19 14:00 BP 113/60 11/10/19 14:00 Pulse Ox 95 11/10/19 14:00 Intake & Output 11/09/19 11/10/19 11/10/19 18:59 06:59 18:59 Intake Total 2392.231 7255.792 930.740 Output Total 795 675 395 Balance 226.624 472.792 535.740 Weight 81 kg Intake: IV 600 600 400 Lactated Ringers 1,000 ml 600 600 400 @ 50 mls/hr IV .Q20H INDU Rx#:[id number] Intake, IV Titration 21.624 127.792 120.740 Amount Cefepime 2 gm In Sodium 100 100 Chloride 0.9% 100 ml @ 200 mls/hr IVPB Q12H INDU Rx#:[id number] Insulin Regular 100 unit 21.624 27.792 20.740 In Sodium Chloride 0.9% 100 ml @ Per Protocol IV .Q0M INDU Rx#:[id number] Tube Feeding 370 360 380 Other 30 60 30 Output: Urine 795 675 395 Other: Voiding Method Indwelling Catheter Indwelling Catheter ABP, PAP, CO, CI - Last Documented Arterial Blood Pressure 145/58 - Labs CBC & Chem 7: 11/10/19 04:17 11/10/19 04:17 Labs: Abnormal Lab Results - Last 24 Hours (Table) 11/09/19 11/09/19 11/09/19 Range/Units 16:03 16:29 16:57 WBC (3.8-10.6) k/uL RBC (4.30-5.90) m/uL Hgb (13.0-17.5) gm/dL Hct (39.0-53.0) % MCV (80.0-100.0) fL MCHC (31.0-37.0) g/dL Plt Count (150-450) k/uL Neutrophils # (1.3-7.7) k/uL Chloride (98-107) mmol/L Glucose (74-99) mg/dL POC Glucose (mg/dL) 201 H 167 H (75-99) mg/dL Calcium (8.4-10.2) mg/dL Alkaline Phosphatase (38-126) U/L C-Reactive Protein 79.2 H (<10.0) mg/L Total Protein (6.3-8.2) g/dL Albumin (3.5-5.0) g/dL Urine Protein (Negative) Urine Glucose (UA) (Negative) Urine Blood (Negative) Ur Leukocyte Esterase (Negative) Urine RBC (0-5) /hpf Urine WBC (0-5) /hpf Urine Bacteria (None) /hpf Urine Mucus (None) /hpf Urine Yeast (Budding) (None) /hpf 11/09/19 11/09/19 11/09/19 Range/Units 18:16 18:52 20:00 WBC (3.8-10.6) k/uL RBC (4.30-5.90) m/uL Hgb (13.0-17.5) gm/dL Hct (39.0-53.0) % MCV (80.0-100.0) fL MCHC (31.0-37.0) g/dL Plt Count (150-450) k/uL Neutrophils # (1.3-7.7) k/uL Chloride (98-107) mmol/L Glucose (74-99) mg/dL POC Glucose (mg/dL) 210 H 228 H 194 H (75-99) mg/dL Calcium (8.4-10.2) mg/dL Alkaline Phosphatase (38-126) U/L C-Reactive Protein (<10.0) mg/L Total Protein (6.3-8.2) g/dL Albumin (3.5-5.0) g/dL Urine Protein (Negative) Urine Glucose (UA) (Negative) Urine Blood (Negative) Ur Leukocyte Esterase (Negative) Urine RBC (0-5) /hpf Urine WBC (0-5) /hpf Urine Bacteria (None) /hpf Urine Mucus (None) /hpf Urine Yeast (Budding) (None) /hpf 11/09/19 11/09/19 11/09/19 Range/Units 21:02 22:17 22:19 WBC (3.8-10.6) k/uL RBC (4.30-5.90) m/uL Hgb (13.0-17.5) gm/dL Hct (39.0-53.0) % MCV (80.0-100.0) fL MCHC (31.0-37.0) g/dL Plt Count (150-450) k/uL Neutrophils # (1.3-7.7) k/uL Chloride (98-107) mmol/L Glucose (74-99) mg/dL POC Glucose (mg/dL) 186 H 128 H 127 H (75-99) mg/dL Calcium (8.4-10.2) mg/dL Alkaline Phosphatase (38-126) U/L C-Reactive Protein (<10.0) mg/L Total Protein (6.3-8.2) g/dL Albumin (3.5-5.0) g/dL Urine Protein (Negative) Urine Glucose (UA) (Negative) Urine Blood (Negative) Ur Leukocyte Esterase (Negative) Urine RBC (0-5) /hpf Urine WBC (0-5) /hpf Urine Bacteria (None) /hpf Urine Mucus (None) /hpf Urine Yeast (Budding) (None) /hpf 11/09/19 11/10/19 11/10/19 Range/Units 22:55 00:12 00:20 WBC (3.8-10.6) k/uL RBC (4.30-5.90) m/uL Hgb (13.0-17.5) gm/dL Hct (39.0-53.0) % MCV (80.0-100.0) fL MCHC (31.0-37.0) g/dL Plt Count (150-450) k/uL Neutrophils # (1.3-7.7) k/uL Chloride (98-107) mmol/L Glucose (74-99) mg/dL POC Glucose (mg/dL) 133 H 175 H (75-99) mg/dL Calcium (8.4-10.2) mg/dL Alkaline Phosphatase (38-126) U/L C-Reactive Protein (<10.0) mg/L Total Protein (6.3-8.2) g/dL Albumin (3.5-5.0) g/dL Urine Protein 1+ H (Negative) Urine Glucose (UA) 1+ H (Negative) Urine Blood Small H (Negative) Ur Leukocyte Esterase Moderate H (Negative) Urine RBC 20 H (0-5) /hpf Urine WBC 27 H (0-5) /hpf Urine Bacteria Rare H (None) /hpf Urine Mucus Rare H (None) /hpf Urine Yeast (Budding) Occasional H (None) /hpf 11/10/19 11/10/19 11/10/19 Range/Units 00:59 02:01 03:07 WBC (3.8-10.6) k/uL RBC (4.30-5.90) m/uL Hgb (13.0-17.5) gm/dL Hct (39.0-53.0) % MCV (80.0-100.0) fL MCHC (31.0-37.0) g/dL Plt Count (150-450) k/uL Neutrophils # (1.3-7.7) k/uL Chloride (98-107) mmol/L Glucose (74-99) mg/dL POC Glucose (mg/dL) 191 H 234 H 213 H (75-99) mg/dL Calcium (8.4-10.2) mg/dL Alkaline Phosphatase (38-126) U/L C-Reactive Protein (<10.0) mg/L Total Protein (6.3-8.2) g/dL Albumin (3.5-5.0) g/dL Urine Protein (Negative) Urine Glucose (UA) (Negative) Urine Blood (Negative) Ur Leukocyte Esterase (Negative) Urine RBC (0-5) /hpf Urine WBC (0-5) /hpf Urine Bacteria (None) /hpf Urine Mucus (None) /hpf Urine Yeast (Budding) (None) /hpf 11/10/19 11/10/19 11/10/19 Range/Units 03:57 04:17 04:17 WBC 14.2 H (3.8-10.6) k/uL RBC 2.66 L (4.30-5.90) m/uL Hgb 8.6 L (13.0-17.5) gm/dL Hct 28.0 L (39.0-53.0) % MCV 105.3 H (80.0-100.0) fL MCHC 30.8 L (31.0-37.0) g/dL Plt Count 745 H (150-450) k/uL Neutrophils # 11.7 H (1.3-7.7) k/uL Chloride 109 H (98-107) mmol/L Glucose 157 H (74-99) mg/dL POC Glucose (mg/dL) 180 H (75-99) mg/dL Calcium 7.8 L (8.4-10.2) mg/dL Alkaline Phosphatase 166 H (38-126) U/L C-Reactive Protein (<10.0) mg/L Total Protein 5.8 L (6.3-8.2) g/dL Albumin 2.2 L (3.5-5.0) g/dL Urine Protein (Negative) Urine Glucose (UA) (Negative) Urine Blood (Negative) Ur Leukocyte Esterase (Negative) Urine RBC (0-5) /hpf Urine WBC (0-5) /hpf Urine Bacteria (None) /hpf Urine Mucus (None) /hpf Urine Yeast (Budding) (None) /hpf 11/10/19 11/10/19 11/10/19 Range/Units 05:06 05:56 07:05 WBC (3.8-10.6) k/uL RBC (4.30-5.90) m/uL Hgb (13.0-17.5) gm/dL Hct (39.0-53.0) % MCV (80.0-100.0) fL MCHC (31.0-37.0) g/dL Plt Count (150-450) k/uL Neutrophils # (1.3-7.7) k/uL Chloride (98-107) mmol/L Glucose (74-99) mg/dL POC Glucose (mg/dL) 150 H 154 H 176 H (75-99) mg/dL Calcium (8.4-10.2) mg/dL Alkaline Phosphatase (38-126) U/L C-Reactive Protein (<10.0) mg/L Total Protein (6.3-8.2) g/dL Albumin (3.5-5.0) g/dL Urine Protein (Negative) Urine Glucose (UA) (Negative) Urine Blood (Negative) Ur Leukocyte Esterase (Negative) Urine RBC (0-5) /hpf Urine WBC (0-5) /hpf Urine Bacteria (None) /hpf Urine Mucus (None) /hpf Urine Yeast (Budding) (None) /hpf 11/10/19 11/10/19 11/10/19 Range/Units 07:53 09:00 09:52 WBC (3.8-10.6) k/uL RBC (4.30-5.90) m/uL Hgb (13.0-17.5) gm/dL Hct (39.0-53.0) % MCV (80.0-100.0) fL MCHC (31.0-37.0) g/dL Plt Count (150-450) k/uL Neutrophils # (1.3-7.7) k/uL Chloride (98-107) mmol/L Glucose (74-99) mg/dL POC Glucose (mg/dL) 188 H 191 H 214 H (75-99) mg/dL Calcium (8.4-10.2) mg/dL Alkaline Phosphatase (38-126) U/L C-Reactive Protein (<10.0) mg/L Total Protein (6.3-8.2) g/dL Albumin (3.5-5.0) g/dL Urine Protein (Negative) Urine Glucose (UA) (Negative) Urine Blood (Negative) Ur Leukocyte Esterase (Negative) Urine RBC (0-5) /hpf Urine WBC (0-5) /hpf Urine Bacteria (None) /hpf Urine Mucus (None) /hpf Urine Yeast (Budding) (None) /hpf 11/10/19 11/10/19 11/10/19 Range/Units 11:08 13:03 14:18 WBC (3.8-10.6) k/uL RBC (4.30-5.90) m/uL Hgb (13.0-17.5) gm/dL Hct (39.0-53.0) % MCV (80.0-100.0) fL MCHC (31.0-37.0) g/dL Plt Count (150-450) k/uL Neutrophils # (1.3-7.7) k/uL Chloride (98-107) mmol/L Glucose (74-99) mg/dL POC Glucose (mg/dL) 158 H 121 H 135 H (75-99) mg/dL Calcium (8.4-10.2) mg/dL Alkaline Phosphatase (38-126) U/L C-Reactive Protein (<10.0) mg/L Total Protein (6.3-8.2) g/dL Albumin (3.5-5.0) g/dL Urine Protein (Negative) Urine Glucose (UA) (Negative) Urine Blood (Negative) Ur Leukocyte Esterase (Negative) Urine RBC (0-5) /hpf Urine WBC (0-5) /hpf Urine Bacteria (None) /hpf Urine Mucus (None) /hpf Urine Yeast (Budding) (None) /hpf 11/10/19 Range/Units 15:04 WBC (3.8-10.6) k/uL RBC (4.30-5.90) m/uL Hgb (13.0-17.5) gm/dL Hct (39.0-53.0) % MCV (80.0-100.0) fL MCHC (31.0-37.0) g/dL Plt Count (150-450) k/uL Neutrophils # (1.3-7.7) k/uL Chloride (98-107) mmol/L Glucose (74-99) mg/dL POC Glucose (mg/dL) 194 H (75-99) mg/dL Calcium (8.4-10.2) mg/dL Alkaline Phosphatase (38-126) U/L C-Reactive Protein (<10.0) mg/L Total Protein (6.3-8.2) g/dL Albumin (3.5-5.0) g/dL Urine Protein (Negative) Urine Glucose (UA) (Negative) Urine Blood (Negative) Ur Leukocyte Esterase (Negative) Urine RBC (0-5) /hpf Urine WBC (0-5) /hpf Urine Bacteria (None) /hpf Urine Mucus (None) /hpf Urine Yeast (Budding) (None) /hpf Microbiology - Last 24 Hours (Table) 11/10/19 00:20 Urine Culture - Preliminary Urine,Voided 10/25/19 11:35 Blood Fungal Culture - Preliminary Blood 11/05/19 10:30 Stool Culture - Final Stool [place] albicans 11/04/19 20:24 Blood Culture - Preliminary Blood No Growth after 120 hours Assessment and Plan (1) Hyponatremia Current Visit: Yes Status: Acute Code(s): E87.1 - HYPO-OSMOLALITY AND HYPONATREMIA SNOMED Code(s): 39757382 (2) Hyperkalemia Current Visit: Yes Status: Acute Code(s): E87.5 - HYPERKALEMIA SNOMED Code(s): 71238742 (3) Sigmoid diverticulitis Current Visit: Yes Status: Acute Code(s): K57.32 - DVTRCLI OF LG INT W/O PERFORATION OR ABSCESS W/O BLEEDING SNOMED Code(s): 202320370 (4) Dynamic ileus Current Visit: Yes Status: Acute Code(s): K56.7 - ILEUS, UNSPECIFIED SNOMED Code(s): 63496810 (5) Hyperosmolar syndrome Current Visit: Yes Status: Acute Code(s): E87.0 - HYPEROSMOLALITY AND HYPERNATREMIA SNOMED Code(s): 96297483 (6) Hyperosmolarity due to secondary diabetes mellitus Current Visit: Yes Status: Acute Code(s): E13.00 - OTH DIAB W HYPROSM W/O NONKET HYPRGLY-HYPROS COMA ([facility]) SNOMED Code(s): 83167390 (7) Altered mental state Current Visit: No Status: Acute Code(s): R41.82 - ALTERED MENTAL STATUS, UNSPECIFIED SNOMED Code(s): 371640877 (8) Dementia Current Visit: No Status: Acute Code(s): F03.90 - UNSPECIFIED DEMENTIA WITHOUT BEHAVIORAL DISTURBANCE SNOMED Code(s): 83105610 (9) Renal insufficiency syndrome Current Visit: No Status: Acute Code(s): N28.9 - DISORDER OF KIDNEY AND URETER, UNSPECIFIED SNOMED Code(s): 322487457 (10) Shock liver Current Visit: Yes Status: Acute Code(s): K72.00 - ACUTE AND SUBACUTE HEPATIC FAILURE WITHOUT COMA SNOMED Code(s): 417021276 (11) Sepsis Current Visit: Yes Status: Acute Code(s): A41.9 - SEPSIS, UNSPECIFIED ORGANISM SNOMED Code(s): 03135404
[2019-11-10] MEDS: LISINOPRIL 2.5 MG TAB PO SCH (10:36)
[2019-11-10] MEDS: METOPROLOL TARTRATE 25 MG TAB PO SCH ×2 (10:36→21:23)
[2019-11-10] MEDS: NYSTATIN 100,000 UNIT/ML SUSP 500,000 UNIT/5 ML CUP PO SCH ×4 (10:36→21:23)
[2019-11-10] MEDS: ASPIRIN 81 MG PO SCH (10:36)
[2019-11-10] MEDS: AMIODARONE 200 MG TAB PO SCH ×2 (10:36→21:23)
[2019-11-10] MEDS: FAMOTIDINE 20 MG TAB PO SCH ×2 (10:36→21:23)
[2019-11-10] MEDS: ANIDULAFUNGIN 100 MG in SODIUM CHLORIDE 0.9% 100 ML IVPB SCH (10:39)
[2019-11-10 12:36] LABS: Glucose,Whole Blood 158 mg/dL (75-99)
[2019-11-10 12:36] LABS: Glucose,Whole Blood 214 mg/dL (75-99)
--- NOTE | 2019-11-10 12:38 | P.PN ---
Subjective Progress Note Date: 11/10/19 80-year-old male patient known history of dementia, diabetes hypertension osteoarthritis in addition to abdominal aortic aneurysm, presented to the ED with altered mentation and severe dehydration. The patient's was noted to have elevated blood sugars at home which prompted this hospital visit. He was unable to provide any history at time of admission. He was confused and disoriented and his condition was progressively getting worse over this past few weeks. He apparently had generalized weakness, falls, and he was not seeking any medical attention. He has Alzheimer's dementia. His has Alzheimer's dementia also. Apparently his oral intake has been minimal and the patient was drinking only 4 L of soda on a daily basis. He has been noncompliant his diabetic medications also. A blood sugar of more than 1800. CAT scan of the brain shows no evidence of any acute hemorrhage. There is some degenerative changes and nonspecific white matter changes consistent with remote ischemia. This 79-year-old male patient with a prolonged ICU stay due a multitude of complications that it initially started off with severe dehydration and hyperglycemia and hyperosmolar nonketotic state with subsequent development of an abdominal sepsis secondary to bowel obstruction/ileus, acute hypoxic respiratory failure, acute kidney injury, above and beyond all of his comorbidities that were mentioned in the medical record. Note that during the course of the treatment, the patient required intubation mechanical ventilation and ultimately his condition improved and the patient was weaned off the mechanical ventilator and was extubated. The patient remains in intensive care unit. He is on 2 L of oxygen by nasal cannula. He is receiving lactated Ringer at the rate of 50 mL an hour. He is receiving enteral feeding for nutritional support in the form of Jevity 1.5 with a goal being at 55 mL an hour. He continues to have episodes of temperature and it's catheter tip has been cultured after the triple-lumen catheter was removed and showed no growth. Repeat blood cultures also showed no growth. He does have Layne albicans in his stool and urine and sputum along with evidence of oropharyngeal candidiasis and the patient was started on Eraxis as an antifungal agent. He is also on IV cefepime as a broad-spectrum antibiotic coverage. Part of his fever workup, the patient underwent a CAT scan of the abdomen and pelvis and it showed bilateral pleural effusions and bilateral lower lobe airspace consolidation and atelectasis. There was no evidence of any pericardial effusion. There were multiple hypodense irregular areas in the periphery of the liver measuring up to 5 cm in size. This could be potentially multiple infarcts. There is a similar 5 x 3 hypodensity in the posterior spleen. The bile duct was within normal limits. No evidence of any pancreatic mass. Multiple small calcified gallstones. There was multiple fluid filled distended small loops of small lisset l. The oral contrast extended into the ileum. Small amount of contrast extended to the cecum at the level of the ileocecal valve. No transition point was seen. There was some mild wall thickening of the sigmoid colon. 4.3 cm aneurysm of the lower abdominal aorta and aortoiliac stents were also noted again. There is abdominal ascites. No evidence of any free air. Lumbar spine was intact and there is no evidence of any compression fractures. The chest x- ray was done showed stable findings along with some lower lung volumes and pulmonary vascular congestion. The patient's stool for C. diff that was collected on 11/05/2019 was also negative. The patient has normal liver function tests. Alkaline phosphatase is 171. The white cell count is not elevated. NG tube is in place and the patient is being trialed on alternative formula as the patient's been having ongoing diarrhea. Testing of the C. diff on 2 separate occasions were negative and the patient's stool output had improved following his tube feeds being held. He is currently receiving enteral feeding in the form of Jevity at the rate of 45 mL an hour with a goal of 55. His T-max was 100.4. He is on insulin drip at 2 units an hour. He is on lactated Ringer at 50 mL's an hour. He did normal sinus rhythm. Mental status is impaired and the patient is awake and alert 1. The patient continues to be quite weak and debilitated. The patient's abdomen is slightly distended and he has some minimal direct tenderness. CAT scan of the abdomen was again noted. Objective - Vital Signs Vital signs: Vital Signs Temp 100.9 F H 11/10/19 08:00 Pulse 92 11/10/19 11:00 Resp 28 H 11/10/19 11:00 BP 117/51 11/10/19 11:00 Pulse Ox 92 L 11/10/19 11:00 Intake & Output 11/09/19 11/10/19 11/10/19 18:59 06:59 18:59 Intake Total 8311.439 0842.792 621.532 Output Total 795 675 290 Balance 226.624 472.792 331.532 Weight 81 kg Intake: IV 600 600 250 Lactated Ringers 1,000 ml 600 600 250 @ 50 mls/hr IV .Q20H [facility] Rx#:[id number] Intake, IV Titration 21.624 127.792 116.532 Amount Cefepime 2 gm In Sodium 100 100 Chloride 0.9% 100 ml @ 200 mls/hr IVPB Q12H IN[facility] Rx#:[id number] Insulin Regular 100 unit 21.624 27.792 16.532 In Sodium Chloride 0.9% 100 ml @ Per Protocol IV .Q0M IN[facility] Rx#:[id number] Tube Feeding 370 360 225 Other 30 60 30 Output: Urine 795 675 290 Other: Voiding Method Indwelling Catheter Indwelling Catheter ABP, PAP, CO, CI - Last Documented Arterial Blood Pressure 145/58 - Exam Gen. appearance the patient is Calm and comfortable and he is not in acute respiratory distress, the patient has an NG tube in place and is receiving enteral feeding for nutritional support Head exam was generally normal. There was no scleral icterus or corneal arcus. Mucous membranes were dry, the patient has an NG tube in place Neck was supple and without jugular venous distension, thyromegaly, or carotid bruits. Carotids were easily palpable bilaterally. There was no adenopathy. The patient has a left subclavian triple-lumen catheter in place Lungs were clear to auscultation and percussion, and with normal diaphragmatic excursion. No wheezes or rales were noted. Cardiac exam revealed the PMI to be normally situated and sized. The rhythm was regular and no extrasystoles were noted during several minutes of auscultation. The first and second heart sounds were normal and physiologic splitting of the second heart sound was noted. There were no murmurs, rubs, clicks, or gallops. Abdominal exam revealed normal bowel sounds. The patient has hypoactive bowel sounds. The abdomen is slightly distended. There is some mild direct tenderness. Bowel sounds are hypoactive at the present. No organomegaly. No rebound tenderness. No guarding. Extremities reveal chronic ulceration lower extremities bilaterally with diminished pulses. No cyanosis or clubbing. There is no open wounds or cellulitis in the lower extremities. Neurologic the patient is oriented only to person. Global weakness. No focal neurological deficits - Labs CBC & Chem 7: 11/10/19 04:17 11/10/19 04:17 Labs: Abnormal Lab Results - Last 24 Hours (Table) 11/09/19 11/09/19 11/09/19 Range/Units 13:19 14:20 14:21 WBC (3.8-10.6) k/uL RBC (4.30-5.90) m/uL Hgb (13.0-17.5) gm/dL Hct (39.0-53.0) % MCV (80.0-100.0) fL MCHC (31.0-37.0) g/dL Plt Count (150-450) k/uL Neutrophils # (1.3-7.7) k/uL Chloride (98-107) mmol/L Glucose (74-99) mg/dL POC Glucose (mg/dL) 190 H 138 H 143 H (75-99) mg/dL Calcium (8.4-10.2) mg/dL Alkaline Phosphatase (38-126) U/L C-Reactive Protein (<10.0) mg/L Total Protein (6.3-8.2) g/dL Albumin (3.5-5.0) g/dL Urine Protein (Negative) Urine Glucose (UA) (Negative) Urine Blood (Negative) Ur Leukocyte Esterase (Negative) Urine RBC (0-5) /hpf Urine WBC (0-5) /hpf Urine Bacteria (None) /hpf Urine Mucus (None) /hpf Urine Yeast (Budding) (None) /hpf 11/09/19 11/09/19 11/09/19 Range/Units 15:21 16:03 16:29 WBC (3.8-10.6) k/uL RBC (4.30-5.90) m/uL Hgb (13.0-17.5) gm/dL Hct (39.0-53.0) % MCV (80.0-100.0) fL MCHC (31.0-37.0) g/dL Plt Count (150-450) k/uL Neutrophils # (1.3-7.7) k/uL Chloride (98-107) mmol/L Glucose (74-99) mg/dL POC Glucose (mg/dL) 133 H 201 H (75-99) mg/dL Calcium (8.4-10.2) mg/dL Alkaline Phosphatase (38-126) U/L C-Reactive Protein 79.2 H (<10.0) mg/L Total Protein (6.3-8.2) g/dL Albumin (3.5-5.0) g/dL Urine Protein (Negative) Urine Glucose (UA) (Negative) Urine Blood (Negative) Ur Leukocyte Esterase (Negative) Urine RBC (0-5) /hpf Urine WBC (0-5) /hpf Urine Bacteria (None) /hpf Urine Mucus (None) /hpf Urine Yeast (Budding) (None) /hpf 11/09/19 11/09/19 11/09/19 Range/Units 16:57 18:16 18:52 WBC (3.8-10.6) k/uL RBC (4.30-5.90) m/uL Hgb (13.0-17.5) gm/dL Hct (39.0-53.0) % MCV (80.0-100.0) fL MCHC (31.0-37.0) g/dL Plt Count (150-450) k/uL Neutrophils # (1.3-7.7) k/uL Chloride (98-107) mmol/L Glucose (74-99) mg/dL POC Glucose (mg/dL) 167 H 210 H 228 H (75-99) mg/dL Calcium (8.4-10.2) mg/dL Alkaline Phosphatase (38-126) U/L C-Reactive Protein (<10.0) mg/L Total Protein (6.3-8.2) g/dL Albumin (3.5-5.0) g/dL Urine Protein (Negative) Urine Glucose (UA) (Negative) Urine Blood (Negative) Ur Leukocyte Esterase (Negative) Urine RBC (0-5) /hpf Urine WBC (0-5) /hpf Urine Bacteria (None) /hpf Urine Mucus (None) /hpf Urine Yeast (Budding) (None) /hpf 11/09/19 11/09/19 11/09/19 Range/Units 20:00 21:02 22:17 WBC (3.8-10.6) k/uL RBC (4.30-5.90) m/uL Hgb (13.0-17.5) gm/dL Hct (39.0-53.0) % MCV (80.0-100.0) fL MCHC (31.0-37.0) g/dL Plt Count (150-450) k/uL Neutrophils # (1.3-7.7) k/uL Chloride (98-107) mmol/L Glucose (74-99) mg/dL POC Glucose (mg/dL) 194 H 186 H 128 H (75-99) mg/dL Calcium (8.4-10.2) mg/dL Alkaline Phosphatase (38-126) U/L C-Reactive Protein (<10.0) mg/L Total Protein (6.3-8.2) g/dL Albumin (3.5-5.0) g/dL Urine Protein (Negative) Urine Glucose (UA) (Negative) Urine Blood (Negative) Ur Leukocyte Esterase (Negative) Urine RBC (0-5) /hpf Urine WBC (0-5) /hpf Urine Bacteria (None) /hpf Urine Mucus (None) /hpf Urine Yeast (Budding) (None) /hpf 11/09/19 11/09/19 11/10/19 Range/Units 22:19 22:55 00:12 WBC (3.8-10.6) k/uL RBC (4.30-5.90) m/uL Hgb (13.0-17.5) gm/dL Hct (39.0-53.0) % MCV (80.0-100.0) fL MCHC (31.0-37.0) g/dL Plt Count (150-450) k/uL Neutrophils # (1.3-7.7) k/uL Chloride (98-107) mmol/L Glucose (74-99) mg/dL POC Glucose (mg/dL) 127 H 133 H 175 H (75-99) mg/dL Calcium (8.4-10.2) mg/dL Alkaline Phosphatase (38-126) U/L C-Reactive Protein (<10.0) mg/L Total Protein (6.3-8.2) g/dL Albumin (3.5-5.0) g/dL Urine Protein (Negative) Urine Glucose (UA) (Negative) Urine Blood (Negative) Ur Leukocyte Esterase (Negative) Urine RBC (0-5) /hpf Urine WBC (0-5) /hpf Urine Bacteria (None) /hpf Urine Mucus (None) /hpf Urine Yeast (Budding) (None) /hpf 11/10/19 11/10/19 11/10/19 Range/Units 00:20 00:59 02:01 WBC (3.8-10.6) k/uL RBC (4.30-5.90) m/uL Hgb (13.0-17.5) gm/dL Hct (39.0-53.0) % MCV (80.0-100.0) fL MCHC (31.0-37.0) g/dL Plt Count (150-450) k/uL Neutrophils # (1.3-7.7) k/uL Chloride (98-107) mmol/L Glucose (74-99) mg/dL POC Glucose (mg/dL) 191 H 234 H (75-99) mg/dL Calcium (8.4-10.2) mg/dL Alkaline Phosphatase (38-126) U/L C-Reactive Protein (<10.0) mg/L Total Protein (6.3-8.2) g/dL Albumin (3.5-5.0) g/dL Urine Protein 1+ H (Negative) Urine Glucose (UA) 1+ H (Negative) Urine Blood Small H (Negative) Ur Leukocyte Esterase Moderate H (Negative) Urine RBC 20 H (0-5) /hpf Urine WBC 27 H (0-5) /hpf Urine Bacteria Rare H (None) /hpf Urine Mucus Rare H (None) /hpf Urine Yeast (Budding) Occasional H (None) /hpf 11/10/19 11/10/19 11/10/19 Range/Units 03:07 03:57 04:17 WBC 14.2 H (3.8-10.6) k/uL RBC 2.66 L (4.30-5.90) m/uL Hgb 8.6 L (13.0-17.5) gm/dL Hct 28.0 L (39.0-53.0) % MCV 105.3 H (80.0-100.0) fL MCHC 30.8 L (31.0-37.0) g/dL Plt Count 745 H (150-450) k/uL Neutrophils # 11.7 H (1.3-7.7) k/uL Chloride (98-107) mmol/L Glucose (74-99) mg/dL POC Glucose (mg/dL) 213 H 180 H (75-99) mg/dL Calcium (8.4-10.2) mg/dL Alkaline Phosphatase (38-126) U/L C-Reactive Protein (<10.0) mg/L Total Protein (6.3-8.2) g/dL Albumin (3.5-5.0) g/dL Urine Protein (Negative) Urine Glucose (UA) (Negative) Urine Blood (Negative) Ur Leukocyte Esterase (Negative) Urine RBC (0-5) /hpf Urine WBC (0-5) /hpf Urine Bacteria (None) /hpf Urine Mucus (None) /hpf Urine Yeast (Budding) (None) /hpf 11/10/19 11/10/19 11/10/19 Range/Units 04:17 05:06 05:56 WBC (3.8-10.6) k/uL RBC (4.30-5.90) m/uL Hgb (13.0-17.5) gm/dL Hct (39.0-53.0) % MCV (80.0-100.0) fL MCHC (31.0-37.0) g/dL Plt Count (150-450) k/uL Neutrophils # (1.3-7.7) k/uL Chloride 109 H (98-107) mmol/L Glucose 157 H (74-99) mg/dL POC Glucose (mg/dL) 150 H 154 H (75-99) mg/dL Calcium 7.8 L (8.4-10.2) mg/dL Alkaline Phosphatase 166 H (38-126) U/L C-Reactive Protein (<10.0) mg/L Total Protein 5.8 L (6.3-8.2) g/dL Albumin 2.2 L (3.5-5.0) g/dL Urine Protein (Negative) Urine Glucose (UA) (Negative) Urine Blood (Negative) Ur Leukocyte Esterase (Negative) Urine RBC (0-5) /hpf Urine WBC (0-5) /hpf Urine Bacteria (None) /hpf Urine Mucus (None) /hpf Urine Yeast (Budding) (None) /hpf 11/10/19 11/10/19 11/10/19 Range/Units 07:05 07:53 09:00 WBC (3.8-10.6) k/uL RBC (4.30-5.90) m/uL Hgb (13.0-17.5) gm/dL Hct (39.0-53.0) % MCV (80.0-100.0) fL MCHC (31.0-37.0) g/dL Plt Count (150-450) k/uL Neutrophils # (1.3-7.7) k/uL Chloride (98-107) mmol/L Glucose (74-99) mg/dL POC Glucose (mg/dL) 176 H 188 H 191 H (75-99) mg/dL Calcium (8.4-10.2) mg/dL Alkaline Phosphatase (38-126) U/L C-Reactive Protein (<10.0) mg/L Total Protein (6.3-8.2) g/dL Albumin (3.5-5.0) g/dL Urine Protein (Negative) Urine Glucose (UA) (Negative) Urine Blood (Negative) Ur Leukocyte Esterase (Negative) Urine RBC (0-5) /hpf Urine WBC (0-5) /hpf Urine Bacteria (None) /hpf Urine Mucus (None) /hpf Urine Yeast (Budding) (None) /hpf Microbiology - Last 24 Hours (Table) 11/10/19 00:20 Urine Culture - Preliminary Urine,Voided 10/25/19 11:35 Blood Fungal Culture - Preliminary Blood 11/05/19 10:30 Stool Culture - Final Stool Layne albicans 11/04/19 20:24 Blood Culture - Preliminary Blood No Growth after 120 hours 11/07/19 04:21 Gram Stain - Final Sputum Sputum Culture - Final Layne albicans Assessment and Plan Plan: 1 shock with profound hypotension recovered, likely secondary to an abdominal source of the sepsis. The patient is still having diarrhea. The patient had a follow-up CAT scan of the abdomen that showed distended small bowel without any transition point. Consider possibility of a ileus still in general surgeries on the case. NG tube is in place. The patient is receiving enteral feeding. The patient is having liquidy stool with a negative stool for C. diff. 2 acute abdominal distention/pain with further workup indicating small bowel ileus/obstruction which ultimately recovered and the patient has an NG for enteral feeding and nutritional support 3 acute hyperosmolar nonketotic diabetic syndrome with severe hyperglycemia and intravascular volume depletion/dehydration, recovered 4 acute kidney injury , Recovered 5 acut hypoxic respiratory failure, currently intubated on a mechanical ventilator, Recovered 6 altered mental status when underlying component of dementia, still confused and alert and oriented 1 7 diabetes mellitus, maintained oral hypoglycemics with poor compliance, currently on insulin drip 8 alzheimer's dementia 9 pseudohyponatremia, related to severe hyperglycemia, recovered 10 History of hypertension 11 diarrhea likely secondary to enteral feeding and the C. diff evaluation on 2 separate occasions were negative 12 4.6 cm distal abdominal aortic aneurysm extending to the aortic bifurcation and involving the common iliac arteries with indwelling BILATERAL ILIAC ENDOLUMINAL STENT GRAFT, Unchanged in the most recent CAT scan of the abdomen and pelvis 13 peripheral vascular disease 14 troponin leak, consider Ischemia type 2, the troponin peaked at 2.25 15 acute shock liver secondary to hypotension , recovered 16 CHF with ischemic cardiomyopathy and ejection fraction of 30-35% in addition to old OK involving the anteroseptal and apical segments of the heart and left ventricle consistent with EKG findings. 17 severe lactic acidosis secondary to to above, recovered 18 oropharyngeal candidiasis in addition to Layne and the stool in the urine currently on Eraxis 19 episodic fever under investigation currently on a combination of iV cefepime and Eraxis Plan Continue IV cefepime and Eraxis as broad-spectrum antibiotic coverage Continue enteral feeding for nutritional support Monitor the stool output Monitor the fever pattern Monitor the abdominal exam is the patient is felt to be slightly more distended and tender on today's evaluation General surgeries for on the case CAT scan of the abdomen was noted We'll continue the supportive care will make further recommendations based on his progress. The patient is weak and quite debilitated. He has multiple comorbidities. His long-term prognosis poor based above-mentioned comorbidities. We'll continue to follow.
[2019-11-10 13:05] LABS: Glucose,Whole Blood 121 mg/dL (75-99)
[2019-11-10] MEDS: SODIUM CHLORIDE 0.9% 500 ML 500 ML IV SCH (13:21)
[2019-11-10 14:19] LABS: Glucose,Whole Blood 135 mg/dL (75-99)
[2019-11-10 15:06] LABS: Glucose,Whole Blood 194 mg/dL (75-99)
--- NOTE | 2019-11-10 17:33 | P.PN ---
Subjective Progress Note Date: 11/10/19 Neurological follow-up requested by Dr. Fernandes. Patient was seen by Dr. Jose initially on 10/29/2019, and a follow-up on 11/04/2019. Reviewed her notes. Patient came to the hospital with acute nonketotic hyperosmolar diabetes with severe hyperglycemia. Patient subsequently developed respiratory failure requiring intubation. He also had septic shock, with kidney failure and ischemic hepatitis. He also has atrial fibrillation. Patient was extubated on 11/03/2019. Patient continues to be delirious. Please refer to examination below. Patient's blood test shows WBC 14.2 hemoglobin 8.6, with elevated MCV 105.3. Platelets are 745. Chem-7 included liver functions are normal. Liver functions normal. B12 463 on 11/08/2019, folate 13.2. TFTs normal. Objective - Vital Signs Vital signs: Vital Signs Temp 99.1 F 11/10/19 12:00 Pulse 85 11/10/19 14:00 Resp 23 11/10/19 14:00 BP 113/60 11/10/19 14:00 Pulse Ox 95 11/10/19 14:00 Intake & Output 11/09/19 11/10/19 11/10/19 18:59 06:59 18:59 Intake Total 6247.212 2245.792 825.740 Output Total 795 675 395 Balance 226.624 472.792 430.740 Weight 81 kg Intake: IV 600 600 350 Lactated Ringers 1,000 ml 600 600 350 @ 50 mls/hr IV .Q20H [facility] Rx#:[id number] Intake, IV Titration 21.624 127.792 120.740 Amount Cefepime 2 gm In Sodium 100 100 Chloride 0.9% 100 ml @ 200 mls/hr IVPB Q12H IN[facility] Rx#:[id number] Insulin Regular 100 unit 21.624 27.792 20.740 In Sodium Chloride 0.9% 100 ml @ Per Protocol IV .Q0M INDU Rx#:[id number] Tube Feeding 370 360 325 Other 30 60 30 Output: Urine 795 675 395 Other: Voiding Method Indwelling Catheter Indwelling Catheter ABP, PAP, CO, CI - Last Documented Arterial Blood Pressure 145/58 - Exam Patient is quite alert and awake. Appears to moan at times. Knows his name, states is 81 years of age, but could not tell where he is at, or was the president. Patient has very impaired attention and concentration. Pupils are round and reacting. Visual flores could not be tested. He does acknowledge bilateral visual flores. Face appears symmetric. 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 Patient can wiggle his toes bilaterally. Reflexes are diminished. - Labs CBC & Chem 7: 11/10/19 04:17 11/10/19 04:17 Labs: Abnormal Lab Results - Last 24 Hours (Table) 11/09/19 11/09/19 11/09/19 Range/Units 15:21 16:03 16:29 WBC (3.8-10.6) k/uL RBC (4.30-5.90) m/uL Hgb (13.0-17.5) gm/dL Hct (39.0-53.0) % MCV (80.0-100.0) fL MCHC (31.0-37.0) g/dL Plt Count (150-450) k/uL Neutrophils # (1.3-7.7) k/uL Chloride (98-107) mmol/L Glucose (74-99) mg/dL POC Glucose (mg/dL) 133 H 201 H (75-99) mg/dL Calcium (8.4-10.2) mg/dL Alkaline Phosphatase (38-126) U/L C-Reactive Protein 79.2 H (<10.0) mg/L Total Protein (6.3-8.2) g/dL Albumin (3.5-5.0) g/dL Urine Protein (Negative) Urine Glucose (UA) (Negative) Urine Blood (Negative) Ur Leukocyte Esterase (Negative) Urine RBC (0-5) /hpf Urine WBC (0-5) /hpf Urine Bacteria (None) /hpf Urine Mucus (None) /hpf Urine Yeast (Budding) (None) /hpf 11/09/19 11/09/19 11/09/19 Range/Units 16:57 18:16 18:52 WBC (3.8-10.6) k/uL RBC (4.30-5.90) m/uL Hgb (13.0-17.5) gm/dL Hct (39.0-53.0) % MCV (80.0-100.0) fL MCHC (31.0-37.0) g/dL Plt Count (150-450) k/uL Neutrophils # (1.3-7.7) k/uL Chloride (98-107) mmol/L Glucose (74-99) mg/dL POC Glucose (mg/dL) 167 H 210 H 228 H (75-99) mg/dL Calcium (8.4-10.2) mg/dL Alkaline Phosphatase (38-126) U/L C-Reactive Protein (<10.0) mg/L Total Protein (6.3-8.2) g/dL Albumin (3.5-5.0) g/dL Urine Protein (Negative) Urine Glucose (UA) (Negative) Urine Blood (Negative) Ur Leukocyte Esterase (Negative) Urine RBC (0-5) /hpf Urine WBC (0-5) /hpf Urine Bacteria (None) /hpf Urine Mucus (None) /hpf Urine Yeast (Budding) (None) /hpf 11/09/19 11/09/19 11/09/19 Range/Units 20:00 21:02 22:17 WBC (3.8-10.6) k/uL RBC (4.30-5.90) m/uL Hgb (13.0-17.5) gm/dL Hct (39.0-53.0) % MCV (80.0-100.0) fL MCHC (31.0-37.0) g/dL Plt Count (150-450) k/uL Neutrophils # (1.3-7.7) k/uL Chloride (98-107) mmol/L Glucose (74-99) mg/dL POC Glucose (mg/dL) 194 H 186 H 128 H (75-99) mg/dL Calcium (8.4-10.2) mg/dL Alkaline Phosphatase (38-126) U/L C-Reactive Protein (<10.0) mg/L Total Protein (6.3-8.2) g/dL Albumin (3.5-5.0) g/dL Urine Protein (Negative) Urine Glucose (UA) (Negative) Urine Blood (Negative) Ur Leukocyte Esterase (Negative) Urine RBC (0-5) /hpf Urine WBC (0-5) /hpf Urine Bacteria (None) /hpf Urine Mucus (None) /hpf Urine Yeast (Budding) (None) /hpf 11/09/19 11/09/19 11/10/19 Range/Units 22:19 22:55 00:12 WBC (3.8-10.6) k/uL RBC (4.30-5.90) m/uL Hgb (13.0-17.5) gm/dL Hct (39.0-53.0) % MCV (80.0-100.0) fL MCHC (31.0-37.0) g/dL Plt Count (150-450) k/uL Neutrophils # (1.3-7.7) k/uL Chloride (98-107) mmol/L Glucose (74-99) mg/dL POC Glucose (mg/dL) 127 H 133 H 175 H (75-99) mg/dL Calcium (8.4-10.2) mg/dL Alkaline Phosphatase (38-126) U/L C-Reactive Protein (<10.0) mg/L Total Protein (6.3-8.2) g/dL Albumin (3.5-5.0) g/dL Urine Protein (Negative) Urine Glucose (UA) (Negative) Urine Blood (Negative) Ur Leukocyte Esterase (Negative) Urine RBC (0-5) /hpf Urine WBC (0-5) /hpf Urine Bacteria (None) /hpf Urine Mucus (None) /hpf Urine Yeast (Budding) (None) /hpf 11/10/19 11/10/19 11/10/19 Range/Units 00:20 00:59 02:01 WBC (3.8-10.6) k/uL RBC (4.30-5.90) m/uL Hgb (13.0-17.5) gm/dL Hct (39.0-53.0) % MCV (80.0-100.0) fL MCHC (31.0-37.0) g/dL Plt Count (150-450) k/uL Neutrophils # (1.3-7.7) k/uL Chloride (98-107) mmol/L Glucose (74-99) mg/dL POC Glucose (mg/dL) 191 H 234 H (75-99) mg/dL Calcium (8.4-10.2) mg/dL Alkaline Phosphatase (38-126) U/L C-Reactive Protein (<10.0) mg/L Total Protein (6.3-8.2) g/dL Albumin (3.5-5.0) g/dL Urine Protein 1+ H (Negative) Urine Glucose (UA) 1+ H (Negative) Urine Blood Small H (Negative) Ur Leukocyte Esterase Moderate H (Negative) Urine RBC 20 H (0-5) /hpf Urine WBC 27 H (0-5) /hpf Urine Bacteria Rare H (None) /hpf Urine Mucus Rare H (None) /hpf Urine Yeast (Budding) Occasional H (None) /hpf 11/10/19 11/10/19 11/10/19 Range/Units 03:07 03:57 04:17 WBC 14.2 H (3.8-10.6) k/uL RBC 2.66 L (4.30-5.90) m/uL Hgb 8.6 L (13.0-17.5) gm/dL Hct 28.0 L (39.0-53.0) % MCV 105.3 H (80.0-100.0) fL MCHC 30.8 L (31.0-37.0) g/dL Plt Count 745 H (150-450) k/uL Neutrophils # 11.7 H (1.3-7.7) k/uL Chloride (98-107) mmol/L Glucose (74-99) mg/dL POC Glucose (mg/dL) 213 H 180 H (75-99) mg/dL Calcium (8.4-10.2) mg/dL Alkaline Phosphatase (38-126) U/L C-Reactive Protein (<10.0) mg/L Total Protein (6.3-8.2) g/dL Albumin (3.5-5.0) g/dL Urine Protein (Negative) Urine Glucose (UA) (Negative) Urine Blood (Negative) Ur Leukocyte Esterase (Negative) Urine RBC (0-5) /hpf Urine WBC (0-5) /hpf Urine Bacteria (None) /hpf Urine Mucus (None) /hpf Urine Yeast (Budding) (None) /hpf 11/10/19 11/10/19 11/10/19 Range/Units 04:17 05:06 05:56 WBC (3.8-10.6) k/uL RBC (4.30-5.90) m/uL Hgb (13.0-17.5) gm/dL Hct (39.0-53.0) % MCV (80.0-100.0) fL MCHC (31.0-37.0) g/dL Plt Count (150-450) k/uL Neutrophils # (1.3-7.7) k/uL Chloride 109 H (98-107) mmol/L Glucose 157 H (74-99) mg/dL POC Glucose (mg/dL) 150 H 154 H (75-99) mg/dL Calcium 7.8 L (8.4-10.2) mg/dL Alkaline Phosphatase 166 H (38-126) U/L C-Reactive Protein (<10.0) mg/L Total Protein 5.8 L (6.3-8.2) g/dL Albumin 2.2 L (3.5-5.0) g/dL Urine Protein (Negative) Urine Glucose (UA) (Negative) Urine Blood (Negative) Ur Leukocyte Esterase (Negative) Urine RBC (0-5) /hpf Urine WBC (0-5) /hpf Urine Bacteria (None) /hpf Urine Mucus (None) /hpf Urine Yeast (Budding) (None) /hpf 11/10/19 11/10/19 11/10/19 Range/Units 07:05 07:53 09:00 WBC (3.8-10.6) k/uL RBC (4.30-5.90) m/uL Hgb (13.0-17.5) gm/dL Hct (39.0-53.0) % MCV (80.0-100.0) fL MCHC (31.0-37.0) g/dL Plt Count (150-450) k/uL Neutrophils # (1.3-7.7) k/uL Chloride (98-107) mmol/L Glucose (74-99) mg/dL POC Glucose (mg/dL) 176 H 188 H 191 H (75-99) mg/dL Calcium (8.4-10.2) mg/dL Alkaline Phosphatase (38-126) U/L C-Reactive Protein (<10.0) mg/L Total Protein (6.3-8.2) g/dL Albumin (3.5-5.0) g/dL Urine Protein (Negative) Urine Glucose (UA) (Negative) Urine Blood (Negative) Ur Leukocyte Esterase (Negative) Urine RBC (0-5) /hpf Urine WBC (0-5) /hpf Urine Bacteria (None) /hpf Urine Mucus (None) /hpf Urine Yeast (Budding) (None) /hpf 11/10/19 11/10/19 11/10/19 Range/Units 09:52 11:08 13:03 WBC (3.8-10.6) k/uL RBC (4.30-5.90) m/uL Hgb (13.0-17.5) gm/dL Hct (39.0-53.0) % MCV (80.0-100.0) fL MCHC (31.0-37.0) g/dL Plt Count (150-450) k/uL Neutrophils # (1.3-7.7) k/uL Chloride (98-107) mmol/L Glucose (74-99) mg/dL POC Glucose (mg/dL) 214 H 158 H 121 H (75-99) mg/dL Calcium (8.4-10.2) mg/dL Alkaline Phosphatase (38-126) U/L C-Reactive Protein (<10.0) mg/L Total Protein (6.3-8.2) g/dL Albumin (3.5-5.0) g/dL Urine Protein (Negative) Urine Glucose (UA) (Negative) Urine Blood (Negative) Ur Leukocyte Esterase (Negative) Urine RBC (0-5) /hpf Urine WBC (0-5) /hpf Urine Bacteria (None) /hpf Urine Mucus (None) /hpf Urine Yeast (Budding) (None) /hpf 11/10/19 Range/Units 14:18 WBC (3.8-10.6) k/uL RBC (4.30-5.90) m/uL Hgb (13.0-17.5) gm/dL Hct (39.0-53.0) % MCV (80.0-100.0) fL MCHC (31.0-37.0) g/dL Plt Count (150-450) k/uL Neutrophils # (1.3-7.7) k/uL Chloride (98-107) mmol/L Glucose (74-99) mg/dL POC Glucose (mg/dL) 135 H (75-99) mg/dL Calcium (8.4-10.2) mg/dL Alkaline Phosphatase (38-126) U/L C-Reactive Protein (<10.0) mg/L Total Protein (6.3-8.2) g/dL Albumin (3.5-5.0) g/dL Urine Protein (Negative) Urine Glucose (UA) (Negative) Urine Blood (Negative) Ur Leukocyte Esterase (Negative) Urine RBC (0-5) /hpf Urine WBC (0-5) /hpf Urine Bacteria (None) /hpf Urine Mucus (None) /hpf Urine Yeast (Budding) (None) /hpf Microbiology - Last 24 Hours (Table) 11/10/19 00:20 Urine Culture - Preliminary Urine,Voided 10/25/19 11:35 Blood Fungal Culture - Preliminary Blood 11/05/19 10:30 Stool Culture - Final Stool Layne albicans 11/04/19 20:24 Blood Culture - Preliminary Blood No Growth after 120 hours Assessment and Plan Assessment: * Altered mental status, likely related to toxic metabolic encephalopathy. Patient has multiple medical/surgical issues mentioned as below. * Status post ventilatory-dependent respiratory failure * Status post septic shock. * Status post pneumonia * Status post nonketotic hyperosmolar state with poorly controlled diabetes. 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 Plan: * Patient continues to have toxic metabolic encephalopathy. He continues to be running low-grade fever suggestive of occult infection. * Neurologically, patient's mentation is related to his underlying multiple medical issues as mentioned above. Examination is relatively nonfocal. * We will follow.
[2019-11-10 18:09] LABS: Glucose,Whole Blood 237 mg/dL (75-99)
[2019-11-10 18:52] LABS: Glucose,Whole Blood 266 mg/dL (75-99)
--- NOTE | 2019-11-10 19:07 | P.PN ---
Progress Note - Text Progress Note Date: 11/10/19 Interval history: 79-year-old male with PMH of diabetes mellitus on oral hypoglycemics, con pascual presents the ED for altered mentation. Apparently, patient was visited by his nurse who noted an extremely high blood glucose which prompted his hospital visit. Patient is altered and he is unable to provide any meaningful history. Majority of documentation was obtained from chart review and discussion with his son. Apparently, patient has been confused and disoriented which is progressive ly been worsening over the past 2 weeks. His son reports that the patient fell a week ago and did not seek medical attention. Patient lives with his who is suffering from advanced Alzheimer's dementia and is currently in hospice. According to the son, patient drinks 4 L of soda on a daily basis. Son reports that patient is noncompliant with her diabetic diet. In the ED, vital signs showed a T low of 97.5 Fahrenheit, pulse of 102, tachypnea with respiratory rate of 28, BP of 85/49 and 89% on room air. CBC showed leukocytosis of 11 and MCV of 124.1. ABG showed pH of 7, pCO2 19, bica rbonate of 8. CMP showed sodium of 116, potassium of 5.7, chloride of 74, bicarbonate of 8, BUN 33, creatinine 2.18, glucose greater than 1875. Troponin was 0.881 with EKG showing sinus tachycardia. Urinalysis shows 4+ glucose and trace blood. Acetone was negative. CT brain was negative for hemorrhage but showed slightly hyperdense left MCA compared to right. Chest x-ray showed possible right lower lobe infiltrate. Patient is admitted to ICU for sepsis, troponin elevation and diabetic ketoacidosis. Intubated. Patient developed ischemic hepatitis. Sepsis. Also developed bowel obstruction-that corrected on its own. Seen by neurology. Patient's felt to have anoxic brain injury. Patient was extubated on November 01 Today-ICU. FMS in place-remains on insulin drip and IV and IV anidulafungin. Lethargic but arousable. No focal weakness. In and out of atrial fibrillation. Tolerating new 2 feeding that is JVD. Diarrhea is better controlled. Review of systems cannot be done as patient is lethargic Active Medications Acetaminophen (Tylenol Tab) 650 mg PO Q6HR PRN PRN Reason: Fever and/ or Pain Last Admin: 11/10/19 18:15 Dose: 650 mg Documented by: Amiodarone HCl (Cordarone) 200 mg PO BID [facility] Last Admin: 11/10/19 10:36 Dose: 200 mg Documented by: Aspirin (Aspirin) 81 mg PO DAILY [facility] Last Admin: 11/10/19 10:36 Dose: 81 mg Documented by: Famotidine (Pepcid) 20 mg PO BID [facility] Last Admin: 11/10/19 10:36 Dose: 20 mg Documented by: Heparin Sodium (Porcine) (Heparin) 5,000 unit SQ Q8HR [facility] Last Admin: 11/10/19 18:15 Dose: 5,000 unit Documented by: Hydromorphone HCl (Dilaudid) 0.5 mg IVP Q2HR PRN PRN Reason: Pain Last Admin: 11/10/19 03:10 Dose: 0.5 mg Documented by: Insulin Human Regular 100 unit (/ Sodium Chloride) 101 mls @ 0 mls/hr IV .Q0M [facility]; Protocol Last Titration: 11/10/19 18:08 Dose: 5.5 unit/hr, 5.555 mls/hr Documented by: Sodium Chloride (Saline 0.9%) 500 mls @ 10 mls/hr IV .Q24H [facility] Last Admin: 11/10/19 13:21 Dose: 10 mls/hr Documented by: Lactated Ringer's (Lactated Ringers) 1,000 mls @ 50 mls/hr IV .Q20H [facility] Last Admin: 11/10/19 05:16 Dose: 50 mls/hr Documented by: Anidulafungin 100 mg/ Sodium (Chloride) 100 mls @ 84 mls/hr IVPB DAILY [facility] Last Admin: 11/10/19 10:39 Dose: 84 mls/hr Documented by: Cefepime HCl 2 gm/ Sodium (Chloride) 100 mls @ 200 mls/hr IVPB Q12H [facility] Last Admin: 11/10/19 18:15 Dose: 200 mls/hr Documented by: Lisinopril (Zestril) 2.5 mg PO DAILY [facility] Last Admin: 11/10/19 10:36 Dose: 2.5 mg Documented by: Metoprolol Tartrate (Lopressor) 25 mg PO BID [facility] Last Admin: 11/10/19 10:36 Dose: 25 mg Documented by: Miscellaneous Information (Pneumonia Protocol Utilized) 1 each PO ONCE PRN PRN Reason: Per Protocol Miscellaneous Information (Magnesium Per Protocol) 1 each MISCELLANE DAILY PRN; Protocol PRN Reason: Per Protocol Miscellaneous Information (Phosphorus Per Protocol) 1 each MISCELLANE DAILY PRN; Protocol PRN Reason: Per Protocol Miscellaneous Information (Potassium Per Protocol) 1 each MISCELLANE DAILY PRN; Protocol PRN Reason: Per Protocol Naloxone HCl (Narcan) 0.2 mg IV Q2M PRN PRN Reason: Opioid Reversal Nystatin (Mycostatin Oral Susp) 500,000 unit PO QID [facility] Last Admin: 11/10/19 18:15 Dose: 500,000 unit Documented by: On examination: VITAL SIGNS: 99.9, 92, 29, 120/58, 91% on 2 L GENERAL APPEARANCE: laying in bed, lethargic but arousable HEENT: Normal external appearance of nose and ear. , NG tube. Oral cavity dry EYES: Pupils equal. Conjunctiva normal. NECK: JVD unable to assess. Mass not palpable. RESPIRATORY: Respiratory effort increased. Lungs -decreased breath sounds CARDIOVASCULAR: First and second sounds normal. Some edema. ABDOMEN: Soft. Liver and spleen not palpable. No tenderness. No mass palpable. PSYCHIATRY: Unable to assess patient more lethargic NEUROLOGICAL: Does some movement in the upper extremity. Does answer some questions INVESTIGATIONS, reviewed in the clinical context: White count 14.2 hemoglobin 8.6 potassium 4.0 creatinine 0.83 Previous testing: White count 11 hemoglobin 13.7 platelets 383 Sodium 116, bicarb 8, bun 33, creatinine 2.18 glucose 1875 troponin I 0.88 1 COVID-19 PCR-not detected computed tomography scan of the brain without contrast-no acute degenerative changes Ultrasound kidney-limited exam 2-D echocardiogram-EF 30-35%, anteroseptal apical hypokinesia AST 3453, ALT 1264, computed tomography scan of the abdomen and pelvis without contrast-dilated multiple loops of small bowel some free fluid in the paracolic gutter bilateral lower lobe pulmonary infiltrates, fusiform 4.4 cm lower abdominal aortic aneurysm with aortoiliac endograft multiple diverticula of the sigmoid colon. Mild wall thickening of the ascending colon. Blood cultures from October 20-negative Abdominal x-ray-October 25--contrast has passed through to thecolon EEG suggestive of encephalopathy, computed tomography scan of the brain-on October 28-chronic changes Sputum culture from November 06, stool culture from November 04, urine culture from November 03 and sputum culture from October 27 all growing Layne albicans Computed tomography scan abdomen and pelvis-November 08-bilateral lower lobe airspace consolidation slightly increased, multiple peripheral hepatic irregular hypodensity areas, splenic hypodensity unchanged, distended small bowel Assessment: -acute nonketotic hyperosmolar diabetes with severe hyperglycemia, POA -Acute small bowel obstruction, and distal jejunal clinically improved, NG tube suction discontinued.- tube feeding started -Acute hypoxic respiratory failure requiring mechanical ventilator extubated on November 01 -Acute metabolic encephalopathy-improving though slowly -Alzheimer's dementia -Pseudohyponatremia from severe hyperglycemia -4.4 cm distal abdominal aortic aneurysm with the endoluminal stent graft -Peripheral arterial disease -Acute shock liver secondary to hypotensive-corrected -Chronic congestive heart failure from systolic dysfunction EF 30-35% -Sepsis with septic shock, possible community acquired pneumonia -Non-ST elevation AL likely type II from demand ischemia, POA -Acute kidney injury likely ATN and prerenal- corrected -Possibly chronic kidney disease -essential hypertension -Pneumonia suspect gram-negative organism -New onset atrial fibrillation. -Anoxic brain slow improvement -Stage II pressure ulcer on the coccyx -Severe diarrhea-negative for C. diff. possibly from 2 feeding improved -Bilateral critical care myopathy -Patient's febrile again. Started on antifungal today November 08. Dr. Garcia. Plan: -Patient was given by Dr. Kelsey from neurology. Impression still the patient appears to be encephalopathic. I increased the same. Does no focal findings. Patient has been on IV antifungal. Fevers have started to come down. Also in IV cefepime. Gentle hydration. Prognosis is guarded. Did try to reach the patient's son on the phone today or worsening. We'll try again in the short time.
[2019-11-10] MEDS: INSULIN REGULAR 100 UNIT in SODIUM CHLORIDE 0.9% 100 ML IV SCH (19:09)
[2019-11-10 20:15] LABS: Glucose,Whole Blood 226 mg/dL (75-99)
[2019-11-10 21:08] LABS: Glucose,Whole Blood 212 mg/dL (75-99)
[2019-11-10 22:13] LABS: Glucose,Whole Blood 188 mg/dL (75-99)
--- NOTE | 2019-11-10 22:38 | PN ---
PROGRESS NOTE DATE OF SERVICE: 11/10/2019 REASON FOR FOLLOWUP: Fever, likely pneumonia. INTERVAL HISTORY: The patient's overall fever pattern has improved. The T-max so far of 100.9 today. The patient has been breathing comfortably. Still lethargic, unable to provide any history. No vomiting or any worsening diarrhea reported. Currently not on any pressor support. PHYSICAL EXAMINATION: Blood pressure 117/55, pulse of 96, temperature 98.6. He is 91% on 2 L nasal cannula. General description is an elderly male lying in bed in no distress. RESPIRATORY SYSTEM: Unlabored breathing. Clear to auscultation anteriorly. HEART: S1, S2. Regular rate and rhythm. ABDOMEN: Soft. Mildly distended and tender. EXTREMITIES: No edema of the feet. LABS: Hemoglobin 8.6, white count 14.2, BUN of 13, creatinine 0.83. Blood and urine culture so far negative. DIAGNOSTIC IMPRESSION AND PLAN: Patient with a fever and elevated white count with concern for possible nosocomial pneumonia. Cefepime was added yesterday on Flagyl; to continue. However, if persistent fever, we may have to narrow antibiotic further and follow up on the cultures. Continue with supportive care. MMODL / IJN: [id number] /
[2019-11-10 23:42] LABS: Glucose,Whole Blood 123 mg/dL (75-99)
[2019-11-11] MEDS: HEPARIN SODIUM,PORCINE 5,000 UNIT/ML 1 ML VIAL SQ SCH ×3 (00:44→17:11)
[2019-11-11] MEDS: LACTATED RINGERS 1,000 ML IV SCH ×2 (00:44→21:15)
[2019-11-11 00:52] LABS: Glucose,Whole Blood 106 mg/dL (75-99)
[2019-11-11 02:07] LABS: Glucose,Whole Blood 205 mg/dL (75-99)
[2019-11-11 03:13] LABS: Glucose,Whole Blood 222 mg/dL (75-99)
[2019-11-11 04:03] LABS: Glucose,Whole Blood 207 mg/dL (75-99)
[2019-11-11] MEDS: ACETAMINOPHEN TAB 325 MG TAB PO PRN ×3 (04:22→21:15)
[2019-11-11] MEDS: CEFEPIME 2 GM in SODIUM CHLORIDE 0.9% 100 ML IVPB SCH ×2 (04:22→17:11)
[2019-11-11 04:55] LABS: HCT 25.6 % (39.0-53.0); HGB 7.4 gm/dL (13.0-17.5); Hypochromasia Marked; MCH 30.2 pg (25.0-35.0); MCHC 28.7 g/dL (31.0-37.0); MCV 104.9 fL (80.0-100.0); Macrocytosis Moderate; Mean Platelet Volume 7.7; Platelet Count 700 k/uL (150-450); Poikilocytosis Slight; RBC 2.44 m/uL (4.30-5.90); RDW 14.8 % (11.5-15.5); WBC 15.1 k/uL (3.8-10.6)
[2019-11-11 04:58] LABS: Glucose,Whole Blood 200 mg/dL (75-99)
[2019-11-11 05:08] LABS: African American GFR (CKD) >90 (>60 ml/min/1.73 sqM); Anion Gap 7 mmol/L; Blood Urea Nitrogen 15 mg/dL (9-20); Calcium 7.7 mg/dL (8.4-10.2); Carbon Dioxide 23 mmol/L (22-30); Chloride 108 mmol/L (98-107); Glucose 192 mg/dL (74-99); Non-African American GFR(CKD) 83 (>60 ml/min/1.73 sqM); Potassium 3.7 mmol/L (3.5-5.1); Sodium 138 mmol/L (137-145)
[2019-11-11 06:00] LABS: Glucose,Whole Blood 193 mg/dL (75-99)
[2019-11-11] MEDS ORDERED: POTASSIUM BICARBONATE/CIT AC 20 MEQ TABLET.EFF NG-TUBE SCH (07:00)
[2019-11-11 07:08] LABS: Glucose,Whole Blood 173 mg/dL (75-99)
[2019-11-11 08:19] LABS: Glucose,Whole Blood 160 mg/dL (75-99)
--- NOTE | 2019-11-11 08:32 | XR ---
EXAMINATION TYPE: XR chest 1V portable DATE OF EXAM: 11/11/2019 COMPARISON: 11/10/2019 HISTORY: Shortness of breath TECHNIQUE: Single frontal view of the chest is obtained. FINDINGS: There is a patchy right basilar opacity that has slightly progressed in the interim. Plate like left lower lung linear atelectasis is redemonstrated. Enteric tube appears appropriately placed. Aortic abdominal graft is partially visualized. Stable right hemidiaphragm elevation. IMPRESSION: Slight increased density in the right basilar opacity and stable left basilar atelectasi s. Chronic right hemidiaphragm elevation.
[2019-11-11] MEDS: NYSTATIN 100,000 UNIT/ML SUSP 500,000 UNIT/5 ML CUP PO SCH ×4 (08:41→21:15)
[2019-11-11] MEDS: ANIDULAFUNGIN 100 MG in SODIUM CHLORIDE 0.9% 100 ML IVPB SCH (08:41)
[2019-11-11] MEDS: AMIODARONE 200 MG TAB PO SCH ×2 (08:41→21:15)
[2019-11-11] MEDS: METOPROLOL TARTRATE 25 MG TAB PO SCH ×2 (08:42→21:15)
[2019-11-11] MEDS: LISINOPRIL 2.5 MG TAB PO SCH (08:42)
[2019-11-11] MEDS: FAMOTIDINE 20 MG TAB PO SCH ×2 (08:42→21:15)
[2019-11-11] MEDS: ASPIRIN 81 MG PO SCH (08:42)
--- NOTE | 2019-11-11 09:00 | P.PN ---
Subjective Progress Note Date: 11/11/19 Principal diagnosis: cardiomyopathy This is an 79-year-old gentleman with extensive past medical history who was admitted to the hospital initially with intra-abdominal sepsis and small bowel obstruction and developed acute hypoxic respiratory failure. The patient was seen today, October 102019. He remains hemodynamically stable. He remains in normal sinus mechanism on the current medical regimen including amiodarone by mouth as well as metoprolol by mouth. He is not on any oral anticoagulation. From a cardiac vascular standpoint of view we'll continue the current medical regimen. Objective - Vital Signs Vital signs: Vital Signs Temp 100.6 F H 11/11/19 08:00 Pulse 95 11/11/19 08:00 Resp 37 H 11/11/19 08:00 BP 114/55 11/11/19 08:00 Pulse Ox 94 L 11/11/19 08:00 Intake & Output 11/10/19 11/11/19 11/11/19 18:59 06:59 18:59 Intake Total 9612.176 3157.826 308.955 Output Total 690 955 970 Balance 698.063 504.826 -661.045 Weight 82 kg Intake: IV 600 675 100 Cefepime 2 gm In Sodium 100 Chloride 0.9% 100 ml @ 200 mls/hr IVPB Q12H INDU Rx#:[id number] Lactated Ringers 1,000 ml 600 575 100 @ 50 mls/hr IV .Q20H INDU Rx#:[id number] Intake, IV Titration 128.063 119.826 13.955 Amount Cefepime 2 gm In Sodium 100 Chloride 0.9% 100 ml @ 200 mls/hr IVPB Q12H INDU Rx#:[id number] Insulin Regular 100 unit 28.063 59.826 13.955 In Sodium Chloride 0.9% 100 ml @ Per Protocol IV .Q0M INDU Rx#:[id number] Sodium Chloride 0.9% 500 60 ml 500 ml @ 10 mls/hr IV .Q24H INDU Rx#:[id number] Tube Feeding 600 605 165 Other 60 60 30 Output: Urine 690 955 170 Stool 800 Other: Voiding Method Indwelling Catheter Indwelling Catheter ABP, PAP, CO, CI - Last Documented Arterial Blood Pressure 145/58 - Labs CBC & Chem 7: 11/11/19 03:59 11/11/19 03:59 Labs: Abnormal Lab Results - Last 24 Hours (Table) 11/10/19 11/10/19 11/10/19 Range/Units 09:00 09:52 11:08 WBC (3.8-10.6) k/uL RBC (4.30-5.90) m/uL Hgb (13.0-17.5) gm/dL Hct (39.0-53.0) % MCV (80.0-100.0) fL MCHC (31.0-37.0) g/dL Plt Count (150-450) k/uL Chloride (98-107) mmol/L Glucose (74-99) mg/dL POC Glucose (mg/dL) 191 H 214 H 158 H (75-99) mg/dL Calcium (8.4-10.2) mg/dL 11/10/19 11/10/19 11/10/19 Range/Units 13:03 14:18 15:04 WBC (3.8-10.6) k/uL RBC (4.30-5.90) m/uL Hgb (13.0-17.5) gm/dL Hct (39.0-53.0) % MCV (80.0-100.0) fL MCHC (31.0-37.0) g/dL Plt Count (150-450) k/uL Chloride (98-107) mmol/L Glucose (74-99) mg/dL POC Glucose (mg/dL) 121 H 135 H 194 H (75-99) mg/dL Calcium (8.4-10.2) mg/dL 11/10/19 11/10/19 11/10/19 Range/Units 18:07 18:51 20:13 WBC (3.8-10.6) k/uL RBC (4.30-5.90) m/uL Hgb (13.0-17.5) gm/dL Hct (39.0-53.0) % MCV (80.0-100.0) fL MCHC (31.0-37.0) g/dL Plt Count (150-450) k/uL Chloride (98-107) mmol/L Glucose (74-99) mg/dL POC Glucose (mg/dL) 237 H 266 H 226 H (75-99) mg/dL Calcium (8.4-10.2) mg/dL 11/10/19 11/10/19 11/10/19 Range/Units 21:06 22:12 23:41 WBC (3.8-10.6) k/uL RBC (4.30-5.90) m/uL Hgb (13.0-17.5) gm/dL Hct (39.0-53.0) % MCV (80.0-100.0) fL MCHC (31.0-37.0) g/dL Plt Count (150-450) k/uL Chloride (98-107) mmol/L Glucose (74-99) mg/dL POC Glucose (mg/dL) 212 H 188 H 123 H (75-99) mg/dL Calcium (8.4-10.2) mg/dL 11/11/19 11/11/19 11/11/19 Range/Units 00:51 02:05 03:11 WBC (3.8-10.6) k/uL RBC (4.30-5.90) m/uL Hgb (13.0-17.5) gm/dL Hct (39.0-53.0) % MCV (80.0-100.0) fL MCHC (31.0-37.0) g/dL Plt Count (150-450) k/uL Chloride (98-107) mmol/L Glucose (74-99) mg/dL POC Glucose (mg/dL) 106 H 205 H 222 H (75-99) mg/dL Calcium (8.4-10.2) mg/dL 11/11/19 11/11/19 11/11/19 Range/Units 03:59 03:59 04:01 WBC 15.1 H (3.8-10.6) k/uL RBC 2.44 L (4.30-5.90) m/uL Hgb 7.4 L (13.0-17.5) gm/dL Hct 25.6 L (39.0-53.0) % MCV 104.9 H (80.0-100.0) fL MCHC 28.7 L (31.0-37.0) g/dL Plt Count 700 H (150-450) k/uL Chloride 108 H (98-107) mmol/L Glucose 192 H (74-99) mg/dL POC Glucose (mg/dL) 207 H (75-99) mg/dL Calcium 7.7 L (8.4-10.2) mg/dL 11/11/19 11/11/19 11/11/19 Range/Units 04:57 05:59 07:07 WBC (3.8-10.6) k/uL RBC (4.30-5.90) m/uL Hgb (13.0-17.5) gm/dL Hct (39.0-53.0) % MCV (80.0-100.0) fL MCHC (31.0-37.0) g/dL Plt Count (150-450) k/uL Chloride (98-107) mmol/L Glucose (74-99) mg/dL POC Glucose (mg/dL) 200 H 193 H 173 H (75-99) mg/dL Calcium (8.4-10.2) mg/dL 11/11/19 Range/Units 07:59 WBC (3.8-10.6) k/uL RBC (4.30-5.90) m/uL Hgb (13.0-17.5) gm/dL Hct (39.0-53.0) % MCV (80.0-100.0) fL MCHC (31.0-37.0) g/dL Plt Count (150-450) k/uL Chloride (98-107) mmol/L Glucose (74-99) mg/dL POC Glucose (mg/dL) 160 H (75-99) mg/dL Calcium (8.4-10.2) mg/dL Microbiology - Last 24 Hours (Table) 11/04/19 20:24 Blood Culture - Final Blood No Growth after 144 hours 11/09/19 16:29 Blood Culture - Preliminary Blood No Growth after 24 hours 11/10/19 00:20 Urine Culture - Preliminary Urine,Voided 10/25/19 11:35 Blood Fungal Culture - Preliminary Blood 11/05/19 10:30 Stool Culture - Final Stool Layne albicans Assessment and Plan Assessment: assessment #1 acute hypoxic respiratory failure which has improved #2 paroxysmal atrial fibrillation #3 severe cardiomyopathy #4 peripheral arterial disease #5 multiple comorbid conditions Plan #1 continue the current medical regimen including the current dose of amiodarone #2 continue the current dose of metoprolol
[2019-11-11 09:02] LABS: Glucose,Whole Blood 169 mg/dL (75-99)
[2019-11-11 10:11] LABS: Glucose,Whole Blood 172 mg/dL (75-99)
[2019-11-11 11:01] LABS: Glucose,Whole Blood 185 mg/dL (75-99)
--- NOTE | 2019-11-11 11:18 | P.PN ---
<RadhaRomeroJodie A - Last Filed: 11/11/19 11:09> Subjective Progress Note Date: 11/11/19 CHIEF COMPLAINT: Sepsis HISTORY OF PRESENT ILLNESS: Patient examined in the intensive care. Tube feedings are infusing Patient with FMS with liquid stool. Patient does not appear to be having any abdominal discomfort during examination. Temperature 100.6. WBC 15.1. Hemoglobin 7.4 PHYSICAL EXAM: VITAL SIGNS: Reviewed GENERAL: Well-developed in no acute distress. HEENT: No sclera icterus. Extraocular movements grossly intact. Moist buccal mucosa. Head is atraumatic, normocephalic. No nasal drainage. NECK: Supple without lymphadenopathy. CHEST: Non-labored respirations and equal bilateral excursions. CARDIOVASCULAR: Regular rate with regular rhythm. Palpable 2+ radial pulses. ABDOMEN: Soft. Distended. Nontender. NG tube noted. MUSCULOSKELETAL: No clubbing or cyanosis. NEUROLOGIC: Awake and alert. SKIN: Well perfused. Good skin turgor. ASSESSMENT: 1. Abnormal computed tomography scan with small bowel distention, resolving PLAN: Continue NPO status as patient failed swallow evaluation. Speech following. If family wants to continue aggressive medical treatment, may require PEG tube placement if patient unable to tolerate PO intake in the future Continue tube feedings Dr. Quintero recommends US of the extremities to rule out DVT as cause of fevers and/or CT of the sinuses as this may be a cause of fevers secondary to sinusitis from prolonged NG tube. Will order. Await results. Nurse practitioner note has been reviewed by physician. Signing provider agrees with the documented findings, assessment, and plan of care. Objective - Vital Signs Vital signs: Vital Signs Temp 100.6 F H 11/11/19 08:00 Pulse 98 11/11/19 10:00 Resp 31 H 11/11/19 10:00 BP 122/62 11/11/19 10:00 Pulse Ox 93 L 11/11/19 10:00 Intake & Output 11/10/19 11/11/19 11/11/19 18:59 06:59 18:59 Intake Total 5478.189 9642.826 573.955 Output Total 727 856 7812 Balance 698.063 504.826 -536.045 Weight 82 kg Intake: IV 600 675 200 Cefepime 2 gm In Sodium 100 Chloride 0.9% 100 ml @ 200 mls/hr IVPB Q12H INDU Rx#:[id number] Lactated Ringers 1,000 ml 600 575 200 @ 50 mls/hr IV .Q20H INDU Rx#:[id number] Intake, IV Titration 128.063 119.826 13.955 Amount Cefepime 2 gm In Sodium 100 Chloride 0.9% 100 ml @ 200 mls/hr IVPB Q12H INDU Rx#:[id number] Insulin Regular 100 unit 28.063 59.826 13.955 In Sodium Chloride 0.9% 100 ml @ Per Protocol IV .Q0M INDU Rx#:[id number] Sodium Chloride 0.9% 500 60 ml 500 ml @ 10 mls/hr IV .Q24H INDU Rx#:[id number] Tube Feeding 600 605 330 Other 60 60 30 Output: Urine 690 955 310 Stool 800 Other: Voiding Method Indwelling Catheter Indwelling Catheter ABP, PAP, CO, CI - Last Documented Arterial Blood Pressure 145/58 - Labs CBC & Chem 7: 11/11/19 03:59 11/11/19 03:59 Labs: Abnormal Lab Results - Last 24 Hours (Table) 11/10/19 11/10/19 11/10/19 Range/Units 09:52 11:08 13:03 WBC (3.8-10.6) k/uL RBC (4.30-5.90) m/uL Hgb (13.0-17.5) gm/dL Hct (39.0-53.0) % MCV (80.0-100.0) fL MCHC (31.0-37.0) g/dL Plt Count (150-450) k/uL Chloride (98-107) mmol/L Glucose (74-99) mg/dL POC Glucose (mg/dL) 214 H 158 H 121 H (75-99) mg/dL Calcium (8.4-10.2) mg/dL 11/10/19 11/10/19 11/10/19 Range/Units 14:18 15:04 18:07 WBC (3.8-10.6) k/uL RBC (4.30-5.90) m/uL Hgb (13.0-17.5) gm/dL Hct (39.0-53.0) % MCV (80.0-100.0) fL MCHC (31.0-37.0) g/dL Plt Count (150-450) k/uL Chloride (98-107) mmol/L Glucose (74-99) mg/dL POC Glucose (mg/dL) 135 H 194 H 237 H (75-99) mg/dL Calcium (8.4-10.2) mg/dL 11/10/19 11/10/19 11/10/19 Range/Units 18:51 20:13 21:06 WBC (3.8-10.6) k/uL RBC (4.30-5.90) m/uL Hgb (13.0-17.5) gm/dL Hct (39.0-53.0) % MCV (80.0-100.0) fL MCHC (31.0-37.0) g/dL Plt Count (150-450) k/uL Chloride (98-107) mmol/L Glucose (74-99) mg/dL POC Glucose (mg/dL) 266 H 226 H 212 H (75-99) mg/dL Calcium (8.4-10.2) mg/dL 11/10/19 11/10/19 11/11/19 Range/Units 22:12 23:41 00:51 WBC (3.8-10.6) k/uL RBC (4.30-5.90) m/uL Hgb (13.0-17.5) gm/dL Hct (39.0-53.0) % MCV (80.0-100.0) fL MCHC (31.0-37.0) g/dL Plt Count (150-450) k/uL Chloride (98-107) mmol/L Glucose (74-99) mg/dL POC Glucose (mg/dL) 188 H 123 H 106 H (75-99) mg/dL Calcium (8.4-10.2) mg/dL 11/11/19 11/11/19 11/11/19 Range/Units 02:05 03:11 03:59 WBC 15.1 H (3.8-10.6) k/uL RBC 2.44 L (4.30-5.90) m/uL Hgb 7.4 L (13.0-17.5) gm/dL Hct 25.6 L (39.0-53.0) % MCV 104.9 H (80.0-100.0) fL MCHC 28.7 L (31.0-37.0) g/dL Plt Count 700 H (150-450) k/uL Chloride (98-107) mmol/L Glucose (74-99) mg/dL POC Glucose (mg/dL) 205 H 222 H (75-99) mg/dL Calcium (8.4-10.2) mg/dL 11/11/19 11/11/19 11/11/19 Range/Units 03:59 04:01 04:57 WBC (3.8-10.6) k/uL RBC (4.30-5.90) m/uL Hgb (13.0-17.5) gm/dL Hct (39.0-53.0) % MCV (80.0-100.0) fL MCHC (31.0-37.0) g/dL Plt Count (150-450) k/uL Chloride 108 H (98-107) mmol/L Glucose 192 H (74-99) mg/dL POC Glucose (mg/dL) 207 H 200 H (75-99) mg/dL Calcium 7.7 L (8.4-10.2) mg/dL 11/11/19 11/11/19 11/11/19 Range/Units 05:59 07:07 07:59 WBC (3.8-10.6) k/uL RBC (4.30-5.90) m/uL Hgb (13.0-17.5) gm/dL Hct (39.0-53.0) % MCV (80.0-100.0) fL MCHC (31.0-37.0) g/dL Plt Count (150-450) k/uL Chloride (98-107) mmol/L Glucose (74-99) mg/dL POC Glucose (mg/dL) 193 H 173 H 160 H (75-99) mg/dL Calcium (8.4-10.2) mg/dL 11/11/19 11/11/19 11/11/19 Range/Units 09:00 10:09 11:00 WBC (3.8-10.6) k/uL RBC (4.30-5.90) m/uL Hgb (13.0-17.5) gm/dL Hct (39.0-53.0) % MCV (80.0-100.0) fL MCHC (31.0-37.0) g/dL Plt Count (150-450) k/uL Chloride (98-107) mmol/L Glucose (74-99) mg/dL POC Glucose (mg/dL) 169 H 172 H 185 H (75-99) mg/dL Calcium (8.4-10.2) mg/dL Microbiology - Last 24 Hours (Table) 11/04/19 20:24 Blood Culture - Final Blood No Growth after 144 hours 11/09/19 16:29 Blood Culture - Preliminary Blood No Growth after 24 hours 11/10/19 00:20 Urine Culture - Preliminary Urine,Voided 10/25/19 11:35 Blood Fungal Culture - Preliminary Blood 11/05/19 10:30 Stool Culture - Final Stool Layne albicans <Bess Quintero N - Last Filed: 11/11/19 20:35> Subjective Patient seen and evaluated with nurse practitioner. Agree with above. Patient has recurrent sepsis. He does have mild abdominal distention and is stooling and tolerating tube feeds. On exam however no peritonitis. Patient has persistent fevers with additional sources of infection being evaluated. CT of the abdomen and pelvis reviewed without findings perforation, colitis, or intestinal infarction. I personally spoke to the patient's son over the phone upon request at 1526. Patient does have ongoing sepsis. Additionally, alternatives to gastrostomy feeding tube was described. As the patient is a poor surgical candidate, Dobbhoff feeding tube is ideal and may be placed per radiology. Objective - Vital Signs Vital signs: Vital Signs Temp 99.9 F H 11/11/19 16:00 Pulse 102 H 11/11/19 19:00 Resp 34 H 11/11/19 19:00 BP 132/59 11/11/19 19:00 Pulse Ox 93 L 11/11/19 19:00 Intake & Output 11/11/19 11/11/19 11/12/19 06:59 18:59 06:59 Intake Total 1406.550 9930.176 160 Output Total 955 3600 60 Balance 504.826 -1771.824 100 Weight 82 kg 82 kg Intake: IV 675 850 50 Cefepime 2 gm In Sodium 100 Chloride 0.9% 100 ml @ 200 mls/hr IVPB Q12H INDU Rx#:[id number] Lactated Ringers 1,000 ml 575 600 50 @ 50 mls/hr IV .Q20H INDU Rx#:[id number] Vancomycin 1,500 mg In 250 Sodium Chloride 0.9% 250 ml @ 125 mls/hr IVPB Q12H INDU Rx#:[id number] Intake, IV Titration 119.826 63.176 Amount Insulin Regular 100 unit 59.826 63.176 In Sodium Chloride 0.9% 100 ml @ Per Protocol IV .Q0M INDU Rx#:[id number] Sodium Chloride 0.9% 500 60 ml 500 ml @ 10 mls/hr IV .Q24H INDU Rx#:[id number] Tube Feeding 605 825 110 Other 60 90 Output: Urine 955 900 60 Stool 2700 Other: Voiding Method Indwelling Catheter Indwelling Catheter ABP, PAP, CO, CI - Last Documented Arterial Blood Pressure 145/58 - Labs CBC & Chem 7: 11/11/19 03:59 11/11/19 03:59 Labs: Abnormal Lab Results - Last 24 Hours (Table) 11/09/19 11/10/19 11/10/19 Range/Units 16:29 21:06 22:12 WBC (3.8-10.6) k/uL RBC (4.30-5.90) m/uL Hgb (13.0-17.5) gm/dL Hct (39.0-53.0) % MCV (80.0-100.0) fL MCHC (31.0-37.0) g/dL Plt Count (150-450) k/uL Chloride (98-107) mmol/L Glucose (74-99) mg/dL POC Glucose (mg/dL) 212 H 188 H (75-99) mg/dL Calcium (8.4-10.2) mg/dL HSV I IgG Interpret POSITIVE H (NEGATIVE) 11/10/19 11/11/19 11/11/19 Range/Units 23:41 00:51 02:05 WBC (3.8-10.6) k/uL RBC (4.30-5.90) m/uL Hgb (13.0-17.5) gm/dL Hct (39.0-53.0) % MCV (80.0-100.0) fL MCHC (31.0-37.0) g/dL Plt Count (150-450) k/uL Chloride (98-107) mmol/L Glucose (74-99) mg/dL POC Glucose (mg/dL) 123 H 106 H 205 H (75-99) mg/dL Calcium (8.4-10.2) mg/dL HSV I IgG Interpret (NEGATIVE) 11/11/19 11/11/19 11/11/19 Range/Units 03:11 03:59 03:59 WBC 15.1 H (3.8-10.6) k/uL RBC 2.44 L (4.30-5.90) m/uL Hgb 7.4 L (13.0-17.5) gm/dL Hct 25.6 L (39.0-53.0) % MCV 104.9 H (80.0-100.0) fL MCHC 28.7 L (31.0-37.0) g/dL Plt Count 700 H (150-450) k/uL Chloride 108 H (98-107) mmol/L Glucose 192 H (74-99) mg/dL POC Glucose (mg/dL) 222 H (75-99) mg/dL Calcium 7.7 L (8.4-10.2) mg/dL HSV I IgG Interpret (NEGATIVE) 11/11/19 11/11/19 11/11/19 Range/Units 04:01 04:57 05:59 WBC (3.8-10.6) k/uL RBC (4.30-5.90) m/uL Hgb (13.0-17.5) gm/dL Hct (39.0-53.0) % MCV (80.0-100.0) fL MCHC (31.0-37.0) g/dL Plt Count (150-450) k/uL Chloride (98-107) mmol/L Glucose (74-99) mg/dL POC Glucose (mg/dL) 207 H 200 H 193 H (75-99) mg/dL Calcium (8.4-10.2) mg/dL HSV I IgG Interpret (NEGATIVE) 11/11/19 11/11/19 11/11/19 Range/Units 07:07 07:59 09:00 WBC (3.8-10.6) k/uL RBC (4.30-5.90) m/uL Hgb (13.0-17.5) gm/dL Hct (39.0-53.0) % MCV (80.0-100.0) fL MCHC (31.0-37.0) g/dL Plt Count (150-450) k/uL Chloride (98-107) mmol/L Glucose (74-99) mg/dL POC Glucose (mg/dL) 173 H 160 H 169 H (75-99) mg/dL Calcium (8.4-10.2) mg/dL HSV I IgG Interpret (NEGATIVE) 11/11/19 11/11/19 11/11/19 Range/Units 10:09 11:00 13:20 WBC (3.8-10.6) k/uL RBC (4.30-5.90) m/uL Hgb (13.0-17.5) gm/dL Hct (39.0-53.0) % MCV (80.0-100.0) fL MCHC (31.0-37.0) g/dL Plt Count (150-450) k/uL Chloride (98-107) mmol/L Glucose (74-99) mg/dL POC Glucose (mg/dL) 172 H 185 H 173 H (75-99) mg/dL Calcium (8.4-10.2) mg/dL HSV I IgG Interpret (NEGATIVE) 11/11/19 11/11/19 11/11/19 Range/Units 14:35 15:17 16:14 WBC (3.8-10.6) k/uL RBC (4.30-5.90) m/uL Hgb (13.0-17.5) gm/dL Hct (39.0-53.0) % MCV (80.0-100.0) fL MCHC (31.0-37.0) g/dL Plt Count (150-450) k/uL Chloride (98-107) mmol/L Glucose (74-99) mg/dL POC Glucose (mg/dL) 162 H 163 H 133 H (75-99) mg/dL Calcium (8.4-10.2) mg/dL HSV I IgG Interpret (NEGATIVE) 11/11/19 11/11/19 Range/Units 17:45 19:55 WBC (3.8-10.6) k/uL RBC (4.30-5.90) m/uL Hgb (13.0-17.5) gm/dL Hct (39.0-53.0) % MCV (80.0-100.0) fL MCHC (31.0-37.0) g/dL Plt Count (150-450) k/uL Chloride (98-107) mmol/L Glucose (74-99) mg/dL POC Glucose (mg/dL) 128 H 117 H (75-99) mg/dL Calcium (8.4-10.2) mg/dL HSV I IgG Interpret (NEGATIVE) Microbiology - Last 24 Hours (Table) 11/09/19 16:29 Blood Culture - Preliminary Blood No Growth after 48 hours 11/10/19 00:20 Urine Culture - Preliminary Urine,Voided Yeast species 11/04/19 20:24 Blood Culture - Final Blood No Growth after 144 hours Assessment and Plan (1) Hyponatremia Current Visit: Yes Status: Acute Code(s): E87.1 - HYPO-OSMOLALITY AND HYPONATREMIA SNOMED Code(s): 77751277 (2) Hyperkalemia Current Visit: Yes Status: Acute Code(s): E87.5 - HYPERKALEMIA SNOMED C ode(s): 53010677 (3) Sigmoid diverticulitis Current Visit: Yes Status: Acute Code(s): K57.32 - DVTRCLI OF LG INT W/O PERFORATION OR ABSCESS W/O BLEEDING SNOMED Code(s): 508538318 (4) Dynamic ileus Current Visit: Yes Status: Acute Code(s): K56.7 - ILEUS, UNSPECIFIED SNOMED Code(s): 33160345 (5) Hyperosmolar syndrome Current Visit: Yes Status: Acute Code(s): E87.0 - HYPEROSMOLALITY AND HYPERNATREMIA SNOMED Code(s): 48540276 (6) Hyperosmolarity due to secondary diabetes mellitus Current Visit: Yes Status: Acute Code(s): E13.00 - OTH DIAB W HYPROSM W/O NONKET HYPRGLY-HYPROS COMA ([facility]) SNOMED Code(s): 43601187 (7) Altered mental state Current Visit: No Status: Acute Code(s): R41.82 - ALTERED MENTAL STATUS, UNSPECIFIED SNOMED Code(s): 707300161 (8) Dementia Current Visit: No Status: Acute Code(s): F03.90 - UNSPECIFIED DEMENTIA WITHOUT BEHAVIORAL DISTURBANCE SNOMED Code(s): 63927954 (9) Renal insufficiency syndrome Current Visit: No Status: Acute Code(s): N28.9 - DISORDER OF KIDNEY AND URETER, UNSPECIFIED SNOMED Code(s): 095932262 (10) Shock liver Current Visit: Yes Status: Acute Code(s): K72.00 - ACUTE AND SUBACUTE HEPATIC FAILURE WITHOUT COMA SNOMED Code(s): 089736912 (11) Sepsis Current Visit: Yes Status: Acute Code(s): A41.9 - SEPSIS, UNSPECIFIED ORGANISM SNOMED Code(s): 54210445
--- NOTE | 2019-11-11 13:14 | P.PN ---
Subjective Progress Note Date: 11/11/19 80-year-old male patient known history of dementia, diabetes hypertension osteoarthritis in addition to abdominal aortic aneurysm, presented to the ED with altered mentation and severe dehydration. The patient's was noted to have elevated blood sugars at home which prompted this hospital visit. He was unable to provide any history at time of admission. He was confused and disoriented and his condition was progressively getting worse over this past few weeks. He apparently had generalized weakness, falls, and he was not seeking any medical attention. He has Alzheimer's dementia. His has Alzheimer's dementia also. Apparently his oral intake has been minimal and the patient was drinking only 4 L of soda on a daily basis. He has been noncompliant his diabetic medications also. A blood sugar of more than 1800. CAT scan of the brain shows no evidence of any acute hemorrhage. There is some degenerative changes and nonspecific white matter changes consistent with remote ischemia. This 79-year-old male patient with a prolonged ICU stay due a multitude of complications that it initially started off with severe dehydration and hyperglycemia and hyperosmolar nonketotic state with subsequent development of an abdominal sepsis secondary to bowel obstruction/ileus, acute hypoxic respiratory failure, acute kidney injury, above and beyond all of his comorbidities that were mentioned in the medical record. Note that during the course of the treatment, the patient required intubation mechanical ventilation and ultimately his condition improved and the patient was weaned off the mechanical ventilator and was extubated. The patient remains in intensive care unit. He is on 2 L of oxygen by nasal cannula. He is receiving lactated Ringer at the rate of 50 mL an hour. He is receiving enteral feeding for nutritional support in the form of Jevity 1.5 with a goal being at 55 mL an hour. He continues to have episodes of temperature and it's catheter tip has been cultured after the triple-lumen catheter was removed and showed no growth. Repeat blood cultures also showed no growth. He does have Layne albicans in his stool and urine and sputum along with evidence of oropharyngeal candidiasis and the patient was started on Eraxis as an antifungal agent. He is also on IV cefepime as a broad-spectrum antibiotic coverage. Part of his fever workup, the patient underwent a CAT scan of the abdomen and pelvis and it showed bilateral pleural effusions and bilateral lower lobe airspace consolidation and atelectasis. There was no evidence of any pericardial effusion. There were multiple hypodense irregular areas in the periphery of the liver measuring up to 5 cm in size. This could be potentially multiple infarcts. There is a similar 5 x 3 hypodensity in the posterior spleen. The bile duct was within normal limits. No evidence of any pancreatic mass. Multiple small calcified gallstones. There was multiple fluid filled distended small loops of small elvin wel. The oral contrast extended into the ileum. Small amount of contrast extended to the cecum at the level of the ileocecal valve. No transition point was seen. There was some mild wall thickening of the sigmoid colon. 4.3 cm aneurysm of the lower abdominal aorta and aortoiliac stents were also noted again. There is abdominal ascites. No evidence of any free air. Lumbar spine was intact and there is no evidence of any compression fractures. The chest x- ray was done showed stable findings along with some lower lung volumes and pulmonary vascular congestion. The patient's stool for C. diff that was collected on 11/05/2019 was also negative. The patient has normal liver function tests. Alkaline phosphatase is 171. The white cell count is not elevated. NG tube is in place and the patient is being trialed on alternative formula as the patient's been having ongoing diarrhea. Testing of the C. diff on 2 separate occasions were negative and the patient's stool output had improv ed following his tube feeds being held. He is currently receiving enteral feeding in the form of Jevity at the rate of 45 mL an hour with a goal of 55. His T-max was 100.4. He is on insulin drip at 2 units an hour. He is on lactated Ringer at 50 mL's an hour. He did normal sinus rhythm. Mental status is impaired and the patient is awake and alert 1. The patient continues to be quite weak and debilitated. The patient's abdomen is slightly distended and he has some minimal direct tenderness. CAT scan of the abdomen was again noted. On today's evaluation of 11/11/2019, I'm seeing the patient for a follow-up. The patient is confused. He is talking and sometimes he makes appropriate comments. Yet for the most part he is quite lethargic and he sleeps. His abdomen remains tender. Upon palpating his abdomen, he does direct tenderness. No rebound tenderness. No guarding. Abdomen is slightly distended. The patient has an NG tube in place. He is receiving enteral feeding for nutritional support. He is on Jevity at the rate of 55 mL an hour. He failed his swallow evaluation. He has produced approximately a 50 mL of diarrhea over the past 24 hours. He has a low-grade fever. His white cell count is slightly elevated and I am obviously again concerned about intra-abdominal pathology contributing to this diarrhea, abdominal distention and pain and leukocytosis. He is on lactated Ringer at the rate of 50 mL an hour. He is receiving insulin drip at 4.5 units an hour for blood sugar control. Renal function is stable. His 40s about 2 by nasal cannula with a pulse ox of 95%. He remains on IV cefepime per IDs recommendations. No other significant events otherwise for now. Objective - Vital Signs Vital signs: Vital Signs Temp 100.6 F H 11/11/19 08:00 Pulse 98 11/11/19 10:00 Resp 31 H 11/11/19 10:00 BP 122/62 11/11/19 10:00 Pulse Ox 93 L 11/11/19 10:00 Intake & Output 11/10/19 11/11/19 11/11/19 18:59 06:59 18:59 Intake Total 4839.185 0666.826 573.955 Output Total 497 528 0722 Balance 698.063 504.826 -536.045 Weight 82 kg 82 kg Intake: IV 600 675 200 Cefepime 2 gm In Sodium 100 Chloride 0.9% 100 ml @ 200 mls/hr IVPB Q12H INDU Rx#:[id number] Lactated Ringers 1,000 ml 600 575 200 @ 50 mls/hr IV .Q20H INDU Rx#:[id number] Intake, IV Titration 128.063 119.826 13.955 Amount Cefepime 2 gm In Sodium 100 Chloride 0.9% 100 ml @ 200 mls/hr IVPB Q12H INDU Rx#:[id number] Insulin Regular 100 unit 28.063 59.826 13.955 In Sodium Chloride 0.9% 100 ml @ Per Protocol IV .Q0M INDU Rx#:[id number] Sodium Chloride 0.9% 500 60 ml 500 ml @ 10 mls/hr IV .Q24H INDU Rx#:[id number] Tube Feeding 600 605 330 Other 60 60 30 Output: Urine 690 955 310 Stool 800 Other: Voiding Method Indwelling Catheter Indwelling Catheter ABP, PAP, CO, CI - Last Documented Arterial Blood Pressure 145/58 - Exam Gen. appearance the patient is Calm and comfortable and he is not in acute respiratory distress, the patient has an NG tube in place and is receiving enteral feeding for nutritional support Head exam was generally normal. There was no scleral icterus or corneal arcus. Mucous membranes were dry, the patient has an NG tube in place Neck was supple and without jugular venous distension, thyromegaly, or carotid bruits. Carotids were easily palpable bilaterally. There was no adenopathy. The patient has a left subclavian triple-lumen catheter in place Lungs were clear to auscultation and percussion, and with normal diaphragmatic excursion. No wheezes or rales were noted. Cardiac exam revealed the PMI to be normally situated and sized. The rhythm was regular and no extrasystoles were noted during several minutes of auscultation. The first and second heart sounds were normal and physiologic splitting of the second heart sound was noted. There were no murmurs, rubs, clicks, or gallops. Abdominal exam revealed normal bowel sounds. The patient has hypoactive bowel sounds. The abdomen is slightly distended. There is some mild direct tenderness. Bowel sounds are hypoactive at the present. No organomegaly. No rebound tenderness. No guarding. Extremities reveal chronic ulceration lower extremities bilaterally with diminished pulses. No cyanosis or clubbing. There is no open wounds or cellulitis in the lower extremities. Neurologic the patient is oriented only to person. Global weakness. No focal neurological deficits - Labs CBC & Chem 7: 11/11/19 03:59 11/11/19 03:59 Labs: Abnormal Lab Results - Last 24 Hours (Table) 11/10/19 11/10/19 11/10/19 Range/Units 14:18 15:04 18:07 WBC (3.8-10.6) k/uL RBC (4.30-5.90) m/uL Hgb (13.0-17.5) gm/dL Hct (39.0-53.0) % MCV (80.0-100.0) fL MCHC (31.0-37.0) g/dL Plt Count (150-450) k/uL Chloride (98-107) mmol/L Glucose (74-99) mg/dL POC Glucose (mg/dL) 135 H 194 H 237 H (75-99) mg/dL Calcium (8.4-10.2) mg/dL 11/10/19 11/10/19 11/10/19 Range/Units 18:51 20:13 21:06 WBC (3.8-10.6) k/uL RBC (4.30-5.90) m/uL Hgb (13.0-17.5) gm/dL Hct (39.0-53.0) % MCV (80.0-100.0) fL MCHC (31.0-37.0) g/dL Plt Count (150-450) k/uL Chloride (98-107) mmol/L Glucose (74-99) mg/dL POC Glucose (mg/dL) 266 H 226 H 212 H (75-99) mg/dL Calcium (8.4-10.2) mg/dL 11/10/19 11/10/19 11/11/19 Range/Units 22:12 23:41 00:51 WBC (3.8-10.6) k/uL RBC (4.30-5.90) m/uL Hgb (13.0-17.5) gm/dL Hct (39.0-53.0) % MCV (80.0-100.0) fL MCHC (31.0-37.0) g/dL Plt Count (150-450) k/uL Chloride (98-107) mmol/L Glucose (74-99) mg/dL POC Glucose (mg/dL) 188 H 123 H 106 H (75-99) mg/dL Calcium (8.4-10.2) mg/dL 11/11/19 11/11/19 11/11/19 Range/Units 02:05 03:11 03:59 WBC 15.1 H (3.8-10.6) k/uL RBC 2.44 L (4.30-5.90) m/uL Hgb 7.4 L (13.0-17.5) gm/dL Hct 25.6 L (39.0-53.0) % MCV 104.9 H (80.0-100.0) fL MCHC 28.7 L (31.0-37.0) g/dL Plt Count 700 H (150-450) k/uL Chloride (98-107) mmol/L Glucose (74-99) mg/dL POC Glucose (mg/dL) 205 H 222 H (75-99) mg/dL Calcium (8.4-10.2) mg/dL 11/11/19 11/11/19 11/11/19 Range/Units 03:59 04:01 04:57 WBC (3.8-10.6) k/uL RBC (4.30-5.90) m/uL Hgb (13.0-17.5) gm/dL Hct (39.0-53.0) % MCV (80.0-100.0) fL MCHC (31.0-37.0) g/dL Plt Count (150-450) k/uL Chloride 108 H (98-107) mmol/L Glucose 192 H (74-99) mg/dL POC Glucose (mg/dL) 207 H 200 H (75-99) mg/dL Calcium 7.7 L (8.4-10.2) mg/dL 11/11/19 11/11/19 11/11/19 Range/Units 05:59 07:07 07:59 WBC (3.8-10.6) k/uL RBC (4.30-5.90) m/uL Hgb (13.0-17.5) gm/dL Hct (39.0-53.0) % MCV (80.0-100.0) fL MCHC (31.0-37.0) g/dL Plt Count (150-450) k/uL Chloride (98-107) mmol/L Glucose (74-99) mg/dL POC Glucose (mg/dL) 193 H 173 H 160 H (75-99) mg/dL Calcium (8.4-10.2) mg/dL 11/11/19 11/11/19 11/11/19 Range/Units 09:00 10:09 11:00 WBC (3.8-10.6) k/uL RBC (4.30-5.90) m/uL Hgb (13.0-17.5) gm/dL Hct (39.0-53.0) % MCV (80.0-100.0) fL MCHC (31.0-37.0) g/dL Plt Count (150-450) k/uL Chloride (98-107) mmol/L Glucose (74-99) mg/dL POC Glucose (mg/dL) 169 H 172 H 185 H (75-99) mg/dL Calcium (8.4-10.2) mg/dL Microbiology - Last 24 Hours (Table) 11/04/19 20:24 Blood Culture - Final Blood No Growth after 144 hours 11/09/19 16:29 Blood Culture - Preliminary Blood No Growth after 24 hours 11/10/19 00:20 Urine Culture - Preliminary Urine,Voided 10/25/19 11:35 Blood Fungal Culture - Preliminary Blood 11/05/19 10:30 Stool Culture - Final Stool Layne albicans Assessment and Plan Plan: 1 shock with profound hypotension recovered, likely secondary to an abdominal source of the sepsis. The patient is still having diarrhea. The patient had a follow-up CAT scan of the abdomen that showed distended small bowel without any transition point. Consider possibility of a ileus still in general surgeries on the case. NG tube is in place. The patient is receiving enteral feeding. The patient is having liquidy stool with a negative stool for C. diff. nevertheless, continued to see some abdominal distention and tenderness in addition to ongoing diarrhea. The CAT scan of the abdomen also showed dilatation of the small bowel and I think there is still some small bowel ileus or pathology contributing to his diarrhea and abdominal distention and pain. The fever and the mild leukocytosis probably for the same reason. Unfortunately, the patient is not a surgical candidate for exploration. We are still monitoring and treating him conservatively. 2 acute abdominal distention/pain with further workup indicating small bowel ileus/obstruction which ultimately recovered and the patient has an NG for enteral feeding and nutritional support, see above dictation regarding his abdominal condition. 3 acute hyperosmolar nonketotic diabetic syndrome with severe hyperglycemia and intravascular volume depletion/dehydration, recovered 4 acute kidney injury , Recovered 5 acut hypoxic respiratory failure, currently intubated on a mechanical ventilator, Recovered 6 altered mental status when underlying component of dementia, still confused and alert and oriented 1, the patient continues to have significant motor weakness which is global generalized weakness. 7 diabetes mellitus, maintained oral hypoglycemics with poor compliance, currently on insulin drip 8 alzheimer's dementia 9 pseudohyponatremia, related to severe hyperglycemia, recovered 10 History of hypertension 11 diarrhea likely secondary to enteral feeding and the C. diff evaluation on 2 separate occasions were negative 12 4.6 cm distal abdominal aortic aneurysm extending to the aortic bifurcation and involving the common iliac arteries with indwelling BILATERAL ILIAC ENDOLUMINAL STENT GRAFT, Unchanged in the most recent CAT scan of the abdomen and pelvis 13 peripheral vascular disease 14 troponin leak, consider Ischemia type 2, the troponin peaked at 2.25 15 acute shock liver secondary to hypotension , recovered 16 CHF with ischemic cardiomyopathy and ejection fraction of 30-35% in addition to old IL involving the anteroseptal and apical segments of the heart and left ventricle consistent with EKG findings. 17 severe lactic acidosis secondary to to above, recovered 18 oropharyngeal candidiasis in addition to Layne and the stool in the urine currently on Eraxis 19 episodic fever under investigation currently on a combination of iV cefepime and Eraxis 20 leukocytosis 21 low-grade fever Plan Contacted the son and informed him of the ongoing condition I there is ongoing small bowel pathology probably ileus or partial obstruction contributing to this ongoing abdominal pain and distention. As for the diarrhea, it could be related to some underlying ischemic bowel. The patient has low-grade fever. The patient has also leukocytosis. I do not think he would tolerate any form of surgical intervention or explanation at this point in time. She was essentially conservative. The surgeon is looking for alternative sources of fever including abnormalities and sinus on his legs for DVTs. The workup will be completed. Nevertheless, it is not unusual to find sinusitis in patient with chronic NG placement and the patient is already covered with antibiotics in that regard. We'll check a Doppler of the lower extremities also. Continue the supportive care. Consider changing his CODE STATUS once we have further meetings with the family. I asked the son to come in to the hospital. He will be checked in after he will be cleared for Covid 19. Further recommended a start to be done according to our discussion with the family and the patient's progression.
[2019-11-11] MEDS: SODIUM CHLORIDE 0.9% 500 ML 500 ML IV SCH (13:17)
[2019-11-11] MEDS: INSULIN REGULAR 100 UNIT in SODIUM CHLORIDE 0.9% 100 ML IV SCH (13:30)
[2019-11-11 13:40] LABS: Glucose,Whole Blood 173 mg/dL (75-99)
--- NOTE | 2019-11-11 14:11 | US ---
EXAMINATION TYPE: US venous doppler duplex UE DATE OF EXAM: 11/11/2019 COMPARISON: NONE CLINICAL HISTORY: r/o dvt. SIDE PERFORMED: Bilateral. Compression was performed for possible. Color flow and Doppler sonography is utilized. Patient unable to abduct limbs, worse on left. Right Arm: Appears negative for DVT, cephalic vein not seen Left Arm: Appears negative for DVT, cephalic vein not seen, unable to see ulnar veins. IMPRESSION: 1. Upper extremity bilateral, deep venous ultrasound negative for deep venous thrombosis.
--- NOTE | 2019-11-11 14:12 | US ---
EXAMINATION TYPE: US venous doppler duplex LE DATE OF EXAM: 11/11/2019 1:47 PM COMPARISON: NONE CLINICAL HISTORY: r/o dvt. SIDE PERFORMED: Bilateral TECHNIQUE: The lower extremity deep venous system is examined utilizing real time linear array sonog damian with graded compression, doppler sonography and color-flow sonography. VESSELS IMAGED: External Iliac Vein (EIV) Common Femoral Vein Deep Femoral Vein Greater Saphenous Vein * Femoral Vein Popliteal Vein Small Saphenous Vein * Proximal Calf Veins (* superficial vessels) Extensive swelling, patient unable to abduct legs, technically difficult. Right Leg: Negative for DVT Left Leg: Negative for DVT IMPRESSION: 1. Bilateral lower extremity ultrasound negative for deep venous thrombosis. 2. There are some limitations on the upper and lower extremity deep venous ultrasound due to patient mobility and ability to cooperate.
[2019-11-11] MEDS ORDERED: VANCOMYCIN IV PER PHARMACY 1 EACH MISC MISCELLANE PRN (14:43)
[2019-11-11 14:56] LABS: Glucose,Whole Blood 162 mg/dL (75-99)
[2019-11-11 15:19] LABS: Glucose,Whole Blood 163 mg/dL (75-99)
--- NOTE | 2019-11-11 15:47 | PN ---
PROGRESS NOTE DATE OF SERVICE: 11/11/2019 REASON FOR FOLLOWUP: Fever and pneumonia. INTERVAL HISTORY: The patient is still running a fever on a daily basis. The patient seems to be a little bit more awake and alert today. He is breathing comfortably. Denies having any chest pain. He did have some cough; not bringing up any sputum. No vomiting or any worsening diarrhea has been reported. PHYSICAL EXAMINATION: Blood pressure is 121/67, pulse of 90. Temperature is 101. He is 92% on 2 L nasal cannula. General description is an elderly male lying in bed in no distress. RESPIRATORY SYSTEM: Unlabored breathing with decreased breath sounds at the base. No wheeze. HEART: S1, S2. Regular rate and rhythm. ABDOMEN: Soft. Mildly distended. No guarding or rigidity. LAB: BUN of 15, creatinine 0.81, hemoglobin 7.4, white count 15.1. DIAGNOSTIC IMPRESSION AND PLAN: Patient with sepsis with a fever, elevated white count. Concern likely for pneumonia. At this point it is abdominal source with persistent fever despite good Gram-negative coverage. Will add vancomycin and monitor his clinical course closely. Continue with supportive care. MMODL / IJN: [id number] /
[2019-11-11] MEDS: VANCOMYCIN 1,500 MG in SODIUM CHLORIDE 0.9% 250 ML IVPB SCH (16:05)
[2019-11-11 16:17] LABS: Glucose,Whole Blood 133 mg/dL (75-99)
--- NOTE | 2019-11-11 16:41 | P.PN ---
Subjective Progress Note Date: 11/11/19 11/11/2019: Patient is slightly more comfortable, awake and alert. Slightly participating more with examination. Still appears tired. Less mumbling. 11/10/2019: Neurological follow-up requested by Dr. Fernandes. Patient was seen by Dr. Jose initially on 10/29/2019, and a follow-up on 11/04/2019. Reviewed her notes. Patient came to the hospital with acute nonketotic hyperosmolar diabetes with severe hyperglycemia. Patient subsequently developed respiratory failure requiring intubation. He also had septic shock, with kidney failure and ischemic hepatitis. He also has atrial fibrillation. Patient was extubated on 11/03/2019. Patient continues to be delirious. Please refer to examination below. Patient's blood test shows WBC 14.2 hemoglobin 8.6, with elevated MCV 105.3. Platelets are 745. Chem-7 included liver functions are normal. Liver functions normal. B12 463 on 11/08/2019, folate 13.2. TFTs normal. Objective - Vital Signs Vital signs: Vital Signs Temp 99.9 F H 11/11/19 16:00 Pulse 90 11/11/19 16:00 Resp 33 H 11/11/19 16:00 BP 116/56 11/11/19 16:00 Pulse Ox 94 L 11/11/19 16:00 Intake & Output 11/10/19 11/11/19 11/11/19 18:59 06:59 18:59 Intake Total 1648.156 4214.826 1233.176 Output Total 855 094 9080 Balance 698.063 504.826 -236.824 Weight 82 kg 82 kg Intake: IV 600 675 450 Cefepime 2 gm In Sodium 100 Chloride 0.9% 100 ml @ 200 mls/hr IVPB Q12H [facility] Rx#:[id number] Lactated Ringers 1,000 ml 600 575 450 @ 50 mls/hr IV .Q20H [facility] Rx#:[id number] Intake, IV Titration 128.063 119.826 63.176 Amount Cefepime 2 gm In Sodium 100 Chloride 0.9% 100 ml @ 200 mls/hr IVPB Q12H [facility] Rx#:[id number] Insulin Regular 100 unit 28.063 59.826 63.176 In Sodium Chloride 0.9% 100 ml @ Per Protocol IV .Q0M [facility] Rx#:[id number] Sodium Chloride 0.9% 500 60 ml 500 ml @ 10 mls/hr IV .Q24H [facility] Rx#:[id number] Tube Feeding 600 605 660 Other 60 60 60 Output: Urine 690 955 670 Stool 800 Other: Voiding Method Indwelling Catheter Indwelling Catheter Indwelling Catheter ABP, PAP, CO, CI - Last Documented Arterial Blood Pressure 145/58 - Exam Patient is quite alert and awake. Appears to moan at times. Knows his name, states is 81 years of age. Speech is clear with no aphasia. Patient has very impaired attention and concentration. Pupils are round and reacting. Visual flores could not be tested. He does acknowledge bilateral visual flores. Face appears symmetric. Patient's muscle strength revealed significant proximal muscle weakness. His [employer] is about 4+, biceps 2, deltoid 1-2, triceps 5- to 4+ bilaterally. Patient can wiggle his toes bilaterally. Reflexes are diminished. - Labs CBC & Chem 7: 11/11/19 03:59 11/11/19 03:59 Labs: Abnormal Lab Results - Last 24 Hours (Table) 11/10/19 11/10/19 11/10/19 Range/Units 18:07 18:51 20:13 WBC (3.8-10.6) k/uL RBC (4.30-5.90) m/uL Hgb (13.0-17.5) gm/dL Hct (39.0-53.0) % MCV (80.0-100.0) fL MCHC (31.0-37.0) g/dL Plt Count (150-450) k/uL Chloride (98-107) mmol/L Glucose (74-99) mg/dL POC Glucose (mg/dL) 237 H 266 H 226 H (75-99) mg/dL Calcium (8.4-10.2) mg/dL 11/10/19 11/10/19 11/10/19 Range/Units 21:06 22:12 23:41 WBC (3.8-10.6) k/uL RBC (4.30-5.90) m/uL Hgb (13.0-17.5) gm/dL Hct (39.0-53.0) % MCV (80.0-100.0) fL MCHC (31.0-37.0) g/dL Plt Count (150-450) k/uL Chloride (98-107) mmol/L Glucose (74-99) mg/dL POC Glucose (mg/dL) 212 H 188 H 123 H (75-99) mg/dL Calcium (8.4-10.2) mg/dL 11/11/19 11/11/19 11/11/19 Range/Units 00:51 02:05 03:11 WBC (3.8-10.6) k/uL RBC (4.30-5.90) m/uL Hgb (13.0-17.5) gm/dL Hct (39.0-53.0) % MCV (80.0-100.0) fL MCHC (31.0-37.0) g/dL Plt Count (150-450) k/uL Chloride (98-107) mmol/L Glucose (74-99) mg/dL POC Glucose (mg/dL) 106 H 205 H 222 H (75-99) mg/dL Calcium (8.4-10.2) mg/dL 11/11/19 11/11/19 11/11/19 Range/Units 03:59 03:59 04:01 WBC 15.1 H (3.8-10.6) k/uL RBC 2.44 L (4.30-5.90) m/uL Hgb 7.4 L (13.0-17.5) gm/dL Hct 25.6 L (39.0-53.0) % MCV 104.9 H (80.0-100.0) fL MCHC 28.7 L (31.0-37.0) g/dL Plt Count 700 H (150-450) k/uL Chloride 108 H (98-107) mmol/L Glucose 192 H (74-99) mg/dL POC Glucose (mg/dL) 207 H (75-99) mg/dL Calcium 7.7 L (8.4-10.2) mg/dL 11/11/19 11/11/19 11/11/19 Range/Units 04:57 05:59 07:07 WBC (3.8-10.6) k/uL RBC (4.30-5.90) m/uL Hgb (13.0-17.5) gm/dL Hct (39.0-53.0) % MCV (80.0-100.0) fL MCHC (31.0-37.0) g/dL Plt Count (150-450) k/uL Chloride (98-107) mmol/L Glucose (74-99) mg/dL POC Glucose (mg/dL) 200 H 193 H 173 H (75-99) mg/dL Calcium (8.4-10.2) mg/dL 11/11/19 11/11/19 11/11/19 Range/Units 07:59 09:00 10:09 WBC (3.8-10.6) k/uL RBC (4.30-5.90) m/uL Hgb (13.0-17.5) gm/dL Hct (39.0-53.0) % MCV (80.0-100.0) fL MCHC (31.0-37.0) g/dL Plt Count (150-450) k/uL Chloride (98-107) mmol/L Glucose (74-99) mg/dL POC Glucose (mg/dL) 160 H 169 H 172 H (75-99) mg/dL Calcium (8.4-10.2) mg/dL 11/11/19 11/11/19 11/11/19 Range/Units 11:00 13:20 14:35 WBC (3.8-10.6) k/uL RBC (4.30-5.90) m/uL Hgb (13.0-17.5) gm/dL Hct (39.0-53.0) % MCV (80.0-100.0) fL MCHC (31.0-37.0) g/dL Plt Count (150-450) k/uL Chloride (98-107) mmol/L Glucose (74-99) mg/dL POC Glucose (mg/dL) 185 H 173 H 162 H (75-99) mg/dL Calcium (8.4-10.2) mg/dL 11/11/19 11/11/19 Range/Units 15:17 16:14 WBC (3.8-10.6) k/uL RBC (4.30-5.90) m/uL Hgb (13.0-17.5) gm/dL Hct (39.0-53.0) % MCV (80.0-100.0) fL MCHC (31.0-37.0) g/dL Plt Count (150-450) k/uL Chloride (98-107) mmol/L Glucose (74-99) mg/dL POC Glucose (mg/dL) 163 H 133 H (75-99) mg/dL Calcium (8.4-10.2) mg/dL Microbiology - Last 24 Hours (Table) 11/10/19 00:20 Urine Culture - Preliminary Urine,Voided Yeast species 11/04/19 20:24 Blood Culture - Final Blood No Growth after 144 hours 11/09/19 16:29 Blood Culture - Preliminary Blood No Growth after 24 hours Assessment and Plan Assessment: * Altered mental status, likely related to toxic metabolic encephalopathy. Patient has multiple medical/surgical issues mentioned as below. 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 Rule out diabetic neuropathy/plexopathy * Status post ventilatory-dependent respiratory failure * Status post septic shock. * Status post pneumonia * Status post nonketotic hyperosmolar state with poorly controlled diabetes. 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 Plan: * Patient continues to have toxic metabolic encephalopathy. He continues to be running low-grade fever suggestive of occult infection. * Patient has significant proximal muscle weakness of upper extremity as well as diffuse weakness of bilateral lower extremities. Suggest MRI of the cervical spine to rule out spinal stenosis. We will recheck CPK and aldolase to rule out myopathy. B12 463, folate 13.2, hemoglobin A1c 14.3 on 10/21/2019, suggestive of poorly controlled diabetes.
[2019-11-11 17:47] LABS: Glucose,Whole Blood 128 mg/dL (75-99)
[2019-11-11 19:57] LABS: Glucose,Whole Blood 117 mg/dL (75-99)
[2019-11-11 20:01] LABS: HSV I IgG Interp POSITIVE (NEGATIVE); HSV II IgG Interp NEGATIVE (NEGATIVE)
[2019-11-11 21:09] LABS: Glucose,Whole Blood 141 mg/dL (75-99)
--- NOTE | 2019-11-11 22:19 | P.PN ---
Progress Note - Text Progress Note Date: 11/11/19 Interval history: 79-year-old male with PMH of diabetes mellitus on oral hypoglycemics, con pascual presents the ED for altered mentation. Apparently, patient was visited by his nurse who noted an extremely high blood glucose which prompted his hospital visit. Patient is altered and he is unable to provide any meaningful history. Majority of documentation was obtained from chart review and discussion with his son. Apparently, patient has been confused and disoriented which is progressive ly been worsening over the past 2 weeks. His son reports that the patient fell a week ago and did not seek medical attention. Patient lives with his who is suffering from advanced Alzheimer's dementia and is currently in hospice. According to the son, patient drinks 4 L of soda on a daily basis. Son reports that patient is noncompliant with her diabetic diet. In the ED, vital signs showed a T low of 97.5 Fahrenheit, pulse of 102, tachypnea with respiratory rate of 28, BP of 85/49 and 89% on room air. CBC showed leukocytosis of 11 and MCV of 124.1. ABG showed pH of 7, pCO2 19, bica rbonate of 8. CMP showed sodium of 116, potassium of 5.7, chloride of 74, bicarbonate of 8, BUN 33, creatinine 2.18, glucose greater than 1875. Troponin was 0.881 with EKG showing sinus tachycardia. Urinalysis shows 4+ glucose and trace blood. Acetone was negative. CT brain was negative for hemorrhage but showed slightly hyperdense left MCA compared to right. Chest x-ray showed possible right lower lobe infiltrate. Patient is admitted to ICU for sepsis, troponin elevation and diabetic ketoacidosis. Intubated. Patient developed ischemic hepatitis. Sepsis. Also developed bowel obstruction-that corrected on its own. Seen by neurology. Patient's felt to have anoxic brain injury. Patient was extubated on November 01. Patient regained a fever. IV antifungal was added subsequently cefepime and vancomycin started Today-ICU. Patient. 2 feeding at goal which is about 55 mL an hour. Having significant bowel movements about 800 mL last 24 hours. More awake today did talk a bit. No tired and lethargic. Patient remains in atrial fibrillation. Has a FMS in place. Review of systems cannot be done as patient is lethargic Active Medications Acetaminophen (Tylenol Tab) 650 mg PO Q6HR PRN PRN Reason: Fever and/ or Pain Last Admin: 11/11/19 21:15 Dose: 650 mg Documented by: Amiodarone HCl (Cordarone) 200 mg PO BID [facility] Last Admin: 11/11/19 21:15 Dose: 200 mg Documented by: Aspirin (Aspirin) 81 mg PO DAILY [facility] Last Admin: 11/11/19 08:42 Dose: 81 mg Documented by: Famotidine (Pepcid) 20 mg PO BID [facility] Last Admin: 11/11/19 21:15 Dose: 20 mg Documented by: Heparin Sodium (Porcine) (Heparin) 5,000 unit SQ Q8HR [facility] Last Admin: 11/11/19 17:11 Dose: 5,000 unit Documented by: Hydromorphone HCl (Dilaudid) 0.5 mg IVP Q2HR PRN PRN Reason: Pain Last Admin: 11/10/19 03:10 Dose: 0.5 mg Documented by: Insulin Human Regular 100 unit (/ Sodium Chloride) 101 mls @ 0 mls/hr IV .Q0M [facility]; Protocol Last Titration: 11/11/19 21:09 Dose: 5.5 unit/hr, 5.555 mls/hr Documented by: Sodium Chloride (Saline 0.9%) 500 mls @ 10 mls/hr IV .Q24H [facility] Last Admin: 11/11/19 13:17 Dose: 10 mls/hr Documented by: Lactated Ringer's (Lactated Ringers) 1,000 mls @ 50 mls/hr IV .Q20H [facility] Last Admin: 11/11/19 21:15 Dose: 50 mls/hr Documented by: Anidulafungin 100 mg/ Sodium (Chloride) 100 mls @ 84 mls/hr IVPB DAILY [facility] Last Admin: 11/11/19 08:41 Dose: 84 mls/hr Documented by: Cefepime HCl 2 gm/ Sodium (Chloride) 100 mls @ 200 mls/hr IVPB Q12H [facility] Last Admin: 11/11/19 17:11 Dose: 200 mls/hr Documented by: Vancomycin HCl 1,500 mg/ (Sodium Chloride) 250 mls @ 125 mls/hr IVPB Q12H [facility] Last Admin: 11/11/19 16:05 Dose: 125 mls/hr Documented by: Lisinopril (Zestril) 2.5 mg PO DAILY [facility] Last Admin: 11/11/19 08:42 Dose: 2.5 mg Documented by: Metoprolol Tartrate (Lopressor) 25 mg PO BID [facility] Last Admin: 11/11/19 21:15 Dose: 25 mg Documented by: Miscellaneous Information (Pneumonia Protocol Utilized) 1 each PO ONCE PRN PRN Reason: Per Protocol Miscellaneous Information (Magnesium Per Protocol) 1 each MISCELLANE DAILY PRN; Protocol PRN Reason: Per Protocol Miscellaneous Information (Phosphorus Per Protocol) 1 each MISCELLANE DAILY PRN; Protocol PRN Reason: Per Protocol Miscellaneous Information (Potassium Per Protocol) 1 each MISCELLANE DAILY PRN; Protocol PRN Reason: Per Protocol Naloxone HCl (Narcan) 0.2 mg IV Q2M PRN PRN Reason: Opioid Reversal Nystatin (Mycostatin Oral Susp) 500,000 unit PO QID [facility] Last Admin: 11/11/19 21:15 Dose: 500,000 unit Documented by: On examination: VITAL SIGNS: 100.6, 95, 77, 140-55, 94% on 2 L GENERAL APPEARANCE: laying in bed, a bit more awake today HEENT: Normal external appearance of nose and ear. , NG tube. Oral cavity dry EYES: Pupils equal. Conjunctiva normal. NECK: JVD unable to assess. Mass not palpable. RESPIRATORY: Respiratory effort increased. Lungs -decreased breath sounds CARDIOVASCULAR: First and second sounds normal. Some edema. ABDOMEN: Soft. Liver and spleen not palpable. Some tenderness, no guarding or rigidity. No mass palpable. PSYCHIATRY: Will answer some simple questions occasionally NEUROLOGICAL: Does some movement in the upper extremity. Does answer some questions INVESTIGATIONS, reviewed in the clinical context: White count 15.1 hemoglobin 7.4 platelets 700 potassium 3.7 Urine culture growing yeast Previous testing: White count 11 hemoglobin 13.7 platelets 383 Sodium 116, bicarb 8, bun 33, creatinine 2.18 glucose 1875 troponin I 0.88 1 COVID-19 PCR-not detected computed tomography scan of the brain without contrast-no acute degenerative changes Ultrasound kidney-limited exam 2-D echocardiogram-EF 30-35%, anteroseptal apical hypokinesia AST 3453, ALT 1264, computed tomography scan of the abdomen and pelvis without contrast-dilated multiple loops of small bowel some free fluid in the paracolic gutter bilateral lower lobe pulmonary infiltrates, fusiform 4.4 cm lower abdominal aortic aneurysm with aortoiliac endograft multiple diverticula of the sigmoid colon. Mild wall thickening of the ascending colon. Blood cultures from October 20-negative Abdominal x-ray-October 25--contrast has passed through to thecolon EEG suggestive of encephalopathy, computed tomography scan of the brain-on October 28-chronic changes Sputum culture from November 06, stool culture from November 04, urine culture from November 03 and sputum culture from October 27 all growing [place] albicans Computed tomography scan abdomen and pelvis-November 08-bilateral lower lobe airspace consolidation slightly increased, multiple peripheral hepatic irregular hypodensity areas, splenic hypodensity unchanged, distended small bowel Assessment: -acute nonketotic hyperosmolar diabetes with severe hyperglycemia, POA -Acute small bowel obstruction, and distal jejunal clinically improved, NG tube suction discontinued.- tube feeding started -Acute hypoxic respiratory failure requiring mechanical ventilator extubated on November 01 -Acute metabolic encephalopathy-improving though slowly -Alzheimer's dementia -Pseudohyponatremia from severe hyperglycemia -4.4 cm distal abdominal aortic aneurysm with the endoluminal stent graft -Peripheral arterial disease -Acute shock liver secondary to hypotensive-corrected -Chronic congestive heart failure from systolic dysfunction EF 30-35% -Sepsis with septic shock, possible community acquired pneumonia -Non-ST elevation TX likely type II from demand ischemia, POA -Acute kidney injury likely ATN and prerenal- corrected -Possibly chronic kidney disease -essential hypertension -Pneumonia suspect gram-negative organism -New onset atrial fibrillation. -Anoxic brain slow improvement -Stage II pressure ulcer on the coccyx -Severe diarrhea-negative for C. diff. possibly from 2 feeding improved -Bilateral critical care myopathy -Patient's febrile again. Started on antifungal - November 08. Cefepime and vancomycin was added. Slow to respond. Plan: -Patient does a IV antifungal, cefepime, vancomycin. Sliding fevers. 2 feeding and cold. Still having some loose stools. A. fib controlled. Discussed with Dr. Shell at length. Prognosis guarded. PEG tube may not be a good idea with a high chance of infection given patient being on multiple antibiotics sliding fevers. Advanced care planning: A lengthy discussion was held with the patient's son. Patient's multiple conditions. Prognosis was discussed. PEG tube was also discussed. With the understanding that patient's high risk of infection. And further discussion with the Gen. surgery. He does understand that patient's multiple problems. Sh e'll be coming in to see his father soft. We talked about difference in all areas. He is leaning towards hospice. Depending on how the patient does in the next few days. Total time spent this was about 25 minutes.
[2019-11-11 22:52] LABS: Glucose,Whole Blood 121 mg/dL (75-99)
[2019-11-12 01:19] LABS: Glucose,Whole Blood 121 mg/dL (75-99)
[2019-11-12] MEDS: HEPARIN SODIUM,PORCINE 5,000 UNIT/ML 1 ML VIAL SQ SCH ×4 (01:27→23:31)
[2019-11-12 03:05] LABS: Glucose,Whole Blood 115 mg/dL (75-99)
[2019-11-12] MEDS: VANCOMYCIN 1,500 MG in SODIUM CHLORIDE 0.9% 250 ML IVPB SCH ×2 (03:11→18:54)
[2019-11-12 04:13] LABS: Glucose,Whole Blood 119 mg/dL (75-99)
[2019-11-12 05:00] LABS: HCT 28.7 % (39.0-53.0); HGB 8.5 gm/dL (13.0-17.5); Hypochromasia Marked; MCH 31.6 pg (25.0-35.0); MCHC 29.5 g/dL (31.0-37.0); Macrocytosis Moderate; Mean Platelet Volume 7.8; Platelet Count 686 k/uL (150-450); Poikilocytosis Slight; RBC 2.68 m/uL (4.30-5.90); RDW 14.7 % (11.5-15.5)
[2019-11-12 05:07] LABS: Glucose,Whole Blood 128 mg/dL (75-99)
[2019-11-12] MEDS: CEFEPIME 2 GM in SODIUM CHLORIDE 0.9% 100 ML IVPB SCH ×2 (05:21→18:54)
[2019-11-12 05:24] LABS: African American GFR (CKD) >90 (>60 ml/min/1.73 sqM); Anion Gap 10 mmol/L; Blood Urea Nitrogen 17 mg/dL (9-20); Calcium 7.8 mg/dL (8.4-10.2); Carbon Dioxide 22 mmol/L (22-30); Chloride 108 mmol/L (98-107); Glucose 111 mg/dL (74-99); Non-African American GFR(CKD) 86 (>60 ml/min/1.73 sqM); Sodium 140 mmol/L (137-145)
[2019-11-12 06:55] LABS: Glucose,Whole Blood 147 mg/dL (75-99)
[2019-11-12] MEDS: LISINOPRIL 2.5 MG TAB PO SCH (08:37)
[2019-11-12] MEDS: FAMOTIDINE 20 MG TAB PO SCH ×2 (08:37→22:24)
[2019-11-12] MEDS: ANIDULAFUNGIN 100 MG in SODIUM CHLORIDE 0.9% 100 ML IVPB SCH (08:37)
[2019-11-12] MEDS: METOPROLOL TARTRATE 25 MG TAB PO SCH ×2 (08:37→22:24)
[2019-11-12] MEDS: NYSTATIN 100,000 UNIT/ML SUSP 500,000 UNIT/5 ML CUP PO SCH ×4 (08:37→22:27)
[2019-11-12] MEDS: ASPIRIN 81 MG PO SCH (08:37)
[2019-11-12] MEDS: AMIODARONE 200 MG TAB PO SCH ×2 (08:37→22:24)
[2019-11-12] MEDS: ACETAMINOPHEN TAB 325 MG TAB PO PRN ×2 (08:38→18:51)
[2019-11-12 08:50] LABS: Glucose,Whole Blood 177 mg/dL (75-99)
[2019-11-12 11:34] LABS: Glucose,Whole Blood 174 mg/dL (75-99)
--- NOTE | 2019-11-12 11:54 | P.PN ---
Subjective Progress Note Date: 11/12/19 80-year-old male patient known history of dementia, diabetes hypertension osteoarthritis in addition to abdominal aortic aneurysm, presented to the ED with altered mentation and severe dehydration. The patient's was noted to have elevated blood sugars at home which prompted this hospital visit. He was unable to provide any history at time of admission. He was confused and disoriented and his condition was progressively getting worse over this past few weeks. He apparently had generalized weakness, falls, and he was not seeking any medical attention. He has Alzheimer's dementia. His has Alzheimer's dementia also. Apparently his oral intake has been minimal and the patient was drinking only 4 L of soda on a daily basis. He has been noncompliant his diabetic medications also. A blood sugar of more than 1800. CAT scan of the brain shows no evidence of any acute hemorrhage. There is some degenerative changes and nonspecific white matter changes consistent with remote ischemia. This 79-year-old male patient with a prolonged ICU stay due a multitude of complications that it initially started off with severe dehydration and hyperglycemia and hyperosmolar nonketotic state with subsequent development of an abdominal sepsis secondary to bowel obstruction/ileus, acute hypoxic respiratory failure, acute kidney injury, above and beyond all of his comorbidities that were mentioned in the medical record. Note that during the course of the treatment, the patient required intubation mechanical ventilation and ultimately his condition improved and the patient was weaned off the mechanical ventilator and was extubated. The patient remains in intensive care unit. He is on 2 L of oxygen by nasal cannula. He is receiving lactated Ringer at the rate of 50 mL an hour. He is receiving enteral feeding for nutritional support in the form of Jevity 1.5 with a goal being at 55 mL an hour. He continues to have episodes of temperature and it's catheter tip has been cultured after the triple-lumen catheter was removed and showed no growth. Repeat blood cultures also showed no growth. He does have Layne albicans in his stool and urine and sputum along with evidence of oropharyngeal candidiasis and the patient was started on Eraxis as an antifungal agent. He is also on IV cefepime as a broad-spectrum antibiotic coverage. Part of his fever workup, the patient underwent a CAT scan of the abdomen and pelvis and it showed bilateral pleural effusions and bilateral lower lobe airspace consolidation and atelectasis. There was no evidence of any pericardial effusion. There were multiple hypodense irregular areas in the periphery of the liver measuring up to 5 cm in size. This could be potentially multiple infarcts. There is a similar 5 x 3 hypodensity in the posterior spleen. The bile duct was within normal limits. No evidence of any pancreatic mass. Multiple small calcified gallstones. There was multiple fluid filled distended small loops of small elvin wel. The oral contrast extended into the ileum. Small amount of contrast extended to the cecum at the level of the ileocecal valve. No transition point was seen. There was some mild wall thickening of the sigmoid colon. 4.3 cm aneurysm of the lower abdominal aorta and aortoiliac stents were also noted again. There is abdominal ascites. No evidence of any free air. Lumbar spine was intact and there is no evidence of any compression fractures. The chest x- ray was done showed stable findings along with some lower lung volumes and pulmonary vascular congestion. The patient's stool for C. diff that was collected on 11/05/2019 was also negative. The patient has normal liver function tests. Alkaline phosphatase is 171. The white cell count is not elevated. NG tube is in place and the patient is being trialed on alternative formula as the patient's been having ongoing diarrhea. Testing of the C. diff on 2 separate occasions were negative and the patient's stool output had improv ed following his tube feeds being held. He is currently receiving enteral feeding in the form of Jevity at the rate of 45 mL an hour with a goal of 55. His T-max was 100.4. He is on insulin drip at 2 units an hour. He is on lactated Ringer at 50 mL's an hour. He did normal sinus rhythm. Mental status is impaired and the patient is awake and alert 1. The patient continues to be quite weak and debilitated. The patient's abdomen is slightly distended and he has some minimal direct tenderness. CAT scan of the abdomen was again noted. On today's evaluation of 11/11/2019, I'm seeing the patient for a follow-up. The patient is confused. He is talking and sometimes he makes appropriate comments. Yet for the most part he is quite lethargic and he sleeps. His abdomen remains tender. Upon palpating his abdomen, he does direct tenderness. No rebound tenderness. No guarding. Abdomen is slightly distended. The patient has an NG tube in place. He is receiving enteral feeding for nutritional support. He is on Jevity at the rate of 55 mL an hour. He failed his swallow evaluation. He has produced approximately a 50 mL of diarrhea over the past 24 hours. He has a low-grade fever. His white cell count is slightly elevated and I am obviously again concerned about intra-abdominal pathology contributing to this diarrhea, abdominal distention and pain and leukocytosis. He is on lactated Ringer at the rate of 50 mL an hour. He is receiving insulin drip at 4.5 units an hour for blood sugar control. Renal function is stable. His 40s about 2 by nasal cannula with a pulse ox of 95%. He remains on IV cefepime per IDs recommendations. No other significant events otherwise for now. On 11/12/2019, the patient continues to do poorly. Abdomen is tender and distended. There is still liquidy bowel movements collecting and a fecal management system. He is moaning. His altered in terms of his mentation and he is also febrile. he is on insulin drip at 5.5 units an hour for blood sugar control. He is also receiving normal saline at rate of 50 mL an hour. He is also receiving Jevity at the rate of 55 mL an hour. The son came to visit him yesterday. He was updated on his condition. The family is contemplating hospice and physician will be done hopefully within next 24 hours. Unfortunately nothing much can be offered to this patient. He is covered with broad-spectrum antibiotics. Is still on a combination of Eraxis, cefepime and vancomycin. He is on Dilaudid for pain control. Objective - Vital Signs Vital signs: Vital Signs Temp 101.8 F H 11/12/19 08:00 Pulse 86 11/12/19 11:00 Resp 29 H 11/12/19 11:00 BP 108/54 11/12/19 11:00 Pulse Ox 98 11/12/19 11:00 Intake & Output 11/11/19 11/12/19 11/12/19 18:59 06:59 18:59 Intake Total 7633.576 0893.663 789.174 Output Total 3600 785 480 Balance -6994.030 6629.663 309.174 Weight 82 kg 82.3 kg Intake: IV 850 1030 360 Anidulafungin 100 mg In 100 Sodium Chloride 0.9% 100 ml @ 84 mls/hr IVPB DAILY [facility] Rx#:[id number] Cefepime 2 gm In Sodium 100 Chloride 0.9% 100 ml @ 200 mls/hr IVPB Q12H [facility] Rx#:[id number] Lactated Ringers 1,000 ml 600 550 250 @ 50 mls/hr IV .Q20H [facility] Rx#:[id number] Sodium Chloride 0.9% 500 130 10 ml 500 ml @ 10 mls/hr IV .Q24H [facility] Rx#:[id number] Vancomycin 1,500 mg In 250 250 Sodium Chloride 0.9% 250 ml @ 125 mls/hr IVPB Q12H [facility] Rx#:[id number] Intake, IV Titration 63.176 68.663 14.174 Amount Insulin Regular 100 unit 63.176 68.663 14.174 In Sodium Chloride 0.9% 100 ml @ Per Protocol IV .Q0M [facility] Rx#:[id number] Tube Feeding 825 715 385 Other 90 90 30 Output: Urine 900 785 480 Stool 2700 Other: Voiding Method Indwelling Catheter Indwelling Catheter Indwelling Catheter ABP, PAP, CO, CI - Last Documented Arterial Blood Pressure 145/58 - Exam Gen. appearance the patient is Calm and comfortable and he is not in acute respiratory distress, nevertheless, on today's evaluation he was noted to be more lethargic and obtunded and he is moaning and is in quite uncomfortable situation. the patient has an NG tube in place and is receiving enteral feeding for nutritional support Head exam was generally normal. There was no scleral icterus or corneal arcus. Mucous membranes were dry, the patient has an NG tube in place Neck was supple and without jugular venous distension, thyromegaly, or carotid bruits. Carotids were easily palpable bilaterally. There was no adenopathy. The patient has a left subclavian triple-lumen catheter in place Lungs were clear to auscultation and percussion, and with normal diaphragmatic excursion. No wheezes or rales were noted. Cardiac exam revealed the PMI to be normally situated and sized. The rhythm was regular and no extrasystoles were noted during several minutes of auscultation. The first and second heart sounds were normal and physiologic splitting of the second heart sound was noted. There were no murmurs, rubs, clicks, or gallops. Abdominal exam revealed normal bowel sounds. The patient has hypoactive bowel sounds. The abdomen is slightly distended. There is some mild direct tenderness. Bowel sounds are hypoactive at the present. No organomegaly. No rebound tenderness. No guarding. Extremities reveal chronic ulceration lower extremities bilaterally with diminished pulses. No cyanosis or clubbing. There is no open wounds or cellulitis in the lower extremities. Neurologic the patient is altered neurologically and is nonresponsive on today's evaluation - Labs CBC & Chem 7: 11/12/19 04:12 11/12/19 04:12 Labs: Abnormal Lab Results - Last 24 Hours (Table) 11/09/19 11/11/19 11/11/19 Range/Units 16:29 13:20 14:35 WBC (3.8-10.6) k/uL RBC (4.30-5.90) m/uL Hgb (13.0-17.5) gm/dL Hct (39.0-53.0) % MCV (80.0-100.0) fL MCHC (31.0-37.0) g/dL Plt Count (150-450) k/uL Chloride (98-107) mmol/L Glucose (74-99) mg/dL POC Glucose (mg/dL) 173 H 162 H (75-99) mg/dL Calcium (8.4-10.2) mg/dL HSV I IgG Interpret POSITIVE H (NEGATIVE) 11/11/19 11/11/19 11/11/19 Range/Units 15:17 16:14 17:45 WBC (3.8-10.6) k/uL RBC (4.30-5.90) m/uL Hgb (13.0-17.5) gm/dL Hct (39.0-53.0) % MCV (80.0-100.0) fL MCHC (31.0-37.0) g/dL Plt Count (150-450) k/uL Chloride (98-107) mmol/L Glucose (74-99) mg/dL POC Glucose (mg/dL) 163 H 133 H 128 H (75-99) mg/dL Calcium (8.4-10.2) mg/dL HSV I IgG Interpret (NEGATIVE) 11/11/19 11/11/19 11/11/19 Range/Units 19:55 21:08 22:51 WBC (3.8-10.6) k/uL RBC (4.30-5.90) m/uL Hgb (13.0-17.5) gm/dL Hct (39.0-53.0) % MCV (80.0-100.0) fL MCHC (31.0-37.0) g/dL Plt Count (150-450) k/uL Chloride (98-107) mmol/L Glucose (74-99) mg/dL POC Glucose (mg/dL) 117 H 141 H 121 H (75-99) mg/dL Calcium (8.4-10.2) mg/dL HSV I IgG Interpret (NEGATIVE) 11/12/19 11/12/19 11/12/19 Range/Units 01:17 03:04 04:11 WBC (3.8-10.6) k/uL RBC (4.30-5.90) m/uL Hgb (13.0-17.5) gm/dL Hct (39.0-53.0) % MCV (80.0-100.0) fL MCHC (31.0-37.0) g/dL Plt Count (150-450) k/uL Chloride (98-107) mmol/L Glucose (74-99) mg/dL POC Glucose (mg/dL) 121 H 115 H 119 H (75-99) mg/dL Calcium (8.4-10.2) mg/dL HSV I IgG Interpret (NEGATIVE) 11/12/19 11/12/19 11/12/19 Range/Units 04:12 04:12 05:06 WBC 15.0 H (3.8-10.6) k/uL RBC 2.68 L (4.30-5.90) m/uL Hgb 8.5 L (13.0-17.5) gm/dL Hct 28.7 L (39.0-53.0) % MCV 107.0 H (80.0-100.0) fL MCHC 29.5 L (31.0-37.0) g/dL Plt Count 686 H (150-450) k/uL Chloride 108 H (98-107) mmol/L Glucose 111 H (74-99) mg/dL POC Glucose (mg/dL) 128 H (75-99) mg/dL Calcium 7.8 L (8.4-10.2) mg/dL HSV I IgG Interpret (NEGATIVE) 11/12/19 11/12/19 11/12/19 Range/Units 06:54 08:48 11:32 WBC (3.8-10.6) k/uL RBC (4.30-5.90) m/uL Hgb (13.0-17.5) gm/dL Hct (39.0-53.0) % MCV (80.0-100.0) fL MCHC (31.0-37.0) g/dL Plt Count (150-450) k/uL Chloride (98-107) mmol/L Glucose (74-99) mg/dL POC Glucose (mg/dL) 147 H 177 H 174 H (75-99) mg/dL Calcium (8.4-10.2) mg/dL HSV I IgG Interpret (NEGATIVE) Microbiology - Last 24 Hours (Table) 11/10/19 00:20 Urine Culture - Final Urine,Voided Layne albicans 11/09/19 16:29 Blood Culture - Preliminary Blood No Growth after 48 hours Assessment and Plan Plan: 1 shock with profound hypotension recovered, likely secondary to an abdominal source of the sepsis. The patient is still having diarrhea. The patient had a follow-up CAT scan of the abdomen that showed distended small bowel without any transition point. Consider possibility of a ileus still in general surgeries on the case. NG tube is in place. The patient is receiving enteral feeding. The patient is having liquidy stool with a negative stool for C. diff. nevertheless, continued to see some abdominal distention and tenderness in addition to ongoing diarrhea. The CAT scan of the abdomen also showed dilatation of the small bowel and I think there is still some small bowel ileus or pathology contributing to his diarrhea and abdominal distention and pain. The fever and the mild leukocytosis probably for the same reason. Unfortunately, the patient is not a surgical candidate for exploration. We are still monitoring and treating him conservatively. On today's evaluation of 11/12/2019, the patient continues to have abdominal pain and distention and diarrhea and furthermore he seems to be neurologically more impaired than obtunded and he continues to be febrile. He can see of liquidy stool. I think the overall presentation is consistent with bowel ischemia and the case is obviously nonsurgical because of his underlying comorbidities. 2 acute abdominal distention/pain with further workup indicating small bowel ileus/obstruction which ultimately recovered and the patient has an NG for enteral feeding and nutritional support, see above dictation regarding his abdominal condition. 3 acute hyperosmolar nonketotic diabetic syndrome with severe hyperglycemia and intravascular volume depletion/dehydration, recovered 4 acute kidney injury , Recovered 5 acut hypoxic respiratory failure, currently intubated on a mechanical ventilator, Recovered 6 altered mental status when underlying component of dementia, still confused and alert and oriented 1, the patient continues to have significant motor weakness which is global generalized weakness. 7 diabetes mellitus, maintained oral hypoglycemics with poor compliance, currently on insulin drip 8 alzheimer's dementia 9 pseudohyponatremia, related to severe hyperglycemia, recovered 10 History of hypertension 11 diarrhea likely secondary to enteral feeding and the C. diff evaluation on 2 separate occasions were negative 12 4.6 cm distal abdominal aortic aneurysm extending to the aortic bifurcation and involving the common iliac arteries with indwelling BILATERAL ILIAC END OLUMINAL STENT GRAFT, Unchanged in the most recent CAT scan of the abdomen and pelvis 13 peripheral vascular disease 14 troponin leak, consider Ischemia type 2, the troponin peaked at 2.25 15 acute shock liver secondary to hypotension , recovered 16 CHF with ischemic cardiomyopathy and ejection fraction of 30-35% in addition to old DC involving the anteroseptal and apical segments of the heart and left ventricle consistent with EKG findings. 17 severe lactic acidosis secondary to to above, recovered 18 oropharyngeal candidiasis in addition to Layne and the stool in the urine currently on Eraxis 19 episodic fever under investigation currently on a combination of iV cefepime and Eraxis 20 leukocytosis 21 low-grade fever Plan Poor prognosis Continue the supportive care Possible hospice today all within next 24 hours
--- NOTE | 2019-11-12 12:17 | P.PN ---
<Jodie Garcia Melvin - Last Filed: 11/12/19 12:16> Subjective Progress Note Date: 11/12/19 CHIEF COMPLAINT: Sepsis HISTORY OF PRESENT ILLNESS: Patient examined in the intensive care. Tube feedings are infusing. Patient with FMS with liquid stool. Patient with abdominal pain and moaning during light palpation. Patient remains tachycardic. He is also febrile with a temperature of 101.8 this morning. PHYSICAL EXAM: VITAL SIGNS: Reviewed GENERAL: Well-developed in no acute distress. HEENT: No sclera icterus. Extraocular movements grossly intact. Moist buccal mucosa. Head is atraumatic, normocephalic. No nasal drainage. NECK: Supple without lymphadenopathy. CHEST: Non-labored respirations and equal bilateral excursions. CARDIOVASCULAR: Regular rate with regular rhythm. Palpable 2+ radial pulses. ABDOMEN: Soft. Distended. Tenderness with light palpation. NG tube noted. MUSCULOSKELETAL: No clubbing or cyanosis. NEUROLOGIC: Lethargic SKIN: Well perfused. Good skin turgor. ASSESSMENT: 1. Abnormal computed tomography scan with small bowel distention, resolving PLAN: Continue NPO status as patient failed swallow evaluation. Speech following. Dr. Quintero spoke with family yesterday and have decided against PEG tube placement as patient is a poor surgical candidate. Recommending Dobbhoff for further tube feeding needs Nursing reports the patient's son is considering hospice today. We will await final decision Nurse practitioner note has been reviewed by physician. Signing provider agrees with the documented findings, assessment, and plan of care. Objective - Vital Signs Vital signs: Vital Signs Temp 101.8 F H 11/12/19 08:00 Pulse 99 11/12/19 09:00 Resp 29 H 11/12/19 09:00 BP 129/60 11/12/19 09:00 Pulse Ox 98 11/12/19 09:00 Intake & Output 11/11/19 11/12/19 11/12/19 18:59 06:59 18:59 Intake Total 8653.273 0006.663 565 Output Total 3600 785 380 Balance -9511.428 0411.663 185 Weight 82 kg 82.3 kg Intake: IV 850 1030 260 Anidulafungin 100 mg In 100 Sodium Chloride 0.9% 100 ml @ 84 mls/hr IVPB DAILY [facility] Rx#:[id number] Cefepime 2 gm In Sodium 100 Chloride 0.9% 100 ml @ 200 mls/hr IVPB Q12H [facility] Rx#:[id number] Lactated Ringers 1,000 ml 600 550 150 @ 50 mls/hr IV .Q20H [facility] Rx#:[id number] Sodium Chloride 0.9% 500 130 10 ml 500 ml @ 10 mls/hr IV .Q24H [facility] Rx#:[id number] Vancomycin 1,500 mg In 250 250 Sodium Chloride 0.9% 250 ml @ 125 mls/hr IVPB Q12H [facility] Rx#:[id number] Intake, IV Titration 63.176 68.663 Amount Insulin Regular 100 unit 63.176 68.663 In Sodium Chloride 0.9% 100 ml @ Per Protocol IV .Q0M [facility] Rx#:[id number] Tube Feeding 825 715 275 Other 90 90 30 Output: Urine 900 785 380 Stool 2700 Other: Voiding Method Indwelling Catheter Indwelling Catheter Indwelling Catheter ABP, PAP, CO, CI - Last Documented Arterial Blood Pressure 145/58 - Labs CBC & Chem 7: 11/12/19 04:12 11/12/19 04:12 Labs: Abnormal Lab Results - Last 24 Hours (Table) 11/09/19 11/11/19 11/11/19 Range/Units 16:29 11:00 13:20 WBC (3.8-10.6) k/uL RBC (4.30-5.90) m/uL Hgb (13.0-17.5) gm/dL Hct (39.0-53.0) % MCV (80.0-100.0) fL MCHC (31.0-37.0) g/dL Plt Count (150-450) k/uL Chloride (98-107) mmol/L Glucose (74-99) mg/dL POC Glucose (mg/dL) 185 H 173 H (75-99) mg/dL Calcium (8.4-10.2) mg/dL HSV I IgG Interpret POSITIVE H (NEGATIVE) 11/11/19 11/11/19 11/11/19 Range/Units 14:35 15:17 16:14 WBC (3.8-10.6) k/uL RBC (4.30-5.90) m/uL Hgb (13.0-17.5) gm/dL Hct (39.0-53.0) % MCV (80.0-100.0) fL MCHC (31.0-37.0) g/dL Plt Count (150-450) k/uL Chloride (98-107) mmol/L Glucose (74-99) mg/dL POC Glucose (mg/dL) 162 H 163 H 133 H (75-99) mg/dL Calcium (8.4-10.2) mg/dL HSV I IgG Interpret (NEGATIVE) 11/11/19 11/11/19 11/11/19 Range/Units 17:45 19:55 21:08 WBC (3.8-10.6) k/uL RBC (4.30-5.90) m/uL Hgb (13.0-17.5) gm/dL Hct (39.0-53.0) % MCV (80.0-100.0) fL MCHC (31.0-37.0) g/dL Plt Count (150-450) k/uL Chloride (98-107) mmol/L Glucose (74-99) mg/dL POC Glucose (mg/dL) 128 H 117 H 141 H (75-99) mg/dL Calcium (8.4-10.2) mg/dL HSV I IgG Interpret (NEGATIVE) 11/11/19 11/12/19 11/12/19 Range/Units 22:51 01:17 03:04 WBC (3.8-10.6) k/uL RBC (4.30-5.90) m/uL Hgb (13.0-17.5) gm/dL Hct (39.0-53.0) % MCV (80.0-100.0) fL MCHC (31.0-37.0) g/dL Plt Count (150-450) k/uL Chloride (98-107) mmol/L Glucose (74-99) mg/dL POC Glucose (mg/dL) 121 H 121 H 115 H (75-99) mg/dL Calcium (8.4-10.2) mg/dL HSV I IgG Interpret (NEGATIVE) 11/12/19 11/12/19 11/12/19 Range/Units 04:11 04:12 04:12 WBC 15.0 H (3.8-10.6) k/uL RBC 2.68 L (4.30-5.90) m/uL Hgb 8.5 L (13.0-17.5) gm/dL Hct 28.7 L (39.0-53.0) % MCV 107.0 H (80.0-100.0) fL MCHC 29.5 L (31.0-37.0) g/dL Plt Count 686 H (150-450) k/uL Chloride 108 H (98-107) mmol/L Glucose 111 H (74-99) mg/dL POC Glucose (mg/dL) 119 H (75-99) mg/dL Calcium 7.8 L (8.4-10.2) mg/dL HSV I IgG Interpret (NEGATIVE) 11/12/19 11/12/19 11/12/19 Range/Units 05:06 06:54 08:48 WBC (3.8-10.6) k/uL RBC (4.30-5.90) m/uL Hgb (13.0-17.5) gm/dL Hct (39.0-53.0) % MCV (80.0-100.0) fL MCHC (31.0-37.0) g/dL Plt Count (150-450) k/uL Chloride (98-107) mmol/L Glucose (74-99) mg/dL POC Glucose (mg/dL) 128 H 147 H 177 H (75-99) mg/dL Calcium (8.4-10.2) mg/dL HSV I IgG Interpret (NEGATIVE) Microbiology - Last 24 Hours (Table) 11/09/19 16:29 Blood Culture - Preliminary Blood No Growth after 48 hours 11/10/19 00:20 Urine Culture - Preliminary Urine,Voided Yeast species <Bess Quintero - Last Filed: 11/12/19 18:43> Subjective Patient seen and evaluated with nurse practitioner with additional findings. HISTORY OF PRESENT ILLNESS: The patient is a 79 year old male in the intensive care unit over 3+ weeks secondary to sepsis, uncontrolled hyperglycemia, dementia, liver shock and acute kidney injury. He has been extubated for more than 1 week. He has metabolic encephalopathy. Now he has recurrent fevers with a higher fever curve over 101.0. Infectious disease is following. He is on multiple antibiotics including fungal coverage for candidiasis. Additional diagnostic studies were obtained including CT of the abdomen and pelvis, DVT studies. Patient is off all sedation. He is on no pressors. He awakens to voice. Since admission, he has a nasogastric tube currently for feedings. He h as persistent loose stools over 1 week without blood in his stools. No evidence of C. diff. He is tolerating tube feeds without moderate residuals. Additionally, patient's son came by yesterday whom I spoke to over the phone as well. REVIEW OF ORGAN SYSTEMS: No chest pain. Altered mental status. Has productive sputum. PHYSICAL EXAM: VITALS: Reviewed CONSTITUTIONAL: Well developed and in no acute distress. EYES: Conjuctivae without sclera icterus. Extraocular movements grossly intact. HEAD, EARS, NOSE, THROAT: Moist buccal mucosa. Head is atraumatic, normocephalic. Nasogastric tube present. pressure ulceration along the lateral mouth. NECK: Supple. No thyroidomegaly. RESPIRATORY: Increased respirations. CARDIOVASCULAR: Palpable 2+ radial pulses. ABDOMEN: Soft. Distention. No peritonitis. No rigidity or guarding. MUSCULOSKELETAL: No clubbing, cyanosis. Improved edema of the bilateral upper extremities 1+ left upper arm. SKIN: Warm and well perfused with good skin turgor. NEUROLOGIC: No focal or lateralizing signs. PSYCH: Awakens to voice and touch. Lethargic. CLINCAL LABS: Reviewed. WBC elevated at 15,000 MICROBIOLOGY: Candidiasis in urine, sputum, stool on repeat ASSESSMENT: 1. Sepsis 2. Abdominal aortic aneurysm 3. Uncontrolled diabetes type 2 with hyperglycemia 4. Lactic acidosis 5. Acute respiratory failure 6. Dementia 7. Acute kidney injury 8. Chronic diarrhea 9. Candidiasis 10. Fevers 11. Metabolic encephalopathy PLAN: 1. Patient has poor prognosis and has limited purposeful movement. Neurology is following also notes worsening condition. 2. Separately, the patient is not a surgical candidate. 3. Agree with medical team for discussion with family for hospice care. Objective - Vital Signs Vital signs: Vital Signs Temp 100.1 F H 11/12/19 16:00 Pulse 104 H 11/12/19 17:00 Resp 33 H 11/12/19 17:00 BP 125/63 11/12/19 17:00 Pulse Ox 91 L 11/12/19 17:00 Intake & Output 11/11/19 11/12/19 11/12/19 18:59 06:59 18:59 Intake Total 1112.458 8657.663 1644.174 Output Total 3600 785 1490 Balance -6915.255 0149.663 154.174 Weight 82 kg 82.3 kg Intake: IV 850 1030 660 Anidulafungin 100 mg In 100 Sodium Chloride 0.9% 100 ml @ 84 mls/hr IVPB DAILY [facility] Rx#:[id number] Cefepime 2 gm In Sodium 100 Chloride 0.9% 100 ml @ 200 mls/hr IVPB Q12H [facility] Rx#:[id number] Lactated Ringers 1,000 ml 600 550 550 @ 50 mls/hr IV .Q20H [facility] Rx#:[id number] Sodium Chloride 0.9% 500 130 10 ml 500 ml @ 10 mls/hr IV .Q24H [facility] Rx#:[id number] Vancomycin 1,500 mg In 250 250 Sodium Chloride 0.9% 250 ml @ 125 mls/hr IVPB Q12H [facility] Rx#:[id number] Intake, IV Titration 63.176 68.663 14.174 Amount Insulin Regular 100 unit 63.176 68.663 14.174 In Sodium Chloride 0.9% 100 ml @ Per Protocol IV .Q0M [facility] Rx#:[id number] Tube Feeding 825 715 880 Other 90 90 90 Output: Urine 900 785 790 Stool 2700 700 Other: Voiding Method Indwelling Catheter Indwelling Catheter Indwelling Catheter ABP, PAP, CO, CI - Last Documented Arterial Blood Pressure 145/58 - Labs CBC & Chem 7: 11/12/19 04:12 11/12/19 04:12 Labs: Abnormal Lab Results - Last 24 Hours (Table) 11/09/19 11/11/19 11/11/19 Range/Units 16:29 19:55 21:08 WBC (3.8-10.6) k/uL RBC (4.30-5.90) m/uL Hgb (13.0-17.5) gm/dL Hct (39.0-53.0) % MCV (80.0-100.0) fL MCHC (31.0-37.0) g/dL Plt Count (150-450) k/uL Chloride (98-107) mmol/L Glucose (74-99) mg/dL POC Glucose (mg/dL) 117 H 141 H (75-99) mg/dL Calcium (8.4-10.2) mg/dL Creatine Kinase (55-170) U/L HSV I IgG Interpret POSITIVE H (NEGATIVE) 11/11/19 11/12/19 11/12/19 Range/Units 22:51 01:17 03:04 WBC (3.8-10.6) k/uL RBC (4.30-5.90) m/uL Hgb (13.0-17.5) gm/dL Hct (39.0-53.0) % MCV (80.0-100.0) fL MCHC (31.0-37.0) g/dL Plt Count (150-450) k/uL Chloride (98-107) mmol/L Glucose (74-99) mg/dL POC Glucose (mg/dL) 121 H 121 H 115 H (75-99) mg/dL Calcium (8.4-10.2) mg/dL Creatine Kinase (55-170) U/L HSV I IgG Interpret (NEGATIVE) 11/12/19 11/12/19 11/12/19 Range/Units 04:11 04:12 04:12 WBC 15.0 H (3.8-10.6) k/uL RBC 2.68 L (4.30-5.90) m/uL Hgb 8.5 L (13.0-17.5) gm/dL Hct 28.7 L (39.0-53.0) % MCV 107.0 H (80.0-100.0) fL MCHC 29.5 L (31.0-37.0) g/dL Plt Count 686 H (150-450) k/uL Chloride 108 H (98-107) mmol/L Glucose 111 H (74-99) mg/dL POC Glucose (mg/dL) 119 H (75-99) mg/dL Calcium 7.8 L (8.4-10.2) mg/dL Creatine Kinase (55-170) U/L HSV I IgG Interpret (NEGATIVE) 11/12/19 11/12/19 11/12/19 Range/Units 04:12 05:06 06:54 WBC (3.8-10.6) k/uL RBC (4.30-5.90) m/uL Hgb (13.0-17.5) gm/dL Hct (39.0-53.0) % MCV (80.0-100.0) fL MCHC (31.0-37.0) g/dL Plt Count (150-450) k/uL Chloride (98-107) mmol/L Glucose (74-99) mg/dL POC Glucose (mg/dL) 128 H 147 H (75-99) mg/dL Calcium (8.4-10.2) mg/dL Creatine Kinase <20 L (55-170) U/L HSV I IgG Interpret (NEGATIVE) 11/12/19 11/12/19 11/12/19 Range/Units 08:48 11:32 12:59 WBC (3.8-10.6) k/uL RBC (4.30-5.90) m/uL Hgb (13.0-17.5) gm/dL Hct (39.0-53.0) % MCV (80.0-100.0) fL MCHC (31.0-37.0) g/dL Plt Count (150-450) k/uL Chloride (98-107) mmol/L Glucose (74-99) mg/dL POC Glucose (mg/dL) 177 H 174 H 127 H (75-99) mg/dL Calcium (8.4-10.2) mg/dL Creatine Kinase (55-170) U/L HSV I IgG Interpret (NEGATIVE) 11/12/19 Range/Units 15:51 WBC (3.8-10.6) k/uL RBC (4.30-5.90) m/uL Hgb (13.0-17.5) gm/dL Hct (39.0-53.0) % MCV (80.0-100.0) fL MCHC (31.0-37.0) g/dL Plt Count (150-450) k/uL Chloride (98-107) mmol/L Glucose (74-99) mg/dL POC Glucose (mg/dL) 109 H (75-99) mg/dL Calcium (8.4-10.2) mg/dL Creatine Kinase (55-170) U/L HSV I IgG Interpret (NEGATIVE) Microbiology - Last 24 Hours (Table) 11/10/19 00:20 Urine Culture - Final Urine,Voided Layne albicans 11/09/19 16:29 Blood Culture - Preliminary Blood No Growth after 48 hours Assessment and Plan (1) Hyponatremia Current Visit: Yes Status: Acute Code(s): E87.1 - HYPO-OSMOLALITY AND HYPONATREMIA SNOMED Code(s): 44212554 (2) Hyperkalemia Current Visit: Yes Status: Acute Code(s): E87.5 - HYPERKALEMIA SNOMED Code(s): 87445705 (3) Sigmoid diverticulitis Current Visit: Yes Status: Acute Code(s): K57.32 - DVTRCLI OF LG INT W/O PERFORATION OR ABSCESS W/O BLEEDING SNOMED Code(s): 089099689 (4) Dynamic ileus Current Visit: Yes Status: Acute Code(s): K56.7 - ILEUS, UNSPECIFIED SNOMED Code(s): 19174424 (5) Hyperosmolar syndrome Current Visit: Yes Status: Acute Code(s): E87.0 - HYPEROSMOLALITY AND HYPERNATREMIA SNOMED Code(s): 37165821 (6) Hyperosmolarity due to secondary diabetes mellitus Current Visit: Yes Status: Acute Code(s): E13.00 - OTH DIAB W HYPROSM W/O NONKET HYPRGLY-HYPROS COMA ([facility]) SNOMED Code(s): 09654330 (7) Altered mental state Current Visit: No Status: Acute Code(s): R41.82 - ALTERED MENTAL STATUS, UNSPECIFIED SNOMED Code(s): 710957210 (8) Dementia Current Visit: No Status: Acute Code(s): F03.90 - UNSPECIFIED DEMENTIA WITHOUT BEHAVIORAL DISTURBANCE SNOMED Code(s): 30010579 (9) Renal insufficiency syndrome Current Visit: No Status: Acute Code(s): N28.9 - DISORDER OF KIDNEY AND URETER, UNSPECIFIED SNOMED Code(s): 507886553 (10) Shock liver Current Visit: Yes Status: Acute Code(s): K72.00 - ACUTE AND SUBACUTE HEPATIC FAILURE WITHOUT COMA SNOMED Code(s): 229866951 (11) Sepsis Current Visit: Yes Status: Acute Code(s): A41.9 - SEPSIS, UNSPECIFIED ORGANISM SNOMED Code(s): 93006931
[2019-11-12] MEDS: SODIUM CHLORIDE 0.9% 500 ML 500 ML IV SCH (12:55)
[2019-11-12] MEDS: INSULIN REGULAR 100 UNIT in SODIUM CHLORIDE 0.9% 100 ML IV SCH (12:56)
[2019-11-12 13:01] LABS: Glucose,Whole Blood 127 mg/dL (75-99)
--- NOTE | 2019-11-12 15:25 | PN ---
PROGRESS NOTE DATE OF SERVICE: 11/12/2019 REASON FOR FOLLOWUP: Fever, possible pneumonia. INTERVAL HISTORY: The patient did spike a fever this morning of 101.5 to 101.8. He is afebrile since then. The patient remains to be lethargic and unable to provide any history. Still has the NG in. No worsening diarrhea. PHYSICAL EXAMINATION: Blood pressure 121/55, pulse of 90, temperature 98.6. He is 96% on 2 L nasal cannula. General description is an elderly male, lying in bed in no distress. RESPIRATORY SYSTEM: Unlabored breathing, clear to auscultation anteriorly. HEART: S1, S2. Regular rate and rhythm. ABDOMEN: Soft, mildly distended and tender. LABS: Hemoglobin 8.5, white count of 15,000, BUN of 17, creatinine 0.76. DIAGNOSTIC IMPRESSION AND PLAN: 1. Patient with fever, source is multifactorial with concern for possible abnormal MRSA pneumonia. Patient is covered with cefepime and vancomycin to continue. 2. Urinary tract infection with urine showing Layne albicans. Patient is covered with Eraxis and monitor clinical course closely. MMODL / IJN: [id number] /
[2019-11-12 15:53] LABS: Glucose,Whole Blood 109 mg/dL (75-99)
--- NOTE | 2019-11-12 16:01 | P.PN ---
Subjective Progress Note Date: 11/12/19 11/12/2019: Patient appears much more obtunded, lethargic. Patient's abdomen is more distending. Family is considering hospice. Awaiting another son's approval. 11/11/2019: Patient is slightly more comfortable, awake and alert. Slightly participating more with examination. Still appears tired. Less mumbling. 11/10/2019: Neurological follow-up requested by Dr. Fernandes. Patient was seen by Dr. Jose initially on 10/29/2019, and a follow-up on 11/04/2019. Reviewed her notes. Patient came to the hospital with acute nonketotic hyperosmolar diabetes with severe hyperglycemia. Patient subsequently developed respiratory failure requiring intubation. He also had septic shock, with kidney failure and ischemic hepatitis. He also has atrial fibrillation. Patient was extubated on 11/03/2019. Patient continues to be delirious. Please refer to examination below. Patient's blood test shows WBC 14.2 hemoglobin 8.6, with elevated MCV 105.3. Platelets are 745. Chem-7 included liver functions are normal. Liver functions normal. B12 463 on 11/08/2019, folate 13.2. TFTs normal. Objective - Vital Signs Vital signs: Vital Signs Temp 98.6 F 11/12/19 12:00 Pulse 95 11/12/19 15:00 Resp 34 H 11/12/19 15:00 BP 117/52 11/12/19 15:00 Pulse Ox 98 11/12/19 15:00 Intake & Output 11/11/19 11/12/19 11/12/19 18:59 06:59 18:59 Intake Total 1476.919 9362.663 1349.174 Output Total 3600 785 690 Balance -4898.706 2640.663 659.174 Weight 82 kg 82.3 kg Intake: IV 850 1030 560 Anidulafungin 100 mg In 100 Sodium Chloride 0.9% 100 ml @ 84 mls/hr IVPB DAILY [facility] Rx#:[id number] Cefepime 2 gm In Sodium 100 Chloride 0.9% 100 ml @ 200 mls/hr IVPB Q12H [facility] Rx#:[id number] Lactated Ringers 1,000 ml 600 550 450 @ 50 mls/hr IV .Q20H [facility] Rx#:[id number] Sodium Chloride 0.9% 500 130 10 ml 500 ml @ 10 mls/hr IV .Q24H [facility] Rx#:[id number] Vancomycin 1,500 mg In 250 250 Sodium Chloride 0.9% 250 ml @ 125 mls/hr IVPB Q12H [facility] Rx#:[id number] Intake, IV Titration 63.176 68.663 14.174 Amount Insulin Regular 100 unit 63.176 68.663 14.174 In Sodium Chloride 0.9% 100 ml @ Per Protocol IV .Q0M [facility] Rx#:[id number] Tube Feeding 825 715 715 Other 90 90 60 Output: Urine 900 785 690 Stool 2700 Other: Voiding Method Indwelling Catheter Indwelling Catheter Indwelling Catheter ABP, PAP, CO, CI - Last Documented Arterial Blood Pressure 145/58 - Exam Patient appears much more obtunded, lethargic. Examination deferred. Abdomen obviously protuberant, consistent with ileus. - Labs CBC & Chem 7: 11/12/19 04:12 11/12/19 04:12 Labs: Abnormal Lab Results - Last 24 Hours (Table) 11/09/19 11/11/19 11/11/19 Range/Units 16:29 16:14 17:45 WBC (3.8-10.6) k/uL RBC (4.30-5.90) m/uL Hgb (13.0-17.5) gm/dL Hct (39.0-53.0) % MCV (80.0-100.0) fL MCHC (31.0-37.0) g/dL Plt Count (150-450) k/uL Chloride (98-107) mmol/L Glucose (74-99) mg/dL POC Glucose (mg/dL) 133 H 128 H (75-99) mg/dL Calcium (8.4-10.2) mg/dL Creatine Kinase (55-170) U/L HSV I IgG Interpret POSITIVE H (NEGATIVE) 11/11/19 11/11/19 11/11/19 Range/Units 19:55 21:08 22:51 WBC (3.8-10.6) k/uL RBC (4.30-5.90) m/uL Hgb (13.0-17.5) gm/dL Hct (39.0-53.0) % MCV (80.0-100.0) fL MCHC (31.0-37.0) g/dL Plt Count (150-450) k/uL Chloride (98-107) mmol/L Glucose (74-99) mg/dL POC Glucose (mg/dL) 117 H 141 H 121 H (75-99) mg/dL Calcium (8.4-10.2) mg/dL Creatine Kinase (55-170) U/L HSV I IgG Interpret (NEGATIVE) 11/12/19 11/12/19 11/12/19 Range/Units 01:17 03:04 04:11 WBC (3.8-10.6) k/uL RBC (4.30-5.90) m/uL Hgb (13.0-17.5) gm/dL Hct (39.0-53.0) % MCV (80.0-100.0) fL MCHC (31.0-37.0) g/dL Plt Count (150-450) k/uL Chloride (98-107) mmol/L Glucose (74-99) mg/dL POC Glucose (mg/dL) 121 H 115 H 119 H (75-99) mg/dL Calcium (8.4-10.2) mg/dL Creatine Kinase (55-170) U/L HSV I IgG Interpret (NEGATIVE) 11/12/19 11/12/19 11/12/19 Range/Units 04:12 04:12 04:12 WBC 15.0 H (3.8-10.6) k/uL RBC 2.68 L (4.30-5.90) m/uL Hgb 8.5 L (13.0-17.5) gm/dL Hct 28.7 L (39.0-53.0) % MCV 107.0 H (80.0-100.0) fL MCHC 29.5 L (31.0-37.0) g/dL Plt Count 686 H (150-450) k/uL Chloride 108 H (98-107) mmol/L Glucose 111 H (74-99) mg/dL POC Glucose (mg/dL) (75-99) mg/dL Calcium 7.8 L (8.4-10.2) mg/dL Creatine Kinase <20 L (55-170) U/L HSV I IgG Interpret (NEGATIVE) 0611/12/19 11/12/19 Range/Units 05:06 06:54 08:48 WBC (3.8-10.6) k/uL RBC (4.30-5.90) m/uL Hgb (13.0-17.5) gm/dL Hct (39.0-53.0) % MCV (80.0-100.0) fL MCHC (31.0-37.0) g/dL Plt Count (150-450) k/uL Chloride (98-107) mmol/L Glucose (74-99) mg/dL POC Glucose (mg/dL) 128 H 147 H 177 H (75-99) mg/dL Calcium (8.4-10.2) mg/dL Creatine Kinase (55-170) U/L HSV I IgG Interpret (NEGATIVE) 11/12/19 11/12/19 11/12/19 Range/Units 11:32 12:59 15:51 WBC (3.8-10.6) k/uL RBC (4.30-5.90) m/uL Hgb (13.0-17.5) gm/dL Hct (39.0-53.0) % MCV (80.0-100.0) fL MCHC (31.0-37.0) g/dL Plt Count (150-450) k/uL Chloride (98-107) mmol/L Glucose (74-99) mg/dL POC Glucose (mg/dL) 174 H 127 H 109 H (75-99) mg/dL Calcium (8.4-10.2) mg/dL Creatine Kinase (55-170) U/L HSV I IgG Interpret (NEGATIVE) Microbiology - Last 24 Hours (Table) 11/10/19 00:20 Urine Culture - Final Urine,Voided Layne albicans 11/09/19 16:29 Blood Culture - Preliminary Blood No Growth after 48 hours Assessment and Plan Assessment: * Altered mental status, likely related to toxic metabolic encephalopathy. Patient has multiple medical/surgical issues mentioned as below. Patient's mentation much worse. 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 Rule out diabetic neuropathy/plexopathy * Status post ventilatory-dependent respiratory failure * Status post septic shock. * Status post pneumonia * Status post nonketotic hyperosmolar state with poorly controlled diabetes. 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 Plan: * Patient continues to have toxic metabolic encephalopathy. He continues to be running low-grade fever suggestive of occult infection. Patient's mentation has got worse today. Family is considering comfort care/hospice. * Await MRI of the cervical spine to rule out spinal stenosis. We will recheck CPK and aldolase to rule out myopathy. B12 463, folate 13.2, hemoglobin A1c 14.3 on 10/21/2019, suggestive of poorly controlled diabetes.
[2019-11-12] MEDS: LACTATED RINGERS 1,000 ML IV SCH ×2 (18:51→23:34)
[2019-11-12 19:36] LABS: Glucose,Whole Blood 197 mg/dL (75-99)
--- NOTE | 2019-11-12 20:27 | P.PN ---
Progress Note - Text Progress Note Date: 11/12/19 Interval history: 79-year-old male with PMH of diabetes mellitus on oral hypoglycemics, con pascual presents the ED for altered mentation. Apparently, patient was visited by his nurse who noted an extremely high blood glucose which prompted his hospital visit. Patient is altered and he is unable to provide any meaningful history. Majority of documentation was obtained from chart review and discussion with his son. Apparently, patient has been confused and disoriented which is progressive ly been worsening over the past 2 weeks. His son reports that the patient fell a week ago and did not seek medical attention. Patient lives with his who is suffering from advanced Alzheimer's dementia and is currently in hospice. According to the son, patient drinks 4 L of soda on a daily basis. Son reports that patient is noncompliant with her diabetic diet. In the ED, vital signs showed a T low of 97.5 Fahrenheit, pulse of 102, tachypnea with respiratory rate of 28, BP of 85/49 and 89% on room air. CBC showed leukocytosis of 11 and MCV of 124.1. ABG showed pH of 7, pCO2 19, bica rbonate of 8. CMP showed sodium of 116, potassium of 5.7, chloride of 74, bicarbonate of 8, BUN 33, creatinine 2.18, glucose greater than 1875. Troponin was 0.881 with EKG showing sinus tachycardia. Urinalysis shows 4+ glucose and trace blood. Acetone was negative. CT brain was negative for hemorrhage but showed slightly hyperdense left MCA compared to right. Chest x-ray showed possible right lower lobe infiltrate. Patient is admitted to ICU for sepsis, troponin elevation and diabetic ketoacidosis. Intubated. Patient developed ischemic hepatitis. Sepsis. Also developed bowel obstruction-that corrected on its own. Seen by neurology. Patient's felt to have anoxic brain injury. Patient was extubated on November 01. Patient regained a fever. IV antifungal was added subsequently cefepime and vancomycin started Today-ICU. Patient much more tired and lethargic today. Just about to open his eyes. When I asked him is very tired. On insulin drip. Getting tube feedings. Loose stools. Some abdominal tenderness. Review of systems cannot be done as patient is lethargic Active Medications Acetaminophen (Tylenol Tab) 650 mg PO Q6HR PRN PRN Reason: Fever and/ or Pain Last Admin: 11/12/19 18:51 Dose: 650 mg Documented by: Amiodarone HCl (Cordarone) 200 mg PO BID [facility] Last Admin: 11/12/19 08:37 Dose: 200 mg Documented by: Aspirin (Aspirin) 81 mg PO DAILY [facility] Last Admin: 11/12/19 08:37 Dose: 81 mg Documented by: Famotidine (Pepcid) 20 mg PO BID [facility] Last Admin: 11/12/19 08:37 Dose: 20 mg Documented by: Heparin Sodium (Porcine) (Heparin) 5,000 unit SQ Q8HR [facility] Last Admin: 11/12/19 18:54 Dose: 5,000 unit Documented by: Hydromorphone HCl (Dilaudid) 0.5 mg IVP Q2HR PRN PRN Reason: Pain Last Admin: 11/10/19 03:10 Dose: 0.5 mg Documented by: Insulin Human Regular 100 unit (/ Sodium Chloride) 101 mls @ 0 mls/hr IV .Q0M [facility]; Protocol Last Titration: 11/12/19 18:00 Dose: 7 unit/hr, 7.07 mls/hr Documented by: Sodium Chloride (Saline 0.9%) 500 mls @ 10 mls/hr IV .Q24H [facility] Last Admin: 11/12/19 12:55 Dose: 10 mls/hr Documented by: Lactated Ringer's (Lactated Ringers) 1,000 mls @ 50 mls/hr IV .Q20H [facility] Last Admin: 11/12/19 18:51 Dose: 50 mls/hr Documented by: Anidulafungin 100 mg/ Sodium (Chloride) 100 mls @ 84 mls/hr IVPB DAILY [facility] Last Admin: 11/12/19 08:37 Dose: 84 mls/hr Documented by: Cefepime HCl 2 gm/ Sodium (Chloride) 100 mls @ 200 mls/hr IVPB Q12H [facility] Last Admin: 11/12/19 18:54 Dose: 200 mls/hr Documented by: Vancomycin HCl 1,500 mg/ (Sodium Chloride) 250 mls @ 125 mls/hr IVPB Q12H [facility] Last Admin: 11/12/19 18:54 Dose: 125 mls/hr Documented by: Lisinopril (Zestril) 2.5 mg PO DAILY [facility] Last Admin: 11/12/19 08:37 Dose: 2.5 mg Documented by: Metoprolol Tartrate (Lopressor) 25 mg PO BID [facility] Last Admin: 11/12/19 08:37 Dose: 25 mg Documented by: Miscellaneous Information (Pneumonia Protocol Utilized) 1 each PO ONCE PRN PRN Reason: Per Protocol Miscellaneous Information (Magnesium Per Protocol) 1 each MISCELLANE DAILY PRN; Protocol PRN Reason: Per Protocol Miscellaneous Information (Phosphorus Per Protocol) 1 each MISCELLANE DAILY PRN; Protocol PRN Reason: Per Protocol Miscellaneous Information (Potassium Per Protocol) 1 each MISCELLANE DAILY PRN; Protocol PRN Reason: Per Protocol Miscellaneous Information (Vancomycin Trough Due) 0 each MISCELLANE DIRECTED ONE Stop: 11/13/19 14:01 Naloxone HCl (Narcan) 0.2 mg IV Q2M PRN PRN Reason: Opioid Reversal Nystatin (Mycostatin Oral Susp) 500,000 unit PO QID [facility] Last Admin: 11/12/19 18:55 Dose: 500,000 unit Documented by: On examination: VITAL SIGNS: 98.6, 80, 26, 112/53, 94% on 2 L GENERAL APPEARANCE: laying in bed, more tired and lethargic today. HEENT: Normal external appearance of nose and ear. , NG tube. Oral cavity dry EYES: Pupils equal. Conjunctiva normal. NECK: JVD unable to assess. Mass not palpable. RESPIRATORY: Respiratory effort increased. Lungs -decreased breath sounds CARDIOVASCULAR: First and second sounds normal. Some edema. ABDOMEN: Soft. Liver and spleen not palpable. Some tenderness, no guarding or rigidity. No mass palpable. PSYCHIATRY: Unable to assess NEUROLOGICAL: More lethargic today. Though arousable. INVESTIGATIONS, reviewed in the clinical context: White count 15 hemoglobin 8.5 platelets 66 potassium 4 creatinine 0.76 Previous testing: White count 11 hemoglobin 13.7 platelets 383 Sodium 116, bicarb 8, bun 33, creatinine 2.18 glucose 1875 troponin I 0.88 1 COVID-19 PCR-not detected computed tomography scan of the brain without contrast-no acute degenerative changes Ultrasound kidney-limited exam 2-D echocardiogram-EF 30-35%, anteroseptal apical hypokinesia AST 3453, ALT 1264, computed tomography scan of the abdomen and pelvis without contrast-dilated multiple loops of small bowel some free fluid in the paracolic gutter bilateral lower lobe pulmonary infiltrates, fusiform 4.4 cm lower abdominal aortic aneurysm with aortoiliac endograft multiple diverticula of the sigmoid colon. Mild wall thickening of the ascending colon. Blood cultures from October 20-negative Abdominal x-ray-October 25--contrast has passed through to thecolon EEG suggestive of encephalopathy, computed tomography scan of the brain-on October 28-chronic changes Sputum culture from November 06, stool culture from November 04, urine culture from November 03 and sputum culture from October 27 all growing [place] albicans Computed tomography scan abdomen and pelvis-November 08-bilateral lower lobe airspace consolidation slightly increased, multiple peripheral hepatic irregular hypodensity areas, splenic hypodensity unchanged, distended small bowel Assessment: -acute nonketotic hyperosmolar diabetes with severe hyperglycemia, POA -Acute small bowel obstruction, and distal jejunal clinically improved, NG tube suction discontinued.- tube feeding started -Acute hypoxic respiratory failure requiring mechanical ventilator extubated on November 01 -Acute metabolic encephalopathy-improving though slowly -Alzheimer's dementia -Pseudohyponatremia from severe hyperglycemia -4.4 cm distal abdominal aortic aneurysm with the endoluminal stent graft -Peripheral arterial disease -Acute shock liver secondary to hypotensive-corrected -Chronic congestive heart failure from systolic dysfunction EF 30-35% -Sepsis with septic shock, possible community acquired pneumonia -Non-ST elevation CO likely type II from demand ischemia, POA -Acute kidney injury likely ATN and prerenal- corrected -Possibly chronic kidney disease -essential hypertension -Pneumonia suspect gram-negative organism -New onset atrial fibrillation. -Anoxic brain slow improvement -Stage II pressure ulcer on the coccyx -Severe diarrhea-negative for C. diff. possibly from 2 feeding improved -Bilateral critical care myopathy -Patient's febrile again. Started on antifungal - November 08. Cefepime and vancomycin was added. Slow to respond. Plan: Continue with antifungal IV, cefepime, vancomycin. Patient this evening again spiking fevers. More drowsy. We'll lethargic. This afternoon I spoke to patient's son Jace. Given update. Patient not doing well. Patient's other son will be coming in later today was that the patient. Patient's eldest son Jace is the-D POA
[2019-11-12 21:10] LABS: Glucose,Whole Blood 154 mg/dL (75-99)
[2019-11-12 23:15] LABS: Glucose,Whole Blood 123 mg/dL (75-99)
[2019-11-13 00:53] LABS: Glucose,Whole Blood 113 mg/dL (75-99)
[2019-11-13] MEDS: INSULIN REGULAR 100 UNIT in SODIUM CHLORIDE 0.9% 100 ML IV SCH (01:05)
[2019-11-13 03:04] LABS: Glucose,Whole Blood 198 mg/dL (75-99)
[2019-11-13] MEDS: VANCOMYCIN 1,500 MG in SODIUM CHLORIDE 0.9% 250 ML IVPB SCH ×2 (03:11→14:49)
[2019-11-13 04:58] LABS: Glucose,Whole Blood 194 mg/dL (75-99)
[2019-11-13 05:03] LABS: Basophils % (A) 0 %; Eosinophils # (A) 0.1 k/uL (0-0.7); Eosinophils % (A) 1 %; HCT 24.4 % (39.0-53.0); HGB 7.1 gm/dL (13.0-17.5); Hypochromasia Marked; Lymphocytes # (A) 0.7 k/uL (1.0-4.8); Lymphocytes % (A) 5 %; MCH 29.7 pg (25.0-35.0); MCHC 29.1 g/dL (31.0-37.0); MCV 102.1 fL (80.0-100.0); Macrocytosis Slight; Mean Platelet Volume 7.5; Monocytes # (A) 0.5 k/uL (0-1.0); Monocytes % (A) 4 %; Neutrophils # (A) 12.3 k/uL (1.3-7.7); Neutrophils % (A) 89 %; Platelet Count 634 k/uL (150-450); Poikilocytosis Slight; RBC 2.39 m/uL (4.30-5.90); RDW 14.9 % (11.5-15.5); WBC 13.8 k/uL (3.8-10.6)
[2019-11-13 05:05] LABS: African American GFR (CKD) >90 (>60 ml/min/1.73 sqM); Anion Gap 7 mmol/L; Blood Urea Nitrogen 19 mg/dL (9-20); Calcium 7.5 mg/dL (8.4-10.2); Carbon Dioxide 22 mmol/L (22-30); Chloride 110 mmol/L (98-107); Glucose 183 mg/dL (74-99); Non-African American GFR(CKD) 85 (>60 ml/min/1.73 sqM); Potassium 3.2 mmol/L (3.5-5.1); Sodium 139 mmol/L (137-145)
[2019-11-13] MEDS: CEFEPIME 2 GM in SODIUM CHLORIDE 0.9% 100 ML IVPB SCH ×2 (05:23→16:45)
[2019-11-13] MEDS ORDERED: Potassium Replacement Protocol 1 EACH MISC MISCELLANE PRN (05:55)
[2019-11-13] MEDS: POTASSIUM BICARBONATE/CIT AC 20 MEQ TABLET.EFF NG-TUBE SCH (06:12)
[2019-11-13 06:57] LABS: Glucose,Whole Blood 115 mg/dL (75-99)
[2019-11-13] MEDS: LISINOPRIL 2.5 MG TAB PO SCH (08:32)
[2019-11-13] MEDS: ASPIRIN 81 MG PO SCH (08:32)
[2019-11-13] MEDS: FAMOTIDINE 20 MG TAB PO SCH ×2 (08:32→20:30)
[2019-11-13] MEDS: AMIODARONE 200 MG TAB PO SCH ×2 (08:32→20:30)
[2019-11-13] MEDS: HEPARIN SODIUM,PORCINE 5,000 UNIT/ML 1 ML VIAL SQ SCH ×2 (08:32→15:56)
[2019-11-13] MEDS: METOPROLOL TARTRATE 25 MG TAB PO SCH ×2 (08:33→20:30)
[2019-11-13] MEDS: ANIDULAFUNGIN 100 MG in SODIUM CHLORIDE 0.9% 100 ML IVPB SCH (08:33)
[2019-11-13] MEDS: INSULIN DETEMIR (LEVEMIR) 100 UNIT/ML SYR SQ SCH (11:09)
--- NOTE | 2019-11-13 11:31 | P.PN ---
Subjective Progress Note Date: 11/13/19 80-year-old male patient known history of dementia, diabetes hypertension osteoarthritis in addition to abdominal aortic aneurysm, presented to the ED with altered mentation and severe dehydration. The patient's was noted to have elevated blood sugars at home which prompted this hospital visit. He was unable to provide any history at time of admission. He was confused and disoriented and his condition was progressively getting worse over this past few weeks. He apparently had generalized weakness, falls, and he was not seeking any medical attention. He has Alzheimer's dementia. His has Alzheimer's dementia also. Apparently his oral intake has been minimal and the patient was drinking only 4 L of soda on a daily basis. He has been noncompliant his diabetic medications also. A blood sugar of more than 1800. CAT scan of the brain shows no evidence of any acute hemorrhage. There is some degenerative changes and nonspecific white matter changes consistent with remote ischemia. This 79-year-old male patient with a prolonged ICU stay due a multitude of complications that it initially started off with severe dehydration and hyperglycemia and hyperosmolar nonketotic state with subsequent development of an abdominal sepsis secondary to bowel obstruction/ileus, acute hypoxic respiratory failure, acute kidney injury, above and beyond all of his comorbidities that were mentioned in the medical record. Note that during the course of the treatment, the patient required intubation mechanical ventilation and ultimately his condition improved and the patient was weaned off the mechanical ventilator and was extubated. The patient remains in intensive care unit. He is on 2 L of oxygen by nasal cannula. He is receiving lactated Ringer at the rate of 50 mL an hour. He is receiving enteral feeding for nutritional support in the form of Jevity 1.5 with a goal being at 55 mL an hour. He continues to have episodes of temperature and it's catheter tip has been cultured after the triple-lumen catheter was removed and showed no growth. Repeat blood cultures also showed no growth. He does have Layne albicans in his stool and urine and sputum along with evidence of oropharyngeal candidiasis and the patient was started on Eraxis as an antifungal agent. He is also on IV cefepime as a broad-spectrum antibiotic coverage. Part of his fever workup, the patient underwent a CAT scan of the abdomen and pelvis and it showed bilateral pleural effusions and bilateral lower lobe airspace consolidation and atelectasis. There was no evidence of any pericardial effusion. There were multiple hypodense irregular areas in the periphery of the liver measuring up to 5 cm in size. This could be potentially multiple infarcts. There is a similar 5 x 3 hypodensity in the posterior spleen. The bile duct was within normal limits. No evidence of any pancreatic mass. Multiple small calcified gallstones. There was multiple fluid filled distended small loops of small elvin wel. The oral contrast extended into the ileum. Small amount of contrast extended to the cecum at the level of the ileocecal valve. No transition point was seen. There was some mild wall thickening of the sigmoid colon. 4.3 cm aneurysm of the lower abdominal aorta and aortoiliac stents were also noted again. There is abdominal ascites. No evidence of any free air. Lumbar spine was intact and there is no evidence of any compression fractures. The chest x- ray was done showed stable findings along with some lower lung volumes and pulmonary vascular congestion. The patient's stool for C. diff that was collected on 11/05/2019 was also negative. The patient has normal liver function tests. Alkaline phosphatase is 171. The white cell count is not elevated. NG tube is in place and the patient is being trialed on alternative formula as the patient's been having ongoing diarrhea. Testing of the C. diff on 2 separate occasions were negative and the patient's stool output had improv ed following his tube feeds being held. He is currently receiving enteral feeding in the form of Jevity at the rate of 45 mL an hour with a goal of 55. His T-max was 100.4. He is on insulin drip at 2 units an hour. He is on lactated Ringer at 50 mL's an hour. He did normal sinus rhythm. Mental status is impaired and the patient is awake and alert 1. The patient continues to be quite weak and debilitated. The patient's abdomen is slightly distended and he has some minimal direct tenderness. CAT scan of the abdomen was again noted. On today's evaluation of 11/11/2019, I'm seeing the patient for a follow-up. The patient is confused. He is talking and sometimes he makes appropriate comments. Yet for the most part he is quite lethargic and he sleeps. His abdomen remains tender. Upon palpating his abdomen, he does direct tenderness. No rebound tenderness. No guarding. Abdomen is slightly distended. The patient has an NG tube in place. He is receiving enteral feeding for nutritional support. He is on Jevity at the rate of 55 mL an hour. He failed his swallow evaluation. He has produced approximately a 50 mL of diarrhea over the past 24 hours. He has a low-grade fever. His white cell count is slightly elevated and I am obviously again concerned about intra-abdominal pathology contributing to this diarrhea, abdominal distention and pain and leukocytosis. He is on lactated Ringer at the rate of 50 mL an hour. He is receiving insulin drip at 4.5 units an hour for blood sugar control. Renal function is stable. His 40s about 2 by nasal cannula with a pulse ox of 95%. He remains on IV cefepime per IDs recommendations. No other significant events otherwise for now. On 11/12/2019, the patient continues to do poorly. Abdomen is tender and distended. There is still liquidy bowel movements collecting and a fecal management system. He is moaning. His altered in terms of his mentation and he is also febrile. he is on insulin drip at 5.5 units an hour for blood sugar control. He is also receiving normal saline at rate of 50 mL an hour. He is also receiving Jevity at the rate of 55 mL an hour. The son came to visit him yesterday. He was updated on his condition. The family is contemplating hospice and physician will be done hopefully within next 24 hours. Unfortunately nothing much can be offered to this patient. He is covered with broad-spectrum antibiotics. Is still on a combination of Eraxis, cefepime and vancomycin. He is on Dilaudid for pain control. On 11/13/2019, unlike yesterday, the patient is awake and communicating. He follows simple commands. His moving extremities mainly Doppler, and lower extremity is quite weak. He is having low-grade fever. Abdomen is distended and tender. His having liquidy stool while being on Jevity. No plans for any surgical intervention as the patient carries a very poor prognosis according to the surgeon's opinion. Remains on a combination of cefepime Eraxis and vancomycin. He is also on Dilaudid for pain control. He'll be taken off the insulin drip and switch to Levemir insulin for blood sugar control. Family is leaning towards hospice although final decision has not been done. No focal neurological deficit. He is more alert compared to yesterday on today's evalua tion. Objective - Vital Signs Vital signs: Vital Signs Temp 100.6 F H 11/13/19 08:00 Pulse 87 11/13/19 10:00 Resp 33 H 11/13/19 10:00 BP 121/56 11/13/19 10:00 Pulse Ox 96 11/13/19 10:00 Intake & Output 11/12/19 11/13/19 11/13/19 18:59 06:59 18:59 Intake Total 5491.240 9784.753 697.825 Output Total 1570 1490 210 Balance 162.437 860.753 487.825 Weight 82.6 kg Intake: IV 660 1305 320 Anidulafungin 100 mg In 100 100 Sodium Chloride 0.9% 100 ml @ 84 mls/hr IVPB DAILY [facility] Rx#:[id number] Cefepime 2 gm In Sodium 400 Chloride 0.9% 100 ml @ 200 mls/hr IVPB Q12H [facility] Rx#:[id number] Lactated Ringers 1,000 ml 550 450 200 @ 50 mls/hr IV .Q20H [facility] Rx#:[id number] Sodium Chloride 0.9% 500 10 80 20 ml 500 ml @ 10 mls/hr IV .Q24H [facility] Rx#:[id number] Vancomycin 1,500 mg In 375 Sodium Chloride 0.9% 250 ml @ 125 mls/hr IVPB Q12H [facility] Rx#:[id number] Intake, IV Titration 47.437 45.753 37.825 Amount Insulin Regular 100 unit 47.437 45.753 37.825 In Sodium Chloride 0.9% 100 ml @ Per Protocol IV .Q0M [facility] Rx#:[id number] Tube Feeding 935 880 270 Other 90 120 70 Output: Urine 870 790 210 Stool 700 700 Other: Voiding Method Indwelling Catheter Indwelling Catheter Indwelling Catheter ABP, PAP, CO, CI - Last Documented Arterial Blood Pressure 145/58 - Exam Gen. appearance the patient is Calm and comfortable and he is awake and alert and following commands. NG tube is in place. Head exam was generally normal. There was no scleral icterus or corneal arcus. Mucous membranes were dry, the patient has an NG tube in place Neck was supple and without jugular venous distension, thyromegaly, or carotid bruits. Carotids were easily palpable bilaterally. There was no adenopathy. The patient has a left subclavian triple-lumen catheter in place Lungs were clear to auscultation and percussion, and with normal diaphragmatic excursion. No wheezes or rales were noted. Cardiac exam revealed the PMI to be normally situated and sized. The rhythm was regular and no extrasystoles were noted during several minutes of auscultation. The first and second heart sounds were normal and physiologic splitting of the second heart sound was noted. There were no murmurs, rubs, clicks, or gallops. Abdominal exam revealed normal bowel sounds. The patient has hypoactive bowel sounds. The abdomen is slightly distended. There is some mild direct tenderness. Bowel sounds are hypoactive at the present. No organomegaly. No rebound tenderness. No guarding. Extremities reveal chronic ulceration lower extremities bilaterally with diminished pulses. No cyanosis or clubbing. There is no open wounds or cellulitis in the lower extremities. Neurologic the patient is awake and alert and following commands and moving extremities although there is global weakness. No focal neurological deficit this point in time. No Babinski. No clonus. Motor weakness is more in lower extremities bilaterally. - Labs CBC & Chem 7: 11/13/19 04:37 11/13/19 04:37 Labs: Abnormal Lab Results - Last 24 Hours (Table) 11/12/19 11/12/19 11/12/19 Range/Units 04:12 11:32 12:59 WBC (3.8-10.6) k/uL RBC (4.30-5.90) m/uL Hgb (13.0-17.5) gm/dL Hct (39.0-53.0) % MCV (80.0-100.0) fL MCHC (31.0-37.0) g/dL Plt Count (150-450) k/uL Neutrophils # (1.3-7.7) k/uL Lymphocytes # (1.0-4.8) k/uL Potassium (3.5-5.1) mmol/L Chloride (98-107) mmol/L Glucose (74-99) mg/dL POC Glucose (mg/dL) 174 H 127 H (75-99) mg/dL Calcium (8.4-10.2) mg/dL Creatine Kinase <20 L (55-170) U/L 11/12/19 11/12/19 11/12/19 Range/Units 15:51 19:00 21:09 WBC (3.8-10.6) k/uL RBC (4.30-5.90) m/uL Hgb (13.0-17.5) gm/dL Hct (39.0-53.0) % MCV (80.0-100.0) fL MCHC (31.0-37.0) g/dL Plt Count (150-450) k/uL Neutrophils # (1.3-7.7) k/uL Lymphocytes # (1.0-4.8) k/uL Potassium (3.5-5.1) mmol/L Chloride (98-107) mmol/L Glucose (74-99) mg/dL POC Glucose (mg/dL) 109 H 197 H 154 H (75-99) mg/dL Calcium (8.4-10.2) mg/dL Creatine Kinase (55-170) U/L 11/12/19 11/13/19 11/13/19 Range/Units 23:13 00:52 03:02 WBC (3.8-10.6) k/uL RBC (4.30-5.90) m/uL Hgb (13.0-17.5) gm/dL Hct (39.0-53.0) % MCV (80.0-100.0) fL MCHC (31.0-37.0) g/dL Plt Count (150-450) k/uL Neutrophils # (1.3-7.7) k/uL Lymphocytes # (1.0-4.8) k/uL Potassium (3.5-5.1) mmol/L Chloride (98-107) mmol/L Glucose (74-99) mg/dL POC Glucose (mg/dL) 123 H 113 H 198 H (75-99) mg/dL Calcium (8.4-10.2) mg/dL Creatine Kinase (55-170) U/L 11/13/19 11/13/19 11/13/19 Range/Units 04:37 04:37 04:56 WBC 13.8 H (3.8-10.6) k/uL RBC 2.39 L (4.30-5.90) m/uL Hgb 7.1 L (13.0-17.5) gm/dL Hct 24.4 L (39.0-53.0) % MCV 102.1 H (80.0-100.0) fL MCHC 29.1 L (31.0-37.0) g/dL Plt Count 634 H (150-450) k/uL Neutrophils # 12.3 H (1.3-7.7) k/uL Lymphocytes # 0.7 L (1.0-4.8) k/uL Potassium 3.2 L (3.5-5.1) mmol/L Chloride 110 H (98-107) mmol/L Glucose 183 H (74-99) mg/dL POC Glucose (mg/dL) 194 H (75-99) mg/dL Calcium 7.5 L (8.4-10.2) mg/dL Creatine Kinase (55-170) U/L 11/13/19 Range/Units 06:54 WBC (3.8-10.6) k/uL RBC (4.30-5.90) m/uL Hgb (13.0-17.5) gm/dL Hct (39.0-53.0) % MCV (80.0-100.0) fL MCHC (31.0-37.0) g/dL Plt Count (150-450) k/uL Neutrophils # (1.3-7.7) k/uL Lymphocytes # (1.0-4.8) k/uL Potassium (3.5-5.1) mmol/L Chloride (98-107) mmol/L Glucose (74-99) mg/dL POC Glucose (mg/dL) 115 H (75-99) mg/dL Calcium (8.4-10.2) mg/dL Creatine Kinase (55-170) U/L Microbiology - Last 24 Hours (Table) 11/09/19 16:29 Blood Culture - Preliminary Blood No Growth after 72 hours 11/10/19 00:20 Urine Culture - Final Urine,Voided Layne albicans Assessment and Plan Plan: 1 shock with profound hypotension recovered, likely secondary to an abdominal source of the sepsis. The patient is still having diarrhea. The patient had a follow-up CAT scan of the abdomen that showed distended small bowel without any transition point. Consider possibility of a ileus still in general surgeries on the case. NG tube is in place. The patient is receiving enteral feeding. The patient is having liquidy stool with a negative stool for C. diff. nevertheless, continued to see some abdominal distention and tenderness in addition to ongoing diarrhea. The CAT scan of the abdomen also showed dilatation of the small bowel and I think there is still some small bowel ileus or pathology contributing to his diarrhea and abdominal distention and pain. The fever and the mild leukocytosis probably for the same reason. Unfortunately, the patient is not a surgical candidate for exploration. There is still no major progress and this condition. Mental status although it continues to fluctuate, this morning he seems to much more awake and alert. The surgeon has no plans to do any exploration of the abdomen which remains quite distended and tender. I think there is either a partial obstruction or ischemic bowel which is contributing to his overall decompensation and this was a problem from the get go. I somewhat agree that the patient may not be able to tolerate any surgical intervention based on his extensive debility and comorbidities. The treatment essentially supportive and the patient for nutritional support. He is profoundly weak at this point in time. 2 acute abdominal distention/pain with further workup indicating small bowel ileus/obstruction which ultimately recovered and the patient has an NG for enteral feeding and nutritional support, see above dictation regarding his abdom inal condition. 3 acute hyperosmolar nonketotic diabetic syndrome with severe hyperglycemia and intravascular volume depletion/dehydration, recovered 4 acute kidney injury , Recovered 5 acut hypoxic respiratory failure, currently intubated on a mechanical ventilator, Recovered, currently on 5 L of oxygen by nasal cannula 6 altered mental status when underlying component of dementia, and the mental status continues to fluctuate 7 diabetes mellitus, maintained oral hypoglycemics with poor compliance, currently on insulin drip 8 alzheimer's dementia 9 pseudohyponatremia, related to severe hyperglycemia, recovered 10 History of hypertension 11 diarrhea likely secondary to enteral feeding and the C. diff evaluation on 2 separate occasions were negative 12 4.6 cm distal abdominal aortic aneurysm extending to the aortic bifurcation and involving the common iliac arteries with indwelling BILATERAL ILIAC ENDOLUMINAL STENT GRAFT, Unchanged in the most recent CAT scan of the abdomen a nd pelvis 13 peripheral vascular disease 14 troponin leak, consider Ischemia type 2, the troponin peaked at 2.25 15 acute shock liver secondary to hypotension , recovered 16 CHF with ischemic cardiomyopathy and ejection fraction of 30-35% in addition to old IL involving the anteroseptal and apical segments of the heart and left ventricle consistent with EKG findings. 17 severe lactic acidosis secondary to to above, recovered 18 oropharyngeal candidiasis in addition to Layne and the stool in the urine currently on Eraxis 19 episodic fever under investigation currently on a combination of iV cefepime and Eraxis 20 leukocytosis 21 low-grade fever Plan Keep the NG tube in place Continue enteral feeding for nutritional support Continue same antibiotic coverage Surgery to reevaluate the abdomen Discontinued today insulin drip and put the patient on Lantus insulin 12 units along with his vascular coverage Prognosis poor as mentioned earlier We'll continue to follow
[2019-11-13 11:47] LABS: Glucose,Whole Blood 205 mg/dL (75-99)
[2019-11-13] MEDS: INSULIN ASPART (NovoLOG) 100 UNIT/ML VIAL SQ SCH ×3 (11:49→20:31)
[2019-11-13] MEDS: ACETAMINOPHEN TAB 325 MG TAB PO PRN (11:55)
[2019-11-13] MEDS: NYSTATIN 100,000 UNIT/ML SUSP 500,000 UNIT/5 ML CUP PO SCH ×3 (13:55→22:50)
[2019-11-13] MEDS ORDERED: VANCOMYCIN TROUGH DUE 1 EACH MISC MISCELLANE ONE (14:00)
--- NOTE | 2019-11-13 14:15 | P.PN ---
<Jodie Garcia Melvin - Last Filed: 11/13/19 14:09> Subjective Progress Note Date: 11/13/19 CHIEF COMPLAINT: Sepsis HISTORY OF PRESENT ILLNESS: Patient examined in the intensive care. Tube feedings are infusing. Patient with FMS with liquid stool. Patient appears more awake today. He is able to answer some questions when asked by Dr. Quintero. He denies abdominal pain. PHYSICAL EXAM: VITAL SIGNS: Reviewed GENERAL: Well-developed in no acute distress. HEENT: No sclera icterus. Extraocular movements grossly intact. Moist buccal mucosa. Head is atraumatic, normocephalic. No nasal drainage. NECK: Supple without lymphadenopathy. CHEST: Non-labored respirations and equal bilateral excursions. CARDIOVASCULAR: Regular rate with regular rhythm. Palpable 2+ radial pulses. ABDOMEN: Soft. Distended. Nontender. NG tube noted. MUSCULOSKELETAL: No clubbing or cyanosis. NEUROLOGIC: Drowsy. Awakens easily to verbal stimuli. SKIN: Well perfused. Good skin turgor. ASSESSMENT: 1. Abnormal computed tomography scan with small bowel distention, resolving PLAN: Dr. Quintero recommends discontinuing NG tube today and nursing to place Dobbhoff May continue tube feedings as tolerated Patients family is considering hospice today. We will await final decision Nurse practitioner note has been reviewed by physician. Signing provider agrees with the documented findings, assessment, and plan of care. Objective - Vital Signs Vital signs: Vital Signs Temp 100.1 F H 11/13/19 12:00 Pulse 90 11/13/19 13:00 Resp 36 H 11/13/19 13:00 BP 113/52 11/13/19 13:00 Pulse Ox 93 L 11/13/19 13:00 Intake & Output 11/12/19 11/13/19 11/13/19 18:59 06:59 18:59 Intake Total 9976.685 5168.753 1032.825 Output Total 1570 1490 395 Balance 162.437 860.753 637.825 Weight 82.6 kg Intake: IV 660 1305 470 Anidulafungin 100 mg In 100 100 Sodium Chloride 0.9% 100 ml @ 84 mls/hr IVPB DAILY [facility] Rx#:[id number] Cefepime 2 gm In Sodium 400 Chloride 0.9% 100 ml @ 200 mls/hr IVPB Q12H [facility] Rx#:[id number] Lactated Ringers 1,000 ml 550 450 350 @ 50 mls/hr IV .Q20H [facility] Rx#:[id number] Sodium Chloride 0.9% 500 10 80 20 ml 500 ml @ 10 mls/hr IV .Q24H [facility] Rx#:[id number] Vancomycin 1,500 mg In 375 Sodium Chloride 0.9% 250 ml @ 125 mls/hr IVPB Q12H [facility] Rx#:[id number] Intake, IV Titration 47.437 45.753 37.825 Amount Insulin Regular 100 unit 47.437 45.753 37.825 In Sodium Chloride 0.9% 100 ml @ Per Protocol IV .Q0M [facility] Rx#:[id number] Tube Feeding 935 880 380 Other 90 120 145 Output: Urine 870 790 395 Stool 700 700 Other: Voiding Method Indwelling Catheter Indwelling Catheter Indwelling Catheter ABP, PAP, CO, CI - Last Documented Arterial Blood Pressure 145/58 - Labs CBC & Chem 7: 11/13/19 04:37 11/13/19 04:37 Labs: Abnormal Lab Results - Last 24 Hours (Table) 11/12/19 11/12/19 11/12/19 Range/Units 04:12 15:51 19:00 WBC (3.8-10.6) k/uL RBC (4.30-5.90) m/uL Hgb (13.0-17.5) gm/dL Hct (39.0-53.0) % MCV (80.0-100.0) fL MCHC (31.0-37.0) g/dL Plt Count (150-450) k/uL Neutrophils # (1.3-7.7) k/uL Lymphocytes # (1.0-4.8) k/uL Potassium (3.5-5.1) mmol/L Chloride (98-107) mmol/L Glucose (74-99) mg/dL POC Glucose (mg/dL) 109 H 197 H (75-99) mg/dL Calcium (8.4-10.2) mg/dL Aldolase 9.5 H (1.2-7.6) U/L 11/12/19 11/12/19 11/13/19 Range/Units 21:09 23:13 00:52 WBC (3.8-10.6) k/uL RBC (4.30-5.90) m/uL Hgb (13.0-17.5) gm/dL Hct (39.0-53.0) % MCV (80.0-100.0) fL MCHC (31.0-37.0) g/dL Plt Count (150-450) k/uL Neutrophils # (1.3-7.7) k/uL Lymphocytes # (1.0-4.8) k/uL Potassium (3.5-5.1) mmol/L Chloride (98-107) mmol/L Glucose (74-99) mg/dL POC Glucose (mg/dL) 154 H 123 H 113 H (75-99) mg/dL Calcium (8.4-10.2) mg/dL Aldolase (1.2-7.6) U/L 11/13/19 11/13/19 11/13/19 Range/Units 03:02 04:37 04:37 WBC 13.8 H (3.8-10.6) k/uL RBC 2.39 L (4.30-5.90) m/uL Hgb 7.1 L (13.0-17.5) gm/dL Hct 24.4 L (39.0-53.0) % MCV 102.1 H (80.0-100.0) fL MCHC 29.1 L (31.0-37.0) g/dL Plt Count 634 H (150-450) k/uL Neutrophils # 12.3 H (1.3-7.7) k/uL Lymphocytes # 0.7 L (1.0-4.8) k/uL Potassium 3.2 L (3.5-5.1) mmol/L Chloride 110 H (98-107) mmol/L Glucose 183 H (74-99) mg/dL POC Glucose (mg/dL) 198 H (75-99) mg/dL Calcium 7.5 L (8.4-10.2) mg/dL Aldolase (1.2-7.6) U/L 11/13/19 11/13/19 11/13/19 Range/Units 04:56 06:54 11:46 WBC (3.8-10.6) k/uL RBC (4.30-5.90) m/uL Hgb (13.0-17.5) gm/dL Hct (39.0-53.0) % MCV (80.0-100.0) fL MCHC (31.0-37.0) g/dL Plt Count (150-450) k/uL Neutrophils # (1.3-7.7) k/uL Lymphocytes # (1.0-4.8) k/uL Potassium (3.5-5.1) mmol/L Chloride (98-107) mmol/L Glucose (74-99) mg/dL POC Glucose (mg/dL) 194 H 115 H 205 H (75-99) mg/dL Calcium (8.4-10.2) mg/dL Aldolase (1.2-7.6) U/L Microbiology - Last 24 Hours (Table) 11/09/19 16:29 Blood Culture - Preliminary Blood No Growth after 72 hours 11/10/19 00:20 Urine Culture - Final Urine,Voided Layne albicans <Bess Quintero - Last Filed: 11/16/19 21:21> Subjective Patient seen and evaluated with nurse practitioner with additional findings. HISTORY OF PRESENT ILLNESS: The patient is a 79 year old male in the intensive care unit over 3+ weeks secondary to sepsis, uncontrolled hyperglycemia, dementia, liver shock and acute kidney injury. He has been more awake. For nutrition, he has nasogastric tube to feeding. REVIEW OF ORGAN SYSTEMS: No chest pain. Altered mental status improving. PHYSICAL EXAM: VITALS: Reviewed CONSTITUTIONAL: Well developed and in no acute distress. EYES: Conjuctivae without sclera icterus. Extraocular movements grossly intact. HEAD, EARS, NOSE, THROAT: Moist buccal mucosa. Head is atraumatic, normocephalic. Nasogastric tube present. NECK: Supple. No thyroidomegaly. RESPIRATORY: Non-labored respirations CARDIOVASCULAR: Palpable 2+ radial pulses. ABDOMEN: Soft. Distention. No peritonitis. MUSCULOSKELETAL: No clubbing, cyanosis. SKIN: Warm and well perfused with good skin turgor. NEUROLOGIC: No focal or lateralizing signs. PSYCH: Alert to voice. CLINCAL LABS: Reviewed. WBC elevated at 15,000 down to 13.8. ASSESSMENT: 1. Sepsis 2. Abdominal aortic aneurysm 3. Uncontrolled diabetes type 2 with hyperglycemia 4. Metabolic encephalopathy 5. Acute respiratory failure 6. Dementia 7. Acute kidney injury 8. Chronic diarrhea 9. Candidiasis 10. Fevers PLAN: 1. Patient is more alert. Recommend switch from nasogastric tube to Dobbhoff tube for feeds. 2. Continue broad-spectrum antibiotics. Objective - Vital Signs Vital signs: Vital Signs Temp 95.6 F L 11/16/19 08:00 Pulse 80 11/16/19 10:30 Resp 34 H 11/16/19 10:30 BP 98/37 11/16/19 08:30 Pulse Ox 94 L 11/15/19 22:00 Intake & Output 11/16/19 11/16/19 11/17/19 06:59 18:59 06:59 Intake Total 4357.860 1404.011 Output Total 430 140 Balance 3927.860 1264.011 Weight 89.6 kg Intake: IV 2979.44 928.48 Cefepime 2 gm In Sodium 100 Chloride 0.9% 100 ml @ 200 mls/hr IVPB Q12H [facility] Rx#:[id number] Dextrose 5% in Water 1, 2400 800 000 ml @ 200 mls/hr IV . Q5H45M [facility] with Sodium Bicarb (1 Meq/ml) 150 ml Rx#:[id number] Pressure Bag 66 24 Sodium Chloride 0.9% 1, 240 80 000 ml @ 30 mls/hr IV . Q24H [facility] Rx#:[id number] Sodium Chloride 0.9% 50 73.44 24.48 ml @ 0.04 UNITS/MIN 6.12 mls/hr IVPB .Q8H20M [facility] with Vasopressin 20 unit Rx#:[id number] metroNIDAZOLE-NS PMX 500 100 mg In Saline 1 100ml.bag @ 100 mls/hr IVPB Q8HR [facility] Rx#:[id number] Intake, IV Titration 758.420 475.531 Amount EPINEPHrine 4 mg In 725.951 250 Dextrose 5% in Water 250 ml @ 0.01 MCG/KG/MIN 3. 131 mls/hr IV .Q24H [facility] Rx#:[id number] Norepinephrine 8 mg In 32.469 225.531 Sodium Chloride 0.9% 250 ml @ 0.05 MCG/KG/MIN 8. 117 mls/hr IV .Q24H [facility] Rx#:[id number] Blood Product 620 Rc As-1 Unit 310 [id number] Output: Gastric Drainage 0 Drainage 375 140 Right Lower Abdomen 115 80 Right Upper Abdomen 260 60 Urine 55 0 Other: Voiding Method Indwelling Catheter Indwelling Catheter ABP, PAP, CO, CI - Last Documented Arterial Blood Pressure 101/50 - Labs CBC & Chem 7: 11/16/19 04:08 11/16/19 04:08 Labs: Abnormal Lab Results - Last 24 Hours (Table) 11/15/19 11/15/19 11/15/19 Range/Units 23:20 23:20 23:20 WBC 28.3 H (3.8-10.6) k/uL RBC 2.64 L (4.30-5.90) m/uL Hgb 7.9 L (13.0-17.5) gm/dL Hct 30.6 L (39.0-53.0) % MCV 116.1 H (80.0-100.0) fL MCHC 25.9 L (31.0-37.0) g/dL RDW 15.9 H (11.5-15.5) % Neutrophils # (Manual) (1.3-7.7) k/uL Metamyelocytes # (Man) (0) k/uL Myelocytes # (Manual) (0) k/uL Macrocytosis Marked A ABG pH (7.35-7.45) ABG pCO2 (35-45) mmHg ABG pO2 (83-108) mmHg ABG HCO3 (21-25) mmol/L ABG Total CO2 (19-24) mmol/L ABG O2 Saturation (94-97) % ABG Lactic Acid (0.5-1.6) mmol/L Sodium 146 H (137-145) mmol/L Potassium 5.5 H (3.5-5.1) mmol/L Chloride 111 H (98-107) mmol/L Carbon Dioxide <5 L* (22-30) mmol/L BUN 21 H (9-20) mg/dL Creatinine 2.66 H (0.66-1.25) mg/dL Glucose 164 H (74-99) mg/dL POC Glucose (mg/dL) 188 H (75-99) mg/dL Plasma Lactic Acid Fredrick (0.7-2.0) mmol/L Calcium 6.3 L* (8.4-10.2) mg/dL Phosphorus (2.5-4.5) mg/dL Magnesium (1.6-2.3) mg/dL AST (17-59) U/L ALT (4-49) U/L Total Protein (6.3-8.2) g/dL Albumin (3.5-5.0) g/dL 11/15/19 11/16/19 11/16/19 Range/Units 23:20 04:08 04:08 WBC 29.1 H (3.8-10.6) k/uL RBC 2.57 L (4.30-5.90) m/uL Hgb 7.4 L (13.0-17.5) gm/dL Hct 29.9 L (39.0-53.0) % MCV 116.3 H (80.0-100.0) fL MCHC 24.6 L (31.0-37.0) g/dL RDW 15.6 H (11.5-15.5) % Neutrophils # (Manual) 23.20 H (1.3-7.7) k/uL Metamyelocytes # (Man) 0.87 H (0) k/uL Myelocytes # (Manual) 1.75 H (0) k/uL Macrocytosis Marked A ABG pH (7.35-7.45) ABG pCO2 (35-45) mmHg ABG pO2 (83-108) mmHg ABG HCO3 (21-25) mmol/L ABG Total CO2 (19-24) mmol/L ABG O2 Saturation (94-97) % ABG Lactic Acid >24.0 H* (0.5-1.6) mmol/L Sodium (137-145) mmol/L Potassium 6.0 H (3.5-5.1) mmol/L Chloride 108 H (98-107) mmol/L Carbon Dioxide <5 L* (22-30) mmol/L BUN 22 H (9-20) mg/dL Creatinine 2.22 H (0.66-1.25) mg/dL Glucose 219 H (74-99) mg/dL POC Glucose (mg/dL) (75-99) mg/dL Plasma Lactic Acid Fredrick (0.7-2.0) mmol/L Calcium 6.2 L* (8.4-10.2) mg/dL Phosphorus 12.0 H* (2.5-4.5) mg/dL Magnesium 2.4 H (1.6-2.3) mg/dL AST 394 H (17-59) U/L ALT 354 H (4-49) U/L Total Protein 3.9 L (6.3-8.2) g/dL Albumin 1.7 L (3.5-5.0) g/dL 11/16/19 11/16/19 11/16/19 Range/Units 04:08 04:15 05:30 WBC (3.8-10.6) k/uL RBC (4.30-5.90) m/uL Hgb (13.0-17.5) gm/dL Hct (39.0-53.0) % MCV (80.0-100.0) fL MCHC (31.0-37.0) g/dL RDW (11.5-15.5) % Neutrophils # (Manual) (1.3-7.7) k/uL Metamyelocytes # (Man) (0) k/uL Myelocytes # (Manual) (0) k/uL Macrocytosis ABG pH <6.80 L* (7.35-7.45) ABG pCO2 24 L (35-45) mmHg ABG pO2 129 H (83-108) mmHg ABG HCO3 4 L* (21-25) mmol/L ABG Total CO2 4 L (19-24) mmol/L ABG O2 Saturation 97.1 H (94-97) % ABG Lactic Acid (0.5-1.6) mmol/L Sodium (137-145) mmol/L Potassium (3.5-5.1) mmol/L Chloride (98-107) mmol/L Carbon Dioxide (22-30) mmol/L BUN (9-20) mg/dL Creatinine (0.66-1.25) mg/dL Glucose (74-99) mg/dL POC Glucose (mg/dL) 243 H (75-99) mg/dL Plasma Lactic Acid Fredrick >24.0 H* (0.7-2.0) mmol/L Calcium (8.4-10.2) mg/dL Phosphorus (2.5-4.5) mg/dL Magnesium (1.6-2.3) mg/dL AST (17-59) U/L ALT (4-49) U/L Total Protein (6.3-8.2) g/dL Albumin (3.5-5.0) g/dL 11/16/19 Range/Units 08:24 WBC (3.8-10.6) k/uL RBC (4.30-5.90) m/uL Hgb (13.0-17.5) gm/dL Hct (39.0-53.0) % MCV (80.0-100.0) fL MCHC (31.0-37.0) g/dL RDW (11.5-15.5) % Neutrophils # (Manual) (1.3-7.7) k/uL Metamyelocytes # (Man) (0) k/uL Myelocytes # (Manual) (0) k/uL Macrocytosis ABG pH (7.35-7.45) ABG pCO2 (35-45) mmHg ABG pO2 (83-108) mmHg ABG HCO3 (21-25) mmol/L ABG Total CO2 (19-24) mmol/L ABG O2 Saturation (94-97) % ABG Lactic Acid (0.5-1.6) mmol/L Sodium (137-145) mmol/L Potassium (3.5-5.1) mmol/L Chloride (98-107) mmol/L Carbon Dioxide (22-30) mmol/L BUN (9-20) mg/dL Creatinine (0.66-1.25) mg/dL Glucose (74-99) mg/dL POC Glucose (mg/dL) 279 H (75-99) mg/dL Plasma Lactic Acid Fredrick (0.7-2.0) mmol/L Calcium (8.4-10.2) mg/dL Phosphorus (2.5-4.5) mg/dL Magnesium (1.6-2.3) mg/dL AST (17-59) U/L ALT (4-49) U/L Total Protein (6.3-8.2) g/dL Albumin (3.5-5.0) g/dL Microbiology - Last 24 Hours (Table) 11/09/19 16:29 Blood Culture - Final Blood No Growth after 144 hours Assessment and Plan (1) Hyponatremia Status: Acute Code(s): E87.1 - HYPO-OSMOLALITY AND HYPONATREMIA SNOMED Code(s): 80411102 (2) Hyperkalemia Status: Acute Code(s): E87.5 - HYPERKALEMIA SNOMED Code(s): 85512381 (3) Sigmoid diverticulitis Status: Acute Code(s): K57.32 - DVTRCLI OF LG INT W/O PERFORATION OR ABSCESS W /O BLEEDING SNOMED Code(s): 908459021 (4) Dynamic ileus Status: Acute Code(s): K56.7 - ILEUS, UNSPECIFIED SNOMED Code(s): 38410841 (5) Hyperosmolar syndrome Status: Acute Code(s): E87.0 - HYPEROSMOLALITY AND HYPERNATREMIA SNOMED Code(s): 44022227 (6) Hyperosmolarity due to secondary diabetes mellitus Status: Acute Code(s): E13.00 - OTH DIAB W HYPROSM W/O NONKET HYPRGLY-HYPROS COMA ([facility]) SNOMED Code(s): 14078394 (7) Altered mental state Status: Acute Code(s): R41.82 - ALTERED MENTAL STATUS, UNSPECIFIED SNOMED Code(s): 257237053 (8) Dementia Status: Acute Code(s): F03.90 - UNSPECIFIED DEMENTIA WITHOUT BEHAVIORAL DISTURBANCE SNOMED Code(s): 78692521 (9) Renal insufficiency syndrome Status: Acute Code(s): N28.9 - DISORDER OF KIDNEY AND URETER, UNSPECIFIED SNOMED Code(s): 208697005 (10) Shock liver Status: Acute Code(s): K72.00 - ACUTE AND SUBACUTE HEPATIC FAILURE WITHOUT COMA SNOMED Code(s): 418221189 (11) Sepsis Status: Acute Code(s): A41.9 - SEPSIS, UNSPECIFIED ORGANISM SNOMED Code(s): 49129604
--- NOTE | 2019-11-13 14:41 | P.PN ---
Subjective Progress Note Date: 11/13/19 11/13/2019: Patient more awake today. Feels very fatigued, tired. He does open his eyes, as per examination below. 11/12/2019: Patient appears much more obtunded, lethargic. Patient's abdomen is more distending. Family is considering hospice. Awaiting another son's approval. 11/11/2019: Patient is slightly more comfortable, awake and alert. Slightly participating more with examination. Still appears tired. Less mumbling. 11/10/2019: Neurological follow-up requested by Dr. Fernandes. Patient was seen by Dr. Jose initially on 10/29/2019, and a follow-up on 11/04/2019. Reviewed her notes. Patient came to the hospital with acute nonketotic hyperosmolar diabetes with severe hyperglycemia. Patient subsequently developed respiratory failure requiring intubation. He also had septic shock, with kidney failure and ischemic hepatitis. He also has atrial fibrillation. Patient was extubated on 11/03/2019. Patient continues to be delirious. Please refer to examination below. Patient's blood test shows WBC 14.2 hemoglobin 8.6, with elevated MCV 105.3. Platelets are 745. Chem-7 included liver functions are normal. Liver functions normal. B12 463 on 11/08/2019, folate 13.2. TFTs normal. Objective - Vital Signs Vital signs: Vital Signs Temp 100.1 F H 11/13/19 12:00 Pulse 90 11/13/19 14:00 Resp 34 H 11/13/19 14:00 BP 106/53 11/13/19 14:00 Pulse Ox 94 L 11/13/19 14:00 Intake & Output 11/12/19 11/13/19 11/13/19 18:59 06:59 18:59 Intake Total 2756.969 9461.753 1137.825 Output Total 1570 1490 495 Balance 162.437 860.753 642.825 Weight 82.6 kg Intake: IV 660 1305 520 Anidulafungin 100 mg In 100 100 Sodium Chloride 0.9% 100 ml @ 84 mls/hr IVPB DAILY [facility] Rx#:[id number] Cefepime 2 gm In Sodium 400 Chloride 0.9% 100 ml @ 200 mls/hr IVPB Q12H [facility] Rx#:[id number] Lactated Ringers 1,000 ml 550 450 400 @ 50 mls/hr IV .Q20H [facility] Rx#:[id number] Sodium Chloride 0.9% 500 10 80 20 ml 500 ml @ 10 mls/hr IV .Q24H [facility] Rx#:[id number] Vancomycin 1,500 mg In 375 Sodium Chloride 0.9% 250 ml @ 125 mls/hr IVPB Q12H [facility] Rx#:[id number] Intake, IV Titration 47.437 45.753 37.825 Amount Insulin Regular 100 unit 47.437 45.753 37.825 In Sodium Chloride 0.9% 100 ml @ Per Protocol IV .Q0M [facility] Rx#:[id number] Tube Feeding 935 880 435 Other 90 120 145 Output: Urine 870 790 495 Stool 700 700 Other: Voiding Method Indwelling Catheter Indwelling Catheter Indwelling Catheter ABP, PAP, CO, CI - Last Documented Arterial Blood Pressure 145/58 - Exam Patient appears very tired, slightly somnolent. He does open his eyes. Speech is low volume but is clear with no aphasia or dysarthria. Face is symmetric. Pupils are round and reacting. Hydraulic Riveter is about 4, biceps 3- on the right, 1 on left, triceps 4+ to 5-bilaterally. Patient can wiggle his toes. Abdomen obviously protuberant, consistent with ileus. - Labs CBC & Chem 7: 11/13/19 04:37 11/13/19 04:37 Labs: Abnormal Lab Results - Last 24 Hours (Table) 11/12/19 11/12/19 11/12/19 Range/Units 04:12 15:51 19:00 WBC (3.8-10.6) k/uL RBC (4.30-5.90) m/uL Hgb (13.0-17.5) gm/dL Hct (39.0-53.0) % MCV (80.0-100.0) fL MCHC (31.0-37.0) g/dL Plt Count (150-450) k/uL Neutrophils # (1.3-7.7) k/uL Lymphocytes # (1.0-4.8) k/uL Potassium (3.5-5.1) mmol/L Chloride (98-107) mmol/L Glucose (74-99) mg/dL POC Glucose (mg/dL) 109 H 197 H (75-99) mg/dL Calcium (8.4-10.2) mg/dL Aldolase 9.5 H (1.2-7.6) U/L 11/12/19 11/12/19 11/13/19 Range/Units 21:09 23:13 00:52 WBC (3.8-10.6) k/uL RBC (4.30-5.90) m/uL Hgb (13.0-17.5) gm/dL Hct (39.0-53.0) % MCV (80.0-100.0) fL MCHC (31.0-37.0) g/dL Plt Count (150-450) k/uL Neutrophils # (1.3-7.7) k/uL Lymphocytes # (1.0-4.8) k/uL Potassium (3.5-5.1) mmol/L Chloride (98-107) mmol/L Glucose (74-99) mg/dL POC Glucose (mg/dL) 154 H 123 H 113 H (75-99) mg/dL Calcium (8.4-10.2) mg/dL Aldolase (1.2-7.6) U/L 11/13/19 11/13/19 11/13/19 Range/Units 03:02 04:37 04:37 WBC 13.8 H (3.8-10.6) k/uL RBC 2.39 L (4.30-5.90) m/uL Hgb 7.1 L (13.0-17.5) gm/dL Hct 24.4 L (39.0-53.0) % MCV 102.1 H (80.0-100.0) fL MCHC 29.1 L (31.0-37.0) g/dL Plt Count 634 H (150-450) k/uL Neutrophils # 12.3 H (1.3-7.7) k/uL Lymphocytes # 0.7 L (1.0-4.8) k/uL Potassium 3.2 L (3.5-5.1) mmol/L Chloride 110 H (98-107) mmol/L Glucose 183 H (74-99) mg/dL POC Glucose (mg/dL) 198 H (75-99) mg/dL Calcium 7.5 L (8.4-10.2) mg/dL Aldolase (1.2-7.6) U/L 11/13/19 11/13/19 11/13/19 Range/Units 04:56 06:54 11:46 WBC (3.8-10.6) k/uL RBC (4.30-5.90) m/uL Hgb (13.0-17.5) gm/dL Hct (39.0-53.0) % MCV (80.0-100.0) fL MCHC (31.0-37.0) g/dL Plt Count (150-450) k/uL Neutrophils # (1.3-7.7) k/uL Lymphocytes # (1.0-4.8) k/uL Potassium (3.5-5.1) mmol/L Chloride (98-107) mmol/L Glucose (74-99) mg/dL POC Glucose (mg/dL) 194 H 115 H 205 H (75-99) mg/dL Calcium (8.4-10.2) mg/dL Aldolase (1.2-7.6) U/L Microbiology - Last 24 Hours (Table) 11/09/19 16:29 Blood Culture - Preliminary Blood No Growth after 72 hours 11/10/19 00:20 Urine Culture - Final Urine,Voided Layne albicans Assessment and Plan Assessment: * Altered mental status, likely related to toxic metabolic encephalopathy. Patient has multiple medical/surgical issues mentioned as below. Patient's mentation much worse. 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 Rule out diabetic neuropathy/plexopathy * Status post ventilatory-dependent respiratory failure * Status post septic shock. * Status post pneumonia * Status post nonketotic hyperosmolar state with poorly controlled diabetes. 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 Plan: * Patient continues to have toxic metabolic encephalopathy. He continues to be running low-grade fever suggestive of occult infection. Patient's family not able to make any decision about long-term care. * Await MRI of the cervical spine to rule out spinal stenosis. * CPK <20 and aldolase 9.5 (1.2-7.6). B12 463, folate 13.2, hemoglobin A1c 14.3 on 10/21/2019, suggestive of poorly controlled diabetes.
[2019-11-13] MEDS ORDERED: POTASSIUM BICARBONATE/CIT AC 20 MEQ TABLET.EFF NG-TUBE SCH (15:00)
[2019-11-13 16:08] LABS: Glucose,Whole Blood 245 mg/dL (75-99)
[2019-11-13 19:39] LABS: Glucose,Whole Blood 166 mg/dL (75-99)
--- NOTE | 2019-11-13 19:58 | P.PN ---
Progress Note - Text Progress Note Date: 11/13/19 Interval history: 79-year-old male with PMH of diabetes mellitus on oral hypoglycemics, con pascual presents the ED for altered mentation. Apparently, patient was visited by his nurse who noted an extremely high blood glucose which prompted his hospital visit. Patient is altered and he is unable to provide any meaningful history. Majority of documentation was obtained from chart review and discussion with his son. Apparently, patient has been confused and disoriented which is progressive ly been worsening over the past 2 weeks. His son reports that the patient fell a week ago and did not seek medical attention. Patient lives with his who is suffering from advanced Alzheimer's dementia and is currently in hospice. According to the son, patient drinks 4 L of soda on a daily basis. Son reports that patient is noncompliant with her diabetic diet. In the ED, vital signs showed a T low of 97.5 Fahrenheit, pulse of 102, tachypnea with respiratory rate of 28, BP of 85/49 and 89% on room air. CBC showed leukocytosis of 11 and MCV of 124.1. ABG showed pH of 7, pCO2 19, bica rbonate of 8. CMP showed sodium of 116, potassium of 5.7, chloride of 74, bicarbonate of 8, BUN 33, creatinine 2.18, glucose greater than 1875. Troponin was 0.881 with EKG showing sinus tachycardia. Urinalysis shows 4+ glucose and trace blood. Acetone was negative. CT brain was negative for hemorrhage but showed slightly hyperdense left MCA compared to right. Chest x-ray showed possible right lower lobe infiltrate. Patient is admitted to ICU for sepsis, troponin elevation and diabetic ketoacidosis. Intubated. Patient developed ischemic hepatitis. Sepsis. Also developed bowel obstruction-that corrected on its own. Seen by neurology. Patient's felt to have anoxic brain injury. Patient was extubated on November 01. Patient regained a fever. IV antifungal was added subsequently cefepime and vancomycin started Today-ICU. Continues to spike fevers. Loose stools. Antibiotics to continue. Does answer some questions today. Tired. Review of systems: Attempted for constitutional, cardiovascular, GI, pulmonary. relevant finding as above Active Medications Acetaminophen (Tylenol Tab) 650 mg PO Q6HR PRN PRN Reason: Fever and/ or Pain Last Admin: 11/13/19 11:55 Dose: 650 mg Documented by: Amiodarone HCl (Cordarone) 200 mg PO BID [facility] Last Admin: 11/13/19 08:32 Dose: 200 mg Documented by: Aspirin (Aspirin) 81 mg PO DAILY [facility] Last Admin: 11/13/19 08:32 Dose: 81 mg Documented by: Famotidine (Pepcid) 20 mg PO BID [facility] Last Admin: 11/13/19 08:32 Dose: 20 mg Documented by: Heparin Sodium (Porcine) (Heparin) 5,000 unit SQ Q8HR [facility] Last Admin: 11/13/19 15:56 Dose: 5,000 unit Documented by: Hydromorphone HCl (Dilaudid) 0.5 mg IVP Q2HR PRN PRN Reason: Pain Last Admin: 11/10/19 03:10 Dose: 0.5 mg Documented by: Lactated Ringer's (Lactated Ringers) 1,000 mls @ 50 mls/hr IV .Q20H [facility] Last Admin: 11/12/19 23:34 Dose: 50 mls/hr Documented by: Anidulafungin 100 mg/ Sodium (Chloride) 100 mls @ 84 mls/hr IVPB DAILY [facility] Last Admin: 11/13/19 08:33 Dose: 84 mls/hr Documented by: Cefepime HCl 2 gm/ Sodium (Chloride) 100 mls @ 200 mls/hr IVPB Q12H [facility] Last Admin: 11/13/19 16:45 Dose: 200 mls/hr Documented by: Vancomycin HCl 1,250 mg/ (Sodium Chloride) 250 mls @ 125 mls/hr IVPB Q12H [facility] Insulin Aspart (Novolog) 0 unit SQ Q4H [facility]; Protocol Last Admin: 11/13/19 16:08 Dose: 3 unit Documented by: Insulin Detemir (Levemir) 12 unit SQ DAILY@0700 [facility] Last Admin: 11/13/19 11:09 Dose: 12 unit Documented by: Lisinopril (Zestril) 2.5 mg PO DAILY [facility] Last Admin: 11/13/19 08:32 Dose: 2.5 mg Documented by: Metoprolol Tartrate (Lopressor) 25 mg PO BID [facility] Last Admin: 11/13/19 08:33 Dose: 25 mg Documented by: Miscellaneous Information (Pneumonia Protocol Utilized) 1 each PO ONCE PRN PRN Reason: Per Protocol Miscellaneous Information (Magnesium Per Protocol) 1 each MISCELLANE DAILY PRN; Protocol PRN Reason: Per Protocol Miscellaneous Information (Phosphorus Per Protocol) 1 each MISCELLANE DAILY PRN; Protocol PRN Reason: Per Protocol Miscellaneous Information (Potassium Per Protocol) 1 each MISCELLANE DAILY PRN; Protocol PRN Reason: Per Protocol Naloxone HCl (Narcan) 0.2 mg IV Q2M PRN PRN Reason: Opioid Reversal Nystatin (Mycostatin Oral Susp) 500,000 unit PO QID [facility] Last Admin: 11/13/19 18:14 Dose: 500,000 unit Documented by: On examination: VITAL SIGNS: Afebrile, 93, 37, 140-58, and 90% on 5 L GENERAL APPEARANCE: laying in bed, tired but arousable does answer some questions HEENT: Normal external appearance of nose and ear. , NG tube. Oral cavity dry EYES: Pupils equal. Conjunctiva normal. NECK: JVD unable to assess. Mass not palpable. RESPIRATORY: Respiratory effort increased. Lungs -decreased breath sounds CARDIOVASCULAR: First and second sounds normal. Some edema. ABDOMEN: Soft. Liver and spleen not palpable. Some tenderness, no guarding or rigidity. No mass palpable. PSYCHIATRY: Able to answer some questions NEUROLOGICAL: Follows commands. INVESTIGATIONS, reviewed in the clinical context: White count 13.8 hemoglobin 7.1 potassium 3.2 creatinine 0.77 Previous testing: White count 11 hemoglobin 13.7 platelets 383 Sodium 116, bicarb 8, bun 33, creatinine 2.18 glucose 1875 troponin I 0.88 1 COVID-19 PCR-not detected computed tomography scan of the brain without contrast-no acute degenerative changes Ultrasound kidney-limited exam 2-D echocardiogram-EF 30-35%, anteroseptal apical hypokinesia AST 3453, ALT 1264, computed tomography scan of the abdomen and pelvis without contrast-dilated multiple loops of small bowel some free fluid in the paracolic gutter bilateral lower lobe pulmonary infiltrates, fusiform 4.4 cm lower abdominal aortic aneurysm with aortoiliac endograft multiple diverticula of the sigmoid colon. Mild wall thickening of the ascending colon. Blood cultures from October 20-negative Abdominal x-ray-October 25--contrast has passed through to thecolon EEG suggestive of encephalopathy, computed tomography scan of the brain-on October 28-chronic changes Sputum culture from November 06, stool culture from November 04, urine culture from November 03 and sputum culture from October 27 all growing [place] albicans Computed tomography scan abdomen and pelvis-November 08-bilateral lower lobe airspace consolidation slightly increased, multiple peripheral hepatic irregular hypodensity areas, splenic hypodensity unchanged, distended small bowel Assessment: -acute nonketotic hyperosmolar diabetes with severe hyperglycemia, POA -Acute small bowel obstruction, and distal jejunal clinically improved, NG tube suction discontinued.- tube feeding started -Acute hypoxic respiratory failure requiring mechanical ventilator extubated on November 01 -Acute metabolic encephalopathy-improving though slowly -Alzheimer's dementia -Pseudohyponatremia from severe hyperglycemia -4.4 cm distal abdominal aortic aneurysm with the endoluminal stent graft -Peripheral arterial disease -Acute shock liver secondary to hypotensive-corrected -Chronic congestive heart failure from systolic dysfunction EF 30-35% -Sepsis with septic shock, possible community acquired pneumonia -Non-ST elevation [place] likely type II from demand ischemia, POA -Acute kidney injury likely ATN and prerenal- corrected -Possibly chronic kidney disease -essential hypertension -Pneumonia suspect gram-negative organism -New onset atrial fibrillation. -Anoxic brain slow improvement -Stage II pressure ulcer on the coccyx -Severe diarrhea-negative for C. diff. possibly from 2 feeding improved -Bilateral critical care myopathy -Febrile possible source abdominal. Patient not a candidate for any surgery. Started on antifungal - November 08. Cefepime and vancomycin was added. Slow to respond. Plan: Continue with antifungal IV, cefepime, vancomycin. Supportive care to continue. Prognosis remains guarded.
[2019-11-13] MEDS: LACTATED RINGERS 1,000 ML IV SCH (22:50)
--- NOTE | 2019-11-13 23:00 | PN ---
PROGRESS NOTE DATE OF SERVICE: 11/13/2019 REASON FOR FOLLOWUP: Pneumonia and possible abdominal source of infection. INTERVAL HISTORY: The patient is running a fever, though overall fever pattern has improved with T-max of 100.6 today. The patient is hemodynamically stable. The patient remains lethargic, unable to provide any history. He still has the NG and still continues to have loose stools. PHYSICAL EXAMINATION: Blood pressure 123/59, pulse 86, temperature 99.6. He is 98% on 4 L nasal cannula. General description is an elderly male lying in bed in no distress. RESPIRATORY SYSTEM: Unlabored breathing. Clear to auscultation anteriorly. HEART: S1, S2. Regular rate and rhythm. ABDOMEN: Soft. Remains distended and tender to touch. LABS: Hemoglobin 7.9, white count 13.8 with a BUN of 19, creatinine 0.77. Culture so far negative. DIAGNOSTIC IMPRESSION AND PLAN: Patient with a fever which is likely multifactorial in this patient who did have a component of pneumonia plus/minus component of abdominal source. The patient's NG has been changed to the other nostril. Fever pattern seems to have slightly improved. The patient is covered with cefepime and vancomycin; to continue. Vancomycin dose needs to be cut back to keep the trough around 15 and monitor clinical course closely. Continue with supportive care. MMODL / IJN: [id number] /
[2019-11-13 23:56] LABS: Glucose,Whole Blood 174 mg/dL (75-99)
[2019-11-14] MEDS ORDERED: SODIUM CHLORIDE 0.9% 1,000 ML IV ONE (01:06)
[2019-11-14] MEDS ORDERED: LACTATED RINGERS 1,000 ML IV ONE ×3 (01:06→23:00)
[2019-11-14 04:16] LABS: Glucose,Whole Blood 203 mg/dL (75-99)
[2019-11-14] MEDS: CEFEPIME 2 GM in SODIUM CHLORIDE 0.9% 100 ML IVPB SCH ×2 (04:45→16:49)
[2019-11-14] MEDS: INSULIN ASPART (NovoLOG) 100 UNIT/ML VIAL SQ SCH ×6 (04:45→20:23)
[2019-11-14 05:49] LABS: Basophils % (A) 0 %; Eosinophils # (A) 0.2 k/uL (0-0.7); Eosinophils % (A) 1 %; HCT 26.9 % (39.0-53.0); Hypochromasia Marked; Lymphocytes # (A) 0.9 k/uL (1.0-4.8); Lymphocytes % (A) 7 %; MCH 30.7 pg (25.0-35.0); MCHC 29.7 g/dL (31.0-37.0); MCV 103.4 fL (80.0-100.0); Macrocytosis Slight; Mean Platelet Volume 7.6; Monocytes # (A) 0.8 k/uL (0-1.0); Monocytes % (A) 6 %; Neutrophils # (A) 11.5 k/uL (1.3-7.7); Neutrophils % (A) 85 %; Platelet Count 658 k/uL (150-450); Poikilocytosis Slight; RDW 14.5 % (11.5-15.5); WBC 13.6 k/uL (3.8-10.6)
[2019-11-14] MEDS ORDERED: VANCOMYCIN 1,250 MG in SODIUM CHLORIDE 0.9% 250 ML IVPB SCH (06:00)
[2019-11-14 06:05] LABS: ALT 11 U/L (4-49); AST 19 U/L (17-59); African American GFR (CKD) >90 (>60 ml/min/1.73 sqM); Albumin 2.2 g/dL (3.5-5.0); Alkaline Phosphatase 133 U/L (38-126); Anion Gap 8 mmol/L; Blood Urea Nitrogen 23 mg/dL (9-20); Calcium 7.7 mg/dL (8.4-10.2); Carbon Dioxide 24 mmol/L (22-30); Chloride 111 mmol/L (98-107); Glucose 206 mg/dL (74-99); Non-African American GFR(CKD) 85 (>60 ml/min/1.73 sqM); Potassium 4.2 mmol/L (3.5-5.1); Sodium 143 mmol/L (137-145); Total Bilirubin 0.2 mg/dL (0.2-1.3); Total Protein 5.9 g/dL (6.3-8.2)
[2019-11-14] MEDS: INSULIN DETEMIR (LEVEMIR) 100 UNIT/ML SYR SQ SCH (06:12)
--- NOTE | 2019-11-14 06:37 | XR ---
EXAMINATION TYPE: XR chest 1V portable DATE OF EXAM: 11/14/2019 CLINICAL HISTORY: Difficulty breathing progress study. TECHNIQUE: Single AP portable semiupright view of the chest is obtained. COMPARISON: Chest x-ray from 3 days earlier and older studies. FINDINGS: Stable orogastric tube . Persistent low lung volumes and elevated right hemidiaphragm with bibasilar opacities along with central vascular congestion. Developing right hilar opacity and centr al vascular congestion is noted. Cardiac silhouette size stable and within normal limits with atheros clerotic and ectatic thoracic aorta. Multilevel spurring the spine redemonstrated. Partial visualizat ion of distal abdominal aortic stent graft. IMPRESSION: Chronic parenchymal change and elevated right hemidiaphragm with persistent bibasilar acu te infiltrate and/or atelectasis redemonstrated fairly stable. Developing central right hilar acute i nfiltrate and mild central vascular congestion noted. Correlate clinically. Suspect fluid overload st ate and/or less likely developing ARDS.
[2019-11-14] MEDS ORDERED: INSULIN DETEMIR (LEVEMIR) 100 UNIT/ML SYR SQ SCH ×2 (07:00→08:45)
[2019-11-14] MEDS ORDERED: FUROSEMIDE 10 MG/ML 4 ML VIAL IV STA (08:25)
[2019-11-14 08:33] LABS: Glucose,Whole Blood 200 mg/dL (75-99)
[2019-11-14] MEDS: LISINOPRIL 2.5 MG TAB PO SCH (08:38)
[2019-11-14] MEDS: HEPARIN SODIUM,PORCINE 5,000 UNIT/ML 1 ML VIAL SQ SCH ×3 (08:38→16:02)
[2019-11-14] MEDS: ANIDULAFUNGIN 100 MG in SODIUM CHLORIDE 0.9% 100 ML IVPB SCH (08:38)
[2019-11-14] MEDS: METOPROLOL TARTRATE 25 MG TAB PO SCH (08:39)
[2019-11-14] MEDS: AMIODARONE 200 MG TAB PO SCH (08:39)
[2019-11-14] MEDS: ASPIRIN 81 MG PO SCH (08:39)
[2019-11-14] MEDS: FAMOTIDINE 20 MG TAB PO SCH (08:39)
[2019-11-14] MEDS ORDERED: INSULIN DETEMIR (LEVEMIR) 100 UNIT/ML SYR SQ ONE (08:45)
[2019-11-14] MEDS: NYSTATIN 100,000 UNIT/ML SUSP 500,000 UNIT/5 ML CUP PO SCH ×3 (08:49→17:27)
[2019-11-14 11:34] LABS: Glucose,Whole Blood 171 mg/dL (75-99)
--- NOTE | 2019-11-14 11:43 | P.PN ---
Subjective Progress Note Date: 11/14/19 80-year-old male patient known history of dementia, diabetes hypertension osteoarthritis in addition to abdominal aortic aneurysm, presented to the ED with altered mentation and severe dehydration. The patient's was noted to have elevated blood sugars at home which prompted this hospital visit. He was unable to provide any history at time of admission. He was confused and disoriented and his condition was progressively getting worse over this past few weeks. He apparently had generalized weakness, falls, and he was not seeking any medical attention. He has Alzheimer's dementia. His has Alzheimer's dementia also. Apparently his oral intake has been minimal and the patient was drinking only 4 L of soda on a daily basis. He has been noncompliant his diabetic medications also. A blood sugar of more than 1800. CAT scan of the brain shows no evidence of any acute hemorrhage. There is some degenerative changes and nonspecific white matter changes consistent with remote ischemia. This 79-year-old male patient with a prolonged ICU stay due a multitude of complications that it initially started off with severe dehydration and hyperglycemia and hyperosmolar nonketotic state with subsequent development of an abdominal sepsis secondary to bowel obstruction/ileus, acute hypoxic respiratory failure, acute kidney injury, above and beyond all of his comorbidities that were mentioned in the medical record. Note that during the course of the treatment, the patient required intubation mechanical ventilation and ultimately his condition improved and the patient was weaned off the mechanical ventilator and was extubated. The patient remains in intensive care unit. He is on 2 L of oxygen by nasal cannula. He is receiving lactated Ringer at the rate of 50 mL an hour. He is receiving enteral feeding for nutritional support in the form of Jevity 1.5 with a goal being at 55 mL an hour. He continues to have episodes of temperature and it's catheter tip has been cultured after the triple-lumen catheter was removed and showed no growth. Repeat blood cultures also showed no growth. He does have Layne albicans in his stool and urine and sputum along with evidence of oropharyngeal candidiasis and the patient was started on Eraxis as an antifungal agent. He is also on IV cefepime as a broad-spectrum antibiotic coverage. Part of his fever workup, the patient underwent a CAT scan of the abdomen and pelvis and it showed bilateral pleural effusions and bilateral lower lobe airspace consolidation and atelectasis. There was no evidence of any pericardial effusion. There were multiple hypodense irregular areas in the periphery of the liver measuring up to 5 cm in size. This could be potentially multiple infarcts. There is a similar 5 x 3 hypodensity in the posterior spleen. The bile duct was within normal limits. No evidence of any pancreatic mass. Multiple small calcified gallstones. There was multiple fluid filled distended small loops of small elvin wel. The oral contrast extended into the ileum. Small amount of contrast extended to the cecum at the level of the ileocecal valve. No transition point was seen. There was some mild wall thickening of the sigmoid colon. 4.3 cm aneurysm of the lower abdominal aorta and aortoiliac stents were also noted again. There is abdominal ascites. No evidence of any free air. Lumbar spine was intact and there is no evidence of any compression fractures. The chest x- ray was done showed stable findings along with some lower lung volumes and pulmonary vascular congestion. The patient's stool for C. diff that was collected on 11/05/2019 was also negative. The patient has normal liver function tests. Alkaline phosphatase is 171. The white cell count is not elevated. NG tube is in place and the patient is being trialed on alternative formula as the patient's been having ongoing diarrhea. Testing of the C. diff on 2 separate occasions were negative and the patient's stool output had improv ed following his tube feeds being held. He is currently receiving enteral feeding in the form of Jevity at the rate of 45 mL an hour with a goal of 55. His T-max was 100.4. He is on insulin drip at 2 units an hour. He is on lactated Ringer at 50 mL's an hour. He did normal sinus rhythm. Mental status is impaired and the patient is awake and alert 1. The patient continues to be quite weak and debilitated. The patient's abdomen is slightly distended and he has some minimal direct tenderness. CAT scan of the abdomen was again noted. On today's evaluation of 11/11/2019, I'm seeing the patient for a follow-up. The patient is confused. He is talking and sometimes he makes appropriate comments. Yet for the most part he is quite lethargic and he sleeps. His abdomen remains tender. Upon palpating his abdomen, he does direct tenderness. No rebound tenderness. No guarding. Abdomen is slightly distended. The patient has an NG tube in place. He is receiving enteral feeding for nutritional support. He is on Jevity at the rate of 55 mL an hour. He failed his swallow evaluation. He has produced approximately a 50 mL of diarrhea over the past 24 hours. He has a low-grade fever. His white cell count is slightly elevated and I am obviously again concerned about intra-abdominal pathology contributing to this diarrhea, abdominal distention and pain and leukocytosis. He is on lactated Ringer at the rate of 50 mL an hour. He is receiving insulin drip at 4.5 units an hour for blood sugar control. Renal function is stable. His 40s about 2 by nasal cannula with a pulse ox of 95%. He remains on IV cefepime per IDs recommendations. No other significant events otherwise for now. On 11/12/2019, the patient continues to do poorly. Abdomen is tender and distended. There is still liquidy bowel movements collecting and a fecal management system. He is moaning. His altered in terms of his mentation and he is also febrile. he is on insulin drip at 5.5 units an hour for blood sugar control. He is also receiving normal saline at rate of 50 mL an hour. He is also receiving Jevity at the rate of 55 mL an hour. The son came to visit him yesterday. He was updated on his condition. The family is contemplating hospice and physician will be done hopefully within next 24 hours. Unfortunately nothing much can be offered to this patient. He is covered with broad-spectrum antibiotics. Is still on a combination of Eraxis, cefepime and vancomycin. He is on Dilaudid for pain control. On 11/13/2019, unlike yesterday, the patient is awake and communicating. He follows simple commands. His moving extremities mainly Doppler, and lower extremity is quite weak. He is having low-grade fever. Abdomen is distended and tender. His having liquidy stool while being on Jevity. No plans for any surgical intervention as the patient carries a very poor prognosis according to the surgeon's opinion. Remains on a combination of cefepime Eraxis and vancomycin. He is also on Dilaudid for pain control. He'll be taken off the insulin drip and switch to Levemir insulin for blood sugar control. Family is leaning towards hospice although final decision has not been done. No focal neurological deficit. He is more alert compared to yesterday on today's evalua tion. On 11/14/2019, the patient is awake and communicating. He is essentially the same as yesterday. Abdomen is distended. NG tube is in place. As stated earlier, surgery has no plans to do any further exploration or surgical intervention regarding his abdomen. He is weak. He is moving his arms. Legs are weaker. No active issues with pain control. He is on Levemir insulin. Blood sugars under tighter control and the patient remains on a combination of cefepime and Eraxis and vancomycin.. The patient is having episodic low-grade fever. The white cell count is at 13.6. Hemoglobin is at 8. Renal function is stable. He is stooling. He has a liquidy stool. His enteral feeding has been switched to vital 1.2 and the patient is also receiving lactated Ringer at the rate of 50 mL an hour. He is noted to be having some increased edema for that reason the patient will be given a dose of Lasix. Objective - Vital Signs Vital signs: Vital Signs Temp 100.6 F H 11/14/19 08:00 Pulse 103 H 11/14/19 11:00 Resp 35 H 11/14/19 11:00 BP 121/67 11/14/19 11:00 Pulse Ox 94 L 11/14/19 11:00 Intake & Output 11/13/19 11/14/19 11/14/19 18:59 06:59 18:59 Intake Total 0766.156 4119 775 Output Total 9382 077 4577 Balance 317.825 790 -950 Weight 82.6 kg 83.9 kg Intake: IV 1070 950 350 Anidulafungin 100 mg In 100 100 Sodium Chloride 0.9% 100 ml @ 84 mls/hr IVPB DAILY [facility] Rx#:[id number] Cefepime 2 gm In Sodium 100 100 Chloride 0.9% 100 ml @ 200 mls/hr IVPB Q12H [facility] Rx#:[id number] Lactated Ringers 1,000 ml 600 600 250 @ 50 mls/hr IV .Q20H [facility] Rx#:[id number] Sodium Chloride 0.9% 500 20 ml 500 ml @ 10 mls/hr IV .Q24H [facility] Rx#:[id number] Vancomycin 1,500 mg In 250 250 Sodium Chloride 0.9% 250 ml @ 125 mls/hr IVPB Q12H [facility] Rx#:[id number] Intake, IV Titration 37.825 Amount Insulin Regular 100 unit 37.825 In Sodium Chloride 0.9% 100 ml @ Per Protocol IV .Q0M [facility] Rx#:[id number] Tube Feeding 655 665 345 Other 215 160 80 Output: Gastric Drainage 600 Urine 063 974 8799 Stool 1000 Other: Voiding Method Indwelling Catheter Indwelling Catheter Indwelling Catheter ABP, PAP, CO, CI - Last Documented Arterial Blood Pressure 145/58 - Exam Gen. appearance the patient is Calm and comfortable and he is awake and alert and following commands. NG tube is in place. The patient is receiving enteral feeding for nutritional support in the form of vital 1.2. Head exam was generally normal. There was no scleral icterus or corneal arcus. Mucous membranes were dry, the patient has an NG tube in place Neck was supple and without jugular venous distension, thyromegaly, or carotid bruits. Carotids were easily palpable bilaterally. There was no adenopathy. The patient has a left subclavian triple-lumen catheter in place Lungs were clear to auscultation and percussion, and with normal diaphragmatic excursion. No wheezes or rales were noted. Cardiac exam revealed the PMI to be normally situated and sized. The rhythm was regular and no extrasystoles were noted during several minutes of auscultation. The first and second heart sounds were normal and physiologic splitting of the second heart sound was noted. There were no murmurs, rubs, clicks, or gallops. Abdominal exam revealed normal bowel sounds. The patient has hypoactive bowel sounds. The abdomen is slightly distended. There is some mild direct tenderness. Bowel sounds are hypoactive at the present. No organomegaly. No rebound tenderness. No guarding. Extremities reveal chronic ulceration lower extremities bilaterally with diminished pulses. No cyanosis or clubbing. There is no open wounds or cellulitis in the lower extremities. There is edema in all 4 extremities for no w. Neurologic the patient is awake and alert and following commands and moving extremities although there is global weakness. No focal neurological deficit this point in time. No Babinski. No clonus. Motor weakness is more in lower extremities bilaterally. - Labs CBC & Chem 7: 11/14/19 05:23 11/14/19 05:23 Labs: Abnormal Lab Results - Last 24 Hours (Table) 11/06/19 11/12/19 11/13/19 Range/Units 17:03 04:12 11:46 WBC (3.8-10.6) k/uL RBC (4.30-5.90) m/uL Hgb (13.0-17.5) gm/dL Hct (39.0-53.0) % MCV (80.0-100.0) fL MCHC (31.0-37.0) g/dL Plt Count (150-450) k/uL Neutrophils # (1.3-7.7) k/uL Lymphocytes # (1.0-4.8) k/uL Chloride (98-107) mmol/L BUN (9-20) mg/dL Glucose (74-99) mg/dL POC Glucose (mg/dL) 205 H (75-99) mg/dL Calcium (8.4-10.2) mg/dL Alkaline Phosphatase (38-126) U/L Total Protein (6.3-8.2) g/dL Albumin (3.5-5.0) g/dL Aldolase 9.5 H (1.2-7.6) U/L Stool Calprotectin 410.4 H (<50) mcg/g 11/13/19 11/13/19 11/13/19 Range/Units 16:06 19:38 23:55 WBC (3.8-10.6) k/uL RBC (4.30-5.90) m/uL Hgb (13.0-17.5) gm/dL Hct (39.0-53.0) % MCV (80.0-100.0) fL MCHC (31.0-37.0) g/dL Plt Count (150-450) k/uL Neutrophils # (1.3-7.7) k/uL Lymphocytes # (1.0-4.8) k/uL Chloride (98-107) mmol/L BUN (9-20) mg/dL Glucose (74-99) mg/dL POC Glucose (mg/dL) 245 H 166 H 174 H (75-99) mg/dL Calcium (8.4-10.2) mg/dL Alkaline Phosphatase (38-126) U/L Total Protein (6.3-8.2) g/dL Albumin (3.5-5.0) g/dL Aldolase (1.2-7.6) U/L Stool Calprotectin (<50) mcg/g 11/14/19 11/14/19 11/14/19 Range/Units 04:15 05:23 05:23 WBC 13.6 H (3.8-10.6) k/uL RBC 2.60 L (4.30-5.90) m/uL Hgb 8.0 L (13.0-17.5) gm/dL Hct 26.9 L (39.0-53.0) % MCV 103.4 H (80.0-100.0) fL MCHC 29.7 L (31.0-37.0) g/dL Plt Count 658 H (150-450) k/uL Neutrophils # 11.5 H (1.3-7.7) k/uL Lymphocytes # 0.9 L (1.0-4.8) k/uL Chloride 111 H (98-107) mmol/L BUN 23 H (9-20) mg/dL Glucose 206 H (74-99) mg/dL POC Glucose (mg/dL) 203 H (75-99) mg/dL Calcium 7.7 L (8.4-10.2) mg/dL Alkaline Phosphatase 133 H (38-126) U/L Total Protein 5.9 L (6.3-8.2) g/dL Albumin 2.2 L (3.5-5.0) g/dL Aldolase (1.2-7.6) U/L Stool Calprotectin (<50) mcg/g 11/14/19 11/14/19 Range/Units 08:31 11:31 WBC (3.8-10.6) k/uL RBC (4.30-5.90) m/uL Hgb (13.0-17.5) gm/dL Hct (39.0-53.0) % MCV (80.0-100.0) fL MCHC (31.0-37.0) g/dL Plt Count (150-450) k/uL Neutrophils # (1.3-7.7) k/uL Lymphocytes # (1.0-4.8) k/uL Chloride (98-107) mmol/L BUN (9-20) mg/dL Glucose (74-99) mg/dL POC Glucose (mg/dL) 200 H 171 H (75-99) mg/dL Calcium (8.4-10.2) mg/dL Alkaline Phosphatase (38-126) U/L Total Protein (6.3-8.2) g/dL Albumin (3.5-5.0) g/dL Aldolase (1.2-7.6) U/L Stool Calprotectin (<50) mcg/g Microbiology - Last 24 Hours (Table) 11/09/19 16:29 Blood Culture - Preliminary Blood No Growth after 96 hours Assessment and Plan Plan: 1 shock with profound hypotension recovered, likely secondary to an abdominal source of the sepsis. The patient is still having diarrhea. The patient had a follow-up CAT scan of the abdomen that showed distended small bowel without any transition point. Consider possibility of a ileus still in general surgeries on the case. NG tube is in place. The patient is receiving enteral feeding. The patient is having liquidy stool with a negative stool for C. diff. nevertheless, continued to see some abdominal distention and tenderness in addition to ongoing diarrhea. The CAT scan of the abdomen also showed dilatation of the small bowel and I think there is still some small bowel ileus or pathology contributing to his diarrhea and abdominal distention and pain. Unfortunately, no significant changes abdominal examination. The patient is still having liquidy stool. He is tolerating enteral feeding by vital 1.2. But, his abdomen continues to be tender and distended. 2 acute abdominal distention/pain with further workup indicating small bowel ileus/obstruction which ultimately recovered and the patient has an NG for enteral feeding and nutritional support, see above dictation regarding his abdominal condition. 3 acute hyperosmolar nonketotic diabetic syndrome with severe hyperglycemia and intravascular volume depletion/dehydration, recovered 4 acute kidney injury , Recovered 5 acut hypoxic respiratory failure, currently intubated on a mechanical ventilator, Recovered, currently on 5 L of oxygen by nasal cannula 6 altered mental status when underlying component of dementia, and the mental status continues to fluctuate 7 diabetes mellitus, maintained oral hypoglycemics with poor compliance, currently on insulin drip 8 alzheimer's dementia 9 pseudohyponatremia, related to severe hyperglycemia, recovered 10 History of hypertension 11 diarrhea likely secondary to enteral feeding and the C. diff evaluation on 2 separate occasions were negative 12 4.6 cm distal abdominal aortic aneurysm extending to the aortic bifurcation and involving the common iliac arteries with indwelling BILATERAL ILIAC ENDOLUMINAL STENT GRAFT, Unchanged in the most recent CAT scan of the abdomen and pelvis 13 peripheral vascular disease 14 troponin leak, consider Ischemia type 2, the troponin peaked at 2.25 15 acute shock liver secondary to hypotension , recovered 16 CHF with ischemic cardiomyopathy and ejection fraction of 30-35% in addition to old CO involving the anteroseptal and apical segments of the heart and left ventricle consistent with EKG findings. 17 severe lactic acidosis secondary to to above, recovered 18 oropharyngeal candidiasis in addition to Layne and the stool in the urine currently on Eraxis 19 episodic fever under investigation currently on a combination of iV cefepime and Eraxis 20 leukocytosis 21 low-grade fever Plan Keep the NG tube in place, may consider Dobbhoff catheter insertion if this turns out to be a prolonged condition Continue enteral feeding for nutritional support Continue same antibiotic coverage The patient is still having low-grade fever. ID is on the case with continue same antibiotic coverage. Surgery to reevaluate the abdomen Discontinued today insulin drip and put the patient on Lantus insulin 126 units along with his vascular coverage Prognosis poor as mentioned earlier We'll continue to follow
--- NOTE | 2019-11-14 12:04 | P.PN ---
<Jodie Garcia Melvin - Last Filed: 11/14/19 12:04> Subjective Progress Note Date: 11/14/19 CHIEF COMPLAINT: Sepsis HISTORY OF PRESENT ILLNESS: Patient examined in the intensive care. Tube feedings are infusing. Patient with FMS with liquid stool. He denies abdominal pain. PHYSICAL EXAM: VITAL SIGNS: Reviewed GENERAL: Well-developed in no acute distress. HEENT: No sclera icterus. Extraocular movements grossly intact. Moist buccal mucosa. Head is atraumatic, normocephalic. No nasal drainage. NECK: Supple without lymphadenopathy. CHEST: Non-labored respirations and equal bilateral excursions. CARDIOVASCULAR: Regular rate with regular rhythm. Palpable 2+ radial pulses. ABDOMEN: Soft. Distended. Nontender. NG tube noted. MUSCULOSKELETAL: No clubbing or cyanosis. NEUROLOGIC: Drowsy. Awakens easily to verbal stimuli. SKIN: Well perfused. Good skin turgor. ASSESSMENT: 1. Abnormal computed tomography scan with small bowel distention, resolving PLAN: Dr. Quintero recommends discontinuing NG tube and placing Dobbhoff for feedings May continue tube feedings as tolerated Nurse practitioner note has been reviewed by physician. Signing provider agrees with the documented findings, assessment, and plan of care. Objective - Vital Signs Vital signs: Vital Signs Temp 100.6 F H 11/14/19 08:00 Pulse 103 H 11/14/19 10:00 Resp 39 H 11/14/19 10:00 BP 128/68 11/14/19 10:00 Pulse Ox 94 L 11/14/19 10:00 Intake & Output 11/13/19 11/14/19 11/14/19 18:59 06:59 18:59 Intake Total 7326.279 9350 655 Output Total 1660 985 850 Balance 317.825 790 -195 Weight 82.6 kg 83.9 kg Intake: IV 1070 950 300 Anidulafungin 100 mg In 100 100 Sodium Chloride 0.9% 100 ml @ 84 mls/hr IVPB DAILY [facility] Rx#:[id number] Cefepime 2 gm In Sodium 100 100 Chloride 0.9% 100 ml @ 200 mls/hr IVPB Q12H [facility] Rx#:[id number] Lactated Ringers 1,000 ml 600 600 200 @ 50 mls/hr IV .Q20H [facility] Rx#:[id number] Sodium Chloride 0.9% 500 20 ml 500 ml @ 10 mls/hr IV .Q24H [facility] Rx#:[id number] Vancomycin 1,500 mg In 250 250 Sodium Chloride 0.9% 250 ml @ 125 mls/hr IVPB Q12H [facility] Rx#:[id number] Intake, IV Titration 37.825 Amount Insulin Regular 100 unit 37.825 In Sodium Chloride 0.9% 100 ml @ Per Protocol IV .Q0M [facility] Rx#:[id number] Tube Feeding 655 665 275 Other 215 160 80 Output: Urine 660 985 850 Stool 1000 Other: Voiding Method Indwelling Catheter Indwelling Catheter Indwelling Catheter ABP, PAP, CO, CI - Last Documented Arterial Blood Pressure 145/58 - Labs CBC & Chem 7: 11/14/19 05:23 11/14/19 05:23 Labs: Abnormal Lab Results - Last 24 Hours (Table) 11/06/19 11/12/19 11/13/19 Range/Units 17:03 04:12 11:46 WBC (3.8-10.6) k/uL RBC (4.30-5.90) m/uL Hgb (13.0-17.5) gm/dL Hct (39.0-53.0) % MCV (80.0-100.0) fL MCHC (31.0-37.0) g/dL Plt Count (150-450) k/uL Neutrophils # (1.3-7.7) k/uL Lymphocytes # (1.0-4.8) k/uL Chloride (98-107) mmol/L BUN (9-20) mg/dL Glucose (74-99) mg/dL POC Glucose (mg/dL) 205 H (75-99) mg/dL Calcium (8.4-10.2) mg/dL Alkaline Phosphatase (38-126) U/L Total Protein (6.3-8.2) g/dL Albumin (3.5-5.0) g/dL Aldolase 9.5 H (1.2-7.6) U/L Stool Calprotectin 410.4 H (<50) mcg/g 11/13/19 11/13/19 11/13/19 Range/Units 16:06 19:38 23:55 WBC (3.8-10.6) k/uL RBC (4.30-5.90) m/uL Hgb (13.0-17.5) gm/dL Hct (39.0-53.0) % MCV (80.0-100.0) fL MCHC (31.0-37.0) g/dL Plt Count (150-450) k/uL Neutrophils # (1.3-7.7) k/uL Lymphocytes # (1.0-4.8) k/uL Chloride (98-107) mmol/L BUN (9-20) mg/dL Glucose (74-99) mg/dL POC Glucose (mg/dL) 245 H 166 H 174 H (75-99) mg/dL Calcium (8.4-10.2) mg/dL Alkaline Phosphatase (38-126) U/L Total Protein (6.3-8.2) g/dL Albumin (3.5-5.0) g/dL Aldolase (1.2-7.6) U/L Stool Calprotectin (<50) mcg/g 11/14/19 11/14/19 11/14/19 Range/Units 04:15 05:23 05:23 WBC 13.6 H (3.8-10.6) k/uL RBC 2.60 L (4.30-5.90) m/uL Hgb 8.0 L (13.0-17.5) gm/dL Hct 26.9 L (39.0-53.0) % MCV 103.4 H (80.0-100.0) fL MCHC 29.7 L (31.0-37.0) g/dL Plt Count 658 H (150-450) k/uL Neutrophils # 11.5 H (1.3-7.7) k/uL Lymphocytes # 0.9 L (1.0-4.8) k/uL Chloride 111 H (98-107) mmol/L BUN 23 H (9-20) mg/dL Glucose 206 H (74-99) mg/dL POC Glucose (mg/dL) 203 H (75-99) mg/dL Calcium 7.7 L (8.4-10.2) mg/dL Alkaline Phosphatase 133 H (38-126) U/L Total Protein 5.9 L (6.3-8.2) g/dL Albumin 2.2 L (3.5-5.0) g/dL Aldolase (1.2-7.6) U/L Stool Calprotectin (<50) mcg/g 11/14/19 Range/Units 08:31 WBC (3.8-10.6) k/uL RBC (4.30-5.90) m/uL Hgb (13.0-17.5) gm/dL Hct (39.0-53.0) % MCV (80.0-100.0) fL MCHC (31.0-37.0) g/dL Plt Count (150-450) k/uL Neutrophils # (1.3-7.7) k/uL Lymphocytes # (1.0-4.8) k/uL Chloride (98-107) mmol/L BUN (9-20) mg/dL Glucose (74-99) mg/dL POC Glucose (mg/dL) 200 H (75-99) mg/dL Calcium (8.4-10.2) mg/dL Alkaline Phosphatase (38-126) U/L Total Protein (6.3-8.2) g/dL Albumin (3.5-5.0) g/dL Aldolase (1.2-7.6) U/L Stool Calprotectin (<50) mcg/g Microbiology - Last 24 Hours (Table) 11/09/19 16:29 Blood Culture - Preliminary Blood No Growth after 96 hours <Bess Quintero - Last Filed: 11/16/19 21:23> Subjective Patient seen and evaluated. Please see recommendations below. Patient reevaluate this afternoon. Nurse notified surgical staff regarding high residuals from nasogastric tube. I personally was at bedside whereby feculent emesis was identified. Patient no longer has output from his fecal management system. Abdomen is distended but soft. No peritonitis on exam. Clinical findings consistent with complete small bowel obstruction with feculent gastric contents. I discussed with silo filler Dr. Shell patient's overall clinical status. Patient is no longer on pressors. He has been extubated now almost 2 weeks. He is more alert in the last 3 days as metabolic encephalopathy has improved. Today's he is more lethargic. White blood cell count is elevated. He continues to have temperatures despite multiple antibiotics. Overall, patient is more clinic stable now than he had presented over 3 weeks ago with hyperglycemia, hypotension, liver shock, acute kidney injury, acute mental status changes. Much of his presenting symptoms has improved. Now he has complete small bowel obstruction. A telephone conference including myself, silo filler, and the patient's son Oleksandr was performed over the phone [phone]. As patient is now clinically stable with new complete bowel obstruction, patient's son has given informed consent to proceed with exploratory laparotomy. Patient is deemed high surgical risk including will need continued postoperative recovery in the intensive care unit. The care plan was described at length with the patient's son. We'll proceed with exploratory laparotomy, possible small bowel obstruction and ostomy creation. Critical care time: 34 minutes Objective - Vital Signs Vital signs: Vital Signs Temp 95.6 F L 11/16/19 08:00 Pulse 80 11/16/19 10:30 Resp 34 H 11/16/19 10:30 BP 98/37 11/16/19 08:30 Pulse Ox 94 L 11/15/19 22:00 Intake & Output 11/16/19 11/16/19 11/17/19 06:59 18:59 06:59 Intake Total 4357.860 1404.011 Output Total 430 140 Balance 3927.860 1264.011 Weight 89.6 kg Intake: IV 2979.44 928.48 Cefepime 2 gm In Sodium 100 Chloride 0.9% 100 ml @ 200 mls/hr IVPB Q12H [facility] Rx#:[id number] Dextrose 5% in Water 1, 2400 800 000 ml @ 200 mls/hr IV . Q5H45M [facility] with Sodium Bicarb (1 Meq/ml) 150 ml Rx#:[id number] Pressure Bag 66 24 Sodium Chloride 0.9% 1, 240 80 000 ml @ 30 mls/hr IV . Q24H [facility] Rx#:[id number] Sodium Chloride 0.9% 50 73.44 24.48 ml @ 0.04 UNITS/MIN 6.12 mls/hr IVPB .Q8H20M [facility] with Vasopressin 20 unit Rx#:[id number] metroNIDAZOLE-NS PMX 500 100 mg In Saline 1 100ml.bag @ 100 mls/hr IVPB Q8HR [facility] Rx#:[id number] Intake, IV Titration 758.420 475.531 Amount EPINEPHrine 4 mg In 725.951 250 Dextrose 5% in Water 250 ml @ 0.01 MCG/KG/MIN 3. 131 mls/hr IV .Q24H [facility] Rx#:[id number] Norepinephrine 8 mg In 32.469 225.531 Sodium Chloride 0.9% 250 ml @ 0.05 MCG/KG/MIN 8. 117 mls/hr IV .Q24H [facility] Rx#:[id number] Blood Product 620 Rc As-1 Unit 310 [id number] Output: Gastric Drainage 0 Drainage 375 140 Right Lower Abdomen 115 80 Right Upper Abdomen 260 60 Urine 55 0 Other: Voiding Method Indwelling Catheter Indwelling Catheter ABP, PAP, CO, CI - Last Documented Arterial Blood Pressure 101/50 - Labs CBC & Chem 7: 11/16/19 04:08 11/16/19 04:08 Labs: Abnormal Lab Results - Last 24 Hours (Table) 11/15/19 11/15/19 11/15/19 Range/Units 23:20 23:20 23:20 WBC 28.3 H (3.8-10.6) k/uL RBC 2.64 L (4.30-5.90) m/uL Hgb 7.9 L (13.0-17.5) gm/dL Hct 30.6 L (39.0-53.0) % MCV 116.1 H (80.0-100.0) fL MCHC 25.9 L (31.0-37.0) g/dL RDW 15.9 H (11.5-15.5) % Neutrophils # (Manual) (1.3-7.7) k/uL Metamyelocytes # (Man) (0) k/uL Myelocytes # (Manual) (0) k/uL Macrocytosis Marked A ABG pH (7.35-7.45) ABG pCO2 (35-45) mmHg ABG pO2 (83-108) mmHg ABG HCO3 (21-25) mmol/L ABG Total CO2 (19-24) mmol/L ABG O2 Saturation (94-97) % ABG Lactic Acid (0.5-1.6) mmol/L Sodium 146 H (137-145) mmol/L Potassium 5.5 H (3.5-5.1) mmol/L Chloride 111 H (98-107) mmol/L Carbon Dioxide <5 L* (22-30) mmol/L BUN 21 H (9-20) mg/dL Creatinine 2.66 H (0.66-1.25) mg/dL Glucose 164 H (74-99) mg/dL POC Glucose (mg/dL) 188 H (75-99) mg/dL Plasma Lactic Acid Fredrick (0.7-2.0) mmol/L Calcium 6.3 L* (8.4-10.2) mg/dL Phosphorus (2.5-4.5) mg/dL Magnesium (1.6-2.3) mg/dL AST (17-59) U/L ALT (4-49) U/L Total Protein (6.3-8.2) g/dL Albumin (3.5-5.0) g/dL 11/15/19 11/16/19 11/16/19 Range/Units 23:20 04:08 04:08 WBC 29.1 H (3.8-10.6) k/uL RBC 2.57 L (4.30-5.90) m/uL Hgb 7.4 L (13.0-17.5) gm/dL Hct 29.9 L (39.0-53.0) % MCV 116.3 H (80.0-100.0) fL MCHC 24.6 L (31.0-37.0) g/dL RDW 15.6 H (11.5-15.5) % Neutrophils # (Manual) 23.20 H (1.3-7.7) k/uL Metamyelocytes # (Man) 0.87 H (0) k/uL Myelocytes # (Manual) 1.75 H (0) k/uL Macrocytosis Marked A ABG pH (7.35-7.45) ABG pCO2 (35-45) mmHg ABG pO2 (83-108) mmHg ABG HCO3 (21-25) mmol/L ABG Total CO2 (19-24) mmol/L ABG O2 Saturation (94-97) % ABG Lactic Acid >24.0 H* (0.5-1.6) mmol/L Sodium (137-145) mmol/L Potassium 6.0 H (3.5-5.1) mmol/L Chloride 108 H (98-107) mmol/L Carbon Dioxide <5 L* (22-30) mmol/L BUN 22 H (9-20) mg/dL Creatinine 2.22 H (0.66-1.25) mg/dL Glucose 219 H (74-99) mg/dL POC Glucose (mg/dL) (75-99) mg/dL Plasma Lactic Acid Fredrick (0.7-2.0) mmol/L Calcium 6.2 L* (8.4-10.2) mg/dL Phosphorus 12.0 H* (2.5-4.5) mg/dL Magnesium 2.4 H (1.6-2.3) mg/dL AST 394 H (17-59) U/L ALT 354 H (4-49) U/L Total Protein 3.9 L (6.3-8.2) g/dL Albumin 1.7 L (3.5-5.0) g/dL 11/16/19 11/16/19 11/16/19 Range/Units 04:08 04:15 05:30 WBC (3.8-10.6) k/uL RBC (4.30-5.90) m/uL Hgb (13.0-17.5) gm/dL Hct (39.0-53.0) % MCV (80.0-100.0) fL MCHC (31.0-37.0) g/dL RDW (11.5-15.5) % Neutrophils # (Manual) (1.3-7.7) k/uL Metamyelocytes # (Man) (0) k/uL Myelocytes # (Manual) (0) k/uL Macrocytosis ABG pH <6.80 L* (7.35-7.45) ABG pCO2 24 L (35-45) mmHg ABG pO2 129 H (83-108) mmHg ABG HCO3 4 L* (21-25) mmol/L ABG Total CO2 4 L (19-24) mmol/L ABG O2 Saturation 97.1 H (94-97) % ABG Lactic Acid (0.5-1.6) mmol/L Sodium (137-145) mmol/L Potassium (3.5-5.1) mmol/L Chloride (98-107) mmol/L Carbon Dioxide (22-30) mmol/L BUN (9-20) mg/dL Creatinine (0.66-1.25) mg/dL Glucose (74-99) mg/dL POC Glucose (mg/dL) 243 H (75-99) mg/dL Plasma Lactic Acid Fredrick >24.0 H* (0.7-2.0) mmol/L Calcium (8.4-10.2) mg/dL Phosphorus (2.5-4.5) mg/dL Magnesium (1.6-2.3) mg/dL AST (17-59) U/L ALT (4-49) U/L Total Protein (6.3-8.2) g/dL Albumin (3.5-5.0) g/dL 11/16/19 Range/Units 08:24 WBC (3.8-10.6) k/uL RBC (4.30-5.90) m/uL Hgb (13.0-17.5) gm/dL Hct (39.0-53.0) % MCV (80.0-100.0) fL MCHC (31.0-37.0) g/dL RDW (11.5-15.5) % Neutrophils # (Manual) (1.3-7.7) k/uL Metamyelocytes # (Man) (0) k/uL Myelocytes # (Manual) (0) k/uL Macrocytosis ABG pH (7.35-7.45) ABG pCO2 (35-45) mmHg ABG pO2 (83-108) mmHg ABG HCO3 (21-25) mmol/L ABG Total CO2 (19-24) mmol/L ABG O2 Saturation (94-97) % ABG Lactic Acid (0.5-1.6) mmol/L Sodium (137-145) mmol/L Potassium (3.5-5.1) mmol/L Chloride (98-107) mmol/L Carbon Dioxide (22-30) mmol/L BUN (9-20) mg/dL Creatinine (0.66-1.25) mg/dL Glucose (74-99) mg/dL POC Glucose (mg/dL) 279 H (75-99) mg/dL Plasma Lactic Acid Fredrick (0.7-2.0) mmol/L Calcium (8.4-10.2) mg/dL Phosphorus (2.5-4.5) mg/dL Magnesium (1.6-2.3) mg/dL AST (17-59) U/L ALT (4-49) U/L Total Protein (6.3-8.2) g/dL Albumin (3.5-5.0) g/dL Microbiology - Last 24 Hours (Table) 11/09/19 16:29 Blood Culture - Final Blood No Growth after 144 hours Assessment and Plan (1) Hyponatremia Status: Acute Code(s): E87.1 - HYPO-OSMOLALITY AND HYPONATREMIA SNOMED Code(s): 00306361 (2) Hyperkalemia Status: Acute Code(s): E87.5 - HYPERKALEMIA SNOMED Code(s): 27477712 (3) Sigmoid diverticulitis Status: Acute Code(s): K57.32 - DVTRCLI OF LG INT W/O PERFORATION OR ABSCESS W/O BLEEDING SNOMED Code(s): 808570664 (4) Dynamic ileus Status: Acute Code(s): K56.7 - ILEUS, UNSPECIFIED SNOMED Code(s): 80374020 (5) Hyperosmolar syndrome Status: Acute Code(s): E87.0 - HYPEROSMOLALITY AND HYPERNATREMIA SNOMED Code(s): 85206779 (6) Hyperosmolarity due to secondary diabetes mellitus Status: Acute Code(s): E13.00 - OTH DIAB W HYPROSM W/O NONKET HYPRGLY-HYPROS COMA ([facility]) SNOMED Code(s): 00496800 (7) Altered mental state Status: Acute Code(s): R41.82 - ALTERED MENTAL STATUS, UNSPECIFIED SNOMED Code(s): 336511630 (8) Dementia Status: Acute Code(s): F03.90 - UNSPECIFIED DEMENTIA WITHOUT BEHAVIORAL DI STURBANCE SNOMED Code(s): 22281390 (9) Renal insufficiency syndrome Status: Acute Code(s): N28.9 - DISORDER OF KIDNEY AND URETER, UNSPECIFIED SNOMED Code(s): 136295624 (10) Shock liver Status: Acute Code(s): K72.00 - ACUTE AND SUBACUTE HEPATIC FAILURE WITHOUT COMA SNOMED Code(s): 406229705 (11) Sepsis Status: Acute Code(s): A41.9 - SEPSIS, UNSPECIFIED ORGANISM SNOMED Code(s): 22576576
--- NOTE | 2019-11-14 15:09 | P.PN ---
Progress Note - Text Progress Note Date: 11/14/19 Patient reevaluate this afternoon. Nurse notified surgical staff regarding high residuals from nasogastric tube. I personally was at bedside whereby feculent emesis was identified. Patient no longer has output from his fecal management system. Abdomen is distended but soft. No peritonitis on exam. Clinical findings consistent with complete small bowel obstruction would feculent gastric contents. I discussed with grease man Dr. Shell patient's overall clinical status. Patient is no longer on pressors. He has been extubated now almost 2 weeks. He is more alert in the last 3 days as metabolic encephalopathy has improved. Today's he is more lethargic. White blood cell count is elevated. He continues to have temperatures despite multiple antibiotics. Overall, patient is more clinic stable now than he had presented over 3 weeks ago with hyperglycemia, hypotension, liver shock, acute kidney injury, acute mental status changes. Much of his presenting symptoms has improved. Now he has complete small bowel obstruction. A telephone conference including myself, grease man, and the patient's son Oleksandr was performed over the phone [phone]. As patient is now clinically stable with new complete bowel obstruction, patient's son has given informed consent to proceed with exploratory laparotomy. Patient is deemed high surgical risk including will need continued postoperative recovery in the intensive care unit. The care plan was described at length with the patient's son. We'll proceed with exploratory laparotomy, possible small bowel obstruction and ostomy creation.
[2019-11-14 16:07] LABS: Glucose,Whole Blood 75 mg/dL (75-99)
[2019-11-14] MEDS: metroNIDAZOLE-NS PMX 500 MG in SALINE 1 100ML.BAG IVPB SCH (16:09)
--- NOTE | 2019-11-14 16:34 | PN ---
PROGRESS NOTE DATE OF SERVICE: 11/14/2019 REASON FOR FOLLOWUP: Fever. INTERVAL HISTORY: The patient has a persistent fever of 101 degrees Fahrenheit on a daily basis. The patient is hemodynamically stable, not on any pressor support, currently on 4 L nasal cannula. The patient did have an NG with significant amount of stool-colored secretions being suctioned out. The overall stool output in the fecal management system has decreased. The patient remains lethargic and unable to provide any history. PHYSICAL EXAMINATION: Blood pressure 109/52 with a pulse of 101. Temperature is 101 degrees Fahrenheit. He is 93% on 4 L nasal cannula. General description is an elderly male lying in bed in no distress. RESPIRATORY SYSTEM: Unlabored breathing with decreased breath sounds at the base. HEART: S1, S2. Regular rate and rhythm. ABDOMEN: Soft. Less distended. LABS: Hemoglobin 8, white count 13.6, BUN of 23, creatinine 0.76. DIAGNOSTIC IMPRESSION AND PLAN: Patient with a fever, multifactorial in this patient with concern about possible abdominal source, now with significant ileus and suctioning of significant amount of stool-colored secretions through the NG with a concern for possible pattern. Culture has been negative for any resistant pathogen. Will keep the patient on cefepime and Flagyl to cover for the GI darinel. However, discontinue the vancomycin and monitor his clinical course closely. MMODL / IJN: [id number] /
--- NOTE | 2019-11-14 16:43 | P.PN ---
Progress Note - Text Progress Note Date: 11/14/19 Interval history: 79-year-old male with PMH of diabetes mellitus on oral hypoglycemics, con pascual presents the ED for altered mentation. Apparently, patient was visited by his nurse who noted an extremely high blood glucose which prompted his hospital visit. Patient is altered and he is unable to provide any meaningful history. Majority of documentation was obtained from chart review and discussion with his son. Apparently, patient has been confused and disoriented which is progressive ly been worsening over the past 2 weeks. His son reports that the patient fell a week ago and did not seek medical attention. Patient lives with his who is suffering from advanced Alzheimer's dementia and is currently in hospice. According to the son, patient drinks 4 L of soda on a daily basis. Son reports that patient is noncompliant with her diabetic diet. In the ED, vital signs showed a T low of 97.5 Fahrenheit, pulse of 102, tachypnea with respiratory rate of 28, BP of 85/49 and 89% on room air. CBC showed leukocytosis of 11 and MCV of 124.1. ABG showed pH of 7, pCO2 19, bica rbonate of 8. CMP showed sodium of 116, potassium of 5.7, chloride of 74, bicarbonate of 8, BUN 33, creatinine 2.18, glucose greater than 1875. Troponin was 0.881 with EKG showing sinus tachycardia. Urinalysis shows 4+ glucose and trace blood. Acetone was negative. CT brain was negative for hemorrhage but showed slightly hyperdense left MCA compared to right. Chest x-ray showed possible right lower lobe infiltrate. Patient is admitted to ICU for sepsis, troponin elevation and diabetic ketoacidosis. Intubated. Patient developed ischemic hepatitis. Sepsis. Also developed bowel obstruction-that corrected on its own. Seen by neurology. Patient's felt to have anoxic brain injury. Patient was extubated on November 01. Patient regained a fever. IV antifungal was added subsequently cefepime and vancomycin started Today-ICU. Nurse to talk to patient's NG tube to suction following abdominal distention. Large amount of feculent matter amounting to about 800 mL was obtained very much similar looking into that in the fecal management system. But Suleman and the general surgeon Dr. Dhaliwal to speak to patient's son over the phone. And consent was obtained for taking the patient to operating room this off and on. Understanding that this is a high risk situation. Patient remains febrile. Review of systems: Attempted for constitutional, cardiovascular, GI, pulmonary. relevant finding as above Active Medications Acetaminophen (Tylenol Tab) 650 mg PO Q6HR PRN PRN Reason: Fever and/ or Pain Last Admin: 11/13/19 11:55 Dose: 650 mg Documented by: Amiodarone HCl (Cordarone) 200 mg PO BID [facility] [place] Last Admin: 11/14/19 08:39 Dose: 200 mg Documented by: Aspirin (Aspirin) 81 mg PO DAILY [facility] [place] Last Admin: 11/14/19 08:39 Dose: 81 mg Documented by: Famotidine (Pepcid) 20 mg PO BID [facility] [place] Last Admin: 11/14/19 08:39 Dose: 20 mg Documented by: Heparin Sodium (Porcine) (Heparin) 5,000 unit SQ Q8HR [facility] [place] Last Admin: 11/14/19 16:02 Dose: 5,000 unit Documented by: Hydromorphone HCl (Dilaudid) 0.5 mg IVP Q2HR PRN PRN Reason: Pain Last Admin: 11/10/19 03:10 Dose: 0.5 mg Documented by: Lactated Ringer's (Lactated Ringers) 1,000 mls @ 50 mls/hr IV .Q20H [facility] [place] Last Admin: 11/13/19 22:50 Dose: 50 mls/hr Documented by: Anidulafungin 100 mg/ Sodium (Chloride) 100 mls @ 84 mls/hr IVPB DAILY [facility] [place] Last Admin: 11/14/19 08:38 Dose: 84 mls/hr Documented by: Cefepime HCl 2 gm/ Sodium (Chloride) 100 mls @ 200 mls/hr IVPB Q12H [facility] [place] Last Admin: 11/14/19 04:45 Dose: 200 mls/hr Documented by: Metronidazole 500 mg/ IV (Solution) 100 mls @ 100 mls/hr IVPB Q8HR [facility] [place] Last Admin: 11/14/19 16:09 Dose: 100 mls/hr Documented by: Insulin Aspart (Novolog) 0 unit SQ Q4H [facility] [place]; Protocol Last Admin: 11/14/19 16:12 Dose: Not Given Documented by: Insulin Detemir (Levemir) 16 unit SQ DAILY@0700 [facility] [place] Lisinopril (Zestril) 2.5 mg PO DAILY [facility] [place] Last Admin: 11/14/19 08:38 Dose: 2.5 mg Documented by: Metoprolol Tartrate (Lopressor) 25 mg PO BID [facility] [place] Last Admin: 11/14/19 08:39 Dose: 25 mg Documented by: Miscellaneous Information (Pneumonia Protocol Utilized) 1 each PO ONCE PRN PRN Reason: Per Protocol Miscellaneous Information (Magnesium Per Protocol) 1 each MISCELLANE DAILY PRN; Protocol PRN Reason: Per Protocol Miscellaneous Information (Phosphorus Per Protocol) 1 each MISCELLANE DAILY PRN; Protocol PRN Reason: Per Protocol Miscellaneous Information (Potassium Per Protocol) 1 each MISCELLANE DAILY PRN; Protocol PRN Reason: Per Protocol Naloxone HCl (Narcan) 0.2 mg IV Q2M PRN PRN Reason: Opioid Reversal Nystatin (Mycostatin Oral Susp) 500,000 unit PO QID [facility] [place] Last Admin: 11/14/19 12:37 Dose: 500,000 unit Documented by: On examination: VITAL SIGNS: 101, 105, 28, 1903, para 3% on 4 L GENERAL APPEARANCE: laying in bed, tired but arousable does answer some questions HEENT: Normal external appearance of nose and ear. , NG tube.-With feculent aspirate EYES: Pupils equal. Conjunctiva normal. NECK: JVD unable to assess. Mass not palpable. RESPIRATORY: Respiratory effort increased. Lungs -decreased breath sounds CARDIOVASCULAR: First and second sounds normal. Some edema. ABDOMEN: Soft. Liver and spleen not palpable. Some tenderness, no guarding or rigidity. No mass palpable. FMS in place PSYCHIATRY: Able to answer some questions NEUROLOGICAL: Follows commands. INVESTIGATIONS, reviewed in the clinical context: White count 13.6 hemoglobin 8 platelets 658 potassium 4.2 creatinine 0.79 albumin 2.2 Previous testing: White count 11 hemoglobin 13.7 platelets 383 Sodium 116, bicarb 8, bun 33, creatinine 2.18 glucose 1875 troponin I 0.88 1 COVID-19 PCR-not detected computed tomography scan of the brain without contrast-no acute degenerative changes Ultrasound kidney-limited exam 2-D echocardiogram-EF 30-35%, anteroseptal apical hypokinesia AST 3453, ALT 1264, computed tomography scan of the abdomen and pelvis without contrast-dilated multiple loops of small bowel some free fluid in the paracolic gutter bilateral lower lobe pulmonary infiltrates, fusiform 4.4 cm lower abdominal aortic aneurysm with aortoiliac endograft multiple diverticula of the sigmoid colon. Mild wall thickening of the ascending colon. Blood cultures from October 20-negative Abdominal x-ray-October 25--contrast has passed through to thecolon EEG suggestive of encephalopathy, computed tomography scan of the brain-on October 28-chronic changes Sputum culture from November 06, stool culture from November 04, urine culture from November 03 and sputum culture from October 27 all growing Layne albicans Computed tomography scan abdomen and pelvis-November 08-bilateral lower lobe airspace consolidation slightly increased, multiple peripheral hepatic irregular hypodensity areas, splenic hypodensity unchanged, distended small bowel Assessment: -acute nonketotic hyperosmolar diabetes with severe hyperglycemia, POA -Acute small bowel obstruction, and distal jejunal clinically improved, NG tube suction discontinued.- tube feeding started. Recurrence of acute bowel obstruction today on November 13. NG tube putting out feculent matter. -Acute hypoxic respiratory failure requiring mechanical ventilator extubated on November 01 -Acute metabolic encephalopathy-improving though slowly -Alzheimer's dementia -Pseudohyponatremia from severe hyperglycemia -4.4 cm distal abdominal aortic aneurysm with the endoluminal stent graft -Peripheral arterial disease -Acute shock liver secondary to hypotensive-corrected -Chronic congestive heart failure from systolic dysfunction EF 30-35% -Sepsis with septic shock, possible community acquired pneumonia -Non-ST elevation HI likely type II from demand ischemia, POA -Acute kidney injury likely ATN and prerenal- corrected -Possibly chronic kidney disease -essential hypertension -Pneumonia suspect gram-negative organism -New onset atrial fibrillation. -Anoxic brain slow improvement -Stage II pressure ulcer on the coccyx -Severe diarrhea-negative for C. diff. possibly from 2 feeding improved -Bilateral critical care myopathy -Febrile possible source abdominal. Patient not a candidate for any surgery. Started on antifungal - November 08. Cefepime and vancomycin was added. Slow to respond. Plan: -On antifungal IV, cefepime, vancomycin. Patient be taken down to the operating room today. High-risk. Prognosis guarded.
[2019-11-14 20:17] LABS: Glucose,Whole Blood 59 mg/dL (75-99)
[2019-11-14] MEDS ORDERED: DEXTROSE 50% SYRINGE 50 ML IVP ONE (20:18)
[2019-11-14 20:33] LABS: Glucose,Whole Blood 92 mg/dL (75-99)
[2019-11-14] MEDS ORDERED: HYDROmorphone (PF) 1 MG/ML ONE (21:15)
[2019-11-14] MEDS ORDERED: PROPOFOL 10 MG/ML 20 ML VIAL IV ONE (21:15)
[2019-11-14] MEDS ORDERED: ROCURONIUM BROMIDE 10 MG/ML 5 ML VIAL IV ONE (21:15)
[2019-11-14] MEDS ORDERED: fentaNYL (PF) 50 MCG/ML 2 ML AMP ONE (21:15)
[2019-11-14] MEDS ORDERED: PHENYLEPHRINE-0.9% NACL SYG 1 MG/10 ML SYRINGE ONE (21:15)
[2019-11-15 01:51] LABS: Glucose,Whole Blood 194 mg/dL (75-99)
[2019-11-15 02:15] LABS: ABG Base Excess -2.5 mmol/L; ABG HCO3 23 mmol/L (21-25); ABG PCO2 40 mmHg (35-45); ABG PH 7.37 (7.35-7.45); ABG PO2 182 mmHg (83-108); ABG TCO2 24 mmol/L (19-24); Allen Test Performed? Yes
[2019-11-15] MEDS: AMIODARONE 200 MG TAB PO SCH ×3 (02:21→21:28)
[2019-11-15] MEDS: FAMOTIDINE 20 MG TAB PO SCH (02:21)
[2019-11-15] MEDS: HEPARIN SODIUM,PORCINE 5,000 UNIT/ML 1 ML VIAL SQ SCH ×3 (02:22→18:33)
[2019-11-15] MEDS: METOPROLOL TARTRATE 25 MG TAB PO SCH ×3 (02:22→21:29)
[2019-11-15] MEDS: NYSTATIN 100,000 UNIT/ML SUSP 500,000 UNIT/5 ML CUP PO SCH ×5 (02:22→21:52)
[2019-11-15] MEDS: INSULIN ASPART (NovoLOG) 100 UNIT/ML VIAL SQ SCH ×6 (02:22→20:25)
[2019-11-15] MEDS: metroNIDAZOLE-NS PMX 500 MG in SALINE 1 100ML.BAG IVPB SCH ×3 (02:23→15:47)
[2019-11-15 03:41] LABS: Glucose,Whole Blood 167 mg/dL (75-99)
[2019-11-15] MEDS ORDERED: ACETAMINOPHEN IV (For NPO) 1,000 MG in EMPTY BAG 1 BAG IVPB ONE (03:47)
[2019-11-15 03:49] LABS: Glucose,Whole Blood 125 mg/dL (75-99)
--- NOTE | 2019-11-15 04:06 | P.OP ---
Date of Procedure: 11/15/19 Description of Procedure: SURGEON: MARIANA DEGROOT MD PREOPERATIVE DIAGNOSES: 1. Sepsis 2. Complete small bowel obstruction 3. Metabolic encephalopathy 4. Poorly controlled diabetes with hyperglycemia 5. Elevated troponins 6. Generalized weakness 7. Inadequate protein malnutrition 8. Acute kidney injury 9. Liver infarction POSTOPERATIVE DIAGNOSES: 1. Sepsis 2. Complete small bowel obstruction due to phlegmon, left lower quadrant 3. Metabolic encephalopathy 4. Poorly controlled diabetes with hyperglycemia 5. Elevated troponins 6. Generalized weakness 7. Inadequate protein malnutrition 8. Acute kidney injury 9. Liver infarction 10. Ascites 11. Intra-abdominal abscess left lower quadrant 12. Fecal peritonitis 13. Sigmoid colon necrosis due to perforated diverticulitis 14. Small bowel necrosis due to adhesive band disease Anesthesia: GETA Estimated Blood Loss (ml): 200 Pathology: other (Small bowel enterectomy small bowel necrosis, necrotic sigmoid colon, anaerobic and aerobic cultures peritoneal fluid) Condition: critical Disposition: ICU Procedure(s) Performed: 1. Exploratory laparotomy extensive lysis of adhesions over 3.5 hours 2. Small bowel enterectomy 2-1/2 feet distal jejunum with primary anastomosis 3. Sigmoid colon resection of necrotic bowel 4. Mobilization of splenic flexure 5. Descending colostomy creation 6. Abdominal peritoneal lavage over 6 L normal saline 7. Drainage of fecal peritonitis, 2.5 L 8. Placement of intraabdominal #19 Aki drain along the left lower pelvis and rectal stump. 9. Placement of 20-cm PREVENA incisional wound VAC system Operative Findings: 1. Small bowel necrosis antimesenteric border involving distal jejunum due to adhesive band disease from phlegmon left lower quadrant 2. Full-thickness small bowel necrosis involving 2.5 feet of distal jejunum resected with primary anastomosis also involved in large phlegmon 3. Diffuse abdominal ascites drained from the abdomen 4. Localized fecal peritonitis 2.5 L left lower quadrant drained 5. Complete gangrene and necrosis of distal descending colon including sigmoid colon resected 5. Appendix identified and unremarkable 6. Gallbladder identified and unremarkable 7. 1 cm splenic infarct inferior pole 8. Mobilization of splenic flexure to mid transverse colon for descending colostomy creation 9. Excellent blood flow to ostomy and viable tissue 10. Lower VICKI drain at left paracolic gutter, previous phlegmon 11. Upper VICKI drain at rectal stump 12. Incisional wound VAC system universal PREVENA applied to wall suction 13. Removal of fecal management system at the end of the case due to new rectal stump 14. Resolved abdominal distention at the end of the case 15. Telephone conference with patient's son Oleksandr and daughter at bedside with intraoperative findings described including intraoperative images reviewed INDICATIONS: The patient is an 79-year-old male was admitted to the hospital over 3+ weeks ago in severe hyperglycemia, hypovolemic shock due to dehydration, liver shock, acute kidney injury, elevated troponins, altered mental status and was in the ICU for the length of his hospitalization. He initially had small bowel obstruction that resolved. His clinical status had improved including being off pressors and mechanical ventilation. He also suffered from profound metabolic encephalopathy that improved over the last 3 days. Today he has prominent feculent output from his nasogastric tube with no output from the rectum. Clinical findings were consistent with complete small bowel obstruction. Extensive discussion with catalytic converter operator helper including family were performed for surgical intervention. As the patient had clinically improved, options for surgical intervention was described however extremely high risk for morbidity mortality. All questions were answered and risks were reviewed. Informed consent was obtained from his family. DESCRIPTION: The patient was transferred from the intensive care unit directly to the operating room. The patient was placed in supine position whereby general induction was performed. Abdomen had been prepped and draped in the standard sterile fashion. Placement of nasogastric tube and Maradiaga catheter were present from the ICU. He also had a fecal management system. Ioban draping was also placed to minimize any contamination to the skin. Next, using #10 blade, the abdomen was entered along the midline whereby an incision was made from the xiphoid down to below the pubis. Moderate turbid ascites was immediately evacuated from the abdomen over 1.5 L. The abdomen was inspected whereby the small bowel was dilated and tethered at the right lower quadrant/pelvis including a dense phlegmon at the left lower quadrant involving the greater omentum and colon. Next, a universal retractor was placed with a bladder blade. Extensive lysis of adhesions over 3-1/2 hours was performed to release the small bowel from the right pelvis as well as a large dense left lower quadrant phlegmon 15 x 20 cm to release the small bowel also from the sigmoid colon and abdominal wall. Once the phlegmon was opened, fecal peritonitis emanated from a completely necrotic sigmoid colon and drained over 2.5 L. Several focal full-thickness small bowel necrosis of the mid to distal jejunum was identified. 3-0 silk was used to arthur proximal and distal resection of the several areas of small bowel necrosis. Prior to resection, the small bowel was investigated from the ligament of Treitz to the ileocecal valve from proximal to distal and vice versa. A window was created along the mesentery proximally and distally of the mid and proximal jejunum. Covidien tri-stapler purple loads were fired and divided the small bowel proximally and distally. The rest of the bowel was mobilized using Enseal. An area of complete small bowel obstruction was also found in the body of the phlegmon and great omentum and involved in the resection. Next, attention was brought to a completely necrotic sigmoid colon. The descending colon and sigmoid colon was mobilized along the medial and lateral attachments with care to avoid any injury to the ureters along the usual anatomical landmarks. Moderate inflammation was found along the mesentery. Proximally, point of resection was at the mid descending colon where the colon was viable. Several fires using 60 mm black loads were performed to divide the colon. For the distal resection, the sigmoid colon was resected at the rectosigmoid junction also using several black 60-mm staple loads. the rectal stump was left open due to the severity of necrosis identified. The small bowel resection and sigmoid resection were passed off for pathological analysis. Next, attention was brought to the delivering and creating of the descending colostomy. Secondary to minimal length of the descending colon, the transverse colon was mobilized including along the splenic flexure. The peritoneal attachments were divided using Enseal and Bovie cautery. Hemostasis was checked. The retroperitoneal attachment was lifted off Gerota's fascia and completely viable. A point along the abdominal wall and rectus muscle was selected for the colostomy. Malka was used to elevate the skin and a #10 blade was taken across in tangential manner to create the skin defect of approximately quarter-size. The fat of the skin was mobilized using a small rich. The rectus muscle was identified and scored with a cruciate scoring of electro- Bovie cautery. Next, using a muscle- splitting technique with a hemostat, the peritoneum was entered. The peritoneum was widened such that 2-3 fingerbreadths could easily pass for delivering and evaginating the descending portion of the colon through the skin. The abdominal cavity was copiously irrigated using more than 6 L normal saline until completely clear. Two round number #19 Rich Jacobs drains were entered along the right upper and lower abdomen and exited through the skin. The upper drain was placed at the rectal stump and closed with suction. The lower drain was placed at the left paracolic gutter. Next, the VICKI drains were tacked along the skin using 2-0 nylon. Bulb suction was placed. The midline incision was closed using double-stranded 0 PDS. Next, the subcutaneous tissue was copiously irrigated with normal saline and dilute hydrogen peroxide. About the umbilicus interrupted 3-0 Vicryl dermal sutures were placed as to avoid any sp around the umbilicus. For the rest of the incision, stainless steel skin sp were applied. The midline incision was covered using PREVENA wound VAC and attention was brought to maturation of the colostomy. The staple edge was removed. Next quadrant sutures at 12 o'clock, 3 o'clock, 6 o'clock, and 9 o'clock position was made using serosa, mucosal and dermal bites using 2-0 Vicryl. Interrupted 3-0 Vicryl was placed in between all quadrants sutures to completely mature the ostomy. Hemostasis was checked. A Coloplast was then placed. At the end of the procedure, needle, sponge, and instrument count had been verified correct by surgical garment assembler. The patient's family was updated on level of care. During the case, additional lines were placed including arterial line, central venous line. Patient was sent to the intensive care unit in critical condition.
[2019-11-15] MEDS ORDERED: IPRATROPIUM-ALBUTEROL 3 ML NEB INHALATION PRN (04:13)
--- NOTE | 2019-11-15 04:18 | XR ---
EXAMINATION TYPE: XR chest 1V DATE OF EXAM: 11/15/2019 COMPARISON: Yesterday HISTORY: Intubation TECHNIQUE: Single view FINDINGS: Endotracheal tube is 4 cm from the akbar. There is right jugular catheter with tip in the right atrium. Thoracic aorta is atheromatous. There is nasogastric tube in the stomach. There is blun ting right costophrenic angle. There is no gross heart failure. IMPRESSION: Tubing in good position. There is significant improvement in the pulmonary edema compared to exam yesterday. Pleural effusions improved.
[2019-11-15] MEDS: LACTATED RINGERS 1,000 ML IV SCH (04:26)
[2019-11-15] MEDS: SODIUM CHLORIDE 0.9% 1,000 ML IV SCH ×2 (04:27→17:24)
[2019-11-15 05:04] LABS: ABG Base Excess -6.1 mmol/L; ABG HCO3 22 mmol/L (21-25); ABG Oxygen Saturation 98.8 % (94-97); ABG PCO2 61 mmHg (35-45); ABG PO2 178 mmHg (83-108); ABG TCO2 24 mmol/L (19-24); Allen Test Performed? Yes
[2019-11-15 05:07] LABS: ABG PH 7.17 (7.35-7.45)
[2019-11-15] MEDS: CEFEPIME 2 GM in SODIUM CHLORIDE 0.9% 100 ML IVPB SCH ×2 (05:26→16:54)
[2019-11-15] MEDS: NOREPINEPHRINE 8 MG in SODIUM CHLORIDE 0.9% 250 ML IV SCH ×3 (05:27→18:30)
[2019-11-15] MEDS: SODIUM CHLORIDE 0.9% 50 ML with VASOPRESSIN 20 UNIT IVPB SCH ×6 (05:38→20:08)
[2019-11-15] MEDS ORDERED: INSULIN DETEMIR (LEVEMIR) 100 UNIT/ML SYR SQ SCH (07:00)
[2019-11-15] MEDS ORDERED: SODIUM CHLORIDE 0.9% 2,000 ML IV ONE (07:07)
[2019-11-15 07:10] LABS: Basophils # (A) 0.1 k/uL (0-0.2); Basophils % (A) 0 %; Eosinophils # (A) 0.1 k/uL (0-0.7); Eosinophils % (A) 0 %; HCT 26.9 % (39.0-53.0); HGB 7.5 gm/dL (13.0-17.5); Hypochromasia Marked; Lymphocytes # (A) 0.9 k/uL (1.0-4.8); Lymphocytes % (A) 4 %; MCH 29.4 pg (25.0-35.0); MCHC 27.7 g/dL (31.0-37.0); MCV 106.1 fL (80.0-100.0); Macrocytosis Moderate; Mean Platelet Volume 8.1; Monocytes # (A) 1.1 k/uL (0-1.0); Monocytes % (A) 5 %; Neutrophils # (A) 20.4 k/uL (1.3-7.7); Neutrophils % (A) 90 %; Platelet Count 636 k/uL (150-450); RBC 2.54 m/uL (4.30-5.90); WBC 22.7 k/uL (3.8-10.6)
[2019-11-15 07:19] LABS: Albumin 1.6 g/dL (3.5-5.0); Calcium 6.8 mg/dL (8.4-10.2); Magnesium 1.8 mg/dL (1.6-2.3); Phosphorus 4.8 mg/dL (2.5-4.5); Potassium 4.7 mmol/L (3.5-5.1); Total Bilirubin 0.7 mg/dL (0.2-1.3)
[2019-11-15 07:26] LABS: ABG HCO3 14 mmol/L (21-25); ABG Oxygen Saturation 96.7 % (94-97); ABG PCO2 41 mmHg (35-45); ABG PO2 109 mmHg (83-108); ABG TCO2 15 mmol/L (19-24); Allen Test Performed? Yes
[2019-11-15 07:29] LABS: ABG PH 7.14 (7.35-7.45)
[2019-11-15] MEDS ORDERED: SODIUM BICARB 8.4% 50 ML SYR (1 MEQ/ML) IV STA ×8 (07:32→17:20)
[2019-11-15] MEDS: IPRATROPIUM-ALBUTEROL 3 ML NEB INHALATION SCH ×5 (07:34→23:52)
[2019-11-15 08:21] LABS: Glucose,Whole Blood 218 mg/dL (75-99)
[2019-11-15] MEDS: CHLORHEXIDINE GLUCONATE 15 ML CUP MUCOUS MEM SCH ×2 (09:30→20:22)
[2019-11-15 10:34] LABS: Glucose,Whole Blood 188 mg/dL (75-99)
[2019-11-15] MEDS: FAMOTIDINE 20 MG/2 ML VIAL IV SCH ×2 (10:38→20:22)
[2019-11-15] MEDS: ASPIRIN 81 MG PO SCH (10:39)
[2019-11-15] MEDS: ANIDULAFUNGIN 100 MG in SODIUM CHLORIDE 0.9% 100 ML IVPB SCH (11:15)
[2019-11-15] MEDS ORDERED: ALBUMIN HUMAN 5% 250 ML in EMPTY BAG 1 BAG IVPB ONE (11:21)
[2019-11-15 11:23] VITALS: BMI 25.0
[2019-11-15] MEDS: ALBUMIN HUMAN 5% 250 ML in EMPTY BAG 1 BAG IVPB STA ×2 (11:27→11:40)
--- NOTE | 2019-11-15 12:02 | P.PN ---
Subjective Progress Note Date: 11/15/19 80-year-old male patient known history of dementia, diabetes hypertension osteoarthritis in addition to abdominal aortic aneurysm, presented to the ED with altered mentation and severe dehydration. The patient's was noted to have elevated blood sugars at home which prompted this hospital visit. He was unable to provide any history at time of admission. He was confused and disoriented and his condition was progressively getting worse over this past few weeks. He apparently had generalized weakness, falls, and he was not seeking any medical attention. He has Alzheimer's dementia. His has Alzheimer's dementia also. Apparently his oral intake has been minimal and the patient was drinking only 4 L of soda on a daily basis. He has been noncompliant his diabetic medications also. A blood sugar of more than 1800. CAT scan of the brain shows no evidence of any acute hemorrhage. There is some degenerative changes and nonspecific white matter changes consistent with remote ischemia. This 79-year-old male patient with a prolonged ICU stay due a multitude of complications that it initially started off with severe dehydration and hyperglycemia and hyperosmolar nonketotic state with subsequent development of an abdominal sepsis secondary to bowel obstruction/ileus, acute hypoxic respiratory failure, acute kidney injury, above and beyond all of his comorbidities that were mentioned in the medical record. Note that during the course of the treatment, the patient required intubation mechanical ventilation and ultimately his condition improved and the patient was weaned off the mechanical ventilator and was extubated. The patient remains in intensive care unit. He is on 2 L of oxygen by nasal cannula. He is receiving lactated Ringer at the rate of 50 mL an hour. He is receiving enteral feeding for nutritional support in the form of Jevity 1.5 with a goal being at 55 mL an hour. He continues to have episodes of temperature and it's catheter tip has been cultured after the triple-lumen catheter was removed and showed no growth. Repeat blood cultures also showed no growth. He does have Layne albicans in his stool and urine and sputum along with evidence of oropharyngeal candidiasis and the patient was started on Eraxis as an antifungal agent. He is also on IV cefepime as a broad-spectrum antibiotic coverage. Part of his fever workup, the patient underwent a CAT scan of the abdomen and pelvis and it showed bilateral pleural effusions and bilateral lower lobe airspace consolidation and atelectasis. There was no evidence of any pericardial effusion. There were multiple hypodense irregular areas in the periphery of the liver measuring up to 5 cm in size. This could be potentially multiple infarcts. There is a similar 5 x 3 hypodensity in the posterior spleen. The bile duct was within normal limits. No evidence of any pancreatic mass. Multiple small calcified gallstones. There was multiple fluid filled distended small loops of small elvin wel. The oral contrast extended into the ileum. Small amount of contrast extended to the cecum at the level of the ileocecal valve. No transition point was seen. There was some mild wall thickening of the sigmoid colon. 4.3 cm aneurysm of the lower abdominal aorta and aortoiliac stents were also noted again. There is abdominal ascites. No evidence of any free air. Lumbar spine was intact and there is no evidence of any compression fractures. The chest x- ray was done showed stable findings along with some lower lung volumes and pulmonary vascular congestion. The patient's stool for C. diff that was collected on 11/05/2019 was also negative. The patient has normal liver function tests. Alkaline phosphatase is 171. The white cell count is not elevated. NG tube is in place and the patient is being trialed on alternative formula as the patient's been having ongoing diarrhea. Testing of the C. diff on 2 separate occasions were negative and the patient's stool output had improv ed following his tube feeds being held. He is currently receiving enteral feeding in the form of Jevity at the rate of 45 mL an hour with a goal of 55. His T-max was 100.4. He is on insulin drip at 2 units an hour. He is on lactated Ringer at 50 mL's an hour. He did normal sinus rhythm. Mental status is impaired and the patient is awake and alert 1. The patient continues to be quite weak and debilitated. The patient's abdomen is slightly distended and he has some minimal direct tenderness. CAT scan of the abdomen was again noted. On today's evaluation of 11/11/2019, I'm seeing the patient for a follow-up. The patient is confused. He is talking and sometimes he makes appropriate comments. Yet for the most part he is quite lethargic and he sleeps. His abdomen remains tender. Upon palpating his abdomen, he does direct tenderness. No rebound tenderness. No guarding. Abdomen is slightly distended. The patient has an NG tube in place. He is receiving enteral feeding for nutritional support. He is on Jevity at the rate of 55 mL an hour. He failed his swallow evaluation. He has produced approximately a 50 mL of diarrhea over the past 24 hours. He has a low-grade fever. His white cell count is slightly elevated and I am obviously again concerned about intra-abdominal pathology contributing to this diarrhea, abdominal distention and pain and leukocytosis. He is on lactated Ringer at the rate of 50 mL an hour. He is receiving insulin drip at 4.5 units an hour for blood sugar control. Renal function is stable. His 40s about 2 by nasal cannula with a pulse ox of 95%. He remains on IV cefepime per IDs recommendations. No other significant events otherwise for now. On 11/12/2019, the patient continues to do poorly. Abdomen is tender and distended. There is still liquidy bowel movements collecting and a fecal management system. He is moaning. His altered in terms of his mentation and he is also febrile. he is on insulin drip at 5.5 units an hour for blood sugar control. He is also receiving normal saline at rate of 50 mL an hour. He is also receiving Jevity at the rate of 55 mL an hour. The son came to visit him yesterday. He was updated on his condition. The family is contemplating hospice and physician will be done hopefully within next 24 hours. Unfortunately nothing much can be offered to this patient. He is covered with broad-spectrum antibiotics. Is still on a combination of Eraxis, cefepime and vancomycin. He is on Dilaudid for pain control. On 11/13/2019, unlike yesterday, the patient is awake and communicating. He follows simple commands. His moving extremities mainly Doppler, and lower extremity is quite weak. He is having low-grade fever. Abdomen is distended and tender. His having liquidy stool while being on Jevity. No plans for any surgical intervention as the patient carries a very poor prognosis according to the surgeon's opinion. Remains on a combination of cefepime Eraxis and vancomycin. He is also on Dilaudid for pain control. He'll be taken off the insulin drip and switch to Levemir insulin for blood sugar control. Family is leaning towards hospice although final decision has not been done. No focal neurological deficit. He is more alert compared to yesterday on today's evalua tion. On 11/14/2019, the patient is awake and communicating. He is essentially the same as yesterday. Abdomen is distended. NG tube is in place. As stated earlier, surgery has no plans to do any further exploration or surgical intervention regarding his abdomen. He is weak. He is moving his arms. Legs are weaker. No active issues with pain control. He is on Levemir insulin. Blood sugars under tighter control and the patient remains on a combination of cefepime and Eraxis and vancomycin.. The patient is having episodic low-grade fever. The white cell count is at 13.6. Hemoglobin is at 8. Renal function is stable. He is stooling. He has a liquidy stool. His enteral feeding has been switched to vital 1.2 and the patient is also receiving lactated Ringer at the rate of 50 mL an hour. He is noted to be having some increased edema for that reason the patient will be given a dose of Lasix. On 11/15/2019 and doing a follow-up evaluation on this patient in intensive care unit. Events from yesterday was noted. After my evaluation, the patient's started having fecal material coming out of his NG tube in his mouth. At that point I contacted the general surgeon again and I also had a lengthy discussion with the family over the phone and talked to the patient's son and talk to general surgery. We had no other option other than going in for surgical exploration of the family consented. As such, the patient was taken to the operating room and the patient underwent an exploratory laparotomy where the patient was found to have intra-abdominal abscesses, fecal peritonitis, sigmoid colon necrosis due to perforated diverticulitis, small bowel necrosis due to adhesions and band disease. The patient underwent expiratory laparotomy, extensive lysis of adhesion for a total of 3-1/2 hours. Also, the patient underwent small bowel enterectomy where 2-1/2 feet of distal jejunum was involved and primary anastomosis was done. Sigmoid colon resection was done and mobilization of the splenic flexure was performed a descending colostomy was created and abdominal peritoneal lavage was done with a total of 6 L of normal saline. Drainage of fecal peritonitis was done with drainage of 2.5 L. Estimated blood loss was 200 mL. Postop, the patient was brought into the intensive care for further care and treatment. Note that following his arrival from the operating room, the patient was found to be hypotensive. I came to follow the patient was given a total of 500 mL of 5% albumin and 4.5 L of normal saline in the operating room. I gave him an additional 2 L. He was on norepinephrine infusion which is running at 0.32 g per KG per minute. I started on vasopressin at physiologic dose of 0.03 units an hour. For now the patient is on no sedation. Urine output has been only to 50 mL since operating room. The patient has 2 VICKI drains the upper 1 has gained around 150 mL in the lower one has drained around disease since arrival from the operating room. The patient's condition is critical for now. Colostomy was noted. Surgical wound site is dry clean and intact. The patient has a VAC system attached to the surgical wound. The blood work from today showed a white cell count of 22.7. Hemoglobin was at 7.5. The most recent blood gas showed a pH of 7.14 with a pCO2 of 41 and pO2 of 109 after doing the necessity ventilator changes. The follow-up lactic acid level came back at 8.9. As such, the patient was given 2 doses of sodium bicarb, 50 mEq each. Condition is critical for now. Objective - Vital Signs Vital signs: Vital Signs Temp 98.1 F 11/15/19 08:50 Pulse 85 11/15/19 11:48 Resp 28 H 11/15/19 10:00 BP 127/51 11/15/19 09:15 Pulse Ox 97 11/15/19 10:00 Intake & Output 11/14/19 11/15/19 11/15/19 18:59 06:59 18:59 Intake Total 1325 3207.146 2915.842 Output Total 3290 770 5 Balance -1965 2437.146 2910.842 Weight 83.5 kg 83.5 kg Intake: IV 900 2850 2713.77 Anidulafungin 100 mg In 100 600 Sodium Chloride 0.9% 100 ml @ 84 mls/hr IVPB DAILY INDU Rx#:[id number] Cefepime 2 gm In Sodium 100 100 Chloride 0.9% 100 ml @ 200 mls/hr IVPB Q12H INDU Rx#:[id number] Lactated Ringers 1,000 ml 600 150 @ 50 mls/hr IV .Q20H INDU Rx#:[id number] Sodium Chloride 0.9% 1, 600 000 ml @ 200 mls/hr IV . Q5H INDU Rx#:[id number] Sodium Chloride 0.9% 2, 2000 000 ml @ 999 mls/hr IV . Q2H1M ONE Rx#:[id number] Sodium Chloride 0.9% 50 13.77 ml @ 0.03 UNITS/MIN 4.59 mls/hr IVPB .Q11H7M INDU with Vasopressin 20 unit Rx#:[id number] metroNIDAZOLE-NS PMX 500 100 100 mg In Saline 1 100ml.bag @ 100 mls/hr IVPB Q8HR INDU Rx#:[id number] Intake, IV Titration 357.146 202.072 Amount ACETAMINOPHEN IV (For NPO 100 ) 1,000 mg In Empty Bag 1 bag @ 400 mls/hr IVPB ONCE ONE Rx#:[id number] Norepinephrine 8 mg In 57.146 202.072 Sodium Chloride 0.9% 250 ml @ 0.05 MCG/KG/MIN 8. 117 mls/hr IV .Q24H INDU Rx#:[id number] Sodium Chloride 0.9% 1, 200 000 ml @ 200 mls/hr IV . Q5H INDU Rx#:[id number] Tube Feeding 345 Other 80 Output: Gastric Drainage 1700 Drainage 200 Right Lower Abdomen 50 Right Upper Abdomen 150 Urine 1590 370 5 Estimated Blood Loss 200 Other: Voiding Method Indwelling Catheter Indwelling Catheter Indwelling Catheter ABP, PAP, CO, CI - Last Documented Arterial Blood Pressure 85/55 - Exam Gen. appearance the patient is sedated, comfortable likely distress. Orogastric and orotracheal tube are both in place. He has a CVP of 4 mmHg as measured. He has a right internal jugular triple-lumen catheter in place. Head exam was generally normal. There was no scleral icterus or corneal arcus. Mucous membranes were dry, the patient has an NG tube in place Neck was supple and without jugular venous distension, thyromegaly, or carotid bruits. Carotids were easily palpable bilaterally. There was no adenopathy. Lungs were clear to auscultation and percussion, and with normal diaphragmatic excursion. No wheezes or rales were noted. Cardiac exam revealed the PMI to be normally situated and sized. The rhythm was regular and no extrasystoles were noted during several minutes of auscultation. The first and second heart sounds were normal and physiologic splitting of the second heart sound was noted. There were no murmurs, rubs, clicks, or gallops. Abdominal exam revealed a mid abdominal incision and the wound is dry clean and intact and a VAC system has been applied to the surgical wound. Bowel sounds are absent. Colostomy site is nonfunctional at this point in time. The tissue itself seems to be viable and healthy for now. No direct tenderness, no rebound tenderness, no guarding, no ascites. Extremities reveal chronic ulceration lower extremities bilaterally with diminished pulses. No cyanosis or clubbing. There is no open wounds or cellulitis in the lower extremities. There is edema in all 4 extremities for now. Neurologic the patient is sedated, comfortable. Not grimacing to any painful stimulation for now. Not following any commands for now. A full neurologic exam cannot be done for now. - Labs CBC & Chem 7: 11/15/19 06:16 11/15/19 06:16 Labs: Abnormal Lab Results - Last 24 Hours (Table) 11/14/19 11/15/19 11/15/19 Range/Units 20:15 01:44 02:12 WBC (3.8-10.6) k/uL RBC (4.30-5.90) m/uL Hgb (13.0-17.5) gm/dL Hct (39.0-53.0) % MCV (80.0-100.0) fL MCHC (31.0-37.0) g/dL Plt Count (150-450) k/uL Neutrophils # (1.3-7.7) k/uL Lymphocytes # (1.0-4.8) k/uL Monocytes # (0-1.0) k/uL ABG pH (7.35-7.45) ABG pCO2 (35-45) mmHg ABG pO2 182 H (83-108) mmHg ABG HCO3 (21-25) mmol/L ABG Total CO2 (19-24) mmol/L ABG O2 Saturation 100.0 H (94-97) % ABG Lactic Acid (0.5-1.6) mmol/L Chloride (98-107) mmol/L Carbon Dioxide (22-30) mmol/L BUN (9-20) mg/dL Glucose (74-99) mg/dL POC Glucose (mg/dL) 59 L 194 H (75-99) mg/dL Calcium (8.4-10.2) mg/dL Phosphorus (2.5-4.5) mg/dL Total Protein (6.3-8.2) g/dL Albumin (3.5-5.0) g/dL 11/15/19 11/15/19 11/15/19 Range/Units 03:40 03:48 05:00 WBC (3.8-10.6) k/uL RBC (4.30-5.90) m/uL Hgb (13.0-17.5) gm/dL Hct (39.0-53.0) % MCV (80.0-100.0) fL MCHC (31.0-37.0) g/dL Plt Count (150-450) k/uL Neutrophils # (1.3-7.7) k/uL Lymphocytes # (1.0-4.8) k/uL Monocytes # (0-1.0) k/uL ABG pH 7.17 L* (7.35-7.45) ABG pCO2 61 H (35-45) mmHg ABG pO2 178 H (83-108) mmHg ABG HCO3 (21-25) mmol/L ABG Total CO2 (19-24) mmol/L ABG O2 Saturation 98.8 H (94-97) % ABG Lactic Acid (0.5-1.6) mmol/L Chloride (98-107) mmol/L Carbon Dioxide (22-30) mmol/L BUN (9-20) mg/dL Glucose (74-99) mg/dL POC Glucose (mg/dL) 167 H 125 H (75-99) mg/dL Calcium (8.4-10.2) mg/dL Phosphorus (2.5-4.5) mg/dL Total Protein (6.3-8.2) g/dL Albumin (3.5-5.0) g/dL 11/15/19 11/15/19 11/15/19 Range/Units 06:16 06:16 07:24 WBC 22.7 H (3.8-10.6) k/uL RBC 2.54 L (4.30-5.90) m/uL Hgb 7.5 L (13.0-17.5) gm/dL Hct 26.9 L (39.0-53.0) % MCV 106.1 H (80.0-100.0) fL MCHC 27.7 L (31.0-37.0) g/dL Plt Count 636 H (150-450) k/uL Neutrophils # 20.4 H (1.3-7.7) k/uL Lymphocytes # 0.9 L (1.0-4.8) k/uL Monocytes # 1.1 H (0-1.0) k/uL ABG pH 7.14 L* (7.35-7.45) ABG pCO2 (35-45) mmHg ABG pO2 109 H (83-108) mmHg ABG HCO3 14 L (21-25) mmol/L ABG Total CO2 15 L (19-24) mmol/L ABG O2 Saturation (94-97) % ABG Lactic Acid (0.5-1.6) mmol/L Chloride 115 H (98-107) mmol/L Carbon Dioxide 20 L (22-30) mmol/L BUN 24 H (9-20) mg/dL Glucose 203 H (74-99) mg/dL POC Glucose (mg/dL) (75-99) mg/dL Calcium 6.8 L (8.4-10.2) mg/dL Phosphorus 4.8 H (2.5-4.5) mg/dL Total Protein 4.0 L (6.3-8.2) g/dL Albumin 1.6 L (3.5-5.0) g/dL 11/15/19 11/15/19 11/15/19 Range/Units 08:20 08:20 10:32 WBC (3.8-10.6) k/uL RBC (4.30-5.90) m/uL Hgb (13.0-17.5) gm/dL Hct (39.0-53.0) % MCV (80.0-100.0) fL MCHC (31.0-37.0) g/dL Plt Count (150-450) k/uL Neutrophils # (1.3-7.7) k/uL Lymphocytes # (1.0-4.8) k/uL Monocytes # (0-1.0) k/uL ABG pH (7.35-7.45) ABG pCO2 (35-45) mmHg ABG pO2 (83-108) mmHg ABG HCO3 (21-25) mmol/L ABG Total CO2 (19-24) mmol/L ABG O2 Saturation (94-97) % ABG Lactic Acid 8.9 H* (0.5-1.6) mmol/L Chloride (98-107) mmol/L Carbon Dioxide (22-30) mmol/L BUN (9-20) mg/dL Glucose (74-99) mg/dL POC Glucose (mg/dL) 218 H 188 H (75-99) mg/dL Calcium (8.4-10.2) mg/dL Phosphorus (2.5-4.5) mg/dL Total Protein (6.3-8.2) g/dL Albumin (3.5-5.0) g/dL Microbiology - Last 24 Hours (Table) 11/15/19 03:40 Sputum Culture - Preliminary Sputum 11/09/19 16:29 Blood Culture - Preliminary Blood No Growth after 120 hours Assessment and Plan Plan: 1 shock with profound hypotension recovered, likely secondary to an abdominal source of the sepsis. The patient is profoundly hypotensive. The patient is being aggressively resuscitated IV fluids. 4-1/2 L of fluid was given and operating room in combination with albumin. More fluid resuscitation is to follow. The patient is currently receiving in addition to liters and the patient will be given IV albumin in addition to pressors. Currently the patient is on physiologic dose of vasopressin at 0.03 units an hour in addition to norepinephrine infusion running at 0.32 g per KG per minute. Urine output is diminished. The patient has leukocytosis and lactic acidosis secondary to profound septic shock. 2 intra-abdominal abscess and fecal peritonitis with sigmoid wall necrosis due to perforated diverticulitis and small bowel necrosis. The patient is currently postop day #1. The patient is post exploratory laparotomy, lysis of adhesions, small bowel enterectomy, sigmoid colon resection with bowel necrosis, creation of a colostomy, abdominal peritoneal lavage with a total of 6 L and drainage of fecal peritonitis of 2.5 L. Currently NG tube is in place. The patient is nothing by mouth for now. Surgical wound site is dry clean and intact. VIKCI drains are also in place. 3 acute lactic acidosis 4 acute hypoxic respiratory failure currently intubated on a mechanical ventilator. 5 acut kidney injury, improved, however, currently as the patient is postop, the patient is producing minimal urine output. 6 altered mental status when underlying component of dementia, and the mental status continues to fluctuate 7 diabetes mellitus, maintained oral hypoglycemics with poor compliance, currently off the insulin drip and the patient will be utilizing size. Coverage for blood sugar control 8 alzheimer's dementia 9 acute leukocytosis secondary to above 10 History of hypertension 11 diarrhea likely secondary to enteral feeding and the C. diff evaluation on 2 separate occasions were negative 12 4.6 cm distal abdominal aortic aneurysm extending to the aortic bifurcation and involving the common iliac arteries with indwelling BILATERAL ILIAC ENDOLUMINAL STENT GRAFT, Unchanged in the most recent CAT scan of the abdomen and pelvis 13 peripheral vascular disease 14 troponin leak, consider Ischemia type 2, the troponin peaked at 2.25 15 acute shock liver secondary to hypotension , recovered 16 CHF with ischemic cardiomyopathy and ejection fraction of 30-35% in addition to old [place] involving the anteroseptal and apical segments of the heart and left ventricle consistent with EKG findings. 17 oropharyngeal candidiasis in addition to Layne and the stool in the urine c urrently on Eraxis Plan Condition is extremely critical Keep the the ventilator support for now continue aggressive fluid resuscitation. CVP is still low. We'll monitor the CVP and urine output and the blood pressure and give more fluids based on the clinical response. Currently on a maintenance of 200 mL an hour of normal saline. May need more fluids. Currently is being bolused with another 2 L of normal saline and 500 mL of albumin. Continue norepinephrine infusion. Continue vasopressin. He was epinephrine infusion if needed. Antibiotic coverage including a combination of cefepime and Eraxis. Flagyl was also added to the regimen to give the patient adequate anaerobic coverage Keep the patient nothing by mouth for now Monitor the blood gases and 2 A of sodium bicarb was given regarding the ongoing acidosis. Dilaudid for pain control Condition is critical and will continue to follow. Case was discussed with the various consultants. The situation was done and more than 30 minutes. Prognosis poor based on the above-mentioned findings. We'll continue to follow Time with Patient: Greater than 30
[2019-11-15 12:04] LABS: Glucose,Whole Blood 151 mg/dL (75-99)
[2019-11-15] MEDS: EPINEPHrine 4 MG in DEXTROSE 5% IN WATER 250 ML IV SCH ×6 (12:55→23:45)
--- NOTE | 2019-11-15 13:03 | P.PN ---
Subjective Progress Note Date: 11/15/19 Principal diagnosis: Diarrhea Patient underwent exploratory laparotomy with colonic and small bowel resection yesterday evening. He remains hemodynamically supported by pressors. Urine output minimal. Remains on the ventilator. Lactic acid significantly elevated. White blood cell count 22. PH 7.14. Objective - Vital Signs Vital signs: Vital Signs Temp 98.1 F 11/15/19 08:50 Pulse 86 11/15/19 12:10 Resp 28 H 11/15/19 12:15 BP 111/33 11/15/19 11:45 Pulse Ox 91 L 11/15/19 12:10 Intake & Output 11/14/19 11/15/19 11/15/19 18:59 06:59 18:59 Intake Total 1325 3207.146 3964.324 Output Total 3290 770 185 Balance -1965 2437.146 3779.324 Weight 83.5 kg 83.5 kg Intake: IV 900 2850 3724.48 Albumin Human 5% 250 ml 500 In Empty Bag 1 bag @ 250 mls/hr IVPB ONCE ONE Rx#: [id number] Anidulafungin 100 mg In 100 600 100 Sodium Chloride 0.9% 100 ml @ 84 mls/hr IVPB DAILY [facility] Rx#:[id number] Cefepime 2 gm In Sodium 100 100 Chloride 0.9% 100 ml @ 200 mls/hr IVPB Q12H [facility] Rx#:[id number] Lactated Ringers 1,000 ml 600 150 @ 50 mls/hr IV .Q20H [facility] Rx#:[id number] Sodium Chloride 0.9% 1, 1000 000 ml @ 200 mls/hr IV . Q5H [facility] Rx#:[id number] Sodium Chloride 0.9% 2, 2000 000 ml @ 999 mls/hr IV . Q2H1M ONE Rx#:[id number] Sodium Chloride 0.9% 50 24.48 ml @ 0.04 UNITS/MIN 6.12 mls/hr IVPB .Q8H20M [facility] with Vasopressin 20 unit Rx#:[id number] metroNIDAZOLE-NS PMX 500 100 100 mg In Saline 1 100ml.bag @ 100 mls/hr IVPB Q8HR [facility] Rx#:[id number] Intake, IV Titration 357.146 239.844 Amount ACETAMINOPHEN IV (For NPO 100 ) 1,000 mg In Empty Bag 1 bag @ 400 mls/hr IVPB ONCE ONE Rx#:[id number] Norepinephrine 8 mg In 57.146 239.844 Sodium Chloride 0.9% 250 ml @ 0.05 MCG/KG/MIN 8. 117 mls/hr IV .Q24H [facility] Rx#:[id number] Sodium Chloride 0.9% 1, 200 000 ml @ 200 mls/hr IV . Q5H [facility] Rx#:[id number] Tube Feeding 345 Other 80 Output: Gastric Drainage 1700 Drainage 200 180 Right Lower Abdomen 50 100 Right Upper Abdomen 150 80 Urine 1590 370 5 Estimated Blood Loss 200 Other: Voiding Method Indwelling Catheter Indwelling Catheter Indwelling Catheter ABP, PAP, CO, CI - Last Documented Arterial Blood Pressure 129/42 - Exam Abdomen: Soft, mild distention, dressing clean and dry, stoma pink - Labs CBC & Chem 7: 11/15/19 06:16 11/15/19 06:16 Labs: Abnormal Lab Results - Last 24 Hours (Table) 11/14/19 11/15/19 11/15/19 Range/Units 20:15 01:44 02:12 WBC (3.8-10.6) k/uL RBC (4.30-5.90) m/uL Hgb (13.0-17.5) gm/dL Hct (39.0-53.0) % MCV (80.0-100.0) fL MCHC (31.0-37.0) g/dL Plt Count (150-450) k/uL Neutrophils # (1.3-7.7) k/uL Lymphocytes # (1.0-4.8) k/uL Monocytes # (0-1.0) k/uL ABG pH (7.35-7.45) ABG pCO2 (35-45) mmHg ABG pO2 182 H (83-108) mmHg ABG HCO3 (21-25) mmol/L ABG Total CO2 (19-24) mmol/L ABG O2 Saturation 100.0 H (94-97) % ABG Lactic Acid (0.5-1.6) mmol/L Chloride (98-107) mmol/L Carbon Dioxide (22-30) mmol/L BUN (9-20) mg/dL Glucose (74-99) mg/dL POC Glucose (mg/dL) 59 L 194 H (75-99) mg/dL Calcium (8.4-10.2) mg/dL Phosphorus (2.5-4.5) mg/dL Total Protein (6.3-8.2) g/dL Albumin (3.5-5.0) g/dL 11/15/19 11/15/19 11/15/19 Range/Units 03:40 03:48 05:00 WBC (3.8-10.6) k/uL RBC (4.30-5.90) m/uL Hgb (13.0-17.5) gm/dL Hct (39.0-53.0) % MCV (80.0-100.0) fL MCHC (31.0-37.0) g/dL Plt Count (150-450) k/uL Neutrophils # (1.3-7.7) k/uL Lymphocytes # (1.0-4.8) k/uL Monocytes # (0-1.0) k/uL ABG pH 7.17 L* (7.35-7.45) ABG pCO2 61 H (35-45) mmHg ABG pO2 178 H (83-108) mmHg ABG HCO3 (21-25) mmol/L ABG Total CO2 (19-24) mmol/L ABG O2 Saturation 98.8 H (94-97) % ABG Lactic Acid (0.5-1.6) mmol/L Chloride (98-107) mmol/L Carbon Dioxide (22-30) mmol/L BUN (9-20) mg/dL Glucose (74-99) mg/dL POC Glucose (mg/dL) 167 H 125 H (75-99) mg/dL Calcium (8.4-10.2) mg/dL Phosphorus (2.5-4.5) mg/dL Total Protein (6.3-8.2) g/dL Albumin (3.5-5.0) g/dL 11/15/19 11/15/19 11/15/19 Range/Units 06:16 06:16 07:24 WBC 22.7 H (3.8-10.6) k/uL RBC 2.54 L (4.30-5.90) m/uL Hgb 7.5 L (13.0-17.5) gm/dL Hct 26.9 L (39.0-53.0) % MCV 106.1 H (80.0-100.0) fL MCHC 27.7 L (31.0-37.0) g/dL Plt Count 636 H (150-450) k/uL Neutrophils # 20.4 H (1.3-7.7) k/uL Lymphocytes # 0.9 L (1.0-4.8) k/uL Monocytes # 1.1 H (0-1.0) k/uL ABG pH 7.14 L* (7.35-7.45) ABG pCO2 (35-45) mmHg ABG pO2 109 H (83-108) mmHg ABG HCO3 14 L (21-25) mmol/L ABG Total CO2 15 L (19-24) mmol/L ABG O2 Saturation (94-97) % ABG Lactic Acid (0.5-1.6) mmol/L Chloride 115 H (98-107) mmol/L Carbon Dioxide 20 L (22-30) mmol/L BUN 24 H (9-20) mg/dL Glucose 203 H (74-99) mg/dL POC Glucose (mg/dL) (75-99) mg/dL Calcium 6.8 L (8.4-10.2) mg/dL Phosphorus 4.8 H (2.5-4.5) mg/dL Total Protein 4.0 L (6.3-8.2) g/dL Albumin 1.6 L (3.5-5.0) g/dL 11/15/19 11/15/19 11/15/19 Range/Units 08:20 08:20 10:32 WBC (3.8-10.6) k/uL RBC (4.30-5.90) m/uL Hgb (13.0-17.5) gm/dL Hct (39.0-53.0) % MCV (80.0-100.0) fL MCHC (31.0-37.0) g/dL Plt Count (150-450) k/uL Neutrophils # (1.3-7.7) k/uL Lymphocytes # (1.0-4.8) k/uL Monocytes # (0-1.0) k/uL ABG pH (7.35-7.45) ABG pCO2 (35-45) mmHg ABG pO2 (83-108) mmHg ABG HCO3 (21-25) mmol/L ABG Total CO2 (19-24) mmol/L ABG O2 Saturation (94-97) % ABG Lactic Acid 8.9 H* (0.5-1.6) mmol/L Chloride (98-107) mmol/L Carbon Dioxide (22-30) mmol/L BUN (9-20) mg/dL Glucose (74-99) mg/dL POC Glucose (mg/dL) 218 H 188 H (75-99) mg/dL Calcium (8.4-10.2) mg/dL Phosphorus (2.5-4.5) mg/dL Total Protein (6.3-8.2) g/dL Albumin (3.5-5.0) g/dL 11/15/19 Range/Units 12:02 WBC (3.8-10.6) k/uL RBC (4.30-5.90) m/uL Hgb (13.0-17.5) gm/dL Hct (39.0-53.0) % MCV (80.0-100.0) fL MCHC (31.0-37.0) g/dL Plt Count (150-450) k/uL Neutrophils # (1.3-7.7) k/uL Lymphocytes # (1.0-4.8) k/uL Monocytes # (0-1.0) k/uL ABG pH (7.35-7.45) ABG pCO2 (35-45) mmHg ABG pO2 (83-108) mmHg ABG HCO3 (21-25) mmol/L ABG Total CO2 (19-24) mmol/L ABG O2 Saturation (94-97) % ABG Lactic Acid (0.5-1.6) mmol/L Chloride (98-107) mmol/L Carbon Dioxide (22-30) mmol/L BUN (9-20) mg/dL Glucose (74-99) mg/dL POC Glucose (mg/dL) 151 H (75-99) mg/dL Calcium (8.4-10.2) mg/dL Phosphorus (2.5-4.5) mg/dL Total Protein (6.3-8.2) g/dL Albumin (3.5-5.0) g/dL Microbiology - Last 24 Hours (Table) 11/15/19 03:40 Sputum Culture - Preliminary Sputum 11/09/19 16:29 Blood Culture - Preliminary Blood No Growth after 120 hours Assessment and Plan (1) Dynamic ileus Narrative/Plan: Continue IV antibiotics. Wean pressors as able. Continue fluid resuscitation. Current Visit: Yes Status: Acute Code(s): K56.7 - ILEUS, UNSPECIFIED SNOMED Code(s): 19540529
[2019-11-15 13:31] LABS: Calcium 6.7 mg/dL (8.4-10.2); Magnesium 2.1 mg/dL (1.6-2.3); Potassium 4.7 mmol/L (3.5-5.1)
[2019-11-15] MEDS ORDERED: SODIUM CHLORIDE 0.9% 1,000 ML IV ONE (13:49)
[2019-11-15] MEDS ORDERED: ANIDULAFUNGIN 100 MG in SODIUM CHLORIDE 0.9% 100 ML IVPB SCH (14:16)
[2019-11-15] MEDS: DEXTROSE 5% IN WATER 1,000 ML with SODIUM BICARB (1 MEQ/ML) 150 ML IV SCH ×3 (14:34→21:41)
[2019-11-15 16:13] LABS: Glucose,Whole Blood 110 mg/dL (75-99)
[2019-11-15 16:35] LABS: HCT 26.8 % (39.0-53.0); Hypochromasia Marked; MCH 28.8 pg (25.0-35.0); MCHC 24.5 g/dL (31.0-37.0); Macrocytosis Marked; Mean Platelet Volume 8.7; Platelet Count 588 k/uL (150-450); RBC 2.28 m/uL (4.30-5.90); RDW 15.3 % (11.5-15.5); WBC 27.1 k/uL (3.8-10.6)
[2019-11-15 16:36] LABS: HGB 6.6 gm/dL (13.0-17.5)
[2019-11-15 16:37] LABS: MCV 117.4 fL (80.0-100.0)
[2019-11-15 17:05] LABS: ABG Oxygen Saturation 96.8 % (94-97); ABG PCO2 33 mmHg (35-45); ABG PO2 152 mmHg (83-108); ABG TCO2 6 mmol/L (19-24); Allen Test Performed? Yes
[2019-11-15 17:09] LABS: ABG Base Excess -30.1 mmol/L; ABG HCO3 5 mmol/L (21-25); ABG PH <6.80 (7.35-7.45)
[2019-11-15 18:03] VITALS: RESP 34
--- NOTE | 2019-11-15 18:24 | P.PN ---
Progress Note - Text Progress Note Date: 11/15/19 nterval history: 79-year-old male with PMH of diabetes mellitus on oral hypoglycemics, hypertens ion presents the ED for altered mentation. Apparently, patient was visited by his nurse who noted an extremely high blood glucose which prompted his hospital visit. Patient is altered and he is unable to provide any meaningful history. Majority of documentation was obtained from chart review and discussion with his son. Apparently, patient has been confused and disoriented which is progressively been worsening over the past 2 weeks. His son reports that the patient fell a week ago and did not seek medical attention. Patient lives with his who is suffering from advanced Alzheimer's dementia and is currently in hospice. According to the son, patient drinks 4 L of soda on a daily basis. Son reports that patient is noncompliant with her diabetic diet. In the ED, vital signs showed a T low of 97.5 Fahrenheit, pulse of 102, tachypnea with respiratory rate of 28, BP of 85/49 and 89% on room air. CBC showed leukocytosis of 11 and MCV of 124.1. ABG showed pH of 7, pCO2 19, bicar bonate of 8. CMP showed sodium of 116, potassium of 5.7, chloride of 74, bicarbonate of 8, BUN 33, creatinine 2.18, glucose greater than 1875. Troponin was 0.881 with EKG showing sinus tachycardia. Urinalysis shows 4+ glucose and trace blood. Acetone was negative. CT brain was negative for hemorrhage but showed slightly hyperdense left MCA compared to right. Chest x-ray showed possible right lower lobe infiltrate. Patient is admitted to ICU for sepsis, troponin elevation and diabetic ketoacidosis. Intubated. Patient developed ischemic hepatitis. Sepsis. Also developed bowel obstruction-that corrected on its own. Seen by neurology. Patient's felt to have anoxic brain injury. Patient was extubated on November 01. Patient regained a fever. IV antifungal was added subsequently cefepime and vancomycin started. On November 13 patient taken to the operating room. Found to have ischemic small bowel, intra-abdominal abscess, fecal peritonitis, sigmoid colon necrosis due to perforated di verticulitis. Small bowel antrectomy 2.5 feet distal jejunum was done with primary anastomosis and sigmoid colon resection was done. And a descending colostomy was created. Today-ICU. On the ventilator with FiO2 16 and PEEP of 5. Patient is on a vasopressin drip and Levophed drip. Telemetry shows sinus rhythm. Nothing by mouth. Review of systems: Patient intubated Active Medications Acetaminophen (Tylenol Tab) 650 mg PO Q6HR PRN PRN Reason: Fever and/ or Pain Last Admin: 11/13/19 11:55 Dose: 650 mg Documented by: Albuterol/Ipratropium (Duoneb 0.5 Mg-3 Mg/3 Ml Soln) 3 ml INHALATION RT-Q2H PRN PRN Reason: Shortness Of Breath Or Wheezing Albuterol/Ipratropium (Duoneb 0.5 Mg-3 Mg/3 Ml Soln) 3 ml INHALATION RT-Q4H [facility] Last Admin: 11/15/19 15:05 Dose: 3 ml Documented by: Amiodarone HCl (Cordarone) 200 mg PO BID [facility] Last Admin: 11/15/19 10:39 Dose: Not Given Documented by: Aspirin (Aspirin) 81 mg PO DAILY [facility] Last Admin: 11/15/19 10:39 Dose: Not Given Documented by: Chlorhexidine Gluconate (Peridex) 15 ml MUCOUS MEM BID [facility] Last Admin: 11/15/19 09:30 Dose: 15 ml Documented by: Famotidine (Pepcid) 20 mg IV Q12HR [facility] Last Admin: 11/15/19 10:38 Dose: 20 mg Documented by: Heparin Sodium (Porcine) (Heparin) 5,000 unit SQ Q8HR [facility] Last Admin: 11/15/19 10:38 Dose: 5,000 unit Documented by: Hydromorphone HCl (Dilaudid) 0.5 mg IVP Q2HR PRN PRN Reason: Pain Last Admin: 11/10/19 03:10 Dose: 0.5 mg Documented by: Cefepime HCl 2 gm/ Sodium (Chloride) 100 mls @ 200 mls/hr IVPB Q12H [facility] Last Admin: 11/15/19 16:54 Dose: 200 mls/hr Documented by: Metronidazole 500 mg/ IV (Solution) 100 mls @ 100 mls/hr IVPB Q8HR [facility] Last Admin: 11/15/19 15:47 Dose: 100 mls/hr Documented by: Sodium Chloride (Saline 0.9%) 1,000 mls @ 30 mls/hr IV .Q24H [facility] Last Admin: 11/15/19 17:24 Dose: 30 mls/hr Documented by: Norepinephrine Bitartrate 8 mg (/ Sodium Chloride) 258 mls @ 8.117 mls/hr IV .Q24H [facility]; Protocol Last Titration: 11/15/19 16:28 Dose: 0.2 mcg/kg/min, 32.469 mls/hr Documented by: Vasopressin 20 unit/ Sodium (Chloride) 51 mls @ 6.12 mls/hr IVPB .Q8H20M [facility] Last Admin: 11/15/19 11:30 Dose: 6.12 mls/hr Documented by: Epinephrine HCl 4 mg/ Dextrose (/Water) 250 mls @ 3.131 mls/hr IV .Q24H [facility]; Protocol Last Titration: 11/15/19 14:45 Dose: 0.24 mcg/kg/min, 75.15 mls/hr Documented by: Sodium Bicarbonate 150 ml/ (Dextrose/Water) 1,150 mls @ 200 mls/hr IV .Q5H45M [facility] Last Admin: 11/15/19 14:34 Dose: 100 mls/hr Documented by: Anidulafungin 100 mg/ Sodium (Chloride) 130 mls @ 84 mls/hr IVPB DAILY [facility] Insulin Aspart (Novolog) 0 unit SQ Q4H [facility]; Protocol Last Admin: 11/15/19 16:54 Dose: Not Given Documented by: Metoprolol Tartrate (Lopressor) 25 mg PO BID [facility] Last Admin: 11/15/19 10:39 Dose: Not Given Documented by: Miscellaneous Information (Pneumonia Protocol Utilized) 1 each PO ONCE PRN PRN Reason: Per Protocol Miscellaneous Information (Magnesium Per Protocol) 1 each MISCELLANE DAILY PRN; Protocol PRN Reason: Per Protocol Miscellaneous Information (Phosphorus Per Protocol) 1 each MISCELLANE DAILY PRN; Protocol PRN Reason: Per Protocol Miscellaneous Information (Potassium Per Protocol) 1 each MISCELLANE DAILY PRN; Protocol PRN Reason: Per Protocol Naloxone HCl (Narcan) 0.2 mg IV Q2M PRN PRN Reason: Opioid Reversal Nystatin (Mycostatin Oral Susp) 500,000 unit PO QID [facility] Last Admin: 11/15/19 17:51 Dose: 500,000 unit Documented by: On examination: VITAL SIGNS: 98.1, 93, 28, 100 2255, 91% on the ventilator GENERAL APPEARANCE: laying in bed, sedated HEENT: Normal external appearance of nose and ear. , NG tube. EYES: Pupils equal. Conjunctiva normal. NECK: JVD unable to assess. Mass not palpable. RESPIRATORY: Respiratory effort increased. Lungs -decreased breath sounds CARDIOVASCULAR: First and second sounds normal. Some edema. ABDOMEN: Soft. Liver and spleen not palpable. Colostomy bag PSYCHIATRY: Unable to assess NEUROLOGICAL: Patient sedated INVESTIGATIONS, reviewed in the clinical context: White count 22.7 hemoglobin 7.5 platelets 636 potassium 4.7 bun 24 creatinine 1.24 albumin 1.6 Previous testing: White count 11 hemoglobin 13.7 platelets 383 Sodium 116, bicarb 8, bun 33, creatinine 2.18 glucose 1875 troponin I 0.88 1 COVID-19 PCR-not detected computed tomography scan of the brain without contrast-no acute degenerative changes Ultrasound kidney-limited exam 2-D echocardiogram-EF 30-35%, anteroseptal apical hypokinesia AST 3453, ALT 1264, computed tomography scan of the abdomen and pelvis without contrast-dilated multiple loops of small bowel some free fluid in the paracolic gutter bilateral lower lobe pulmonary infiltrates, fusiform 4.4 cm lower abdominal aortic aneurysm with aortoiliac endograft multiple diverticula of the sigmoid colon. Mild wall thickening of the ascending colon. Blood cultures from October 20-negative Abdominal x-ray-October 25--contrast has passed through to thecolon EEG suggestive of encephalopathy, computed tomography scan of the brain-on October 28-chronic changes Sputum culture from November 06, stool culture from November 04, urine culture from November 03 and sputum culture from October 27 all growing Layen albicans Computed tomography scan abdomen and pelvis-November 08-bilateral lower lobe airspace consolidation slightly increased, multiple peripheral hepatic irregular hypodensity areas, splenic hypodensity unchanged, distended small bowel Assessment: -acute nonketotic hyperosmolar diabetes with severe hyperglycemia, POA -Acute small bowel obstruction, and distal jejunal clinically improved, NG tube suction discontinued.- tube feeding started. Recurrence of acute bowel obstruction today on November 13. NG tube putting out feculent matter. -Acute hypoxic respiratory failure requiring mechanical ventilator extubated on November 01 -Acute metabolic encephalopathy-improving though slowly -Alzheimer's dementia -Pseudohyponatremia from severe hyperglycemia -4.4 cm distal abdominal aortic aneurysm with the endoluminal stent graft -Peripheral arterial disease -Acute shock liver secondary to hypotensive-corrected -Chronic congestive heart failure from systolic dysfunction EF 30-35% -Sepsis with septic shock, possible community acquired pneumonia -Non-ST elevation AL likely type II from demand ischemia, POA -Acute kidney injury likely ATN and prerenal- corrected -Possibly chronic kidney disease -essential hypertension -Pneumonia suspect gram-negative organism -New onset atrial fibrillation. -Anoxic brain slow improvement -Stage II pressure ulcer on the coccyx -Severe diarrhea-negative for C. diff. possibly from 2 feeding improved -Bilateral critical care myopathy -November 13 patient taken to the operating room. Found to have ischemic small bowel, intra-abdominal abscess, fecal peritonitis, sigmoid colon necrosis due to perforated diverticulitis. Small bowel antrectomy 2.5 feet distal jejunum was done with primary anastomosis and sigmoid colon resection was done. And a descending colostomy was created. -Full code Plan: - Patient is currently relatively critically ill being on vasopressors levo fed. Remains on IV antifungal, cefepime, Flagyl. Other supportive care to continue.
[2019-11-15 20:01] LABS: Glucose,Whole Blood 153 mg/dL (75-99)
[2019-11-15 23:22] LABS: Glucose,Whole Blood 188 mg/dL (75-99)
[2019-11-15 23:40] LABS: HCT 30.6 % (39.0-53.0); HGB 7.9 gm/dL (13.0-17.5); Hypochromasia Marked; MCH 30.1 pg (25.0-35.0); MCHC 25.9 g/dL (31.0-37.0); MCV 116.1 fL (80.0-100.0); Macrocytosis Marked; Mean Platelet Volume 9.5; Platelet Count 447 k/uL (150-450); Poikilocytosis Slight; RBC 2.64 m/uL (4.30-5.90); RDW 15.9 % (11.5-15.5); WBC 28.3 k/uL (3.8-10.6)
[2019-11-15 23:58] LABS: African American GFR (CKD) 25 (>60 ml/min/1.73 sqM); Blood Urea Nitrogen 21 mg/dL (9-20); Chloride 111 mmol/L (98-107); Glucose 164 mg/dL (74-99); Non-African American GFR(CKD) 22 (>60 ml/min/1.73 sqM); Potassium 5.5 mmol/L (3.5-5.1); Sodium 146 mmol/L (137-145)
--- NOTE | 2019-11-16 | PN ---
PROGRESS NOTE DATE OF SERVICE: 11/15/2019 REASON FOR FOLLOWUP: Abdominal sepsis. INTERVAL HISTORY: The patient taken to OR yesterday. The patient is status post exploratory laparotomy with extensive lysis of adhesions, small-bowel antrectomy two and one half feet sigmoid colonic resection for necrotic bowel. The patient is currently intubated on the vent in ICU on multiple pressors. The patient's fever has resolved. No significant purulent secretions in the ET has been reported. PHYSICAL EXAMINATION: Blood pressure 111/53 with a pulse of 76. Temperature 96.5. General description is an elderly male intubated on the vent. Respiratory system: Unlabored breathing, decreased breath sounds in the bases. No wheeze. HEART: S1, S2. Regular rate and rhythm. Abdomen soft, no tenderness. LABS: Hemoglobin 6.6, white count 7.1, and creatinine 1.85. DIAGNOSTIC IMPRESSION AND PLAN: Patient with sepsis, source is abdominal and this patient did have a necrotic bowel, status post laparotomy and extensive surgery. Keep the patient on cefepime and Flagyl because of his PENICILLIN ALLERGY and monitor clinical course closely. Overall prognosis remains to be guarded. MMODL / IJN: [id number] /
[2019-11-16 00:02] LABS: Calcium 6.3 mg/dL (8.4-10.2); Carbon Dioxide <5 mmol/L (22-30)
[2019-11-16] MEDS: HEPARIN SODIUM,PORCINE 5,000 UNIT/ML 1 ML VIAL SQ SCH ×2 (00:06→08:21)
[2019-11-16] MEDS: INSULIN ASPART (NovoLOG) 100 UNIT/ML VIAL SQ SCH ×3 (00:06→08:27)
[2019-11-16] MEDS: metroNIDAZOLE-NS PMX 500 MG in SALINE 1 100ML.BAG IVPB SCH ×2 (00:07→08:21)
[2019-11-16] MEDS: SODIUM CHLORIDE 0.9% 1,000 ML IV SCH (00:08)
[2019-11-16] MEDS: EPINEPHrine 4 MG in DEXTROSE 5% IN WATER 250 ML IV SCH ×6 (02:58→09:46)
[2019-11-16] MEDS: DEXTROSE 5% IN WATER 1,000 ML with SODIUM BICARB (1 MEQ/ML) 150 ML IV SCH ×2 (03:29→09:46)
[2019-11-16] MEDS: IPRATROPIUM-ALBUTEROL 3 ML NEB INHALATION SCH ×2 (03:50→07:24)
[2019-11-16] MEDS: CEFEPIME 2 GM in SODIUM CHLORIDE 0.9% 100 ML IVPB SCH (04:26)
[2019-11-16 04:28] LABS: Glucose,Whole Blood 243 mg/dL (75-99)
[2019-11-16 04:30] LABS: HCT 29.9 % (39.0-53.0); HGB 7.4 gm/dL (13.0-17.5); Hypochromasia Marked; MCH 28.6 pg (25.0-35.0); MCHC 24.6 g/dL (31.0-37.0); MCV 116.3 fL (80.0-100.0); Macrocytosis Marked; Mean Platelet Volume 9.4; Platelet Count 385 k/uL (150-450); Poikilocytosis Slight; RBC 2.57 m/uL (4.30-5.90); RDW 15.6 % (11.5-15.5); WBC 29.1 k/uL (3.8-10.6)
[2019-11-16 05:09] LABS: Albumin 1.7 g/dL (3.5-5.0); Alkaline Phosphatase 81 U/L (38-126); Blood Urea Nitrogen 22 mg/dL (9-20); Chloride 108 mmol/L (98-107); Glucose 219 mg/dL (74-99); Magnesium 2.4 mg/dL (1.6-2.3); Sodium 144 mmol/L (137-145); Total Bilirubin 1.3 mg/dL (0.2-1.3); Total Protein 3.9 g/dL (6.3-8.2)
[2019-11-16 05:12] LABS: Band Neutrophils % 11 %; Large Platelets Present; Lymphocytes # (M) 2.62 k/uL (1.0-4.8); Metamyelocytes # (M) 0.87 k/uL (0); Metamyelocytes % 3 %; Monocytes # (M) 0.58 k/uL (0-1.0); Myelocytes # (M) 1.75 k/uL (0); Myelocytes % 6 %; Neutrophils % (M) 69 %; Nucleated Red Blood Cells 0 /100 WBC (0-0); Total Cells Counted 200
[2019-11-16] MEDS: SODIUM CHLORIDE 0.9% 50 ML with VASOPRESSIN 20 UNIT IVPB SCH ×2 (05:13)
[2019-11-16 05:15] LABS: African American GFR (CKD) 31 (>60 ml/min/1.73 sqM); Non-African American GFR(CKD) 27 (>60 ml/min/1.73 sqM)
[2019-11-16 05:36] LABS: ABG Oxygen Saturation 97.1 % (94-97); ABG PCO2 24 mmHg (35-45); ABG PO2 129 mmHg (83-108); ABG TCO2 4 mmol/L (19-24); Allen Test Performed? Yes
[2019-11-16 05:40] LABS: ABG Base Excess -31.1 mmol/L; ABG HCO3 4 mmol/L (21-25); ABG PH <6.80 (7.35-7.45)
[2019-11-16 05:42] LABS: Calcium 6.2 mg/dL (8.4-10.2); Carbon Dioxide <5 mmol/L (22-30)
[2019-11-16 05:43] LABS: AST 394 U/L (17-59)
[2019-11-16 05:44] LABS: ALT 354 U/L (4-49)
--- NOTE | 2019-11-16 06:12 | XR ---
EXAMINATION TYPE: XR chest 1V portable DATE OF EXAM: 11/16/2019 HISTORY: Atelectasis. REFERENCE: Previous study dated 11/15/2019. FINDINGS: The patient is ET tube, NG tube and right internal jugular catheter remain in place, unchan ged in appearance. There is worsening bibasilar airspace disease. There are small, bilateral effusions. Heart size is ob scured. IMPRESSION: WORSENING BIBASILAR AIRSPACE DISEASE WITH CONCOMITANT EFFUSIONS.
[2019-11-16] MEDS: CHLORHEXIDINE GLUCONATE 15 ML CUP MUCOUS MEM SCH (08:21)
[2019-11-16] MEDS: FAMOTIDINE 20 MG/2 ML VIAL IV SCH (08:21)
[2019-11-16 08:25] LABS: Glucose,Whole Blood 279 mg/dL (75-99)
[2019-11-16] MEDS: ASPIRIN 81 MG PO SCH (08:27)
[2019-11-16] MEDS: AMIODARONE 200 MG TAB PO SCH (08:27)
[2019-11-16] MEDS: METOPROLOL TARTRATE 25 MG TAB PO SCH (08:28)
[2019-11-16] MEDS: NYSTATIN 100,000 UNIT/ML SUSP 500,000 UNIT/5 ML CUP PO SCH (08:34)
[2019-11-16 08:47] VITALS: BP 98/37; TEMP 95.6
[2019-11-16] MEDS: NOREPINEPHRINE 8 MG in SODIUM CHLORIDE 0.9% 250 ML IV SCH (09:46)
[2019-11-16 10:13] VITALS: PULSE 80
--- NOTE | 2019-11-16 10:37 | P.PN ---
Subjective Progress Note Date: 11/16/19 Principal diagnosis: Diarrhea Patient unresponsive on the ventilator. White blood cell count increased further. Patient profoundly acidotic. No urine output. Objective - Vital Signs Vital signs: Vital Signs Temp 95.6 F L 11/16/19 08:00 Pulse 80 11/16/19 10:00 Resp 34 H 11/16/19 10:00 BP 98/37 11/16/19 08:30 Pulse Ox 94 L 11/15/19 22:00 Intake & Output 11/15/19 11/16/19 11/16/19 18:59 06:59 18:59 Intake Total 6930.054 4357.860 1171.891 Output Total 235 430 140 Balance 6695.054 3927.860 1031.891 Weight 83.5 kg 89.6 kg Intake: IV 6221.20 2979.44 696.36 Albumin Human 5% 250 ml 500 In Empty Bag 1 bag @ 250 mls/hr IVPB ONCE ONE Rx#: [id number] Anidulafungin 100 mg In 100 Sodium Chloride 0.9% 100 ml @ 84 mls/hr IVPB DAILY INDU Rx#:[id number] Cefepime 2 gm In Sodium 100 100 Chloride 0.9% 100 ml @ 200 mls/hr IVPB Q12H INDU Rx#:[id number] Dextrose 5% in Water 1, 600 2400 600 000 ml @ 200 mls/hr IV . Q5H45M INDU with Sodium Bicarb (1 Meq/ml) 150 ml Rx#:[id number] Pressure Bag 66 18 Sodium Chloride 0.9% 1, 1660 240 60 000 ml @ 30 mls/hr IV . Q24H INDU Rx#:[id number] Sodium Chloride 0.9% 1, 1000 000 ml @ 999 mls/hr IV . Q1H1M ONE Rx#:[id number] Sodium Chloride 0.9% 2, 2000 000 ml @ 999 mls/hr IV . Q2H1M ONE Rx#:[id number] Sodium Chloride 0.9% 50 61.20 73.44 18.36 ml @ 0.04 UNITS/MIN 6.12 mls/hr IVPB .Q8H20M INDU with Vasopressin 20 unit Rx#:[id number] metroNIDAZOLE-NS PMX 500 200 100 mg In Saline 1 100ml.bag @ 100 mls/hr IVPB Q8HR INDU Rx#:[id number] Intake, IV Titration 708.854 758.420 475.531 Amount EPINEPHrine 4 mg In 250.000 725.951 250 Dextrose 5% in Water 250 ml @ 0.01 MCG/KG/MIN 3. 131 mls/hr IV .Q24H INDU Rx#:[id number] Norepinephrine 8 mg In 458.854 32.469 225.531 Sodium Chloride 0.9% 250 ml @ 0.05 MCG/KG/MIN 8. 117 mls/hr IV .Q24H INDU Rx#:[id number] Blood Product 0 620 Rc As-1 Unit 0 310 [id number] Output: Gastric Drainage 0 Drainage 230 375 140 Right Lower Abdomen 100 115 80 Right Upper Abdomen 130 260 60 Urine 5 55 0 Other: Voiding Method Indwelling Catheter Indwelling Catheter Indwelling Catheter ABP, PAP, CO, CI - Last Documented Arterial Blood Pressure 103/52 - Exam Abdomen: Soft, distended, stoma slightly ischemic appearing - Labs CBC & Chem 7: 11/16/19 04:08 11/16/19 04:08 Labs: Abnormal Lab Results - Last 24 Hours (Table) 11/15/19 11/15/19 11/15/19 Range/Units 12:02 12:46 13:04 WBC (3.8-10.6) k/uL RBC (4.30-5.90) m/uL Hgb (13.0-17.5) gm/dL Hct (39.0-53.0) % MCV (80.0-100.0) fL MCHC (31.0-37.0) g/dL RDW (11.5-15.5) % Plt Count (150-450) k/uL Neutrophils # (Manual) (1.3-7.7) k/uL Metamyelocytes # (Man) (0) k/uL Myelocytes # (Manual) (0) k/uL Macrocytosis ABG pH (7.35-7.45) ABG pCO2 (35-45) mmHg ABG pO2 (83-108) mmHg ABG HCO3 (21-25) mmol/L ABG Total CO2 (19-24) mmol/L ABG O2 Saturation (94-97) % ABG Lactic Acid (0.5-1.6) mmol/L Sodium 147 H (137-145) mmol/L Potassium (3.5-5.1) mmol/L Chloride 116 H (98-107) mmol/L Carbon Dioxide 8 L* (22-30) mmol/L BUN 22 H (9-20) mg/dL Creatinine 1.85 H (0.66-1.25) mg/dL Glucose 123 H (74-99) mg/dL POC Glucose (mg/dL) 151 H (75-99) mg/dL Plasma Lactic Acid Fredrick 17.7 H* (0.7-2.0) mmol/L Calcium 6.7 L (8.4-10.2) mg/dL Phosphorus (2.5-4.5) mg/dL Magnesium (1.6-2.3) mg/dL AST (17-59) U/L ALT (4-49) U/L Total Protein (6.3-8.2) g/dL Albumin (3.5-5.0) g/dL Crossmatch 11/15/19 11/15/19 11/15/19 Range/Units 16:11 16:13 16:13 WBC 27.1 H (3.8-10.6) k/uL RBC 2.28 L (4.30-5.90) m/uL Hgb 6.6 L* (13.0-17.5) gm/dL Hct 26.8 L (39.0-53.0) % MCV 117.4 H D (80.0-100.0) fL MCHC 24.5 L (31.0-37.0) g/dL RDW (11.5-15.5) % Plt Count 588 H (150-450) k/uL Neutrophils # (Manual) (1.3-7.7) k/uL Metamyelocytes # (Man) (0) k/uL Myelocytes # (Manual) (0) k/uL Macrocytosis Marked A ABG pH (7.35-7.45) ABG pCO2 (35-45) mmHg ABG pO2 (83-108) mmHg ABG HCO3 (21-25) mmol/L ABG Total CO2 (19-24) mmol/L ABG O2 Saturation (94-97) % ABG Lactic Acid (0.5-1.6) mmol/L Sodium (137-145) mmol/L Potassium (3.5-5.1) mmol/L Chloride (98-107) mmol/L Carbon Dioxide (22-30) mmol/L BUN (9-20) mg/dL Creatinine (0.66-1.25) mg/dL Glucose (74-99) mg/dL POC Glucose (mg/dL) 110 H (75-99) mg/dL Plasma Lactic Acid Fredrick >24.0 H* (0.7-2.0) mmol/L Calcium (8.4-10.2) mg/dL Phosphorus (2.5-4.5) mg/dL Magnesium (1.6-2.3) mg/dL AST (17-59) U/L ALT (4-49) U/L Total Protein (6.3-8.2) g/dL Albumin (3.5-5.0) g/dL Crossmatch 11/15/19 11/15/19 11/15/19 Range/Units 16:45 16:58 19:58 WBC (3.8-10.6) k/uL RBC (4.30-5.90) m/uL Hgb (13.0-17.5) gm/dL Hct (39.0-53.0) % MCV (80.0-100.0) fL MCHC (31.0-37.0) g/dL RDW (11.5-15.5) % Plt Count (150-450) k/uL Neutrophils # (Manual) (1.3-7.7) k/uL Metamyelocytes # (Man) (0) k/uL Myelocytes # (Manual) (0) k/uL Macrocytosis ABG pH <6.80 L* (7.35-7.45) ABG pCO2 33 L (35-45) mmHg ABG pO2 152 H (83-108) mmHg ABG HCO3 5 L* (21-25) mmol/L ABG Total CO2 6 L (19-24) mmol/L ABG O2 Saturation (94-97) % ABG Lactic Acid (0.5-1.6) mmol/L Sodium (137-145) mmol/L Potassium (3.5-5.1) mmol/L Chloride (98-107) mmol/L Carbon Dioxide (22-30) mmol/L BUN (9-20) mg/dL Creatinine (0.66-1.25) mg/dL Glucose (74-99) mg/dL POC Glucose (mg/dL) 153 H (75-99) mg/dL Plasma Lactic Acid Fredrick (0.7-2.0) mmol/L Calcium (8.4-10.2) mg/dL Phosphorus (2.5-4.5) mg/dL Magnesium (1.6-2.3) mg/dL AST (17-59) U/L ALT (4-49) U/L Total Protein (6.3-8.2) g/dL Albumin (3.5-5.0) g/dL Crossmatch See Detail 11/15/19 11/15/19 11/15/19 Range/Units 23:20 23:20 23:20 WBC 28.3 H (3.8-10.6) k/uL RBC 2.64 L (4.30-5.90) m/uL Hgb 7.9 L (13.0-17.5) gm/dL Hct 30.6 L (39.0-53.0) % MCV 116.1 H (80.0-100.0) fL MCHC 25.9 L (31.0-37.0) g/dL RDW 15.9 H (11.5-15.5) % Plt Count (150-450) k/uL Neutrophils # (Manual) (1.3-7.7) k/uL Metamyelocytes # (Man) (0) k/uL Myelocytes # (Manual) (0) k/uL Macrocytosis Marked A ABG pH (7.35-7.45) ABG pCO2 (35-45) mmHg ABG pO2 (83-108) mmHg ABG HCO3 (21-25) mmol/L ABG Total CO2 (19-24) mmol/L ABG O2 Saturation (94-97) % ABG Lactic Acid (0.5-1.6) mmol/L Sodium 146 H (137-145) mmol/L Potassium 5.5 H (3.5-5.1) mmol/L Chloride 111 H (98-107) mmol/L Carbon Dioxide <5 L* (22-30) mmol/L BUN 21 H (9-20) mg/dL Creatinine 2.66 H (0.66-1.25) mg/dL Glucose 164 H (74-99) mg/dL POC Glucose (mg/dL) 188 H (75-99) mg/dL Plasma Lactic Acid Fredrick (0.7-2.0) mmol/L Calcium 6.3 L* (8.4-10.2) mg/dL Phosphorus (2.5-4.5) mg/dL Magnesium (1.6-2.3) mg/dL AST (17-59) U/L ALT (4-49) U/L Total Protein (6.3-8.2) g/dL Albumin (3.5-5.0) g/dL Crossmatch 11/15/19 11/16/19 11/16/19 Range/Units 23:20 04:08 04:08 WBC 29.1 H (3.8-10.6) k/uL RBC 2.57 L (4.30-5.90) m/uL Hgb 7.4 L (13.0-17.5) gm/dL Hct 29.9 L (39.0-53.0) % MCV 116.3 H (80.0-100.0) fL MCHC 24.6 L (31.0-37.0) g/dL RDW 15.6 H (11.5-15.5) % Plt Count (150-450) k/uL Neutrophils # (Manual) 23.20 H (1.3-7.7) k/uL Metamyelocytes # (Man) 0.87 H (0) k/uL Myelocytes # (Manual) 1.75 H (0) k/uL Macrocytosis Marked A ABG pH (7.35-7.45) ABG pCO2 (35-45) mmHg ABG pO2 (83-108) mmHg ABG HCO3 (21-25) mmol/L ABG Total CO2 (19-24) mmol/L ABG O2 Saturation (94-97) % ABG Lactic Acid >24.0 H* (0.5-1.6) mmol/L Sodium (137-145) mmol/L Potassium 6.0 H (3.5-5.1) mmol/L Chloride 108 H (98-107) mmol/L Carbon Dioxide <5 L* (22-30) mmol/L BUN 22 H (9-20) mg/dL Creatinine 2.22 H (0.66-1.25) mg/dL Glucose 219 H (74-99) mg/dL POC Glucose (mg/dL) (75-99) mg/dL Plasma Lactic Acid Fredrick (0.7-2.0) mmol/L Calcium 6.2 L* (8.4-10.2) mg/dL Phosphorus 12.0 H* (2.5-4.5) mg/dL Magnesium 2.4 H (1.6-2.3) mg/dL AST 394 H (17-59) U/L ALT 354 H (4-49) U/L Total Protein 3.9 L (6.3-8.2) g/dL Albumin 1.7 L (3.5-5.0) g/dL Crossmatch 11/16/19 11/16/19 11/16/19 Range/Units 04:08 04:15 05:30 WBC (3.8-10.6) k/uL RBC (4.30-5.90) m/uL Hgb (13.0-17.5) gm/dL Hct (39.0-53.0) % MCV (80.0-100.0) fL MCHC (31.0-37.0) g/dL RDW (11.5-15.5) % Plt Count (150-450) k/uL Neutrophils # (Manual) (1.3-7.7) k/uL Metamyelocytes # (Man) (0) k/uL Myelocytes # (Manual) (0) k/uL Macrocytosis ABG pH <6.80 L* (7.35-7.45) ABG pCO2 24 L (35-45) mmHg ABG pO2 129 H (83-108) mmHg ABG HCO3 4 L* (21-25) mmol/L ABG Total CO2 4 L (19-24) mmol/L ABG O2 Saturation 97.1 H (94-97) % ABG Lactic Acid (0.5-1.6) mmol/L Sodium (137-145) mmol/L Potassium (3.5-5.1) mmol/L Chloride (98-107) mmol/L Carbon Dioxide (22-30) mmol/L BUN (9-20) mg/dL Creatinine (0.66-1.25) mg/dL Glucose (74-99) mg/dL POC Glucose (mg/dL) 243 H (75-99) mg/dL Plasma Lactic Acid Fredrick >24.0 H* (0.7-2.0) mmol/L Calcium (8.4-10.2) mg/dL Phosphorus (2.5-4.5) mg/dL Magnesium (1.6-2.3) mg/dL AST (17-59) U/L ALT (4-49) U/L Total Protein (6.3-8.2) g/dL Albumin (3.5-5.0) g/dL Crossmatch 11/16/19 Range/Units 08:24 WBC (3.8-10.6) k/uL RBC (4.30-5.90) m/uL Hgb (13.0-17.5) gm/dL Hct (39.0-53.0) % MCV (80.0-100.0) fL MCHC (31.0-37.0) g/dL RDW (11.5-15.5) % Plt Count (150-450) k/uL Neutrophils # (Manual) (1.3-7.7) k/uL Metamyelocytes # (Man) (0) k/uL Myelocytes # (Manual) (0) k/uL Macrocytosis ABG pH (7.35-7.45) ABG pCO2 (35-45) mmHg ABG pO2 (83-108) mmHg ABG HCO3 (21-25) mmol/L ABG Total CO2 (19-24) mmol/L ABG O2 Saturation (94-97) % ABG Lactic Acid (0.5-1.6) mmol/L Sodium (137-145) mmol/L Potassium (3.5-5.1) mmol/L Chloride (98-107) mmol/L Carbon Dioxide (22-30) mmol/L BUN (9-20) mg/dL Creatinine (0.66-1.25) mg/dL Glucose (74-99) mg/dL POC Glucose (mg/dL) 279 H (75-99) mg/dL Plasma Lactic Acid Fredrick (0.7-2.0) mmol/L Calcium (8.4-10.2) mg/dL Phosphorus (2.5-4.5) mg/dL Magnesium (1.6-2.3) mg/dL AST (17-59) U/L ALT (4-49) U/L Total Protein (6.3-8.2) g/dL Albumin (3.5-5.0) g/dL Crossmatch Microbiology - Last 24 Hours (Table) 11/09/19 16:29 Blood Culture - Final Blood No Growth after 144 hours 11/15/19 03:40 Gram Stain - Preliminary Sputum Sputum Culture - Preliminary Assessment and Plan (1) Dynamic ileus Narrative/Plan: Patient declining despite aggressive medical and recent surgical support. Plans are underway for possible comfort measures today. Prognosis remains grave. Current Visit: Yes Status: Acute Code(s): K56.7 - ILEUS, UNSPECIFIED SNOMED Code(s): 23831421
[2019-11-16] MEDS ORDERED: MORPHINE SULFATE 2 MG/ML SYRINGE IV PRN (11:11)
[2019-11-16] MEDS ORDERED: LORazepam 2 MG/ML INJ IV PRN (11:11)
[2019-11-16] MEDS ORDERED: MORPHINE SULFATE 4 MG/ML SYRINGE IV PRN (11:11)
--- NOTE | 2019-11-16 11:55 | P.PN ---
Subjective Progress Note Date: 11/16/19 80-year-old male patient known history of dementia, diabetes hypertension osteoarthritis in addition to abdominal aortic aneurysm, presented to the ED with altered mentation and severe dehydration. The patient's was noted to have elevated blood sugars at home which prompted this hospital visit. He was unable to provide any history at time of admission. He was confused and disoriented and his condition was progressively getting worse over this past few weeks. He apparently had generalized weakness, falls, and he was not seeking any medical attention. He has Alzheimer's dementia. His has Alzheimer's dementia also. Apparently his oral intake has been minimal and the patient was drinking only 4 L of soda on a daily basis. He has been noncompliant his diabetic medications also. A blood sugar of more than 1800. CAT scan of the brain shows no evidence of any acute hemorrhage. There is some degenerative changes and nonspecific white matter changes consistent with remote ischemia. This 79-year-old male patient with a prolonged ICU stay due a multitude of complications that it initially started off with severe dehydration and hyperglycemia and hyperosmolar nonketotic state with subsequent development of an abdominal sepsis secondary to bowel obstruction/ileus, acute hypoxic respiratory failure, acute kidney injury, above and beyond all of his comorbidities that were mentioned in the medical record. Note that during the course of the treatment, the patient required intubation mechanical ventilation and ultimately his condition improved and the patient was weaned off the mechanical ventilator and was extubated. The patient remains in intensive care unit. He is on 2 L of oxygen by nasal cannula. He is receiving lactated Ringer at the rate of 50 mL an hour. He is receiving enteral feeding for nutritional support in the form of Jevity 1.5 with a goal being at 55 mL an hour. He continues to have episodes of temperature and it's catheter tip has been cultured after the triple-lumen catheter was removed and showed no growth. Repeat blood cultures also showed no growth. He does have Layne albicans in his stool and urine and sputum along with evidence of oropharyngeal candidiasis and the patient was started on Eraxis as an antifungal agent. He is also on IV cefepime as a broad-spectrum antibiotic coverage. Part of his fever workup, the patient underwent a CAT scan of the abdomen and pelvis and it showed bilateral pleural effusions and bilateral lower lobe airspace consolidation and atelectasis. There was no evidence of any pericardial effusion. There were multiple hypodense irregular areas in the periphery of the liver measuring up to 5 cm in size. This could be potentially multiple infarcts. There is a similar 5 x 3 hypodensity in the posterior spleen. The bile duct was within normal limits. No evidence of any pancreatic mass. Multiple small calcified gallstones. There was multiple fluid filled distended small loops of small elvin wel. The oral contrast extended into the ileum. Small amount of contrast extended to the cecum at the level of the ileocecal valve. No transition point was seen. There was some mild wall thickening of the sigmoid colon. 4.3 cm aneurysm of the lower abdominal aorta and aortoiliac stents were also noted again. There is abdominal ascites. No evidence of any free air. Lumbar spine was intact and there is no evidence of any compression fractures. The chest x- ray was done showed stable findings along with some lower lung volumes and pulmonary vascular congestion. The patient's stool for C. diff that was collected on 11/05/2019 was also negative. The patient has normal liver function tests. Alkaline phosphatase is 171. The white cell count is not elevated. NG tube is in place and the patient is being trialed on alternative formula as the patient's been having ongoing diarrhea. Testing of the C. diff on 2 separate occasions were negative and the patient's stool output had improv ed following his tube feeds being held. He is currently receiving enteral feeding in the form of Jevity at the rate of 45 mL an hour with a goal of 55. His T-max was 100.4. He is on insulin drip at 2 units an hour. He is on lactated Ringer at 50 mL's an hour. He did normal sinus rhythm. Mental status is impaired and the patient is awake and alert 1. The patient continues to be quite weak and debilitated. The patient's abdomen is slightly distended and he has some minimal direct tenderness. CAT scan of the abdomen was again noted. On today's evaluation of 11/11/2019, I'm seeing the patient for a follow-up. The patient is confused. He is talking and sometimes he makes appropriate comments. Yet for the most part he is quite lethargic and he sleeps. His abdomen remains tender. Upon palpating his abdomen, he does direct tenderness. No rebound tenderness. No guarding. Abdomen is slightly distended. The patient has an NG tube in place. He is receiving enteral feeding for nutritional support. He is on Jevity at the rate of 55 mL an hour. He failed his swallow evaluation. He has produced approximately a 50 mL of diarrhea over the past 24 hours. He has a low-grade fever. His white cell count is slightly elevated and I am obviously again concerned about intra-abdominal pathology contributing to this diarrhea, abdominal distention and pain and leukocytosis. He is on lactated Ringer at the rate of 50 mL an hour. He is receiving insulin drip at 4.5 units an hour for blood sugar control. Renal function is stable. His 40s about 2 by nasal cannula with a pulse ox of 95%. He remains on IV cefepime per IDs recommendations. No other significant events otherwise for now. On 11/12/2019, the patient continues to do poorly. Abdomen is tender and distended. There is still liquidy bowel movements collecting and a fecal management system. He is moaning. His altered in terms of his mentation and he is also febrile. he is on insulin drip at 5.5 units an hour for blood sugar control. He is also receiving normal saline at rate of 50 mL an hour. He is also receiving Jevity at the rate of 55 mL an hour. The son came to visit him yesterday. He was updated on his condition. The family is contemplating hospice and physician will be done hopefully within next 24 hours. Unfortunately nothing much can be offered to this patient. He is covered with broad-spectrum antibiotics. Is still on a combination of Eraxis, cefepime and vancomycin. He is on Dilaudid for pain control. On 11/13/2019, unlike yesterday, the patient is awake and communicating. He follows simple commands. His moving extremities mainly Doppler, and lower extremity is quite weak. He is having low-grade fever. Abdomen is distended and tender. His having liquidy stool while being on Jevity. No plans for any surgical intervention as the patient carries a very poor prognosis according to the surgeon's opinion. Remains on a combination of cefepime Eraxis and vancomycin. He is also on Dilaudid for pain control. He'll be taken off the insulin drip and switch to Levemir insulin for blood sugar control. Family is leaning towards hospice although final decision has not been done. No focal neurological deficit. He is more alert compared to yesterday on today's evalua tion. On 11/14/2019, the patient is awake and communicating. He is essentially the same as yesterday. Abdomen is distended. NG tube is in place. As stated earlier, surgery has no plans to do any further exploration or surgical intervention regarding his abdomen. He is weak. He is moving his arms. Legs are weaker. No active issues with pain control. He is on Levemir insulin. Blood sugars under tighter control and the patient remains on a combination of cefepime and Eraxis and vancomycin.. The patient is having episodic low-grade fever. The white cell count is at 13.6. Hemoglobin is at 8. Renal function is stable. He is stooling. He has a liquidy stool. His enteral feeding has been switched to vital 1.2 and the patient is also receiving lactated Ringer at the rate of 50 mL an hour. He is noted to be having some increased edema for that reason the patient will be given a dose of Lasix. On 11/15/2019 and doing a follow-up evaluation on this patient in intensive care unit. Events from yesterday was noted. After my evaluation, the patient's started having fecal material coming out of his NG tube in his mouth. At that point I contacted the general surgeon again and I also had a lengthy discussion with the family over the phone and talked to the patient's son and talk to general surgery. We had no other option other than going in for surgical exploration of the family consented. As such, the patient was taken to the operating room and the patient underwent an exploratory laparotomy where the patient was found to have intra-abdominal abscesses, fecal peritonitis, sigmoid colon necrosis due to perforated diverticulitis, small bowel necrosis due to adhesions and band disease. The patient underwent expiratory laparotomy, extensive lysis of adhesion for a total of 3-1/2 hours. Also, the patient underwent small bowel enterectomy where 2-1/2 feet of distal jejunum was involved and primary anastomosis was done. Sigmoid colon resection was done and mobilization of the splenic flexure was performed a descending colostomy was created and abdominal peritoneal lavage was done with a total of 6 L of normal saline. Drainage of fecal peritonitis was done with drainage of 2.5 L. Estimated blood loss was 200 mL. Postop, the patient was brought into the intensive care for further care and treatment. Note that following his arrival from the operating room, the patient was found to be hypotensive. I came to follow the patient was given a total of 500 mL of 5% albumin and 4.5 L of normal saline in the operating room. I gave him an additional 2 L. He was on norepinephrine infusion which is running at 0.32 g per KG per minute. I started on vasopressin at physiologic dose of 0.03 units an hour. For now the patient is on no sedation. Urine output has been only to 50 mL since operating room. The patient has 2 VICKI drains the upper 1 has gained around 150 mL in the lower one has drained around disease since arrival from the operating room. The patient's condition is critical for now. Colostomy was noted. Surgical wound site is dry clean and intact. The patient has a VAC system attached to the surgical wound. The blood work from today showed a white cell count of 22.7. Hemoglobin was at 7.5. The most recent blood gas showed a pH of 7.14 with a pCO2 of 41 and pO2 of 109 after doing the necessity ventilator changes. The follow-up lactic acid level came back at 8.9. As such, the patient was given 2 doses of sodium bicarb, 50 mEq each. Condition is critical for now. On 11/16/2019, this patient is doing poorly. There has been significant decompensation in his condition following the surgery essentially related to septic shock and multisystem organ failure. Hemodynamically, the patient is profoundly hypotensive and he was unable to recover his blood pressure despite aggressive fluid resuscitation including colloids and crystalloids. For now the patient is on physiologic dose of vasopressin, epinephrine is running at 0.28 g per KG per minute and levo fed is running at 0.11 g per KG per minute. The patient remains on a bicarb infusion at the rate of 100 mL an hour. We have D5 water mixed with the 150 mEq of sodium bicarbonate. He has not produced any urine output. He remains profoundly acidotic. Lactic acid level is more than 24. The morning blood cultures showed a pH of 6.8 with a pCO2 of 24 and pO2 of 129. The patient remains on a mechanical ventilator assist control mode at the rate of 34 with a tidal volume of 450 and FiO2 of 60% with a PEEP of 5. White cell count is 29. Hemoglobin was at 7.4. There is no significant electrodes imbalance including a potassium level of 6, bicarb level less than 5, calcium level is down to 6.2, phosphorus level is up to 12.0. LFTs are abnormal consistent with shock. VICKI drains are in place. Colostomy site is viable at this point in time. Surgical wound site is dry clean and intact. The patient is postop day #2. I do not think the patient will survive this septic shock. Contacted the family. The son is at the bedside. I elected discussion with them. CODE STATUS was overnight changed to DO NOT RESUSCITATE and we are going to proceed with comfort care measures baseline above-mentioned comorbidities. Objective - Vital Signs Vital signs: Vital Signs Temp 95.6 F L 11/16/19 08:00 Pulse 80 11/16/19 10:30 Resp 34 H 11/16/19 10:30 BP 98/37 11/16/19 08:30 Pulse Ox 94 L 11/15/19 22:00 Intake & Output 11/15/19 11/16/19 11/16/19 18:59 06:59 18:59 Intake Total 6930.054 4357.860 1404.011 Output Total 235 430 140 Balance 6695.054 3927.860 1264.011 Weight 83.5 kg 89.6 kg Intake: IV 6221.20 2979.44 928.48 Albumin Human 5% 250 ml 500 In Empty Bag 1 bag @ 250 mls/hr IVPB ONCE ONE Rx#: [id number] Anidulafungin 100 mg In 100 Sodium Chloride 0.9% 100 ml @ 84 mls/hr IVPB DAILY INDU Rx#:[id number] Cefepime 2 gm In Sodium 100 100 Chloride 0.9% 100 ml @ 200 mls/hr IVPB Q12H [facility] Rx#:[id number] Dextrose 5% in Water 1, 600 2400 800 000 ml @ 200 mls/hr IV . Q5H45M INDU with Sodium Bicarb (1 Meq/ml) 150 ml Rx#:[id number] Pressure Bag 66 24 Sodium Chloride 0.9% 1, 1660 240 80 000 ml @ 30 mls/hr IV . Q24H IN[facility] Rx#:[id number] Sodium Chloride 0.9% 1, 1000 000 ml @ 999 mls/hr IV . Q1H1M ONE Rx#:[id number] Sodium Chloride 0.9% 2, 2000 000 ml @ 999 mls/hr IV . Q2H1M ONE Rx#:[id number] Sodium Chloride 0.9% 50 61.20 73.44 24.48 ml @ 0.04 UNITS/MIN 6.12 mls/hr IVPB .Q8H20M INDU with Vasopressin 20 unit Rx#:[id number] metroNIDAZOLE-NS PMX 500 200 100 mg In Saline 1 100ml.bag @ 100 mls/hr IVPB Q8HR [facility] Rx#:[id number] Intake, IV Titration 708.854 758.420 475.531 Amount EPINEPHrine 4 mg In 250.000 725.951 250 Dextrose 5% in Water 250 ml @ 0.01 MCG/KG/MIN 3. 131 mls/hr IV .Q24H [facility] Rx#:[id number] Norepinephrine 8 mg In 458.854 32.469 225.531 Sodium Chloride 0.9% 250 ml @ 0.05 MCG/KG/MIN 8. 117 mls/hr IV .Q24H [facility] Rx#:[id number] Blood Product 0 620 Rc As-1 Unit 0 310 [id number] Output: Gastric Drainage 0 Drainage 230 375 140 Right Lower Abdomen 100 115 80 Right Upper Abdomen 130 260 60 Urine 5 55 0 Other: Voiding Method Indwelling Catheter Indwelling Catheter Indwelling Catheter ABP, PAP, CO, CI - Last Documented Arterial Blood Pressure 101/50 - Exam Gen. appearance the patient is sedated, comfortable likely distress. Orogastric and orotracheal tube are both in place. He has a right internal jugular triple- lumen catheter in place. Head exam was generally normal. There was no scleral icterus or corneal arcus. Mucous membranes were dry, the patient has an NG tube in place Neck was supple and without jugular venous distension, thyromegaly, or carotid bruits. Carotids were easily palpable bilaterally. There was no adenopathy. Lungs were clear to auscultation and percussion, and with normal diaphragmatic excursion. No wheezes or rales were noted. Cardiac exam revealed the PMI to be normally situated and sized. The rhythm was regular and no extrasystoles were noted during several minutes of auscultation. The first and second heart sounds were normal and physiologic splitting of the s econd heart sound was noted. There were no murmurs, rubs, clicks, or gallops. Abdominal exam revealed a mid abdominal incision and the wound is dry clean and intact and a VAC system has been applied to the surgical wound. Bowel sounds are absent. Colostomy site is nonfunctional at this point in time. The tissue itself seems to be viable and healthy for now. No direct tenderness, no rebound tenderness, no guarding, no ascites. Extremities reveal chronic ulceration lower extremities bilaterally with diminished pulses. No cyanosis or clubbing. There is no open wounds or cellulitis in the lower extremities. There is edema in all 4 extremities for now. Neurologic the patient is sedated, comfortable. Not grimacing to any painful stimulation for now. Not following any commands for now. A full neurologic exam cannot be done for now. - Labs CBC & Chem 7: 11/16/19 04:08 11/16/19 04:08 Labs: Abnormal Lab Results - Last 24 Hours (Table) 11/15/19 11/15/19 11/15/19 Range/Units 12:02 12:46 13:04 WBC (3.8-10.6) k/uL RBC (4.30-5.90) m/uL Hgb (13.0-17.5) gm/dL Hct (39.0-53.0) % MCV (80.0-100.0) fL MCHC (31.0-37.0) g/dL RDW (11.5-15.5) % Plt Count (150-450) k/uL Neutrophils # (Manual) (1.3-7.7) k/uL Metamyelocytes # (Man) (0) k/uL Myelocytes # (Manual) (0) k/uL Macrocytosis ABG pH (7.35-7.45) ABG pCO2 (35-45) mmHg ABG pO2 (83-108) mmHg ABG HCO3 (21-25) mmol/L ABG Total CO2 (19-24) mmol/L ABG O2 Saturation (94-97) % ABG Lactic Acid (0.5-1.6) mmol/L Sodium 147 H (137-145) mmol/L Potassium (3.5-5.1) mmol/L Chloride 116 H (98-107) mmol/L Carbon Dioxide 8 L* (22-30) mmol/L BUN 22 H (9-20) mg/dL Creatinine 1.85 H (0.66-1.25) mg/dL Glucose 123 H (74-99) mg/dL POC Glucose (mg/dL) 151 H (75-99) mg/dL Plasma Lactic Acid Fredrick 17.7 H* (0.7-2.0) mmol/L Calcium 6.7 L (8.4-10.2) mg/dL Phosphorus (2.5-4.5) mg/dL Magnesium (1.6-2.3) mg/dL AST (17-59) U/L ALT (4-49) U/L Total Protein (6.3-8.2) g/dL Albumin (3.5-5.0) g/dL Crossmatch 11/15/19 11/15/19 11/15/19 Range/Units 16:11 16:13 16:13 WBC 27.1 H (3.8-10.6) k/uL RBC 2.28 L (4.30-5.90) m/uL Hgb 6.6 L* (13.0-17.5) gm/dL Hct 26.8 L (39.0-53.0) % MCV 117.4 H D (80.0-100.0) fL MCHC 24.5 L (31.0-37.0) g/dL RDW (11.5-15.5) % Plt Count 588 H (150-450) k/uL Neutrophils # (Manual) (1.3-7.7) k/uL Metamyelocytes # (Man) (0) k/uL Myelocytes # (Manual) (0) k/uL Macrocytosis Marked A ABG pH (7.35-7.45) ABG pCO2 (35-45) mmHg ABG pO2 (83-108) mmHg ABG HCO3 (21-25) mmol/L ABG Total CO2 (19-24) mmol/L ABG O2 Saturation (94-97) % ABG Lactic Acid (0.5-1.6) mmol/L Sodium (137-145) mmol/L Potassium (3.5-5.1) mmol/L Chloride (98-107) mmol/L Carbon Dioxide (22-30) mmol/L BUN (9-20) mg/dL Creatinine (0.66-1.25) mg/dL Glucose (74-99) mg/dL POC Glucose (mg/dL) 110 H (75-99) mg/dL Plasma Lactic Acid Fredrick >24.0 H* (0.7-2.0) mmol/L Calcium (8.4-10.2) mg/dL Phosphorus (2.5-4.5) mg/dL Magnesium (1.6-2.3) mg/dL AST (17-59) U/L ALT (4-49) U/L Total Protein (6.3-8.2) g/dL Albumin (3.5-5.0) g/dL Crossmatch 11/15/19 11/15/19 11/15/19 Range/Units 16:45 16:58 19:58 WBC (3.8-10.6) k/uL RBC (4.30-5.90) m/uL Hgb (13.0-17.5) gm/dL Hct (39.0-53.0) % MCV (80.0-100.0) fL MCHC (31.0-37.0) g/dL RDW (11.5-15.5) % Plt Count (150-450) k/uL Neutrophils # (Manual) (1.3-7.7) k/uL Metamyelocytes # (Man) (0) k/uL Myelocytes # (Manual) (0) k/uL Macrocytosis ABG pH <6.80 L* (7.35-7.45) ABG pCO2 33 L (35-45) mmHg ABG pO2 152 H (83-108) mmHg ABG HCO3 5 L* (21-25) mmol/L ABG Total CO2 6 L (19-24) mmol/L ABG O2 Saturation (94-97) % ABG Lactic Acid (0.5-1.6) mmol/L Sodium (137-145) mmol/L Potassium (3.5-5.1) mmol/L Chloride (98-107) mmol/L Carbon Dioxide (22-30) mmol/L BUN (9-20) mg/dL Creatinine (0.66-1.25) mg/dL Glucose (74-99) mg/dL POC Glucose (mg/dL) 153 H (75-99) mg/dL Plasma Lactic Acid Fredrick (0.7-2.0) mmol/L Calcium (8.4-10.2) mg/dL Phosphorus (2.5-4.5) mg/dL Magnesium (1.6-2.3) mg/dL AST (17-59) U/L ALT (4-49) U/L Total Protein (6.3-8.2) g/dL Albumin (3.5-5.0) g/dL Crossmatch See Detail 11/15/19 11/15/19 11/15/19 Range/Units 23:20 23:20 23:20 WBC 28.3 H (3.8-10.6) k/uL RBC 2.64 L (4.30-5.90) m/uL Hgb 7.9 L (13.0-17.5) gm/dL Hct 30.6 L (39.0-53.0) % MCV 116.1 H (80.0-100.0) fL MCHC 25.9 L (31.0-37.0) g/dL RDW 15.9 H (11.5-15.5) % Plt Count (150-450) k/uL Neutrophils # (Manual) (1.3-7.7) k/uL Metamyelocytes # (Man) (0) k/uL Myelocytes # (Manual) (0) k/uL Macrocytosis Marked A ABG pH (7.35-7.45) ABG pCO2 (35-45) mmHg ABG pO2 (83-108) mmHg ABG HCO3 (21-25) mmol/L ABG Total CO2 (19-24) mmol/L ABG O2 Saturation (94-97) % ABG Lactic Acid (0.5-1.6) mmol/L Sodium 146 H (137-145) mmol/L Potassium 5.5 H (3.5-5.1) mmol/L Chloride 111 H (98-107) mmol/L Carbon Dioxide <5 L* (22-30) mmol/L BUN 21 H (9-20) mg/dL Creatinine 2.66 H (0.66-1.25) mg/dL Glucose 164 H (74-99) mg/dL POC Glucose (mg/dL) 188 H (75-99) mg/dL Plasma Lactic Acid Fredrick (0.7-2.0) mmol/L Calcium 6.3 L* (8.4-10.2) mg/dL Phosphorus (2.5-4.5) mg/dL Magnesium (1.6-2.3) mg/dL AST (17-59) U/L ALT (4-49) U/L Total Protein (6.3-8.2) g/dL Albumin (3.5-5.0) g/dL Crossmatch 11/15/19 11/16/19 11/16/19 Range/Units 23:20 04:08 04:08 WBC 29.1 H (3.8-10.6) k/uL RBC 2.57 L (4.30-5.90) m/uL Hgb 7.4 L (13.0-17.5) gm/dL Hct 29.9 L (39.0-53.0) % MCV 116.3 H (80.0-100.0) fL MCHC 24.6 L (31.0-37.0) g/dL RDW 15.6 H (11.5-15.5) % Plt Count (150-450) k/uL Neutrophils # (Manual) 23.20 H (1.3-7.7) k/uL Metamyelocytes # (Man) 0.87 H (0) k/uL Myelocytes # (Manual) 1.75 H (0) k/uL Macrocytosis Marked A ABG pH (7.35-7.45) ABG pCO2 (35-45) mmHg ABG pO2 (83-108) mmHg ABG HCO3 (21-25) mmol/L ABG Total CO2 (19-24) mmol/L ABG O2 Saturation (94-97) % ABG Lactic Acid >24.0 H* (0.5-1.6) mmol/L Sodium (137-145) mmol/L Potassium 6.0 H (3.5-5.1) mmol/L Chloride 108 H (98-107) mmol/L Carbon Dioxide <5 L* (22-30) mmol/L BUN 22 H (9-20) mg/dL Creatinine 2.22 H (0.66-1.25) mg/dL Glucose 219 H (74-99) mg/dL POC Glucose (mg/dL) (75-99) mg/dL Plasma Lactic Acid Fredrick (0.7-2.0) mmol/L Calcium 6.2 L* (8.4-10.2) mg/dL Phosphorus 12.0 H* (2.5-4.5) mg/dL Magnesium 2.4 H (1.6-2.3) mg/dL AST 394 H (17-59) U/L ALT 354 H (4-49) U/L Total Protein 3.9 L (6.3-8.2) g/dL Albumin 1.7 L (3.5-5.0) g/dL Crossmatch 11/16/19 11/16/19 11/16/19 Range/Units 04:08 04:15 05:30 WBC (3.8-10.6) k/uL RBC (4.30-5.90) m/uL Hgb (13.0-17.5) gm/dL Hct (39.0-53.0) % MCV (80.0-100.0) fL MCHC (31.0-37.0) g/dL RDW (11.5-15.5) % Plt Count (150-450) k/uL Neutrophils # (Manual) (1.3-7.7) k/uL Metamyelocytes # (Man) (0) k/uL Myelocytes # (Manual) (0) k/uL Macrocytosis ABG pH <6.80 L* (7.35-7.45) ABG pCO2 24 L (35-45) mmHg ABG pO2 129 H (83-108) mmHg ABG HCO3 4 L* (21-25) mmol/L ABG Total CO2 4 L (19-24) mmol/L ABG O2 Saturation 97.1 H (94-97) % ABG Lactic Acid (0.5-1.6) mmol/L Sodium (137-145) mmol/L Potassium (3.5-5.1) mmol/L Chloride (98-107) mmol/L Carbon Dioxide (22-30) mmol/L BUN (9-20) mg/dL Creatinine (0.66-1.25) mg/dL Glucose (74-99) mg/dL POC Glucose (mg/dL) 243 H (75-99) mg/dL Plasma Lactic Acid Fredrick >24.0 H* (0.7-2.0) mmol/L Calcium (8.4-10.2) mg/dL Phosphorus (2.5-4.5) mg/dL Magnesium (1.6-2.3) mg/dL AST (17-59) U/L ALT (4-49) U/L Total Protein (6.3-8.2) g/dL Albumin (3.5-5.0) g/dL Crossmatch 11/16/19 Range/Units 08:24 WBC (3.8-10.6) k/uL RBC (4.30-5.90) m/uL Hgb (13.0-17.5) gm/dL Hct (39.0-53.0) % MCV (80.0-100.0) fL MCHC (31.0-37.0) g/dL RDW (11.5-15.5) % Plt Count (150-450) k/uL Neutrophils # (Manual) (1.3-7.7) k/uL Metamyelocytes # (Man) (0) k/uL Myelocytes # (Manual) (0) k/uL Macrocytosis ABG pH (7.35-7.45) ABG pCO2 (35-45) mmHg ABG pO2 (83-108) mmHg ABG HCO3 (21-25) mmol/L ABG Total CO2 (19-24) mmol/L ABG O2 Saturation (94-97) % ABG Lactic Acid (0.5-1.6) mmol/L Sodium (137-145) mmol/L Potassium (3.5-5.1) mmol/L Chloride (98-107) mmol/L Carbon Dioxide (22-30) mmol/L BUN (9-20) mg/dL Creatinine (0.66-1.25) mg/dL Glucose (74-99) mg/dL POC Glucose (mg/dL) 279 H (75-99) mg/dL Plasma Lactic Acid Fredrick (0.7-2.0) mmol/L Calcium (8.4-10.2) mg/dL Phosphorus (2.5-4.5) mg/dL Magnesium (1.6-2.3) mg/dL AST (17-59) U/L ALT (4-49) U/L Total Protein (6.3-8.2) g/dL Albumin (3.5-5.0) g/dL Crossmatch Microbiology - Last 24 Hours (Table) 11/09/19 16:29 Blood Culture - Final Blood No Growth after 144 hours 11/15/19 03:40 Gram Stain - Preliminary Sputum Sputum Culture - Preliminary Assessment and Plan Plan: 1 shock with profound hypotension , not responding to fluids pressors antibiotics and aggressive resuscitation. The patient currently remains in shock and multisystem organ failure. This is related to septic shock secondary to bowel perforation and intra-abdominal contamination with fecal material. 2 intra-abdominal abscess and fecal peritonitis with sigmoid wall necrosis due to perforated diverticulitis and small bowel necrosis. The patient is currently postop day #2 The patient is post exploratory laparotomy, lysis of adhesions, small bowel enterectomy, sigmoid colon resection with bowel necrosis, creation of a colostomy, abdominal peritoneal lavage with a total of 6 L and drainage of fecal peritonitis of 2.5 L. Currently NG tube is in place. The patient is nothing by mouth for now. Surgical wound site is dry clean and intact. VICKI drains are also in place. 3 acute lactic acidosis, lactic acid level is more than 24 with a serum bicarbonate less than 5 and a pH of 6.8. 4 acute hypoxic respiratory failure currently intubated on a mechanical ventilator. 5 acut kidney injury, improved, however, currently as the patient is postop, the patient is producing minimal urine output. The creatinine is on the rise at 2.2. 6 altered mental status when underlying component of dementia, and the the patient is completely unresponsive 7 diabetes mellitus, maintained oral hypoglycemics with poor compliance, currently off the insulin drip and the patient will be utilizing size. Coverage for blood sugar control 8 alzheimer's dementia 9 acute leukocytosis secondary to above 10 History of hypertension 11 diarrhea likely secondary to enteral feeding and the C. diff evaluation on 2 separate occasions were negative 12 4.6 cm distal abdominal aortic aneurysm extending to the aortic bifurcation and involving the common iliac arteries with indwelling BILATERAL ILIAC ENDOLUMINAL STENT GRAFT, Unchanged in the most recent CAT scan of the abdomen and pelvis 13 peripheral vascular disease 14 troponin leak, consider Ischemia type 2, the troponin peaked at 2.25 15 acute shock liver secondary to hypotension , recovered 16 CHF with ischemic cardiomyopathy and ejection fraction of 30-35% in addition to old OK involving the anteroseptal and apical segments of the heart and left ventricle consistent with EKG findings. 17 oropharyngeal candidiasis in addition to Layne and the stool in the urine currently on Eraxis Plan Condition is extremely critical Treatment is futile. The patient will certainly pass away with shock and multisystem organ failure.. I have elected discussion with the family and the son is at the bedside. We are proceeding with comfort care measures. This is a critically care evaluation and this evaluation was done in 45 minutes. This included patient evaluation and discussion with the family at the bedside. I'm proceeding with comfort care measures on this patient.
--- NOTE | 2019-11-16 21:31 | P.DS ---
Providers Date of admission: 10/21/19 17:11 Expected date of discharge: 11/16/19 Attending physician: Kaiden Fernandes Consults: 10/21/19 17:11 Consult Physician Routine Consulting Provider: Marcin Kirk Consult Reason/Comments: Cardiac evaluation, elevated troponin Do you want consulting provider notified?: Yes Consult Physician Stat Consulting Provider: Bella Shell Consult Reason/Comments: critical care Do you want consulting provider notified?: Already Contacted 10/22/19 09:56 Consult Physician Routine Consulting Provider: Avtar Madrigal Consult Reason/Comments: MITA Do you want consulting provider notified?: Already Contacted 10/22/19 23:04 Consult Physician Urgent Consulting Provider: Bess Quintero Consult Reason/Comments: possible small bowel obstruction Do you want consulting provider notified?: Already Contacted 10/29/19 09:29 Consult Physician Urgent Consulting Provider: Shilpa Jose Consult Reason/Comments: sedation off >24 hours with no response Do you want consulting provider notified?: Yes 11/04/19 07:11 Consult Physician Routine Consulting Provider: Shilpa Jose Consult Reason/Comments: Neuroogy coverage Do you want consulting provider notified?: Yes 11/09/19 13:21 Consult Physician Routine Consulting Provider: Lavon Brown Consult Reason/Comments: fever Do you want consulting provider notified?: Yes Primary care physician: Adelso [facility] Course: nterval history: 79-year-old male with PMH of diabetes mellitus on oral hypoglycemics, hypertension presents the ED for altered mentation. Apparently, patient was visited by his nurse who noted an extremely high blood glucose which prompted his hospital visit. Patient is altered and he is unable to provide any meaningful history. Majority of documentation was obtained from chart review and discussion with his son. Apparently, patient has been confused and disoriented which is progressively been worsening over the past 2 weeks. His son reports that the patient fell a week ago and did not seek medical attention. Patient lives with his who is suffering from advanced Alzheimer's dementia and is currently in hospice. According to the son, patient drinks 4 L of soda on a daily basis. Son reports that patient is noncompliant with her diabetic diet. In the ED, vital signs showed a T low of 97.5 Fahrenheit, pulse of 102, tachypnea with respiratory rate of 28, BP of 85/49 and 89% on room air. CBC showed leukocytosis of 11 and MCV of 124.1. ABG showed pH of 7, pCO2 19, bicarbonate of 8. CMP showed sodium of 116, potassium of 5.7, chloride of 74, bicarbonate of 8, BUN 33, creatinine 2.18, glucose greater than 1875. Troponin was 0.881 with EKG showing sinus tachycardia. Urinalysis shows 4+ glucose and trace blood. Acetone was negative. CT brain was negative for hemorrhage but showed slightly hyperdense left MCA compared to right. Chest x-ray showed possible right lower lobe infiltrate. Patient is admitted to ICU for sepsis, troponin elevation and diabetic ketoacidosis. Intubated. Patient developed ischemic hepatitis. Sepsis. Also developed bowel obstruction-that corrected on its own. Seen by neurology. Patient's felt to have anoxic brain injury. Patient was extubated on November 01. Patient regained a fever. IV antifungal was added subsequently cefepime and vancomycin started. On November 13 patient taken to the operating room. Found to have ischemic small bowel, intra-abdominal abscess, fecal peritonitis, sigmoid colon necrosis due to perforated diverticulitis. Small bowel antrectomy 2.5 feet distal jejunum was done with primary anastomosis and sigmoid colon resection was done. And a descending colostomy was created. Patient went back on the ventilator had had to be put back on her vasopressin and levo fed drip. Today-ICU. Patient succumbed underlying conditions and Consultants: Dr. Shell from critical care Dr. Dhaliwal from general surgery Dr. Brown from ID Dr. Kelsey from neurology Dr. Mcqueen from GI Dr. Madrigal from nephrology INVESTIGATIONS, reviewed in the clinical context: White count 22.7 hemoglobin 7.5 platelets 636 potassium 4.7 bun 24 creatinine 1.24 albumin 1.6 Previous testing: White count 11 hemoglobin 13.7 platelets 383 Sodium 116, bicarb 8, bun 33, creatinine 2.18 glucose 1875 troponin I 0.88 1 COVID-19 PCR-not detected computed tomography scan of the brain without contrast-no acute degenerative changes Ultrasound kidney-limited exam 2-D echocardiogram-EF 30-35%, anteroseptal apical hypokinesia AST 3453, ALT 1264, computed tomography scan of the abdomen and pelvis without contrast-dilated multiple loops of small bowel some free fluid in the paracolic gutter bilateral lower lobe pulmonary infiltrates, fusiform 4.4 cm lower abdominal aortic ane urysm with aortoiliac endograft multiple diverticula of the sigmoid colon. Mild wall thickening of the ascending colon. Blood cultures from October 20-negative Abdominal x-ray-October 25--contrast has passed through to thecolon EEG suggestive of encephalopathy, computed tomography scan of the brain-on October 28-chronic changes Sputum culture from November 06, stool culture from November 04, urine culture from November 03 and sputum culture from October 27 all growing Layne albicans Computed tomography scan abdomen and pelvis-November 08-bilateral lower lobe airspace consolidation slightly increased, multiple peripheral hepatic irregular hypodensity areas, splenic hypodensity unchanged, distended small bowel Cause of : Ischemic bowel disease Assessment: -acute nonketotic hyperosmolar diabetes with severe hyperglycemia, POA -Acute small bowel obstruction, and distal jejunal clinically improved, NG tube suction discontinued.- tube feeding started. Recurrence of acute bowel obstruction today on November 13. NG tube putting out feculent matter. -Acute hypoxic respiratory failure requiring mechanical ventilator extubated on November 01 -Acute metabolic encephalopathy-improving though slowly -Alzheimer's dementia -Pseudohyponatremia from severe hyperglycemia -4.4 cm distal abdominal aortic aneurysm with the endoluminal stent graft -Peripheral arterial disease -Acute shock liver secondary to hypotensive-corrected -Chronic congestive heart failure from systolic dysfunction EF 30-35% -Sepsis with septic shock, possible community acquired pneumonia -Non-ST elevation DC likely type II from demand ischemia, POA -Acute kidney injury likely ATN and prerenal- corrected -Possibly chronic kidney disease -essential hypertension -Pneumonia suspect gram-negative organism -New onset atrial fibrillation. -Anoxic brain slow improvement -Stage II pressure ulcer on the coccyx -Severe diarrhea-negative for C. diff. possibly from 2 feeding improved -Bilateral critical care myopathy -November 13 patient taken to the operating room. Found to have ischemic small bowel, intra-abdominal abscess, fecal peritonitis, sigmoid colon necrosis due to perforated diverticulitis. Small bowel antrectomy 2.5 feet distal jejunum was done with primary anastomosis and sigmoid colon resection was done. And a descending colostomy was created. Disposition: Patient Plan - Discharge Summary Discharge Rx Participant: No New Discharge Prescriptions: No Action DULoxetine HCL [Cymbalta] 60 mg PO DAILY Donepezil [Aricept] 5 mg PO HS #30 tab Cholecalciferol [Vitamin D3 (25 Mcg = 1000 Iu)] 1,000 unit PO DAILY Lisinopril-Hctz 20-12.5 mg [Zestoretic 20-12.5] 1 tab PO BID Pantoprazole [Protonix] 40 mg PO DAILY #30 tablet. Pravastatin Sodium [Pravachol] 40 mg PO DAILY Linagliptin [Tradjenta] 5 mg PO DAILY HYDROcodone/APAP 5-325MG [Pickerel 5-325] 1 tab PO TID PRN PRN Reason: Pain metFORMIN HCL [metFORMIN HCL ER Osmotic] 500 mg PO BID glipiZIDE [Glucotrol] 5 mg PO AC-BID Diclofenac Sodium [Voltaren Gel] 2 gram TOPICAL QID Zolpidem [Ambien] 5 mg PO HS PRN PRN Reason: Insomnia Cyanocobalamin (Vitamin B-12) [Vitamin B-12] 1,000 mcg PO DAILY Discharge Medication List DULoxetine HCL [Cymbalta] 60 mg PO DAILY 05/13/18 [History] Donepezil [Aricept] 5 mg PO HS #30 tab 05/15/18 [Rx] Cholecalciferol [Vitamin D3 (25 Mcg = 1000 Iu)] 1,000 unit PO DAILY 07/27/18 [History] Lisinopril-Hctz 20-12.5 mg [Zestoretic 20-12.5] 1 tab PO BID 07/27/18 [History] Pantoprazole [Protonix] 40 mg PO DAILY #30 tablet. 07/28/18 [Rx] Cyanocobalamin (Vitamin B-12) [Vitamin B-12] 1,000 mcg PO DAILY 10/21/19 [History] Diclofenac Sodium [Voltaren Gel] 2 gram TOPICAL QID 10/21/19 [History] HYDROcodone/APAP 5-325MG [Pickerel 5-325] 1 tab PO TID PRN 10/21/19 [History] Linagliptin [Tradjenta] 5 mg PO DAILY 10/21/19 [History] Pravastatin Sodium [Pravachol] 40 mg PO DAILY 10/21/19 [History] Zolpidem [Ambien] 5 mg PO HS PRN 10/21/19 [History] glipiZIDE [Glucotrol] 5 mg PO AC-BID 10/21/19 [History] metFORMIN HCL [metFORMIN HCL ER Osmotic] 500 mg PO BID 10/21/19 [History] Follow up Appointment(s)/Referral(s): Adelso Riggs MD [Primary Care Provider] - 1-2 days Activity/Diet/Wound Care/Special Instructions: MARY LELEN/ECF Discharge Disposition: - Preliminary Cause of Preliminary Cause of : Ischemic bowel disease
--- NOTE | 2019-11-19 07:56 | CDI ---
Documentation Clarification Form Date: 11/19/19 From: Aida Randhawa Phone: If you have a question about this query, please contact Dayna Smith, Informatics Coordinator at [phone] between 8am and 5pm. Admit Date: 10/21/19 Discharge Date:11/16/19 Patient Name: Jace Hernandez Visit Number: [id number] ATTENTION: The Clinical Documentation Specialists (CDI) and [facility] Coding Staff appreciate your assistance in clarifying documentation. Please respond to the clarification below the line at the bottom and electronically sign. The CDI & [facility] Coding staff will review the response and follow-up if needed. Please note: Queries are made part of the Legal Health Record. If you have any questions, please contact the author of this message via ITS. Dear Dr. Fernandes The patient presented with the following: Acute nonketotic hyperosmolar diabetes and sepsis possibly related to community acquired pneumonia. History/Risk Factors: Pneumonia, septic shock, MITA, nonketotic hyperosmolar state Clinical Indicators: Confusion, Elevated WBC, sputum growing Lizabeth albicans, urine and stool also grew lizabeth albicans, perforated diverticulitis, intra- abdominal abscess, fecal peritonitis, sigmoid colon necrosis, small bowel necrosis due to adhesions. WBC: 11.0 Lactic acid: 11.7 Blood cultures: Preliminary fungal, no growth after 144 hours Vitals signs on admission: T. 97.5 on admit then dropped to 94.9 and 95.6 a few hours later, P. 102, R. 26, BP 85/49 Treatment: ID Consult: Sputum is showing Lizabeth albicans patient was noted to have more abdominal distention with initial concern for abdominal source of sepsis may be the likely source of this persistent fever versus a component of pneumonia. Antibiotics: IV Eraxis started on 11/08 IV Bolus: 2 liters NS bolus In your professional opinion, please clarify the suspected causative organism of the sepsis, if known: Lizabeth albicans Gram negative organism Other (please specify): Unable to determine CINTHIAD
--- NOTE | 2019-11-24 14:55 | CDI ---
Documentation Clarification Form Date: 12/01/19 From: Aida Randhawa Phone: If you have a question about this query, please contact Dayna Smith, Risk Control Product Liability Director at [phone] between 8am and 5pm. Admit Date: 10/21/19 Discharge Date: 11/16/19 Patient Name: Jace Hernandez Visit Number: [id number] ATTENTION: The Clinical Documentation Specialists (CDI) and [facility] Coding Staff appreciate your assistance in clarifying documentation. Please respond to the clarification below the line at the bottom and electronically sign. The CDI & [facility] Coding staff will review the response and follow-up if needed. Please note: Queries are made part of the Legal Health Record. If you have any questions, please contact the author of this message via ITS. Dear Dr Brown, The patient presented with the following: Acute nonketotic hyperosmolar diabetes and sepsis possibly related to community acquired pneumonia. History/Risk Factors: Pneumonia, septic shock, MITA, nonketotic hyperosmolar state Clinical Indicators: Confusion, Elevated WBC, sputum growing Lizabeth albicans, urine and stool also grew lizabeth albicans, perforated diverticulitis, intra- abdominal abscess, fecal peritonitis, sigmoid colon necrosis, small bowel necrosis due to adhesions. WBC: 11.0 Lactic acid: 11.7 Blood cultures: Preliminary fungal, no growth after 144 hours Vitals signs on admission: T. 97.5 on admit then dropped to 94.9 and 95.6 a few hours later, P. 102, R. 26, BP 85/49 Treatment: ID Consult: Sputum is showing Lizabeth albicans patient was noted to have more abdominal distention with initial concern for abdominal source of sepsis may be the likely source of this persistent fever versus a component of pneumonia. Antibiotics: IV Eraxis started on 11/08 IV Bolus: 2 liters NS bolus In your professional opinion, please clarify the suspected causative organism of the sepsis since appears to be multiple/conflicting organisms, if known: Lizabeth albicans Gram negative organism Other (please specify): Unable to determine Likely gram negative from abdominal source MTDD
== END 2019-11-16 15:25 | disposition expired | DRG 853 ==
LOC: EC 13:33 → 2SICU 17:11
PROVIDERS: ADMIT Hospitalist; ATTEND Hospitalist
PROC: 3E033XZ Introduction of Vasopressor into Peripheral Vein, Percutaneous Approach (ICD-10-PCS; 2019-10-22)
PROC: 5A1955Z Respiratory Ventilation, Greater than 96 Consecutive Hours (ICD-10-PCS; 2019-10-23)
PROC: 0BH17EZ Insertion of Endotracheal Airway into Trachea, Via Natural or Artificial Opening (ICD-10-PCS; 2019-10-23)
PROC: 02HV33Z Insertion of Infusion Device into Superior Vena Cava, Percutaneous Approach (ICD-10-PCS; 2019-10-23)
PROC: 0D9670Z Drainage of Stomach with Drainage Device, Via Natural or Artificial Opening (ICD-10-PCS; 2019-10-23)
PROC: 3E0336Z Introduction of Nutritional Substance into Peripheral Vein, Percutaneous Approach (ICD-10-PCS; 2019-10-26)
PROC: 05HF33Z Insertion of Infusion Device into Left Cephalic Vein, Percutaneous Approach (ICD-10-PCS; 2019-11-05)
PROC: 0DNW0ZZ Release Peritoneum, Open Approach (ICD-10-PCS; principal; 2019-11-15)
PROC: 0DBA0ZZ Excision of Jejunum, Open Approach (ICD-10-PCS; principal; 2019-11-15)
PROC: 0D1M0Z4 Bypass Descending Colon to Cutaneous, Open Approach (ICD-10-PCS; principal; 2019-11-15)
PROC: 0DTN0ZZ Resection of Sigmoid Colon, Open Approach (ICD-10-PCS; principal; 2019-11-15)
PROC: 5A1945Z Respiratory Ventilation, 24-96 Consecutive Hours (ICD-10-PCS; 2019-11-15)
PROC: 0BH17EZ Insertion of Endotracheal Airway into Trachea, Via Natural or Artificial Opening (ICD-10-PCS; 2019-11-15)
DX: A41.50 Gram-negative sepsis, unspecified (principal); E11.00 Type 2 diabetes mellitus with hyperosmolarity without nonketotic hyperglycemic-hyperosmolar coma (NKHHC); R65.21 Severe sepsis with septic shock; G92 Toxic encephalopathy; I21.A1 Myocardial infarction type 2; R40.2114 Coma scale, eyes open, never, 24 hours or more after hospital admission; R40.2314 Coma scale, best motor response, none, 24 hours or more after hospital admission; R40.2214 Coma scale, best verbal response, none, 24 hours or more after hospital admission; J69.0 Pneumonitis due to inhalation of food and vomit; J96.01 Acute respiratory failure with hypoxia; K72.01 Acute and subacute hepatic failure with coma; N17.0 Acute kidney failure with tubular necrosis; B37.1 Pulmonary candidiasis; K55.029 Acute infarction of small intestine, extent unspecified; K55.049 Acute infarction of large intestine, extent unspecified; J15.6 Pneumonia due to other Gram-negative bacteria; E11.52 Type 2 diabetes mellitus with diabetic peripheral angiopathy with gangrene; B37.89 Other sites of candidiasis; G93.1 Anoxic brain damage, not elsewhere classified; I13.0 Hypertensive heart and chronic kidney disease with heart failure and stage 1 through stage 4 chronic kidney disease, or unspecified chronic kidney disease; I50.42 Chronic combined systolic (congestive) and diastolic (congestive) heart failure; Z66 Do not resuscitate; Z51.5 Encounter for palliative care; Z20.828 Contact with and (suspected) exposure to other viral communicable diseases; K56.7 Ileus, unspecified; K56.52 Intestinal adhesions [bands] with complete obstruction; K76.3 Infarction of liver; G72.81 Critical illness myopathy; R57.1 Hypovolemic shock; L89.152 Pressure ulcer of sacral region, stage 2; E11.22 Type 2 diabetes mellitus with diabetic chronic kidney disease; F02.80 Dementia in other diseases classified elsewhere, unspecified severity, without behavioral disturbance, psychotic disturbance, mood disturbance, and anxiety; G30.9 Alzheimer's disease, unspecified; N18.3 Chronic kidney disease, stage 3 (moderate); I48.0 Paroxysmal atrial fibrillation; I71.4 Abdominal aortic aneurysm, without rupture; M06.9 Rheumatoid arthritis, unspecified; R18.8 Other ascites; E87.0 Hyperosmolality and hypernatremia; E87.3 Alkalosis; E87.1 Hypo-osmolality and hyponatremia; J98.11 Atelectasis; B37.0 Candidal stomatitis; B37.49 Other urogenital candidiasis; K57.20 Diverticulitis of large intestine with perforation and abscess without bleeding; D73.5 Infarction of spleen; E83.39 Other disorders of phosphorus metabolism; K76.0 Fatty (change of) liver, not elsewhere classified; K75.89 Other specified inflammatory liver diseases; D75.89 Other specified diseases of blood and blood-forming organs; E78.5 Hyperlipidemia, unspecified; E87.5 Hyperkalemia; E87.6 Hypokalemia; G89.29 Other chronic pain; M54.5 Low back pain; M25.559 Pain in unspecified hip; H91.90 Unspecified hearing loss, unspecified ear; I25.5 Ischemic cardiomyopathy; K12.30 Oral mucositis (ulcerative), unspecified; K80.20 Calculus of gallbladder without cholecystitis without obstruction; M19.90 Unspecified osteoarthritis, unspecified site; T46.4X5A Adverse effect of angiotensin-converting-enzyme inhibitors, initial encounter; T50.2X5A Adverse effect of carbonic-anhydrase inhibitors, benzothiadiazides and other diuretics, initial encounter; I87.2 Venous insufficiency (chronic) (peripheral); L53.8 Other specified erythematous conditions; R29.6 Repeated falls; R19.7 Diarrhea, unspecified; R94.31 Abnormal electrocardiogram [ECG] [EKG]; Z79.84 Long term (current) use of oral hypoglycemic drugs; Z79.899 Other long term (current) drug therapy; Z88.5 Allergy status to narcotic agent; Z88.0 Allergy status to penicillin; Z85.828 Personal history of other malignant neoplasm of skin; Z87.891 Personal history of nicotine dependence; Z91.11 Patient's noncompliance with dietary regimen; Z91.14 Patient's other noncompliance with medication regimen; Z87.01 Personal history of pneumonia (recurrent); Z96.642 Presence of left artificial hip joint; Z96.652 Presence of left artificial knee joint; Z87.828 Personal history of other (healed) physical injury and trauma
CPT/HCPCS: 36410; 36415; 36600; 51701; 70450; 71045; 74019; 74176; 74248; 76705; 76770; 76937; 80048; 80051; 80053; 80061; 80202; 81001; 82009; 82085; 82272; 82330; 82550; 82553; 82565; 82607; 82746; 82803; 82805; 82947; 83036; 83605; 83630; 83690; 83735; 83993; 84100; 84132; 84145; 84295; 84478; 84484; 84520; 85025; 85027; 85610; 85730; 86140; 86695; 86696; 86850; 86900; 86901; 86920; 87040; 87045; 87046; 87070; 87086; 87103; 87205; 87324; 87635; 88307; 93005; 93306; 93970; 94002; 94003; 94640; 95816; 96361; 96374; 96375; 99291